=== PATIENT | female | born 1985 | race Caucasian/White ===

== ENCOUNTER 2021-12-25 09:45 | Emergency (ER) | payer OTHER, SELFPAY ==
[2021-12-25 09:48] VITALS: PULSE 94; RESP 16; TEMP 36.8; O2SAT 99; BMI 24.5
--- NOTE | 2021-12-25 09:57 | ED_ITS ---
HPI - Extremity Injury (Lower) General Time Seen by Provider: 09:57 Date Seen: 12/25/21 Chief Complaint: Extremity Pain/Injury, Lower Stated Complaint: Fell down stairs, hurt knees Time Seen by Provider: 12/25/21 09:46 Source: patient and RN notes reviewed Mode of arrival: ambulatory Limitations: no limitations History of Present Illness HPI Narrative: Patient is a very pleasant 36-year-old female denies any possibility of who comes to the emergency for evaluation regarding bilateral knee trauma. 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 She initially hit them against the next step and then fell. She states that the left knee has some bruising and is painful but the right knee is really giving her a lot more trouble. She notes that the pain in the right knee is not only over the kneecap but is radiating superiorly and inferiorly. She has been able to ambulate but was limping quite a bit when I visualized her walking into exam room 5. She denies hitting her head or any other injury. She has not taken any medication is receptive to receiving ibuprofen at this time. Movement definitely increases her discomfort. No numbness or tingling. Related Data Home Medications Medication Instructions Recorded Confirmed No Known Home Medications 12/25/21 12/25/21 Allergies Allergy/AdvReac Type Severity Reaction Status Date / Time No Known Drug Allergies Allergy Verified 12/25/21 09:52 Review of Systems Narrative: Patient denies head injury or neck pain. No numbness or tingling. Prodromal symptoms. Simply slipped going up the stairs. [facility] Social History Smoking Status: Current every day smoker What tobacco products do you use: cigarettes Do you use any of these nicotine containing products: None Second hand tobacco smoke exposure: No How often do you have a drink containing alcohol: monthly or less How many standard drinks containing alcohol do you have on a typical day: 1 or 2 How often do you have six or more drinks on one occasion: Less than monthly AUDIT-C Alcohol total score: 2 Non-prescribed substance use: denies use service: No Exam Const: Vital Signs, click to edit/add: Vital Signs - 24 hr 12/25/21 09:48 Temperature 98.2 F Pulse Rate [Left P ulse Oximeter] 94 Respiratory Rate 16 Pulse Oximetry 99 Oxygen Delivery Me thod Room Air Documenting provider has reviewed patient's vital signs: yes Common normals: average body habitus and oriented x3 General appearance: cooperative, in distress (Tearful) and limp HENMT: Common normals: normocephalic Head and scalp: normocephalic Eye: General eye: normal appearance of both eyes Neck & C-Spine: Common normals: full ROM Resp: Common normals: normal respiratory effort Extremity: Other: Left patella with area of mild and localized swelling to kneecap. Linear. No surrounding erythema edema or edema. Right patella shows an area of erythema with some swelling approximately 2 cm in horizontal length by 1 cm in vertical height. No significant effusion or surrounding erythema. Neuro: Common normals: oriented x3 Other: Distally to kneecap sensation motor intact. Course Course Hospital Course: At this time patient stumbled on the steps and had blunt trauma to both patella. Will x-ray left knee with two view and right knee with three view. I have also ordered ibuprofen 600 mg p.o. Vital Signs Vital signs: Initial Vital Signs Temperature 98.2 F 12/25/21 09:48 Temperature Source Temporal Artery Scan 12/25/21 09:48 Pulse Rate 94 12/25/21 09:48 Pulse Rhythm 12/25/21 09:48 Pulse Strength 3+ Normal 12/25/21 09:48 Respiratory Rate 16 12/25/21 09:48 Pulse Oximetry 99 12/25/21 09:48 Oxygen Delivery Method 12/25/21 09:48 Vital Signs Temperature 98.2 F 12/25/21 09:48 Pulse Rate 94 12/25/21 09:48 Respiratory Rate 16 12/25/21 09:48 Pulse Oximetry 99 12/25/21 09:48 Oxygen Delivery Method 12/25/21 09:48 Temperature 98.2 F 12/25/21 09:48 Pulse Rate 94 12/25/21 09:48 Respiratory Rate 16 12/25/21 09:48 Pulse Oximetry 99 12/25/21 09:48 Oxygen Delivery Method 12/25/21 09:48 MDM - Extremity Injury (Lower) MDM Narrative Medical decision making narrative: 1. Soft tissue injury bilateral knees-continue ibuprofen as needed for discomfort. Ice to areas of pain. Knee immobilizer to the right leg as needed for comfort. Patches as needed for comfort. No work today. 2. Disposition- home. Note for work. Follow-up with orthopedics or primary MD for worsening symptoms. Medical Records Medical records narrative: No medical records to review Imaging Data Knees bilateral: Attestation: I have reviewed the pertinent imaging results. My impression: No obvious fracture Radiologist's impression: No obvious fracture Discharge Plan Discharge Clinical Impression: Soft tissue injury of right knee, Soft tissue injury of left knee Patient Disposition: Home, Self-Care Condition: Improved Additional Instructions: Continue to ice both knees. Knee immobilizer on the right for support. Crutches as needed. Follow-up with primary MD or Orthopedics for ongoing pain or difficulty walking. Return to the emergency room as needed. Ibuprofen 600 mg every 6-8 hours as needed. Alternatively Aleve 2 tablets every 12 hours may be used. Do not use these medications in conjunction with each other. Prescriptions: No Action No Known Home Medications Stand Alone Forms: [employer] Info Instructions
--- NOTE | 2021-12-25 10:01 | CRLHL7_ITS ---
For Patients: As a result of the Cures Act, medical imaging exams and procedure reports are released immediately into your electronic medical record. You may view this report before your referring provider. If you have questions, please contact your health care provider. Indication: Fall with knee trauma right greater than left Technique: Left knee 2 views Comparison: None Findings: Bones: Alignment is normal. No fractures or bone lesions. Joint spaces: No joint effusion. Joint spaces are well maintained. No degenerative changes. Soft tissues: Unremarkable. Impression: No sign of acute injury. Dictated by Aidan Vallejo MD @ 12/25/2021 10:28:29 AM (Electronically Signed)
--- NOTE | 2021-12-25 10:01 | CRLHL7_ITS ---
For Patients: As a result of the Cures Act, medical imaging exams and procedure reports are released immediately into your electronic medical record. You may view this report before your referring provider. If you have questions, please contact your health care provider. Indication: Fall with knee trauma right greater than left Technique: Right knee two views Comparison: None Findings: Bones: Alignment is normal. No fractures or bone lesions. Joint spaces: No joint effusion. Joint spaces are well maintained. No degenerative changes. Soft tissues: Unremarkable. Impression: No sign of acute injury. Dictated by Aidan Vallejo MD @ 12/25/2021 10:29:18 AM (Electronically Signed)
[2021-12-25] MEDS: IBUPROFEN 200 MG TABLET 600 MG PO (10:09)
== END 2021-12-25 11:32 | disposition home or self-care (01) ==
PROVIDERS: Emergency Provider Family Medicine
DX: M25.562 Pain in left knee (principal); M25.561 Pain in right knee; W10.8XXA Fall (on) (from) other stairs and steps, initial encounter
CPT/HCPCS: 73560; 73562; 99283; A9270

== ENCOUNTER 2022-01-09 10:36 | Outpatient (RCR) | payer OTHER, SELFPAY | END 2022-02-19 14:28 | disposition home or self-care (01) | PROVIDERS: Visit Provider Orthopaedic Surgery Sports Medicine | DX: S89.91XA Unspecified injury of right lower leg, initial encounter (principal); Z51.89 Encounter for other specified aftercare | CPT/HCPCS: 97162 ==

== ENCOUNTER 2022-02-03 23:13 | Emergency (ER) | payer OTHER, SELFPAY ==
[2022-02-03 23:19] VITALS: BP 115/73; PULSE 105; RESP 16; TEMP 37.2; O2SAT 97; BMI 24.2
[2022-02-03 23:30] VITALS: PULSE 90; RESP 18; O2SAT 99
--- NOTE | 2022-02-03 23:30 | CRLHL7_ITS ---
For Patients: As a result of the Cures Act, medical imaging exams and procedure reports are released immediately into your electronic medical record. You may view this report before your referring provider. If you have questions, please contact your health care provider. Indication: Trauma. Technique: Right knee radiograph, 3 views. Comparison: None. Findings/Impression: Bones: Alignment is normal. No fractures or bone lesions. No sign of acute injury. Joint spaces: Unremarkable. Soft tissues: Unremarkable. Dictated by Darinel Campoverde MD @ 02/03/2022 11:47:58 PM (Electronically Signed)
--- NOTE | 2022-02-03 23:49 | ED_ITS ---
HPI - General Adult General Chief complaint: Extremity Pain/Injury, Lower Stated complaint: Knee injury, swollen and bruise Time Seen by Provider: 02/03/22 23:48 Source: patient Limitations: no limitations History of Present Illness HPI narrative: 36-year-old female coming in today complaining of right knee pain. States that her dogs tripped her up and she fell down the stairs on her hip in right knee. She complains of right knee pain. Denies any hip pain. Denies hitting her head or other injuries. She did have a previous knee injury and has an MRI scheduled this week. Related Data Home Medications Medication Instructions Recorded Confirmed acetaminophen 325 mg capsule 650 mg PO Q6H PRN 01/06/22 02/03/22 (Tylenol) ibuprofen 400 mg tablet 400 mg PO Q8H 01/06/22 02/03/22 Allergies Allergy/AdvReac Type Severity Reaction Status Date / Time No Known Drug Allergies Allergy Verified 02/03/22 23:23 Review of Systems Status of ROS: Reports: 6 or more systems reviewed and unremarkable except as noted in History and below [facility] Social History Smoking Status: Current every day smoker What tobacco products do you use: cigarettes Do you use any of these nicotine containing products: None Second hand tobacco smoke exposure: No How often do you have a drink containing alcohol: 4 or more times a week How many standard drinks containing alcohol do you have on a typical day: 3 or 4 How often do you have six or more drinks on one occasion: Daily or almost daily AUDIT-C Alcohol total score: 9 Non-prescribed substance use: denies use service: No Exam Narrative: Exam Narrative: Well-nourished well-developed patient in no acute distress. Alert and oriented. Answers questions appropriately. Mood and affect are appropriate. HEENT: Normocephalic atraumatic. Pupils are equally round reactive to light. Extraocular muscles are intact. Conjunctivae are moist without any icterus noted. Extremities: Bilateral lower extremities are without edema. Normal DP and PT pulses. Patient has superficial abrasion on the anterior right knee. She has mild swelling of the anterior right knee just distal to the patella. Patella appears to be intact without significant tenderness. She has no tenderness at the quadriceps insertion. There is not appear to be significant joint effusion present. There is no valgus or varus laxity. Anterior drawer is negative. Patient has generalized tenderness throughout the entire knee, from the patella on down. Skin: Well perfused without any obvious rashes. Const: Vital Signs, click to edit/add: Vital Signs - 24 hr 02/03/22 23:19 Temperature 99.0 F Pulse Rate [Left P ulse Oximeter] 105 H Respiratory Rate 16 Blood Pressure [Ri ght Upper Arm] 115/73 Pulse Oximetry 97 Oxygen Delivery Me thod Room Air Course Course Hospital Course: X-ray of the knee was done and was unremarkable. Vital Signs Vital signs: Initial Vital Signs Temperature 99.0 F 02/03/22 23:19 Temperature Source Temporal Artery Scan 02/03/22 23:19 Pulse Rate 105 H 02/03/22 23:19 Respiratory Rate 16 02/03/22 23:19 Blood Pressure 115/73 02/03/22 23:19 Blood Pressure Mean 87 02/03/22 23:19 Blood Pressure Position Sitting 02/03/22 23:19 Pulse Oximetry 97 02/03/22 23:19 Oxygen Delivery Method 02/03/22 23:19 Vital Signs Temperature 99.0 F 02/03/22 23:19 Pulse Rate 105 H 02/03/22 23:19 Respiratory Rate 16 02/03/22 23:19 Blood Pressure 115/73 02/03/22 23:19 Pulse Oximetry 97 02/03/22 23:19 Oxygen Delivery Method 02/03/22 23:19 Temperature 99.0 F 02/03/22 23:19 Pulse Rate 105 H 02/03/22 23:19 Respiratory Rate 16 02/03/22 23:19 Blood Pressure 115/73 02/03/22 23:19 Pulse Oximetry 97 02/03/22 23:19 Oxygen Delivery Method 02/03/22 23:19 Medical Decision Making MDM Narrative Medical decision making narrative: 36-year-old female with knee injury. We discussed symptomatic treatment. We discussed keeping her appointment as scheduled for MRI. Discussed icing [id number] NSAIDs. She had no other questions Imaging Data Knee x-ray: Attestation: I have reviewed the pertinent imaging results. My impression: No acute findings Radiologist's impression: Right knee radiograph, 3 views. Comparison: None. Findings/Impression: Bones: Alignment is normal. No fractures or bone lesions. No sign of acute injury. Joint spaces: Unremarkable. Soft tissues: Unremarkable. Discharge Plan Discharge Clinical Impression: Injury of knee Patient Disposition: Home, Self-Care Condition: Stable Additional Instructions: Elevate the knee as much as possible. Ice 20 minutes at a time 3-4 times per day, do not apply ice directly to skin. Okay to take ibuprofen or Tylenol as directed/as needed for discomfort. Activity as tolerated. Prescriptions: No Action ibuprofen 400 mg tablet 400 mg PO Q8H acetaminophen [Tylenol] 325 mg capsule 650 mg PO Q6H PRN Follow Up/Referrals: Provider,Not a Local [Primary Care Provider] - Stand Alone Forms: [employer] Info Instructions
--- OUTSIDE RECORDS SUMMARY | 2022-02-03 23:56 | XMS_ITS | Encounter Summary ---
:1985 Author Organization [facility] Address [address] [place] [address] Care Team Providers Name Role Phone Unavailable Primary Care Provider Unavailable Encounter Details Date Type Department Care Team Description 02/19/2016 Hospital Encounter HX [facility] [place] Jg Soria M.D. [address] [place] [phone] (Wo rk) Social History Tobacco Use Types Packs/Day Years Used Date Smoking Tobacco: Never Assessed Sex Assigned at Date Recorded Not on file documented as of this encounter Last Filed Vital Signs Vital Sign Reading Time Taken Comments Blood Pressure 127/88 02/19/2016 1:57 PM CDT Pulse 98 02/19/2016 1:57 PM CDT Temperature - - Respiratory Rate - - Oxygen Saturation - - Inhaled Oxygen Concentration - - Weight 90.2 kg (198 lb 13.7 oz) 02/19/2016 1:57 PM CDT Height 169 cm (5' 6.54) 02/19/2016 1:57 PM CDT Body Mass Index 31.58 02/19/2016 1:57 PM CDT documented in this encounter Progress Notes Qasim Soria M.D. - 02/19/2016 1:49 PM CDT [id number] The patient presented here today for followup of weight loss. She reports doing well with the phentermine. She has since changed her diet significantly. She does report chronic intermittent constipation. She has been using [id number] medications for improvement. She denies any difficulty with sle eping, but she does have occasional lightheadedness. No tremor. No headaches, blurry vision is reported. PAST MEDICAL/SURGICAL HISTORY GERD. MEDICATIONS Phentermine. PHYSICAL EXAMINATION VITAL SIGNS: Temp 36.4, heart rate 98, BP 127/88. Weight of 90.2 kg. IMPRESSION/REPORT/PLAN Bcnjqu-vslsz-dtew-old female, past medical history significant for obesity, is seen here today for weight management. Patient did well on the phentermine. She will be completing her last month today. We have discussed the importance of continuing with the current diet and increase her activity to avoid regaining the weight back. She voiced understanding. She will be staying off the medications for the next 2 months and we will discuss whether or not we should resume this medication in the future. Follow up as needed. Qasim Soria M.D./guillermo Electronically Signed By: QASIM SORIA MD On: 03/05/2016 10:49 AM Source: [facility] MHSDOLBEYNONRADSYS Document Id: [id number] documented in this encounter Miscellaneous Notes Miscellaneous - Conversion, Historical Provider Ser - 06/23/2016 11:27 AM MANAGER PET *PRIOR AUTH Document Contains Addenda Addendum by EVELYNE WEINBERG LPN on June 30, 2016 11:51:13 MANAGER PET called [facility] pharmacy and spoke with pharmacist, states that it has been processed through just fine. From: A[place] DUVAL To: YADIRA Wilkerson Nurse; Sent: 06/23/2016 11:27:48 MANAGER PET Subject: *PRIOR AUTH Provider: Khalif Wilkerson Pharmacy: [facility] Medication: Hydromorphone HCL Comments: Prior auth needed. Please go to [email or web address]. Gan code: YCMXJN : 1985 Source: [facility] POWERCHART Document Id: [id number] Miscellaneous - Qasim Soria M.D. - 02/19/2016 8:22 PM CDT Ambulatory Discharge Medication List [facility] [address] [place], [place] [id number] Visit Information Name: RADHA BLANCHARD [facility] Number: [id number] Current Date: 02/19/2016 20:22:41 Attending Provider: QASIM SORIA MD Primary Care Provider: QASIM SORIA MD [phone] RADHA BLANCHARD has been given the following list of medications: Your Medications It is important to take your medications as directed. Use a pill box or chart to help remind you to take your medications. Please let your doctor or nurse know if you have problems taking your medications. Medication/Strength How to Take Indications/Special Instructions/Comments/Notes for Patient Medication Changes/Routing phentermine (phentermine 37.5 mg oral tablet) 1 Tablet(s), Oral, once a day x 30 day(s) Stop Taking the Following Medications: Medication list as of 02-19-16 20:22 Attention: If you have any medications at home that are not on this list, DO NOT take them until youcontact your provider for clarification. Give a copy of your medication list to your primary care provider. Update your medication list any time medications or doses are changed and carry your medication list at all times in case of emergency. Electronically Signed By: QASIM SORIA MD Signed On:19-FEB-2016 20:22:39 Additional Information: Source: [facility] POWERCHART Document Id: [id number] Miscellaneous - Qasim Soria M.D. - 02/19/2016 8:22 PM CDT Ambulatory Patient Summary [facility] [address] [place], [place] [id number] Visit Information Name: RADHA BLANCHARDN [facility] Number: [id number] Current Date: 02/19/2016 20:22:42 Physicians Attending Provider: QASIM SORIA MD Primary Care Provider: QASIM SORIA MD [phone] RADHA BLANCHARD has been given the following list of follow-up instructions, medication list, and patient education materials: Follow-up Instructions Your Medications Here is a list of your medications. It is important to take your medications as directed. Use a pillbox or chart to help remind you to take your medications. Please let your doctor or nurse know if you have problems taking your medications. Medication/Strength How to Take Indications/Special Instructions/Comments/Notes for Patient Medication Changes/Routing phentermine (phentermine 37.5 mg oral tablet) 1 Tablet(s), Oral, once a day x 30 day(s) Stop Taking the Following Medications: Medication list as of 02-19-16 20:22 Attention: If you have any medications at home that are not on this list, DO NOT take them until youcontact your provider for clarification. Give a copy of your medication list to your primary care provider. Update your medication list any time medications or doses are changed and carry your medication list at all times in case of emergency. Electronically Signed By: QASIM SORIA MD Signed On:19-FEB-2016 20:22:39 Your Allergies & Intolerances Substance Reaction Symptoms Category Comments No Known Allergies Drug Your Problem List Problem Status Onset Comments Disease Gastroesophageal Reflux (GERD ERMELINDA) Active Your Upcoming Appointments Date Time Location Provider No Appointments found Attention: Contact your local Clinic if further appointment detail needed. Consider Using Patient Online [facility] Patient Online [employer] is a secure online and Mobile application that lets you: ?? View lab and test results ?? View portions of your medical record including clinical notes, immunizations and discharge summaries ?? Request an appointment or medication refill ?? Review your appointment schedule ?? Send secure messages to your care team Its easy to create an account if you dont have one. Go to [email or web address] and click on Create Your Account. Then, follow the directions to complete the online form. Youll be asked for your [facility] number which you can find at the top of this document. 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 Entered On: 02/19/2016 13:58 CDT Performed On: 02/19/2016 13:57 CDT by RASHMI SALTER [facility] Intake Ambulatory Intake Additional Information : 135/90, 97 127/88, 98 Peripheral Pulse Rate : 98 /min Systolic Blood Pressure : 127 mmHg Diastolic Blood Pressure : 88 mmHg NIBP Mean : 101 mmHg RASHMI SALTER [facility] - 02/19/2016 13:59 CDT Chief Complaint : weightloss update Temperature Core : 36.4 DegC(Converted to: 97.5 DegF) (LOW) BP Location : Left upper extremity Blood Pressure Cuff Size : Regular Height : 169 cm(Converted to: 5 ft 7 inch(es), 67 inch(es)) Actual Weight : 90.2 kg(Converted to: 198 lb 14 oz) Weight Source : Standing scale Dosing Weight Clinic : 90.2 kg Clinic BSA : 2.06 Body Mass Index : 31.58 kg/m2 RASHMI SALTER [facility] - 02/19/2016 13:57 CDT General Info Information Given By : Patient Preferred Communication Mode : Verbal Languages : Qatari Is Patient Female and 13-50 no hysterectomy : Yes Status : Patient denies Are you ? : No RASHMI SALTER [facility] - 02/19/2016 13:57 CDT Subjective Pain Symptoms : No RASHMI SALTER [facility] - 02/19/2016 13:57 CDT Dependent Habits Exposure to Tobacco Smoke : Patient smokes, Other: occ alcohol Smoking Status : Current every day smoker Tobacco 2A : Yes Tobacco Use/Currently Using : Yes Tobacco Use/Last 30 Days : Yes Tobacco Use/Last 12 months : Yes Type : Cigarettes: Less than 20 per day Tobacco Use/Advised to Quit : Yes RASHMI SALTER [facility] - 02/19/2016 13:57 CDT Caffeine Use Grid Caffeine Use : None RASHMI SALTER [facility] 02/19/2016 13:57 CDT Recreational Drug Use Grid Drug Use : Current Type : Alcohol Route : Oral Frequency : Other: TWICE A MONTH RASHMI SALTER [facility] 02/19/2016 13:57 CDT [facility] Document Id: [id number] CDT!7 documented in this encounter Plan of Treatment Not on filedocumented as of this encounter Visit Diagnoses Not on filedocumented in this encounter
--- OUTSIDE RECORDS SUMMARY | 2022-02-03 23:56 | XMS_ITS | Encounter Summary ---
:1985 Author Organization [facility] Address [address] [place] [address] Care Team Providers Name Role Phone Unavailable Primary Care Provider Unavailable Encounter Details Date Type Department Care Team Description 05/12/2016 Hospital Encounter HX [facility] Augusto Parks M.D. [address] [place], [place] [address] (Wo rk) Social History Tobacco Use Types Packs/Day Years Used Date Smoking Tobacco: Every Day Sex Assigned at Date Recorded Not on file documented as of this encounter Last Filed Vital Signs Vital Sign Reading Time Taken Comments Blood Pressure 129/78 05/12/2016 2:35 PM ROLL OFF DRIVER Pulse 99 05/12/2016 2:35 PM ROLL OFF DRIVER Temperature - - Respiratory Rate 20 05/12/2016 2:35 PM ROLL OFF DRIVER Oxygen Saturation - - Inhaled Oxygen Concentration - - Weight 82.3 kg (181 lb 7 oz) 05/12/2016 2:35 PM ROLL OFF DRIVER Height 169 cm (5' 6.54) 05/12/2016 2:35 PM ROLL OFF DRIVER Body Mass Index 28.82 05/12/2016 2:35 PM ROLL OFF DRIVER documented in this encounter Progress Notes Bacilio Parks M.D. - 05/12/2016 2:30 PM CST [id number] CHIEF COMPLAINT/REASON FOR VISIT Hemorrhoids. HISTORY OF PRESENT ILLNESS Silvia is a 30-year-old, G5, P5, who has battled intermittent external hemorrhoids for years. She regularly has little bit of blood when she wipes and sometimes even looks like a fair amount of bleeding. She has not felt lightheaded or woozy. She can sometimes feel bulge. She will intermittently use Preparation-H. She is wondering what else can be done for this. CHRONIC PROBLEMS Reviewed. MEDICATIONS Reviewed. ALLERGIES None. SOCIAL HISTORY Smokes daily. PAST MEDICAL/SURGICAL HISTORY Procedure history reviewed. PHYSICAL EXAMINATION GENERAL: A 30-year-old female in no acute distress. VITAL SIGNS: Temperature is 36.3 degrees Celsius, pulse 99, respiratory rate 20, blood pressure 129/78, weight 82.3 kg. Body mass index 28.9. RECTAL: There are ttarq-yt-ovvfzcpi external hemorrhoids. None are thrombosed. There are no fissures, tears, other perianal lesions. SKIN: No perianal rash. IMPRESSION/REPORT/PLAN 1. External hemorrhoids, 2. Health maintenance plan. I discussed that I think if she were to use Preparation-H at least twicea day on a scheduled basis and if she even has bleeding after wiping after that, start xfof-tdz-ttkjlap fiber supplement of her choice daily and jbyg-hjh-pmvynqs, generic MiraLAX daily titrating to 1 lo iqh-xr-jfeptfw formed bowel movement. I think these will markedly improve within 1 to 2 months. We discussed that if she starts to fall away from that regimen or starts to become more constipated, these may recur, but at this point I do not think she needs to see a surgeon about them. I also do not think the degree of blood loss she is describing is enough to warrant laboratory work at this time. Sheis comfortable with that. If after 1 to 2 months of this full court press regimen does not cause improvement, she will make an appointment with General Surgery for definitive treatment as she is donehaving children. 3. Influenza and Pneumovax administered today. Encouraged smoking cessation. Note she is due for a physical. She will schedule that at her earliest convenience with Dr. Soria. Bacilio Parks M.D./guillermo Electronically Signed By: BACILIO PARKS MD On: 05/14/2016 08:05 AM Source: [facility] MHSDOLBEYNONRADSYS Document Id: [id number] OFF DRIVER documented in this encounter Miscellaneous Notes Miscellaneous - Conversion, Historical Provider Ser - 07/01/2016 11:24 AM ROLL OFF DRIVER *PRIOR AUTHORIZATION Document Contains Addenda Addendum by GAYLE CAMARENA MD, PhD on July 03, 2016 17:39:57 ROLL OFF DRIVER From: GAYLE CAMARENA MD, PhD To: YADIRA Camarena Nurse; Sent: 07/03/2016 17:39:57 ROLL OFF DRIVER Subject: RE: *PRIOR AUTHORIZATION Yes. The hydromorphone was denied by her insurance. Thanks. 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 Do you still want this rx filled? From: JOSUE LYNN ([facility] Bobbin Cleaner) To: YADIRA Dial Nurse; Sent: 07/01/2016 11:24:06 ROLL OFF DRIVER Subject: *PRIOR AUTHORIZATION Provider:Dr Camarena Pharmacy:[facility] Medication:HYDROMORPHONE HCL Comments: Prior authorization needed. Go to [employer] - Gan: [id number] :1985 Source: [facility] POWERCHART Document Id: [id number] Miscellaneous - Janett Schofield R.N. - 06/15/2016 3:59 PM CST Addendum by TERI DONIS RN on June 16, 2016 12:01:03 ROLL OFF DRIVER noted, thank you. Addendum by GAYLE CAMARENA MD, PhD on June 16, 2016 11:58:33 ROLL OFF DRIVER From: GAYLE CAMARENA MD, PhD To: [place] [facility] Nurse Line; BOBBI ASHBY RN MILKING MACHINE OPERATOR; Cc: [place] General Surgery Nurse; Sent: 06/16/2016 11:58:33 ROLL OFF DRIVER Subject: RE: She was admited to [place] overnight. Addendum by TERI DONIS RN on June 16, 2016 08:03:12 ROLL OFF DRIVER message was left for patient to call back. I will offer f/u with bobbi today. Addendum by BOBBI ASHBY RN MILKING MACHINE OPERATOR on June 16, 2016 07:55:23 ROLL OFF DRIVER From: BOBBI ASHBY RN MILKING MACHINE OPERATOR To: [place] [facility] Nurse Line; Cc: [place] General Surgery Nurse; GAYLE CAMARENA MD, PhD; Sent: 06/16/2016 07:55:23 ROLL OFF DRIVER Subject: RE: I will see her today please. Addendum by KIN BORJAS CMA on June 15, 2016 16:36:05 ROLL OFF DRIVER From: KIN BORJAS CMA ([place] General Surgery Nurse) To: GAYLE CAMARENA MD, PhD; Sent: 06/15/2016 16:36:05 ROLL OFF DRIVER Subject: FW: From: JANETT SCHOFIELD RN ([place] [facility] Nurse Line) To: [place] General Surgery Nurse; BOBBI ASHBY RN MILKING MACHINE OPERATOR; Sent: 06/15/2016 15:59:31 ROLL OFF DRIVER Pt calls stating she had a hemorrhoidectomy with Dr. Garner 2 weeks ago. she calls wondering if itis normal to still be bleeding. menses ended two days ago which lasted for four days. When asked about how much blood there has been, pt stated that when she stands over the toilet, she can see it dripping which is a bright red, with a yellowish discharge. Denies any shortness of breath, but did stateshe became dizzy after having a bowel movement this a.m, where she was in so much pain that she became dizzy afterward and had to lay down, but denies dizziness otherwise. Denies stomach cramping or distention. Please advise. Will call pt at # [phone]. Source: [employer]nex[employer] Document Id: [id number] Electronically signed by Conversion, [facility] Chick Room Supervisor [id number] at 10/12/2016 9:55 PM CDT Miscellaneous - Conversion, Historical Provider Ser - 05/27/2016 4:25 PM ROLL OFF DRIVER *General Message Document Contains Addenda Addendum by TRLEL BUNN on May 28, 2016 12:13:49 ROLL OFF DRIVER See other msgs. Closing message. From: ERA SMITH ( Call Center Injection Operator) To: Specialty Care Analyst; Sent: 05/27/2016 16:25:18 ROLL OFF DRIVER Subject: *General Message Caller Name/Relationship Vlad Blanchard [facility]/Wing Call Back # [phone] Reason For Call returning call to schedule appt with surgeon [facility] Document Id: [id number] Miscellaneous - Conversion, Historical Provider Ser - 05/27/2016 12:23 PM ROLL OFF DRIVER Surgery Document Contains Addenda Addendum by TRELL BUNN on May 27, 2016 16:04:33 ROLL OFF DRIVER Returned call to spouse awhile back aware we need to wait for the scheduling guidelines from nurse.Added to other msg. From: NADEEM DIEGO ( Call Center Injection Operator) To: Specialty Care Analyst; Sent: 05/27/2016 12:23:07 ROLL OFF DRIVER Subject: Surgery Caller Name/Relationship Vlad Blanchard/ [facility] Facility/Wing Call Back # [phone] Reason For Call Please see previous messages States his in a lot of pain and needs this procedure tank. Please call tank Source: [facility] POWERCHART Document Id: [id number] Miscellaneous - Conversion, Historical Provider Ser - 05/27/2016 7:58 AM ROLL OFF DRIVER *General Message Document Contains Addenda Addendum by TRELL BUNN on May 27, 2016 08:10:27 ROLL OFF DRIVER Returned call. Aware we received referral and awaiting response from nurse for scheduling guidelines. Closing message. From: NADEEM DIEGO ( Call Center Injection Operator) To: Specialty Care Analyst; Sent: 05/27/2016 07:58:47 ROLL OFF DRIVER Subject: *General Message Caller Name/Relationship Vlad Blanchard/ Facility/Wing Call Back # [phone] Reason For Call Pt was in the ER for Hemorrhoids and she Needs to set up an appt. with a Surgeon Source: [facility] M[place]ie JeanCHART Document Id: [id number] Miscellaneous - Radha Otto C.M.A. - 05/12/2016 3:52 PM CST MnVFC Eligibility MnVFC Eligibility Entered On: 05/12/2016 15:52 ROLL OFF DRIVER Performed On: 05/12/2016 15:52 ROLL OFF DRIVER by RADHA OTTO CMA MnV[facility] Eligibility Provided MnVFC eligibility information : No RADHA OTTO CMA - 05/12/2016 15:52 ROLL OFF DRIVER Source: [facility] POWERCHART Document Id: [id number] ROLL OFF DRIVER!3 OFF DRIVER Miscellaneous - Radha Otto C.M.A. - 05/12/2016 3:50 PM CST MnVFC Eligibility MnVFC Eligibility Entered On: 05/12/2016 15:50 ROLL OFF DRIVER Performed On: 05/12/2016 15:50 ROLL OFF DRIVER by RADHA OTTO CMA MnVFC Eligibility Provided MnVFC eligibility information : No BIANCA OTTORA [place] [facility] - 05/12/2016 15:50 ROLL OFF DRIVER Source: [facility] POWERCHART Document Id: [id number] ROLL OFF DRIVER!3 OFF DRIVER Miscellaneous - Bacilio Parks M.D. - 05/12/2016 3:38 PM CST Ambulatory Patient Summary [facility] [address] [place], [place] [id number] Visit Information Name: SILVIA BLANCHARD [facility] Number: [id number] Current Date: 05/12/2016 15:38:56 Physicians Attending Provider: BACILIO PARKS MD Primary Care Provider: SOFIE SORIA MD [id number] SILVIA BLANCHARD has been given the following list [...] Medication Changes/Routing phentermine (phentermine 37.5 mg oral capsule) 1 cap, Oral, once a day Stop Taking the Following Medications: Medication list as of 05-12-16 15:38 Attention: If you have any medications at home that are not on this list, DO NOT take them until youcontact your provider for clarification. Give a copy of your medication list to your primary care provider. Update your medication list any time medications or doses are changed and carry your medication list at all times in case of emergency. Electronically Signed By: BACILIO PARKS MD Signed On:12-MAY-2016 15:38:52 Your Allergies & Intolerances Substance Reaction Symptoms Category Comments No Known Allergies Drug Your Problem List Problem Status Onset Comments Disease Gastroesophageal Reflux (GERD ERMELINDA) Active Hemorrhoids External NOS Active Abuse Tobacco Smoking NOS Active Your Upcoming Appointments Date Time Location [...] if you dont have one. Go to [email or web address] and click on Create Your Account. Then, follow the directions to complete the online form. Youll be asked for your [facility] number which you can find at the top of this document. Your Goals/Additional instructions: Source: [facility] POWERCHART Document Id: [id number] OFF DRIVER Miscellaneous - Bacilio Parks M.D. - 05/12/2016 3:38 PM CST Ambulatory Discharge Medication List [address] [id number] Visit Information Name: BLANCHARDSERGEISILVIAADRIENNE MALIK [facility] Number: [id number] Current Date: 05/12/2016 15:38:56 Attending Provider: BACILIO PARKS MD Primary Care Provider: SOFIE SORIA MD [id number] SILVIA BLANCHARD has been given the following list of medications: Your Medications It is important to take your medications as directed. Use a pill box or chart to help remind you to take your medications. Please let your doctor or nurse know if you have problems taking your medications. Medication/Strength How to Take Indications/Special Instructions/Comments/Notes for Patient Medication Changes/Routing phentermine (phentermine 37.5 mg oral capsule) 1 cap, Oral, once a day Stop Taking the Following Medications: Medication list as of 05-12-16 15:38 Attention: If you have any medications at home that are not on this list, DO NOT take them until youcontact your provider for clarification. Give a copy of your medication list to your primary care provider. Update your medication list any time medications or doses are changed and carry your medication list at all times in case of emergency. Electronically Signed By: BACILIO PARKS MD Signed On:12-MAY-2016 15:38:52 Additional Information: Source: [facility] POWERCHART Document Id: [id number] OFF DRIVER Miscellaneous - Radha Otto C.M.A. 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 Intake/History Entered On: 05/12/2016 14:38 ROLL OFF DRIVER Performed On: 05/12/2016 14:35 ROLL OFF DRIVER by RADHA OTTO SOFA COVER INSPECTOR Intake Chief Complaint : Hemorrhoids Temperature Core : 36.3 DegC(Converted to: 97.3 DegF) (LOW) Peripheral Pulse Rate : 99 /min Respiratory Rate : 20 /min Systolic Blood Pressure : 129 mmHg Diastolic Blood Pressure : 78 mmHg NIBP Mean : 95 mmHg BP Location : Left upper extremity Blood Pressure Cuff Size : Regular Height : 169 cm(Converted to: 5 ft 7 inch(es), 67 inch(es)) Actual Weight : 82.3 kg(Converted to: 181 lb 7 oz) Weight Source : Standing scale Dosing Weight Clinic : 82.3 kg Clinic BSA : 1.97 Body Mass Index : 28.82 kg/m2 RADHA OTTO [facility] - 05/12/2016 14:35 ROLL OFF DRIVER General Info Information Given By : Patient Languages : Amharic Is Patient Female and 13-50 no hysterectomy : Yes Status : Patient denies Are you ? : No RADHA OTTO CMA - 05/12/2016 14:35 ROLL OFF DRIVER Subjective Pain Symptoms : Yes RADHA OTTO CMA - 05/12/2016 14:35 ROLL OFF DRIVER Pain Scale Pain Scale Verbal 0-10 : Open RADHA OTTO CMA - 05/12/2016 14:35 ROLL OFF DRIVER Pain Pain Assessment Grid Pain 1 Location : Other: Hemorrhoids Intensity : 4 RADHA OTTO CMA - 05/12/2016 14:35 ROLL OFF DRIVER Dependent Habits Exposure to Tobacco Smoke : Patient smokes, Other: occ alcohol Smoking Status : Current every day smoker Tobacco 2A : Yes Tobacco Use/Currently Using : Yes Tobacco Use/Last 30 Days : Yes Tobacco Use/Last 12 months : Yes Type : Cigarettes: Less than 20 per day Tobacco Use/Advised to Quit : Yes RADHA OTTO CMA - 05/12/2016 14:35 ROLL OFF DRIVER Caffeine Use Grid Caffeine Use : None RADHA OTTO [facility] - 05/12/2016 14:35 ROLL OFF DRIVER Recreational Drug Use Grid Drug Use : Current Type : Alcohol Route : Oral Frequency : Other: TWICE A MONTH RADHA OTTO [facility] - 05/12/2016 14:35 ROLL OFF DRIVER Source: [facility] j-Grab Document Id: [id number] ROLL OFF DRIVER!50 OFF DRIVER documented in this encounter Plan of Treatment Not on filedocumented as of this encounter Visit Diagnoses Not on filedocumented in this encounter
--- OUTSIDE RECORDS SUMMARY | 2022-02-03 23:56 | XMS_ITS | Encounter Summary ---
:1985 Author Organization [facility] Address [address] [place] [address] Care Team Providers Name Role Phone Unavailable Primary Care Provider Unavailable Encounter Details Date Type Department Care Team Description 05/27/2016 Hospital Encounter HX [facility] ED Mimi Vicente D.O. [address] [place] [phone] (Wo rk) Social History Tobacco Use Types Packs/Day Years Used Date Smoking Tobacco: Every Day Sex Assigned at Date Recorded Not on file documented as of this encounter Last Filed Vital Signs Vital Sign Reading Time Taken Comments Blood Pressure 139/77 05/27/2016 3:40 AM [facility] Pulse 110 05/27/2016 3:40 AM [facility] Temperature - - Respiratory Rate 18 05/27/2016 3:40 AM [facility] [facility] Oxygen Saturation - - Inhaled Oxygen Concentration - - Weight - - Height - - Body Mass Index - - documented in this encounter Discharge Summaries Mimi Vicente D.O. - 05/30/2016 12:05 PM CST ED Discharge Instructions [facility] [address] [facility] [place] [address] Name: SILVIA BLANCHARD Date of : 1985 12:00 AM Visit Date: 05/27/2016 3:31 AM [facility] Number: [id number] Address: [address] [place] [phone] Primary Care Provider: SOFIE VÁZQUEZ MD IMPORTANT: [facility] in [place] would like to thank you for allowing us to assist youwith your healthcare needs. The following includes patient education materials and information regarding your injury/illness. Diagnosis: Follow-Up Instructions: With: Address: When: *Follow Up with Surgery Within 2 - 4 days Comments: Symptomatic external hemorrhoids With: Address: When: SOFIE VÁZQUEZ [address] [place] [address] [phone] Business (1) Within As Needed Your Upcoming Appointments: Date Time Location Provider 06/02/2016 08:30 AMADO Wilkerson MD, Khalif Lino Patient Education Materials: Hemorrhoids,External A hemorrhoid is a local swelling of the veins around the rectum. These most often occur from repeated forceful straining during bowel movements or heavy lifting. It may also occur in the last few months of . A hemorrhoid feels like a soft lump. It may itch from time to time. When it is inflamed it becomes hard and very painful. Home Care: SITZ BATHS: Sit in a tub filled with about 6 inches of hot water. Allow the water to run in order tokeep it hot for a total of 10-15 minutes. Repeat this three times a day until pain is relieved. Keep your stools soft to avoid the need to strain when having a bowel movement. Unless another medicine was prescribed, try the following: IF YOU ARE CONSTIPATED: You may use gcnn-jkk-zzrpdxo laxatives such as MILK OF MAGNESIA (mild acting) or, DULCOLAX (if stronger action is needed). IF YOU ARE NOT CONSTIPATED but stools are hard, try taking Colace (docusate sodium) which is a stoolsoftener. This will soften stools without producing diarrhea. Drinking extra fluids may also help. The use of creams applied to the hemorrhoid itself, such as ANUSOL or PREPARATION H, will be helpfulto reduce pain and itching, and speed healing. Prevention: Avoid straining on the toilet by keeping stools soft. Increasing FIBER in your diet (fruits, cereals, vegetables and grains) will promote healthy bowel movement. If this is not working, you may use METAMUCIL and similar products. These are idea-dxh-yqxvbkn fiber supplements. You must drink extra fluids when taking these to avoid constipation. Follow Up with your doctor if you do not begin to respond to the above treatment within the next few days. Get Prompt Medical Attention if any of the following occur: ?? Large amount of rectal bleeding (more than 1 cup of blood in 24 hours) ?? Increasing rectal pain or rectal pain that continues for more than three days of treatment ?? Weakness, dizziness or fainting ?? Vomiting blood (red or black color) ?? [id number] Lennie Swain, [address] [place] [address], [place] [address]. All rights reserved. This information is not intended as a substitute for professional medical care. Always follow your healthcare professional's instructions. Consider Using Patient Online Services Patient Online [...] if you dont have one. Go to [email or web address] and click on Create Your Account. Then, follow the directions to complete the online form. Youll be asked for your [facility] number which you can find at the top of this document. ED Tests and Procedures: Order Sta tus Follow Up with Surgery Completed Discharge Prescriptions & Home Medications: Medication/Strength Dose Route Frequency Indications/Special Instructions/Comments/Notes oxyCODONE-acetaminophen (oxyCODONE-acetaminophen 5 mg-325 mg oral tablet) 1 tab(s) Oral every 6 hours as needed for Pain PYXIS DISCHARGE PACK No more than 4,000mg acetaminophen/24hrs phentermine (phentermine 37.5 mg oral capsule) 37.5 mg Oral once a day Comment: Attention: If you have any medications at home that are not on this list, DO NOT take them until youcontact your provider for clarification. Give a copy of your medication list to your primary care provider. Update your medication list any time medications or doses are changed and carry your medication list at all times in case of emergency. IMPORTANT: We examined and treated you today on an emergency basis only. This was not a substitute for, or an effort to provide, complete medical care. In most cases, you must let your doctor check youagain. Tell your doctor about any new or lasting problems. We cannot recognize and treat all injuries or illnesses in one Emergency Department visit. If you had special tests, such as EKG's or X- rays, we will review them again within 24 hours. We will call you if there are any new suggestions. Please follow the instructions above carefully. If you are a patient that is being discharged from the Emergency Department after receiving narcotics or other medications that may impair your judgment you may be a risk to yourself or others if you operate a motor vehicle. We recommend that you arrange a ride home with a responsible green party. LO Ward KRISTINA LYNN , or responsible green party have received this information and my questions have been answered. I have discussed any challenges I see with this plan with the nurse or physician. Patient Signature or Responsible Republican/Relationship Date Time Provider Signature Date Time IMPORTANT: We examined and treated you today on an emergency basis only. This was not a substitute for, or an effort to provide, complete medical care. In most cases, you must let your doctor check youagain. Tell your doctor about any new or lasting problems. We cannot recognize and treat all injuries or illnesses in one Emergency Department visit. If you had special tests, such as EKG's or X- rays, we will review them again within 24 hours. We will call you if there are any new suggestions. Please follow the instructions above carefully. If you are a patient that is being discharged from the Emergency Department after receiving narcotics or other medications that may impair your judgment you may be a risk to yourself or others if you operate a motor vehicle. We recommend that you arrange a ride home with a responsible green party. LO Ward KRISTINA LYNN , or responsible green party have received this information and my questions have been answered. I have discussed any challenges I see with this plan with the nurse or physician. Patient Signature or Responsible Republican/Relationship Date Time Provider Signature Date Time This document has images extracted. Please consider using Jimmy Fairly for all your patient education needs. Source: [employer] Document Id: [id number] STS' MODEL Mimi Vicente D.O. - 05/30/2016 12:05 PM CST ED Depart Summary [facility] Emergency Department / Urgent Care Clinical Discharge Summary PERSON INFORMATION Name SILVIA BLANCHARD Age 31 Years 1985 12:00 AM Sex Female Language Welsh PCP SOFIE VÁZQUEZ MD Marital Status Visit Id Visit Reason Hemorrhoids; Hemorrhoids Specialty Enc Type Emergency Med Service Emergency Medicine Referred by Track Group [facility] ED/UC Discharge 05/27/2016 4:47 AM Tracking Id [id number] Checkout 05/27/2016 4:47 AM Checkin 05/27/2016 3:31 AM Acuity 5 -Non Urgent Dispo Type * Discharged to Home or Self Care Arrival 05/27/2016 3:31 AM Reg Status Complete LOS 000 01:16 Address: [address] [place] [phone] Comment: PROVIDER INFORMATION Provider Role Provider Contact Time DEVI RAZA RN ED Nurse 05/27/16 03:37 MIMI VICENTE DO ED Provider 05/27/16 03:38 DEEPTI FOY C.N.A. ED Wood Heel Fitter Machine 05/27/16 04:01 DIAGNOSIS Comment: PATIENT EDUCATION INFORMATION Instructions: HEMORRHOIDS Follow up: With: Address: When: *Follow Up with Surgery Within 2 - 4 days Comments: Symptomatic external hemorrhoids With: Address: When: SOFIE VÁZQUEZ [address] [place] [phone] Business (1) Within As Needed Source: [employer] Document Id: [id number] STS' MODEL documented in this encounter ED Notes Devi Raza R.N. - 05/27/2016 4:47 AM CST ED Disposition Summary ED Disposition Summary Entered On: 05/27/2016 4:52 [facility] Performed On: 05/27/2016 4:47 [facility] by DEVI RAZA READING TEACHER Disposition Summary Present in Room During Exam/Procedure : Spouse Mode of Discharge : Ambulatory Transportation : Private vehicle Discharge From ED With : Home Med List Printed Discharge Instructions Given to Patient : Yes Patient Status at Discharge from ED : Improved Comment : pt recommended to use tuck pads and prep H DEVI RAZA RN - 05/27/2016 4:51 [employer]DEL Source: [employer] Document Id: [id number] ARTISTS' MODEL!9 STS' MODEL Devi Raza R.N. - 05/27/2016 4:47 AM CST ED Pain Assessment ED Pain Assessment Entered On: 05/27/2016 4:52 [facility]DEL Performed On: 05/27/2016 4:47 [facility] by DEVI RAZA RN Pain Assessment Pain Symptoms : Yes DEVI RAZA RN - 05/27/2016 4:52 [employer]DEL Source: [employer] Document Id: [id number] ARTISTS' MODEL!3 STS' MODEL Mimi Vicente D.O. - 05/27/2016 3:49 AM CST Hemorrhoids Patient: SILVIA BLANCHARD Age: 31 years Sex: Female : 1985 Author: MIMI VICENTE DO Attachments: None Basic Information History source: Patient. Arrival mode: Private vehicle. History limitation: None. Additional information: Chief Complaint from Nursing Triage Note : Chief Complaint Description 05/27/2016 3:35 [facility]ISTS[employer] MODEL Chief Complaint Description Pt reports she has hemorrhoids. Tonight, one was bleeding. She states she has many and they are painful. She is using prepiration H . History of Present Illness The patient presents with hemorrhoids. The onset was 1 weeks ago. The course/duration of symptoms isconstant and worsening. The degree of symptoms is moderate. There are exacerbating factors includingbowel movement, bearing down and movement. Therapy today: over the counter medications. Associated symptoms: none. Review of Systems Constitutional symptoms: No fever. Gastrointestinal symptoms: Rectal bleeding and rectal pain, but no abdominal pain, no vomiting, no diarrhea or no constipation. Musculoskeletal symptoms: No back pain. Neurologic symptoms: No headache. Health Status Allergies: Allergic Reactions (Selected) NKA. Past Medical/ Family/ Social History Medical history: Reviewed as documented in chart. Surgical history: Esophagogastroduodenoscopy ([id number]) on 08/12/2015 at 30 Years. Tubal ligation ([id number]) on 07/16/2011 at 26 Years.. Family history: No family history items have been selected or recorded.. Physical Examination Vital Signs: Vital Signs 05/27/2016 3:40 [facility]ISTS[employer] [facility]DEL Temperature Core 36.4 DegC LOW Peripheral Pulse Rate 110 /min HI Respiratory Rate 18 /min SpO2 98 % Systolic Blood Pressure 139 mmHg Diastolic Blood Pressure 77 mmHg , SpO2 05/27/2016 3:40 [facility]DEL SpO2 98 % . General: Alert. Skin: Warm and dry. Head: Normocephalic and atraumatic. Gastrointestinal: Soft, Nontender, Non distended and Rectal exam: Exam deferred, hemorrhoids. Medical Decision Making Rationale:Patient present with hemorrhoid pain over the past several days. Has been using preparation H but still in pain. Does take stool softener. Has had hemorrhoids since age 16. Rectal exam reveals several enlarged inflamed hemorrhoids. Tender to external palpation, no externalexam done. Recommend continued symptomatic care. Advised adding Sitz baths as well. Pain medication provided for break through pain. Follow up with general surgeon.. Impression and Plan Diagnosis hemorrhoids Plan Condition: Stable. Disposition: Discharged: to home. Prescriptions: Prescription [employer] Sales Representative Pharmacy: oxyCODONE-acetaminophen 5 mg-325 mg oral tablet (Prescribe): 1 tab(s), PO, q6hr, PRN: Pain, 6 tab(s), 0 Refill(s) oxyCODONE (Order Processing): 5 mg, PO, Once. Patient was given the following educational materials: HEMORRHOIDS, HEMORRHOIDS. Follow up with: SOFIE VÁZQUEZ Within As Needed, SOFIE VÁZQUEZ Within As Needed; *Follow Up with Surgery Within 2 - 4 days Symptomatic external hemorrhoids. Counseled: Patient, Regarding diagnosis, Regarding diagnostic results, Regarding treatment plan, Patient indicated understanding of instructions. Orders: Launch Orders Patient Care: Discharge ED Patient (Order Processing): 05/27/2016 4:39 ARTISTS' MODEL, Once. Electronically Signed By: MIMI VICENTE DO On: 05/30/2016 12:05 PM Modified by and Electronically Signed by: MIMI VICENTE DO On: 05/27/2016 04:40 AM Source: [facility] POWER[facility]ART Document Id: [id number]} STS' MODEL Devi Raza R.N. - 05/27/2016 3:35 AM CST ED Primary Assessment Document Has Been Updated ED Primary Assessment Entered On: 05/27/2016 4:51 ARTISTS[employer] MODEL Performed On: 05/27/2016 3:35 [facility] [facility]DEL by DEVI RAZA RN Reason For Visit (As Of: 05/27/2016 04:51:40 ARTISTS' MODEL) Problems(Active) Abuse Tobacco Smoking NOS (ICD-10-CM :Z72.0 ) Name of Problem: Abuse Tobacco Smoking NOS ; Recorder:DARIUS PARKS MD; Confirmation: Confirmed ; Classification: Medical ; Code: Z72.0 ; Contributor System: PowerChart ; Last Updated: 05/12/2016 15:21 ARTISTS' MODEL ; Life Cycle Date: 05/12/2016 ; Life Cycle Status: Active ; Responsible Provider: DARIUS PARKS MD; Vocabulary: ICD-10-CM Disease Gastroesophageal Reflux (GERD ERMELINDA) (ICD-10-CM :K21.9 ) Name of Problem: Disease Gastroesophageal Reflux (GERD ERMELINDA) ; Recorder: CHEO KHAN MD; Confirmation: Confirmed ; Classification: Medical ; Code: K21.9 ; Contributor System: [employer]lex[employer] ; Last Updated: 08/12/2015 10:33 CDT ; Life Cycle Status: Active ; Responsible Provider: CHEO KHAN MD; Vocabulary: ICD-10-CM Hemorrhoids External NOS (ICD-10-CM :K64.4 ) Name of Problem: Hemorrhoids External NOS ; Recorder: DARIUS PARKS MD; Confirmation: Confirmed ; Classification: Medical ; Code: K64.4 ; Contributor System: [employer] ; Last Updated: 05/12/2016 15:20 ARTISTS' MODEL ; Life Cycle Date: 05/12/2016 ; Life Cycle Status: Active ; Responsible Provider: DARIUS PARKS MD; Vocabulary: ICD-10-CM Diagnoses(Active) Hemorrhoids Date: 05/27/2016 ; Diagnosis Type: Reason For Visit ; Confirmation: Confirmed ; ClinicalDx: Hemorrhoids ; Classification: Medical ; Clinical Service: Emergency medicine ; Code: PNED ; Probability: 0 ; Diagnosis Code: [id number] Triage Chief Complaint Description : Pt reports she has hemorrhoids. Tonight, one was bleeding. She states she has many and they are painful. She is using prepiration H Mode of Arrival ED : Private vehicle Track : Medical Languages : Welsh Treatments Prior to Arrival : None Are you ? : No Is Patient Female and 13-50 no hysterectomy : Yes Status : Patient denies DEVI RAZA RN - 05/27/2016 4:48 [facility] [facility]DEL Pain Assessment Pain Symptoms : Yes DEVI RAZA RN 05/27/2016 4:48 [facility] [facility]DEL Pain Scale Pain Scale Verbal 0-10 : Open DEVI RAZA RN 05/27/2016 4:48 [facility]ISTS[employer] MODEL Pain Pain Assessment Grid Pain 1 Location : Other: rectal Intensity : 8 DEVI RAZA RN 05/27/2016 4:48 ARTISTS' MODEL DENNY DCP GENERIC CODE Tracking Acuity : 5 -Non Urgent Tracking Group : [facility] ED/ DEVI RAZA RN - 05/27/2016 4:48 ARTISTS' MODEL Respiratory Airway : Patent Respirations : Unlabored Respiratory Pattern : Regular DEVI RAZA RN 05/27/2016 4:48 ARTISTS' MODEL Cardiovascular Heart Rhythm : Regular Skin Color : Normal for ethnicity Skin Description : Dry Skin Temperature : Warm DEVI RAZA RN - 05/27/2016 4:48 ARTISTS' MODEL Neurological Last Well Time Known : Not applicable Level of Consciousness : Alert Orientation : Oriented x 3 Characteristics of Speech : Clear Neuro Patient Stated Symptoms : None DEVI RAZA RN 05/27/2016 4:48 ARTISTS' MODEL ED Psychosocial Affect/Behavior : Calm, Cooperative, Appropriate Domestic Abuse Concerns : None Behavioral Health Screen/Safety Assmt : No DEVI RAZA RN - 05/27/2016 4:48 ARTISTS' MODEL Gastrointestinal Nutrition ED : Adequate DEVI RAZA RN - 05/27/2016 4:48 ARTISTS' MODEL Musculoskeletal Fall Prevention Education Provided : DEVI PRADO RN - 05/27/2016 4:48 ARTISTS' MODEL Social Habits Exposure to Tobacco Smoke : Patient smokes, Other: occ alcohol Smoking Status : Current every day smoker Tobacco 2A : Yes Tobacco Use/Currently Using : Yes Tobacco Use/Last 30 Days : Yes Tobacco Use/Last 12 months : Yes Type : Cigarettes: Less than 20 per day Tobacco Use/Advised to Quit : No DEVI RAZA RN - 05/27/2016 4:48 ARTISTS' MODEL Alcohol Use Grid Alcohol Use : Yes Frequency : Occasionally DEVI RAZA RN - 05/27/2016 4:48 ARTISTS' MODEL Recreational Drug Use Grid Drug Use : Current Type : Alcohol Route : Oral Frequency : Other: TWICE A MONTH DEVI RAZA RN - 05/27/2016 4:48 ARTISTS' MODEL [facility] Document Id: [id number] ARTISTS' MODEL!65 STS' MODEL documented in this encounter Miscellaneous Notes Telephone Encounter - Conversion, Historical Provider Ser - 05/27/2016 8:09 AM CST FW: Follow Up with Surgery Document Contains Addenda Addendum by TRELL BUNN on May 28, 2016 12:13:37 ARTISTS' MODEL Closing message. Addendum by EVELYNE WEINBERG LPN on May 28, 2016 12:06:26 ARTISTS' MODEL From: EVELYNE WEINBERG LPN ( Surgery Nurse) To: Specialty Garde Manger; Sent: 05/28/2016 12:06:26 ARTISTS' MODEL Subject: RE: Follow Up with Surgery yes Addendum by TIMO VEGA on May 28, 2016 11:22:16 ARTISTS' MODEL From: TIMO VEGA ( Specialty Garde Manger) To: Surgery Nurse; Sent: 05/28/2016 11:22:16 ARTISTS' MODEL Subject: RE: Follow Up with Surgery appt scheduled. is patient aware? Addendum by EVELYNE WEINBERG LPN on May 28, 2016 09:53:32 ARTISTS' MODEL From: EVELYNE WEINBERG LPN ( Surgery Nurse) To: Specialty Garde Manger; Sent: 05/28/2016 09:53:32 ARTISTS' MODEL Subject: RE: Follow Up with Surgery states would like 06/05/[address] Gilliland for consult in [place]. please add patient to schedule, thanks. Addendum by TRELL BUNN on May 27, 2016 16:05:00 ARTISTS' MODEL From: TRELL BUNN ( Specialty Garde Manger) To: Surgery Nurse; Sent: 05/27/2016 16:05:00 ARTISTS' MODEL ! Subject: FW: Follow Up with Surgery See below, patient in a lot of pain. Caller Name/Relationship Vlad Blanchard/ [facility]/ Call Back # [phone] Reason For Call Please see previous messages States his in a lot of pain and needs this procedure tank. Please call tank Addendum by TRELL BUNN on May 27, 2016 15:39:08 ARTISTS' MODEL Called patient, no answer, unable to leave a message. Addendum by ROBERT BANSAL LPN on May 27, 2016 11:11:45 ARTISTS' MODEL From: ROBERT BANSAL LPN ( Surgery Nurse) To: Specialty Garde Manger; Sent: 05/27/2016 11:11:45 ARTISTS' MODEL Subject: FW: Follow Up with Surgery Addendum by ROBERT BANSAL LPN on May 27, 2016 11:11:35 ARTISTS' MODEL NEXT AVAIL From: TRELL BUNN ( Specialty Garde Manger) To: Surgery Nurse; Sent: 05/27/2016 08:09:03 ARTISTS' MODEL Subject: FW: Follow Up with Surgery Please see below, nothing available in requested time frame. Okay to schedule next available or sooner time? Follow Up Request: Follow Up with Surgery Date Requested: May 27, 2016 04:52:46 ARTISTS' MODEL Ed Location: [facility] ED ED Attending: MIMI VICENTE DO Order placed from order screen by provider Order Provider: --- Follow Up Time Frame: --- Reason for Request: --- Special Instructions: --- Consulting Physician: --- Consulting Department: --- Rule placed order based on provider documentaton Note: Order created from documentation in the Follow Up section Documented by: MIMI VICENTE DO Follow Up Within: 2 - 4 days Follow Up On: -- Follow Up Address: -- Follow Up Comments: Symptomatic external hemorrhoids [facility] Document Id: [id number] Miscellaneous - Devi Raza, R.N. - 05/27/2016 4:52 AM CST Valuables/Belongings Valuables/Belongings Entered On: 05/27/2016 4:52 ARTISTS' MODEL Performed On: 05/27/2016 4:52 ARTISTS' MODEL by DEVI RAZA RN Valuables/Belongings Belongings Sent Home With : pt Comment : sent with a take home of DEVI Barajas RN - 05/27/2016 4:52 ARTISTS' MODEL Source: [facility] Circle Document Id: [id number] ARTISTS' MODEL!4 STS' MODEL Miscellaneous - Conversion, Historical Provider Ser - 05/27/2016 4:47 AM ARTISTS' MODEL Coding Summary-Paper Based CODING DATE: 06/03/2016 FINAL [facility] STATUS: * Discharged to Home or Self Care PAYOR: Medicaid ADMIT DX: K64.9 Unspecified hemorrhoids REASON FOR VISIT DX: K64.9 Unspecified hemorrhoids FINAL DX: PRINCIPAL: K64.9 Unspecified hemorrhoids SECONDARY: F17.210 Nicotine dependence, cigarettes, uncomplicated PROCEDURES DOCTOR NAME DATE NOTE: The code number assigned matches the documented diagnosis and / or procedure in the patient's chart. However, the narrative phrase printed from the coding software may appear abbreviated, or result in slightly different terminology. Coded By: SELMA STEINBERG Date Saved: 06/03/2016 01:08 pm Source: [facility] Circle Document Id: [id number] documented in this encounter Plan of Treatment Not on filedocumented as of this encounter Visit Diagnoses Not on filedocumented in this encounter
--- OUTSIDE RECORDS SUMMARY | 2022-02-03 23:56 | XMS_ITS | Encounter Summary ---
:1985 Author Organization [facility] Address [address] [place] [address] Care Team Providers Name Role Phone Unavailable Primary Care Provider Unavailable Encounter Details Date Type Department Care Team Description 06/02/2016 Hospital Encounter HX [facility] Jeff Murray M.D., Ph.D. [address] [place] [address] (Wo rk) Social History Tobacco Use Types Packs/Day Years Used Date Smoking Tobacco: Every Day Sex Assigned at Date Recorded Not on file documented as of this encounter Last Filed Vital Signs Vital Sign Reading Time Taken Comments Blood Pressure 136/79 06/02/2016 8:36 AM CHARRER Pulse 86 06/02/2016 8:36 AM CHARRER Temperature - - Respiratory Rate 20 06/02/2016 8:36 AM CHARRER Oxygen Saturation - - Inhaled Oxygen Concentration - - Weight 81.6 kg (179 lb 14.3 oz) 06/02/2016 8:36 AM CHARRER Height 169 cm (5' 6.54) 06/02/2016 8:36 AM CHARRER Body Mass Index 28.57 06/02/2016 8:36 AM CHARRER documented in this encounter Progress Notes Gayle Camarena M.D., Ph.D. - 06/02/2016 8:32 AM CST [place] CHIEF COMPLAINT/REASON FOR VISIT Bleeding hemorrhoids. REFERRAL SOURCE Sofie Soria M.D. HISTORY OF PRESENT ILLNESS Mrs. Vasquez is a 31-year-old female who states that she has experienced external hemorrhoids sinceage 16. She has complaints of some constipation intermittently, but her biggest concern is pain withburning and itching around the perianal area over the last month. Two and half weeks ago, she developed spontaneous bright red blood per rectum in the shower which was quite startling for her. This resolved spontaneously but happened on a number of occasions with the last occasion being just days ago.She has had no previous abdominal operations but with a concerted effort, has lost over 70 pounds inthe last several months. She has 5 children and 4 of her deliveries were vaginal with the 5th being delivery. Mrs. Vasquez is quite healthy. She suffers from gastroesophageal reflux disease, but this is markedly improved since her dramatic weight loss. She also suffers from nicotine dependence. PHYSICAL EXAMINATION GENERAL: Patient sitting comfortably in a chair in no acute distress. Awake, alert, and oriented. Appropriately interactive. HEAD: Normocephalic. Facial features symmetric. ENT: Neck supple. No palpable masses. LUNGS: Clear to auscultation bilaterally. No wheezes, rales, or rhonchi. HEART: S1, S2 normal. No murmurs, gallops, or rubs. BACK: Normal. No costovertebral angle tenderness. ABDOMEN: Soft, nontender, nondistended. Patient has redundant skin consistent with significant weight loss. RECTUM: Perianal examination reveals the presence of external hemorrhoidal skin tags. The major lesion is anteriorly and encompasses approximately 1/3 of the circumference of the anal orifice. The patient also has fullness on the left posterior aspect of the anus. Digital rectal examination reveals fullness and redundant tissue to the left posterior aspect. There is no spontaneous bleeding. IMPRESSION/REPORT/PLAN 1. Bleeding internal hemorrhoids. 2. History of gastroesophageal reflux disease. 3. Nicotine dependence. Mrs. Vasquez is a 31-year-old female with symptomatic type 4 hemorrhoids. She recently experienced spontaneous bleeding which stopped but has recurred on numerous occasions over the last several weeks. She has tried tmrx-pbt-[id number] rectal suppositories and astringents without significant improvementin her symptoms. She states that she recalls having had a perianal skin tag since age 16. She has had 5 children. Physical examination is notable for internal and external hemorrhoids (type 4) with no contact bleeding or spontaneous bleeding. There is no palpable masses. I have discussed management options with Mrs. Vasquez. At this point of time, she is very eager to proceed with surgical intervention. Hemorrhoidectomy was discussed including the risks of injury to the internal sphincter muscle, pain and hemorrhoid recurrence. The patient wishes to proceed with hemorrhoidectomy and excision of perianal skin tags. A surgical date was chosen. The remaining risks including bleeding and infection were discussed. Informed consent was obtained. All of her questions wereanswered. This is a new patient consultation, 30 minutes, greater than 50% time spent in counseling. Gayle Camarena M.D., Ph.D./aos Electronically Signed By: GAYLE CAMARENA MD, PhD On: 07/06/2016 04:37 PM Source: [facility] MHSDOLBEYNONRADSYS Document Id: [id number] RER documented in this encounter Miscellaneous Notes Miscellaneous - Gayle Camarena M.D., Ph.D. - 06/07/2016 3:48 PM CHARRER Ambulatory Patient Summary [address] [id number] Visit Information Name: SILVIA VASQUEZ [facility] Number: [id number] Current Date: 06/07/2016 15:48:09 Physicians Attending Provider: GAYLE CAMARENA MD, PhD Primary Care Provider: SOFIE SORIA MD [id number] SILVIA VASQUEZ has been given the following list of follow-up instructions, medication list, and patient education materials: Follow-up Instructions Your Medications Here is a list of your medications. It is important to take your medications as directed. Use a pillbox or chart to help remind you to take your medications. Please let your doctor or nurse know if you have problems taking your medications. Medication/Strength Dose Route Frequency Indications/Special Instructions/Comments/Notes hydrocortisone topical (Anusol-HC 25 mg rectal suppository) 25 mg Per rectum two times a day for 5 Days belladonna-opium (belladonna-opium 16.2 mg-60 mg rectal suppository) 1 supp Per rectum every 12 hours as needed for pain lidocaine topical (Lidocaine Viscous 2% mucous membrane solution) 1 gordy Topical four times a day as needed for Pain(Severe) traMADol (Ultram 50 mg oral tablet) 50 mg Oral every 6 hours as needed for Pain docusate (Colace 100 mg oral capsule) 100 mg Oral two times a day ibuprofen (ibuprofen 200 mg oral tablet) 600 mg Oral every 6 hours as needed for Pain Take as neededfor pain or headache. Take with food or milk. acetaminophen (acetaminophen 500 mg oral tablet) 1,000 mg Oral every 6 hours as needed for pain Takeas needed for pain or headache. Attention: If you have any medications at home that are not on this list, DO NOT take them until youcontact your provider for clarification. Give a copy of your medication list to your primary care provider. Update your medication list any time medications or doses are changed and carry your medication list at all times in case of emergency. Electronically Signed By: GAYLE CAMARENA MD, PhD Signed On:07-JUN-2016 15:48:07 Your Allergies & Intolerances Substance Reaction Symptoms Category Comments No Known Allergies Drug Your Problem List Problem Status Onset Comments Disease Gastroesophageal Reflux (GERD ERMELINDA) Active Hemorrhoids External NOS Active Abuse Tobacco Smoking NOS Active Your Upcoming Appointments Date Time Location Provider 06/15/2016 09:00 TYRONE Camarena MD, Gayle Lino Attention: Contact your local Clinic if further [...] if you dont have one. Go to [email or web address] and click on Create Your Account. Then, follow the directions to complete the online form. Youll be asked for your [facility] number which you can find at the top of this document. Your Goals/Additional instructions: Source: [facility] POWERCHART Document Id: [id number] RER Miscellaneous - Gayle Camarena M.D., Ph.D. - 06/07/2016 3:48 PM CHARRER Ambulatory Discharge Medication List [facility] [address] [place], [place] [id number] Visit Information Name: SILVIA VASQUEZ [facility] Number: [id number] Current Date: 06/07/2016 15:48:09 Attending Provider: GAYLE CAMARENA MD, PhD Primary Care Provider: SOFIE SORIA MD [id number] SILVIA VASQUEZ has been given the following list of medications: Your Medications It is important to take your medications as directed. Use a pill box or chart to help remind you to take your medications. Please let your doctor or nurse know if you have problems taking your medications. Medication/Strength Dose Route Frequency Indications/Special Instructions/Comments/Notes hydrocortisone topical (Anusol-HC 25 mg rectal suppository) 25 mg Per rectum two times a day for 5 Days belladonna-opium (belladonna-opium 16.2 mg-60 mg rectal suppository) 1 supp Per rectum every 12 hours as needed for pain lidocaine topical (Lidocaine Viscous 2% mucous membrane solution) 1 gordy Topical four times a day as needed for Pain(Severe) traMADol (Ultram 50 mg oral tablet) 50 mg Oral every 6 hours as needed for Pain docusate (Colace 100 mg oral capsule) 100 mg Oral two times a day ibuprofen (ibuprofen 200 mg oral tablet) 600 mg Oral every 6 hours as needed for Pain Take as neededfor pain or headache. Take with food or milk. acetaminophen (acetaminophen 500 mg oral tablet) 1,000 mg Oral every 6 hours as needed for pain Takeas needed for pain or headache. Attention: If you have any medications at home that are not on this list, DO NOT take them until youcontact your provider for clarification. Give a copy of your medication list to your primary care provider. Update your medication list any time medications or doses are changed and carry your medication list at all times in case of emergency. Electronically Signed By: GAYLE CAMARENA MD, PhD Signed On:07-JUN-2016 15:48:07 Additional Information: Source: [facility] [employer]are Document Id: [id number] RER Miscellaneous - Conversion, Historical Provider Ser - 06/04/2016 1:43 PM CHARRER PCP Yang Document Contains Addenda Addendum by JANETH LEA RN on June 04, 2016 14:00:07 CHARRER Silvia gives permission verbally for nurse to talk with spouse Vlad. Reviewed use of pain medication. Plan is to use Percocet alternating with Tylenol and/or Ibuprofen as the Tramadol was not effective for the pain. No further questions from the spouse at this time. From: ERA SMITH ( Call Center Diesel Fleet Mechanic) To: Primary Care Team RN; Sent: 06/04/2016 13:43:25 CHARRER Subject: PCP Yang Caller Name/Relationship - Vlad Rust/[place] Call Back # [phone] Reason For Call Medication question Source: [facility] [employer] Document Id: [id number] Miscellaneous - Conversion, Historical Provider Ser - 06/02/2016 1:23 PM CHARRER Insurance Verification - hemorrhoidectomy From: JEET NICOLE ([facility] Clinic Record Retrieval Specialist/Prior Authorizations) Sent: 06/02/2016 13:23:10 CHARRER Subject: Insurance Verification - hemorrhoidectomy Pt has [place] [employer] ins, verified in [employer]. No prior auth is needed for OPS hemorrhoidectomy on 06/03/16.Payment is based on med nec and current ins at time of the procedure; this is not a guarantee of payment. Source: [facility] [employer] Document Id: [id number] Miscellaneous - Cathy Weinberg R.N. - 06/02/2016 10:01 AM CST scheduled for hemorrhoidectomy on 06/03/16 in [place] From: CATHY WEINBERG LPN ([facility] Surgery Nurse) To: YADIRA PreOp Nurse; SEMN Clinic Record Retrieval Specialist/Prior Authorizations; ISABELLE General Surgery Nurse; Sent: 06/02/2016 10:01:33 CHARRER Subject: scheduled for hemorrhoidectomy on 06/03/16 in [place] surgery work sheet faxed to [place]. per Dr. Camarena hemorrhoidectomy to be scheduled 06/03/16 in [place]. [place] surgical instructions given in clinic, verbalized understanding. Source: [facility] POWERCHART Document Id: [id number] Electronically signed by Conversion, [facility] Inserter Operator [id number] at 10/13/2016 3:14 AM CDT Miscellaneous - Cathy Weinberg R.N. - 06/02/2016 8:36 AM CST Adult Crime Scene Photographer Intake/History Adult Crime Scene Photographer Intake/History Entered On: 06/02/2016 8:39 CHARRER Performed On: 06/02/2016 8:36 CHARRER by CATHY WEINBERG LPN Intake Chief Complaint : ED follow up symptomatic external hemorrhoids Temperature Core : 36.6 DegC(Converted to: 97.9 DegF) Peripheral Pulse Rate : 86 /min Respiratory Rate : 20 /min Systolic Blood Pressure : 136 mmHg Diastolic Blood Pressure : 79 mmHg NIBP Mean : 98 mmHg BP Location : Left upper extremity Blood Pressure Cuff Size : Regular SpO2 : 97 % Oxygen Therapy : Room air Height : 169 cm(Converted to: 5 ft 7 inch(es), 67 inch(es)) Actual Weight : 81.6 kg(Converted to: 179 lb 14 oz) Weight Source : Standing scale Dosing Weight Clinic : 81.6 kg Clinic BSA : 1.96 Body Mass Index : 28.57 kg/m2 CATHY WEINBERG LPN - 06/02/2016 8:36 CHARRER General Info Information Given By : Patient Preferred Communication Mode : Verbal Languages : Prydeinig Is Patient Female and 13-50 no hysterectomy : Yes Status : Patient denies Are you ? : No CATHY WEINBERG LPN - 06/02/2016 8:36 CHARRER Subjective Pain Symptoms : No CATHY WEINBERG LPN - 06/02/2016 8:36 CHARRER Dependent Habits Exposure to Tobacco Smoke : Patient smokes, Other: occ alcohol Smoking Status : Current every day smoker Tobacco 2A : Yes Tobacco Use/Currently Using : Yes Tobacco Use/Last 30 Days : Yes Tobacco Use/Last 12 months : Yes Type : Cigarettes: Less than 20 per day Tobacco Use/Advised to Quit : Yes Alcohol Use : Yes CATHY WEINBERG LPN - 06/02/2016 8:36 CHARRER Caffeine Use Grid Caffeine Use : None CATHY WEINBERG LPN - 06/02/2016 8:36 CHARRER Recreational Drug Use Grid Drug Use : Current Type : Alcohol Route : Oral Frequency : Other: TWICE A MONTH CATHY WEINBERG LPN - 06/02/2016 8:36 CHARRER Source: [facility] [employer] Document Id: [id number] RER documented in this encounter Plan of Treatment Not on filedocumented as of this encounter Visit Diagnoses Not on filedocumented in this encounter
--- OUTSIDE RECORDS SUMMARY | 2022-02-03 23:56 | XMS_ITS | Clinical Summary ---
:1985 Author Organization [facility] Address [address] [place] [address] Care Team Providers Name Role Phone Elsewhere, Pcp Primary Care Provider Unavailable Source Comments Patient records contain information from all sites at [facility]. For routine questions regarding patient records, call [phone] during business hours, M-F 8:00 AM - 5:00 PM Central Time. Record requests for emergency care only can be directed to [phone] at any time.[facility] Allergies No known active allergies Medications Medication Sig Dispensed Refills Start Date End Date Status docusate sodium Take 1 capsule by 0 06/03/2016 Active (COLACE) 100 mg mouth 2 (two) capsule times a day. UNABLE TO FIND Apply 1 0 06/06/2016 Acti ve application topically 4 (four) times a day as needed. acetaminophen Take 1,000 mg by 0 Active (TYLENOL) 500 mg mouth every 6 tablet (six) hours as needed for pain. ibuprofen Take 800 mg by 0 Activ e (ADVIL,MOTRIN) 800 mg mouth every 6 tablet (six) hours as needed for pain. cyclobenzaprine Take 1 tablet (10 15 tablet 0 11/15/2021 Active (FLEXERIL) 10 mg mg total) by mouth tablet 3 (three) times a day as needed for muscle spasms. 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 Encounters Date Type Specialty Care Team Description 11/15/2021 Emergency Emergency Medicine Efren Galdamez C.N.PEmeka Pa in Back (Primary Dx) from Last 3 Months Immunizations Name Administration Dates Next Due DT, Pediatric 12/31/1997 DTP 11/17/1988, 1987, 1987, 0312/1987 H1N1 All Forms 03/01/2009 Hib (PRP-T) (ACTHIB, HIBERIX) 01/13/1989 Influenza, Unspecified 05/12/2016, 03/01/2009 MMR 01/08/1999, 11/17/1988 OPV 11/17/1988, 1987, 1987 PPSV23 05/12/2016 Tdap 11/01/2013 Social History Tobacco Use Types Packs/Day Years Used Date Smoking Tobacco: Every Day Tobacco Cessation: Ready to Quit: Not As ked; Counseling Given: Not Answered Alcohol Use Standard Drinks/Week Comments Yes 0 (1 standard drink = 0.6 oz pure alcoho l) Sex Assigned at Date Recorded Not on file Last Filed Vital Signs Vital Sign Reading Time Taken Comments Blood Pressure 145/89 11/15/2021 10:45 PM CDT Pulse 106 11/15/2021 10:45 PM CDT Temperature 36.7 ??C (98.1 ??F) 11/15/2021 10:45 PM CDT Respiratory Rate 18 11/15/2021 10:45 PM CDT Oxygen Saturation 100% 11/15/2021 10:45 PM CDT Inhaled Oxygen Concentration - - Weight 75.9 kg (167 lb 5.3 oz) 11/15/2021 10:53 PM CDT Height 170 cm (5' 6.93) 06/22/2016 10:01 PM 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 Body Mass Index 26.26 06/22/2016 10:01 PM 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 Plan of Treatment Health Maintenance Due Date Last Done Comments Cervical Cancer Screening 1985 HIV Screening 1987 Hepatitis B Vaccines (1 of 3 - 1987 3-dose series) Hepatitis C Screening 1987 Tobacco Cessation counseling 1987 Pneumococcal vaccine (0-64 years) 05/12/2017 05/12/2016 (2 - PCV) Depression Screening (Annual 05/03/2021 PHQ-2) COVID-19 Vaccine (3 - Booster for 07/01/2021 05/06/2021, Pfizer series) Asthma Action Plan 09/24/2021 Asthma Control Test Questionnaire 09/24/2021 Influenza Vaccine (#1) 2022 05/09/2021, 03/17/2017, 05/12/2016, Additional history exists DTaP,Tdap,and Td Vaccines (9 - Td 04/08/2028 04/08/2018, , or Tdap) 07/17/2012, Additional history exists Insurance Payer Benefit Plan Subscriber ID Effective Phone Address Typ e / Group Dates ITASCA ITASCA [id number] 2021-[facility] [phone] [facility] MEDICAL CARE MEDICAL CARE ent [address] [place] [address] 2 [address] Care Teams Stripper [place] Relationship Specialty Start Date End Date Elsewhere, Pcp PCP - General 07/02/19
--- OUTSIDE RECORDS SUMMARY | 2022-02-03 23:56 | XMS_ITS | Encounter Summary ---
:1985 Author Organization [facility] Address [address] [place] [address] Care Team Providers Name Role Phone Elsewhere, Pcp Primary Care Provider Unavailable Reason for Visit Reason Comments Back Pain Lower back pain from previou s injury (3 months ago). Took tylenol/ibuprofen around 1900 and has tried ty lenol and ibuprofen and ice and heat. Feels tail bone sticks out more on right side and radiates to spine. Encounter Details Date Type Department Care Team Description 11/15/2021 Emergency [facility], Schwartz N, Pain Back (Primary Dx) Department C.N.P. [address] [place] [address] [address] [place] [id number] [phone] Social History Tobacco Use Types Packs/Day Years [...] 5.3 oz) 11/15/2021 10:53 PM CDT Height - - Body Mass Index 26.26 06/22/2016 10:01 PM HOME HEALTH [facility]ID documented in this encounter Discharge Instructions Discharge InstructionsEfren Galdamez C.NJaclyn - 11/15/2021 11:09 PM CDT For pain control: Tylenol 500 mg every 4 hours as needed. Ibuprofen 400 mg every 6 hours as needed. Over the counter lidocaine or salonpas every 12 hours as needed. Flexeril 10 mg 3 times a day as needed, however do not drink alcohol operate machinery as it does cause drowsiness. I recommend follow-up with the clinic next week for further evaluation of your back pain. If you develop fever, numbness of your buttocks, unable to control your bowel movement or urination,unable to have a bowel movement or urination, unable to walk, or worsening symptoms, go to the emergency department for further evaluation. AttachmentsThe following attachments cannot be sent through Care Everywhere. Chronic Back Pain (Telugu)documented in this encounter Medications at Time of Discharge Medication Sig Dispensed Refills Start Date End Date acetaminophen (TYLENOL) Take 1,000 mg by 0 500 mg tablet mouth every 6 (six) hours as needed for pain. cyclobenzaprine (FLEXERIL) Take 1 tablet (10 mg 15 tablet 0 11/15/2021 10 mg tablet total) by mouth 3 (three) times a day as needed for muscle spasms. docusate sodium (COLACE) Take 1 capsule by 0 05/2016 100 mg capsule mouth 2 (two) times a day. ibuprofen (ADVIL,MOTRIN) Take 800 mg by mouth 0 800 mg tablet every 6 (six) hours as needed for pain. UNABLE TO FIND Apply 1 application 0 06/06/2016 topically 4 (four) times a day as needed. documented as of this encounter ED Notes Efren Galdamez C.N.Krista. - 11/15/2021 11:05 PM CDT Images from the original note were not included. SUBJECTIVE CHIEF COMPLAINT/REASON FOR VISIT Back Pain (Lower back pain from previous injury (3 months ago). Took tylenol/ibuprofen around 1900 and has tried tylenol and ibuprofen and ice and heat. Feels tail bone sticks out more on right side and radiates to spine.) HISTORY OF PRESENT ILLNESS Silvia May is a 36 y.o. female who presents to the ED concerning for low back pain. Patientreports 3 months ago she fell down a set of stair and injured her tailbone. She has been having painsince then. She endorse pain along the right buttocks that radiates down to the right legs. She has not had follow- up with primary care regarding this. She denies any fevers or chills. Denies any saddle anesthesia. Denies any urinary or bowel issues. Denies any recent injury or trauma. REVIEW OF SYSTEMS Constitutional: Negative for chills and fever. HENT: Negative. Eyes: Negative. Respiratory: Negative. Cardiovascular: Negative. Gastrointestinal: Negative. Musculoskeletal: Positive for back pain. Psychiatric/Behavioral: Negative. OBJECTIVE Initial Vitals [11/15/21 2256] Temp Pulse Heart Rate Resp BP SpO2 -- -- -- -- -- -- Pain Score 6 PHYSICAL EXAMINATION Constitutional: She appears not lethargic. No distress. HENT: Nose: Nose normal. Eyes: Conjunctivae are normal. Pulmonary/Chest: Effort normal. Musculoskeletal: Cervical back: Normal. Thoracic back: Normal. Lumbar back: Normal. Back: Neurological: Alert and oriented to person, place, and time. Skin: Skin is normal color. She is not diaphoretic. Psychiatric: She has a normal mood and affect. ASSESSMENT/PLAN IMPRESSION AND PLAN Patient seen and examined. Life threatening differential diagnoses considered include: Cauda Equina,epidural abscess, spinal fracture, discitis, AAA, transverse myelitis, pyelonephritis, renal stone, and others considered. The patient denied saddle anesthesia, bowel or bladder incontinence or lower extremity weakness or difficulty with urinating, so I have low suspicion for Cauda equina syndrome, discitis, or transverse myelitis. No fever and neurovascularly intact, so I have low suspicion for epidural abscess. Patient d enies any flank pain. There is no abdominal pain, abdominal bruit, or abdominal mass, so I have low suspicion for AAA. Her pain more along the right buttocks. Positive straight leg test. After considering the context of the patient's history, exam, and diagnostic results, my impression is back pain with sciatica. Plan: With chronic pain, discharge home with conservative management and Flexeril. Recommend she follow up primary care for further evaluation. Strict return precaution given. The patient states understanding. Final Diagnoses: as of 11/15/212308 Pain Back Efren Galdamez, C.N.P. 11/15/212308 documented in this encounter Plan of Treatment Not on filedocumented as of this encounter Visit Diagnoses Diagnosis Pain Back - Primary documented in this encounter Administered Medications Inactive Administered Medications - up to 3 most recent administrations Medication Order MAR Action Action Date Dose Rate Site lidocaine 5 % 1 patch Medication Applied 11/15/2021 11:10 PM 1 patch Back (LIDODERM) CDT 1 patch, transdermal, Administer over 12 Hours, Once, On 11/15/21 at 2306, For 1 dose, Remove after 12 hours. documented in this encounter Active and Recently Administered Medications Times are shown in CDT. Scheduled Medication Order 11/13/2021 11/14/2021 11/15/2021 lidocaine 5 % 1 patch (LIDODERM) 2310 (Medication Applied - Provider: Dali Connor R.N.)2320 (Due: Medication Removed - Provider: Discharge Provider, Automatic - Comment: Time automatically adjusted from order being discontinued) 1 patch, transdermal, Administer over 12 Hours, Once, On 11/15/21 at 2306, For 1 dose, Remove after 12 hours. documented in this encounter Care Teams Director Emergency Relationship Specialty Start Date End Date Elsewhere, Pcp PCP - General 07/02/19 documented as of this encounter
--- OUTSIDE RECORDS SUMMARY | 2022-02-03 23:56 | XMS_ITS | Encounter Summary ---
:[address] [facility] Address [address] [place] [id number] Care Team Providers Name Role Phone Unavailable Primary Care Provider Unavailable Encounter Details Date Type Department Care Team Description 03/29/2016 Hospital Encounter HX [facility] Natalya Lipscomb M .D. Social History Tobacco Use Types Packs/Day Years Used Date Smoking Tobacco: Never Assessed Sex Assigned at Date Recorded Not on file documented as of this encounter Last Filed Vital Signs Vital Sign Reading Time Taken Comments Blood Pressure 103/62 03/29/2016 3:17 PM PHYSICAL INTEGRATION PRACTITIONER Pulse 111 03/29/2016 1:24 PM PHYSICAL INTEGRATION PRACTITIONER Temperature - - Respiratory Rate 16 03/29/2016 3:17 PM PHYSICAL INTEGRATION PRACTITIONER Oxygen Saturation - - Inhaled Oxygen Concentration - - Weight - - Height 169 cm (5' 6.54) 03/29/2016 1:24 PM PHYSICAL INTEGRATION PRACTITIONER Body Mass Index - - documented in this encounter Discharge Summaries Dayan Mccoy R.N. - 03/29/2016 3:20 PM CST ED Discharge Instructions [facility] [address] [place] [address] Name: SILVIA BLANCHARD Date of : 1985 12:00 AM Visit Date: 03/29/2016 12:[address] [facility] Number: [id number] Address: [address] [place] [phone] Primary Care Provider: SOFIE VÁZQUEZ MD IMPORTANT: [facility] in [place] would like to thank you for allowing us to assist youwith your healthcare needs. The following includes patient education materials and information regarding your injury/illness. Diagnosis: Follow-Up Instructions: With: Address: When: Return to Emergency Department Within As Needed Comments: Return to the ER for worsening abdominal pain, inability to keep fluids down, lightheadedness, or other concerning symptoms. With: Address: When: Follow Up with Primary Care Within As Needed With: Address: When: SOFIE VÁZQUEZ [address] [place] [phone] Business (1) Within As Needed Your Upcoming Appointments: Date Time Location Provider No Appointments found Patient Education Materials: Vomiting And Diarrhea, Nonspecific (Adult) Vomiting and diarrhea help the body remove harmful substances. This may be a virus (stomach flu) or bacteria (food poisoning). Allergy to a food or medication may also cause vomiting or diarrhea. They also can sometimes be triggered by severe stress or worry (anxiety). It is often hard to pinpoint an e xact cause, even with testing. Vomiting and diarrhea often resolve within a day or two without problems. If they continue, though, they can lead to dehydration (excess fluid loss). This can be serious if not treated. Home care The following guidelines will help you with your illness: ?? Be cautious with medications. Ask your health care provider before you take nausea or diarrhea medication. The body often uses diarrhea and vomiting to get rid of a substance that may be toxic or cause harm. So medications that slow or stop this may not be recommended. Certain tjrp-ovv-cuxerzd medications can help soothe stomach upset. ?? Drink or sip liquids to avoid dehydration. ?? If you are dehydrated, the doctor may suggest an oral rehydration solution (known as ORS). They can be bought without a prescription in grocery and drug stores. Use only prepared ORS. Do not try to make your own. The mix of water, salt, and electrolytes is the best at replacing what you lose when you are ill. If you cannot get ORS solution, a sports drink diluted with water in equal amounts (one cup of sports drink to one cup of water) is an okay substitute. ?? Take small sips frequently to help avoid excess fluid loss. If you stop vomiting, you can advanceyour diet, but some things can worsen diarrhea. ?? If the thought of drinking something makes you queasy, suck on ice chips. ?? Avoid sugary beverages, such as juices and sodas. These may make diarrhea worse. ?? Slowly return to your normal diet. ?? As your desire to eat returns, eat what appeals to you. You do not need to eat special foods. At first, avoid rich, fatty foods or cows milk. Do not eat too much at one time. You may be told to avoid certain foods until you feel better. ?? Wash your hands. Frequent handwashing can help prevent the spread of infection. Follow-up care Follow up as advised by the doctor or our staff. When to seek medical care Get prompt medical attention if any of the following occur: ?? Bloody or black vomit or stools. ?? Severe, steady abdominal pain or any abdominal pain that is getting worse. ?? Severe headache or stiff neck ?? An inability to hold down even sips of liquids for more than 12 hours. ?? Vomiting that lasts more than 24 hours. ?? Diarrhea that lasts more than 24 hours. ?? Fever of 100.4?F (38?C) or higher that lasts more than 48 hours, or as directed by your health care provider ?? Yellowish color to your skin or the whites of your eyes. ?? Signs of dehydration, such as dry mouth, little urine (less than every 6 hours), or very dark urine. ?? Severe weakness, dizziness or lightheadedness ?? [id number] [facility], [address] [place] [address], [place] [address]. All rights reserved. This information is not [...] if you dont have one. Go to [email or web address] and click on Create Your Account. Then, follow the directions to complete the online form. Youll be asked for your [facility] number which you can find at the top of this document. ED Tests and Procedures: Order Status Basic Metabolic Panel Completed CBC (includes Auto Differential) Completed Lactic Acid Completed Lipase Level Completed Hepatic Function Panel Completed Beta hCG Quantitative Completed Automated Diff-5 Part Completed Discharge Prescriptions & Home Medications: Medication/Strength Dose Route Frequency Indications/Special Instructions/Comments/Notes ondansetron (ondansetron 4 mg oral tablet, disintegrating) 4 mg Oral every 8 hours as needed for Nausea Comment: Attention: If you have any medications [...] ride home with a responsible green party. Sylvia, SILVIA BLANCHARD , or responsible green party have received this information and my questions have been answered. I have discussed any challenges I see with this plan with the nurse or physician. Patient Signature or Responsible Democrat/Relationship Date Time Provider Signature Date Time IMPORTANT: [...] ride home with a responsible green party. I, SILVIA BLANCHARD , or responsible green party have received this information and my questions have been answered. I have discussed any challenges I see with this plan with the nurse or physician. Patient Signature or Responsible Democrat/Relationship Date Time Provider Signature Date Time This document has images extracted. Please consider using [employer]xt[employer] for all your patient education needs. Source: [facility] Document Id: [id number] ICAL INTEGRATION PRACTITIONER Dayan Mccoy R.N. - 03/29/2016 3:20 PM CST ED Depart Summary [facility] Emergency Department / Urgent Care Clinical Discharge Summary PERSON INFORMATION Name SILVIA BLANCHARD Age 30 Years 1985 12:00 AM Sex Female Language Sammarinese PCP SOFIE VÁZQUEZ MD Marital Status Visit Id Visit Reason Vomiting; vomitting diarrhea Specialty Enc Type Emergency Med Service Emergency Medicine Referred by Track Group [facility] ED/UC Discharge 03/29/2016 3:20 PM Tracking Id [id number] Checkout 03/29/2016 3:20 PM Checkin 03/29/2016 12:31 PM Acuity 3 -Urgent Dispo Type * Discharged to Home or Self Care Arrival 03/29/2016 12:31 PM Reg Status Complete LOS 000 02:49 Address: [address] [place] [phone] Comment: PROVIDER INFORMATION Provider Role Provider Contact Time DASHAWN YADAV CNP ED Provider 03/29/16 12:44 JANETT RAMIREZ LPN ED Nurse 03/29/16 12:44 YAMINI CERDA SORTER PRICER Nurse 03/29/16 13:02 NATALYA MOSCOSO ED Provider 03/29/16 13:04 DIAGNOSIS Comment: PATIENT EDUCATION INFORMATION Instructions: VOMITING AND DIARRHEA, Nonspecific (Adult) Follow up: With: Address: When: Return to Emergency Department Within As Needed Comments: Return to the ER for worsening abdominal pain, inability to keep fluids down, lightheadedness, or other concerning symptoms. With: Address: When: Follow Up with Primary Care Within As Needed With: Address: When: SOFIE VÁZQUEZ [address] [place] [phone] Business (1) Within As Needed Source: [facility] POWERCHART Document Id: [id number] ICAL INTEGRATION PRACTITIONER documented in this encounter H&P Notes Janett Ramirez L.PEmekaN. - 03/29/2016 12:46 PM CST Urgent Care Intake Urgent Care Intake Entered On: 03/29/2016 12:50 PHYSICAL INTEGRATION PRACTITIONER Performed On: 03/29/2016 12:46 PHYSICAL INTEGRATION PRACTITIONER by JANETT RAMIREZ LPN Intake Chief Complaint : Around 0400 patient started voimiting and has dirrhea. Patient would like something for nausea. Temperature Core : 36.4 DegC(Converted to: 97.5 DegF) (LOW) Peripheral Pulse Rate : 100 /min Respiratory Rate : 22 /min (HI) Systolic Blood Pressure : 118 mmHg Diastolic Blood Pressure : 74 mmHg NIBP Mean : 89 mmHg BP Location : Left upper extremity Blood Pressure Cuff Size : Regular SpO2 : 99 % Oxygen Therapy : Room air Height : 169 cm(Converted to: 5 ft 7 inch(es), 67 inch(es)) JANETT RAMIREZ LPN - 03/29/2016 12:46 PHYSICAL INTEGRATION PRACTITIONER General Info Information Given By : Patient Languages : Sammarinese Is Patient Female and 13-50 no hysterectomy : Yes Status : Patient denies Are you ? : No ASHLEYJANETT Jess SANABRIA - 03/29/2016 12:46 PHYSICAL INTEGRATION PRACTITIONER Subjective Pain Symptoms : No SHAGUFTACHADDPetra JANETT Jess SANABRIA - 03/29/2016 12:46 PHYSICAL INTEGRATION PRACTITIONER Dependent Habits Exposure to Tobacco Smoke : Patient smokes, Other: occ alcohol Smoking Status : Current every day smoker Tobacco 2A : Yes Tobacco Use/Currently Using : Yes Tobacco Use/Last 30 Days : Yes Tobacco Use/Last 12 months : Yes Type : Cigarettes: Less than 20 per day Tobacco Use/Advised to Quit : Yes JANETT RAMIREZ LPN - 03/29/2016 12:46 PHYSICAL INTEGRATION PRACTITIONER Caffeine Use Grid Caffeine Use : None JANETT RAMIREZ LPN - 03/29/2016 12:46 PHYSICAL INTEGRATION PRACTITIONER Recreational Drug Use Grid Drug Use : Current Type : Alcohol Route : Oral Frequency : Other: TWICE A MONTH JANETT RAMIREZ LPN - 03/29/2016 12:46 PHYSICAL INTEGRATION PRACTITIONER Nutrition Nutrition Risk Factors by History Adult : None SHAGUFTACHADDPetra JANETT Jess SANABRIA - 03/29/2016 12:46 PHYSICAL INTEGRATION PRACTITIONER Functional Current Daily Living Assistance : None JANETT RAMIREZ LPN - 03/29/2016 12:46 PHYSICAL INTEGRATION PRACTITIONER Psychosocial Domestic Abuse Concerns : None Behavioral Health Screen/Safety Assmt : No Gnosticist Preference : No Gnosticist Affiliation JANETT RAMIREZ LPN - 03/29/2016 12:46 PHYSICAL INTEGRATION PRACTITIONER Advance Directive Advanced Directives : No Advance Directive Additional Information : No JANETT RAMIREZ LPN - 03/29/2016 12:46 PHYSICAL INTEGRATION PRACTITIONER Educ Needs Learning Style Preference Adult Grid Patient : None Family : Printed materials JANETT RAMIREZ LPN - 03/29/2016 12:46 PHYSICAL INTEGRATION PRACTITIONER Source: [facility] POWERCHART Document Id: [id number] PHYSICAL INTEGRATION PRACTITIONER!55 ICAL INTEGRATION PRACTITIONER documented in this encounter Nursing Notes Neal Hunter L.P.N. - 03/29/2016 1:03 PM CST orthostatics Found patient very dizzy, pale and nauseated at door of room, says she needed to use the bathroom but so dizzy. Had her lie down and orthostatic BPs done with HR elevating to 155 and became extremely dizzy. Spoke with YANELI Kc from ED and patient transferred to ED care per wheelchair. Source: [facility] [employer] Protect Document Id: [id number] ICAL INTEGRATION PRACTITIONER documented in this encounter ED Notes Dayan Mccoy R.N. - 03/29/2016 3:20 PM CST ED Pain Assessment ED Pain Assessment Entered On: 03/29/2016 15:20 PHYSICAL INTEGRATION PRACTITIONER Performed On: 03/29/2016 15:20 PHYSICAL INTEGRATION PRACTITIONER by DAYAN MCCOY RN Pain Assessment Pain Symptoms : No DAYAN MCCOY RN - 03/29/2016 15:20 PHYSICAL INTEGRATION PRACTITIONER Source: [facility] Document Id: [id number] PHYSICAL INTEGRATION PRACTITIONER!3 ICAL INTEGRATION PRACTITIONER Dayan Mccoy R.N. - 03/29/2016 3:19 PM CST ED Treatments and Procedures ED Treatments and Procedures Entered On: 03/29/2016 15:19 PHYSICAL INTEGRATION PRACTITIONER Performed On: 03/29/2016 15:19 PHYSICAL INTEGRATION PRACTITIONER by DAYAN MCCOY RN Peripheral IV Peripheral IV Assess/Intervention Grid Peripheral IV #1 IV Activity : Discontinue Removal : Catheter intact Date of Insertion : 03/29/2016 PHYSICAL INTEGRATION PRACTITIONER IV Site : Forearm Laterality : Left Catheter Size : 20 Catheter Type : Safety intima DAYAN MCCOY RN - 03/29/2016 15:19 PHYSICAL INTEGRATION PRACTITIONER [facility] Document Id: [id number] PHYSICAL INTEGRATION PRACTITIONER!11 ICAL INTEGRATION PRACTITIONER Dayan Mccoy R.N. - 03/29/2016 3:19 PM CST ED Disposition Summary ED Disposition Summary Entered On: 03/29/2016 15:20 PHYSICAL INTEGRATION PRACTITIONER Performed On: 03/29/2016 15:19 PHYSICAL INTEGRATION PRACTITIONER by DAYAN MCCOY RN ED Disposition Summary Present in Room During Exam/Procedure : Significant other Mode of Discharge : Ambulatory Transportation : Private vehicle Discharge From ED With : Home Med List Printed Discharge Instructions Given to Patient : Yes Patient Status at Discharge from ED : Improved DAYAN MCCOY RN - 03/29/2016 15:19 PHYSICAL INTEGRATION PRACTITIONER Source: [facility] [employer] Document Id: [id number] PHYSICAL INTEGRATION PRACTITIONER!8 ICAL INTEGRATION PRACTITIONER Yamini Cerda R.N. - 03/29/2016 2:51 PM CST ED Nurse Reassess ED Nurse Reassess Entered On: 03/29/2016 14:52 PHYSICAL INTEGRATION PRACTITIONER Performed On: 03/29/2016 14:51 PHYSICAL INTEGRATION PRACTITIONER by YAMINI CERDA RN Pain Assessment Pain Symptoms : Yes YAMINI CERDA RN - 03/29/2016 14:51 PHYSICAL INTEGRATION PRACTITIONER Pain Scale Pain Scale Verbal 0-10 : Open YAMINI CERDA RN - 03/29/2016 14:51 PHYSICAL INTEGRATION PRACTITIONER Pain Pain Assessment Grid Pain 1 Location : Epigastric Intensity : 3 YAMINI CERDA RN - 03/29/2016 14:51 PHYSICAL INTEGRATION PRACTITIONER GI Reassess GI Patient Stated Symptoms : Diarrhea, Nausea, Vomiting GI Note : Pt states nausea is much better, no vomiting. Eating ice chips. Pt has been up to bathroomonce to void, no stool. IV fluid infusing. YAMINI CERDA RN - 03/29/2016 14:51 PHYSICAL INTEGRATION PRACTITIONER Source: [facility] Document Id: [id number] PHYSICAL INTEGRATION PRACTITIONER!13 ICAL INTEGRATION PRACTITIONER Yamini Cerda R.N. - 03/29/2016 1:24 PM CST ED Primary Assessment Document Has Been Updated ED Primary Assessment Entered On: 03/29/2016 13:31 PHYSICAL INTEGRATION PRACTITIONER Performed On: 03/29/2016 13:24 PHYSICAL INTEGRATION PRACTITIONER by YAMINI CERDA RN Reason For Visit (As Of: 03/29/2016 13:31:17 PHYSICAL INTEGRATION PRACTITIONER) Problems(Active) Disease Gastroesophageal Reflux (GERD ERMELINDA) (ICD-10-CM :K21.9 ) Name of Problem: Disease Gastroesophageal Reflux (GERD ERMELINDA) ; Recorder: CHEO KHAN MD; Confirmation: Confirmed ; Classification: Medical ; Code: K21.9 ; Contributor System: [email or web address] ; Last Updated: 08/12/2015 10:33 CDT ; Life Cycle Status: Active ; Responsible Provider: CHEO KHAN MD; Vocabulary: ICD-10-CM Diagnoses(Active) Vomiting Date: 03/29/2016 ; Diagnosis Type: Reason For Visit ; Confirmation: Complaint of ; ClinicalDx: Vomiting ; Classification: Medical ; Clinical Service: Emergency medicine ; Code: PNED ; Probability: 0 ; Diagnosis Code: [id number] Triage Chief Complaint Description : Pt comes from for further evaluation on nausea, vomiting and diarrhea that started about 0430 this morning. Pt states she is vomiting and having diarrhea about every 30minutes. Unable to keep anything down. Pt was in UC and became dizzy and felt like (Comment: she was going to pass out. [YAMINI CERDA RN - 03/29/2016 13:24 PHYSICAL INTEGRATION PRACTITIONER] ) Information Given By : Patient Present in Room During Exam/Procedure : Alone Mode of Arrival ED : Private vehicle Track : Medical Languages : Sammarinese Patient Informed of Triage Location : Emergency department Vital Signs Assessed : Yes Treatments Prior to Arrival : None Are you ? : No Is Patient Female and 13-50 no hysterectomy : Yes Status : Patient denies YAMINI CERDA RN - 03/29/2016 13:24 PHYSICAL INTEGRATION PRACTITIONER Vital Signs Temperature Core : 36.2 DegC(Converted to: 97.2 DegF) (LOW) Peripheral Pulse Rate : 111 /min (HI) Respiratory Rate : 16 /min Systolic Blood Pressure : 124 mmHg Diastolic Blood Pressure : 77 mmHg NIBP Mean : 93 mmHg BP Location : Left upper extremity SpO2 : 97 % Oxygen Saturation Monitoring Frequency : Intermittent Oxygen Therapy : Room air Height : 169 cm(Converted to: 5 ft 7 inch(es)) YAMINI CERDA RN - 03/29/2016 13:24 PHYSICAL INTEGRATION PRACTITIONER Pain Assessment Pain Symptoms : Yes YAMINI CERDA RN - 03/29/2016 13:24 PHYSICAL INTEGRATION PRACTITIONER Pain Scale Pain Scale Verbal 0-10 : Open YAMINI CERDA RN - 03/29/2016 13:24 PHYSICAL INTEGRATION PRACTITIONER Pain Pain Assessment Grid Pain 1 Location : Epigastric Intensity : 3 YAMINI CERDA RN - 03/29/2016 13:24 PHYSICAL INTEGRATION PRACTITIONER DENNY DCP GENERIC CODE Tracking Acuity : 3 -Urgent Tracking Group : [facility] ED/UC BARBRA YAMINI Escalona RN - 03/29/2016 13:24 PHYSICAL INTEGRATION PRACTITIONER Allergy (As Of: 03/29/2016 13:31:17 PHYSICAL INTEGRATION PRACTITIONER) Allergies (Active) NKA Estimated Onset Date: Unspecified ; Created By: KATIE BRUNNER MD; Reaction Status: Active ; Category: Drug ; Substance: NKA ; Type: Allergy ; Updated By: KATIE BRUNNER MD; Reviewed Date: 03/29/2016 13:26 PHYSICAL INTEGRATION PRACTITIONER ID Screen Drug Resistant Organism : No Travel Within Last 21 Days : No Contact with someone with Ebola : No YAMINI CERDA RN - 03/29/2016 13:24 PHYSICAL INTEGRATION PRACTITIONER Respiratory Airway : Patent Respirations : Unlabored Respiratory Pattern : Regular Oxygen Therapy : Room air YAMINI CERDA RN - 03/29/2016 13:24 PHYSICAL INTEGRATION PRACTITIONER Cardiovascular Heart Rhythm : Regular Skin Color : Normal for ethnicity Skin Description : Dry Skin Temperature : Warm Cardiovascular Detailed Assessment : Yes YAMINI CERDA RN - 03/29/2016 13:24 PHYSICAL INTEGRATION PRACTITIONER CV Detailed CV Patient Stated Symptoms : Dizziness Nail Bed Color : [place] Capillary Refill : Less than 2 seconds Cardiac Rhythm : Sinus rhythm, Sinus tachycardia Edema Assessment : No Cardiovascular Note : Pt noted becoming dizzy while in UC. She got up to go to the bathroom and feltas if she could pass out. Staff states she was pale and diaphoretic. Pt denies any chest pain. YAMINI CERDA RN - 03/29/2016 13:24 PHYSICAL INTEGRATION PRACTITIONER Neurological Last Well Time Known : Not applicable Level of Consciousness : Alert Orientation : Oriented x 3 Characteristics of Speech : Clear YAMINI CERDA RN - 03/29/2016 13:24 PHYSICAL INTEGRATION PRACTITIONER ED Psychosocial Affect/Behavior : Calm, Cooperative, Appropriate Domestic Abuse Concerns : None Behavioral Health Screen/Safety Assmt : No YAMINI CERDA RN - 03/29/2016 13:24 PHYSICAL INTEGRATION PRACTITIONER Gastrointestinal Nutrition ED : Adequate GI Detailed Assessment : Yes YAMINI CERDA RN - 03/29/2016 13:24 PHYSICAL INTEGRATION PRACTITIONER GI Detailed GI Patient Stated Symptoms : Diarrhea, Nausea, Vomiting Bowel Movement Last Date : 03/29/2016 PHYSICAL INTEGRATION PRACTITIONER Stool Description : Liquid Abdomen Description : Symmetric Abdomen Palpation : Soft GI Note : Pt arrives c/o nausea, vomiting and diarrhea that started about 0430 this morning and states she is in the bathroom every 30 minutes. Noted epigastric pain. States she ate a [employer] [facility] last night. Unable to keep anything down. YAMINI CERDA RN - 03/29/2016 13:24 PHYSICAL INTEGRATION PRACTITIONER /OB Assessment Patient Stated Symptoms : None YAMINI CERDA RN - 03/29/2016 13:24 PHYSICAL INTEGRATION PRACTITIONER Musculoskeletal Fall Prevention Education Provided : Yes Standard Safety : Bed in low position, Call device within reach, ID band check YAMINI CERDA RN - 03/29/2016 13:24 PHYSICAL INTEGRATION PRACTITIONER Social Habits Exposure to Tobacco Smoke : Patient smokes, Other: occ alcohol Smoking Status : Current every day smoker Tobacco 2A : Yes Tobacco Use/Currently Using : Yes Tobacco Use/Last 30 Days : Yes Tobacco Use/Last 12 months : Yes Type : Cigarettes: Less than 20 per day Tobacco Use/Advised to Quit : No YAMINI CERDA RN - 03/29/2016 13:24 PHYSICAL INTEGRATION PRACTITIONER Alcohol Use Grid Alcohol Use : Yes Frequency : Occasionally YAMINI CERDA RN - 03/29/2016 13:24 PHYSICAL INTEGRATION PRACTITIONER Recreational Drug Use Grid Drug Use : Current Type : Alcohol Route : Oral Frequency : Other: TWICE A MONTH YAMINI CERDA RN - 03/29/2016 13:24 PHYSICAL INTEGRATION PRACTITIONER Peripheral IV Peripheral IV Assess/Intervention Grid Peripheral IV #1 IV Activity : Start Number of Attempts : 1 Date of Insertion : 03/29/2016 PHYSICAL INTEGRATION PRACTITIONER IV Site : Forearm Laterality : Left Catheter Size : 20 Catheter Type : Safety intima Site Condition : No complications Drainage Description : None Dressing/ Activity : Dry, Intact, Transparent Flow/ Patency : No complications YAMINI CERDA RN - 03/29/2016 13:24 PHYSICAL INTEGRATION PRACTITIONER Source: [facility] POWERCHART Document Id: [id number] PHYSICAL INTEGRATION PRACTITIONER!118 ICAL INTEGRATION PRACTITIONER Natalya Moscoso M.D. - 03/29/2016 1:13 PM CST Vomiting Patient: SILVIA BLANCHARD Age: 30 years Sex: Female : 1985 Author: NATALYA MOSCOSO Attachments: None Associated Diagnosis: Vomiting I Joanie Villareal, am scribing for and in the presence of, JAZMINE Baltazar. Basic Information Time seen: Date & time 03/29/2016 13:14:00. History source: Patient. Arrival mode: Private vehicle. Additional information: Chief Complaint from Nursing Triage Note : Chief Complaint Description 03/29/2016 12:32 PHYSICAL INTEGRATION PRACTITIONER Chief Complaint Description vomiting since 0400 today. Denies pain. Needs something for nausea. . History of Present Illness The patient presents with nausea and vomiting. The onset was 9 hours ago. The course/duration of symptoms is worsening. The exacerbating factor is none. Associated symptoms: abdominal pain and diarrhea. Ms. Blanchard is a 30 year old female who presents to the ED for evaluation of vomiting. The patient has a past medical history of GERD and a diaphragmatic hernia. The patient [facility]. The onset of vomiting and diarrhea was at 4:30AM this morning. She reports that she is vomiting every 20- 30 minutes. The patient ate a spicy chicken sandwich from [employer] last night. The patient complains of abdominal pain from vomiting. She describes the abdominal pain as a throbbing sensation. The abdominal pain intensifies when vomiting. She reports the abdominal pain is mild and constant. The patient is unable to eat or drink due to vomiting. She reports that she felt well yesterday. The patient denies having a fever or dysuria. She denies history of abdominal surgeries. The patient denies having any other medical complications. She denies having any allergies. Patient denies being . Review of Systems Constitutional symptoms: clammy, but no fever. Gastrointestinal symptoms: Abdominal pain, throbbing, nausea, vomiting and diarrhea. Genitourinary symptoms: No dysuria. Allergy/immunologic symptoms: Negative except as documented in HPI. Health Status Allergies: Allergic Reactions (All) NKA. Past Medical/ Family/ Social History Surgical history: Esophagogastroduodenoscopy ([id number]) on 08/12/2015 at 30 Years. Upper GI endoscopy ([id number]) on 08/12/2015 at 30 Years. Other Manually Assisted Delivery (73.59) in the week of 10/03/2004 at 19 Years. Comments: 04/15/2010 19:22 - CARMEN MORALES Hx: 73.59 - 03/21/2013 17:41 - Contributor source changed to PowerChart. Other Artificial Rupture of Membranes (73.09) in the week of 10/03/2004 at 19 Years. Comments: 04/15/2010 19:22 - CARMEN MORALES Hx: 73.09 - 03/21/2013 17:41 - Contributor source changed to PowerChart. Episiotomy (73.6) in the week of 10/03/2004 at 19 Years. Comments: 04/15/2010 19:22 - CARMEN MORALES Hx: 73.6 - 03/21/2013 17:41 - Contributor source changed to PowerChart. Repair of Other Current Obstetric Laceration (75.69) in the week of 10/03/2004 at 19 Years. Comments: 04/15/2010 19:22 - CARMEN MORALES Hx: 75.69 - 03/21/2013 17:41 - Contributor source changed to PowerChart. Cytopathology, slides, cervical or vaginal (the [facility]); manual screening under physician supervision.. ([id number]) in the week of 03/10/2004 at 18 Years. Comments: 04/18/2010 21:45 - CARMEN MORALES Hx: [id number] - LAB-CYTOPATH, SM,D/V,TDS<3SM TECH 03/21/2013 17:41 - Contributor source changed to PowerChart.. Problem list: All Problems (Selected) Disease Gastroesophageal Reflux (GERD ERMELINDA) / K21.9 / Confirmed. Physical Examination Vital Signs: Vital Signs 03/29/2016 12:46 PHYSICAL INTEGRATION PRACTITIONER Temperature Core 36.4 DegC LOW Peripheral Pulse Rate 100 /min Respiratory Rate 22 /min HI SpO2 99 % Systolic Blood Pressure 118 mmHg Diastolic Blood Pressure 74 mmHg Mean Arterial Pressure 89 mmHg BP Location Left upper Blood Pressure Cuff Size Regular , Measurements 03/29/2016 12:46 PHYSICAL INTEGRATION PRACTITIONER Height 169 cm 03/29/2016 12:33 PHYSICAL INTEGRATION PRACTITIONER Height 169 cm , SpO2 03/29/2016 12:46 PHYSICAL INTEGRATION PRACTITIONER SpO2 99 % . General: Alert and mild distress. Skin: Warm, dry and pink. Head: Atraumatic. Neck: Supple and trachea midline. Eye: Extraocular movements are intact. Ears, nose, mouth and throat: Mouth: Mild, dry mucous membranes. Cardiovascular: Regular rate and rhythm and No murmur. Respiratory: Lungs are clear to auscultation and respirations are non-labored. Gastrointestinal: Soft, Non distended and Tenderness: Moderate, epigastric. Musculoskeletal: Normal ROM Psychiatric: Cooperative. Medical Decision Making Results review:Lab results : Lab View 03/29/2016 13:16 PHYSICAL INTEGRATION PRACTITIONER Hgb 15.4 g/dL Hct 45.8 % HI WBC 10.3 x10(9)/L RBC 5.02 x10(12)/L MCV 91.2 fL RDW 13.3 % Platelet 224 x10(9)/L Neutro Absolute 9.04 10(9)/L HI Lymph Absolute 0.54 x10(9)/L LOW Drew Absolute 0.42 x10(9)/L Eos Absolute 0.26 x10(9)/L Baso Absolute 0.02 x10(9)/L Sodium Lvl 141 mmol/L Potassium Lvl 3.8 mmol/L Chloride 103 mmol/L CO2 20 mmol/L LOW AGAP 18 mmol/L HI Alkaline Phosphatase 54 U/L Glucose Lvl 114 mg/dL Creatinine 0.55 mg/dL EGFR (MDRD) >60 mL/min/1.73m2 EGFR (MDRD) >60 mL/min/1.73m2 BUN 11 mg/dL Calcium Lvl 9.3 mg/dL Protein Total 7.7 g/dL Albumin Lvl 4.5 g/dL AST 14 U/L ALT 11 U/L Bili Total 0.6 mg/dL Bili Direct <0.2 mg/dL Lipase Lvl 21 U/L Lactic Acid Lvl 1.2 mmol/L Beta hCG Qnt <0.5 IU/L . D/dx includes gastroenteritis, food-borne illness, . Appendicitis unlikely given no RLQ tenderness. Cholecystitis unlikely given no RUQ tenderness. Reexamination/ Reevaluation Patient is feeling better after IV fluids and Zofran. Labs are stable: Lipase normal, lactate normal, WBC 10. test negative. abdominal re-examined; mild discomfort at the epigastric and left mid-abdomen. No RLQ pain. No rebound tenderness or guarding. Impression and Plan Diagnosis Complaint of Vomiting (Reason For Visit, Emergency medicine, Medical) Plan Condition: Improved, Stable. Disposition: Discharged: to home. Prescriptions: Prescription Branch Service Representative Pharmacy: ondansetron 4 mg oral tablet, disintegrating (Prescribe): 4 mg, 1 tab(s), PO, q8hr, PRN: Nausea, 15 tab(s), 0 Refill(s). Patient was given the following educational materials: VOMITING AND DIARRHEA, Nonspecific (Adult). Follow up with: SOFIE VÁZQUEZ Within As Needed; Follow Up with Primary Care Within As Needed; Return to Emergency Department Within As Needed Return to the ER for worsening abdominal pain, inability to keep fluids down, lightheadedness, or other concerning symptoms.. Counseled: Patient, Family, Regarding diagnosis, Regarding diagnostic results, Regarding treatment plan, Regarding prescription, Patient indicated understanding of instructions. Electronically Signed By: NATALYA MOSCOSO On: 03/29/2016 03:14 PM Modified by and Electronically Signed by: JOANIE VILLAREAL On: 03/29/2016 01:30 PM Source: [facility] Drill MapCHART Document Id: [id number]} ICAL INTEGRATION PRACTITIONER Neal Hunter L.P.N. - 03/29/2016 12:55 PM CST ED Treatments and Procedures ED Treatments and Procedures Entered On: 03/29/2016 12:59 PHYSICAL INTEGRATION PRACTITIONER Performed On: 03/29/2016 12:55 PHYSICAL INTEGRATION PRACTITIONER by NEAL HUNTER LPN Orthostatics Systolic Blood Pressure Supine : 124 mmHg Diastolic Blood Pressure Supine : 69 mmHg Pulse Supine : 114 /min Patient Response Supine : Dizziness Systolic Blood Pressure Standing Immediate : 112 mmHg Diastolic Blood Pressure Standing Immediate : 61 mmHg Pulse Standing Immediate : 155 /min Patient Response Standing Immediate : Dizziness BP Location Orthostatics : Right upper extremity Blood Pressure Cuff Size Orthostatics : Regular NEAL HUNTER LPN - 03/29/2016 12:55 PHYSICAL INTEGRATION PRACTITIONER Source: [facility] POWERCHART Document Id: [id number] PHYSICAL INTEGRATION PRACTITIONER!12 ICAL INTEGRATION PRACTITIONER Sangita Allen R.N. - 03/29/2016 12:32 PM CST ED Triage Assessment Document Has Been Updated ED Triage Assessment Entered On: 03/29/2016 12:33 PHYSICAL INTEGRATION PRACTITIONER Performed On: 03/29/2016 12:32 PHYSICAL INTEGRATION PRACTITIONER by SANGITA ALLEN RN Reason For Visit (As Of: 03/29/2016 12:33:34 PHYSICAL INTEGRATION PRACTITIONER) Problems(Active) Disease Gastroesophageal Reflux (GERD ERMELINDA) (ICD-10-CM :K21.9 ) Name of Problem: Disease Gastroesophageal Reflux (GERD ERMELINDA) ; Recorder: CHEO KHAN MD; Confirmation: Confirmed ; Classification: Medical ; Code: K21.9 ; Contributor System: [email or web address] ; Last Updated: 08/12/2015 10:33 CDT ; Life Cycle Status: Active ; Responsible Provider: CHEO KHAN MD; Vocabulary: ICD-10-CM Diagnoses(Active) Vomiting Date: 03/29/2016 ; Diagnosis Type: Reason For Visit ; Confirmation: Complaint of ; ClinicalDx: Vomiting ; Classification: Medical ; Clinical Service: Emergency medicine ; Code: PNED ; Probability: 0 ; Diagnosis Code: [id number] Triage Chief Complaint Description : vomiting since 399 today. Denies pain. Needs something for nausea. Information Given By : Patient Present in Room During Exam/Procedure : Alone Mode of Arrival ED : Private vehicle Track : Medical Languages : Sammarinese Patient Informed of Triage Location : Urgent Care Treatments Prior to Arrival : None Is Patient Female and 13-50 no hysterectomy : Yes SANGITA ALLEN RN - 03/29/2016 12:32 PHYSICAL INTEGRATION PRACTITIONER Pain Assessment Pain Symptoms : No SANGITA ALLEN RN - 03/29/2016 12:32 PHYSICAL INTEGRATION PRACTITIONER DENNY DENNY Level 1 : No DENNY Level 2 : No DENNY Level 3 : One SANGITA ALLEN RN - 03/29/2016 12:32 PHYSICAL INTEGRATION PRACTITIONER DCP GENERIC CODE Tracking Acuity : 4 -Less Urgent Tracking Group : [facility] ED/ SANGITA ALLEN RN - 03/29/2016 12:32 PHYSICAL INTEGRATION PRACTITIONER Source: [facility] Meteo Protect Document Id: [id number] PHYSICAL INTEGRATION PRACTITIONER!20 ICAL INTEGRATION PRACTITIONER documented in this encounter Miscellaneous Notes Miscellaneous - Conversion, Historical Provider Ser - 03/29/2016 3:20 PM PHYSICAL INTEGRATION PRACTITIONER Coding Summary-Paper Based CODING DATE: 04/08/2016 FINAL [facility] STATUS: * Discharged to Home or Self Care PAYOR: Medicaid ADMIT DX: R11.2 Nausea with vomiting, unspecified REASON FOR VISIT DX: R11.2 Nausea with vomiting, unspecified FINAL DX: PRINCIPAL: R11.2 Nausea with vomiting, unspecified SECONDARY: R19.7 Diarrhea, unspecified R10.13 Epigastric pain F17.210 Nicotine dependence, cigarettes, uncomplicated PROCEDURES DOCTOR NAME DATE NOTE: The code number assigned matches the documented diagnosis and / or procedure in the patient's chart. However, the narrative phrase printed from the coding software may appear abbreviated, or result in slightly different terminology. Coded By: KATYA CHANCE Date Saved: 04/08/2016 01:38 pm Source: [facility] Document Id: [id number] documented in this encounter Plan of Treatment Not on filedocumented as of this encounter Procedures Procedure Name Priority Date/Time Associated Diagnosis Comme nts HEPATIC FUNCTION Routine 03/29/2016 1:16 PM Resul ts for this PANEL, S PHYSICAL INTEGRATION PRACTITIONER procedure are i n the results section. AUTOMATED Routine 03/29/2016 1:16 PM Results f or this DIFFERENTIAL, B PHYSICAL INTEGRATION PRACTITIONER procedure ar e in the results section. BHCG (BETA-HUMAN Routine 03/29/2016 1:16 PM Resul ts for this CHORIONIC PHYSICAL INTEGRATION PRACTITIONER procedure are i n GONADOTROPIN), the results CASIE, S section. CBC WITH Routine 03/29/2016 1:16 PM Results f or this DIFFERENTIAL, B PHYSICAL INTEGRATION PRACTITIONER procedure ar e in the results section. LIPASE, S/P Routine 03/29/2016 1:16 PM Results f or this PHYSICAL INTEGRATION PRACTITIONER procedure are i n the results section. LACTATE, B/P Routine 03/29/2016 1:16 PM Results f or this PHYSICAL INTEGRATION PRACTITIONER procedure are i n the results section. BASIC METABOLIC Routine 03/29/2016 1:16 PM Result s for this PANEL, S/P PHYSICAL INTEGRATION PRACTITIONER procedure are i n the results section. documented in this encounter Results (ABNORMAL) Automated Differential (03/29/2016 1:16 PM PHYSICAL INTEGRATION PRACTITIONER) [facility] gist Method Time Signature Absolute 9.04 (H) 1.70 - POWERCHART Neutrophils 7.00 109L Lymphocytes 0.54 (L) 0.90 - POWERCHART 2.90 X109L Monocytes 0.42 0.30 - POWERCHART 0.90 X109L Eosinophils 0.26 0.05 - POWERCHART 0.50 X109L Absolute 0.02 0.00 - POWERCHART Basophil 0.30 X109L Specimen Anatomical Collection Method Collection Time Receive d Time (Source) Location / / Volume Laterality Blood 03/29/2016 1:16 PM 6 1:16 PHYSICAL INTEGRATION PRACTITIONER PM PHYSICAL INTEGRATION PRACTITIONER Natalya Moscoso M.D. LAB BLOOD ADD-ON Performing Organization Address City/State/ZIP Code Phon e Number POWERCHART (ABNORMAL) CBC with Differential (03/29/2016 1:16 PM PHYSICAL INTEGRATION PRACTITIONER) Analysis Performed At Patho logist Time Signature Leukocytes 10.3 3.4 - 10.5 POWERCHART X109L Erythrocytes 5.02 3.90 - POWERCHART 5.03 C1978Y Hemoglobin 15.4 12.0 - POWERCHART 15.5 GDL Hematocrit 45.8 (H) 34.9 - POWERCHART 44.5 MCV 91.2 82.0 - POWERCHART 98.0 FL HX RDW 13.3 11.9 - POWERCHART 15.5 Platelet Count 224 150 - 450 POWERCHART X109L Specimen (Source) Anatomical Collection Method Collection Time Re ceived Time Location / / Volume Laterality Blood 03/29/2016 1:16 PM PHYSICAL INTEGRATION PRACTITIONER Natalya Moscoso M.D. LAB BLOOD ADD-ON Performing Organization Address City/State/ZIP Code Phon e Number POWERCHART bHCG (Beta-Human Chorionic Gonadotropin), Quantitative (03/29/2016 1:16 PM PHYSICAL INTEGRATION PRACTITIONER) P athologist Signature Beta-HCG, <0.5 <=4.9 IUL POWERCHART Quantitative, S Comment: Yoselin- and postmenopausal females >40 yea rs of age may have detectable hCG concentrations (<14 IU/L) due to pituitary production of hCG. Biotin has been identified by the dave muse as a potential interfering substance. Higher concentrations of biotin may be found in multivitamins, hair/nail supplements, and workout supplements. If the result does not match clinical observat ions, repeat testing after patient refrains from the use of supplements for at least 12 hours. Specimen (Source) Anatomical Collection Method Collection Time Re ceived Time Location / / Volume Laterality Blood 03/29/2016 1:16 PM PHYSICAL INTEGRATION PRACTITIONER Natalya Moscoso M.D. LAB BLOOD ADD-ON Performing Organization Address City/[facility] Code Phon e Number POWERCHART Hepatic Function Panel (03/29/2016 1:16 PM PHYSICAL INTEGRATION PRACTITIONER) P athologist Signature Alanine 11 7 - 45 UL POWERCHART Amniotransferas e, LD Comment: Reference values have not been established for patients that are less than 12 months of age. Albumin, S 4.5 3.5 - 5.2 GDL POWERCHART Comment: Reference values have not been established for patients that are less than 12 months of age. Alkaline Phosphatase, S 54 35 - 105 UL SMOOTH RCHART Aspartate Aminotransferase (AST), S 14 8 - 43 UL POWERCHART Comment: Reference values have not been established for patients that are less than 12 months of age. Bilirubin, Direct, S <0.2 0.0 - 0.3 MGDL SMOOTH RCHART Comment: Reference values have not been established for patients that are less than 12 months of age. Bilirubin, Total, S 0.6 <=1.2 MGDL POWERCHAR T Comment: No estab ref range for patients 84 hours to 1 month of age. Total Protein, S 7.7 6.4 - 8.3 GDL POWERCHAR T Comment: Reference values have not been established for patients that are less than 12 months of age. Specimen (Source) Anatomical Collection Method Collection Time Re ceived Time Location / / Volume Laterality Blood 03/29/2016 1:16 PM PHYSICAL INTEGRATION PRACTITIONER Natalya Moscoso M.D. LAB BLOOD ADD-ON Performing Organization Address City/[facility] Phon e Number POWERCHART Lipase (03/29/2016 1:16 PM PHYSICAL INTEGRATION PRACTITIONER) P athologist Signature Lipase, S 21 13 - 60 UL POWERCHART Comment: Reference ranges have not been established for patients that are less than 16 years of age Specimen (Source) Anatomical Collection Method Collection Time Re ceived Time Location / / Volume Laterality Blood 03/29/2016 1:16 PM PHYSICAL INTEGRATION PRACTITIONER Natalya Moscoso M.D. LAB BLOOD ADD-ON Performing Organization Address City/State/[facility] Code Phon e Number POWERCHART Lactate (03/29/2016 1:16 PM PHYSICAL INTEGRATION PRACTITIONER) P athologist Signature Lactate, P 1.2 0.5 - 2.2 POWERCHART MMOLL Specimen (Source) Anatomical Collection Method Collection Time Re ceived Time Location / / Volume Laterality Blood 03/29/2016 1:16 PM PHYSICAL INTEGRATION PRACTITIONER Natalya Moscoso M.D. LAB BLOOD NON ADD-ON Performing Organization Address City/State/ZIP Code Phon e Number POWERCHART (ABNORMAL) BMP (Basic Metabolic Panel) (03/29/2016 1:16 PM PHYSICAL INTEGRATION PRACTITIONER) P athologist Signature Sodium, S 141 135 - 145 POWERCHART MMOLL Comment: Reference values have not been established for patients that are less than 12 months of age. Potassium, S 3.8 3.6 - 5.2 MMOLL POWERCHART Comment: Reference values have not been established for patients that are less than 12 months of age. Chloride, S 103 98 - 107 MMOLL POWERCHART Comment: Reference values have not been established for patients that are less than 12 months of age. CO2 Total 20 (L) 22 - 29 MMOLL POWERCHART Comment: Reference values have not been established for patients that are less than 12 months of age. BUN (Blood Urea Nitrogen), S 11 6 - 24 MGDL POWERCHART Creatinine 0.55 0.51 - 0.95 MGDL POWERCHART Comment: Reference values have not been establish ed for patients that are <12 months of age. ESTIMATED GFR >60 mL/min/BSA Note: eGFR results will not be calculate d for patients <18 Calcium, Total, S 9.3 8.6 - 10.3 MGDL POWERC NANCE Anion Gap 18 (H) 7 - 15 MMOLL POWERCHART Comment: Less than 2 years- No establish ed reference range. HXeGFR (MDRD) >60 >=60 [id number] POWERCHART eGFR Black/ >60 >=60 [id number] POWERCHART Glucose 114 70 - 139 MGDL POWERCHART Comment: ADA Diagnostic Criteria: -Fasting glucose > or = 126 mg/dL after an 8 hr fast OR -2-Hr glucose > or = to 200 mg/dL during a 75 gram oral load OR -Glucose casual (random) glucose > or = 200 mg/dL plus typical symptoms 3-Hour Glucose Tolerance Diagnostic Cut- offs (after an 8-hour fast): Fasting >=95 mg/dL 1 Hour >=180 mg/dL 2 Hour >=155 mg/dL 3 Hour >=140 mg/dL Reference values have not been establish ed for patients that are less than 12 months of age. Specimen (Source) Anatomical Collection Method Collection Time Re ceived Time Location / / Volume Laterality Blood 03/29/2016 1:16 PM PHYSICAL INTEGRATION PRACTITIONER Natalya Moscoso M.D. LAB BLOOD ADD-ON Performing Organization Address City/State/ZIP Code Phon e Number POWERCHART documented in this encounter Visit Diagnoses Not on filedocumented in this encounter
--- OUTSIDE RECORDS SUMMARY | 2022-02-03 23:56 | XMS_ITS | Encounter Summary ---
:1985 Author Organization [facility] Address [address] [place] [address] Care Team Providers Name Role Phone Unavailable Primary Care Provider Unavailable Encounter Details Date Type Department Care Team Description 06/12/2016 Hospital Encounter HX [facility] Jeff Camarena M.D., Ph.D. [address] [place] [phone] (Wo rk) Social History Tobacco Use Types Packs/Day Years Used Date Smoking Tobacco: Every Day Sex Assigned at Date Recorded Not on file documented as of this encounter Last Filed Vital Signs Vital Sign Reading Time Taken Comments Blood Pressure 126/78 06/12/2016 3:15 PM WASTE COLLECTION DRIVER Pulse 83 06/12/2016 3:15 PM WASTE COLLECTION DRIVER Temperature - - Respiratory Rate - - Oxygen Saturation - - Inhaled Oxygen Concentration - - Weight 83.1 kg (183 lb 3.2 oz) 06/12/2016 3:15 PM WASTE COLLECTION DRIVER Height 169 cm (5' 6.54) 06/12/2016 3:15 PM WASTE COLLECTION DRIVER Body Mass Index 29.1 06/12/2016 3:15 PM WASTE COLLECTION DRIVER documented in this encounter Medications at Time of Discharge Medication Sig Dispensed Refills Start Date End Date docusate sodium Take 1 capsule by mouth 0 017 (COLACE) 100 mg capsule 2 (two) times a day. UNABLE TO FIND Apply 1 application 0 06/06/2016 topically 4 (four) times a day as needed. documented as of this encounter Progress Notes Khalif Camarena M.D., Ph.D. - 06/12/2016 3:09 PM CST [id number] CHIEF COMPLAINT/REASON FOR VISIT Status post hemorrhoidectomy. HISTORY OF PRESENT ILLNESS Mrs. Vasquez is a 27-year-old female who underwent a 2 column hemorrhoidectomy on June 03 2016. I saw her last on June. At that time she was still having significant postoperative perianal pain, but was healing appropriately. She states that yesterday she underwent a bowel movements and had prolapse of tissue concerning for recurrent hemorrhoid. This is anteriorly along her suture line. The patient was very anxious and requested a followup appointment. Mrs. Vasquez states that she is still having significant pain with bowel movements, but not having any real bleeding or signs or symptoms of systemic infection. PHYSICAL EXAMINATION GENERAL: Patient appears very uncomfortable, but in no acute distress. Awake, alert, and oriented. Appropriately interactive. Anxious. RECTUM: Perianal examination is notable for a small 4 to 5 mm skin tag that is somewhat congested and does have some anoderm associated with rectal mucosa. This is along the anterior suture line. Theredoes not appear to be extension up into the rectum. There is no evidence of infection. She is otherwise feeling well. IMPRESSION/REPORT/PLAN Bleeding internal hemorrhoids, Status post 2 column hemorrhoidectomy on June 03 2016. Mrs. Vasquez returns today with concerns of prolapse of rectal tissue. On examination, she has a small area of congested tissue that contained anoderm as well as a small amount of rectal mucosa. I suspect that this is a dog ear related to the excision of the significant perianal skin tag that is slightly prolapsed from within the anal canal. It is quite small and may be partially thrombosed. It isexquisitely tender, but there is no evidence of infection. Otherwise, she has a well-healed suture line. I reassured Mrs. Vasquez that this may be related to her operation, but that it should continueto improve as the edema from her surgery improves. I do not see that this extends up into the rectumand do not believe that it truly represent a recurrent hemorrhoid. I think that she may have a residual skin tag that should soften out over time. I do not know if this will be symptomatic for her or not. I have encouraged her to be patient with this and to continue using stool softeners as needed along with sitz baths and oral analgesics. I have prescribed her hydrocortisone rectal suppositories andencouraged her to use benzocaine or lidocaine jelly for local pain control. She has been using ice. I have refilled her oxycodone prescription, and will plan to see her back in the clinic next week forfollowup. All of her questions were answered. This is a subsequent visit, no charge. Khalif Camaerna M.D., Ph.D./aos Electronically Signed By: KHALIF CAMARENA MD, PhD On: 07/06/2016 04:33 PM Source: [facility] MHSDOLBEYNONRADSYS Document Id: [id number] E COLLECTION DRIVER documented in this encounter Miscellaneous Notes Miscellaneous - Conversion, Historical Provider Ser - 06/30/2016 3:19 PM WASTE COLLECTION DRIVER *General Message From: CHEVY ROWLAND ( Customer Service) Sent: 06/30/2016 15:19:09 WASTE COLLECTION DRIVER Subject: *General Message RX PICKED UP BY .EULOGIO 06/30 Source: [facility] POWERCHART Document Id: [id number] Miscellaneous - Conversion, Historical Provider Ser - 06/29/2016 11:02 AM WASTE COLLECTION DRIVER jarred Document Contains Addenda Addendum by KHALIF CAMARENA MD, PhD on June 30, 2016 15:24:45 WASTE COLLECTION DRIVER From: KHALIF CAMARENA MD, PhD To: [facility]; Sent: 06/30/2016 15:24:45 WASTE COLLECTION DRIVER Subject: RE: jarred Thank you. Addendum by EVELYNE WEINBERG LPN on June 30, 2016 11:46:16 WASTE COLLECTION DRIVER prescription sent to second floor registration desk to be picked up by per patient. Addendum by ROBERT BANSAL LPN on June 30, 2016 08:34:11 WASTE COLLECTION DRIVER From: ROBERT BANSAL LPN ( [facility] Nurse) To: KHALIF CAMARENA MD, PhD; Sent: 06/30/2016 08:34:11 WASTE COLLECTION DRIVER Subject: FW: jarred Addendum by ROBERT BANSAL LPN on June 30, 2016 08:33:56 WASTE COLLECTION DRIVER NEEDS REFILL ON PAIN MEDS. Addendum by EVELYNE WEINBERG LPN on June 30, 2016 08:03:38 WASTE COLLECTION DRIVER left message to return call. From: TIMO VEGA ( Call Center [employer]) To: [place] Nurse; Surgery Nurse; Sent: 06/29/2016 11:02:27 WASTE COLLECTION DRIVER Subject: jarred Caller Name/Relationship: aguilar/spouse Facility/Wing: Call Back # : [phone] Reason for call: needing med refill, in a lot of pain Source: [facility] POWERCHART Document Id: [id number] Miscellaneous - Khalif Camarena M.D., Ph.D. - 06/13/2016 2:25 PM WASTE COLLECTION DRIVER Ambulatory Patient Summary [address] [id number] Visit Information Name: SILVIA VASQUEZ [facility] Number: [id number] Current Date: 06/13/2016 14:25:31 Physicians Attending Provider: KHALIF CAMARENA MD, PhD Primary Care Provider: SOFIE VZÁQUEZ MD [phone] SILVIA VASQUEZ has been given the following [...] Take Indications/Special Instructions/Comments/Notes for Patient Medication Changes/Routing acetaminophen (acetaminophen 500 mg oral tablet) 2 Tablet(s), Oral, every 6 hours as needed for painx 7 day(s) Take as needed for pain or headache. belladonna-opium (belladonna-opium 16.2 mg-60 mg rectal suppository) 1 suppository(ies), Per rectum,every 12 hours as needed for pain docusate (Colace 100 mg oral capsule) 1 cap, Oral, two times a day hydrocortisone topical (hydrocortisone 25 mg rectal suppository) 1 suppository(ies), Per rectum, twotimes a day x 6 day(s) This is a CHANGE Routed to [address] [address] hydrocortisone topical (hydrocortisone 25 mg rectal suppository) 1 suppository(ies), Per rectum, twotimes a day x 14 day(s) ibuprofen (ibuprofen 200 mg oral tablet) 3 Tablet(s), Oral, every 6 hours as needed for Pain x 7 day(s) Take as needed for pain or headache. Take with food or milk. lidocaine topical (Lidocaine Viscous 2% mucous membrane solution) 1 gordy, Topical, four times a day as needed for Pain(Severe) magnesium citrate (magnesium citrate 1.745 g/30 mL oral liquid) 150 Milliliter, Oral, once oxyCODONE (oxyCODONE 5 mg oral tablet) 2 Tablet(s), Oral, every 4 hours as needed for pain x 5 day(s) This is a CHANGE Routed to [facility] oxyCODONE (oxyCODONE 5 mg oral tablet) 2 Tablet(s), Oral, every 4 hours as needed for pain x 7 day(s) Stop Taking the Following Medications: Medication list as of 06-13-16 14:25 Attention: If you have any medications at home that are not on this list, DO NOT take them until youcontact your provider for clarification. Give a copy of your medication list to your primary care provider. Update your medication list any time medications or doses are changed and carry your medication list at all times in case of emergency. Electronically Signed By: KHALIF CAMARENA MD, PhD Signed On:13-JUN-2016 14:25:28 Your Allergies & Intolerances Substance Reaction Symptoms Category Comments No Known Allergies Drug Your Problem List Problem Status Onset Comments Disease Gastroesophageal Reflux (GERD ERMELINDA) Active Hemorrhoids External NOS Active Abuse Tobacco Smoking NOS Active Your Upcoming Appointments Date Time Location Provider 06/15/2016 09:00 [facility] Khalif Perez MD 06/19/2016 09:15 [facility] Khalif Perez MD Attention: Contact your local Clinic if further [...] if you dont have one. Go to [email or web address] and click on Create Your Account. Then, follow the directions to complete the online form. Youll be asked for your [facility] number which you can find at the top of this document. Your Goals/Additional instructions: Source: [facility] POWERCHART Document Id: [id number] E COLLECTION DRIVER Miscellaneous - Khalif Camarena M.D., Ph.D. - 06/13/2016 2:25 PM WASTE COLLECTION DRIVER Ambulatory Discharge Medication List [facility] [address] [place], [place] [id number] Visit Information Name: SILVIA VASQUEZ [facility] Number: [id number] Current Date: 06/13/2016 14:25:30 Attending Provider: KHALIF CAMARENA MD, PhD Primary Care Provider: SOFIE VZÁQUEZ MD [phone] SILVIA VASQUEZ has been given the following list of medications: Your Medications It is important to take your medications as directed. Use a pill box or chart to help remind you to take your medications. Please let your doctor or nurse know if you have problems taking your medications. Medication/Strength How to Take Indications/Special Instructions/Comments/Notes for Patient Medication Changes/Routing acetaminophen (acetaminophen 500 mg oral tablet) 2 Tablet(s), Oral, every 6 hours as needed for painx 7 day(s) Take as needed for pain or headache. belladonna-opium (belladonna-opium 16.2 mg-60 mg rectal suppository) 1 suppository(ies), Per rectum,every 12 hours as needed for pain docusate (Colace 100 mg oral capsule) 1 cap, Oral, two times a day hydrocortisone topical (hydrocortisone 25 mg rectal suppository) 1 suppository(ies), Per rectum, twotimes a day x 6 day(s) This is a CHANGE Routed to [address] [address] hydrocortisone topical (hydrocortisone 25 mg rectal suppository) 1 suppository(ies), Per rectum, twotimes a day x 14 day(s) ibuprofen (ibuprofen 200 mg oral tablet) 3 Tablet(s), Oral, every 6 hours as needed for Pain x 7 day(s) Take as needed for pain or headache. Take with food or milk. lidocaine topical (Lidocaine Viscous 2% mucous membrane solution) 1 gordy, Topical, four times a day as needed for Pain(Severe) magnesium citrate (magnesium citrate 1.745 g/30 mL oral liquid) 150 Milliliter, Oral, once oxyCODONE (oxyCODONE 5 mg oral tablet) 2 Tablet(s), Oral, every 4 hours as needed for pain x 5 day(s) This is a CHANGE Routed to [facility] oxyCODONE (oxyCODONE 5 mg oral tablet) 2 Tablet(s), Oral, every 4 hours as needed for pain x 7 day(s) Stop Taking the Following Medications: Medication list as of 06-13-16 14:25 Attention: If you have any medications at home that are not on this list, DO NOT take them until youcontact your provider for clarification. Give a copy of your medication list to your primary care provider. Update your medication list any time medications or doses are changed and carry your medication list at all times in case of emergency. Electronically Signed By: KHALIF CAMARENA MD, PhD Signed On:13-JUN-2016 14:25:28 Additional Information: Source: [facility] POWERCHART Document Id: [id number] E COLLECTION DRIVER Miscellaneous - Yossi Cisneros L.P.N. - 06/12/2016 3:15 PM CST Adult Certified Phlebotomist Intake/History Adult Certified Phlebotomist Intake/History Entered On: 06/12/2016 15:17 WASTE COLLECTION DRIVER Performed On: 06/12/2016 15:15 WASTE COLLECTION DRIVER by YOSSI CISNEROS LPN Intake Chief Complaint : F/u hemorrhoidectomy Peripheral Pulse Rate : 83 /min Systolic Blood Pressure : 126 mmHg Diastolic Blood Pressure : 78 mmHg NIBP Mean : 94 mmHg BP Location : Left upper extremity Blood Pressure Cuff Size : Regular Height : 169 cm(Converted to: 5 ft 7 inch(es), 67 inch(es)) Actual Weight : 83.1 kg(Converted to: 183 lb 3 oz) Weight Source : Standing scale Dosing Weight Clinic : 83.1 kg Clinic BSA : 1.98 Body Mass Index : 29.1 kg/m2 YOSSI CISNEROS LPN - 06/12/2016 15:15 WASTE COLLECTION DRIVER General Info Information Given By : Patient Languages : Setswana Is Patient Female and 13-50 no hysterectomy : Yes Status : Patient denies Are you ? : No YOSSI CISNEROS LPN - 06/12/2016 15:15 WASTE COLLECTION DRIVER Subjective Pain Symptoms : Yes YOSSI CISNEROS LPN - 06/12/2016 15:15 WASTE COLLECTION DRIVER Pain Scale Pain Scale Verbal 0-10 : Open YOSSI CISNEROS LPN - 06/12/2016 15:15 WASTE COLLECTION DRIVER Effects of Pain Grid Daily Life : Moderate Sleep : Moderate YOSSI CISNEROS LPN 06/12/2016 15:15 WASTE COLLECTION DRIVER Pain Pain Assessment Grid Pain 1 Location : Other: hemorrhoids Laterality : Bilateral Intensity : 6 Quality : Burning, Throbbing YOSSI CISNEROS LPN - 06/12/2016 15:15 WASTE COLLECTION DRIVER Dependent Habits Exposure to Tobacco Smoke : Patient smokes, Other: occ alcohol Smoking Status : Current every day smoker Tobacco 2A : Yes Tobacco Use/Currently Using : Yes Tobacco Use/Last 30 Days : Yes Tobacco Use/Last 12 months : Yes Tobacco Last Use/Month : June Tobacco Last Use/Year : 2016 Type : Cigarettes: Less than 20 per day Tobacco Use/Advised to Quit : Yes YOSSI CISNEROS LPN - 06/12/2016 15:15 WASTE COLLECTION DRIVER Caffeine Use Grid Caffeine Use : None YOSSI CISNEROS LPN - 06/12/2016 15:15 WASTE COLLECTION DRIVER Recreational Drug Use Grid Drug Use : Current Type : Alcohol Route : Oral Frequency : Other: TWICE A MONTH YOSSI CISNEROS LPN - 06/12/2016 15:15 WASTE COLLECTION DRIVER [facility] Document Id: [id number] WASTE COLLECTION DRIVER!55 E COLLECTION DRIVER documented in this encounter Plan of Treatment Not on filedocumented as of this encounter Visit Diagnoses Not on filedocumented in this encounter
--- OUTSIDE RECORDS SUMMARY | 2022-02-03 23:56 | XMS_ITS | Encounter Summary ---
:1985 Author Organization [facility] Address [address] [place] [address] Care Team Providers Name Role Phone Qasim Soria M.D. Primary Care Provider Encounter Details Date Type Department Care Team Description 03/01/2017 Abstract Department of Ophthalmology in Provider, Historical Len Rodarte n [address] [place], [place] [id number] Social History Tobacco Use Types Packs/Day Years Used Date Smoking Tobacco: Every Day Sex Assigned at Date Recorded Not on file documented as of this encounter Plan of Treatment Not on filedocumented as of this encounter Visit Diagnoses Not on filedocumented in this encounter Care Teams Concrete Form Setter Relationship Specialty Start Date End Date Qasim Soria M.D. PCP - General 10/15/16 04/15/17 documented as of this encounter
--- OUTSIDE RECORDS SUMMARY | 2022-02-03 23:56 | XMS_ITS | Encounter Summary ---
:1985 Author Organization [facility] Address [address] [place] [address] Care Team Providers Name Role Phone Unavailable Primary Care Provider Unavailable Encounter Details Date Type Department Care Team Description 02/25/2016 Hospital Encounter HX [facility] Kai Longo M.D. [address] [place], [place] [address] Social History Tobacco Use Types Packs/Day Years Used Date Smoking Tobacco: Never Assessed Sex Assigned at Date Recorded Not on file documented as of this encounter Plan of Treatment Not on filedocumented as of this encounter Visit Diagnoses Not on filedocumented in this encounter
--- OUTSIDE RECORDS SUMMARY | 2022-02-03 23:56 | XMS_ITS | Encounter Summary ---
:1985 Author Organization [facility] Address [address] [place] [address] Care Team Providers Name Role Phone Unavailable Primary Care Provider Unavailable Encounter Details Date Type Department Care Team Description 06/03/2016 Hospital Encounter HX [facility] Yamilet Choe ED, M.D. [address] [place] [phone] (Wo rk) Social History Tobacco Use Types Packs/Day Years Used Date Smoking Tobacco: Every Day Sex Assigned at Date Recorded Not on file documented as of this encounter Last Filed Vital Signs Vital Sign Reading Time Taken Comments Blood Pressure 108/68 06/03/2016 10:16 PM TUBE BLOWER Pulse - - Temperature - - Respiratory Rate 16 06/03/2016 10:16 PM TUBE BLOWER Oxygen Saturation - - Inhaled Oxygen Concentration - - Weight - - Height 169 cm (5' 6.54) 06/03/2016 10:16 PM TUBE BLOWER Body Mass Index - - documented in this encounter Discharge Summaries Sangita Allen, REmekaN. - 06/03/2016 10:19 PM CST ED Discharge Instructions [facility] [address] [facility] [place] [address] Name: SILVIA BLANCHARD Date of : 1985 12:00 AM Visit Date: 06/03/2016 8:40 PM [facility] Number: [id number] Address: [address] [place] [phone] Primary Care Provider: SOFIE VÁZQUEZ MD IMPORTANT: [facility] in [place] would like to thank you for allowing us to assist youwith your healthcare needs. The following includes patient education materials and information regarding your injury/illness. Diagnosis: Pain Rectal Follow-Up Instructions: With: Address: When: KHALIF CAMARENA [address] [place] [address] [facility] (1) Within 2 weeks With: Address: When: Return to Emergency Department Within As Needed Comments: If symptoms worsen. Your Upcoming Appointments: Date Time Location Provider 06/15/2016 09:00 TYRONE Camarena MD, Khalif Lino Patient Education Materials: Treating Hemorrhoids: Surgery Your doctor may recommend surgery to remove hemorrhoids that cause severe symptoms. Your doctor can explain the procedure that will be used. Youll also be told how to get ready for surgery, and what toexpect while you recover. Getting Ready for Surgery Your surgery will be done at a hospital or surgical center. Be sure to follow all your doctors guidelines to prepare for surgery. ?? Tell your doctor what medications you take. This includes aspirin and ibuprofen. Also mention if you take any herbal remedies or supplements. In some cases, you may need to stop taking them a week or two before surgery. ?? Stop smoking. ?? Arrange for an adult family member or friend to give you a ride home after the procedure. ?? Stop eating and drinking before midnight, the night before your surgery. Risks and Complications The possible risks and complications of the treatments described on these pages include: Infection Bleeding Trouble urinating Narrowing of the anal canal (very rare) When to Call Your Doctor After surgery, call your doctor if you have any of the following: Increasing pain Persistent bleeding Fever or chills Inability to move your bowels Trouble urinating The Day of Surgery Arrive at the hospital or surgery center on time. You will be asked to sign some forms and change into a patient gown. Youll then be given an IV (intravenous line), which supplies fluids and medication. You may also be given a laxative or enema to clean stool from your rectum. Just before surgery, alona talk with an anesthesiologist. He or she can explain the type of medication used to prevent pain during surgery. ?? Local anesthesia numbs just the surgical area. ?? Monitored sedation makes you relaxed and drowsy. ?? Regional anesthesia numbs certain areas of your body. ?? General anesthesia lets you sleep during the procedure. Sutures may be used to close your incision. These help the area heal. During Surgery Your doctor will insert an anoscope to view the anal canal. Using surgical tools, the swollen hemorrhoids are then removed. In some cases, the incision is closed with sutures. In other cases, you may have a procedure that closes the incision with jose de jesus. Hemorrhoidectomy with Sutures The hemorrhoids are removed using surgical tools, such as a scalpel or cautery (sealing) device. Theincision is then closed with sutures. In some cases, the incision may be left partially open. This allows fluid to drain and helps the healing process. [place] help prevent tissue in the anal canal from sagging and prolapsing. Stapled Hemorrhoidopexy This procedure uses a special device to remove a ring of tissue from the anal canal. Removing the tissue cuts off blood supply to the hemorrhoids, causing them to shrink. The tissue ring is then secured with jose de jesus. This helps hold the tissue in place. After Surgery Youll be taken to a recovery area to rest for a while. You can usually go home the same day. But in some cases you may need to remain in the hospital overnight. For a short time after surgery you may have nausea, minor bleeding, and discharge. Youll also likely have some pain. To help you feel better,your doctor will prescribe pain medication. You may also be prescribed medications to help make bowel movements easier. ?? [id number] [place] [address]. All rights reserved. This information is not intended as a substitute for professional medical care. Always follow your healthcare professional's instructions. Hemorrhoids,External A hemorrhoid is a local swelling [...] IF YOU ARE CONSTIPATED: You may use zluh-pxu-wfoukkg laxatives such as MILK OF MAGNESIA (mild [...] use METAMUCIL and similar products. These are vxot-kdb-tpfyham fiber supplements. You must drink extra fluids [...] Vomiting blood (red or black color) ?? [id number] [facility], [address] [place] [address]. All rights reserved. This information is not [...] if you dont have one. Go to [email or web address] and click on Create Your Account. Then, follow the directions to complete the online form. Youll be asked for your [facility] number which you can find at the top of this document. ED Tests and Procedures: Order Status Discharge Prescriptions & Home Medications: Medication/Strength Dose Route Frequency Indications/Special Instructions/Comments/Notes traMADol (Ultram 50 mg oral tablet) 50 [...] pain Takeas needed for pain or headache. Comment: Attention: If you have any medications [...] arrange a ride home with a responsible democrat. LO Ward KRISTINA LYNN , or responsible democrat have received this information and my questions have been answered. I have discussed any challenges I see with this plan with the nurse or physician. Patient Signature or Responsible Libertarian/Relationship Date Time Provider Signature Date Time IMPORTANT: [...] arrange a ride home with a responsible democrat. I, SILVIA BLANCHARD , or responsible democrat have received this information and my questions have been answered. I have discussed any challenges I see with this plan with the nurse or physician. Patient Signature or Responsible Libertarian/Relationship Date Time Provider Signature Date Time This document has images extracted. Please consider using [employer] for all your patient education needs. Source: [facility] POWERCHART Document Id: [id number] BLOWER Sangita Allen R.N. - 06/03/2016 10:19 PM CST ED Depart Summary [facility] Emergency Department / Urgent Care Clinical Discharge Summary PERSON INFORMATION Name SILVIA BLANCHARD Age 31 Years 1985 12:00 AM Sex Female Language Ecuadorean PCP SOFIE VÁZQUEZ MD Marital Status Visit Id Visit Reason Rectal pain; post surgical problem Specialty Enc Type Emergency Med Service Emergency Medicine Referred by Track Group [facility] ED/UC Discharge 06/03/2016 10:18 PM Tracking Id [id number] Checkout 06/03/2016 10:18 PM Checkin 06/03/2016 8:40 PM Acuity 4 -Less Urgent Dispo Type * Discharged to Home or Self Care Arrival 06/03/2016 8:40 PM Reg Status Complete LOS 000 01:38 Address: [address] [place] [phone] Comment: PROVIDER INFORMATION Provider Role Provider Contact Time SANGITA ALLEN [employer] SAF[employer]Y OFFICER Nurse 06/03/16 20:41 ILANA CASTRO PA-C ED Provider 06/03/16 20:41 MAYLIN PAGE MD ED Provider 06/03/16 20:45 DIAGNOSIS Pain Rectal Comment: PATIENT EDUCATION INFORMATION Instructions: Treating Hemorrhoids: Surgery; HEMORRHOIDS Follow up: With: Address: When: [facility] [address] [place] [address] [facility] () Within 2 weeks With: Address: When: Return to Emergency Department Within As Needed Comments: If symptoms worsen. Source: [facility] Provident Link Document Id: [id number] BLOWER documented in this encounter Medications at Time of Discharge Medication Sig Dispensed Refills Start Date End Date docusate sodium (COLACE) Take 1 capsule by 0 05/2016 100 mg capsule mouth 2 (two) times a day. documented as of this encounter ED Notes Sangita Allen RJonathan. - 06/03/2016 10:19 PM CST ED Pain Assessment ED Pain Assessment Entered On: 06/03/2016 22:19 TUBE BLOWER Performed On: 06/03/2016 22:19 TUBE BLOWER by SANGITA ALLEN RN Pain Assessment Pain Symptoms : Yes SANGITA ALLEN RN - 06/03/2016 22:19 TUBE BLOWER Source: [facility] Provident Link Document Id: [id number] TUBE BLOWER!3 BLOWER Sangita Allen R.N. - 06/03/2016 10:18 PM CST ED Disposition Summary ED Disposition Summary Entered On: 06/03/2016 22:18 TUBE BLOWER Performed On: 06/03/2016 22:18 TUBE BLOWER by SANGITA ALLEN RN ED Disposition Summary Present in Room During Exam/Procedure : Spouse Mode of Discharge : Ambulatory Transportation : Private vehicle Discharge From ED With : Home Med List Printed Discharge Instructions Given to Patient : Yes Patient Status at Discharge from ED : Improved SANGITA ALLEN RN - 06/03/2016 22:18 TUBE BLOWER Source: [facility] Com Document Id: [id number] TUBE BLOWER!8 BLOWER Sangita Allen R.N. - 06/03/2016 10:16 PM CST ED Nurse Reassess ED Nurse Reassess Entered On: 06/03/2016 22:17 TUBE BLOWER Performed On: 06/03/2016 22:16 TUBE BLOWER by SANGITA ALLEN RN Pain Assessment Pain Symptoms : Yes SANGITA ALLEN RN - 06/03/2016 22:16 TUBE BLOWER Pain Scale Pain Scale Verbal 0-10 : Open Pain Scale Non-Verbal PainAD : Open SANGITA ALLEN RN - 06/03/2016 22:16 TUBE BLOWER Pain Pain Assessment Grid Pain 1 Location : Rectal SANGITA ALLEN RN - 06/03/2016 22:16 TUBE BLOWER PAINAD Breathing : Normal breathing Negative vocalization : Occasional moan/groan. Low level, speech & negative/disapproving quality. Facial expression : Sad, frightened, frown Body language : Tense, distressed, pacing, fidgeting. Consolability : Distracted by voice or touch PAINAD Score : 4 SANGITA ALLEN RN - 06/03/2016 22:16 TUBE BLOWER GI Reassess GI Patient Stated Symptoms : Other: epigastric pain SANGITA ALLEN RN - 06/03/2016 22:16 TUBE BLOWER Source: [facility] POWERCHART Document Id: [id number] TUBE BLOWER!19 BLOWER Maylin Page M.D. - 06/03/2016 9:08 PM CST Rectal pain Patient: SILVIA BLANCHARD Age: 31 years Sex: Female : 1985 Author: MAYLIN PAGE MD Attachments: None Associated Diagnosis: Pain Rectal I, Sudarshan Pinto, am scribing for and in the presence of, Maylin Page MD. Basic Information Time seen: Date & time 06/03/2016 21:04:00. History source: Patient, significant other. Arrival mode: Private vehicle. History limitation: None. Additional information: Chief Complaint from Nursing Triage Note : Chief Complaint Description 06/03/2016 20:43 TUBE BLOWER Chief Complaint Description rectal pain. hemorrhoid surgery today. Tramadol, motrin, tylenol and tucks are not working to relieve pain. . History of Present Illness Ms. Blanchard is a 31 year old female s/p hemorrhoidectomy today at 10:30am. She presents to the ED with complaints of constant rectal pain that is not alleviated with tramadol, 1000mg Tylenol, or 200mgibuprofen since discharge. Patient also complains of chills and shakiness. She has not had a bowel movement but she does report that the packing had fallen out when she urinated. She denies symptoms offever, nausea, vomiting, chest pain, and shortness of breath. Review of Systems Constitutional symptoms: Chills and tremulous, but no fever. Respiratory symptoms: No shortness of breath. Cardiovascular symptoms: No chest pain. Gastrointestinal symptoms: Rectal pain, but no nausea or no vomiting. Health Status Allergies: Allergic Reactions (Selected) NKA. Medications: (Selected) Inpatient Medications Ordered Cipro I.V.: 400 mg, 200 mL, 200 mL/hr, IVPB, Once Prescriptions Prescribed Colace 100 mg oral capsule: 100 mg, 1 cap(s), PO, 2xDay, 30 cap(s), 1 Refill(s) Ultram 50 mg oral tablet: 50 mg, 1 tab(s), PO, q6hr, for 5 day(s), PRN: Pain, 20 tab(s), 0 Refill(s) acetaminophen 500 mg oral tablet: 1,000 mg, 2 tab(s), PO, q6hr, for 7 day(s), Take as needed for pain or headache., PRN: pain, 56 tab(s), 3 Refill(s) ibuprofen 200 mg oral tablet: 600 mg, 3 tab(s), PO, q6hr, for 7 day(s), Take as needed for pain or headache. Take with food or milk., PRN: Pain, 84 tab(s), 1 Refill(s). Past Medical/ Family/ Social History Surgical history: Esophagogastroduodenoscopy ([id number]) on 08/12/2015 at 30 Years. Tubal ligation ([id number]) on 07/16/2011 at 26 Years.. Family history: No family history items have been selected or recorded.. Social history: Family/social situation: . Problem list: All Problems (Selected) Abuse Tobacco Smoking NOS / Z72.0 / Confirmed Disease Gastroesophageal Reflux (GERD ERMELINDA) / K21.9 / Confirmed Hemorrhoids External NOS / K64.4 / Confirmed. Physical Examination Vital Signs: Vital Signs 06/03/2016 21:00 TUBE BLOWER Temperature Core 37.1 DegC Apical Heart Rate 88 /min Respiratory Rate 18 /min SpO2 98 % Systolic Blood Pressure 116 mmHg Diastolic Blood Pressure 94 mmHg >HHI , SpO2 06/03/2016 21:00 TUBE BLOWER SpO2 98 % . CONSTITUTIONAL: --- Well developed, well nourished. PSYCHIATRIC: --- No acute distress. --- Oriented and answers all questions appropriately. EYES: --- No conjunctival pallor. --- No scleral icterus. --- PERRL, normal in size. ENT AND MOUTH: --- Ears, nose, mouth normal in appearance. --- Moist mucous membranes. --- Posterior oropharynx is clear.. NECK: --- Normal appearance and symmetric. --- Midline trachea. CARDIOVASCULAR: --- RRR --- No murmurs/rubs/gallops. --- 2+ radial pulse. RESPIRATORY: --- No increased respiratory effort. --- Clear to auscultation bilaterally. No wheezing, stridor, crackles or rales. ABDOMEN: --- Soft, non-distended, non-tender. --- No hepatomegaly/splenomegaly. --- Rectal exam: Surgical sutures in place from recent hemorrhoidectomy. There is no evidence of swelling, bleeding or drainage. MUSCULOSKELETAL: --- Extremities are warm and well perfused. --- No lower extremity edema. SKIN: --- Skin without rashes or lesions. --- No jaundice. NEUROLOGIC: --- Speech normal. --- No focal motor or sensory deficits. Medical Decision Making Differential Diagnosis:Rectal pain, external hemorrhoid not thrombosed hemorrhoid, not maryellen-rectal abscess, not rectal bleeding. Rationale:Patient presents with post procedural pain. She has only taken one dose of Tylenol 1000 mg, ibuprofen 200 mg, and Tramadol 25 mg since the procedure. I discussed with the patient and her about maximizing the medications dosages. I recommended scheduled Tylenol 1000 mg EVERY 6 hours, i buprofen 600 mg EVERY 6 hours, and Tramadol 1-2 tabs every 4 hours in between these other medications. The patient is already on a stool softener. While in the ED with also did a trial of viscous lidocaine on her rectal area which helped relieve the pain. We treated her acute pain with Dilaudid IM. Frank send her home with more viscous lidocaine to use at home. Upon discharge the patient developed some epigastric pain which is likely secondary to all of the PO meds she received. Her pain resolved with GI cocktail. Documents reviewed:Emergency department nurses' notes, prior records. OrdersLaunch Order Profile (Selected) Inpatient Orders Completed Dilaudid: 1 mg, 1 mL, IM, Once GI Cocktail: 45 mL, PO, Once Toradol: 60 mg, 2 mL, IM, Once lidocaine viscous 2% mucous membrane solution: 15 mL, Topical, Once Deleted traMADol: 100 mg, PO, Once. Impression and Plan Diagnosis Pain Rectal (Discharge, Emergency medicine, Medical) Plan Condition: Stable. Disposition: Medically cleared, Discharged: to home. Patient was given the following educational materials: Treating Hemorrhoids: Surgery, HEMORRHOIDS. Limitations: Limited activity. Follow up with: KHALIF CAMARENA Within 2 weeks; Return to Emergency Department Within As Needed If symptoms worsen.. Counseled: Patient, Family, Regarding diagnosis, Regarding diagnostic results, Regarding treatment plan, Regarding prescription, Patient indicated understanding of instructions. Electronically Signed By: MAYLIN PAGE MD On: 06/05/2016 08:49 PM Modified by and Electronically Signed by: MAYLIN PAGE MD On: 06/05/2016 08:49 PM Source: [facility] POWERCHART Document Id: [id number] BLOWER Sangita Allen R.N. - 06/03/2016 8:43 PM CST ED Primary Assessment Document Has Been Updated ED Primary Assessment Entered On: 06/03/2016 20:45 TUBE BLOWER Performed On: 06/03/2016 20:43 TUBE BLOWER by SANGITA ALLEN RN Reason For Visit (As Of: 06/03/2016 20:45:53 TUBE BLOWER) Problems(Active) Abuse Tobacco Smoking NOS (ICD-10-CM :Z72.0 ) Name of Problem: Abuse Tobacco Smoking NOS ; Recorder:DARIUS PARKS MD; Confirmation: Confirmed ; Classification: Medical ; Code: Z72.0 ; Contributor System: PowerChart ; Last Updated: 05/12/2016 15:21 TUBE BLOWER ; Life Cycle Date: 05/12/2016 ; Life Cycle Status: Active ; Responsible Provider: DARIUS PARKS MD; Vocabulary: ICD-10-CM Disease Gastroesophageal Reflux (GERD ERMELINDA) (ICD-10-CM :K21.9 ) Name of Problem: Disease Gastroesophageal Reflux (GERD ERMELINDA) ; Recorder: CHEO KHAN MD; Confirmation: Confirmed ; Classification: Medical ; Code: K21.9 ; Contributor System: PowerChart ; Last Updated: 08/12/2015 10:33 CDT ; Life Cycle Status: Active ; Responsible Provider: CHEO KHAN MD; Vocabulary: ICD-10-CM Hemorrhoids External NOS (ICD-10-CM :K64.4 ) Name of Problem: Hemorrhoids External NOS ; Recorder: DARIUS PARKS MD; Confirmation: Confirmed ; Classification: Medical ; Code: K64.4 ; Contributor System: PowerChart ; Last Updated: 05/12/2016 15:20 TUBE BLOWER ; Life Cycle Date: 05/12/2016 ; Life Cycle Status: Active ; Responsible Provider: DARIUS PARKS MD; Vocabulary: ICD-10-CM Diagnoses(Active) Rectal pain Date: 06/03/2016 ; Diagnosis Type: Reason For Visit ; Confirmation: Complaint of ; Clinical Dx: Rectal pain ; Classification: Medical ; Clinical Service: Emergency medicine ; Code: PNED ; Probability: 0 ; Diagnosis Code: [id number] Triage Chief Complaint Description : rectal pain. hemorrhoid surgery today. Tramadol, motrin, tylenol and tucks are not working to relieve pain. Information Given By : Patient Present in Room During Exam/Procedure : Significant other Mode of Arrival ED : Private vehicle Track : Medical Languages : Ecuadorean Patient Informed of Triage Location : Emergency department Treatments Prior to Arrival : Home treatments Are you ? : No Is Patient Female and 13-50 no hysterectomy : Yes Status : Patient denies SANGITA ALLEN RN - 06/03/2016 20:43 TUBE BLOWER Pain Assessment Pain Symptoms : Yes SANGITA ALLEN RN 06/03/2016 20:43 TUBE BLOWER Pain Scale Pain Scale Verbal 0-10 : Open SANGITA ALLEN RN - 06/03/2016 20:43 TUBE BLOWER Pain Pain Assessment Grid Pain 1 Location : Rectal SANGITA ALLEN RN - 06/03/2016 20:43 TUBE BLOWER DENNY DENNY Level 1 : No DENNY Level 2 : No DENNY Level 3 : None SANGITA ALLEN RN 06/03/2016 20:43 TUBE BLOWER DCP GENERIC CODE Tracking Acuity : 4 -Less Urgent Tracking Group : [facility] ED/ SANGITA ALLEN RN 06/03/2016 20:43 TUBE BLOWER Respiratory Airway : Patent Respirations : Unlabored Respiratory Pattern : Regular Oxygen Therapy : Room air SANGITA ALLEN RN - 06/03/2016 20:43 TUBE BLOWER Cardiovascular Heart Rhythm : Regular Skin Color : [place] Skin Description : Dry Skin Temperature : Warm SANGITA ALLEN RN - 06/03/2016 20:43 TUBE BLOWER Neurological Last Well Time Known : Not applicable Level of Consciousness : Alert Orientation : Oriented x 3 Characteristics of Speech : Clear SANGITA ALLEN RN - 06/03/2016 20:43 TUBE BLOWER ED Psychosocial Affect/Behavior : Calm Domestic Abuse Concerns : None Behavioral Health Screen/Safety Assmt : No Emotional Support Available : Yes SANGITA ALLEN RN - 06/03/2016 20:43 TUBE BLOWER Gastrointestinal Nutrition ED : Adequate SANGITA ALLEN RN - 06/03/2016 20:43 TUBE BLOWER Musculoskeletal Fall Prevention Education Provided : Yes SANGITA ALLEN RN - 06/03/2016 20:43 TUBE BLOWER Social Habits Exposure to Tobacco Smoke : [...] day Tobacco Use/Advised to Quit : Yes SANGITA ALLEN RN - 06/03/2016 20:43 TUBE BLOWER Alcohol Use Grid Alcohol Use : Yes Frequency : Occasionally SANGITA ALLEN RN - 06/03/2016 20:43 TUBE BLOWER Recreational Drug Use Grid Drug Use : Current Type : Alcohol Route : Oral Frequency : Other: TWICE A MONTH SANGITA ALLEN RN - 06/03/2016 20:43 TUBE BLOWER Source: [facility] Provident Link Document Id: [id number] TUBE BLOWER!73 BLOWER documented in this encounter Miscellaneous Notes Miscellaneous - Conversion, Historical Provider Ser - 06/03/2016 10:18 PM TUBE BLOWER Coding Summary-Paper Based CODING DATE: 06/11/2016 FINAL [facility] STATUS: * Discharged to Home or Self Care PAYOR: Medicaid ADMIT DX: K62.89 Other specified diseases of anus and rectum REASON FOR VISIT DX: K62.89 Other specified diseases of anus and rectum FINAL DX: PRINCIPAL: K62.89 Other specified diseases of anus and rectum SECONDARY: R68.83 Chills (without fever) F17.210 Nicotine dependence, cigarettes, uncomplicated PROCEDURES DOCTOR NAME DATE NOTE: The code number assigned matches the documented diagnosis and / or procedure in the patient's chart. However, the narrative phrase printed from the coding software may appear abbreviated, or result in slightly different terminology. Coded By: SELMA STEINBERG Date Saved: 06/11/2016 09:55 am Source: [facility] Provident Link Document Id: [id number] documented in this encounter Plan of Treatment Not on filedocumented as of this encounter Visit Diagnoses Not on filedocumented in this encounter
--- OUTSIDE RECORDS SUMMARY | 2022-02-03 23:56 | XMS_ITS | Encounter Summary ---
:1985 Author Organization [facility] Address [address] [place] [id number] Care Team Providers Name Role Phone Unavailable Primary Care Provider Unavailable Encounter Details Date Type Department Care Team Description 06/09/2016 Hospital Encounter HX [facility] Jeff Camarena M.D., Ph.D. [address] [place] [id number] (Wo rk) Social History Tobacco Use Types Packs/Day Years Used Date Smoking Tobacco: Every Day Sex Assigned at Date Recorded Not on file documented as of this encounter Last Filed Vital Signs Vital Sign Reading Time Taken Comments Blood Pressure 117/73 06/09/2016 1:10 PM LAND CLASSIFIER Pulse 82 06/09/2016 1:10 PM LAND CLASSIFIER Temperature - - Respiratory Rate - - Oxygen Saturation - - Inhaled Oxygen Concentration - - Weight 82.5 kg (181 lb 14.1 oz) 06/09/2016 1:10 PM LAND CLASSIFIER Height 169 cm (5' 6.54) 06/09/2016 1:10 PM LAND CLASSIFIER Body Mass Index 28.89 06/09/2016 1:10 PM LAND CLASSIFIER documented in this encounter Medications at Time of Discharge Medication Sig Dispensed Refills Start Date End Date docusate sodium Take 1 capsule by mouth 0 017 (COLACE) 100 mg capsule 2 (two) times a day. UNABLE TO FIND Apply 1 application 0 06/06/2016 topically 4 (four) times a day as needed. documented as of this encounter Progress Notes Khalif Camarena M.D., Ph.D. - 06/09/2016 1:00 PM CST GIGS-SV CHIEF COMPLAINT/REASON FOR VISIT Status post hemorrhoidectomy. HISTORY OF PRESENT ILLNESS Mrs. Vasquez is a 31-year-old female, who underwent 2 column hemorrhoidectomy on June 03, 2016. She returns today for postoperative followup. She states that aside from pain she continues to do well. She had a small amount of bleeding with defecation. Pain has been considerable but pain managementhas improved with addition of oxycodone to her outpatient regimen. She was seen by my colleague, Dr.Megan Gilliland to this regard on June 04, 2016. PHYSICAL EXAMINATION GENERAL: Mrs. Vasquez appears uncomfortable but otherwise well and in no acute distress. Awake, alert, and oriented. Appropriately interactive. RECTUM: Perianal examination reveals the presence of intact suture line without evidence of infection. There is a small amount of residual skin tag external to the anal verge particularly anteriorly atthe site of the most significant dissection. IMPRESSION/REPORT/PLAN Bleeding internal hemorrhoids, status post 2 column hemorrhoidectomy on June 03, 2016. Mrs. Vasquez returns today. Aside from considerable pain she seems to be making an appropriate recovery. She had a small amount of bleeding with defecation but this does seem to be improving. I have written her a prescription for the hydrocortisone suppositories and refilled her oxycodone prescription. She also did receive a prescription for topical lidocaine cream and B and O suppositories which she has been using to a limited degree. I will plan to see Mrs. Vasquez back in approximately a week to reassess her symptoms. She knows that she can contact me at any point of time in the future if she develops any changes to her symptoms or worsening, questions or concerns. All of her questions were an swered. This is a subsequent visit, no charge. Khalif Camarena M.D., Ph.D./aos Electronically Signed By: KHALIF CAMARENA MD, PhD On: 07/06/2016 04:34 PM Source: [facility] MHSDOLBEYNONRADSYS Document Id: [id number] CLASSIFIER documented in this encounter Miscellaneous Notes Miscellaneous - Khalif Camarena M.D., Ph.D. - 06/12/2016 11:20 PM LAND CLASSIFIER Ambulatory Patient Summary [facility] [address] [place], [place] [id number] Visit Information Name: SILVIA VASQUEZ [facility] Number: [id number] Current Date: 06/12/2016 23:20:50 Physicians Attending Provider: KHALIF CAMARENA MD, PhD Primary Care Provider: SOFIE VÁZQUEZ MD [id number] SILVIA VASQUEZ has been given the following [...] day(s) This is a CHANGE Routed to [facility] [address] [place] [address] hydrocortisone topical (hydrocortisone 25 mg rectal suppository) [...] day(s) This is a CHANGE Routed to [facility] oxyCODONE (oxyCODONE 5 mg oral tablet) 2 Tablet(s), Oral, every 4 hours as needed for pain x 7 day(s) Stop Taking the Following Medications: Medication list as of 06-12-16 23:20 Attention: If you have any medications at [...] Signed By: KHALIF CAMARENA MD, PhD Signed On:12-JUN-2016 23:20:46 Your Allergies & Intolerances Substance Reaction Symptoms Category Comments No Known Allergies Drug Your Problem List Problem Status Onset Comments Disease Gastroesophageal Reflux (GERD ERMELINDA) Active Hemorrhoids External NOS Active Abuse Tobacco Smoking NOS Active Your Upcoming Appointments Date Time Location Provider 06/15/2016 09:00 Khalif Neri MD 06/19/2016 09:15 Khalif Prabhakar MD Attention: Contact your local Clinic if [...] if you dont have one. Go to [email or web address] and click on Create Your Account. Then, follow the directions to complete the online form. Youll be asked for your [facility] number which you can find at the top of this document. Your Goals/Additional instructions: Source: [facility] POWERCHART Document Id: [id number] CLASSIFIER Miscellaneous - Khalif Camarena M.D., Ph.D. - 06/12/2016 11:20 PM LAND CLASSIFIER Ambulatory Discharge Medication List [facility] [address] [place], [place] [phone] Visit Information Name: SILVIA VASQUEZ [facility] Number: [id number] Current Date: 06/12/2016 23:20:49 Attending Provider: KHALIF CAMARENA MD, PhD Primary Care Provider: SOFIE VÁZQUEZ MD [id number] SILVIA VASQUEZ has been given the following [...] day(s) This is a CHANGE Routed to [facility] [address] [place] [address] hydrocortisone topical (hydrocortisone 25 mg rectal suppository) [...] day(s) This is a CHANGE Routed to [facility] oxyCODONE (oxyCODONE 5 mg oral tablet) 2 Tablet(s), Oral, every 4 hours as needed for pain x 7 day(s) Stop Taking the Following Medications: Medication list as of 06-12-16 23:20 Attention: If you have any medications at [...] Signed By: KHALIF CAMARENA MD, PhD Signed On:12-JUN-2016 23:20:46 Additional Information: Source: [facility] POWERCHART Document Id: [id number] CLASSIFIER Miscellaneous - Conversion, Historical Provider Ser - 06/12/2016 12:19 PM LAND CLASSIFIER *General Message Document Contains Addenda Addendum by TRELL BUNN on June 12, 2016 14:22:43 LAND CLASSIFIER Scheduled. Addendum by YOSSI DOWNING LPN on June 12, 2016 13:50:03 LAND CLASSIFIER Noted Addendum by KHALIF CAMARENA MD, PhD on June 12, 2016 13:31:13 LAND CLASSIFIER From: KHALIF CAMARENA MD, PhD To: YADIRA Camarena Nurse; TRELL BUNN; Sent: 06/12/2016 13:31:13 LAND CLASSIFIER Subject: RE: *General Message Please add her to the schedule at 3:15. Thanks. Addendum by YOSSI DOWNING LPN on June 12, 2016 13:24:45 LAND CLASSIFIER From: YOSSI DOWNING LPN ( [facility]) To: KHALIF CAMARENA MD, PhD; Sent: 06/12/2016 13:24:45 LAND CLASSIFIER Subject: FW: *General Message Addendum by YOSSI DOWNING LPN on June 12, 2016 13:24:15 LAND CLASSIFIER Spoke with pts spouse below. Pt recently had a hemorrhoidectomy and also had a f/u appt. Spouse now reports pt had a BM yesterday and it looks like pt has another hemorrhoid and would like to be seen today. Please advise. Addendum by YOSSI DOWNING LPN on June 12, 2016 13:16:02 LAND CLASSIFIER Called pt -line is busy. Will try back From: TIMO VEGA ( [employer] [facility] Residential Real Estate Agent) To: YADIRA Dial Nurse; Sent: 06/12/2016 12:19:32 LAND CLASSIFIER Subject: *General Message Caller Name/Relationship: aguilar/spouse Facility/Wing: Call Back # : [phone] Reason for call: had surgery over a week ago and is concerned about the surgical area, would like kelle to look at it today Source: [facility] POWERCHART Document Id: [id number] Miscellaneous - Rosario Perkins, C.M.A. - 06/09/2016 1:10 PM CST Adult Software Computer Specialist Intake/History Adult Software Computer Specialist Intake/History Entered On: 06/09/2016 13:13 LAND CLASSIFIER Performed On: 06/09/2016 13:10 LAND CLASSIFIER by ROSARIO PERKINS [facility] Intake Chief Complaint : F/u hemorrhoidectomy 06/03. C/o constant pain and bleeding. Rates pain a /10. Has only had 1 bm since surgery. Temperature Core : 36.5 DegC(Converted to: 97.7 DegF) Peripheral Pulse Rate : 82 /min Systolic Blood Pressure : 117 mmHg Diastolic Blood Pressure : 73 mmHg NIBP Mean : 88 mmHg BP Location : Left upper extremity Blood Pressure Cuff Size : Regular Oxygen Therapy : Room air Height : 169 cm(Converted to: 5 ft 7 inch(es), 67 inch(es)) Actual Weight : 82.5 kg(Converted to: 181 lb 14 oz) Weight Source : Standing scale Dosing Weight Clinic : 82.5 kg Clinic BSA : 1.97 Body Mass Index : 28.89 kg/m2 ROSARIO PERKINS [facility] 06/09/2016 13:10 LAND CLASSIFIER General Info Information Given By : Patient Preferred Communication Mode : Verbal Languages : Citizen Of [place] Is Patient Female and 13-50 no hysterectomy : Yes Status : Patient denies Are you ? : No ROSARIO PERKINS [facility] 06/09/2016 13:10 LAND CLASSIFIER Subjective Pain Symptoms : Yes ROSARIO PERKINS [facility] 06/09/2016 13:10 LAND CLASSIFIER Pain Scale Pain Scale Verbal 0-10 : Open ROSARIO PERKINS [facility] 06/09/2016 13:10 LAND CLASSIFIER Pain Pain Assessment Grid Pain 1 Location : Buttock Laterality : Bilateral Intensity : 6 ROSARIO PERKINS [facility] 06/09/2016 13:10 LAND CLASSIFIER Dependent Habits Exposure to Tobacco Smoke : [...] Quit : Yes Alcohol Use : Yes ROSARIO PERKINS [facility] 06/09/2016 13:10 LAND CLASSIFIER Caffeine Use Grid Caffeine Use : None ROSARIO PERKINS [facility] 06/09/2016 13:10 LAND CLASSIFIER Recreational Drug Use Grid Drug Use : Current Type : Alcohol Route : Oral Frequency : Other: TWICE A MONTH ROSARIO PERKINS [facility] 06/09/2016 13:10 LAND CLASSIFIER Source: [facility] POWERCHART Document Id: [id number] LAND CLASSIFIER!55 CLASSIFIER documented in this encounter Plan of Treatment Not on filedocumented as of this encounter Visit Diagnoses Not on filedocumented in this encounter
--- OUTSIDE RECORDS SUMMARY | 2022-02-03 23:56 | XMS_ITS | Encounter Summary ---
:1985 Author Organization [facility] Address [address] [place] [address] Care Team Providers Name Role Phone Unavailable Primary Care Provider Unavailable Encounter Details Date Type Department Care Team Description 06/03/2016 Hospital Encounter HX [facility] Gayle Morrison M.D., Ph.D. [address] [place], [place] [phone] (Wo rk) Social History Tobacco Use Types Packs/Day Years Used Date Smoking Tobacco: Every Day Sex Assigned at Date Recorded Not on file documented as of this encounter Last Filed Vital Signs Vital Sign Reading Time Taken Comments Blood Pressure 104/72 06/03/2016 2:30 PM SIDING STAPLER Pulse - - Temperature - - Respiratory Rate 18 06/03/2016 2:30 PM SIDING STAP[facility]ER Oxygen Saturation - - Inhaled Oxygen Concentration - - Weight 81.6 kg (179 lb 14.3 oz) 06/03/2016 8:56 AM [facility] Height 169 cm (5' 6.54) 06/03/2016 2:45 PM [facility] Body Mass Index 28.57 06/03/2016 8:56 AM SIDING STAPLER documented in this encounter Discharge Summaries Susan Cates, R.N. - 06/03/2016 2:31 PM CST Discharge Summary Discharge Summary Entered On: 06/03/2016 14:31 SIDING STAP[facility]ER Performed On: 06/03/2016 14:31 [facility]IDING [facility]ER by SUSAN CATES RN DC Information Discharged to : Home with family care Current Home Treatments : None Home Equipment : None Professional Skilled Services : None Special Services and Community Resources : None Mode of Discharge : Wheelchair Discharge Transportation : Private vehicle Accompanied By : Nurse SUSAN CATES RN - 06/03/2016 14:31 SIDING STAPLER Education General Patient Education Powergrid Topics : Discharge instructions/Medication list, Importance of follow-up visits, Medication dosage, route, scheduling, Patient rights and responsibilities, Physical limitations, Plan of care, Unit procedures, When to call health care provider, Wound care Individuals Taught : Patient Barriers to Learning : None evident Teaching Method : Explanation, Printed materials Teaching Evaluation : Verbalizes understanding SUSAN CATES RN - 06/03/2016 14:31 SIDING STAP[facility]ER Valuables/Belongings Valuables/Belongings Grid Valuables at Bedside Clothes, Patient Valuables : Jacket, Pants, Shirt, Shoes, Undergarments Jewelry : Bracelet Personal Devices : None SUSAN CATES RN - 06/03/2016 14:31 SIDING STAPLER Room Orientation/Facility Policy Reviewed : Yes Belongings Sent Home With : patient SUSAN CATES RN - 06/03/2016 14:31 SIDING STAPLER [facility] Document Id: [id number] SIDING STAPLER!26 NG STAPLER Gayle Camarena M.D., Ph.D. - 06/03/2016 12:00 AM CST [id number] ADMISSION DATE: 06/03/2016 DISCHARGE DATE: 06/03/2016 ADMITTING DIAGNOSIS Postoperative pain, status post 2 column hemorrhoidectomy on June 03, 2016. DISCHARGE DIAGNOSES 1. Postoperative pain, status post 2 column hemorrhoidectomy on June 03, 2016. 2. Nicotine dependence. 3. Gastroesophageal reflux disease. BRIEF HOSPITAL NARRATIVE Mrs. Vasquez is a 31-year-old female who underwent outpatient hemorrhoidectomy on June 03, 2016.She continued to have perianal pain and was ultimately seen in the Emergency Department on June 15, 2016 with severe pain and concerns for perianal or presacral abscess. CT imaging and laboratory studies did not support the diagnosis of presacral abscess but due to her poorly controlled pain, the decision was made to admit to the hospital. The patient did slightly better with topical agents and oral medications provided throughout her hospitalization. At the time of discharge, she was using 2 to4 tablets of oxycodone every 4 hours as well as 10 mg of Valium for anxiety and perianal spasm. Rectal suppositories were prescribed but the patient previously was unable to afford these. A high school social studies teacher was consulted to assist with financial arrangements. At the time of dismissal, Mrs. Vasquez's wounds were continuing to heal nicely and her perianal edema had improved. Arrangements were made for her to follow up with her surgeon in the clinic within 1 week's time. DISCHARGE CONDITION Stable. DISCHARGE MEDICATIONS <__IM_1: Unclear __> DISCHARGE FOLLOWUP With surgeon within 5 days. Gayle Camarena M.D., Ph.D./aos Electronically Signed By: GAYLE CAMARENA MD, PhD On: 07/06/2016 04:46 PM Source: [facility] MHSDOLBEYNONRADSYS Document Id: [id number] NG STAPLER documented in this encounter Medications at Time of Discharge Medication Sig Dispensed Refills Start Date End Date docusate sodium (COLACE) Take 1 capsule by 0 05/2016 100 mg capsule mouth 2 (two) times a day. documented as of this encounter Procedure Notes Susan Cates RJonathan. - 06/03/2016 3:30 PM CST Peripheral IV Peripheral IV Entered On: 06/03/2016 16:14 SIDING STAPLER Performed On: 06/03/2016 15:30 SIDING STAP[employer]ER by SUSAN CATES RN Peripheral IV Peripheral IV Assess/Intervention Grid Peripheral IV #1 IV Activity : Discontinue Date of Insertion : 06/03/2016 SIDING STAPLER IV Site : Antecubital Laterality : Left Catheter Size : 20 Catheter Type : Protective SUSAN CATES RN - 06/03/2016 16:14 SIDING STAPLER Source: [facility] POWERCHART Document Id: [id number] SIDING STAPLER!10 NG STAPLER Susan Cates REmekaN. - 06/03/2016 8:56 AM CST Preprocedure Checklist Document Has Been Updated Preprocedure Checklist Entered On: 06/03/2016 9:02 SIDING STAP[employer]ER Performed On: 06/03/2016 8:56 SIDING STAPLER by SUSAN CATES RN Checklist Last Fluid Intake : 06/02/2016 23:59 SIDING STAPLER Last Food Intake : 06/02/2016 18:00 SIDING STAPLER SUSAN CATES RN - 06/03/2016 8:56 SIDING STAPLER Surgery Prep Grid Contacts/Glasses Removed : NA Dentures Removed : NA Hairpins/Hairpiecies Removed : NA Hearing Aid Removed : NA Home Prep Complete : NA Jewelry/Piercing Removed : Yes Makeup/Nail Algerian Removed : NA Oral Hygiene : Yes Preop Scrub AM of Surgery : NA Preop Scrub Night Prior to Surgery : NA Prosthesis Removed : NA Tampon Removed : NA Verified - No hair products used : NA Voided solar installation helper to procedure : NA Wearing Patient Gown : Yes SUSAN CATES RN - 06/03/2016 8:56 SIDING STAPLER Pain Symptoms : No SUSAN CATES RN - 06/03/2016 8:56 SIDING STAPLER Patient Rights Grid Blood Consent Signed : ANTONIO Surgical/Procedure Consent Signed : Yes SUSAN CATES RN - 06/03/2016 8:56 SIDING STAPLER Family Location : [facility]- SUSAN CATES RN - 06/03/2016 8:56 SIDING STAPLER Checklist II Patient Safety Grid Allergy Band on and Verified : NA Anesthesia Consult : Yes Band on for Limb Alert : NA Blood Band on and Verified : NA Current H&P in Medical Record : Yes Medication Reconciliation on Chart : Yes ID Band on and Verified : Yes Preop Medications Sent With Patient : Yes Relevant Images in Medical Record : NA Review of Labs : NA Procedure/Site Verified by Patient/Family : Yes Procedure/Site Verified by RN : Yes Procedure/Site Verified by Physician : Yes Type & Screen/Type & Cross Completed : SUSAN YOUNG RN - 06/03/2016 8:56 SIDING STAPLER RN Who Verified Site : SUSAN CATES RN Physician Who Verified Site : GAYLE CAMARENA MD, PhD EHSUSAN PENA RN - 06/03/2016 8:56 SIDING STAPLER LUIS MIGUEL Screening Known Obstructive Sleep Apnea : No - NOT diagnosed with LUIS MIGUEL LUIS MIGUEL Score : No qualifying data available. LUIS MIGUEL Results : No qualifying data available. SUSAN CATES RN - 06/03/2016 8:56 SIDING STAPLER LUIS MIGUEL Assessment Do you have high blood pressure or have you been told to take medication for high blood pressure? : No Frequency of Snoring : Often (1-2 times per week) Frequency of Gasping, Choking, Snorting : Never Total Number of Historical Features : 0 Neck Circumference (cm) : 34/35 Total Sleep Apnea Clinical Score Calc : 1 SUSAN CATES RN - 06/03/2016 8:56 SIDING STAPLER Valuables/Belongings Valuables/Belongings Grid Valuables at Bedside Clothes, Patient Valuables : Jacket, Pants, Shirt, Shoes, Undergarments Jewelry : Bracelet Personal Devices : None SUSAN CATES RN - 06/03/2016 8:56 SIDING STAPLER Room Orientation/Facility Policy Reviewed : Yes SUSAN CATES RN - 06/03/2016 8:56 SIDING STAPLER Education Preprocedure Education Grid Procedure Type : hemorroidectomy Education Topics : Anesthesia/Sedation, Family instructions, Pain management, Patient rights and responsibilities, Plan of care, Tubes/Drains/IV's Individuals Taught : Patient Barriers to Learning : None evident Teaching Method : Explanation Teaching Evaluation : Verbalizes understanding SUSAN CATES RN - 06/03/2016 8:56 SIDING STAPLER Advance Directive Advanced Directives : No Advance Directive Additional Information : No SUSAN CATES RN - 06/03/2016 8:56 SIDING STAPLER Vital Signs Temperature Core : 36.3 DegC(Converted to: 97.3 DegF) (LOW) Apical Heart Rate : 75 /min Respiratory Rate : 18 /min Systolic Blood Pressure : 130 mmHg Diastolic Blood Pressure : 81 mmHg NIBP Mean : 97 mmHg SpO2 : 95 % Oxygen Saturation Monitoring Frequency : Intermittent Oxygen Therapy : Room air Height : 169 cm(Converted to: 5 ft 7 inch(es)) Actual Weight : 81.6 kg Actual Weight Conversion to Pounds : 179.52 lb Body Mass Index : 28.57 kg/m2 SUSAN CATES RN - 06/03/2016 8:56 SIDING STAPLER Allergy (As Of: 06/03/2016 09:02:22 SIDING STAPLER) Allergies (Active) NKA Estimated Onset Date: Unspecified ; Created By: KATIE BRUNNER MD; Reaction Status: Active ; Category: Drug ; Substance: NKA ; Type: Allergy ; Updated By: KATIE BRUNNER MD; Reviewed Date: 06/03/2016 9:02 SIDING STAPLER Source: [facility] POWERCHART Document Id: [id number] SIDING STAPLER!87 NG STAPLER documented in this encounter Nursing Notes Susan Cates R.N. - 06/03/2016 9:02 AM CST Day Surgery Admission History/Asmt Adult Day Surgery Admission History/Asmt Adult Entered On: 06/03/2016 9:04 SIDING STAPLER Performed On: 06/03/2016 9:02 SIDING STAPLER by SUSAN CATES RN General Info Preferred Name : jarrett Admitted From : Non-Health Care Facility Point of Origin Languages : Czech Is Patient Female and 13-50 no hysterectomy : No SUSAN CATES RN - 06/03/2016 9:02 SIDING STAPLER Nutrition Have you recently lost weight without trying? : No Decreased Appetite Nutrition : No Tube Feedings or Parenteral Nutrition : No MST Score : 0 SUSAN CATES RN - 06/03/2016 9:02 SIDING STAPLER Home Environment Current Daily Living Assistance : None Living Situation : Home independently SUSAN CATES RN - 06/03/2016 9:02 SIDING STAPLER Dependent Habits Exposure to Tobacco Smoke : [...] day Tobacco Use/Advised to Quit : Yes SUSAN CATES RN - 06/03/2016 9:02 SIDING STAPLER Caffeine Use Grid Caffeine Use : None SUSAN CATES RN - 06/03/2016 9:02 SIDING STAPLER Recreational Drug Use Grid Drug Use : Current Type : Alcohol Route : Oral Frequency : Other: TWICE A MONTH SUSAN CATES RN - 06/03/2016 9:02 SIDING STAPLER Psychosocial Adult Domestic Abuse Concerns : None Behavioral Health Screen/Safety Assmt : No Roman Catholic Preference : No Roman Catholic Affiliation SUSAN CATES RN - 06/03/2016 9:02 SIDING STAPLER Advance Directive Advanced Directives : No Advance Directive Additional Information : No SUSAN CATES RN - 06/03/2016 9:02 SIDING STAPLER Educ Needs Patient/Family Education Needs : Plan of care, Postoperative instructions, Preoperative instructions, Surgery SUSAN CATES RN - 06/03/2016 9:02 SIDING STAPLER Learning Style Preference Adult Grid Patient : Demonstration, Printed materials, Verbal explanation, Video/Educational TV Family : Demonstration, Printed materials, Verbal explanation, Video/Educational TV SUSAN CATES RN - 06/03/2016 9:02 SIDING STAPLER Education Preprocedure Education Grid Procedure Type : hemorroidectomy Education Topics : Anesthesia/Sedation, Family instructions, Pain management, Patient rights and responsibilities, Plan of care, Tubes/Drains/IV's Individuals Taught : Patient Barriers to Learning : None evident Teaching Method : Explanation Teaching Evaluation : Verbalizes understanding SUSAN CATES RN - 06/03/2016 9:02 SIDING STAPLER Outpatient Assessment Procedural Respiratory : Respirations unlabored, Respiratory pattern regular, No cough Procedural Cardiovascular : Heart rhythm regular, Skin dry and warm Procedural Neurological : Alert, Oriented x 3, Gait steady Procedural Gastrointestinal : Abdomen non-tender and soft Procedural Genitourinary : Voiding, no difficulties Procedural Integumentary : Skin integrity intact Procedural Musculoskeletal : Activity tolerance without distress SUSAN CATES RN - 06/03/2016 9:02 SIDING STAPLER Psycho/Emotional Affect/Behavior : Calm, Cooperative, Appropriate Pain Symptoms : No SUSAN CATES RN - 06/03/2016 9:02 SIDING STAPLER Peripheral IV Peripheral IV Assess/Intervention Grid Peripheral IV #1 IV Activity : Start Number of Attempts : 1 Date of Insertion : 06/03/2016 SIDING STAPLER IV Site : Antecubital Laterality : Left Catheter Size : 20 Catheter Type : Protective SUSAN CATES RN - 06/03/2016 9:28 SIDING STAPLER Lázaro Sensory Perception Lázaro : No impairment Moisture Lázaro : Rarely moist Activity Lázaro : Walks frequently Mobility Lázaro : No limitations Nutrition Lázaro : Excellent Friction and Shear Lázaro : No apparent problem Lázaro Score : 23 SUSAN CATES RN - 06/03/2016 9:11 SIDING STAPLER Source: [employer] Document Id: [id number] SIDING STAPLER!11 NG STAPLER Susan Cates R.N. - 06/03/2016 8:45 AM CST Protocol Vascular Access Adult Protocol Vascular Access Adult Entered On: 06/03/2016 8:45 SIDING STAPLER Performed On: 06/03/2016 8:45 SIDING STAPLER by SUSAN CATES logistics center manager Access Adult Protocol Age 15 years or older Adult Protocol : Yes Vascular Access Device Adult : Yes Exclusion Criteria Adult Vascular Access Protocol : Patient has none of the below exclusions Vascular Access Protocol Status Adult : Criteria Met SUSAN CATES RN - 06/03/2016 8:45 SIDING STAPLER Source: [employer] Document Id: [id number] SIDING STAPLER!6 NG STAPLER documented in this encounter OR Notes Op Note - Bacilio Hobbs M.D. - 06/03/2016 8:47 AM CST Anes, Pre Op PREANESTHESIA EVALUATION PROCEDURE INFORMATION Proceduralist Frunzac Pre-Procedure Indication Hemorrhoids Procedure Planned Hemorrhoidectomy Surgeon Requested Anesthesia Type _ HEIGHT AND WEIGHT H 169 cm W 81.6kg * Required STATUS * [x_] FINALIZED [_] PROCEDURE CANCELLED ASA PHYSICAL STATUS * _2 ANESTHETIC / SEDATION PLAN * [_] General Anesthesia [_] Combined General / Regional Anesthesia [_x] Regional Anesthesia [_] Monitored Anesthesia Care [_] Sedation Care - RN COMMENTS _ IDENTIFICATION [X] Patient identified [X] Procedure Verified [X] Site Verified [X] NPO Verified PHYSICAL ASSESSMENT Airway * Normocephalic/Atraumatic Thyromental Distance Adequate Neck ROM adequate Jaw Opening Adequate Dentition Intact Mallampati Classification: 2 Cardiovascular * Regular Rate and Rhythm No Murmur Pulmonary * Clear to Auscultation LABS WITHIN 72 HOURS No qualifying data available. No qualifying data available. ADDITIONAL FINDINGS _ HISTORY AND PHYSICAL UPDATE [X] Assessment of patient history, patient exam, medications, allergies and previous anesthetic history reviewed on this date. * [X] Patient seen, evaluated and approved for anesthesia / sedation. * Select one of the following: * [X] Discussed risks / benefits / alternatives of anesthesia / sedation and obtained informed consent. [_] Emergency exception: consent implied due to medical emergency and inability to obtain timely consent from the patient or an alternative decision maker ALLERGY LIST NKA PROBLEM LIST Abuse Tobacco Smoking NOS Disease Gastroesophageal Reflux (GERD ERMELINDA) Hemorrhoids External NOS MEDICATION LIST Medication List Active Medications Ordered ceFAZolin: 2 gm, 50 mL, 200 mL/hr, IVPB, PREOP. lactated ringers 1,000 mL: 100 mL/hr, IV. metroNIDAZOLE: 500 mg, 100 mL, 200 mL/hr, IVPB, PREOP. morphine: 1 mg-2 mg, IV Push, q30min, PRN: Pain. sodium biphosphate-sodium phosphate: 133 mL, Rectal, PREOP. Sodium Chloride 0.9%: 10 mL, IV Push, PRN, PRN: Maintain IV access. Sodium Chloride 0.9%: 10 mL, IV Push, 2xDay. Prescribed oxyCODONE-acetaminophen: 1 tab(s), PO, q6hr, PRN: Pain, 6 tab(s), 0 Refill(s). phentermine: 37.5 mg, 1 cap(s), PO, Daily, 30 cap(s), 1 Refill(s). Medications Inactivated in the Last 72 Hours No medications found. PROCEDURE LIST Esophagogastroduodenoscopy: 08/12/15 Tubal ligation: 07/16/11 LAB RESULTS CBC WBC: 10.3 03/29/16 RBC: 5.02 03/29/16 Hgb: 15.4 03/29/16 Hct: 45.8 High 03/29/16 Platelet: 224 03/29/16 BMP Sodium Lvl: 141 03/29/16 Potassium Lvl: 3.8 03/29/16 Chloride: 103 03/29/16 CO2: 20 Low 03/29/16 Glucose Lvl: 114 03/29/16 Creatinine: 0.55 03/29/16 Calcium Lvl: 9.3 03/29/16 BUN: 11 03/29/16 EGFR (MDRD): >60 03/29/16 EGFR (MDRD): >60 03/29/16 AGAP: 18 High 03/29/16 LFT Albumin Lvl: 4.5 03/29/16 Protein Total: 7.7 03/29/16 AST: 14 03/29/16 ALT: 11 03/29/16 Alkaline Phosphatase: 54 03/29/16 Bili Direct: <0.2 03/29/16 Bili Total: 0.6 03/29/16 INR INR: 1.07 05/01/10 HgbA1C No qualifying data available. THYROID No qualifying data available. Other _ DATE OF HISTORY AND PHYSICAL EXAM _ CURRENT / PAST MEDICAL AND SURGICAL HISTORY [x] Within Normal Limits Unless Otherwise Specified Cardiovascular [_] Functional Capacity over 4 mets without symptoms. [_] Hypertension [_] Hyperlipidemia/Dyslipidemia [_] Coronary Artery Disease [_] History of Myocardial Infarction Respiratory / Pulmonary [_x] Nicotine/Tobacco use [_] Asthma [_] Chronic Obstructive Lung Disease [_] Obstructive Sleep Apnea Renal / Urinary and Reproductive [_] Chronic or Acute Kidney Disease Endocrine [_] Diabetes [_] Hypothyroidism Neurologic [_] Cerebrovascular Disease [_] Parkinsons Disease Mental Status [_] Alcohol/Other Substance Abuse Musculoskeletal [_] Degenerative Joint Disease/Osteoarthritis Gastrointestinal / Hepatobilliary [x_] Gastroesophageal Reflux Disease Hematology [_] Anemia [_] Increased Risk of Hemorrhage Ophthalmologic ENT [_] History of Difficult Airway Infectious Disease [_] MRSA Anesthesia (personal and family) [_] Personal History of Anesthetic Problems [_] Family History of Malignant Hyperthermia [_] Family History of serious anesthetic problems Other _ Electronically Signed By: BACILIO HOBBS MD On: 06/03/2016 09:02 AM Modified by and Electronically Signed by: BACILIO HOBBS MD On: 06/03/2016 09:00 AM Source: [employer] POWERCHART Document Id: [id number] NG STAPLER Op Note - Gayle Camarena M.D., Ph.D. - 06/03/2016 12:00 AM CST [id number] SURGEON Gayle Camarena MD, PhD PREOPERATIVE DIAGNOSIS Symptomatic type 4 internal hemorrhoids. POSTPROCEDURE DIAGNOSIS Symptomatic type 4 internal hemorrhoids. PROCEDURE PERFORMED Two-column hemorrhoidectomy. INDICATION Treatment. BACKGROUND Mrs. Vasquez is a 31-year-old female who has had symptomatic prolapsing hemorrhoids since her teenage years. She states that recently she has began experiencing bleeding from the hemorrhoids that has not discontinued with use of ieim-ony-kdnpzeq medications and stool softeners. The decision was made to proceed to the operating room for hemorrhoidectomy. OPERATIVE NARRATIVE Mrs. Vasquez was taken to OR 3 where she was identified by name and MRN. Spinal anesthetic was placed and then she was positioned prone on the operating room table. The perineum and rectum were prepped with Betadine and draped in the usual fashion. A procedural pause was performed verifying the correct patient, procedure, administration of antibiotics and fire risk. Visual inspection of the anal orifice revealed the presence of hemorrhoidal fullness particularly localized to the patient's right anterior and directly anterior towards the perineal body. There was also significant component of external hemorrhoidal tags anteriorly. Digital examination demonstrated redundant hemorrhoid tissue anteriorly that prolapsed on examination. Speculum examination revealed friable hemorrhoidal tissue anteriorly and anteriorly into the patient's left. The procedure was undertaken with the anterior hemorrhoidal column. Skin incision was created taking caution to preserve the internal and external sphincter mus cles. The dissection was carried cephalad into the rectum until the entire column was removed. Bleeding was oversewn with 3-0 Vicryl. Hemostasis was assured. Similarly, the column on the left anterior aspect was also excised. There was 1 remaining area to the patient's right posterior that was infiltrated with local anesthetic. A mixture of bupivacaine and Exparel was circumferentially infiltrated around the anus concentrating on the areas of surgical resection. The patient tolerated the procedure well and the rectum was packed with a Kerlix gauze. The perineum was dressed with fluffs and mesh under wear was placed. The patient was then taken back to the ambulatory surgical center for ongoing recovery. Estimated blood loss was 30 mL. This was a type 2 wound, and all counts were correct at the end of procedure. Gayle Camarena M.D., Ph.D./aos Electronically Signed By: GAYLE CAMARENA MD, PhD On: 07/08/2016 04:31 PM Source: [facility] MHSDOLBEYNONRADSYS Document Id: [id number] NG STAPLER documented in this encounter Miscellaneous Notes Miscellaneous - Conversion, Historical Provider Ser - 06/03/2016 3:30 PM SIDING STAPLER Coding Summary-Paper Based CODING DATE: 06/09/2016 FINAL [place] [place] [facility] STATUS: * Discharged to Home or Self Care PAYOR: Medicaid APC DESCRIPTION 5313 Level 3 Lower GI Procedures ADMIT DX: REASON FOR VISIT DX: FINAL DX: PRINCIPAL: K64.3 Fourth degree hemorrhoids SECONDARY: Z72.0 Tobacco use PYMT PROC APC STAT DESCRIPTION DOCTOR NAME DATE [id number] T [facility] NTRNL LIG OTH THAN GAYLE CAMARENA 06/03/2016 RBBR BAND 2/> COL/GRP NOTE: The code number assigned matches the documented diagnosis and / or procedure in the patient's chart. However, the narrative phrase printed from the coding software may appear abbreviated, or result in slightly different terminology. Coded By: TUCKER ANTHONY CLOUD DEVELOPER Date Saved: 06/09/2016 07:21 am Source: [facility] POWERCHART Document Id: [id number] Miscellaneous - Susan Cates RDevendra - 06/03/2016 2:45 PM CST Adult Postprocedure Assessment Adult Postprocedure Assessment Entered On: 06/03/2016 15:02 SIDING STAPLER Performed On: 06/03/2016 14:45 SIDING STAPLER by SUSAN CATES RN Vital Signs Height : 169 cm(Converted to: 5 ft 7 inch(es)) SUSAN CATES RN - 06/03/2016 15:02 SIDING STAPLER Activity Activity Status ADL : Other: attempted to stand at bedside; more stable than previous attempt. Will reasess in 30 mins SUSAN CATES RN - 06/03/2016 15:02 SIDING STAPLER Source: [facility] POWERCHART Document Id: [id number] SIDING STAPLER!5 NG STAPLER Miscellaneous - Susan Cates R.N. - 06/03/2016 2:30 PM CST Adult Postprocedure Assessment Adult Postprocedure Assessment Entered On: 06/03/2016 14:31 SIDING STAPLER Performed On: 06/03/2016 14:30 SIDING STAPLER by SUSAN CATES RN Vital Signs Apical Heart Rate : 84 /min Respiratory Rate : 18 /min Systolic Blood Pressure : 104 mmHg Diastolic Blood Pressure : 72 mmHg NIBP Mean : 83 mmHg BP Location : Right upper extremity SpO2 : 98 % Oxygen Saturation Monitoring Frequency : Continuous Oxygen Therapy : Room air Height : 169 cm(Converted to: 5 ft 7 inch(es)) SUSAN CATES RN - 06/03/2016 14:29 SIDING STAPLER General Level of Consciousness : Alert Orientation : Oriented x 3 Skin Color : Normal for ethnicity Skin Description : Normal Skin Temperature : Warm Pain Symptoms : No SUSAN CATES RN - 06/03/2016 14:29 SIDING STAPLER Cardiovascular Nail Bed Color : Doland SUSAN CATES RN - 06/03/2016 14:29 SIDING STAPLER Respiratory Respiratory Patient Stated Symptoms : None Respirations : Unlabored Distress : None Respiratory Pattern : Regular SUSAN CATES RN - 06/03/2016 14:29 SIDING STAPLER GI/ Nausea Symptoms : No Nursing Interventions : Patient given oral fluids, Patient given food SUSAN CATES RN - 06/03/2016 14:29 SIDING STAPLER Incision/Wound Incision/Wound Care Grid Activity : Assessed Wound, Dressing intact Type : Other: hemorrhoidectomy-maryellen pad in place Drainage : Bloody Drainage Amount : Small Neurovascular Status : Neurovascular intact distal to injury, Pulses distal to injury palpable, Skindistal to injury warm and pink SUSAN CATES RN - 06/03/2016 14:29 SIDING STAPLER Peripheral IV Peripheral IV Assess/Intervention Grid Peripheral IV #1 IV Activity : Assessment Date of Insertion : 06/03/2016 SIDING STAPLER IV Site : Antecubital Laterality : Left Catheter Size : 20 Catheter Type : Protective SUSAN CATES RN - 06/03/2016 14:29 SIDING STAPLER Lower Extremity Nail Bed Color Feet Grid Left Foot : Doland Right Foot : Doland SUSAN CATES RN - 06/03/2016 14:29 SIDING STAPLER Capillary Refill Feet Grid Left Foot : < 2 seconds Right Foot : < 2 seconds SUSAN CATES RN - 06/03/2016 14:29 SIDING STAPLER NV Lower Extremity Temperature Grid Left : Warm Right : Warm SUSAN CATES RN - 06/03/2016 14:29 SIDING STAPLER Lower Extremity Peripheral Pulses Grid Dorsalis Pedis Pulse, Left : 2+ Normal Dorsalis Pedis Pulse, Right : 2+ Normal SUSAN CATES RN - 06/03/2016 14:29 SIDING STAPLER Activity Patient Position : Elevate head of bed 45 degrees SUSAN CATES RN - 06/03/2016 14:29 SIDING STAPLER Siddiqui Siddiqui Agitation Sedation Scale (RASS) : Alert and calm RASS Score : 0 SUSAN CATES RN - 06/03/2016 14:29 SIDING STAPLER Source: [facility] Document Id: [id number] SIDING STAPLER!64 NG STAPLER Miscellaneous - Susan Cates R.N. - 06/03/2016 2:02 PM CST Adult Postprocedure Assessment Document Has Been Updated Adult Postprocedure Assessment Entered On: 06/03/2016 14:03 SIDING STAPLER Performed On: 06/03/2016 14:02 SIDING STAPLER by SUSAN CATES RN Vital Signs Apical Heart Rate : 72 /min Respiratory Rate : 18 /min Systolic Blood Pressure : 104 mmHg Diastolic Blood Pressure : 56 mmHg NIBP Mean : 72 mmHg SpO2 : 95 % Oxygen Therapy : Room air Height : 169 cm(Converted to: 5 ft 7 inch(es)) SUSAN CATES RN - 06/03/2016 14:02 SIDING STAPLER General Level of Consciousness : Alert Orientation : Oriented x 3 Skin Color : Normal for ethnicity Skin Description : Normal Skin Temperature : Warm Pain Symptoms : No SUSAN CATES RN - 06/03/2016 14:02 SIDING STAPLER Cardiovascular Nail Bed Color : Doland SUSAN CATES RN - 06/03/2016 14:02 SIDING STAPLER Respiratory Respiratory Patient Stated Symptoms : None Respirations : Unlabored Distress : None Respiratory Pattern : Regular SUSAN CATES RN - 06/03/2016 14:02 SIDING STAPLER GI/ Nausea Symptoms : No Nursing Interventions : Patient given oral fluids, Patient given food SUSAN CATES RN - 06/03/2016 14:02 SIDING STAPLER Incision/Wound Incision/Wound Care Grid Activity : Assessed Wound Type : Other: hemorrhoidectomy-maryellen pad in place SUSAN CATES RN - 06/03/2016 14:02 SIDING STAPLER Peripheral IV Peripheral IV Assess/Intervention Grid Peripheral IV #1 IV Activity : Assessment Date of Insertion : 06/03/2016 SIDING STAPLER IV Site : Antecubital Laterality : Left Catheter Size : 20 Catheter Type : Protective SUSAN CATES RN - 06/03/2016 14:02 SIDING STAPLER Activity Activity Status ADL : Other: attempt standing at bedside, unsucessful. will reattempt in 30 min SUSAN CATES RN - 06/03/2016 14:09 SIDING STAPLER Source: [facility] [employer] Document Id: [id number] SIDING STAPLER!3 NG STAPLER Miscellaneous - Susan Cates R.N. - 06/03/2016 1:27 PM CST Adult Postprocedure Assessment Adult Postprocedure Assessment Entered On: 06/03/2016 13:32 SIDING STAPLER Performed On: 06/03/2016 13:27 SIDING STAPLER by SUSAN CATES RN Vital Signs Apical Heart Rate : 70 /min Respiratory Rate : 18 /min Systolic Blood Pressure : 108 mmHg Diastolic Blood Pressure : 69 mmHg NIBP Mean : 82 mmHg BP Location : Left upper extremity SpO2 : 99 % Oxygen Saturation Monitoring Frequency : Intermittent Oxygen Therapy : Room air Height : 169 cm(Converted to: 5 ft 7 inch(es)) SUSAN CATES RN - 06/03/2016 13:27 SIDING STAPLER General Level of Consciousness : Alert Orientation : Oriented x 3 Skin Color : Normal for ethnicity Skin Description : Normal Skin Temperature : Warm Pain Symptoms : No SUSAN CATES RN - 06/03/2016 13:27 SIDING STAPLER Cardiovascular Nail Bed Color : Doland SUSAN CATES RN - 06/03/2016 13:27 SIDING STAPLER Respiratory Respiratory Patient Stated Symptoms : None Respirations : Unlabored Distress : None Respiratory Pattern : Regular SUSAN CATES RN - 06/03/2016 13:27 SIDING STAPLER GI/ Nausea Symptoms : No Nursing Interventions : Patient given oral fluids, Patient given food SUSAN CATES RN - 06/03/2016 13:27 SIDING STAPLER Incision/Wound Incision/Wound Care Grid Activity : Assessed Wound Type : Other: hemorrhoidectomy-maryellen pad in place Drainage : Bloody Drainage Amount : Small Neurovascular Status : Neurovascular intact distal to injury, Pulses distal to injury palpable, Skindistal to injury warm and pink SUSAN CATES RN - 06/03/2016 13:27 SIDING STAPLER Peripheral IV Peripheral IV Assess/Intervention Grid Peripheral IV #1 IV Activity : Assessment Date of Insertion : 06/03/2016 SIDING STAPLER IV Site : Antecubital Laterality : Left Catheter Size : 20 Catheter Type : Protective SUSAN CATES RN - 06/03/2016 13:27 SIDING STAPLER Activity Patient Position : Elevate head of bed 45 degrees Activity Status ADL : Other: bed krishnamurthy SUSAN CATES RN - 06/03/2016 13:27 SIDING STAPLER Source: [facility] Document Id: [id number] SIDING STAPLER!49 NG STAPLER Miscellaneous - Miguelina West R.N. - 06/03/2016 12:59 PM CST Adult Postprocedure Assessment Adult Postprocedure Assessment Entered On: 06/03/2016 13:06 SIDING STAPLER Performed On: 06/03/2016 12:59 SIDING STAPLER by MIGUELINA WEST RN Vital Signs Temperature Core : 36.6 DegC(Converted to: 97.9 DegF) Apical Heart Rate : 65 /min Respiratory Rate : 16 /min Systolic Blood Pressure : 99 mmHg Diastolic Blood Pressure : 57 mmHg NIBP Mean : 71 mmHg BP Location : Left upper extremity SpO2 : 99 % Oxygen Saturation Monitoring Frequency : Continuous Oxygen Therapy : Room air Height : 169 cm(Converted to: 5 ft 7 inch(es)) MIGUELINA WEST I RN - 06/03/2016 12:59 SIDING STAPLER General Level of Consciousness : Alert Orientation : Oriented x 3 Skin Color : Normal for ethnicity Skin Description : Normal Skin Temperature : Warm Pain Symptoms : No MIGUELINA WEST RN - 06/03/2016 12:59 SIDING STAPLER Respiratory Respiratory Patient Stated Symptoms : None Respirations : Unlabored Distress : None Respiratory Pattern : Regular MIGUELINA WEST RN - 06/03/2016 12:59 SIDING STAPLER GI/ Nausea Symptoms : No MIGUELINA WEST RN - 06/03/2016 12:59 SIDING STAPLER Integumentary Integumentary Patient Stated Symptoms : None Skin Turgor : Elastic Skin Integrity : Not intact MIGUELINA WEST RN - 06/03/2016 12:59 SIDING STAPLER Incision/Wound Incision/Wound Care Grid Activity : Assessed Dressing Type : Other: hemorrhoidectomy-maryellen pad in place Drainage : Serosanguineous Drainage Amount : Small MIGUELINA WEST RN - 06/03/2016 12:59 SIDING STAPLER Peripheral IV Peripheral IV Assess/Intervention Grid Peripheral IV #1 IV Activity : Assessment Date of Insertion : 06/03/2016 SIDING STAPLER IV Site : Antecubital Laterality : Left Catheter Size : 20 Catheter Type : Protective Site Condition : No complications Drainage Description : None Site/Line Care : Secured with tape Dressing/ Activity : Dry, Intact, Transparent Flow/ Patency : No complications MIGUELINA WEST RN - 06/03/2016 12:59 SIDING STAPLER Neurologic Neurological Strengths Grid Left Lower Extremity Right Lower Extremity Strength : Weak Weak Tone : Normal Normal Sensation : Decreased Absent MIGUELINA WEST RN - 06/03/2016 12:59 SIDING STAPLER MIGUELINA WEST RN - 06/03/2016 12:59 SIDING STAPLER Lower Extremity Nail Bed Color Feet Grid Left Foot : Doland Right Foot : Doland MIGUELINA WEST RN - 06/03/2016 12:59 SIDING STAPLER Capillary Refill Feet Grid Left Foot : < 2 seconds Right Foot : < 2 seconds MIGUELINA WEST RN - 06/03/2016 12:59 SIDING STAPLER NV Lower Extremity Temperature Grid Left : Warm Right : Warm MIGUELINA WEST RN - 06/03/2016 12:59 SIDING STAPLER Lower Extremity Peripheral Pulses Grid Dorsalis Pedis Pulse, Left : 2+ Normal Dorsalis Pedis Pulse, Right : 2+ Normal MIGUELINA WEST RN - 06/03/2016 12:59 SIDING STAPLER Activity Patient Position : Elevate head of bed 45 degrees MIGUELINA WEST I RN - 06/03/2016 12:59 SIDING STAPLER Source: [facility] Document Id: [id number] SIDING STAPLER!77 NG STAPLER Miscellaneous - Chevy Dixon R.N. - 06/03/2016 12:40 PM CST Adult Postprocedure Assessment Adult Postprocedure Assessment Entered On: 06/03/2016 12:43 SIDING STAPLER Performed On: 06/03/2016 12:40 SIDING STAPLER by CHEVY DIXON RN Vital Signs Temperature Core : 36.6 DegC(Converted to: 97.9 DegF) Apical Heart Rate : 72 /min Respiratory Rate : 16 /min Systolic Blood Pressure : 100 mmHg Diastolic Blood Pressure : 60 mmHg NIBP Mean : 73 mmHg BP Location : Left upper extremity SpO2 : 96 % Oxygen Saturation Monitoring Frequency : Continuous Oxygen Therapy : Room air Height : 169 cm(Converted to: 5 ft 7 inch(es)) CHEVY DIXON RN - 06/03/2016 12:40 SIDING STAPLER General Level of Consciousness : Alert Orientation : Oriented x 3 Skin Color : Normal for ethnicity Skin Description : Dry Skin Temperature : Warm Pain Symptoms : No CHEVY DIXON RN - 06/03/2016 12:40 SIDING STAPLER Cardiovascular Nail Bed Color : Doland Edema Assessment : No Capillary Refill : Less than 2 seconds CHEVY DIXON RN - 06/03/2016 12:40 SIDING STAPLER Respiratory Respiratory Patient Stated Symptoms : None Respirations : Unlabored Distress : None Respiratory Pattern : Regular CHEVY DIXON RN - 06/03/2016 12:40 SIDING STAPLER GI/ Nausea Symptoms : No Nursing Interventions : Patient given oral fluids CHEVY DIXON RN - 06/03/2016 12:40 SIDING STAPLER Integumentary Integumentary Patient Stated Symptoms : None Skin Turgor : Elastic Skin Integrity : Intact Mucous Membrane Color : Doland Mucous Membrane Description : Moist Skin Color : Normal for ethnicity Skin Description : Dry Skin Temperature : Warm CHEVY DIXON RN - 06/03/2016 12:40 SIDING STAPLER Incision/Wound Incision/Wound Care Grid Activity : Assessed Dressing Type : Other: hemorrhoidectomy-maryellen pad in place Drainage : None CHEVY DIXON RN - 06/03/2016 12:40 SIDING STAPLER Peripheral IV Peripheral IV Assess/Intervention Grid Peripheral IV #1 IV Activity : Assessment Date of Insertion : 06/03/2016 SIDING STAPLER IV Site : Antecubital Laterality : Left Catheter Size : 20 Catheter Type : Protective CHEVY DIXON RN - 06/03/2016 12:40 SIDING STAPLER Neurologic Neurological Strengths Grid Left Lower Extremity Right Lower Extremity Strength : Weak Weak Sensation : Decreased Decreased CHEVY DIXON RN - 06/03/2016 12:40 SIDING STAPLER CHEVY DIXON RN - 06/03/2016 12:40 SIDING STAPLER Source: [facility] Document Id: [id number] SIDING STAPLER!64 NG STAPLER documented in this encounter Plan of Treatment Not on filedocumented as of this encounter Visit Diagnoses Not on filedocumented in this encounter
--- OUTSIDE RECORDS SUMMARY | 2022-02-03 23:56 | XMS_ITS | Encounter Summary ---
:1985 Author Organization [facility] Address [address] [place] [id number] Care Team Providers Name Role Phone Unavailable Primary Care Provider Unavailable Encounter Details Date Type Department Care Team Description 06/21/2016 - Hospital Encounter HX [facility] Gayle linares 06/22/2016 MED/SRG/PD Holland M.D., Ph.D. [address] [place] [address] Social History Tobacco Use Types Packs/Day Years Used Date Smoking Tobacco: Every Day Sex Assigned at Date Recorded Not on file documented as of this encounter Last Filed Vital Signs Vital Sign Reading Time Taken Comments Blood Pressure 111/58 06/22/2016 10:01 PM BAGGAGE AGENT Pulse 81 06/22/2016 10:01 PM BAGGAGE AGENT Temperature - - Respiratory Rate 16 06/22/2016 10:01 PM BAGGAGE AGENT Oxygen Saturation - - Inhaled Oxygen Concentration - - Weight - - Height 170 cm (5' 6.93) 06/22/2016 10:01 PM BAGGAGE AGENT Body Mass Index - - documented in this encounter Discharge Summaries Warren Santos, R.N. - 06/22/2016 11:44 PM CST Discharge Summary Discharge Summary Entered On: 06/22/2016 23:47 BAGGAGE AGENT Performed On: 06/22/2016 23:44 BAGGAGE AGENT by WARREN SANTOS RN DC Information Discharged to : Home independently Current Home Treatments : None Home Equipment : None Professional Skilled Services : None Special Services and Community Resources : None Mode of Discharge : Wheelchair Discharge Transportation : Private vehicle Accompanied By : Nurse Date/Time of Discharge : 06/22/2016 23:05 BAGGAGE AGENT WARREN SANTOS RN - 06/22/2016 23:44 BAGGAGE AGENT Education General Patient Education Powergrid Topics : Medication dosage, route, scheduling, Plan of care, Safety, fall Individuals Taught : Patient, Spouse Barriers to Learning : None evident Teaching Method : Explanation Teaching Evaluation : Verbalizes understanding WARREN SANTOS RN - 06/22/2016 23:44 BAGGAGE AGENT Valuables/Belongings Valuables/Belongings Grid Valuables at Bedside Clothes, Patient Valuables : Coat, Pants, Shirt, Shoes, Slippers, Undergarments Electronic Devices : Cell phone, Other: cell deckhand clam dredge Jewelry : Bracelet, Rings, Wedding band Miscellaneous : Games, Toys WARREN SANTOS RN - 06/22/2016 23:44 BAGGAGE AGENT Belongings Sent Home With : patient and patient spouse WARREN SANTOS RN - 06/22/2016 23:44 BAGGAGE AGENT Source: [facility] [employer]ART Document Id: [id number] BAGGAGE AGENT!27 AGE AGENT Gayle Camarena M.D., Ph.D. - 06/22/2016 12:00 AM CST [id number] ADMISSION DATE: 06/21/2016 DISCHARGE DATE: 06/22/2016 ADMITTING DIAGNOSIS Perioperative pain related to 2 column hemorrhoidectomy on June 03, 2016. DISMISSAL DIAGNOSIS 1. Perioperative pain related to 2 column hemorrhoidectomy on June 03, 2016. 2. Spastic internal anal sphincter, status post examination under anesthesia and Botox injection on June 21, 2016. 3. Nicotine dependence. BRIEF HOSPITAL SUMMARY Mrs. Blanchard returned to the Emergency Department on June 21, 2016, with persistent perianal pain. The decision was made to proceed to the operating room for examination under anesthesia. Due to the presence of hyperactive, spastic internal anal sphincter a Botox injection was pursued. The patient also received a spinal anesthetic which necessitated an overnight hospitalization. A Branch catheterwas placed and subsequently removed. Pain management was transitioned over to an oral regimen and she was tolerating this very well. The patient desired hospital dismissal. At the time of dismissal shewas tolerating an oral diet and demonstrating appropriate bowel function. Followup has already been a rranged with her outpatient surgeon. MEDICATIONS <__IM_1: unclear, no medications dictated __> DISMISSAL CONDITION Stable. DISMISSAL LOCATION Home. DISMISSAL FOLLOWUP Patient has follow up to be seen by Dr. Gayle Camarena in the outpatient setting tomorrow, June 23, 2016. Gayle Camarena M.D., Ph.D./aos Electronically Signed By: GAYLE CAMARENA MD, PhD On: 07/06/2016 04:44 PM Source: [facility] MHSDOLBEYNONRADSYS Document Id: [id number] AGE AGENT Dayan Salas R.N. - 06/21/2016 10:54 AM CST [place] [address] Name: SILVIA BLANCHARD Date of : 1985 12:00 AM Visit Date: 06/21/2016 10:27 AM [facility] Number: [id number] Address: [address] [place] [phone] Primary Care Provider: SOFIE VÁZQUEZ MD IMPORTANT: [facility] in [place] would like to thank you for allowing us to assist youwith your healthcare needs. The following includes patient education materials and information regarding your injury/illness. Diagnosis: Follow-Up Instructions: Your Upcoming Appointments: Date Time Location Provider 07/10/2016 13:00 AMADO Camarena MD, Gayle Lino Patient Education Materials: Consider Using Patient Online Services Patient Online [...] dont have one. Go to [email or web address] and click on Create Your Account. Then, follow the directions to complete the online form. Youll be asked for your [facility] number which you can find at the top of this document. ED Tests and Procedures: Order Status Discharge Prescriptions & Home Medications: Medication/Strength Dose Route Frequency Indications/Special Instructions/Comments/Notes diazePAM (diazePAM 5 mg oral tablet) 10 mg Oral every 6 hours as needed for Spasm oxyCODONE (oxyCODONE 5 mg oral tablet) 15 mg Oral every 3 hours as needed for Pain May take 4 tabs for severe pain after BM. 1 tab pain 2-3, 2 tabs pain 4-6, 3 tabs pain 7-10. lidocaine topical (Lidocaine Viscous 2% mucous membrane solution) 1 gordy Topical four times a day as needed for Pain(Severe) docusate (Colace 100 mg oral capsule) 100 mg Oral two times a day acetaminophen (acetaminophen 500 mg oral tablet) 1,000 [...] arrange a ride home with a responsible alliance party. LO Ward KRISTINA LYNN , or responsible alliance party have received this information and my questions have been answered. I have discussed any challenges I see with this plan with the nurse or physician. Patient Signature or Responsible Constitution Party/Relationship Date Time Provider Signature Date Time IMPORTANT: [...] arrange a ride home with a responsible alliance party. Sylvia, SILVIA BLANCHARD , or responsible alliance party have received this information and my questions have been answered. I have discussed any challenges I see with this plan with the nurse or physician. Patient Signature or Responsible Constitution Party/Relationship Date Time Provider Signature Date Time Source: [facility] [employer] Document Id: [id number] AGE AGENT Dayan Salas R.N. - 06/21/2016 10:54 AM CST ED Depart Summary [facility] Emergency Department / Urgent Care Clinical Discharge Summary PERSON INFORMATION Name SILVIA BLANCHARD Age 31 Years 1985 12:00 AM Sex Female Language Botswanan PCP SOFIE VÁZQUEZ MD Marital Status Visit Id Visit Reason SURGERY Specialty Enc Type Day Surgery Med Service Same Day Surgery Referred by Track Group [facility] ED/UC Discharge 06/21/2016 10:54 AM Tracking Id [id number] Checkout 06/21/2016 10:54 AM Checkin 06/21/2016 10:27 AM Acuity Dispo Type Continued Care in Another Location Arrival 06/21/2016 10:27 AM Reg Status Complete LOS 000 00:27 Address: [address] [place] [phone] Comment: PROVIDER INFORMATION Provider Role Provider Contact Time DIAGNOSIS Comment: PATIENT EDUCATION INFORMATION Instructions: Follow up: Source: [employer] Document Id: [id number] AGE AGENT documented in this encounter Medications at Time of Discharge Medication Sig Dispensed Refills Start Date End Date docusate sodium Take 1 capsule by mouth 0 017 (COLACE) 100 mg capsule 2 (two) times a day. UNABLE TO FIND Apply 1 application 0 06/06/2016 topically 4 (four) times a day as needed. documented as of this encounter Progress Notes Breann Nance - 06/22/2016 7:45 AM CST PT Screen EMR system automatically generated screening. Based on review of history, physical therapy is not indicated at this time. Patient will be followed in rounds. Falls precautions should be utilized for this patient. Electronically Signed By: BREANN NANCE PT On: 06/22/2016 07:45 AM Source: [employer] Document Id: [id number] AGE AGENT Gayle Camarena M.D., Ph.D. - 06/22/2016 12:00 AM CST [id number] SUBJECTIVE Mrs. Blanchard slept for a very short period of time last night. Her pain was initially well controlled with her spinal anesthesia, but come this morning it has started to wear off a little bit. She started taking more oral pain medications around 2 or 3:00 in the morning. She has not had a bowel movement yet but does endorse a small amount of incontinent flatus. Overall afebrile, no acute events overnight. PHYSICAL EXAMINATION GENERAL: Patient appears well and in no acute distress. Awake, alert, and oriented. Appropriately interactive. RECTUM: Perianal examination reveals no significant bleeding. Some of her perianal edema has improved. Suture lines remain intact and without evidence of infection. IMPRESSION/REPORT/PLAN 1. Bleeding internal hemorrhoids, status post 2 column hemorrhoidectomy on June 03, 2016. Returned to the operating room for examination under anesthesia and internal sphincter Botox injection on June 21, 2016. 2. Nicotine dependence. 3. Gastroesophageal reflux disease. Mrs. Blanchard is a 31-year-old female who has been struggling with perioperative pain related to 2 column hemorrhoidectomy performed on June 03, 2016. Yesterday we return to the operating room for examination under anesthesia. No considerable abnormalities were identified to explain her pain. She was noted to have a hypertonic internal anal sphincter, and therefore, the decision was made to proceed with a Botox injection. She also received a spinal anesthetic and remained in the hospital overnight for observation related to this. This morning the spinal anesthetic is wearing off and she is starting to notice escalating pain. We will plan to allow her to remain in the hospital until 2:30 at the [facility] and then we will reassess. The timing of this is more related to the spinal anesthetic. However, I did also suspect that Mrs. Blanchard will have some significant pain with her 1st bowel movement and I would like to assure that we can control this with oral medication prior to dismissal. Anticipated hospital dismissal within the next 24 hours. Gayle Camarena M.D., Ph.D./aos Electronically Signed By: GAYLE CAMARENA MD, PhD On: 07/06/2016 04:44 PM Source: [facility] MHSDOLBEYNONRADSYS Document Id: [id number] AGE AGENT Janett Lynn M.D. - 06/21/2016 2:50 PM CST Hospital Progress Note (SOAP) SUBJECTIVE Consulted by Dr. Camarena for pain control postoperatively. Patient continues to have perianal/sacral pain after a rectal exam under anesthesia. In PACU was given 1.1mg IV Dilaudid, 30mg IV toradol with 7/10 pain remianing. Patient awake and alert and able to take orals. Given 10mg PO oxycodone tablet and 4mg IV morphine as patient reports morphine works better for her than dilaudid. Also complaining of significant anxiety and patient requesting valium as this has working in the past. 2mg IV given with anxiety improvement and heartrate improvement form >110 to 80s. After discussion with Dr. Camarena, decision made to admit for pain control and request made for spinal opioid to maximize pain control as patient still having 6-7/10 pain in spite of the above opioid and benzodiazepine load. No history of bleeding issues. Risks/side effects and alternatives were discussed including ongoingIV and PO opioids. She requests intrathecal opioid. MEDICATIONS: Preservative free Bupivicaine 0.75% (0.25mL) Preservative free Morphine (200mcg) Lidocaine 1% solution 3-5 mL was used for skin and deeper tissue infiltration. SEDATION: Patient had received IV opioids and benzos in PACU. See above. Awake, alert, responsive, cooperative. TECHNIQUE: The point of needle insertion was ascertained using anatomic markers. Using a 25-gauge needle, a skin wheal was made with 1% lidocaine. Deeper tissues were then infiltrated with lidocaine. A 3.5-inch, spinal needle was inserted and advanced with intermittent checks until CSF was achieved. The needle was aspirated and revealed CSF. No blood. No paresthesias. The mixture of Bupivacaine and Morphine was injected and the needle was removed. the pateint was allowed to site for 60 seconds thenlay flat. COMPLICATIONS: None. No paresthesia during needle insertion or injection. No intravascular puncture. POST BLOCK RECOVERY: The patient was allowed to rest and observed for 30 minutes. Uneventful recovery. Intrathecal opioid order set activated. POST BLOCK PAIN SCORE: 2-3 out of 10 in the sacrum/low back location. My buttocks/vagina are completely numb. Patient discharged from PACU with continuous pulse oximetry and notification of Dr. Camarena for post op orders. REVIEW OF SYSTEMS No recent fevers/infections. VITAL SIGNS HR: 84 (Monitored) RR: 13 BP: 119 / 66 SpO2: 96% PHYSICAL EXAMINATION Low back without lesions No leg weakness/paresthesias Perianal and sacral pain to palpation diffusely. LAB RESULTS see EMR DIAGNOSTIC RESULTS see EMR ASSESSMENT/PLAN Hemorrhoids External NOS Orders: bupivacaine, 0.25 mL, Intrathecal, Once, Injection, 06/21/16 15:00:00 BAGGAGE AGENT, postoperative pain lactated ringers 1,000 mL, 100 mL/hr, IV, 06/21/16 11:22:00 BAGGAGE AGENT morphine, 2 mg = 1 mL, IV Push, q2min, PRN Pain, Injection, 06/21/16 13:44:00 BAGGAGE AGENT, 2 HR morphine, 200 mcg = 0.4 mL, Intrathecal, Once, Solution, 06/21/16 15:00:00 BAGGAGE AGENT, post operative paincontrol Continuous Pulse Oximetry Elevate Head of Bed Heat Therapy Application [facility] Nursing Task Notify Provider Oxygen Therapy (Provider) Vital Signs Spinal anesthetic provided with preservative free morphine and bupivacaine to break pain cycle. Patient reports she is numb, but still having nonfocal pain of 2-3/10 described as pressure. PROCEDURE NOTE: NAME OF PROCEDURE:Spinal anesthetic for Post operative pain FACILITY: [facility] SURGEON: Janett Lynn M.D. DETAIL MAKER AND FITTER: Yun Huddleston CRNA DIAGNOSES: 1. Perianal and sacral pain after EUA (see above), requested by surgeon. INJECTION LEVEL: L3/4 Interlaminar Epidural Space CONSENT: The procedure was described to the patient. The patient denies any recent illness, fever, cough, cold, recent antibiotic use or use of anticoagulation medications. The risks, benefits, and alternatives of this procedure were discussed in detail with the patient. The patient understands that the therapy may not work, and serious complications (including but not limited to bleeding, infection, numbness, weakness, permanent nerve damage, damage to surrounding organs/structures, exacerbation of pain, allergic reaction, lack of efficacy) could ensue following this procedure. The patient consents to the procedure. PREPROCEDURE TIME-OUT: A preprocedure time-out was performed. The patient was asked to state their full name, date of , the name of the procedure, and site and side of the procedure. The patient confirmed that the procedure, risks, and benefits were described in detail and to the patient's satisfaction. Review of the consent form, patient allergies, and anticoagulation status were performed. POSITION: The patient was seated and supported by photographer's assistant. SKIN PREPARATION: The skin over the injection site was prepped with ChloraPrep and draped with sterile towels. Electronically Signed By: JANETT LYNN MD On: 06/21/2016 08:34 PM Source: [facility] [employer] Document Id: [id number] AGE AGENT documented in this encounter H&P Notes Gayle Camarena M.D., Ph.D. - 06/21/2016 4:49 PM CST GIGS-ADM HISTORY OF PRESENT ILLNESS Mrs. Blanchard is a 31-year-old female who underwent hemorrhoidectomy on June 03, 2016. She continued to have significant perianal pain and the decision was made to return to the operating room for examination under anesthesia. A spinal anesthetic was placed and the patient was admitted for overnight observation. PHYSICAL EXAMINATION GENERAL: Patient appears uncomfortable but in no acute distress. Awake, alert, and oriented. Appropriately interactive. RECTUM: Perianal examination is notable for marked edema and discomfort with any manipulation of thebuttocks. LUNGS: Breathing comfortably on room air. No wheezes, rales or rhonchi. HEART: S1, S2 normal. No murmurs, gallops, or rubs. IMPRESSION/REPORT/PLAN 1. Bleeding internal hemorrhoids, status post 2 column hemorrhoidectomy on June 03, 2016. 2. Nicotine dependence. 3. Gastroesophageal reflux disease. Mrs. Blanchard is a 31-year-old female who continues to have pain after undergoing a 2 column hemorrhoidectomy on June 03. We will plan to proceed to the operating room for examination under anesthesia and then postoperatively she will be watched in the hospital for an observation to assure that her pain is well controlled and that she is able to void and have appropriate lower extremity functionafter spinal anesthesia. I anticipate that the patient will be in the hospital for approximately 24 to 48 hours. Gayle Camarena M.D., Ph.D./aos Electronically Signed By: GYALE CAMARENA MD, PhD On: 07/06/2016 04:45 PM Source: [facility] MHSDOLBEYNONRADSYS Document Id: [id number] AGE AGENT documented in this encounter Procedure Notes Viridiana Mckenna R.N. - 06/22/2016 8:00 PM CST Pulse Oximetry Pulse Oximetry Entered On: 06/22/2016 23:34 BAGGAGE AGENT Performed On: 06/22/2016 20:00 BAGGAGE AGENT by VIRIDIANA MCKENNA RN Pulse Oximetry SpO2 : 96 % Oxygen Saturation Monitoring Frequency : Continuous VIRIDIANA MCKENNA RN - 06/22/2016 23:34 BAGGAGE AGENT Source: [facility] [employer] Document Id: [id number] BAGGAGE AGENT!4 AGE AGENT Viridiana Mckenna R.N. - 06/22/2016 4:00 PM CST Pulse Oximetry Pulse Oximetry Entered On: 06/22/2016 20:16 BAGGAGE AGENT Performed On: 06/22/2016 16:00 BAGGAGE AGENT by VIRIDIANA MCKENNA RN Pulse Oximetry SpO2 : 96 % Oxygen Saturation Monitoring Frequency : Continuous VIRIDIANA MCKENNA RN - 06/22/2016 20:16 BAGGAGE AGENT Source: [facility] [employer] Document Id: [id number] BAGGAGE AGENT!4 AGE AGENT Viridiana Mckenna R.N. - 06/22/2016 12:00 PM CST Pulse Oximetry Pulse Oximetry Entered On: 06/22/2016 19:55 BAGGAGE AGENT Performed On: 06/22/2016 12:00 BAGGAGE AGENT by VIRIDIANA MCKENNA RN Pulse Oximetry SpO2 : 97 % Oxygen Saturation Monitoring Frequency : Continuous VIRIDIANA MCKENNA RN - 06/22/2016 19:55 BAGGAGE AGENT Source: [facility] [employer] Document Id: [id number] BAGGAGE AGENT!4 AGE AGENT Joana Kerr R.N. - 06/22/2016 4:00 AM CST Pulse Oximetry Pulse Oximetry Entered On: 06/22/2016 4:22 BAGGAGE AGENT Performed On: 06/22/2016 4:00 BAGGAGE AGENT by JOANA KERR RN Pulse Oximetry SpO2 : 96 % JOANA KERR RN - 06/22/2016 4:22 BAGGAGE AGENT Source: [facility] [employer] Document Id: [id number] BAGGAGE AGENT!3 AGE AGENT Joana Kerr RDevendra - 06/22/2016 12:00 AM CST Pulse Oximetry Pulse Oximetry Entered On: 06/22/2016 1:49 BAGGAGE AGENT Performed On: 06/22/2016 0:00 BAGGAGE AGENT by JOANA KERR RN Pulse Oximetry SpO2 : 98 % JOANA KERR RN - 06/22/2016 1:49 BAGGAGE AGENT Source: [facility] [employer] Document Id: [id number] BAGGAGE AGENT!3 AGE AGENT Gris Smith - 06/21/2016 8:35 PM CST Urinary Catheter Insertion/Discontinuation Urinary Catheter Insertion/Discontinuation Entered On: 06/22/2016 2:48 BAGGAGE AGENT Performed On: 06/21/2016 20:35 BAGGAGE AGENT by GRIS SMITH Urinary Catheter Urinary Catheter Activity Type : Insert Urinary Catheter Insertion Site : Urethral Urinary Catheter Size : 16 Telugu Urinary Catheter Type : Indwelling/Continuous Date/Time Catheter Insertion : 06/21/2016 20:35 BAGGAGE AGENT Urinary Catheter Balloon Inflation : 10 mL sterile water Urinary Catheter Secured : Tape Urinary Catheter Drainage System : Dependent drainage bag Urinary Catheter Procedure Response : Expected Urinary Catheter Procedure Tolerance : Good Urinary Catheter Comment : Bladder scan showed >890. Initial output was 1,025. GRIS SMITH - 06/22/2016 2:46 BAGGAGE AGENT Source: [employer] Document Id: [id number] BAGGAGE AGENT!13 AGE AGENT Gris Smith - 06/21/2016 8:25 PM CST Bladder Scan Bladder Scan Entered On: 06/22/2016 0:19 BAGGAGE AGENT Performed On: 06/21/2016 20:25 BAGGAGE AGENT by GRIS SMITH Bladder Scan Void Prior to Bladder Scan : No Bladder Distention : Present Patient States Need to Void : Yes Position During Bladder Scan : Supine Bladder Scan Volume : 890 mL GRIS SMITH - 06/22/2016 0:18 BAGGAGE AGENT Source: [employer] Document Id: [id number] BAGGAGE AGENT!7 AGE AGENT Joana Kerr, R.N. - 06/21/2016 8:00 PM CST Pulse Oximetry Pulse Oximetry Entered On: 06/21/2016 21:43 BAGGAGE AGENT Performed On: 06/21/2016 20:00 BAGGAGE AGENT by JOANA KERR RN Pulse Oximetry SpO2 : 98 % JOANA KERR RN - 06/21/2016 21:43 BAGGAGE AGENT Source: [employer] Document Id: [id number] BAGGAGE AGENT!3 AGE AGENT Toribio Cooley R.N. - 06/21/2016 5:10 PM CST Urinary Catheter Insertion/Discontinuation Urinary Catheter Insertion/Discontinuation Entered On: 06/21/2016 17:19 BAGGAGE AGENT Performed On: 06/21/2016 17:10 BAGGAGE AGENT by TORIBIO COOLEY RN Urinary Catheter Urinary Catheter Type : Straight/Intermittent Urinary Catheter Procedure Response : Expected Urinary Catheter Procedure Tolerance : Good Urinary Catheter Comment : see PN TORIBIO COOLEY RN - 06/21/2016 17:18 BAGGAGE AGENT Source: [employer] Document Id: [id number] BAGGAGE AGENT!6 AGE AGENT Dash Romo R.N. - 06/21/2016 11:56 AM CST Preprocedure Checklist Preprocedure Checklist Entered On: 06/21/2016 11:37 BAGGAGE AGENT Performed On: 06/21/2016 11:56 BAGGAGE AGENT by DASH ROMO RN Checklist Last Fluid Intake : 06/21/2016 9:45 BAGGAGE AGENT Last Food Intake : 06/20/2016 23:00 BAGGAGE AGENT DASH ORMO RN - 06/21/2016 11:32 BAGGAGE AGENT Surgery Prep Grid Contacts/Glasses Removed : NA Dentures Removed : NA Hairpins/Hairpiecies Removed : NA Hearing Aid Removed : NA Home Prep Complete : NA Jewelry/Piercing Removed : NA Makeup/Nail Romanian Removed : NA Oral Hygiene : NA Preop Scrub AM of Surgery : NA Preop Scrub Night Prior to Surgery : NA Prosthesis Removed : NA Tampon Removed : NA Verified - No hair products used : NA Voided technology education instructor to procedure : Yes Wearing Patient Gown : Yes DASH ROMO RN - 06/21/2016 11:32 BAGGAGE AGENT Patient Rights Grid Blood Consent Signed : NA Surgical/Procedure Consent Signed : Yes DASH ROMO RN - 06/21/2016 11:32 BAGGAGE AGENT Family Location : OPS Waiting Room DASH ROMO RN - 06/21/2016 11:32 BAGGAGE AGENT Checklist II Patient Safety Grid Allergy Band on and Verified : NA Anesthesia Consult : Yes Band on for Limb Alert : NA Blood Band on and Verified : NA Current ECG in Medical Record : NA Current H&P in Medical Record : Yes Implants Verified : NA Medication Reconciliation on Chart : Yes Pacemaker/AICD Verified : NA ID Band on and Verified : Yes Preop Medications Sent With Patient : Yes Relevant Images in Medical Record : NA Review of Labs : NA Procedure/Site Verified by Patient/Family : Yes Procedure/Site Verified by RN : Yes Procedure/Site Verified by Physician : Yes Type & Screen/Type & Cross Completed : NA DASH ROMO RN - 06/21/2016 11:32 BAGGAGE AGENT RN Who Verified Site : DASH ROMO RN Physician Who Verified Site : GAYLE CAMARENA MD, PhD DASH ROMO RN - 06/21/2016 11:32 BAGGAGE AGENT LUIS MIGUEL Screening Known Obstructive Sleep Apnea : No - NOT diagnosed with LUIS MIGUEL LUIS MIGUEL Score : Total Sleep Apnea Clinical Score: 1.00 06/03/16 LUIS MIGUEL Results : High BP or Take Medications for High BP: No 06/03/16 Known Obstructive Sleep Apnea: No - NOT diagnosed with LUIS MIGUEL 06/03/16 Neck Circumference - LUIS MIGUEL: 34/35 06/03/16 Frequency of Gasping, Choking, Snorting: Never 06/03/16 Frequency of Snoring: Often (1-2 times per week) 06/03/16 Total Number of Historical Features: 0 06/03/16 DASH ROMO RN - 06/21/2016 11:32 BAGGAGE AGENT LUIS MIGUEL Assessment Do you have high blood pressure or have you been told to take medication for high blood pressure? : No Frequency of Snoring : Occasionally (4-8 times per year) Frequency of Gasping, Choking, Snorting : Never Total Number of Historical Features : 0 Neck Circumference (cm) : 34/35 Total Sleep Apnea Clinical Score Calc : 1 DASH ROMO RN - 06/21/2016 11:32 BAGGAGE AGENT Preop Holding Mode of Arrival : Cart Preoperative Orders Complete : Yes DASH ROMO RN - 06/21/2016 11:32 BAGGAGE AGENT Advance Directive Advanced Directives : No Advance Directive Additional Information : No DASH ROMO RN - 06/21/2016 11:32 BAGGAGE AGENT Preprocedural Pause Type of Pause : Preprocedural Pause Consent Correct : Yes Correct Patient Identity : Patient wristband ID Correct Procedure Site/Side Verified By : Nurse, , Allied Health Staff Site Marking : N/A Pre-Procedure Pause Verbal Confirm. of : Procedure, Site, Side, Patient Position, Patient ID Perioperative Staff #1 : DASH ROMO checker stocker Staff #2 : GAYLE CAMARENA MD, PhD Perioperative Staff #3 : YUN HUDDLESTON CRNA checker stocker Staff #4 : ALYCE PULLIAM MONICA R RN - 06/21/2016 11:58 BAGGAGE AGENT OR Receiving And Processing Supervisor Checklist Images Present and Correct : N/A Special Equipment Present : N/A Implants Present : N/A Rep Required and Present : N/A Blood Components Present : N/A DASH ROMO RN - 06/21/2016 11:58 BAGGAGE AGENT [facility] Document Id: [id number] BAGGAGE AGENT!20 AGE AGENT documented in this encounter Nursing Notes Warren Santos RDevendra - 06/22/2016 10:07 PM CST Focused Assessment - Gastrointestinal Focused Assessment - Gastrointestinal Entered On: 06/22/2016 22:08 BAGGAGE AGENT Performed On: 06/22/2016 22:07 BAGGAGE AGENT by WARREN SANTOS RN Gastrointestinal GI Patient Stated Symptoms : Cramping Abdomen Description : Symmetric Abdomen Palpation : Non-Tender, Soft Bowel Movement Last Date : 06/22/2016 BAGGAGE AGENT Bowel Sounds All Quadrants : Present Stool Description : Liquid Passing Flatus : Yes WARREN SANTOS RN - 06/22/2016 22:07 BAGGAGE AGENT Pain Scale Pain Scale Verbal 0-10 : Open WARREN SANTOS RN - 06/22/2016 22:07 BAGGAGE AGENT Pain Pain Assessment Grid Pain 1 Location : Rectal Intensity : 6 Alleviating Factors : Medication WARREN SANTOS RN - 06/22/2016 22:10 BAGGAGE AGENT Education General Patient Education Powergrid Topics : Medication dosage, route, scheduling, Nutrition/Diet, Pain Management, Plan of care, Safety, fall Individuals Taught : Patient, Spouse Barriers to Learning : None evident Teaching Method : Explanation Teaching Evaluation : Verbalizes understanding WARREN SANTOS RN - 06/22/2016 22:10 BAGGAGE AGENT Source: [employer] Document Id: [id number] BAGGAGE AGENT!27 AGE AGENT Liliana Coleman R.N. - 06/22/2016 2:08 PM CST PRN Response PRN Response Entered On: 06/22/2016 14:37 BAGGAGE AGENT Performed On: 06/22/2016 14:08 BAGGAGE AGENT by LILIANA COLEMAN RN Intervention Information: ketorolac Performed by CHEVY KHAN RN on 06/22/2016 13:38:00 BAGGAGE AGENT ketorolac,15mg IV Push,Hand Left,Pain PRN Medication Effectiveness Evaluation PRN Medication Effective : No Post Medication Pain Assessment : 9 LILIANA COLEMAN RN - 06/22/2016 14:37 BAGGAGE AGENT Source: [employer] Document Id: [id number] BAGGAGE AGENT!6 AGE AGENT Liliana Coleman R.N. - 06/22/2016 1:36 PM CST PRN Response PRN Response Entered On: 06/22/2016 13:54 BAGGAGE AGENT Performed On: 06/22/2016 13:36 BAGGAGE AGENT by LILIANA COLEMAN RN Intervention Information: diazepam Performed by LILIANA COLEMAN RN on 06/22/2016 12:36:00 BAGGAGE AGENT diazePAM,10mg PO,Spasm PRN Medication Effectiveness Evaluation PRN Medication Effective : Yes Post Medication Pain Assessment : N/A LILIANA COLEMAN RN - 06/22/2016 13:54 BAGGAGE AGENT Source: [employer] Document Id: [id number] BAGGAGE AGENT!4 AGE AGENT Liliana Coleman R.N. - 06/22/2016 1:33 PM CST PRN Response PRN Response Entered On: 06/22/2016 13:54 BAGGAGE AGENT Performed On: 06/22/2016 13:33 BAGGAGE AGENT by LILIANA COLEMAN RN Intervention Information: oxycodone Performed by LILIANA COLEMAN RN on 06/22/2016 12:33:00 BAGGAGE AGENT oxyCODONE,15mg PO,Pain PRN Medication Effectiveness Evaluation PRN Medication Effective : No Post Medication Pain Assessment : 8 LILIANA COLEMAN RN - 06/22/2016 13:54 BAGGAGE AGENT Source: [employer] Document Id: [id number] BAGGAGE AGENT!4 AGE AGENT Liliana Coleman R.N. - 06/22/2016 10:11 AM CST PRN Response PRN Response Entered On: 06/22/2016 13:54 BAGGAGE AGENT Performed On: 06/22/2016 10:11 BAGGAGE AGENT by LILIANA COLEMAN RN Intervention Information: oxycodone Performed by LILIANA COLEMAN RN on 06/22/2016 09:11:00 BAGGAGE AGENT oxyCODONE,15mg PO,Pain PRN Medication Effectiveness Evaluation PRN Medication Effective : Yes Post Medication Pain Assessment : 5 LILIANA COLEMAN RN - 06/22/2016 13:54 BAGGAGE AGENT Source: [employer] Document Id: [id number] BAGGAGE AGENT!4 AGE AGENT Liliana Coleman R.N. - 06/22/2016 9:44 AM CST Protocol Vascular Access Adult Protocol Vascular Access Adult Entered On: 06/22/2016 9:44 BAGGAGE AGENT Performed On: 06/22/2016 9:44 BAGGAGE AGENT by LILIANA COLEMAN RN Vascular Access Adult Protocol Age 15 years or older Adult Protocol : Yes Vascular Access Device Adult : Yes Exclusion Criteria Adult Vascular Access Protocol : Patient has none of the below exclusions Vascular Access Protocol Status Adult : Criteria Met LILIANA COLEMAN RN - 06/22/2016 9:44 BAGGAGE AGENT Source: [employer] Document Id: [id number] BAGGAGE AGENT!8 AGE AGENT Gris Smith - 06/22/2016 3:04 AM CST PRN Response PRN Response Entered On: 06/22/2016 5:05 BAGGAGE AGENT Performed On: 06/22/2016 3:04 BAGGAGE AGENT by GRIS SMITH Intervention Information: oxycodone Performed by GRIS SMITH on 06/22/2016 02:04:00 BAGGAGE AGENT oxyCODONE,15mg PO,Pain PRN Medication Effectiveness Evaluation PRN Medication Effective : Yes Post Medication Pain Assessment : 5 GRIS SMITH - 06/22/2016 5:05 BAGGAGE AGENT Source: [employer] Document Id: [id number] BAGGAGE AGENT!4 AGE AGENT Gris Smith - 06/22/2016 1:03 AM CST PRN Response PRN Response Entered On: 06/22/2016 2:40 BAGGAGE AGENT Performed On: 06/22/2016 1:03 BAGGAGE AGENT by GRIS SMITH Intervention Information: ketorolac Performed by GRIS SMITH on 06/22/2016 00:33:00 BAGGAGE AGENT ketorolac,15mg IV Push,Hand Left,Pain PRN Medication Effectiveness Evaluation PRN Medication Effective : Yes Post Medication Pain Assessment : 4 GRIS SMITH - 06/22/2016 2:40 BAGGAGE AGENT Source: [facility] [employer] Document Id: [id number] BAGGAGE AGENT!4 AGE AGENT Gris Smith - 06/21/2016 9:10 PM CST PRN Response PRN Response Entered On: 06/22/2016 0:29 BAGGAGE AGENT Performed On: 06/21/2016 21:10 BAGGAGE AGENT by GRIS SMITH Intervention Information: diazepam Performed by GRIS SMITH on 06/21/2016 20:10:00 BAGGAGE AGENT diazePAM,10mg PO,Spasm PRN Medication Effectiveness Evaluation PRN Medication Effective : Yes GRIS SMITH - 06/22/2016 0:29 BAGGAGE AGENT Source: [facility] [employer] Document Id: [id number] BAGGAGE AGENT!3 AGE AGENT Royal Olson R.R.T., C.R.T. - 06/21/2016 5:43 PM CST RT Tobacco Cessation Education RT Tobacco Cessation Education Entered On: 06/21/2016 17:44 BAGGAGE AGENT Performed On: 06/21/2016 17:43 BAGGAGE AGENT by ROYAL OLSON.R.T., C.R.T. Education Smoking Education Grid Topic : Smoking cessation programs Individuals Taught : Patient, Friend Barriers to Learning : None evident Teaching Method : Printed materials Teaching Evaluation : Verbalizes understanding ROYAL OLSONR.T., C.R.T. - 06/21/2016 17:43 BAGGAGE AGENT Source: [facility] [employer] Document Id: [id number] BAGGAGE AGENT!9 AGE AGENT Toribio Cooley R.N. - 06/21/2016 5:[address] st cath for 450 cc urine, clear. Electronically Signed By: TORIBIO COOLEY RN On: 06/21/2016 05:18 PM Source: [facility] [employer] Document Id: [id number] AGE AGENT Toribio Cooley R.N. - 06/21/2016 4:10 PM CST pt c/o nausea. 4 mg zofran slow IVP. ALso c/o need to urinate. not able to go on bedpan. bladder scan for 300 cc urine. requesting nicotine inhaler. Electronically Signed By: TORIBIO COOLEY RN On: 06/21/2016 04:12 PM Source: [facility] [employer] Document Id: [id number] AGE AGENT Rosalind Ding R.N. - 06/21/2016 2:45 PM CST PRN Response PRN Response Entered On: 06/21/2016 14:00 BAGGAGE AGENT Performed On: 06/21/2016 14:45 BAGGAGE AGENT by ROSLAIND DING RN Intervention Information: oxycodone Performed by ROSALIND DING RN on 06/21/2016 13:45:00 BAGGAGE AGENT oxyCODONE,10mg PO,Pain PRN Medication Effectiveness Evaluation PRN Medication Effective : No Post Medication Pain Assessment : 7 ROSALIND DING RN - 06/21/2016 14:00 BAGGAGE AGENT Source: [facility] [employer] Document Id: [id number] BAGGAGE AGENT!4 AGE AGENT Rosalind Ding R.N. - 06/21/2016 2:35 PM CST Spinal analgesia given to pt. Electronically Signed By: ROSALIND DING RN On: 06/21/2016 02:35 PM Source: [facility] [employer] Document Id: [id number] AGE AGENT Rosalind Ding R.N. - 06/21/2016 2:[address] yLnn in at bedside to discuss plan with pt. Electronically Signed By: ROSALIND DING RN On: 06/21/2016 02:13 PM Source: [employer] Document Id: [id number] AGE AGENT Rosalind Ding R.N. - 06/21/2016 2:00 PM CST surgion called to speak with pt about plan of care. stats she could admit pt and recieve and epidural for pain control. Electronically Signed By: ROSALIND DING RN On: 06/21/2016 02:01 PM Source: [employer] Document Id: [id number] AGE AGENT Rosalind Ding R.N. - 06/21/2016 2:00 PM CST PRN Response PRN Response Entered On: 06/21/2016 14:00 BAGGAGE AGENT Performed On: 06/21/2016 14:00 BAGGAGE AGENT by ROSALIND DING RN Intervention Information: diazepam Performed by LUCA LAWLER RN on 06/21/2016 13:30:00 BAGGAGE AGENT diazePAM,2mg IV Push,Hand Left,Anxiety PRN Medication Effectiveness Evaluation PRN Medication Effective : No Post Medication Pain Assessment : 7 ROSALIND DING RN - 06/21/2016 14:00 BAGGAGE AGENT Source: [employer] Document Id: [id number] BAGGAGE AGENT!4 AGE AGENT Rosalind Ding R.N. - 06/21/2016 1:52 PM CST pt given morphine for pain control, and oral oxycodone 10mg. Electronically Signed By: ROSALIND DING RN On: 06/21/2016 01:52 PM Source: [facility] [employer] Document Id: [id number] AGE AGENT Rosalind Ding R.N. - 06/21/2016 1:48 PM CST PRN Response PRN Response Entered On: 06/21/2016 14:00 BAGGAGE AGENT Performed On: 06/21/2016 13:48 BAGGAGE AGENT by ROSALIND DING RN Intervention Information: hydromorphone Performed by LUCA LAWLER RN on 06/21/2016 13:18:00 BAGGAGE AGENT HYDROmorphone,0.5mg IV Push,Hand Left,Pain PRN Medication Effectiveness Evaluation PRN Medication Effective : No Post Medication Pain Assessment : 7 ROSALIND DING RN - 06/21/2016 14:00 BAGGAGE AGENT Source: [facility] [employer] Document Id: [id number] BAGGAGE AGENT!4 AGE AGENT Rosalind Ding R.N. - 06/21/2016 1:[address] Lynn in to assess pt and states she is going to order morphine for pt pain and oxycodone. oralto maintain her pain. Electronically Signed By: ROSALIND DING RN On: 06/21/2016 01:42 PM Source: [facility] [employer] Document Id: [id number] AGE AGENT Dash Romo R.N. - 06/21/2016 11:32 AM CST Day Surgery Admission History/Asmt Adult Document Has Been Updated Day Surgery Admission History/Asmt Adult Entered On: 06/21/2016 11:35 BAGGAGE AGENT Performed On: 06/21/2016 11:32 BAGGAGE AGENT by DASH ROMO RN General Info Preferred Name : Silvia Admitted From : Non-Health Care Facility Point of Origin Mode of Arrival : Wheelchair Present in Room During Exam/Procedure : Spouse Chief Complaint : Rectal Pain Preferred Communication Mode : Verbal Information Given By : Patient Languages : Botswanan Is Patient Female and 13-50 no hysterectomy : Yes Status : Patient denies Are you ? : No LMP Date : N/A DASH ROMO RN - 06/21/2016 11:32 BAGGAGE AGENT Allergy (As Of: 06/21/2016 11:35:44 BAGGAGE AGENT) Allergies (Active) NKA Estimated Onset Date: Unspecified ; Created By: KATIE BRUNNER MD; Reaction Status: Active ; Category: Drug ; Substance: NKA ; Type: Allergy ; Updated By: KATIE BRUNNER MD; Reviewed Date: 06/15/2016 17:35 BAGGAGE AGENT Anesth/Transfusion Anesthesia/Transfusions : Prior anesthesia Transfusion Acceptable in Emergency : Yes Gnosticist/Other Objections to Blood Transfusions : No DASH ROMO RN - 06/21/2016 11:32 BAGGAGE AGENT ID Screen Drug Resistant Organism : No Travel Within Last 21 Days : No DASH ROMO RN - 06/21/2016 11:32 BAGGAGE AGENT Nutrition Have you recently lost weight without trying? : No Decreased Appetite Nutrition : No Tube Feedings or Parenteral Nutrition : No MST Score : 0 DASH ROMO RN - 06/21/2016 11:32 BAGGAGE AGENT Home Environment Current Daily Living Assistance : None Living Situation : Home independently Home Equipment : None Sensory Deficits : None Mobility Assistance Prior to Admission : Independent DASH ROMO RN - 06/21/2016 11:32 BAGGAGE AGENT Dependent Habits Exposure to Tobacco Smoke : [...] Quit : Yes Alcohol Use : Yes DASH ROMO RN - 06/21/2016 11:32 BAGGAGE AGENT Caffeine Use Grid Caffeine Use : None DASH ROMO RN - 06/21/2016 11:32 BAGGAGE AGENT Recreational Drug Use Grid Drug Use : Current Type : Alcohol Route : Oral Frequency : Other: TWICE A MONTH DASH ROMO RN - 06/21/2016 11:32 BAGGAGE AGENT AUDIT Tool How Often Do You Have A Drink : 2 to 4 times a month How Many Drinks in a Day When Drinking : 1 or 2 Six or More Drinks On One Occassion : Never Audit Phase 1 Score : 2 DASH ROMO RN - 06/21/2016 11:32 BAGGAGE AGENT Psychosocial Adult Domestic Abuse Concerns : None Behavioral Health Screen/Safety Assmt : No Gnosticist Preference : No Gnosticist Affiliation DASH ROMO RN - 06/21/2016 11:32 BAGGAGE AGENT Advance Directive Advanced Directives : No Advance Directive Additional Information : No DASH ROMO RN - 06/21/2016 11:32 BAGGAGE AGENT Educ Needs Patient/Family Education Needs : Preoperative instructions DASH ROMO RN - 06/21/2016 11:32 BAGGAGE AGENT Learning Style Preference Adult Grid Patient : Verbal explanation Family : Verbal explanation DASH ROMO RN - 06/21/2016 11:32 BAGGAGE AGENT Psycho/Emotional Pain Symptoms : Yes DASH ROMO RN - 06/21/2016 11:32 BAGGAGE AGENT Pain Scale Pain Scale Verbal 0-10 : Open DASH ROMO RN - 06/21/2016 11:32 BAGGAGE AGENT Pain Pain Assessment Grid Pain 1 Location : Buttock DASH ROMO RN - 06/21/2016 11:32 BAGGAGE AGENT Source: [facility] [employer] Document Id: [id number] BAGGAGE AGENT!80 AGE AGENT documented in this encounter OR Notes Op Note - Gayle Camarena M.D., Ph.D. - 06/21/2016 12:00 AM CST HOPRER8 SURGEON Gayle Camarena MD, PhD PREOPERATIVE DIAGNOSIS Persistent postoperative perianal pain, status post hemorrhoidectomy on June 03, 2016. POSTPROCEDURE DIAGNOSES 1. Persistent postoperative perianal pain, status post hemorrhoidectomy on June 03, 2016. 2. Internal anal sphincter spasm. 3. Anal fissure. INDICATION Treatment. BACKGROUND Mrs. Blanchard is a 31-year-old female who underwent a 2-column hemorrhoidectomy on June 03, 2016.She has had persistent perianal pain particularly with defecation during this time. Numerous topicaland systemic analgesics have been tried with minimal success. The decision was made to return to theoperating room today for examination under anesthesia and possible Botox injection versus internal sphincterotomy. OPERATIVE NARRATIVE Mrs. Blanchard was taken OR 2 where she was identified by name and MRN. She was positioned prone on the OR table and placed under moderate sedation by our anesthesia colleagues. Her perineum was preppedand draped in the usual fashion and a procedural pause performed verifying the correct patient, procedure, administration of antibiotics and fire risk. External examination demonstrated full perianal tissues consistent with edema. The posterior hemorrhoidal column remains intact. This was not excised at her previous operation. The surgical suture lines were inspected noting to be intact as well. Speculum examination and digital rectal examination demonstrated no evidence of abscess or postoperative complication. There was an anteriorly based fissure from the anal verge extending into the rectum. The sphincter mechanism was tight. One hundred units of botulism toxin were injected into the internal sphincter complex anteriorly from the 4 o'clock to the 8 o'clock positions. A mixture of Exparel and bupivacaine were then infiltrated circumferentially around the rectum and perianal tissues. A suture on the left anterior side was removed as the tissues were felt to be well-healed and this seemed to be causing tension. The perineum was then dressed with fluff gauze and a panty was applied. The patient was allowed to awaken from her sedation and was taken to the ICU for ongoing recovery. Estimated blood loss was 2 mL. This is a type 5 wound, no incision and all counts were correct at the end of procedure. Gayle Camarena M.D., Ph.D./aos Electronically Signed By: GAYLE CAMARENA MD, PhD On: 07/06/2016 04:45 PM Source: [facility] Document Id: [id number] AGE AGENT documented in this encounter Miscellaneous Notes Miscellaneous - Conversion, Historical Provider Ser - 06/22/2016 11:00 PM BAGGAGE AGENT Coding Summary-Paper Based CODING DATE: 06/26/2016 FINAL [facility] STATUS: * Discharged to Home or Self Care PAYOR: Medicaid ADMIT DX: K62.89 Other specified diseases of anus and rectum REASON FOR VISIT DX: K62.89 Other specified diseases of anus and rectum FINAL DX: PRINCIPAL: G89.18 Other acute postprocedural pain SECONDARY: K59.4 Anal spasm K60.2 Anal fissure, unspecified K64.8 Other hemorrhoids F17.200 Nicotine dependence, unspecified, uncomplicated K21.9 Gastro-esophageal reflux disease without esophagitis PROCEDURES DOCTOR NAME DATE 38544 CHEMODENERVATION INTERNAL ANAL FRUNZAC, GAYLE W06/21/2016 SPHINCTER 64394 Injection(s), of diagnostic or SHANNA, JANETT L 06/21/2016 therapeutic substance(s) (eg, anesthetic, antispasmodic, opioid, steroid, other solution), not including neurolytic substances, including needle or catheter placement, interlaminar epidural or subarachnoid, lumbar or sacral XS Separate structure, a service that is distinct because it was performed on a separate organ/structure NOTE: The code number assigned matches the documented diagnosis and / or procedure in the patient's chart. However, the narrative phrase printed from the coding software may appear abbreviated, or result in slightly different terminology. Coded By: MARYELLEN OLIVAS [facility] Date Saved: 06/26/2016 07:50 am Source: [facility] Document Id: [id number] Miscellaneous - Letha Tafoya - 06/22/2016 3:33 PM CST Team Meeting Notes Team Meeting Notes Entered On: 06/22/2016 15:34 BAGGAGE AGENT Performed On: 06/22/2016 15:33 BAGGAGE AGENT by LETHA TAFOYA Team Notes Team Meeting Grid Discipline : Transaction Coordinator, Nurse, Pharmacist, Physical Therapist, Residential Program Manager, Utilization review Topics : Medication, Nutrition/Diet, Pain Management, Plan of care Goal of the Day : Medication for pain Patient/Team Agrees with Goal? : Yes LETHA TAFOYA - 06/22/2016 15:33 BAGGAGE AGENT Source: [facility] [employer] Document Id: [id number] BAGGAGE AGENT!8 AGE AGENT Lyssacellaneous - Liliana Coleman R.N. - 06/22/2016 2:12 PM CST Adult Activities of Daily Living Adult Activities of Daily Living Entered On: 06/22/2016 14:14 BAGGAGE AGENT Performed On: 06/22/2016 14:12 BAGGAGE AGENT by LILIANA COLEMAN RN ADLs I Patient Position : Elevate head of bed 30 degrees Activity Status ADL : Toileting at bedside Activity Assistance : Maximal 2-3 person assistance Assistive Device : None Antiembolism Device : Sequential Compression Device Antiembolism Device Laterality : Bilateral Antiembolism Device Removal Reason : Activity Anti Embolism Devices Time Applied : 06/22/2016 7:00 BAGGAGE AGENT LILIANA COLEMAN RN - 06/22/2016 14:12 BAGGAGE AGENT ADLs II Hygiene Assistance Grid Foot Care : Minimum assistance Hair Care : Independent Oral Care : Independent Yoselin Care : Moderate assistance LILIANA COLEMAN RN - 06/22/2016 14:12 BAGGAGE AGENT Branch Catheter Care Done : Yes Bowel Movement Last Date : 06/22/2016 BAGGAGE AGENT Standard Safety : Bed in low position, Call device within reach, ID band check, Non-Slip footwear, Rounds every 1 hour, Upper/Half-length side-rails up, Wheels locked LILIANA COLEMAN RN - 06/22/2016 14:12 BAGGAGE AGENT ADLs Adult Nutrition Diet Type : Diet -- 06/21/16 15:20:00 BAGGAGE AGENT, General (No Restrictions) Feeding Assistance : Independent Breakfast : 100 % Lunch : 50 % LILIANA COLEMAN RN - 06/22/2016 14:12 BAGGAGE AGENT [facility] Document Id: [id number] BAGGAGE AGENT!26 AGE AGENT Miscellaneous - Liliana Coleman R.N. - 06/22/2016 9:00 AM CST Adult Ongoing Assessment Document Has Been Updated Adult Ongoing Assessment Entered On: 06/22/2016 10:41 BAGGAGE AGENT Performed On: 06/22/2016 9:00 BAGGAGE AGENT by LILIANA COLEMAN RN Respiratory Respiratory Patient Stated Symptoms : None Respirations : Unlabored Distress : None Respiratory Pattern : Regular All Lobes Breath Sounds : Clear Cough : None LILIANA COLEMAN RN - 06/22/2016 10:38 BAGGAGE AGENT Cardiovascular CV Patient Stated Symptoms : None Heart Rhythm : Regular Antiembolism Device Yes/No : Yes Nail Bed Color : [place] Capillary Refill : Less than 2 seconds Edema Assessment : No LILIANA COLEMAN RN - 06/22/2016 10:38 BAGGAGE AGENT Radial Pulse, Left : 2+ Normal Radial Pulse, Right : 2+ Normal Dorsalis Pedis Pulse, Left : 2+ Normal Dorsalis Pedis Pulse, Right : 2+ Normal LILIANA COLEMAN RN - 06/22/2016 10:38 BAGGAGE AGENT Skin Color : [place] Skin Description : Moist Skin Temperature : Warm Activity Tolerance : Without distress LILIANA COLEMAN RN - 06/22/2016 10:38 BAGGAGE AGENT Antiembolism Device Antiembolism Device : Sequential Compression Device Antiembolism Device Laterality : Bilateral Antiembolism Device Status : On Anti Embolism Devices Time Applied : 06/22/2016 7:00 BAGGAGE AGENT LILIANA COLEMAN RN - 06/22/2016 10:38 BAGGAGE AGENT Neurological Neuro Patient Stated Symptoms : None Orientation : Oriented x 3 Level of Consciousness : Alert Gait : Unable to assess Swallowing Difficulty/Aspiration Risk : None Last Well Time Known : Not applicable LILIANA COLEMAN RN - 06/22/2016 10:38 BAGGAGE AGENT Psycho/Emotional Affect/Behavior : Calm, Cooperative, Appropriate Pain Symptoms : Yes LILIANA COLEMAN RN - 06/22/2016 10:38 BAGGAGE AGENT Coping Grid Identifies effective strategies : Yes Reports increase in psychological comfort : Yes Indicates sense of control : Yes Stressors perceived within control : Yes LILIANA COLEMAN RN - 06/22/2016 10:38 BAGGAGE AGENT Safety Grid Vision, Hearing, Mobility Adequate to Meet Safety Needs : Yes LILIANA COLEMAN RN - 06/22/2016 10:38 BAGGAGE AGENT Pain Scale Pain Scale Verbal 0-10 : Open LILIANA COLEMAN RN - 06/22/2016 10:38 BAGGAGE AGENT Pain Pain Assessment Grid Pain 1 Location : Rectal Intensity : 7 Quality : Aching, Sharp Aggravating Factors : Movement LILIANA COLEMAN RN - 06/22/2016 10:38 BAGGAGE AGENT Gastrointestinal Stool Color : Brown Stool Description : Soft Stool Amount : Large Passing Flatus : Yes LILIANA COLEMAN RN - 06/22/2016 14:16 BAGGAGE AGENT GI Patient Stated Symptoms : None Abdomen Description : Rounded Abdomen Palpation : Soft KAYLA COLEMANN Daja RN - 06/22/2016 10:38 BAGGAGE AGENT Bowel Movement Last Date : 06/22/2016 BAGGAGE AGENT KAYLA COLEMANDontrell Farnsworth RN - 06/22/2016 14:16 BAGGAGE AGENT Bowel Sounds All Quadrants : Present KAYLA COLEMANN Daja RN - 06/22/2016 10:38 BAGGAGE AGENT Nutrition Appetite : Excellent Eating Difficulties : None Feeding Ability : Complete independence KAYLA COLEMANDontrell Farnsworth RN 06/22/2016 10:38 BAGGAGE AGENT Genitourinary Patient Stated Symptoms : None Urinary Elimination : Urinary catheter Urine Color : Straw Urine Description : Clear Urine Odor : Odorless KAYLA COLEMANDontrell Farnsworth RN - 06/22/2016 10:38 BAGGAGE AGENT Urinary Catheter Details Date/Time Catheter Discontinued : 06/22/2016 15:00 BAGGAGE AGENT KAYLA COLEMANN Daja RN - 06/22/2016 15:01 BAGGAGE AGENT Urinary Catheter Clinical Indication : Status post urologic/gynecologic/rectal surgery, Urinary retention/obstruction Continued Need for Urinary Catheter : Yes KAYLA COLEMANN Daja RN - 06/22/2016 10:38 BAGGAGE AGENT Catheter discontinued : Yes KAYLA COLEMANDontrell Farnsworth RN - 06/22/2016 15:01 BAGGAGE AGENT Integumentary Integumentary Patient Stated Symptoms : None Skin Turgor : Elastic Skin Integrity : Intact Mucous Membrane Color : [place] Mucous Membrane Description : Moist Skin Color : [place] Skin Description : Moist Skin Temperature : Warm LILIANA COLEMAN RN - 06/22/2016 10:38 BAGGAGE AGENT Lázaro Sensory Perception Lázaro : No impairment Moisture Lázaro : Occasionally moist Activity Lázaro : Walks frequently Mobility Lázaro : No limitations Nutrition Lázaro : Excellent Friction and Shear Lázaro : No apparent problem Lázaro Score : 22 KAYLA COLEMANN Daja - 06/22/2016 10:38 BAGGAGE AGENT Peripheral IV Peripheral IV Assess/Intervention Grid Peripheral IV #1 IV Activity : Assessment Date of Insertion : 06/21/2016 BAGGAGE AGENT IV Site : Hand Laterality : Left Catheter Size : 18 Catheter Type : Over the needle Site Condition : No complications Infiltration Score : 0 Phlebitis Score : 0 Primary Tubing Changed : 06/21/2016 BAGGAGE AGENT Secondary Tubing Changed : 06/21/2016 BAGGAGE AGENT Flow/ Patency : No complications LILIANA COLEMAN RN - 06/22/2016 10:38 BAGGAGE AGENT Hendrich II Fall Risk Confusion/Disorientation Hendrich : No Depression Fall Risk Hendrich : No Altered Elimination Fall Risk Hendrich : Yes Dizziness/Vertigo Fall Risk Hendrich : No Gender, Male Fall Risk Hendrich : No Prescribed Antiepileptics Hendrich : No Prescribed Benzodiazepines Hendrich : No Rising From Chair Fall Risk Hendrich : Able to rise in a single movement, no loss of balance with steps Fall Risk Score Hendrich II : 1 LILIANA COLEMAN RN - 06/22/2016 10:38 BAGGAGE AGENT Safe Patient Handling Safe Pt Handling Independent : Yes - No equipment needed Safe Pt Handling Equipment Rec : No Equipment Needed Repositioning Device Recommended : No LILIANA COLEMAN RN - 06/22/2016 10:38 BAGGAGE AGENT Education General Patient Education Powergrid Topics : Activity limitations/expectations, Diagnostic results, Disease process, Medication dosage, route, scheduling, Medication precautions, side effects, food/drug interaction, Nutrition/Diet, Pain Management, Plan of care, Safety, fall, Safety, medication Individuals Taught : Patient, Spouse Barriers to Learning : None evident Teaching Method : Explanation Teaching Evaluation : Verbalizes understanding LILIANA COLEMAN RN - 06/22/2016 10:38 BAGGAGE AGENT Source: [facility] POWERCH[employer] Document Id: [id number] BAGGAGE AGENT!4 AGE AGENT Miscellaneous - Светлана Morris, R.Ph. - 06/22/2016 2:11 AM CST Pharmacy Communication Note Pharmacy Communication Note Entered On: 06/22/2016 2:12 BAGGAGE AGENT Performed On: 06/22/2016 2:11 BAGGAGE AGENT by СВЕТЛАНА MORRIS Pharmacy Communication Note Pharmacy Communication Note Status : Completed WILL ACOSTA Pharm.DEmeka, R.Ph - 06/22/2016 12:24 BAGGAGE AGENT Pharmacy Communicate Note Grid Date of Initials : 06/22/2016 BAGGAGE AGENT 06/22/2016 BAGGAGE AGENT Initials : MAYKEL GRIGGS Comments : Pt previously on oxycodone 5 mg tab; take 1 tab for pain 2-4, 2 tabs for pain 5-6, and 3 tabs for pain 7-10 Patient getting 1-3 tabs of oxycodone 15 (max=45mg). Please check on rounds if this is correct order WILL ACOSTA Pharm.D., R.Ph - 06/22/2016 12:24 BAGGAGE AGENT СВЕТЛАНА MORRIS - 06/22/2016 2:11 BAGGAGE AGENT Source: [employer] Document Id: [id number] BAGGAGE AGENT!8 AGE AGENT Olga - Gris Smith - 06/21/2016 11:00 PM CST Adult Activities of Daily Living Adult Activities of Daily Living Entered On: 06/22/2016 0:20 BAGGAGE AGENT Performed On: 06/21/2016 23:00 BAGGAGE AGENT by GRIS SMITH ADLs I Patient Position : Elevate head of bed 30 degrees Activity Status ADL : Complete bedrest Gear Shaper Repositioned : Electrode GRIS SMITH - 06/22/2016 0:19 BAGGAGE AGENT ADLs II Hygiene Assistance Grid Hair Care : Independent Oral Care : Independent Yoselin Care : Moderate assistance GRIS SMITH - 06/22/2016 0:19 BAGGAGE AGENT Branch Catheter Care Done : Yes Elimination Assistance Offered Q2H : Independent Bowel Movement Last Date : 06/20/2016 BAGGAGE AGENT Standard Safety : Bed alarm ON, Bed in low position, Call device within reach, ID band check, Night light, Non-Slip footwear, Rounds every 2 hours, Upper/Half- length side-rails up, Wheels locked GRIS SMITH - 06/22/2016 0:19 BAGGAGE AGENT Source: [employer] Document Id: [id number] BAGGAGE AGENT!14 AGE AGENT Olga - Gris Smith - 06/21/2016 11:00 PM CST Adult Ongoing Assessment Adult Ongoing Assessment Entered On: 06/22/2016 0:27 BAGGAGE AGENT Performed On: 06/21/2016 23:00 BAGGAGE AGENT by GRIS SMITH Respiratory Respiratory Patient Stated Symptoms : None Respirations : Unlabored Distress : None Respiratory Pattern : Regular All Lobes Breath Sounds : Clear Cough and Deep Breathe : Done Cough : None Sputum Amount : None Suction : None Airway : Patent GRIS SMITH 06/22/2016 0:19 BAGGAGE AGENT Cardiovascular CV Patient Stated Symptoms : None Heart Rhythm : Regular Heart Sounds ICU : S1S2 Antiembolism Device Yes/No : Yes Nail Bed Color : [place] Capillary Refill : Less than 2 seconds Edema Assessment : No Pacer : No GRIS SMITH 06/22/2016 0:19 BAGGAGE AGENT Radial Pulse, Left : 2+ Normal Radial Pulse, Right : 2+ Normal Dorsalis Pedis Pulse, Left : 2+ Normal Dorsalis Pedis Pulse, Right : 2+ Normal GRIS SMITH 06/22/2016 0:19 BAGGAGE AGENT Antiembolism Device Antiembolism Device : Sequential Compression Device Antiembolism Device Status : Patient refused GRIS SMITH 06/22/2016 0:19 BAGGAGE AGENT Neurological Neuro Patient Stated Symptoms : None Orientation : Oriented x 3 Level of Consciousness : Alert Gait : Unable to assess Swallowing Difficulty/Aspiration Risk : None Last Well Time Known : Not applicable GRIS SMITH 06/22/2016 0:19 BAGGAGE AGENT Blanco Coma Eye Opening Response [place] : Spontaneously Best Verbal Response Blanco : Oriented Best Motor Response Blanco : Obeys simple commands [place] Coma Score : 15 GRIS SMITH 06/22/2016 0:19 BAGGAGE AGENT Psycho/Emotional Affect/Behavior : Cooperative, Anxious, Restless Pain Symptoms : Yes Feels Rested : No GRIS SMITH 06/22/2016 0:19 BAGGAGE AGENT Pain Scale Pain Scale Verbal 0-10 : Open GRIS SMITH 06/22/2016 0:19 BAGGAGE AGENT Pain Pain Assessment Grid Pain 1 Location : Buttock Intensity : 4 GRIS SMITH 06/22/2016 0:19 BAGGAGE AGENT Gastrointestinal GI Patient Stated Symptoms : Abdominal pain, Gas Abdomen Description : Rounded, Symmetric Abdomen Palpation : Non-Tender, Soft Bowel Movement Last Date : 06/20/2016 BAGGAGE AGENT Bowel Sounds All Quadrants : Present Passing Flatus : Yes GRIS SMITH 06/22/2016 0:19 BAGGAGE AGENT Nutrition Appetite : Good Eating Difficulties : None Feeding Ability : Complete independence GRIS SMITH 06/22/2016 0:19 BAGGAGE AGENT Genitourinary Patient Stated Symptoms : Retention Urinary Elimination : Urinary catheter Voiding Difficulties : Retention Urine Color : Yellow Urine Description : Clear GRIS SMITH 06/22/2016 0:19 BAGGAGE AGENT Urinary Catheter Details Urinary Catheter Clinical Indication : Status post urologic/gynecologic/rectal surgery, Urinary retention/obstruction Continued Need for Urinary Catheter : Yes Urinary Catheter Insertion : During hospital stay Date/Time Catheter Insertion : 06/21/2016 20:35 BAGGAGE AGENT Catheter discontinued : No GRIS SMITH 06/22/2016 0:19 BAGGAGE AGENT Urinary Catheter Urinary Catheter Activity Type : Assessment Urinary Catheter Insertion Site : Urethral Urinary Catheter Size : 16 Telugu Urinary Catheter Type : Indwelling/Continuous Urinary Catheter Balloon Inflation : 10 mL sterile water Urinary Catheter Secured : Tape Urinary Catheter Drainage System : Dependent drainage bag GRIS SMITH 06/22/2016 0:19 BAGGAGE AGENT Integumentary Integumentary Patient Stated Symptoms : None Skin Turgor : Elastic Skin Integrity : Intact Mucous Membrane Color : [place] Mucous Membrane Description : Moist Skin Color : Normal for ethnicity Skin Description : Normal Skin Temperature : Warm GRIS SMITH 06/22/2016 0:19 BAGGAGE AGENT Incision/Wound Incision/Wound Care Grid Activity : Assessed Wound Type : Surgical acute GRIS SMITH 06/22/2016 0:19 BAGGAGE AGENT Lázaro Sensory Perception Lázaro : No impairment Moisture Lázaro : Rarely moist Activity Lázaro : Chairfast Mobility Lázaro : Slightly limited Nutrition Lázaro : Excellent Friction and Shear Lázaro : No apparent problem Lázaro Score : 20 MATA SMITHTNEY 06/22/2016 0:19 BAGGAGE AGENT Musculoskeletal Musculoskeletal Patient Stated Symptoms : None MELITAJAYEGRIS BONILLA 06/22/2016 0:19 BAGGAGE AGENT Peripheral IV Peripheral IV Assess/Intervention Grid Peripheral IV #1 IV Activity : Assessment Date of Insertion : 06/21/2016 BAGGAGE AGENT IV Site : Hand Laterality : Left Catheter Size : 18 Catheter Type : Over the needle Site Condition : No complications Drainage Description : None Infiltration Score : 0 Phlebitis Score : 0 Primary Tubing Changed : 06/21/2016 BAGGAGE AGENT Secondary Tubing Changed : 06/21/2016 BAGGAGE AGENT Dressing/ Activity : Dry, Intact Flow/ Patency : No complications GRIS SMITH P - 06/22/2016 0:19 BAGGAGE AGENT Falls Assessment Fall Injury Risk History of Falls : No Patient at Risk for Falls : Yes Fall Injury Risk Factors : None of the below Risk Factors Patient has increased Fall Injury Risk : No GRIS SMITH - 06/22/2016 0:19 BAGGAGE AGENT Hendrich II Fall Risk Confusion/Disorientation Hendrich : No Depression Fall Risk Hendrich : No Altered Elimination Fall Risk Hendrich : Yes Dizziness/Vertigo Fall Risk Hendrich : No Gender, Male Fall Risk Hendrich : No Prescribed Antiepileptics Hendrich : No Prescribed Benzodiazepines Hendrich : Yes Rising From Chair Fall Risk Hendrich : Unable to rise without assistance Fall Risk Score Hendrich II : 6 GRIS SMITH - 06/22/2016 0:19 BAGGAGE AGENT Source: [employer] Document Id: [id number] BAGGAGE AGENT!139 AGE AGENT Miscellaneous - Pearl Redd, R.N. - 06/21/2016 4:45 PM CST Adult Ongoing Assessment Adult Ongoing Assessment Entered On: 06/21/2016 17:53 BAGGAGE AGENT Performed On: 06/21/2016 16:45 BAGGAGE AGENT by PEARL REDD RN Respiratory Respiratory Patient Stated Symptoms : None Respirations : Unlabored Distress : None Respiratory Pattern : Regular All Lobes Breath Sounds : Clear Cough and Deep Breathe : Done Cough : None Sputum Amount : None Suction : None Airway : Patent PEARL REDD RN - 06/21/2016 17:39 BAGGAGE AGENT Cardiovascular CV Patient Stated Symptoms : None Heart Rhythm : Regular Antiembolism Device Yes/No : Yes Nail Bed Color : [place] Capillary Refill : Less than 2 seconds Edema Assessment : No PEARL REDD RN - 06/21/2016 17:39 BAGGAGE AGENT Radial Pulse, Left : 2+ Normal Radial Pulse, Right : 2+ Normal PEARL REDD RN - 06/21/2016 17:39 BAGGAGE AGENT Skin Color : Normal for ethnicity Skin Description : Normal Skin Temperature : Warm Activity Tolerance : Minimal distress REDD PEARL P - 06/21/2016 17:39 BAGGAGE AGENT Neurological Neuro Patient Stated Symptoms : None Orientation : Oriented x 3 Level of Consciousness : Alert Gait : Steady Swallowing Difficulty/Aspiration Risk : None PEARL REDD RN - 06/21/2016 17:39 BAGGAGE AGENT Psycho/Emotional Affect/Behavior : Cooperative, Anxious, Restless Pain Symptoms : Yes PEARL REDD RN 06/21/2016 17:39 BAGGAGE AGENT Coping Grid Identifies effective strategies : No Uses effective strategies : No Stressors perceived within control : No Stable mood with appropriate affect : No Behaviors indicate use of coping mechanism : No Family supportive and involved in care : Yes Values/Beliefs incorporated appropriately : Yes PEARL REDD RN 06/21/2016 17:39 BAGGAGE AGENT Safety Grid Vision, Hearing, Mobility Adequate to Meet Safety Needs : Yes PEARL REDD RN 06/21/2016 17:39 BAGGAGE AGENT Pain Scale Pain Scale Verbal 0-10 : Open PEARL REDD [facility] 06/21/2016 17:39 BAGGAGE AGENT Effects of Pain Grid Appetite : None Concentration : Moderate Daily Life : Mild Emotions : Moderate Relationships : Mild Sleep : Moderate PEARL REDD [facility] 06/21/2016 17:39 BAGGAGE AGENT Pain Pain Assessment Grid Pain 1 Location : Buttock Intensity : 4 Interventions : Medications, Repositioning, Rest PEARL REDD RN 06/21/2016 17:39 BAGGAGE AGENT Gastrointestinal GI Patient Stated Symptoms : Nausea Abdomen Description : Rounded, Symmetric Bowel Movement Last Date : 06/20/2016 BAGGAGE AGENT Bowel Sounds All Quadrants : Present REDDPEARL RN 06/21/2016 17:39 BAGGAGE AGENT Genitourinary Patient Stated Symptoms : None Urinary Elimination : Not voiding Bladder Scan Volume : 300 mL PEARL REDD RN 06/21/2016 17:39 BAGGAGE AGENT Integumentary Integumentary Patient Stated Symptoms : None Skin Turgor : Elastic Skin Integrity : Intact Skin Color : Normal for ethnicity Skin Description : Normal Skin Temperature : Warm PEARL REDD RN - 06/21/2016 17:39 BAGGAGE AGENT Incision/Wound Incision/Wound Care Grid Activity : Assessed Dressing Type : Surgical acute Wound Dressing : Other: kerlix with mesh panty PEARL REDD RN 06/21/2016 17:39 BAGGAGE AGENT Lázaro Sensory Perception Lázaro : No impairment Moisture Lázaro : Rarely moist Activity Lázaro : Walks occasionally Mobility Lázaro : No limitations Nutrition Lázaro : Excellent Friction and Shear Lázaro : No apparent problem Lázaro Score : 22 PEARL REDD RN - 06/21/2016 17:39 BAGGAGE AGENT Musculoskeletal Musculoskeletal Patient Stated Symptoms : None Activity Tolerance : Without distress PEARL REDD RN - 06/21/2016 17:39 BAGGAGE AGENT Peripheral IV Peripheral IV Assess/Intervention Grid Peripheral IV #1 IV Activity : Assessment Date of Insertion : 06/21/2016 BAGGAGE AGENT IV Site : Hand Laterality : Left Catheter Size : 18 Primary Tubing Changed : 06/21/2016 BAGGAGE AGENT Secondary Tubing Changed : 06/21/2016 BAGGAGE AGENT Flow/ Patency : No complications PEARL REDD RN - 06/21/2016 17:39 BAGGAGE AGENT Hendrich II Fall Risk Confusion/Disorientation Hendrich : No Depression Fall Risk Hendrich : No Altered Elimination Fall Risk Hendrich : Yes Dizziness/Vertigo Fall Risk Hendrich : No Gender, Male Fall Risk Hendrich : No Prescribed Antiepileptics Hendrich : No Prescribed Benzodiazepines Hendrich : No Rising From Chair Fall Risk Hendrich : Pushes up, successful in one attempt Fall Risk Score Hendrich II : 2 PEARL REDD RN - 06/21/2016 17:39 BAGGAGE AGENT Safe Patient Handling Safe Pt Handling Independent : Yes - No equipment needed Safe Pt Handling Equipment Rec : No Equipment Needed Repositioning Device Recommended : No PEARL REDD RN - 06/21/2016 17:39 BAGGAGE AGENT Education General Patient Education Powergrid Topics : Plan of care, Postoperative instructions Individuals Taught : Patient Barriers to Learning : Acuity of Illness, Emotional state Teaching Method : Explanation Teaching Evaluation : Needs reinforcement, Verbalizes understanding PEARL REDD RN - 06/21/2016 17:39 BAGGAGE AGENT Source: [facility] POWERCHART Document Id: [id number] BAGGAGE AGENT!126 AGE AGENT Miscellaneous - Rosalind Ding R.NEmeka - 06/21/2016 3:00 PM CST Adult Postprocedure Assessment Adult Postprocedure Assessment Entered On: 06/21/2016 14:53 BAGGAGE AGENT Performed On: 06/21/2016 15:00 BAGGAGE AGENT by ROSALIND DING RN General Skin Color : Normal for ethnicity Skin Description : Dry Skin Temperature : Warm Pain Symptoms : Yes ROSALIND DING RN - 06/21/2016 14:49 BAGGAGE AGENT Pain Scale Pain Scale Verbal 0-10 : Open ROSALIND DING 06/21/2016 14:49 BAGGAGE AGENT Pain Pain Assessment Grid Pain 1 Location : Buttock Intensity : 3 ROSALIND DING 06/21/2016 14:49 BAGGAGE AGENT Cardiovascular Heart Rhythm : Regular Nail Bed Color : [place] Edema Assessment : No Capillary Refill : Less than 2 seconds ROSALIND DING 06/21/2016 14:49 BAGGAGE AGENT Posttibial Pulse, Left : 2+ Normal Posttibial Pulse, Right : 2+ Normal ROSALIND DING 06/21/2016 14:49 BAGGAGE AGENT Respiratory Respiratory Patient Stated Symptoms : None Respirations : Unlabored Distress : None Respiratory Pattern : Regular All Lobes Breath Sounds : Clear Cough : None Sputum Amount : None Suction : None ROSALIND DING 06/21/2016 14:49 BAGGAGE AGENT GI/ Nausea Symptoms : No ROSALIND DING 06/21/2016 14:49 BAGGAGE AGENT Integumentary Integumentary Patient Stated Symptoms : None Skin Turgor : Elastic Skin Integrity : Intact Mucous Membrane Color : [place] Mucous Membrane Description : Moist Skin Color : Normal for ethnicity Skin Description : Dry Skin Temperature : Warm ROSALIND DING 06/21/2016 14:49 BAGGAGE AGENT Peripheral IV Peripheral IV Assess/Intervention Grid Peripheral IV #1 IV Activity : Assessment IV Site : Hand Laterality : Left Catheter Size : 18 Site Condition : No complications Drainage Description : None ROSALIND DING 06/21/2016 14:49 BAGGAGE AGENT I&O Incont/BR : 1 ROSALIND DING 06/21/2016 14:49 BAGGAGE AGENT Lower Extremity Nail Bed Color Feet Grid Left Foot : [place] Right Foot : [place] ROSALIND DING 06/21/2016 14:49 BAGGAGE AGENT Capillary Refill Feet Grid Left Foot : < 2 seconds Right Foot : < 2 seconds ROSALIND DING 06/21/2016 14:49 BAGGAGE AGENT NV Lower Extremity Color Grid Left : [place] Right : [place] ROSALIND DING 06/21/2016 14:49 BAGGAGE AGENT NV Lower Extremity Temperature Grid Left : Warm Right : Warm ROSALIND DING 06/21/2016 14:49 BAGGAGE AGENT Activity Patient Position : High [place], Semi-[place] Activity Status ADL : Complete bedrest Range of Motion LUE : Active Range of Motion RUE : Active Range of Motion LLE : Active Range of Motion RLE : Active ROSALIND DING RN - 06/21/2016 14:49 BAGGAGE AGENT Modified [place] Activity : Moves 2 extremities voluntarily or on command Respiratory : Able to deep breathe and cough freely Circulation : BP +/- 20% of preprocedural level or not unusually high or low Consciousness : Fully awake O2 Saturation : O2 SAT at preprocedural level [place] l Score : 9 ROSALIND DING RN - 06/21/2016 14:49 BAGGAGE AGENT Lázaro Sensory Perception Lázaro : No impairment Moisture Lázaro : Rarely moist Activity Lázaro : Bedfast Mobility Lázaro : Slightly limited Nutrition Lázaro : Excellent Friction and Shear Lázaro : No apparent problem Lázaro Score : 19 ROSALIND DING RN - 06/21/2016 14:49 BAGGAGE AGENT Falls Assessment Patient at Risk for Falls : Yes Patient has increased Fall Injury Risk : Yes ROSALIND DING RN - 06/21/2016 14:49 BAGGAGE AGENT Gabriela II Fall Risk Gender, Male Fall Risk Hendrich : No ROSALIND DING RN - 06/21/2016 14:49 BAGGAGE AGENT Safe Patient Handling Safe Pt Handling Independent : No Safe Pt Handling Supervision/Minimal Assistance : Yes - Unmotorized Equipment Safe Pt Handling Equipment Rec : No Equipment Needed ROSALIND DING RN - 06/21/2016 14:49 BAGGAGE AGENT Education General Patient Education Powergrid Topics : Pain Management, Plan of care, Postoperative instructions, Use of pain scale(s) Individuals Taught : Patient, Spouse, Parent Barriers to Learning : None evident Teaching Method : Demonstration, Explanation, Printed materials Teaching Evaluation : Able to teach back, Verbalizes understanding ROSALIND DING RN - 06/21/2016 14:49 BAGGAGE AGENT [facility] Document Id: [id number] BAGGAGE AGENT!104 AGE AGENT Miscellaneous - Rosalind Ding R.N. - 06/21/2016 2:45 PM CST Adult Postprocedure Assessment Adult Postprocedure Assessment Entered On: 06/21/2016 14:45 BAGGAGE AGENT Performed On: 06/21/2016 14:45 BAGGAGE AGENT by ROSALIND DING RN General Pain Symptoms : Yes ROSALIND DING RN - 06/21/2016 14:45 BAGGAGE AGENT Pain Scale Pain Scale Verbal 0-10 : Open ROSALIND DING RN - 06/21/2016 14:45 BAGGAGE AGENT Pain Pain Assessment Grid Pain 1 Location : Buttock Intensity : 3 ROSALIND DING RN - 06/21/2016 14:45 BAGGAGE AGENT Source: [employer] Document Id: [id number] BAGGAGE AGENT!10 AGE AGENT Miscellмарина - Rosalind Ding R.N. - 06/21/2016 2:30 PM CST Adult Postprocedure Assessment Adult Postprocedure Assessment Entered On: 06/21/2016 14:37 BAGGAGE AGENT Performed On: 06/21/2016 14:30 BAGGAGE AGENT by ROSALIND DING RN General Pain Symptoms : Yes ROSALIND DING RN - 06/21/2016 14:36 BAGGAGE AGENT Pain Scale Pain Scale Verbal 0-10 : Open ROSALIND DING RN - 06/21/2016 14:36 BAGGAGE AGENT Pain Pain Assessment Grid Pain 1 Location : Buttock Intensity : 7 ROSALIND DING RN - 06/21/2016 14:36 BAGGAGE AGENT Source: [employer] Document Id: [id number] BAGGAGE AGENT!10 AGE AGENT Miscellaneous - Rosalind Ding R.N. - 06/21/2016 2:15 PM CST Adult Postprocedure Assessment Adult Postprocedure Assessment Entered On: 06/21/2016 14:15 BAGGAGE AGENT Performed On: 06/21/2016 14:15 BAGGAGE AGENT by ROSALIND DING RN General Pain Symptoms : Yes ROSALIND DING RN - 06/21/2016 14:15 BAGGAGE AGENT Pain Scale Pain Scale Verbal 0-10 : Open ROSALIND DING RN - 06/21/2016 14:15 BAGGAGE AGENT Pain Pain Assessment Grid Pain 1 Location : Buttock Intensity : 6 ROSALIND DING RN - 06/21/2016 14:15 BAGGAGE AGENT Source: [facility] [employer] Document Id: [id number] BAGGAGE AGENT!10 AGE AGENT Miscellaneous - Rosalind Ding R.N. - 06/21/2016 2:00 PM CST Adult Postprocedure Assessment Adult Postprocedure Assessment Entered On: 06/21/2016 14:02 BAGGAGE AGENT Performed On: 06/21/2016 14:00 BAGGAGE AGENT by ROSALIND DING RN General Pain Symptoms : Yes ROSALIND DING RN - 06/21/2016 14:01 BAGGAGE AGENT Pain Scale Pain Scale Verbal 0-10 : Open ROSALIND DING RN - 06/21/2016 14:01 BAGGAGE AGENT Pain Pain Assessment Grid Pain 1 Location : Buttock Intensity : 7 ROSALIND DING RN - 06/21/2016 14:01 BAGGAGE AGENT [facility] Document Id: [id number] BAGGAGE AGENT!10 AGE AGENT Miscellмарина - Rosalind Ding R.N. - 06/21/2016 1:45 PM CST Adult Postprocedure Assessment Adult Postprocedure Assessment Entered On: 06/21/2016 13:55 BAGGAGE AGENT Performed On: 06/21/2016 13:45 BAGGAGE AGENT by ROSALIND DING RN General Pain Symptoms : Yes ROSALIND DING RN - 06/21/2016 13:55 BAGGAGE AGENT Pain Scale Pain Scale Verbal 0-10 : Open ROSALIND DING RN - 06/21/2016 13:55 BAGGAGE AGENT Pain Pain Assessment Grid Pain 1 Location : Buttock Intensity : 7 ROSALIND DING RN - 06/21/2016 13:55 BAGGAGE AGENT Source: [facility] [employer] Document Id: [id number] BAGGAGE AGENT!10 AGE AGENT Miscellaneous - Rosalind Ding R.N. - 06/21/2016 1:30 PM CST Adult Postprocedure Assessment Adult Postprocedure Assessment Entered On: 06/21/2016 13:33 BAGGAGE AGENT Performed On: 06/21/2016 13:30 BAGGAGE AGENT by ROSALIND DING RN General Pain Symptoms : Yes ROSALIND DING RN - 06/21/2016 13:33 BAGGAGE AGENT Pain Scale Pain Scale Verbal 0-10 : Open ROSALIND DING RN - 06/21/2016 13:33 BAGGAGE AGENT Pain Pain Assessment Grid Pain 1 Location : Buttock Intensity : 7 ROSALIND DING RN - 06/21/2016 13:33 BAGGAGE AGENT [facility] Document Id: [id number] BAGGAGE AGENT!12 AGE AGENT Miscellaneous - Luca Lawler R.N. - 06/21/2016 1:15 PM CST Adult Postprocedure Assessment Adult Postprocedure Assessment Entered On: 06/21/2016 13:44 BAGGAGE AGENT Performed On: 06/21/2016 13:15 BAGGAGE AGENT by LUCA LAWLER RN Vital Signs Oxygen Therapy : Room air LUCA LAWLER RN - 06/21/2016 13:42 BAGGAGE AGENT General Level of Consciousness : Alert Orientation : Oriented x 3 Pain Symptoms : Yes LUCA LAWLER RN - 06/21/2016 13:42 BAGGAGE AGENT Pain Scale Pain Scale Verbal 0-10 : Open LUCA LAWLER RN - 06/21/2016 13:42 BAGGAGE AGENT Pain Pain Assessment Grid Pain 1 Location : Buttock Intensity : 7 LUCA LAWLER RN - 06/21/2016 13:42 BAGGAGE AGENT Peripheral IV Peripheral IV Assess/Intervention Grid Peripheral IV #1 IV Site : Hand Laterality : Left Catheter Size : 18 LUCA LAWLER RN - 06/21/2016 13:42 BAGGAGE AGENT Modified [place] Activity : Moves 4 extremities voluntarily or on command Respiratory : Able to deep breathe and cough freely Circulation : BP +/- 20% of preprocedural level or not unusually high or low Consciousness : Fully awake O2 Saturation : O2 SAT at preprocedural level [place] l Score : 10 LUCA LAWLER RN - 06/21/2016 13:42 BAGGAGE AGENT PARSAP Activity Status : Moves 4 extremities voluntarily or on command Dressing : Dry and clean Respiratory Component : Able to deep breathe and cough freely Pain : Severe pain requires parenteral medication Circulation Component : BP 20% of preanesthetic level Ambulation : Able to stand up and walk straight Consciousness : Fully awake Fasting and Feeding : Able to drink fluids Oxygen Saturation - Sedation : Can maintain > 92% on room air Urine Output, PARSAP : Not assessed PARSAP Score : 18 LUCA LAWLER RN - 06/21/2016 13:42 BAGGAGE AGENT Source: [employer] Document Id: [id number] BAGGAGE AGENT!41 AGE AGENT Miscellaneous - Hernesto Waldrop R.N. - 06/21/2016 1:01 PM BAGGAGE AGENT Adult Postprocedure Assessment Adult Postprocedure Assessment Entered On: 06/21/2016 13:02 BAGGAGE AGENT Performed On: 06/21/2016 13:01 BAGGAGE AGENT by HERNESTO WALDROP RN General Level of Consciousness : Alert Orientation : Oriented x 3 Skin Color : Ethan Skin Description : Dry Skin Temperature : Warm Pain Symptoms : Yes HERNESTO WALDROP RN - 06/21/2016 13:01 BAGGAGE AGENT Pain Scale Pain Scale Verbal 0-10 : Open HERNESTO WALDROP RN - 06/21/2016 13:01 BAGGAGE AGENT Pain Pain Assessment Grid Pain 1 Location : Buttock Intensity : 7 Time Pattern : Constant Quality : Sharp Pain Radiation : Yes Interventions : MD Ty notified, Medications, Repositioning, Rest HERNESTO WALDROP RN - 06/21/2016 13:09 BAGGAGE AGENT Cardiac Rhythm Techs Monitoring Lead : II, V1/MCL1 Atrial Rhythm : Regular Ventricular Rhythm : Regular Cardiac Rhythm : Sinus rhythm HERNESTO WALDROP RN - 06/21/2016 13:09 BAGGAGE AGENT Respiratory Respiratory Patient Stated Symptoms : None Respirations : Unlabored, Tachypnea Respiratory Pattern : Regular HERNESTO WALDROP RN - 06/21/2016 13:09 BAGGAGE AGENT Integumentary Skin Turgor : Elastic Skin Integrity : Not intact Skin Color : [place] Skin Description : Normal Skin Temperature : Warm HERNESTO WALDROP RN - 06/21/2016 13:09 BAGGAGE AGENT Incision/Wound Incision/Wound Care Grid Activity : Assessed Dressing HERNESTO WALDROP RN - 06/21/2016 13:09 BAGGAGE AGENT Peripheral IV Peripheral IV Assess/Intervention Grid Peripheral IV #1 IV Activity : Assessment IV Site : Hand Laterality : Left Catheter Size : 18 Site Condition : No complications HERNESTO WALDROP - 06/21/2016 13:09 BAGGAGE AGENT Activity Patient Position : Lying on right side HERNESTO WALDROP - 06/21/2016 13:09 BAGGAGE AGENT Modified [place] Activity : Moves 4 extremities voluntarily or on command Respiratory : Able to deep breathe and cough freely Circulation : BP +/- 20% of preprocedural level or not unusually high or low Consciousness : Fully awake O2 Saturation : O2 SAT at preprocedural level [place] l Score : 10 HERNESTO WALDROP RN - 06/21/2016 13:09 BAGGAGE AGENT [facility] Document Id: [id number] BAGGAGE AGENT!57 AGE AGENT documented in this encounter Plan of Treatment Not on filedocumented as of this encounter Visit Diagnoses Not on filedocumented in this encounter
--- OUTSIDE RECORDS SUMMARY | 2022-02-03 23:56 | XMS_ITS | Encounter Summary ---
:1985 Author Organization [facility] Address [address] [place] [id number] Care Team Providers Name Role Phone Elsewhere, Pcp Primary Care Provider Unavailable Reason for Referral Outpatient (Routine) - Authorized Specialty Diagnoses / Procedures Referred By Contact Refer red To Contact Emergency Medicine Diagnoses Otitis Media Acute Left Cerumen Impacted Right Efren Galdamez, C.N.P. [facility] Region [address] [place] [id number] Referral ID Status Reason Start Date Expiration Date Visits V isits Requested Authorized [id number] Authorized 09/24/2021 09/24/2022 1 1 Reason for Visit Reason Comments Nasal Congestion Cough X 24 hours Encounter Details Date Type Department Care Team Description 09/24/2021 Emergency [facility] Efren Galdamez Otiti s Media Acute Left (Primary Dx); Department C.N.P. Cerumen Impacted Right; [address] [place] [address] [place] [address] COVID-19 [place] [id number] [phone] Social History Tobacco Use Types Packs/Day Years Used Date Smoking Tobacco: Every Day Alcohol Use Standard Drinks/Week Comments Yes 0 (1 standard drink = 0.6 oz pure alcoho l) Sex Assigned at Date Recorded Not on file documented as of this encounter Last Filed Vital Signs Vital Sign Reading Time Taken Comments Blood Pressure 109/74 09/24/2021 7:49 AM CDT Pulse 109 09/24/2021 7:49 AM CDT Temperature 36.7 ??C (98.1 ??F) 09/24/2021 7:49 AM CDT Respiratory Rate 18 09/24/2021 7:49 AM CDT Oxygen Saturation 98% 09/24/2021 7:49 AM CDT Inhaled Oxygen Concentration - - Weight 76.2 kg (167 lb 15.9 oz) 09/24/2021 7:55 AM CDT Height - - Body Mass Index 26.37 06/22/2016 10:01 PM ALUMINUM WELDER documented in this encounter Discharge Instructions Discharge InstructionsEfren Galdamez, C.N.P. - 09/24/2021 8:24 AM CDT I suspect your ear infection likely viral cause from the COVID. However, concurrent bacterial infection is a consideration. You will be sent home with cefdinir to treat for ear infection. Your urinalysis reassuring with no evidence of bladder infection. Once you are symptoms free consider follow-up with the ENT in 2-3 weeks. Return if you have worsening ear pain, nausea vomiting that you cannot control, fever, increased work of breathing, or worsening symptoms. AttachmentsThe following attachments cannot be sent through Care Everywhere. COVID-19 (Mauritanian)Earwax Buildup Adult (Mauritanian)Otitis Media Adult [facility]-On[facility] (Mauritanian)documented in this encounter Medications at Time of Discharge Medication Sig Dispensed Refills Start Date End Date docusate sodium Take 1 capsule by 0 06/03/2016 (COLACE) 100 mg mouth 2 (two) times a capsule day. UNABLE TO FIND Apply 1 application 0 06/06/2016 topically 4 (four) times a day as needed. cefdinir (OMNICEF) 300 Take 1 capsule (300 mg 14 capsule 0 0 09/24/2021 10/01/2021 mg capsule total) by mouth 2 (two) times a day before breakfast and dinner for 7 days. documented as of this encounter ED Notes Efren Galdamez, C.N.P. - 09/24/2021 7:58 AM CDT SUBJECTIVE CHIEF COMPLAINT/REASON FOR VISIT Nasal Congestion and Cough (X 24 hours) HISTORY OF PRESENT ILLNESS Silvia May is a 36 y.o. female with history of right ear deafness and ruptured tympanic membrane who presents to the ED concerning for ear pain and URI symptoms. Patient reports since yesterday she developed sinus congestion with generalized body ache, runny nose, and coughing. She reports she was recently exposed to COVID while at work. She reports she is up-to-date on vaccination. She doesendorse having left ear pain. Otherwise no other significant complaint noted. REVIEW OF SYSTEMS Constitutional: Negative for chills and fever. Generalized body ache HENT: Positive for congestion, ear pain and rhinorrhea. Negative for sore throat. Eyes: Negative. Respiratory: Positive for cough. Cardiovascular: Negative. Gastrointestinal: Negative. Psychiatric/Behavioral: Negative. OBJECTIVE Initial Vitals [09/24/21 0749] Temperature Pulse Rate Heart Rate Resp Rate Blood Pressure SpO2 36.7 ??C 109 -- 18 109/74 98 % Pain Score -- PHYSICAL EXAMINATION Constitutional: She appears not lethargic. No distress. HENT: Right Ear: There is impacted cerumen. Left Ear: Tympanic membrane is bulging. Nose: Nose normal. Eyes: Conjunctivae are normal. Cardiovascular: Capillary refill: takes less than 3 seconds, Pulmonary/Chest: Effort normal. Neurological: Alert and oriented to person, place, and time. Skin: Skin is normal color. She is not diaphoretic. Psychiatric: She has a normal mood and affect. ASSESSMENT/PLAN IMPRESSION AND PLAN On exam the patient's left ear, there is a bulging tympanic membrane with effusion noted. No significant erythema. Patient did not exhibit any mobility when as to blow the nose while holding the nose. On exam of the right ear , there is noted cerumen impaction with a plastic object stuck in the cerumen. Patient does not recall how long and does not have any right ear pain. Patient does endorse a history of complete deafness to the right ear with the multiple right ear surgery. She exhibits no mastoid tenderness on palpation bilaterally. Given the surgical history, do feel she would benefit from ENTevaluation of her right ear. Regarding the left ear, will discharge home with cefdinir for treatment. Her covid test came back positive. Plan: Discharge home with amoxicillin for otitis media, referral to ENT for cerumen impaction. Strict return precaution given. DIFFERENTIAL DIAGNOSIS Otitis media, otitis externa, mastoiditis, URI, foreign body, and others considered. I personally reviewed the lab result(s) and my interpretation is abnormal. ED Course as of 09/24/21 0842 WedSeptember 24, 2021 0822 SARS CoV-2, PCR, Rapid, V(!): Detected 0824 After completion of initial assessment of the patient, patient then states that she has been having any urinary frequency for the past week and is requesting urinalysis done. 0842 Bacteria(!): Present On cefdinir Final Diagnoses: as of 09/24/21 0842 Otitis Media Acute Left Cerumen Impacted Right COVID-19 Infection Efren Galdamez, C.N.P. 09/24/21 0839 documented in this encounter Miscellaneous Notes Result Encounter Note - Marce Kan REmekaN. - 09/24/2021 8:48 AM CDT Your patient has tested positive for SARS-CoV-2, the virus that causes COVID-19. Every patient that tests positive receives initial guidance sent via an online letter, which is sent by mail or the patient portal depending on patient preferences. ACTION NEEDED: Please update the patient's problem list and medication list to ensure an accurate and timely evaluation for COVID-19 treatments, including various medications and Remote Patient Monitoring (RPM). If eligible for COVID-19 treatments or RPM, your patient will be contacted by a designated team of nurses to coordinate the care. For questions, contact the [facility] Team ([facility]): Pager: [phone] In basket: P RST/[facility] COVID-19 POSITIVE Covid Care e-consult NOTE: At the time of testing, patients are instructed to obtain the result by calling the [employer] result line or by checking their online services account. documented in this encounter Plan of Treatment Scheduled Referrals Name Type Priority Associated Order Schedule Diagnoses POST ED VISIT Outpatient Routine Otitis Media Lef t Expected: Otorhinolaryngology Referral Cerumen Impacted 01/2022, Right Expires: 12/25/2022 documented as of this encounter Procedures Procedure Name Priority Date/Time Associated Comments Diagnosis TEST, POCT, STAT 09/24/2021 8:27 AM Results for this U (LAB) CDT procedure are i n the results section. URINALYSIS WITH STAT 09/24/2021 8:27 AM Result s for this MICROSCOPIC CDT procedure are i n the results section. IFLU A, B, SARS STAT 09/24/2021 7:50 AM Result s for this COV-2, PCR, RAPID,V CDT procedur e are in the results section. documented in this encounter Results Test, POCT, Urine (lab) (09/24/2021 8:27 AM CDT) P athologist Signature Negative 09/24/2021 [facility] Test, POCT, U 8:35 AM CDT Specimen Anatomical Collection Method Collection Time Receive d Time (Source) Location / / Volume Laterality Urine (Urine, 09/24/2021 8:27 AM 09/25/19 8:27 Midstream) CDT AM CDT Schwartz N Denice C.N.P. LAB POCT ORDERABLES - DEVICE Performing Organization Address City/State/ZIP Code Phon e Number [facility]- [address] [place] [address] [facility] [address] System [place] [address] (ABNORMAL) Urinalysis with Microscopic: Urine, Midstream (09/24/2021 8:27 AM CDT) Analysis Performed At Patho logist Time Signature Source Urine, Urine, 09/24/2021 [facility] Midstream 8:27 AM CDT Clarity Clear Clear 09/24/2021 [facility] 8:35 AM CDT Color Yellow 09/24/2021 [facility] 8:35 AM CDT Comment: ----REFERENCE VALUE---- Colorless Yellow May Blood Negative Negative 09/24/2021 8:35 AM CDT [facility] Nitrite Negative Negative 09/24/2021 8:35 AM CDT [facility] Leukocyte Esterase Negative Negative 09/24/2021 8:35 AM CD T [facility] Protein Negative mg/dL 09/24/2021 8:35 AM CDT [facility] Comment: ----REFERENCE VALUE---- Negative Trace Glucose Negative Negative mg/dL 09/24/2021 8:35 AM CDT CN FL Ketones, QI(U) Negative Negative mg/dL 09/24/2021 8:35 AM C DT [facility] Bilirubin Negative Negative 09/24/2021 8:35 AM CDT [facility] pH 8.5 (A) 5.0 - 8.0 09/24/2021 8:35 AM CDT [facility] Specific [facility] 1.020 1.001 - 1.035 09/24/2021 8:35 AM CDT [facility] Urobilinogen 0.2 0.2 - 1.0 mg/dL 09/24/2021 8:35 AM CD T [facility] White Blood Cells Occ-3 /hpf 09/24/2021 8:42 AM CDT [facility] Comment: ----REFERENCE VALUE---- Males: 0-3 Females: 0-10 Unknown: 0-10 Red Blood Cells Occ-2 0 - 2 /hpf 09/24/2021 8:42 AM CDT [facility] Squamous Cells Occ-3 /hpf 09/24/2021 8:42 AM CDT CN FL Bacteria Present (A) None Seen 09/24/2021 8:42 AM CDT [facility] Specimen Anatomical Collection Method Collection Time Receive d Time (Source) Location / / Volume Laterality Urine (Urine, 09/24/2021 8:27 AM 09/25/19 8:27 Midstream) CDT AM CDT Schwartz N Galdamez C.N.P. LAB URINE ORDERABLES Performing Organization Address City/State/ZIP Code Phon e Number [address] [address] [facility] [place] [address] System [address] (ABNORMAL) Influenza A/B, SARS CoV-2, PCR, Rapid, Varies Symptomatic (09/24/2021 7:50 AM CDT) [facility] Method Time Signature Influenza A, Negative Negative 09/24/2021 [facility] PCR, Rapid, V 8:16 AM CDT Influenza B, Negative Negative 09/24/2021 [facility] PCR, Rapid, V 8:16 AM CDT SARS CoV-2, Detected (A) Undetected 09/24/2021 [facility] PCR, Rapid, V 8:16 AM CDT Comment: A high level of SARS-CoV-2 in the sample may negatively impact the ability of this test to detec t low levels of influenza A/B. Specific testing for infl uenza A/B may be indicated. ----ADDITIONAL INFORMATION---- This RT-PCR test was performed using the Derek SARS-CoV-2 and Influenza A/B Reagent assay from [employer], which has received Emergency Use Authori zation(EUA) by the U.S. Food and Drug Administration . Fact sheets for this Emergency Use Autho rization (EUA) assay can be found at the following link s: For Healthcare Providers: https://www.fda.gov/media/391040/downloa d For Patients: https://www.fda.gov/media/251601/downloa d Infl A/B, SARS CoV-2, PCR, Source Swab, Nasopharynx 09/24/2021 7:53 AM CDT FL Specimen Anatomical Collection Method Collection Time Receive d Time (Source) Location / / Volume Laterality Varies 09/24/2021 7:50 AM 7:53 (Nasopharynx) CDT AM CDT Efren Galdamez C.N.P. LAB MICROBIOLOGY - GENERAL O RDERABLES Performing Organization Address City/State/[facility] Code Phon e Number [phone] [place] [address] [place] [address] System [address] documented in this encounter Visit Diagnoses Diagnosis Otitis Media Acute Left - Primary Cerumen Impacted Right COVID-19 Infection documented in this encounter Additional Health Concerns Infection Onset Date Last Indicated Resolved Time COVID19 Pending 09/24/2021 09/24/2021 09/24/2021 8:16 AM CDT COVID19 09/24/2021 09/24/2021 10/14/2021 5:53 AM CDT documented as of this encounter Care Teams Engraver Letter Relationship Specialty Start Date End Date Elsewhere, Pcp PCP - General 07/02/19 documented as of this encounter
--- OUTSIDE RECORDS SUMMARY | 2022-02-03 23:56 | XMS_ITS | Encounter Summary ---
:1985 Author Organization [facility] Address [address] [place] [address] Care Team Providers Name Role Phone Unavailable Primary Care Provider Unavailable Encounter Details Date Type Department Care Team Description 05/11/2016 Hospital Encounter HX [facility] Griffin Ann M.D. [address] [place], [place] [phone] (Wo rk) Social History Tobacco Use Types Packs/Day Years Used Date Smoking Tobacco: Every Day Sex Assigned at Date Recorded Not on file documented as of this encounter Last Filed Vital Signs Vital Sign Reading Time Taken Comments Blood Pressure 126/79 05/11/2016 12:53 AM SAS DEVELOPER Pulse 98 05/11/2016 12:53 AM SAS DEVELOPER Temperature - - Respiratory Rate 30 05/11/2016 12:53 AM SAS DEVELOPER Oxygen Saturation - - Inhaled Oxygen Concentration - - Weight - - Height - - Body Mass Index - - documented in this encounter Discharge Summaries Devi Raza R.N. - 05/11/2016 2:41 AM CST ED Discharge Instructions [facility] [address] [place] [address] Name: SILVIA VASQUEZ Date of : 1985 12:00 AM Visit Date: 05/11/2016 12:51 AM [facility] Number: [id number] Address: [address] [place] [phone] Primary Care Provider: SOFIE VÁZQUEZ MD IMPORTANT: [facility] in [place] would like to thank you for allowing us to assist youwith your healthcare needs. The following includes patient education materials and information regarding your injury/illness. Diagnosis: Panic Disorder Without Agoraphobia Follow-Up Instructions: With: Address: When: Return to Emergency Department Within As Needed Comments: If symptoms worsen.at anytime With: Address: When: SOFIE VÁZQUEZ [address] [place] [phone] Business (1) Within As Needed Your Upcoming Appointments: Date Time Location Provider No Appointments found Patient Education Materials: Hyperventilation Syndrome Hyperventilation Syndrome is a condition in which you lose control of your breathing. You may find yourself breathing too fast and/or too deep. This can be triggered by pain, anxiety and emotional stress. If hyperventilation continues for more than a few minutes, it can lead to a number of frighteningsymptoms, such as: ?? Numbness and tingling of the hands, feet and face ?? Clenching of the fingers or toes ?? Dizziness ?? Feeling like you cannot get enough air ?? Chest pains ?? Fainting or feeling like you are going to faint Once these symptoms begin, it is often hard to stop them because they lead to a cycle of more anxiety and more hyperventilation. It is important to understand that this is not a life-threatening condition and it will pass once you are able to relax. Relaxation and stress management methods can be learned and practiced in advance. These can help in the event of a future attack. Home Care: 1) Rest today until feeling back to normal. 2) If symptoms return: ?? Sit or lie down. Remember that what is happening to you is temporary and will pass. ?? Use the relaxation methods you have learned. ?? It is no longer recommended to breathe into a paper bag. Follow Up with your doctor or as directed by our staff if symptoms recur. Get Prompt Medical Attention if any of the following occur: ?? Increasing shortness of breath ?? Fever of 100.0? F (38? C) or higher, or as directed by your healthcare provider ?? Coughing up blood ?? Chest pain that is made worse with each breath ?? Redness, pain or swelling of the leg ?? Ringing in your ears, ?? Severe headache ?? Weakness or fainting ?? [id number] [facility], [address] [place] [address], [place] [address]. All rights reserved. This information is not intended as a substitute for professional medical care. Always follow your healthcare professional's instructions. Panic Attack A panic attack is an extreme fear reaction that comes on for no apparent reason. Symptoms may include pounding or racing heartbeat, shortness of breath, dizziness, weakness and sweating. There is usually a fear that something terrible will happen or that you may . The attack may last a few minutes up to a few hours. Between attacks things will seem quite normal. This condition has a psychological cause and can be treated with the help of a therapist or psychiatrist. Medication is often used and can be very helpful for this problem. Home Care: ?? Try to identify the sources of stress in your life. It may not be obvious! These may include: ?? Daily hassles of life which pile up (traffic jams, missed appointments, car troubles, etc.). ?? Major life changes, both good (new baby, job promotion) and bad (loss of job, loss of loved one). ?? Overload: feeling that you have too many responsibilities and can't take care of everything at once. ?? Helplessness: feeling like your problems are too much for you to handle. ?? Notice how your body reacts to stress. Learn to listen to your body signals so that you can take action before the stress becomes severe. ?? When possible, AVOID or REDUCE THE CAUSE OF STRESS. Avoid hassles, limit the amount of change that is happening in your life at one time or take a break when you feel overloaded. ?? Unfortunately, many stressful situations cannot be avoided. Therefore, it is necessary to LEARN HOW TO MANAGE STRESS better. There are many proven methods that work and will reduce your anxiety. These include simple things like exercise, good nutrition and adequate rest. Also, there are certain techniques that are helpful: relaxation and breathing exercises, visualization, biofeedback, meditation or simply taking some time-out to clear your mind. For more information about this, consult your doctor or go to a local bookstore and review the many books and tapes available on this subject. Follow Up with your doctor or a therapist as advised. Get Prompt Medical Attention if any of the following occur: ?? Worsening of your symptoms to the point of feeling [id number] ?? A change in the type of pain: if it feels different, becomes more severe, lasts longer, or beginsto spread into your shoulder, arm, neck, jaw or back ?? Shortness of breath or increased pain with breathing ?? Increasing feeling of weakness or dizziness ?? Fainting ?? Cough with dark colored sputum (phlegm) or blood ?? Fever of 100.4?F (38?C) or higher, or as directed by your healthcare provider ?? Swelling, pain or redness in one leg ?? [phone] [facility], [address] [place] [address]. All rights reserved. This information is not [...] if you dont have one. Go to [email or web address] and click on Create Your Account. Then, follow the directions to complete the online form. Youll be asked for your [facility] number which you can find at the top of this document. ED Tests and Procedures: Order Status Urine Drug Screen Medical Completed Discharge Prescriptions & Home Medications: Medication/Strength Dose Route Frequency Indications/Special Instructions/Comments/Notes phentermine (phentermine 37.5 mg oral capsule) 37.5 [...] arrange a ride home with a responsible republican. LO Ward KRISTINA LYNN , or responsible republican have received this information and my questions [...] arrange a ride home with a responsible republican. LO Ward KRISTINA LYNN , or responsible republican have received this information and my questions have been answered. I have discussed any challenges I see with this plan with the nurse or physician. Patient Signature or Responsible Republican/Relationship Date Time Provider Signature Date Time Source: [facility] Mar[employer]iss Wind PowerCHART Document Id: [id number] DEVELOPER Devi Raza R.N. - 05/11/2016 2:41 AM CST ED Depart Summary [facility] Emergency Department / Urgent Care Clinical Discharge Summary PERSON INFORMATION Name SILVIA VASQUEZ Age 30 Years 1985 12:00 AM Sex Female Language Liberian PCP SOFIE VÁZQUEZ MD Marital Status Visit Id Visit Reason Anxiety reaction; sob Specialty Enc Type Emergency Med Service Emergency Medicine Referred by Track Group [facility] ED/UC Discharge 05/11/2016 2:00 AM Tracking Id [id number] Checkout 05/11/2016 2:00 AM Checkin 05/11/2016 12:51 AM Acuity 3 -Urgent Dispo Type * Discharged to Home or Self Care Arrival 05/11/2016 12:51 AM Reg Status Complete LOS 000 01:09 Address: [address] [place] [phone] Comment: PROVIDER INFORMATION Provider Role Provider Contact Time DEVI RAZA ABSTRACTER Nurse 05/11/16 01:11 BLANCHE DAVILA MD ED Provider 05/11/16 01:52 DIAGNOSIS Panic Disorder Without Agoraphobia Comment: PATIENT EDUCATION INFORMATION Instructions: HYPERVENTILATION SYNDROME; PANIC ATTACK Follow up: With: Address: When: Return to Emergency Department Within As Needed Comments: If symptoms worsen.at anytime With: Address: When: SOFIE VÁZQUEZ [address] [place] [phone] Business (1) Within As Needed Source: [facility] [employer] PowerCHART Document Id: [id number] DEVELOPER documented in this encounter ED Notes Blanche Davila M.D. - 05/11/2016 4:09 AM CST Anxiety reaction Patient: SILVIA VASQUEZ Age: 30 years Sex: Female : 1985 Author: BLANCHE DAVILA MD Attachments: None Basic Information Additional information: Chief Complaint from Nursing Triage Note : Chief Complaint Description 05/11/2016 1:00 SAS DEVELOPER Chief Complaint Description Pt arrives via ems hyperventilating. Pt has drank this evening. She has a hx of anxiety but states it only happens when she is drinking. . History of Present Illness The patient presents with anxiety, agitation and RECENTLY USED ETOH THEN BECAME ANXIOUS & BREATHING RAPIDLY. The onset was just prior to arrival. The course/duration of symptoms is improving. Character of symptoms depressed, anxious agitated, denies suicidal thoughts. The degree of symptoms is moderate. Self injury: none. The exacerbating factor is none. The relieving factor is none. Risk factorsconsist of none. Prior episodes: occasional. Therapy today: none. Associated symptoms: none. Additional history: none. Review of Systems Constitutional symptoms: Negative except as documented in HPI. Skin symptoms: Negative except as documented in HPI. Eye symptoms: Negative except as documented in HPI. ENMT symptoms: Negative except as documented in HPI. Respiratory symptoms: Negative except as documented in HPI and RAPID BREATHING. Cardiovascular symptoms: Negative except as documented in HPI. Gastrointestinal symptoms: Negative except as documented in HPI. Musculoskeletal symptoms: Negative except as documented in HPI. Neurologic symptoms: Dizziness, numbness and tingling. Psychiatric symptoms: Anxiety and substance abuse. Additional review of systems information: All other systems reviewed and otherwise negative. Health Status Allergies: Allergic Reactions (Selected) NKA. Medications: (Selected) Prescriptions Prescribed phentermine 37.5 mg oral capsule: 37.5 mg, 1 cap(s), PO, Daily, 30 cap(s), 1 Refill(s). Immunizations: Include Immunizations Previous Adult TD: Dose #1 () 12/31/1997 CDT. Polio: Dose #1 () 1985 SAS DEVELOPER, Dose #2 () 1985 CDT, Dose #3 () 11/17/1988 CDT. influenza virus vaccine: Ad hoc dose () 03/01/2009 CDT. tetanus/diphth/pertuss (Tdap) adult/adol: Ad hoc dose (Tdapadult) 11/01/2013 CDT. MMR: Dose #1 () 11/17/1988 CDT, Dose #2 () 01/08/1999 CDT. DTaP: Dose #1 () 1985 SAS DEVELOPER, Dose #2 () 1985 CDT, Dose #3 () 1985 CDT, Dose #4 () 11/17/1988 CDT. Hib: Dose #1 () 01/13/1989 CDT. influenza virus vaccine, H1N1, live: Ad hoc dose () 03/01/2009 CDT. Future No future immunizations have been selected or recorded. . Menstrual history: Per nurse's notes. Past Medical/ Family/ Social History Surgical history: Esophagogastroduodenoscopy ([id number]) on 08/12/2015 at 30 Years. Upper GI endoscopy ([id number]) on 08/12/2015 at 30 Years. Other Manually [...] PowerChart. Cytopathology, slides, cervical or vaginal (the [place] System); manual screening under physician supervision.. ([id number]) in the week of 03/10/2004 at 18 Years. Comments: 04/18/2010 21:45 - CARMEN MORALES Hx: [id number] - LAB-CYTOPATH, SM,D/V,TDS<3SM TECH 03/21/2013 17:41 - Contributor source changed to PowerChart.. Family history: Not significant. Social history: Reviewed as documented in chart. Problem list: All Problems (Selected) Disease Gastroesophageal Reflux (GERD ERMELINDA) / K21.9 / Confirmed. Physical Examination Vital Signs: Vital Signs 05/11/2016 0:53 SAS DEVELOPER Temperature Core 36.8 DegC Peripheral Pulse Rate 98 /min Respiratory Rate 30 /min HI SpO2 94 % Systolic Blood Pressure 126 mmHg Diastolic Blood Pressure 79 mmHg BP Location Right upper , per nurse's notes. General: No acute distress. Head: Normocephalic. Neck: Supple and trachea midline. Eye: Pupils are equal, round and reactive to light and normal conjunctiva. Ears, nose, mouth and throat: Oral mucosa moist. Cardiovascular: Regular rate and rhythm, Normal peripheral perfusion and No edema. Respiratory: Lungs are clear to auscultation, respirations are non-labored, breath sounds are equal and Symmetrical chest wall expansion. Chest wall: No tenderness. Back: Nontender. Musculoskeletal: Normal ROM. normal strength. no tenderness. no swelling. no deformity. Gastrointestinal: Soft, Nontender and Non distended. Genitourinary: No tenderness. Neurological: Alert and oriented to person, place, time, and situation, No focal neurological deficit observed, CN II-XII intact, normal sensory observed, normal motor observed, normal speech observed and normal coordination observed. Lymphatics: No lymphadenopathy. Psychiatric: Cooperative. Medical Decision Making Differential Diagnosis:Anxiety, depression, alcohol intoxication. Documents reviewed:Emergency department nurses' notes. Results review:All Results 05/11/2016 2:41 SAS DEVELOPER ED Discharge Instructions ED Discharge Instructions 05/11/2016 2:41 SAS DEVELOPER ED Depart Summary ED Depart Summary 05/11/2016 2:00 SAS DEVELOPER Valuables/Belongings - Text ED Disposition Summary - Text ED Treatments and Procedures - Text ED Pain Assessment - Text 05/11/2016 1:57 SAS DEVELOPER School or Work Excuse Letter 05/11/2016 1:00 SAS DEVELOPER ED Primary Assessment - Text 05/11/2016 2:00 SAS DEVELOPER Pain Symptoms No Peripheral IV #1 Activity Discontinue Peripheral IV #1 IV Removal Catheter intact, Hemostasis within expected timeframe Peripheral IV #1 Date of Insertion 05/11/2016 Peripheral IV #1 Catheter Type Over the needle Peripheral IV #1 Catheter Size/Length 20 Peripheral IV #1 Site Antecubital Peripheral IV #1 Laterality Left Peripheral IV #1 Discontinued Date 05/11/2016 Accompanied by Spouse Belongings Sent Home With pt Mode of Discharge Ambulatory Transportation Private vehicle Discharge From ED With Home Med List Patient Status at Discharge from ED Improved ED Disposition Summary Form ED Disposition Summary Form ED Pain Assessment Form ED Pain Assessment Form ED Treatments and Procedures Form ED Treatments and Procedures Form Valuables/Belongings Form Valuables/Belongings Form 05/11/2016 1:35 SAS DEVELOPER Drug Scrn Comment See Comment U Tricyclic Scr Negative U THC Scrn Positive U Oxycodone Scrn Negative U Opiate Scrn Negative U Methamp Scr Negative U Methadone Negative U Cocaine Scrn Negative U Benzodia Scrn Negative U Barbit Scrn Negative U Amphet Scrn Positive U Phencyclidine Negative U Propoxyphene Scrn Negative U Buprenorphine Scrn Negative 05/11/2016 1:20 SAS DEVELOPER LORazepam 0.5 mg mg 05/11/2016 1:00 SAS DEVELOPER Pain Symptoms No Distress None Heart Rhythm Regular Respirations Gasping, Labored, Tachypnea Respiratory Patient Stated Symptoms Shortness of breath Respiratory Pattern Regular Respiratory Note pt is hyperventilating, a non rebreather mask not connected to oxygen is being used at this time. Pt states she is sob Left Upper Lobe Breath Sounds Clear Right Upper Lobe Breath Sounds Clear Right Middle Lobe Breath Sounds Clear Left Lower Lobe Breath Sounds Clear Right Lower Lobe Breath Sounds Clear Airway Patent Status Patient denies Are you ? No Skin Color Normal for ethnicity Skin Temperature Warm Skin Description Dry Peripheral IV #1 Activity Start Peripheral IV #1 Date of Insertion 05/11/2016 Peripheral IV #1 Number of Attempts 1 Peripheral IV #1 Catheter Type Over the needle Peripheral IV #1 Catheter Size/Length 20 Peripheral IV #1 Site Antecubital Peripheral IV #1 Laterality Left Neuro Patient Stated Symptoms Dizziness, Tingling Characteristics of Speech Clear Level of Consciousness Alert Last Well Time Known Not applicable Affect/Behavior Anxious Orientation Oriented x 3 Domestic Abuse Concerns None Nutrition ED Adequate Tracking Acuity 3 -Urgent Tracking Group [facility] ED/ Standard Safety Bed in low position, Call device within reach, ID band check, Wheels locked, Other: at bedside Tobacco Use/Currently Using Yes Tobacco Use/Advised to Quit No Exposure to Tobacco Smoke Patient smokes, Other: occ alcohol Tobacco Use/Last 30 Days Yes Tobacco Use/Last 12 months Yes Alcohol Use Grid Alcohol Use Grid Recreational Drug Use Grid Recreational Drug Use Grid Smoking Status Current every day smoker Chief Complaint Description Pt arrives via ems hyperventilating. Pt has drank this evening. She hasa hx of anxiety but states it only happens when she is drinking. Mode of Arrival ED Ambulance Track Medical Languages Liberian Treatments Prior to Arrival None Is Patient Female and 13-50 no hysterect Yes Behavioral Health Screen/Safety Assmt No Respiratory Detailed Assessment Yes Tobacco Type Cigarettes: Less than 20 per day ED Primary Assessment Form ED Primary Assessment Form 05/11/2016 0:53 SAS DEVELOPER Temperature Core 36.8 DegC Peripheral Pulse Rate 98 /min Respiratory Rate 30 /min HI SpO2 94 % Systolic Blood Pressure 126 mmHg Diastolic Blood Pressure 79 mmHg BP Location Right upper Oxygen Therapy Room air Vital Signs Form Vital Signs Form 05/11/2016 0:52 SAS DEVELOPER Is Patient Female and 13-50 no hysterect Yes . Impression and Plan Diagnosis PANIC ATTACK HYPERVENTILATION SYNDROME ETOH INTOXICATION( CLINICAL ASSESSMENT) Plan Condition: Improved. Disposition: Discharged: to home. Patient was given the following educational materials: HYPERVENTILATION SYNDROME, PANIC ATTACK. Follow up with: Return to Emergency Department Within As Needed If symptoms worsen.at anytime; SOFIE VÁZQUEZ Within As Needed. Counseled: Patient, Regarding diagnostic results, Regarding treatment plan, Regarding prescription, patient indicated understanding of instructions, not family Electronically Signed By: BLANCHE DAVILA MD On: 05/11/2016 04:16 AM Source: [facility] POWERCHART Document Id: [id number] DEVELOPER Devi Raza REmekaN. - 05/11/2016 2:00 AM CST ED Treatments and Procedures ED Treatments and Procedures Entered On: 05/11/2016 2:40 SAS DEVELOPER Performed On: 05/11/2016 2:00 SAS DEVELOPER by DEVI RAZA RN Peripheral IV Peripheral IV Assess/Intervention Grid Peripheral IV #1 IV Activity : Discontinue Removal : Catheter intact, Hemostasis within expected timeframe Date of Insertion : 05/11/2016 SAS DEVELOPER Discontinued Date : 05/11/2016 SAS DEVELOPER IV Site : Antecubital Laterality : Left Catheter Size : 20 Catheter Type : Over the needle DEVI RAZA RN - 05/11/2016 2:39 SAS DEVELOPER Source: [facility] [employer] PowerCHART Document Id: [id number] SAS DEVELOPER!12 DEVELOPER Devi Raza R.N. - 05/11/2016 2:00 AM CST ED Disposition Summary ED Disposition Summary Entered On: 05/11/2016 2:40 SAS DEVELOPER Performed On: 05/11/2016 2:00 SAS DEVELOPER by DEVI RAZA RN ED Disposition Summary Present in Room During Exam/Procedure : Spouse Mode of Discharge : Ambulatory Transportation : Private vehicle Discharge From ED With : Home Med List Printed Discharge Instructions Given to Patient : Yes Patient Status at Discharge from ED : Improved DEVI RAZA RN - 05/11/2016 2:40 SAS DEVELOPER [facility] Document Id: [id number] SAS DEVELOPER!8 DEVELOPER Devi Raza R.N. - 05/11/2016 2:00 AM CST ED Pain Assessment ED Pain Assessment Entered On: 05/11/2016 2:40 SAS DEVELOPER Performed On: 05/11/2016 2:00 SAS DEVELOPER by DEVI RAZA RN Pain Assessment Pain Symptoms : No DEVI RAZA RN - 05/11/2016 2:40 SAS DEVELOPER Source: [facility] AgFlow Document Id: [id number] SAS DEVELOPER!3 DEVELOPER Devi Raza R.N. - 05/11/2016 1:00 AM CST ED Primary Assessment Document Has Been Updated ED Primary Assessment Entered On: 05/11/2016 1:43 SAS DEVELOPER Performed On: 05/11/2016 1:00 SAS DEVELOPER by DEVI RAZA RN Reason For Visit (As Of: 05/11/2016 01:43:31 SAS DEVELOPER) Problems(Active) Disease Gastroesophageal Reflux (GERD ERMELINDA) (ICD-10-CM :K21.9 ) Name of Problem: Disease Gastroesophageal Reflux (GERD ERMELINDA) ; Recorder: CHEO KHAN MD; Confirmation: Confirmed ; Classification: Medical ; Code: K21.9 ; Contributor System: PowerChart ; Last Updated: 08/12/2015 10:33 CDT ; Life Cycle Status: Active ; Responsible Provider: CHEO KHAN MD; Vocabulary: ICD-10-CM Diagnoses(Active) Anxiety reaction Date: 05/11/2016 ; Diagnosis Type: Reason For Visit ; Confirmation: Complaint of ; Clinical Dx: Anxiety reaction ; Classification: Medical ; Clinical Service: Emergency medicine ; Code: PNED ; Probability: 0 ; Diagnosis Code: [id number] Triage Chief Complaint Description : Pt arrives via ems hyperventilating. Pt has drank this evening. She has a hx of anxiety but states it only happens when she is drinking. Mode of Arrival ED : Ambulance Track : Medical Languages : Liberian Treatments Prior to Arrival : None Are you ? : No Is Patient Female and 13-50 no hysterectomy : Yes Status : Patient denies DEVI RAZA RN - 05/11/2016 1:33 SAS DEVELOPER Pain Assessment Pain Symptoms : No DEVI RAZA RN - 05/11/2016 1:33 SAS DEVELOPER DENNY DCP GENERIC CODE Tracking Acuity : 3 -Urgent Tracking Group : [facility] ED/ DEVI RAZA RN - 05/11/2016 1:33 SAS DEVELOPER Respiratory Airway : Patent Respirations : Gasping, Labored, Tachypnea Respiratory Pattern : Regular Respiratory Detailed Assessment : Yes DEVI RAZA RN - 05/11/2016 1:33 SAS DEVELOPER Resp Detailed Respiratory Patient Stated Symptoms : Shortness of breath Distress : None DEVI RAZA RN - 05/11/2016 1:33 SAS DEVELOPER Breath Sounds Assessment Grid BRIGIDO : Clear RUL : Clear RML : Clear LLL : Clear RLL : Clear DEVI RAZA RN - 05/11/2016 1:33 SAS DEVELOPER Respiratory Note : pt is hyperventilating, a non rebreather mask not connected to oxygen is being used at this time. Pt states she is sob DEVI RAZA RN - 05/11/2016 1:33 SAS DEVELOPER Cardiovascular Heart Rhythm : Regular Skin Color : Normal for ethnicity Skin Description : Dry Skin Temperature : Warm DEVI RAZA RN - 05/11/2016 1:33 SAS DEVELOPER Neurological Last Well Time Known : Not applicable Level of Consciousness : Alert Orientation : Oriented x 3 Characteristics of Speech : Clear Neuro Patient Stated Symptoms : Dizziness, Tingling DEVI RAZA RN - 05/11/2016 1:33 SAS DEVELOPER ED Psychosocial Affect/Behavior : Anxious Domestic Abuse Concerns : None Behavioral Health Screen/Safety Assmt : No DEVI RAZA RN - 05/11/2016 1:33 SAS DEVELOPER Gastrointestinal Nutrition ED : Adequate DEVI RAAZ RN - 05/11/2016 1:33 SAS DEVELOPER Musculoskeletal Fall Prevention Education Provided : Yes Standard Safety : Bed in low position, Call device within reach, ID band check, Wheels locked, Other: at bedside DEVI RAZA RN - 05/11/2016 1:33 SAS DEVELOPER Social Habits Exposure to Tobacco Smoke : Patient smokes, Other: occ alcohol Smoking Status : Current every day smoker Tobacco 2A : Yes Tobacco Use/Currently Using : Yes Tobacco Use/Last 30 Days : Yes Tobacco Use/Last 12 months : Yes Type : Cigarettes: Less than 20 per day Tobacco Use/Advised to Quit : No DEVI RAZA RN - 05/11/2016 1:33 SAS DEVELOPER Alcohol Use Grid Alcohol Use : Yes Frequency : Occasionally DEVI RAZA RN - 05/11/2016 1:33 SAS DEVELOPER Recreational Drug Use Grid Drug Use : Current Type : Alcohol Route : Oral Frequency : Other: TWICE A MONTH DEVI RAZA RN - 05/11/2016 1:33 SAS DEVELOPER Peripheral IV Peripheral IV Assess/Intervention Grid Peripheral IV #1 IV Activity : Start Number of Attempts : 1 Date of Insertion : 05/11/2016 SAS DEVELOPER IV Site : Antecubital Laterality : Left Catheter Size : 20 Catheter Type : Over the needle DEVI RAZA RN - 05/11/2016 1:33 SAS DEVELOPER Source: [facility] POWERCHART Document Id: [id number] SAS DEVELOPER!80 DEVELOPER documented in this encounter Miscellaneous Notes Miscellaneous - Conversion, Historical Provider Ser - 05/11/2016 2:00 AM SAS DEVELOPER Coding Summary-Paper Based CODING DATE: 05/23/2016 FINAL [facility] STATUS: * Discharged to Home or Self Care PAYOR: Medicaid ADMIT DX: F41.9 Anxiety disorder, unspecified REASON FOR VISIT DX: F41.9 Anxiety disorder, unspecified FINAL DX: PRINCIPAL: F41.0 Panic disorder [episodic paroxysmal anxiety] without agoraphobia SECONDARY: F45.8 Other somatoform disorders F10.129 Alcohol abuse with intoxication, unspecified R42 Dizziness and giddiness F17.210 Nicotine dependence, cigarettes, uncomplicated PROCEDURES DOCTOR NAME DATE NOTE: The code number assigned matches the documented diagnosis and / or procedure in the patient's chart. However, the narrative phrase printed from the coding software may appear abbreviated, or result in slightly different terminology. Coded By: ANTHONY GONZALEZ Date Saved: 05/23/2016 11:15 am Source: [facility] AgFlow Document Id: [id number] Olga - Devi Raza REmekaN. - 05/11/2016 2:00 AM CST Valuables/Belongings Valuables/Belongings Entered On: 05/11/2016 2:40 SAS DEVELOPER Performed On: 05/11/2016 2:00 SAS DEVELOPER by DEVI RAZA RN Valuables/Belongings Belongings Sent Home With : pt DEVI RAZA RN - 05/11/2016 2:40 SAS DEVELOPER Source: [facility] [employer]Flow Document Id: [id number] SAS DEVELOPER!3 DEVELOPER Olga - Devi Raza R.N. - 05/11/2016 1:57 AM CST Work Excuse May 11, 2016 SILVIA VASQUEZ [address] [place] [address] [phone] Dear SILVIA VASQUEZ, You were examined in my office on: 05/11/2016 Reason for work excuse: Medical Illness ( _ ) Yes ( _ ) No Injury ( _ ) Yes ( _ ) No Is excused from all work: ( _ ) Yes ( _ ) No Has work limitations: ( _ ) Yes ( _ ) No As follows: _ Limitations apply until: _ Follow-Up Appointment : ( _ ) Return to Work date: _Pt's spouse, Vlad Vasquez, was in the ED with patient. He will need to take the day off. Please excuse him. Thank you Notes: _ Sincerely, DEVI RAZA Electronic Signature Electronically Signed By: DEVI RAZA RN On: May 11, 2016 This document has images extracted. Source: [facility] [employer] Power[employer]ART Document Id: [id number] Electronically signed by [facility] Cable Assembler [id number] at 10/12/2016 9:55 PM CDT documented in this encounter Plan of Treatment Not on filedocumented as of this encounter Procedures Procedure Name Priority Date/Time Associated Diagnosis Comme nts DRUG SCREEN URINE Routine 05/11/2016 1:35 AM Resu lts for this SAS DEVELOPER procedure are i n the results section. documented in this encounter Results Drug Screen Urine (05/11/2016 1:35 AM SAS DEVELOPER) [facility] Method Time Signature Carboxy-THC Positive POWERCHART Immunoassay Screen Comment: Screening Cutoff Concentrations: 50 ng/mL HX U Phencyclidine Negative POWERCHART Comment: Screening Cutoff Concentrations: 25 ng/mL Cocaine Negative POWERCHART Comment: Screening Cutoff Concentrations: 150 ng/mL Amphetamine/Methamphetamine, Urine Negative POWERCHART Comment: Screening Cutoff Concentrations: 500 ng/mL Opiates Negative POWERCHART Comment: Screening Cutoff Concentrations: 100 ng/mL HXU Amphet Scrn Positive POWERCHART Comment: Screening Cutoff Concentrations: 500 ng/mL HX U Benzodia Scrn Negative POWERCHART Comment: Screening Cutoff Concentrations: 150 ng/mL HXU Tricyclic Scr Negative POWERCHART Comment: Screening Cutoff Concentrations: 300 ng/mL Methadone Immunoassay Screen Negative P OWERCHART Comment: Screening Cutoff Concentrations: 200 ng/mL Barbiturates Negative POWERCHART Comment: Screening Cutoff Concentrations: 200 ng/mL Oxycodone-by LC-MS/MS Negative POWERCHA RT Comment: Screening Cutoff Concentrations: 100 ng/mL Propoxyphene Negative POWERCHART Comment: Screening Cutoff Concentrations: 300 ng/mL Buprenorphine, U Negative POWERCHART Comment: Screening Cutoff Concentrations: 10 ng/mL Comment See Comment POWERCHART Comment: For medical purposes only. Specimen (Source) Anatomical Collection Method Collection Time Re ceived Time Location / / Volume Laterality Urine 05/11/2016 1:35 AM SAS DEVELOPER Blanche Davila M.D. LAB URINE ORDERABLES Performing Organization Address City/State/ZIP Code Phon e Number POWERCHART documented in this encounter Visit Diagnoses Not on filedocumented in this encounter
--- OUTSIDE RECORDS SUMMARY | 2022-02-03 23:56 | XMS_ITS | Encounter Summary ---
:1985 Author Organization [facility] Address [address] [place] [address] Care Team Providers Name Role Phone Unavailable Primary Care Provider Unavailable Encounter Details Date Type Department Care Team Description 06/15/2016 - Hospital Encounter HX [facility] ANDREA CamarenaShannandarshan 06/17/2016 MED/SRG/PD Holland M.D., Ph.D. [address] [place] [address] Social History Tobacco Use Types Packs/Day Years Used Date Smoking Tobacco: Every Day Sex Assigned at Date Recorded Not on file documented as of this encounter Last Filed Vital Signs Vital Sign Reading Time Taken Comments Blood Pressure 118/57 06/17/2016 4:00 AM LIBRARY CIRCULATION TECHNICIAN Pulse 71 06/17/2016 4:00 AM LIBRARY CIRCULATION TECHNICIAN Temperature - - Respiratory Rate 22 06/17/2016 4:00 AM LIBRARY CIRCULATION TECHNICIAN Oxygen Saturation - - Inhaled Oxygen Concentration - - Weight 84.1 kg (185 lb 6.5 oz) 06/17/2016 3:22 AM LIBRARY CIRCULATION TECHNICIAN Height 170 cm (5' 6.93) 06/17/2016 4:00 AM LIBRARY CIRCULATION TECHNICIAN Body Mass Index 29.1 06/17/2016 3:22 AM LIBRARY CIRCULATION TECHNICIAN documented in this encounter Discharge Summaries Janice Colon, R.N. - 06/17/2016 2:18 PM CST Discharge Summary Discharge Summary Entered On: 06/17/2016 14:25 LIBRARY CIRCULATION TECHNICIAN Performed On: 06/17/2016 14:18 LIBRARY CIRCULATION TECHNICIAN by JANICE COLON RN DC Information Discharged to : Home with family care Current Home Treatments : None Home Equipment : None Professional Skilled Services : None Special Services and Community Resources : None Mode of Discharge : Wheelchair Discharge Transportation : Private vehicle Accompanied By : Nurse aide Date/Time of Discharge : 06/17/2016 14:25 LIBRARY CIRCULATION TECHNICIAN Add'l Discharge Comments : discharge instructions were discussed. Pain management was gone over and the importance of still picking up her suppositories to help with pain. JANICE COLON RN - 06/17/2016 14:18 LIBRARY CIRCULATION TECHNICIAN Education General Patient Education Powergrid Topics : Discharge instructions/Medication list, Importance of follow-up visits, Medication dosage, route, scheduling, Printed materials, When to call health care provider Individuals Taught : Patient Barriers to Learning : None evident Teaching Method : Explanation, Printed materials Teaching Evaluation : Verbalizes understanding JANICE COLON RN - 06/17/2016 14:18 LIBRARY CIRCULATION TECHNICIAN Valuables/Belongings Valuables/Belongings Grid Valuables at Bedside Clothes, Patient Valuables : Jacket, Pants, Shirt, Shoes, Undergarments, Other: t-shirt Electronic Devices : Cell phone Jewelry : Bracelet, Wedding band, Other: nose stud Monetary Items : Purse Personal Devices : None JANICE COLON RN - 06/17/2016 14:18 LIBRARY CIRCULATION TECHNICIAN Room Orientation/Facility Policy Reviewed : Yes Belongings Sent Home With : spouse will take purse home Home Medication Disposition : None brought in with patient JANICE COLON RN - 06/17/2016 14:18 LIBRARY CIRCULATION TECHNICIAN Source: iPlingCHART Document Id: [id number] LIBRARY CIRCULATION TECHNICIAN!31 ARY CIRCULATION TECHNICIAN Khalif Camarena M.D., Ph.D. - 06/17/2016 12:00 AM CST GIGS-SUM ADMISSION DATE: 06/15/2016 DISCHARGE DATE: 06/17/2016 ADMITTING DIAGNOSIS Postoperative pain. DISCHARGE DIAGNOSES 1. Postoperative pain, status post 2 column hemorrhoidectomy on June 03, 2016. 2. Nicotine dependence. 3. Gastroesophageal reflux disease. BRIEF HOSPITAL NARRATIVE Mrs. Blanchard is a 31-year-old female who underwent a 2 column hemorrhoidectomy on June 03, 2016.She had persistent postoperative pain that necessitated hospital readmission. Pain was managed with IV and then transitioned to oral and topical agents. Upon discharge her pain was improved. She was demonstrating appropriate wound healing. She was dismissed to home with planned follow up with her surgeon in the outpatient setting. DISMISSAL LOCATION To home with self cares. DISMISSAL CONDITION Stable. DISMISSAL MEDICATIONS Per ER. Khalif Camarena M.D., Ph.D./aos Electronically Signed By: KHALIF CAMARENA MD, PhD On: 07/06/2016 04:44 PM Source: [facility] MHSDOLBEYNONRADSYS Document Id: [id number] ARY CIRCULATION TECHNICIAN Frances Vásquez R.N. - 06/15/2016 8:04 PM CST ED Discharge Instructions [address] [address] Name: RADHA BLANCHARD Date of : 1985 12:00 AM Visit Date: 06/15/2016 5:00 PM [facility] Number: [id number] Address: [address] [place] [phone] Primary Care Provider: SOFIE VÁZQUEZ MD IMPORTANT: [facility] in [place] would like to thank you for allowing us to assist youwith your healthcare needs. The following includes patient education materials and information regarding your injury/illness. Diagnosis: Follow-Up Instructions: Your Upcoming Appointments: Date Time Location Provider 06/19/2016 09:15 AMADO Camarena MD, Khalif Lino Patient Education Materials: Consider Using Patient [...] if you dont have one. Go to [email or web address] and click on Create Your Account. Then, follow the directions to complete the online form. Youll be asked for your [facility] number which you can find at the top of this document. ED Tests and Procedures: Order Status Automated Diff-[address] Abdomen/Pelvis w/ contrast Ordered CBC (includes Auto Differential) Completed Discharge Prescriptions & Home Medications: Medication/Strength How to Take Indications/Special Instructions/Comments/Notes for [...] rectum, twotimes a day x 14 day(s) hydrocortisone topical (hydrocortisone 25 mg rectal suppository) 1 suppository(ies), Per rectum, twotimes a day x 6 day(s) ibuprofen (ibuprofen 200 mg oral tablet) [...] as needed for pain x 7 day(s) oxyCODONE (oxyCODONE 5 mg oral tablet) 2 Tablet(s), Oral, every 4 hours as needed for pain x 5 day(s) Stop Taking the Following Medications: Medication list as of 06-15-16 20:04 Comment: Attention: If you have any medications [...] home with a responsible green party. I, RADHA BLANCHARD , or responsible green party have received this information and my questions have been answered. I have discussed any challenges I see with this plan with the nurse or physician. Patient Signature or Responsible Democrat/Relationship Date Time Provider Signature Date Time Source: Etix Document Id: [id number] ARY CIRCULATION TECHNICIAN Frances Vásquez R.N. - 06/15/2016 8:04 PM CST ED Depart Summary [facility] Emergency Department / Urgent Care Clinical Discharge Summary PERSON INFORMATION Name RADHA BLANCHARD Age 31 Years 1985 12:00 AM Sex Female Language Argentine PCP SOFIE VÁZQUEZ MD Marital Status Visit Id Visit Reason Rectal pain; rectal pain Specialty Enc Type Observation Med Service Emergency Medicine Referred by [facility] ED/UC Discharge Tracking Id [id number] Checkout 06/15/2016 8:04 PM Checkin 06/15/2016 5:00 PM Acuity 4 -Less Urgent Dispo Type Admitted as Inpatient to this Hospital Arrival 06/15/2016 5:00 PM Reg Status Complete LOS 000 03:04 Address: [address] [place] [phone] Comment: PROVIDER INFORMATION Provider Role Provider Contact Time FRANCES VÁSQUEZ STULL INSTALLER Nurse 06/15/16 17:28 MAYLIN MOORE DO ED Provider 06/15/16 17:50 DIAGNOSIS Comment: PATIENT EDUCATION INFORMATION Instructions: Follow up: Source: [employer] Document Id: [id number] ARY CIRCULATION TECHNICIAN documented in this encounter Medications at Time of Discharge Medication Sig Dispensed Refills Start Date End Date docusate sodium Take 1 capsule by mouth 0 017 (COLACE) 100 mg capsule 2 (two) times a day. UNABLE TO FIND Apply 1 application 0 06/06/2016 topically 4 (four) times a day as needed. documented as of this encounter Progress Notes Letha Tafoya - 06/17/2016 2:20 PM CST plant nursery worker consult order for risk of readmission. plant nursery worker visit to patient with and daughter present to discuss discharge plan. Patient plans to return home with and five children (four are in school). 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 Patient's only concern regarding her discharge is the cost of suppositories. Even after insurance, patient is left with a self pay that is difficult to pay. Patient has spoken to surgeon, who has founda cheapter medication. Patient was informed [facility] medication assistance does not include her need. Patient states she will need to wait until Wednesday to obtain medication. Patient declines any further services from psychosocial rehabilitation counselor. Electronically Signed By: LETHA TAFOYA On: 06/17/2016 02:24 PM Source: Etix Document Id: [id number] ARY CIRCULATION TECHNICIAN Khalif Camarena M.D., Ph.D. - 06/17/2016 12:00 AM CST [id number] DAILY PROGRESS NOTE SUBJECTIVE Mrs. Blanchard said that she did not sleep well again last night. She had a bowel movement at around 2 a.m. and had exquisite, poorly controlled pain. It took several hours to get a ball warper tender on her pain andshe has finally started to feel a little bit better. Her pain is currently rated at a 5 which she finds comfortable. She senses that she may need to have another bowel movement this morning. She is noteager to discharge from the hospital today but recognizes that it is probably appropriate. PHYSICAL EXAMINATION GENERAL: Patient lying comfortably in bed, in no acute distress. Awake, alert, and oriented. Appropriately interactive. RECTAL: Perianal examination demonstrates marked improvement in the perianal edema. The residual skin tags have diminished in size. There is no evidence of infection. IMPRESSION/REPORT/PLAN 1. Bleeding internal hemorrhoids, status post 2 column hemorrhoidectomy on June 03, 2016. 2. Postsurgical pain. 3. Nicotine dependence. 4. Gastroesophageal reflux disease. Mrs. Blanchard is doing a little bit better today. She had a bowel movement. She stated it was liquidbut continued to have perianal burning for several hours afterwards. I suspect that she will be ready to discharge later today but I am a little concerned about outpatient pain control. I have recommended that we escalate her oxycodone and Valium to help achieve a better result so that when the patient goes home, she will be able to manage pain on her own. I have also asked the psychosocial rehabilitation counselor to meet with her to discuss financing for her outpatient medications, given her limited financial means. I will plan to see Ms. Blanchard back in about 1 week's time to reassess her symptoms and wounds. DISPOSITION Anticipate hospital dismissal later today. Khalif Camarena M.D., Ph.D./aos Electronically Signed By: KHALIF CAMARENA MD, PhD On: 07/06/2016 04:46 PM Source: [facility] MHSDOLBEYNONRADSYS Document Id: [id number] ARY CIRCULATION TECHNICIAN Khalif Camarena M.D., Ph.D. - 06/16/2016 12:00 AM CST [id number] SUBJECTIVE Mrs. Blanchard reports that she is doing a little bit better today. She did not sleep very well. Her pain is still quite severe but better with the rectal suppositories. She has no nausea or vomiting. She remains afebrile. No acute events overnight. PHYSICAL EXAMINATION GENERAL: Patient appears much better than yesterday, lying quietly in bed in no acute distress. Awake, alert, and oriented. Appropriately interactive. IMPRESSION/REPORT/PLAN 1. Postoperative perianal pain after 2 column hemorrhoidectomy on June 03, 2016. 2. Nicotine dependence. 3. Gastroesophageal reflux disease. Mrs. Blanchard is making some slow progress. She was able to demonstrate improved pain control with use of the hydrocortisone rectal suppository. She states that she did not sleep well last night. TodayI would like to see better control of her pain with the suppositories and oral medications. I would like her to use intravenous medications as little as possible in order to develop a regimen that willwork as she transitions back to home. She will require another 24 hours in the hospital, I believe. DISPOSITION Anticipate hospital dismissal to home tomorrow with self cares. Khalif Camarena M.D., Ph.D./aos Electronically Signed By: KHALIF CAMARENA MD, PhD On: 07/06/2016 04:47 PM Source: [facility] MHSDOLBEYNONRADSYS Document Id: [id number] ARY CIRCULATION TECHNICIAN documented in this encounter H&P Notes Khalif Camarena M.D., Ph.D. - 06/15/2016 8:05 PM CST GIGS-ADM CHIEF COMPLAINT/REASON FOR VISIT Postoperative pain. HISTORY OF PRESENT ILLNESS Ms. Blanchard is a 31-year-old female with a recent history of multicolumn hemorrhoidectomy who presented to the [facility] Emergency Department this evening with complaints of persistent perianal pain. The patient states that she had a large bowel movement yesterday and subsequent profuse bleeding. This has since stopped but now she has a shooting pain along her left buttock adjacent to her sacrum. The patient denies fevers or chills. She has taken oxycodone and Tylenol with no significant pain relief. PHYSICAL EXAMINATION GENERAL: Patient lying in a gurney in no acute distress but she does appear very uncomfortable and somewhat strained. Awake, alert and oriented. RECTUM: Perianal examination is notable for absence of swelling or drainage. There is visible well-healed suture line with a small residual skin tag. The remaining suture lines are also intact and withnotable swelling. There is a more perianal edema than previously on exam. Digital rectal exam was challenging but noted by a small amount of blood in the rectal wall. The patient has a tight anal orifice. IMPRESSION/REPORT/PLAN 1. Bleeding internal hemorrhoids, status post 2 column hemorrhoidectomy on June 03, 2016. 2. Nicotine dependence. 3. Gastroesophageal reflux disease. Ms. Blanchard is a 31-year-old female who presented to the emergency department today with ongoing perianal and sacral pain after undergoing a 2 column hemorrhoidectomy approximately 2 weeks ago. I suspect that the patient's pain is related to her bowel movement with some local trauma, but given the location of symptoms a CT scan of the abdomen and pelvis as well as laboratory studies were performed. The patient did not demonstrate any evidence of an abscess. She is being admitted to the hospital forpain control. This will be aggressive and will include intravenous and oral medications as well as rectal suppositories and topical agents. I anticipate that she will be in the hospital for 1 to 2 days. No deep vein thrombosis prophylaxis is necessary due to low risk. Treatment for chronic medical conditions will be continued during the hospitalization. Khalif Camarena M.D., Ph.D./andria Electronically Signed By: KHALIF CAMARENA MD, PhD On: 07/06/2016 04:30 PM Source: [facility] MHSDOLBEYNONRADSYS Document Id: [id number] ARY CIRCULATION TECHNICIAN documented in this encounter Procedure Notes Ludmila Solitario, R.N. - 06/16/2016 1:20 PM CST Peripheral IV Peripheral IV Entered On: 06/16/2016 13:21 LIBRARY CIRCULATION TECHNICIAN Performed On: 06/16/2016 13:20 LIBRARY CIRCULATION TECHNICIAN by LUDMILA SOLITARIO RN Peripheral IV Peripheral IV Assess/Intervention Grid Peripheral IV #1 Peripheral IV #2 IV Activity : Start Number of Attempts : 1 Date of Insertion : 06/16/2016 LIBRARY CIRCULATION TECHNICIAN IV Site : Forearm Laterality : Left Catheter Size : 22 Catheter Type : Over the needle Site Condition : No complications Drainage Description : None Infiltration Score : 0 Phlebitis Score : 0 Dressing/ Activity : Dry, Intact, Transparent Flow/ Patency : No complications LUDMILA SOLITARIO RN - 06/16/2016 13:20 LIBRARY CIRCULATION TECHNICIAN LUDMILA SOLITARIO RN - 06/16/2016 13:20 LIBRARY CIRCULATION TECHNICIAN Source: [facility] [employer] Document Id: [id number] LIBRARY CIRCULATION TECHNICIAN!18 ARY CIRCULATION TECHNICIAN Ludmila Solitario RDevendra - 06/16/2016 12:51 PM CST Peripheral IV Peripheral IV Entered On: 06/16/2016 12:51 LIBRARY CIRCULATION TECHNICIAN Performed On: 06/16/2016 12:51 LIBRARY CIRCULATION TECHNICIAN by LUDMILA SOLITARIO RN Peripheral IV Peripheral IV Assess/Intervention Grid Peripheral IV #1 Peripheral IV #2 IV Activity : Discontinue Removal : Catheter intact Catheter intact, Hemostasis within expected timeframe Date of Insertion : 06/15/2016 LIBRARY CIRCULATION TECHNICIAN 06/15/2016 LIBRARY CIRCULATION TECHNICIAN Discontinued Date : 06/15/2016 LIBRARY CIRCULATION TECHNICIAN 06/16/2016 LIBRARY CIRCULATION TECHNICIAN IV Site : Antecubital Forearm Laterality : Right Right Catheter Size : 20 20 Catheter Type : Over the needle Comments (Comment: per pt request [LUDMILA SOLITARIO RN - 06/16/2016 12:51 LIBRARY CIRCULATION TECHNICIAN] ) LUDMILA SOLITARIO RN - 06/16/2016 12:51 LIBRARY CIRCULATION TECHNICIAN LUDMILA SOLITARIO RN - 06/16/2016 12:51 LIBRARY CIRCULATION TECHNICIAN Source: [facility] [employer] Document Id: [id number] LIBRARY CIRCULATION TECHNICIAN!19 ARY CIRCULATION TECHNICIAN Toribio Cooley R.N. - 06/15/2016 10:16 PM CST Peripheral IV Peripheral IV Entered On: 06/15/2016 22:19 LIBRARY CIRCULATION TECHNICIAN Performed On: 06/15/2016 22:16 LIBRARY CIRCULATION TECHNICIAN by TORIBIO COOLEY RN Peripheral IV Peripheral IV Assess/Intervention Grid Peripheral IV #1 Peripheral IV #2 IV Activity : Start Removal : Catheter intact Number of Attempts : 1 Date of Insertion : 06/15/2016 LIBRARY CIRCULATION TECHNICIAN 06/15/2016 LIBRARY CIRCULATION TECHNICIAN Discontinued Date : 06/15/2016 LIBRARY CIRCULATION TECHNICIAN IV Site : Antecubital Forearm Laterality : Right Right Catheter Size : 20 20 Catheter Type : Over the needle Site Condition : No complications Drainage Description : None Dressing/ Activity : Dry, Intact, Transparent Flow/ Patency : No complications TORIBIO COOLEY RN - 06/15/2016 22:16 LIBRARY CIRCULATION TECHNICIAN TORIBIO COOLEY RN - 06/15/2016 22:16 LIBRARY CIRCULATION TECHNICIAN Source: [employer] Document Id: [id number] LIBRARY CIRCULATION TECHNICIAN!22 ARY CIRCULATION TECHNICIAN documented in this encounter Nursing Notes Janice Colon R.N. - 06/17/2016 12:30 PM CST PRN Response PRN Response Entered On: 06/17/2016 12:30 LIBRARY CIRCULATION TECHNICIAN Performed On: 06/17/2016 12:30 LIBRARY CIRCULATION TECHNICIAN by JANICE COLON RN Intervention Information: diphenhydrAMINE Performed by JANICE COLON RN on 06/17/2016 10:50:00 LIBRARY CIRCULATION TECHNICIAN diphenhydrAMINE,50mg PO,Itching PRN Medication Effectiveness Evaluation PRN Medication Effective : Yes Post Medication Pain Assessment : N/A JANICE COLON RN - 06/17/2016 12:30 LIBRARY CIRCULATION TECHNICIAN Source: [employer] Document Id: [id number] LIBRARY CIRCULATION TECHNICIAN!4 ARY CIRCULATION TECHNICIAN Janice Colon R.N. - 06/17/2016 9:53 AM CST PRN Response PRN Response Entered On: 06/17/2016 9:53 LIBRARY CIRCULATION TECHNICIAN Performed On: 06/17/2016 9:53 LIBRARY CIRCULATION TECHNICIAN by JANICE COLON RN Intervention Information: diazepam Performed by JANICE COLON RN on 06/17/2016 08:23:00 LIBRARY CIRCULATION TECHNICIAN diazePAM,10mg PO,Spasm PRN Medication Effectiveness Evaluation PRN Medication Effective : Yes Post Medication Pain Assessment : N/A JANICE COLON RN - 06/17/2016 9:53 LIBRARY CIRCULATION TECHNICIAN Source: [facility] [employer] Document Id: [id number] LIBRARY CIRCULATION TECHNICIAN!4 ARY CIRCULATION TECHNICIAN Janice Colon R.N. - 06/17/2016 9:53 AM CST PRN Response PRN Response Entered On: 06/17/2016 9:57 LIBRARY CIRCULATION TECHNICIAN Performed On: 06/17/2016 9:53 LIBRARY CIRCULATION TECHNICIAN by JANICE COLON RN Intervention Information: oxycodone Performed by JANICE COLON RN on 06/17/2016 08:37:00 LIBRARY CIRCULATION TECHNICIAN oxyCODONE,2tab(s) PO,Pain PRN Medication Effectiveness Evaluation PRN Medication Effective : Yes Post Medication Pain Assessment : 3 JANICE COLON RN - 06/17/2016 9:53 LIBRARY CIRCULATION TECHNICIAN Source: [facility] [employer] Document Id: [id number] LIBRARY CIRCULATION TECHNICIAN!4 ARY CIRCULATION TECHNICIAN Harika Jensen R.N. - 06/17/2016 6:22 AM CST PRN Response PRN Response Entered On: 06/17/2016 7:03 LIBRARY CIRCULATION TECHNICIAN Performed On: 06/17/2016 6:22 LIBRARY CIRCULATION TECHNICIAN by HARIKA JENSEN RN Intervention Information: ketorolac Performed by HARIKA JENSEN RN on 06/17/2016 05:52:00 LIBRARY CIRCULATION TECHNICIAN ketorolac,15mg IV Push,Wrist Right,Pain PRN Medication Effectiveness Evaluation PRN Medication Effective : Yes HARIKA JENSEN RN - 06/17/2016 7:03 LIBRARY CIRCULATION TECHNICIAN Source: [facility] [employer] Document Id: [id number] LIBRARY CIRCULATION TECHNICIAN!3 ARY CIRCULATION TECHNICIAN Harika Jensen R.N. - 06/17/2016 4:00 AM CST PRN Response PRN Response Entered On: 06/17/2016 6:04 LIBRARY CIRCULATION TECHNICIAN Performed On: 06/17/2016 4:00 LIBRARY CIRCULATION TECHNICIAN by HARIKA JENSEN RN Intervention Information: diazepam Performed by HARIKA JENSEN RN on 06/17/2016 02:04:00 LIBRARY CIRCULATION TECHNICIAN diazePAM,5mg PO,Spasm PRN Medication Effectiveness Evaluation PRN Medication Effective : Yes HARIKA JENSEN RN - 06/17/2016 6:04 LIBRARY CIRCULATION TECHNICIAN [facility] Document Id: [id number] LIBRARY CIRCULATION TECHNICIAN!3 ARY CIRCULATION TECHNICIAN Harika Jensen R.N. - 06/17/2016 3:04 AM CST PRN Response PRN Response Entered On: 06/17/2016 6:05 LIBRARY CIRCULATION TECHNICIAN Performed On: 06/17/2016 3:04 LIBRARY CIRCULATION TECHNICIAN by HARIKA JENSEN RN Intervention Information: oxycodone Performed by HARIKA JENSEN RN on 06/17/2016 02:04:00 LIBRARY CIRCULATION TECHNICIAN oxyCODONE,10mg PO,Pain PRN Medication Effectiveness Evaluation PRN Medication Effective : No HARIKA JENSEN RN - 06/17/2016 6:05 LIBRARY CIRCULATION TECHNICIAN Source: [employer] Document Id: [id number] LIBRARY CIRCULATION TECHNICIAN!3 ARY CIRCULATION TECHNICIAN Harika Jensen R.N. - 06/17/2016 1:32 AM CST PRN Response PRN Response Entered On: 06/17/2016 1:46 LIBRARY CIRCULATION TECHNICIAN Performed On: 06/17/2016 1:32 LIBRARY CIRCULATION TECHNICIAN by HARIKA JENSEN RN Intervention Information: hydromorphone Performed by KATYA HARVEY RN on 06/17/2016 01:02:00 LIBRARY CIRCULATION TECHNICIAN HYDROmorphone,0.5mg IV Push,Forearm Left Lower,Pain PRN Medication Effectiveness Evaluation PRN Medication Effective : No HARKIA JENSEN RN - 06/17/2016 1:46 LIBRARY CIRCULATION TECHNICIAN Source: [facility] [employer] Document Id: [id number] LIBRARY CIRCULATION TECHNICIAN!3 ARY CIRCULATION TECHNICIAN Harika Jensen R.N. - 06/16/2016 11:18 PM CST PRN Response PRN Response Entered On: 06/17/2016 1:48 LIBRARY CIRCULATION TECHNICIAN Performed On: 06/16/2016 23:18 LIBRARY CIRCULATION TECHNICIAN by HARIKA JENSEN RN Intervention Information: zolpidem Performed by HARIKA JENSEN RN on 06/16/2016 22:18:00 LIBRARY CIRCULATION TECHNICIAN zolpidem,5mg PO,Insomnia PRN Medication Effectiveness Evaluation PRN Medication Effective : No HARIKA JENSEN RN - 06/17/2016 1:48 LIBRARY CIRCULATION TECHNICIAN Source: [facility] [employer] Document Id: [id number] LIBRARY CIRCULATION TECHNICIAN!3 ARY CIRCULATION TECHNICIAN Harika Jensen R.N. - 06/16/2016 10:48 PM CST PRN Response PRN Response Entered On: 06/17/2016 1:45 LIBRARY CIRCULATION TECHNICIAN Performed On: 06/16/2016 22:48 LIBRARY CIRCULATION TECHNICIAN by HARIKA JENSEN RN Intervention Information: ketorolac Performed by HARIKA JENSEN RN on 06/16/2016 22:18:00 LIBRARY CIRCULATION TECHNICIAN ketorolac,15mg IV Push,Wrist Left,Pain PRN Medication Effectiveness Evaluation PRN Medication Effective : No HARIKA JENSEN RN - 06/17/2016 1:45 LIBRARY CIRCULATION TECHNICIAN Source: [facility] [employer] Document Id: [id number] LIBRARY CIRCULATION TECHNICIAN!3 ARY CIRCULATION TECHNICIAN Harika Jensen R.N. - 06/16/2016 10:02 PM CST PRN Response PRN Response Entered On: 06/17/2016 1:48 LIBRARY CIRCULATION TECHNICIAN Performed On: 06/16/2016 22:02 LIBRARY CIRCULATION TECHNICIAN by HARIKA JENSEN RN Intervention Information: oxycodone Performed by ROSALIND DING RN on 06/16/2016 21:02:20 LIBRARY CIRCULATION TECHNICIAN oxyCODONE,10mg PO,Pain PRN Medication Effectiveness Evaluation PRN Medication Effective : No HARIKA JENSEN RN - 06/17/2016 1:48 LIBRARY CIRCULATION TECHNICIAN Source: [employer] Document Id: [id number] LIBRARY CIRCULATION TECHNICIAN!3 ARY CIRCULATION TECHNICIAN Harika Jensen R.N. - 06/16/2016 9:15 PM CST PRN Response PRN Response Entered On: 06/16/2016 21:09 LIBRARY CIRCULATION TECHNICIAN Performed On: 06/16/2016 21:15 LIBRARY CIRCULATION TECHNICIAN by HARIKA JENSEN RN Intervention Information: diazepam Performed by HARIKA JENSEN RN on 06/16/2016 20:15:00 LIBRARY CIRCULATION TECHNICIAN diazePAM,5mg PO,Spasm PRN Medication Effectiveness Evaluation PRN Medication Effective : No HARIKA JENSEN RN - 06/16/2016 21:09 LIBRARY CIRCULATION TECHNICIAN [facility] Document Id: [id number] LIBRARY CIRCULATION TECHNICIAN!3 ARY CIRCULATION TECHNICIAN Harika Jensen R.N. - 06/16/2016 8:58 PM CST PRN Response PRN Response Entered On: 06/16/2016 20:58 LIBRARY CIRCULATION TECHNICIAN Performed On: 06/16/2016 20:58 LIBRARY CIRCULATION TECHNICIAN by HARIKA JENSEN RN Intervention Information: hydromorphone Performed by HARIKA JENSEN RN on 06/16/2016 20:15:00 LIBRARY CIRCULATION TECHNICIAN HYDROmorphone,0.5mg IV Push,Wrist Left,Pain PRN Medication Effectiveness Evaluation PRN Medication Effective : No HARIKA JENSEN RN - 06/16/2016 20:58 LIBRARY CIRCULATION TECHNICIAN Source: [facility] [employer] Document Id: [id number] LIBRARY CIRCULATION TECHNICIAN!3 ARY CIRCULATION TECHNICIAN Roopa Duarte R.N. - 06/16/2016 6:05 PM CST PRN Response PRN Response Entered On: 06/16/2016 18:45 LIBRARY CIRCULATION TECHNICIAN Performed On: 06/16/2016 18:05 LIBRARY CIRCULATION TECHNICIAN by ROOPA DUARTE RN Intervention Information: hydromorphone Performed by ROOPA DUARTE RN on 06/16/2016 17:35:00 LIBRARY CIRCULATION TECHNICIAN HYDROmorphone,0.5mg IV Push,Wrist Left,Pain PRN Medication Effectiveness Evaluation PRN Medication Effective : Yes ROOPA DUARTE RN - 06/16/2016 18:45 LIBRARY CIRCULATION TECHNICIAN Source: [facility] [employer] Document Id: [id number] LIBRARY CIRCULATION TECHNICIAN!3 ARY CIRCULATION TECHNICIAN Roopa Duarte R.N. - 06/16/2016 5:30 PM CST PRN Response PRN Response Entered On: 06/16/2016 18:00 LIBRARY CIRCULATION TECHNICIAN Performed On: 06/16/2016 17:30 LIBRARY CIRCULATION TECHNICIAN by ROOPA DAURTE RN Intervention Information: oxycodone Performed by ROOPA DUARTE RN on 06/16/2016 16:39:00 LIBRARY CIRCULATION TECHNICIAN oxyCODONE,10mg PO,Pain PRN Medication Effectiveness Evaluation PRN Medication Effective : No Post Medication Pain Assessment : 7 ROOPA DUARTE RN - 06/16/2016 18:00 LIBRARY CIRCULATION TECHNICIAN Source: [facility] [employer] Document Id: [id number] LIBRARY CIRCULATION TECHNICIAN!4 ARY CIRCULATION TECHNICIAN Roopa Duarte R.N. - 06/16/2016 4:28 PM CST PRN Response PRN Response Entered On: 06/16/2016 17:24 LIBRARY CIRCULATION TECHNICIAN Performed On: 06/16/2016 16:28 LIBRARY CIRCULATION TECHNICIAN by ROOPA DUARTE RN Intervention Information: ketorolac Performed by ROOPA DUARTE RN on 06/16/2016 15:58:00 LIBRARY CIRCULATION TECHNICIAN ketorolac,15mg IV Push,Wrist Left,Pain PRN Medication Effectiveness Evaluation PRN Medication Effective : Yes Post Medication Pain Assessment : 5 ROOPA DUARTE RN - 06/16/2016 17:24 LIBRARY CIRCULATION TECHNICIAN Source: [facility] [employer] Document Id: [id number] LIBRARY CIRCULATION TECHNICIAN!4 ARY CIRCULATION TECHNICIAN Ludmila Solitario REmekaNEmeka - 06/16/2016 2:32 PM CST PRN Response PRN Response Entered On: 06/16/2016 14:32 LIBRARY CIRCULATION TECHNICIAN Performed On: 06/16/2016 14:32 LIBRARY CIRCULATION TECHNICIAN by LUDMILA SOLITARIO RN Intervention Information: oxycodone Performed by LUDMILA SOLITARIO RN on 06/16/2016 13:15:00 LIBRARY CIRCULATION TECHNICIAN oxyCODONE,10mg PO,Pain PRN Medication Effectiveness Evaluation PRN Medication Effective : No Post Medication Pain Assessment : 7 LUDMILA SOLITARIO RN - 06/16/2016 14:32 LIBRARY CIRCULATION TECHNICIAN Source: [facility] [employer] Document Id: [id number] LIBRARY CIRCULATION TECHNICIAN!4 ARY CIRCULATION TECHNICIAN Ludmila Solitario R.N. - 06/16/2016 2:32 PM CST PRN Response PRN Response Entered On: 06/16/2016 14:32 LIBRARY CIRCULATION TECHNICIAN Performed On: 06/16/2016 14:32 LIBRARY CIRCULATION TECHNICIAN by LUDMILA SOLITARIO RN Intervention Information: hydromorphone Performed by LUDMILA SOLITARIO RN on 06/16/2016 13:58:00 LIBRARY CIRCULATION TECHNICIAN HYDROmorphone,0.5mg IV Push,Forearm Left Lower,Pain PRN Medication Effectiveness Evaluation PRN Medication Effective : Yes Post Medication Pain Assessment : 6 LUDMILA SOLITARIO RN - 06/16/2016 14:32 LIBRARY CIRCULATION TECHNICIAN Source: [facility] [employer] Document Id: [id number] LIBRARY CIRCULATION TECHNICIAN!4 ARY CIRCULATION TECHNICIAN Ludmila Solitario R.N. - 06/16/2016 2:32 PM CST PRN Response PRN Response Entered On: 06/16/2016 14:32 LIBRARY CIRCULATION TECHNICIAN Performed On: 06/16/2016 14:32 LIBRARY CIRCULATION TECHNICIAN by LUDMILA SOLITARIO RN Intervention Information: acetaminophen Performed by LUDMILA SOLITARIO RN on 06/16/2016 13:58:00 LIBRARY CIRCULATION TECHNICIAN acetaminophen,500mg PO,Pain / Fever PRN Medication Effectiveness Evaluation PRN Medication Effective : Yes Post Medication Pain Assessment : 6 LUDMILA SOLITARIO RN - 06/16/2016 14:32 LIBRARY CIRCULATION TECHNICIAN Source: [facility] [employer] Document Id: [id number] LIBRARY CIRCULATION TECHNICIAN!4 ARY CIRCULATION TECHNICIAN Ludmila Solitario REmekaN. - 06/16/2016 2:32 PM CST PRN Response PRN Response Entered On: 06/16/2016 14:32 LIBRARY CIRCULATION TECHNICIAN Performed On: 06/16/2016 14:32 LIBRARY CIRCULATION TECHNICIAN by LUDMILA SOLITARIO RN Intervention Information: diphenhydrAMINE Performed by LUDMILA SOLITARIO RN on 06/16/2016 14:19:00 LIBRARY CIRCULATION TECHNICIAN diphenhydrAMINE,50mg PO,Itching PRN Medication Effectiveness Evaluation PRN Medication Effective : Yes LUDMILA SOLITARIO RN - 06/16/2016 14:32 LIBRARY CIRCULATION TECHNICIAN Source: [facility] [employer] Document Id: [id number] LIBRARY CIRCULATION TECHNICIAN!3 ARY CIRCULATION TECHNICIAN Ludmila Solitario R.N. - 06/16/2016 11:19 AM CST PRN Response PRN Response Entered On: 06/16/2016 11:19 LIBRARY CIRCULATION TECHNICIAN Performed On: 06/16/2016 11:19 LIBRARY CIRCULATION TECHNICIAN by LUDMILA SOLITARIO RN Intervention Information: diazepam Performed by LUDMILA SOLITARIO RN on 06/16/2016 10:12:00 LIBRARY CIRCULATION TECHNICIAN diazePAM,5mg PO,Spasm PRN Medication Effectiveness Evaluation PRN Medication Effective : Yes LUDMILA SOLITARIO RN - 06/16/2016 11:19 LIBRARY CIRCULATION TECHNICIAN [facility] Document Id: [id number] LIBRARY CIRCULATION TECHNICIAN!3 ARY CIRCULATION TECHNICIAN Ludmila Solitario REmekaN. - 06/16/2016 11:19 AM CST PRN Response PRN Response Entered On: 06/16/2016 11:19 LIBRARY CIRCULATION TECHNICIAN Performed On: 06/16/2016 11:19 LIBRARY CIRCULATION TECHNICIAN by LUDMILA SOLITARIO RN Intervention Information: oxycodone Performed by LUDMILA SOLITARIO RN on 06/16/2016 10:12:00 LIBRARY CIRCULATION TECHNICIAN oxyCODONE,10mg PO,Pain PRN Medication Effectiveness Evaluation PRN Medication Effective : Yes Post Medication Pain Assessment : 5 LUDMILA SOLITARIO RN - 06/16/2016 11:19 LIBRARY CIRCULATION TECHNICIAN Source: [employer] Document Id: [id number] LIBRARY CIRCULATION TECHNICIAN!4 ARY CIRCULATION TECHNICIAN Ludmila Solitario R.N. - 06/16/2016 11:00 AM CST PRN Response PRN Response Entered On: 06/16/2016 11:19 LIBRARY CIRCULATION TECHNICIAN Performed On: 06/16/2016 11:00 LIBRARY CIRCULATION TECHNICIAN by LUDMILA SOLITARIO RN Intervention Information: ketorolac Performed by LUDMILA SOLITARIO RN on 06/16/2016 09:47:00 LIBRARY CIRCULATION TECHNICIAN ketorolac,15mg IV Push,Forearm Right Lower,Pain PRN Medication Effectiveness Evaluation PRN Medication Effective : No Post Medication Pain Assessment : 6 LUDMILA SOLITARIO RN - 06/16/2016 11:18 LIBRARY CIRCULATION TECHNICIAN Source: [facility] [employer] Document Id: [id number] LIBRARY CIRCULATION TECHNICIAN!4 ARY CIRCULATION TECHNICIAN Ludmila Solitario RJonathan. - 06/16/2016 9:20 AM CST PRN Response PRN Response Entered On: 06/16/2016 9:20 LIBRARY CIRCULATION TECHNICIAN Performed On: 06/16/2016 9:20 LIBRARY CIRCULATION TECHNICIAN by LUDMILA SOLITARIO RN Intervention Information: hydromorphone Performed by LUDMILA SOLITARIO RN on 06/16/2016 08:12:00 LIBRARY CIRCULATION TECHNICIAN HYDROmorphone,0.5mg IV Push,Forearm Right Mid,Pain PRN Medication Effectiveness Evaluation PRN Medication Effective : Yes Post Medication Pain Assessment : 5 LUDMILA SOLITARIO RN - 06/16/2016 9:20 LIBRARY CIRCULATION TECHNICIAN Source: [facility] [employer] Document Id: [id number] LIBRARY CIRCULATION TECHNICIAN!4 ARY CIRCULATION TECHNICIAN Ludmila Solitario R.N. - 06/16/2016 9:20 AM CST PRN Response PRN Response Entered On: 06/16/2016 9:20 LIBRARY CIRCULATION TECHNICIAN Performed On: 06/16/2016 9:20 LIBRARY CIRCULATION TECHNICIAN by LUDMILA SOLITARIO RN Intervention Information: acetaminophen Performed by LUDMILA SOLITARIO RN on 06/16/2016 08:12:00 LIBRARY CIRCULATION TECHNICIAN acetaminophen,500mg PO,Pain / Fever PRN Medication Effectiveness Evaluation PRN Medication Effective : Yes Post Medication Pain Assessment : 5 LUDMILA SOLITARIO RN - 06/16/2016 9:20 LIBRARY CIRCULATION TECHNICIAN Source: [facility] [employer] Document Id: [id number] LIBRARY CIRCULATION TECHNICIAN!4 ARY CIRCULATION TECHNICIAN Ludmila Solitario RDevendra - 06/16/2016 8:58 AM CST PRN Response PRN Response Entered On: 06/16/2016 8:58 LIBRARY CIRCULATION TECHNICIAN Performed On: 06/16/2016 8:58 LIBRARY CIRCULATION TECHNICIAN by LUDMILA SOLITARIO RN Intervention Information: oxycodone Performed by HERMILO ESTEVES RN on 06/16/2016 05:58:00 LIBRARY CIRCULATION TECHNICIAN oxyCODONE,10mg PO,Pain PRN Medication Effectiveness Evaluation PRN Medication Effective : No Post Medication Pain Assessment : 6 LUDMILA SOLITARIO RN - 06/16/2016 8:58 LIBRARY CIRCULATION TECHNICIAN [facility]: [facility] Document Id: [id number] LIBRARY CIRCULATION TECHNICIAN!4 ARY CIRCULATION TECHNICIAN Hermilo Esteves R.N. - 06/16/2016 6:03 AM CST PRN Response PRN Response Entered On: 06/16/2016 6:03 LIBRARY CIRCULATION TECHNICIAN Performed On: 06/16/2016 6:03 LIBRARY CIRCULATION TECHNICIAN by HERMILO ESTEVES RN Intervention Information: zolpidem Performed by HERMILO ESTEVES RN on 06/16/2016 04:40:00 LIBRARY CIRCULATION TECHNICIAN zolpidem,5mg PO,Insomnia PRN Medication Effectiveness Evaluation PRN Medication Effective : No Post Medication Pain Assessment : N/A HERMILO ESTEVES RN - 06/16/2016 6:03 LIBRARY CIRCULATION TECHNICIAN Source: [employer] Document Id: [id number] LIBRARY CIRCULATION TECHNICIAN!4 ARY CIRCULATION TECHNICIAN Hermilo Esteves I RDevendra - 06/16/2016 4:44 AM CST PRN Response PRN Response Entered On: 06/16/2016 4:44 LIBRARY CIRCULATION TECHNICIAN Performed On: 06/16/2016 4:44 LIBRARY CIRCULATION TECHNICIAN by HERMILO ESTEVES RN Intervention Information: hydromorphone Performed by HERMILO ESTEVES RN on 06/16/2016 01:44:00 LIBRARY CIRCULATION TECHNICIAN HYDROmorphone,0.5mg IV Push,Forearm Right Mid,Pain PRN Medication Effectiveness Evaluation PRN Medication Effective : No Post Medication Pain Assessment : 6 HERMILO ESTEVES RN - 06/16/2016 4:44 LIBRARY CIRCULATION TECHNICIAN Source: [facility] [employer] Document Id: [id number] LIBRARY CIRCULATION TECHNICIAN!4 ARY CIRCULATION TECHNICIAN Hermilo Esteves R.N. - 06/16/2016 4:44 AM CST PRN Response PRN Response Entered On: 06/16/2016 4:44 LIBRARY CIRCULATION TECHNICIAN Performed On: 06/16/2016 4:44 LIBRARY CIRCULATION TECHNICIAN by HERMILO ESTEVES I RN Intervention Information: oxycodone Performed by HERMILO ESTEVES I RN on 06/16/2016 01:10:00 LIBRARY CIRCULATION TECHNICIAN oxyCODONE,10mg PO,Pain PRN Medication Effectiveness Evaluation PRN Medication Effective : No Post Medication Pain Assessment : 6 HERMILO ESTEVES RN - 06/16/2016 4:44 LIBRARY CIRCULATION TECHNICIAN Source: [facility] [employer] Document Id: [id number] LIBRARY CIRCULATION TECHNICIAN!4 ARY CIRCULATION TECHNICIAN Hermilo Esteves R.N. - 06/16/2016 4:23 AM CST PRN Response PRN Response Entered On: 06/16/2016 5:51 LIBRARY CIRCULATION TECHNICIAN Performed On: 06/16/2016 4:23 LIBRARY CIRCULATION TECHNICIAN by HERMILO ESTEVES I RN Intervention Information: ketorolac Performed by HERMILO ESTEVES I RN on 06/16/2016 03:53:00 LIBRARY CIRCULATION TECHNICIAN ketorolac,15mg IV Push,Forearm Right Lower,Pain PRN Medication Effectiveness Evaluation PRN Medication Effective : No Post Medication Pain Assessment : 6 HERMILO ESTEVES RN - 06/16/2016 5:51 LIBRARY CIRCULATION TECHNICIAN Source: [facility] [employer] Document Id: [id number] LIBRARY CIRCULATION TECHNICIAN!4 ARY CIRCULATION TECHNICIAN Hermilo Esteves R.N. - 06/16/2016 12:14 AM CST PRN Response PRN Response Entered On: 06/16/2016 1:54 LIBRARY CIRCULATION TECHNICIAN Performed On: 06/16/2016 0:14 LIBRARY CIRCULATION TECHNICIAN by HERMILO ESTEVES I RN Intervention Information: diphenhydrAMINE Performed by TORIBIO COOLEY RN on 06/15/2016 23:14:00 LIBRARY CIRCULATION TECHNICIAN diphenhydrAMINE,50mg PO,Itching PRN Medication Effectiveness Evaluation PRN Medication Effective : Yes HERMILO ESTEVES I RN - 06/16/2016 1:54 LIBRARY CIRCULATION TECHNICIAN Source: [facility] [employer] Document Id: [id number] LIBRARY CIRCULATION TECHNICIAN!3 ARY CIRCULATION TECHNICIAN Hermilo Esteves R.N. - 06/15/2016 11:16 PM CST PRN Response PRN Response Entered On: 06/16/2016 1:03 LIBRARY CIRCULATION TECHNICIAN Performed On: 06/15/2016 23:16 LIBRARY CIRCULATION TECHNICIAN by HERMILO ESTEVES I RN Intervention Information: hydromorphone Performed by TORIBIO COOLEY RN on 06/15/2016 22:46:49 LIBRARY CIRCULATION TECHNICIAN HYDROmorphone,0.25mg IV Push,Arm Right,Pain PRN Medication Effectiveness Evaluation PRN Medication Effective : No HERMILO ESTEVES RN - 06/16/2016 1:03 LIBRARY CIRCULATION TECHNICIAN Source: [facility] [employer] Document Id: [id number] LIBRARY CIRCULATION TECHNICIAN!3 ARY CIRCULATION TECHNICIAN Toribio Cooley R.N. - 06/15/2016 10:52 PM CST rporting chest heavines after dilaudid injection slow IVP. nurse remaining at bedside. notifying primary nurse of patient complaint. Electronically Signed By: TORIBIO COOLEY RN On: 06/15/2016 10:54 PM Source: [facility] [employer] Document Id: [id number] ARY CIRCULATION TECHNICIAN Hermilo Esteves R.N. - 06/15/2016 10:41 PM CST PRN Response PRN Response Entered On: 06/15/2016 22:41 LIBRARY CIRCULATION TECHNICIAN Performed On: 06/15/2016 22:41 LIBRARY CIRCULATION TECHNICIAN by HERMILO ESTEVES I RN Intervention Information: ketorolac Performed by HERMILO ESTEVES I RN on 06/15/2016 21:40:00 LIBRARY CIRCULATION TECHNICIAN ketorolac,15mg IV Push,Antecubital Right,Pain PRN Medication Effectiveness Evaluation PRN Medication Effective : Yes Post Medication Pain Assessment : 5 HERMILO ESTEVES I RN - 06/15/2016 22:41 LIBRARY CIRCULATION TECHNICIAN Source: [employer] Document Id: [id number] LIBRARY CIRCULATION TECHNICIAN!4 ARY CIRCULATION TECHNICIAN Hermilo Esteves R.N. - 06/15/2016 10:41 PM CST PRN Response PRN Response Entered On: 06/15/2016 22:41 LIBRARY CIRCULATION TECHNICIAN Performed On: 06/15/2016 22:41 LIBRARY CIRCULATION TECHNICIAN by HERMILO ESTEVES RN Intervention Information: oxycodone Performed by HERMILO ESTEVES I RN on 06/15/2016 21:40:00 LIBRARY CIRCULATION TECHNICIAN oxyCODONE,10mg PO,Pain PRN Medication Effectiveness Evaluation PRN Medication Effective : Yes Post Medication Pain Assessment : 5 HERMILO ESTEVES I RN - 06/15/2016 22:41 LIBRARY CIRCULATION TECHNICIAN Source: [employer] Document Id: [id number] LIBRARY CIRCULATION TECHNICIAN!4 ARY CIRCULATION TECHNICIAN Hermilo Esteves R.N. - 06/15/2016 9:53 PM CST PRN Response PRN Response Entered On: 06/15/2016 21:53 LIBRARY CIRCULATION TECHNICIAN Performed On: 06/15/2016 21:53 LIBRARY CIRCULATION TECHNICIAN by HERMILO ESTEVES I RN Intervention Information: hydromorphone Performed by HERMILO ESTEVES I RN on 06/15/2016 20:38:00 LIBRARY CIRCULATION TECHNICIAN HYDROmorphone,0.5mg IV Push,Antecubital Right,Pain PRN Medication Effectiveness Evaluation PRN Medication Effective : No Post Medication Pain Assessment : 7 HERMILO ESTEVES I RN - 06/15/2016 21:53 LIBRARY CIRCULATION TECHNICIAN Source: [employer] Document Id: [id number] LIBRARY CIRCULATION TECHNICIAN!4 ARY CIRCULATION TECHNICIAN documented in this encounter ED Notes Frances Vásquez R.N. - 06/15/2016 8:04 PM CST ED Disposition Summary ED Disposition Summary Entered On: 06/15/2016 20:04 LIBRARY CIRCULATION TECHNICIAN Performed On: 06/15/2016 20:04 LIBRARY CIRCULATION TECHNICIAN by FRANCES VÁSQUEZ RN ED Disposition Summary Present in Room During Exam/Procedure : Alone Mode of Discharge : Stretcher Nurse Receiving Report : [facility] RN Date/Time Nurse Received Report : 06/15/2016 20:04 LIBRARY CIRCULATION TECHNICIAN Transporter : Tech Printed Discharge Instructions Given to Patient : No Reason Discharge Instructions Not Given : pt admitted to [facility] Patient Status at Discharge from ED : Improved FRANCES VÁSQUEZ RN - 06/15/2016 20:04 LIBRARY CIRCULATION TECHNICIAN Source: [employer] Document Id: [id number] LIBRARY CIRCULATION TECHNICIAN!10 ARY CIRCULATION TECHNICIAN Frances Vásquez R.N. - 06/15/2016 8:04 PM CST ED Pain Assessment ED Pain Assessment Entered On: 06/15/2016 20:04 LIBRARY CIRCULATION TECHNICIAN Performed On: 06/15/2016 20:04 LIBRARY CIRCULATION TECHNICIAN by FRANCES VÁSQUEZ RN Pain Assessment Pain Symptoms : Yes FRANCES VÁSQUEZ RN - 06/15/2016 20:04 LIBRARY CIRCULATION TECHNICIAN [facility] Document Id: [id number] LIBRARY CIRCULATION TECHNICIAN!3 ARY CIRCULATION TECHNICIAN Frances Vásquez R.N. - 06/15/2016 7:26 PM CST ED Treatments and Procedures ED Treatments and Procedures Entered On: 06/15/2016 19:26 LIBRARY CIRCULATION TECHNICIAN Performed On: 06/15/2016 19:26 LIBRARY CIRCULATION TECHNICIAN by FRANCES VÁSQUEZ RN Peripheral IV Peripheral IV Assess/Intervention Grid Peripheral IV #1 IV Activity : Start Number of Attempts : 1 Date of Insertion : 06/15/2016 LIBRARY CIRCULATION TECHNICIAN IV Site : Antecubital Laterality : Right Catheter Size : 20 Site Condition : No complications Drainage Description : None Dressing/ Activity : Intact, Semipermeable membrane, Transparent FRANCES VÁSQUEZ RN - 06/15/2016 19:26 LIBRARY CIRCULATION TECHNICIAN [facility] Document Id: [id number] LIBRARY CIRCULATION TECHNICIAN!13 ARY CIRCULATION TECHNICIAN Frances Vásquez R.N. - 06/15/2016 7:25 PM CST ED Nurse Reassess Document Has Been Updated ED Nurse Reassess Entered On: 06/15/2016 19:25 LIBRARY CIRCULATION TECHNICIAN Performed On: 06/15/2016 19:25 LIBRARY CIRCULATION TECHNICIAN by FRANCES VÁSQUEZ RN Pain Assessment Pain Symptoms : Yes FRANCES VÁSQUEZ RN - 06/15/2016 19:25 LIBRARY CIRCULATION TECHNICIAN Pain Scale Pain Scale Verbal 0-10 : Open FRANCES VÁSQUEZ RN - 06/15/2016 19:25 LIBRARY CIRCULATION TECHNICIAN Pain Pain Assessment Grid Pain 1 Location : Rectal Intensity : 7 Comments (Comment: denies pain medication until she talks to surgeon [FRANCES VÁSQUEZ RN - 06/15/2016 20:03 LIBRARY CIRCULATION TECHNICIAN] ) FRANCES VÁSQUEZ RN - 06/15/2016 19:25 LIBRARY CIRCULATION TECHNICIAN Resp Reassess Respiratory Patient Stated Symptoms : None Distress : None Airway : Patent Respiratory Pattern : Regular Respirations : Unlabored FRANCES VÁSQUEZ RN - 06/15/2016 19:25 LIBRARY CIRCULATION TECHNICIAN CV Reassess CV Patient Stated Symptoms : None Skin Color : Normal for ethnicity Skin Description : Dry Skin Temperature : Warm FRANCES VÁSQUEZ RN - 06/15/2016 19:25 LIBRARY CIRCULATION TECHNICIAN Neuro Reassess Last Well Time Known : Not applicable Orientation : Oriented x 3 Characteristics of Speech : Clear Level of Consciousness : Alert FRANCES VÁSQUEZ RN - 06/15/2016 19:25 LIBRARY CIRCULATION TECHNICIAN GI Reassess GI Patient Stated Symptoms : Other: rectal pain FRANCES VÁSQUEZ RN - 06/15/2016 19:25 LIBRARY CIRCULATION TECHNICIAN Source: [facility] [employer] Document Id: [id number] LIBRARY CIRCULATION TECHNICIAN!4 ARY CIRCULATION TECHNICIAN Frances Vásquez R.N. - 06/15/2016 5:33 PM CST ED Primary Assessment Document Has Been Updated ED Primary Assessment Entered On: 06/15/2016 17:37 LIBRARY CIRCULATION TECHNICIAN Performed On: 06/15/2016 17:33 LIBRARY CIRCULATION TECHNICIAN by FRANCES VÁSQUEZ RN Reason For Visit (As Of: 06/15/2016 17:37:17 LIBRARY CIRCULATION TECHNICIAN) Problems(Active) Abuse Tobacco Smoking NOS (ICD-10-CM :Z72.0 ) Name of Problem: Abuse Tobacco Smoking NOS ; Recorder:DARIUS PARKS MD; Confirmation: Confirmed ; Classification: Medical ; Code: Z72.0 ; Contributor System: PowerChart ; Last Updated: 05/12/2016 15:21 LIBRARY CIRCULATION TECHNICIAN ; Life Cycle Date: 05/12/2016 ; Life [...] System: PowerChart ; Last Updated: 05/12/2016 15:20 LIBRARY CIRCULATION TECHNICIAN ; Life Cycle Date: 05/12/2016 ; Life Cycle Status: Active ; Responsible Provider: DARIUS PARKS MD; Vocabulary: ICD-10-CM Diagnoses(Active) Rectal pain Date: 06/15/2016 ; Diagnosis Type: Reason For Visit ; Confirmation: Complaint of ; Clinical Dx: Rectal pain ; Classification: Medical ; Clinical Service: Emergency medicine ; Code: PNED ; Probability: 0 ; Diagnosis Code: [id number] Triage Chief Complaint Description : pt arrives with c/o rectal pain radiating to tailbone and bleeding. ptstates she had a hard BM with bright red blood. pt concerned about amount of blood with BM. took 2 oxycodone prior to arrival. pt had hemorrhoid surgery 2 days ago Information Given By : Patient, Spouse Mode of Arrival ED : Ambulatory Track : Medical Languages : [place] Treatments Prior to Arrival : Home treatments Are you ? : No Is Patient Female and 13-50 no hysterectomy : Yes Status : Patient denies FRANCES VÁSQUEZ RN - 06/15/2016 17:33 LIBRARY CIRCULATION TECHNICIAN Pain Assessment Pain Symptoms : Yes FRANCES VÁSQUEZ RN - 06/15/2016 17:33 LIBRARY CIRCULATION TECHNICIAN Pain Scale Pain Scale Verbal 0-10 : Open FRANCES VÁSQUEZ RN - 06/15/2016 17:33 LIBRARY CIRCULATION TECHNICIAN Pain Pain Assessment Grid Pain 1 Location : Rectal Intensity : 7 FRANCES VÁSQUEZ RN - 06/15/2016 17:33 LIBRARY CIRCULATION TECHNICIAN DENNY DCP GENERIC CODE Tracking Acuity : 4 -Less Urgent Tracking Group : [facility] ED/ FRANCES VÁSQUEZ RN - 06/15/2016 17:33 LIBRARY CIRCULATION TECHNICIAN Allergy (As Of: 06/15/2016 17:37:17 LIBRARY CIRCULATION TECHNICIAN) Allergies (Active) NKA Estimated Onset Date: Unspecified ; Created By: KATIE BRUNNER MD; Reaction Status: Active ; Category: Drug ; Substance: NKA ; Type: Allergy ; Updated By: KATIE BRUNNER MD; Reviewed Date: 06/15/2016 17:35 LIBRARY CIRCULATION TECHNICIAN Respiratory Airway : Patent Respirations : Unlabored Respiratory Pattern : Regular FRANCES VÁSQUEZ RN - 06/15/2016 17:33 LIBRARY CIRCULATION TECHNICIAN Cardiovascular Heart Rhythm : Regular Skin Color : Normal for ethnicity Skin Description : Dry Skin Temperature : Warm FRANCES VÁSQUEZ RN - 06/15/2016 17:33 LIBRARY CIRCULATION TECHNICIAN Neurological Last Well Time Known : Not applicable Level of Consciousness : Alert Orientation : Oriented x 3 Characteristics of Speech : Clear FRANCES VÁSQUEZ RN - 06/15/2016 17:33 LIBRARY CIRCULATION TECHNICIAN ED Psychosocial Affect/Behavior : Calm, Cooperative, Appropriate Domestic Abuse Concerns : None Behavioral Health Screen/Safety Assmt : No FRANCES VÁSQUEZ RN - 06/15/2016 17:33 LIBRARY CIRCULATION TECHNICIAN Gastrointestinal Nutrition ED : Adequate GI Detailed Assessment : Yes FRANCES VÁSQUEZ RN - 06/15/2016 17:33 LIBRARY CIRCULATION TECHNICIAN GI Detailed GI Patient Stated Symptoms : Stools, black/bloody, Other: rectal pain Bowel Movement Last Date : 06/15/2016 LIBRARY CIRCULATION TECHNICIAN Stool Description : Hard FRANCES VÁSQUEZ RN - 06/15/2016 17:33 LIBRARY CIRCULATION TECHNICIAN Musculoskeletal Fall Prevention Education Provided : Yes FRANCES VÁSQUEZ RN - 06/15/2016 17:33 LIBRARY CIRCULATION TECHNICIAN Social Habits Exposure to Tobacco Smoke : [...] day Tobacco Use/Advised to Quit : No FRANCES VÁSQUEZ RN - 06/15/2016 17:33 LIBRARY CIRCULATION TECHNICIAN Alcohol Use Grid Alcohol Use : Yes Frequency : Occasionally FRANCES VÁSQUEZ RN - 06/15/2016 17:33 LIBRARY CIRCULATION TECHNICIAN Recreational Drug Use Grid Drug Use : Current Type : Alcohol Route : Oral Frequency : Other: TWICE A MONTH FRANCES VÁSQUEZ RN - 06/15/2016 17:33 LIBRARY CIRCULATION TECHNICIAN Source: [facility] POWERCHART Document Id: [id number] LIBRARY CIRCULATION TECHNICIAN!72 ARY CIRCULATION TECHNICIAN Josue Harvey R.N. - 06/15/2016 5:01 PM CST ED Triage Assessment Document Has Been Updated ED Triage Assessment Entered On: 06/15/2016 17:07 LIBRARY CIRCULATION TECHNICIAN Performed On: 06/15/2016 17:01 LIBRARY CIRCULATION TECHNICIAN by JOSUE HARVEY RN Reason For Visit (As Of: 06/15/2016 17:07:57 LIBRARY CIRCULATION TECHNICIAN) Problems(Active) Abuse Tobacco Smoking NOS (ICD-10-CM :Z72.0 ) Name of Problem: Abuse Tobacco Smoking NOS ; Recorder:DARIUS PARKS MD; Confirmation: Confirmed ; Classification: Medical ; Code: Z72.0 ; Contributor System: PowerChart ; Last Updated: 05/12/2016 15:21 LIBRARY CIRCULATION TECHNICIAN ; Life Cycle Date: 05/12/2016 ; Life [...] System: PowerChart ; Last Updated: 05/12/2016 15:20 LIBRARY CIRCULATION TECHNICIAN ; Life Cycle Date: 05/12/2016 ; Life Cycle Status: Active ; Responsible Provider: DARIUS PARKS MD; Vocabulary: ICD-10-CM Diagnoses(Active) Rectal pain Date: 06/15/2016 ; Diagnosis Type: Reason For Visit ; Confirmation: Complaint of ; Clinical Dx: Rectal pain ; Classification: Medical ; Clinical Service: Emergency medicine ; Code: PNED ; Probability: 0 ; Diagnosis Code: [id number] Triage Chief Complaint Description : recent hemmorrhoidectomy, having increased pain and bleeding Information Given By : Patient Present in Room During Exam/Procedure : Spouse Mode of Arrival ED : Ambulatory Track : Medical Languages : [place] Patient Informed of Triage Location : Emergency department Treatments Prior to Arrival : Home treatments Is Patient Female and 13-50 no hysterectomy : Yes JOSUE HARVEY RN - 06/15/2016 17:06 LIBRARY CIRCULATION TECHNICIAN Pain Assessment Pain Symptoms : Yes JOSUE HARVEY RN - 06/15/2016 17:06 LIBRARY CIRCULATION TECHNICIAN Pain Scale Pain Scale Verbal 0-10 : Open JOSUE HARVEY RN - 06/15/2016 17:06 LIBRARY CIRCULATION TECHNICIAN Pain Pain Assessment Grid Pain 1 Location : Rectal Intensity : 7 Time Pattern : Acute JOSUE HARVEY RN - 06/15/2016 17:06 LIBRARY CIRCULATION TECHNICIAN DENNY DCP GENERIC CODE Tracking Acuity : 5 -Non Urgent Tracking Group : [facility] ED/UC JOSUE HARVEY RN - 06/15/2016 17:06 LIBRARY CIRCULATION TECHNICIAN [facility] Document Id: [id number] LIBRARY CIRCULATION TECHNICIAN!25 ARY CIRCULATION TECHNICIAN Maylin Moore D.O. - 06/15/2016 4:00 PM CST Rectal pain Patient: RADHA BLANCHARD Age: 31 years Sex: Female : 1985 Author: MAYLIN MOORE DO Attachments: None Basic Information History source: Patient. Arrival mode: Private vehicle. Additional information: Chief Complaint from Nursing Triage Note : Chief Complaint Description 06/15/2016 17:33 LIBRARY CIRCULATION TECHNICIAN Chief Complaint Description pt arrives with c/o rectal pain radiating to tailbone and bleeding. pt states she had a hard BM with bright red blood. pt concerned about amount of blood with BM. took 2 oxycodone prior to arrival. pt had hemorrhoid surgery 2 days ago 06/15/2016 17:01 LIBRARY CIRCULATION TECHNICIAN Chief Complaint Description recent hemmorrhoidectomy, having increased pain andbleeding . History of Present Illness The patient presents with rectal pain and post-surgical. The onset was with bowel movement. The course/duration of symptoms is fluctuating in intensity. The character of symptoms is sharp. The degree of symptoms is moderate. There are exacerbating factors including bowel movement and movement. There are relieving factors including analgesics, sitz baths and partial, incomplete relief. She couldn't afford the hydrocortisone suppositories. . Risk factors consist of not proctitis. Prior episodes: multiple ED visits. Therapy today: over the counter medications, prescription medications and local therapy. Associated symptoms: rectal bleeding, She feels that her constipation is controlled with medication. and denies vomiting. She hadn't taken oxycodone for about 3 days prior to needing to use it this afternoon. Review of Systems Constitutional symptoms: No fever. Skin symptoms: No rash. Gastrointestinal symptoms: Rectal bleeding and rectal pain, but no abdominal pain or no vomiting. Musculoskeletal symptoms: Back pain and presacral, which is new. Psychiatric symptoms: Sleeping problems. Endocrine symptoms: No hyperglycemia. Health Status Allergies: Allergic Reactions (Selected) NKA. Medications: (Selected) Prescriptions Prescribed Colace 100 mg oral capsule: 100 mg, 1 cap(s), PO, 2xDay, 30 cap(s), 1 Refill(s) HYDROmorphone 2 mg oral tablet: 2 mg-6 mg, PO, q4hr, for 5 day(s), PRN: Pain, 30 tab(s), 0 Refill(s) Lidocaine Viscous 2% mucous membrane solution: 1 gordy, Topical, 4xDay, PRN: Pain(Severe), 100 mL, 1 Refill(s) acetaminophen 500 mg oral tablet: 1,000 mg, 2 tab(s), PO, q6hr, for 7 day(s), Take as needed for pain or headache., PRN: pain, 56 tab(s), 3 Refill(s) ketorolac 10 mg oral tablet: 10 mg, 1 tab(s), PO, q6hr, for 5 day(s), 20 tab(s), 0 Refill(s). Past Medical/ Family/ Social History Medical history: Reviewed as documented in chart. Surgical history: Hemorrhoidectomy ([id number]) on 06/03/2016 at 31 Years. Esophagogastroduodenoscopy ([id number]) on 08/12/2015 at 30 Years. Tubal ligation ([id number]) on 07/16/2011 at 26 Years.. Family history: Reviewed as documented in chart. Social history: Family/social situation: . Physical Examination Vital Signs: Vital Signs 06/15/2016 17:21 LIBRARY CIRCULATION TECHNICIAN Temperature Core 37.0 DegC Peripheral Pulse Rate 80 /min Respiratory Rate 18 /min SpO2 95 % Systolic Blood Pressure 121 mmHg Diastolic Blood Pressure 85 mmHg , oxygen saturation. General: Appropriate for age and moderate distress. Skin: Warm, dry and Sutures at the rectum are intact, without active bleeding or wound dehiscence, but not pale. Head: Atraumatic. Eye: Pupils are equal, round and reactive to light and normal conjunctiva. Ears, nose, mouth and throat: Oral mucosa moist and no pharyngeal erythema or exudate. Cardiovascular: Regular rate and rhythm and Normal peripheral perfusion. Respiratory: Lungs are clear to auscultation and respirations are non-labored. Gastrointestinal: Soft, Nontender, Non distended and Rectal exam: Sutures at the rectum are intact, without active bleeding or wound dehiscence . Back: Normal range of motion and Tenderness with light and moderate touch to the skin overlaying thesacrum. Musculoskeletal: Normal ROM. normal strength. no tenderness. Neurological: No focal neurological deficit observed, normal coordination observed and Cranial nerves normal as tested. . Psychiatric: Cooperative and appropriate mood & affect. Medical Decision Making Differential Diagnosis:Yoselin-rectal abscess, Possible neuropathic pain, not fecal impaction. Reexamination/ Reevaluation Vital signs results included from flowsheet : Vital Signs 06/15/2016 19:12 LIBRARY CIRCULATION TECHNICIAN Pulse SpO2 98 /min SpO2 95 % Systolic Blood Pressure 118 mmHg Diastolic Blood Pressure 75 mmHg Mean Arterial Pressure 89 mmHg Course: improving. Assessment: exam improved, She had just taken her oxycodone prior to arrival and pain was reducing. . Impression and Plan Diagnosis Post-surgical pain (hemorrhoidectomy) Calls-Consults -Recommends prefers to keep overnight after bedside exam complete due to pain control issues and shehas failed the medications that she has been able to use at home. Prefers to review pelvic CT with contrast to exclude extension of any infection from the op site. Plan Condition: Improved, Stable. Disposition: Place in Observation Unit, Patient care transitioned to: Signed out awaiting transfer to 2nd floor bed, already seen by Dr Camarena who will follow CT pelvis result. Counseled: Patient, Family, Regarding diagnosis, Regarding treatment plan, Regarding prescription. Electronically Signed By: MAYLIN MOORE DO On: 06/23/2016 04:04 PM Source: [facility] POWERCHART Document Id: {[id number]} ARY CIRCULATION TECHNICIAN documented in this encounter Miscellaneous Notes Miscellaneous - Conversion, Historical Provider Ser - 06/17/2016 2:30 PM LIBRARY CIRCULATION TECHNICIAN Coding Summary-Paper Based CODING DATE: 06/18/2016 FINAL [facility] STATUS: * Discharged to Home or Self Care PAYOR: Medicaid ADMIT DX: K62.89 Other specified diseases of anus and rectum REASON FOR VISIT DX: K62.89 Other specified diseases of anus and rectum FINAL DX: PRINCIPAL: G89.18 Other acute postprocedural pain SECONDARY: K64.0 First degree hemorrhoids K64.4 Residual hemorrhoidal skin tags F17.200 Nicotine dependence, unspecified, uncomplicated K21.9 Gastro-esophageal reflux disease without esophagitis PROCEDURES DOCTOR NAME DATE NOTE: The code number assigned matches the documented diagnosis and / or procedure in the patient's chart. However, the narrative phrase printed from the coding software may appear abbreviated, or result in slightly different terminology. Coded By: MARYELLEN OLIVAS CCS Date Saved: 06/18/2016 08:22 am Source: [employer] Document Id: [id number] Miscellмарина - Julienne Lemons R.N. - 06/17/2016 1:53 PM CST *General Message Document Contains Addenda Addendum by TRELL BUNN on June 17, 2016 15:30:22 LIBRARY CIRCULATION TECHNICIAN Rescheduled and mailed. From: JULIENNE LEMONS RN To: Yojana Nurse; Specialty Care Process Manager; Sent: 06/17/2016 13:53:40 LIBRARY CIRCULATION TECHNICIAN Subject: *General Message Please reschedule patients hospital follow up. She needs to be seen in 2-3 weeks. She is being discharged from the hospital today. There was an appointment to be seen on 06/19/16 originally. Ordering Provider: Dr. Cadet. Please call patient with new appointment. Thank you. Source: [employer] Document Id: [id number] Miscellaneous - Janice oClon RDevendra - 06/17/2016 10:00 AM CST Adult Activities of Daily Living Adult Activities of Daily Living Entered On: 06/17/2016 12:26 LIBRARY CIRCULATION TECHNICIAN Performed On: 06/17/2016 10:00 LIBRARY CIRCULATION TECHNICIAN by JANICE COLON RN ADLs I Patient Position : Sitting in bed, Supine Activity Status ADL : Ambulating in room, Bathroom privileges Activity Assistance : Independent Assistive Device : None Ambulation Patient Effort : Good JANICE COLON RN - 06/17/2016 12:26 LIBRARY CIRCULATION TECHNICIAN Source: [facility] POWERCHART Document Id: [id number] LIBRARY CIRCULATION TECHNICIAN!7 ARY CIRCULATION TECHNICIAN Miscellaneous - Janice Colon R.N. - 06/17/2016 9:00 AM CST Adult Ongoing Assessment Adult Ongoing Assessment Entered On: 06/17/2016 10:02 LIBRARY CIRCULATION TECHNICIAN Performed On: 06/17/2016 9:00 LIBRARY CIRCULATION TECHNICIAN by JANICE COLON RN Respiratory Respiratory Patient Stated Symptoms : None Respirations : Unlabored Distress : None Respiratory Pattern : Regular All Lobes Breath Sounds : Clear Cough : None Sputum Amount : None Suction : None JANICE COLON RN - 06/17/2016 9:58 LIBRARY CIRCULATION TECHNICIAN Cardiovascular CV Patient Stated Symptoms : None Heart Rhythm : Regular Heart Sounds ICU : S1S2 Antiembolism Device Yes/No : No Nail Bed Color : [place] Capillary Refill : Less than 2 seconds Edema Assessment : No JANICE COLON RN - 06/17/2016 9:58 LIBRARY CIRCULATION TECHNICIAN Radial Pulse, Left : 2+ Normal Radial Pulse, Right : 2+ Normal Brachial Pulse, Left : 2+ Normal Brachial Pulse, Right : 2+ Normal JANICE COLON RN - 06/17/2016 9:58 LIBRARY CIRCULATION TECHNICIAN Skin Color : Normal for ethnicity Skin Description : Dry Skin Temperature : Warm Activity Tolerance : Without distress JANICE COLON RN - 06/17/2016 9:58 LIBRARY CIRCULATION TECHNICIAN Neurological Neuro Patient Stated Symptoms : None Orientation : Oriented x 3 Level of Consciousness : Alert Gait : Steady Swallowing Difficulty/Aspiration Risk : None JANICE COLON RN - 06/17/2016 9:58 LIBRARY CIRCULATION TECHNICIAN Blanco Coma Eye Opening Response Blanco : Spontaneously Best Verbal Response [place] : Oriented Best Motor Response Blanco : Obeys simple commands [place] Coma Score : 15 JANICE COLON RN - 06/17/2016 9:58 LIBRARY CIRCULATION TECHNICIAN Psycho/Emotional Affect/Behavior : Cooperative, Appropriate, Anxious Pain Symptoms : No Feels Rested : Yes JANICE COLON RN - 06/17/2016 9:58 LIBRARY CIRCULATION TECHNICIAN Coping Grid Identifies effective strategies : Yes Uses effective strategies : Yes Reports increase in psychological comfort : Yes Indicates sense of control : Yes Stressors perceived within control : Yes Stable mood with appropriate affect : Yes Behaviors indicate use of coping mechanism : Yes Family supportive and involved in care : Yes Values/Beliefs incorporated appropriately : Yes JANICE COLON RN - 06/17/2016 9:58 LIBRARY CIRCULATION TECHNICIAN Safety Grid Vision, Hearing, Mobility Adequate to Meet Safety Needs : Yes JANICE COLON RN - 06/17/2016 9:58 LIBRARY CIRCULATION TECHNICIAN Gastrointestinal GI Patient Stated Symptoms : None Abdomen Description : Symmetric Abdomen Palpation : Soft Bowel Movement Last Date : 06/17/2016 LIBRARY CIRCULATION TECHNICIAN JANICE COLON RN - 06/17/2016 9:58 LIBRARY CIRCULATION TECHNICIAN Nutrition Appetite : Good Eating Difficulties : None Feeding Ability : Complete independence JANICE COLON RN - 06/17/2016 9:58 LIBRARY CIRCULATION TECHNICIAN Genitourinary Patient Stated Symptoms : None Urinary Elimination : Voiding, no difficulties Urine Color : Yellow Urine Description : Clear JANICE COLON RN - 06/17/2016 9:58 LIBRARY CIRCULATION TECHNICIAN Integumentary Integumentary Patient Stated Symptoms : None Skin Turgor : Elastic Skin Integrity : Intact Mucous Membrane Color : [place] Mucous Membrane Description : Moist Skin Color : Normal for ethnicity Skin Description : Dry Skin Temperature : Warm JANICE COLON RN - 06/17/2016 9:58 LIBRARY CIRCULATION TECHNICIAN Incision/Wound Incision/Wound Care Grid Activity : Assessed Wound Type : Surgical incision Location : Other: rectum Laterality : Central Wound Dressing : Open to air JANICE COLON RN - 06/17/2016 9:58 LIBRARY CIRCULATION TECHNICIAN Lázaro Sensory Perception Lázaro : No impairment Moisture Lázaro : Rarely moist Activity Lázaro : Walks frequently Mobility Lázaro : No limitations Nutrition Lázaro : Excellent Friction and Shear Lázaro : No apparent problem Lázaro Score : 23 JANICE COLON RN - 06/17/2016 9:58 LIBRARY CIRCULATION TECHNICIAN Musculoskeletal Musculoskeletal Patient Stated Symptoms : None Activity Tolerance : Without distress JANICE COLON - 06/17/2016 9:58 LIBRARY CIRCULATION TECHNICIAN Peripheral IV Peripheral IV Assess/Intervention Grid Peripheral IV #1 IV Activity : Assessment, Saline lock Date of Insertion : 06/16/2016 LIBRARY CIRCULATION TECHNICIAN IV Site : Forearm Laterality : Left Catheter Size : 22 Catheter Type : Over the needle Infiltration Score : 0 Phlebitis Score : 0 Dressing/ Activity : Dry, Intact, Transparent JANICE COLON RN - 06/17/2016 9:58 LIBRARY CIRCULATION TECHNICIAN Falls Assessment Fall Injury Risk History of Falls : No Fall Injury Risk Factors : None of the below Risk Factors Patient has increased Fall Injury Risk : No JANICE COLON RN - 06/17/2016 9:58 LIBRARY CIRCULATION TECHNICIAN Hendrich II Fall Risk Confusion/Disorientation Hendrich : No Depression Fall Risk Hendrich : No Altered Elimination Fall Risk Hendrich : No Dizziness/Vertigo Fall Risk Hendrich : No Gender, Male Fall Risk Hendrich : No Prescribed Antiepileptics Hendrich : No Prescribed Benzodiazepines Hendrich : No Rising From Chair Fall Risk Hendrich : Able to rise in a single movement, no loss of balance with steps Fall Risk Score Hendrich II : 0 JANICE COLON RN - 06/17/2016 9:58 LIBRARY CIRCULATION TECHNICIAN Safe Patient Handling Safe Pt Handling Independent : Yes - No equipment needed Safe Pt Handling Equipment Rec : No Equipment Needed JANICE COLON RN - 06/17/2016 9:58 LIBRARY CIRCULATION TECHNICIAN Education General Patient Education Powergrid Topics : Pain Management, Plan of care, Use of pain scale(s) Individuals Taught : Patient Barriers to Learning : None evident Teaching Method : Explanation Teaching Evaluation : Verbalizes understanding JANICE COLON RN - 06/17/2016 9:58 LIBRARY CIRCULATION TECHNICIAN Source: [facility] POWERCHART Document Id: [id number] LIBRARY CIRCULATION TECHNICIAN!133 ARY CIRCULATION TECHNICIAN Miscellaneous - Harika Jensen R.N. - 06/17/2016 6:00 AM CST Adult Ongoing Assessment Adult Ongoing Assessment Entered On: 06/17/2016 8:25 LIBRARY CIRCULATION TECHNICIAN Performed On: 06/17/2016 6:00 LIBRARY CIRCULATION TECHNICIAN by HARIKA JENSEN RN Respiratory Respiratory Patient Stated Symptoms : None Respirations : Unlabored Distress : Mild Respiratory Pattern : Regular All Lobes Breath Sounds : Clear, Diminished Cough and Deep Breathe : Done Cough : None Sputum Amount : None Suction : None Airway : Patent Respiratory Detailed Assessment : Yes MALUCHADDHARIKA Peters Daja 06/17/2016 8:10 LIBRARY CIRCULATION TECHNICIAN Resp Detailed Breath Sounds Assessment Grid BRIGIDO : Clear RUL : Clear RML : Clear LLL : Clear RLL : Clear MIKEY HARIKA Daja 06/17/2016 8:10 LIBRARY CIRCULATION TECHNICIAN Cardiovascular CV Patient Stated Symptoms : None Antiembolism Device Yes/No : No Nail Bed Color : [place] Capillary Refill : Less than 2 seconds Edema Assessment : No Pacer : No Skin Color : Normal for ethnicity Skin Description : Dry Skin Temperature : Warm Activity Tolerance : Without distress HARIKA JENSEN Daja 06/17/2016 8:10 LIBRARY CIRCULATION TECHNICIAN Neurological Neuro Patient Stated Symptoms : None Orientation : Oriented x 3 Level of Consciousness : Alert Gait : Unsteady Swallowing Difficulty/Aspiration Risk : None MALUTERRAHARIKA Daja 06/17/2016 8:10 LIBRARY CIRCULATION TECHNICIAN Blanco Coma Eye Opening Response Blanco : Spontaneously Best Verbal Response Blanco : Oriented Best Motor Response [place] : Obeys simple commands Blanco Coma Score : 15 MALUTERRA HARIKA Daja 06/17/2016 8:10 LIBRARY CIRCULATION TECHNICIAN Oral Assessment Lips : Smooth, pink, moist, intact Gingiva : [place], smooth, moist, intact Tongue : Smooth, pink, moist, intact Saliva : Thin, watery, plentiful MALUTERRA HARIKA Daja 06/17/2016 8:10 LIBRARY CIRCULATION TECHNICIAN Psycho/Emotional Affect/Behavior : Cooperative, Anxious, Crying Pain Symptoms : Yes Feels Rested : No MIKEY HARIKA Farnsworth 06/17/2016 8:10 LIBRARY CIRCULATION TECHNICIAN Coping Grid Identifies effective strategies : Yes Uses effective strategies : Yes Reports increase in psychological comfort : Yes Indicates sense of control : Yes Stressors perceived within control : Yes Stable mood with appropriate affect : Yes Behaviors indicate use of coping mechanism : Yes Family supportive and involved in care : Yes Values/Beliefs incorporated appropriately : Yes HARIKA JENSEN 06/17/2016 8:10 LIBRARY CIRCULATION TECHNICIAN Safety Grid Vision, Hearing, Mobility Adequate to Meet Safety Needs : Yes HARIKA JENSEN 06/17/2016 8:10 LIBRARY CIRCULATION TECHNICIAN Pain Scale Pain Scale Verbal 0-10 : Open Pain Scale Non-Verbal PainAD : Open HARIKA JENSEN 06/17/2016 8:10 LIBRARY CIRCULATION TECHNICIAN Effects of Pain Grid Appetite : Severe Concentration : Severe Daily Life : Severe Emotions : Severe Relationships : Severe Sleep : Severe Work/School : Severe HARIKA JENSEN 06/17/2016 8:10 LIBRARY CIRCULATION TECHNICIAN Pain Pain Assessment Grid Pain 1 Location : Rectal Laterality : Bilateral Time Pattern : Acute Onset : Sudden Quality : Burning Pain Radiation : Yes (Comment: to breezy [HARIKA JENSEN RN - 06/17/2016 8:10 LIBRARY CIRCULATION TECHNICIAN] ) Aggravating Factors : Movement Alleviating Factors : Cold therapy, Medication, Moist heat, Repositioning, Rest Associated Symptoms : Nausea, Shortness of breath Interventions : Otto Crawford MD notified, Medications, Repositioning, Rest HARIKA JENSEN RN - 06/17/2016 8:10 LIBRARY CIRCULATION TECHNICIAN PAINAD Breathing : Occasional labored. Short period of hyperventilation. Negative vocalization : Repeated troubled calling out. Loud moan/groan/cry. Facial expression : Facial grimace Body language : Rigid, fists clenched. Knees up. Strikes out. Pull/push away. Consolability : Unable to console, distract or reassure PAINAD Score : 9 PAINAD Pain Interventions : Otto Crawford MD notified, Medications, Repositioning, Rest HARIKA JENSEN RN 06/17/2016 8:10 LIBRARY CIRCULATION TECHNICIAN Gastrointestinal GI Patient Stated Symptoms : Other: rectal pain Abdomen Description : Symmetric Abdomen Palpation : Soft, Tender Bowel Movement Last Date : 06/17/2016 LIBRARY CIRCULATION TECHNICIAN Bowel Sounds All Quadrants : Present Stool Color : Brown Stool Description : Liquid, Loose Stool Amount : Large Passing Flatus : Yes GI Detailed Assessment : Yes HARIKA JENSEN RN 06/17/2016 8:10 LIBRARY CIRCULATION TECHNICIAN GI Detailed Bowel Sounds Grid LUQ : Normoactive RUQ : Normoactive LLQ : Normoactive RLQ : Normoactive HARIKA JENSEN RN 06/17/2016 8:10 LIBRARY CIRCULATION TECHNICIAN Nutrition Appetite : Fair Eating Difficulties : None Feeding Ability : Complete independence HARIKA JENSEN RN 06/17/2016 8:10 LIBRARY CIRCULATION TECHNICIAN Genitourinary Patient Stated Symptoms : None Urinary Elimination : Voiding, no difficulties Urine Color : Yellow Urine Description : Sediment Bladder Distention : Absent HARIKA JENSEN RN 06/17/2016 8:10 LIBRARY CIRCULATION TECHNICIAN Integumentary Integumentary Patient Stated Symptoms : Ulcers/Sores Skin Turgor : Elastic Skin Integrity : Not intact Mucous Membrane Color : [place] Mucous Membrane Description : Moist HARIKA JENSEN RN - 06/17/2016 8:10 LIBRARY CIRCULATION TECHNICIAN Incision/Wound Incision/Wound Care Grid Activity : Assessed Wound Type : Surgical incision Location : Other: rectum Laterality : Central Description : Tender Surrounding Tissue : No signs or symptoms of localized infection Neurovascular Status : Neurovascular intact distal to injury, Pulses distal to injury palpable, Skindistal to injury warm and pink HARIKA JENSEN RN - 06/17/2016 8:10 LIBRARY CIRCULATION TECHNICIAN Lázaro Sensory Perception Lázaro : No impairment Moisture Lázaro : Rarely moist Activity Lázaro : Walks occasionally Mobility Lázaro : Slightly limited Nutrition Lázaro : Adequate Friction and Shear Lázaro : No apparent problem Lázaro Score : 20 HARIKA JENSEN RN - 06/17/2016 8:10 LIBRARY CIRCULATION TECHNICIAN Musculoskeletal Musculoskeletal Patient Stated Symptoms : Joint stiffness Activity Tolerance : Minimal distress HARIKA JENSEN RN 06/17/2016 8:10 LIBRARY CIRCULATION TECHNICIAN Peripheral IV Peripheral IV Assess/Intervention Grid Peripheral IV #1 IV Activity : Assessment Date of Insertion : 06/16/2016 LIBRARY CIRCULATION TECHNICIAN IV Site : Forearm Laterality : Left Catheter Size : 22 Catheter Type : Over the needle Site Condition : No complications Drainage Description : None Infiltration Score : 0 Phlebitis Score : 0 Dressing/ Activity : Dry, Intact, Transparent Flow/ Patency : No complications HARIKA JENSEN RN - 06/17/2016 8:10 LIBRARY CIRCULATION TECHNICIAN Falls Assessment Fall Injury Risk History of Falls : No Patient at Risk for Falls : No Fall Injury Risk Factors : None of the below Risk Factors Patient has increased Fall Injury Risk : No HARIKA JENSEN RN 06/17/2016 8:10 LIBRARY CIRCULATION TECHNICIAN Hendrich II Fall Risk Confusion/Disorientation Hendrich : No Depression Fall Risk Hendrich : No Altered Elimination Fall Risk Hendrich : Yes Dizziness/Vertigo Fall Risk Hendrich : No Gender, Male Fall Risk Hendrich : No Prescribed Antiepileptics Hendrich : No Prescribed Benzodiazepines Hendrich : Yes Rising From Chair Fall Risk Hendrich : Pushes up, successful in one attempt Fall Risk Score Hendrich II : 3 HARIKA JENSEN RN 06/17/2016 8:10 LIBRARY CIRCULATION TECHNICIAN Safe Patient Handling Safe Pt Handling Independent : Yes - No equipment needed Safe Pt Handling Equipment Rec : No Equipment Needed Repositioning Device Recommended : No HARIKA JENSEN RN - 06/17/2016 8:10 LIBRARY CIRCULATION TECHNICIAN Education General Patient Education Powergrid Topics : Activity limitations/expectations, Diagnostic results, Disease process, Equipment, Individual plan for pain management, Medication dosage, route, scheduling, Medication preadministration procedures, Medication special administration, storage, Nutrition/Diet, Oral care, Physical limitations, Plan of care, Safety, fall, Thermometer use, Treatments/Procedures/Tests, Turn/Cough/Deep breathing, Unit procedures, Use of pain scale(s), Wound care Individuals Taught : Patient Barriers to Learning : Acuity of Illness, Desire/Motivation, Emotional state, Memory problems Teaching Method : Explanation Teaching Evaluation : Needs further teaching, Needs reinforcement HARIKA JENSEN RN - 06/17/2016 8:10 LIBRARY CIRCULATION TECHNICIAN Source: [employer] Document Id: [id number] LIBRARY CIRCULATION TECHNICIAN!191 ARY CIRCULATION TECHNICIAN Miscellaneous - Harika Jensen R.N. - 06/17/2016 6:00 AM CST Adult Activities of Daily Living Adult Activities of Daily Living Entered On: 06/17/2016 8:26 LIBRARY CIRCULATION TECHNICIAN Performed On: 06/17/2016 6:00 LIBRARY CIRCULATION TECHNICIAN by HARIKA JENSEN RN ADLs I Patient Position : Lying on left side, Lying on right side, Sitting in bed Activity Status ADL : Ambulating in room, Bathroom privileges, HOB elevated intermittently, Up ad nayely Activity Assistance : Independent Repositioning/Pressure Reducing Devices : Pillow Ambulation Patient Effort : Fair HARIKA JENSEN RN - 06/17/2016 8:25 LIBRARY CIRCULATION TECHNICIAN ADLs II Hygiene Assistance Grid Back Rub : Refused Foot Care : Moderate assistance Hair Care : Independent Oral Care : Independent Yoselin Care : Minimum assistance HARIKA JENSEN RN - 06/17/2016 8:25 LIBRARY CIRCULATION TECHNICIAN Bowel Movement Last Date : 06/17/2016 LIBRARY CIRCULATION TECHNICIAN Standard Safety : Bed in low position, Call device within reach, ID band check, Night light, Non-Slip footwear, Rounds every 1 hour, Upper/Half-length side- rails up, Wheels locked HARIKA JENSEN RN - 06/17/2016 8:25 LIBRARY CIRCULATION TECHNICIAN Source: [employer] Document Id: [id number] LIBRARY CIRCULATION TECHNICIAN!16 ARY CIRCULATION TECHNICIAN Olga - Harika Jensen R.N. - 06/16/2016 8:32 PM CST Adult Activities of Daily Living Adult Activities of Daily Living Entered On: 06/16/2016 20:34 LIBRARY CIRCULATION TECHNICIAN Performed On: 06/16/2016 20:32 LIBRARY CIRCULATION TECHNICIAN by HARIKA JENSEN RN ADLs I Patient Position : Sitting in bed Activity Status ADL : HOB elevated intermittently, Up ad nayely Activity Assistance : Independent Assistive Device : None Repositioning/Pressure Reducing Devices : Pillow Ambulation Patient Effort : Good HARIKA JENSEN RN - 06/16/2016 20:32 LIBRARY CIRCULATION TECHNICIAN ADLs II Hygiene Assistance Grid Back Rub : Refused Bed Bath : Minimum assistance Foot Care : Independent Hair Care : Independent Oral Care : Independent Yoselin Care : Independent HARIKA JENSEN RN - 06/16/2016 20:32 LIBRARY CIRCULATION TECHNICIAN Bowel Movement Last Date : 06/15/2016 LIBRARY CIRCULATION TECHNICIAN Standard Safety : Bed in low position, Call device within reach, ID band check, Night light, Non-Slip footwear, Rounds every 1 hour, Upper/Half-length side- rails up, Wheels locked HARIKA JENSEN RN - 06/16/2016 20:32 LIBRARY CIRCULATION TECHNICIAN I&O Incont/BR : 4 HARIKA JENSEN RN - 06/16/2016 20:32 LIBRARY CIRCULATION TECHNICIAN ADLs Adult Nutrition Diet Type : Diet -- 06/15/16 20:09:00 LIBRARY CIRCULATION TECHNICIAN, General (No Restrictions) Dinner : 75 % HARIKA JENSEN RN - 06/16/2016 20:32 LIBRARY CIRCULATION TECHNICIAN Source: [facility] POWERCHART Document Id: [id number] LIBRARY CIRCULATION TECHNICIAN!23 ARY CIRCULATION TECHNICIAN Olga - Roopa Duarte R.N. - 06/16/2016 3:55 PM CST Adult Activities of Daily Living Adult Activities of Daily Living Entered On: 06/16/2016 18:02 LIBRARY CIRCULATION TECHNICIAN Performed On: 06/16/2016 15:55 LIBRARY CIRCULATION TECHNICIAN by ROOPA DUARTE RN ADLs I Patient Position : Elevate head of bed 45 degrees, Supine Activity Status ADL : Up ad nayely Activity Assistance : Independent Ambulation Patient Effort : Good Range of Motion LUE : Active Range of Motion RUE : Active Range of Motion LLE : Active Range of Motion RLE : Active ROPOA DUARTE RN - 06/16/2016 18:01 LIBRARY CIRCULATION TECHNICIAN ADLs II Bowel Movement Last Date : 06/15/2016 LIBRARY CIRCULATION TECHNICIAN Standard Safety : Bed in low position, Call device within reach, ID band check, Non-Slip footwear, Rounds every 2 hours, Upper/Half-length side-rails up, Wheels locked ROOPA DUARTE RN - 06/16/2016 18:01 LIBRARY CIRCULATION TECHNICIAN ADLs Adult Nutrition Diet Type : Diet -- 06/15/16 20:09:00 LIBRARY CIRCULATION TECHNICIAN, General (No Restrictions) Feeding Assistance : Independent ROOPA DUARTE RN - 06/16/2016 18:01 LIBRARY CIRCULATION TECHNICIAN Source: [employer] Document Id: [id number] LIBRARY CIRCULATION TECHNICIAN!16 ARY CIRCULATION TECHNICIAN Miscellaneous - Roopa Duarte RDevendra - 06/16/2016 3:55 PM CST Adult Ongoing Assessment Adult Ongoing Assessment Entered On: 06/16/2016 18:04 LIBRARY CIRCULATION TECHNICIAN Performed On: 06/16/2016 15:55 LIBRARY CIRCULATION TECHNICIAN by ROOPA DUARTE RN Respiratory Respiratory Patient Stated Symptoms : None Respirations : Unlabored Respiratory Pattern : Regular All Lobes Breath Sounds : Clear Cough : None Sputum Amount : None Suction : None Airway : Patent ROOPA DUARTE RN - 06/16/2016 18:02 LIBRARY CIRCULATION TECHNICIAN Cardiovascular Antiembolism Device Yes/No : No Edema Assessment : No Skin Color : Normal for ethnicity Skin Description : Normal Skin Temperature : Warm ROOPA DUARTE RN - 06/16/2016 18:02 LIBRARY CIRCULATION TECHNICIAN Neurological Neuro Patient Stated Symptoms : None Orientation : Oriented x 3 Level of Consciousness : Alert Gait : Steady Swallowing Difficulty/Aspiration Risk : None Last Well Time Known : Not applicable ROOPA DUARTE RN - 06/16/2016 18:02 LIBRARY CIRCULATION TECHNICIAN Psycho/Emotional Affect/Behavior : Calm, Cooperative Pain Symptoms : Yes ROOPA DUARTE RN - 06/16/2016 18:02 LIBRARY CIRCULATION TECHNICIAN Coping Grid Family supportive and involved in care : Yes ROOPA DUARTE RN - 06/16/2016 18:02 LIBRARY CIRCULATION TECHNICIAN Safety Grid Vision, Hearing, Mobility Adequate to Meet Safety Needs : Yes ROOPA DUARTE RN - 06/16/2016 18:02 LIBRARY CIRCULATION TECHNICIAN Pain Scale Pain Scale Verbal 0-10 : Open ROOPA DUARTE RN - 06/16/2016 18:02 LIBRARY CIRCULATION TECHNICIAN Pain Pain Assessment Grid Pain 1 Location : Rectal Intensity : 6 ROOPA DUARTE RN - 06/16/2016 18:02 LIBRARY CIRCULATION TECHNICIAN Gastrointestinal Abdomen Description : Rounded, Symmetric Abdomen Palpation : Non-Tender, Soft Bowel Movement Last Date : 06/15/2016 LIBRARY CIRCULATION TECHNICIAN Bowel Sounds All Quadrants : Present ROOPA DUARTE RN - 06/16/2016 18:02 LIBRARY CIRCULATION TECHNICIAN Genitourinary Urinary Elimination : Voiding, no difficulties ROOPA DUARTE RN - 06/16/2016 18:02 LIBRARY CIRCULATION TECHNICIAN Integumentary Skin Integrity : Not intact ROOPA DUARTE RN - 06/16/2016 18:02 LIBRARY CIRCULATION TECHNICIAN Incision/Wound Incision/Wound Care Grid Activity : Assessed Wound Type : Surgical incision Location : Other: rectum ROOPA DUARTE RN - 06/16/2016 18:02 LIBRARY CIRCULATION TECHNICIAN Lázaro Sensory Perception Lázaro : No impairment Moisture Lázaro : Rarely moist Activity Lázaro : Walks frequently Mobility Lázaro : No limitations Nutrition Lázaro : Excellent Friction and Shear Lázaro : No apparent problem Lázaro Score : 23 ROOPA DUARTE RN - 06/16/2016 18:02 LIBRARY CIRCULATION TECHNICIAN Peripheral IV Peripheral IV Assess/Intervention Grid Peripheral IV #1 IV Activity : Assessment, Saline lock Date of Insertion : 06/16/2016 LIBRARY CIRCULATION TECHNICIAN IV Site : Forearm Laterality : Left Catheter Size : 22 Catheter Type : Over the needle Site Condition : No complications Drainage Description : None Dressing/ Activity : Dry, Intact, Transparent ROOPA DUARTE RN - 06/16/2016 18:02 LIBRARY CIRCULATION TECHNICIAN Hendrich II Fall Risk Confusion/Disorientation Hendrich : No Depression Fall Risk Hendrich : No Altered Elimination Fall Risk Hendrich : No Dizziness/Vertigo Fall Risk Hendrich : No Gender, Male Fall Risk Hendrich : No Prescribed Antiepileptics Hendrich : No Prescribed Benzodiazepines Hendrich : Yes Rising From Chair Fall Risk Hendrich : Able to rise in a single movement, no loss of balance with steps Fall Risk Score Hendrich II : 1 ROOPA DUARTE RN - 06/16/2016 18:02 LIBRARY CIRCULATION TECHNICIAN Safe Patient Handling Safe Pt Handling Independent : Yes - No equipment needed Safe Pt Handling Equipment Rec : No Equipment Needed ROOPA DUARTE RN - 06/16/2016 18:02 LIBRARY CIRCULATION TECHNICIAN Education General Patient Education Powergrid Topics : Medication dosage, route, scheduling, Medication generic/brand names, purpose, action, PainManagement, Plan of care, Unit procedures, Use of pain scale(s) Individuals Taught : Patient Barriers to Learning : Acuity of Illness Teaching Method : Explanation Teaching Evaluation : Verbalizes understanding ROOPA DUARTE RN - 06/16/2016 18:02 LIBRARY CIRCULATION TECHNICIAN [facility] Document Id: [id number] LIBRARY CIRCULATION TECHNICIAN!93 ARY CIRCULATION TECHNICIAN Miscellaneous - Ludmila Solitario, R.N. - 06/16/2016 1:21 PM CST Adult Activities of Daily Living Adult Activities of Daily Living Entered On: 06/16/2016 13:22 LIBRARY CIRCULATION TECHNICIAN Performed On: 06/16/2016 13:21 LIBRARY CIRCULATION TECHNICIAN by LUDMILA SOLITARIO RN ADLs I Patient Position : Elevate head of bed 30 degrees Activity Assistance : Independent LUDMILA SOLITARIO RN - 06/16/2016 13:21 LIBRARY CIRCULATION TECHNICIAN ADLs II Hygiene Assistance Grid Shower : Minimum assistance LUDMILA SOLITARIO RN - 06/16/2016 13:21 LIBRARY CIRCULATION TECHNICIAN Bowel Movement Last Date : 06/15/2016 LIBRARY CIRCULATION TECHNICIAN Standard Safety : Bed in low position, Call device within reach, ID band check, Night light, Non-Slip footwear, Rounds every 1 hour, Upper/Half-length side- rails up, Wheels locked LUDMILA SOLITARIO RN - 06/16/2016 13:21 LIBRARY CIRCULATION TECHNICIAN I&O Oral Intake : 1,160 mL Incont/BR : 4 Stool Count : 0 LUDMILA SOLITARIO RN - 06/16/2016 13:21 LIBRARY CIRCULATION TECHNICIAN ADLs Adult Nutrition Diet Type : Diet -- 02/13/17 20:09:00 LIBRARY CIRCULATION TECHNICIAN, General (No Restrictions) Breakfast : 100 % Lunch : 75 % LUDMILA SOLITARIO RN - 06/16/2016 13:21 LIBRARY CIRCULATION TECHNICIAN Source: [facility] POWERCHART Document Id: [id number] LIBRARY CIRCULATION TECHNICIAN!17 ARY CIRCULATION TECHNICIAN Miscellaneous - Ludmila Solitario R.N. - 06/16/2016 8:00 AM CST Adult Ongoing Assessment Document Has Been Updated Adult Ongoing Assessment Entered On: 06/16/2016 9:20 LIBRARY CIRCULATION TECHNICIAN Performed On: 06/16/2016 8:00 LIBRARY CIRCULATION TECHNICIAN by LUDMILA SOLITARIO RN Respiratory Respiratory Patient Stated Symptoms : None Respirations : Unlabored Distress : None Respiratory Pattern : Regular All Lobes Breath Sounds : Clear Cough and Deep Breathe : Done Cough : None Sputum Amount : None Suction : None Airway : Patent LUDMILA SOLITARIO RN - 06/16/2016 9:13 LIBRARY CIRCULATION TECHNICIAN Cardiovascular CV Patient Stated Symptoms : None Heart Rhythm : Regular Heart Sounds ICU : S1S2 Antiembolism Device Yes/No : No Nail Bed Color : [place] Capillary Refill : Less than 2 seconds Edema Assessment : No LUDMILA SOLITARIO RN - 06/16/2016 9:13 LIBRARY CIRCULATION TECHNICIAN Radial Pulse, Left : 2+ Normal Radial Pulse, Right : 2+ Normal LUDMILA SOLITARIO RN - 06/16/2016 9:13 LIBRARY CIRCULATION TECHNICIAN Skin Color : Normal for ethnicity Skin Description : Normal Skin Temperature : Warm Activity Tolerance : Minimal distress LUDMILA SOLITARIO RN - 06/16/2016 9:13 LIBRARY CIRCULATION TECHNICIAN Neurological Neuro Patient Stated Symptoms : None Orientation : Oriented x 3 Level of Consciousness : Alert Gait : Steady Swallowing Difficulty/Aspiration Risk : None Last Well Time Known : Not applicable LUDMILA SOLITARIO RN - 06/16/2016 9:13 LIBRARY CIRCULATION TECHNICIAN [place] Coma Eye Opening Response [place] : Spontaneously Best Verbal Response [place] : Oriented Best Motor Response [place] : Obeys simple commands [place] Coma Score : 15 LUDMILA SOLITARIO RN - 06/16/2016 9:13 LIBRARY CIRCULATION TECHNICIAN Psycho/Emotional Affect/Behavior : Cooperative, Anxious, Restless Pain Symptoms : Yes Feels Rested : No LUDMILA SOLITARIO RN - 06/16/2016 9:13 LIBRARY CIRCULATION TECHNICIAN Coping Grid Reports increase in psychological comfort : No (Comment: anxious at times, emotional support, reassurance, frequent education done [LUDMILA SOLITARIO RN - 06/16/2016 9:13 LIBRARY CIRCULATION TECHNICIAN] ) Family supportive and involved in care : Yes Values/Beliefs incorporated appropriately : Yes LUDMILA SOLITARIO RN - 06/16/2016 9:13 LIBRARY CIRCULATION TECHNICIAN Safety Grid Vision, Hearing, Mobility Adequate to Meet Safety Needs : Yes LUDMILA SOLITARIO RN - 06/16/2016 9:13 LIBRARY CIRCULATION TECHNICIAN Pain Scale Pain Scale Verbal 0-10 : Open LUDMILA SOLITARIO RN - 06/16/2016 9:13 LIBRARY CIRCULATION TECHNICIAN Pain Pain Assessment Grid Pain 1 Location : Rectal Intensity : 6 Time Pattern : Constant Quality : Sharp, Other: itching Alleviating Factors : Cold therapy, Medication, Rest Interventions : Cold, Medications, Repositioning, Rest LUDMILA SOLITARIO RN - 06/16/2016 9:13 LIBRARY CIRCULATION TECHNICIAN Gastrointestinal GI Patient Stated Symptoms : None Abdomen Description : Flat Abdomen Palpation : Soft Bowel Movement Last Date : 06/15/2016 LIBRARY CIRCULATION TECHNICIAN Bowel Sounds All Quadrants : Present GI Detailed Assessment : Yes LUDMILA SOLITARIO RN - 06/16/2016 9:13 LIBRARY CIRCULATION TECHNICIAN GI Detailed GI Note : upon rectal visualization, patient noted to have nonbleeding skin tags, visible suture, nodrainage. LUDMILA SOLITARIO RN - 06/16/2016 10:35 LIBRARY CIRCULATION TECHNICIAN Nutrition Appetite : Good Eating Difficulties : None LUDMILA SOLITARIO RN - 06/16/2016 9:13 LIBRARY CIRCULATION TECHNICIAN Genitourinary Patient Stated Symptoms : None Urinary Elimination : Voiding, no difficulties Urine Color : Yellow Urine Description : Clear Urine Odor : Odorless LUDMILA SOLITARIO RN - 06/16/2016 9:13 LIBRARY CIRCULATION TECHNICIAN Integumentary Integumentary Patient Stated Symptoms : None Skin Turgor : Elastic Skin Integrity : Intact Skin Color : Normal for ethnicity Skin Description : Normal Skin Temperature : Warm LUDMILA SOLITARIO RN - 06/16/2016 9:13 LIBRARY CIRCULATION TECHNICIAN Incision/Wound Incision/Wound Care Grid Activity : Assessed Wound Type : Surgical incision Location : Other: rectum Description : Well healed Drainage : None LUDMILA SOLITARIO RN - 06/16/2016 9:13 LIBRARY CIRCULATION TECHNICIAN Lázaro Sensory Perception Lázaro : No impairment Moisture Lázaro : Rarely moist Activity Lázaro : Walks frequently Mobility Lázaro : No limitations Nutrition Lázaro : Adequate Friction and Shear Lázaro : No apparent problem Lázaro Score : 22 LUDMILA SOLITARIO RN - 06/16/2016 9:13 LIBRARY CIRCULATION TECHNICIAN Musculoskeletal Musculoskeletal Patient Stated Symptoms : None Activity Tolerance : Minimal distress LUDMILA SOLITARIO RN - 06/16/2016 9:13 LIBRARY CIRCULATION TECHNICIAN Peripheral IV Peripheral IV Assess/Intervention Grid Peripheral IV #1 Peripheral IV #2 IV Activity : Assessment Removal : Catheter intact Date of Insertion : 06/15/2016 LIBRARY CIRCULATION TECHNICIAN 06/15/2016 LIBRARY CIRCULATION TECHNICIAN Discontinued Date : 06/15/2016 LIBRARY CIRCULATION TECHNICIAN IV Site : Antecubital Forearm Laterality : Right Right Catheter Size : 20 20 Catheter Type : Over the needle Site Condition : No complications Drainage Description : None Infiltration Score : 0 Phlebitis Score : 0 Dressing/ Activity : Dry, Intact, Transparent Flow/ Patency : No complications LUDMILA SOLITARIO RN- 06/16/2016 9:13 LIBRARY CIRCULATION TECHNICIAN LUDMILA SOLITARIO RN - 06/16/2016 9:13 LIBRARY CIRCULATION TECHNICIAN Falls Assessment Fall Injury Risk History of Falls : No Patient at Risk for Falls : No Fall Injury Risk Factors : None of the below Risk Factors Patient has increased Fall Injury Risk : No LUDMILA SOLITARIO RN - 06/16/2016 9:13 LIBRARY CIRCULATION TECHNICIAN Hendrich II Fall Risk Confusion/Disorientation Hendrich : No Depression Fall Risk Hendrich : No Altered Elimination Fall Risk Hendrich : No Dizziness/Vertigo Fall Risk Hendrich : No Gender, Male Fall Risk Hendrich : No Prescribed Antiepileptics Hendrich : No Prescribed Benzodiazepines Hendrich : No Rising From Chair Fall Risk Hendrich : Able to rise in a single movement, no loss of balance with steps Fall Risk Score Hendrich II : 0 LUDMILA SOLITARIO RN - 06/16/2016 9:13 LIBRARY CIRCULATION TECHNICIAN Safe Patient Handling Safe Pt Handling Independent : Yes - No equipment needed Safe Pt Handling Equipment Rec : No Equipment Needed Repositioning Device Recommended : No LUDMILA SOLITARIO RN - 06/16/2016 9:13 LIBRARY CIRCULATION TECHNICIAN Education General Patient Education Powergrid Topics : Disease process, Medication dosage, route, scheduling, Pain Management, Plan of care, Smoking cessation, Use of pain scale(s) Individuals Taught : Patient, Parent Barriers to Learning : Acuity of Illness Teaching Method : Explanation Teaching Evaluation : Needs reinforcement, Verbalizes understanding LUDMILA SOLITARIO RN - 06/16/2016 9:13 LIBRARY CIRCULATION TECHNICIAN Source: [facility] POWERCHART Document Id: [id number] LIBRARY CIRCULATION TECHNICIAN!3 ARY CIRCULATION TECHNICIAN Miscellaneous - Hermilo Esteves R.N. - 06/16/2016 6:00 AM CST Adult Activities of Daily Living Adult Activities of Daily Living Entered On: 06/16/2016 6:08 LIBRARY CIRCULATION TECHNICIAN Performed On: 06/16/2016 6:00 LIBRARY CIRCULATION TECHNICIAN by HERMILO ESTEVES I RN ADLs I Patient Position : Elevate head of bed 45 degrees, Semi-Prince's Activity Status ADL : Bathroom privileges Activity Assistance : Independent Assistive Device : None HERMILO ESTEVES I RN - 06/16/2016 6:04 LIBRARY CIRCULATION TECHNICIAN ADLs II Hygiene Assistance Grid Back Rub : Independent Bed Bath : Independent Foot Care : Independent Hair Care : Independent Oral Care : Independent Yoselin Care : Independent Shave : Independent Shower : Independent Tub Bath/[place]irlpool : Independent Antimicrobial Wash : Independent Upper Body Dressing(Clothing) : Independent Lower Body Dressing(Clothing) : Independent HERMILO ESTEVES I RN - 06/16/2016 6:04 LIBRARY CIRCULATION TECHNICIAN Elimination Assistance Offered Q2H : Independent Bowel Movement Last Date : 06/15/2016 LIBRARY CIRCULATION TECHNICIAN Standard Safety : Bed in low position, Call device within reach, ID band check, Non-Slip footwear, Rounds every 1 hour HERMILO ESTEVES I RN - 06/16/2016 6:04 LIBRARY CIRCULATION TECHNICIAN I&O Oral Intake : 400 mL Incont/BR : 6 HERMILO ESTEVES I RN - 06/16/2016 6:04 LIBRARY CIRCULATION TECHNICIAN Source: [facility] POWERCHART Document Id: [id number] LIBRARY CIRCULATION TECHNICIAN!26 ARY CIRCULATION TECHNICIAN Miscellaneous - Hermilo Esteves R.N. - 06/16/2016 12:00 AM CST Adult Ongoing Assessment Adult Ongoing Assessment Entered On: 06/16/2016 2:30 LIBRARY CIRCULATION TECHNICIAN Performed On: 06/16/2016 0:00 LIBRARY CIRCULATION TECHNICIAN by HERMILO ESTEVES I RN Respiratory Respiratory Patient Stated Symptoms : None Respirations : Unlabored Distress : None Respiratory Pattern : Regular All Lobes Breath Sounds : Clear Cough : None HERMILO ESTEVES RN - 06/16/2016 2:25 LIBRARY CIRCULATION TECHNICIAN Cardiovascular CV Patient Stated Symptoms : None Antiembolism Device Yes/No : Yes Skin Color : Normal for ethnicity Skin Description : Normal Skin Temperature : Warm Activity Tolerance : Without distress HERMILO ESTEVES RN - 06/16/2016 2:25 LIBRARY CIRCULATION TECHNICIAN Antiembolism Device Antiembolism Device : Sequential Compression Device HERMILO ESTEVES RN 06/16/2016 2:25 LIBRARY CIRCULATION TECHNICIAN Neurological Neuro Patient Stated Symptoms : None Orientation : Oriented x 3 Level of Consciousness : Alert Gait : Steady Last Well Time Known : Not applicable HERMILO ESTEVES RN - 06/16/2016 2:25 LIBRARY CIRCULATION TECHNICIAN Psycho/Emotional Affect/Behavior : Calm, Cooperative Pain Symptoms : Yes HERMILO ESTEVES RN 06/16/2016 2:25 LIBRARY CIRCULATION TECHNICIAN Coping Grid Identifies effective strategies : Yes Uses effective strategies : Yes Reports increase in psychological comfort : Yes Indicates sense of control : Yes Stressors perceived within control : Yes Stable mood with appropriate affect : Yes Behaviors indicate use of coping mechanism : Yes Family supportive and involved in care : Yes Values/Beliefs incorporated appropriately : Yes HERMILO ESTEVES RN 06/16/2016 2:25 LIBRARY CIRCULATION TECHNICIAN Safety Grid Vision, Hearing, Mobility Adequate to Meet Safety Needs : Yes HERMILO ESTEVES RN 06/16/2016 2:25 LIBRARY CIRCULATION TECHNICIAN Pain Scale Pain Scale Verbal 0-10 : Open HERMILO ESTEVES RN 06/16/2016 2:25 LIBRARY CIRCULATION TECHNICIAN Pain Pain Assessment Grid Pain 1 Location : Rectal Intensity : 7 HERMILO ESTEVES RN 06/16/2016 2:25 LIBRARY CIRCULATION TECHNICIAN Gastrointestinal GI Patient Stated Symptoms : Abdominal pain Bowel Movement Last Date : 06/15/2016 LIBRARY CIRCULATION TECHNICIAN Bowel Sounds All Quadrants : Present HERMILO ESTEVES RN 06/16/2016 2:25 LIBRARY CIRCULATION TECHNICIAN Genitourinary Patient Stated Symptoms : None Urinary Elimination : Voiding with difficulties HERMILO ESTEVES RN 06/16/2016 2:25 LIBRARY CIRCULATION TECHNICIAN Integumentary Integumentary Patient Stated Symptoms : None Skin Turgor : Elastic Skin Integrity : Intact Mucous Membrane Color : [place] Mucous Membrane Description : Moist Skin Color : Normal for ethnicity Skin Description : Normal Skin Temperature : Warm HREMILO ESTEVES RN - 06/16/2016 2:25 LIBRARY CIRCULATION TECHNICIAN Lázaro Sensory Perception Lázaro : No impairment Moisture Lázaro : Rarely moist Activity Lázaro : Walks occasionally Mobility Lázaro : No limitations Nutrition Lázaro : Adequate Friction and Shear Lázaro : No apparent problem Lázaro Score : 21 LINN HERMILO I RN - 06/16/2016 2:25 LIBRARY CIRCULATION TECHNICIAN Musculoskeletal Musculoskeletal Patient Stated Symptoms : None Activity Tolerance : Minimal distress HERMILO ESTEVES I RN - 06/16/2016 2:25 LIBRARY CIRCULATION TECHNICIAN Peripheral IV Peripheral IV Assess/Intervention Grid Peripheral IV #1 Peripheral IV #2 IV Activity : Assessment Removal : Catheter intact Date of Insertion : 06/15/2016 LIBRARY CIRCULATION TECHNICIAN 06/15/2016 LIBRARY CIRCULATION TECHNICIAN Discontinued Date : 06/15/2016 LIBRARY CIRCULATION TECHNICIAN IV Site : Antecubital Forearm Laterality : Right Right Catheter Size : 20 20 Catheter Type : Over the needle HERMILO ESTEVES I RN - 06/16/2016 2:25 LIBRARY CIRCULATION TECHNICIAN HERMILO ESTEVES I RN - 06/16/2016 2:25 LIBRARY CIRCULATION TECHNICIAN Falls Assessment Fall Injury Risk History of Falls : No Patient at Risk for Falls : No Fall Injury Risk Factors : None of the below Risk Factors Patient has increased Fall Injury Risk : No HERMILO ESTEVES I RN - 06/16/2016 2:25 LIBRARY CIRCULATION TECHNICIAN Hendrich II Fall Risk Confusion/Disorientation Hendrich : No Depression Fall Risk Hendrich : No Altered Elimination Fall Risk Hendrich : No Dizziness/Vertigo Fall Risk Hendrich : No Gender, Male Fall Risk Hendrich : No Prescribed Antiepileptics Hendrich : No Prescribed Benzodiazepines Hendrich : No Rising From Chair Fall Risk Hendrich : Able to rise in a single movement, no loss of balance with steps Fall Risk Score Hendrich II : 0 HERMILO ESTEVES I RN - 06/16/2016 2:25 LIBRARY CIRCULATION TECHNICIAN Safe Patient Handling Safe Pt Handling Independent : Yes - No equipment needed Safe Pt Handling Equipment Rec : No Equipment Needed HERMILO ESTEVES I RN - 06/16/2016 2:25 LIBRARY CIRCULATION TECHNICIAN Education General Patient Education Powergrid Topics : Activity limitations/expectations, Medication dosage, route, scheduling, Plan of care Individuals Taught : Patient Barriers to Learning : None evident Teaching Method : Explanation Teaching Evaluation : Needs reinforcement, Verbalizes understanding HERMILO ESTEVES I RN - 06/16/2016 2:25 LIBRARY CIRCULATION TECHNICIAN Source: [facility] POWERCHART Document Id: [id number] LIBRARY CIRCULATION TECHNICIAN!114 ARY CIRCULATION TECHNICIAN Hermilo Pennington R.N. - 06/15/2016 10:00 PM CST Adult Activities of Daily Living Adult Activities of Daily Living Entered On: 06/15/2016 22:42 LIBRARY CIRCULATION TECHNICIAN Performed On: 06/15/2016 22:00 LIBRARY CIRCULATION TECHNICIAN by HERMILO ESTEVES RN ADLs I Patient Position : Lying on left side Activity Status ADL : Ambulating in room Activity Assistance : Stand-by assistance HERMILO ESTEVES I RN - 06/15/2016 22:42 LIBRARY CIRCULATION TECHNICIAN ADLs II Hygiene Assistance Grid Back Rub : Independent Bed Bath : Independent Foot Care : Independent Hair Care : Independent Oral Care : Independent Yoselin Care : Independent Shave : Independent Shower : Independent Tub Bath/Whirlpool : Independent Antimicrobial Wash : Independent Upper Body Dressing(Clothing) : Independent Lower Body Dressing(Clothing) : Independent HERMILO ESTEVES I RN - 06/15/2016 22:42 LIBRARY CIRCULATION TECHNICIAN Bowel Movement Last Date : 06/15/2016 LIBRARY CIRCULATION TECHNICIAN Standard Safety : Bed in low position, ID band check, Non-Slip footwear, Rounds every 1 hour HERMILO ESTEVES I RN - 06/15/2016 22:42 LIBRARY CIRCULATION TECHNICIAN Source: [facility] POWERCHART Document Id: [id number] LIBRARY CIRCULATION TECHNICIAN!21 ARY CIRCULATION TECHNICIAN Hermilo Pennington R.N. - 06/15/2016 9:44 PM CST Adult Admission Assessment Adult Admission Assessment Entered On: 06/15/2016 21:48 LIBRARY CIRCULATION TECHNICIAN Performed On: 06/15/2016 21:44 LIBRARY CIRCULATION TECHNICIAN by HERMILO ESTEVES RN Respiratory Respiratory Patient Stated Symptoms : None Respirations : Unlabored Distress : None All Lobes Breath Sounds : Clear HERMILO ESTEVES I RN - 06/15/2016 21:44 LIBRARY CIRCULATION TECHNICIAN Cardiovascular CV Patient Stated Symptoms : None Antiembolism Device Yes/No : Yes Nail Bed Color : [place] Capillary Refill : Less than 2 seconds Edema Assessment : No Skin Color : Normal for ethnicity Skin Description : Normal Skin Temperature : Warm Activity Tolerance : Minimal distress HERMILO ESTEVES Sylvia GROVES 06/15/2016 21:44 LIBRARY CIRCULATION TECHNICIAN Antiembolism Device Antiembolism Device : Sequential Compression Device Antiembolism Device Laterality : Bilateral HERMILO ESTEVES Sylvia GROVES 06/15/2016 21:44 LIBRARY CIRCULATION TECHNICIAN Neurological Neuro Patient Stated Symptoms : None Orientation : Oriented x 3 Level of Consciousness : Alert Gait : Steady Swallowing Difficulty/Aspiration Risk : None Last Well Time Known : Not applicable IVETTEMARTINHERMILO PHILLIPS Sylvia GROVES 06/15/2016 21:44 LIBRARY CIRCULATION TECHNICIAN Psycho/Emotional Pain Symptoms : Yes LINN HERMILO Sylvia GROVES 06/15/2016 21:44 LIBRARY CIRCULATION TECHNICIAN Coping Grid Identifies effective strategies : Yes Uses effective strategies : Yes Reports increase in psychological comfort : Yes Indicates sense of control : Yes Stressors perceived within control : Yes Stable mood with appropriate affect : Yes Behaviors indicate use of coping mechanism : Yes Family supportive and involved in care : Yes Values/Beliefs incorporated appropriately : Yes LINNHERMILO Sylvia GROVES 06/15/2016 21:44 LIBRARY CIRCULATION TECHNICIAN Safety Grid Vision, Hearing, Mobility Adequate to Meet Safety Needs : Yes LINNHERMILO Sylvia GROVES 06/15/2016 21:44 LIBRARY CIRCULATION TECHNICIAN Pain Scale Pain Scale Verbal 0-10 : Open LINNHERMILO Sylvia 06/15/2016 21:44 LIBRARY CIRCULATION TECHNICIAN Pain Pain Assessment Grid Pain 1 Location : Rectal Intensity : 7 LINNHERMILO Sylvia GROVES 06/15/2016 21:44 LIBRARY CIRCULATION TECHNICIAN Gastrointestinal GI Patient Stated Symptoms : Abdominal pain Abdomen Palpation : Tender Bowel Movement Last Date : 06/15/2016 LIBRARY CIRCULATION TECHNICIAN Bowel Sounds All Quadrants : Present FELIPAHERMILO PHILLIPS Sylvia GROVES 06/15/2016 21:44 LIBRARY CIRCULATION TECHNICIAN Genitourinary Patient Stated Symptoms : None Urinary Elimination : Voiding, no difficulties LINN HERMILO Sylvia GROVES 06/15/2016 21:44 LIBRARY CIRCULATION TECHNICIAN Integumentary Integumentary Patient Stated Symptoms : None Skin Turgor : Elastic Skin Integrity : Intact Mucous Membrane Color : [place] Mucous Membrane Description : Moist Skin Color : Normal for ethnicity Skin Description : Normal Skin Temperature : Warm FELIPAHERMILO PHILLIPS Sylvia GROVES 06/15/2016 21:44 LIBRARY CIRCULATION TECHNICIAN Lázaro Sensory Perception Lázaro : No impairment Moisture Lázaro : Rarely moist Activity Lázaro : Walks occasionally Mobility Lázaro : Slightly limited Nutrition Lázaro : Adequate Friction and Shear Lázaro : No apparent problem Lázaro Score : 20 HERMILO ESTEVES I RN - 06/15/2016 21:44 LIBRARY CIRCULATION TECHNICIAN Musculoskeletal Musculoskeletal Patient Stated Symptoms : None Activity Tolerance : Minimal distress HERMILO ESTEVES I RN - 06/15/2016 21:44 LIBRARY CIRCULATION TECHNICIAN Peripheral IV Peripheral IV Assess/Intervention Grid Peripheral IV #1 IV Activity : Assessment Date of Insertion : 06/15/2016 LIBRARY CIRCULATION TECHNICIAN IV Site : Antecubital Laterality : Right Catheter Size : 20 FELIPAALANHERMILO I RN - 06/15/2016 21:44 LIBRARY CIRCULATION TECHNICIAN Falls Assessment Fall Injury Risk History of Falls : No Patient at Risk for Falls : No Patient has increased Fall Injury Risk : No HERMILO ESTEVES I RN - 06/15/2016 21:44 LIBRARY CIRCULATION TECHNICIAN Hendrich II Fall Risk Confusion/Disorientation Hendrich : No Depression Fall Risk Hendrich : No Altered Elimination Fall Risk Hendrich : No Dizziness/Vertigo Fall Risk Hendrich : No Gender, Male Fall Risk Hendrich : No Prescribed Antiepileptics Hendrich : No Prescribed Benzodiazepines Hendrich : No Rising From Chair Fall Risk Hendrich : Pushes up, successful in one attempt Fall Risk Score Hendrich II : 1 HERMILO ESTEVES I RN - 06/15/2016 21:44 LIBRARY CIRCULATION TECHNICIAN Safe Patient Handling Safe Pt Handling Independent : Yes - No equipment needed Safe Pt Handling Equipment Rec : No Equipment Needed HERMILO ESTEVES I RN - 06/15/2016 21:44 LIBRARY CIRCULATION TECHNICIAN [facility] Document Id: [id number] LIBRARY CIRCULATION TECHNICIAN!100 ARY CIRCULATION TECHNICIAN Miscellaneous - Toribio Cooley R.N. - 06/15/2016 9:13 PM CST Adult Admission History Adult Admission History Entered On: 06/15/2016 21:20 LIBRARY CIRCULATION TECHNICIAN Performed On: 06/15/2016 21:13 LIBRARY CIRCULATION TECHNICIAN by TORIBIO COOLEY RN General Info Preferred Name : Myrna Admitted From : Non-Health Care Facility Point of Origin Mode of Arrival : Bed Present in Room During Exam/Procedure : Alone Chief Complaint : hemorhoid pain Preferred Communication Mode : Verbal Information Given By : Patient Languages : Argentine Have you received chemotherapy in last 48 hours? : No Is Patient Female and 13-50 no hysterectomy : Yes Status : Patient denies Are you ? : No TORIBIO COOLEY RN - 06/15/2016 21:13 LIBRARY CIRCULATION TECHNICIAN Nutrition Have you recently lost weight without trying? : No Decreased Appetite Nutrition : No Tube Feedings or Parenteral Nutrition : No MST Score : 0 Home Diet : Regular Appetite : Good Eating Difficulties : None Feeding Ability : Complete independence TORIBIO COOLEY RN - 06/15/2016 21:13 LIBRARY CIRCULATION TECHNICIAN Home Environment Current Daily Living Assistance : None Living Situation : Home independently Home Equipment : None Sensory Deficits : None Mobility Assistance Prior to Admission : Independent Current Home Treatments : None Professional Skilled Services : None Special Services and Community Resources : None TORIBIO COOLEY RN - 06/15/2016 21:13 LIBRARY CIRCULATION TECHNICIAN Dependent Habits Alcohol Use : Yes TORIBIO COOLEY RN - 06/15/2016 21:13 LIBRARY CIRCULATION TECHNICIAN Caffeine Use Grid Caffeine Use : None TORIBIO COOLEY RN - 06/15/2016 21:13 LIBRARY CIRCULATION TECHNICIAN Recreational Drug Use Grid Drug Use : Current Type : Alcohol Route : Oral Frequency : Other: TWICE A MONTH TORIBIO COOLEY RN - 06/15/2016 21:13 LIBRARY CIRCULATION TECHNICIAN AUDIT Tool How Often Do You Have A Drink : 2 to 4 times a month How Many Drinks in a Day When Drinking : 1 or 2 Six or More Drinks On One Occassion : Never Audit Phase 1 Score : 2 TORIBIO COOLEY RN - 06/15/2016 21:13 LIBRARY CIRCULATION TECHNICIAN Psychosocial Adult Domestic Abuse Concerns : None Concerns About Family Members at Home : No Emotional Support Available : Yes Caregiver Post Hospital Care : Yes Chronic/Terminal Illness Freq Visits : No Financial Concerns Regarding Hospitalization/Discharge : No Behavioral Health Screen/Safety Assmt : No Coping : Effective Stressors : Condition Christianity Preference : No Christianity Affiliation TORIBIO COOLEY RN - 06/15/2016 21:13 LIBRARY CIRCULATION TECHNICIAN Advance Directive Advanced Directives : No Advance Directive Additional Information : No TORIBIO COOLEY RN - 06/15/2016 21:13 LIBRARY CIRCULATION TECHNICIAN Educ Needs Patient/Family Education Needs : Pain management, Plan of care TORIBIO COOLEY RN - 06/15/2016 21:13 LIBRARY CIRCULATION TECHNICIAN Learning Style Preference Adult Grid Patient : Demonstration, Printed materials, Verbal explanation, Video/Educational TV Family : Demonstration, Printed materials, Verbal explanation, Video/Educational TV TORIBIO COOLEY RN - 06/15/2016 21:13 LIBRARY CIRCULATION TECHNICIAN Source: [facility] POWERCHART Document Id: [id number] LIBRARY CIRCULATION TECHNICIAN!67 ARY CIRCULATION TECHNICIAN Miscellaneous - Toribio Cooley REmekaN. - 06/15/2016 9:03 PM CST Basic Admission Information Document Has Been Updated Basic Admission Information Entered On: 06/15/2016 21:13 LIBRARY CIRCULATION TECHNICIAN Performed On: 06/15/2016 21:03 LIBRARY CIRCULATION TECHNICIAN by TORIBIO COOLEY RN Vital Signs Temperature Core : 37.0 DegC(Converted to: 98.6 DegF) Peripheral Pulse Rate : 92 /min Respiratory Rate : 16 /min Systolic Blood Pressure : 114 mmHg Diastolic Blood Pressure : 72 mmHg NIBP Mean : 86 mmHg BP Location : Right upper extremity SpO2 : 96 % Oxygen Saturation Monitoring Frequency : Intermittent Oxygen Therapy : Room air Height : 170 cm(Converted to: 5 ft 7 inch(es)) Actual Weight : 81.4 kg Actual Weight Conversion to Pounds : 179.08 lb Weight Source : Bed scale Prosthetic device on during patient weight : No Height Source : Estimated Body Mass Index : 28.17 kg/m2 TORIBIO COOLEY RN - 06/15/2016 21:03 LIBRARY CIRCULATION TECHNICIAN Allergy Rule (As Of: 06/15/2016 21:13:25 LIBRARY CIRCULATION TECHNICIAN) Allergies (Active) NKA Estimated Onset Date: Unspecified ; Created By: KATIE BRUNNER MD; Reaction Status: Active ; Category: Drug ; Substance: NKA ; Type: Allergy ; Updated By: KATIE BRUNNER MD; Reviewed Date: 06/15/2016 17:35 LIBRARY CIRCULATION TECHNICIAN Valuables/Belongings Valuables/Belongings Grid Valuables at Bedside Clothes, Patient Valuables : Jacket, Pants, Shirt, Shoes, Undergarments, Other: t-shirt Electronic Devices : Cell phone Jewelry : Bracelet, Wedding band, Other: nose stud Monetary Items : Purse Personal Devices : None TORIBIO COOLEY RN - 06/15/2016 21:03 LIBRARY CIRCULATION TECHNICIAN Room Orientation/Facility Policy Reviewed : Yes Belongings Sent Home With : spouse will take purse home Home Medication Disposition : None brought in with patient TORIBIO COOLEY RN - 06/15/2016 21:03 LIBRARY CIRCULATION TECHNICIAN Source: [facility] [employer] Document Id: [id number] LIBRARY CIRCULATION TECHNICIAN!30 ARY CIRCULATION TECHNICIAN Lyssacellaneous - Frances Vásquez R.N. - 06/15/2016 8:04 PM CST Valuables/Belongings Valuables/Belongings Entered On: 06/15/2016 20:04 LIBRARY CIRCULATION TECHNICIAN Performed On: 06/15/2016 20:04 LIBRARY CIRCULATION TECHNICIAN by FRANCES VÁSQUEZ RN Valuables/Belongings Belongings Sent Home With : all belongings sent with patient FRANCES VÁSQUEZ RN - 06/15/2016 20:04 LIBRARY CIRCULATION TECHNICIAN Source: [employer] Document Id: [id number] LIBRARY CIRCULATION TECHNICIAN!3 ARY CIRCULATION TECHNICIAN Olga - Frances Vásquez R.N. - 06/15/2016 7:00 PM CST Communication Note Communication Note Entered On: 06/15/2016 19:02 LIBRARY CIRCULATION TECHNICIAN Performed On: 06/15/2016 19:00 LIBRARY CIRCULATION TECHNICIAN by FRANCES VÁSQUEZ RN Communication Subject of Note : Other: patient note Assessment Communication Note : surgeon here with patient FRANCES VÁSQUEZ RN - 06/15/2016 19:00 LIBRARY CIRCULATION TECHNICIAN Source: [facility] [employer] Document Id: [id number] LIBRARY CIRCULATION TECHNICIAN!4 ARY CIRCULATION TECHNICIAN documented in this encounter Plan of Treatment Not on filedocumented as of this encounter Procedures Procedure Name Priority Date/Time Associated Diagnosis Comme nts AUTOMATED Routine 06/15/2016 7:16 PM Results f or this DIFFERENTIAL, B LIBRARY CIRCULATION TECHNICIAN procedure ar e in the results section. CBC WITH Routine 06/15/2016 7:16 PM Results f or this DIFFERENTIAL, B LIBRARY CIRCULATION TECHNICIAN procedure ar e in the results section. CT ABDOMEN PELVIS Routine 06/15/2016 7:05 PM Resu lts for this WITH IV CONTRAST LIBRARY CIRCULATION TECHNICIAN procedure a re in the results section. documented in this encounter Results Automated Differential (06/15/2016 7:16 PM LIBRARY CIRCULATION TECHNICIAN) P athologist Signature Absolute 4.36 1.70 - POWERCHART Neutrophils 7.00 109L Lymphocytes 1.79 0.90 - POWERCHART 2.90 X109L Monocytes 0.42 0.30 - POWERCHART 0.90 X109L Eosinophils 0.22 0.05 - POWERCHART 0.50 X109L Absolute 0.02 0.00 - POWERCHART Basophil 0.30 X109L Specimen Anatomical Collection Method Collection Time Receive d Time (Source) Location / / Volume Laterality Blood 06/15/2016 7:16 PM 7 7:16 LIBRARY CIRCULATION TECHNICIAN PM LIBRARY CIRCULATION TECHNICIAN Maylin Moore D.O. LAB BLOOD ADD-ON Performing Organization Address City/State/ZIP Code Phon e Number POWERCHART CBC with Differential (06/15/2016 7:16 PM LIBRARY CIRCULATION TECHNICIAN) P athologist Signature Leukocytes 6.8 3.4 - 10.5 POWERCHART X109L Erythrocytes 4.62 3.90 - 5.03 POWERCHART [id number] Hemoglobin 14.2 12.0 - 15.5 POWERCHART GDL Hematocrit 42.3 34.9 - 44.5 POWERCHART MCV 91.6 82.0 - 98.0 POWERCHART FL HX RDW 13.1 11.9 - 15.5 POWERCHART Platelet Count 205 150 - 450 POWERCHART X109L Specimen (Source) Anatomical Collection Method Collection Time Re ceived Time Location / / Volume Laterality Blood 06/15/2016 7:16 PM LIBRARY CIRCULATION TECHNICIAN Maylin Moore D.O. LAB BLOOD ADD-ON Performing Organization Address City/State/ZIP Code Phon e Number POWERCHART CT Abdomen Pelvis with IV Contrast (06/15/2016 7:05 PM LIBRARY CIRCULATION TECHNICIAN) Anatomical Region Laterality Modality Abdomen, Pelvis N/A Computed Tomography Specimen (Source) Anatomical Collection Method Collection Time Re ceived Time Location / / Volume Laterality 06/15/2016 7:05 PM LIBRARY CIRCULATION TECHNICIAN Addenda Addendum by Provider, Lupe Villanueva o laurie 06/15/2016 7:05 PM LIBRARY CIRCULATION TECHNICIAN RAD^^^AU CT Abdomen/Pelvis w/ contrast 06/15/2016 19:05:00 Impressions 06/16/2016 7:54 AM LIBRARY CIRCULATION TECHNICIAN No acute etiology identified for pelvic pain. Narrative 06/16/2016 7:54 AM LIBRARY CIRCULATION TECHNICIAN EXAM: CT Abdomen/Pelvis w/ contrast INDICATION: pelvic pain s/p hemorrhoidec krystin COMPARISON: 03/05/2015. FINDINGS: Cholecystectomy. Slight promin ence of the intrahepatic and extrahepatic bile ducts likely due to po stcholecystectomy state. Liver, spleen, adrenal glands, and pancr eas are normal in appearance. Normal appendix. No bowel obstruction. N o intra-abdominal free air or fluid. No lymphadenopathy. Patchy opacit ies in the right lower lobe have resolved since 03/05/2015. Approxima tely 5 mm nodular opacity right middle lobe (series 3, image 3). T here are no follow-up recommendations for patients less than 3 5 years of age. Diffuse disc bulges at L4-5 and L5-S1. Remainder nega tive or unchanged. Virtual radiologic preliminary radiology report reviewed. Procedure Note Ngoc Huddleston M.D. / Provider, Joao murillo M.D. - 10/19/2016 EXAM: CT Abdomen/Pelvis w/ contrast INDICATION: pelvic pain s/p hemorrhoidec krystin COMPARISON: 03/05/2015. FINDINGS: Cholecystectomy. Slight promin ence of the intrahepatic and extrahepatic bile ducts likely due to po stcholecystectomy state. Liver, spleen, adrenal glands, and pancr eas are normal in appearance. Normal appendix. No bowel obstruction. N o intra-abdominal free air or fluid. No lymphadenopathy. Patchy opacit ies in the right lower lobe have resolved since 03/05/2015. Approxima tely 5 mm nodular opacity right middle lobe (series 3, image 3). T here are no follow-up recommendations for patients less than 3 5 years of age. Diffuse disc bulges at L4-5 and L5-S1. Remainder nega tive or unchanged. Virtual radiologic preliminary radiology report reviewed. IMPRESSION: No acute etiology identified for pelvic pain. Vianney M Jerardo R.N. IMG CT PROCEDURES documented in this encounter Visit Diagnoses Not on filedocumented in this encounter
--- OUTSIDE RECORDS SUMMARY | 2022-02-03 23:57 | XMS_ITS | Encounter Summary ---
:1985 Author Organization [facility] Address [address] [place] [address] Care Team Providers Name Role Phone Unavailable Primary Care Provider Unavailable Encounter Details Date Type Department Care Team Description 11/24/2015 Hospital Encounter HX [facility] [address] Shi M.D. [address] [place] [phone] (Wo rk) Social History Tobacco Use Types Packs/Day Years Used Date Smoking Tobacco: Never Assessed Sex Assigned at Date Recorded Not on file documented as of this encounter Last Filed Vital Signs Vital Sign Reading Time Taken Comments Blood Pressure 107/67 11/24/2015 7:54 PM CDT Pulse 74 11/24/2015 7:00 PM CDT Temperature - - Respiratory Rate 16 11/24/2015 7:54 PM CDT Oxygen Saturation - - Inhaled Oxygen Concentration - - Weight - - Height - - Body Mass Index - - documented in this encounter Discharge Summaries Devi Raza R.N. - 11/24/2015 8:08 PM CDT ED Depart Summary [facility] Emergency Department / Urgent Care Clinical Discharge Summary PERSON INFORMATION Name SILVIA BLANCHARD Age 30 Years 1985 12:00 AM Sex Female Language Kosovan PCP SOFIE VÁZQUEZ MD Marital Status Visit Id Visit Reason Back pain; back pain Specialty Enc Type Emergency Med Service Emergency Medicine Referred by [facility] ED/UC Discharge 11/24/2015 8:08 PM Tracking Id [id number] Checkout 11/24/2015 8:08 PM Checkin 11/24/2015 5:47 PM Acuity 4 -Less Urgent Dispo Type * Discharged to Home or Self Care Arrival 11/24/2015 5:47 PM Reg Status Complete LOS 000 02:21 Address: [address] [place] [phone] Comment: PROVIDER INFORMATION Provider Role Provider Contact Time YAMINI CERDA LEAD GENERATION REPRESENTATIVE Nurse 11/24/15 17:49 L[address] SHI MD ED Provider 11/24/15 17:53 RENÉ BOLDEN RN ED Nurse 11/24/15 19:18 MAYLIN MOORE DO ED Provider 11/24/15 19:57 DIAGNOSIS Comment: PATIENT EDUCATION INFORMATION Instructions: BACK AND NECK PAIN, General Follow up: With: Address: When: *Follow Up with Occupational Medicine Within 1 week Comments: Clinic will call to schedule this visit regarding your back pain Call in 3 days if you do not hear back. With: Address: When: SOFIE VÁZQUEZ [address] [place] [phone] Business (1) Within 1 week Comments: If your pain control goals are not met by Occupational Health in the next week, then call your doctor for additional treatment or testing options. Return to the ED sooner if you develop numbness or weakness, fever, difficulty going to the bathroom, or other unexpected symptoms. Source: [facility] POWERCHART Document Id: [id number] Devi Raza R.N. - 11/24/2015 8:08 PM CDT ED Discharge Instructions [address] [address] Name: SILVIA BLANCHARD Date of : 1985 12:00 AM Visit Date: 11/24/2015 5:47 PM [facility] Number: [id number] Address: [address] [place] [phone] Primary Care Provider: SOFIE VÁZQUEZ MD IMPORTANT: [facility] in [place] would like to thank you for allowing us to assist youwith your healthcare needs. The following includes patient education materials and information regarding your injury/illness. Diagnosis: Follow-Up Instructions: With: Address: When: *Follow Up with Occupational Medicine Within 1 week Comments: Clinic will call to schedule this visit regarding your back pain Call in 3 days if you do not hear back. With: Address: When: SOFIE VÁZQUEZ [address] [place] [phone] Business (1) Within 1 week Comments: If your pain control goals are not met by Occupational Health in the next week, then call your doctor for additional treatment or testing options. Return to the ED sooner if you develop numbness or weakness, fever, difficulty going to the bathroom, or other unexpected symptoms. Your Upcoming Appointments: Date Time Location Provider 11/26/2015 13:10 AMADO Pradhan MD, [facility] Patient Education Materials: Neck/Back Pain [General] Both neck and back pain are usually caused by injury to the muscles or ligaments of the spine. Sometimes the disks that separate each bone of the spine may cause pain by putting pressure on a nearby nerve. Back and neck pain may appear after a sudden twisting/bending force (such as in a car accident),or sometimes after a simple awkward movement. In either case, muscle spasm is often present and addsto the pain. Acute neck and back pain usually gets better in one to two weeks. Pain related to disk disease, arthritis in the spinal joints or spinal stenosis (narrowing of the spinal canal) can become chronic and last for months or years. Home Care: ?? FOR NECK PAIN: Use a comfortable pillow that supports the head and keeps the spine in a neutral position. The position of the head should not be tilted forward or backward. ?? FOR BACK PAIN: You may need to stay in bed the first few days. But, as soon as possible, begin sitting or walking to avoid problems with prolonged bed rest (muscle weakness, worsening back stiffnessand pain, blood clots in the legs). ?? When in bed, try to find a position of comfort. A firm mattress is best. Try lying flat on your back with pillows under your knees. You can also try lying on your side with your knees bent up towards your chest and a pillow between your knees. ?? Avoid prolonged sitting. This puts more stress on the lower back than standing or walking. ?? During the first two days after injury, apply an ICE PACK to the painful area for 20 minutes every 2-4 hours. This will reduce swelling and pain. HEAT (hot shower, hot bath or heating pad) works well for muscle spasm. You can start with ice, then switch to heat after two days. Some patients feel best alternating ice and heat treatments. Use the one method that feels the best to you. ?? You may use acetaminophen (Tylenol) or ibuprofen (Motrin, Advil) to control pain, unless another pain medicine was prescribed. [NOTE: If you have chronic liver or kidney disease or ever had a stomach ulcer or GI bleeding, talk with your doctor before using these medicines.] ?? Be aware of safe lifting methods and do not lift anything over 15 pounds until all the pain is gone. Follow Up with your physician or this facility if your symptoms do not start to improve after one week. Physical therapy or further tests may be needed. [NOTE: If X-rays were taken, they will be reviewed by a radiologist. You will be notified of any newfindings that may affect your care.] Get Prompt Medical Attention if any of the following occur: ?? Pain becomes worse or spreads into your arms or legs ?? Weakness, numbness or pain in one or both arms or legs ?? Loss of bowel or bladder control ?? Numbness in the groin area ?? Difficulty walking ?? Fever of 100.4?F (38?C) or higher, or as directed by your healthcare provider ?? [id number] [place] [address]. All rights reserved. This information is not [...] if you dont have one. Go to [email or web address] and click on Create Your Account. Then, follow the directions to complete the online form. Youll be asked for your [facility] number which you can find at the top of this document. ED Tests and Procedures: Order Status Follow Up with Occupational Medicine Completed Discharge Prescriptions & Home Medications: Medication/Strength Dose Route Frequency Indications/Special Instructions/Comments/Notes lidocaine topical (lidocaine 5% topical ointment) 1 gordy Topical three times a day for 14 Days acetaminophen (acetaminophen 500 mg oral tablet) 1,000 mg Oral three times a day as needed for pain naproxen (naproxen 250 mg oral tablet) 500 mg Oral two times a day as needed for pain baclofen (baclofen 10 mg oral tablet) 10 mg Oral three times a day *omeprazole (omeprazole 40 mg oral delayed release capsule) 40 mg Oral once a day *polyethylene glycol 3350 with electrolytes (GoLYTELY oral powder for reconstitution) 240 mL Oral every 10 minutes *FLUoxetine (Prozac 10 mg oral tablet) 10 mg Oral once a day * You have let us know that you are not taking this medication as listed. Please talk with your primary care provider or the health care provider who prescribed the medication as soon as possible. Comment: Attention: If you have any medications [...] nurse or physician. Patient Signature or Responsible Green Party/Relationship Date Time Provider Signature Date Time [...] nurse or physician. Patient Signature or Responsible Green Party/Relationship Date Time Provider Signature Date Time This document has images extracted. Please consider using [employer] for all your patient education needs. Source: [facility] [employer] Document Id: [id number] documented in this encounter ED Notes Devi Raza R.N. - 11/24/2015 8:08 PM CDT ED Disposition Summary ED Disposition Summary Entered On: 11/24/2015 20:08 CDT Performed On: 11/24/2015 20:08 CDT by DEVI RAZA LEAD GENERATION REPRESENTATIVE Disposition Summary Present in Room During Exam/Procedure : Friend Mode of Discharge : Ambulatory Transportation : Private vehicle Discharge From ED With : Home Med List Printed Discharge Instructions Given to Patient : Yes Patient Status at Discharge from ED : Improved DEVI RAZA RN - 11/24/2015 20:08 CDT [facility] Document Id: [id number] CDT!8 Maylin Moore D.O. - 11/24/2015 7:26 PM CDT Addendum *ED Document Contains Addenda Patient: SILVIA BLANCHARD Age: 30 years Sex: Female : 1985 Author: MAYLIN MOORE DO Attachments: None Basic Information Addendum: Assumed care from: LANE SHI MD, Pertinent history: Patient is in need of additional medications, but would not be satisfied to be discharged after meds given thus far. Toradol 60 mg IM given 1 hour ago with 10 mg PO flexeril. She had reported taking Tylenol at work, but states that it was small tablets 400 mg (?ibuprofen) which was 3 to 4 hours ago. Of note, she has been a high frequency utilizer of the emergency department for care over the past year. She had received tramadol and oxycodone among other medications for pain relief from multiple EDproviders. Dr Shi would like her to have Vicodin tonight as the next level of pain relief, and theinjury pattern of lifting in course of normal duties would not require emergent imaging. . Medical Decision Making Documents reviewed:Emergency department records, prior records. Reexamination/ Reevaluation Interventions: Order Profile (Selected) Inpatient Orders Ordered HYDROcodone-acetaminophen 5 mg-325 mg oral tablet: 2 tab(s), PO, Once baclofen: 10 mg, 1 tab(s), PO, Once Completed Flexeril: 10 mg, PO, Once ketorolac: 60 mg, IM, Once lidocaine 5% topical film: 1 patch(es), Topical, Once Prescriptions Prescribed acetaminophen 500 mg oral tablet: 1,000 mg, 2 tab(s), PO, 3xDay, for 30 day(s), PRN: pain, 180 tab(s), 1 Refill(s) baclofen 10 mg oral tablet: 10 mg, PO, 3xDay, for 30 day(s), 90 tab(s), 1 Refill(s) lidocaine 5% topical ointment: 1 gordy, Topical, 3xDay, for 14 day(s), 50 gm, 1 Refill(s) naproxen 250 mg oral tablet: 500 mg, 2 tab(s), PO, 2xDay, for 30 day(s), PRN: pain, 120 tab(s), 1 Refill(s). Impression and Plan Diagnosis Acute back pain Plan Condition: Stable. Disposition: Discharged: to home. Patient was given the following educational materials: BACK AND NECK PAIN, General. Follow up with: *Follow Up with Occupational Medicine Within 1 week Clinic will call to schedule this visit regarding your back pain Call in 3 days if you do not hear back.; SOFIE VÁZQUEZ Within 1 week If your pain control goals are not met by Occupational Health in the next week, then call your doctor for additional treatment ortesting options. Return to the ED sooner if you develop numbness or weakness, fever, difficulty going to the bathroom, or other unexpected symptoms.. Counseled: Patient, Regarding diagnosis, Regarding treatment plan, Regarding prescription. Electronically Signed By: MAYLIN MOORE DO On: 11/26/2015 12:38 AM Source: [facility] POWERCHART Document Id: [id number]} René Bolden R.N. - 11/24/2015 7:21 PM CDT ED Pain Assessment ED Pain Assessment Entered On: 11/24/2015 19:21 CDT Performed On: 11/24/2015 19:21 CDT by RENÉ BOLDEN RN Pain Assessment Pain Symptoms : Yes RENÉ BOLDEN RN - 11/24/2015 19:21 CDT Pain Scale Pain Scale Verbal 0-10 : Open RENÉ BOLDEN RN - 11/24/2015 19:21 CDT Pain Pain Assessment Grid Pain 1 Location : Lower back Intensity : 8 RENÉ BOLDEN RN - 11/24/2015 19:21 CDT Source: [employer] Document Id: [id number] CDT!10 Yamini Cerda R.N. - 11/24/2015 6:42 PM CDT ED Nurse Reassess ED Nurse Reassess Entered On: 11/24/2015 18:42 CDT Performed On: 11/24/2015 18:42 CDT by YAMINI CERDA RN Pain Assessment Pain Symptoms : Yes YAMINI CERDA RN - 11/24/2015 18:42 CDT Musculoskeletal Reassess Musculoskeletal Note : Pt resting. States no change in pain at this time. Lidoderm patch applied to the lower back. at bedside. YAMINI CERDA RN - 11/24/2015 18:42 CDT Source: [employer] Document Id: [id number] CDT!5 Lane Shi M.D. - 11/24/2015 6:15 PM CDT Back pain Patient: SILVIA BLANCHARD Age: 30 years Sex: Female : 1985 Author: LANE SHI MD Attachments: None I, Cal Barrett am scribing for and in the presence of, Lane Shi MD. Basic Information Time seen: Date & time 11/24/2015 18:00:00. History source: Patient. Arrival mode: Private vehicle, Driven by . Additional information: Chief Complaint from Nursing Triage Note : Chief Complaint Description 11/24/2015 17:57 CDT Chief Complaint Description Pt arrives c/o lower back pain that goes to the tail bone. 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 Pt has taken Tylenol with no relief. No radiation into the legs. . History of Present Illness The patient presents with back pain and lumbar pain. The onset was earlier today. Type of injury: Bending over to standing. The location where the incident occurred was at work. Location: Bilateral lumbar Pain is more severe on left. Radiating pain: none. The degree at present is severe. The exacerbating factor is movement. The relieving factor is none. Risk factors consist of none. Prior episodes: none. Ms. Blanchard is a 30 year old female who presents to the ED with lower back pain. The patient was atwork and was going from bending over to standing up when she began to experience pain in her lower back. She describes the pain as excruciating. The patient says that the pain is worse on the left sideand that it does not radiate to elsewhere in her back. She denies any history of back problems. The patient has not attempted to go to the bathroom since the incident. She denies any numbness in her lower extremities. The patients drove her to the ED. Review of Systems Constitutional symptoms: Negative except as documented in HPI. Skin symptoms: Negative except as documented in HPI. ENMT symptoms: Negative except as documented in HPI. Respiratory symptoms: Negative except as documented in HPI. Cardiovascular symptoms: Negative except as documented in HPI. Gastrointestinal symptoms: Negative except as documented in HPI. Genitourinary symptoms: Negative except as documented in HPI. Musculoskeletal symptoms: Negative except as documented in HPI, lower back pain and No mid or upper back pain. Neurologic symptoms: no numbness in lower extremities. Psychiatric symptoms: Negative except as documented in HPI. Additional review of systems information: All other systems reviewed and otherwise negative. Health Status Allergies: Allergic Reactions (All) NKA. Medications: (Selected) Prescriptions Prescribed GoLYTELY oral powder for reconstitution: 240 mL, PO, q10min, 1 each Lidoderm 5% topical film: 1 patch(es), Topical, Daily, Apply to intact skin and remove patch after amaximum of 12 hr of application within a 24 hr period, 10 patch(es), 1 Refill(s) Prozac 10 mg oral tablet: 10 mg, 1 tab(s), PO, Daily, 30 tab(s) Work excuse: See Instructions, Please excuse from work from 11/24/15 to 11/26/15 d/t injury, 1 each, 0Refill(s) omeprazole 40 mg oral delayed release capsule: 40 mg, 1 cap(s), PO, Daily, 90 cap(s), 3 Refill(s) traMADol 50 mg oral tablet: See Instructions, 1 to 2 tab(s) PO q6hr as needed for pain, PRN: Pain, 20 tab(s), 0 Refill(s). Immunizations: Include Immunizations Previous Adult TD: Dose #1 () 12/31/1997 CDT. Polio: Dose #1 () 1985 [employer], Dose #2 () 1985 CDT, Dose #3 () 11/17/1988 CDT. influenza virus vaccine: Ad hoc dose () 03/01/2009 CDT. tetanus/diphth/pertuss (Tdap) adult/adol: Ad hoc dose (Tdapadult) 11/01/2013 CDT. MMR: Dose #1 () 11/17/1988 CDT, Dose #2 () 01/08/1999 CDT. DTaP: Dose #1 () 1985 [employer] TRA[employer], Dose #2 () 1985 CDT, Dose #3 () 1985 CDT, Dose #4 () 11/17/1988 CDT. Hib: Dose #1 () 01/13/1989 CDT. influenza virus vaccine, H1N1, live: Ad hoc dose () 03/01/2009 CDT. Future No future immunizations have been selected or recorded. . Past Medical/ Family/ Social History Surgical history: Esophagogastroduodenoscopy ([id number]) on 08/12/2015 at 30 Years. Upper GI endoscopy ([id number]) on 08/12/2015 at 30 Years. Other Manually [...] PowerChart. Cytopathology, slides, cervical or vaginal (the [facility] System); manual screening under physician supervision.. ([id number]) in the week of 03/10/2004 at 18 Years. Comments: 04/18/2010 21:45 - CARMEN MORALES Hx: [id number] - LAB-CYTOPATH, SM,D/V,TDS<3SM TECH 03/21/2013 17:41 - Contributor source changed to PowerChart.. Problem list: All Problems Disease Gastroesophageal Reflux (GERD ERMELINDA) / K21.9 / Confirmed Canceled: No Chronic Problems / NKP. Physical Examination Vital Signs: Vital Signs 11/24/2015 17:58 CDT Temperature Core 36.7 DegC Peripheral Pulse Rate 91 /min Respiratory Rate 18 /min SpO2 97 % Systolic Blood Pressure 122 mmHg Diastolic Blood Pressure 92 mmHg >HHI , SpO2 11/24/2015 17:58 CDT SpO2 97 % . General: Alert and moderate distress. Skin: Warm and dry. Head: Normocephalic and atraumatic. Neck: Trachea midline. Cardiovascular: Regular rate and rhythm. Respiratory: Lungs are clear to auscultation. Gastrointestinal: Soft, Nontender and Non distended. Back: Decreased range of motion, Lumbar: Midline, tenderness and Sacral: Midline, diffuse, mild. Musculoskeletal: Normal ROM. normal strength. no tenderness. no swelling. Neurological: Alert and oriented to person, place, time, and situation, No focal neurological deficit observed, CN II-XII intact, normal sensory observed, normal motor observed, normal speech observed and normal coordination observed. Psychiatric: Cooperative. Medical Decision Making Differential Diagnosis:Back pain, lumbar strain. Documents reviewed:Emergency department nurses' notes, emergency department records. OrdersLaunch Order Profile (Selected) Inpatient Orders Completed Flexeril: 10 mg, PO, Once ketorolac: 60 mg, IM, Once lidocaine 5% topical film: 1 patch(es), Topical, Once Prescriptions Prescribed Work excuse: See Instructions, Please excuse from work from 11/24/15 to 11/26/15 d/t injury, 1 each, 0Refill(s). Notes:seems like she strained her back at work. I do not feel any imaging is needed. I have given Toradol and hoping that will help with pain. Care handed over to Dr Jesus to follow on about pain relief.. Impression and Plan Diagnosis back pain Plan Condition: Stable. Electronically Signed By: LANE SHI MD On: 11/26/2015 09:58 PM Modified by and Electronically Signed by: CAL BARRETT On: 11/24/2015 06:31 PM Source: [facility] [employer] Document Id: [id number]} Yamini Cerda REmekaN. - 11/24/2015 5:57 PM CDT ED Primary Assessment Document Has Been Updated ED Primary Assessment Entered On: 11/24/2015 18:04 CDT Performed On: 11/24/2015 17:57 CDT by YAMINI CERDA RN Reason For Visit (As Of: 11/24/2015 18:04:10 CDT) Problems(Active) Disease Gastroesophageal Reflux (GERD ERMELINDA) (ICD-10-CM :K21.9 ) Name of Problem: Disease Gastroesophageal Reflux (GERD ERMELINDA) ; Recorder: CHEO KHAN MD; Confirmation: Confirmed ; Classification: Medical ; Code: K21.9 ; Contributor System: AXADO ; Last Updated: 08/12/2015 10:33 CDT ; Life Cycle Status: Active ; Responsible Provider: CHEO KHAN MD; Vocabulary: ICD-10-CM Diagnoses(Active) Back pain Date: 11/24/2015 ; Diagnosis Type: Reason For Visit ; Confirmation: Complaint of ; Clinical Dx: Back pain ; Classification: Medical ; Clinical Service: Emergency medicine ; Code: PNED ; Probability: 0 ; Diagnosis Code: [id number] Triage Chief Complaint Description : Pt arrives c/o lower back pain that goes to the tail bone. 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 Pt has taken Tylenol with no relief. No radiation into the legs. Information Given By : Patient Present in Room During Exam/Procedure : Alone Mode of Arrival ED : Private vehicle Track : Medical Languages : Kosovan Patient Informed of Triage Location : Emergency department Treatments Prior to Arrival : Acetaminophen Are you ? : No Is Patient Female and 13-50 no hysterectomy : Yes Status : Patient denies YAMINI CERDA RN - 11/24/2015 17:57 CDT Pain Assessment Pain Symptoms : Yes YAMINI CERDA RN - 11/24/2015 17:57 CDT Pain Scale Pain Scale Verbal 0-10 : Open YAMINI CERDA RN - 11/24/2015 17:57 CDT Pain Pain Assessment Grid Pain 1 Location : Lower back Intensity : 8 YAMINI CERDA RN - 11/24/2015 17:57 CDT DENNY DCP GENERIC CODE Tracking Acuity : 4 -Less Urgent Tracking Group : [facility] ED/ YAMINI CERDA RN - 11/24/2015 17:57 CDT Allergy (As Of: 11/24/2015 18:04:10 CDT) Allergies (Active) NKA Estimated Onset Date: Unspecified ; Created By: KATIE BRUNNER MD; Reaction Status: Active ; Category: Drug ; Substance: NKA ; Type: Allergy ; Updated By: KATIE BRUNNER MD; Reviewed Date: 11/24/2015 18:01 CDT ID Screen Drug Resistant Organism : No Travel Within Last 21 Days : No Contact with someone with Ebola : No YAMINI CERDA RN - 11/24/2015 17:57 CDT Respiratory Airway : Patent Respirations : Unlabored Respiratory Pattern : Regular YAMINI CERDA RN - 11/24/2015 17:57 CDT Cardiovascular Heart Rhythm : Regular Skin Color : Normal for ethnicity Skin Description : Dry Skin Temperature : Warm YAMINI CERDA RN - 11/24/2015 17:57 CDT Neurological Last Well Time Known : Not applicable Level of Consciousness : Alert Orientation : Oriented x 3 Characteristics of Speech : Clear YAMINI CERDA RN - 11/24/2015 17:57 CDT ED Psychosocial Affect/Behavior : Calm, Cooperative Domestic Abuse Concerns : None Behavioral Health Screen/Safety Assmt : No YAMINI CERDA RN - 11/24/2015 17:57 CDT Gastrointestinal Nutrition ED : Adequate YAMINI CERDA RN - 11/24/2015 17:57 CDT Musculoskeletal Fall Prevention Education Provided : Yes Musculoskeletal Note : Pt was at work, bending over changing a residents brief and when she stood upgot a shooting pain in the mid back to the tailbone. Pt deies pain into the legs. Pt took Tylenol with no relief. Increased pain with movement. YAMINI CERDA RN - 11/24/2015 17:57 CDT Social Habits Exposure to Tobacco Smoke : Patient smokes, Other: occ alcohol Smoking Status : Current every day smoker Tobacco 2A : Yes Tobacco Use/Currently Using : Yes Tobacco Use/Last 30 Days : Yes Tobacco Use/Last 12 months : Yes Type : Cigarettes: Less than 20 per day Tobacco Use/Advised to Quit : No YAMINI CERDA RN - 11/24/2015 17:57 CDT Alcohol Use Grid Alcohol Use : Yes Frequency : Occasionally YAMINI CERDA RN - 11/24/2015 17:57 CDT Recreational Drug Use Grid Drug Use : None YAMINI CERDA RN - 11/24/2015 17:57 CDT Source: [facility] Document Id: [id number] CDT!69 documented in this encounter Miscellaneous Notes Telephone Encounter - Megan Vaca L.P.N. - 11/27/2015 2:24 PM CDT Follow Up with Occupational Medicine Entered by MEGAN VACA LPN on November 27, 2015 14:24:55 CDT pt seen on Follow Up Request: Follow Up with Occupational Medicine Date Requested: November 24, 2015 19:26:18 CDT Ed Location: [facility] ED ED Attending: LANE SHI MD Order placed from order screen by provider Order Provider: --- Follow Up Time Frame: --- Reason for Request: --- Special Instructions: --- Consulting Physician: --- Consulting Department: --- Rule placed order based on provider documentaton Note: Order created from documentation in the Follow Up section Documented by: MAYLIN MOORE DO Follow Up Within: 1 week Follow Up On: -- Follow Up Address: -- Follow Up Comments: Clinic will call to schedule this visit regarding your back painCall in 3 days if you do not hear back. Source: [employer] Document Id: [id number] Miscellaneous - Devi Raza REmekaN. - 11/24/2015 8:08 PM CDT Valuables/Belongings Valuables/Belongings Entered On: 11/24/2015 20:08 CDT Performed On: 11/24/2015 20:08 CDT by DEVI RAZA RN Valuables/Belongings Belongings Sent Home With : pt DEVI RAZA RN - 11/24/2015 20:08 CDT Source: [employer] Document Id: [id number]!3 Miscellaneous - Conversion, Historical Provider Ser - 11/24/2015 8:08 PM CDT Coding Summary-Paper Based CODING DATE: 12/02/2015 FINAL [facility] STATUS: * Discharged to Home or Self Care PAYOR: Workers Compensation ADMIT DX: M54.5 Low back pain REASON FOR VISIT DX: M54.5 Low back pain FINAL DX: PRINCIPAL: M54.5 Low back pain SECONDARY: F17.210 Nicotine dependence, cigarettes, uncomplicated PROCEDURES DOCTOR NAME DATE NOTE: The code number assigned matches the documented diagnosis and / or procedure in the patient's chart. However, the narrative phrase printed from the coding software may appear abbreviated, or result in slightly different terminology. Coded By: KATYA CHANCE Date Saved: 12/02/2015 06:59 am Source: [facility] POWERCHART Document Id: [id number] documented in this encounter Plan of Treatment Not on filedocumented as of this encounter Visit Diagnoses Not on filedocumented in this encounter
--- OUTSIDE RECORDS SUMMARY | 2022-02-03 23:57 | XMS_ITS | Encounter Summary ---
:1985 Author Organization [facility] Address [address] [place] [address] Care Team Providers Name Role Phone Unavailable Primary Care Provider Unavailable Encounter Details Date Type Department Care Team Description 02/13/2016 Hospital Encounter HX [facility] Oleg Gunter III, P.A.-C., M.S. Social History Tobacco Use Types Packs/Day Years Used Date Smoking Tobacco: Never Assessed Sex Assigned at Date Recorded Not on file documented as of this encounter Last Filed Vital Signs Vital Sign Reading Time Taken Comments Blood Pressure 134/78 02/13/2016 3:22 PM CDT Pulse 89 02/13/2016 2:25 PM CDT Temperature - - Respiratory Rate 17 02/13/2016 3:22 PM CDT Oxygen Saturation - - Inhaled Oxygen Concentration - - Weight - - Height - - Body Mass Index - - documented in this encounter Discharge Summaries Brandie Suh R.N. - 02/13/2016 4:47 PM CDT ED Depart Summary [facility] Emergency Department / Urgent Care Clinical Discharge Summary PERSON INFORMATION Name SILVIA BLANCHARD Age 30 Years 1985 12:00 AM Sex Female Language Togolese PCP SOFIE VÁZQUEZ MD Marital Status N [id number] Visit Id Visit Reason Syncope/Near syncope; dizzy Specialty Enc Type Emergency Med Service Emergency Medicine Referred by Tamar MAY ED/UC Discharge 02/13/2016 4:44 PM Tracking Id [id number] Checkout 02/13/2016 4:44 PM Checkin 02/13/2016 1:58 PM Acuity 3 -Urgent Dispo Type * Discharged to Home or Self Care Arrival 02/13/2016 1:58 PM Reg Status Complete LOS 000 02:46 Address: [address] [place] [address] [phone] Comment: PROVIDER INFORMATION Provider Role Provider Contact Time BRISEYDA PUENTE PLANER HAND Nurse 02/13/16 14:18 OLEG BORJAS PA-C ED Provider 02/13/16 14:34 BRANDIE SUH PLANER HAND Nurse 02/13/16 15:14 DIAGNOSIS Syncope And Near Syncope Comment: PATIENT EDUCATION INFORMATION Instructions: NEAR SYNCOPE, Unknown Follow up: With: Address: When: Follow Up with Primary Care Within 2 - 4 days Comments: for follow up ER visit With: Address: When: SOFIE VÁZQUEZ [address] [place] [address] [phone] Business (1) Within 2 - 4 days Source: [employer] Document Id: [id number] Brandie Suh R.N. - 02/13/2016 4:47 PM CDT ED Discharge Instructions [facility] [address] [place] [address] Name: SILVIA BLANCHARD Date of : 1985 12:00 AM Visit Date: 02/13/2016 1:58 PM [facility] Number: [id number] Address: [address] [place] [address] [phone] Primary Care Provider: SOFIE VÁZQUEZ MD IMPORTANT: [facility] [place] would like to thank you for allowing us to assist youwith your healthcare needs. The following includes patient education materials and information regarding your injury/illness. Diagnosis: Syncope And Near Syncope Follow-Up Instructions: With: Address: When: Follow Up with Primary Care Within 2 - 4 days Comments: for follow up ER visit With: Address: When: SOFIE VÁZQUEZ [address] [place] [address] [phone] Business (1) Within 2 - 4 days Your Upcoming Appointments: Date Time Location Provider 02/19/2016 14:00 [facility] Yang MD, Sofie Patient Education Materials: Near-Fainting:Uncertain Cause Fainting (syncope) is a temporary loss of consciousness (passing out). It occurs when blood flow to the brain is reduced. Near-fainting (near-syncope) is like fainting, but you do not fully pass out. The common minor causes of near fainting include sudden fear, pain, emotional stress, overexertion, or quickly standing up after sitting or lying for a long time. The more serious causes for near fainting are due to either a very slow or very fast heart beat, dehydration, anemia, blood loss, problems related to the heart, or taking too much high blood pressure medicine. The exact cause of your episode is not certain. More tests may be required. Therefore, it is important that you follow up with your doctor as advised. Home Care: 1) Rest today. Resume your normal activities as soon as you are feeling back to normal. 2) If you become light-headed or dizzy, lie down right away or sit with your head between your knees. 3) Because we do not know the exact cause of your near fainting spell, another spell could occur without warning. Therefore, do not drive a car or use dangerous equipment. D o not take a bath alone (use a shower instead). Do not swim alone. You can resume these activities when your doctor says that you are no longer in danger of having a near fainting spell. 4) Stay well hydrated by drinking enough fluid each day. Follow Up with your doctor as instructed. Get Prompt Medical Attention if any of the following occur: -- Another fainting spell occurs, and it is not explained by the common causes listed above -- Chest, arm, neck, jaw, back or abdominal pain -- Shortness of breath -- Weakness, tingling or numbness in one side of the face, one arm or leg -- Slurred speech, confusion, trouble walking or seeing -- Seizure -- Blood in vomit, stools (black or red color) -- (In women) unexpected vaginal bleeding ?? [id number] Lennie Swain, [address] [place] [address], [place] [address]. All rights reserved. This information is not [...] if you dont have one. Go to [email or web address] and click on Create Your Account. Then, follow the directions to complete the online form. Youll be asked for your [facility] number which you can find at the top of this document. ED Tests and Procedures: Order Status Automated Diff-5 Part Completed CBC (includes Auto Differential) Completed Basic Metabolic Panel Completed Beta hCG Qualitative Urine Completed Follow Up with Primary Care Completed Urinalysis with Culture if Indicated Completed XR Abdomen 2 views w/ Chest 1 view Completed EKG-Lab Completed Discharge Prescriptions & Home Medications: Medication/Strength Dose Route Frequency Indications/Special Instructions/Comments/Notes phentermine (phentermine 37.5 mg oral tablet) 37.5 mg Oral once a day for 30 Days Comment: Attention: If you have any medications [...] arrange a ride home with a responsible constitution party. LO Ward KRISTINA LYNN , or responsible constitution party have received this information and my questions have been answered. I have discussed any challenges I see with this plan with the nurse or physician. Patient Signature or Responsible Alliance Party/Relationship Date Time Provider Signature Date Time [...] arrange a ride home with a responsible constitution party. I, SILVIA BLANCHARD , or responsible constitution party have received this information and my questions have been answered. I have discussed any challenges I see with this plan with the nurse or physician. Patient Signature or Responsible Alliance Party/Relationship Date Time Provider Signature Date Time Source: [employer] POWERCHART Document Id: [id number] documented in this encounter ED Notes Brandie Suh R.N. - 02/13/2016 4:46 PM CDT ED Disposition Summary ED Disposition Summary Entered On: 02/13/2016 16:46 CDT Performed On: 02/13/2016 16:46 CDT by BRANDIE SUH RN ED Disposition Summary Present in Room During Exam/Procedure : Alone Mode of Discharge : Ambulatory Transportation : Private vehicle Printed Discharge Instructions Given to Patient : Yes Patient Status at Discharge from ED : Improved BRANDIE SUH RN - 02/13/2016 16:46 CDT Source: [employer] Document Id: [id number] CDT!7 Brandie Suh R.N. - 02/13/2016 4:46 PM CDT ED Pain Assessment ED Pain Assessment Entered On: 02/13/2016 16:46 CDT Performed On: 02/13/2016 16:46 CDT by BRANDIE SUH RN Pain Assessment Pain Symptoms : No BRANDIE SUH RN - 02/13/2016 16:46 CDT Source: [employer] Document Id: [id number] CDT!3 Brandie Suh R.N. - 02/13/2016 4:30 PM CDT ED Nurse Reassess ED Nurse Reassess Entered On: 02/13/2016 16:45 CDT Performed On: 02/13/2016 16:30 CDT by BRANDIE SUH RN Pain Assessment Pain Symptoms : No BRANDIE SUH RN - 02/13/2016 16:45 CDT Source: [employer] Document Id: [id number] CDT!3 Brandie Suh R.N. - 02/13/2016 3:28 PM CDT ED Nurse Reassess ED Nurse Reassess Entered On: 02/13/2016 15:28 CDT Performed On: 02/13/2016 15:28 CDT by BRANDIE SUH RN Pain Assessment Pain Symptoms : No BRANDIE SUH RN - 02/13/2016 15:28 CDT Source: [employer] Document Id: [id number] CDT!3 Franca Brito R.N. - 02/13/2016 2:58 PM CDT ED Treatments and Procedures ED Treatments and Procedures Entered On: 02/13/2016 14:58 CDT Performed On: 02/13/2016 14:58 CDT by FRANCA BRITO RN Peripheral IV Peripheral IV Assess/Intervention Grid Peripheral IV #1 IV Activity : Start Number of Attempts : 1 Date of Insertion : 02/13/2016 CDT IV Site : Antecubital Laterality : Left Catheter Size : 20 Catheter Type : Over the needle Site Condition : No complications Drainage Description : None FRANCA BRITO RN - 02/13/2016 14:58 CDT Source: [employer] Document Id: [id number] CDT!13 Oleg Borjas III - 02/13/2016 2:40 PM CDT Syncope/Near syncope Patient: SILVIA BLANCHARD Age: 30 years Sex: Female : 1985 Author: OLEG BORJAS PA-C Attachments: None Associated Diagnosis: Syncope And Near Syncope I, Cal Barrett, am scribing for and in the presence ofOleg PA-C. I personally performed the services described in this documentation and as scribed in my presence; it is both accurate and complete. Basic Information Time seen: Date & time 02/13/2016 14:40:00. History source: Patient. Arrival mode: Private vehicle. Additional information: Chief Complaint from Nursing Triage Note : Chief Complaint Description 02/13/2016 14:25 CDT Chief Complaint Description Pt to ER with c/o having episodes of feeling like she is going to pass out when changing positions. Pt states she gets sweaty, dizzy and yesterday had an episode where her vision went black. Pt states denies chest pain or sob. Pt is asymptomatic at rest. 02/13/2016 14:00 CDT Chief Complaint Description Pt states she has had intermitant diziiness x 1 month and yesterday states things went black, I fell on my and I felt jerking movements. . History of Present Illness The patient presents with near syncope. The onset was 1 month ago. The course/duration of symptoms is episodic: with multiple episodes. The exacerbating factor is standing. The relieving factor is rest. Risk factors consist of weight loss medication. Prior episodes: occasional. Therapy today: none. Preceding symptoms: lightheaded, no palpitations. Associated symptoms: denies chest pain, denies shortness of breath and denies headache. Associated injury to the none. Ms. Blanchard is a 30 year old female who presents to the ED for evaluation of a near syncopal episode. Over the past month, the patient has had multiple near syncopal episodes (4-5 per day) where she feels like she is going to pass out when she stands. Yesterday, she had a more severe episode during which her vision became entirely black and she fell against her . She did not lose consciousness during the episode and was able to feel her , but lost her vision for a short period of time. Since, the episode yesterday, the patient has had two more near syncopal episodes today. However, these have milder and more similar to the ones she has had in the past. Of note, she was prescribed phe ntermine (37.5 mg daily) two months ago by her PCP for weight loss. Since then, she has lost approximately 40 pounds. At present, the patient denies chest pain, shortness of breath, and urinary symptoms and has had not history of. She has not recently been sick and has been drinking plenty of fluids. She does complains that she has not had a BM for 5 days. Review of Systems Constitutional symptoms: Negative except as documented in HPI. Skin symptoms: Negative except as documented in HPI. Eye symptoms: Negative except as documented in HPI. ENMT symptoms: Negative except as documented in HPI. Respiratory symptoms: No shortness of breath. Cardiovascular symptoms: No chest pain. Gastrointestinal symptoms: Negative except as documented in HPI. Genitourinary symptoms: No dysuria or no hematuria. Neurologic symptoms: near syncope. Psychiatric symptoms: No anxiety. Health Status Allergies: Allergic Reactions (Selected) NKA. Medications: (Selected) Prescriptions Prescribed phentermine 37.5 mg oral tablet: 37.5 mg, 1 tab(s), PO, Daily, for 30 day(s), 30 tab(s), 2 Refill(s). Immunizations: Include Immunizations Previous Adult TD: Dose #1 () 12/31/1997 CDT. Polio: Dose #1 () 1985 [employer], Dose #2 () 1985 CDT, Dose #3 () 11/17/1988 CDT. influenza virus vaccine: Ad hoc dose () 03/01/2009 CDT. tetanus/diphth/pertuss (Tdap) adult/adol: Ad hoc dose (Tdapadult) 11/01/2013 CDT. MMR: Dose #1 () 11/17/1988 CDT, Dose #2 () 01/08/1999 CDT. DTaP: Dose #1 () 1985 [employer], Dose #2 () 1985 CDT, Dose #3 () 1985 CDT, Dose #4 () 11/17/1988 CDT. Hib: Dose #1 () 01/13/1989 CDT. influenza virus vaccine, H1N1, live: Ad hoc dose () 03/01/2009 CDT. Future No future immunizations have been selected or recorded. . history: not currently . Past Medical/ Family/ Social History Surgical history: Esophagogastroduodenoscopy ([id number]) on 08/12/2015 at 30 Years. Upper GI endoscopy ([id number]) on 08/12/2015 at 30 Years. Other Manually [...] PowerChart. Cytopathology, slides, cervical or vaginal (the Sunspot System); manual screening under physician supervision.. ([id number]) in the week of 03/10/2004 at 18 Years. Comments: 04/18/2010 21:45 - CARMEN MORALES Hx: [id number] - LAB-CYTOPATH, SM,D/V,TDS<3SM TECH 03/21/2013 17:41 - Contributor source changed to PowerChart.. Social history: Alcohol use: Denies, Tobacco use: 5 cigarettes per day, Drug use: Denies, Family/social situation: . Problem list: All Problems (Selected) Disease Gastroesophageal Reflux (GERD ERMELINDA) / K21.9 / Confirmed. Physical Examination Vital Signs: Vital Signs 02/13/2016 14:25 CDT Temperature Core 37.0 DegC Peripheral Pulse Rate 89 /min Respiratory Rate 20 /min SpO2 94 % Systolic Blood Pressure 124 mmHg Diastolic Blood Pressure 79 mmHg Mean Arterial Pressure 94 mmHg 02/13/2016 14:19 CDT Heart Rate Monitored 95 /min Pulse SpO2 95 /min Respiratory Rate 25 /min HI SpO2 94 % , SpO2 02/13/2016 14:25 CDT SpO2 94 % 02/13/2016 14:19 CDT SpO2 94 % . General: Alert and no acute distress. Skin: Warm, dry and intact. Head: Atraumatic. Neck: Supple, trachea midline and no tenderness. Eye: Pupils are equal, round and reactive to light, extraocular movements are intact and normal conjunctiva. Ears, nose, mouth and throat: Oral mucosa moist. Cardiovascular: Regular rate and rhythm, No murmur and no lower extremity edema. Respiratory: Lungs are clear to auscultation, respirations are non-labored and breath sounds are equal. Gastrointestinal: Soft, Nontender and Non distended. Musculoskeletal: Normal ROM. normal strength. no tenderness. no swelling. no deformity. Neurological: Alert and oriented to person, place, time, and situation, No focal neurological deficit observed and normal speech observed. Psychiatric: Cooperative and appropriate mood & affect. Medical Decision Making Electrocardiogram:Test Reason : DIZZY Blood Pressure : / mmHG Vent. Rate : 089 BPM Atrial Rate : 089 BPM P-R Int : 182 ms QRS Dur : 076 ms QT Int : 374 ms P-R-T Axes : -03 048 028 degrees QTc Int : 455 ms Normal sinus rhythm Nonspecific T wave abnormality When compared with ECG of 21-JUL-2015 00:27, No significant change was found Referred By: GRACIELA COMBS Confirmed By:PABLO NUÑEZ MD . Results review:Lab results : Lab View 02/13/2016 16:04 CDT UA Color Yellow UA Clarity Clear UA Spec Grav 1.005 NA UA pH 7.0 UA Protein Negative mg/dL UA Glucose Negative mg/dL UA Ketones Negative mg/dL UA Bili Negative UA Urobilinogen <2.0 mg/dL UA Blood Negative UA Nitrite Negative UA Leuk Est Negative UR WBC None Seen /HPF UR RBC Occ-2 /HPF UR Squamous Epi Cells 4-10 /HPF UR Mucous Present U Beta-hCG Ql Negative 02/13/2016 15:38 CDT Hgb 13.1 g/dL Hct 38.9 % WBC 6.0 x10(9)/L RBC 4.25 x10(12)/L MCV 91.5 fL RDW 13.1 % Platelet 178 x10(9)/L Neutro Absolute 3.87 10(9)/L Lymph Absolute 1.39 x10(9)/L Wy[place] Absolute 0.51 x10(9)/L Eos Absolute 0.21 x10(9)/L Baso Absolute 0.03 x10(9)/L Sodium Lvl 139 mmol/L Potassium Lvl 4.4 mmol/L Chloride 102 mmol/L CO2 26 mmol/L AGAP 12 mmol/L Glucose Lvl 108 mg/dL Creatinine 0.58 mg/dL EGFR (MDRD) >60 mL/min/1.73m2 EGFR (MDRD) >60 mL/min/1.73m2 BUN 10 mg/dL Calcium Lvl 9.4 mg/dL . Radiology results:X-ray (increased stool present). Discuss with pt that her symptoms are likely related to her weight loss medication use and rapid weight loss. I urge her to consider discontinuing the medication as these types of medications have beenknown to cause heart arrhythmias and can could cause . Will have patient follow up with PCP tank. Impression and Plan Diagnosis Syncope And Near Syncope (Discharge, Emergency medicine, Medical) Plan Condition: Improved, Stable. Disposition: Medically cleared, Discharged: Time 02/13/2016 16:25:00, to home. Counseled: Patient, Regarding diagnosis, Regarding diagnostic results, Regarding treatment plan, Regarding prescription, Patient indicated understanding of instructions. Electronically Signed By: OLEG BORJAS PA-C On: 02/13/2016 06:57 PM Modified by and Electronically Signed by: CAL BARRETT On: 02/13/2016 02:55 PM Co-Signed By: RAYMOND JOEL MD On: 04/04/2016 07:22 PM Co-Signed By: CAL BARRETT Source: [facility] POWERCHART Document Id: [id number] Briseyda Puente REmekaNEmeka - 02/13/2016 2:25 PM CDT ED Primary Assessment Document Has Been Updated ED Primary Assessment Entered On: 02/13/2016 14:31 CDT Performed On: 02/13/2016 14:25 CDT by BRISEYDA PUENTE RN Reason For Visit (As Of: 02/13/2016 14:31:19 CDT) Problems(Active) Disease Gastroesophageal Reflux (GERD ERMELINDA) (ICD-10-CM :K21.9 ) Name of Problem: Disease Gastroesophageal Reflux (GERD ERMELINDA) ; Recorder: CHEO KHAN MD; Confirmation: Confirmed ; Classification: Medical ; Code: K21.9 ; Contributor System: Skimlinks ; Last Updated: 08/12/2015 10:33 CDT ; Life Cycle Status: Active ; Responsible Provider: CHEO KHAN MD; Vocabulary: ICD-10-CM Diagnoses(Active) Syncope/Near syncope Date: 02/13/2016 ; Diagnosis Type: Reason For Visit ; Confirmation: Complaint of ; Clinical Dx: Syncope/Near syncope ; Classification: Medical ; Clinical Service: Emergency medicine ; Code: PNED ; Probability: 0 ; Diagnosis Code: [id number] Triage Chief Complaint Description : Pt to ER with c/o having episodes of feeling like she is going to passout when changing positions. Pt states she gets sweaty, dizzy and yesterday had an episode where hervision went black. Pt states denies chest pain or sob. Pt is asymptomatic at rest. Information Given By : Patient Present in Room During Exam/Procedure : Alone Mode of Arrival ED : Private vehicle Track : Medical Languages : Togolese Vital Signs Assessed : Yes Treatments Prior to Arrival : None Are you ? : No Is Patient Female and 13-50 no hysterectomy : Yes Status : Patient denies BRISEYDA PUENTE RN - 02/13/2016 14:25 CDT Vital Signs Temperature Core : 37.0 DegC(Converted to: 98.6 DegF) Peripheral Pulse Rate : 89 /min Respiratory Rate : 20 /min Systolic Blood Pressure : 124 mmHg Diastolic Blood Pressure : 79 mmHg NIBP Mean : 94 mmHg SpO2 : 94 % Oxygen Therapy : Room air BRISEYDA PUENTE YANELI - 02/13/2016 14:25 CDT Pain Assessment Pain Symptoms : No BRISEYDA PUENTE YANELI - 02/13/2016 14:25 CDT DENNY DCP GENERIC CODE Tracking Acuity : 3 -Urgent Tracking Group : [facility] ED/ BRISEYDA PUENTE RN - 02/13/2016 14:25 CDT Allergy (As Of: 02/13/2016 14:31:19 CDT) Allergies (Active) NKA Estimated Onset Date: Unspecified ; Created By: KATIE BRUNNER MD; Reaction Status: Active ; Category: Drug ; Substance: NKA ; Type: Allergy ; Updated By: KATIE BRUNNER MD; Reviewed Date: 02/13/2016 14:29 CDT ID Screen Drug Resistant Organism : No Travel Within Last 21 Days : No BRISEYDA PUENTE YANELI - 02/13/2016 14:25 CDT Respiratory Airway : Patent Respirations : Unlabored Respiratory Pattern : Regular BRISEYDA PUENTE RN - 02/13/2016 14:25 CDT Cardiovascular Heart Rhythm : Regular Skin Color : Normal for ethnicity Skin Description : Dry Skin Temperature : Warm BRISEYDA PUENTE YANELI - 02/13/2016 14:25 CDT Neurological Last Well Time Known : Not applicable Level of Consciousness : Alert Orientation : Oriented x 3 Characteristics of Speech : Appropriate for age Neuro Patient Stated Symptoms : None Gait : Steady Swallowing Difficulty/Aspiration Risk : None Neuro Detailed Assessment : Yes BRISEYDA PUENTE RN - 02/13/2016 14:25 CDT Neuro Detailed MARY : Yes Facial Symmetry : Normal Extremity Movement : Equal Extremity Sensation : Normal Speech Characteristics : Normal BRISEYDA PUENTE RN - 02/13/2016 14:25 CDT ED Psychosocial Affect/Behavior : Calm, Cooperative, Appropriate Domestic Abuse Concerns : None Behavioral Health Screen/Safety Assmt : No BRISEYDA PUENTE YANELI - 02/13/2016 14:25 CDT Gastrointestinal Nutrition ED : Adequate BRISEYDA PUENTE - 02/13/2016 14:25 CDT Musculoskeletal Fall Prevention Education Provided : Yes BRISEYDA PUENTE RN - 02/13/2016 14:25 CDT Social Habits Exposure to Tobacco Smoke : Patient smokes, Other: occ alcohol Smoking Status : Current every day smoker Tobacco 2A : Yes Tobacco Use/Currently Using : Yes Tobacco Use/Last 30 Days : Yes Tobacco Use/Last 12 months : Yes Type : Cigarettes: Less than 20 per day Tobacco Use/Advised to Quit : Yes BRISEYDA PUENTE YANELI - 02/13/2016 14:25 CDT Alcohol Use Grid Alcohol Use : Yes Frequency : Occasionally BRISEYDA PUENTE YANELI - 02/13/2016 14:25 CDT Recreational Drug Use Grid Drug Use : Current Type : Alcohol Route : Oral Frequency : Other: TWICE A MONTH BRISEYDA PUENTE YANELI - 02/13/2016 14:25 CDT Source: [employer] Document Id: [id number] CDT!82 Dayan Mccoy R.N. - 02/13/2016 2:00 PM CDT ED Triage Assessment Document Has Been Updated ED Triage Assessment Entered On: 02/13/2016 14:02 CDT Performed On: 02/13/2016 14:00 CDT by DAYAN MCCOY RN Reason For Visit (As Of: 02/13/2016 14:02:24 CDT) Problems(Active) Disease Gastroesophageal Reflux (GERD ERMELINDA) (ICD-10-CM :K21.9 ) Name of Problem: Disease Gastroesophageal Reflux (GERD ERMELINDA) ; Recorder: CHEO KHAN MD; Confirmation: Confirmed ; Classification: Medical ; Code: K21.9 ; Contributor System: [employer]ESIODO[employer] ; Last Updated: 08/12/2015 10:33 CDT ; Life Cycle Status: Active ; Responsible Provider: CHEO KHAN MD; Vocabulary: ICD-10-CM Diagnoses(Active) Syncope/Near syncope Date: 02/13/2016 ; Diagnosis Type: Reason For Visit ; Confirmation: Complaint of ; Clinical Dx: Syncope/Near syncope ; Classification: Medical ; Clinical Service: Emergency medicine ; Code: PNED ; Probability: 0 ; Diagnosis Code: [id number] Triage Chief Complaint Description : Pt states she has had intermitant diziiness x 1 month and yesterday states things went black, I fell on my and I felt jerking movements. Information Given By : Patient Present in Room During Exam/Procedure : Alone Mode of Arrival ED : Private vehicle Track : Medical Languages : Togolese Treatments Prior to Arrival : None Are you ? : No Is Patient Female and 13-50 no hysterectomy : Yes Status : Patient denies DAYAN MCCOY RN - 02/13/2016 14:00 CDT Pain Assessment Pain Symptoms : No DAYAN MCCOY RN - 02/13/2016 14:00 CDT DENNY DCP GENERIC CODE Tracking Acuity : 3 -Urgent Tracking Group : [facility] ED/ DAAYN MCCOY RN - 02/13/2016 14:00 CDT Source: [employer] Document Id: [id number] CDT!18 documented in this encounter Miscellaneous Notes Telephone Encounter - Sivan Allred R.N. - 02/14/2016 2:08 PM CDT Follow Up with Primary Care Document Contains Addenda Addendum by CARLOS A GARCIA RN on February 16, 2016 09:09:55 CDT No answer, unable to leave message, no name Addendum by CARLOS A GARCIA RN on February 15, 2016 13:21:17 CDT No answer, unable to leave message, no name Entered by SIVAN ALLRED RN on February 14, 2016 14:08:24 CDT No answer, unable to leave message, no name Follow Up Request: Follow Up with Primary Care Date Requested: February 13, 2016 16:34:07 CDT Ed Location: [facility] ED ED Attending: OLEG BORJAS PA-C Order placed from order screen by provider Order Provider: --- Follow Up Time Frame: --- Reason for Request: --- Special Instructions: --- Consulting Physician: --- Consulting Department: --- Rule placed order based on provider documentaton Note: Order created from documentation in the Follow Up section Documented by: OLEG BORJAS PA-C Follow Up Within: 2 - 4 days Follow Up On: -- Follow Up Address: -- Follow Up Comments: for follow up [facility] visit [facility] Document Id: [id number] Miscellaneous - Brandie Suh R.N. - 02/13/2016 4:46 PM CDT Valuables/Belongings Valuables/Belongings Entered On: 02/13/2016 16:46 CDT Performed On: 02/13/2016 16:46 CDT by BRANDIE SUH RN Valuables/Belongings Belongings Sent Home With : All belonging taken home with patient. BRANDIE SUH RN - 02/13/2016 16:46 CDT Source: [facility] [employer] Document Id: [id number]!3 Miscellaneous - Conversion, Historical Provider Ser - 02/13/2016 4:44 PM CDT Coding Summary-Paper Based CODING DATE: 02/20/2016 FINAL [facility] STATUS: * Discharged to Home or Self Care PAYOR: Medicaid ADMIT DX: R55 Syncope and collapse REASON FOR VISIT DX: R55 Syncope and collapse FINAL DX: PRINCIPAL: R55 Syncope and collapse SECONDARY: F17.210 Nicotine dependence, cigarettes, uncomplicated PROCEDURES DOCTOR NAME DATE NOTE: The code number assigned matches the documented diagnosis and / or procedure in the patient's chart. However, the narrative phrase printed from the coding software may appear abbreviated, or result in slightly different terminology. Coded By: CASSANDRA ACEVES Date Saved: 02/20/2016 07:57 am [facility] Document Id: [id number] documented in this encounter Plan of Treatment Not on filedocumented as of this encounter Procedures Procedure Name Priority Date/Time Associated Diagnosis Comme nts TEST, U Routine 02/13/2016 4:04 PM Resu lts for this CDT procedure are i n the results section. URINALYSIS, Routine 02/13/2016 4:04 PM Results f or this MIDSTREAM, WITH CDT procedure ar e in CULTURE IF the results INDICATED section. DX ABDOMEN SUPINE Routine 02/13/2016 3:59 PM Resu lts for this AND UPRIGHT 2 VIEWS CDT procedur e are in the results section. AUTOMATED Routine 02/13/2016 3:38 PM Results f or this DIFFERENTIAL, B CDT procedure ar e in the results section. CBC WITH Routine 02/13/2016 3:38 PM Results f or this DIFFERENTIAL, B CDT procedure ar e in the results section. BASIC METABOLIC Routine 02/13/2016 3:38 PM Result s for this PANEL, S/P CDT procedure are i n the results section. ECG Routine 02/13/2016 2:29 PM Results f or this CDT procedure are i n the results section. documented in this encounter Results (ABNORMAL) Urinalysis, Midstream, with culture if indicated (02/13/2016 4:04 PM CDT) [facility] Method Time Signature HXUr Color Yellow Colorless POWERCHART Clarity Clear Clear POWERCHART Glucose Negative Negative MGDL POWERCHART Protein, Ur, Dip Negative Negative MGDL POWERCHAR T HXBILIRUBIN Negative Negative POWERCHART Urobilinogen <2.0 MGDL POWERCHART Comment: Reference Range Urobilinogen: 0.2-1.0 mg/dL pH, POCT, Urine 7.0 <5.0 POWERCHART Comment: Reference Range pH: 5.0-8.0 HXBLOOD Negative Negative POWERCHART Ketones, QL(U) Negative Negative MGDL POWERCHART HXNITRITE Negative Negative POWERCHART Leukocyte Esterase Negative Negative POWERCHART Specific [place], POCT, U 1.005 SMOOTH RCHART HXUR WBC. None Seen None Seen HPF POWERCHART HXUR RBC. Occ-2 None Seen HPF POWERCHART Squamous Epithelial 4-10 (A) None Seen HPF POWERC NANCE Mucus Present (A) None Seen POWERCHART Specimen (Source) Anatomical Collection Method Collection Time Re ceived Time Location / / Volume Laterality Urine, First 02/13/2016 4:04 PM Voided CDT Oleg Borjas III, P.A.-C., M.S. LAB URINE ORDERABLES Performing Organization Address City/[facility]/ZIP Code Phon e Number POWERCHART Test, Qualitative, Urine (02/13/2016 4:04 PM CDT) [facility] Method Time Signature HXBeta-hCG Negative Negative POWERCHART Qualitative Urine Specimen (Source) Anatomical Collection Method Collection Time Re ceived Time Location / / Volume Laterality Urine 02/13/2016 4:04 PM CDT Issac Javier III.Sylvie., M.S. LAB URINE ORDERABLES Performing Organization Address City/State/ZIP Code Phon e Number POWERCHART DX Abdomen Supine and Upright 2 Views with Chest 1 View (02/13/2016 3:59 PM CDT) Anatomical Region Laterality Modality Abdomen Right Radiographic Imaging Specimen (Source) Anatomical Collection Method Collection Time Re ceived Time Location / / Volume Laterality 02/13/2016 3:59 PM CDT Addenda Addendum by Provider, Lupe Villanueva o laurie 02/13/2016 3:59 PM CDT RAD^^^AU XR Abdomen 2 views w/ Chest 1 view 02/13/2016 15:59:53 Impressions 02/13/2016 4:15 PM CDT No meaningful change. Nonobstructive bowel gas pattern. Mild stool in the colon. Cholecystectomy clips. No free air. The lung bases are clear. No abnormal abdominal c alcifications. The lungs are clear. Cardiac silhouette and pulmonary vascularity are within normal limits. Narrative 02/13/2016 4:15 PM CDT EXAM: XR Abdomen 2 views w/ Chest 1 view INDICATION: constipation COMPARISON: 12/13/2013 Procedure Note Spencer Butler M.D. / ProviderStella M.D. - 09/05/2016 EXAM: XR Abdomen 2 views w/ Chest 1 view INDICATION: constipation COMPARISON: 12/13/2013 IMPRESSION: No meaningful change. Nonobs tructive bowel gas pattern. Mild stool in the colon. Cholecystectomy clips. No free air. The lung bases are clear. No abnormal abdominal c alcifications. The lungs are clear. Cardiac silhouette and pulmonary vascularity are within normal limits. Vianney Kurtz R.N. [facility]E [facility] Automated Differential (02/13/2016 3:38 PM CDT) athologist Signature Absolute 3.87 1.70 - POWERCHART Neutrophils 7.00 109L Lymphocytes 1.39 0.90 - POWERCHART 2.90 X109L Monocytes 0.51 0.30 - POWERCHART 0.90 X109L Eosinophils 0.21 0.05 - POWERCHART 0.50 X109L Absolute 0.03 0.00 - POWERCHART Basophil 0.30 X109L Specimen Anatomical Collection Method Collection Time Receive d Time (Source) Location / / Volume Laterality Blood 02/13/2016 3:38 PM 6 3:38 CDT PM CDT Oleg Borjas III, P.A.-C., M.S. LAB BLOOD ADD-ON Performing Organization Address City/State/ZIP Code Phon e Number POWERCHART CBC with Differential (02/13/2016 3:38 PM CDT) athologist Signature Leukocytes 6.0 3.4 - 10.5 POWERCHART X109L Erythrocytes 4.25 3.90 - 5.03 POWERCHART Z0850T Hemoglobin 13.1 12.0 - 15.5 POWERCHART GDL Hematocrit 38.9 34.9 - 44.5 POWERCHART MCV 91.5 82.0 - 98.0 POWERCHART FL HX RDW 13.1 11.9 - 15.5 POWERCHART Platelet Count 178 150 - 450 POWERCHART X109L Specimen (Source) Anatomical Collection Method Collection Time Re ceived Time Location / / Volume Laterality Blood 02/13/2016 3:38 PM CDT Oleg Borjas III, P.A.-C., M.S. LAB BLOOD ADD-ON Performing Organization Address City/State/ZIP Code Phon e Number POWERCHART BMP (Basic Metabolic Panel) (02/13/2016 3:38 PM CDT) P athologist Signature Sodium, S 139 135 - 145 POWERCHART MMOLL Comment: Reference values have not been established for patients that are less than 12 months of age. Potassium, S 4.4 3.6 - 5.2 MMOLL POWERCHART Comment: Reference values have not been established for patients that are less than 12 months of age. Chloride, S 102 98 - 107 MMOLL POWERCHART Comment: Reference values have not been established for patients that are less than 12 months of age. CO2 Total 26 22 - 29 MMOLL POWERCHART Comment: Reference values have not been established for patients that are less than 12 months of age. BUN (Blood Urea Nitrogen), S 10 6 - 24 MGDL POWERCHART Creatinine 0.58 0.51 - 0.95 MGDL POWERCHART Comment: Reference values have not been establish ed for patients that are <12 months of age. ESTIMATED GFR >60 mL/min/BSA Note: eGFR results will not be calculate d for patients <18 Calcium, Total, S 9.4 8.6 - 10.3 MGDL POWERC NANCE Anion Gap 12 7 - 15 MMOLL POWERCHART Comment: Less than 2 years- No establish ed reference range. HXeGFR (MDRD) >60 >=60 [id number] POWERCHART eGFR Black/ >60 >=60 [id number] POWERCHART Glucose 108 70 - 139 MGDL POWERCHART Comment: ADA [...] Time Location / / Volume Laterality Blood 02/13/2016 3:38 PM CDT Oleg Borjas III, P.A.-C., M.S. LAB BLOOD ADD-ON Performing Organization Address City/State/ZIP Code Phon e Number POWERCHART ECG 12 Lead (02/13/2016 2:29 PM CDT) Specimen (Source) Anatomical Collection Method Collection Time Re ceived Time Location / / Volume Laterality 02/13/2016 2:29 PM CDT [facility] - 02/13/2016 2:29 PM CDT Test Reason : DIZZY Blood Pressure : / mmHG Vent. Rate : 089 BPM ? Atrial Rate : 089 BPM ?? P-R Int : 182 ms ?QRS D ur : 076 ms ?QT Int : 374 ms ? P-R-T Axe s : -03 048 028 degrees ?? QTc Int : 455 ms Normal sinus rhythm Nonspecific T wave abnormality When compared with ECG of 21-JUL-2015 00 :27, No significant change was found Referred By: GRACIELA COMBS ? Confirmed By:PABLO NUÑEZ MD Procedure Note Provider, Lupe Villanueva - 09/17/2016F ormatting of this note might be different from the original. Test Reason : DIZZY Blood Pressure : / mmHG Vent. Rate : 089 BPM Atrial Rate : 089 B PM P-R Int : 182 ms QRS Dur : 076 ms QT Int : 374 ms P-R-T Axes : -03 048 02 8 degrees QTc Int : 455 ms Normal sinus rhythm Nonspecific T wave abnormality When compared with ECG of 21-JUL-2015 00 :27, No significant change was found Referred By: GRACIELA COMBS Confirmed By :PABLO NUÑEZ MD Pablo Nuñez M.D. ECG ORDERABLES Performing Organization Address City/State/ZIP Code [facility] e Number [facility] [address] [place] [phone] documented in this encounter Visit Diagnoses Not on filedocumented in this encounter
--- OUTSIDE RECORDS SUMMARY | 2022-02-03 23:57 | XMS_ITS | Encounter Summary ---
:1985 Author Organization [facility] Address [address] [place] [address] Care Team Providers Name Role Phone Unavailable Primary Care Provider Unavailable Encounter Details Date Type Department Care Team Description 07/25/2015 Hospital Encounter HX [facility] ED Lane Shi M.D. [address] [place] [phone] (Wo rk) Social History Tobacco Use Types Packs/Day Years Used Date Smoking Tobacco: Never Assessed Sex Assigned at Date Recorded Not on file documented as of this encounter Last Filed Vital Signs Vital Sign Reading Time Taken Comments Blood Pressure 131/80 07/25/2015 3:08 PM CDT Pulse 102 07/25/2015 3:08 PM CDT Temperature - - Respiratory Rate 16 07/25/2015 3:08 PM CDT Oxygen Saturation - - Inhaled Oxygen Concentration - - Weight - - Height - - Body Mass Index - - documented in this encounter Discharge Summaries Kylee Woodard, REmekaN. - 07/25/2015 3:59 PM CDT ED Depart Summary [facility] Emergency Department / Urgent Care Clinical Discharge Summary PERSON INFORMATION Name SILVIA BLANCHARD Age 30 Years 1985 12:00 AM Sex Female Language Setswana PCP SOFIE VÁZQUEZ MD Marital Status Visit Id Visit Reason Chest pain - Pleuritic; chest pain Specialty Enc Type Emergency Med Service Emergency Medicine Referred by [employer] [facility] ED/UC Discharge 07/25/2015 3:59 PM Tracking Id [id number] Checkout 07/25/2015 3:59 PM Checkin 07/25/2015 3:01 PM Acuity 3 -Urgent Dispo Type * Discharged to Home or Self Care Arrival 07/25/2015 3:01 PM Reg Status Complete LOS 000 00:58 Address: [address] [place] [phone] Comment: PROVIDER INFORMATION Provider Role Provider Contact Time LANE SHI MD ED Provider 07/25/15 15:10 KYLEE WOODARD [employer] Nurse 07/25/15 15:32 DIAGNOSIS Comment: PATIENT EDUCATION INFORMATION Instructions: CHEST WALL PAIN, Costochondritis Follow up: With: Address: When: SOFIE VÁZQUEZ [address] [place] [phone] Business (1) Within As Needed Comments: rest drink lots of fluid Ibuprofen 600 to 800 mg po three times a day or Take Aleve 2 tabs po bid , Take these meds with food and water Can take Tylenol 2 extra strength every 6 hrs in ddition to Ibuprofen Tramadol as needed in addition to this for sever pain Follow in clinic as needed Source: [facility] POWERCHART Document Id: [id number] Kylee Woodard R.N. - 07/25/2015 3:59 PM CDT ED Discharge Instructions [address] [place] [address] Name: SILVIA BLANCHARD Date of : 1985 12:00 AM Visit Date: 07/25/2015 3:01 PM [facility] Number: [id number] Address: [address] [place] [phone] Primary Care Provider: SOFIE VÁZQUEZ MD IMPORTANT: [facility] in [place] would like to thank you for allowing us to assist youwith your healthcare needs. The following includes patient education materials and information regarding your injury/illness. Diagnosis: Follow-Up Instructions: With: Address: When: SOFIE VÁZQUEZ [address] [place] [phone] Business (1) Within As Needed Comments: rest drink lots of fluid Ibuprofen 600 to 800 mg po three times a day or Take Aleve 2 tabs po bid , Take these meds with food and water Can take Tylenol 2 extra strength every 6 hrs in ddition to Ibuprofen Tramadol as needed in addition to this for sever pain Follow in clinic as needed Your Upcoming Appointments: Date Time Location Provider 07/26/2015 08:15 [facility] Family [facility] Leidy HOWARD, Bacilio Escalona Patient Education Materials: Chest Wall Pain: Costochondritis The chest pain that you have had today is caused by Costochondritis. This condition is due to an inflammation of the cartilage joining the ribs to the breastbone. It is not caused by heart or lung problems. Although the exact cause for costochondritis is not known, it often occurs during times of emotional stress. It can be painful, but it is not dangerous. It usually disappears within one to two weeks, but may recur. Rarely, a more serious condition may cause symptoms similar to costochondritis; therefore, watch for the warning signs listed below. Home Care: ?? If you feel that emotional stress is a cause of your condition, try to identify sources of that stress. It may not be obvious! Learn ways to deal with the stress in your life such as regular exercise, muscle relaxation, meditation, or simply taking time out for yourself. For more information about this, consult your doctor or go to a local bookstore and review books and tapes available on the subject of stress reduction. ?? You may use acetaminophen (Tylenol) or ibuprofen (Motrin, Advil) to control pain, unless another pain medicine was prescribed. [ NOTE: If you have liver disease or ever had a stomach ulcer, talk with your doctor before using these medicines.] ?? The use of heat (hot wet compress or heating pad) with or without local analgesic creams (Deep Heat Rub, Isaias Alcazar) will be helpful to reduce pain. Follow Up with your doctor as directed or sooner if you do not start to improve within the next two days. Get Prompt Medical Attention if any of the following occur: ?? A change in the type of pain: if it feels different, becomes more severe, lasts longer, or spreads into your shoulder, arm, neck, jaw or back ?? Shortness of breath or increased pain with breathing ?? Weakness, dizziness, or fainting ?? Cough with dark colored sputum (phlegm) or blood ?? Abdominal pain ?? Dark red or black stools ?? Fever of 100.4?F (38?C) or higher, or as directed by your healthcare provider ?? [phone] Lennie Swain, [address] [place] [address], [place] [address]. All rights reserved. This information is not [...] you dont have one. Go to [email or web address] and click on Create Your Account. Then, follow the directions to complete the online form. Youll be asked for your [facility] number which you can find at the top of this document. ED Tests and Procedures: Order Status Discharge Prescriptions & Home Medications: Medication/Strength Dose Route Frequency Indications/Special Instructions/Comments/Notes Misc Prescription (Work excuse) See Instructions Please excuse from work 07/25/15 d/t acute illness traMADol (traMADol 50 mg oral tablet) See Instructions Pain 1 to 2 tab(s) PO q6hr as needed for pain omeprazole (omeprazole 40 mg oral delayed release capsule) 40 mg Oral once a day clindamycin (clindamycin 300 mg oral capsule) 300 mg Oral every 6 hours for 14 Days lidocaine topical (Lidoderm 5% topical film) 1 patch(es) Topical once a day Apply to intact skin andremove patch after a maximum of 12 hr of application within a 24 hr period polyethylene glycol 3350 with electrolytes (GoLYTELY oral powder for reconstitution) 240 mL Oral every 10 minutes FLUoxetine (Prozac 10 mg oral tablet) 10 mg Oral once a day Comment: Attention: [...] document has images extracted. Please consider using [employer] for all your patient education needs. Source: [facility] Document Id: [id number] documented in this encounter ED Notes Kylee Woodard R.N. - 07/25/2015 3:58 PM CDT ED Pain Assessment ED Pain Assessment Entered On: 07/25/2015 15:58 CDT Performed On: 07/25/2015 15:58 CDT by KYLEE WOODARD RN Pain Assessment Pain Symptoms : Yes Pain Medication Requested : No KYLEE WOODARD RN - 07/25/2015 15:58 CDT Pain Scale Pain Scale Verbal 0-10 : Open KYLEE WOODARD RN - 07/25/2015 15:58 CDT Pain Pain Assessment Grid Pain 1 Location : Chest Intensity : 8 KYLEE WOODARD RN - 07/25/2015 15:58 CDT Source: [employer] Document Id: [id number] CDT!11 Kylee Woodard R.N. - 07/25/2015 3:57 PM CDT ED Disposition Summary ED Disposition Summary Entered On: 07/25/2015 15:58 CDT Performed On: 07/25/2015 15:57 CDT by KYLEE WOODARD RN ED Disposition Summary Present in Room During Exam/Procedure : Alone Mode of Discharge : Ambulatory Transportation : Private vehicle Printed Discharge Instructions Given to Patient : Yes Patient Status at Discharge from ED : Unchanged Comment : dc instructions given. Denies questions. KYLEE WOODARD RN - 07/25/2015 15:57 CDT Source: [facility] RoomClip Document Id: [id number] CDT!8 Lane Shi M.D. - 07/25/2015 3:38 PM CDT Chest pain - Pleuritic Patient: SILVIA BLANCHARD Age: 30 years Sex: Female : 1985 Author: LANE SHI MD Attachments: None Basic Information Additional information: Chief Complaint from Nursing Triage Note : Chief Complaint Description 07/25/2015 15:07 CDT Chief Complaint Description midsternal chest pain. pt stated it hurts to take adeep breath. sx started 6 days ago. . History of Present Illness The patient presents with chest pain. The onset was 3 days ago. The course/duration of symptoms is constant. Location: Generalized chest. Radiating pain: none. The character of symptoms is sharp. The degree at onset was moderate. The degree at maximum was moderate. The degree at present is moderate. There are exacerbating factors including movement and coughing. The relieving factor is none. Risk factors consist of none. Prior episodes: none. Associated symptoms: denies shortness of breath, denies nausea and denies vomiting. pt has 3 weeks h/o illness. first she had strep and was treated for that. was seen afew times after that. was seen in ER on 07/20 with plwuritic chest pain.. Labs and Xray werenegative. nl D dimer. was diagnosed with costochondritis. returned today with cont d chest pain. says she is very tender and every movement hurts. she has been taking Ibuprofen 800 mg Po three times ADAA and it is not helping. no new cough or fever . no SOB. . Review of Systems Constitutional symptoms: Negative except [...] except as documented in HPI. Neurologic symptoms: Negative except as documented in HPI. Psychiatric symptoms: Negative except as documented in HPI. Additional review of systems information: All other systems reviewed and otherwise negative. Health Status Allergies: Allergic Reactions (Selected) NKA. Past Medical/ Family/ Social History Medical history: No active or resolved past medical history items have been selected or recorded.. Physical Examination Vital Signs: Vital Signs 07/25/2015 15:08 CDT Temperature Core 37.5 DegC Peripheral Pulse Rate 102 /min HI Respiratory Rate 16 /min SpO2 97 % Systolic Blood Pressure 131 mmHg Diastolic Blood Pressure 80 mmHg Mean Arterial Pressure 97 mmHg , per nurse's notes. General: Alert, mild distress and anxious. Head: Normocephalic. Ears, nose, mouth and throat: Oral mucosa moist. Cardiovascular: Regular rate and rhythm. Respiratory: Lungs are clear to auscultation and respirations are non-labored. Chest wall: On exam: Bilateral, moderate, tenderness, reproduces complaint, pt is very tender to palpation. Musculoskeletal: Normal ROM. normal strength. Gastrointestinal: Soft, Nontender and Non distended. Neurological: No focal neurological deficit observed. Medical Decision Making Differential Diagnosis:Costochondritis, pleurisy, chest wall pain. Documents reviewed:Emergency department nurses' notes, emergency department records. Electrocardiogram:Normal sinus rhythm. Impression and Plan Diagnosis costochondritis Plan Condition: Stable. Disposition: Discharged: to home. Prescriptions: Prescription Certified Ophthalmic Technician Pharmacy: traMADol 50 mg oral tablet (Prescribe): See Instructions, 1 to 2 tab(s) PO q6hr as needed for pain, PRN: Pain, 20 tab(s), 0 Refill(s). Patient was given the following educational materials: CHEST WALL PAIN, Costochondritis. Follow up with: SOFIE VÁZQUEZ Within As Needed rest drink lots of fluid Ibuprofen 600 to 800 mg po three times a day or Take Aleve 2 tabs po bid , Take these meds with foodand water Can take Tylenol 2 extra strength every 6 hrs in ddition to Ibuprofen Tramadol as needed in addition to this for sever pain Follow in clinic as needed. Electronically Signed By: LANE SHI MD On: 07/25/2015 05:29 PM Modified by and Electronically Signed by: LANE SHI MD On: 07/25/2015 05:29 PM Source: [facility] POWERCHART Document Id: {[id number]} Kylee Woodard RDevendra - 07/25/2015 3:08 PM CDT ED Primary Assessment Document Has Been Updated ED Primary Assessment Entered On: 07/25/2015 15:31 CDT Performed On: 07/25/2015 15:08 CDT by KYLEE WOODARD RN Reason For Visit (As Of: 07/25/2015 15:42:21 CDT) Problems(Active) No Chronic Problems (Cerner :NKP ) Name of Problem: No Chronic Problems ; Recorder: NATY XIE MD; Confirmation: Confirmed ; Classification: Medical ; Code: NKP ; Last Updated: 05/15/2013 16:30 DIRECTOR RECORDS MANAGEMENT; Life Cycle Date: 05/15/2013 ; Life Cycle Status: Active ; Vocabulary: Cerner Diagnoses(Active) Chest pain - Pleuritic Date: 07/25/2015 ; Diagnosis Type: Reason For Visit ; Confirmation: Complaintof ; Clinical Dx: Chest pain - Pleuritic ; Classification: Medical ; Clinical Service: Emergency medicine ; Code: PNED ; Probability: 0 ; Diagnosis Code: [id number] Triage Vital Signs Assessed : Yes Are you ? : No Status : Patient denies KYLEE WOODARD RN - 07/25/2015 15:41 CDT Mode of Arrival ED : Private vehicle, Wheelchair Track : Medical Languages : Setswana Treatments Prior to Arrival : None Is Patient Female and 13-50 no hysterectomy : Yes KYLEE WOODARD RN - 07/25/2015 15:28 CDT Vital Signs Temperature Core : 37.5 DegC(Converted to: 99.5 DegF) Peripheral Pulse Rate : 102 /min (HI) Respiratory Rate : 16 /min Systolic Blood Pressure : 131 mmHg Diastolic Blood Pressure : 80 mmHg NIBP Mean : 97 mmHg SpO2 : 97 % Oxygen Therapy : Room air KYLEE WOODARD RN - 07/25/2015 15:41 CDT Pain Assessment Pain Symptoms : Yes KYLEE WOODARD YANELI - 07/25/2015 15:28 CDT Pain Scale Pain Scale Verbal 0-10 : Open KYLEE WOODARD YANELI - 07/25/2015 15:28 CDT Pain Pain Assessment Grid Pain 1 Location : Chest Intensity : 8 KYLEE WOODARD YANELI - 07/25/2015 15:28 CDT DENNY DCP GENERIC CODE Tracking Group : [facility] ED/ Tracking Acuity : 3 -Urgent KYLEE WOODARD YANELI - 07/25/2015 15:28 CDT Respiratory Airway : Patent Respirations : Unlabored Respiratory Pattern : Regular Oxygen Therapy : Room air KYLEE WOODARD YANELI - 07/25/2015 15:28 CDT Cardiovascular Heart Rhythm : Regular Skin Color : Normal for ethnicity Skin Description : Dry Skin Temperature : Warm KYLEE WOODARD YANELI - 07/25/2015 15:28 CDT Neurological Last Well Time Known : Not applicable Level of Consciousness : Alert Orientation : Oriented x 3 Characteristics of Speech : Appropriate for age Neuro Patient Stated Symptoms : None KYLEE WOODARD YANELI - 07/25/2015 15:28 CDT ED Psychosocial Affect/Behavior : Anxious Domestic Abuse Concerns : None Behavioral Health Screen/Safety Assmt : No ANTWAN WOODARDSylvia Hickey RN - 07/25/2015 15:28 CDT Gastrointestinal Nutrition ED : Adequate KYLEE WOODARD Ruperto GROVES - 07/25/2015 15:28 CDT Musculoskeletal Fall Prevention Education Provided : Yes Musculoskeletal Note : Pt presents with 6 day hx of chest wall pain that is worsening. Pt states shehas been seen recently for sore throat which has now resolved and does have an abx rx that she has not started. Anterior chest painful with touch, cough, sneeze and any (Comment: movement. Last ibuprofen at 0400 but pt states it does not work for the pain. [ANTWAN WOODARDSylvia Hickey RN - 07/25/2015 15:28 CDT] ) YAMILET KYLEE M RN - 07/25/2015 15:28 CDT Social Habits Exposure to Tobacco Smoke : Patient smokes, Other: occ alcohol Smoking Status : Current every day smoker Tobacco 2A : Yes Tobacco Use/Currently Using : Yes Tobacco Use/Last 30 Days : Yes Tobacco Use/Last 12 months : Yes Type : Cigarettes: 20-30 per day Tobacco Use/Advised to Quit : No KYLEE WOODARD RN - 07/25/2015 15:28 CDT Alcohol Use Grid Alcohol Use : Yes Frequency : Occasionally KYLEE WOODARD RN - 07/25/2015 15:28 CDT Recreational Drug Use Grid Drug Use : None KYLEE WOODARD RN - 07/25/2015 15:28 CDT Source: [facility] [employer] Document Id: [id number] CDT!14 Sangita Allen R.N. - 07/25/2015 3:07 PM CDT ED Triage Assessment Document Has Been Updated ED Triage Assessment Entered On: 07/25/2015 15:08 CDT Performed On: 07/25/2015 15:07 CDT by SANGITA ALLEN RN Reason For Visit (As Of: 07/25/2015 15:08:27 CDT) Problems(Active) No Chronic Problems (Cerner :NKP ) Name of Problem: No Chronic Problems ; Recorder: NATY XIE MD; Confirmation: Confirmed ; Classification: Medical ; Code: NKP ; Last Updated: 05/15/2013 16:30 DIRECTOR RECORDS MANAGEMENT; Life Cycle Date: 05/15/2013 ; Life Cycle Status: Active ; Vocabulary: Cerner Diagnoses(Active) Chest pain - Pleuritic Date: 07/25/2015 ; Diagnosis Type: Reason For Visit ; Confirmation: Complaintof ; Clinical Dx: Chest pain - Pleuritic ; Classification: Medical ; Clinical Service: Emergency medicine ; Code: PNED ; Probability: 0 ; Diagnosis Code: [id number] Triage Chief Complaint Description : midsternal chest pain. pt stated it hurts to take a deep breath. sx started 6 days ago. Information Given By : Patient Present in Room During Exam/Procedure : Alone Mode of Arrival ED : Private vehicle, Wheelchair Track : Medical Languages : Setswana Patient Informed of Triage Location : Emergency department Treatments Prior to Arrival : None Is Patient Female and 13-50 no hysterectomy : Yes SANGITA ALLEN RN - 07/25/2015 15:07 CDT Pain Assessment Pain Symptoms : Yes SANGITA ALLEN RN - 07/25/2015 15:07 CDT Pain Scale Pain Scale Verbal 0-10 : Open SANGITA ALLEN RN - 07/25/2015 15:07 CDT Pain Pain Assessment Grid Pain 1 Location : Chest SANGITA ALLEN RN - 07/25/2015 15:07 CDT DENNY DENNY Level 1 : No DENNY Level 2 : No DENNY Level 3 : Many SANGITA ALLEN RN - 07/25/2015 15:07 CDT DCP GENERIC CODE Tracking Acuity : 3 -Urgent Tracking Group : [facility] ED/ SANGITA ALLEN RN - 07/25/2015 15:07 CDT Source: [employer] Document Id: [id number] CDT!26 documented in this encounter Miscellaneous Notes Miscellaneous - Conversion, Historical Provider Ser - 07/25/2015 3:59 PM CDT Coding Summary-Paper Based CODING DATE: 08/01/2015 FINAL [facility] STATUS: * Discharged to Home or Self Care PAYOR: Medicaid ADMIT DX: R07.9 Chest pain, unspecified REASON FOR VISIT DX: R07.9 Chest pain, unspecified FINAL DX: PRINCIPAL: M94.0 Chondrocostal junction syndrome [Tietze] SECONDARY: F17.210 Nicotine dependence, cigarettes, uncomplicated PROCEDURES DOCTOR NAME DATE NOTE: The code number assigned matches the documented diagnosis and / or procedure in the patient's chart. However, the narrative phrase printed from the coding software may appear abbreviated, or result in slightly different terminology. Coded By: KATYA MAGANA Date Saved: 08/01/2015 08:58 am Source: [employer] Document Id: [id number] Miscellaneous - Kylee Woodard R.N. - 07/25/2015 3:58 PM CDT Valuables/Belongings Valuables/Belongings Entered On: 07/25/2015 15:58 CDT Performed On: 07/25/2015 15:58 CDT by KYLEE WOODARD RN Valuables/Belongings Comment : pt declined offer of Toradol in ER KYLEE WOODARD RN - 07/25/2015 15:58 CDT Source: [facility] [employer] Document Id: [id number] CDT!3 documented in this encounter Plan of Treatment Not on filedocumented as of this encounter Visit Diagnoses Not on filedocumented in this encounter
--- OUTSIDE RECORDS SUMMARY | 2022-02-03 23:57 | XMS_ITS | Encounter Summary ---
:1985 Author Organization [facility] Address [address] [place] [id number] Care Team Providers Name Role Phone Unavailable Primary Care Provider Unavailable Encounter Details Date Type Department Care Team Description 07/17/2015 Hospital Encounter [facility] Andrea Archibald APRN, C.N.P., R. N. [address] [place] [phone] (Wo rk) Social History Tobacco Use Types Packs/Day Years Used Date Smoking Tobacco: Never Assessed Sex Assigned at Date Recorded Not on file documented as of this encounter Last Filed Vital Signs Vital Sign Reading Time Taken Comments Blood Pressure 137/75 07/17/2015 8:44 AM CDT Pulse 96 07/17/2015 8:44 AM CDT Temperature - - Respiratory Rate 18 07/17/2015 8:44 AM CDT Oxygen Saturation - - Inhaled Oxygen Concentration - - Weight - - Height 169 cm (5' 6.54) 07/17/2015 8:44 AM CDT Body Mass Index - - documented in this encounter Discharge Summaries Niya Flynn, L.P.N. - 07/17/2015 8:55 AM CDT ED Depart Summary [facility] Emergency Department / Urgent Care Clinical Discharge Summary PERSON INFORMATION Name SILVIA STEELE Age 30 Years 1985 12:00 AM Sex Female Language Mexican PCP SOFIE VÁZQUEZ MD Marital Status Single Visit Id Visit Reason Throat pain - Adult; THROAT PROBLEMS [facility] Urgent Care Referred by [facility] ED/UC Discharge 07/17/2015 8:54 AM Tracking Id [id number] Checkout 07/17/2015 8:54 AM Checkin 07/17/2015 8:18 AM Acuity 4 -Less Urgent Dispo Type * Discharged to Home or Self Care Arrival 07/17/2015 8:18 AM Reg Status Complete LOS 000 00:36 Address: [address] [place] [address] Comment: PROVIDER INFORMATION Provider Role Provider Contact Time KAYLENE ARCHIBALD SCREEN PRINTER ED Provider 07/17/15 08:44 NIYA FLYNN LPN ED Nurse 07/17/15 08:44 DIAGNOSIS Comment: PATIENT EDUCATION INFORMATION Instructions: Follow up: Source: [facility] POWERCHART Document Id: [id number] Niya Flynn L.P.N. - 07/17/2015 8:55 AM CDT ED Discharge Instructions [facility] [address] [place] [address] Name: SILVIA STEELE Date of : 1985 12:00 AM Visit Date: 07/17/2015 8:18 AM [facility] Number: [phone] Address: [address] [place] [address] Primary Care Provider: SOFIE VÁZQUEZ MD IMPORTANT: [facility] in [place] would like to thank you for allowing us to assist youwith your healthcare needs. The following includes patient education materials and information regarding your injury/illness. Diagnosis: Follow-Up Instructions: Your Upcoming Appointments: Date Time Location Provider No Appointments found Patient Education Materials: Consider Using Patient Online [...] if you dont have one. Go to [email or web address] and click on Create Your Account. Then, follow the directions to complete the online form. Youll be asked for your [facility] number which you can find at the top of this document. ED Tests and Procedures: Order Status Discharge Prescriptions & Home Medications: Medication/Strength Dose Route Frequency Indications/Special Instructions/Comments/Notes Misc Prescription (Work excuse) See Instructions Please excuse from work from 07/11/15 to 07/13/15 d/tacute illness Misc Prescription (work excuse) See Instructions The patient was seen in the ED. Please excuse from work for the following: Seen in ED and should not be working until infection improves. dexamethasone (dexamethasone 2 mg oral tablet) 10 mg Oral once oxyCODONE (oxyCODONE 5 mg oral tablet) 5 mg Oral every 4 hours as needed for pain Take on 06/13/15 amoxicillin-clavulanate (Augmentin 875 mg-125 mg oral tablet) 1 tab(s) Oral two times a day for 10 Days penicillin V potassium (penicillin V potassium 500 mg oral tablet) 500 mg Oral two times a day for 10 Days lidocaine topical (Lidoderm 5% topical film) [...] ride home with a responsible constitution party. CEDRIC Ward KRISTINA LYNN , or responsible constitution [...] ride home with a responsible constitution party. CEDRIC Ward KRISTINA LYNN , or responsible constitution party have received this information and my questions have been answered. I have discussed any challenges I see with this plan with the nurse or physician. Patient Signature or Responsible Democrat/Relationship Date Time Provider Signature Date Time Source: [facility] POWERCHART Document Id: [id number] documented in this encounter H&P Notes Niya Flynn L.P.N. - 07/17/2015 8:44 AM CDT Urgent Care Intake Urgent Care Intake Entered On: 07/17/2015 8:46 CDT Performed On: 07/17/2015 8:44 CDT by NIYA FLYNN FURNACE OPERATOR AND TENDER Intake Chief Complaint : ST-STARTED WEDNESDAY Temperature Core : 37.3 DegC(Converted to: 99.1 DegF) Peripheral Pulse Rate : 96 /min Respiratory Rate : 18 /min Systolic Blood Pressure : 137 mmHg Diastolic Blood Pressure : 75 mmHg NIBP Mean : 96 mmHg SpO2 : 96 % Oxygen Therapy : Room air Height : 169 cm(Converted to: 5 ft 7 inch(es), 67 inch(es)) NIYA FLYNN FURNACE OPERATOR AND TENDER - 07/17/2015 8:44 CDT General Info Information Given By : Patient Languages : Mexican Is Patient Female and 13-50 no hysterectomy : Yes Status : Patient denies Are you ? : No NIYA FLYNN LPN - 07/17/2015 8:44 CDT Subjective Pain Symptoms : Yes NIYA FLYNN LPN - 07/17/2015 8:44 CDT Pain Scale Pain Scale Verbal 0-10 : Open NIYA FLYNN LPN - 07/17/2015 8:44 CDT Pain Pain Assessment Grid Pain 1 Location : Throat Intensity : 7 NIYA FLYNN LPN - 07/17/2015 8:44 CDT Dependent Habits Exposure to Tobacco Smoke : Patient smokes, Other: occ alcohol Smoking Status : Current every day smoker Tobacco 2A : Yes Tobacco Use/Currently Using : Yes Tobacco Use/Last 30 Days : Yes Tobacco Use/Last 12 months : Yes Type : Cigarettes: Less than 20 per day Tobacco Use/Advised to Quit : Yes NIYA FLYNN LPN - 07/17/2015 8:44 CDT Caffeine Use Grid Caffeine Use : None NIYA FLYNN LPN - 07/17/2015 8:44 CDT Nutrition Nutrition Risk Factors by History Adult : None NIYA FLYNN ELLY - 07/17/2015 8:44 CDT Functional Current Daily Living Assistance : None ROVERTONIYA Jess SANABRIA - 07/17/2015 8:44 CDT Psychosocial Domestic Abuse Concerns : None Behavioral Health Screen/Safety Assmt : No Confucianist Preference : No Confucianist Affiliation NIYA FLYNN Jess SANABRIA - 07/17/2015 8:44 CDT Advance Directive Advanced Directives : No Advance Directive Additional Information : No NIYA FLYNN LPN - 07/17/2015 8:44 CDT Educ Needs Learning Style Preference Adult Grid Patient : Printed materials Family : None NIYA FLYNN Jess SANABIRA - 07/17/2015 8:44 CDT Source: [employer] Document Id: [id number] CDT!54 documented in this encounter ED Notes Niya Flynn L.P.N. - 07/17/2015 8:54 AM CDT ED Disposition Summary ED Disposition Summary Entered On: 07/17/2015 8:54 CDT Performed On: 07/17/2015 8:54 CDT by NIYA FLYNN LPN ED Disposition Summary Printed Discharge Instructions Given to Patient : Yes NIYA FLYNN LPN - 07/17/2015 8:54 CDT [facility] Document Id: [id number] CDT!3 Nola La R.N. - 07/17/2015 8:21 AM CDT ED Triage Assessment Document Has Been Updated ED Triage Assessment Entered On: 07/17/2015 8:24 CDT Performed On: 07/17/2015 8:21 CDT by NOLA LA RN Reason For Visit (As Of: 07/17/2015 08:24:59 CDT) Problems(Active) No Chronic Problems (Cerner :NKP ) Name of Problem: No Chronic Problems ; Recorder: NATY XIE MD; Confirmation: Confirmed ; Classification: Medical ; Code: NKP ; Last Updated: 05/15/2013 16:30 TAR HEEL; Life Cycle Date: 05/15/2013 ; Life Cycle Status: Active ; Vocabulary: Karen Diagnoses(Active) Throat pain - Adult Date: 07/17/2015 ; Diagnosis Type: Reason For Visit ; Confirmation: Complaint of; Clinical Dx: Throat pain - Adult ; Classification: Medical ; Clinical Service: Non-Specified ; Code: PNED ; Probability: 0 ; Diagnosis Code: [id number] Triage Chief Complaint Description : Pt arrives with c/o sore throat. Pt states she has been here numerous times for this. States she has been on abx and steroids, and does not feel that she is improving. Pt placed in second triage. Information Given By : Patient Present in Room During Exam/Procedure : Alone Mode of Arrival ED : Private vehicle Track : Medical Languages : Mexican Treatments Prior to Arrival : Home treatments Are you ? : No Is Patient Female and 13-50 no hysterectomy : Yes Status : Patient denies NOLA LA RN - 07/17/2015 8:22 CDT Pain Assessment Pain Symptoms : Yes NOLA LA RN - 07/17/2015 8:22 CDT Pain Scale Pain Scale Verbal 0-10 : Open NOLA LA RN - 07/17/2015 8:22 CDT Pain Pain Assessment Grid Pain 1 Location : Throat NOLA LA RN - 07/17/2015 8:22 CDT DENNY DCP GENERIC CODE Tracking Acuity : 4 -Less Urgent Tracking Group : [facility] ED/ NOLA LA RN - 07/17/2015 8:22 CDT Source: [employer] Document Id: [id number] CDT!24 documented in this encounter Miscellaneous Notes Miscellaneous - Kaylene Archibald C.N.P., R.N. - 07/17/2015 12:00 AM CDT [id number] Into a subject which is going to put as. Silvia is a 30-year-old female who I have been asked to second triage to the Emergency Room or to Urgent Care. Patient has been seen 3 times in the last 7 days. She was diagnosed a week ago with strep pharyngitis. Started on penicillin. Was not getting any better. Had changed to amoxicillin steroids. She has had IV fluid and IV medication in the Emergency Room. At one point she was told that she would need to have the tonsils drain and so she is here today with continued tonsillar pain, throat pain rating it a 7 to 8 of 10. Difficulty swallowing although she is managing her secretions. She is taking fluids in. Has a patent airway. I did call ENT Department in [place] and our ENT provider is in surgery today and tomorrow and has no available appointments for this patient, so I have called [facility], Triage Room and spoke with YANELI Ashford. He has Silvia's information and Silvia will have her drive her to the Emergency Room at [facility] where she will be seen today by ENT for further evaluation and treatment. Silvia is very happy with this. Patient's airway is patent. She should be in no danger to drive directly or have her drive directly to [facility]. If she should have any problems with the travel,to stop the car and dial 911 for emergency response. Silvia's throat, tonsils are enlarged about a +2 to +3. No patchy exudate. Uvula is midline. No evidence of a peritonsillar abscess. Neck is supple. She does have shotty nodes in the right and left anterior cervical chain. Denies any heart pain. No shortness of breath. She is ambulatory, alert and orientated and should have no difficulty with travels to [facility]. Patient was given the last Emergency Room notes to take with her to [facility]. Patient is happy with this plan. Kaylene Archibald R.N., C.N.P./guillermo Electronically Signed By: KAYLENE ARCHIBALD CNP On: 07/17/2015 02:03 PM Source[facility] Document Id: [id number] documented in this encounter Plan of Treatment Not on filedocumented as of this encounter Visit Diagnoses Not on filedocumented in this encounter
--- OUTSIDE RECORDS SUMMARY | 2022-02-03 23:57 | XMS_ITS | Encounter Summary ---
:1985 Author Organization [facility] Address [address] [place] [id number] Care Team Providers Name Role Phone Unavailable Primary Care Provider Unavailable Encounter Details Date Type Department Care Team Description 04/02/2015 Hospital Encounter HX [facility] ED Tyson Joel M.D. Social History Tobacco Use Types Packs/Day Years Used Date Smoking Tobacco: Never Assessed Sex Assigned at Date Recorded Not on file documented as of this encounter Last Filed Vital Signs Vital Sign Reading Time Taken Comments Blood Pressure 128/83 04/02/2015 10:00 PM VENEER MARKER Pulse 93 04/02/2015 10:00 PM VENEER MARKER Temperature - - Respiratory Rate 18 04/02/2015 10:00 PM VENEER MARKER Oxygen Saturation - - Inhaled Oxygen Concentration - - Weight - - Height - - Body Mass Index - - documented in this encounter Discharge Summaries Jonas El, REmekaN. - 04/02/2015 10:42 PM CST ED [place] [address] Name: SILVIA STEELE Date of : 1985 12:00 AM Visit Date: 04/02/2015 9:46 PM [facility] Number: [id number] Address: [address] [place] [id number] Primary Care Provider: SOFIE VÁZQUEZ MD IMPORTANT: [facility] in [place] would like to thank you for allowing us to assist youwith your healthcare needs. The following includes patient education materials and information regarding your injury/illness. Diagnosis: Pharyngitis (Ph) Acute Follow-Up Instructions: With: Address: When: Return to Emergency Department Within As Needed With: Address: When: SOFIE VÁZQUEZ [address] [place] [phone] Business (1) Within As Needed Your Upcoming Appointments: Date Time Location Provider No Appointments found Patient Education Materials: Viral Pharyngitis (Sore Throat) Your throat pain is due to an infection called Viral Pharyngitis, commonly known as Sore Throat.This is a contagious illness. It is spread through the air by coughing, kissing or by touching others after touching your mouth or nose. Symptoms include throat pain worse with swallowing, aching all over, headache and fever. Unlike strep throat, which is a bacterial infection, this illness does not require treatment with an antibiotic. Home Care: If your symptoms are severe, rest at home for the first 2-3 days. Children: Use acetaminophen (Tylenol) for fever, fussiness or discomfort. In infants over six monthsof age, you may use ibuprofen (Children's Motrin) instead of Tylenol. [NOTE: If your child has chronic liver or kidney disease or ever had a stomach ulcer or GI bleeding, talk with your pebbles doctor before using these medicines.] (Aspirin should never be used in anyone under 18 years of age who is ill with a fever. It may cause severe liver damage.) Adults: You may use acetaminophen (Tylenol) or ibuprofen (Motrin, Advil) to control pain or fever, unless another medicine was prescribed. [NOTE: If you have chronic liver or kidney disease or ever hada stomach ulcer or GI bleeding, talk with your doctor before using these medicines.] Throat lozenges or sprays (Chloraseptic and others) will reduce pain. Gargling with warm salt water will also reduce throat pain. Dissolve 1/2 teaspoon of salt in 1 glass of warm water. This is especially useful just before meals. Follow Up with your doctor or as directed by our staff if you are not improving over the next week. Get Prompt Medical Attention if any of the following occur: ?? Fever over 100.5?F (38.0?C) oral, or over 101.5?F (38.6?C) rectal for more than threedays ?? New or worsening ear pain, sinus pain or headache ?? Painful lumps in the back of your neck ?? Unable to swallow liquids or open your mouth wide due to throat pain ?? Trouble breathing or noisy breathing ?? Muffled voice ?? New rash ?? [id number] Lennie Swain, [address] [place] [address], [place] [address]. All rights reserved. This information is not [...] if you dont have one. Go to [email or web address] and click on Create Your Account. Then, follow the directions to complete the online form. Youll be asked for your [facility] number which you can find at the top of this document. ED Tests and Procedures: Order Status Strep A Screen Rapid Completed Rapid Strep Confirmation Ordered Discharge Prescriptions & Home Medications: Medication/Strength Dose Route Frequency Indications/Special Instructions/Comments/Notes [id number] topical (Lidoderm 5% topical film) 1 patch(es) Topical once a day Apply to intact skin and remove patch after a maximum of 12 hr of application within a 24 hr period Misc Prescription (School excuse) See Instructions Please excuse from school from ___03/06/2015 to 03/08/2015 due to illness ketorolac (Toradol 10 mg oral tablet) 10 mg Oral four times a day Take with food. acetaminophen-codeine (Tylenol with Codeine #3 oral tablet) 1 to 2 tablets Oral every 4 hours as needed for Pain No more than 4,000mg acetaminophen/24hrs magnesium citrate (Citrate of Magnesia 1.745 g/30 mL oral liquid) 8.725 gm Oral once polyethylene glycol 3350 with electrolytes (GoLYTELY oral [...] ride home with a responsible green party. CEDRIC Ward KRISTINA LYNN , or responsible green [...] with a responsible green party. I, SILVIA STEELE , or responsible green party have received this information and my questions have been answered. I have discussed any challenges I see with this plan with the nurse or physician. Patient Signature or Responsible Green Party/Relationship Date Time Provider Signature Date Time This document has images extracted. Please consider using [employer] for all your patient education needs. Source: [facility] evOLEDCHART Document Id: [id number] ER MARKER Jonas El, REmekaN. - 04/02/2015 10:42 PM CST ED Depart Summary [facility] Emergency Department / Urgent Care Clinical Discharge Summary PERSON INFORMATION Name SILVIA STEELE Age 29 Years 1985 12:00 AM Sex Female Language Angolan PCP SOFIE VÁZQUEZ MD Marital Status Single Visit Id Visit Reason Throat pain - Adult; BODY ACHES, SORE THROAT, Specialty Enc Type Emergency Med Service Emergency Medicine Referred by Track Group [facility] ED/UC Discharge 04/02/2015 10:35 PM Tracking Id [id number] Checkout 04/02/2015 10:35 PM Checkin 04/02/2015 9:46 PM Acuity 4 -Less Urgent Dispo Type * Discharged to Home or Self Care Arrival 04/02/2015 9:46 PM Reg Status Complete LOS 000 00:49 Address: [address] [place] [address] Comment: PROVIDER INFORMATION Provider Role Provider Contact Time JONAS EL ED Nurse 04/02/15 21:55 TYSON JOEL MD ED Provider 04/02/15 21:56 DIAGNOSIS Pharyngitis (Ph) Acute Comment: PATIENT EDUCATION INFORMATION Instructions: PHARYNGITIS, Viral Follow up: With: Address: When: Return to Emergency Department Within As Needed With: Address: When: SOFIE VÁZQUEZ [address] [place] [phone] Business (1) Within As Needed Source: [employer] Document Id: [id number] ER MARKER documented in this encounter ED Notes Jonas El R.N. - 04/02/2015 10:35 PM CST ED Disposition Summary ED Disposition Summary Entered On: 04/02/2015 22:42 VENEER MARKER Performed On: 04/02/2015 22:35 VENEER MARKER by JONAS EL ED Disposition Summary Accompanied By : Alone Mode of Discharge : Ambulatory Transportation : Private vehicle Printed Discharge Instructions Given to Patient : Yes Patient Status at Discharge from ED : Improved JONAS EL - 04/02/2015 22:38 VENEER MARKER Source: [employer] Document Id: [id number] VENEER MARKER!7 ER MARKER Jonas El R.N. - 04/02/2015 10:35 PM CST ED Pain Assessment ED Pain Assessment Entered On: 04/02/2015 22:42 VENEER MARKER Performed On: 04/02/2015 22:35 VENEER MARKER by JONAS EL Pain Assessment Pain Symptoms : Yes JONAS EL - 04/02/2015 22:42 VENEER MARKER Pain Scale Pain Scale Verbal 0-10 : Open JONAS EL - 04/02/2015 22:42 VENEER MARKER Pain Pain Assessment Grid Pain 1 Location : Throat Intensity : 3 Acceptable Intensity : 3 JONAS EL - 04/02/2015 22:42 VENEER MARKER Source: [facility] POWERCHART Document Id: [id number] VENEER MARKER!11 ER MARKER Tyson Joel M.D. - 04/02/2015 10:26 PM CST Throat pain - Adult Patient: SILVIA STEELE Age: 29 years Sex: Female : 1985 Author: TYSON JOEL MD Attachments: None Associated Diagnosis: Pharyngitis (Ph) Acute Basic Information Additional information: Chief Complaint from Nursing Triage Note : Chief Complaint Description 04/02/2015 22:00 VENEER MARKER Chief Complaint Description Pt presents with sore throat for 3 days. Difficultyswallowing. Body aches but no fever. Last urination 1.5 hours ago. Cap refill less than 3. . History of Present Illness The patient presents with sore throat. The onset was 1 days ago. The course/duration of symptoms is constant. Location: Bilateral throat. The character of symptoms is pain. The degree at present is moderate. The exacerbating factor is swallowing. The relieving factor is none. Risk factors consist of none. Prior episodes: occasional. Therapy today: none. Associated symptoms: none. Additional history: none. 29 yo F presents with a sore throat and body aches. Sx started last night. Also some cough. No SOB or rhinorrhea.. Review of Systems Constitutional symptoms: Fever and chills. Skin symptoms: Negative except as documented in HPI. Eye symptoms: Negative except as documented in HPI. ENMT symptoms: Sore throat and nasal congestion. Respiratory symptoms: Cough. Cardiovascular symptoms: Negative except as documented in HPI. Gastrointestinal symptoms: Negative except as documented in HPI. Genitourinary symptoms: Negative except as documented in HPI. Musculoskeletal symptoms: Negative except as documented in HPI. Neurologic symptoms: Negative except as documented in HPI. Health Status Allergies: Allergic Reactions (All) NKA. Past Medical/ Family/ Social History Medical history: No active or resolved past medical history items have been selected or recorded.. Surgical history: Other Manually Assisted Delivery (73.59) in the [...] PowerChart. Cytopathology, slides, cervical or vaginal (the [place] System); manual screening under physician supervision.. (43804) in the week of 03/10/2004 at 18 Years. Comments: 04/18/2010 21:45 - CARMEN MORALES Hx: [id number] - LAB-CYTOPATH, SM,D/V,TDS<3SM TECH 03/21/2013 17:41 - Contributor source changed to PowerChart.. Family history: No family history items have been selected or recorded.. Physical Examination Vital Signs: Vital Signs 04/02/2015 22:00 VENEER MARKER Temperature Core 37.2 DegC Peripheral Pulse Rate 93 /min Respiratory Rate 18 /min SpO2 97 % Systolic Blood Pressure 128 mmHg Diastolic Blood Pressure 83 mmHg Mean Arterial Pressure 98 mmHg . General: Alert and no acute distress. Skin: Warm, dry and pink. Head: Normocephalic. Neck: Trachea midline. Eye: Pupils are equal, round and reactive to light and extraocular movements are intact. Ears, nose, mouth and throat: Tonsillar erythema without exudate and mild swelling. Anterior lymphadenopathy.. Respiratory: Lungs are clear to auscultation. Cardiovascular: Normal peripheral perfusion. Chest wall: No tenderness. Gastrointestinal: Soft. Genitourinary: No tenderness. Neurological: Alert and oriented to person, place, time, and situation and No focal neurological deficit observed. Medical Decision Making Differential Diagnosis:Viral pharyngitis, streptococcal pharyngitis. Notes:29 yo F presents with acute pharyngitis. NSAIDs and steroids. No antibiotics due to a negativestrep test.. Impression and Plan Diagnosis Pharyngitis (Ph) Acute (Discharge, Emergency medicine, Medical) Plan Disposition: Discharged: to home. Patient was given the following educational materials: PHARYNGITIS, Viral. Follow up with: SOFIE VÁZQUEZ Within As Needed; Return to Emergency Department Within As Needed. Orders: Launch Orders Patient Care: Discharge ED Patient (Order Processing): 04/02/2015 22:32 VENEER MARKER, Once. Electronically Signed By: TYSON JOEL MD On: 04/02/2015 10:33 PM [facility] Document Id: [id number]} ER MARKER Jonas El, R.N. - 04/02/2015 10:00 PM CST ED Primary Assessment Document Has Been Updated ED Primary Assessment Entered On: 04/02/2015 22:03 VENEER MARKER Performed On: 04/02/2015 22:00 VENEER MARKER by JONAS EL Reason For Visit (As Of: 04/02/2015 22:03:43 VENEER MARKER) Problems(Active) No Chronic Problems (Cerner :NKP ) Name of Problem: No Chronic Problems ; Recorder: NATY XIE MD; Confirmation: Confirmed ; Classification: Medical ; Code: NKP ; Last Updated: 05/15/2013 16:30 VENEER MARKER; Life Cycle Date: 05/15/2013 ; Life Cycle Status: Active ; Vocabulary: Cerner Diagnoses(Active) Throat pain - Adult Date: 04/02/2015 ; Diagnosis Type: Reason For Visit ; Confirmation: Complaint of; Clinical Dx: Throat pain - Adult ; Classification: Medical ; Clinical Service: Emergency medicine ; Code: PNED ; Probability: 0 ; Diagnosis Code: [id number] Triage Chief Complaint Description : Pt presents with sore throat for 3 days. Difficulty swallowing. Body aches but no fever. Last urination 1.5 hours ago. Cap refill less than 3. Information Given By : Patient Accompanied By : Alone Mode of Arrival ED : Private vehicle Track : Medical Languages : Angolan Patient Informed of Triage Location : Emergency department Vital Signs Assessed : Yes GCS Assessed : Yes Treatments Prior to Arrival : None Are you ? : No Is Patient Female and 13-50 no hysterectomy : Yes Status : Patient denies CRISTINA 04/02/2015 22:00 VENEER MARKER Vital Signs Temperature Core : 37.2 DegC(Converted to: 99.0 DegF) Peripheral Pulse Rate : 93 /min Respiratory Rate : 18 /min Systolic Blood Pressure : 128 mmHg Diastolic Blood Pressure : 83 mmHg NIBP Mean : 98 mmHg SpO2 : 97 % Oxygen Therapy : Room air CRISTINA 04/02/2015 22:00 VENEER MARKER [place] Coma Eye Opening Response Blanco : Spontaneously Best Verbal Response [place] : Oriented Best Motor Response [place] : Obeys simple commands Blanco Coma Score : 15 CRISTINA 04/02/2015 22:00 VENEER MARKER Pain Assessment Pain Symptoms : Yes CRISTINA 04/02/2015 22:00 VENEER MARKER Pain Scale Pain Scale Verbal 0-10 : Open CRISTINA 04/02/2015 22:00 VENEER MARKER Pain Pain Assessment Grid Pain 1 Location : Throat Intensity : 4 Acceptable Intensity : 4 CRISTINA04/02/2015 22:00 VENEER MARKER Comfort Measures Comfort Measures Grid Relaxation : Yes Rest : Yes CRISTINA 04/02/2015 22:00 VENEER MARKER Comfort Measures Response : Comfort level increased CRISTINA 04/02/2015 22:00 VENEER MARKER DENNY DENNY Level 1 : No DENNY Level 2 : No DENNY Level 3 : One CRISTINA 04/02/2015 22:00 VENEER MARKER DCP GENERIC CODE Tracking Acuity : 4 -Less Urgent Tracking Group : [facility] ED/UC CRISTINA04/02/2015 22:00 VENEER MARKER Allergy (As Of: 04/02/2015 22:03:43 VENEER MARKER) Allergies (Active) NKA Estimated Onset Date: Unspecified ; Created By: KATIE BRUNNER MD; Reaction Status: Active ; Category: Drug ; Substance: NKA ; Type: Allergy ; Updated By: KATIE BRUNNER MD; Reviewed Date: 04/02/2015 22:02 VENEER MARKER Respiratory Airway : Patent Respirations : Unlabored Respiratory Pattern : Regular Oxygen Therapy : Room air Respiratory Detailed Assessment : Yes RENETTA ELY 04/02/2015 22:00 VENEER MARKER Resp Detailed Respiratory Patient Stated Symptoms : None Distress : None Cough : None RENETTA EL04/02/2015 22:00 VENEER MARKER Breath Sounds Assessment Grid BRIGIDO : Clear RUL : Clear RML : Clear LLL : Clear RLL : Clear CRISTINA JONAS - 04/02/2015 22:00 VENEER MARKER Cardiovascular Heart Rhythm : Regular Skin Color : Normal for ethnicity Skin Description : Dry Skin Temperature : Warm JONAS EL 04/02/2015 22:00 VENEER MARKER Neurological Last Well Time Known : Not applicable Level of Consciousness : Alert Orientation : Oriented x 3 Characteristics of Speech : Clear JONAS EL 04/02/2015 22:00 VENEER MARKER ED Psychosocial Affect/Behavior : Calm Domestic Abuse Concerns : None Behavioral Health Screen/Safety Assmt : No CRISTINA JONAS 04/02/2015 22:00 VENEER MARKER Gastrointestinal Nutrition ED : Adequate GI Detailed Assessment : Yes CRISTINA JONAS 04/02/2015 22:00 VENEER MARKER GI Detailed GI Patient Stated Symptoms : Loss of appetite CRISTINA JONAS - 04/02/2015 22:00 VENEER MARKER /OB Assessment Patient Stated Symptoms : None RENETTA ELY 04/02/2015 22:00 VENEER MARKER Musculoskeletal Fall Prevention Education Provided : ANTONIO CRISTINA JONAS - 04/02/2015 22:00 VENEER MARKER EENT Mouth and Throat Symptoms : Other: Throat pain CRISTINARENETTA04/02/2015 22:00 VENEER MARKER Social Habits Exposure to Tobacco Smoke : Patient smokes, Other: occ alcohol Smoking Status : Current every day smoker Tobacco 2A : Yes Tobacco Use/Currently Using : Yes Tobacco Use/Last 30 Days : Yes Tobacco Use/Last 12 months : Yes Type : Cigarettes: Less than 20 per day Tobacco Use/Advised to Quit : Yes JONAS EL 04/02/2015 22:00 VENEER MARKER Source: [facility] POWERCHART Document Id: [id number] VENEER MARKER!101 ER MARKER documented in this encounter Miscellaneous Notes Miscellaneous - Jonas El R.N. - 04/02/2015 10:35 PM CST Valuables/Belongings Valuables/Belongings Entered On: 04/02/2015 22:42 VENEER MARKER Performed On: 04/02/2015 22:35 VENEER MARKER by JONAS EL Valuables/Belongings Valuables/Belongings Grid Valuables with Patient Clothes, Patient Valuables : Pants, Shirt, Shoes, Undergarments JONAS EL - 04/02/2015 22:42 VENEER MARKER Room Orientation/Facility Policy Reviewed : Yes Home Medication Disposition : None brought in with patient JONAS EL - 04/02/2015 22:42 VENEER MARKER Source: [employer] Document Id: [id number] VENEER MARKER!7 ER MARKER Miscellaneous - Conversion, Historical Provider Ser - 04/02/2015 10:35 PM VENEER MARKER Coding Summary-Paper Based CODING DATE: 04/10/2015 FINAL [facility] STATUS: * Discharged to Home or Self Care PAYOR: Medicaid ADMIT DX: J02.9 Acute pharyngitis, unspecified REASON FOR VISIT DX: J02.9 Acute pharyngitis, unspecified FINAL DX: PRINCIPAL: J02.9 Acute pharyngitis, unspecified SECONDARY: F17.210 Nicotine dependence, cigarettes, uncomplicated PROCEDURES DOCTOR NAME DATE NOTE: The code number assigned matches the documented diagnosis and / or procedure in the patient's chart. However, the narrative phrase printed from the coding software may appear abbreviated, or result in slightly different terminology. Coded By: KATYA MAGANA Date Saved: 04/10/2015 09:29 am Source: [employer] Document Id: [id number] documented in this encounter Plan of Treatment Not on filedocumented as of this encounter Procedures Procedure Name Priority Date/Time Associated Diagnosis Comme nts RAPID STREP A Routine 04/02/2015 10:05 PM Results for this SCREEN VENEER MARKER procedure are i n the results section. RAPID STREP A Routine 04/02/2015 10:05 PM Results for this SCREEN VENEER MARKER procedure are i n the results section. documented in this encounter Results Rapid Strep A Screen (04/02/2015 10:05 PM VENEER MARKER) [facility] Method Time Signature HXRapid Strep POWERCHART Confirmation HXPre Negative for POWERCHART Group A Strep by culture. HXFinal Negative for POWERCHART Group A Strep by culture. Specimen Anatomical Collection Method Collection Time Receive d Time (Source) Location / / Volume Laterality Throat 04/02/2015 10:05 04/02/2015 PM VENEER MARKER 10:05 PM VENEER MARKER Tyson Joel M.D. LAB MICROBIOLOGY - GENERAL [place] Performing Organization Address City/[facility] [[email or web address]] Code Phon e Number POWERCHART Rapid Strep A Screen (04/02/2015 10:05 PM VENEER MARKER) [facility] [employer] Method Time Signature HXStrep A POWERCHART Screen Rapid HXFinal Negative for POWERCHART Strep Group A by rapid screen. HXFinal Culture POWERCHART confirmation to follow. Specimen (Source) Anatomical Collection Method Collection Time Re ceived Time Location / / Volume Laterality Throat 04/02/2015 10:05 PM VENEER MARKER Tyson Joel M.D. LAB MICROBIOLOGY - GENERAL [place] Performing Organization Address City/State/ZIP Code Phon e Number POWERCHART documented in this encounter Visit Diagnoses Not on filedocumented in this encounter
--- OUTSIDE RECORDS SUMMARY | 2022-02-03 23:57 | XMS_ITS | Encounter Summary ---
:1985 Author Organization [facility] Address [address] [place] [id number] Care Team Providers Name Role Phone Unavailable Primary Care Provider Unavailable Encounter Details Date Type Department Care Team Description 07/15/2015 Hospital Encounter HX [facility] Sally Azar M.D. Social History Tobacco Use Types Packs/Day Years Used Date Smoking Tobacco: Never Assessed Sex Assigned at Date Recorded Not on file documented as of this encounter Last Filed Vital Signs Vital Sign Reading Time Taken Comments Blood Pressure 140/78 07/15/2015 6:04 AM CDT Pulse 76 07/15/2015 6:04 AM CDT Temperature - - Respiratory Rate 17 07/15/2015 6:04 AM CDT Oxygen Saturation - - Inhaled Oxygen Concentration - - Weight - - Height - - Body Mass Index - - documented in this encounter Discharge Summaries Kylee Woodard RJonathan. - 07/15/2015 6:59 AM CD[place] [address] Name: SILVIA MAY Date of : 1985 12:00 AM Visit Date: 07/15/2015 4:53 AM [facility] Number: [id number] Address: [address] [place] [address] Primary Care Provider: SOFIE VÁZQUEZ MD IMPORTANT: [facility] in [place] would like to thank you for allowing us to assist youwith your healthcare needs. The following includes patient education materials and information regarding your injury/illness. Diagnosis: Pain Chest (CP) NOS Follow-Up Instructions: With: Address: When: Follow Up with Primary Care Within 2 - 4 days With: Address: When: Follow Up with Primary Care Within As Needed With: Address: When: SOFIE VÁZQUEZ [address] [place] [phone] [facility] (1) Within As Needed Your Upcoming Appointments: Date Time Location Provider No Appointments found Patient Education Materials: Chest Pain, Uncertain Cause Chest pain can happen for a number of reasons. Sometimes the cause can not be determined. If your condition does not seem serious, and your pain does not appear to be coming from your heart, your doctor may recommend watching it closely. Sometimes the signs of a serious problem t amado more time to appear. Therefore, watch for the warning signs listed below. Home care After your visit, follow these recommendations: ?? Rest today and avoid strenuous activity. ?? Take any prescribed medicine as directed. Follow-up care Follow up with your doctor or this facility as instructed or if you do not start to feel better within 24 hours. Call 911 Get immediate medical attention if any of the following occur: ?? A change in the type of pain: if it feels different, becomes more severe, lasts longer, or beginsto spread into your shoulder, arm, neck, jaw or back ?? Shortness of breath or increased pain with breathing ?? Weakness, dizziness, or fainting ?? Rapid heart beat Get prompt medical attention Call your doctor right away if any of the following occur: ?? Cough with dark colored sputum (phlegm) or blood ?? Fever of 100.4?F (38?C) or higher, or as directed by your health care provider ?? Swelling, pain or redness in one leg ?? [id number] [place] [address]. All rights reserved. This information is not [...] if you dont have one. Go to [email or web address] and click on Create Your Account. Then, follow the directions to complete the online form. Youll be asked for your [facility] number which you can find at the top of this document. ED Tests and Procedures: Order Status XR Chest 2 Views Ordered EKG-Lab Completed Follow Up with Primary Care Completed Discharge Prescriptions & Home Medications: Medication/Strength [...] two times a day for 10 Days *lidocaine topical (Lidoderm 5% topical film) 1 patch(es) Topical once a day Apply to intact skin and remove patch after a maximum of 12 hr of application within a 24 hr period *polyethylene glycol 3350 with electrolytes (GoLYTELY oral [...] ride home with a responsible alliance party. CEDRIC Ward KRISTINA LYNN , or responsible alliance [...] ride home with a responsible alliance party. CEDRIC Ward KRISTINA LYNN , or responsible alliance party have received this information and my questions have been answered. I have discussed any challenges I see with this plan with the nurse or physician. Patient Signature or Responsible Constitution Party/Relationship Date Time Provider Signature Date Time This document has images extracted. Please consider using Expert TA for all your patient education needs. Source: [facility] POWERCHART Document Id: [id number] Kylee Woodard RJonathan. - 07/15/2015 6:59 AM CDT ED Depart Summary [facility] Emergency Department / Urgent Care Clinical Discharge Summary PERSON INFORMATION Name SILVIA MAY Age 30 Years 1985 12:00 AM Sex Female Language Honduran PCP SOFIE VÁZQUEZ MD Marital Status Single N [id number] Visit Id Visit Reason Chest pain; CHEST DISCOMFORT Specialty Enc Type Emergency Med Service Emergency Medicine Referred by Track Group [facility] ED/UC Discharge 07/15/2015 6:59 AM Tracking Id [id number] Checkout 07/15/2015 6:59 AM Checkin 07/15/2015 4:53 AM Acuity 4 -Less Urgent Dispo Type * Discharged to Home or Self Care Arrival 07/15/2015 4:53 AM Reg Status Complete LOS 000 02:06 Address: [address] [place] [id number] Comment: PROVIDER INFORMATION Provider Role Provider Contact Time SALLY LEONARDO MD ED Provider 07/15/15 05:45 KYLEE WOODARD PERFORMANCE MANAGER Nurse 07/15/15 06:02 DIAGNOSIS Pain Chest (CP) NOS Comment: PATIENT EDUCATION INFORMATION Instructions: CHEST PAIN, Uncertain Cause Follow up: With: Address: When: Follow Up with Primary Care Within 2 - 4 days With: Address: When: Follow Up with Primary Care Within As Needed With: Address: When: SOFIE VÁZQUEZ [address] [place] [phone] Business (1) Within As Needed Source: [facility] Document Id: [id number] documented in this encounter ED Notes Kylee Woodard R.N. - 07/15/2015 6:58 AM CDT ED Disposition Summary ED Disposition Summary Entered On: 07/15/2015 6:58 CDT Performed On: 07/15/2015 6:58 CDT by KYLEE WOODARD RN ED Disposition Summary Printed Discharge Instructions Given to Patient : Yes Patient Status at Discharge from ED : Improved KYLEE WOODARD RN - 07/15/2015 6:58 CDT Source: [facility] Document Id: [id number] CDT!4 Kylee Woodard R.N. - 07/15/2015 6:58 AM CDT ED Pain Assessment ED Pain Assessment Entered On: 07/15/2015 6:58 CDT Performed On: 07/15/2015 6:58 CDT by KYLEE WOODARD RN Pain Assessment Pain Symptoms : Yes Pain Medication Requested : No KYLEE WOODARD RN - 07/15/2015 6:58 CDT Pain Scale Pain Scale Verbal 0-10 : Open KYLEE WOODARD RN - 07/15/2015 6:58 CDT Pain Pain Assessment Grid Pain 1 Location : Chest Intensity : 4 KYLEE WOODARD RN - 07/15/2015 6:58 CDT Source: [facility] Document Id: [id number] CDT!11 Kylee Woodard R.N. - 07/15/2015 6:41 AM CDT ED Nurse Reassess ED Nurse Reassess Entered On: 07/15/2015 6:44 CDT Performed On: 07/15/2015 6:41 CDT by KYLEE WOODARD RN Pain Assessment Pain Symptoms : Yes Pain Medication Requested : No KYLEE WOODARD RN - 07/15/2015 6:41 CDT Resp Reassess Respiratory Note : pt denies worsening of symptoms. Awaiting MD for dc instructions. KYLEE WOODARD RN - 07/15/2015 6:41 CDT Source: [facility] Document Id: [id number] CDT!6 Sally Leonardo M.D. - 07/15/2015 6:06 AM CDT Chest Pain *ED Patient: SILVIA MAY Age: 30 years Sex: Female : 1985 Author: SALLY LEONARDO MD Attachments: None Basic Information Additional information: Chief Complaint from Nursing Triage Note : Chief Complaint Description 07/15/2015 5:01 CDT Chief Complaint Description pt presents with chest tightness since 0330 . History of Present Illness Ms. May is a 30 year old female with no cardiac history and recently treated strep pharyngitis presents with symptoms of non exertional chest tightness since 3:30 AM. She states that she was watching [employer] on TV and noted some chest tightness. She denies any fever or cough or shortness of breath. She notes that she has been compliant with treatments for her streptococcal infection and notes that she did take a steroid recently for her symptoms with improvement. She denies any chest trauma. She states that otherwise she has been feeling well on full review of systems. She denies any calf pain, denies any unilateral peripheral edema, denies any recent immobilization, is not any oral contraceptives, no recent surgical procedures, and has no history of DVT or PE. Review of Systems Constitutional symptoms: No fever or no chills. Skin symptoms: Negative except as documented in HPI. Eye symptoms: Negative except as documented in HPI. ENMT symptoms: Sore throat. Respiratory symptoms: No cough. Cardiovascular symptoms: Chest pain and tightness, but no palpitations, no syncope or no diaphoresis. Gastrointestinal symptoms: Negative except as documented in HPI. Additional review of systems information: All other systems reviewed and otherwise negative. Health Status Allergies: Allergic Reactions (Selected) NKA. Past Medical/ Family/ Social History Medical history: No active or resolved past medical history items have been selected or recorded.. Physical Examination Vital Signs: Vital Signs 07/15/2015 6:04 CDT Temperature Core 37.3 DegC Peripheral Pulse Rate 76 /min Respiratory Rate 17 /min SpO2 96 % Systolic Blood Pressure 140 mmHg Diastolic Blood Pressure 78 mmHg BP Location Right upper 07/15/2015 5:08 CDT Temperature Core 37.3 DegC Peripheral Pulse Rate 76 /min Respiratory Rate 17 /min SpO2 96 % Systolic Blood Pressure 140 mmHg Diastolic Blood Pressure 78 mmHg BP Location Right upper . General: Alert and no acute distress. Skin: Warm, dry, pink and intact. Head: Normocephalic and atraumatic. Eye: Pupils are equal, round and reactive to light and extraocular movements are intact. Ears, nose, mouth and throat: Oral mucosa moist. Cardiovascular: Regular rate and rhythm, No murmur, Normal peripheral perfusion and No edema. Respiratory: Lungs are clear to auscultation, respirations are non-labored and breath sounds are equal. Neurological: Alert and oriented to person, place, time, and situation and No focal neurological deficit observed. Psychiatric: Cooperative. Medical Decision Making Differential Diagnosis:Angina, anxiety, pulmonary embolism, atypical chest pain, costochondritis, chest wall pain. Radiology results:IMPRESSION: No change since 09/06/2013. No focal infiltrate or consolidation. No pleural effusion or pneumothorax. Heart size and pulmonary vascularity within normal limits. Abdominal surgical clips. . Impression and Plan Ms. May is a 30 year old female without any cardiac history or history of PE or DVT who presents tot ED today with chest pain that is in the anterior chest that started at 3:30 AM today. The patient denies any shortness of breath along with her symptoms. She denies any fever or cough. She recentlywas treated for strep pharyngitis and notes that this has been improving. She has no risk factors for ACS, her history is very atypical for any anginal pain/ACS presentation and I obtained an ECG which reveals a normal sinus rhythm without any evidence of ischemia so while in the differential I do not suspect this as a cause. She is PERC negative and I have a very very low pretest probability for PE as the underlying cause for her symptoms so there is <2 % chance of a PE. I have also obtained a CXR to evaluate for any evidence of pneumonia or pneumothorax and this was negative. I discharged the patient with return precautions and follow up instructions. Patient verbalized understanding and agreement to the plan as outlined above. Electronically Signed By: SALLY LEONARDO MD On: 07/15/2015 10:44 PM Modified by and Electronically Signed by: SALLY LEONARDO MD On: 07/15/2015 10:44 PM Source: [facility] POWERCHART Document Id: [id number]} Kylee Woodard, R.N. 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; Life Cycle Date: 05/15/2013 ; Life Cycle Status: Active ; Vocabulary: Cerner Diagnoses(Active) Chest pain Date: 07/15/2015 ; Diagnosis Type: Reason For Visit ; Confirmation: Complaint of ; Clinical Dx: Chest pain ; Classification: Medical ; Clinical Service: Emergency medicine ; Code: PNED ; Probability: 0 ; Diagnosis Code: [id number] Triage Chief Complaint Description : pt presents with chest tightness since 329 Information Given By : Patient Present in Room During Exam/Procedure : Alone Mode of Arrival ED : Private vehicle Track : Medical Languages : Honduran Treatments Prior to Arrival : None Are you ? : No Is Patient Female and 13-50 no hysterectomy : Yes Status : Patient denies ANTWAN WOODARDSylvia Hickey RN - 07/15/2015 5:13 CDT Pain Assessment Pain Symptoms : Yes YAMILETANTWANSylvia Hickey RN - 07/15/2015 5:13 CDT Pain Scale Pain Scale Verbal 0-10 : Open YAMILETKYLEE Ruperto RN - 07/15/2015 5:13 CDT Pain Pain Assessment Grid Pain 1 Location : Chest Intensity : 5 SERGEI WOODARDISTSylvia Hickey RN - 07/15/2015 5:13 CDT DENNY DCP GENERIC CODE Tracking Acuity : 4 -Less Urgent Tracking Group : [facility] ED/UC ANTWAN WOODARDSylvia Hickey RN - 07/15/2015 5:13 CDT Respiratory Airway : Patent Respirations : Unlabored Respiratory Pattern : Regular Oxygen Therapy : Room air Respiratory Detailed Assessment : Yes YAMILET KYLEE Hickey RN - 07/15/2015 5:13 CDT Resp Detailed Respiratory Note : pt presents with hx of being on tx for strep throat with abx and oxycodone. States 0330 began feeling like her chest was caving in Denies pain but states tightness when she tries to breath in. No resp difficulty noted. Pt states she needs a work (Comment: release because she had to leave work. [KYLEE WOODARD RN - 07/15/2015 5:13 CDT] ) KYLEE WOODARD RN - 07/15/2015 5:13 CDT Cardiovascular Heart Rhythm : Regular Skin Color : Normal for ethnicity Skin Description : Dry Skin Temperature : Warm YAMILETANTWANSylvia Hickey RN - 07/15/2015 5:13 CDT Neurological Last Well Time Known : Not applicable Level of Consciousness : Alert Orientation : Oriented x 3 Characteristics of Speech : Appropriate for age Neuro Patient Stated Symptoms : None SERGEI WOODARDISTSylvia Hickey RN - 07/15/2015 5:13 CDT ED Psychosocial Affect/Behavior : Calm, Cooperative Domestic Abuse Concerns : None Behavioral Health Screen/Safety Assmt : No KYLEE WOODARD RN - 07/15/2015 5:13 CDT Gastrointestinal Nutrition ED : Adequate KYLEE WOODARD RN - 07/15/2015 5:13 CDT Musculoskeletal Fall Prevention Education Provided : Yes KYLEE WOODARD RN - 07/15/2015 5:13 CDT Social Habits Exposure to Tobacco Smoke : Patient smokes, Other: occ alcohol Smoking Status : Current every day smoker Tobacco 2A : Yes Tobacco Use/Currently Using : No Tobacco Use/Last 30 Days : No Tobacco Use/Last 12 months : No KYLEE WOODARD RN - 07/15/2015 5:13 CDT Alcohol Use Grid Alcohol Use : Yes Frequency : Occasionally KYLEE WOODARD RN - 07/15/2015 5:13 CDT Source: [facility] Document Id: [id number]!63 documented in this encounter Miscellaneous Notes Telephone Encounter - Sivan Allred R.N. - 07/15/2015 12:34 PM CDT Follow Up with Primary Care Entered by SIVAN ALLRED RN on July 15, 2015 12:34:19 CDT Pt has an appt for 3-15 with PCP Follow Up Request: Follow Up with Primary Care Date Requested: July 15, 2015 06:41:28 CDT Ed Location: [facility] ED ED Attending: SALLY LEONARDO MD Order placed from order screen by provider Order Provider: --- Follow Up Time Frame: --- Reason for Request: --- Special Instructions: --- Consulting Physician: --- Consulting Department: --- Rule placed order based on provider documentaton Note: Order created from documentation in the Follow Up section Documented by: SALLY LEONARDO MD Follow Up Within: As Needed Follow Up On: -- Follow Up Address: -- Follow Up Comments: -- Source: [facility] Document Id: [id number] Electronically signed by James, [facility] Client Development Consultant [id number] at 09/26/2016 5:04 PM CDT Miscellaneous - Conversion, Historical Provider Ser - 07/15/2015 6:59 AM CDT Coding Summary-Paper Based CODING DATE: 07/30/2015 FINAL [facility] STATUS: * Discharged to Home or Self Care PAYOR: Medicaid ADMIT DX: R07.89 Other chest pain REASON FOR VISIT DX: R07.89 Other chest pain FINAL DX: PRINCIPAL: R07.89 Other chest pain SECONDARY: J02.9 Acute pharyngitis, unspecified F17.200 Nicotine dependence, unspecified, uncomplicated PROCEDURES DOCTOR NAME DATE NOTE: The code number assigned matches the documented diagnosis and / or procedure in the patient's chart. However, the narrative phrase printed from the coding software may appear abbreviated, or result in slightly different terminology. Coded By: KATYA MAGANA Date Saved: 07/30/2015 08:43 am [facility] Document Id: [id number] Olga - Kylee Woodard R.N. - 07/15/2015 6:58 AM CDT Valuables/Belongings Valuables/Belongings Entered On: 07/15/2015 6:58 CDT Performed On: 07/15/2015 6:58 CDT by KYLEE WOODARD RN Valuables/Belongings Home Medication Disposition : None brought in with patient KYLEE WOODARD RN - 07/15/2015 6:58 CDT Source: [facility] Document Id: [id number] CDT!3 Olga - Sally Leonardo M.D. - 07/15/2015 6:46 AM CDT Work Excuse July 15, 2015 SILVIA MAY [address] [place] [id number] Dear SILVIA MAY, You were examined in my office on: 07/15/2015 Reason for work excuse: Medical Illness (x ) Yes ( _ ) No Injury ( _ ) Yes ( x) No Is excused from all work: ( x) Yes ( _ ) No Has work limitations: ( _ ) Yes ( x ) No As follows: _ Limitations apply until: _ Follow-Up Appointment : ( _ ) Return to Work date: 07/16/2015 Notes: _ Sincerely, SALLY LEONARDO [address] [place] [address] Electronic Signature Electronically Signed By: SALLY LEONARDO MD On: July 15, 2015 This document has images extracted. Source: [facility] POWERCHART Document Id: [id number] Electronically signed by Conversion, [facility] Client Development Consultant [id number] at 09/26/2016 5:04 PM CDT documented in this encounter Plan of Treatment Not on filedocumented as of this encounter Procedures Procedure Name Priority Date/Time Associated Diagnosis Comme nts ECG Routine 07/15/2015 5:34 AM Results f or this CDT procedure are i n the results section. DX CHEST AP OR PA Routine 07/15/2015 4:44 AM Resu lts for this AND LATERAL 2 VIEWS CDT procedur e are in the results section. documented in this encounter Results ECG 12 Lead (07/15/2015 5:34 AM CDT) Specimen (Source) Anatomical Collection Method Collection Time Re ceived Time Location / / Volume Laterality 07/15/2015 5:34 AM CDT Narrative [facility] - 07/15/2015 5:34 AM CDT Test Reason : CHEST PAIN Blood Pressure : / mmHG Vent. Rate : 084 BPM ? Atrial Rate : 084 BPM ?? P-R Int : 172 ms ?QRS D ur : 078 ms ?QT Int : 390 ms ? P-R-T Axe s : 006 053 026 degrees ?? QTc Int : 460 ms Normal sinus rhythm Normal ECG No previous ECGs available Referred By: SALLY LEONARDO ? Confirmed By:DEL SHELDON MD Procedure Note Provider, Lupe Villanueva - 09/17/2016F ormatting of this note might be different from the original. Test Reason : CHEST PAIN Blood Pressure : / mmHG Vent. Rate : 084 BPM Atrial Rate : 084 B PM P-R Int : 172 ms QRS Dur : 078 ms QT Int : 390 ms P-R-T Axes : 006 053 02 6 degrees QTc Int : 460 ms Normal sinus rhythm Normal ECG No previous ECGs available Referred By: SALLY LEONARDO Confirmed B y:DEL SHELDON MD Del Sheldon M.D., M.B. ECG ORDERABLES Performing Organization Address City/State/ZIP Code Phon e Number [facility] [address] [place] [address] DX Chest Anterior Posterior or Posterior Anterior and Lateral 2 Views (07/15/2015 4:44 AM CDT) Anatomical Region Laterality Modality Chest N/A Radiographic Imaging Specimen (Source) Anatomical Collection Method Collection Time Re ceived Time Location / / Volume Laterality 07/15/2015 4:44 AM CDT Addenda Addendum by Provider, Lupe Villanueva 07/15/2015 4:44 AM CDT RAD^^^AU XR Chest 2 Views 07/15/2015 04:44:08 Impressions 07/15/2015 7:45 AM CDT No change since 09/06/2013. No focal infiltrate or consolidation. No pleural effusion or pn eumothorax. Heart size and pulmonary vascularity within normal limi ts. Abdominal surgical clips. Narrative 07/15/2015 7:45 AM CDT EXAM: XR Chest 2 Views INDICATION: chest pain COMPARISON: 09/06/2013 Procedure Note Nalini Hoskins M.D. / Provider, Amarilys velez M.D. - 09/04/2016 EXAM: XR Chest 2 Views INDICATION: chest pain COMPARISON: 09/06/2013 IMPRESSION: No change since 09/06/2013. No focal infiltrate or consolidation. No pleural effusion or pn eumothorax. Heart size and pulmonary vascularity within normal limi ts. Abdominal surgical clips. Hillary Prince(Petra)(CT), R.T.(R) IMG DIAGNOSTIC PATRICK GING PROCEDURES documented in this encounter Visit Diagnoses Not on filedocumented in this encounter
--- OUTSIDE RECORDS SUMMARY | 2022-02-03 23:57 | XMS_ITS | Encounter Summary ---
:1985 Author Organization [facility] Address [address] [place] [address] Care Team Providers Name Role Phone Unavailable Primary Care Provider Unavailable Encounter Details Date Type Department Care Team Description 03/07/2015 Hospital Encounter HX [facility] Juwan Figueroa M.D. [address] [place] [phone] (Wo rk) Social History Tobacco Use Types Packs/Day Years Used Date Smoking Tobacco: Never Assessed Sex Assigned at Date Recorded Not on file documented as of this encounter Last Filed Vital Signs Vital Sign Reading Time Taken Comments Blood Pressure 120/74 03/07/2015 8:54 AM CARBON COATING MACHINE OPERATOR Pulse 76 03/07/2015 8:54 AM CARBON COATING MACHINE OPERATOR Temperature - - Respiratory Rate 20 03/07/2015 8:54 AM CARBON COATING MACHINE OPERATOR Oxygen Saturation - - Inhaled Oxygen Concentration - - Weight - - Height - - Body Mass Index - - documented in this encounter Discharge Summaries Devi Raza R.N. - 03/07/2015 9:17 AM CST ED Discharge Instructions [facility] [address] [place] [address] Name: SILVIA MAY Date of : 1985 12:00 AM Visit Date: 03/07/2015 8:04 AM [facility] Number: [id number] Address: [address] [place] [id number] Primary Care Provider: SOFIE VÁZQUEZ MD IMPORTANT: [facility] in [place] would like to thank you for allowing us to assist youwith your healthcare needs. The following includes patient education materials and information regarding your injury/illness. Diagnosis: Pain Abdominal NOS Follow-Up Instructions: With: Address: When: SOFIE VÁZQUEZ [address] [place] [phone] Business (1) Within As Needed Comments: Call for follow up appointment Your Upcoming Appointments: Date Time Location Provider No Appointments found Patient Education Materials: Abdominal Pain, Unknown Cause (Female) The exact cause of your abdominal (stomach) pain is not certain. This does not mean that this is something to worry about, or the right tests were not done. Everyone likes to know the exact cause of the problem, but sometimes with abdominal pain, there is no clear-cut cause, and this could be a good thing. The good news is that your symptoms can be treated, and you will feel better. Your condition does not seem serious now; however, sometimes the signs of a serious problem may takemore time to appear. For this reason, it is important for you to watch for any new symptoms, problems, or worsening of your condition. Over the next few days, the abdominal pain may come and go, or be continuous. Other common symptoms can include nausea and vomiting. Sometimes it can be difficult to tell if you feel nauseous, you may just feel bad and not associate that feeling with nausea. Constipation, diarrhea, and a fever may go along with the pain. The pain may continue even if treated correctly over the following days. Depending on how things go,sometimes the cause can become clear and may require further or different treatment. Additional evaluations, medications, or tests may be needed. Home care Your health care provider may prescribe medications for pain, symptoms, or an infection. Follow the health care provider's instructions for taking these medications. General care ?? Rest until your next exam. No strenuous activities. ?? Try to find positions that ease discomfort. A small pillow placed on the abdomen may help relievepain. ?? Something warm on your abdomen (such as a heating pad) may help, but be careful not to burn yourself. Diet ?? Do not force yourself to eat, especially if having cramps, vomiting, or diarrhea. ?? Water is important so you do not get dehydrated. Soup may also be good. Sports drinks may also help, especially if they are not too acidic. Make sure you don't drink sugary drinks as this can make things worse. Take liquids in small amounts. Do not guzzle them. ?? Caffeine sometimes makes the pain and cramping worse. ?? Avoid dairy products if you have vomiting or diarrhea. ?? Don't eat large amounts at a time. Wait a few minutes between bites. ?? Eat a diet low in fiber (called a low-residue diet). Foods allowed include refined breads, white rice, fruit and vegetable juices without pulp, tender meats. These foods will pass more easily through the intestine. ?? Avoid whole-grain foods, whole fruits and vegetables, meats, seeds and nuts, fried or fatty foods, dairy, alcohol and spicy foods until your symptoms go away. Follow-up care Follow up with your health care provider as instructed, or if your pain does not begin to improve inthe next 24 hours. When to seek medical care Seek prompt medical care if any of the following occur: ?? Pain gets worse or moves to the right lower abdomen ?? New or worsening vomiting or diarrhea ?? Swelling of the abdomen ?? Unable to pass stool for more than three days ?? Fever of 100.4?F (38?C) or higher, or as directed by your healthcare provider. ?? Blood in vomit or bowel movements (dark red or black color) ?? Jaundice (yellow color of eyes and skin) ?? Weakness, dizziness ?? Chest, arm, back, neck or jaw pain ?? Unexpected vaginal bleeding or missed period Call 911 Call emergency services if any of the following occur: ?? Trouble breathing ?? Confusion ?? Fainting or loss of consciousness ?? Rapid heart rate ?? Seizure ?? [phone] [address]. All rights reserved. This information is not [...] if you dont have one. Go to [email or web address] and click on Create Your Account. Then, follow the directions to complete the online form. Youll be asked for your [facility] number which you can find at the top of this document. ED Tests and Procedures: Order Status Automated Diff-5 Part Completed Urinalysis with Culture if Indicated Completed CBC (includes Auto Differential) Completed Comprehensive Metabolic Panel Completed Culture Urine Ordered Discharge Prescriptions & Home Medications: Medication/Strength Dose Route Frequency Indications/Special Instructions/Comments/Notes lidocaine topical (Lidoderm 5% topical film) 1 [...] four times a day Take with food. levofloxacin (Levaquin 750 mg oral tablet) 750 mg Oral once a day for 5 Days acetaminophen-codeine (Tylenol with Codeine #3 oral tablet) [...] document has images extracted. Please consider using [employer] for all your patient education needs. Source: [employer] Document Id: [id number] ON COATING MACHINE OPERATOR Devi Raza R.N. - 03/07/2015 9:17 AM CST ED Depart Summary [facility] Emergency Department / Urgent Care Clinical Discharge Summary PERSON INFORMATION Name SILVIA MAY Age 29 Years 1985 12:00 AM Sex Female Language Central African PCP SOFIE VÁZQUEZ MD Marital Status Single N [id number] Visit Id Visit Reason Abdominal pain; abdominal pain-vomitting Specialty Enc Type Emergency Med Service Emergency Medicine Referred by Track Group [facility] ED/UC Discharge 03/07/2015 9:17 AM Tracking Id [id number] Checkout 03/07/2015 9:17 AM Checkin 03/07/2015 8:04 AM Acuity 3 -Urgent Dispo Type * Discharged to Home or Self Care Arrival 03/07/2015 8:04 AM Reg Status Complete LOS 000 01:13 Address: [address] [place] [address] Comment: PROVIDER INFORMATION Provider Role Provider Contact Time RAY BELLE RN ED Nurse 03/07/15 08:08 GRACIELA FIGUEROA MD ED Provider 03/07/15 08:10 DONNIE MEDRANO ED Finisher [employer] 03/07/15 08:20 DEVI RAZA RN ED Nurse 03/07/15 08:20 DIAGNOSIS Pain Abdominal NOS Comment: PATIENT EDUCATION INFORMATION Instructions: ABDOMINAL PAIN, Unknown Cause, (Female) Follow up: With: Address: When: SOFIE VÁZQUEZ [address] [place] [phone] Business (1) Within As Needed Comments: Call for follow up appointment Source: [employer] Document Id: [id number] ON COATING MACHINE OPERATOR documented in this encounter ED Notes Devi Raza R.N. - 03/07/2015 9:17 AM CST ED Disposition Summary ED Disposition Summary Entered On: 03/07/2015 9:17 CARBON COATING MACHINE OPERATOR Performed On: 03/07/2015 9:17 CARBON COATING MACHINE OPERATOR by DEVI RAZA VARNISH MIXER Disposition Summary Accompanied By : Alone Mode of Discharge : Ambulatory Transportation : Private vehicle Discharge From ED With : Home Med List Printed Discharge Instructions Given to Patient : Yes Patient Status at Discharge from ED : Improved DEVI RAZA RN - 03/07/2015 9:17 CARBON COATING MACHINE OPERATOR Source: [employer] Document Id: [id number] CARBON COATING MACHINE OPERATOR!8 ON COATING MACHINE OPERATOR Devi Raza R.N. - 03/07/2015 9:17 AM CST ED Pain Assessment ED Pain Assessment Entered On: 03/07/2015 9:17 CARBON COATING MACHINE OPERATOR Performed On: 03/07/2015 9:17 CARBON COATING MACHINE OPERATOR by DEVI RAZA RN Pain Assessment Pain Symptoms : Yes DEVI RAZA RN - 03/07/2015 9:17 CARBON COATING MACHINE OPERATOR Source: [employer] Document Id: [id number] CARBON COATING MACHINE OPERATOR!3 ON COATING MACHINE OPERATOR Devi Raza R.N. - 03/07/2015 8:22 AM CST ED Primary Assessment Document Has Been Updated ED Primary Assessment Entered On: 03/07/2015 8:28 CARBON COATING MACHINE OPERATOR Performed On: 03/07/2015 8:22 CARBON COATING MACHINE OPERATOR by DEVI RAZA RN Reason For Visit (As Of: 03/07/2015 08:28:13 CARBON COATING MACHINE OPERATOR) Problems(Active) No Chronic Problems (Cerner :NKP ) Name of Problem: No Chronic Problems ; Recorder: NATY XIE MD; Confirmation: Confirmed ; Classification: Medical ; Code: NKP ; Last Updated: 05/15/2013 16:30 CARBON COATING MACHINE OPERATOR; Life Cycle Date: 05/15/2013 ; Life Cycle Status: Active ; Vocabulary: Karen Diagnoses(Active) Abdominal pain Date: 03/07/2015 ; Diagnosis Type: Reason For Visit ; Confirmation: Complaint of ; Clinical Dx: Abdominal pain ; Classification: Medical ; Clinical Service: Emergency medicine ; Code: PNED ; Probability: 0 ; Diagnosis Code: [id number] Pain Abdominal NOS Date: 03/07/2015 ; Diagnosis Type: Discharge ; Confirmation: Confirmed ; ClinicalDx: Pain Abdominal NOS ; Classification: Medical ; Clinical Service: Emergency medicine ; Code: ICD-10-CM ; Probability: 0 ; Diagnosis Code: R10.9 Triage Chief Complaint Description : Pt presents with c/o right sided rib pain that radiates to her back. no urinary symptoms, no sob, slight cough. Pain is worse with walking. She says she had an xray and CT3 days ago and has been on atb. Mode of Arrival ED : Private vehicle Track : Medical Languages : Central African Treatments Prior to Arrival : Home treatments Are you ? : No Is Patient Female and 13-50 no hysterectomy : Yes Status : Patient denies DEVI RAZA RN - 03/07/2015 8:22 CARBON COATING MACHINE OPERATOR Pain Assessment Pain Symptoms : Yes DEVI RAZA RN - 03/07/2015 8:22 CARBON COATING MACHINE OPERATOR Pain Scale Pain Scale Verbal 0-10 : Open DEVI RAZA RN - 03/07/2015 8:22 CARBON COATING MACHINE OPERATOR Pain Pain Assessment Grid Pain 1 Location : Abdomen Laterality : Right Intensity : 7 Time Pattern : Acute, Constant Onset : Sudden Quality : Sharp Pain Radiation : Yes Aggravating Factors : Movement DEVI RAZA RN - 03/07/2015 8:22 CARBON COATING MACHINE OPERATOR ED Physician Notification Time ED Physician Notification Time : 03/07/2015 8:22 CARBON COATING MACHINE OPERATOR DEVI RAZA RN - 03/07/2015 8:22 CARBON COATING MACHINE OPERATOR DENNY DCP GENERIC CODE Tracking Acuity : 3 -Urgent Tracking Group : [facility] ED/ DEVI RAZA RN - 03/07/2015 8:22 CARBON COATING MACHINE OPERATOR Allergy (As Of: 03/07/2015 08:28:13 CARBON COATING MACHINE OPERATOR) Allergies (Active) NKA Estimated Onset Date: Unspecified ; Created By: KATIE BRUNNER MD; Reaction Status: Active ; Category: Drug ; Substance: NKA ; Type: Allergy ; Updated By: KATIE BRUNNER MD; Reviewed Date: 03/07/2015 8:26 CARBON COATING MACHINE OPERATOR Respiratory Airway : Patent Respirations : Unlabored Respiratory Pattern : Regular Oxygen Therapy : Room air Respiratory Detailed Assessment : Yes DEVI RAZA RN - 03/07/2015 8:22 CARBON COATING MACHINE OPERATOR Resp Detailed Respiratory Patient Stated Symptoms : None DEVI RAZA RN - 03/07/2015 8:22 CARBON COATING MACHINE OPERATOR Breath Sounds Assessment Grid BRIGIDO : Clear RUL : Clear RML : Clear LLL : Clear RLL : Clear DEVI RAZA RN - 03/07/2015 8:22 CARBON COATING MACHINE OPERATOR Cardiovascular Heart Rhythm : Regular Skin Color : Normal for ethnicity Skin Description : Dry, Normal Skin Temperature : Warm DEVI RAZA RN - 03/07/2015 8:22 CARBON COATING MACHINE OPERATOR Neurological Last Well Time Known : Not applicable Level of Consciousness : Alert Orientation : Oriented x 3 Characteristics of Speech : Clear Neuro Patient Stated Symptoms : None DEVI RAZA RN - 03/07/2015 8:22 CARBON COATING MACHINE OPERATOR ED Psychosocial Affect/Behavior : Calm, Cooperative, Appropriate Domestic Abuse Concerns : None Behavioral Health Screen/Safety Assmt : No DEVI RAZA RN - 03/07/2015 8:22 CARBON COATING MACHINE OPERATOR Gastrointestinal Nutrition ED : Adequate GI Detailed Assessment : Yes DEVI RAZA RN - 03/07/2015 8:22 CARBON COATING MACHINE OPERATOR GI Detailed GI Patient Stated Symptoms : Vomiting GI Note : vomited x 1 this morning DEVI RAZA RN - 03/07/2015 8:22 CARBON COATING MACHINE OPERATOR Musculoskeletal Fall Prevention Education Provided : DEVI PRADO RN - 03/07/2015 8:22 CARBON COATING MACHINE OPERATOR Social Habits Tobacco Use/Currently Using : Yes Exposure to Tobacco Smoke : Patient smokes, Other: occ alcohol Smoking Status : Current every day smoker DEVI RAZA RN - 03/07/2015 8:22 CARBON COATING MACHINE OPERATOR Tobacco Use Grid Cigarette Use Packs/Day : 0.5 DEVI RAZA RN - 03/07/2015 8:22 CARBON COATING MACHINE OPERATOR Peripheral IV Peripheral IV Assess/Intervention Grid Peripheral IV #1 IV Activity : Start Number of Attempts : 1 Date of Insertion : 03/07/2015 CARBON COATING MACHINE OPERATOR IV Site : Forearm Laterality : Right Catheter Size : 20 Catheter Type : Over the needle DEVI RAZA RN - 03/07/2015 8:22 CARBON COATING MACHINE OPERATOR Source: [facility] POWERCHART Document Id: [id number] CARBON COATING MACHINE OPERATOR!85 ON COATING MACHINE OPERATOR Graciela Figueroa M.D. - 03/07/2015 8:12 AM CST Abdominal pain Patient: SILVIA MAY Age: 29 years Sex: Female : 1985 Author: GRACIELA FIGUEROA MD Attachments: None Associated Diagnosis: Pain Abdominal NOS Basic Information Time seen: Immediately upon arrival. History source: Patient. Arrival mode: Private vehicle. History limitation: None. Additional information: Chief Complaint from Nursing Triage Note : Chief Complaint Description 03/07/2015 8:06 CARBON COATING MACHINE OPERATOR Chief Complaint Description mid upper to right abdominal pain that radiates to her back. vomiting. pt was seen for same 3 days ago and stated she was dx with pneumonia and UTI and is currently on antibiotics and pain medications. . History of Present Illness The patient presents with abdominal pain. The onset was 3 days ago. The course/duration of symptoms is constant. The character of symptoms is achy. The degree at onset was moderate. The Location of pain at onset was right, upper and abdominal. The degree at present is moderate. The Location of pain atpresent is right, lower and abdominal. Radiating pain: none. The exacerbating factor is none. The relieving factor is none. Therapy today: Toradol. Risk factors consist of none. Associated symptoms: none. CT stone protocol 3 days ago, negative for stone. Lung bases seen on CT and possible pneumonia sostarted on Levaquin UA suggestive of UTI. Review of Systems Constitutional symptoms: No fever or no chills. ENMT symptoms: No sore throat. Respiratory symptoms: No shortness of breath or no cough. Cardiovascular symptoms: No chest pain or no syncope. Gastrointestinal symptoms: Abdominal pain and nausea, but no vomiting, no diarrhea or no constipation. Genitourinary symptoms: No dysuria, no hematuria, no vaginal bleeding or no vaginal discharge. Neurologic symptoms: No headache or no dizziness. Additional review of systems information: All other systems reviewed and otherwise negative. Health Status Allergies: Allergic Reactions (Selected) NKA. Medications: Per nurse's notes. Immunizations: Per nurse's notes. Menstrual history: Per nurse's notes. Past Medical/ Family/ Social History Medical history: Reviewed as documented in chart. Surgical history: Other Manually Assisted Delivery (73.59) in the week of 10/03/2004 at 19 Years. Comments: 04/15/2010 19:22 - KAREN MORALES Hx: 73.59 - 03/21/2013 17:41 - Contributor source changed to PowerChart. Other Artificial Rupture of Membranes (73.09) in the week of 10/03/2004 at 19 Years. Comments: 04/15/2010 19:22 - KAREN MORALES Hx: 73.09 - 03/21/2013 17:41 - Contributor source changed to PowerChart. Episiotomy (73.6) in the week of 10/03/2004 at 19 Years. Comments: 04/15/2010 19:22 - KAREN MORALES Hx: 73.6 - 03/21/2013 17:41 - Contributor source changed to PowerChart. Repair of Other Current Obstetric Laceration (75.69) in the week of 10/03/2004 at 19 Years. Comments: 04/15/2010 19:22 - KAREN MORALES Hx: 75.69 - 03/21/2013 17:41 - Contributor source changed to PowerChart. Cytopathology, slides, cervical or vaginal (the [facility]); manual screening under physician supervision.. ([id number]) in the week of 03/10/2004 at 18 Years. Comments: 04/18/2010 21:45 - KAREN MORALES Hx: [id number] - LAB-CYTOPATH, SM,D/V,TDS<3SM TECH 03/21/2013 17:41 - Contributor source changed to PowerChart., Reviewed as documented in chart. Family history: Reviewed as documented in chart. Social history: Not significant. Physical Examination Vital Signs: Per nurse's notes. General: Alert and no acute distress. Skin: Warm, moist and no rash. Head: Normocephalic and atraumatic. Neck: Supple and trachea midline. Eye: Pupils are equal, round and reactive to light and extraocular movements are intact. Cardiovascular: Regular rate and rhythm and Normal peripheral perfusion. Respiratory: Respirations are non-labored and Symmetrical chest wall expansion. Chest wall: No tenderness and No deformity. Musculoskeletal: Normal ROM. normal strength. Gastrointestinal: Soft, Non distended, Tenderness: Mild, right upper quadrant, Guarding: Negative and Rebound: Negative. Neurological: Alert and oriented to person, place, time, and situation and No focal neurological deficit observed. Medical Decision Making Differential Diagnosis:Abdominal pain, Appendicitis, urinary tract infection, pyelonephritis, constipation. Rationale:29 yo female s/p cholecystectomy here for second visit in 3 days for RUQ pain. Stone protocol negative, she is not colicky appearing. She is non-toxic, mild tenderness in RUQ without rash about R flank/abdomen. No GI or symptoms, no relation to food intake. Will re-assess UA and basic labs, if reassuring discharge to home with school note for today. Recommend OTC analgesics and Lidoderm patch for possible chest wall pain given it is positional. UA still equivocal, CMP and CBC entirely benign. Discharged to follow up with PCP. . Impression and Plan Diagnosis Pain Abdominal NOS (Discharge, Emergency medicine, Medical) Plan Condition: Stable. Disposition: Medically cleared, Discharged: to home. Prescriptions: Prescription Terminal Manager Pharmacy: [facility] excuse (Prescribe): See Instructions, Please excuse from school from ___03/06/2015 to 03/08/2015 due to illness , 1 each, 0 Refill(s). Patient was given the following educational materials: ABDOMINAL PAIN, Unknown Cause, (Female). Follow up with: SOFIE VÁZQUEZ Within As Needed Call for follow up appointment. Counseled: Patient, Regarding diagnosis, Regarding diagnostic results, Regarding treatment plan, Regarding prescription, Patient indicated understanding of instructions. Electronically Signed By: GRACIELA FIGUEROA MD On: 03/07/2015 09:15 AM Modified by and Electronically Signed by: GRACIELA FIGUEROA MD On: 03/07/2015 08:26 AM Source: [facility] POWERCHART Document Id: [id number] ON COATING MACHINE OPERATOR Sangita Allen R.N. - 03/07/2015 8:06 AM CST ED Triage Assessment Document Has Been Updated ED Triage Assessment Entered On: 03/07/2015 8:07 CARBON COATING MACHINE OPERATOR Performed On: 03/07/2015 8:06 CARBON COATING MACHINE OPERATOR by SANGITA ALLEN RN Reason For Visit (As Of: 03/07/2015 08:07:53 CARBON COATING MACHINE OPERATOR) Problems(Active) No Chronic Problems (Cerner :NKP ) Name of Problem: No Chronic Problems ; Recorder: NATY XIE MD; Confirmation: Confirmed ; Classification: Medical ; Code: NKP ; Last Updated: 05/15/2013 16:30 CARBON COATING MACHINE OPERATOR; Life Cycle Date: 05/15/2013 ; Life Cycle Status: Active ; Vocabulary: Cerner Diagnoses(Active) Abdominal pain Date: 03/07/2015 ; Diagnosis Type: Reason For Visit ; Confirmation: Complaint of ; Clinical Dx: Abdominal pain ; Classification: Medical ; Clinical Service: Emergency medicine ; Code: PNED ; Probability: 0 ; Diagnosis Code: [id number] Triage Chief Complaint Description : mid upper to right abdominal pain that radiates to her back. vomiting.pt was seen for same 3 days ago and stated she was dx with pneumonia and UTI and is currently on antibiotics and pain medications. Information Given By : Patient Accompanied By : Alone Mode of Arrival ED : Private vehicle Track : Medical Languages : Central African Patient Informed of Triage Location : Emergency department Treatments Prior to Arrival : Home treatments Is Patient Female and 13-50 no hysterectomy : Yes SANGITA ALLEN RN - 03/07/2015 8:06 CARBON COATING MACHINE OPERATOR Pain Assessment Pain Symptoms : Yes SANGITA ALLEN RN - 03/07/2015 8:06 CARBON COATING MACHINE OPERATOR Pain Scale Pain Scale Verbal 0-10 : Open SANGITA ALLEN RN - 03/07/2015 8:06 CARBON COATING MACHINE OPERATOR Pain Pain Assessment Grid Pain 1 Location : Abdomen Laterality : Right SANGITA ALLEN RN - 03/07/2015 8:06 CARBON COATING MACHINE OPERATOR DENNY DENNY Level 1 : No DENNY Level 2 : No DENNY Level 3 : Many SANGITA ALLEN RN - 03/07/2015 8:06 CARBON COATING MACHINE OPERATOR DCP GENERIC CODE Tracking Acuity : 3 -Urgent Tracking Group : [facility] ED/ SANGITA ALLEN RN - 03/07/2015 8:06 CARBON COATING MACHINE OPERATOR [facility]: [facility] [employer] Document Id: [id number] CARBON COATING MACHINE OPERATOR!27 ON COATING MACHINE OPERATOR documented in this encounter Miscellaneous Notes Miscellaneous - Devi Raza R.N. - 03/07/2015 9:17 AM CST Valuables/Belongings Valuables/Belongings Entered On: 03/07/2015 9:17 CARBON COATING MACHINE OPERATOR Performed On: 03/07/2015 9:17 CARBON COATING MACHINE OPERATOR by DEVI RAZA RN Valuables/Belongings Belongings Sent Home With : pt DEVI RAZA RN - 03/07/2015 9:17 CARBON COATING MACHINE OPERATOR Source: [employer] Document Id: [id number] CARBON COATING MACHINE OPERATOR!3 ON COATING MACHINE OPERATOR Miscellaneous - Conversion, Historical Provider Ser - 03/07/2015 9:17 AM CARBON COATING MACHINE OPERATOR Coding Summary-Paper Based CODING DATE: 03/22/2015 FINAL [facility] STATUS: * Discharged to Home or Self Care PAYOR: Medicaid ADMIT DX: R10.31 Right lower quadrant pain REASON FOR VISIT DX: R10.31 Right lower quadrant pain FINAL DX: PRINCIPAL: R10.11 Right upper quadrant pain SECONDARY: R11.0 Nausea F17.210 Nicotine dependence, cigarettes, uncomplicated PROCEDURES DOCTOR NAME DATE NOTE: The code number assigned matches the documented diagnosis and / or procedure in the patient's chart. However, the narrative phrase printed from the coding software may appear abbreviated, or result in slightly different terminology. Coded By: CASSANDRA ACEVES Date Saved: 03/22/2015 09:08 am Source: [employer] Document Id: [id number] documented in this encounter Plan of Treatment Not on filedocumented as of this encounter Procedures Procedure Name Priority Date/Time Associated Comments Diagnosis BACTERIAL CULTURE, Routine 03/07/2015 8:59 AM Res ults for this AEROBIC, URINE [employer] MACHINE OPERATOR procedure are in the results section. URINALYSIS, MIDSTREAM, Routine 03/07/2015 8:50 AM Results for this WITH CULTURE IF [employer] MACHINE OPERATOR procedure ar e in INDICATED the results section. AUTOMATED Routine 03/07/2015 8:20 AM Results f or this DIFFERENTIAL, B [employer] MACHINE OPERATOR procedure ar e in the results section. CBC WITH DIFFERENTIAL, Routine 03/07/2015 8:20 AM Results for this B [employer]ATING MACHINE OPERATOR procedure are i n the results section. COMPREHENSIVE Routine 03/07/2015 8:20 AM Results for this METABOLIC PANEL, S/P [employer] MACHINE OPERATOR procedu re are in the results section. documented in this encounter Results Bacterial Culture, Aerobic, Urine (03/07/2015 8:59 AM CARBON COATING MACHINE OPERATOR) [facility] Method Time Signature Bacterial POWERCHART Culture, Aerobic, Urine HXFinal Mixed harlan. No POWERCHART further studies unless notified. [facility] POWERCHART Microbiology laboratory [phone]. Specimen Anatomical Collection Method Collection Time Receive d Time (Source) Location / / Volume Laterality Urine, First 03/07/2015 8:59 AM 5 8:59 Voided [employer]ATING MACHINE OPERATOR AM [employer]ON COATING MACHINE OPERATOR Graciela Figueroa M.D. LAB MICROBIOLOGY - GENERAL O RDERABLES Performing Organization Address City/State/ZIP Code Phon e Number POWERCHART (ABNORMAL) Urinalysis, Midstream, with culture if indicated (03/07/2015 8:50 AM CARBON COATING MACHINE OPERATOR) [facility] Method Time Signature HXUr Color Yellow Colorless POWERCHART Clarity Slightly Clear POWERCHART Cloudy (A) Glucose Negative Negative POWERCHART MGDL Protein, Ur, Negative Negative POWERCHART Dip MGDL HXBILIRUBIN Negative Negative POWERCHART Urobilinogen <2.0 MGDL POWERCHART pH, POCT, Urine 5.5 <5.0 POWERCHART HXBLOOD Small (A) Negative POWERCHART Ketones, QL(U) Negative Negative POWERCHART MGDL HXNITRITE Negative Negative POWERCHART Leukocyte Small (A) Negative POWERCHART Esterase Specific 1.022 POWERCHART [place], POCT, U HXUR WBC. Occ-3 None Seen POWERCHART HPF HXUR RBC. Occ-2 None Seen POWERCHART HPF HXUR Bacteria, Present (A) None Seen POWERCHART Squamous 4-10 (A) None Seen POWERCHART Epithelial HPF Mucus Present (A) None Seen POWERCHART Specimen (Source) Anatomical Collection Method Collection Time Re ceived Time Location / / Volume Laterality Urine, First 03/07/2015 8:50 AM Voided [employer]ATING MACHINE OPERATOR Graciela Figueroa M.D. LAB URINE ORDERABLES Performing Organization Address City/[facility] Phon e Number POWERCHART Automated Differential (03/07/2015 8:20 AM CARBON COATING MACHINE OPERATOR) P athologist Signature Absolute 3.81 1.70 - POWERCHART Neutrophils 7.00 109L Lymphocytes 2.23 0.90 - POWERCHART 2.90 X109L Monocytes 0.53 0.30 - POWERCHART 0.90 X109L Eosinophils 0.40 0.05 - POWERCHART 0.50 X109L Absolute 0.03 0.00 - POWERCHART Basophil 0.30 X109L Specimen Anatomical Collection Method Collection Time Receive d Time (Source) Location / / Volume Laterality Blood 03/07/2015 8:20 AM 5 8:20 CAR[employer]ON COATING MACHINE OPERATOR AM [employer]ON COATING MACHINE OPERATOR Graciela Figueroa M.D. LAB BLOOD ADD-ON Performing Organization Address [facility] Phon e Number POWERCHART CBC with Differential (03/07/2015 8:20 AM CARBON COATING MACHINE OPERATOR) athologist Signature Leukocytes 7.0 3.4 - 10.5 POWERCHART X109L Erythrocytes 4.53 3.90 - 5.03 POWERCHART [id number] Hemoglobin 13.8 12.0 - 15.5 POWERCHART GDL Hematocrit 41.6 34.9 - 44.5 POWERCHART MCV 91.8 82.0 - 98.0 POWERCHART FL HX RDW 12.2 11.9 - 15.5 POWERCHART Platelet Count 222 150 - 450 POWERCHART X109L Specimen (Source) Anatomical Collection Method Collection Time Re ceived Time Location / / Volume Laterality Blood 03/07/2015 8:20 AM CAR[employer]ON COATING MACHINE OPERATOR Graciela Figueroa M.D. LAB BLOOD ADD-ON Performing Organization Address City/[facility] Phon e Number POWERCHART CMP (Comprehensive Metabolic Panel) (03/07/2015 8:20 AM CARBON COATING MACHINE OPERATOR) P athologist Signature Alanine 13 7 - 45 UL POWERCHART Amniotransferas e, LD Comment: Reference values have not been established for patients that are less than 12 months of age. Albumin, S 4.2 3.5 - 5.2 GDL POWERCHART Comment: Reference values have not been established for patients that are less than 12 months of age. Alkaline Phosphatase, S 53 35 - 105 UL SMOOTH RCHART Aspartate Aminotransferase (AST), S 16 8 - 43 UL POWERCHART Comment: Reference values have not been established for patients that are less than 12 months of age. Sodium, S 142 135 - 145 MMOLL POWERCHART Comment: Reference values have not been established for patients that are less than 12 months of age. Potassium, S 3.9 3.5 - 5.1 MMOLL POWERCHART Comment: Reference values have not been established for patients that are less than 12 months of age. Chloride, S 105 98 - 107 MMOLL POWERCHART Comment: Reference values have not been established for patients that are less than 12 months of age. CO2 Total 23 22 - 29 MMOLL POWERCHART Comment: Reference values have not been established for patients that are less than 12 months of age. BUN (Blood Urea Nitrogen), S 15 6 - 24 MGDL POWERCHART Creatinine 0.62 0.51 - 0.95 MGDL POWERCHART Comment: Reference values have not been establish ed for patients that are <12 months of age. ESTIMATED GFR >60 mL/min/BSA Note: eGFR results will not be calculate d for patients <18 Calcium, Total, S 8.9 8.6 - 10.3 MGDL POWERC NANCE Anion Gap 13 7 - 15 MMOLL POWERCHART Comment: Less than 2 years- No establish ed reference range. HXeGFR (MDRD) >60 >=60 [id number] POWERCHART eGFR Black/ >60 >=60 [id number] POWERCHART Bilirubin, Total, S 0.2 <=1.2 MGDL POWERCHAR T Comment: No estab ref range for patients 84 hours to 1 month of age. Total Protein, S 7.2 6.4 - 8.3 GDL POWERCHAR T Comment: Reference values have not been established for patients that are less than 12 months of age. Glucose 97 70 - 139 MGDL POWERCHART Comment: ADA [...] Time Location / / Volume Laterality Blood 03/07/2015 8:20 AM CARBON COATING MACHINE OPERATOR Graciela Figueroa M.D. LAB BLOOD ADD-ON Performing Organization Address City/State/ZIP Code Phon e Number POWERCHART documented in this encounter Visit Diagnoses Not on filedocumented in this encounter
--- OUTSIDE RECORDS SUMMARY | 2022-02-03 23:57 | XMS_ITS | Encounter Summary ---
:1985 Author Organization [facility] Address [address] [place] [address] Care Team Providers Name Role Phone Unavailable Primary Care Provider Unavailable Encounter Details Date Type Department Care Team Description 12/09/[address] [facility] Jg Soria M.D. [address] [place] [phone] (Wo rk) Social History Tobacco Use Types Packs/Day Years Used Date Smoking Tobacco: Never Assessed Sex Assigned at Date Recorded Not on file documented as of this encounter Last Filed Vital Signs Vital Sign Reading Time Taken Comments Blood Pressure 120/77 12/09/2015 1:19 PM CDT Pulse 84 12/09/2015 1:19 PM CDT Temperature - - Respiratory Rate - - Oxygen Saturation - - Inhaled Oxygen Concentration - - Weight 107 kg (235 lb 7.2 oz) 12/09/2015 1:19 PM CDT Height 169 cm (5' 6.54) 12/09/2015 1:19 PM CDT Body Mass Index 37.39 12/09/2015 1:19 PM CDT documented in this encounter Progress Notes Sofie Soria M.D. - 12/09/2015 12:55 PM CDT [id number] Patient presented here today with concerns of weight gain. She has been trying to lose weight for over a year and was very successful in the past. Unfortunately, she finds herself at a point where she cannot lose any further weight. She has continued to be very active. She has 5 children. She has changed her diet. She is reporting episodes of anxiety which is currently controlled off medications. She is not taking any other leja-yie-tnictve medications. SOCIAL HISTORY She reports occasional ETOH intake. She does smoke under 10 cigarettes per day. No illegal drug use reported. PHYSICAL EXAMINATION VITAL SIGNS: Temp of 36.7, BP 120/77, saturating at 100%. GENERAL: No acute distress. CARDIOVASCULAR: Regular rate and rhythm. No murmur, rubs or gallops appreciated. NEUROLOGIC: No focal abnormality is noted. No tremor. EXTREMITIES: No edema. IMPRESSION/REPORT/PLAN Grgcig-aziwe-kuhp-old female who is seen here today for weight loss management. Body mass index 37.39: Patient's weight reviewed. Six weeks ago, patient was over 235. She continuously losing weight per day although not at the rate she would like. I have sent a consult to the dietitian. We discussed medications including Orlistat, phentermine, or Qsymia. We have decided on phentermine at this time. She will continue her usual diet and will follow up with us in a month for reassessment of weight, blood pressure and others. We have also discussed referral to Surgery which she has researched online. She would be willing to go there. Her goal weight would be 160 to 180 pounds. Currently, she is at 233 pounds. Patient will follow up with us accordingly. Sofie Soria M.D./guillermo Electronically Signed By: SOFIE SORIA MD On: 12/12/2015 05:03 PM Source: [facility] MHSDOLBEYNONRADSYS Document Id: [id number] documented in this encounter Miscellaneous Notes Miscellaneous - Conversion, Historical Provider Ser - 12/30/2015 1:46 PM CDT *General Message From: TRELL GARRETT ( [facility]) Sent: 12/30/2015 13:46:18 CDT Subject: *General Message Patient has a referral that is and will be cancelled. Please see following note from requestqueue. 12/16/15 Letter Mailed. [facility] 12-09-15 Ok to sched, work comp approved 6 sessions. 12-10-15 tried calling patient, phone rings many times and then cuts off to a busy signal. jla 12/12/15 tried calling again, phone rings and then goes to fast busy signal, unable to leave a message. [facility] Source: [facility] POWERCHART Document Id: [id number] Miscellaneous - Conversion, Historical Provider Ser - 12/17/2015 12:41 PM CDT PCP Yang Document Contains Addenda Addendum by SOFIE SORIA MD on December 18, 2015 10:17:54 CDT Noted Addendum by RASHMI SALTER CMA on December 18, 2015 09:44:26 CDT Pt. informed of below. Pt. states she does not want to stop the phentermine and is okay waiting til appt. to discuss further options. Addendum by SOFIE SORIA MD on December 18, 2015 09:23:10 CDT From: SOFIE SORIA MD To: YADIRA Batista/Jaime/Yang/Monica/Kelly/Iraida Nurse; Sent: 12/18/2015 09:23:10 CDT Subject: RE: PCP Yang Addendum by SOFIE SORIA MD on December 18, 2015 09:16:26 CDT Decrease energy is not a commonly reported side effect of this medication but headache is. If thosecontinue or becoming more concerning we will have to discontinue the medication and discussed other options at our next visit. Addendum by JANETH LEA RN on December 17, 2015 15:00:07 CDT From: JANETH LEA RN ( Primary Care Team RN) To: SOFIE SORIA MD; Sent: 12/17/2015 15:00:07 CDT Subject: FW: PCP Yang Patient calls to report the Phentermine is working well for appetite suppression, however since taking this, she has noted she has very little energy and has recurrent mild headaches. Asks if you have further recommendations for her regarding these symptoms? Next appt is 01/03/16. Awaiting appt with healthcare associate. From: NADEEM DIEGO ( [facility]) To: Primary Care Team RN; Sent: 12/17/2015 12:41:50 CDT Subject: PCP Yang Caller Name/Relationship Facility/Wing Call Back # [phone] Reason For Call Questions on her wt. loss medication Source: [facility] Ebuzzing and TeadsCHART Document Id: [id number] Olga - Sofie Soria M.D. - 12/09/2015 1:44 PM CDT Addendum by RASHMI SALTER CMA on December 09, 2015 14:05:10 CDT Referral sent. From: SOFIE SORIA MD To: YADIRA Batista/Jaime/Yang/Monica/Kelly/Iraida Nurse; Sent: 12/09/2015 13:44:39 CDT Consult bariatric surgery Dx: obesity Source: [facility] [employer]inite Document Id: [id number] Electronically signed by James, [facility] Auditing Control Clerk [id number] at 09/27/2016 3:00 AM CDT Olga - Sofie Soria M.D. - 12/09/2015 1:37 PM CDT Ambulatory Patient Summary [facility] [address] [place], [place] [phone] Visit Information Name: SILVIA BLANCHARD [facility] Number: [id number] Current Date: 12/09/2015 13:37:02 Physicians Attending Provider: SOFIE SORIA MD Primary Care Provider: SOFIE SORIA MD [phone] SILVIA BLANCHARD has been given the following [...] Take Indications/Special Instructions/Comments/Notes for Patient Medication Changes/Routing FLUoxetine (Prozac 10 mg oral tablet) 1 Tablet(s), Oral, once a day lidocaine topical (lidocaine 5% topical ointment) 1 gordy, Topical, three times a day x 14 day(s) Stop Taking the Following Medications: omeprazole (omeprazole 40 mg oral delayed release capsule) Medication list as of 12-09-15 13:37 Attention: If you have any medications at home that are not on this list, DO NOT take them until youcontact your provider for clarification. Give a copy of your medication list to your primary care provider. Update your medication list any time medications or doses are changed and carry your medication list at all times in case of emergency. Electronically Signed By: SOFIE SORIA MD Signed On:09-DEC-2015 13:37:00 Your Allergies & Intolerances Substance Reaction Symptoms [...] if you dont have one. Go to [email or web address] and click on Create Your Account. Then, follow the directions to complete the online form. Youll be asked for your [facility] number which you can find at the top of this document. Your Goals/Additional instructions: Source: [facility] POWERCHART Document Id: [id number] Miscellaneous - Sofie Soria M.D. - 12/09/2015 1:37 PM CDT Ambulatory Discharge Medication List [place] [address] [place], [place] [phone] Visit Information Name: SILVIA BLANCHARD [facility] Number: [id number] Visit Date: 12/09/2015 13:37:02 Attending Provider: SOFIE SORIA MD Primary Care Provider: SOFIE SORIA MD [phone] SILVIA BLANCHARD has been given the following list of medications: Your Medications It is important to take your medications as directed. Use a pill box or chart to help remind you to take your medications. Please let your doctor or nurse know if you have problems taking your medications. Medication/Strength How to Take Indications/Special Instructions/Comments/Notes for Patient Medication Changes/Routing FLUoxetine (Prozac 10 mg oral tablet) 1 Tablet(s), Oral, once a day lidocaine topical (lidocaine 5% topical ointment) 1 gordy, Topical, three times a day x 14 day(s) Stop Taking the Following Medications: omeprazole (omeprazole 40 mg oral delayed release capsule) Medication list as of 12-09-15 13:37 Attention: If you have any medications at home that are not on this list, DO NOT take them until youcontact your provider for clarification. Give a copy of your medication list to your primary care provider. Update your medication list any time medications or doses are changed and carry your medication list at all times in case of emergency. Electronically Signed By: SOFIE SORIA MD Signed On:09-DEC-2015 13:37:00 Additional Information: Source: [facility] POWERCHART Document Id: [id number] Miscellaneous - Hernesto Cruz LEmekaPEmekaN. - 12/09/2015 1:19 PM CDT Adult Leather Belt Loop Cutter Intake/History Adult Leather Belt Loop Cutter Intake/History Entered On: 12/09/2015 13:24 CDT Performed On: 12/09/2015 13:19 CDT by HERNESTO CRUZ LPN Intake Chief Complaint : WT ISSUES Temperature Core : 36.7 DegC(Converted to: 98.1 DegF) Peripheral Pulse Rate : 84 /min Systolic Blood Pressure : 120 mmHg Diastolic Blood Pressure : 77 mmHg NIBP Mean : 91 mmHg BP Location : Left upper extremity Blood Pressure Cuff Size : Large SpO2 : 100 % Oxygen Therapy : Room air Height : 169 cm(Converted to: 5 ft 7 inch(es), 67 inch(es)) Actual Weight : 106.8 kg(Converted to: 235 lb 7 oz) Weight Source : Standing scale Dosing Weight Clinic : 106.8 kg Clinic BSA : 2.24 Body Mass Index : 37.39 kg/m2 HERNESTO CRUZ [facility] - 12/09/2015 13:19 CDT General Info Information Given By : Patient Preferred Communication Mode : Verbal Languages : Singaporean Is Patient Female and 13-50 no hysterectomy : Yes Status : Patient denies Are you ? : No HERNESTO CRUZ [facility] - 12/09/2015 13:19 CDT Subjective Pain Symptoms : No HERNESTO CRUZ [facility] - 12/09/2015 13:19 CDT Dependent Habits Exposure to Tobacco Smoke : Patient smokes, Other: occ alcohol Smoking Status : Current every day smoker Tobacco 2A : Yes Tobacco Use/Currently Using : Yes Tobacco Use/Last 30 Days : Yes Tobacco Use/Last 12 months : Yes Type : Other: UNDER 10 A DAY Alcohol Use : Yes HERNESTO CRUZ [facility] - 12/09/2015 13:19 CDT Caffeine Use Grid Caffeine Use : None HERNESTO CRUZ [facility] - 12/09/2015 13:19 CDT Recreational Drug Use Grid Drug Use : Current Type : Alcohol Route : Oral Frequency : Other: TWICE A MONTH HERNESTO CRUZ [facility] 12/09/2015 13:19 CDT [facility] Document Id: [id number] CDT!45 documented in this encounter Plan of Treatment Not on filedocumented as of this encounter Visit Diagnoses Not on filedocumented in this encounter
--- OUTSIDE RECORDS SUMMARY | 2022-02-03 23:57 | XMS_ITS | Encounter Summary ---
:1985 Author Organization [facility] Address [address] [place] [address] Care Team Providers Name Role Phone Unavailable Primary Care Provider Unavailable Encounter Details Date Type Department Care Team Description 11/28/2015 Hospital Encounter HX [facility] [place], ERICKA, C.N.P. [address] [place] [id number] (Wo rk) Social History Tobacco Use Types Packs/Day Years Used Date Smoking Tobacco: Never Assessed Sex Assigned at Date Recorded Not on file documented as of this encounter Last Filed Vital Signs Vital Sign Reading Time Taken Comments Blood Pressure 125/73 11/28/2015 1:54 PM CDT Pulse 75 11/28/2015 1:54 PM CDT Temperature - - Respiratory Rate 16 11/28/2015 1:54 PM CDT Oxygen Saturation - - Inhaled Oxygen Concentration - - Weight 109 kg (240 lb 4.8 oz) 11/28/2015 1:54 PM CDT Height 166 cm (5' 5.35) 11/28/2015 1:54 PM CDT Body Mass Index 39.56 11/28/2015 1:54 PM CDT documented in this encounter Progress Notes [place], C.N.P., R.N. - 11/28/2015 2:16 PM CDT Clinic Full Note CHIEF COMPLAINT/REASON FOR VISIT fu andres avalos doi 11/24/15 HISTORY OF PRESENT ILLNESS Patient comes in today for work comp followup. She injured her back while work on 11/24/2015. Patient works at [employer]. 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 She has been employed here for 3 months now. She states she does enjoy her job. On the date of injury she was changing a residents brief and bent over to grab the strap when she bent back up she had instant pain in her lower spine area and could barely walk or bend afterwards. Since our last visit 2 days ago she did return to work however the standing and walking has been exacerbating her back pain, she is unable to stand or walk for more than 5 to 10 minutes before she feels intense pulling/tea ring sensation on the left side of her low back. She has no sharp shooting pains that radiate into her buttocks or down into her legs. She denies any numbness or tingling, she denies any weakness, she denies saddle anesthesia. She states the pain continues to be localized just over the lumbar spine and now the left-sided paraspinal musculature. She reports no leg pains and no leg weakness.For pain control she is using Hydrocodone, this does bring the pain to a manageable level 04/10. Without her pain is 7 - 10/10. She also uses baclofen and lidocaine ointment. we did also recommend ice and heat. Overall she states the pain is less intense and more manageable however she is needing her work restrictions modified to reduce the amount of time she is standing and walking.[1] MEDICATIONS acetaminophen 500 mg oral tablet, baclofen 10 mg oral tablet, GoLYTELY oral powder for reconstitution, HYDROcodone-acetaminophen 5 mg-325 mg oral tablet, lidocaine 5% topical ointment, naproxen 250 mg oral tablet, omeprazole 40 mg oral delayed release capsule, Prozac 10 mg oral tablet, List Documented Prior to Med History Completed ALLERGIES NKA PAST MEDICAL HISTORY Chronic Disease Gastroesophageal Reflux (GERD ERMELINDA) Historical No historical problems PROCEDURES/SURGICAL HISTORY Esophagogastroduodenoscopy (08/12/2015), Upper GI endoscopy (08/12/2015), Episiotomy (Week of 10/03/2004), Other Artificial Rupture of Membranes (Week of 10/03/2004), Other Manually Assisted Delivery (Week of 10/03/2004), Repair of Other Current Obstetric Laceration (Week of 10/03/2004), Cytopathology, slides, cervical or vaginal (the Truxton System); manual screening under physician supervision.. (Week of 03/10/2004). SOCIAL HISTORY Date Time: 11/28/2015 13:54 Tobacco: Smoking Status: Current every day smoker Exposure: Patient smokes, Other: occ alcohol Alcohol: Use: Yes Recreational Drugs: Use: None Type: No Results Found FAMILY HISTORY No qualifying data available. VITAL SIGNS T: 36.5 ??C (Core) HR: 75 RR: 16 BP: 125 / 73 HT: 166 cm WT: 109 kg BMI: 39.56 PHYSICAL EXAMINATION Deferred, no changes or new symptoms since last exam. DIAGNOSTIC RESULTS Reason For Exam back pain Report EXAM: XR Lumbar Spine 2 or 3 views INDICATION: back pain COMPARISON: None. IMPRESSION: Normal cervical lordosis. Subtle retrolisthesis of L5 on S1. No fracture. [2] IMPRESSION/REPORT/PLAN 1. Pain Low Back (LBP) Her light duty work restrictions were modified to limiting her standing walking to rarely, sitting frequently. She can rarely lift 5 pounds. She was also changed to 4-hour work day 5 days a week. No direct patient cares. And she is to use a walker with ambulation as needed since she is still unable to stand up straight. Ordered: OV Est Pt Level 3 - 25086 - 15 min FOOTNOTES [1]Clinic Full Note; LOLI PARK CNP 11/26/2015 17:01 CDT [2]XR Lumbar Spine 2 or 3 views; ASHLEY HERNANDEZ RT(R) 11/26/2015 17:18 CDT Electronically Signed By: LOLI PARK CNP On: 11/28/2015 02:22 PM Source: [facility] POWERCHART Document Id: [id number] documented in this encounter Miscellaneous Notes Miscellaneous - Conversion, Historical Provider Ser - 11/29/2015 10:46 AM CDT *General Message Document Contains Addenda Addendum by GROVER AVENDAÑO LPN on November 29, 2015 15:37:28 CDT Informed we do not have any clearance for the MRI at this time. When we get notification we will send an order to get the MRI. Addendum by KATERYNA GROVER Jess SANABRIA on November 29, 2015 15:35:23 CDT Informed that that seervice is not available through the clinic as she was given 2 copies. She explained that they couldn't read it very well on the fax that she sent to them. She will try again. Addendum by KATERYNA GROVER Jess SANABRIA on November 29, 2015 14:16:42 CDT Line busy. From: ERA SMITH ( Call Center Audio Narrator) To: Occupational Medicine [place] Nurse; Sent: 11/29/2015 10:46:47 CDT Subject: *General Message Caller Name/Relationship Facility/Wing Call Back # [phone] Reason For Call regarding MRI Source: [facility] [employer] Document Id: [id number] Miscellaneous - Conversion, Historical Provider Ser - 11/28/2015 4:54 PM CDT *General Message Document Contains Addenda Addendum by KATERYNA GROVER Jess SANABRIA on November 29, 2015 15:37:55 CDT Informed that that service is not available through the clinic as she was given 2 copies. She explained that they couldn't read it very well on the fax that she sent to them. She will try again. From: JORDAN MÁRQUEZ ( Call Center Audio Narrator) To: Occupational Medicine [place] [facility] Nurse; Sent: 11/28/2015 16:54:31 CDT Subject: *General Message Caller name / Relationship: self Facility / Wing: Callback number : [phone] Reason for call : pt would like paperwork faxed to Employer of the injury report restriction form Source: [facility] [employer]ART Document Id: [id number] Miscellaneous - Loli Pakr C.N.P., R.N. - 11/28/2015 2:00 PM CDT Addendum by TD STANLEY on November 28, 2015 14:14:32 CDT From: TD STANLEY ([facility] Mortgage Underwriter/Work Comp) To: LOLI PARK CNP; Sent: 11/28/2015 14:14:32 CDT Subject: RE: Request was faxed in per previous message. From: LOLI PARK CNP To: [facility] Mortgage Underwriter/Work Comp; Sent: 11/28/2015 14:00:13 CDT any work on if PT has been approved? Source: [facility] POWERCHART Document Id: [id number] Miscellaneous - Megan Nair L.P.N. 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 Intake/History Entered On: 11/28/2015 13:56 CDT Performed On: 11/28/2015 13:54 CDT by MEGAN NAIR LPN Intake Chief Complaint : fu [facility] doi 11/24/15 Temperature Core : 36.5 DegC(Converted to: 97.7 DegF) Peripheral Pulse Rate : 75 /min Respiratory Rate : 16 /min Systolic Blood Pressure : 125 mmHg Diastolic Blood Pressure : 73 mmHg NIBP Mean : 90 mmHg BP Location : Left upper extremity Blood Pressure Cuff Size : Regular Height : 166 cm(Converted to: 5 ft 5 inch(es), 65 inch(es)) Actual Weight : 109 kg(Converted to: 240 lb 5 oz) Dosing Weight Clinic : 109 kg Clinic BSA : 2.24 Body Mass Index : 39.56 kg/m2 MEGAN NAIR LPN - 11/28/2015 13:54 CDT General Info Information Given By : Patient Languages : Spanish Is Patient Female and 13-50 no hysterectomy : No MEGAN NAIR LPN - 11/28/2015 13:54 CDT Subjective Pain Symptoms : Yes MEGAN NAIR LPN - 11/28/2015 13:54 CDT Pain Scale Pain Scale Verbal 0-10 : Open MEGAN NAIR LPN - 11/28/2015 13:54 CDT Pain Pain Assessment Grid Pain 1 Location : Lower back Intensity : 7 MEGAN NAIR LPN - 11/28/2015 13:54 CDT Dependent Habits Exposure to Tobacco Smoke : Patient smokes, Other: occ alcohol Smoking Status : Current every day smoker Tobacco 2A : Yes Tobacco Use/Currently Using : Yes Tobacco Use/Last 30 Days : Yes Tobacco Use/Last 12 months : Yes Type : Cigarettes: Less than 20 per day Tobacco Use/Advised to Quit : No Alcohol Use : Yes MEGAN NAIR LPN - 11/28/2015 13:54 CDT Caffeine Use Grid Caffeine Use : None MEGAN NAIR LPN - 11/28/2015 13:54 CDT Recreational Drug Use Grid Drug Use : None MEGAN NAIR LPN - 11/28/2015 13:54 CDT [facility] Document Id: [id number] CDT!45 documented in this encounter Plan of Treatment Not on filedocumented as of this encounter Visit Diagnoses Not on filedocumented in this encounter
--- OUTSIDE RECORDS SUMMARY | 2022-02-03 23:57 | XMS_ITS | Encounter Summary ---
:1985 Author Organization [facility] Address [address] [place] [address] Care Team Providers Name Role Phone Unavailable Primary Care Provider Unavailable Encounter Details Date Type Department Care Team Description 12/26/2015 Hospital Encounter HX [facility] Kai Longo M.D. [address] [place], [place] [address] Social History Tobacco Use Types Packs/Day Years Used Date Smoking Tobacco: Never Assessed Sex Assigned at Date Recorded Not on file documented as of this encounter Plan of Treatment Not on filedocumented as of this encounter Visit Diagnoses Not on filedocumented in this encounter
--- OUTSIDE RECORDS SUMMARY | 2022-02-03 23:57 | XMS_ITS | Encounter Summary ---
:1985 Author Organization [facility] Address [address] [place] [address] Care Team Providers Name Role Phone Unavailable Primary Care Provider Unavailable Encounter Details Date Type Department Care Team Description 07/11/2015 Hospital Encounter HX [facility], M.D. [address] [place] [phone] (Wo rk) Social History Tobacco Use Types Packs/Day Years Used Date Smoking Tobacco: Never Assessed Sex Assigned at Date Recorded Not on file documented as of this encounter Last Filed Vital Signs Vital Sign Reading Time Taken Comments Blood Pressure 131/88 07/11/2015 10:02 AM FIT MODEL Pulse 101 07/11/2015 10:02 AM FIT MODEL Temperature - - Respiratory Rate 22 07/11/2015 10:02 AM FIT MODEL Oxygen Saturation - - Inhaled Oxygen Concentration - - Weight - - Height - - Body Mass Index - - documented in this encounter Discharge Summaries Jonas Evans, R.N. - 07/11/2015 11:03 AM CST ED Discharge Instructions [facility] [address] [facility] [place] [place] [address] Name: SILVIA STEELE Date of : 1985 12:00 AM Visit Date: 07/11/2015 9:53 AM [facility] Number: [id number] Address: [address] [place] [id number] Primary Care Provider: SOFIE VÁZQUEZ MD IMPORTANT: [facility] in [place] would like to thank you for allowing us to assist youwith your healthcare needs. The following includes patient education materials and information regarding your injury/illness. Diagnosis: Follow-Up Instructions: With: Address: When: SOFIE VÁZQUEZ [address] [place] [phone] Business (1) Within As Needed Comments: Continue salt water gargles 5 to6 times a day Ibuprofen and oxycodone for pain Continue abx and prednisone Return if worse follwo in clinic if concerns Your Upcoming Appointments: Date Time Location Provider No Appointments found Patient Education Materials: Pharyngitis: Strep [Confirmed] Your test for strep throat was positive. Strep throat is a contagious illness. It is spread by coughing, kissing or by touching others after touching your mouth or nose. Symptoms include throat pain which is worse with swallowing, aching all over, headache and fever. You will be treated with an antibiotic which should make you start to feel better within 1-2 days. Home Care: ?? Rest at home and drink plenty of fluids to avoid dehydration. ?? No school or work for the first two days on antibiotics. You will not be contagious after this time and if you are feeling better, you can return to school or work. ?? Take your antibiotics for a full 10 days, even if you feel better after the first few days of treatment. This is very important to prevent heart or kidney disease that can result as a complication of untreated strep throat infection. ?? Children: Use acetaminophen (Tylenol) for fever, fussiness or discomfort. In infants over six months of age, you may use ibuprofen (Children's Motrin) instead of Tylenol. [NOTE: If your child has chronic liver or kidney disease or ever had a stomach ulcer or GI bleeding, talk with your doctor before using these medicines.] (Aspirin should never be used in anyone under 18 years of age who is ill with a fever. It may cause severe liver damage.)Adults: You may use acetaminophen (Tylenol) or ibuprofen (Motrin, Advil) to control pain or fever, unless another medicine was prescribed for this. [NOTE: If you have chronic liver or kidney disease or ever had a stomach ulcer or GI bleeding, talk with yourdoctor before using these medicines.] ?? Throat lozenges or sprays (Chloraseptic and others) [...] any of the following occur: ?? Fever of 100.4?F (38?C) oral or higher, not better with fever medication ?? New or worsening ear pain, sinus pain or headache ?? Painful lumps in the back of your neck ?? Unable to swallow liquids or open your mouth wide due to throat pain ?? Trouble breathing or noisy breathing ?? Muffled voice ?? New rash ?? [phone] [facility], [address] [place] [address], [place] [address]. All rights reserved. This information is not [...] if you dont have one. Go to [email or web address] and click on Create Your Account. Then, follow the directions to complete the online form. Youll be asked for your [facility] number which you can find at the top of this document. ED Tests and Procedures: Order Status Discharge Prescriptions & Home Medications: Medication/Strength Dose Route Frequency Indications/Special Instructions/Comments/Notes 15Misc Prescription (Work excuse) See Instructions Please excuse from work from 07/11/15 to 07/13/15 d/t acute illness Misc Prescription (work excuse) See Instructions [...] arrange a ride home with a responsible libertarian. CEDRIC Ward KRISTINA LYNN , or responsible libertarian have received this information and my questions [...] arrange a ride home with a responsible libertarian. I, SILVIA STEELE , or responsible libertarian have received this information and my questions have been answered. I have discussed any challenges I see with this plan with the nurse or physician. Patient Signature or Responsible Libertarian/Relationship Date Time Provider Signature Date Time This document has images extracted. Please consider using [employer] for all your patient education needs. Source: [facility] POWERCHART Document Id: [id number] MODEL Jonas Evans, REmekaNEmeka - 07/11/2015 11:03 AM CST ED Depart Summary [facility] Emergency Department / Urgent Care Clinical Discharge Summary PERSON INFORMATION Name SILVIA STEELE Age 30 Years 1985 12:00 AM Sex Female Language [place] PCP SOFIE VÁZQUEZ MD Marital Status Single N [id number] Visit Id Visit Reason Throat pain - Adult; RECHECK Specialty Enc Type Emergency Med Service Emergency Medicine Referred by [facility] ED/UC Discharge 07/11/2015 11:03 AM Tracking Id [id number] Checkout 07/11/2015 11:03 AM Checkin 07/11/2015 9:53 AM Acuity 3 -Urgent Dispo Type * Discharged to Home or Self Care Arrival 07/11/2015 9:53 AM Reg Status Complete LOS 000 01:10 Address: [facility] [address] [address] Comment: PROVIDER INFORMATION Provider Role Provider Contact Time LANE SHI MD ED Provider 07/11/15 10:02 JONAS EVANS ED Nurse 07/11/15 10:08 DIAGNOSIS Comment: PATIENT EDUCATION INFORMATION Instructions: PHARYNGITIS, Strep (Confirmed) Follow up: With: Address: When: SOFIE VÁZQUEZ [address] [place] [phone] Business (1) Within As Needed Comments: Continue salt water gargles 5 to6 times a day Ibuprofen and oxycodone for pain Continue abx and prednisone Return if worse follwo in clinic if concerns Source: [employer] Document Id: [id number] MODEL documented in this encounter ED Notes Jonas Evans RDevendra - 07/11/2015 11:03 AM CST ED Pain Assessment ED Pain Assessment Entered On: 07/11/2015 11:03 FIT MODEL Performed On: 07/11/2015 11:03 FIT MODEL by JONAS EVANS Pain Assessment Pain Symptoms : Yes JONAS EVANS - 07/11/2015 11:03 FIT MODEL Pain Scale Pain Scale Verbal 0-10 : Open JONAS EVANS - 07/11/2015 11:03 FIT MODEL Pain Pain Assessment Grid Pain 1 Location : Throat Intensity : 6 Acceptable Intensity : 6 JONAS EVANS - 07/11/2015 11:03 FIT MODEL [facility] Document Id: [id number] FIT MODEL!11 MODEL Jonas Evans R.N. - 07/11/2015 11:02 AM CST ED Disposition Summary ED Disposition Summary Entered On: 07/11/2015 11:02 FIT MODEL Performed On: 07/11/2015 11:02 FIT MODEL by JONAS EVANS ED Disposition Summary Present in Room During Exam/Procedure : Son Mode of Discharge : Ambulatory Transportation : Private vehicle Printed Discharge Instructions Given to Patient : Yes Patient Status at Discharge from ED : Improved Comment : Encouraged to return if symptoms worsen or follow up with ENT. NO further questions at this time. Discharge in hand. JONAS EVANS - 07/11/2015 11:02 FIT MODEL Source: [employer] Document Id: [id number] FIT MODEL![address] Shi M.D. - 07/11/2015 10:38 AM CST Throat pain - Adult Patient: SILVIA STEELE Age: 30 years Sex: Female : 1985 Author: LANE SHI MD Attachments: None Basic Information Additional information: Chief Complaint from Nursing Triage Note : Chief Complaint Description 07/11/2015 10:03 FIT MODEL Chief Complaint Description Pt presents for a recheck of strep throat that she was placed on antibiotics for. Was seen yesterday morning and this nurse saw her. States, I'm feeling better, it still hurts a lot. Originally, voice was muffled and pt was crying due to pain. Now, voic 07/11/2015 10:01 FIT MODEL Chief Complaint Description Pt arrives report was seen a few days ago and was dx with strep and swollen tonsils with inability to swallow saliva. Advised if not better to come backto ED for draining of tonsils. 07/10/2015 7:24 FIT MODEL Chief Complaint Description Pt states she was dx w/strep yesterday and started on PCN, states her ST is much worse and she is crying due to pain, states pain is worse on the rt. . History of Present Illness The patient presents with throat pain. The onset was 3 days ago. The course/duration of symptoms is constant and improving. Location: pharynx. The character of symptoms is pain and redness. The degree at present is moderate. The exacerbating factor is none. Therapy today: prescription medications. pt was seen 2 days ago and was diagnosed with Strep. she was very sick from that and ws having severe pain/ she was treated with I/V fluid and abx and decadron. she also returned yesterday and received I/Vmeds. there was no peritonsillar abcess but she was instructed to come for recheck if notbetetr or gettign worse in case there is concern about peritonsilar abcess. pt is betetr today. she is still ahving lot of pain but is able to drink fluids and is talking better. low grade today. no vomiting. . Review of Systems Constitutional symptoms: Negative [...] recorded.. Physical Examination Vital Signs: Vital Signs 07/11/2015 10:02 FIT MODEL Temperature Core 37.4 DegC Peripheral Pulse Rate 101 /min HI Respiratory Rate 22 /min HI SpO2 97 % Systolic Blood Pressure 131 mmHg Diastolic Blood Pressure 88 mmHg BP Location Right upper 07/10/2015 9:08 FIT MODEL Pulse SpO2 106 /min SpO2 95 % Systolic Blood Pressure 121 mmHg Diastolic Blood Pressure 72 mmHg Mean Arterial Pressure 85 mmHg 07/10/2015 8:19 FIT MODEL Pulse SpO2 125 /min Respiratory Rate 18 /min SpO2 93 % LOW Systolic Blood Pressure 110 mmHg Diastolic Blood Pressure 82 mmHg Mean Arterial Pressure 90 mmHg 07/10/2015 7:24 FIT MODEL Temperature Core 37.6 DegC Apical Heart Rate 135 /min HI Respiratory Rate 18 /min SpO2 96 % Systolic Blood Pressure 126 mmHg Diastolic Blood Pressure 93 mmHg >HHI Mean Arterial Pressure 104 mmHg BP Location Right upper , Measurements 07/10/2015 7:24 FIT MODEL Height 169 cm , SpO2 07/11/2015 10:02 FIT MODEL SpO2 97 % 07/10/2015 9:08 FIT MODEL SpO2 95 % 07/10/2015 8:19 FIT MODEL SpO2 93 % LOW 07/10/2015 7:24 FIT MODEL SpO2 96 % . General: Alert and no acute distress. Skin: Warm, moist and no rash. Ears, nose, mouth and throat: Throat: Moderate, tonsil, with exudate, swelling, no peritonsillar abcess. No uvular swelling. tonsils are still swollen and has some exdute but betetr as noted from previous exam findings. Neck: Supple, trachea midline and no tenderness. Respiratory: Lungs are clear to auscultation and respirations are non-labored. Cardiovascular: Regular rate and rhythm. Medical Decision Making Differential Diagnosis:Streptococcal pharyngitis, exudative pharyngitis, peritonsillar abscess. Documents reviewed:Emergency department nurses' notes. Notes:at this time I am not concerned about peritonsillar abcess. reassured. her and advised to continue treatment. she is talking ok and her voice is not muffled. She is able to drinl fluid and her fever is better .. Impression and Plan Diagnosis recovering from Strep Plan Condition: Improved, Stable. Disposition: Discharged: to home. Patient was given the following educational materials: PHARYNGITIS, Strep (Confirmed). Follow up with: SOFIE Parmar As Needed Continue salt water gargles 5 to6 times a day Ibuprofen and oxycodone for pain Continue abx and prednisone Return if worse follwo in clinic if concerns. Electronically Signed By: LANE SHI MD On: 07/11/2015 04:16 PM Modified by and Electronically Signed by: LANE SHI MD On: 07/11/2015 10:43 AM Source: [facility] POWERCHART Document Id: [id number] MODEL Jonas Evans, R.NEmeka - 07/11/2015 10:03 AM CST ED Primary Assessment Document Has Been Updated ED Primary Assessment Entered On: 07/11/2015 10:22 FIT MODEL Performed On: 07/11/2015 10:03 FIT MODEL by JONAS EVANS Reason For Visit (As Of: 07/11/2015 10:22:42 FIT MODEL) Problems(Active) No Chronic Problems (Cerner :NKP ) Name of Problem: No Chronic Problems ; Recorder: NATY XIE MD; Confirmation: Confirmed ; Classification: Medical ; Code: NKP ; Last Updated: 05/15/2013 16:30 FIT MODEL; Life Cycle Date: 05/15/2013 ; Life Cycle Status: Active ; Vocabulary: [place] Diagnoses(Active) Throat pain - Adult Date: 07/11/2015 ; Diagnosis Type: Reason For Visit ; Confirmation: Complaint of; Clinical Dx: Throat pain - Adult ; Classification: Medical ; Clinical Service: Emergency medicine ; Code: PNED ; Probability: 0 ; Diagnosis Code: [id number] Triage Chief Complaint Description : Pt presents for a recheck of strep throat that she was placed on antibiotics for. Was seen yesterday morning and this nurse saw her. States, I'm feeling better, it still hurts a lot. Originally, voice was muffled and pt was crying due to pain. Now, voic (Comment: e is clear and no objective signs of discomfort although she still reports pain. [JONAS EVANS - 07/11/2015 10:13 FIT MODEL] ) Information Given By : Patient Present in Room During Exam/Procedure : Son Mode of Arrival ED : Private vehicle Track : Medical Languages : [place] Patient Informed of Triage Location : Emergency department GCS Assessed : Yes Treatments Prior to Arrival : None Are you ? : No Is Patient Female and 13-50 no hysterectomy : Yes Status : Patient denies JONAS EVANS - 07/11/2015 10:13 FIT MODEL [place] Coma Eye Opening Response Blanco : Spontaneously Best Verbal Response Blanco : Oriented Best Motor Response Blanco : Obeys simple commands [place] Coma Score : 15 JONAS EVANS 07/11/2015 10:13 FIT MODEL Pain Assessment Pain Symptoms : Yes JONAS EVANS 07/11/2015 10:13 FIT MODEL Pain Scale Pain Scale Verbal 0-10 : Open CRISTINA, 07/11/2015 10:13 FIT MODEL Pain Pain Assessment Grid Pain 1 Location : Throat Intensity : 8 Acceptable Intensity : 3 CRISTINA 07/11/2015 10:13 FIT MODEL Comfort Measures Comfort Measures Grid [place] Application : Yes Relaxation : Yes Rest : Yes CRISTINA 07/11/2015 10:13 FIT MODEL Comfort Measures Response : Comfort level increased CRISTINA 07/11/2015 10:13 FIT MODEL DENNY DENNY Level 1 : No DENNY Level 2 : No DENNY Level 3 : Many CRISTINA 07/11/2015 10:13 FIT MODEL DCP GENERIC CODE Tracking Acuity : 3 -Urgent Tracking Group : [facility] ED/UC CRISTINA 07/11/2015 10:13 FIT MODEL Allergy (As Of: 07/11/2015 10:22:42 FIT MODEL) Allergies (Active) NKA Estimated Onset Date: Unspecified ; Created By: KATIE BRUNNER MD; Reaction Status: Active ; Category: Drug ; Substance: NKA ; Type: Allergy ; Updated By: KATIE BRUNNER MD; Reviewed Date: 07/11/2015 10:15 FIT MODEL Respiratory Airway : Patent Respirations : Unlabored Respiratory Pattern : Regular Oxygen Therapy : Room air CRISTINA 07/11/2015 10:13 FIT MODEL Cardiovascular Heart Rhythm : Regular Skin Color : Normal for ethnicity Skin Description : Dry Skin Temperature : Warm Cardiovascular Detailed Assessment : Yes Monitoring Lead : II, V5/MCL5 Monitoring Lead Lingo Cleaner : Initiated CRISTINA 07/11/2015 10:13 FIT MODEL CV Detailed CV Patient Stated Symptoms : None Nail Bed Color : [place] Capillary Refill : Less than 2 seconds Heart Sounds ICU : S1S2 CRISTINA 07/11/2015 10:13 FIT MODEL Neurological Last Well Time Known : Not applicable Level of Consciousness : Alert Orientation : Oriented x 3 Characteristics of Speech : Clear Neuro Patient Stated Symptoms : None Gait : Steady Swallowing Difficulty/Aspiration Risk : None CRISTINA 07/11/2015 10:13 FIT MODEL ED Psychosocial Affect/Behavior : Calm Domestic Abuse Concerns : None Behavioral Health Screen/Safety Assmt : No CRISTINA 07/11/2015 10:13 FIT MODEL Gastrointestinal Nutrition ED : Adequate GI Detailed Assessment : Yes CRISTINA 07/11/2015 10:13 FIT MODEL GI Detailed GI Patient Stated Symptoms : Loss of appetite CRISTINA, JONAS - 07/11/2015 10:13 FIT MODEL /OB Assessment Patient Stated Symptoms : None CRISTINA JONAS - 07/11/2015 10:13 FIT MODEL Musculoskeletal Fall Prevention Education Provided : ANTONIO CRISTINA JONAS - 07/11/2015 10:13 FIT MODEL EENT Mouth and Throat Symptoms : Sore throat, Swollen tonsils CRISTINAJONAS - 07/11/2015 10:13 FIT MODEL Social Habits Exposure to Tobacco Smoke : Patient smokes, Other: occ alcohol Smoking Status : Current every day smoker Tobacco 2A : Yes Tobacco Use/Currently Using : Yes Tobacco Use/Last 30 Days : Yes Tobacco Use/Last 12 months : Yes Type : Cigarettes: Less than 20 per day Tobacco Use/Advised to Quit : No JONAS EVANS - 07/11/2015 10:13 FIT MODEL Alcohol Use Grid Alcohol Use : Yes Frequency : Occasionally JONAS EVANS - 07/11/2015 10:13 FIT MODEL Source: [facility] [employer] Document Id: [id number] FIT MODEL!96 MODEL Franca Brito R.N. - 07/11/2015 10:01 AM CST ED Triage Assessment Document Has Been Updated ED Triage Assessment Entered On: 07/11/2015 10:03 FIT MODEL Performed On: 07/11/2015 10:01 FIT MODEL by FRANCA BRITO RN Reason For Visit (As Of: 07/11/2015 10:03:26 FIT MODEL) Problems(Active) No Chronic Problems (Cerner :NKP ) Name of Problem: No Chronic Problems ; Recorder: NATY XIE MD; Confirmation: Confirmed ; Classification: Medical ; Code: NKP ; Last Updated: 05/15/2013 16:30 FIT MODEL; Life Cycle Date: 05/15/2013 ; Life Cycle Status: Active ; Vocabulary: Cerner Diagnoses(Active) Throat pain - Adult Date: 07/11/2015 ; Diagnosis Type: Reason For Visit ; Confirmation: Complaint of; Clinical Dx: Throat pain - Adult ; Classification: Medical ; Clinical Service: Emergency medicine ; Code: PNED ; Probability: 0 ; Diagnosis Code: [id number] Triage Chief Complaint Description : Pt arrives report was seen a few days ago and was dx with strep and swollen tonsils with inability to swallow saliva. Advised if not better to come back to ED for drainingof tonsils. Information Given By : Patient Mode of Arrival ED : Private vehicle Track : Medical Languages : [place] Patient Informed of Triage Location : Emergency department Treatments Prior to Arrival : None Are you ? : No Is Patient Female and 13-50 no hysterectomy : Yes Status : Patient denies FRANCA BRITO RN - 07/11/2015 10:01 FIT MODEL Pain Assessment Pain Symptoms : Yes FRANCA BRITO RN - 07/11/2015 10:01 FIT MODEL Pain Scale Pain Scale Verbal 0-10 : Open FRANCA RBITO RN - 07/11/2015 10:01 FIT MODEL Pain Pain Assessment Grid Pain 1 Location : Throat FRANCA BRITO - 07/11/2015 10:01 FIT MODEL DENNY DENNY Level 1 : No DENNY Level 2 : No DENNY Level 3 : Many Vital Signs DENNY : No FRANCA BRITO RN - 07/11/2015 10:01 FIT MODEL DCP GENERIC CODE Tracking Acuity : 3 -Urgent Tracking Group : [facility] ED/ FRANCA BRITO RN - 07/11/2015 10:01 FIT MODEL Source: [employer] Document Id: [id number] FIT MODEL!28 MODEL documented in this encounter Miscellaneous Notes Miscellaneous - Jonas Evans REmekaNEmeka - 07/11/2015 11:03 AM CST Valuables/Belongings Valuables/Belongings Entered On: 07/11/2015 11:03 FIT MODEL Performed On: 07/11/2015 11:03 FIT MODEL by JONAS EVANS/Armando Room Orientation/Facility Policy Reviewed : Yes Home Medication Disposition : None brought in with patient JONAS EVANS - 07/11/2015 11:03 FIT MODEL [facility] Document Id: [id number] FIT MODEL!4 MODEL Miscellaneous - Conversion, Historical Provider Ser - 07/11/2015 11:03 AM FIT MODEL Coding Summary-Paper Based CODING DATE: 07/26/2015 FINAL [facility] STATUS: * Discharged to Home or Self Care PAYOR: Medicaid ADMIT DX: R07.0 Pain in throat REASON FOR VISIT DX: R07.0 Pain in throat FINAL DX: PRINCIPAL: J02.0 Streptococcal pharyngitis SECONDARY: F17.210 Nicotine dependence, cigarettes, uncomplicated PROCEDURES DOCTOR NAME DATE NOTE: The code number assigned matches the documented diagnosis and / or procedure in the patient's chart. However, the narrative phrase printed from the coding software may appear abbreviated, or result in slightly different terminology. Coded By: ANTHONY GONZALEZ Date Saved: 07/26/2015 11:29 am Source: [facility] POWERCH[facility] Document Id: [id number] documented in this encounter Plan of Treatment Not on filedocumented as of this encounter Visit Diagnoses Not on filedocumented in this encounter
--- OUTSIDE RECORDS SUMMARY | 2022-02-03 23:57 | XMS_ITS | Encounter Summary ---
:1985 Author Organization [facility] Address [address] [place] [address] Care Team Providers Name Role Phone Unavailable Primary Care Provider Unavailable Encounter Details Date Type Department Care Team Description 11/26/2015 Hospital Encounter HX [facility] OCC[facility] MED [place], ERICKA, C.N.P. [address] [place] [phone] (Wo rk) Social History Tobacco Use Types Packs/Day Years Used Date Smoking Tobacco: Never Assessed Sex Assigned at Date Recorded Not on file documented as of this encounter Last Filed Vital Signs Vital Sign Reading Time Taken Comments Blood Pressure 125/72 11/26/2015 4:11 PM CDT Pulse 98 11/26/2015 4:11 PM CDT Temperature - - Respiratory Rate 18 11/26/2015 4:11 PM CDT Oxygen Saturation - - Inhaled Oxygen Concentration - - Weight 109 kg (239 lb 3.2 oz) 11/26/2015 4:11 PM CDT Height 166 cm (5' 5.35) 11/26/2015 4:11 PM CDT Body Mass Index 39.37 11/26/2015 4:11 PM CDT documented in this encounter Progress Notes Loli Park, C.N.P., R.N. - 11/26/2015 5:01 PM CDT Clinic Full Note CHIEF COMPLAINT/REASON FOR VISIT [facility]. DOI 11/24/2015. HISTORY OF PRESENT ILLNESS Patient comes in today for work comp evaluation. She injured her back while work on 11/24/2015. Patient works at [employer]. 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 She has been employed here for 3 months now. She states she does enjoy her job. On the date of injury she was changing a residents brief and bent over to grab the strap when she bent back up shehad instant pain in her lower spine area and could barely walk or bend afterwards. She reports no previous back injuries or pain before. She reports no sharp shooting pains down either leg, no numbnessno tingling, no bowel or bladder dysfunction. The pain is all localized in her lumbar spine. She states she does not feel like this radiates to the left of the right it is all localized in the middle. She states it is extremely difficult for her to sit stand walk bend, she has to reposition frequentlybecause she is not able to tolerate any position for longer than 10 to 20 minutes. For pain control she has been using Tylenol baclofen lidocaine ointment and naproxen however this is not taking the edge off of her pain. She did report to the Urgent Care after her injury, they gave her Vicodin in the ER and this did help to bring her pain level down to a 4/10. Her current pain level as an 8/10 constant this is increased with activity. Sleep is interrupted because of pain.She walks bend forward, she sits bend forward. She is unable to straighten her spine. MEDICATIONS acetaminophen 500 mg oral tablet, 1,000 mg, 2 tab(s), PO, 3xDay, PRN, 1 refills baclofen 10 mg oral tablet, 10 mg, PO, 3xDay, 1 refills GoLYTELY oral powder for reconstitution, 240 mL, PO, q10min, 0 refills lidocaine 5% topical ointment, 1 gordy, Topical, 3xDay, 1 refills naproxen 250 mg oral tablet, 500 mg, 2 tab(s), PO, 2xDay, PRN, 1 refills omeprazole 40 mg oral delayed release capsule, 40 mg, 1 cap(s), PO, Daily, 3 refills Prozac 10 mg oral tablet, 10 mg, 1 tab(s), PO, Daily, 1 refills ALLERGIES NKA PAST MEDICAL HISTORY Chronic Disease Gastroesophageal Reflux (GERD ERMELINDA) Historical No historical problems PROCEDURES/SURGICAL HISTORY Esophagogastroduodenoscopy (08/12/2015), Upper GI endoscopy (08/12/2015), Episiotomy (Week of 10/03/2004), Other Artificial Rupture of Membranes (Week of 10/03/2004), Other Manually Assisted Delivery (Week of 10/03/2004), Repair of Other Current Obstetric Laceration (Week of 10/03/2004), Cytopathology, slides, cervical or vaginal (the [facility] System); manual screening under physician supervision.. (Week of 03/10/2004). SOCIAL HISTORY Date Time: 11/26/2015 16:11 Tobacco: Smoking Status: Current every day smoker Exposure: Patient smokes, Other: occ alcohol Alcohol: Use: Yes Recreational Drugs: Use: None Type: No Results Found VITAL SIGNS T: 36.2 ??C (Core) HR: 98 RR: 18 BP: 125 / 72 HT: 166 cm WT: 108.5 kg BMI: 39.37 PHYSICAL EXAMINATION CONSTITUTIONAL: Well-nourished well-hydrated female in moderate amount of distress because of pain she is having. She is alert oriented times 3. MUSCULOSKELETAL: She ambulates to the exam room in a bent over posture. She is also seated in a bent over posture when entering the exam room. 05/05 strength in both lower extremities. Significant pain on palpation through the lumbar spine, she is tender through bilateral paraspinal musculatures in bilateral SI joints. Straight leg raise is negative for radicular features but positive for pain. Thierno's test is not cause any radicular features however does exacerbate pain in her tail bone. IMPRESSION/REPORT/PLAN 1. Pain Low Back (LBP) We will obtain x-rays for further evaluation. Prior authorization has been requested for an MRI. For pain control we will add Hydrocodone, 1 tablet for pain 1 to 5, 2 tablets for pain6-10 on a scale of 1 to 10. Light duty work restrictions were written. Follow up with occupational medicine and 1 week. Patient was agreeable with this plan. Ordered: HYDROcodone-acetaminophen, 1-2 tablets, PO, q6hr, PRN Pain, for pain on a scale 1-10 1-5 take 1 tablet 6-10 take 2 tablets, x 14 day(s), # 112 each, 0 Refill(s), Acute OV Est Pt Level 4 - 60421 - 25 min Orders: MR Lumbar Spine w/o contrast XR Lumbar Spine 2 or 3 views Electronically Signed By: LOLI PARK CNP On: 11/26/2015 05:09 PM Source: [facility] POWERCHART Document Id: [id number] documented in this encounter Miscellaneous Notes Miscellaneous - Loli Park C.N.P., R.N. - 11/26/2015 4:57 PM CDT Addendum by MALLORY MENESES on December 16, 2015 07:53:20 CDT Letter mailed today requesting patient to contact us for PT appt. Addendum by MALLORY MENESES on December 12, 2015 09:21:12 CDT Tried contacting again today to schedule PT, phone rings a couple times and then goes to fast busy signal. Unable to leave a message. Addendum by LOLI PARK CNP on December 10, 2015 14:58:54 CDT noted Addendum by MEGAN NAIR LPN on December 10, 2015 14:52:49 CDT From: MEGAN NAIR LPN ( [facility]) To: LOLI PARK CNP; Sent: 12/10/2015 14:52:49 CDT Subject: FW: YADIRA work comp Addendum by JEANCARLOS HINKLE RN on December 10, 2015 13:28:10 CDT From: JEANCARLOS HINKLE RN ([facility] Cvt Rn/Work Comp) To: YADIRA Lower Level Specialty Disability Services Coordinator; KINGSTON ROJAS; Cc: YADIRA Occupational Medicine [facility]; [facility] Cvt Rn/Work Comp; Sent: 12/10/2015 13:28:10 CDT Subject: FW: YADIRA work comp Rec'd fax with DENIAL for MRI, lumbar spine. It has been found not medically necessary d/t no radicular findings on exam and no trial of conservative care, per Claudine Christy/RTW. cl# [id number]. if patient wants to pursue MRI she will need to place it under her personal ins. Addendum by TRELL GARRETT on December 10, 2015 10:07:06 CDT noted and tried calling patient but phone rings many times and then cuts off to a busy signal. put these notes in the request queue. Addendum by LILY HOOKER on December 09, 2015 11:26:21 CDT Noted, moved referral to Auth Complete queue. Addendum by JEANCARLOS HINKLE RN on December 09, 2015 08:31:19 CDT From: JEANCARLOS HINKLE RN ([facility] Cvt Rn/Work Comp) To: LILY HOOKER; Sent: 12/09/2015 08:31:19 CDT Subject: FW: AU work comp Addendum by JEANCARLOS HINKLE RN on December 09, 2015 08:27:59 CDT From: JEANCARLOS HINKLE RN ([facility] Cvt Rn/Work Comp) To: YADIRA Occupational Medicine [place] Nurse; [facility] Cvt Rn/Work Comp; Cc: YADIRA Lower Level Specialty Disability Services Coordinator; Sent: 12/09/2015 08:27:59 CDT Subject: RE: YADIRA work comp Rec'd fax with auth for a total of 6 PT visits for the lumbar spine. Schedule patient. Addendum by LOLI PARK CNP on November 28, 2015 14:34:42 CDT noted Addendum by MEGAN NAIR LPN on November 28, 2015 14:19:57 CDT From: MEGAN NAIR LPN ( Occupational Medicine [place] Nurse) To: LOLI PARK CNP; Sent: 11/28/2015 14:19:57 CDT Subject: FW: AU work comp Addendum by JEANCARLOS HINKLE RN on November 28, 2015 12:38:18 CDT From: JEANCARLOS HINKLE RN ([facility] Cvt Rn/Work Comp) To: YADIRA Occupational Medicine [place] Nurse; [facility] Cvt Rn/Work Comp; Cc: KINGSTON ROJAS; Lower Level Specialty Disability Services Coordinator; Sent: 11/28/2015 12:38:18 CDT Subject: RE: work comp adjustor is Prashant Unger p# [phone] nurse is Sophia Lopez p# [phone] Addendum by MEGAN NAIR LPN on November 28, 2015 11:33:58 CDT notified Addendum by JEANCARLOS HINKLE RN on November 28, 2015 08:21:53 CDT From: JEANCARLOS HINKLE RN ([facility] Cvt Rn/Work Comp) To: YADIRA Occupational Medicine [place] Nurse; Cc: [facility] Cvt Rn/Work Comp; KINGSTON ROJAS; Lower Level Specialty Disability Services Coordinator; Sent: 11/28/2015 08:21:53 CDT Subject: work comp Faxed request for 1) MRI, L-spine and 2) PT eval & treat---12 sessions Comp Use Only Date of injury:_ 11/24/15 emp: [facility] Body Part:_ low back Insurance Company:_ [employer] Claim #_ [id number] Skein Bander.Isak Chu Phone:_ [phone] Fax:_ [phone] Pending:_ XX Approved: _ Denied:_ Date: _ By Whom:_ Patient notified of appointment:_ Addendum by MEGAN NAIR LPN on November 27, 2015 14:29:23 CDT From: MEGAN NAIR LPN ( [facility]) To: [facility] Cvt Rn/Work Comp; Sent: 11/27/2015 14:29:23 CDT Subject: wc PA Addendum by MEGAN NAIR LPN on November 27, 2015 14:29:10 CDT Workers Compensation Referral Referred from: Occupatioanl med Requesting Provider: Deanna Garcia Requesting Department/Facility: _MRI Date of Injury: _11/24/15 Body part Injured: _lower back Employer on date of claimed injury: _[employer] Surgery/Procedure/Test/Specialty Referring for: _MRI Diagnosis/Reason: _Back pain MRI Requested: Yes _x/No_ Patient Claustrophobic? _unknown Patient Diabetic? _n Patient ? _n From: LOLI PARK CNP To: [facility]; Sent: 11/26/2015 16:57:36 CDT please request PA for lumbar MRI, Source: [facility] POWERCHART Document Id: [id number] Miscellaneous - Megan Niar, L.P.N. - 11/26/2015 4:11 PM CDT Adult Suspender Maker Intake/History Adult Suspender Maker Intake/History Entered On: 11/26/2015 16:14 CDT Performed On: 11/26/2015 16:11 CDT by MEGAN NAIR LPN Intake Chief Complaint : wc fu femi md doi 11/24/15 lower back Temperature Core : 36.2 DegC(Converted to: 97.2 DegF) (LOW) Peripheral Pulse Rate : 98 /min Respiratory Rate : 18 /min Systolic Blood Pressure : 125 mmHg Diastolic Blood Pressure : 72 mmHg NIBP Mean : 90 mmHg BP Location : Left upper extremity Blood Pressure Cuff Size : Large Height : 166 cm(Converted to: 5 ft 5 inch(es), 65 inch(es)) Actual Weight : 108.5 kg(Converted to: 239 lb 3 oz) Weight Source : Standing scale Dosing Weight Clinic : 108.5 kg Clinic BSA : 2.24 Body Mass Index : 39.37 kg/m2 MEGAN NAIR LPN - 11/26/2015 16:11 CDT General Info Information Given By : Patient Languages : Tamazight Is Patient Female and 13-50 no hysterectomy : No MEGAN NAIR LPN - 11/26/2015 16:11 CDT Subjective Pain Symptoms : Yes MEGAN NAIR LPN - 11/26/2015 16:11 CDT Pain Scale Pain Scale Verbal 0-10 : Open MEGAN NAIR LPN - 11/26/2015 16:11 CDT Pain Pain Assessment Grid Pain 1 Location : Lower back Intensity : 8 MEGAN NAIR LPN - 11/26/2015 16:11 CDT Dependent Habits Exposure to Tobacco Smoke : Patient smokes, Other: occ alcohol Smoking Status : Current every day smoker Tobacco 2A : Yes Tobacco Use/Currently Using : Yes Tobacco Use/Last 30 Days : Yes Tobacco Use/Last 12 months : Yes Type : Cigarettes: Less than 20 per day Tobacco Use/Advised to Quit : No Alcohol Use : Yes MEGAN NAIR LPN - 11/26/2015 16:11 CDT Caffeine Use Grid Caffeine Use : None MEGAN NAIR LPN - 11/26/2015 16:11 CDT Recreational Drug Use Grid Drug Use : None MEGAN NAIR LPN - 11/26/2015 16:11 CDT Source: [facility] [employer] Document Id: [id number] CDT!46 documented in this encounter Plan of Treatment Not on filedocumented as of this encounter Visit Diagnoses Not on filedocumented in this encounter
--- OUTSIDE RECORDS SUMMARY | 2022-02-03 23:57 | XMS_ITS | Encounter Summary ---
:1985 Author Organization [facility] Address [address] [place] [address] Care Team Providers Name Role Phone Unavailable Primary Care Provider Unavailable Encounter Details Date Type Department Care Team Description 12/03/2015 Hospital Encounter HX [facility] OCCUP MED [place], ERICKA, C.N.P. [address] [place] [address] (Wo rk) Social History Tobacco Use Types Packs/Day Years Used Date Smoking Tobacco: Never Assessed Sex Assigned at Date Recorded Not on file documented as of this encounter Last Filed Vital Signs Vital Sign Reading Time Taken Comments Blood Pressure 127/67 12/03/2015 4:31 PM CDT Pulse 90 12/03/2015 4:31 PM CDT Temperature - - Respiratory Rate - - Oxygen Saturation - - Inhaled Oxygen Concentration - - Weight 108 kg (238 lb 1.6 oz) 12/03/2015 4:31 PM CDT Height 166 cm (5' 5.35) 12/03/2015 4:31 PM CDT Body Mass Index 39.19 12/03/2015 4:31 PM CDT documented in this encounter Progress Notes [place], C.N.P., R.N. - 12/03/2015 5:06 PM CDT Clinic Full Note CHIEF COMPLAINT/REASON FOR VISIT Note was created in error Electronically Signed By: LOLI PARK CNP On: 12/04/2015 07:44 AM Source: [facility] POWERCHART Document Id: [id number] Loli Park C.N.P., R.N. - 12/03/2015 4:12 PM CDT [id number] REVISION HISTORY December 05, 2015. 9:17 a.m. - Modification to the date of service. CHIEF COMPLAINT/REASON FOR VISIT [facility] DOI 0724/16 HISTORY OF PRESENT ILLNESS Patient states her pain is improved today. She would rate her pain a 2 - 4/10 depending on activity. Bending forward and kneeling increase her pain in her low back. She reports no radicular features down eitherle. No saddle anesthesia, no bowel or bladder incontinence. She is not using her Vicodin anymore. She is managed for pain with Tylenol ice and heat. She also uses lidocaine cream as well. Overall she states she is improving nicely she is very pleased with her progress. She has been compliant with work restrictions. She is no longer using her walker. She is able to walk independently. She is sleepingbetter, she is not being interrupted as much because of pain. She would rate her improvement at 70% back to baseline. Her baseline is 100% without any obvious pain or discomfort. MEDICATIONS acetaminophen 500 mg oral tablet, 1,000 mg, 2 tab(s), PO, 3xDay, PRN, 1 refills baclofen 10 mg oral tablet, 10 mg, PO, 3xDay, 1 refills GoLYTELY oral powder for reconstitution, 240 mL, PO, q10min, 0 refills Hydrocodone-acetaminophen 5 mg-325 mg oral tablet, 1-2 tablets, for pain on a scale 1-101-5 take 1 tablet6-10 take 2 tablets, PO, q6hr, PRN, 0 refills lidocaine 5% topical ointment, 1 [...] Reflux (GERD ERMELINDA) Historical No historical problems SOCIAL HISTORY Date Time: 12/03/2015 16:31 Tobacco: Smoking Status: Current every day smoker Exposure: Patient smokes, Other: occ alcohol Alcohol: Use: YesRecreational Drugs: Use: None Type: No Results Found FAMILY HISTORY No qualifying data available. VITAL SIGNS T: 36.3 ??C (Core) HR: 90 BP: 127 / 67 HT: 166 cm WT: 108 kg BMI: 39.19 pain 2-08/10 PHYSICAL EXAMINATION CONSTITUTIONAL: Well-nourished well-hydrated female in no acute distress alert and oriented times 3 MUSCULOSKELETAL: Gait is slightly antalgic still. Tender to palpation through lower paraspinal musculature bilateral sides. Forward flexion does cause pain however she does have full functional range of motion. Lateral bend is pain-free. Leg strength is 05/05 bilaterally. Reflexes are intact. Straight leg raise is negative. No calf pain or tenderness, normal light touch sensation throughout both lower extremities. IMPRESSION/REPORT/PLAN 1. Sprain Low Back Subsequent We will continue light duty restrictions, we did advance these to allow for more activities since she is feeling better. Continue to manage pain with ice heat and Tylenol and lidocaine topical ointment. Physical therapy hasbeen ordered, recommended some light stretching three to five times a day, stretching exercises werereviewed with patient. Father occupational medicine in 2 weeks or sooner if needed. Orders: lidocaine topical, 1 gordy, Topical, 3xDay, x 14 day(s), # 50 gm, 1 Refill(s), Acute, Pharmacy: [facility] Physical Therapy Referral Consult and Treat Signature Line Electronically Signed By: LOLI PARK CNP On: 12/04/2015 07:38 AM Tanya GoodmanNJaclyn/nadira Electronically Signed By: LOLI PARK CNP On: 12/05/2015 09:48 AM Source: [facility] MHSDOLBEYNONRADSYS Document Id: [id number] documented in this encounter Miscellaneous Notes Miscellaneous - Loli [place], C.N.P., R.N. - 12/03/2015 4:44 PM CDT Addendum by MEGAN NAIR LPN on December 05, 2015 08:56:14 CDT noted Addendum by TD STANLEY on December 05, 2015 08:35:06 CDT From: TD STANLEY ([facility] Specialty Manufacturing Supervisor/Work Comp) To: Lower Level Specialty Visual Associate; Occupational Medicine [place] Nurse; LILY HOOKER; [facility] Specialty Manufacturing Supervisor/Work Comp; Sent: 12/05/2015 08:35:06 CDT Subject: work comp Faxed in request for referral to physical therapy, evaluate and treat. Work Comp Use Only Date of injury:_ 11/24/2015 Emp: _ [facility] Body Part:_back Insurance Company:_ [employer] Claim #_[id number] [address] Sql Developer.Isak Chow Phone:_ [phone] Fax:_ [phone] Pending:_ xx Approved: _ Denied:_ From: LOLI PARK ONLINE BANKING SPECIALIST To: [facility] Specialty Manufacturing Supervisor/Work Comp; Sent: 12/03/2015 16:44:53 CDT Has PT been approved yet? Source: [facility] POWERCHART Document Id: [id number] Electronically signed by [facility] Catering Convention Services Manager [id number] at 09/27/2016 3:00 AM CDT Miscellaneous - Megan Nair, L.P.N. - 12/03/2015 4:31 PM CDT Adult Compensation And Benefits Administrator Intake/History Adult Compensation And Benefits Administrator Intake/History Entered On: 12/03/2015 16:33 CDT Performed On: 12/03/2015 16:31 CDT by MEGAN NAIR LPN Intake Chief Complaint : WC FU [employer] [place] DOI Temperature Core : 36.3 DegC(Converted to: 97.3 DegF) (LOW) Peripheral Pulse Rate : 90 /min Systolic Blood Pressure : 127 mmHg Diastolic Blood Pressure : 67 mmHg NIBP Mean : 87 mmHg BP Location : Left upper extremity Blood Pressure Cuff Size : Large Height : 166 cm(Converted to: 5 ft 5 inch(es), 65 inch(es)) Actual Weight : 108 kg(Converted to: 238 lb 2 oz) Weight Source : Standing scale Dosing Weight Clinic : 108 kg Clinic BSA : 2.23 Body Mass Index : 39.19 kg/m2 MEGAN NAIR LPN - 12/03/2015 16:31 CDT General Info Information Given By : Patient Languages : Ukrainian Is Patient Female and 13-50 no hysterectomy : No MEGAN NAIR LPN - 12/03/2015 16:31 CDT Subjective Pain Symptoms : Yes MEGAN NAIR LPN - 12/03/2015 16:31 CDT Pain Scale Pain Scale Verbal 0-10 : Open MEGAN NAIR LPN - 12/03/2015 16:31 CDT Pain Pain Assessment Grid Pain 1 Location : Lower back Intensity : 2 MEGAN NAIR LPN - 12/03/2015 16:31 CDT Dependent Habits Exposure to Tobacco Smoke : Patient smokes, Other: occ alcohol Smoking Status : Current every day smoker Tobacco 2A : Yes Tobacco Use/Currently Using : Yes Tobacco Use/Last 30 Days : Yes Tobacco Use/Last 12 months : Yes Type : Cigarettes: Less than 20 per day Tobacco Use/Advised to Quit : Yes Alcohol Use : Yes MEGAN NAIR LPN - 12/03/2015 16:31 CDT Caffeine Use Grid Caffeine Use : None MEGAN NAIR LPN - 12/03/2015 16:31 CDT Recreational Drug Use Grid Drug Use : None MEGAN NAIR LPN - 12/03/2015 16:31 CDT [facility] Document Id: [id number] CDT!45 documented in this encounter Plan of Treatment Not on filedocumented as of this encounter Visit Diagnoses Not on filedocumented in this encounter
--- OUTSIDE RECORDS SUMMARY | 2022-02-03 23:57 | XMS_ITS | Encounter Summary ---
:1985 Author Organization [facility] Address [address] [place] [id number] Care Team Providers Name Role Phone Unavailable Primary Care Provider Unavailable Encounter Details Date Type Department Care Team Description 04/06/2015 - Hospital Encounter HX [facility] ED Juan Carlos Mckeon, 04/07/2015 [place] [address] Social History Tobacco Use Types Packs/Day Years Used Date Smoking Tobacco: Never Assessed Sex Assigned at Date Recorded Not on file documented as of this encounter Last Filed Vital Signs Vital Sign Reading Time Taken Comments Blood Pressure 119/68 04/07/2015 1:37 AM INVESTIGATOR INTERNAL REVENUE Pulse 98 04/06/2015 11:26 PM INVESTIGATOR INTERNAL REVENUE Temperature - - Respiratory Rate 18 04/07/2015 1:37 AM INVESTIGATOR INTERNAL REVENUE Oxygen Saturation - - Inhaled Oxygen Concentration - - Weight - - Height - - Body Mass Index - - documented in this encounter Discharge Summaries Del Farfan, R.N. - 04/07/2015 2:22 AM CST ED Discharge Instructions [place] [id number] Name: SILVIA STEELE Date of : 1985 12:00 AM Visit Date: 04/06/2015 11:15 PM [facility] Number: [id number] Address: [address] [place] [address] Primary Care Provider: SOFIE VÁZQUEZ MD IMPORTANT: [facility] in [place] would like to thank you for allowing us to assist youwith your healthcare needs. The following includes patient education materials and information regarding your injury/illness. Diagnosis: Follow-Up Instructions: With: Address: When: Return to Emergency Department Within As Needed With: Address: When: SOFIE VÁZQUEZ [address] [place] [phone] Business (1) Within As Needed Your Upcoming Appointments: Date Time Location Provider No Appointments found Patient Education Materials: Viral Gastroenteritis (6Yr-Adult) Gastroenteritis is another name for the stomach flu. It is most often caused by a virus that affectsthe stomach and intestinal tract. Symptoms include stomach cramping and fever, vomiting and/or diarrhea, and can last from 2 to 7 days. The danger from repeated vomiting or diarrhea is dehydration. This is the loss of too much water andminerals from the body. When this occurs, body fluids must be replaced. Antibiotics are not effective for this illness, but simple home treatment will be helpful. Home Care ?? If symptoms are severe, rest at home for the next 24 hours. ?? Avoid tobacco, caffeine, and alcohol use, which can worsen symptoms. ?? Acetaminophen (Tylenol) or ibuprofen (Motrin, Advil) may be used for fever or pain unless anothermedication was prescribed. NOTE: If you have chronic liver or kidney disease or ever had a stomach ulcer or GI bleeding, talk with your doctor before using these medicines. Aspirin should never be usedin anyone under 18 years of age who is ill with a fever. It may cause severe liver damage. ?? If medicines for diarrhea or vomiting were prescribed, be sure they are taken only as directed. ?? If vomiting, drink small amounts of clear fluids (such as water, sports drinks, clear sodas) at frequent intervals to prevent dehydration. Start with 1 to 2 tablespoons every 10 minutes. Once vomiting stops, follow these guidelines: During The First 12 To 24 Hours follow the diet below: ?? Beverages: Sport drinks like Gatorade, soft drinks without caffeine; rand howard, mineral water (plain or flavored), decaffeinated tea and coffee. ?? Soups: Clear broth, consomm? and bouillon ?? Desserts: Plain gelatin (Jell-O), Popsicles and fruit juice bars. During The Next 24 Hours you may add the following to the above: ?? Hot cereal, plain toast, bread, rolls, crackers ?? Plain noodles, rice, mashed potatoes, chicken noodle or rice soup ?? Unsweetened canned fruit (avoid pineapple), bananas ?? Limit fat intake to less than 15 grams per day by avoiding margarine, butter, oils, mayonnaise, sauces, gravies, fried foods, peanut butter, meat, poultry, and fish. ?? Limit fiber; avoid raw or cooked vegetables, fresh fruits (except bananas), and bran cereals. ?? Limit caffeine and chocolate. Do not use spices or seasonings except salt. During The Next 24 Hours The patient can gradually resume a normal diet as symptoms lessen. Preventing Spread ?? Hand washing with soap and water is the best way to prevent the spread of viruses. Caregivers should wash their hands before and after touching the sick person. ?? The sick person, as well as everyone in the family, should wash their hands after using the toilet and before meals. ?? Clean the toilet after each use. ?? People with diarrhea should not prepare food for others. If you are preparing your own foods, wash your hands before and after. Follow Up with your doctor as advised. Call your doctor if you are not improving over the next 2 to 3 days. Ifa stool (diarrhea) sample was taken, you may call in 2 days (or as directed) for the results. Get Prompt Medical Attention if any of the following occur: ?? Increasing abdominal pain ?? Continued vomiting (unable to keep liquids down) ?? Frequent diarrhea (more than 5 times a day) ?? Blood in vomit or stool (black or red color) ?? Dark urine, reduced urine output, or extreme thirst ?? Weakness, dizziness, fainting ?? Drowsiness, confusion, stiff neck, or seizure ?? Fever of 100.4?F (38?C) oral or higher, not better with fever medication ?? New rash ?? [id number] Lennie Swain, [address] [place] [address], [place] [address]. All rights reserved. This information is not [...] if you dont have one. Go to [email or web address] and click on Create Your Account. Then, follow the directions to complete the online form. Youll be asked for your [facility] number which you can find at the top of this document. ED Tests and Procedures: Order Status Urinalysis with Culture if Indicated Completed Discharge Prescriptions & Home Medications: Medication/Strength Dose Route Frequency Indications/Special Instructions/Comments/Notes ondansetron (ondansetron 4 mg oral tablet, disintegrating) 4 mg Oral every 6 hours as needed for Nausea/vomiting PXYIS DISCHARGE PACK [facility] Prescription (work excuse) See Instructions please excuse from work until 04/07 ondansetron (Zofran 4 mg oral tablet) 4 mg Oral every 4 hours lidocaine topical (Lidoderm 5% topical film) 1 patch(es) Topical once a day Apply to intact skin andremove patch after a maximum of 12 hr of application within a 24 hr period [facility] Prescription (School excuse) See Instructions Please excuse [...] a ride home with a responsible republican. CEDRIC Ward KRISTINA LYNN , or responsible republican [...] a ride home with a responsible republican. CEDRIC Ward KRISTINA LYNN , or responsible republican have received this information and my questions have been answered. I have discussed any challenges I see with this plan with the nurse or physician. Patient Signature or Responsible Alliance Party/Relationship Date Time Provider Signature Date Time This document has images extracted. Please consider using [employer] for all your patient education needs. Source: [facility] POWERCHART Document Id: [id number] STIGATOR INTERNAL REVENUE Del Farfan, R.N. - 04/07/2015 2:22 AM CST ED Depart Summary [facility] Emergency Department / Urgent Care Clinical Discharge Summary PERSON INFORMATION Name SILVIA STEELE Age 29 Years 1985 12:00 AM Sex Female Language Sammarinese PCP SOFIE VÁZQUEZ MD Marital Status Single Visit Id Visit Reason Vomiting; vomitting Specialty Enc Type Emergency Med Service Emergency Medicine Referred by Track Group [facility] ED/UC Discharge 04/07/2015 1:50 AM Tracking Id [id number] Checkout 04/07/2015 1:50 AM Checkin 04/06/2015 11:15 PM Acuity 3 -Urgent Dispo Type * Discharged to Home or Self Care Arrival 04/06/2015 11:15 PM Reg Status Complete LOS 000 02:35 Address: [address] [place] [id number] Comment: PROVIDER INFORMATION Provider Role Provider Contact Time JUAN CARLOS MCKEON MD ED Provider 04/06/15 23:17 JUAN CARLOS MCKEON MD ED Provider 04/06/15 23:29 DEL FARFAN RESTAURANT LINE SERVER Nurse 04/07/15 00:01 DIAGNOSIS Comment: PATIENT EDUCATION INFORMATION Instructions: GASTROENTERITIS, Viral [6y-Adult] Follow up: With: Address: When: Return to Emergency Department Within As Needed With: Address: When: SOFIE VÁZQUEZ [address] [place] [address] [phone] Business (1) Within As Needed [email or web address] Document Id: [id number] STIGATOR INTERNAL REVENUE documented in this encounter ED Notes Del Farfan RJonathan. - 04/07/2015 2:20 AM CST ED Treatments and Procedures ED Treatments and Procedures Entered On: 04/07/2015 2:20 INVESTIGATOR [employer]NAL REVENUE Performed On: 04/07/2015 2:20 INVESTIGATOR [employer]NAL REVENUE by DEL FARFAN RN Peripheral IV Peripheral IV Assess/Intervention Grid Peripheral IV #1 IV Activity : Discontinue Removal : Catheter intact, Hemostasis within expected timeframe Number of Attempts : 1 Date of Insertion : 04/07/2015 INVESTIGATOR INTERNAL REVENUE Discontinued Date : 04/07/2015 INVESTIGATOR INTERNAL REVENUE IV Site : Antecubital Laterality : Left Catheter Size : 20 Catheter Type : Over the needle DEL FARFAN RN - 04/07/2015 2:20 INVESTIGATOR INTERNAL REVENUE Source: [employer] Document Id: [id number] INVESTIGATOR INTERNAL REVENUE!13 STIGATOR INTERNAL REVENUE Del Farfan, R.N. - 04/07/2015 2:20 AM CST ED Disposition Summary ED Disposition Summary Entered On: 04/07/2015 2:20 INVESTIGATOR INTERNAL REVENUE Performed On: 04/07/2015 2:20 INVESTIGATOR [employer]NAL REVENUE by DEL FARFAN [employer]ER Disposition Summary Accompanied By : Alone Mode of Discharge : Ambulatory Transportation : Private vehicle Discharge From ED With : Home Med List Printed Discharge Instructions Given to Patient : Yes Patient Status at Discharge from ED : Improved DEL FARFAN RN - 04/07/2015 2:20 INVESTIGATOR [employer]NAL REVENUE Source: [employer] Document Id: [id number] INVESTIGATOR INTERNAL REVENUE!8 STIGATOR INTERNAL REVENUE Del Farfan REmekaN. - 04/07/2015 2:20 AM CST ED Pain Assessment ED Pain Assessment Entered On: 04/07/2015 2:20 INVESTIGATOR INTERNAL REVENUE Performed On: 04/07/2015 2:20 INVESTIGATOR [employer]NAL REVENUE by DEL FARFAN RN Pain Assessment Pain Symptoms : No DEL FARFAN RN - 04/07/2015 2:20 INVESTIGATOR INTERNAL REVENUE Source: [facility] POWERCHART Document Id: [id number] INVESTIGATOR INTERNAL REVENUE!3 STIGATOR INTERNAL REVENUE Del Farfan R.N. - 04/07/2015 12:11 AM CST ED Primary Assessment Document Has Been Updated ED Primary Assessment Entered On: 04/07/2015 0:20 INVESTIGATOR INTERNAL REVENUE Performed On: 04/07/2015 0:11 INVESTIGATOR [employer]NAL REVENUE by DEL FARFAN RN Reason For Visit (As Of: 04/07/2015 00:20:17 INVESTIGATOR INTERNAL REVENUE) Problems(Active) No Chronic Problems (Cerner :NKP ) Name of Problem: No Chronic Problems ; Recorder: NATY XIE MD; Confirmation: Confirmed ; Classification: Medical ; Code: NKP ; Last Updated: 05/15/2013 16:30 INVESTIGATOR INTERNAL REVENUE; Life Cycle Date: 05/15/2013 ; Life Cycle Status: Active ; Vocabulary: Cerner Diagnoses(Active) Vomiting Date: 04/06/2015 ; Diagnosis Type: Reason For Visit ; Confirmation: Confirmed ; Clinical Dx: Vomiting ; Classification: Medical ; Clinical Service: Emergency medicine ; Code: PNED ; Probability: 0 ; Diagnosis Code: [id number] Triage Chief Complaint Description : 29 y/o female presents to ED d/t complaints of N/V Patient notes unable to any fluids or food down. Information Given By : Patient Accompanied By : Alone Mode of Arrival ED : Private vehicle Track : Medical Languages : Sammarinese Treatments Prior to Arrival : None Are you ? : No Is Patient Female and 13-50 no hysterectomy : Yes Status : Patient denies DEL FARFAN RN - 04/07/2015 0:11 INVESTIGATOR [employer]NAL REVENUE Pain Assessment Pain Symptoms : No DEL FARFAN RN - 04/07/2015 0:11 INVESTIGATOR INTERNAL REVENUE DENNY DCP GENERIC CODE Tracking Acuity : 3 -Urgent Tracking Group : [facility] ED/ DEL FARFAN RN - 04/07/2015 0:11 INVESTIGATOR [employer]NAL REVENUE Respiratory Airway : Patent Respirations : Unlabored Respiratory Pattern : Regular Oxygen Therapy : Room air DEL FARFAN RN - 04/07/2015 0:11 INVESTIGATOR INTERNAL REVENUE Cardiovascular Heart Rhythm : Regular Skin Color : Normal for ethnicity Skin Description : Dry Skin Temperature : Warm DEL FARFAN RN - 04/07/2015 0:11 INVESTIGATOR INTERNAL REVENUE Neurological Last Well Time Known : Not applicable Level of Consciousness : Alert Orientation : Oriented x 3 Characteristics of Speech : Appropriate for age Neuro Patient Stated Symptoms : None Gait : Steady DEL FARFAN RN - 04/07/2015 0:11 INVESTIGATOR INTERNAL REVENUE ED Psychosocial Affect/Behavior : Calm, Cooperative, Appropriate Domestic Abuse Concerns : None Behavioral Health Screen/Safety Assmt : No Emotional Support Available : No DEL FARFAN RN - 04/07/2015 0:11 INVESTIGATOR INTERNAL REVENUE Gastrointestinal Nutrition ED : Adequate DEL FARFAN RN - 04/07/2015 0:11 INVESTIGATOR INTERNAL REVENUE Musculoskeletal Fall Prevention Education Provided : NA Activity Lázaro : Walks frequently DEL FARFAN RN - 04/07/2015 0:11 INVESTIGATOR [employer]NAL REVENUE Social Habits Exposure to Tobacco Smoke : Patient smokes, Other: occ alcohol Smoking Status : Current every day smoker Tobacco 2A : Yes Tobacco Use/Currently Using : Yes Tobacco Use/Last 30 Days : Yes Tobacco Use/Last 12 months : Yes DEL FARFAN RN - 04/07/2015 0:11 INVESTIGATOR [employer]NAL REVENUE Peripheral IV Peripheral IV Assess/Intervention Grid Peripheral IV #1 IV Activity : Start Number of Attempts : 1 Date of Insertion : 04/07/2015 INVESTIGATOR INTERNAL REVENUE IV Site : Antecubital Laterality : Left Catheter Size : 20 Catheter Type : Over the needle Site Condition : No complications Comments (Comment: Patient tollerated well. [DEL FARFAN RN - 04/07/2015 0:11 INVESTIGATOR INTERNAL REVENUE] ) DEL FARFAN RN - 04/07/2015 0:11 INVESTIGATOR INTERNAL REVENUE Source: [facility] POWERCHART Document Id: [id number] INVESTIGATOR INTERNAL REVENUE!63 STIGATOR INTERNAL REVENUE Juan Carlos Mckeon M.D. - 04/06/2015 11:44 PM CST Vomiting Patient: SILVIA STEELE Age: 29 years Sex: Female : 1985 Author: JUAN CARLOS MCKENO MD Attachments: None Basic Information Time seen: Immediately upon arrival. History source: Patient. Arrival mode: Private vehicle. History limitation: None. History of Present Illness The patient presents with 29 yr old female without significant PMH. She arrives to the ED today for evaluation of N/V/D x 24 hours. She states she has had 10+ episodes of non bilious emesis. It has been associated with mild epigastric discomfort. No high fever, shaking chills, rash, abd distention. Norash or trauma. She denies , hematuria, or dysuruia. She reports 3 of her children and her significant other have the same symptoms. . Review of Systems Constitutional symptoms: No fever or no chills. Skin symptoms: No rash or no pruritus. ENMT symptoms: Sore throat. Gastrointestinal symptoms: Nausea, vomiting and diarrhea, but no abdominal pain, no constipation or no rectal bleeding. Genitourinary symptoms: No dysuria, no hematuria, no vaginal bleeding or no vaginal discharge. Musculoskeletal symptoms: No back pain. Neurologic symptoms: No headache. Additional review of systems information: All other [...] PowerChart. Cytopathology, slides, cervical or vaginal (the [place] System); manual screening under physician supervision.. ([id number]) in the week of 03/10/2004 at 18 Years. Comments: 04/18/2010 21:45 - GLOCARMEN EPSTEIN Hx: [id number] - LAB-CYTOPATH, SM,D/V,TDS<3SM TECH 03/21/2013 17:41 - Contributor source changed to PowerChart.. Social history: Reviewed as documented in chart. Physical Examination Vital Signs: Vital Signs 04/06/2015 23:39 INVESTIGATOR INTERNAL REVENUE Heart Rate Monitored 116 /min HI Pulse SpO2 110 /min Respiratory Rate 21 /min HI SpO2 94 % Blood Pressure Location Right upper 04/06/2015 23:26 INVESTIGATOR INTERNAL REVENUE Temperature Core 36.6 DegC Peripheral Pulse Rate 98 /min Respiratory Rate 22 /min HI SpO2 95 % Systolic Blood Pressure 100 mmHg Diastolic Blood Pressure 78 mmHg , SpO2 04/06/2015 23:39 INVESTIGATOR INTERNAL REVENUE SpO2 94 % 04/06/2015 23:26 INVESTIGATOR INTERNAL REVENUE SpO2 95 % . General: Alert and mild distress. Skin: Warm, dry, intact and no rash. Head: Normocephalic and atraumatic. Ears, nose, mouth and throat: Mouth: Dry mucous membranes. Cardiovascular: Normal peripheral perfusion, No edema and Tachycardia. Respiratory: Lungs are clear to auscultation, respirations are non-labored and breath sounds are equal. Gastrointestinal: Soft, Nontender, Non distended and Normal bowel sounds. Musculoskeletal: No swelling Neurological: Alert and oriented to person, place, time, and situation and No focal neurological deficit observed. Psychiatric: Cooperative. Medical Decision Making Differential Diagnosis:Nausea, vomiting, abdominal pain, gastroenteritis, diarrhea, food toxicity, gastritis. Documents reviewed:Prior records. vehicle monitor technician:Sinus Tachycardia. Results review:Lab results : Lab View 04/06/2015 23:30 INVESTIGATOR INTERNAL REVENUE UA Color Yellow UA Clarity Clear UA Spec Grav >=1.030 UA pH 5.5 UA Protein Trace mg/dL UA Glucose Negative mg/dL UA Ketones Negative mg/dL UA Bili Moderate UA Urobilinogen 0.2 mg/dL UA Blood Small UA Nitrite Negative UA Leuk Est Negative UR WBC Occ-3 /HPF UR RBC Occ-2 /HPF UR Hyaline Cast 1-3 /LPF UR Squamous Epi Cells 4-10 /HPF UR Mucous Present . 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 Based on symptoms, dry oral mucosa, and tachycardia at rest we did offer and administer IVF and Zofran. She has had improvement in symptoms and I believe may return to home with symptomatic control. Prescription and work excuse provided. Diagnosis Gastroenteritis Plan Condition: Improved, Stable. Disposition: Medically cleared, Discharged: to home. Patient was given the following educational materials: GASTROENTERITIS, Viral [6y-Adult], GASTROENTERITIS, Viral [6y-Adult]. Follow up with: SOFIE VÁZQUEZ Within As Needed; Return to Emergency Department Within As Needed. Counseled: Patient, Regarding diagnosis, Regarding diagnostic results, Regarding treatment plan, Regarding prescription, Patient indicated understanding of instructions. Electronically Signed By: JUAN CARLOS MCKEON MD On: 04/07/2015 12:45 AM Modified by and Electronically Signed by: JUAN CARLOS MCKEON MD On: 04/07/2015 12:45 AM Source: [employer] Document Id: [id number]} STIGATOR INTERNAL REVENUE documented in this encounter Miscellaneous Notes Miscellaneous - Del Farfan, R.N. - 04/07/2015 2:21 AM CST Valuables/Belongings Valuables/Belongings Entered On: 04/07/2015 2:21 INVESTIGATOR INTERNAL REVENUE Performed On: 04/07/2015 2:21 INVESTIGATOR INTERNAL REVENUE by DEL FARFAN RN Valuables/Belongings Belongings Sent Home With : Patient DEL FARFAN RN - 04/07/2015 2:21 INVESTIGATOR INTERNAL REVENUE Source: [employer] Document Id: [id number] INVESTIGATOR INTERNAL REVENUE!3 STIGATOR INTERNAL REVENUE Miscellaneous - Del Farfan, R.N. - 04/07/2015 2:19 AM CST Communication Note Communication Note Entered On: 04/07/2015 2:20 INVESTIGATOR INTERNAL REVENUE Performed On: 04/07/2015 2:19 INVESTIGATOR INTERNAL REVENUE by DEL FARFAN RN Communication Assessment Communication Note : Patient states she feels much inproved at discharge, Patient will follow up with her PCP or return to ED if needed. DEL FARFAN RN - 04/07/2015 2:19 INVESTIGATOR INTERNAL REVENUE [email or web address] Document Id: [id number] INVESTIGATOR INTERNAL REVENUE!3 STIGATOR INTERNAL REVENUE Miscellaneous - Conversion, Historical Provider Ser - 04/07/2015 1:50 AM INVESTIGATOR INTERNAL REVENUE Coding Summary-Paper Based CODING DATE: 04/16/2015 FINAL [facility] STATUS: * Discharged to Home or Self Care PAYOR: Medicaid ADMIT DX: R11.2 Nausea with vomiting, unspecified REASON FOR VISIT DX: R11.2 Nausea with vomiting, unspecified FINAL DX: PRINCIPAL: K52.9 Noninfective gastroenteritis and colitis, unspecified SECONDARY: R00.0 Tachycardia, unspecified PROCEDURES DOCTOR NAME DATE NOTE: The code number assigned matches the documented diagnosis and / or procedure in the patient's chart. However, the narrative phrase printed from the coding software may appear abbreviated, or result in slightly different terminology. Coded By: SELMA STEINBERG Date Saved: 04/16/2015 08:00 am Source: [email or web address] Document Id: [id number] Miscellaneous - Del Farfan, R.N. - 04/06/2015 11:15 PM CST Facility Charge Ticket 2.0 11.0 DX Facility Charge Ticket 2.0 11.0 DX Entered On: 04/07/2015 2:21 INVESTIGATOR INTERNAL REVENUE Performed On: 04/06/2015 23:15 INVESTIGATOR INTERNAL REVENUE by DEL FARFAN RN Facility Charge Ticket 2.0 11.0 DX ED Other Charges : Standard ED Encounter TVL Level Translated RTF : Vomiting TVL:4 TVL Level for Facility Charge Ticket : Level 4 Arrival Mode Calc : 1 Mode of Arrival ED : Private vehicle [place] Mode of Arrival Interpreted : Standard [place] Process Management : None Order Management RTF : Laboratory Urinalysis with Culture if Indicated,04/06/15 23:19,JUAN CARLOS MCKEON MD Completed [place] Order Management : Lab tests 30 Minutes Critical Care : No Nursing Notes RTF : Nursing Notes ED Primary Assessment,04/07/15 00:11,DEL FARFAN [employer] SERVER Pain Assessment,04/07/15 02:20,DEL FARFAN RN Communication Note,04/07/15 02:19,DEL FARFAN RN [place] Disposition : Discharge Disposition RTF : discharge Treatments Prior to Arrival : None DEL FARFAN RN - 04/07/2015 2:21 INVESTIGATOR INTERNAL REVENUE Source: [facility] POWERCHART Document Id: [id number] INVESTIGATOR INTERNAL REVENUE!16 STIGATOR INTERNAL REVENUE documented in this encounter Plan of Treatment Not on filedocumented as of this encounter Procedures Procedure Name Priority Date/Time Associated Diagnosis Comme nts URINALYSIS, Routine 04/06/2015 11:30 PM Results for this MIDSTREAM, WITH INVESTIGATOR INTERNAL REVENUE procedure ar e in CULTURE IF the results INDICATED section. documented in this encounter Results (ABNORMAL) Urinalysis, Midstream, with culture if indicated (04/06/2015 11:30 PM INVESTIGATOR INTERNAL REVENUE) [facility] Method Time Signature HXUr Color Yellow Colorless POWERCHART Clarity Clear Clear POWERCHART Glucose Negative Negative POWERCHART MGDL Protein, Ur, Trace Negative POWERCHART Dip MGDL HXBILIRUBIN Moderate Negative POWERCHART (A) Urobilinogen 0.2 0.2 MGDL POWERCHART pH, POCT, Urine 5.5 <5.0 POWERCHART HXBLOOD Small (A) Negative POWERCHART Ketones, QL(U) Negative Negative POWERCHART MGDL HXNITRITE Negative Negative POWERCHART Leukocyte Negative Negative POWERCHART Esterase Specific >=1.030 POWERCHART [place], POCT, U HXUR WBC. Occ-3 None Seen POWERCHART HPF HXUR RBC. Occ-2 None Seen POWERCHART HPF Squamous 4-10 (A) None Seen POWERCHART Epithelial HPF Mucus Present (A) None Seen POWERCHART Casts, Hyaline 1-3 (A) None Seen POWERCHART LPF Specimen (Source) Anatomical Collection Method Collection Time Re ceived Time Location / / Volume Laterality Urine, First 04/06/2015 11:30 Voided PM INVESTIGATOR INTERNAL REVENUE Juan Carlos Mckeon M.D. LAB URINE ORDERABLES Performing Organization Address City/State/ZIP Code Phon e Number POWERCHART documented in this encounter Visit Diagnoses Not on filedocumented in this encounter
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
--- OUTSIDE RECORDS SUMMARY | 2022-02-03 23:57 | XMS_ITS | Encounter Summary ---
:1985 Author Organization [facility] Address [address] [place] [id number] Care Team Providers Name Role Phone Unavailable Primary Care Provider Unavailable Encounter Details Date Type Department Care Team Description 07/10/2015 Hospital Encounter HX [facility] Janett Reyes M .D. Social History Tobacco Use Types Packs/Day Years Used Date Smoking Tobacco: Never Assessed Sex Assigned at Date Recorded Not on file documented as of this encounter Last Filed Vital Signs Vital Sign Reading Time Taken Comments Blood Pressure 121/72 07/10/2015 9:08 AM [facility] Pulse - - Temperature - - Respiratory Rate 18 07/10/2015 8:19 AM [facility] Oxygen Saturation - - Inhaled Oxygen Concentration - - Weight - - Height 169 cm (5' 6.54) 07/10/2015 7:24 AM [facility] Body Mass Index - - documented in this encounter Discharge Summaries Jonas Evans, R.N. - 07/10/2015 9:46 AM CST ED Discharge Instructions [address] [address] [place] [address] Name: SILVIA STEELE Date of : 1985 12:00 AM Visit Date: 07/10/2015 7:17 AM [facility] Number: [id number] Address: [address] [place] [address] Primary Care Provider: SOFIE VÁZQUEZ MD IMPORTANT: [facility] in [place] would like to thank you for allowing us to assist youwith your healthcare needs. The following includes patient education materials and information regarding your injury/illness. Diagnosis: Pharyngitis Streptococcal Follow-Up Instructions: Your Upcoming Appointments: Date Time [...] ?? Muffled voice ?? New rash ?? [phone] Lennie Swain, [address] [place] [address]. All rights reserved. This information is not [...] if you dont have one. Go to [email or web address] and click on Create Your Account. Then, follow the directions to complete the online form. Youll be asked for your [facility] number which you can find at the top of this document. ED Tests and Procedures: Order Status Discharge Prescriptions & Home Medications: Medication/Strength Dose Route Frequency Indications/Special Instructions/Comments/Notes Misc Prescription (work excuse) See Instructions The patient was seen in the ED. Please excuse from work for the following: Seen in ED and should not be working until infection improves. dexamethasone (dexamethasone 2 mg oral tablet) 10 mg Oral once [id number] (oxyCODONE 5 mg oral tablet) 5 mg [...] document has images extracted. Please consider using [employer] for all your patient education needs. Source: [facility] PopJam Document Id: [id number] TANNER Jonas Evans, R.N. - 07/10/2015 9:46 AM CST ED Depart Summary [facility] Emergency Department / Urgent Care Clinical Discharge Summary PERSON INFORMATION Name SILVIA STEELE Age 30 Years 1985 12:00 AM Sex Female Language Haitian PCP SOFIE VÁZQUEZ MD Marital Status Single Visit Id Visit Reason Throat pain - Complicated; sore throat Specialty Enc Type Emergency Med Service Emergency Medicine Referred by Track Group [facility] ED/UC Discharge 07/10/2015 9:39 AM Tracking Id [id number] Checkout 07/10/2015 9:39 AM Checkin 07/10/2015 7:17 AM Acuity 3 -Urgent Dispo Type * Discharged to Home or Self Care Arrival 07/10/2015 7:17 AM Reg Status Complete LOS 000 02:22 Address: [address] [place] [id number] Comment: PROVIDER INFORMATION Provider Role Provider Contact Time JONAS EVANS ED Nurse 07/10/15 07:20 JANETT LAMBERT MD ED Provider 07/10/15 07:23 JONAS EVANS ED Nurse 07/10/15 07:33 DIAGNOSIS Pharyngitis Streptococcal Comment: PATIENT EDUCATION INFORMATION Instructions: PHARYNGITIS, Strep (Confirmed) Follow up: Source: [employer] Document Id: [id number] TANNER documented in this encounter ED Notes Jonas Evans R.N. - 07/10/2015 9:39 AM CST ED Disposition Summary ED Disposition Summary Entered On: 07/10/2015 9:45 [facility] Performed On: 07/10/2015 9:39 [facility] by JONAS EVANS ED Disposition Summary Present in Room During Exam/Procedure : Spouse Mode of Discharge : Ambulatory Transportation : Private vehicle Printed Discharge Instructions Given to Patient : Yes Patient Status at Discharge from ED : Improved Comment : Scripts / discharge in hand. No further questions at this time. Will follow up with ENT tomorrow. JONAS EVANS - 07/10/2015 9:45 [facility] Source: [employer] Document Id: [id number] [facility]!8 TANNER Jonas Evans, R.NEmeka - 07/10/2015 9:39 AM CST ED Pain Assessment ED Pain Assessment Entered On: 07/10/2015 9:45 [facility] Performed On: 07/10/2015 9:39 [facility] by JONAS EVANS Pain Assessment Pain Symptoms : Yes JONAS EVANS - 07/10/2015 9:45 [facility] Pain Scale Pain Scale Verbal 0-10 : Open JONAS EVANS - 07/10/2015 9:45 [facility] Pain Pain Assessment Grid Pain 1 Location : Throat Intensity : 6 Acceptable Intensity : 6 JONAS EVANS - 07/10/2015 9:45 [facility] Source: [employer] Document Id: [id number] [facility]!11 TANNER Jonas Evans R.N. - 07/10/2015 9:09 AM CST ED Nurse Reassess ED Nurse Reassess Entered On: 07/10/2015 9:10 [facility] Performed On: 07/10/2015 9:09 [facility] by JONAS EVANS Pain Assessment Pain Symptoms : Yes JONAS EVANS - 07/10/2015 9:09 [facility] Pain Scale Pain Scale Verbal 0-10 : Open JONAS EVANS - 07/10/2015 9:09 [facility] Pain Pain Assessment Grid Pain 1 Location : Throat Intensity : 7 Acceptable Intensity : 4 Comments (Comment: Pt states she is ready to go. [JONAS EVANS - 07/10/2015 9:09 [facility]] ) JONAS EVANS - 07/10/2015 9:09 [facility] Source: [employer] Document Id: [id number] [facility]!11 TANNER oJnas Evans R.N. - 07/10/2015 8:28 AM CST ED Nurse Reassess ED Nurse Reassess Entered On: 07/10/2015 8:28 [facility] Performed On: 07/10/2015 8:28 [facility] by JONAS EVANS Pain Assessment Pain Symptoms : Yes JONAS EVANS - 07/10/2015 8:28 [facility] CV Reassess CV Patient Stated Symptoms : Dizziness JONAS EVANS - 07/10/2015 8:28 [facility] GI Reassess GI Patient Stated Symptoms : None JONAS EVANS - 07/10/2015 8:28 [facility] Source: [employer] Document Id: [id number] [facility]!7 TANNER Janett Lambert M.D. - 07/10/2015 7:32 AM CST Throat pain - Complicated Patient: SILVIA STEELE Age: 30 years Sex: Female : 1985 Author: JANETT LAMBERT MD Attachments: None Associated Diagnosis: Pharyngitis Streptococcal Basic Information Additional information: Chief Complaint from Nursing Triage Note : Chief Complaint Description 07/10/2015 7:24 [facility] Chief Complaint Description Pt states she was dx w/strep yesterday and started on PCN, states her ST is much worse and she is crying due to pain, states pain is worse on the rt. 07/09/2015 15:15 [facility] Chief Complaint Description Pt arrives with c/o sore throat. States this has been present for the past couple hours. Has not taken any medications. . History of Present Illness The patient presents with sore throat and throat pain. The onset was 2 days ago. The course/durationof symptoms is worsening. Location: Bilateral throat. The character of symptoms is pain and sharp. The degree at present is severe. There are exacerbating factors including coughing and swallowing. Therelieving factor is none. Risk factors consist of none. Prior episodes: occasional. Therapy today: over the counter medications including ibuprofen. Associated symptoms: fever, chills, dyspnea, change in voice, difficulty swallowing and ear pain. Additional history: last intake: 2 minutes ago. Review of Systems Constitutional symptoms: Fever, chills and weakness. Skin symptoms: Negative except as documented in HPI. Eye symptoms: Negative except as documented in HPI. ENMT symptoms: Ear pain and sore throat. Respiratory symptoms: Negative except as documented in HPI. Cardiovascular symptoms: No chest pain or no syncope. Gastrointestinal symptoms: No abdominal pain. Genitourinary symptoms: Negative except as documented in HPI. Musculoskeletal symptoms: Negative except as documented in HPI. Neurologic symptoms: Negative except as documented in HPI. Endocrine symptoms: Negative except as documented in HPI. [...] PowerChart. Cytopathology, slides, cervical or vaginal (the [facility]); manual screening under physician supervision.. ([id number]) in the week of 03/10/2004 at 18 Years. Comments: 04/18/2010 21:45 - CARMEN MORALES Hx: [id number] - LAB-CYTOPATH, SM,D/V,TDS<3SM TECH 03/21/2013 17:41 - Contributor source changed to PowerChart.. Family history: No family history items have been selected or recorded.. Physical Examination Vital Signs: Vital Signs 07/10/2015 7:24 [facility] Temperature Core 37.6 DegC Apical Heart Rate 135 /min HI Respiratory Rate 18 /min SpO2 96 % Systolic Blood Pressure 126 mmHg Diastolic Blood Pressure 93 mmHg >HHI Mean Arterial Pressure 104 mmHg BP Location Right upper 07/09/2015 15:21 [facility] Temperature Core 38.7 DegC HI Peripheral Pulse Rate 102 /min HI Respiratory Rate 16 /min SpO2 99 % Systolic Blood Pressure 125 mmHg Diastolic Blood Pressure 64 mmHg Mean Arterial Pressure 84 mmHg BP Location Left upper Blood Pressure Cuff Size Large , Measurements 07/10/2015 7:24 [facility] Height 169 cm 07/09/2015 15:21 [facility] Height 169 cm 07/09/2015 15:19 [facility] Height 169 cm , SpO2 07/10/2015 7:24 [facility] SpO2 96 % 07/09/2015 15:21 [facility] SpO2 99 % . General: Alert and moderate distress. Skin: Warm, intact and no rash. Head: Normocephalic and atraumatic. Neck: Supple, trachea midline and Submandubular lymph nodes with tender swelling. Eye: Pupils are equal, round and reactive to light, extraocular movements are intact and normal conjunctiva. Ears, nose, mouth and throat: Mouth and Throat: Severe, tonsil, swelling, no bleeding, no palatal petechiae. Respiratory: Lungs are clear to auscultation and respirations are non-labored. Cardiovascular: Tachycardic, regular. Chest wall: No tenderness. Back: Nontender and Normal range of motion. Musculoskeletal: Normal ROM. normal strength. Gastrointestinal: Soft, Nontender and Non distended. Neurological: Alert and oriented to person, place, time, and situation, No focal neurological deficit observed, CN II-XII intact, normal sensory observed and normal speech observed. Psychiatric: Cooperative and appropriate mood & affect. Medical Decision Making Differential Diagnosis:Streptococcal pharyngitis, peritonsillar abscess, Possible tonsilar abscess. Rationale:No soft palate swelling or unilateral swelling to give concern for [employer]. Floor of mouth notswollen. No risk for ludwigs angina. Likely sig tonsilar swelling causing the pain. Small risk of tonsilar abscess. Currently able to take PO, but painful. We will give IVF for hydration, pain control,steroids and broaden abx. Reassess after txt is complete.. Documents reviewed:Emergency department records, prior records. OrdersLaunch Orders Pharmacy: Unasyn (Order Processing): 3 gm, IVPB, Once fentaNYL (Order Processing): 75 mcg, IV Push, Once Toradol (Order Processing): 30 mg, IV Push, Once Decadron (Order Processing): 10 mg, IV Push, Once Saline bolus (Order Processing): 1,000 mL, IVPB, Once, Launch Orders Pharmacy: dexamethasone 2 mg oral tablet (Prescribe): 10 mg, 5 tab(s), PO, Once, 5 tab(s), 0 Refill(s) oxyCODONE 5 mg oral tablet (Prescribe): 5 mg, 1 tab(s), PO, q4hr, Take on 06/13/15, PRN: pain, 12 tab(s), 0 Refill(s) Augmentin 875 mg-125 mg oral tablet (Prescribe): 1 tab(s), PO, 2xDay, for 10 day(s), 20 tab(s), 0 Refill(s), Launch Orders Patient Care: Discharge ED Patient (Order Processing): 07/10/2015 9:32 [facility], Once, Launch Orders Pharmacy: work excuse (Prescribe): See Instructions, The patient was seen in the ED. Please excuse from work for the following: Seen in ED and should not be working until infection improves., 1 each, 0 Refill(s). Reexamination/ Reevaluation Course: improving. Pain status: decreased. Impression and Plan Diagnosis Pharyngitis Streptococcal (Discharge, Medical) Plan Condition: Improved. Disposition: Discharged: to home. Patient was given the following educational materials: PHARYNGITIS, Strep (Confirmed). Counseled: Patient. Notes: Pain improved. IVF given. Pt is able to drink and wants to go home. We changed abx to Augmentin to increase coverage. She should start that tonight. Unasyn given in the ED. Decadron given in 2 days. Oxy for pain. We discussed emergent reasons to return. ENT is present in tomorrow. Recommend return for eval if no improvement.. Electronically Signed By: JANETT LAMBERT MD On: 07/10/2015 07:16 PM Modified by and Electronically Signed by: JANETT LAMBERT MD On: 07/10/2015 09:24 AM Source: [facility] POWERCHART Document Id: [id number]} TANNER Dayan Mccoy R.N. - 07/10/2015 7:24 AM CST ED Primary Assessment Document Has Been Updated ED Primary Assessment Entered On: 07/10/2015 7:30 [facility] Performed On: 07/10/2015 7:24 [facility] by DAYAN MCCOY RN Reason For Visit (As Of: 07/10/2015 07:30:35 [facility]) Problems(Active) No Chronic Problems (Cerner :NKP ) Name of Problem: No Chronic Problems ; Recorder: NATY XIE MD; Confirmation: Confirmed ; Classification: Medical ; Code: NKP ; Last Updated: 05/15/2013 16:30 [facility]; Life Cycle Date: 05/15/2013 ; Life Cycle Status: Active ; Vocabulary: Carmen Diagnoses(Active) Throat pain - Complicated Date: 07/10/2015 ; Diagnosis Type: Reason For Visit ; Confirmation: Complaint of ; Clinical Dx: Throat pain - Complicated ; Classification: Medical ; Clinical Service: Emergency medicine ; Code: PNED ; Probability: 0 ; Diagnosis Code: [id number] Triage Chief Complaint Description : Pt states she was dx w/strep yesterday and started on PCN, states her ST is much worse and she is crying due to pain, states pain is worse on the rt. Information Given By : Patient Present in Room During Exam/Procedure : Alone Mode of Arrival ED : Private vehicle Track : Medical Languages : Haitian Vital Signs Assessed : Yes Treatments Prior to Arrival : Home treatments Are you ? : No Is Patient Female and 13-50 no hysterectomy : Yes Status : Patient denies DAYAN MCCOY RN - 07/10/2015 7:24 [facility] Vital Signs Temperature Core : 37.6 DegC(Converted to: 99.7 DegF) Apical Heart Rate : 135 /min (HI) Respiratory Rate : 18 /min Systolic Blood Pressure : 126 mmHg Diastolic Blood Pressure : 93 mmHg (>HHI) NIBP Mean : 104 mmHg BP Location : Right upper extremity SpO2 : 96 % Oxygen Saturation Monitoring Frequency : Intermittent Oxygen Therapy : Room air Height : 169 cm(Converted to: 5 ft 7 inch(es)) DAYAN MCCOY RN - 07/10/2015 7:24 [facility] Pain Assessment Pain Symptoms : Yes DAYAN MCCOY RN - 07/10/2015 7:24 [facility] Pain Scale Pain Scale Verbal 0-10 : Open DAYAN MCCOY RN - 07/10/2015 7:24 [facility] Pain Pain Assessment Grid Pain 1 Location : Throat Intensity : 10 DAYNA MCCOY RN - 07/10/2015 7:24 [facility] DENNY DCP GENERIC CODE Tracking Acuity : 3 -Urgent Tracking Group : [facility] ED/ DAYAN MCCOY RN - 07/10/2015 7:24 [facility] Allergy (As Of: 07/10/2015 07:30:35 [facility]) Allergies (Active) NKA Estimated Onset Date: Unspecified ; Created By: KATIE BRUNNER MD; Reaction Status: Active ; Category: Drug ; Substance: NKA ; Type: Allergy ; Updated By: KATIE BRUNNER MD; Reviewed Date: 07/10/2015 7:29 [facility] Respiratory Airway : Patent Respirations : Unlabored Respiratory Pattern : Regular Oxygen Therapy : Room air DAYAN MCCOY RN - 07/10/2015 7:24 [facility] Cardiovascular Heart Rhythm : Regular Skin Color : Normal for ethnicity Skin Description : Normal Skin Temperature : Warm DAYAN MCCOY RN - 07/10/2015 7:24 [facility] Neurological Last Well Time Known : Not applicable Level of Consciousness : Alert Orientation : Oriented x 3 Characteristics of Speech : Clear Neuro Patient Stated Symptoms : None Gait : Steady Swallowing Difficulty/Aspiration Risk : None Loss of Consciousness : No DAYAN MCCOY RN - 07/10/2015 7:24 [facility] ED Psychosocial Affect/Behavior : Calm Domestic Abuse Concerns : None Behavioral Health Screen/Safety Assmt : No DAYAN MCCOY RN - 07/10/2015 7:24 [facility] Gastrointestinal Nutrition ED : Adequate DAYAN MCCOY RN - 07/10/2015 7:24 [facility] Musculoskeletal Fall Prevention Education Provided : Yes DAYAN MCCOY RN - 07/10/2015 7:24 [facility] Social Habits Exposure to Tobacco Smoke : Patient smokes, Other: occ alcohol Smoking Status : Current every day smoker Tobacco 2A : Yes Tobacco Use/Currently Using : Yes Tobacco Use/Last 30 Days : Yes Tobacco Use/Last 12 months : Yes Type : Cigarettes: Less than 20 per day Tobacco Use/Advised to Quit : No DAYAN MCCOY RN - 07/10/2015 7:24 [facility] Source: [facility] POWERCHART Document Id: [id number] [facility]ARK TANNER!74 TANNER Jonas Evans RDevendra - 07/10/2015 7:10 AM CST ED Treatments and Procedures ED Treatments and Procedures Entered On: 07/10/2015 9:45 [facility] Performed On: 07/10/2015 7:10 [facility] by JONAS EVANS Peripheral IV Peripheral IV Assess/Intervention Grid Peripheral IV #1 IV Activity : Start Number of Attempts : 1 Date of Insertion : 07/10/2015 [facility] IV Site : Forearm Laterality : Right Catheter Size : 20 Catheter Type : Over the needle Site Condition : No complications Drainage Description : None Infiltration Score : 0 Phlebitis Score : 0 Dressing/ Activity : Dry, Intact, Transparent Flow/ Patency : No complications Patient Indicated Response : Tolerated JONAS EVANS - 07/10/2015 9:43 [facility]NER Source: [employer] Document Id: [id number] [facility] T[facility]NER!18 TANNER documented in this encounter Miscellaneous Notes Miscellaneous - Jonas Evans R.N. - 07/10/2015 9:39 AM CST Valuables/Belongings Valuables/Belongings Entered On: 07/10/2015 9:46 [facility] Performed On: 07/10/2015 9:39 [facility] by JONAS EVANS Valuables/Belongings Valuables/Belongings Grid Valuables with Patient Clothes, Patient Valuables : Pants, Shirt, Shoes, Undergarments Electronic Devices : Cell phone JONAS EVANS - 07/10/2015 9:46 [facility] Room Orientation/Facility Policy Reviewed : Yes Home Medication Disposition : None brought in with patient JONAS EVANS - 07/10/2015 9:46 [facility] Source: [employer] Document Id: [id number] [facility]NER!8 TANNER Miscellaneous - Conversion, Historical Provider Ser - 07/10/2015 9:39 AM [facility] Coding Summary-Paper Based CODING DATE: 07/24/2015 FINAL [facility] STATUS: * Discharged to Home or Self Care PAYOR: Medicaid ADMIT DX: J02.9 Acute pharyngitis, unspecified REASON FOR VISIT DX: J02.9 Acute pharyngitis, unspecified FINAL DX: PRINCIPAL: J02.0 Streptococcal pharyngitis SECONDARY: F17.210 Nicotine dependence, cigarettes, uncomplicated PROCEDURES DOCTOR NAME DATE NOTE: The code number assigned matches the documented diagnosis and / or procedure in the patient's chart. However, the narrative phrase printed from the coding software may appear abbreviated, or result in slightly different terminology. Coded By: SELMA STEINBERG Date Saved: 07/24/2015 07:48 am [facility] Document Id: [id number] documented in this encounter Plan of Treatment Not on filedocumented as of this encounter Visit Diagnoses Not on filedocumented in this encounter
--- OUTSIDE RECORDS SUMMARY | 2022-02-03 23:57 | XMS_ITS | Encounter Summary ---
:1985 Author Organization [facility] Address [address] [place] [address] Care Team Providers Name Role Phone Unavailable Primary Care Provider Unavailable Encounter Details Date Type Department Care Team Description 07/09/2015 Hospital Encounter HX [facility] Tee Niño APRN, C.N.P., D.N.P. [address] [place] [phone] (Wo rk) Social History Tobacco Use Types Packs/Day Years Used Date Smoking Tobacco: Never Assessed Sex Assigned at Date Recorded Not on file documented as of this encounter Last Filed Vital Signs Vital Sign Reading Time Taken Comments Blood Pressure 125/64 07/09/2015 3:21 PM SMOKE CONTROL SUPERVISOR Pulse 102 07/09/2015 3:21 PM SMOKE CONTROL SUPERVISOR Temperature - - Respiratory Rate 16 07/09/2015 3:21 PM SMOKE CONTROL SUPERVISOR Oxygen Saturation - - Inhaled Oxygen Concentration - - Weight - - Height 169 cm (5' 6.54) 07/09/2015 3:21 PM SMOKE CONTROL SUPERVISOR Body Mass Index - - documented in this encounter Discharge Summaries Zaheer Arthur, L.P.N. - 07/09/2015 4:00 PM CST ED Discharge Instructions [facility] [address] [place] [address] Name: SILVIA STEELE Date of : 1985 12:00 AM Visit Date: 07/09/2015 3:13 PM [facility] Number: [id number] Address: [address] [place] [address] Primary Care Provider: SOFIE VÁZQUEZ MD IMPORTANT: [facility] in [place] would like to thank you for allowing us to assist youwith your healthcare needs. The following includes patient education materials and information regarding your injury/illness. Diagnosis: Pharyngitis Streptococcal Follow-Up Instructions: With: Address: When: Follow up with primary care provider Within As Needed Your Upcoming Appointments: Date [...] ?? Muffled voice ?? New rash ?? [id number] [facility], [address] [place] [address], [place] [address]. All rights reserved. This information is not [...] if you dont have one. Go to [email or web address] and click on Create Your Account. Then, follow the directions to complete the online form. Youll be asked for your [facility] number which you can find at the top of this document. ED Tests and Procedures: Order Status Strep A Screen Rapid Completed Discharge Prescriptions & Home Medications: Medication/Strength Dose Route Frequency Indications/Special Instructions/Comments/Notes [id number] V potassium (penicillin V potassium 500 mg [...] a ride home with a responsible republican. I, SILVIA STEELE , or responsible republican have received this information and my questions have been answered. I have discussed any challenges I see with this plan with the nurse or physician. Patient Signature or Responsible Republican/Relationship Date Time Provider Signature Date Time This document has images extracted. Please consider using [employer] / ?.?? for all your patient education needs. Source: [facility] Document Id: [id number] E CONTROL SUPERVISOR Zaheer Arthur L.P.N. - 07/09/2015 4:00 PM CST ED Depart Summary [facility] Emergency Department / Urgent Care Clinical Discharge Summary PERSON INFORMATION Name SILVIA STEELE Age 30 Years 1985 12:00 AM Sex Female Language Thai PCP SOFIE VÁZQUEZ MD Marital Status Single Visit Id Visit Reason UC - Sore Throat; SORE THROAT - BODY ACHES Specialty Enc Type Hospital Outpatient Med Service Urgent Care Referred by Track Group [facility] ED/UC Discharge 07/09/2015 4:00 PM Tracking Id [id number] Checkout 07/09/2015 4:00 PM Checkin 07/09/2015 3:13 PM Acuity 4 -Less Urgent Dispo Type * Discharged to Home or Self Care Arrival 07/09/2015 3:13 PM Reg Status Complete LOS 000 00:47 Address: [address] [place] [address] Comment: PROVIDER INFORMATION Provider Role Provider Contact Time ZAHEER ARTHUR LPN ED Nurse 07/09/15 15:20 BRANDIE NIÑO CNP ED Provider 07/09/15 15:20 DIAGNOSIS Pharyngitis Streptococcal Comment: PATIENT EDUCATION INFORMATION Instructions: PHARYNGITIS, Strep (Confirmed) Follow up: With: Address: When: Follow up with primary care provider Within As Needed Source: [facility] POWERCHART Document Id: [id number] E CONTROL SUPERVISOR documented in this encounter Progress Notes Brandie Niño, ERICKA, C.N.P. - 07/09/2015 3:13 PM CST [id number] CHIEF COMPLAINT/REASON FOR VISIT Sore throat. HISTORY OF PRESENT ILLNESS Patient is a 30-year-old female who presents to Urgent Care today with sore throat. She reports thather throat started to bother her today. She has also had fever. She denies any headache or stomachache. She has not had any nasal congestion or cough. She is not sure if she has been exposed to strep. MEDICATIONS Please see EMR. ALLERGIES Please see EMR. VITAL SIGNS Noted as per nursing documentation. PHYSICAL EXAMINATION GENERAL: Patient is alert, oriented, appears to be in no distress. EYES: No conjunctival injection or drainage noted. EARS: TMs are pearly alejo and intact without effusion. NOSE: No drainage. THROAT: Posterior pharyngeal erythema and tonsillar exudate +2 bilaterally noted. NECK: Supple with anterior cervical lymphadenopathy. HEART: Regular rate and rhythm. LUNGS: Sound clear. DIAGNOSTICS Rapid strep is positive. IMPRESSION/REPORT/PLAN Strep pharyngitis. PLAN: Will treat with penicillin 2 times daily x10 days. Discussed the importance of fluids and rest. Encouraged her to continue to use some Tylenol or ibuprofen as needed for pain or fever. She shouldbe considered contagious until she has been on the antibiotic for 24 hours and she should use a new toothbrush after 24 hours on the antibiotic. Patient verbalizes understanding of our plan and agrees. Brandie Niño R.N., C.N.P./guillermo Electronically Signed By: BRANDIE NIÑO CNP On: 07/09/2015 08:16 PM Source: [facility] MHSDOLBEYNONRADSYS Document Id: [id number] E CONTROL SUPERVISOR documented in this encounter H&P Notes Zaheer Arthur L.P.N. - 07/09/2015 3:21 PM CST Urgent Care Intake Urgent Care Intake Entered On: 07/09/2015 15:25 SMOKE CONTROL SUPERVISOR Performed On: 07/09/2015 15:21 SMOKE CONTROL SUPERVISOR by ZAHEER ARTHUR REVENUE COLLECTOR Intake Chief Complaint : STATES SORE THROAT THAT HAS PROGRESSIVELY GOTTEN WORSE OVER PAST 3 HOURS- C/O CHILLS WELL. Temperature Core : 38.7 DegC(Converted to: 101.7 DegF) (HI) Peripheral Pulse Rate : 102 /min (HI) Respiratory Rate : 16 /min Systolic Blood Pressure : 125 mmHg Diastolic Blood Pressure : 64 mmHg NIBP Mean : 84 mmHg BP Location : Left upper extremity Blood Pressure Cuff Size : Large SpO2 : 99 % Height : 169 cm(Converted to: 5 ft 7 inch(es), 67 inch(es)) ZAHEER ARTHUR REVENUE COLLECTOR - 07/09/2015 15:21 SMOKE CONTROL SUPERVISOR General Info Information Given By : Patient Preferred Communication Mode : Verbal Languages : Thai Is Patient Female and 13-50 no hysterectomy : Yes Status : Patient denies Are you ? : No ZAHEER ARTHUR REVENUE COLLECTOR - 07/09/2015 15:21 SMOKE CONTROL SUPERVISOR Subjective Pain Symptoms : Yes ZAHEER ARTHUR REVENUE COLLECTOR - 07/09/2015 15:21 SMOKE CONTROL SUPERVISOR Pain Scale Pain Scale Verbal 0-10 : Open ZAHEER ARTHUR REVENUE COLLECTOR - 07/09/2015 15:21 SMOKE CONTROL SUPERVISOR Pain Pain Assessment Grid Pain 1 Location : Throat Intensity : 8 ZAHEER ARTHUR LPN - 07/09/2015 15:21 SMOKE CONTROL SUPERVISOR Dependent Habits Exposure to Tobacco Smoke : Patient smokes, Other: occ alcohol Smoking Status : Smoker, current status unknown Tobacco 2A : Yes Tobacco Use/Currently Using : Yes Tobacco Use/Last 30 Days : Yes Tobacco Use/Last 12 months : Yes Type : Cigarettes: Less than 20 per day Tobacco Use/Advised to Quit : Yes ZAHEER ARTHUR LPN - 07/09/2015 15:21 SMOKE CONTROL SUPERVISOR Caffeine Use Grid Caffeine Use : None ZAHEER ARTHUR [facility] - 07/09/2015 15:21 SMOKE CONTROL SUPERVISOR Nutrition Nutrition Risk Factors by History Adult : None ZAHEER ARTHUR REVENUE COLLECTOR - 07/09/2015 15:21 SMOKE CONTROL SUPERVISOR Functional Current Daily Living Assistance : None ZAHEER ARTHUR [facility] - 07/09/2015 15:21 SMOKE CONTROL SUPERVISOR Psychosocial Domestic Abuse Concerns : None Behavioral Health Screen/Safety Assmt : No Yazidi Preference : No Yazidi Affiliation ZAHEER ARTHUR REVENUE COLLECTOR - 07/09/2015 15:21 SMOKE CONTROL SUPERVISOR Advance Directive Advanced Directives : No Advance Directive Additional Information : No ZAHEER ARTHUR [facility] - 07/09/2015 15:21 SMOKE CONTROL SUPERVISOR Educ Needs Learning Style Preference Adult Grid Patient : Printed materials Family : None ZAHEER ARTHUR [facility] - 07/09/2015 15:21 SMOKE CONTROL SUPERVISOR Source: [employer] Document Id: [id number] SMOKE CONTROL SUPERVISOR!56 E CONTROL SUPERVISOR documented in this encounter ED Notes Zaheer Arthur L.P.NEmeka - 07/09/2015 3:59 PM CST ED Disposition Summary ED Disposition Summary Entered On: 07/09/2015 16:00 SMOKE CONTROL SUPERVISOR Performed On: 07/09/2015 15:59 SMOKE CONTROL SUPERVISOR by ZAHEER ARTHUR LPN ED Disposition Summary Present in Room During Exam/Procedure : Alone Mode of Discharge : Ambulatory Discharge From ED With : Home Med List Printed Discharge Instructions Given to Patient : Yes Patient Status at Discharge from ED : Unchanged ARIA ARTHURANTONIO Breen REVENUE COLLECTOR - 07/09/2015 15:59 SMOKE CONTROL SUPERVISOR Source: [employer] Document Id: [id number] SMOKE CONTROL SUPERVISOR!7 E CONTROL SUPERVISOR Nola La R.N. - 07/09/2015 3:15 PM CST ED Triage Assessment Document Has Been Updated ED Triage Assessment Entered On: 07/09/2015 15:19 SMOKE CONTROL SUPERVISOR Performed On: 07/09/2015 15:15 SMOKE CONTROL SUPERVISOR by NOLA LA RN Reason For Visit (As Of: 07/09/2015 15:19:41 SMOKE CONTROL SUPERVISOR) Problems(Active) No Chronic Problems (Cerner :NKP ) Name of Problem: No Chronic Problems ; Recorder: NATY XIE MD; Confirmation: Confirmed ; Classification: Medical ; Code: NKP ; Last Updated: 05/15/2013 16:30 SMOKE CONTROL SUPERVISOR; Life Cycle Date: 05/15/2013 ; Life Cycle Status: Active ; Vocabulary: Cerner Diagnoses(Active) UC - Sore Throat Date: 07/09/2015 ; Diagnosis Type: Reason For Visit ; Confirmation: Complaint of ; Clinical Dx: UC - Sore Throat ; Classification: Medical ; Clinical Service: Non-Specified ; Code: PNED ; Probability: 0 ; Diagnosis Code: [id number] Triage Chief Complaint Description : Pt arrives with c/o sore throat. States this has been present for the past couple hours. Has not taken any medications. Information Given By : Patient Present in Room During Exam/Procedure : Alone Mode of Arrival ED : Private vehicle Track : Medical Languages : Thai Patient Informed of Triage Location : Urgent Care Treatments Prior to Arrival : None Are you ? : No Is Patient Female and 13-50 no hysterectomy : Yes Status : Patient denies NOLA LA RN - 07/09/2015 15:18 SMOKE CONTROL SUPERVISOR Pain Assessment Pain Symptoms : Yes NOLA LA RN - 07/09/2015 15:18 SMOKE CONTROL SUPERVISOR Pain Scale Pain Scale Verbal 0-10 : Open NOLA LA RN - 07/09/2015 15:18 SMOKE CONTROL SUPERVISOR Pain Pain Assessment Grid Pain 1 Location : Throat NOLA LA RN - 07/09/2015 15:18 SMOKE CONTROL SUPERVISOR DENNY DCP GENERIC CODE Tracking Acuity : 4 -Less Urgent Tracking Group : [facility] NOLA LA RN - 07/09/2015 15:18 SMOKE CONTROL SUPERVISOR Source: [employer] Document Id: [id number] SMOKE CONTROL SUPERVISOR!25 E CONTROL SUPERVISOR documented in this encounter Plan of Treatment Not on filedocumented as of this encounter Procedures Procedure Name Priority Date/Time Associated Diagnosis Comme nts RAPID STREP A Routine 07/09/2015 3:27 PM Results for this SCREEN SMOKE CONTROL SUPERVISOR procedure are i n the results section. documented in this encounter Results (ABNORMAL) Rapid Strep A Screen (07/09/2015 3:27 PM SMOKE CONTROL SUPERVISOR) [facility] Method Time Signature HXStrep A (POSITIVE) POWERCHART Screen Rapid HXFinal Positive for POWERCHART Group A Strep by rapid screen. Specimen (Source) Anatomical Collection Method Collection Time Re ceived Time Location / / Volume Laterality Throat 07/09/2015 3:27 PM SMOKE CONTROL SUPERVISOR Brandie Niño APRN, C.N.P., D.N.P. LAB MICROBIOLOGY - GENERAL ORDERABLES Performing Organization Address City/State/ZIP Code Phon e Number POWERCHART documented in this encounter Visit Diagnoses Not on filedocumented in this encounter
--- OUTSIDE RECORDS SUMMARY | 2022-02-03 23:57 | XMS_ITS | Encounter Summary ---
:1985 Author Organization [facility] Address [address] [place] [address] Care Team Providers Name Role Phone Unavailable Primary Care Provider Unavailable Encounter Details Date Type Department Care Team Description 11/26/2015 Hospital Encounter HX [facility] Loli Park, ERICKA, C.N.P. [address] [place] [phone] (Wo rk) Social History Tobacco Use Types Packs/Day Years Used Date Smoking Tobacco: Never Assessed Sex Assigned at Date Recorded Not on file documented as of this encounter Last Filed Vital Signs Vital Sign Reading Time Taken Comments Blood Pressure - - Pulse - - Temperature - - Respiratory Rate - - Oxygen Saturation - - Inhaled Oxygen Concentration - - Weight - - Height 166 cm (5' 5.35) 11/26/2015 5:01 PM CDT Body Mass Index - - documented in this encounter Miscellaneous Notes Miscellaneous - Loli Park, C.N.P., R.N. - 11/27/2015 9:36 AM CDT Results Notification Document Contains Addenda Addendum by LOLI PARK CNP on November 27, 2015 12:12:50 CDT noted Addendum by DANDY NAIR LPN on November 27, 2015 11:38:24 CDT Pt states that her pain is 7 today From: LOLI PARK CNP To: YADIRA Occupational Medicine Pana Nurse; Sent: 11/27/2015 09:36:26 CDT Show up: 11/27/2015 09:36:00 CDT Subject: Results Notification back xrays look normal. no arthritis no dislocations, normal disc spaces. order has been placed for PT. how is she feeling today? Results: Date Result Type Result Name 11/27/2015 9:18 Radiology XR Lumbar Spine 2 or 3 views Source: [facility] Message SystemsCHART Document Id: [id number] Electronically signed by Conversion, [facility] Cloth Desizing Range Tender [id number] at 09/27/2016 12:21 PM CDT Miscellaneous - Loli Park C.N.P., R.N. - 11/27/2015 9:34 AM CDT Addendum by DANDY NAIR LPN on November 27, 2015 11:42:53 CDT From: DANDY NAIR LPN ( Occupational Medicine Pana Nurse) To: [facility] Chemistry Quality Control Technician/Work Comp; Sent: 11/27/2015 11:42:53 CDT Subject: WC PA Addendum by DANDY NAIR LPN on November 27, 2015 11:41:29 CDT Workers Compensation Referral Referred from:Occupatioanl med Requesting Provider: _Loli Jeff Requesting Department/Facility: _ Date of Injury: _11/24/2015 Body part Injured: _lower back Employer on date of claimed injury: _[employer] Surgery/Procedure/Test/Specialty Referring for: _Phyical Therapy Diagnosis/Reason: _Lower back pain MRI Requested: Yes _/No_x Patient Claustrophobic? _n Patient Diabetic? _n Patient n _ From: LOLI PARK ESCROW ASSISTANT To: Occupational Medicine Pana Nurse; Sent: 11/27/2015 09:34:05 CDT please request PA for PT, low back injury [facility] Document Id: [id number] Electronically signed by Conversion, [facility] Cloth Desizing Range Tender [id number] at 09/27/2016 12:21 PM CDT Miscellaneous - Conversion, Historical Provider Ser - 11/27/2015 9:15 AM CDT *General Message Document Contains Addenda Addendum by DANDY NAIR LPN on November 27, 2015 11:39:12 CDT xray report given to pt From: NADEEM DIEGO ( [employer] Center Weapons Specialist) To: Occupational Medicine [place] Nurse; Sent: 11/27/2015 09:15:13 CDT Subject: *General Message Caller Name/Relationship Facility/Wing Call Back # [phone] Reason For Call Looking for x-ray results Source: [facility] [employer] Document Id: [id number] documented in this encounter Plan of Treatment Not on filedocumented as of this encounter Procedures Procedure Name Priority Date/Time Associated Diagnosis Comme nts DX LUMBAR SPINE 2-3 Routine 11/26/2015 5:05 PM Re sults for this VIEWS CDT procedure are i n the results section. documented in this encounter Results DX Lumbar Spine 2-3 Views (11/26/2015 5:05 PM CDT) Anatomical Region Laterality Modality Lumbar Spine N/A Radiographic Imaging Specimen (Source) Anatomical Collection Method Collection Time Re ceived Time Location / / Volume Laterality 11/26/2015 5:05 PM CDT Addenda Addendum by Provider, Lupe Villanueva 11/26/2015 5:05 PM CDT RAD^^^AU XR Lumbar Spine 2 or 3 views 11/26/2015 17:05:23 Impressions 11/27/2015 9:15 AM CDT ??Normal cervical lordosis. Subtle retrolisthesis of L5 on S1. No fracture. The following findings are so common in normal, pain-free volunteers that while we report their presence, they must be interpreted with caution and in the context of the clinical situation. ??Among peop le under the age of 40 who do not have b ack pain, a plain film x-ray will find that about: 5 in 10 have disk degeneration 3 in 10 have disk height loss Note that even 3 in 10 means that the fi nding is quite common in people without back pain. Narrative 11/27/2015 9:15 AM CDT EXAM: XR Lumbar Spine 2 or 3 views INDICATION: back pain COMPARISON: None. Procedure Note Luis Dalton M.D. / Provider, Stella sin M.D. - 09/05/2016 EXAM: XR Lumbar Spine 2 or 3 views INDICATION: back pain COMPARISON: None. IMPRESSION: Normal cervical lordosis. Larois btle retrolisthesis of L5 on S1. No fracture. The following findings are so common in normal, pain-free volunteers that while we report their presence, they must be interpreted with caution and in the context of the clinical situation. Among people under the age of 40 who do not have back pain, a plain fi lm x-ray will find that about: 5 in 10 have disk degeneration 3 in 10 have disk height loss Note that even 3 in 10 means that the fi nding is quite common in people without back pain. Terry Alicia R.T.(R)(CT), R.T.(R) IMG DIAGNOSTIC IMAG ING PROCEDURES documented in this encounter Visit Diagnoses Not on filedocumented in this encounter
--- OUTSIDE RECORDS SUMMARY | 2022-02-03 23:57 | XMS_ITS | Encounter Summary ---
:1985 Author Organization [facility] Address [address] [place] [address] Care Team Providers Name Role Phone Unavailable Primary Care Provider Unavailable Encounter Details Date Type Department Care Team Description 07/21/[address] [facility] ED Mimi Hillman M. D., M.B.A. [address] [place] [phone] (Wo rk) Social History Tobacco Use Types Packs/Day Years Used Date Smoking Tobacco: Never Assessed Sex Assigned at Date Recorded Not on file documented as of this encounter Last Filed Vital Signs Vital Sign Reading Time Taken Comments Blood Pressure 119/87 07/21/2015 12:07 AM CDT Pulse 104 07/21/2015 12:07 AM CDT Temperature - - Respiratory Rate 17 07/21/2015 12:07 AM CDT Oxygen Saturation - - Inhaled Oxygen Concentration - - Weight - - Height - - Body Mass Index - - documented in this encounter Discharge Summaries Devi Raza R.N. - 07/21/2015 2:42 AM CDT ED Depart Summary [facility] Emergency Department / Urgent Care Clinical Discharge Summary PERSON INFORMATION Name SILVIA BLANCHARD Age 30 Years 1985 12:00 AM Sex Female Language [place] PCP SOFIE VÁZQUEZ MD Marital Status Visit Id Visit Reason Chest pain - Pleuritic; chest pain Specialty Enc Type Emergency Med Service Emergency Medicine Referred by Track Group [facility] ED/UC Discharge 07/21/2015 2:42 AM Tracking Id [id number] Checkout 07/21/2015 2:42 AM Checkin 07/21/2015 12:09 AM Acuity 3 -Urgent Dispo Type * Discharged to Home or Self Care Arrival 07/21/2015 12:09 AM Reg Status Complete LOS 000 02:33 Address: [address] [place] [phone] Comment: PROVIDER INFORMATION Provider Role Provider Contact Time DEVI RAZA CLOTH PRINTER HELPER Nurse 07/21/15 00:11 MIMI HILLMAN MD ED Provider 07/21/15 00:51 DIAGNOSIS Pain Chest Wall (CWP) Comment: PATIENT EDUCATION INFORMATION Instructions: CHEST PAIN, NonCardiac Follow up: With: Address: When: *Follow Up with ENT Within 5 - 7 days With: Address: When: Follow Up with Primary Care Within 5 - 7 days, only if needed Comments: ongoing throat pain, ED follow up chest pain With: Address: When: Return to Urgent Care Within As Needed With: Address: When: SOFIE VÁZQUEZ [address] [place] [phone] Business (1) Within As Needed Source: [facility] POWERCHART Document Id: [id number] Devi Raza R.N. - 07/21/2015 2:42 AM CDT ED Discharge Instructions [place] [address] [place] [address] Name: SILVIA BLANCHARD Date of : 1985 12:00 AM Visit Date: 07/21/2015 12:09 AM [facility] Number: [id number] Address: [address] [place] [phone] Primary Care Provider: SOFIE VÁZQUEZ MD IMPORTANT: [facility] in [place] would like to thank you for allowing us to assist youwith your healthcare needs. The following includes patient education materials and information regarding your injury/illness. Diagnosis: Pain Chest Wall (CWP) Follow-Up Instructions: With: Address: When: *Follow Up with ENT Within 5 - 7 days With: Address: When: Follow Up with Primary Care Within 5 - 7 days, only if needed Comments: ongoing throat pain, ED follow up chest pain With: Address: When: Return to Urgent Care Within As Needed With: Address: When: SOFIE VÁZQUEZ [address] [place] [phone] Business (1) Within As Needed Your Upcoming Appointments: Date Time Location Provider No Appointments found Patient Education Materials: Chest Pain, Noncardiac Based on your visit today, the exact cause of your chest pain is not certain. Your condition does not seem serious and your pain does not appear to be coming from your heart. However, sometimes the signs of a serious problem take more time to appear. Therefore, please watch for the warning signs listed below. Home Care: Rest today and avoid strenuous activity. Take any prescribed medicine as directed. Follow Up with your doctor or this facility as instructed or if you do not start to feel better within 24 hours. Get Prompt Medical Attention if any of the following occur: ?? A change in the type of pain: if it feels different, becomes more severe, lasts longer, or beginsto spread into your shoulder, arm, neck, jaw or back ?? Shortness of breath or increased pain with breathing ?? Cough with dark colored sputum (phlegm) or blood ?? Weakness, dizziness, or fainting ?? Fever of 100.4?F (38?C) or higher, or as directed by your healthcare provider ?? Swelling, pain or redness in one leg ?? [phone] [place] [address]. All rights reserved. This information is not [...] if you dont have one. Go to [email or web address] and click on Create Your Account. Then, follow the directions to complete the online form. Youll be asked for your [facility] number which you can find at the top of this document. ED Tests and Procedures: Order Status Follow Up with ENT Completed EKG-Lab Completed XR Chest 2 Views Ordered Basic Metabolic Panel Completed CBC (includes Auto Differential) Completed Lactic Acid Completed Hepatic Function Panel Completed Lipase Level Completed DDimer Completed Automated Diff-5 Part Completed Discharge Prescriptions & Home Medications: Medication/Strength Dose Route Frequency Indications/Special Instructions/Comments/Notes dexamethasone (dexamethasone 2 mg oral tablet) 10 mg Oral once oxyCODONE (oxyCODONE 5 mg oral tablet) 5 mg Oral every 4 hours as needed for pain Take on 06/13/15 lidocaine topical (Lidoderm 5% topical film) 1 [...] document has images extracted. Please consider using [employer] for all your patient education needs. Source: [facility] POWERCHART Document Id: [id number] documented in this encounter ED Notes Devi Raza R.N. - 07/21/2015 2:42 AM CDT ED Disposition Summary ED Disposition Summary Entered On: 07/21/2015 2:42 CDT Performed On: 07/21/2015 2:42 CDT by DEVI RAZA RN ED Disposition Summary Present in Room During Exam/Procedure : Spouse Mode of Discharge : Ambulatory Transportation : Private vehicle Discharge From ED With : Home Med List Printed Discharge Instructions Given to Patient : Yes Patient Status at Discharge from ED : Improved DEVI RAZA RN - 07/21/2015 2:42 CDT Source: Wi3 Document Id: [id number] CDT!8 eDvi Raza R.N. - 07/21/2015 2:42 AM CDT ED Pain Assessment ED Pain Assessment Entered On: 07/21/2015 2:42 CDT Performed On: 07/21/2015 2:42 CDT by DEVI RAZA RN Pain Assessment Pain Symptoms : Yes DEVI RAZA RN - 07/21/2015 2:42 CDT Source: Wi3 Document Id: [id number] CDT!3 Devi Raza R.N. - 07/21/2015 2:41 AM CDT ED Treatments and Procedures ED Treatments and Procedures Entered On: 07/21/2015 2:41 CDT Performed On: 07/21/2015 2:41 CDT by DEVI RAZA RN Peripheral IV Peripheral IV Assess/Intervention Grid Peripheral IV #1 IV Activity : Discontinue Removal : Catheter intact, Hemostasis within expected timeframe Number of Attempts : 1 Date of Insertion : 07/21/2015 CDT Discontinued Date : 07/21/2015 CDT IV Site : Antecubital Laterality : Left Catheter Size : 20 Catheter Type : Over the needle Site Condition : No complications DEVI RAZA RN - 07/21/2015 2:41 CDT Source: Wi3 Document Id: [id number] CDT!14 Mimi Hillman M.D. - 07/21/2015 1:59 AM CDT Chest pain - Pleuritic Patient: SILVIA BLANCHARD Age: 30 years Sex: Female : 1985 Author: MIMI HILLMAN MD Attachments: None Associated Diagnosis: Pain Chest Wall (CWP) Basic Information Additional information: Chief Complaint from Nursing Triage Note : Chief Complaint Description 07/21/2015 0:07 CDT Chief Complaint Description Pt reports chest pain that radiates across and occasionally to her back. Pain is worse with a deep breath and movement. Pain started 2 hours prior to arrival while sitting. She denies nausea. She is a smoker not on control. Lung sounds clear 07/20/2015 9:24 CDT Chief Complaint Description multiple sore throats recently. seen in /ED and [place]. sore throat returned. able to swallow her own secretions. breathing esay at r/a. pink in color. 07/20/2015 8:36 CDT Chief Complaint Description sore throat for a couple wks, has been seen numeroustimes. Last time was sent to [place] because ENT was not available here. She did not see ENT in [place] on July 16, but was given a steroid shot that she said helped for 2 days . History of Present Illness The patient presents with Ms. Blanchard is a pleasant 30 year old lady who comes in today with suddenonset of chest pain that occurred while she was at rest, about three hours prior to arrival. She states it is about the middle of her chest, radiates around and below both breasts and into her back. She had a little shortness of breath associated with it. no diaphoresis. No nausea, no weakness. No fevers or chills. No recent travel. No personal or family history of blood clots. No leg swelling. The pain has been constant since onset, and is about a 6.5-7 out of 10. . The onset was 3 hours ago. The course/duration of symptoms is constant. Location: Central chest. Radiating pain: around breasts and into back. The character of symptoms is pressure. The degree at onset was severe. The degree at maximum was severe. The degree at present is severe. The exacerbating factor is none. The relieving factor is none. Risk factors consist of obesity. Prior episodes: none. Therapy today None. Associated symptoms: shortness of breath, denies nausea, denies vomiting, denies diaphoresis and denies palpitations. Review of Systems Constitutional symptoms: No fever or no chills. Skin symptoms: No rash. Eye symptoms: Negative except as documented in HPI. ENMT symptoms: Sore throat. Respiratory symptoms: Shortness of breath, but no orthopnea or no cough. Cardiovascular symptoms: Chest pain, but no palpitations, no diaphoresis or no peripheral edema. Gastrointestinal symptoms: No abdominal pain, no nausea or no vomiting. Genitourinary symptoms: Negative except as documented in HPI. Musculoskeletal symptoms: No back pain. Neurologic symptoms: Negative except as documented in HPI. Psychiatric symptoms: Negative except as documented in HPI. Hematologic/Lymphatic symptoms: Negative except as documented in HPI. Additional review of systems information: All other systems reviewed and otherwise negative. Health Status Allergies: Allergic Reactions (Selected) NKA. Medications: (Selected) Inpatient Medications Ordered GI Cocktail: 45 mL, PO, Once Prescriptions Prescribed GoLYTELY oral powder for reconstitution: [...] See Instructions, Please excuse from work from 07/11/15 to 07/13/15 d/t acute illness, 1 each, 0 Refill(s) dexamethasone 2 mg oral tablet: 10 mg, 5 tab(s), PO, Once, 5 tab(s), 0 Refill(s) oxyCODONE 5 mg oral tablet: 5 mg, 1 tab(s), PO, q4hr, Take on 06/13/15, PRN: pain, 12 tab(s), 0 Refill(s) work excuse: See Instructions, The patient was seen in the ED. Please excuse from work for the following: Seen in ED and should not be working until infection improves., 1 each, 0 Refill(s). Past Medical/ Family/ Social History Medical history: Negative. Surgical history: Negative. Family history: father with chest pain problems, but no history of CA, mom healthy; grandparents with cardiac disease. Social history: Alcohol use: Occasionally, drinks 3 servings of alcohol weekly, Tobacco use: Denies,Occupation: Employed, Family/social situation: . Physical Examination Vital Signs: Vital Signs 07/21/2015 0:07 CDT Temperature Core 37.3 DegC Peripheral Pulse Rate 104 /min HI Respiratory Rate 17 /min SpO2 97 % Systolic Blood Pressure 119 mmHg Diastolic Blood Pressure 87 mmHg Mean Arterial Pressure 98 mmHg 07/20/2015 8:52 CDT Temperature Core 37.4 DegC Peripheral Pulse Rate 116 /min HI Respiratory Rate 16 /min SpO2 16 % <LLOW Systolic Blood Pressure 117 mmHg Diastolic Blood Pressure 81 mmHg BP Location Right upper , SpO2 07/21/2015 0:07 CDT SpO2 97 % 07/20/2015 8:52 CDT SpO2 16 % <LLOW . General: Alert and no acute distress. Skin: Warm, dry, pink and intact. Head: Normocephalic. Neck: Supple. Eye: Normal conjunctiva. Ears, nose, mouth and throat: Oral mucosa moist and prominent tonsils without erythema or exudate. Cardiovascular: Regular rate and rhythm and No murmur. Respiratory: Lungs are clear to auscultation and respirations are non-labored. Gastrointestinal: Soft and Nontender. Back: Normal range of motion. Musculoskeletal: Normal ROM Neurological: Alert and oriented to person, place, time, and situation. Psychiatric: Cooperative and appropriate mood & affect. Medical Decision Making Differential Diagnosis:Anxiety, pulmonary embolism, atypical chest pain, gastroesophageal reflux disease, costochondritis, pneumothorax, not aortic dissection. Rationale:Otherwise healthy 30 year old lady with sudden onset chest pain and some associated dyspnea without hypoxia. She is a little tachycardic in the ED and therefore a d-dimer was obtained which is negative, no further evaluation for PE indicated at this time. Do not suspect cardiac etiology as normal ECG and no risk factors for premature CAD. Pain is predominantly substernal, GERD/esophagitis is a possibility, with radiation to the back consideration of pancreatitis, but the pain is generally superior to this. Labs benign. Toradol given for analgesia with minimal relief. Will provide GI cocktail. Anticipate dismissal with primary care follow up for further evaluation. . OrdersLaunch Orders Pharmacy: GI Cocktail (Order Processing): 45 mL, PO, Once. Results review:Lab results : Lab View 07/20/2015 9:03 CDT Hgb 13.8 g/dL Hct 42.4 % WBC 12.0 x10(9)/L HI RBC 4.58 x10(12)/L MCV 92.6 fL RDW 13.6 % Platelet 292 x10(9)/L Neutro Absolute 7.59 10(9)/L HI Lymph Absolute 3.01 x10(9)/L HI Prowers Absolute 1.12 x10(9)/L HI Eos Absolute 0.24 x10(9)/L Baso Absolute 0.03 x10(9)/L Mononucleosis Screen Review , Lab results : Lab View 07/21/2015 1:09 CDT Hgb 13.3 g/dL Hct 40.4 % WBC 12.7 x10(9)/L HI RBC 4.37 x10(12)/L MCV 92.4 fL RDW 13.3 % Platelet 267 x10(9)/L Neutro Absolute 8.07 10(9)/L HI Lymph Absolute 3.57 x10(9)/L HI Prowers Absolute 0.76 x10(9)/L Eos Absolute 0.27 x10(9)/L Baso Absolute 0.04 x10(9)/L D-Dimer <0.27 mcg/mL FEU Sodium Lvl 138 mmol/L Potassium Lvl 4.3 mmol/L Chloride 103 mmol/L CO2 25 mmol/L AGAP 10 mmol/L Alkaline Phosphatase 56 U/L Glucose Lvl 102 mg/dL Creatinine 0.67 mg/dL EGFR (MDRD) >60 mL/min/1.73m2 EGFR (MDRD) >60 mL/min/1.73m2 BUN 16 mg/dL Calcium Lvl 9.0 mg/dL Protein Total 7.4 g/dL Albumin Lvl 3.8 g/dL AST 12 U/L ALT 17 U/L Bili Total 0.5 mg/dL Bili Direct <0.2 mg/dL Lipase Lvl 21 U/L Lactic Acid Lvl 0.6 mmol/L , Interpretation Abnormal results mild leukocytosis. Chest X-Ray:No acute disease process, interpretation by Emergency Physician. Radiology results:Computed tomography, reviewed radiologist's report, reveals no acute disease process. Reexamination/ Reevaluation Time: 07/21/2015 01:30:00 . Course: unchanged. Impression and Plan Diagnosis Pain Chest Wall (CWP) (Discharge, Medical) Plan Condition: Improved. Disposition: Discharged: to home. Patient was given the following educational materials: CHEST PAIN, NonCardiac. Follow up with: SOFIE VÁZQUEZ Within As Needed; Return to Urgent Care Within As Needed; Follow Up with Primary Care Within 5 - 7 days, only if needed ongoing throat pain, ED follow up chest pain. Counseled: Patient, Family, Regarding diagnosis, Regarding diagnostic results, Regarding treatment plan, Patient indicated understanding of instructions. Electronically Signed By: MIMI HILLMAN MD On: 07/21/2015 05:45 AM Modified by and Electronically Signed by: MIMI HILLMAN MD On: 07/21/2015 05:45 AM Source: [facility] Document Id: [id number]} Devi Raza R.N. - 07/21/2015 1:48 AM CDT ED Nurse Reassess ED Nurse Reassess Entered On: 07/21/2015 1:49 CDT Performed On: 07/21/2015 1:48 CDT by DEVI RAZA RN Pain Assessment Pain Symptoms : Yes DEVI RAZA RN - 07/21/2015 1:48 CDT Resp Reassess Respiratory Patient Stated Symptoms : None Distress : None Airway : Patent Respiratory Pattern : Regular Respirations : Unlabored Cough : None DEVI RAZA RN - 07/21/2015 1:48 CDT Source: [facility] Document Id: [id number] CDT!10 Devi Raza R.N. 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; Life Cycle Date: 05/15/2013 ; Life Cycle Status: Active ; Vocabulary: Katharinener Diagnoses(Active) Chest pain - Pleuritic Date: 07/21/2015 ; Diagnosis Type: Reason For Visit ; Confirmation: Complaintof ; Clinical Dx: Chest pain - Pleuritic ; Classification: Medical ; Clinical Service: Emergency medicine ; Code: PNED ; Probability: 0 ; Diagnosis Code: [id number] Pain Chest Wall (CWP) Date: 07/21/2015 ; Diagnosis Type: Discharge ; Confirmation: Confirmed ; Clinical Dx: Pain Chest Wall (CWP) ; Classification: Medical ; Clinical Service: Non-Specified ; Code: ICD-10-CM ; Probability: 0 ; Diagnosis Code: R07.89 Triage Chief Complaint Description : Pt reports chest pain that radiates across and occasionally to her back. Pain is worse with a deep breath and movement. Pain started 2 hours prior to arrival while sitting. She denies nausea. She is a smoker not on control. Lung sounds clear Mode of Arrival ED : Private vehicle Track : Medical Languages : [place] Vital Signs Assessed : Yes Treatments Prior to Arrival : None Are you ? : No Is Patient Female and 13-50 no hysterectomy : Yes Status : Possible unconfirmed DEVI RAZA RN - 07/21/2015 1:27 CDT Vital Signs Temperature Core : 37.3 DegC(Converted to: 99.1 DegF) Peripheral Pulse Rate : 104 /min (HI) Respiratory Rate : 17 /min Systolic Blood Pressure : 119 mmHg Diastolic Blood Pressure : 87 mmHg NIBP Mean : 98 mmHg SpO2 : 97 % DEVI RAZA RN - 07/21/2015 1:27 CDT Pain Assessment Pain Symptoms : Yes DEVI RAZA RN - 07/21/2015 1:27 CDT Pain Scale Pain Scale Verbal 0-10 : Open DEVI RAZA RN - 07/21/2015 1:27 CDT Pain Pain Assessment Grid Pain 1 Location : Chest Intensity : 7 DEVI RAZA RN - 07/21/2015 1:27 CDT DENNY DCP GENERIC CODE Tracking Group : [facility] ED/ Tracking Acuity : 3 -Urgent DEVI RAZA RN - 07/21/2015 1:27 CDT Respiratory Airway : Patent Respirations : Unlabored Respiratory Pattern : Regular DEVI RAZA RN - 07/21/2015 1:27 CDT Cardiovascular Heart Rhythm : Regular Skin Color : Normal for ethnicity Skin Description : Dry Skin Temperature : Warm Cardiovascular Detailed Assessment : Yes DEVI RAZA RN - 07/21/2015 1:27 CDT CV Detailed CV Patient Stated Symptoms : Chest pain Cardiac Rhythm : Sinus rhythm DEVI RAZA RN - 07/21/2015 1:27 CDT Neurological Last Well Time Known : Not applicable Level of Consciousness : Alert Orientation : Oriented x 3 Characteristics of Speech : Clear Neuro Patient Stated Symptoms : None DEVI RAZA RN - 07/21/2015 1:27 CDT ED Psychosocial Affect/Behavior : Calm, Cooperative, Appropriate Domestic Abuse Concerns : None Behavioral Health Screen/Safety Assmt : No DEVI RAZA RN - 07/21/2015 1:27 CDT Gastrointestinal Nutrition ED : Adequate DEVI RAZA RN - 07/21/2015 1:27 CDT Musculoskeletal Fall Prevention Education Provided : DEVI PRADO RN - 07/21/2015 1:27 CDT Social Habits Exposure to Tobacco Smoke : Patient smokes, Other: occ alcohol Smoking Status : Current every day smoker Tobacco 2A : Yes Tobacco Use/Currently Using : Yes Tobacco Use/Last 30 Days : Yes Tobacco Use/Last 12 months : Yes Type : Cigarettes: Less than 20 per day Tobacco Use/Advised to Quit : No DEVI RAZA RN - 07/21/2015 1:27 CDT Alcohol Use Grid Alcohol Use : Yes Frequency : Occasionally DEVI RAZA RN 07/21/2015 1:27 CDT Peripheral IV Peripheral IV Assess/Intervention Grid Peripheral IV #1 IV Activity : Start Removal : Catheter intact, Hemostasis within expected timeframe Number of Attempts : 1 Date of Insertion : 07/21/2015 CDT Discontinued Date : 07/21/2015 CDT IV Site : Antecubital Laterality : Left Catheter Size : 20 Catheter Type : Over the needle Site Condition : No complications DEVI RAZA RN - 07/21/2015 2:42 CDT Source: Wi3 Document Id: [id number] CDT!14 documented in this encounter Miscellaneous Notes Telephone Encounter - Conversion, Historical Provider Ser - 07/22/2015 8:25 AM CDT Follow Up with ENT Entered by CHEVY KERR on July 22, 2015 08:25:28 CDT patient scheduled for 06/24/15 Follow Up Request: Follow Up with ENT Date Requested: July 21, 2015 02:28:22 CDT Ed Location: [facility] ED ED Attending: MIMI HILLMAN MD Order placed from order screen by provider Order Provider: --- Follow Up Time Frame: --- Reason for Request: --- Special Instructions: --- Consulting Physician: --- Consulting Department: --- Rule placed order based on provider documentaton Note: Order created from documentation in the Follow Up section Documented by: MIMI HILLMAN MD Follow Up Within: 5 - 7 days Follow Up On: -- Follow Up Address: -- Follow Up Comments: -- Source: Wi3 Document Id: [id number] Miscellaneous - Conversion, Historical Provider Ser - 07/21/2015 2:42 AM CDT Coding Summary-Paper Based CODING DATE: 08/02/2015 FINAL [facility] STATUS: * Discharged to Home or Self Care PAYOR: Medicaid ADMIT DX: R78.9 Finding of unspecified substance, not normally found in blood REASON FOR VISIT DX: R07.89 Other chest pain FINAL DX: PRINCIPAL: R07.89 Other chest pain SECONDARY: R06.02 Shortness of breath R00.0 Tachycardia, unspecified J02.9 Acute pharyngitis, unspecified F17.210 Nicotine dependence, cigarettes, uncomplicated PROCEDURES DOCTOR NAME DATE NOTE: The code number assigned matches the documented diagnosis and / or procedure in the patient's chart. However, the narrative phrase printed from the coding software may appear abbreviated, or result in slightly different terminology. Coded By: ANTHONY GONZALEZ Date Saved: 08/02/2015 12:21 pm Source: Wi3 Document Id: [id number] Miscellaneous - Devi Raza R.N. - 07/21/2015 2:42 AM CDT Valuables/Belongings Valuables/Belongings Entered On: 07/21/2015 2:42 CDT Performed On: 07/21/2015 2:42 CDT by DEVI RAZA RN Valuables/Belongings Belongings Sent Home With : pt DEVI RAZA RN - 07/21/2015 2:42 CDT Source: Wi3 Document Id: [id number] CDT!3 documented in this encounter Plan of Treatment Not on filedocumented as of this encounter Procedures Procedure Name Priority Date/Time Associated Diagnosis Comme nts HEPATIC FUNCTION Routine 07/21/2015 1:09 AM Resul ts for this PANEL, S CDT procedure are i n the results section. AUTOMATED Routine 07/21/2015 1:09 AM Results f or this DIFFERENTIAL, B CDT procedure ar e in the results section. D-DIMER, P Routine 07/21/2015 1:09 AM Results f or this CDT procedure are i n the results section. CBC WITH Routine 07/21/2015 1:09 AM Results f or this DIFFERENTIAL, B CDT procedure ar e in the results section. LIPASE, S/P Routine 07/21/2015 1:09 AM Results f or this CDT procedure are i n the results section. LACTATE, B/P Routine 07/21/2015 1:09 AM Results f or this CDT procedure are i n the results section. BASIC METABOLIC Routine 07/21/2015 1:09 AM Result s for this PANEL, S/P CDT procedure are i n the results section. ECG Routine 07/21/2015 12:27 AM Results for this CDT procedure are i n the results section. DX CHEST AP OR PA Routine 07/21/2015 12:23 AM Res ults for this AND LATERAL 2 VIEWS CDT procedur e are in the results section. documented in this encounter Results (ABNORMAL) Automated Differential (07/21/2015 1:09 AM CDT) Patholo gist Method Time Signature Absolute 8.07 (H) 1.70 - POWERCHART Neutrophils 7.00 109L Lymphocytes 3.57 (H) 0.90 - POWERCHART 2.90 X109L Monocytes 0.76 0.30 - POWERCHART 0.90 X109L Eosinophils 0.27 0.05 - POWERCHART 0.50 X109L Absolute 0.04 0.00 - POWERCHART Basophil 0.30 X109L Specimen Anatomical Collection Method Collection Time Receive d Time (Source) Location / / Volume Laterality Blood 07/21/2015 1:09 AM 6 1:09 CDT AM CDT Mimi Hillman M.D., M.B.A. LAB BLOOD ADD-ON Performing Organization Address City/[facility] Phon e Number POWERCHART D-Dimer (07/21/2015 1:09 AM CDT) P athologist Signature D-Dimer, P <0.27 <=0.50 POWERCHART [id number] Comment: Results of this test should always be in terpreted in conjunction with the patient's medical history, clinical presentation and other findings. DVT and PE clinical diagnosis should not be based on the D-Dimer result alone. The measurement of D-Dimer should not be used as an aid in the diagnosis of VTE, in patients with: -Therapeutic dose anticoagulant therapy for >24 hours -Fibrinolytic therapy within previous 7 days -Trauma or surgery within previous 4 wee ks -Disseminated malignancies -Aortic aneurysm -Sepsis, severe infections, pneumonia, s evere skin infections -Liver cirrhosis - Specimen (Source) Anatomical Collection Method Collection Time Re ceived Time Location / / Volume Laterality Blood 07/21/2015 1:09 AM CDT Mimi Hillman M.D., M.B.A. LAB BLOOD ADD-ON Performing Organization Address City/[facility] Phon e Number POWERCHART (ABNORMAL) CBC with Differential (07/21/2015 1:09 AM CDT) Analysis Performed At Patho logist Time Signature Leukocytes 12.7 (H) 3.4 - 10.5 POWERCHART X109L Erythrocytes 4.37 3.90 - POWERCHART 5.03 [id number] Hemoglobin 13.3 12.0 - POWERCHART 15.5 GDL Hematocrit 40.4 34.9 - POWERCHART 44.5 MCV 92.4 82.0 - POWERCHART 98.0 FL HX RDW 13.3 11.9 - POWERCHART 15.5 Platelet Count 267 150 - 450 POWERCHART X109L Specimen (Source) Anatomical Collection Method Collection Time Re ceived Time Location / / Volume Laterality Blood 07/21/2015 1:09 AM CDT Mimi Hillman M.D., M.B.A. LAB BLOOD ADD-ON Performing Organization Address City/State/[facility] Code Phon e Number POWERCHART Lipase (07/21/2015 1:09 AM CDT) P athologist Signature Lipase, S 21 13 - 60 UL POWERCHART Comment: Reference values have not been established for patients that are <18 years of age. Specimen (Source) Anatomical Collection Method Collection Time Re ceived Time Location / / Volume Laterality Blood 07/21/2015 1:09 AM CDT Mimi Hillman M.D., M.B.A. LAB BLOOD ADD-ON Performing Organization Address City/State/[facility] Code Phon e Number POWERCHART Hepatic Function Panel (07/21/2015 1:09 AM CDT) P athologist Signature Alanine 17 7 - 45 UL POWERCHART Amniotransferas e, LD Comment: Reference values have not been established for patients that are less than 12 months of age. Albumin, S 3.8 3.5 - 5.2 GDL POWERCHART Comment: Reference values have not been established for patients that are less than 12 months of age. Alkaline Phosphatase, S 56 35 - 105 UL SMOOTH RCHART Aspartate Aminotransferase (AST), S 12 8 - 43 UL POWERCHART Comment: Reference values have not been established for patients that are less than 12 months of age. Bilirubin, Direct, S <0.2 0.0 - 0.3 MGDL SMOOTH RCHART Comment: Reference values have not been established for patients that are less than 12 months of age. Bilirubin, Total, S 0.5 <=1.2 MGDL POWERCHAR T Comment: No estab ref range for patients 84 hours to 1 month of age. Total Protein, S 7.4 6.4 - 8.3 GDL POWERCHAR T Comment: Reference values have not been established for patients that are less than 12 months of age. Specimen (Source) Anatomical Collection Method Collection Time Re ceived Time Location / / Volume Laterality Blood 07/21/2015 1:09 AM CDT Mimi Hillman M.D., M.B.A. LAB BLOOD ADD-ON Performing Organization Address City/State/ZIP Code Phon e Number POWERCHART Lactate (07/21/2015 1:09 AM CDT) P athologist Signature Lactate, P 0.6 0.5 - 2.2 POWERCHART MMOLL Specimen (Source) Anatomical Collection Method Collection Time Re ceived Time Location / / Volume Laterality Blood 07/21/2015 1:09 AM CDT Mimi Hillman M.D., M.B.A. LAB BLOOD NON ADD-ON Performing Organization Address City/State/ZIP Code Phon e Number POWERCHART BMP (Basic Metabolic Panel) (07/21/2015 1:09 AM CDT) P athologist Signature Sodium, S 138 135 - 145 POWERCHART MMOLL Comment: Reference values have not been established for patients that are less than 12 months of age. Potassium, S 4.3 3.5 - 5.1 MMOLL POWERCHART Comment: Reference values have not been established for patients that are less than 12 months of age. Chloride, S 103 98 - 107 MMOLL POWERCHART Comment: Reference values have not been established for patients that are less than 12 months of age. CO2 Total 25 22 - 29 MMOLL POWERCHART Comment: Reference values have not been established for patients that are less than 12 months of age. BUN (Blood Urea Nitrogen), S 16 6 - 24 MGDL POWERCHART Creatinine 0.67 0.51 - 0.95 MGDL POWERCHART Comment: Reference values have not been establish ed for patients that are <12 months of age. ESTIMATED GFR >60 mL/min/BSA Note: eGFR results will not be calculate d for patients <18 Calcium, Total, S 9.0 8.6 - 10.3 MGDL POWERC NANCE Anion Gap 10 7 - 15 MMOLL POWERCHART Comment: Less than 2 years- No establish ed reference range. HXeGFR (MDRD) >60 >=60 [id number] POWERCHART eGFR Black/ >60 >=60 [id number] POWERCHART Glucose 102 70 - 139 MGDL POWERCHART Comment: ADA [...] Time Location / / Volume Laterality Blood 07/21/2015 1:09 AM CDT Mimi Hillman M.D., M.B.A. LAB BLOOD ADD-ON Performing Organization Address City/State/ZIP Code Phon e Number POWERCHART ECG 12 Lead (07/21/2015 12:27 AM CDT) Specimen (Source) Anatomical Collection Method Collection Time Re ceived Time Location / / Volume Laterality 07/21/2015 12:27 AM CDT [facility] - 07/21/2015 12:27 AM CDT Test Reason : PAIN Blood Pressure : / mmHG Vent. Rate : 097 BPM ? Atrial Rate : 097 BPM ?? P-R Int : 172 ms ?QRS D ur : 078 ms ?QT Int : 366 ms ? P-R-T Axe s : 006 028 009 degrees ?? QTc Int : 464 ms Normal sinus rhythm Normal ECG When compared with ECG of 15-JUL-2015 05 :34, No significant change was found Referred By: MIMI HILLMAN ? Confirmed By:DEL SHELDON MD Procedure Note Provider, Lupe Villanueva - 09/17/2016F ormatting of this note might be different from the original. Test Reason : PAIN Blood Pressure : / mmHG Vent. Rate : 097 BPM Atrial Rate : 097 B PM P-R Int : 172 ms QRS Dur : 078 ms QT Int : 366 ms P-R-T Axes : 006 028 00 9 degrees QTc Int : 464 ms Normal sinus rhythm Normal ECG When compared with ECG of 15-JUL-2015 05 :34, No significant change was found Referred By: MIMI HILLMAN Confirmed By:Krista SHELDON MD Del Sheldon M.D., M.B. ECG ORDERABLES Performing Organization Address City/State/ZIP Code Phon e Number [facility] [address] [place] [id number] DX Chest Anterior Posterior or Posterior Anterior and Lateral 2 Views (07/21/2015 12:23 AM CDT) Anatomical Region Laterality Modality Chest N/A Radiographic Imaging Specimen (Source) Anatomical Collection Method Collection Time Re ceived Time Location / / Volume Laterality 07/21/2015 12:23 AM CDT Addenda Addendum by ProviderKay M.D. o n 07/21/2015 12:23 AM CDT RAD^^^AU XR Chest 2 Views 07/21/2015 00:23:34 Impressions 07/21/2015 12:31 PM CDT Negative. Narrative 07/21/2015 12:31 PM CDT EXAM: XR Chest 2 Views INDICATION: chest pain AGE: 30 years-old COMPARISON: 07/15/15 FINDINGS: Normal heart size. ??Lungs are clear. Procedure Note Aidan Biswas M.D. / ProviderKay M.D. - 09/04/2016 EXAM: XR Chest 2 Views INDICATION: chest pain AGE: 30 years-old COMPARISON: 07/15/15 FINDINGS: Normal heart size. Lungs are c lear. IMPRESSION: Negative. Lucy Pirnce(R)(CT), Suresh(R) IMG DIAGNOSTIC I MAGING PROCEDURES documented in this encounter Visit Diagnoses Not on filedocumented in this encounter
--- OUTSIDE RECORDS SUMMARY | 2022-02-03 23:57 | XMS_ITS | Encounter Summary ---
:1985 Author Organization [facility] Address [address] [place] [address] Care Team Providers Name Role Phone Unavailable Primary Care Provider Unavailable Encounter Details Date Type Department Care Team Description 07/17/2015 Hospital Encounter HX RST EMERGENCY Provider, Historic al TRAUMA UNI Social History Tobacco Use Types Packs/Day Years Used Date Smoking Tobacco: Never Assessed Sex Assigned at Date Recorded Not on file documented as of this encounter Plan of Treatment Not on filedocumented as of this encounter Visit Diagnoses Not on filedocumented in this encounter
--- OUTSIDE RECORDS SUMMARY | 2022-02-03 23:57 | XMS_ITS | Encounter Summary ---
:1985 Author Organization [facility] Address [address] [place] [address] Care Team Providers Name Role Phone Unavailable Primary Care Provider Unavailable Encounter Details Date Type Department Care Team Description 07/20/2015 Hospital Encounter HX [facility], M.D. [address] [place] [phone] (Wo rk) Social History Tobacco Use Types Packs/Day Years Used Date Smoking Tobacco: Never Assessed Sex Assigned at Date Recorded Not on file documented as of this encounter Last Filed Vital Signs Vital Sign Reading Time Taken Comments Blood Pressure 117/81 07/20/2015 8:52 AM CDT Pulse 116 07/20/2015 8:52 AM CDT Temperature - - Respiratory Rate 16 07/20/2015 8:52 AM CDT Oxygen Saturation - - Inhaled Oxygen Concentration - - Weight - - Height - - Body Mass Index - - documented in this encounter Discharge Summaries Sangita Allen, R.N. - 07/20/2015 9:58 AM CDT ED Discharge Instructions [facility] [address] [facility] [place] [address] Name: SILVIA BLANCHARD Date of : 1985 12:00 AM Visit Date: 07/20/2015 8:32 AM [facility] Number: [id number] Address: [address] [place] [phone] Primary Care Provider: SOFIE VÁZQUEZ MD IMPORTANT: [facility] in [place] would like to thank you for allowing us to assist youwith your healthcare needs. The following includes patient education materials and information regarding your injury/illness. Diagnosis: Follow-Up Instructions: With: Address: When: SOFIE VÁZQUEZ [address] [place] [phone] Business (1) Within As Needed Comments: drink fluids Salt water gargles Tylenol or motrin as neede for pain Follow up as needed return if concerns Your Upcoming Appointments: Date Time [...] ?? Muffled voice ?? New rash ?? [id number] [facility]ie [facility], [address] [place] [address], [place] [address]. All rights reserved. This information is not [...] if you dont have one. Go to [email or web address] and click on Create Your Account. Then, follow the directions to complete the online form. Youll be asked for your [facility] number which you can find at the top of this document. ED Tests and Procedures: Order Status CBC (includes Auto Differential) Completed Mononucleosis Screen Completed Automated Diff-5 Part Completed Discharge Prescriptions & Home Medications: Medication/Strength Dose Route Frequency Indications/Special Instructions/Comments/Notes [id number] Prescription (Work excuse) See Instructions Please excuse [...] document has images extracted. Please consider using [employer] for all your patient education needs. [facility] Document Id: [id number] Sangita Allen R.N. - 07/20/2015 9:58 AM CDT ED Depart Summary [facility] Emergency Department / Urgent Care Clinical Discharge Summary PERSON INFORMATION Name SILVIA BLANCHARD Age 30 Years 1985 12:00 AM Sex Female Language Maltese PCP SOFIE VÁZQUEZ MD Marital Status Visit Id Visit Reason Throat pain - Adult; SORE THROAT Specialty Enc Type Emergency Med Service Emergency Medicine Referred by Track Group [facility] ED/UC Discharge 07/20/2015 9:54 AM Tracking Id [id number] Checkout 07/20/2015 9:54 AM Checkin 07/20/2015 8:32 AM Acuity 4 -Less Urgent Dispo Type * Discharged to Home or Self Care Arrival 07/20/2015 8:32 AM Reg Status Complete LOS 000 01:22 Address: [address] [place], [place] [phone] Comment: PROVIDER INFORMATION Provider Role Provider Contact Time SANGITA ALLEN RN ED Nurse 07/20/15 08:43 LANE SHI MD ED Provider 07/20/15 08:48 DIAGNOSIS Comment: PATIENT EDUCATION INFORMATION Instructions: PHARYNGITIS, Viral Follow up: With: Address: When: SOFIE VÁZQUEZ [address] [place] [phone] Business (1) Within As Needed Comments: drink fluids Salt water gargles Tylenol or motrin as neede for pain Follow up as needed return if concerns Source: [employer] Document Id: [id number] documented in this encounter ED Notes Sangita Allen R.N. - 07/20/2015 9:54 AM CDT ED Disposition Summary ED Disposition Summary Entered On: 07/20/2015 9:57 CDT Performed On: 07/20/2015 9:54 CDT by SANGITA ALLEN RN ED Disposition Summary Present in Room During Exam/Procedure : Alone Mode of Discharge : Ambulatory Transportation : Private vehicle Discharge From ED With : Home Med List Printed Discharge Instructions Given to Patient : Yes Patient Status at Discharge from ED : Unchanged SANGITA ALLEN RN - 07/20/2015 9:57 CDT Source: [employer] Document Id: [id number] CDT!8 Sangita Allen R.N. - 07/20/2015 9:54 AM CDT ED Pain Assessment ED Pain Assessment Entered On: 07/20/2015 9:58 CDT Performed On: 07/20/2015 9:54 CDT by SANGITA ALLEN RN Pain Assessment Pain Symptoms : Yes SANGITA ALLEN RN - 07/20/2015 9:57 CDT Source: [employer] Document Id: [id number] CDT!3 Sangita Allen R.N. - 07/20/2015 9:24 AM CDT ED Primary Assessment Document Has Been Updated ED Primary Assessment Entered On: 07/20/2015 9:26 CDT Performed On: 07/20/2015 9:24 CDT by SANGITA ALLEN RN Reason For Visit (As Of: 07/20/2015 09:26:20 CDT) Problems(Active) No Chronic Problems (Cerner :NKP ) Name of Problem: No Chronic Problems ; Recorder: NATY XIE MD; Confirmation: Confirmed ; Classification: Medical ; Code: NKP ; Last Updated: 05/15/2013 16:30 WEAVER TIRE CORD; Life Cycle Date: 05/15/2013 ; Life Cycle Status: Active ; Vocabulary: Cerner Diagnoses(Active) Throat pain - Adult Date: 07/20/2015 ; Diagnosis Type: Reason For Visit ; Confirmation: Complaint of; Clinical Dx: Throat pain - Adult ; Classification: Medical ; Clinical Service: Emergency medicine ; Code: PNED ; Probability: 0 ; Diagnosis Code: [id number] Triage Chief Complaint Description : multiple sore throats recently. seen in /ED and [place]. sore throat returned. able to swallow her own secretions. breathing esay at r/a. pink in color. Information Given By : Patient Present in Room During Exam/Procedure : Alone Mode of Arrival ED : Ambulatory Track : Medical Languages : Maltese Patient Informed of Triage Location : Emergency department Treatments Prior to Arrival : None Are you ? : No Is Patient Female and 13-50 no hysterectomy : Yes Status : Patient denies SANGITA ALLEN RN - 07/20/2015 9:24 CDT Pain Assessment Pain Symptoms : Yes SANGITA ALLEN RN - 07/20/2015 9:24 CDT Pain Scale Pain Scale Verbal 0-10 : Open SANGITA ALLEN RN - 07/20/2015 9:24 CDT Pain Pain Assessment Grid Pain 1 Location : Throat SANGITA ALLEN RN - 07/20/2015 9:24 CDT DENNY DENNY Level 1 : No DENNY Level 2 : No DENNY Level 3 : One ROBALBERTO SANGITA Hickey RN - 07/20/2015 9:24 CDT DCP GENERIC CODE Tracking Acuity : 4 -Less Urgent Tracking Group : [facility] ED/ SANGITA ALLEN Ruperto RN - 07/20/2015 9:24 CDT Respiratory Airway : Patent Respirations : Unlabored Respiratory Pattern : Regular Oxygen Therapy : Room air SANGITA ALLEN RN - 07/20/2015 9:24 CDT Cardiovascular Heart Rhythm : Regular Skin Color : [place] Skin Description : Dry Skin Temperature : Warm ROBALBERTOSANGITA RN - 07/20/2015 9:24 CDT Neurological Last Well Time Known : Not applicable Level of Consciousness : Alert Orientation : Oriented x 3 Characteristics of Speech : Clear SANGITA ALLEN RN - 07/20/2015 9:24 CDT ED Psychosocial Affect/Behavior : Calm Domestic Abuse Concerns : None Behavioral Health Screen/Safety Assmt : No SANGITA ALLEN RN - 07/20/2015 9:24 CDT Gastrointestinal Nutrition ED : Adequate SANGITA ALLEN RN - 07/20/2015 9:24 CDT Musculoskeletal Fall Prevention Education Provided : Yes SANGITA ALLEN RN - 07/20/2015 9:24 CDT Social Habits Exposure to Tobacco Smoke : Patient smokes, Other: occ alcohol Smoking Status : Smoker, current status unknown Tobacco 2A : Yes Tobacco Use/Currently Using : Yes Tobacco Use/Last 30 Days : Yes Tobacco Use/Last 12 months : Yes Type : Cigarettes: Less than 20 per day Tobacco Use/Advised to Quit : Yes SANGITA ALLEN RN - 07/20/2015 9:24 CDT Alcohol Use Grid Alcohol Use : Yes Frequency : Occasionally SANGITA ALLEN RN - 07/20/2015 9:24 CDT Source: [employer] Document Id: [id number] CDT!64 Lane Shi M.D. - 07/20/2015 8:40 AM CDT Throat pain - Adult Patient: SILVIA BLANCHARD Age: 30 years Sex: Female : 1985 Author: LANE SHI MD Attachments: None Basic Information Time seen: Date & time 07/20/2015 08:50:00. History source: Patient. Arrival mode: Private vehicle. History limitation: None. Additional information: Chief Complaint from Nursing Triage Note : Chief Complaint Description 07/20/2015 8:36 CDT Chief Complaint Description sore throat for a couple wks, has been seen numeroustimes. Last time was sent to [place] because ENT was not available here. She did not see ENT in [place] on July 16, but was given a steroid shot that she said helped for 2 days . ISuzi, am scribing for and in the presence of, Lane Shi MD. History of Present Illness The patient presents with throat pain. The onset was 11 days ago. The course/duration of symptoms isconstant. Location: throat. The character of symptoms is pain. The degree at present is moderate. Associated symptoms: difficulty swallowing, denies fever and denies chills. Ms. Blanchard is a 30 year old female who presents to the ED for evaluation of throat pain. The patient has been experiencing throat pain for a 11 days. Patient has been seen numerous time in the ED. She was seen on July 09 and diagnosed with strep pharyngitis and was on antibiotics. The patient had a f ollow up on the next day and was advised to continue antibiotic. She was set to [place] on July 16, because ENT was not available in [place]. The patient notes that she did not see ENT, but was givena steroid shot and states that she felt better for 2 days before the pain returned. She notes that the days in between the 10th and 16th, she did not feel any relief and her pain was never lower than 6/10. The patient experiences some joint pain. She denies a fever and chills. Review of Systems Constitutional symptoms: No fever or no chills. ENMT symptoms: Sore throat. Cardiovascular symptoms: Negative except as documented in HPI. Gastrointestinal symptoms: Negative except as documented in HPI. Genitourinary symptoms: Negative except as documented in HPI. Musculoskeletal symptoms: Joint pain. Health Status Allergies: Allergic Reactions (Selected) NKA. Medications: (Selected) Prescriptions Prescribed Augmentin 875 mg-125 mg oral tablet: 1 tab(s), PO, 2xDay, for 10 day(s), 20 tab(s), 0 Refill(s) GoLYTELY oral powder for reconstitution: 240 mL, [...] PowerChart. Cytopathology, slides, cervical or vaginal (the Chicken System); manual screening under physician supervision.. ([id number]) in the week of 03/10/2004 at 18 Years. Comments: 04/18/2010 21:45 - CARMEN M[place]ALES Hx: [id number] - LAB-CYTOPATH, SM,D/V,TDS<3SM TECH 03/21/2013 17:41 - Contributor source changed to PowerChart.. Family history: No family history items have been selected or recorded.. Social history: Family/social situation: . Problem list: All Problems No Chronic Problems / NKP / Confirmed. Physical Examination Vital Signs: Time: 07/20/2015 08:52:00, oxygen saturation. General: Alert, no acute distress and hoarse voice. Skin: Warm and dry. Head: Normocephalic and atraumatic. Neck: Trachea midline. Eye: Pupils are equal, round and reactive to light and extraocular movements are intact. Ears, nose, mouth and throat: Throat: Bilateral, pharynx, erythema, no swelling. Respiratory: Respirations are non-labored. Musculoskeletal: Normal ROM. normal strength. no tenderness. no swelling. Neurological: Alert and oriented to person, place, time, and situation, No focal neurological deficit observed and normal speech observed. Lymphatics: No lymphadenopathy. Psychiatric: Cooperative and appropriate mood & affect. Medical Decision Making Differential Diagnosis:Viral pharyngitis, streptococcal pharyngitis, exudative pharyngitis, mononucleosis. Documents reviewed:Emergency department nurses' notes, emergency department records, prior records. Results review:Lab results : Lab View 07/20/2015 9:03 CDT Hgb 13.8 g/dL Hct 42.4 % WBC 12.0 x10(9)/L HI RBC 4.58 x10(12)/L MCV 92.6 fL RDW 13.6 % Platelet 292 x10(9)/L Neutro Absolute 7.59 10(9)/L HI Lymph Absolute 3.01 x10(9)/L HI Iron Absolute 1.12 x10(9)/L HI Eos Absolute 0.24 x10(9)/L Baso Absolute 0.03 x10(9)/L Mononucleosis Screen Review . Notes:her throat looks little red but I do not see any tonsillar swelling or uvular swelling. No neck masses. Her Iron is negative. I think she probably developed another viral pharngitis . advised to watch and see how things are. . Impression and Plan Diagnosis pharyngitis Plan Condition: Stable. Disposition: Discharged: to home. Patient was given the following educational materials: PHARYNGITIS, Viral. Follow up with: SOFIE VÁZQUEZ Within As Needed drink fluids Salt water gargles Tylenol or motrin as neede for pain Follow up as needed return if concerns. Counseled: Patient, Regarding diagnostic results, Regarding treatment plan, Patient indicated understanding of instructions. Electronically Signed By: LANE SHI MD On: 07/20/2015 11:28 AM Modified by and Electronically Signed by: SUZI CARMONA On: 07/20/2015 08:45 AM Source: [facility] POWERCHART Document Id: [id number]} Cynthia Harvey REmekaN. - 07/20/2015 8:36 AM CDT ED Triage Assessment Document Has Been Updated ED Triage Assessment Entered On: 07/20/2015 8:39 CDT Performed On: 07/20/2015 8:36 CDT by CYNTHIA HARVEY RN Reason For Visit (As Of: 07/20/2015 08:39:15 CDT) Problems(Active) No Chronic Problems (Cerner :NKP ) Name of Problem: No Chronic Problems ; Recorder: NATY XIE MD; Confirmation: Confirmed ; Classification: Medical ; Code: NKP ; Last Updated: 05/15/2013 16:30 WEAVER TIRE CORD; Life Cycle Date: 05/15/2013 ; Life Cycle Status: Active ; Vocabulary: Cerner Diagnoses(Active) Throat pain - Adult Date: 07/20/2015 ; Diagnosis Type: Reason For Visit ; Confirmation: Complaint of; Clinical Dx: Throat pain - Adult ; Classification: Medical ; Clinical Service: Emergency medicine ; Code: PNED ; Probability: 0 ; Diagnosis Code: [id number] Triage Chief Complaint Description : sore throat for a couple wks, has been seen numerous times. Last time was sent to [place] because ENT was not available here. She did not see ENT in [place] on July 16, but was given a steroid shot that she said helped for 2 days Information Given By : Patient Present in Room During Exam/Procedure : Alone Mode of Arrival ED : Ambulatory Track : Medical Languages : Maltese Patient Informed of Triage Location : Emergency department Treatments Prior to Arrival : None Are you ? : No Is Patient Female and 13-50 no hysterectomy : Yes Status : Patient denies CYNTHIA HARVEY RN - 07/20/2015 8:36 CDT Pain Assessment Pain Symptoms : Yes CYNTHIA HARVEY RN - 07/20/2015 8:36 CDT Pain Scale Pain Scale Verbal 0-10 : Open CYNTHIA HARVEY RN - 07/20/2015 8:36 CDT Pain Pain Assessment Grid Pain 1 Location : Throat Intensity : 6 Time Pattern : Acute, Intermittent Duration : 2 wks CYNTHIA HARVEY RN - 07/20/2015 8:36 CDT DENNY DCP GENERIC CODE Tracking Acuity : 4 -Less Urgent Tracking Group : [facility] ED/ CYNTHIA HARVEY RN - 07/20/2015 8:36 CDT Source: [employer] Document Id: [id number] CDT!28 documented in this encounter Miscellaneous Notes Miscellaneous - Conversion, Historical Provider Ser - 07/20/2015 9:54 AM CDT Coding Summary-Paper Based CODING DATE: 08/02/2015 FINAL [facility] STATUS: * Discharged to Home or Self Care PAYOR: Medicaid ADMIT DX: R07.0 Pain in throat REASON FOR VISIT DX: R07.0 Pain in throat FINAL DX: PRINCIPAL: J02.9 Acute pharyngitis, unspecified SECONDARY: F17.210 Nicotine dependence, cigarettes, uncomplicated PROCEDURES DOCTOR NAME DATE NOTE: The code number assigned matches the documented diagnosis and / or procedure in the patient's chart. However, the narrative phrase printed from the coding software may appear abbreviated, or result in slightly different terminology. Coded By: SELMA STEINBERG Date Saved: 08/02/2015 07:59 am Source: [facility] POWERCHART Document Id: [id number] documented in this encounter Plan of Treatment Not on filedocumented as of this encounter Procedures Procedure Name Priority Date/Time Associated Comments Diagnosis POCT MONONUCLEOSIS Routine 07/20/2015 9:03 AM Res ults for this SCREEN CDT procedure are i n the results section. AUTOMATED Routine 07/20/2015 9:03 AM Results f or this DIFFERENTIAL, B CDT procedure ar e in the results section. CBC WITH DIFFERENTIAL, Routine 07/20/2015 9:03 AM Results for this B CDT procedure are i n the results section. documented in this encounter Results (ABNORMAL) Automated Differential (07/20/2015 9:03 AM CDT) Patholo gist Method Time Signature Absolute 7.59 (H) 1.70 - POWERCHART Neutrophils 7.00 109L Lymphocytes 3.01 (H) 0.90 - POWERCHART 2.90 X109L Monocytes 1.12 (H) 0.30 - POWERCHART 0.90 X109L Eosinophils 0.24 0.05 - POWERCHART 0.50 X109L Absolute 0.03 0.00 - POWERCHART Basophil 0.30 X109L Specimen Anatomical Collection Method Collection Time Receive d Time (Source) Location / / Volume Laterality Blood 07/20/2015 9:03 AM 6 9:[address] Shi M.D. LAB BLOOD ADD-ON Performing Organization Address City/State/ZIP Code Phon e Number POWERCHART (ABNORMAL) CBC with Differential (07/20/2015 9:03 AM CDT) Analysis Performed At [facility] logist Time Signature Leukocytes 12.0 (H) 3.4 - 10.5 POWERCHART X109L Erythrocytes 4.58 3.90 - POWERCHART 5.03 [id number] Hemoglobin 13.8 12.0 - POWERCHART 15.5 GDL Hematocrit 42.4 34.9 - POWERCHART 44.5 MCV 92.6 82.0 - POWERCHART 98.0 FL HX RDW 13.6 11.9 - POWERCHART 15.5 Platelet Count 292 150 - 450 POWERCHART X109L Specimen (Source) Anatomical Collection Method Collection Time Re ceived Time Location / / Volume Laterality Blood 07/20/2015 9:[address] Shi M.D. LAB BLOOD ADD-ON Performing Organization Address City/State/[facility] Code Phon e Number POWERCHART Mononucleosis Screen, POCT (07/20/2015 9:03 AM CDT) [facility] gist Method Time Signature Infectious POWERCHART Iron Test, S HXFinal Negative POWERCHART HXFinal Reference: POWERCHART Negative Specimen (Source) Anatomical Collection Method Collection Time Re ceived Time Location / / Volume Laterality Blood 07/20/2015 9:[address] Shi M.D. LAB POCT ORDERABLES-MANUAL Performing Organization Address City/State/[facility] Code Phon e Number POWERCHART documented in this encounter Visit Diagnoses Not on filedocumented in this encounter
--- OUTSIDE RECORDS SUMMARY | 2022-02-03 23:57 | XMS_ITS | Encounter Summary ---
:1985 Author Organization [facility] Address [address] [place] [address] Care Team Providers Name Role Phone Unavailable Primary Care Provider Unavailable Encounter Details Date Type Department Care Team Description 07/01/2015 Hospital Encounter HX [facility] Griffin Ann M.D. [address] [place] [phone] (Wo rk) Social History Tobacco Use Types Packs/Day Years Used Date Smoking Tobacco: Never Assessed Sex Assigned at Date Recorded Not on file documented as of this encounter Last Filed Vital Signs Vital Sign Reading Time Taken Comments Blood Pressure 127/72 07/01/2015 6:18 AM SWEET GOODS MACHINE OPERATOR Pulse 94 07/01/2015 6:18 AM SWEET GOODS MACHINE OPERATOR Temperature - - Respiratory Rate 18 07/01/2015 6:18 AM SWEET GOODS MACHINE OPERATOR Oxygen Saturation - - Inhaled Oxygen Concentration - - Weight - - Height - - Body Mass Index - - documented in this encounter Discharge Summaries Yamini Cerda R.N. - 07/01/2015 7:46 AM CST ED Discharge Instructions [facility] [address] [place] [id number] Name: SILVIA MAY Date of : 1985 12:00 AM Visit Date: 07/01/2015 6:09 AM [facility] Number: [phone] Address: [address] [place] [address] Primary Care Provider: SOFIE VÁZQUEZ MD IMPORTANT: [facility] in [place] would like to thank you for allowing us to assist youwith your healthcare needs. The following includes patient education materials and information regarding your injury/illness. Diagnosis: Vertigo NOS Follow-Up Instructions: With: Address: When: Return to Emergency Department Within As Needed Comments: If symptoms worsen.AT ANYTIME With: Address: When: Follow Up with Primary Care Within As Needed Comments: Call for follow up appointment. 4-5 DAYS FOR TEST FOR CURE URINARY TRACT INFECTION With: Address: When: SOFIE VÁZQUEZ [address] [place] [phone] Business (1) Within As Needed Your Upcoming Appointments: Date Time Location Provider No Appointments found Patient Education Materials: 143 Sulfamethoxazole, Trimethoprim Oral tablet What is this medicine? SULFAMETHOXAZOLE; TRIMETHOPRIM or SMX-TMP (suhl fuh meth OK elo zohl; trye METH oh prim) is a combination of a sulfonamide antibiotic and a second antibiotic, trimethoprim. It is used to treat or prevent certain kinds of bacterial infections. It will not work for colds, flu, or other viral infections. This medicine may be used for other purposes; ask your health care provider or pharmacist if you have questions. What should I tell my health care provider before I take this medicine? They need to know if you have any of these conditions: ?? anemia ?? asthma ?? being treated with anticonvulsants ?? if you frequently drink alcohol containing drinks ?? kidney disease ?? liver disease ?? low level of folic acid or aqsynja-4-nvuwyrsvv dehydrogenase ?? poor nutrition or malabsorption ?? porphyria ?? severe allergies ?? thyroid disorder ?? an unusual or allergic reaction to sulfamethoxazole, trimethoprim, sulfa drugs, other medicines, foods, dyes, or preservatives ?? or trying to get ?? breast-feeding How should I use this medicine? Take this medicine by mouth with a full glass of water. Follow the directions on the prescription label. Take your medicine at regular intervals. Do not take it more often than directed. Do not skip doses or stop your medicine early. Talk to your ham sawyer regarding the use of this medicine in children. Special care may be needed. This medicine has been used in children as young as 2 months of age. Overdosage: If you think you have taken too much of this medicine contact a poison control center [facility] room at once. NOTE: This medicine is only for you. Do not share this medicine with others. What if I miss a dose? If you miss a dose, take it as soon as you can. If it is almost time for your next dose, take only that dose. Do not take double or extra doses. What may interact with this medicine? Do not take this medicine with any of the following medications: ?? aminobenzoate potassium ?? dofetilide ?? metronidazole This medicine may also interact with the following medications: ?? CASIMIRO inhibitors like benazepril, enalapril, lisinopril, and ramipril ?? cyclosporine ?? digoxin ?? diuretics ?? indomethacin ?? medicines for diabetes ?? methenamine ?? methotrexate ?? phenytoin ?? potassium supplements ?? pyrimethamine ?? sulfinpyrazone ?? tricyclic antidepressants ?? warfarin This list may not describe all possible interactions. Give your health care provider a list of all the medicines, herbs, non-prescription drugs, or dietary supplements you use. Also tell them if you smoke, drink alcohol, or use illegal drugs. Some items may interact with your medicine. What should I watch for while using this medicine? Tell your doctor or health childcare center director if your symptoms do not improve. Drink several glasses of water a day to reduce the risk of kidney problems. Do not treat diarrhea with over the counter products. Contact your doctor if you have diarrhea that lasts more than 2 days or if it is severe and watery. This medicine can make you more sensitive to the sun. Keep out of the sun. If you cannot avoid beingin the sun, wear protective clothing and use a sunscreen. Do not use sun lamps or tanning beds/booths. What side effects may I notice from receiving this medicine? Side effects that you should report to your doctor or health childcare center director as soon as possible: ?? allergic reactions like skin rash or hives, swelling of the face, lips, or tongue ?? breathing problems ?? fever or chills, sore throat ?? irregular heartbeat, chest pain ?? joint or muscle pain ?? pain or difficulty passing urine ?? red pinpoint spots on skin ?? redness, blistering, peeling or loosening of the skin, including inside the mouth ?? unusual bleeding or bruising ?? unusually weak or tired ?? yellowing of the eyes or skin Side effects that usually do not require medical attention (report to your doctor or health childcare center director if they continue or are bothersome): ?? diarrhea ?? dizziness ?? headache ?? loss of appetite ?? nausea, vomiting ?? nervousness This list may not describe all possible side effects. Call your doctor for medical advice about sideeffects. You may report side effects to FDA at 6-120-ZTE-5470. Where should I keep my medicine? Keep out of the reach of children. Store at room temperature between 20 to 25 degrees C (68 to 77 degrees F). Protect from light. Throwaway any unused medicine after the expiration date. NOTE:This sheet is a summary. It may not cover all possible information. If you have questions aboutthis medicine, talk to your doctor, pharmacist, or health care provider. Copyright?? 2013 Gold Standard Benign Positional Vertigo The inner ear is located behind the middle ear. It is a part of the balance center of the body. It contains small calcium particles within fluid filled canals (semi-circular canals). These particles can move out of position as a result of aging, head trauma or disease of the inner ear. Once that happens, movement of the head into certain positions may cause the particles to stimulate the inner ear and create the feeling of vertigo. Vertigo is a false feeling of motion (as if you or the room is spinning). A vertigo attack may causesudden nausea, vomiting and heavy sweating. Severe vertigo causes a loss of balance and may result in falling. During an attack of vertigo, head movement and body position changes will worsen symptoms. An episode of vertigo may last seconds, minutes or hours. Once you are over the first episode of vertigo, it may never return. Sometimes symptoms recur off and on over several weeks or longer. Home Care: ?? If symptoms are severe, rest quietly in bed. Change positions slowly. There is usually one position that will feel best, such as lying on one side or lying on your back with your head slightly raised on pillows. ?? Do not drive or work with dangerous machinery for one week after symptoms disappear, in case of asudden return of symptoms. ?? Take medicine as prescribed to relieve your symptoms. Unless another medicine was prescribed for nausea, vomiting and vertigo, you may use ttjd-bdz-ebaespt motion sickness pills, such as meclizine (Bonine, Bonamine, Antivert) or dimenhydrinate (Dramamine). Follow Up with your doctor or as directed by our staff. Report any persistent ringing in the ear or hearing loss to your doctor. [NOTE: If you had a CT or MRI scan, it will be reviewed by a specialist. You will be notified of anynew findings that may affect your care.] Get Prompt Medical Attention if any of the following occur: ?? Worsening of vertigo not controlled by the medicine prescribed ?? Repeated vomiting not controlled by the medicine prescribed ?? Increased weakness or fainting ?? Severe headache or unusual drowsiness or confusion ?? Weakness of an arm or leg or one side of the face ?? Difficulty with speech or vision ?? Seizure ?? [phone] [facility], [address] [place] [address], [place] [address]. All rights reserved. This information is not intended as a substitute for professional medical care. Always follow your healthcare professional's instructions. Bladder Infection, Female (Adult) A bladder infection (cystitis or UTI) usually causes a constant urge to urinate and a burning when passing urine. Urine may be cloudy, smelly or dark. There may be pain in the lower abdomen. A bladder infection occurs when bacteria from the vaginal area enter the bladder opening (urethra). This can occur from sexual intercourse, wearing tight clothing, dehydration and other factors. Home Care: ?? Drink lots of fluids (at least 6-8 glasses a day, unless you must restrict fluids for other medical reasons). This will force the medicine into your urinary system and flush the bacteria out of yourbody. ?? Avoid sexual intercourse until your symptoms are gone. ?? Avoid caffeine, alcohol and spicy foods. These can irritate the bladder. ?? A bladder infection is treated with antibiotics. You may also be given Pyridium (generic = phenazopyridine) to reduce the burning sensation. This medicine will cause your urine to become a bright orange color. The orange urine may stain clothing. You may wear a pad or panty-liner to protect clothing. Preventing Future Infections: ?? Always wipe from front to back after a bowel movement. ?? Keep the genital area clean and dry. ?? Drink plenty of fluids each day to avoid dehydration. ?? Both sexual partners should wash before intercourse. ?? Urinate right after intercourse to flush out the bladder. ?? Wear cotton underwear and cotton-lined panty hose; avoid tight-fitting pants. ?? If you are on control pills and are having frequent bladder infections, discuss with your doctor. Follow Up: Return to this facility or see your doctor if ALL symptoms are not gone after three days of treatment. Get Prompt Medical Attention if any of the following occur: ?? Fever of 100.4?F (38?C) or higher, or as directed by your healthcare provider ?? No improvement by the third day of treatment ?? Increasing back or abdominal pain ?? Repeated vomiting; unable to keep medicine down ?? Weakness, dizziness or fainting ?? Vaginal discharge ?? Pain, redness or swelling in the labia (outer vaginal area) ?? [phone] [facility], [address] [place] [address], [place] [address]. All rights reserved. This information is not [...] if you dont have one. Go to [email or web address] and click on Create Your Account. Then, follow the directions to complete the online form. Youll be asked for your [facility] number which you can find at the top of this document. ED Tests and Procedures: Order Status Beta hCG Qualitative Urine Completed UR % Dysmorphic RBC Completed Urinalysis with Culture if Indicated Completed Culture Urine Ordered Discharge Prescriptions & Home Medications: Medication/Strength Dose Route Frequency Indications/Special Instructions/Comments/Notes ondansetron (Zofran ODT 4 mg oral tablet, disintegrating) 4 mg Oral every 8 hours for 1 Days sulfamethoxazole-trimethoprim (Bactrim DS 800 mg-160 mg oral tablet) 1 tab(s) Oral two times a day for 5 Days ondansetron (ondansetron 4 mg oral tablet, disintegrating) 4 mg Oral every 6 hours as needed for Nausea/vomiting PXYIS DISCHARGE PACK Misc Prescription (work excuse) See Instructions please excuse [...] document has images extracted. Please consider using [employer] for all your patient education needs. Source: [employer] POWERCHART Document Id: [id number] T GOODS MACHINE OPERATOR Yamini Cerda R.N. - 07/01/2015 7:46 AM CST ED Depart Summary [facility] Emergency Department / Urgent Care Clinical Discharge Summary PERSON INFORMATION Name SILVIA MAY Age 30 Years 1985 12:00 AM Sex Female Language Belarusian PCP SOFIE VÁZQUEZ MD Marital Status Single Visit Id Visit Reason Vertigo - recurrent; dizziness and nausea Specialty Enc Type Emergency Med Service Emergency Medicine Referred by Track Group [facility] ED/UC Discharge 07/01/2015 7:16 AM Tracking Id [id number] Checkout 07/01/2015 7:16 AM Checkin 07/01/2015 6:09 AM Acuity 4 -Less Urgent Dispo Type * Discharged to Home or Self Care Arrival 07/01/2015 6:09 AM Reg Status Complete LOS 000 01:07 Address: [address] [place] [address] Comment: PROVIDER INFORMATION Provider Role Provider Contact Time BLANCHE RUIZ MD ED Provider 07/01/15 06:11 DEL FARFAN SENSITOMETRIST Nurse 07/01/15 06:11 SANDRO SERRATO ED Hr Analyst 07/01/15 06:11 DONNIE MEDRANO ED Hr Analyst 07/01/15 07:02 DIAGNOSIS Vertigo NOS Comment: PATIENT EDUCATION INFORMATION Instructions: Sulfamethoxazole, Trimethoprim Oral tablet; BENIGN POSITIONAL VERTIGO; BLADDER INFECTION, Female (Adult) Follow up: With: Address: When: Return to Emergency Department Within As Needed Comments: If symptoms worsen.AT ANYTIME With: Address: When: Follow Up with Primary Care Within As Needed Comments: Call for follow up appointment. 4-5 DAYS FOR TEST FOR CURE URINARY TRACT INFECTION With: Address: When: SOFIE VÁZQUEZ [address] [place] [phone] Business (1) Within As Needed Source: [facility] POWERCHART Document Id: [id number] T GOODS MACHINE OPERATOR documented in this encounter ED Notes Yamini Cerda R.N. - 07/01/2015 7:16 AM CST ED Disposition Summary ED Disposition Summary Entered On: 07/01/2015 7:45 SWEET GOODS MACHINE OPERATOR Performed On: 07/01/2015 7:16 SWEET GOODS MACHINE OPERATOR by YAMINI CERDA RN ED Disposition Summary Present in Room During Exam/Procedure : Alone Mode of Discharge : Ambulatory Transportation : Private vehicle Printed Discharge Instructions Given to Patient : Yes Patient Status at Discharge from ED : Improved YAMINI CERDA RN - 07/01/2015 7:45 SWEET GOODS MACHINE OPERATOR Source: [employer] Document Id: [id number] SWEET GOODS MACHINE OPERATOR!7 T GOODS MACHINE OPERATOR Yamini Cerda R.N. - 07/01/2015 7:16 AM CST ED Pain Assessment ED Pain Assessment Entered On: 07/01/2015 7:46 SWEET GOODS MACHINE OPERATOR Performed On: 07/01/2015 7:16 SWEET GOODS MACHINE OPERATOR by YAMINI CERDA RN Pain Assessment Pain Symptoms : No YAMINI CERDA RN - 07/01/2015 7:45 SWEET GOODS MACHINE OPERATOR Source: [employer] Document Id: [id number] SWEET GOODS MACHINE OPERATOR!3 T GOODS MACHINE OPERATOR Blanche Ruiz M.D. - 07/01/2015 6:31 AM CST Vertigo - recurrent Patient: SILVIA MAY Age: 30 years Sex: Female : 1985 Author: BLANCHE RUIZ MD Attachments: None Basic Information Additional information: Chief Complaint from Nursing Triage Note : Chief Complaint Description 07/01/2015 6:18 SWEET GOODS MACHINE OPERATOR Chief Complaint Description 30 y/o female persents to ED d/t complaints of nausea and vertigo, Patient states s/s have been on-going all night with no inprovment noted, Patient alsonotes to large fluid intake last night, No injuries noted . History of Present Illness The patient presents with nausea/ dizziness. The onset was 8 hours ago. The course/duration of symptoms is fluctuating in intensity. The degree at onset was minimal. The degree at maximum was moderate.The degree at present is minimal. Risk factors consist of ear problems. Review of Systems Constitutional symptoms: Negative except as documented in HPI. Skin symptoms: Negative except as documented in HPI. Eye symptoms: Negative except as documented in HPI. ENMT symptoms: Negative except as documented in HPI. Respiratory symptoms: Negative except as documented in HPI. Cardiovascular symptoms: Negative except as documented in HPI. Gastrointestinal symptoms: Nausea. Genitourinary symptoms: Negative except as documented in HPI. Musculoskeletal symptoms: Negative except as documented in HPI. Neurologic symptoms: Dizziness. Additional review of systems information: All other systems reviewed and otherwise negative. Health Status Allergies: No known allergies. Medications: (Selected) Prescriptions Prescribed Citrate of Magnesia 1.745 g/30 mL oral liquid: 8.725 gm, 150 mL, PO, Once, 300 mL GoLYTELY oral powder for reconstitution: 240 mL, PO, q10min, 1 each Lidoderm 5% topical film: 1 patch(es), Topical, Daily, Apply to intact skin and remove patch after amaximum of 12 hr of application within a 24 hr period, 10 patch(es), 1 Refill(s) Prozac 10 mg oral tablet: 10 mg, 1 tab(s), PO, Daily, 30 tab(s) School excuse: See Instructions, Please excuse from school from ___03/06/2015 to 03/08/2015 due to illness , 1 each, 0 Refill(s) Toradol 10 mg oral tablet: 10 mg, 1 tab(s), PO, 4xDay, Take with food., 20 tab(s), 0 Refill(s) Tylenol with Codeine #3 oral tablet: 1 to 2 tablets, PO, q4hr, 12 tab(s), PRN: Pain Zofran 4 mg oral tablet: 4 mg, 1 tab(s), PO, q4hr, 30 tab(s), 0 Refill(s) ondansetron 4 mg oral tablet, disintegratin mg, 1 tab(s), PO, q6hr, PRN: Nausea/vomiting, 4 tab(s), 0 Refill(s) work excuse: See Instructions, please excuse from work until 04/07, 1 each, 0 Refill(s). Immunizations: Include Immunizations Previous Adult TD: Dose #1 () 12/31/1997 CDT. Polio: Dose #1 () 1985 SWEET GOODS MACHINE OPERATOR, Dose #2 () 1985 CDT, Dose #3 () 11/17/1988 CDT. influenza virus vaccine: Ad hoc dose () 03/01/2009 CDT. tetanus/diphth/pertuss (Tdap) adult/adol: Ad hoc dose (Tdapadult) 11/01/2013 CDT. MMR: Dose #1 () 11/17/1988 CDT, Dose #2 () 01/08/1999 CDT. DTaP: Dose #1 () 1985 SWEET GOODS MACHINE OPERATOR, Dose #2 () 1985 CDT, Dose #3 [...] PowerChart. Cytopathology, slides, cervical or vaginal (the [place] System); manual screening under physician supervision.. ([id number]) in the week of 03/10/2004 at 18 Years. Comments: 04/18/2010 21:45 - CARMEN MORALES Hx: [id number] - LAB-CYTOPATH, SM,D/V,TDS<3SM TECH 03/21/2013 17:41 - Contributor source changed to PowerChart.. Family history: Not significant. Social history: Reviewed as documented in chart, Occupation: Employed. Problem list: All Problems No Chronic Problems / NKP / Confirmed, per nurse's notes. Physical Examination Vital Signs: Vital Signs 07/01/2015 6:18 SWEET GOODS MACHINE OPERATOR Temperature Core 37.0 DegC Peripheral Pulse Rate 94 /min Respiratory Rate 18 /min SpO2 96 % Systolic Blood Pressure 127 mmHg Diastolic Blood Pressure 72 mmHg Mean Arterial Pressure 90 mmHg , per nurse's notes, SpO2 07/01/2015 6:18 SWEET GOODS MACHINE OPERATOR SpO2 96 % . General: Alert, no acute distress and anxious. Skin: Warm, intact, moist, no pallor, no rash and normal for ethnicity. Head: Normocephalic and atraumatic. Neck: Supple and trachea midline. Eye: Normal conjunctiva. Ears, nose, mouth and throat: Oral mucosa moist. Cardiovascular: Regular rate and rhythm, Normal peripheral perfusion and No edema. Respiratory: Lungs are clear to auscultation, respirations are non-labored, breath sounds are equal and Symmetrical chest wall expansion. Chest wall: No tenderness and No deformity. Back: Nontender, Normal range of motion, Normal alignment and no step-offs. Musculoskeletal: Normal ROM. normal strength. no tenderness. no swelling. Gastrointestinal: Soft, Nontender, Non distended and bowel sounds quiet. Neurological: Alert and oriented to person, place, time, and situation, No focal neurological deficit observed, CN II-XII intact, normal sensory observed, normal motor observed, normal coordination observed, normal and symmetrical reflexes, Speech: Normal and Gait: Normal. Lymphatics: No lymphadenopathy. Psychiatric: Cooperative. Medical Decision Making Differential Diagnosis:Hyperglycemia, dizziness. Documents reviewed:Emergency department nurses' notes. Reexamination/ Reevaluation lab results & pertinent positive findings fromexamination were disciussed the patient will be Rx for Bactrim DS & zofran I have recommended F/U with her PMD for BRODERICK UA 4-5 days if her condition worsens to return ot the ED for reassessment the ELLIE likely is causation for her dizziness- she has no red flags for centrally mediated vertigo Procedure 1. PO ZOFRAN(4mg); 2. PO BACTRIM DS Impression and Plan Diagnosis URINARY TRACT INFECTION NONGRAVIDA ELLIE BILATERALLY Plan Condition: Unchanged. Disposition: Discharged: Time 07/01/2015 07:01:00, to home. Patient was given the following educational materials: Sulfamethoxazole, Trimethoprim Oral tablet, BENIGN POSITIONAL VERTIGO, BLADDER INFECTION, Female (Adult). Follow up with: Return to Emergency Department Within As Needed If symptoms worsen.AT ANYTIME; Follow Up with Primary Care Within As Needed Call for follow up appointment. 4-5 DAYS FOR TEST FOR CURE URINARY TRACT INFECTION; SOFIE VÁZQUEZ Within As Needed. Counseled: Patient, Regarding diagnostic results, Regarding treatment plan, Regarding prescription, Patient indicated understanding of instructions. Electronically Signed By: BLANCHE RUIZ MD On: 07/01/2015 07:07 AM Modified by and Electronically Signed by: BLANCHE RUIZ MD On: 07/01/2015 07:07 AM Source: [facility] POWERCHART Document Id: [id number]} T GOODS MACHINE OPERATOR Del Farfan, R.N. - 07/01/2015 6:18 AM CST ED Primary Assessment Document Has Been Updated ED Primary Assessment Entered On: 07/01/2015 6:23 SWEET GOODS MACHINE OPERATOR Performed On: 07/01/2015 6:18 SWEET GOODS MACHINE OPERATOR by DEL FARFAN RN Reason For Visit (As Of: 07/01/2015 06:23:47 SWEET GOODS MACHINE OPERATOR) Problems(Active) No Chronic Problems (Cerner :NKP ) Name of Problem: No Chronic Problems ; Recorder: NATY XIE MD; Confirmation: Confirmed ; Classification: Medical ; Code: NKP ; Last Updated: 05/15/2013 16:30 SWEET GOODS MACHINE OPERATOR; Life Cycle Date: 05/15/2013 ; Life Cycle Status: Active ; Vocabulary: Cerner Diagnoses(Active) Vertigo - recurrent Date: 07/01/2015 ; Diagnosis Type: Reason For Visit ; Confirmation: Complaint of; Clinical Dx: Vertigo - recurrent ; Classification: Medical ; Clinical Service: Emergency medicine ; Code: PNED ; Probability: 0 ; Diagnosis Code: [id number] Triage Chief Complaint Description : 30 y/o female persents to ED d/t complaints of nausea and vertigo, Patient states s/s have been on-going all night with no inprovment noted, Patient also notes to large fluid intake last night, No injuries noted Information Given By : Patient Present in Room During Exam/Procedure : Alone Mode of Arrival ED : Private vehicle Track : Medical Languages : Belarusian Vital Signs Assessed : Yes Treatments Prior to Arrival : None Are you ? : No Is Patient Female and 13-50 no hysterectomy : Yes Status : Patient denies DEL FARFAN RN - 07/01/2015 6:18 SWEET GOODS MACHINE OPERATOR Vital Signs Temperature Core : 37.0 DegC(Converted to: 98.6 DegF) Peripheral Pulse Rate : 94 /min Respiratory Rate : 18 /min Systolic Blood Pressure : 127 mmHg Diastolic Blood Pressure : 72 mmHg NIBP Mean : 90 mmHg SpO2 : 96 % Oxygen Therapy : Room air DEL FARFAN RN - 07/01/2015 6:18 SWEET GOODS MACHINE OPERATOR Pain Assessment Pain Symptoms : No DEL FARFAN RN - 07/01/2015 6:18 SWEET GOODS MACHINE OPERATOR DENNY DCP GENERIC CODE Tracking Acuity : 4 -Less Urgent Tracking Group : [facility] ED/ DEL FARFAN RN - 07/01/2015 6:18 SWEET GOODS MACHINE OPERATOR Respiratory Airway : Patent Respirations : Unlabored Respiratory Pattern : Regular Oxygen Therapy : Room air DEL FARFAN RN - 07/01/2015 6:18 SWEET GOODS MACHINE OPERATOR Cardiovascular Heart Rhythm : Regular Skin Color : Normal for ethnicity Skin Description : Dry Skin Temperature : Warm DEL FARFAN RN - 07/01/2015 6:18 SWEET GOODS MACHINE OPERATOR Neurological Last Well Time Known : Not applicable Level of Consciousness : Alert Orientation : Oriented x 3 Characteristics of Speech : Appropriate for age Neuro Patient Stated Symptoms : None Gait : Steady Loss of Consciousness : No DEL FARFAN RN - 07/01/2015 6:18 SWEET GOODS MACHINE OPERATOR ED Psychosocial Affect/Behavior : Calm, Cooperative, Appropriate Domestic Abuse Concerns : None Behavioral Health Screen/Safety Assmt : No Emotional Support Available : No DEL FARFAN RN - 07/01/2015 6:18 SWEET GOODS MACHINE OPERATOR Gastrointestinal Nutrition ED : Adequate DEL FARFAN RN - 07/01/2015 6:18 SWEET GOODS MACHINE OPERATOR Musculoskeletal Fall Prevention Education Provided : NA Activity Lázaro : Walks frequently DEL FARFAN RN - 07/01/2015 6:18 SWEET GOODS MACHINE OPERATOR Social Habits Exposure to Tobacco Smoke : Patient smokes, Other: occ alcohol Smoking Status : Current every day smoker Tobacco 2A : Yes Tobacco Use/Currently Using : Yes Tobacco Use/Last 30 Days : Yes Tobacco Use/Last 12 months : Yes Type : Cigarettes: Less than 20 per day Tobacco Use/Advised to Quit : No DEL FARFAN RN - 07/01/2015 6:18 SWEET GOODS MACHINE OPERATOR Source: [facility] [employer] Document Id: [id number] SWEET GOODS MACHINE OPERATOR!65 T GOODS MACHINE OPERATOR documented in this encounter Miscellaneous Notes Miscellaneous - Carlos A Garcia REmekaNEmeka - 07/02/2015 5:13 PM CST Follow Up with Primary Care Document Contains Addenda Addendum by KATHRIN BALDWIN RN on 04 July 2015 15:54:32 SWEET GOODS MACHINE OPERATOR Emergency Department Callback Second attempt Date of visit:07/01/2015 ED/UC Provider:Sara PCP:Yang Is the pt having pain? No How are they managing their pain? Not applicable Is their condition improving?Yes Have they filled their prescription (if applicable)? Yes We want to ensure that you understood your Plan of Care. Did your discharge instructions answer all of your questions? Yes Order for follow-up appointment? Yes Follow up appointment? Patient would like to make an appointment now., Call transfered to appointment desk to set up appointment. How was your overall care was? Good What is one thing you feel we could do to improve? Addendum by KATHRIN BALDWIN RN on 04 July 2015 15:50:58 SWEET GOODS MACHINE OPERATOR No answer, unable to leave message, no name Addendum by SIVAN MILLS RN on 03 July 2015 13:12:32 SWEET GOODS MACHINE OPERATOR No answer, unable to leave message, no name Entered by CARLOS A GARCIA RN on 02 July 2015 17:13:48 SWEET GOODS MACHINE OPERATOR No answer, unable to leave message, no name Follow Up Request: Follow Up with Primary Care Date Requested: July 01, 2015 07:46:45 SWEET GOODS MACHINE OPERATOR Ed Location: [facility] ED ED Attending: BLANCHE RUIZ MD Order placed from order screen by provider Order Provider: --- Follow Up Time Frame: --- Reason for Request: --- Special Instructions: --- Consulting Physician: --- Consulting Department: --- Rule placed order based on provider documentaton Note: Order created from documentation in the Follow Up section Documented by: BLANCHE RIUZ MD Follow Up Within: As Needed Follow Up On: -- Follow Up Address: -- Follow Up Comments: Call for follow up appointment. 4-5 DAYS FOR TEST FOR CURE URINARY TRACT INFECTION Source: [facility] [employer] Document Id: [id number] Miscellaneous - Yamini Cerda R.N. - 07/01/2015 7:16 AM CST Valuables/Belongings Valuables/Belongings Entered On: 07/01/2015 7:46 SWEET GOODS MACHINE OPERATOR Performed On: 07/01/2015 7:16 SWEET GOODS MACHINE OPERATOR by YAMINI CERDA RN Valuables/Belongings Belongings Sent Home With : Pt YAMINI CERDA RN - 07/01/2015 7:46 SWEET GOODS MACHINE OPERATOR Source: [facility] [employer] Document Id: [id number] SWEET GOODS MACHINE OPERATOR!3 T GOODS MACHINE OPERATOR Miscellaneous - James, Kay Provider Ser - 07/01/2015 7:16 AM SWEET GOODS MACHINE OPERATOR Coding Summary-Paper Based CODING DATE: 07/14/2015 FINAL [facility] STATUS: * Discharged to Home or Self Care PAYOR: Medicaid ADMIT DX: R11.0 Nausea REASON FOR VISIT DX: R11.0 Nausea FINAL DX: PRINCIPAL: N39.0 Urinary tract infection, site not specified SECONDARY: H74.8X3 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 However, the narrative phrase printed from the coding software may appear abbreviated, or result in slightly different terminology. Coded By: SHANNA CASTANO Date Saved: 07/14/2015 08:02 pm Source: [facility] Document Id: [id number] Miscellaneous - Blanche Ruiz M.D. - 07/01/2015 7:10 AM CST Return to Work Status Return to Work Status Entered On: 07/01/2015 7:11 SWEET GOODS MACHINE OPERATOR Performed On: 07/01/2015 7:10 SWEET GOODS MACHINE OPERATOR by BLANCHE RUIZ MD Return to Work Status Date/Time of Injury : 07/01/2015 7:10 SWEET GOODS MACHINE OPERATOR Work Injury : No Work Status : No work Return to Work Start Date : 07/03/2015 SWEET GOODS MACHINE OPERATOR Restricted Work Start Date : 07/01/2015 SWEET GOODS MACHINE OPERATOR Restricted Work Stop Date : 07/03/2015 SWEET GOODS MACHINE OPERATOR Follow Up Appointment Needed : Yes Follow Up Appointment Date : 07/06/2015 SWEET GOODS MACHINE OPERATOR BLANCHE RUIZ MD - 07/01/2015 7:10 SWEET GOODS MACHINE OPERATOR Source: [employer] Document Id: [id number] SWEET GOODS MACHINE OPERATOR!10 T GOODS MACHINE OPERATOR documented in this encounter Plan of Treatment Not on filedocumented as of this encounter Procedures Procedure Name Priority Date/Time Associated Comments Diagnosis HXUR % DYSMORPHIC Routine 07/01/2015 6:30 AM Resu lts for this RBC SWEET GOODS MACHINE OPERATOR procedure are i n the results section. TEST, U Routine 07/01/2015 6:30 AM Resu lts for this SWEET GOODS MACHINE OPERATOR procedure are i n the results section. URINALYSIS, Routine 07/01/2015 6:30 AM Results f or this MIDSTREAM, WITH SWEET GOODS MACHINE OPERATOR procedure ar e in CULTURE IF INDICATED the res ults section. BACTERIAL CULTURE, Routine 07/01/2015 6:30 AM Res ults for this AEROBIC, URINE SWEET GOODS MACHINE OPERATOR procedure are in the results section. documented in this encounter Results HXUR % DYSMORPHIC RBC (07/01/2015 6:30 AM SWEET GOODS MACHINE OPERATOR) athologist Signature Dysmorphic RBC <=25 <=25 POWERCHART Specimen Anatomical Collection Method Collection Time Receive d Time (Source) Location / / Volume Laterality Urine, First 07/01/2015 6:30 AM 6:30 Voided SWEET GOODS MACHINE OPERATOR AM SWEET GOODS MACHINE OPERATOR Blanche Ruiz M.D. LAB HISTORICAL ORDERS Performing Organization Address [facility] Phon e Number POWERCHART Test, Qualitative, Urine (07/01/2015 6:30 AM SWEET GOODS MACHINE OPERATOR) [facility] Method Time Signature HXBeta-hCG Negative Negative POWERCHART Qualitative Urine Specimen (Source) Anatomical Collection Method Collection Time Re ceived Time Location / / Volume Laterality Urine 07/01/2015 6:30 AM SWEET GOODS MACHINE OPERATOR Blanche Ruiz M.D. LAB URINE ORDERABLES Performing Organization Address City/[facility] Phon e Number POWERCHART (ABNORMAL) Urinalysis, Midstream, with culture if indicated (07/01/2015 6:30 AM SWEET GOODS MACHINE OPERATOR) [facility] Method Time Signature HXUr Color Yellow Colorless POWERCHART Clarity Slightly Clear POWERCHART Cloudy (A) Glucose Negative Negative POWERCHART MGDL Protein, Ur, Trace Negative POWERCHART Dip MGDL HXBILIRUBIN Negative Negative POWERCHART Urobilinogen <2.0 MGDL POWERCHART pH, POCT, Urine 5.0 <5.0 POWERCHART HXBLOOD Small (A) Negative POWERCHART Ketones, QL(U) Negative Negative POWERCHART MGDL HXNITRITE Negative Negative POWERCHART Leukocyte Large (A) Negative POWERCHART Esterase Specific 1.024 POWERCHART [place], POCT, U HXUR WBC. 11-20 (A) None Seen POWERCHART HPF HXUR RBC. 3-10 (A) None Seen POWERCHART HPF HXUR Bacteria, Present (A) None Seen POWERCHART Squamous 31-40 (A) None Seen POWERCHART Epithelial HPF Mucus Present (A) None Seen POWERCHART Specimen (Source) Anatomical Collection Method Collection Time Re ceived Time Location / / Volume Laterality Urine, First 07/01/2015 6:30 AM Voided SWEET GOODS MACHINE OPERATOR Blanche Ruiz M.D. LAB URINE ORDERABLES Performing Organization Address City/State/ZIP Code Phon e Number POWERCHART Bacterial Culture, Aerobic, Urine (07/01/2015 6:30 AM SWEET GOODS MACHINE OPERATOR) [facility] Method Time Signature Bacterial POWERCHART Culture, Aerobic, Urine HXPre Reincubate POWERCHART HXFinal Mixed harlan. No POWERCHART further studies unless notified. [facility] POWERCHART Microbiology laboratory [phone]. Specimen Anatomical Collection Method Collection Time Receive d Time (Source) Location / / Volume Laterality Urine, First 07/01/2015 6:30 AM 6:40 Voided SWEET GOODS MACHINE OPERATOR AM SWEET GOODS MACHINE OPERATOR Blanche Ruiz M.D. LAB MICROBIOLOGY - GENERAL O RDERABLES Performing Organization Address City/State/ZIP Code Phon e Number POWERCHART documented in this encounter Visit Diagnoses Not on filedocumented in this encounter
--- OUTSIDE RECORDS SUMMARY | 2022-02-03 23:57 | XMS_ITS | Encounter Summary ---
:1985 Author Organization [facility] Address [address] [place] [address] Care Team Providers Name Role Phone Unavailable Primary Care Provider Unavailable Encounter Details Date Type Department Care Team Description 07/23/2015 Hospital Encounter HX [facility] Ford Keenan M.D. [address] [place], [place] [address] (Wo rk) Social History Tobacco Use Types [...] - - Height 169 cm (5' 6.54) 07/23/2015 9:29 AM CDT Body Mass Index - - documented in this encounter Consult Notes Ford Keenan M.D. - 07/23/2015 9:27 AM CDT [id number] CHIEF COMPLAINT/REASON FOR VISIT Sore throat. HISTORY OF PRESENT ILLNESS The patient is a 30-year-old female who is referred to our clinic by the emergency room for evaluation of her throat. She has had throat pain for about 2 weeks. She was tested for strep throat, and shestates that it came back positive. She has been on 2 different rounds of antibiotics. Both have beentypes of penicillins. It does not seem to have helped. She has had a couple different steroids as well. She is still having the throat pain. It is severe. It is constant. It does not radiate. Nothing seems to make it better or worse. She states she usually gets 3 to 4 episodes of strep throat per year. They are always tested and come back positive. She usually responds to antibiotics. She has never had a surgery on her throat. The patient gets very severe reflux. It happens at least 3 times a week. She states the reflux is sosevere that she will force herself to throw up. This has been going on now for about 5 years. She does take Tums occasionally but is not on any medications for the reflux. She is not sure what makes the reflux happen. Nothing seems to make it any better. She notes this all started after she had her gallbladder removed. PAST MEDICAL/SURGICAL HISTORY PAST MEDICAL HISTORY: Unremarkable. PAST SURGICAL HISTORY: Tympanostomy and tubes. FAMILY HISTORY Mother with asthma. Grandparent with heart disease, cancer, and asthma. MEDICATIONS Reviewed on the EMR. ALLERGIES None. SOCIAL HISTORY The patient does use tobacco. She uses a pipe. SYSTEMS REVIEW Thirteen systems reviewed, negative except for night sweats, glasses, chest pain, shortness of breath, snoring, hearing loss, depression, sore throats, heartburn, easy bruising, and frequent ear infections. PHYSICAL EXAMINATION GENERAL: Patient is in no acute distress. No respiratory distress. No stridor. VITAL SIGNS: The most recent vitals were reviewed on the EMR. HEENT: Inspection of the head and face reveals no lesions. Extraocular movements intact. Facial nerve 1/6 bilaterally. Palpation of sinuses: No tenderness. Salivary glands normal. Examination of the ears reveals normal ear canals. Normal tympanic membranes. Dorsum of the nose is straight. Nasal mucosais moist. Oral cavity is without lesions. Oropharynx has just a little bit of residual erythema on the tonsils. There is no purulent material. NECK: The trachea is in the midline. No cervical lymphadenopathy. No neck masses. Thyroid exam is normal. HEART: Regular rate, rhythm. LUNGS: Clear to auscultation. NEUROLOGIC: No focal defect. PROCEDURE Flexible fiberoptic transnasal laryngoscopy. Verbal consent was obtained. The flexible scope was placed in the nasal cavity. No purulent debris or polypoid tissue. Nasopharynx is without lesions. The oropharynx is without specific lesions. The glottis has quite a bit of interarytenoid erythema. There are no masses on the vocal cords. There are no abnormalities to the movement. IMPRESSION/REPORT/PLAN The patient has a couple different things going on. She does have strep throat currently. We will treat her with a 2-week course of clindamycin. She has failed 2 different courses of penicillins. We will have her take probiotics with active cultures while she is on the clindamycin. The patient does get recurrent strep throat. She is having 3 to 4 episodes per year. She does qualify to have her tonsils removed. We discussed risks, benefits, indications, alternatives, and procedure. I highlighted the risks of general anesthesia, including heart attack, stroke, and . I highlighted the risks of the procedure itself, including need for additional surgery, continued sore throats, VPI, change in voice, change in swallowing, and postoperative bleeding. She will call back to schedule the procedure once her reflux gets under control. The patient has very severe reflux. It is happening multiple times a week. It is so severe the patient makes herself throw up to make it feel better. I am going to start her on omeprazole daily. We need to get her in touch with the gastroenterology team. I anticipate she may need an EGD. It sounds like she has been making herself throw up this way for about 5 years. She states this all started after her gallbladder was removed. We discussed that we definitely want to get the reflux issues under control before the tonsillectomy. We do not want to be in a situation where she is inducing herself to throw up during the weeks after surgery. That would potentially cause complications to the wound healing and would cause excruciating pain. She is going to call back after the reflux gets under control. Fodr Keenan M.D./guillermo Electronically Signed By: FORD KEENAN MD On: 07/23/2015 12:59 PM Source: [facility] [employer] Document Id: [id number] documented in this encounter Miscellaneous Notes Miscellaneous - Chevy Morales L.P.N. - 07/23/2015 10:20 AM CDT *General Message Document Contains Addenda Addendum by ROBERT BANSAL LPN on July 25, 2015 13:30:04 CDT From: ROBERT BANSAL LPN (YADIRA No Nurse) To: YADIRA PreOp Nurse; [facility] Packaging Line Operator/Prior Authorizations; Sent: 07/25/2015 13:30:04 CDT Subject: FW: *General Message EGD ON 09/11/15 Addendum by ROBERT BANSAL LPN on July 25, 2015 13:29:03 CDT PATIENT IS SCHEDULED FOR A EGD ON 09/11/[address] NO. PT OF DR. VÁZQUEZ. From: CHEVY MORALES LPN ( Ear Nose and Throat Nurse) To: YADIRA No Nurse; Sent: 07/23/2015 10:20:38 CDT Subject: *General Message Dr Keenan is referring pt. to Dr. No for an EGD and treat for severe GERD x 5 to 6 yrs.Thankyou. Source: [facility] [employer] Document Id: [id number] Electronically signed by James [facility] Order Department Supervisor [id number] at 09/26/2016 3:50 PM CDT Miscellaneous - Ford Keenan M.D. - 07/23/2015 10:15 AM CDT Ambulatory Patient Summary [address] [id number] Visit Information Name: RADHA BLANCHARD [facility] Number: [id number] Current Date: 07/23/2015 10:15:12 Physicians Attending Provider: FORD KEENAN MD Primary Care Provider: SOFIE VÁZQUEZ MD [phone] RADHA BLANCHARD has been given the following [...] Take Indications/Special Instructions/Comments/Notes for Patient Medication Changes/Routing clindamycin (clindamycin 300 mg oral capsule) 1 cap, Oral, every 6 hours x 14 day(s) New Routed to [address] [address] dexamethasone (dexamethasone 2 mg oral tablet) 5 Tablet(s), Oral, once FLUoxetine (Prozac 10 mg oral tablet) 1 Tablet(s), Oral, once a day lidocaine topical (Lidoderm 5% topical film) 1 patch(es), Topical, once a day Apply to intact skin and remove patch after a maximum of 12 hr of application within a 24 hr period omeprazole (omeprazole 40 mg oral delayed release capsule) 1 cap, Oral, once a day New Routed to [address] [address] oxyCODONE (oxyCODONE 5 mg oral tablet) 1 Tablet(s), Oral, every 4 hours as needed for pain Take on 06/13/15 polyethylene glycol 3350 with electrolytes (GoLYTELY oral powder for reconstitution) 240 Milliliter,Oral, every 10 minutes Stop Taking the Following Medications: Medication list as of 07-23-15 10:15 Attention: If you have any medications at home that are not on this list, DO NOT take them until youcontact your provider for clarification. Give a copy of your medication list to your primary care provider. Update your medication list any time medications or doses are changed and carry your medication list at all times in case of emergency. Electronically Signed By: FORD KEENAN MD Signed On:23-JUL-2015 10:15:08 Your Allergies & Intolerances Substance Reaction Symptoms Category Comments No Known Allergies Drug Your Problem List Problem Status Onset Comments No Chronic Problems Active Your Upcoming Appointments Date Time Location [...] if you dont have one. Go to [email or web address] and click on Create Your Account. Then, follow the directions to complete the online form. Youll be asked for your [facility] number which you can find at the top of this document. Your Goals/Additional instructions: Source: [facility] POWERCHART Document Id: [id number] Miscellaneous - Ford Keenan M.D. - 07/23/2015 10:15 AM CDT Ambulatory Discharge Medication List [facility] [address] [place], [place] [phone] Visit Information Name: RADHA BLANCHARD [facility] Number: [id number] Visit Date: 07/23/2015 10:15:12 Attending Provider: FORD KEENAN MD Primary Care Provider: SOFIE VÁZQUEZ MD [phone] RADHA BLANCHARD has been given the following list of medications: Your Medications It is important to take your medications as directed. Use a pill box or chart to help remind you to take your medications. Please let your doctor or nurse know if you have problems taking your medications. Medication/Strength How to Take Indications/Special Instructions/Comments/Notes for Patient Medication Changes/Routing clindamycin (clindamycin 300 mg oral capsule) 1 cap, Oral, every 6 hours x 14 day(s) New Routed to [address] [place] [address] dexamethasone (dexamethasone 2 mg oral tablet) 5 Tablet(s), Oral, once FLUoxetine (Prozac 10 mg oral tablet) 1 Tablet(s), Oral, once a day lidocaine topical (Lidoderm 5% topical film) 1 patch(es), Topical, once a day Apply to intact skin and remove patch after a maximum of 12 hr of application within a 24 hr period omeprazole (omeprazole 40 mg oral delayed release capsule) 1 cap, Oral, once a day New Routed to [address] [place], [place] [id number] oxyCODONE (oxyCODONE 5 mg oral tablet) 1 Tablet(s), Oral, every 4 hours as needed for pain Take on 06/13/15 polyethylene glycol 3350 with electrolytes (GoLYTELY oral powder for reconstitution) 240 Milliliter,Oral, every 10 minutes Stop Taking the Following Medications: Medication list as of 07-23-15 10:15 Attention: If you have any medications at home that are not on this list, DO NOT take them until youcontact your provider for clarification. Give a copy of your medication list to your primary care provider. Update your medication list any time medications or doses are changed and carry your medication list at all times in case of emergency. Electronically Signed By: FORD KEENAN MD Signed On:23-JUL-2015 10:15:08 Additional Information: Source: [facility] POWERCHART Document Id: [id number] Miscellaneous - Chevy Morales L.P.N. - 07/23/2015 9:29 AM CDT Adult Customer Operations Specialist Intake/History Adult Customer Operations Specialist Intake/History Entered On: 07/23/2015 9:31 CDT Performed On: 07/23/2015 9:29 CDT by CHEVY MORALES LPN Intake Chief Complaint : referred by ER ST x 2 weeks hoarseness started a couple days ago. Height : 169 cm(Converted to: 5 ft 7 inch(es), 67 inch(es)) CHEVY MORALES LPN - 07/23/2015 9:29 CDT General Info Information Given By : Patient Preferred Communication Mode : Verbal Languages : Samoan Is Patient Female and 13-50 no hysterectomy : Yes Status : Patient denies Are you ? : No CHEVY MORALES LPN - 07/23/2015 9:29 CDT Subjective Pain Symptoms : Yes CHEVY MORALES LPN - 07/23/2015 9:29 CDT Pain Scale Pain Scale Verbal 0-10 : Open CHEVY MORALES LPN - 07/23/2015 9:29 CDT Pain Pain Assessment Grid Pain 1 Location : Throat Laterality : Right Intensity : 6 CHEVY MORALES LPN - 07/23/2015 9:29 CDT Dependent Habits Exposure to Tobacco Smoke : Patient smokes, Other: occ alcohol Smoking Status : Current every day smoker Tobacco 2A : Yes Tobacco Use/Currently Using : Yes Tobacco Use/Last 30 Days : Yes Tobacco Use/Last 12 months : Yes Type : Cigarettes: Less than 20 per day Tobacco Use/Advised to Quit : Yes Alcohol Use : Yes CHEVY MORALES LPN - 07/23/2015 9:29 CDT Caffeine Use Grid Caffeine Use : None CHEVY MORALES LPN - 07/23/2015 9:29 CDT Recreational Drug Use Grid Drug Use : None CHEVY MORALES LPN - 07/23/2015 9:29 CDT [facility] Document Id: [id number] CDT!37 documented in this encounter Plan of Treatment Not on filedocumented as of this encounter Visit Diagnoses Not on filedocumented in this encounter
--- OUTSIDE RECORDS SUMMARY | 2022-02-03 23:57 | XMS_ITS | Encounter Summary ---
:1985 Author Organization [facility] Address [address] [place] [address] Care Team Providers Name Role Phone Unavailable Primary Care Provider Unavailable Encounter Details Date Type Department Care Team Description 08/12/2015 Hospital Encounter HX [facility] Nuha Nelson Jr, M.D. [address] [place], [place] [address] (Wo rk) Social History Tobacco Use Types Packs/Day Years Used Date Smoking Tobacco: Never Assessed Sex Assigned at Date Recorded Not on file documented as of this encounter Last Filed Vital Signs Vital Sign Reading Time Taken Comments Blood Pressure 128/77 08/12/2015 11:15 AM CDT Pulse 82 08/12/2015 11:15 AM CDT Temperature - - Respiratory Rate 16 08/12/2015 11:15 AM CDT Oxygen Saturation - - Inhaled Oxygen Concentration - - Weight 111 kg (245 lb 9.5 oz) 08/12/2015 9:38 AM CDT Height 166.5 cm (5' 5.55) 08/12/2015 11:15 AM CDT Body Mass Index 40.18 08/12/2015 9:38 AM CDT documented in this encounter Discharge Summaries Leta White, R.N. - 08/12/2015 11:30 AM CDT Discharge Summary Discharge Summary Entered On: 08/12/2015 11:10 CDT Performed On: 08/12/2015 11:30 CDT by LETA WHITE RN DC Information Discharged to : Home with family care Mode of Discharge : Wheelchair Discharge Transportation : Private vehicle Accompanied By : Nurse aidLETA Brewster RN - 08/12/2015 11:09 CDT Education General Patient Education Powergrid Topics : Postoperative instructions Individuals Taught : Patient, Spouse Barriers to Learning : None evident Teaching Method : Explanation, Printed materials Teaching Evaluation : Able to teach back, Verbalizes understanding LETA WHITE RN - 08/12/2015 11:09 CDT Valuables/Belongings Valuables/Belongings Grid Valuables Sent to Secured Storage Clothes, Patient Valuables : Jacket, Pants, Shirt, Shoes, Undergarments Electronic Devices : Cell phone Jewelry : Body rings/chains, Rings Monetary Items : None Personal Devices : Glasses Miscellaneous : None LETA WHITE RN - 08/12/2015 11:09 CDT Room Orientation/Facility Policy Reviewed : Yes Belongings Sent Home With : patient Home Medication Disposition : None brought in with patient LETA WHITE RN - 08/12/2015 11:09 CDT Source: [facility] Document Id: [id number] CDT!26 Nuha Butler M.D. - 08/12/2015 10:33 AM CDT Hospital Discharge Medication List [facility] [address] [place] [address] Discharge Medication List Name: SILVIA BLANCHARD Current Date: 08/12/2015 10:33:48 : 1985 12:00 AM [facility] Number: [id number] Patient Address: [address] [place] [phone] Patient Primary Care Provider: Name: SOFIE SORIA MD Phone: [phone] Discharge Diagnosis: [facility] [place] would like to thank you for allowing us to assist you with your healthcare needs. The following includes patient education materials and information regarding your injury/illness. Medications Medication/Strength How to Take Indications/Special Instructions/Comments/Notes for Patient Medication Changes/Routing *FLUoxetine (Prozac 10 mg oral tablet) 1 Tablet(s), Oral, once a day *lidocaine topical (Lidoderm 5% topical film) 1 patch(es), Topical, once a day Apply to intact skin and remove patch after a maximum of 12 hr of application within a 24 hr period Misc Prescription (Work excuse) See Instructions Please excuse from work 07/25/15 d/t acute illness omeprazole (omeprazole 40 mg oral delayed release capsule) 1 cap, Oral, once a day *polyethylene glycol 3350 with electrolytes (GoLYTELY oral powder for reconstitution) 240 Milliliter, Oral, every 10 minutes traMADol (traMADol 50 mg oral tablet) See Instructions, as needed for Pain 1 to 2 tab(s) PO q6hr as needed for pain * You have let us know that you are not taking this medication as listed. Please talk with your primary care provider or the health care provider who prescribed the medication as soon as possible. Stop Taking the Following Medications: Medication list as of 08-12-15 10:33 Attention: If you have any medications at home that are not on this list, DO NOT take them until youcontact your provider for clarification. Give a copy of your medication list to your primary care provider. Update your medication list any time medications or doses are changed and carry your medication list at all times in case of emergency. Comment: Electronically Signed By: CHEO BUTLER MD Signed On:12-AUG-2015 10:33:44 Source: [facility] POWERCHART Document Id: [id number] Nuha Butler M.D. - 08/12/2015 10:33 AM CDT Hospital Discharge Instructions [facility] [address] [place] [address] Patient Discharge Instructions Name: SILVIA BLANCHARD Current Date: 08/12/2015 10:33:49 : 1985 12:00 AM [facility] Number: [id number] Patient Address: [address] [place] [phone] Patient Primary Care Provider: Name: SOFIE SORIA MD Phone: [phone] Discharge Diagnosis: [facility] [place] would like to thank you for allowing us to assist you with your healthcare needs. The following includes patient education materials and information regarding your injury/illness. Comment: SILVIA BLANCHARD has been given the following list of follow-up instructions, medication list, and patient education materials: Follow-up Instructions Medications Medication/Strength How to Take Indications/Special Instructions/Comments/Notes for Patient Medication Changes/Routing *FLUoxetine (Prozac 10 mg oral tablet) 1 Tablet(s), Oral, once a day *lidocaine topical (Lidoderm 5% topical film) 1 patch(es), Topical, once a day Apply to intact skin and remove patch after a maximum of 12 hr of application within a 24 hr period Misc Prescription (Work excuse) See Instructions Please excuse from work 07/25/15 d/t acute illness omeprazole (omeprazole 40 mg oral delayed release capsule) 1 cap, Oral, once a day *polyethylene glycol 3350 with electrolytes (GoLYTELY oral powder for reconstitution) 240 Milliliter, Oral, every 10 minutes traMADol (traMADol 50 mg oral tablet) See Instructions, as needed for Pain 1 to 2 tab(s) PO q6hr as needed for pain * You have let us know that you are not taking this medication as listed. Please talk with your primary care provider or the health care provider who prescribed the medication as soon as possible. Stop Taking the Following Medications: Medication list as of 08-12-15 10:33 Attention: If you have any medications at home that are not on this list, DO NOT take them until youcontact your provider for clarification. Give a copy of your medication list to your primary care provider. Update your medication list any time medications or doses are changed and carry your medication list at all times in case of emergency. Comment: Electronically Signed By: CHEO BUTLER MD Signed On:12-AUG-2015 10:33:44 Your Upcoming Appointments Date Time Location Provider 08/23/2015 08:15 [facility] Sofie Soria MD Consider Using Patient Online Services Patient Online [...] if you dont have one. Go to [email or web address] and click on Create Your Account. Then, follow the directions to complete the online form. Youll be asked for your [facility] number which you can find at the top of this document. LO Ward SILVIA STALEYN , have received the attached patient education materials/instructions and have verbalized understanding: Patient Signature Date Time Care Provider Signature Date Time Source: [facility] Document Id: [id number] documented in this encounter Procedure Notes Liss Buckner, R.N. - 08/12/2015 10:19 AM CDT Preprocedure Checklist Document Has Been Updated Preprocedure Checklist Entered On: 08/12/2015 9:46 CDT Performed On: 08/12/2015 10:19 CDT by LISS BUCKNER RN Checklist Last Fluid Intake : 08/11/2015 11:58 CDT Last Food Intake : 08/11/2015 23:45 CDT LISS BUCKNER RN - 08/12/2015 9:38 CDT Surgery Prep Grid Contacts/Glasses Removed : NA Dentures Removed : NA Hairpins/Hairpiecies Removed : NA Hearing Aid Removed : NA Home Prep Complete : NA Jewelry/Piercing Removed : Yes Makeup/Nail Burmese Removed : NA Oral Hygiene : NA Preop Scrub AM of Surgery : NA Preop Scrub Night Prior to Surgery : NA Prosthesis Removed : NA Tampon Removed : NA Verified - No hair products used : NA Voided supervisor steel division to procedure : NA Wearing Patient Gown : Yes LISS BUCKNER RN - 08/12/2015 9:38 CDT Patient Rights Grid Blood Consent Signed : Yes Surgical/Procedure Consent Signed : Yes LISS BUCKNER RN - 08/12/2015 9:38 CDT Family Location : Spouse Pinky LISS BUCKNER RN - 08/12/2015 9:38 CDT Checklist II Patient Safety Grid Allergy Band on and Verified : Yes (Comment: nka [LISS BUCKNER RN - 08/12/2015 9:38 CDT] ) Anesthesia Consult : NA Band on for Limb Alert : NA Blood Band on and Verified : NA Current ECG in Medical Record : NA Current H&P in Medical Record : Yes Implants Verified : NA Medication Reconciliation on Chart : NA Pacemaker/AICD Verified : NA ID Band on and Verified : Yes Preop Medications Sent With Patient : NA Relevant Images in Medical Record : NA Review of Labs : NA Procedure/Site Verified by Patient/Family : Yes Procedure/Site Verified by RN : Yes Procedure/Site Verified by Physician : Yes Type & Screen/Type & Cross Completed : LISS KHAN RN - 08/12/2015 9:38 CDT RN Who Verified Site : LISS BUCKNER RN Physician Who Verified Site : CHEO BUTLER MD, BRENDA L RN - 08/12/2015 9:38 CDT LUIS MIGUEL Screening Known Obstructive Sleep Apnea : No - NOT diagnosed with LUIS MIGUEL LUIS MIGUEL Score : No qualifying data available. LUIS MIGUEL Results : No qualifying data available. LISS BUCKNER RN - 08/12/2015 9:38 CDT LUIS MIGUEL Assessment Do you have high blood pressure or have you been told to take medication for high blood pressure? : No Frequency of Snoring : Always (every night) Frequency of Gasping, Choking, Snorting : Never Total Number of Historical Features : 1 Neck Circumference - LUIS MIGUEL 1 : 38/39 Total Sleep Apnea Clinical Score 1 Calc : 4 LISS BUCKNER RN - 08/12/2015 9:38 CDT Valuables/Belongings Valuables/Belongings Grid Valuables Sent to Secured Storage Clothes, Patient Valuables : Jacket, Pants, Shirt, Shoes, Undergarments Electronic Devices : Cell phone Jewelry : Body rings/chains, Rings Monetary Items : None Personal Devices : Glasses Miscellaneous : None LISS BUCKNER RN - 08/12/2015 9:38 CDT Room Orientation/Facility Policy Reviewed : Yes Belongings Sent Home With : patient Home Medication Disposition : None brought in with patient LISS BUCKNER RN - 08/12/2015 9:38 CDT Preop Holding Mode of Arrival : Ambulatory Preoperative Orders Complete : Yes LISS BUCKNER RN - 08/12/2015 9:38 CDT Advance Directive Advanced Directives : No Advance Directive Additional Information : No LISS BUCKNER RN - 08/12/2015 9:38 CDT Vital Signs Temperature Core : 36.6 DegC(Converted to: 97.9 DegF) Apical Heart Rate : 92 /min Respiratory Rate : 16 /min Systolic Blood Pressure : 129 mmHg Diastolic Blood Pressure : 83 mmHg NIBP Mean : 98 mmHg BP Location : Right upper extremity SpO2 : 96 % Oxygen Therapy : Room air Height : 166.5 cm(Converted to: 5 ft 6 inch(es)) Actual Weight : 111.4 kg Actual Weight Conversion to Pounds : 245.08 lb Weight Source : Standing scale Height Source : Measured Body Mass Index : 40.18 kg/m2 LISS BUCKNER RN - 08/12/2015 9:38 CDT Allergy (As Of: 08/12/2015 09:46:41 CDT) Allergies (Active) NKA Estimated Onset Date: Unspecified ; Created By: KATIE BRUNNER MD; Reaction Status: Active ; Category: Drug ; Substance: NKA ; Type: Allergy ; Updated By: KATIE BRUNNER MD; Reviewed Date: 08/12/2015 9:36 CDT Preprocedural Pause Type of Pause : Preprocedural Pause Consent Correct : Yes Correct Patient Identity : Patient verbalizes self, Patient wristband ID, Patient verbalizes Correct Procedure Site/Side Verified By : Patient/responsible republican, Nurse, MD Site Marking : Yes Pre-Procedure Pause Verbal Confirm. of : Procedure, Site, Side, Patient Position, Patient ID, Special Supplies/Equipment Perioperative Staff #1 : JANICE PALACIO LPN Perioperative Staff #3 : CHEVY PAPPAS RN, JULIE M RN - 08/12/2015 11:07 CDT Source: [employer] Document Id: [id number] CDT!10 Nuha Butler M.D. - 08/12/2015 9:49 AM CDT ExamEndo Patient Name: Silvia Blanchard Procedure Date: 08/12/2015 9:49 AM Date of : 1985 Admit Type: Outpatient Age: 30 Room: [facility] Gender: Female Note Status: Finalized Attending MD: Cheo Butler MD Procedure: Upper GI endoscopy Indications: Suspected gastro-esophageal reflux disease Providers: Cheo Butler MD Referring MD: Sofie Soria MD (Referring MD) Requesting Provider: Medicines: Midazolam 4 mg IV, Meperidine 75 mg IV, Benzocaine spray Complications: No immediate complications. Procedure: Pre-Anesthesia Assessment: - Prior to the procedure, a History and Physical was performed, and patient medications, allergies and sensitivities were reviewed. The patient's tolerance of previous anesthesia was reviewed. - The risks and benefits of the procedure and the sedation options and risks were discussed with the patient. All questions were answered and informed consent was obtained. - Patient identification and proposed procedure were verified prior to the procedure by the physician, the nurse and the explosive technician. The procedure was verified in the endoscopy suite. - Pre-procedure physical examination revealed no contraindications to sedation. - ASA Grade Assessment: II - A patient with mild systemic disease. - After reviewing the risks and benefits, the patient was deemed in satisfactory condition to undergo the procedure. - The anesthesia plan was to use moderate sedation/analgesia (conscious sedation). - Immediately prior to administration of medications, the patient was re-assessed for adequacy to receive sedatives. - Sedation was administered by an endoscopy nurse. The sedation level attained was moderate. - The heart rate, respiratory rate, oxygen saturations, blood pressure, adequacy of pulmonary ventilation, and response to care were monitored throughout the procedure. - The physical status of the patient was re-assessed after the procedure. After obtaining informed consent the endoscope was passed under direct vision. Throughout the procedure the patient's blood pressure, pulse and oxygen saturations were monitored continuously. The Gastroscope was introduced through the mouth, and advanced to the third part of duodenum. The upper GI endoscopy was accomplished without difficulty. The patient tolerated the procedure well. Findings: The Z-line was regular and was found 40 cm from the incisors. A small hiatus hernia was present. Striped moderately erythematous mucosa without bleeding was found in the gastric antrum. Biopsies were taken with a cold forceps for Helicobacter pylori testing. No gross lesions were noted at 3rd part of the duodenum. Biopsies were taken with a cold forceps for evaluation of celiac disease. Impression: - Z-line regular, 40 cm from the incisors. - Hiatus hernia. - Erythematous mucosa in the antrum. Biopsied. - No gross lesions in duodenum. Biopsied. Recommendation: - Await pathology results. - Follow an antireflux regimen indefinitely. - Continue present medications. Procedure Code(s): --- Professional --- 12093, Esophagogastroduodenoscopy, flexible, transoral; with biopsy, single or multiple Diagnosis Code(s): --- Professional --- K44.9, Diaphragmatic hernia without obstruction or gangrene K31.9, Disease of stomach and duodenum, unspecified CPT copyright 2013 [employer]. All rights reserved. The codes documented in this report are preliminary and upon forensic psychiatrist review may be revised to meet current compliance requirements. Cheo Butler MD Cheo Butler MD 08/12/2015 10:38 AM Number of Addenda: 0 Note Initiated On: 08/12/2015 9:49 AM Source: [facility] Document Id: [id number] documented in this encounter Nursing Notes Liss Buckner REmekaNEmeka - 08/12/2015 9:38 AM CDT Day Surgery Admission History/Asmt Adult Document Has Been Updated Day Surgery Admission History/Asmt Adult Entered On: 08/12/2015 9:42 CDT Performed On: 08/12/2015 9:38 CDT by LISS BUCKNER RN General Info Admitted From : Born Inside This Hospital Mode of Arrival : Ambulatory Present in Room During Exam/Procedure : Spouse Chief Complaint : chronic heartburn, vomiting Preferred Communication Mode : Verbal Information Given By : Patient Languages : Ukrainian Is Patient Female and 13-50 no hysterectomy : Yes Status : Patient denies Are you ? : No LISS BUCKNER RN - 08/12/2015 9:38 CDT Allergy (As Of: 08/12/2015 09:42:58 CDT) Allergies (Active) NKA Estimated Onset Date: Unspecified ; Created By: KATIE BRUNNER MD; Reaction Status: Active ; Category: Drug ; Substance: NKA ; Type: Allergy ; Updated By: KATIE BRUNNER MD; Reviewed Date: 08/12/2015 9:36 CDT Anesth/Transfusion Anesthesia/Transfusions : Prior anesthesia Transfusion Acceptable in Emergency : Yes Mandaen/Other Objections to Blood Transfusions : No LISS BUCKNER RN - 08/12/2015 9:38 CDT ID Screen Drug Resistant Organism : No Travel Within Last 21 Days : No LISS BUCKNER RN - 08/12/2015 9:38 CDT Nutrition Have you recently lost weight without trying? : Yes If yes, how much weight have you lost? : 6-10 kg (13-22 pounds) Decreased Appetite Nutrition : No Tube Feedings or Parenteral Nutrition : No [facility] Score : 2 Home Diet : Regular Appetite : Fair Eating Difficulties : None Feeding Ability : Complete independence LISS BUCKNER RN - 08/12/2015 9:38 CDT Home Environment Current Daily Living Assistance : None Living Situation : Home independently Home Equipment : None Sensory Deficits : Hearing deficit, left ear, Hearing deficit, right ear Mobility Assistance Prior to Admission : Independent Current Home Treatments : None Professional Skilled Services : None Special Services and Community Resources : None LISS BUCKNER RN - 08/12/2015 9:38 CDT Dependent Habits Exposure to Tobacco Smoke : Patient smokes, Other: occ alcohol Smoking Status : Current every day smoker Tobacco 2A : Yes Tobacco Use/Currently Using : Yes Tobacco Use/Last 30 Days : Yes Tobacco Use/Last 12 months : Yes Type : Cigarettes: Less than 20 per day Tobacco Use/Advised to Quit : Yes Alcohol Use : Yes LISS BUCKNER RN - 08/12/2015 9:38 CDT Caffeine Use Grid Caffeine Use : None LISS BUCKNER RN - 08/12/2015 9:38 CDT Recreational Drug Use Grid Drug Use : None LISS BUCKNER RN - 08/12/2015 9:38 CDT AUDIT Tool How Often Do You Have A Drink : 2 to 4 times a month How Many Drinks in a Day When Drinking : 3 or 4 Six or More Drinks On One Occassion : Monthly Audit Phase 1 Score : 5 LISS BUCKNER RN - 08/12/2015 9:38 CDT Psychosocial Adult Domestic Abuse Concerns : None Behavioral Health Screen/Safety Assmt : No Coping : Effective Mandaen Preference : No Mandaen Affiliation LISS BUCKNER RN - 08/12/2015 9:38 CDT Advance Directive Advanced Directives : No Advance Directive Additional Information : No LISS BUCKNER RN - 08/12/2015 9:38 CDT Educ Needs Patient/Family Education Needs : Nutrition/Diet, Postoperative instructions LISS BUCKNER RN - 08/12/2015 9:38 CDT Learning Style Preference Adult Grid Patient : Printed materials, Verbal explanation Family : Printed materials, Verbal explanation LISS BUCKNER RN - 08/12/2015 9:38 CDT Education Preprocedure Education Grid Education Topics : Patient rights and responsibilities Individuals Taught : Patient, Spouse Barriers to Learning : None evident Teaching Method : Explanation, Printed materials Teaching Evaluation : Verbalizes understanding LISS BUCKNER RN - 08/12/2015 9:38 CDT Outpatient Assessment Procedural Respiratory : Respirations unlabored, Respiratory pattern regular, No cough Procedural Cardiovascular : Heart rhythm regular, Skin color normal for ethnicity, Skin dry and warm Procedural Neurological : Alert, Oriented x 3, Gait steady, No swallowing difficulty/aspiration risk Procedural Gastrointestinal : Abdomen non-tender and soft Procedural Genitourinary : Voiding, no difficulties Procedural Integumentary : Skin integrity intact LISS BUCKNER RN - 08/12/2015 9:38 CDT Psycho/Emotional Pain Symptoms : No Affect/Behavior : Calm, Cooperative, Appropriate LISS BUCKNER RN - 08/12/2015 9:38 CDT Coping Grid Identifies effective strategies : Yes Uses effective strategies : Yes Reports increase in psychological comfort : Yes Indicates sense of control : Yes Stressors perceived within control : Yes Stable mood with appropriate affect : Yes Behaviors indicate use of coping mechanism : Yes Family supportive and involved in care : Yes Values/Beliefs incorporated appropriately : Yes LISS BUCKNER RN - 08/12/2015 9:38 CDT Safety Grid Vision, Hearing, Mobility Adequate to Meet Safety Needs : Yes LISS BUCKNER RN - 08/12/2015 9:38 CDT Peripheral IV Peripheral IV Assess/Intervention Grid Peripheral IV #1 IV Activity : Start Number of Attempts : 2 Date of Insertion : 08/12/2015 CDT IV Site : Forearm Laterality : Right Catheter Size : 22 Catheter Type : Over the needle Site Condition : No complications LISS BUCKNER RN - 08/12/2015 9:46 CDT Lázaro Sensory Perception Lázaro : No impairment Moisture Lázaro : Rarely moist Activity Lázaro : Walks frequently Mobility Lázaro : No limitations Nutrition Lázaro : Excellent Friction and Shear Lázaro : No apparent problem Lázaro Score : 23 LISS BUCKNER RN - 08/12/2015 9:38 CDT Hendrich II Fall Risk Confusion/Disorientation Hendrich : No Depression Fall Risk Hendrich : No Altered Elimination Fall Risk Hendrich : No Dizziness/Vertigo Fall Risk Hendrich : Yes Gender, Male Fall Risk Hendrich : No Prescribed Antiepileptics Hendrich : No Prescribed Benzodiazepines Hendrich : Yes Rising From Chair Fall Risk Hendrich : Able to rise in a single movement, no loss of balance with steps Fall Risk Score Gabriela II : 2 LISS BUCKNER RN - 08/12/2015 9:38 CDT DC Needs Anticipated Discharge Date : 08/12/2015 CDT Discharge To, Anticipated : Home independently Home Treatments, Anticipated : None Home Equipment, Anticipated : None Professional Skilled Services, Anticipated : None Special Serv & Comm Res, Anticipated : None Needs Assistance with Transportation : No Needs Assistance at Home Upon Discharge : No LISS BUCKNER RN - 08/12/2015 9:38 CDT Source: [facility] Document Id: [id number]!12 documented in this encounter Miscellaneous Notes Miscellaneous - Nuha Butler M.D. - 08/14/2015 9:20 AM CDT Results Notification Document Contains Addenda Addendum by EVELYNE WEINBERG LPN on August 15, 2015 08:37:20 CDT noted, patient informed. voiced understanding. From: CHEO BUTLER MD To: YADIRA Butler Nurse; SOFIE SORIA MD; Sent: 08/14/2015 09:20:21 CDT Show up: 08/14/2015 09:20:00 CDT Subject: Results Notification steven please call the patient that pathology or results are normal thanks ads h pylori and celiac are normal Results: Date Result Type Result Name 08/14/2015 8:39 Document - DOC Pathology-Surg Path Source: [facility] Document Id: [id number] Electronically signed by [facility] [id number] at 09/26/2016 7:49 PM CDT Miscellaneous - Chevy Woodard RDevendra - 08/13/2015 9:40 AM CDT Discharge Follow Up Discharge Follow Up Entered On: 08/13/2015 9:40 CDT Performed On: 08/13/2015 9:40 CDT by YAMILET, CHEVY A chief meteorologist Follow Up Follow Up Completed : Via telephone Procedure Date : 08/12/2015 CDT Proceduralist : CHEO BUTLER MD Reason for Follow Up : egd followup call CHEVY WOODARD RN - 08/13/2015 9:40 CDT Uncontrolled Pain Uncontrolled Pain : No Bleeding : No Headache : No Dizziness : No Nausea/Vomiting : No Respiratory Symptoms : No Fever/Chills : No Numbness/Tingling : No Swelling : No Voiding Problems : No Do you have any questions about your discharge instructions? : No Do you have any questions or concerns regarding your medications? : No CHEVY WOODARD RN - 08/13/2015 9:40 CDT Source: [employer] Document Id: [id number] CDT!19 Miscellaneous - Conversion, Historical Provider Ser - 08/12/2015 11:30 AM CDT Coding Summary-Paper Based CODING DATE: 08/16/2015 FINAL [facility] STATUS: * Discharged to Home or Self Care PAYOR: Medicaid APC DESCRIPTION 5301 Level 1 Upper GI Procedures ADMIT DX: K31.9 Disease of stomach and duodenum, unspecified REASON FOR VISIT DX: K31.9 Disease of stomach and duodenum, unspecified FINAL DX: PRINCIPAL: K31.9 Disease of stomach and duodenum, unspecified SECONDARY: K44.9 Diaphragmatic hernia without obstruction or gangrene PYMT PROC APC STAT DESCRIPTION DOCTOR NAME DATE 29332 EGD TRANSORAL BIOPSY CHEO BUTLER MD 08/12/2015 SINGLE/MULTIPLE NOTE: The code number assigned matches the documented diagnosis and / or procedure in the patient's chart. However, the narrative phrase printed from the coding software may appear abbreviated, or result in slightly different terminology. Coded By: ROBINA HARRELL Date Saved: 08/16/2015 11:07 am Source: [employer] Document Id: [id number] Miscellaneous - Leta White RDevendra - 08/12/2015 11:15 AM CDT Adult Postprocedure Assessment Adult Postprocedure Assessment Entered On: 08/12/2015 11:19 CDT Performed On: 08/12/2015 11:15 CDT by LETA WHITE RN Vital Signs Peripheral Pulse Rate : 82 /min Respiratory Rate : 16 /min Systolic Blood Pressure : 128 mmHg Diastolic Blood Pressure : 77 mmHg NIBP Mean : 94 mmHg SpO2 : 98 % Oxygen Saturation Monitoring Frequency : Continuous Oxygen Therapy : Room air Height : 166.5 cm(Converted to: 5 ft 6 inch(es)) LETA WHITE RN - 08/12/2015 11:18 CDT PARSAP Activity Status : Moves 4 extremities voluntarily or on command Dressing : None Respiratory Component : Able to deep breathe and cough freely Pain : Pain free Circulation Component : BP 20% of preanesthetic level Ambulation : Able to stand up and walk straight Consciousness : Fully awake Fasting and Feeding : Able to drink fluids Oxygen Saturation - Sedation : Can maintain > 92% on room air Urine Output, PARSAP : Not assessed PARSAP Score : 20 LETA WHITE RN - 08/12/2015 11:18 CDT Source: [employer] Document Id: [id number] CDT!23 Miscellaneous - Leta White REmekaN. - 08/12/2015 11:09 AM CDT Hospital Patient Education The following Patient Education Materials have been given to the patient: Patient Education Materials: Ambulatory ESOPHAGEAL REFLUX (Adult) Ambulatory GERD (Adult) The esophagus is a tube that carries food from the mouth to the stomach. A valve at the lower end ofthe esophagus prevents stomach acid from flowing upward. If this valve does not work properly, acid from the stomach enters the esophagus. If this occurs over and over, the acid will injure the lining of the esophagus. This condition is called GERD (gastroesophageal reflux disease) or acid reflux. When stomach acid flows upward into the esophagus, it causes burning, pressure or sharp pain in the upper abdomen or mid to lower chest. The pain can spread to the neck, back, or shoulder, similar to heart pain (angina). There may be belching, an acid taste in the back of the throat, chronic cough, or sore throat or hoarseness. GERD symptoms often occur during the day after a big meal, but it can also occur at night whenlying down. Smoking, as well as drinking alcohol, increases the risk of GERD. GERD is a chronic condition. Once it begins, it is often lifelong. Treatment includes changes in eating habits and the use of acid mabel medications to decrease the amount of acid in the stomach. Symptoms often improve with treatment, but if treatment is stopped, the symptoms usually return after a few months. So most persons with GERD will need to continue treatment. Home Care: ?? Take the prescribed acid mabel medication for the full course of treatment even if you begin tofeel better sooner. This medication can take up to several days to fully control your symptoms. If you cant afford the prescribed medication, you can try hhve-bfi-idqzeih acid blockers, such as Pepcid AC, Tagamet, Zantac, or Aciphex. If these do not relieve your symptoms, a stronger acid-mabel can be tried, such as Prilosec OTC. ?? You can use antacids, such as Tums, Rolaids, Mylanta, or Maalox, for pain. This will be useful the first few days after starting acid blockers when the blockers havent started working yet. Follow the directions on the label. Liquid antacids may work better than tablets. Note that antacids can interfere with absorption of certain medications. Specifically, do not take Tagamet (cimetidine), Zantac (ranitidine), or Carafate (sucralfate) within 1 hour of taking an antacid. Talk with your pharmacist if you have any questions. ?? Limit or avoid fatty, fried, and spicy foods, as well as coffee, chocolate, mint, and foods with high acid content such as tomatoes and citrus fruit and juices (orange, grapefruit, lemon). ?? Avoid alcohol and smoking. ?? Dont eat large meals, especially at night. Frequent, smaller meals are best. Do not lie down right after eating. And dont eat anything 3 hours before going to bed. ?? If you are overweight, losing weight will reduce symptoms. Women should not wear corsets or girdles because this increases pressure on the stomach and worsens reflux. ?? If your symptoms occur during sleep, use a foam wedge to elevate your upper body (not just your head.) Or, place 4 blocks under the head of your bed. Follow Up with your doctor or as advised by our staff. Further testing may be needed. If you do not begin to improve over the next 4 days, contact your doctor. If you had an x-ray, CT scan, or ECG (electrocardiogram), it will be reviewed by a specialist. Youll be notified of any new findings that affect your care. Get Prompt Medical Attention if any of the following occur: ?? Stomach pain gets worse or moves to the lower right abdomen (appendix area) ?? Chest pain appears or gets worse, or spreads to the back, neck, shoulder, or arm ?? Frequent vomiting (cant keep down liquids) ?? Blood in the stool or vomit (red or black in color) ?? Feeling weak or dizzy, fainting, or trouble breathing ?? Fever of 100.4??F (38??C) or higher, or as directed by your healthcare provider ?? [id number] [place] [address]. All rights reserved. This information is not intended as a substitute for professional medical care. Always follow your healthcare professional's instructions. This document has images extracted. Please consider using [employer] for all your patient education needs. Source: [facility] Document Id: [id number] Miscellaneous - Leta White REmekaN. - 08/12/2015 11:00 AM CDT Adult Postprocedure Assessment Adult Postprocedure Assessment Entered On: 08/12/2015 11:08 CDT Performed On: 08/12/2015 11:00 CDT by LETA WHITE RN Vital Signs Peripheral Pulse Rate : 98 /min Respiratory Rate : 16 /min Systolic Blood Pressure : 128 mmHg Diastolic Blood Pressure : 85 mmHg NIBP Mean : 99 mmHg SpO2 : 98 % Oxygen Saturation Monitoring Frequency : Continuous Oxygen Therapy : Room air Height : 166.5 cm(Converted to: 5 ft 6 inch(es)) LETA WHITE RN - 08/12/2015 11:07 CDT PARSAP Activity Status : Moves 4 extremities voluntarily or on command Dressing : None Respiratory Component : Able to deep breathe and cough freely Pain : Pain free Circulation Component : BP 20% of preanesthetic level Consciousness : Fully awake Fasting and Feeding : Able to drink fluids Oxygen Saturation - Sedation : Can maintain > 92% on room air Urine Output, PARSAP : Not assessed LETA WHITE RN - 08/12/2015 11:07 CDT Source: [employer] Document Id: [id number] CDT!21 Miscellaneous - Leta White R.N. - 08/12/2015 10:45 AM CDT Adult Postprocedure Assessment Adult Postprocedure Assessment Entered On: 08/12/2015 11:07 CDT Performed On: 08/12/2015 10:45 CDT by LETA WHITE RN Vital Signs Peripheral Pulse Rate : 91 /min Respiratory Rate : 16 /min Systolic Blood Pressure : 131 mmHg Diastolic Blood Pressure : 82 mmHg NIBP Mean : 98 mmHg SpO2 : 98 % Oxygen Saturation Monitoring Frequency : Continuous Oxygen Therapy : Room air Height : 166.5 cm(Converted to: 5 ft 6 inch(es)) LETA WHITE RN - 08/12/2015 11:06 CDT Peripheral IV Peripheral IV Assess/Intervention Grid Peripheral IV #1 IV Activity : Start Removal : Catheter intact Number of Attempts : 2 Date of Insertion : 08/12/2015 CDT IV Site : Forearm Laterality : Right Catheter Size : 22 Catheter Type : Over the needle LETA WHITE RN - 08/12/2015 11:06 CDT PARSAP Activity Status : Moves 4 extremities voluntarily or on command Dressing : None Respiratory Component : Able to deep breathe and cough freely Pain : Pain free Circulation Component : BP 20% of preanesthetic level Consciousness : Fully awake Fasting and Feeding : Able to drink fluids Oxygen Saturation - Sedation : Can maintain > 92% on room air Urine Output, PARSAP : Not assessed LETA WHITE RN - 08/12/2015 11:06 CDT Source: [facility] Document Id: [id number] CDT!32 documented in this encounter Plan of Treatment Not on filedocumented as of this encounter Procedures Procedure Name Priority Date/Time Associated Diagnosis Comme nts SURGICAL PATHOLOGY Routine 08/12/2015 11:29 AM Re sults for this CDT procedure are i n the results section. documented in this encounter Results Pathology Surgical Pathology (08/12/2015 11:29 AM CDT) Specimen (Source) Anatomical Collection Method Collection Time Re ceived Time Location / / Volume Laterality 08/12/2015 11:29 AM CDT Narrative [facility] - 08/14/2015 8:39 AM CDT [facility] in [address] [place] [id number] Patient Name: SILVIA BLANCHARD Patient ID #: [id number] Collected: 08/12/2015 Address: City/State/Zip: [address] [place] [address] ??[phone] Received: Reported: 08/13/2015 08/14/2015 Soc. Sec. #: ?/Age/Sex 1985 (Age: 30) ??F Physician(s): DEJA BUTLER MD Copy To: ? [facility] [place] ??[id number] [place], ??[place] ??[id number] SURGICAL PATHOLOGY REPORT FINAL DIAGNOSIS: DUODENUM, BIOPSIES (A): --- DUODENAL MUCOSA WITHOUT DIAGNOSTIC A BNORMALITY. GASTRIC ANTRUM, BIOPSIES (B): --- GASTRIC MUCOSA WITHOUT DIAGNOSTIC AB NORMALITY. --- NEGATIVE DIFF-QUIK STAIN. praveena/08/14/2015 RICKY ALFONSO M.D. Report electronically released. Interpretation by RICKY ALFONSO M.D. SPECIMEN(S) RECEIVED: 1:A. ??DUODENUM BIOSY (R/O CELIAC) 2:B. ??ANTRUM BIOPSY (R/O H. PYLORI) CLINICAL HISTORY: EGD GROSS DESCRIPTION: A. ??Duodenum. ??Consists of mucosal fra gments to a 3 mm diameter. ??ESB, A. B. ??Antrum. ??Consists of mucosal fragm ents to a 2 mm diameter. ??ESB, B. ([id number], [id number], [id number]) DDG/PAP/08/13/2015 MICROSCOPIC DESCRIPTION: CONTROLS REVIEWED; RESULTS ACCEPTABLE. Reviewed by Ricky Alfonso M.D.; Patholo gist PRAVEENA/08/14/2015 A Lorraine Butler Jr., M.D. LAB SURG PATH ORDERABLES Performing Organization Address City/State/ZIP Code Phon e Number [facility] documented in this encounter Visit Diagnoses Not on filedocumented in this encounter
--- OUTSIDE RECORDS SUMMARY | 2022-02-03 23:57 | XMS_ITS | Encounter Summary ---
:1985 Author Organization [facility] Address [address] [place] [address] Care Team Providers Name Role Phone Unavailable Primary Care Provider Unavailable Encounter Details Date Type Department Care Team Description 11/14/2015 Hospital Encounter HX [facility] Alcides Hill M.D. [address] [place] [phone] (Wo rk) Social History Tobacco Use Types Packs/Day Years Used Date Smoking Tobacco: Never Assessed Sex Assigned at Date Recorded Not on file documented as of this encounter Last Filed Vital Signs Vital Sign Reading Time Taken Comments Blood Pressure 119/69 11/14/2015 10:50 AM CDT Pulse 83 11/14/2015 10:50 AM CDT Temperature - - Respiratory Rate 18 11/14/2015 10:50 AM CDT Oxygen Saturation - - Inhaled Oxygen Concentration - - Weight - - Height 166 cm (5' 5.35) 11/14/2015 10:50 AM CDT Body Mass Index - - documented in this encounter Discharge Summaries Isabella Kaur, L.P.N. - 11/14/2015 11:26 AM CDT ED Discharge Instructions [facility] [address] [facility] [place] [address] Name: SILVIA VASQUEZ Date of : 1985 12:00 AM Visit Date: 11/14/2015 10:38 AM [facility] Number: [phone] Address: [address] [place] [phone] Primary Care Provider: SOFIE VÁZQUEZ MD IMPORTANT: in [place] would like to thank you for allowing [...] if you dont have one. Go to [email or web address] and click on Create Your Account. Then, follow the directions to complete the online form. Youll be asked for your [facility] number which you can find at the top of this document. ED Tests and Procedures: Order Status Rapid Strep Confirmation Ordered Strep A Screen Rapid Completed Discharge Prescriptions [...] Date Time Provider Signature Date Time Source: [facility] POWERCHART Document Id: [id number] Isabella Kaur L.P.N. - 11/14/2015 11:26 AM CDT ED Depart Summary [facility] Emergency Department / Urgent Care Clinical Discharge Summary PERSON INFORMATION Name SILVIA VASQUEZ Age 30 Years 1985 12:00 AM Sex Female Language Afghan PCP SOFIE VÁZQUEZ MD Marital Status Visit Id Visit Reason UC - Sore Throat; SORE THROAT [facility] Urgent Care Referred by Track Group [facility] ED/UC Discharge 11/14/2015 11:26 AM Tracking Id [id number] Checkout 11/14/2015 11:26 AM Checkin 11/14/2015 10:38 AM Acuity 4 -Less Urgent Dispo Type * Discharged to Home or Self Care Arrival 11/14/2015 10:38 AM Reg Status Complete LOS 000 00:48 Address: [address] [place] [phone] Comment: PROVIDER INFORMATION Provider Role Provider Contact Time ALCIDES HILL MD ED Provider 11/14/15 10:42 ISABELLA KAUR LPN ED Nurse 11/14/15 10:42 DIAGNOSIS Comment: PATIENT EDUCATION INFORMATION Instructions: Follow up: Source: [facility] POWERCHART Document Id: [id number] documented in this encounter Progress Notes Alcides Hill M.D. - 11/14/2015 10:38 AM CDT [id number] CHIEF COMPLAINT/REASON FOR VISIT Sore throat. HISTORY OF PRESENT ILLNESS Ms. Vasquez is a pleasant 30-year-old female who came into Urgent Care this morning complaining of the sore throat on the left. She has noticed the pain for last 6 to 8 days. She also noticed left sided jaw pain and pain shooting to her left ear. Otherwise no fevers, no cough, runny nose. She has no allergy to medication. PHYSICAL EXAMINATION GENERAL: NAD. VITAL SIGNS: Stable, afebrile. HEENT: Oropharyngeal mucosa: Noticed that she does have slight redness of the oropharynx on the leftside and her tonsils are slightly enlarged. No exudation though. NECK: Supple. Some tenderness around the left side jaw, submandibular area, probably an enlarged cervical lymph node on left side on palpation. Trachea midline. DIAGNOSTICS Rapid strep test came back negative. IMPRESSION/REPORT/PLAN Sore throat and pharyngitis. PLAN: Discussed with the patient. She was reassured. She would really like to try a course of antibiotics, and I put her on the amoxicillin 1 g 2 times a day for 10 days. Continue observation. Take some Tylenol or Motrin as needed. Gargle with salt water as needed and recheck as needed at Urgent Care. Alcides Hill M.D./guillermo Electronically Signed By: ALCIDES HILL MD On: 11/15/2015 04:54 PM Source: [facility] MHSDOLBEYNONRADSYS Document Id: [id number] documented in this encounter H&P Notes Isabella Kaur L.PEmekaNEmeka - 11/14/2015 10:50 AM CDT Urgent Care Intake Urgent Care Intake Entered On: 11/14/2015 10:50 CDT Performed On: 11/14/2015 10:50 CDT by ISABELLA KAUR LPN Intake Chief Complaint : SORE THROAT Temperature Core : 36.8 DegC(Converted to: 98.2 DegF) Peripheral Pulse Rate : 83 /min Respiratory Rate : 18 /min Heart Rhythm : Regular Systolic Blood Pressure : 119 mmHg Diastolic Blood Pressure : 69 mmHg NIBP Mean : 86 mmHg BP Location : Left upper extremity Height : 166 cm(Converted to: 5 ft 5 inch(es), 65 inch(es)) ISABELLA KAUR [facility] 11/14/2015 10:50 CDT General Info Information Given By : Patient Languages : Afghan Is Patient Female and 13-50 no hysterectomy : Yes Status : Patient denies Are you ? : No ISABELLA KAUR [facility] 11/14/2015 10:50 CDT Subjective Pain Symptoms : Yes ISABELLA KAUR [facility] 11/14/2015 10:50 CDT Pain Scale Pain Scale Verbal 0-10 : Open ISABELLA KAUR [facility] 11/14/2015 10:50 CDT Pain Pain Assessment Grid Pain 1 Location : Throat Intensity : 6 ISABELLA KAUR L TACKER11/14/2015 10:50 CDT Dependent Habits Exposure to Tobacco Smoke : Patient smokes, Other: occ alcohol Smoking Status : Current every day smoker Tobacco 2A : Yes Tobacco Use/Currently Using : Yes Tobacco Use/Last 30 Days : Yes Tobacco Use/Last 12 months : Yes Type : Cigarettes: Less than 20 per day Tobacco Use/Advised to Quit : Yes ISABELLA KAUR L TACKER11/14/2015 10:50 CDT Caffeine Use Grid Caffeine Use : None ISABELLA KAUR [facility] 11/14/2015 10:50 CDT Recreational Drug Use Grid Drug Use : None ISABELLA KAUR L TACKER11/14/2015 10:50 CDT Nutrition Nutrition Risk Factors by History Adult : None ISABELLA KAUR [facility] 11/14/2015 10:50 CDT Functional Current Daily Living Assistance : None ISABELLA KAUR [facility] 11/14/2015 10:50 CDT Psychosocial Domestic Abuse Concerns : None Behavioral Health Screen/Safety Assmt : No Muslim Preference : No Muslim Affiliation ISABELLA KAUR [facility] 11/14/2015 10:50 CDT Advance Directive Advanced Directives : No Advance Directive Additional Information : No ISABELLA KAUR [facility] 11/14/2015 10:50 CDT Educ Needs Learning Style Preference Adult Grid Patient : Printed materials Family : None ISABELLA KAUR [facility] 11/14/2015 10:50 CDT Source: [employer] POWERCHART Document Id: [id number] CDT!57 documented in this encounter ED Notes Isabella Kaur L.P.N. - 11/14/2015 11:26 AM CDT ED Disposition Summary ED Disposition Summary Entered On: 11/14/2015 11:26 CDT Performed On: 11/14/2015 11:26 CDT by ISABELLA KAUR LPN ED Disposition Summary Present in Room During Exam/Procedure : Alone Discharge From ED With : Home Med List Printed Discharge Instructions Given to Patient : Yes ISABELLA KAUR LPN - 11/14/2015 11:26 CDT Source: [employer] Document Id: [id number] CDT!5 Sangita Allen REmekaNEmeka - 11/14/2015 10:40 AM CDT ED Triage Assessment Document Has Been Updated ED Triage Assessment Entered On: 11/14/2015 10:41 CDT Performed On: 11/14/2015 10:40 CDT by SANGITA ALLEN RN Reason For Visit (As Of: 11/14/2015 10:41:31 CDT) Problems(Active) Disease Gastroesophageal Reflux (GERD ERMELINDA) (ICD-10-CM :K21.9 ) Name of Problem: Disease Gastroesophageal Reflux (GERD ERMELINDA) ; Recorder: CHEO KHAN MD; Confirmation: Confirmed ; Classification: Medical ; Code: K21.9 ; Contributor System: [employer] ; Last Updated: 08/12/2015 10:33 CDT ; Life Cycle Status: Active ; Responsible Provider: CHEO KHAN MD; Vocabulary: ICD-10-CM Diagnoses(Active) UC - Sore Throat Date: 11/14/2015 ; Diagnosis Type: Reason For Visit ; Confirmation: Complaint of ; Clinical Dx: UC - Sore Throat ; Classification: Medical ; Clinical Service: Emergency medicine ; Code: PNED ; Probability: 0 ; Diagnosis Code: [id number] Triage Chief Complaint Description : sore throat on left side Information Given By : Patient Present in Room During Exam/Procedure : Alone Mode of Arrival ED : Private vehicle Track : Medical Languages : Afghan Patient Informed of Triage Location : Urgent Care Treatments Prior to Arrival : None Is Patient Female and 13-50 no hysterectomy : Yes SANGITA ALLEN RN - 11/14/2015 10:40 CDT Pain Assessment Pain Symptoms : Yes SANGITA ALLEN RN - 11/14/2015 10:40 CDT Pain Scale Pain Scale Verbal 0-10 : Open SANGITA ALLEN RN - 11/14/2015 10:40 CDT Pain Pain Assessment Grid Pain 1 Location : Throat SANGITA ALLEN RN - 11/14/2015 10:40 CDT DENNY DENNY Level 1 : No DENNY Level 2 : No DENNY Level 3 : One SANGITA ALLEN RN - 11/14/2015 10:40 CDT DCP GENERIC CODE Tracking Acuity : 4 -Less Urgent Tracking Group : [facility] ED/ SANGITA ALLEN RN - 11/14/2015 10:40 CDT Source: [employer] Document Id: [id number] CDT!26 documented in this encounter Miscellaneous Notes Miscellaneous - Alcides Hill M.D. - 11/14/2015 11:25 AM CDT Work Excuse November 14, 2015 SILVIA VASQUEZ [address] [place] [address] [phone] Dear SILVIA VASQUEZ, You were examined in my office on: Reason for work excuse: Medical Illness ( x ) Yes ( _ ) No Injury ( _ ) Yes ( _ ) No Is excused from all work: ( x ) Yes ( _ ) No Has work limitations: ( _ ) Yes ( _ ) No As follows: _ Limitations apply until: _ Follow-Up Appointment : ( _ ) Return to Work date: November 14. Notes: _ Sincerely, ALCIDES HILL [address] [place] [address] Electronic Signature Electronically Signed By: ALCIDES HILL MD On: November 14, 2015 This document has images extracted. Source: [facility] [employer] Document Id: [id number] Electronically signed by [facility] Technical Director [id number] at 09/26/2016 10:43 PM CDT Alcides Hernandez M.D. - 11/14/2015 11:25 AM CDT School Excuse November 14, 2015 SILVIA VASQUEZ [address] [place] [address] [phone] Dear SILVIA VASQUEZ, You were examined in my office on: To return to school today: ( _ ) Yes ( _ ) No To return to regular activity: ( _ ) Yes ( _ ) No To have modified activity: ( _ ) Yes ( _ ) No As follows: ( _ ) No contact sports ( _ ) May do upper body activities ( _ ) May do lower body activities ( _ ) May do walking program ( _ ) No physical activity ( _ ) Other: _ Duration of activity restriction: ( _ ) Days ( _ ) Weeks ( _ ) Months ( _ ) Other: _ Physical Therapy referral: ( _ ) Yes ( _ ) No School Medication / Procedure Form completed: ( _ ) Yes ( _ ) Not necessary Notes: _ Sincerely, ALCIDES HILL [facility] [place] [address] Electronic Signature Electronically Signed By: ALCIDES HILL MD On: November 14, 2015 This document has images extracted. Source: [facility] [employer] Document Id: [id number] Electronically signed by [facility], [facility] Technical Director [id number] at 09/26/2016 10:43 PM CDT Alcides Hernandez M.D. - 11/14/2015 11:24 AM CDT School Excuse November 14, 2015 SILVIA VASQUEZ [address] [place] [address] [phone] Dear SILVIA VASQUEZ, You were examined in my office on: To return to school today: ( _ ) Yes ( _ ) No To return to regular activity: ( _ ) Yes ( _ ) No To have modified activity: ( _ ) Yes ( _ ) No As follows: ( _ ) No contact sports ( _ ) May do upper body activities ( _ ) May do lower body activities ( _ ) May do walking program ( _ ) No physical activity ( _ ) Other: _ Duration of activity restriction: ( _ ) Days ( _ ) Weeks ( _ ) Months ( _ ) Other: _ Physical Therapy referral: ( _ ) Yes ( _ ) No School Medication / Procedure Form completed: ( _ ) Yes ( _ ) Not necessary Notes: _ Sincerely, ALCIDES HILL [address] [place] [address] Electronic Signature Electronically Signed By: ALCIDES HILL MD On: November 14, 2015 This document has images extracted. Source: [employer] Document Id: [id number] Miscellaneous - Alcides Hill M.D. - 11/14/2015 11:18 AM CDT Work Excuse November 14, 2015 SILVIA VASQUEZ [address] [place] [address] [phone] Dear SILVIA VASQUEZ, You were examined in my office on: Reason for work excuse: Medical Illness ( x ) Yes ( _ ) No Injury ( _ ) Yes ( _ ) No Is excused from all work: ( x ) Yes ( _ ) No Has work limitations: ( _ ) Yes ( _ ) No As follows: _ Limitations apply until: _ Follow-Up Appointment : ( _ ) Return to Work date: . Notes: _ Sincerely, ALCIDES HILL [address] [place] [address] Electronic Signature Electronically Signed By: ALCIDES HILL MD On: November 14, 2015 This document has images extracted. Source: [employer] Document Id: [id number] Electronically signed by [employer], [facility] Technical Director [id number] at 09/26/2016 10:43 PM CDT documented in this encounter Plan of Treatment Not on filedocumented as of this encounter Procedures Procedure Name Priority Date/Time Associated Diagnosis Comme nts RAPID STREP A Routine 11/14/2015 10:48 AM Results for this SCREEN CDT procedure are i n the results section. RAPID STREP A Routine 11/14/2015 10:48 AM Results for this SCREEN CDT procedure are i n the results section. documented in this encounter Results Rapid Strep A Screen (11/14/2015 10:48 AM CDT) [facility] [employer] Method Time Signature HXRapid Strep POWERCHART Confirmation HXPre Negative for POWERCHART Group A Strep by culture. HXFinal Negative for POWERCHART Group A Strep by culture. Specimen Anatomical Collection Method Collection Time Receive d Time (Source) Location / / Volume Laterality Throat 11/14/2015 10:48 11/14/2015 AM CDT 10:48 AM CDT Alcides Hill M.D. LAB MICROBIOLOGY - GENERAL [place] Performing Organization Address City/[facility] Code Phon e Number POWERCHART Rapid Strep A Screen (11/14/2015 10:48 AM CDT) [facility] [employer] Method Time Signature HXStrep A POWERCHART Screen Rapid HXFinal Negative for POWERCHART Strep Group A by rapid screen. HXFinal Culture POWERCHART confirmation to follow. Specimen (Source) Anatomical Collection Method Collection Time Re ceived Time Location / / Volume Laterality Throat 11/14/2015 10:48 AM CDT Alcides Hill M.D. LAB MICROBIOLOGY - GENERAL [place] Performing Organization Address City/State/ZIP Code Phon e Number POWERCHART documented in this encounter Visit Diagnoses Not on filedocumented in this encounter
--- OUTSIDE RECORDS SUMMARY | 2022-02-03 23:58 | XMS_ITS | Encounter Summary ---
:1985 Author Organization [facility] Address [address] [place] [address] Care Team Providers Name Role Phone Unavailable Primary Care Provider Unavailable Encounter Details Date Type Department Care Team Description 10/03/2004 Hospital Encounter HX [facility] Provider, Historical WOMENSCOUT Social History Tobacco Use Types Packs/Day Years Used Date Smoking Tobacco: Never Assessed Sex Assigned at Date Recorded Not on file documented as of this encounter Plan of Treatment Not on filedocumented as of this encounter Visit Diagnoses Not on filedocumented in this encounter
--- OUTSIDE RECORDS SUMMARY | 2022-02-03 23:58 | XMS_ITS | Encounter Summary ---
:1985 Author Organization [facility] Address [address] [place] [address] Care Team Providers Name Role Phone Unavailable Primary Care Provider Unavailable Encounter Details Date Type Department Care Team Description 03/16/2010 Hospital Encounter HX NO MAPPING Isa Casiano M.D. [address] [place] [phone] (Wo rk) Social History Tobacco Use Types Packs/Day Years Used Date Smoking Tobacco: Never Assessed Sex Assigned at Date Recorded Not on file documented as of this encounter Discharge Summaries Conversion, Historical Provider Ser - 03/16/2010 6:32 AM CST ED Discharge Instructions [facility] - [address] [address] Name: SILVIA STEELE Date of : 1985 12:00 AM Visit Date: 03/16/2010 3:42 AM FIN: Current Date: 03/16/2010 06:32:33 Address: Phone: Primary Care Provider: Name: IMPORTANT: [facility] would like to thank you for allowing us to assist you with your healthcare needs. We examined and treated you today on an emergency basis only. This was not a substitute for, or an effort to provide, complete medical care. If you had any cultures, special tests, or x-rays performed during your visit, your final reports will be reviewed and we will contact you ifthere are any new or significant findings other than what was discussed with you during your visit today. You have received patient education materials and information regarding your injury/illness. Follow these instructions and take all medications as prescribed. If you, ( SILVIA STEELE ), haveany problems that we have not discussed, please call or visit your doctor right away. If you cannot reach your doctor, return to the Emergency Department. IMPORTANTE: [facility] des[facility] agrade[facility] por permitirnos asistirlo con nai necesidades m??dicas. Hoy lo examinamos y tratamos s??lo en base a fady emergencia. [place] no constituy?? ni un sustituto ni un esfuerzo para proveer atenci??n m??dica completa. Si kaushal quintero visita se le hicieronculturas, ex??menes especiales o trent X, quintero informe final ser?? estudiado y nos pondremos en contacto con usted si hubiera cualquier informaci??n nueva o significativa diferente de lo que discutimos con usted kaushal quintero visita de kiarra. Usted campos recibido materiales educativos para pacientes e informaci??n referente a quintero lesi??n/enfermedad. Siga estas instrucciones y tome todos los medicamentos prescriptos. Si usted ( SILVIA STEELE ), tuviera cualquier otro problema que no hayamos discutido, porfavor llame o visite a quintero doctor inmediatamente. Si no puede ubicar a quintero doctor, vuelva al Departamento de Emergencias. Follow-Up Instructions: With: Address: When: Follow up with primary care provider Within As Needed Comments: If symptoms worsen or if not improving in 4-5 days. Patient Education Materials: MEDICATION: AMOXICILLIN You have been prescribed Amoxicillin. This is an antibiotic related to penicillin. DIRECTIONS FOR USE: Amoxicillin may be taken with food to prevent upset stomach. Take the medicine at regular intervals.If the label says EVERY 8 HOURS, this means THREE times per day. Doses do not have to be exactly eight hours apart, but should be spaced out evenly three times a day. Take all of the medicine until it is gone, even if you are feeling better. This will ensure that theinfection is completely cleared up. WHAT TO WATCH FOR: POSSIBLE SIDE EFFECTS: Nausea, diarrhea, abdominal pain --> (Contact your doctor if any of these symptoms persist or become severe). Vaginal itching or discharge --> (Contact your doctor). ALLERGIC REACTION: Rash, itching, swelling, trouble breathing or swallowing --> (Contact your doctor or return to this facility promptly). IMPORTANT MEDICAL CONDITIONS: Before starting this medicine, be sure your doctor knows if you have any of the following conditions: -- Allergic reaction to Cephalosporin or Penicillin-type drugs in the past -- Current infection with mononucleosis -- Breast feeding DRUG INTERACTION: If you are already taking any of the following medicines, be sure to notify your doctor before taking this drug: -- Allopurinol WARNING: In rare cases, this medicine may block the effect of CONTROL PILLS. Therefore, if youare a woman using control pills, you should use another form of contraception during the menstrual cycle(s) in which you are taking this medicine. Do not stop taking your control pills. [NOTE: This information topic may not include all directions, precautions, medical conditions, drug/food interactions and warnings for this drug. Check with your doctor, nurse or pharmacist for any questions that you may have.] SINUSITIS [Abx tx] The sinuses are air-filled spaces within the bones of the face. They connect to the inside of the nose. Sinusitis is an inflammation of the tissue lining the sinus cavity. Sinus inflammation can occur during a cold or hay-fever (allergies to pollens and other particles in the air) and cause symptoms of sinus congestion and fullness. A sinus infection causes fever, headache and facial pain. There is usually green or yellow drainage from the nose or into the back of the throat (post-nasal drip). Antibiotics are prescribed to treat this condition. HOME CARE: 1) Drink plenty of water, hot tea, and other liquids to stay well hydrated. This thins the mucus andpromotes sinus drainage. 2) Apply heat to the painful areas of the face. Use a towel soaked in hot water. Or, chain repairer the shower and direct the hot spray onto your face. This is a good way to inhale warm water vapor and get heat on your face at the same time. (Cover your mouth and nose with your hands so you can still breathe as you do this.) 3) Use a vaporizer with products such as Vicks VapoRub (contains menthol) at night. Suck on peppermint, menthol or eucalyptus hard candies during the day. 4) An expectorant containing guaifenesin such as Robitussin, helps to thin the mucus and promote drainage from the sinuses. 5) Wbys-lgw-zchebem decongestants may be used unless a similar medicine was prescribed. Nasal sprayswork the fastest. Use one that contains phenylephrine (Fran-synephrine, Sinex and others) or oxymetazoline (Afrin). First blow the nose gently to remove mucus, then apply the drops. Do not use these medicines more often than directed on the label or for more than three days or symptoms may worsen. You may also use tablets containing pseudoephedrine (Sudafed). Many sinus remedies combine ingredients, which may increase side effects. Read the labels or ask the pharmacist for help. NOTE: Persons with high blood pressure should not use decongestants. They can raise blood pressure. 6) Antihistamines are useful only if allergies are a cause of your sinusitis. The mildest one is chlorpheniramine. The dose for adults is 8-12mg three times a day. You can also use non-sedating antihistamines such as Claritin or Juju. 7) Do not use nasal rinses or irrigation during an acute sinus infection, unless advised by your doctor. Rinsing may spread the infection to other sinuses. 8) You may use acetaminophen (Tylenol) or ibuprofen (Motrin, Advil) to control pain, unless another pain medicine was prescribed. [NOTE: If you have chronic liver or kidney disease or ever had a stomach ulcer, talk with your doctor before using these medicines.] (Aspirin should never be used in anyoneunder 18 years of age who is ill with a fever. It may cause severe liver damage.) 9) Finish the full course, even if you are feeling better after a few days. FOLLOW UP with your doctor or this facility in one week or as instructed by our staff if not improving. RETURN PROMPTLY or contact your doctor if any of the following occur: -- Facial pain or headache becomes more severe or you develop a stiff neck -- Unusual drowsiness or confusion, or not acting like your normal self -- Swelling of the forehead or eyelids -- Unable to move the eye iabq-ab-intr or up-and-down -- Vision problems including blurred or double vision -- Fever over 101.5?? F (38.6 C) oral for more than three days on antibiotics -- Seizure PNEUMONIA [Adult] PNEUMONIA is an infection deep within the lung. It may be due to a virus or bacteria and is usually treated with an antibiotic. Severe cases require treatment in the hospital. Milder cases can be treated at home. Symptoms usually start to improve during the first two days of treatment. HOME CARE: 1) Rest at home for the first 2-3 days or until you feel stronger. When resuming activity, don't letyourself become overly tired. 2) Avoid exposure to cigarette smoke (yours or others). 3) You may use acetaminophen (Tylenol) or ibuprofen (Motrin, Advil) to control pain, unless another medicine was prescribed. [NOTE: If you have chronic liver or kidney disease or ever had a stomach ulcer or GI bleeding, talk with your doctor before using these medicines.] (Aspirin should never be usedin anyone under 18 years of age who is ill with a fever. It may cause severe liver damage.) 4) Your appetite may be poor so a light diet is fine. Keep well hydrated by drinking 6-8 glasses of fluids per day (water, soft drinks, juices, tea, soup, etc.). This will help loosen secretions in thelung, making it easier for you to cough up the phlegm (sputum). If you also have heart or kidney disease, check with your doctor before you drink extra amounts of fluids. 5) Finish all antibiotic medicine prescribed, even if you are feeling better after a few days. FOLLOW UP with your doctor in the next 2-3 days (or as advised) to be sure you are responding properly to the medicine. [NOTEn: If you are age 65 or older, or if you have chronic lung disease (asthma, emphysema or COPD),we recommend a PNEUMOCOCCAL VACCINATION every five years and a yearly INFLUENZA VACCINATION (flu-shot) every . Ask your doctor about this.] [NOTE: If you had an X-ray or EKG (cardiogram), it will be reviewed by a specialist. You will be notified of any new findings that may affect your care.] RETURN PROMPTLY or contact your doctor if any of the following occur: -- Not getting better within the first 48 hours of treatment -- More trouble breathing -- Coughing up blood or increasing chest pain with breathing -- Fever over 101.5??F (38.0??C) for more than two days -- Increasing weakness, dizziness or fainting -- Increasing thirst or dry mouth -- Sinus pain, headache or a stiff neck -- Chest pain not caused by coughing Discharge Prescriptions & Home Medications: Medication/Strength Dose Route Frequency Indications/Special Instructions/Comments amoxicillin (amoxicillin 500 mg oral capsule) 1,000 mg Oral two times a day Attention: If you have any medications at home that are not on this list, please contact your provider for clarification. Patient Visit Summary: SILVIA STEELE has been given the following list of patient education materials, prescriptions, Home Medications and follow-up instructions: Follow-up Instructions: With: Address: When: Follow up with primary care provider Within As Needed Comments: If symptoms worsen or if not improving in 4-5 days. Patient Education Materials: AMOXICILLIN; SINUSITIS, Abx Tx; PNEUMONIA (Adult) Discharge Prescriptions & Home Medications: Medication/Strength Dose Route Frequency Indications/Special Instructions/Comments amoxicillin (amoxicillin 500 mg oral capsule) 1,000 mg Oral two times a day Attention: If you have any medications at home that are not on this list, please contact your provider for clarification. IMPORTANT: I, ( SILVIA STEELE ), have received the above patient education materials/instructions and have verbalized understanding. My questions have been answered. I understand I may receive a follow-up call from the Emergency Department staff regarding my health. If seen for an occupational injury or illness, I understand that work-related medical information may be released to my employer or employers textile designs sales representative. I understand that restrictions apply both on and off duty, but do not prevent me from performing reasonable self-cares or prescribed exercises. Yo, ( SILVIA STEELE ), he recibido los materiales educativos/instrucciones para pacientes y heverbalizado mi entendimiento. Mis preguntas fueron contestadas. Entiendo que podr??a recibir fady llamada de seguimiento por parte del personal del Departamento de Emergencias concerniente a mi corrine. Si he sido atendido por fady lesi??n o enfermedad ocupacional, comprendo que la informaci??n m??dica relacionada con el trabajo puede ser proporcionada a mi empleador o a un representante del mismo. Comprendo que existen restricciones tanto dentro pj fuera del trabajo, vicky no previenen que efect??e ejercicios razonables prescriptos o de autocuidado. Patient Signature - Firma Date/Time - Fecha/Hora Responsible Person Signature (as appropriate) Date/Time - Fecha/Hora SILVIA STEELE or Responsible Person has received this information and tells me that all questions have been answered. Provider Signature Date/Time - Fecha/Hora This document has images extracted. Please consider using [employer] for all your patient education needs. Source: [employer] Document Id: [id number] Conversion, Historical Provider Ser - 03/16/2010 6:32 AM CST ED Depart Summary [facility] Emergency Department Clinical Discharge Summary PERSON INFORMATION Name SILVIA STEELE Age 24 Years 1985 12:00 AM Sex Female Language PCP Marital Status Phone Visit Id Visit Reason Nauseated; Dizziness; congestion, nausea Specialty Enc Type Emergency Med Service Emergency Medicine Referred by [facility] ED Discharge 03/16/2010 6:22 AM Tracking Id [id number] Checkout 03/16/2010 6:22 AM Checkin 03/16/2010 3:42 AM Acuity Dispo Type Discharged to Home or Self Care Arrival 03/16/2010 3:42 AM Reg Status LOS 000 02:40 Address: Comment: PROVIDER INFORMATION Provider Role Assigned Unassigned ISA CASIANO MD ED Provider 03/16/2010 3:50 AM MIR CABRAL SPECIAL NEEDS CAREGIVER Nurse 03/16/2010 3:50 AM DIAGNOSIS Acute sinusitis NOS; Bacterial pneumonia NOS Comment: ORDERS INFORMATION Start Time Order Type Status Stop Time Provider 03/16/2010 5:[address] Head w/o contrast Radiology Completed 03/16/2010 5:01 AM ISA CASIANO MD 03/16/2010 4:39 AM Comprehensive Metabolic Panel Laboratory Completed 03/16/2010 5:48 AM ISA CASIANO MD 03/16/2010 4:38 AM CBC (includes Auto Differential) Laboratory Completed 03/16/2010 5:01 AM ISA CASIANO MD 03/16/2010 5:06 AM ibuprofen Pharmacy Completed 03/16/2010 5:11 AM ISA CASIANO MD 03/16/2010 4:21 AM XR Chest 2 Views Radiology Completed 03/16/2010 4:21 AM ISA CASIANO MD PATIENT EDUCATION INFORMATION Instructions: AMOXICILLIN; SINUSITIS, Abx Tx; PNEUMONIA (Adult) Follow up: With: Address: When: Follow up with primary care provider Within As Needed Comments: If symptoms worsen or if not improving in 4-5 days. Source: [facility] POWERCHART Document Id: [id number] documented in this encounter Nursing Notes Conversion, Historical Provider Ser - 03/16/2010 5:19 AM CST ED Primary Assessment ED Primary Assessment Entered On: 03/16/2010 5:20 PRODUCT SUPPORT MANAGER Performed On: 03/16/2010 5:19 PRODUCT SUPPORT MANAGER by MIR CABRAL RN Reason For Visit Diagnoses(Active) Dizziness Date: 03/16/2010 4:24 PRODUCT SUPPORT MANAGER ; Diagnosis Type: Reason For Visit ; Confirmation: Complaint of ; Classification: Medical ; Clinical Service: Non- Specified ; Code: PNED ; Probability: 0 ; DiagnosisCode: [id number] Nauseated Date: 03/16/2010 4:24 PRODUCT SUPPORT MANAGER ; Diagnosis Type: Reason For Visit ; Confirmation: Complaint of ; Classification: Medical ; Clinical Service: Non- Specified ; Code: PNED ; Probability: 0 ; DiagnosisCode: [id number] Triage Chief Complaint Description: Pt has not had any emesis. States dizzyness is better Information Given By: Patient Accompanied By: Spouse Mode of Arrival ED: Private vehicle Track: Medical Languages: [place] Pain Symptoms: No Vital Signs Assessed: Yes GCS Assessed: Yes IMR CABRAL RN - 03/16/2010 5:19 PRODUCT SUPPORT MANAGER Vital Signs Peripheral Pulse Rate: 82/min Respiratory Rate: 20/min Systolic Blood Pressure: 114mmHg Diastolic Blood Pressure: 67mmHg NIBP Mean: 83mmHg BP Location: Right upper extremity SpO2: 98% Oxygen Therapy: Room air MIR CABRAL RN - 03/16/2010 5:19 PRODUCT SUPPORT MANAGER Blanco Coma Eye Opening Response Blanco: Spontaneously Best Verbal Response [place]: Oriented Best Motor Response [place]: Obeys simple commands Blanco Coma Score: 15 MIR CABRAL RN - 03/16/2010 5:19 PRODUCT SUPPORT MANAGER Allergy Allergies (Active) NKA Estimated Onset Date: Unspecified ; Created By: ISA CASIANO MD; Reaction Status: Active ; Category: Drug ; Substance: NKA ; Type: Allergy ; Updated By: ISA CASIANO MD; Reviewed Date: 03/16/2010 4:16 PRODUCT SUPPORT MANAGER Respiratory Airway: Patent Respirations: Unlabored Respiratory Pattern: Regular MIR CABRAL RN - 03/16/2010 5:19 PRODUCT SUPPORT MANAGER Cardiovascular Heart Rhythm: Regular Skin Color: Normal for ethnicity Skin Description: Dry Skin Temperature: Warm MIR CABRAL RN - 03/16/2010 5:19 PRODUCT SUPPORT MANAGER Neurological Level of Consciousness: Alert Orientation: Oriented x 3 Characteristics of Speech: Clear MIR CABRAL RN - 03/16/2010 5:19 PRODUCT SUPPORT MANAGER ED Psychosocial Affect/Behavior: Calm, Cooperative, Appropriate Domestic Concerns: None MIR CABRAL RN - 03/16/2010 5:19 PRODUCT SUPPORT MANAGER Gastrointestinal Nutrition ED: Adequate MIR CABRAL RN - 03/16/2010 5:19 PRODUCT SUPPORT MANAGER Musculoskeletal Fall Prevention Education Provided: Yes MIR CABRAL RN - 03/16/2010 5:19 PRODUCT SUPPORT MANAGER Source: [employer] Document Id: [id number] PRODUCT SUPPORT MANAGER!45 documented in this encounter ED Notes Conversion, Historical Provider Ser - 03/16/2010 6:22 AM CST ED Disposition Summary ED Disposition Summary Entered On: 03/16/2010 6:32 PRODUCT SUPPORT MANAGER Performed On: 03/16/2010 6:22 PRODUCT SUPPORT MANAGER by MIR CABRAL RN ED Disposition Summary Accompanied By: Significant other Mode of Discharge: Ambulatory Transportation: Private vehicle Patient Status at Discharge from ED: Improved Comment: Pt received ibuprofen while in ED. Pt received amoxicillin for home, prescription sent to [facility]. Verbal/written discharge instructions given to Pt. Pt verbalizes understanding. MIR CABRAL RN - 03/16/2010 6:30 PRODUCT SUPPORT MANAGER Source: [employer] Document Id: [id number] PRODUCT SUPPORT MANAGER!7 Conversion, Historical Provider Ser - 03/16/2010 4:23 AM CST ED Triage Assessment ED Triage Assessment Entered On: 03/16/2010 4:27 PRODUCT SUPPORT MANAGER Performed On: 03/16/2010 4:23 PRODUCT SUPPORT MANAGER by MIR CABRAL RN Reason For Visit Diagnoses(Active) Dizziness Date: 03/16/2010 4:24 PRODUCT SUPPORT MANAGER ; Diagnosis Type: Reason For Visit ; Confirmation: Complaint of ; Classification: Medical ; Clinical Service: Non- Specified ; Code: PNED ; Probability: 0 ; DiagnosisCode: [id number] Nauseated Date: 03/16/2010 4:24 PRODUCT SUPPORT MANAGER ; Diagnosis Type: Reason For Visit ; Confirmation: Complaint of ; Classification: Medical ; Clinical Service: Non- Specified ; Code: PNED ; Probability: 0 ; DiagnosisCode: [id number] Triage Chief Complaint Description: Pt has had nausea, sob, dizziness for about 4 hours. Does not take any medicine. Information Given By: Patient Accompanied By: Spouse Mode of Arrival ED: Private vehicle Track: Medical Languages: [place] Pain Symptoms: No Vital Signs Assessed: Yes MIR CABRAL RN - 03/16/2010 4:23 PRODUCT SUPPORT MANAGER Vital Signs Temperature Oral: 37.1C(Converted to: 98.8DegF) Peripheral Pulse Rate: 81/min Respiratory Rate: 20/min Systolic Blood Pressure: 146mmHg (HI) Diastolic Blood Pressure: 97mmHg (>HHI) NIBP Mean: 113mmHg BP Location: Right upper extremity SpO2: 97% Oxygen Therapy: Room air Height: 170.00cm(Converted to: 5ft 7in) Estimated Weight: 104.00kg(Converted to: 229lb 4oz) MIR CABRAL RN - 03/16/2010 4:23 PRODUCT SUPPORT MANAGER Allergy Latex Screening: No MIR CABRAL RN - 03/16/2010 4:23 PRODUCT SUPPORT MANAGER Allergies (Active) NKA Estimated Onset Date: Unspecified ; Created By: ISA CASIANO MD; Reaction Status: Active ; Category: Drug ; Substance: NKA ; Type: Allergy ; Updated By: ISA CASIANO MD; Reviewed Date: 03/16/2010 4:16 PRODUCT SUPPORT MANAGER Immunizations Immunizations Current: Yes Last Tetanus: < 5 years Pneumovac: None Influenza: Last year MIR CABRAL RN - 03/16/2010 4:23 PRODUCT SUPPORT MANAGER Source: [facility] POWERCHART Document Id: [id number] PRODUCT SUPPORT MANAGER!29 Isa Casiano M.D. - 03/16/2010 3:42 AM CST [id number] PRIMARY CARE PROVIDER PCP, UNASSIGNED HISTORY OF PRESENT ILLNESS Silvia is a 24-year-old female who presents to the emergency room with her fianc?? complaining of a headache on the left upper side of her head that started about four to five hours prior to presentation. She also was feeling lightheaded, dizzy, nauseous, and has had some diarrhea. She also has some discomfort in her left upper chest and feels short of breath. All of these symptoms started four to five hours prior to presentation. She was feeling fine all week and even all day the day of 03/15/2010. She has never had anything like this before. She does have a history of headaches but says they have been more like a migraine headache though she has never seen anybody for them before. Silvia also complains of some blurry vision that started about the same time as the headache. This is unusual for her. She not only has had what she calls a migraine headache but also a sinus headache and says that this headache is different from both of those things. She has not had any ill contacts. She deniesany cough. Her last menstrual period is at this time. Appetite has been okay until now. ALLERGIES No known drug allergies. MEDICATIONS List is reviewed and reconciled in the EMR. SOCIAL HISTORY Silvia is a 24-year-old female who lives with her fianc?? and four children, ages 9 months, 2 years, 3 years, and 5 years. FAMILY HISTORY No family history of migraine headaches. PAST MEDICAL HISTORY Silvia has had nine ear surgeries in the past and has a history of recurrent otitis media. REVIEW OF SYSTEMS What she does add is that she has a smelly, disgusting discharge from her right ear canal at times. She was on amoxicillin for an infection approximately August of 2009 and the ear did not improve during that time. PHYSICAL EXAM GENERAL The patient is a well appearing 24-year-old female in no acute distress. VITAL SIGNS Blood pressure 137/90, pulse 86, respirations 20, oxygen saturation 100% on room air, temperature 37.1 degrees Celsius. SKIN Warm, pink and dry; without rashes. HEENT Conjunctivae and sclerae are clear. Retinae are within normal limits bilaterally. Nasal mucosa is normal. Oral mucosa is pink and moist without erythema or exudates in the posterior pharynx. Neck is supple without lymphadenopathy. Tympanic membrane on the left shows a significant amount of tympanosclerosis. There is no erythema. There is question of fluid behind the eardrum. On the right, the ear canal is slightly erythematous with a watery, yellow discharge against the drum in the canal. Drum is somewhat thick. CHEST Heart has a regular rate and rhythm without rubs, gallops or murmurs. Lungs show slightly coarse anddecreased breath sounds at the right base. ABDOMEN Bowel sounds are normal. The abdomen is soft, nontender, nondistended, and no masses or hepatosplenomegaly are palpated. NEUROLOGICAL Cranial nerves II through XII are grossly intact. Strength is 5/5 bilaterally. Gait is within normallimits. LAB White blood count is 7200 with 62 segs, 25 lymphocytes, 8 monocytes. Hemoglobin 11.6, hematocrit 35.8% and platelets 231,000. Sodium 138, potassium 4.1, chloride 101, bicarb 28, BUN 14, creatinine 0.8, glucose 99, alkaline phosphatase 95, AST 16, ALT 33. Total bilirubin 0.3, protein 8.3, albumin 4.3. Chest x-ray has a retrocardiac infiltrate on the lateral x-ray. CT of the head shows opacified paranasal sinuses. There is chronic mastoid disease. ASSESSMENT 1. Pneumonia. 2. Sinusitis. PLAN 1. Amoxicillin 1000 mg by mouth twice a day for 10 days with one refill, if needed. 2. Recommended saline nasal rinses and Tylenol or Motrin as needed for pain and also warm compressesto the face as needed. 3. Push fluids. 4. Rest. 5. Follow up if not improving in 4 to 5 days or sooner if symptoms should worsen. 6. She may try to use the Swim-Ear ear drops for her right ear and if not improving, she should follow up either with the primary care provider or ENT to have this looked at. Isa Casiano MD//daisy #[id number] cc: Electronically Signed By:ISA CASIANO MD On 03/28/2010 10:18 AM Source: [facility] Document Id: [id number] UCT SUPPORT MANAGER documented in this encounter Miscellaneous Notes Miscellaneous - Conversion, Historical Provider Ser - 03/16/2010 6:22 AM PRODUCT SUPPORT MANAGER Valuables/Belongings Valuables/Belongings Entered On: 03/16/2010 6:32 PRODUCT SUPPORT MANAGER Performed On: 03/16/2010 6:22 PRODUCT SUPPORT MANAGER by MIR CABRAL RN Valuables/Belongings Home Medication Disposition: None brought in with patient MIR CABRAL RN - 03/16/2010 6:32 PRODUCT SUPPORT MANAGER [facility] Document Id: [id number] PRODUCT SUPPORT MANAGER!3 Miscellaneous - Conversion, Historical Provider Ser - 03/16/2010 4:30 AM PRODUCT SUPPORT MANAGER Facility Charge Ticket Facility Charge Ticket Entered On: 03/19/2010 16:23 PRODUCT SUPPORT MANAGER Performed On: 03/16/2010 4:30 PRODUCT SUPPORT MANAGER by GROVER KANG Facility Charge TVL Level for Facility Charge Ticket: Level 4 Mode of Arrival ED: Private vehicle [facility] Mode of Arrival Interpreted: Standard [facility] Process Management: None [facility] Order Management: CT/MRI/Ultrasound, Xray - plain films, Lab tests 30 Minutes Critical Care: No [facility] Nursing Assessment: Triage and 1-2 nursing assessments [facility] Disposition: Discharge [facility] Total Points with Diagnosis Control: 11 [facility] Visit Level: 61227 Level 4 GROVER KANG - 03/19/2010 16:23 PRODUCT SUPPORT MANAGER Source: [employer] Document Id: [id number] PRODUCT SUPPORT MANAGER!12 documented in this encounter Plan of Treatment Not on filedocumented as of this encounter Procedures Procedure Name Priority Date/Time Associated Diagnosis Comme nts CT HEAD WITHOUT IV Routine 03/16/2010 4:52 AM Res ults for this CONTRAST PRODUCT SUPPORT MANAGER procedure are i n the results section. DX CHEST AP OR PA Routine 03/16/2010 4:17 AM Resu lts for this AND LATERAL 2 VIEWS PRODUCT SUPPORT MANAGER procedur e are in the results section. documented in this encounter Results CT Head without IV Contrast (03/16/2010 4:52 AM PRODUCT SUPPORT MANAGER) Anatomical Region Laterality Modality Head N/A Computed Tomography Specimen (Source) Anatomical Collection Method Collection Time Re ceived Time Location / / Volume Laterality 03/16/2010 4:52 AM PRODUCT SUPPORT MANAGER Impressions 03/16/2010 5:01 AM PRODUCT SUPPORT MANAGER Findings as above. ?? Results in accordance with those origina lly described by Dr. Arias ?? Maria Esther from [facility]. ?? Transcribed by: ??ONA870 on Mar 16 2010 ??8:30A ?? Read by: ? VANNESSA BOLIVAR ??on Mar 16 2010 ??8:30A ?? Signed by: VANNESSA BOLIVAR on Mar 1719 02 10:02A ? Narrative 03/16/2010 5:01 AM PRODUCT SUPPORT MANAGER INDICATION: HEADACHE-LEFT PARIETAL. ACCESSION No: ? [id number] DATE OF EXAM: Mar 16 2010 ??05:01 EXAM CODE and DESCRIPTION: F3C ?? 9907 - ?? CT HEAD W/O CONTRAST RESULT: CT Scan of the Head without IV C ontrast Material: Ventricles ?? are midline. No mass-effect or hemorrhag e. No acute finding. ?? Partial opacification of the mastoid air cells on the right which ?? may be due to some chronic disease. ?? Procedure Note Vannessa Bolivar Jr., M.D. / Provider , Lupe Villanueva - 09/25/2016 INDICATION: HEADACHE-LEFT PARIETAL. ACCESSION No: [id number] DATE OF EXAM: Mar 16 2010 05:01 EXAM CODE and DESCRIPTION: F3C 9907 - CT HEAD W/O CONTRAST RESULT: CT Scan of the Head without IV C ontrast Material: Ventricles are midline. No mass-effect or hemorrhag e. No acute finding. Partial opacification of the mastoid air cells on the right which may be due to some chronic disease. IMPRESSION: Findings as above. Results in accordance with those ed kearney described by Dr. Juana Mayo from [facility]. Transcribed by: GUSTAVO on Mar 16 2010 8: 30A Read by: VANNESSA BOLIVAR on Mar 16 2010 8:30A Signed by: VANNESSA BOLIVAR on Mar 1719 02 10:02A Vannessa Bolivar Jr., M.D. IMG CT PROCEDURES DX Chest AP or PA and Lateral 2 Views (03/16/2010 4:17 AM PRODUCT SUPPORT MANAGER) Anatomical Region Laterality Modality Chest N/A Radiographic Imaging Specimen (Source) Anatomical Collection Method Collection Time Re ceived Time Location / / Volume Laterality 03/16/2010 4:17 AM PRODUCT SUPPORT MANAGER Impressions 03/16/2010 4:21 AM PRODUCT SUPPORT MANAGER ??The heart size is normal in the lungs are clear and ?? expanded. Transcribed by: ??GUSTAVO on Mar 16 2010 ??8:52A ?? Read by: ? VANNESSA BOLIVAR ??on Mar 16 2010 ??8:52A ?? Signed by: VANNESSA BOLIVAR on Mar 1619 02 ??8:52A ? Narrative 03/16/2010 4:21 AM PRODUCT SUPPORT MANAGER INDICATION: SHORTNESS OF BREATH; ACCESSION No: ? [id number] DATE OF EXAM: Mar 16 2010 ??04:21 EXAM CODE and DESCRIPTION: F3D ?? 1002 - ?? XR CHEST PA AND LAT RESULT: Chest with lateral ?? Procedure Note Vannessa Bolivar Jr., M.D. / Provider Kay M.D. - 09/25/2016 INDICATION: SHORTNESS OF BREATH; ACCESSION No: [id number] DATE OF EXAM: Mar 16 2010 04:21 EXAM CODE and DESCRIPTION: F3D 1002 - XR CHEST PA AND LAT RESULT: Chest with lateral IMPRESSION: The heart size is normal in the lungs are clear and expanded. Transcribed by: GUSTAVO on Mar 16 2010 8: 52A Read by: VANNESSA BOLIVAR on Mar 16 2010 8:52A Signed by: VANNESSA BOLIVAR on Mar 1619 02 8:52A Vannessa Bolivar Jr., M.D. IMG DIAGNOSTIC IMAGING [facility] OCEDURES documented in this encounter Visit Diagnoses Not on filedocumented in this encounter
--- OUTSIDE RECORDS SUMMARY | 2022-02-03 23:58 | XMS_ITS | Encounter Summary ---
:1985 Author Organization [facility] Address [address] [place] [address] Care Team Providers Name Role Phone Unavailable Primary Care Provider Unavailable Encounter Details Date Type Department Care Team Description 03/05/2015 Hospital Encounter HX [facility] ED Mimi Vicente D.O. [address] [place] [phone] (Wo rk) Social History Tobacco Use Types Packs/Day Years Used Date Smoking Tobacco: Never Assessed Sex Assigned at Date Recorded Not on file documented as of this encounter Last Filed Vital Signs Vital Sign Reading Time Taken Comments Blood Pressure 123/81 03/05/2015 11:24 AM HAT LINER Pulse 78 03/05/2015 10:23 AM HAT LINER Temperature - - Respiratory Rate 17 03/05/2015 11:24 AM HAT LINER Oxygen Saturation - - Inhaled Oxygen Concentration - - Weight - - Height - - Body Mass Index - - documented in this encounter Discharge Summaries Nola Williamson R.N. - 03/05/2015 12:50 PM CST ED Discharge Instructions [facility] [address] [facility] [place] [address] Name: SILVIA MAY Date of : 1985 12:00 AM Visit Date: 03/05/2015 9:07 AM [facility] Number: [id number] Address: [address] [place] [id number] Primary Care Provider: SOFIE VÁZQUEZ MD IMPORTANT: [facility] [place] would like to thank you for allowing us to assist youwith your healthcare needs. The following includes patient education materials and information regarding your injury/illness. Diagnosis: Follow-Up Instructions: With: Address: When: SOFIE VÁZQUEZ [address] [place] [address] [phone] Business (1) Within 3 - 5 days Your Upcoming Appointments: Date Time Location Provider No Appointments found Patient Education Materials: Bladder Infection, Female (Adult) A bladder infection [...] in the labia (outer vaginal area) ?? [phone] Lennie Swain, [address] [place] [address], [place] [address]. All rights reserved. This information is not intended as a substitute for professional medical care. Always follow your healthcare professional's instructions. Pneumonia (Adult) Pneumonia is an infection deep within the lung, in the small air sacs (alveoli). It may be due to a virus or bacteria and is usually treated with an antibiotic. Severe cases require treatment in the hospital. Milder cases can be treated at home. Symptoms usually start to improve during the first 2 days of treatment. Home Care: ?? Rest at home for the first 2--3 days or until you feel stronger. When resuming activity, dont letyourself become overly tired. ?? Avoid exposure to cigarette smoke (yours or others). ?? You may use acetaminophen (Tylenol) or ibuprofen (Motrin, Advil) to control fever or pain, unlessanother medicine was prescribed. [NOTE: If you have chronic liver or kidney disease or ever had a stomach ulcer or GI bleeding, talk with your doctor before using these medicines.] (Aspirin should never be used in anyone under 18 years of age who is ill with a fever. It may cause severe liver damage.) ?? Your appetite may be poor so a light diet is fine. ?? Keep well hydrated by drinking 6--8 glasses of fluids per day (water, sport drinks such as Gatorade, sodas without caffeine, juices, tea, soup, etc.). This will help loosen secretions in the lung, making it easier for you to cough up the phlegm (sputum). If you also have heart or kidney disease, check with your doctor before you drink extra amounts of fluids. ?? Finish all antibiotic medicine prescribed, even if you are feeling better after a few days. Follow Up with your doctor in the next 2--3 days (or as advised) to be sure you are responding properly to themedicine. [NOTE: If you are age 65 or older, or if you have chronic lung disease (asthma, emphysema or COPD), we recommend the pneumococcal vaccination and a yearly influenza vaccination (flu-shot) every .Ask your doctor about this.] Get Prompt Medical Attention if any of the following occur: ?? Not getting better within the first 48 hours of treatment ?? Increasing shortness of breath or rapid breathing (over 25 breaths/minute) ?? Coughing up blood or increasing chest pain with breathing ?? Fever of 100.4?F (38?C) oral or higher, not better with fever medication ?? Increasing weakness, dizziness or fainting ?? Increasing thirst or dry mouth ?? Sinus pain, headache or a stiff neck ?? Chest pain not caused by coughing ?? [phone] Lennie [facility], [address] [place] [address]. All rights reserved. This information is not [...] if you dont have one. Go to [email or web address] and click on Create Your Account. Then, follow the directions to complete the online form. Youll be asked for your [facility] number which you can find at the top of this document. ED Tests and Procedures: Order Status CBC (includes Auto Differential) Completed Comprehensive Metabolic Panel Completed Urinalysis with Culture if Indicated Completed Lactic Acid Completed Lipase Level Completed CT Stone Protocol Completed UR % Dysmorphic RBC Completed Automated Diff-5 Part Completed Culture Urine Ordered Discharge Prescriptions & Home Medications: Medication/Strength Dose Route Frequency Indications/Special Instructions/Comments/Notes ketorolac (Toradol 10 mg oral tablet) 10 [...] with a responsible green party. I, SILVIA MAY , or responsible green party have received this information and my questions have been answered. I have discussed any challenges I see with this plan with the nurse or physician. Patient Signature or Responsible Democrat/Relationship Date Time Provider Signature Date Time This document has images extracted. Please consider using [employer] for all your patient education needs. Source: [facility] [employer] Document Id: [id number] LINER Nola Williamson R.N. - 03/05/2015 12:50 PM CST ED Depart Summary [facility] Emergency Department / Urgent Care Clinical Discharge Summary PERSON INFORMATION Name SILVIA MAY Age 29 Years 1985 12:00 AM Sex Female Language Ugandan PCP SOFIE VÁZQUEZ MD Marital Status Single Visit Id Visit Reason Abdominal pain; PAIN ON RIGHT SIDE OF BODY Specialty Enc Type Emergency Med Service Emergency Medicine Referred by Track Group [facility] ED/UC Discharge 03/05/2015 12:50 PM Tracking Id [id number] Checkout 03/05/2015 12:50 PM Checkin 03/05/2015 9:07 AM Acuity 3 -Urgent Dispo Type * Discharged to Home or Self Care Arrival 03/05/2015 9:07 AM Reg Status Complete LOS 000 03:43 Address: [address] [place], [place] [address] Comment: PROVIDER INFORMATION Provider Role Provider Contact Time TRI SMART RN ED Nurse 03/05/15 09:24 DONNIE MEDRANO ED Garage Manager 03/05/15 09:24 MIMI VICENTE DO ED Provider 03/05/15 10:17 NOLA WILLIAMSON RN ED Nurse 03/05/15 11:33 DIAGNOSIS Comment: PATIENT EDUCATION INFORMATION Instructions: BLADDER INFECTION, Female (Adult); PNEUMONIA (Adult) Follow up: With: Address: When: SOFIE VÁZQUEZ [address] [place] [address] [phone] Business (1) Within 3 - 5 days Source: [facility] [employer] Document Id: [id number] LINER documented in this encounter ED Notes Nola Williamson R.N. - 03/05/2015 12:50 PM CST ED Pain Assessment ED Pain Assessment Entered On: 03/05/2015 12:50 HAT LINER Performed On: 03/05/2015 12:50 HAT LINER by NOLA WILLIAMSON RN Pain Assessment Pain Symptoms : Yes NOLA WILLIAMSON RN - 03/05/2015 12:50 HAT LINER Pain Scale Pain Scale Verbal 0-10 : Open NOLA WILLIAMSON RN - 03/05/2015 12:50 HAT LINER Pain Pain Assessment Grid Pain 1 Location : Abdomen Intensity : 3 NOLA WILLIAMSON RN - 03/05/2015 12:50 HAT LINER Source: [facility] [employer] Document Id: [id number] HAT LINER!10 LINER Nola Williamson R.N. - 03/05/2015 12:49 PM CST ED Disposition Summary ED Disposition Summary Entered On: 03/05/2015 12:49 HAT LINER Performed On: 03/05/2015 12:49 HAT LINER by NOLA WILLIAMSON RN ED Disposition Summary Accompanied By : Mother Mode of Discharge : Ambulatory Transportation : Private vehicle Printed Discharge Instructions Given to Patient : Yes Patient Status at Discharge from ED : Improved NOLA WILLIAMSON RN - 03/05/2015 12:49 HAT LINER Source: [employer] Document Id: [id number] HAT LINER!7 LINER Nola Williamson R.N. - 03/05/2015 11:57 AM CST ED Nurse Reassess ED Nurse Reassess Entered On: 03/05/2015 12:02 HAT LINER Performed On: 03/05/2015 11:57 HAT LINER by NOLA WILLIAMSON RN Pain Assessment Pain Symptoms : Yes NOLA WILLIAMSON RN - 03/05/2015 12:02 HAT LINER Pain Scale Pain Scale Verbal 0-10 : Open NOLA WILLIAMSON RN - 03/05/2015 12:02 HAT LINER Pain Pain Assessment Grid Pain 1 Location : Abdomen Intensity : 5 NOLA WILLIAMSON RN - 03/05/2015 12:02 HAT LINER GI Reassess GI Patient Stated Symptoms : Abdominal pain GI Note : Pt states she continues to have pain following medication. NOLA WILLIAMSON RN - 03/05/2015 12:02 HAT LINER Source: [employer] Document Id: [id number] HAT LINER!13 LINER Mimi Vicente D.O. - 03/05/2015 10:28 AM CST Abdominal pain Patient: SILVIA MAY Age: 29 years Sex: Female : 1985 Author: MIMI VICENTE DO Attachments: None Basic Information History source: Patient. Arrival mode: Private vehicle. History limitation: None. Additional information: Chief Complaint from Nursing Triage Note : Chief Complaint Description 03/05/2015 9:27 HAT LINER Chief Complaint Description pt woke up with rt upper abd pain today. Had her gallbladder removed 5 yrs ago. denies had my tubes tied. NO NAUSEA/VOMITING 03/05/2015 9:12 HAT LINER Chief Complaint Description WOKE UP WITH RT UPPER ABD PAIN TODAY. HAD HER GALLBLADDER REMOVED 5 YRS AGO . DENIES ANY INJURY. NO NAUSEA/VOMITING . History of Present Illness The patient presents with abdominal pain. The onset was 1 days ago. The course/duration of symptoms is constant. The character of symptoms is achy. The Location of pain at onset was right, upper and abdominal. The degree at present is moderate. The Location of pain at present is right, upper and abdominal. Therapy today: none. Associated symptoms: none. Review of Systems Constitutional symptoms: No fever. Skin symptoms: No rash. Eye symptoms: Vision unchanged. ENMT symptoms: No sore throat. Respiratory symptoms: No shortness of breath. Cardiovascular symptoms: No chest pain. Gastrointestinal symptoms: Abdominal pain, but no nausea, no vomiting, no diarrhea or no constipation. Genitourinary symptoms: No dysuria, no hematuria, no vaginal bleeding or no vaginal discharge. Musculoskeletal symptoms: Back pain. Neurologic symptoms: No headache or no dizziness. Health Status Allergies: Allergic Reactions (Selected) NKA. Past Medical/ Family/ Social History Surgical history: Other Manually Assisted Delivery (73.59) [...] PowerChart. Cytopathology, slides, cervical or vaginal (the [facility] System); manual screening under physician supervision.. ([id number]) in the week of 03/10/2004 at 18 Years. Comments: 04/18/2010 21:45 - CARMEN MORALES Hx: [id number] - LAB-CYTOPATH, SM,D/V,TDS<3SM TECH 03/21/2013 17:41 - Contributor source changed to PowerChart.. Family history: No family history items have been selected or recorded.. Medical history. Physical Examination Vital Signs: Vital Signs 03/05/2015 10:23 HAT LINER Peripheral Pulse Rate 78 /min Respiratory Rate 18 /min SpO2 97 % Systolic Blood Pressure 120 mmHg Diastolic Blood Pressure 73 mmHg Mean Arterial Pressure 89 mmHg 03/05/2015 9:33 HAT LINER Temperature Core 37.0 DegC Peripheral Pulse Rate 82 /min Respiratory Rate 19 /min SpO2 97 % Systolic Blood Pressure 117 mmHg Diastolic Blood Pressure 76 mmHg BP Location Left upper , SpO2 03/05/2015 10:23 HAT LINER SpO2 97 % 03/05/2015 9:33 HAT LINER SpO2 97 % . General: Alert and no acute distress. Skin: Warm and dry. Head: Normocephalic and atraumatic. Eye: Normal conjunctiva. Ears, nose, mouth and throat: Oral mucosa moist. Cardiovascular: Regular rate and rhythm. Respiratory: Lungs are clear to auscultation. Gastrointestinal: Soft, Nontender and Non distended. Back: Nontender. Neurological: Alert and oriented to person, place, time, and situation and No focal neurological deficit observed. Psychiatric: Cooperative. Medical Decision Making Differential Diagnosis:Abdominal pain, renal stone, hepatitis, pancreatitis, pyelonephritis, ischemic bowel. environmental monitoring specialist:Normal sinus rhythm. Results review:Lab results : Lab View 03/05/2015 9:40 HAT LINER Hgb 13.3 g/dL Hct 40.4 % WBC 6.1 x10(9)/L RBC 4.38 x10(12)/L MCV 92.2 fL RDW 12.3 % Platelet 213 x10(9)/L Neutro Absolute 3.06 10(9)/L Lymph Absolute 2.23 x10(9)/L [place] Absolute 0.38 x10(9)/L Eos Absolute 0.36 x10(9)/L Baso Absolute 0.03 x10(9)/L Sodium Lvl 139 mmol/L Potassium Lvl 4.2 mmol/L Chloride 103 mmol/L CO2 25 mmol/L AGAP 11 mmol/L Alkaline Phosphatase 52 U/L Glucose Lvl 98 mg/dL Creatinine 0.66 mg/dL EGFR (MDRD) >60 mL/min/1.73m2 EGFR (MDRD) >60 mL/min/1.73m2 BUN 15 mg/dL Calcium Lvl 9.4 mg/dL Protein Total 7.5 g/dL Albumin Lvl 4.4 g/dL AST 17 U/L ALT 16 U/L Bili Total 0.2 mg/dL Lipase Lvl 27 U/L Lactic Acid Lvl 1.0 mmol/L 03/05/2015 9:26 HAT LINER UA Color Yellow UA Clarity Slightly Cloudy UA Spec Grav 1.021 NA UA pH 5.0 UA Protein Trace mg/dL UA Glucose Negative mg/dL UA Ketones Negative mg/dL UA Bili Negative UA Urobilinogen <2.0 mg/dL UA Blood Large UA Nitrite Negative UA Leuk Est Small UR WBC 11-20 /HPF UR RBC 41-50 /HPF UR % Dysmorphic RBC <=25 % UR Squamous Epi Cells 4-10 /HPF UR Mucous Present . Radiology results: * Final Report * Reason For Exam right flank pain Report EXAM: CT Stone Protocol INDICATION: right flank pain COMPARISON: None. IMPRESSION: Small vague Ill-defined consolidative process in the right lower lung with linear pleural extension likely represents pneumonia/atelectasis. Short-term CT follow-up in approximately 2-3 months is recommended to document resolution. FINDINGS: Vague focus of consolidation with linear pleural extension in the right lower lung with associated bronchial thickening likely represents pneumonia / subsegmental atelectatic changes. No evidence of intrarenal calcification. Bilateral kidneys demonstrate normal attenuation with no focal masses seen. No evidence of hydronephrosis, perinephric fluid collection or renal mass. Bilateral ureters demonstrate normal caliber without evidence of intraureteral The visualized base of the heart appear unremarkable. Small hiatal hernia. Mildly prominent nonspecific mesenteric lymph nodes in the right lower abdomen. The largest lymph node is located anterior to the right psoas musculature measuring 12 x 8 mm in diameter (image 113, series 2). Possibility of mesenteric adenitis should be considered. Tiny fat containing periumbilical hernia. Normal-appearing appendix (coronal images 54 through 68). Post cholecystectomy clips. The liver is enlarged in craniocaudal diameter measuring 20 cm. No additional hepatic abnormality. The spleen, pancreas and bilateral adrenal glands demonstrate no definite abnormality. Low volume status bladder demonstrates no definite abnormality. No visualized ascites. No visualized free air. Normal caliber bowel loops throughout the abdomen and pelvis. . Impression and Plan Diagnosis pneumonia, UTI Plan Condition: Stable. Disposition: Discharged: to home. Prescriptions: Prescription [facility]: Toradol 10 mg oral tablet (Prescribe): 10 mg, 1 tab(s), PO, 4xDay, Take with food., 20 tab(s), 0 Refill(s) Levaquin 750 mg oral tablet (Prescribe): 750 mg, 1 tab(s), PO, Daily, for 5 day(s), 5 tab(s), 0 Refill(s). Patient was given the following educational materials: PNEUMONIA (Adult), BLADDER INFECTION, Female (Adult). Follow up with: SOFIE VÁZQUEZ Within 3 - 5 days. Counseled: Patient, Family, Regarding diagnosis, Regarding diagnostic results, Regarding treatment plan, Regarding prescription, Patient indicated understanding of instructions. Orders: Launch Orders Patient Care: Discharge ED Patient (Order Processing): 03/05/2015 12:20 HAT LINER, Once. Electronically Signed By: MIMI VICENTE DO On: 03/07/2015 02:25 AM Modified by and Electronically Signed by: MIMI VICENTE DO On: 03/05/2015 12:21 PM [facility] Document Id: [id number]} LINER Tri Smart, R.N. - 03/05/2015 9:27 AM CST ED Primary Assessment Document Has Been Updated ED Primary Assessment Entered On: 03/05/2015 9:30 HAT LINER Performed On: 03/05/2015 9:27 HAT LINER by TRI SMART RN Reason For Visit (As Of: 03/05/2015 09:30:43 HAT LINER) Problems(Active) No Chronic Problems (Cerner :NKP ) Name of Problem: No Chronic Problems ; Recorder: NATY XIE MD; Confirmation: Confirmed ; Classification: Medical ; Code: NKP ; Last Updated: 05/15/2013 16:30 HAT LINER; Life Cycle Date: 05/15/2013 ; Life Cycle Status: Active ; Vocabulary: Cerner Diagnoses(Active) Abdominal pain Date: 03/05/2015 ; Diagnosis Type: Reason For Visit ; Confirmation: Complaint of ; Clinical Dx: Abdominal pain ; Classification: Medical ; Clinical Service: Emergency medicine ; Code: PNED ; Probability: 0 ; Diagnosis Code: [id number] Triage Chief Complaint Description : pt woke up with rt upper abd pain today. Had her gallbladder removed 5yrs ago. denies had my tubes tied. NO NAUSEA/VOMITING Information Given By : Patient Accompanied By : Mother Mode of Arrival ED : Private vehicle Track : Medical Languages : Ugandan Patient Informed of Triage Location : Emergency department Treatments Prior to Arrival : None Are you ? : No Is Patient Female and 13-50 no hysterectomy : Yes Status : Patient denies DEON TRI Saundra GROVES - 03/05/2015 9:27 HAT LINER Pain Assessment Pain Symptoms : Yes TRI SMART RN - 03/05/2015 9:27 HAT LINER Comfort Measures Comfort Measures Grid Yellow Pine Application : Yes Positioning : Yes TRI SMART RN - 03/05/2015 9:27 HAT LINER DENNY DCP GENERIC CODE Tracking Acuity : 3 -Urgent Tracking Group : [facility] ED/ AMARILIS SMARTEEN Saundra GROVES - 03/05/2015 9:27 HAT LINER Allergy (As Of: 03/05/2015 09:30:43 HAT LINER) Allergies (Active) NKA Estimated Onset Date: Unspecified ; Created By: KATIE BRUNNER MD; Reaction Status: Active ; Category: Drug ; Substance: NKA ; Type: Allergy ; Updated By: KATIE BRUNNER MD; Reviewed Date: 03/03/2015 13:23 HAT LINER Respiratory Airway : Patent Respirations : Unlabored Respiratory Pattern : Regular Oxygen Therapy : Room air Respiratory Detailed Assessment : Yes TRI SMART RN - 03/05/2015 9:27 HAT LINER Resp Detailed Respiratory Patient Stated Symptoms : None Distress : None Cough : None TRI SMART RN - 03/05/2015 9:27 HAT LINER Cardiovascular Heart Rhythm : Regular Skin Color : Normal for ethnicity Skin Description : Dry Skin Temperature : Warm Cardiovascular Detailed Assessment : Yes TRI SMART RN - 03/05/2015 9:27 HAT LINER CV Detailed CV Patient Stated Symptoms : None TRI SMART RN - 03/05/2015 9:27 HAT LINER Neurological Last Well Time Known : Not applicable Level of Consciousness : Alert Orientation : Oriented x 3 Characteristics of Speech : Appropriate for age Neuro Patient Stated Symptoms : None TRI SMART RN - 03/05/2015 9:27 HAT LINER ED Psychosocial Affect/Behavior : Calm, Cooperative, Appropriate Domestic Abuse Concerns : None Behavioral Health Screen/Safety Assmt : No TRI SMART RN - 03/05/2015 9:27 HAT LINER Gastrointestinal Nutrition ED : Adequate GI Detailed Assessment : Yes TRI SMART RN - 03/05/2015 9:27 HAT LINER GI Detailed GI Patient Stated Symptoms : Abdominal pain GI Note : RT UPPER ABD PAIN TODAY TRI SMART RN - 03/05/2015 9:27 HAT LINER Musculoskeletal Fall Prevention Education Provided : Yes TRI SMART RN - 03/05/2015 9:27 HAT LINER Social Habits Tobacco Use/Currently Using : Yes Exposure to Tobacco Smoke : Patient smokes, Other: occ alcohol Smoking Status : Current every day smoker TRI SMART RN - 03/05/2015 9:27 HAT LINER Tobacco Use Grid Cigarette Use Packs/Day : 0.5 TRI SMART RN - 03/05/2015 9:27 HAT LINER [facility] Document Id: [id number] HAT LINER!66 LINER Tri Smart R.N. - 03/05/2015 9:12 AM CST ED Triage Assessment Document Has Been Updated ED Triage Assessment Entered On: 03/05/2015 9:17 HAT LINER Performed On: 03/05/2015 9:12 HAT LINER by TRI SMART RN Reason For Visit (As Of: 03/05/2015 09:17:31 HAT LINER) Problems(Active) No Chronic Problems (Cerner :NKP ) Name of Problem: No Chronic Problems ; Recorder: NATY XIE MD; Confirmation: Confirmed ; Classification: Medical ; Code: NKP ; Last Updated: 05/15/2013 16:30 HAT LINER; Life Cycle Date: 05/15/2013 ; Life Cycle Status: Active ; Vocabulary: Cerner Diagnoses(Active) Abdominal pain Date: 03/05/2015 ; Diagnosis Type: Reason For Visit ; Confirmation: Complaint of ; Clinical Dx: Abdominal pain ; Classification: Medical ; Clinical Service: Emergency medicine ; Code: PNED ; Probability: 0 ; Diagnosis Code: [id number] Triage Chief Complaint Description : WOKE UP WITH RT UPPER ABD PAIN TODAY. HAD HER GALLBLADDER REMOVED 5 YRS AGO . DENIES ANY INJURY. NO NAUSEA/VOMITING Information Given By : Patient Accompanied By : Mother Mode of Arrival ED : Private vehicle Track : Medical Languages : Ugandan Patient Informed of Triage Location : Emergency department Treatments Prior to Arrival : None Is Patient Female and 13-50 no hysterectomy : Yes TRI SMART RN - 03/05/2015 9:12 HAT LINER Pain Assessment Pain Symptoms : Yes TRI SMART RN - 03/05/2015 9:12 HAT LINER Pain Scale Pain Scale Verbal 0-10 : Open TRI SMART RN - 03/05/2015 9:12 HAT LINER Pain Pain Assessment Grid Pain 1 Location : Abdomen (Comment: RT UPPER [TRI SMART RN - 03/05/2015 9:12 HAT LINER] ) Laterality : Right Intensity : 9 TRI SMART RN - 03/05/2015 9:12 HAT LINER DENNY DCP GENERIC CODE Tracking Acuity : 3 -Urgent Tracking Group : [facility] ED/UC TRI SMART RN - 03/05/2015 9:12 HAT LINER Source: [facility] [employer] Document Id: [id number] HAT LINER!25 LINER documented in this encounter Miscellaneous Notes Miscellaneous - Nola Williamson R.N. - 03/05/2015 12:50 PM CST Valuables/Belongings Valuables/Belongings Entered On: 03/05/2015 12:50 HAT LINER Performed On: 03/05/2015 12:50 HAT LINER by NOLA WILLIAMSON RN Valuables/Belongings Comment : all belongings sent with pt NOLA WILLIAMSON RN - 03/05/2015 12:50 HAT LINER Source: [facility] [employer] Document Id: [id number] HAT LINER!3 LINER Miscellaneous - Conversion, Historical Provider Ser - 03/05/2015 12:50 PM HAT LINER Coding Summary-Paper Based CODING DATE: 03/21/2015 FINAL [facility] STATUS: * Discharged to Home or Self Care PAYOR: Medicaid ADMIT DX: R10.11 Right upper quadrant pain REASON FOR VISIT DX: R10.11 Right upper quadrant pain FINAL DX: PRINCIPAL: J18.9 Pneumonia, unspecified organism SECONDARY: N39.0 Urinary tract infection, site not specified F17.210 Nicotine dependence, cigarettes, uncomplicated PROCEDURES DOCTOR NAME DATE NOTE: The code number assigned matches the documented diagnosis and / or procedure in the patient's chart. However, the narrative phrase printed from the coding software may appear abbreviated, or result in slightly different terminology. Coded By: CASSANDRA ACEVES Date Saved: 03/21/2015 10:19 am Source: [employer] Document Id: [id number] documented in this encounter Plan of Treatment Not on filedocumented as of this encounter Procedures Procedure Name Priority Date/Time Associated Comments Diagnosis CT ABDOMEN KIDNEY Routine 03/05/2015 11:16 Result s for this STONE WITHOUT IV AM HAT LINER procedure a re in CONTRAST the results section. AUTOMATED Routine 03/05/2015 9:40 AM Results f or this DIFFERENTIAL, B HAT LINER procedure ar e in the results section. CBC WITH DIFFERENTIAL, Routine 03/05/2015 9:40 AM Results for this B HAT LINER procedure are i n the results section. LIPASE, S/P Routine 03/05/2015 9:40 AM Results f or this HAT LINER procedure are i n the results section. LACTATE, B/P Routine 03/05/2015 9:40 AM Results f or this HAT LINER procedure are i n the results section. COMPREHENSIVE Routine 03/05/2015 9:40 AM Results for this METABOLIC PANEL, S/P HAT LINER procedu re are in the results section. HXUR % DYSMORPHIC RBC Routine 03/05/2015 9:26 AM Results for this HAT LINER procedure are i n the results section. URINALYSIS, MIDSTREAM, Routine 03/05/2015 9:26 AM Results for this WITH CULTURE IF HAT LINER procedure ar e in INDICATED the results section. BACTERIAL CULTURE, Routine 03/05/2015 9:26 AM Res ults for this AEROBIC, URINE HAT LINER procedure are in the results section. documented in this encounter Results CT Abdomen Kidney Stone without IV Contrast (03/05/2015 11:16 AM HAT LINER) Anatomical Region Laterality Modality Abdomen, Pelvis Computed Tomography Specimen (Source) Anatomical Collection Method Collection Time Re ceived Time Location / / Volume Laterality 03/05/2015 11:16 AM HAT LINER Impressions 03/05/2015 11:54 AM HAT LINER Small vague Ill-defined consolidative process in the right lower lung with linear pleural ext ension likely represents pneumonia/atelectasis. Short-term CT fol low-up in approximately 2-3 months is recommended to document resolu tion. FINDINGS: Vague focus of consolidation w ith linear pleural extension in the right lower lung with associated bronchial thickening likely represents pneumonia / subsegmental atel ectatic changes. No evidence of intrarenal calcification. Bilateral kidneys demonstrate normal attenuation with no f ocal masses seen. No evidence of hydronephrosis, perinephric fluid col lection or renal mass. Bilateral ureters demonstrate normal merrick iber without evidence of intraureteral The visualized base of the heart appear unremarkable. Small hiatal hernia. Mildly prominent nonspecific mesenteric lymph nodes in the right lower abdomen. The largest lymph node is located anterior to the right psoas musculature measuring 12 x 8 mm in diameter (image 113, series 2). Possibility of mesenteric saida nitis should be considered. Tiny fat containing periumbilical hernia . Normal-appearing appendix (coronal image s 54 through 68). Post cholecystectomy clips. The liver is enlarged in craniocaudal di ameter measuring 20 cm. No additional hepatic abnormality. The spleen, pancreas and bilateral adren al glands demonstrate no definite abnormality. Low volume status bladder demonstrates n o definite abnormality. No visualized ascites. No visualized free a ir. ??Normal caliber bowel loops throughout the abdomen and pelvis. Narrative 03/05/2015 11:54 AM HAT LINER EXAM: CT Stone Protocol INDICATION: right flank pain COMPARISON: None. Procedure Note Geo Hernandez M.D. / Provider, His bisi M.D. - 09/10/2016 EXAM: CT Stone Protocol INDICATION: right flank pain COMPARISON: None. IMPRESSION: Small vague Ill-defined cons olidative process in the right lower lung with linear pleural ext ension likely represents pneumonia/atelectasis. Short-term CT fol low-up in approximately 2-3 months is recommended to document resolu tion. FINDINGS: Vague focus of consolidation w ith linear pleural extension in the right lower lung with associated bronchial thickening likely represents pneumonia / subsegmental atel ectatic changes. No evidence of intrarenal calcification. Bilateral kidneys demonstrate normal attenuation with no f ocal masses seen. No evidence of hydronephrosis, perinephric fluid col lection or renal mass. Bilateral ureters demonstrate normal merrick iber without evidence of intraureteral The visualized base of the heart appear unremarkable. Small hiatal hernia. Mildly prominent nonspecific mesenteric lymph nodes in the right lower abdomen. The largest lymph node is located anterior to the right psoas musculature measuring 12 x 8 mm in diameter (image 113, series 2). Possibility of mesenteric saida nitis should be considered. Tiny fat containing periumbilical hernia . Normal-appearing appendix (coronal image s 54 through 68). Post cholecystectomy clips. The liver is enlarged in craniocaudal di ameter measuring 20 cm. No additional hepatic abnormality. The spleen, pancreas and bilateral adren al glands demonstrate no definite abnormality. Low volume status bladder demonstrates n o definite abnormality. No visualized ascites. No visualized free a ir. Normal caliber bowel loops throughout the abdomen and pelvis. iVanney Kurtz R.N. IMG CT PROCEDURES Automated Differential (03/05/2015 9:40 AM HAT LINER) athologist Signature Absolute 3.06 1.70 - POWERCHART Neutrophils 7.00 109L Lymphocytes 2.23 0.90 - POWERCHART 2.90 X109L Monocytes 0.38 0.30 - POWERCHART 0.90 X109L Eosinophils 0.36 0.05 - POWERCHART 0.50 X109L Absolute 0.03 0.00 - POWERCHART Basophil 0.30 X109L Specimen Anatomical Collection Method Collection Time Receive d Time (Source) Location / / Volume Laterality Blood 03/05/2015 9:40 AM 5 9:40 HAT LINER AM HAT LINER Mimi Vicente D.O. LAB BLOOD ADD-ON Performing Organization Address City/State/ZIP Code Phon e Number POWERCHART CBC with Differential (03/05/2015 9:40 AM HAT LINER) athologist Signature Leukocytes 6.1 3.4 - 10.5 POWERCHART X109L Erythrocytes 4.38 3.90 - 5.03 POWERCHART [id number] Hemoglobin 13.3 12.0 - 15.5 POWERCHART GDL Hematocrit 40.4 34.9 - 44.5 POWERCHART MCV 92.2 82.0 - 98.0 POWERCHART FL HX RDW 12.3 11.9 - 15.5 POWERCHART Platelet Count 213 150 - 450 POWERCHART X109L Specimen (Source) Anatomical Collection Method Collection Time Re ceived Time Location / / Volume Laterality Blood 03/05/2015 9:40 AM HAT LINER Mimi Vicente D.O. LAB BLOOD ADD-ON Performing Organization Address City/State/ZIP Code Phon e Number POWERCHART Lipase (03/05/2015 9:40 AM HAT LINER) P athologist Signature Lipase, S 27 13 - 60 UL POWERCHART Comment: Reference values have not been established for patients that are <18 years of age. Specimen (Source) Anatomical Collection Method Collection Time Re ceived Time Location / / Volume Laterality Blood 03/05/2015 9:40 AM HAT LINER Mimi Vicente D.O. LAB BLOOD ADD-ON Performing Organization Address City/State/ZIP Code Phon e Number POWERCHART Lactate (03/05/2015 9:40 AM HAT LINER) P athologist Signature Lactate, P 1.0 0.5 - 2.2 POWERCHART MMOLL Specimen (Source) Anatomical Collection Method Collection Time Re ceived Time Location / / Volume Laterality Blood 03/05/2015 9:40 AM HAT LINER Mimi Vicente D.O. LAB BLOOD NON ADD-ON Performing Organization Address City/State/ZIP Code Phon e Number POWERCHART CMP (Comprehensive Metabolic Panel) (03/05/2015 9:40 AM HAT LINER) P athologist Signature Alanine 16 7 - 45 UL POWERCHART Amniotransferas e, LD Comment: Reference values have not been established for patients that are less than 12 months of age. Albumin, S 4.4 3.5 - 5.2 GDL POWERCHART Comment: Reference values have not been established for patients that are less than 12 months of age. Alkaline Phosphatase, S 52 35 - 105 UL SMOOTH RCHART Aspartate Aminotransferase (AST), S 17 8 - 43 UL POWERCHART Comment: Reference values have not been established for patients that are less than 12 months of age. Sodium, S 139 136 - 145 MMOLL POWERCHART Comment: Reference values have not been established for patients that are less than 12 months of age. Potassium, S 4.2 3.5 - 5.1 MMOLL POWERCHART Comment: Reference [...] 15 6 - 24 MGDL POWERCHART Creatinine 0.66 0.51 - 0.95 MGDL POWERCHART Comment: Reference values have not been establish ed for patients that are <12 months of age. ESTIMATED GFR >60 mL/min/BSA Note: eGFR results will not be calculate d for patients <18 Calcium, Total, S 9.4 8.6 - 10.3 MGDL POWERC NANCE Anion Gap 11 7 - 15 MMOLL POWERCHART Comment: Less than 2 years- No establish ed reference range. HXeGFR (MDRD) >60 >=60 [id number] POWERCHART eGFR Black/ >60 >=60 [id number] POWERCHART Bilirubin, Total, S 0.2 <=1.2 MGDL POWERCHAR T Comment: No estab ref range for patients 84 hours to 1 month of age. Total Protein, S 7.5 6.4 - 8.3 GDL POWERCHAR T Comment: Reference values have not been established for patients that are less than 12 months of age. Glucose 98 70 - 139 MGDL POWERCHART Comment: ADA [...] Time Location / / Volume Laterality Blood 03/05/2015 9:40 AM HAT LINER Mimi Vicente D.O. LAB BLOOD ADD-ON Performing Organization Address [facility] Code Phon e Number POWERCHART HXUR % DYSMORPHIC RBC (03/05/2015 9:26 AM HAT LINER) athologist Signature Dysmorphic RBC <=25 <=25 POWERCHART Specimen Anatomical Collection Method Collection Time Receive d Time (Source) Location / / Volume Laterality Urine, First 03/05/2015 9:26 AM 5 9:26 Voided HAT LINER AM HAT LINER Mimi Vicente D.O. LAB HISTORICAL ORDERS Performing Organization Address [facility] Phon e Number POWERCHART (ABNORMAL) Urinalysis, Midstream, with culture if indicated (03/05/2015 9:26 AM HAT LINER) [facility] Method Time Signature HXUr Color Yellow Colorless POWERCHART Clarity Slightly Clear POWERCHART Cloudy (A) Glucose Negative Negative POWERCHART MGDL Protein, Ur, Trace Negative POWERCHART Dip MGDL HXBILIRUBIN Negative Negative POWERCHART Urobilinogen <2.0 MGDL POWERCHART pH, POCT, Urine 5.0 <5.0 POWERCHART HXBLOOD Large (A) Negative POWERCHART Ketones, QL(U) Negative Negative POWERCHART MGDL HXNITRITE Negative Negative POWERCHART Leukocyte Small (A) Negative POWERCHART Esterase Specific 1.021 POWERCHART [place], POCT, U HXUR WBC. 11-20 (A) None Seen POWERCHART HPF HXUR RBC. 41-50 (A) None Seen POWERCHART HPF Squamous 4-10 (A) None Seen POWERCHART Epithelial HPF Mucus Present (A) None Seen POWERCHART Specimen (Source) Anatomical Collection Method Collection Time Re ceived Time Location / / Volume Laterality Urine, First 03/05/2015 9:26 AM Voided HAT LINER Mimi Vicente D.O. LAB URINE ORDERABLES Performing Organization Address City/[facility] Phon e Number POWERCHART (ABNORMAL) Bacterial Culture, Aerobic, Urine (03/05/2015 9:26 AM HAT LINER) [facility] Method Time Signature Bacterial ENTFAECA <=2 POWERCHART Culture, (POSITIVE) Aerobic, Urine HXPre Reincubate POWERCHART Comment: Reincubate HXPre STREPTO POWERCHART Comment: 10,000 - 50,000 cfu/mL Streptoc occi isolated with Mixed harlan (multiple species present) HXFinal ENTFAECA POWERCHART Comment: 10,000 - 50,000 cfu/mL Enterococcus faec kelly isolated with Mixed harlan (multiple spec ies present) Specimen Anatomical Collection Method Collection Time Receive d Time (Source) Location / / Volume Laterality Urine, First 03/05/2015 9:26 AM 5 9:34 Voided HAT LINER AM HAT LINER Organism Antibiotic Method Susceptibility Enterococcus faecalis Ampicillin SUSCEPTIBILITY, <=2: Susce ptible [place] (MCG/ML) Enterococcus faecalis Ciprofloxacin SUSCEPTIBILITY, <=0.5: Emilie ceptible [place] (MCG/ML) Enterococcus faecalis Daptomycin SUSCEPTIBILITY, 4: Suscept ible [place] (MCG/ML) Enterococcus faecalis Doxycycline SUSCEPTIBILITY, >=16: Resi stant [place] (MCG/ML) Enterococcus faecalis Gentamicin high level SUSCEPTIBILITY, Syn- S: Susceptible resistance [place] (MCG/ML) Enterococcus faecalis Streptomycin SUSCEPTIBILITY, Syn-S: Emilie ceptible [place] (MCG/ML) Enterococcus faecalis Levofloxacin SUSCEPTIBILITY, 1: Suscept ible [place] (MCG/ML) Enterococcus faecalis Linezolid SUSCEPTIBILITY, 2: Suscept ible [place] (MCG/ML) Enterococcus faecalis Nitrofurantoin SUSCEPTIBILITY, <=16: Susc eptible [place] (MCG/ML) Enterococcus faecalis Tetracycline SUSCEPTIBILITY, >=16: Resi stant [place] (MCG/ML) Enterococcus faecalis Vancomycin SUSCEPTIBILITY, 2: Suscept ible [place] (MCG/ML) Mimi Vicente D.O. LAB MICROBIOLOGY - GENERAL O RDERABLES Performing Organization Address City/State/ZIP Code Phon e Number POWERCHART documented in this encounter Visit Diagnoses Not on filedocumented in this encounter
--- OUTSIDE RECORDS SUMMARY | 2022-02-03 23:58 | XMS_ITS | Encounter Summary ---
:1985 Author Organization [facility] Address [address] [place] [address] Care Team Providers Name Role Phone Unavailable Primary Care Provider Unavailable Encounter Details Date Type Department Care Team Description 12/13/2013 Hospital Encounter HX [facility] Griffin Ann M.D. [address] [place], [place] [phone] (Wo rk) Social History Tobacco Use Types Packs/Day Years Used Date Smoking Tobacco: Never Assessed Sex Assigned at Date Recorded Not on file documented as of this encounter Discharge Summaries Franca Brito R.N. - 12/13/2013 6:56 PM CDT [place] [address] Name: SILVIA STEELE Date of : 1985 12:00 AM Visit Date: 12/13/2013 6:00 PM [facility] Number: [id number] Address: [address] [place] [address] Primary Care Provider: PCP, SANTOS - YADIRA IMPORTANT: [facility] in [place] would like to thank you for allowing us to assist youwith your healthcare needs. The following includes patient education materials and information regarding your injury/illness. Diagnosis: Constipation NOS Follow-Up Instructions: With: Address: When: UNASSIGNED - AU PCP Within As Needed Comments: With: Address: When: Return to Emergency Department Within As Needed Comments: If symptoms worsen AT ANYTIME Your Upcoming Appointments: Date Time Location Reason Provider No Appointments found Patient Education Materials: 10431 Treating Constipation: LENARD MAGNESIUM CITRATE Constipation is a common and often uncomfortable problem. Constipation means you have bowel movements fewer than three times per week, or strain to pass hard, dry stool. It can last a short time. Or itcan be a problem that never seems to go away. The good news is that it can often be treated and controlled. Eat More Fiber One of the best ways to help treat constipation is to increase your fiber intake. You can do this either through diet or by using fiber supplements. Fiber (in whole grains, fruits, and vegetables) addsbulk and absorbs water to soften the stool. This helps the stool pass through the colon more easily.When you increase your fiber intake, do it slowly to avoid side effects such as bloating. Also increase the amount of water that you drink, too. Eating more of the following foods can add fiber to yourdiet. ?? High-fiber cereals ?? Whole grains, bran, and brown rice ?? Vegetables such as carrots, broccoli, and greens ?? Fresh fruits (especially apples, pears, and dried fruits like raisins and apricots) ?? Nuts and legumes (especially beans such as lentils, kidney beans, and durbin beans) Get Physically Active Exercise helps improve the working of your colon. This helps ease constipation. Try to get some activity every day. If you havent been active for a while, talk to your health care provider before starting again. Avoid Overuse of Laxatives Some laxatives stimulate the colon to work more quickly. However, using laxatives too often can leadto dependency If you use laxatives often, talk to the doctor. He or she can help you ease off of them. And dont use stimulant laxatives without talking to your health care provider first. Note: Your health care provider may suggest an [id number]-[id number] product to help ease your constipation. If so, follow directions carefully when using it. ?? [id number] Lennie Swain, [address] [place] [address], [place] [address]. All rights reserved. This information is not intended as a substitute for professional medical care. Always follow your healthcare professional's instructions. ED Tests and Procedures: Order Status XR Abdomen 2 Views Ordered Discharge Prescriptions & Home Medications: Medication/Strength Dose Route Frequency Indications/Special Instructions/Comments/Notes magnesium citrate (Citrate of Magnesia 1.745 g/30 [...] at all times in case of emergency. Medication Reconciliation: Reconciliation is a process of identifying the most accurate list of all medications a patient is taking - including name, dosage, frequency, and route - and using this list to provide to the patient information about how to take those medications. SILVIA STEELE or becky has reviewed the home medications you have listed with us. Review the following instructions: You have NOT received any prescriptions and you have told us you are not currently taking any home medications You have NOT received any prescriptions. You have been provided a discharge medications list and you may CONTINUE taking your medications as previously prescribed by your regular providers. You have received the listed prescriptions and BEGIN all listed prescriptions as directed. Since you have listed no home medications, please check with your family doctor if you are taking any other medications. You have received the listed prescriptions and BEGIN all listed prescriptions as directed. Youhave been provided a discharge medications list and you may CONTINUE all home medications as previously prescribed by your regular providers. You have received the listed prescriptions and BEGIN all listed prescriptions as directed. Youhave been provided a discharge medications list. The following CHANGES have been made to your medication list; Otherwise, CONTINUE all home medications as previously prescribed by your regular provider. IMPORTANT: We examined and treated you today [...] Republican/Relationship Date Time Provider Signature Date Time Medication Reconciliation: Reconciliation is a process of identifying the most accurate list of all medications a patient is taking - including name, dosage, frequency, and route - and using this list to provide to the patient information about how to take those medications. SILVIA STEELE or becky has reviewed the home medications you have listed with us. Review the following instructions: You have NOT received any prescriptions and you have told us you are not currently taking any home medications You have NOT received any prescriptions. You have been provided a discharge medications list and you may CONTINUE taking your medications as previously prescribed by your regular providers. You have received the listed prescriptions and BEGIN all listed prescriptions as directed. Since you have listed no home medications, please check with your family doctor if you are taking any other medications. You have received the listed prescriptions and BEGIN all listed prescriptions as directed. Youhave been provided a discharge medications list and you may CONTINUE all home medications as previously prescribed by your regular providers. You have received the listed prescriptions and BEGIN all listed prescriptions as directed. Youhave been provided a discharge medications list. The following CHANGES have been made to your medication list; Otherwise, CONTINUE all home medications as previously prescribed by your regular provider. IMPORTANT: We examined and treated you today [...] document has images extracted. Please consider using [email or web address] for all your patient education needs. Source: [facility] POWERCHART Document Id: [id number] Franca Brito R.N. - 12/13/2013 6:56 PM CDT ED Depart Summary [facility] Emergency Department / Urgent Care Clinical Discharge Summary PERSON INFORMATION Name SILVIA STEELE Age 28 Years 1985 12:00 AM Sex Female Language Citizen [place] PCP PCP, UNASSIGNED - AU Marital Status Single Visit Id Visit Reason Constipation; RECTAL BLEEDING Specialty Enc Type Emergency Med Service Emergency Medicine Referred by Track Group [facility] ED/UC Discharge 12/13/2013 6:48 PM Tracking Id [id number] Checkout 12/13/2013 6:48 PM Checkin 12/13/2013 6:00 PM Acuity 3 -Urgent Dispo Type * Discharged to Home or Self Care Arrival 12/13/2013 6:00 PM Reg Status Complete LOS 000 00:48 Address: [address] [place] [address] Comment: PROVIDER INFORMATION Provider Role Provider Contact Time FRANCA BRITO OCCUPATIONAL HEALTH PROFESSIONAL Nurse 12/13/13 18:05 BLANCHE DAVILA MD ED Provider 12/13/13 18:07 DIAGNOSIS Constipation NOS Comment: PATIENT EDUCATION INFORMATION Instructions: Treating Constipation Follow up: With: Address: When: UNASSIGNED - PCP Within As Needed Comments: With: Address: When: Return to Emergency Department Within As Needed Comments: If symptoms worsen AT ANYTIME Source: [facility] POWERCHART Document Id: [id number] documented in this encounter ED Notes Blanche Davila M.D. - 12/14/2013 6:44 PM CDT Constipation Patient: SILVIA STEELE Age: 28 years Sex: Female : 1985 Author: BLANCHE DAVILA MD Attachments: None Basic Information Additional information: Chief Complaint from Nursing Triage Note : Chief Complaint Description 12/13/2013 18:05 CDT Chief Complaint Description Pt arrives c/o left side abdominal pain. Report last BM 5 days ago and reports red joaquin blood on toilet paper with wiping and pain. 12/13/2013 18:03 CDT Chief Complaint Description No BM for 5 days. rectal bleeding for one week. No hx of hemorrhoids. abdominal pain. . History of Present Illness The patient presents with constipation. The onset was 1 weeks ago. The course/duration of symptoms is constant. Last bowel movement 7 week(s) ago. Character of constipation unable to defecate. The degree at present is severe. The exacerbating factor is RECENT PRIOR DIARRHEA. The relieving factor is none. Risk factors consist of none. Prior episodes: none. Therapy today: none. Associated symptoms: abdominal pain, blood in stool and HEMORRHOIDS. Additional history: none. Review of Systems Constitutional symptoms: Negative except as documented in HPI. Skin symptoms: Negative except as documented in HPI. Eye symptoms: Negative except as documented in HPI. ENMT symptoms: Negative except as documented in HPI. Respiratory symptoms: Negative except as documented in HPI. Cardiovascular symptoms: Negative except as documented in HPI. Gastrointestinal symptoms: Abdominal pain, moderate, diffuse, colicky, dull and achy. Musculoskeletal symptoms: Negative except as documented in HPI. Neurologic symptoms: Negative except as documented in HPI. Hematologic/Lymphatic symptoms: Negative except as documented in HPI. Allergy/immunologic symptoms: Negative except as documented in [...] PowerChart. Cytopathology, slides, cervical or vaginal (the [place] System); manual screening under physician supervision (07300) in the week of 03/10/2004 at 18 Years. Comments: 04/18/2010 21:45 - [place]ALES Hx: [id number] - LAB-CYTOPATH, SM,D/V,TDS<3SM TECH 03/21/2013 17:41 - Contributor source changed to PowerChart.. Family history: No family history items have been selected or recorded.. Physical Examination Vital Signs: Per nurse's notes. General: Alert and no acute distress. Skin: Warm, intact, no pallor and no rash. Eye: Normal conjunctiva. Ears, nose, mouth and throat: Oral mucosa moist and no pharyngeal erythema or exudate. Neck: Supple, trachea midline and no tenderness. Cardiovascular: Regular rate and rhythm, No murmur, Normal peripheral perfusion and No edema. Respiratory: Lungs are clear to auscultation, respirations are non-labored, breath sounds are equal and Symmetrical chest wall expansion. Gastrointestinal: Soft, Non distended, Tenderness: Negative, Guarding: Negative, Rebound: Negative, Bowel sounds: Normal and Signs: None. Back: Nontender, Normal range of motion, Normal alignment and no step-offs. Musculoskeletal: Normal ROM. normal strength. no tenderness. no swelling. no deformity. Neurological: Alert and oriented to person, place, time, and situation, No focal neurological deficit observed, CN II-XII intact, normal sensory observed, normal motor observed, normal speech observed and normal coordination observed. Lymphatics: No lymphadenopathy. Psychiatric: Cooperative. Medical Decision Making Differential Diagnosis:: Constipation, obstipation, fecal impaction. Documents reviewed:Emergency department nurses' notes. Results review:All Results 12/13/2013 18:56 CDT ED Discharge Instructions ED Discharge Instructions 12/13/2013 18:56 CDT ED Depart Summary ED Depart Summary 12/13/2013 18:48 CDT Valuables/Belongings - Text ED Disposition Summary - Text ED Pain Assessment - Text 12/13/2013 18:24 CDT XR Abdomen 2 Views [id number] 12/13/2013 18:05 CDT ED Primary Assessment - Text 12/13/2013 18:03 CDT ED Triage Assessment - Text 12/13/2013 18:48 CDT Pain Symptoms Yes Accompanied by Alone Mode of Discharge Ambulatory Transportation Private vehicle Discharge From ED With Home Med List Patient Status at Discharge from ED Improved ED Disposition Summary Form ED Disposition Summary Form ED Pain Assessment Form ED Pain Assessment Form Valuables/Belongings Form Valuables/Belongings Form 12/13/2013 18:05 CDT Pain Symptoms Yes Pain 1 Location Abdomen Pain 1 Laterality Left Heart Rhythm Regular Respirations Unlabored Respiratory Pattern Regular Airway Patent Oxygen Therapy Room air Status Patient denies Are you ? No Skin Color Normal for ethnicity Skin Temperature Warm Skin Description Dry Neuro Patient Stated Symptoms None Gait Steady Characteristics of Speech Clear Level of Consciousness Alert Last Well Time Known Not applicable Affect/Behavior Calm, Cooperative, Appropriate Orientation Oriented x 3 Domestic Abuse Concerns None Nutrition ED Adequate GI Patient Stated Symptoms Abdominal pain, Constipation Tracking Acuity 3 -Urgent Tracking Group [facility] ED/ Bowel Movement Last Date 12/08/2013 Tobacco Use/Currently Using Yes Exposure to Tobacco Smoke Patient smokes, Other: occ alcohol Smoking Status Current every day smoker Chief Complaint Description Pt arrives c/o left side abdominal pain. Report last BM 5 days ago and reports red joaquin blood on toilet paper with wiping and pain. Mode of Arrival ED Private vehicle Track Medical Accompanied by Alone Information Given by Patient Languages Citizen [place] Treatments Prior to Arrival None DENNY Level 1 No DENNY Level 2 No DENNY Level 3 One Is Patient Female and 13-50 no hysterect Yes GI Detailed Assessment Yes ED Primary Assessment Form ED Primary Assessment Form 12/13/2013 18:03 CDT Pain Symptoms Yes Pain 1 Location Abdomen Tracking Acuity 3 -Urgent Tracking Group [facility] ED/ Chief Complaint Description No BM for 5 days. rectal bleeding for one week. No hx of hemorrhoids. abdominal pain. Mode of Arrival ED Private vehicle Track Medical Accompanied by Alone Information Given by Patient Languages Citizen [place] Treatments Prior to Arrival None DENNY Level 1 No DENNY Level 2 No DENNY Level 3 Many Is Patient Female and 13-50 no hysterect Yes ED Triage Assessment Form ED Triage Assessment Form 12/13/2013 18:00 CDT Is Patient Female and 13-50 no hysterect Yes . Radiology results:Radiologist's interpretation: : Radiology 12/13/2013 18:24 CDT XR Abdomen 2 Views [id number] . Reexamination/ Reevaluation the patient has undergone prior tubal ligation x 18 months; abdominal XR's confirm the peresence of a modest stool burden; I have recommended Golytely & mag cuitrate to relieve her constipation; ifher symptoms are unresolved I have recommended returning ot the ED for reassessment Impression and Plan Diagnosis CONSTIPATION NO EVIDENCE FOR PARTIAL MECHANICAL BOWEL OBSTRUCTION Plan Condition: Unchanged. Disposition: Discharged: to home. Patient was given the following educational materials: Treating Constipation. Follow up with: UNASSIGNED - AU PCP Within As Needed; Return to Emergency Department Within As Needed If symptoms worsen AT ANYTIME. Counseled: Patient, Regarding diagnostic results, Regarding treatment plan, Regarding prescription, Patient indicated understanding of instructions. Electronically Signed By: BLANCHE DAVILA MD On: 12/14/2013 06:50 PM Modified by and Electronically Signed by: BLANCHE DAVILA MD On: 12/14/2013 06:50 PM Source: [employer] Document Id: [id number] Franca Brito R.N. - 12/13/2013 6:48 PM CDT ED Disposition Summary ED Disposition Summary Entered On: 12/13/2013 18:55 CDT Performed On: 12/13/2013 18:48 CDT by FRANCA BRITO RN ED Disposition Summary Accompanied By : Alone Mode of Discharge : Ambulatory Transportation : Private vehicle Discharge From ED With : Home Med List Printed Discharge Instructions Given to Patient : Yes Patient Status at Discharge from ED : Improved FRANCA BRITO RN - 12/13/2013 18:54 CDT Source: [employer] Document Id: [id number] CDT!8 Franca Brito RDevendra - 12/13/2013 6:48 PM CDT ED Pain Assessment ED Pain Assessment Entered On: 12/13/2013 18:55 CDT Performed On: 12/13/2013 18:48 CDT by FRANCA BRITO RN Pain Assessment Pain Symptoms : Yes FRANCA BRITO RN - 12/13/2013 18:55 CDT Source: [employer] Document Id: [id number] CDT!3 Franca Brito R.N. - 12/13/2013 6:05 PM CDT ED Primary Assessment Document Has Been Updated ED Primary Assessment Entered On: 12/13/2013 18:54 CDT Performed On: 12/13/2013 18:05 CDT by FRANCA BRITO RN Reason For Visit (As Of: 12/13/2013 18:54:46 CDT) Problems(Active) No Chronic Problems (Cerner :NKP ) Name of Problem: No Chronic Problems ; Recorder: NATY XIE MD; Confirmation: Confirmed ; Classification: Medical ; Code: NKP ; Last Updated: 05/15/2013 16:30 [employer]; Life Cycle Date: 05/15/2013 ; Life Cycle Status: Active ; Vocabulary: Cerner Diagnoses(Active) Constipation Date: 12/13/2013 ; Diagnosis Type: Reason For Visit ; Confirmation: Complaint of ; Clinical Dx: Constipation ; Classification: Medical ; Clinical Service: Emergency medicine ; Code: PNED ;Probability: 0 ; Diagnosis Code: [id number] Constipation NOS Date: 12/13/2013 ; Diagnosis Type: Discharge ; Confirmation: Confirmed ; Clinical Dx: Constipation NOS ; Classification: Medical ; Clinical Service: Emergency medicine ; Code: ICD-9-CM; Probability: 0 ; Diagnosis Code: 564.00 Triage Chief Complaint Description : Pt arrives c/o left side abdominal pain. Report last BM 5 days ago andreports red joaquin blood on toilet paper with wiping and pain. Information Given By : Patient Accompanied By : Alone Mode of Arrival ED : Private vehicle Track : Medical Languages : Citizen [place] Is Patient Female and 13-50 no hysterectomy : Yes Status : Patient denies Are you ? : No Treatments Prior to Arrival : None FRANCA BRITO RN - 12/13/2013 18:52 CDT Pain Assessment Pain Symptoms : Yes FRANCA BRITO RN - 12/13/2013 18:52 CDT Pain Pain Assessment Grid Pain 1 Location : Abdomen Laterality : Left FRANCA BRITO RN - 12/13/2013 18:52 CDT DENNY DENNY Level 1 : No DENNY Level 2 : No DENNY Level 3 : One FRANCA BRITO RN - 12/13/2013 18:52 CDT DCP GENERIC CODE Tracking Acuity : 3 -Urgent Tracking Group : [facility] ED/ FRANCA BRITO 12/13/2013 18:52 CDT Allergy (As Of: 12/13/2013 18:54:46 CDT) Allergies (Active) NKA Estimated Onset Date: Unspecified ; Created By: KATIE BRUNNER MD; Reaction Status: Active ; Category: Drug ; Substance: NKA ; Type: Allergy ; Updated By: KATIE BRUNNER MD; Reviewed Date: 12/13/2013 18:53 CDT Respiratory Airway : Patent Respirations : Unlabored Respiratory Pattern : Regular Oxygen Therapy : Room air FRANCA BRITO 12/13/2013 18:52 CDT Cardiovascular Heart Rhythm : Regular Skin Color : Normal for ethnicity Skin Description : Dry Skin Temperature : Warm FRANCA BRITO 12/13/2013 18:52 CDT Neurological Last Well Time Known : Not applicable Level of Consciousness : Alert Orientation : Oriented x 3 Characteristics of Speech : Clear Neuro Patient Stated Symptoms : None Gait : Steady FRANCA BRITO 12/13/2013 18:52 CDT ED Psychosocial Affect/Behavior : Calm, Cooperative, Appropriate Domestic Abuse Concerns : None FRANCA BRITO 12/13/2013 18:52 CDT Gastrointestinal Nutrition ED : Adequate GI Detailed Assessment : Yes FRANCA BRITO 12/13/2013 18:52 CDT GI Detailed GI Patient Stated Symptoms : Abdominal pain, Constipation Bowel Movement Last Date : 12/08/2013 CDT FRANCA BRITO 12/13/2013 18:52 CDT Musculoskeletal Fall Prevention Education Provided : ANTONIO FRANCA BRITO 12/13/2013 18:52 CDT Social Habits Tobacco Use/Currently Using : Yes Exposure to Tobacco Smoke : Patient smokes, Other: occ alcohol Smoking Status : Current every day smoker FRANCA BRITO - 12/13/2013 18:52 CDT Source: [facility] POWERCHART Document Id: [id number] CDT!58 Sangita Allen R.NEmeka - 12/13/2013 6:03 PM CDT ED Triage Assessment Document Has Been Updated ED Triage Assessment Entered On: 12/13/2013 18:04 CDT Performed On: 12/13/2013 18:03 CDT by SANGITA ALLEN RN Reason For Visit (As Of: 12/13/2013 18:04:22 CDT) Problems(Active) No Chronic Problems (Cerner :NKP ) Name of Problem: No Chronic Problems ; Recorder: NATY XIE MD; Confirmation: Confirmed ; Classification: Medical ; Code: NKP ; Last Updated: 05/15/2013 16:30 [employer]; Life Cycle Date: 05/15/2013 ; Life Cycle Status: Active ; Vocabulary: Cerner Diagnoses(Active) Constipation Date: 12/13/2013 ; Diagnosis Type: Reason For Visit ; Confirmation: Complaint of ; Clinical Dx: Constipation ; Classification: Medical ; Clinical Service: Emergency medicine ; Code: PNED ;Probability: 0 ; Diagnosis Code: [id number] Triage Chief Complaint Description : No BM for 5 days. rectal bleeding for one week. No hx of hemorrhoids. abdominal pain. Information Given By : Patient Accompanied By : Alone Mode of Arrival ED : Private vehicle Track : Medical Languages : Citizen [place] Patient Informed of Triage Location : Emergency department Is Patient Female and 13-50 no hysterectomy : Yes Treatments Prior to Arrival : None SANGITA ALLEN RN - 12/13/2013 18:03 CDT Pain Assessment Pain Symptoms : Yes SANGITA ALLEN RN - 12/13/2013 18:03 CDT Pain Pain Assessment Grid Pain 1 Location : Abdomen SANGITA ALLEN RN - 12/13/2013 18:03 CDT DENNY DENNY Level 1 : No DENNY Level 2 : No DENNY Level 3 : Many SANGITA ALLEN RN - 12/13/2013 18:03 CDT DCP GENERIC CODE Tracking Acuity : 3 -Urgent Tracking Group : [facility] ED/ SANGITA ALLEN RN - 12/13/2013 18:03 CDT [facility] Document Id: [id number] CDT!24 documented in this encounter Miscellaneous Notes Miscellaneous - Franca Brito R.N. - 12/13/2013 6:48 PM CDT Valuables/Belongings Valuables/Belongings Entered On: 12/13/2013 18:55 CDT Performed On: 12/13/2013 18:48 CDT by FRANCA BRITO RN Valuables/Belongings Valuables/Belongings Grid Valuables with Patient Clothes, Patient Valuables : Pants, Shirt, Shoes FRANCA BRITO RN - 12/13/2013 18:55 CDT Source: [employer] Document Id: [id number]!5 documented in this encounter Plan of Treatment Not on filedocumented as of this encounter Procedures Procedure Name Priority Date/Time Associated Diagnosis Comme nts DX ABDOMEN SUPINE Routine 12/13/2013 6:17 PM Resu lts for this WITH UPRIGHT OR CDT procedure ar e in DECUBITUS 2 VIEWS the result s section. documented in this encounter Results DX Abdomen Supine with Upright or Decubitus 2 Views (12/13/2013 6:17 PM CDT) Anatomical Region Laterality Modality Abdomen Right Radiographic Imaging Specimen (Source) Anatomical Collection Method Collection Time Re ceived Time Location / / Volume Laterality 12/13/2013 6:17 PM CDT Impressions 12/13/2013 7:20 PM CDT Nonobstructive bowel gas pattern. No gross free intraperitoneal air. Cholecystectomy cli ps. Mild/moderate stool in the colon. Lung bases are clear. Narrative 12/13/2013 7:20 PM CDT EXAM: XR Abdomen 2 Views INDICATION: last BM 1 week ago? constipa tion vs obstruction COMPARISON: No prior for comparison Procedure Note Spencer Butler M.D. / ProviderStella M.D. - 09/11/2016 EXAM: XR Abdomen 2 Views INDICATION: last BM 1 week ago? constipa tion vs obstruction COMPARISON: No prior for comparison IMPRESSION: Nonobstructive bowel gas pat tern. No gross free intraperitoneal air. Cholecystectomy cli ps. Mild/moderate stool in the colon. Lung bases are clear. Kimi Prince(R)(CT), R.T.(R) IMG DIAGNOSTIC PATRICK GING PROCEDURES documented in this encounter Visit Diagnoses Not on filedocumented in this encounter
--- OUTSIDE RECORDS SUMMARY | 2022-02-03 23:58 | XMS_ITS | Encounter Summary ---
:1985 Author Organization [facility] Address [address] [place] [address] Care Team Providers Name Role Phone Unavailable Primary Care Provider Unavailable Encounter Details Date Type Department Care Team Description 03/03/2015 Hospital Encounter HX [facility] Nicole Hill M.D. [address] [place] [phone] (Wo rk) Social History Tobacco Use Types Packs/Day Years Used Date Smoking Tobacco: Never Assessed Sex Assigned at Date Recorded Not on file documented as of this encounter Last Filed Vital Signs Vital Sign Reading Time Taken Comments Blood Pressure - - Pulse 90 03/03/2015 12:12 PM GUN STRIPER Temperature - - Respiratory Rate 18 03/03/2015 12:12 PM GUN STRIPER Oxygen Saturation - - Inhaled Oxygen Concentration - - Weight - - Height 169 cm (5' 6.54) 03/03/2015 12:12 PM GUN STRIPER Body Mass Index - - documented in this encounter Discharge Summaries Isabella Currie, L.P.N. - 03/03/2015 2:15 PM CST ED Discharge Instructions [facility] [address] [place] [address] Name: SILVIA MAY Date of : 1985 12:00 AM Visit Date: 03/03/2015 11:24 AM [facility] Number: [id number] Address: [address] [place] [id number] Primary Care Provider: SOFIE VÁZQUEZ MD IMPORTANT: [facility] in [place] would like to thank you for allowing us to assist youwith your healthcare needs. The following includes patient education materials and information regarding your injury/illness. Diagnosis: Follow-Up Instructions: With: Address: When: SOFIE VÁZQUEZ [address] [place] [address] [phone] Business (1) Within As Needed Your Upcoming [...] dont have one. Go to [email or web address] and click on Create Your Account. Then, follow the directions to complete the online form. Youll be asked for your [facility] number which you can find at the top of this document. ED Tests and Procedures: Order Status XR Nasal Bones 3 or more views Ordered Discharge Prescriptions & Home Medications: Medication/Strength Dose Route Frequency Indications/Special Instructions/Comments/Notes traMADol (traMADol 50 mg oral tablet) 50 mg Oral every 12 hours as needed for Pain acetaminophen-codeine (Tylenol with Codeine #3 oral tablet) [...] Libertarian/Relationship Date Time Provider Signature Date Time Source: [employer] Document Id: [id number] STRIPER Isabella Currie L.P.N. - 03/03/2015 2:15 PM CST ED Depart Summary [facility] Emergency Department / Urgent Care Clinical Discharge Summary PERSON INFORMATION Name SILVIA MAY Age 29 Years 1985 12:00 AM Sex Female Language South Korean PCP SOFIE VÁZQUEZ MD Marital Status Single N [id number] Visit Id Visit Reason Facial pain; Nasal injury; NOSE PAIN [facility] Urgent Care Referred by Track Group [facility] ED/UC Discharge 03/03/2015 2:15 PM Tracking Id [id number] Checkout 03/03/2015 2:15 PM Checkin 03/03/2015 11:24 AM Acuity 4 -Less Urgent Dispo Type * Discharged to Home or Self Care Arrival 03/03/2015 11:24 AM Reg Status Complete LOS 000 02:51 Address: [address] [place] [id number] Comment: PROVIDER INFORMATION Provider Role Provider Contact Time DAYAN CHEUNG MECHANICAL ENGINEERING INTERN ED Provider 03/03/15 12:12 NIYA FLYNN LPN ED Nurse 03/03/15 12:12 DIAGNOSIS Comment: PATIENT EDUCATION INFORMATION Instructions: Follow up: With: Address: When: SOFIE VÁZQUEZ [address] [place] [phone] Business (1) Within As Needed [facility] Document Id: [id number] STRIPER documented in this encounter H&P Notes Niya Flynn L.P.N. - 03/03/2015 12:12 PM CST Urgent Care Intake Urgent Care Intake Entered On: 03/03/2015 12:13 GUN STRIPER Performed On: 03/03/2015 12:12 GUN STRIPER by NIYA FLYNN LPN Intake Chief Complaint : NOSE INJURY Onset of Symptoms : LAST NIGHT LMP Date : 03/03/15 Temperature Core : 36.6 DegC(Converted to: 97.9 DegF) Peripheral Pulse Rate : 90 /min Respiratory Rate : 18 /min Height : 169 cm(Converted to: 5 ft 7 inch(es), 67 inch(es)) NIYA FLYNN LPN - 03/03/2015 12:12 GUN STRIPER General Info Information Given By : Patient Languages : South Korean Is Patient Female and 13-50 no hysterectomy : Yes Status : Patient denies Are you ? : No NIYA FLYNN LPN - 03/03/2015 12:12 GUN STRIPER Subjective Pain Symptoms : Yes NIYA FLYNN LPN - 03/03/2015 12:12 GUN STRIPER Pain Scale Pain Scale Verbal 0-10 : Open NIYA FLYNN LPN - 03/03/2015 12:12 GUN STRIPER Pain Pain Assessment Grid Pain 1 Location : Nose Laterality : Right Intensity : 7 NIYA FLYNN LPN - 03/03/2015 12:12 GUN STRIPER Dependent Habits Tobacco Use/Currently Using : No Exposure to Tobacco Smoke : Patient smokes, Other: occ alcohol Smoking Status : Never smoker NIYA FLYNN LPN - 03/03/2015 12:12 GUN STRIPER Caffeine Use Grid Caffeine Use : None NIYA FLYNN LPN - 03/03/2015 12:12 GUN STRIPER Nutrition Nutrition Risk Factors by History Adult : None NIYA FLYNN LPN - 03/03/2015 12:12 GUN STRIPER Functional Current Daily Living Assistance : None NIYA FLYNN LPN - 03/03/2015 12:12 GUN STRIPER Psychosocial Domestic Abuse Concerns : None Behavioral Health Screen/Safety Assmt : No Mormonism Preference : No Mormonism Affiliation NIYA FLYNN LPN - 03/03/2015 12:12 GUN STRIPER Advance Directive Advanced Directives : No Advance Directive Additional Information : No NIYA FLYNN LPN - 03/03/2015 12:12 GUN STRIPER Educ Needs Learning Style Preference Adult Grid Patient : Printed materials Family : None NIYA FLYNN Jess SANABIRA - 03/03/2015 12:12 GUN STRIPER Source: [employer] Document Id: [id number] GUN STRIPER!47 STRIPER documented in this encounter ED Notes Isabella Currie L.P.N. - 03/03/2015 2:14 PM CST ED Disposition Summary ED Disposition Summary Entered On: 03/03/2015 14:15 GUN STRIPER Performed On: 03/03/2015 14:14 GUN STRIPER by ISABELLA CURRIE LPN ED Disposition Summary Accompanied By : Alone Discharge From ED With : Home Med List Printed Discharge Instructions Given to Patient : Yes ISABELLA CURRIE LPN - 03/03/2015 14:14 GUN STRIPER Source: [employer] Document Id: [id number] GUN STRIPER!5 STRIPER Dayan Cheung R.N., N.P. - 03/03/2015 1:23 PM CST Nasal injury, Facial pain Patient: SILVIA MAY Age: 29 years Sex: Female : 1985 Author: DAYAN CHEUNG MECHANICAL ENGINEERING INTERN Attachments: None Basic Information Additional information: Chief Complaint from Nursing Triage Note : Chief Complaint Description 03/03/2015 11:26 GUN STRIPER Chief Complaint Description Pt arrives reporting hitting nose yesterday. bruising on right side of nose. . History of Present Illness The patient presents with facial injury. The onset was 8 hours ago. Location: Midline nose. Type of injury: direct blow and She hit her nose on a DVD player. . The location where the incident occurred was at home. The character of symptoms is pain and swelling. The degree at present is moderate. The patient presents with facial pain and Midline at site of nose injury. . Review of Systems Constitutional symptoms: Negative except as documented in HPI. Skin symptoms: Abrasions and Redness and swelling over nose injury. . ENMT symptoms: Denies rhinorrhea and otorrhea. . Respiratory symptoms: Negative except as documented in [...] PowerChart. Cytopathology, slides, cervical or vaginal (the [place] [facility]); manual screening under physician supervision.. ([id number]) in the week of 03/10/2004 at 18 Years. Comments: 04/18/2010 21:45 - CARMEN MORALES Hx: [id number] - LAB-CYTOPATH, SM,D/V,TDS<3SM TECH 03/21/2013 17:41 - Contributor source changed to PowerChart.. Physical Examination Vital Signs: Vital Signs 03/03/2015 12:12 GUN STRIPER Temperature Core 36.6 DegC Peripheral Pulse Rate 90 /min Respiratory Rate 18 /min . General: Alert and no acute distress. Skin: Warm, dry, pink and Contusion over right lateral nose. . Head: Normocephalic. Neck: Supple and trachea midline. Eye: Pupils are equal, round and reactive to light. Ears, nose, mouth and throat: Tympanic membranes clear and No rhinorrhea or otorrhea noted. . Respiratory: Lungs are clear to auscultation. Chest wall: No tenderness. Back: Nontender. Medical Decision Making Differential Diagnosis:Facial fracture, nasal fracture. Radiology results: Impression and Plan Plan Prescriptions: Tramadol. Follow up with: SOFIE Parmar As Needed. Electronically Signed By: DAYAN CHEUNG On: 03/03/2015 02:14 PM Modified by and Electronically Signed by: DAYAN CHEUNG On: 03/03/2015 02:14 PM Source: [facility] POWERCHART Document Id: [id number]} STRIPER Franca Brito R.NEmeka - 03/03/2015 11:26 AM CST ED Triage Assessment Document Has Been Updated ED Triage Assessment Entered On: 03/03/2015 11:27 GUN STRIPER Performed On: 03/03/2015 11:26 GUN STRIPER by FRANCA BRITO RN Reason For Visit (As Of: 03/03/2015 11:27:57 GUN STRIPER) Problems(Active) No Chronic Problems (Cerner :NKP ) Name of Problem: No Chronic Problems ; Recorder: NATY XIE MD; Confirmation: Confirmed ; Classification: Medical ; Code: NKP ; Last Updated: 05/15/2013 16:30 GUN STRIPER; Life Cycle Date: 05/15/2013 ; Life Cycle Status: Active ; Vocabulary: Cerner Diagnoses(Active) Nasal injury Date: 03/03/2015 ; Diagnosis Type: Reason For Visit ; Confirmation: Complaint of ; Clinical Dx: Nasal injury ; Classification: Medical ; Clinical Service: Emergency medicine ; Code: PNED ;Probability: 0 ; Diagnosis Code: [id number] Triage Chief Complaint Description : Pt arrives reporting hitting nose yesterday. bruising on right side ofnose. Information Given By : Patient Accompanied By : Alone Mode of Arrival ED : Private vehicle Track : Trauma Other Languages : South Korean Patient Informed of Triage Location : Urgent Care Treatments Prior to Arrival : None Are you ? : No Is Patient Female and 13-50 no hysterectomy : Yes Status : Patient denies FRANCA BRITO RN - 03/03/2015 11:26 GUN STRIPER Pain Assessment Pain Symptoms : Yes FRANCA BRITO RN - 03/03/2015 11:26 GUN STRIPER Pain Scale Pain Scale Verbal 0-10 : Open FRANCA BRITO RN - 03/03/2015 11:26 GUN STRIPER Pain Pain Assessment Grid Pain 1 Location : Nose Laterality : Right FRANCA BRITO RN - 03/03/2015 11:26 GUN STRIPER DENNY DENNY Level 1 : No DENNY Level 2 : No DENNY Level 3 : One FRANCA BRITO RN - 03/03/2015 11:26 GUN STRIPER DCP GENERIC CODE Tracking Acuity : 4 -Less Urgent Tracking Group : [facility] ED/UC FRANCA BRITO RN - 03/03/2015 11:26 GUN STRIPER Source: [facility] [employer] Document Id: [id number] GUN STRIPER!29 STRIPER documented in this encounter Plan of Treatment Not on filedocumented as of this encounter Procedures Procedure Name Priority Date/Time Associated Diagnosis Comme nts DX NASAL BONES 3+ Routine 03/03/2015 2:39 PM Resu lts for this VIEWS GUN STRIPER procedure are i n the results section. documented in this encounter Results DX Nasal Bones 3+ Views (03/03/2015 2:39 PM GUN STRIPER) Anatomical Region Laterality Modality Skull N/A Radiographic Imaging Specimen (Source) Anatomical Collection Method Collection Time Re ceived Time Location / / Volume Laterality 03/03/2015 2:39 PM GUN STRIPER Impressions 03/04/2015 6:07 AM GUN STRIPER No fracture by plain radiography. Slight deviation of the nasal septum to the right. Narrative 03/04/2015 6:07 AM GUN STRIPER EXAM: XR Nasal Bones 3 or more views INDICATION: INJURY COMPARISON: No prior for comparison. Procedure Note Spencer Butler M.D. / ProviderStella M.D. - 09/10/2016 EXAM: XR Nasal Bones 3 or more views INDICATION: INJURY COMPARISON: No prior for comparison. IMPRESSION: No fracture by plain radiogr aphy. Slight deviation of the nasal septum to the right. Kimi Prince(R)(CT), R.T.(R) IMG DIAGNOSTIC PATRICK GING PROCEDURES documented in this encounter Visit Diagnoses Not on filedocumented in this encounter
--- OUTSIDE RECORDS SUMMARY | 2022-02-03 23:58 | XMS_ITS | Encounter Summary ---
:1985 Author Organization [facility] Address [address] [place] [address] Care Team Providers Name Role Phone Unavailable Primary Care Provider Unavailable Encounter Details Date Type Department Care Team Description 08/13/2004 Hospital Encounter HX [facility] Akilah Hyde M .D. [address] [place] [address] (Wo rk) Social History Tobacco Use Types Packs/Day Years Used Date Smoking Tobacco: Never Assessed Sex Assigned at Date Recorded Not on file documented as of this encounter Plan of Treatment Not on filedocumented as of this encounter Visit Diagnoses Not on filedocumented in this encounter
--- OUTSIDE RECORDS SUMMARY | 2022-02-03 23:58 | XMS_ITS | Encounter Summary ---
:1985 Author Organization [facility] Address [address] [place] [address] Care Team Providers Name Role Phone Unavailable Primary Care Provider Unavailable Encounter Details Date Type Department Care Team Description 08/28/2004 Hospital Encounter HX [facility] Provider, Histor ical Social History Tobacco Use Types Packs/Day Years Used Date Smoking Tobacco: Never Assessed Sex Assigned at Date Recorded Not on file documented as of this encounter Plan of Treatment Not on filedocumented as of this encounter Visit Diagnoses Not on filedocumented in this encounter
--- OUTSIDE RECORDS SUMMARY | 2022-02-03 23:58 | XMS_ITS | Encounter Summary ---
:1985 Author Organization [facility] Address [address] [place] [address] Care Team Providers Name Role Phone Unavailable Primary Care Provider Unavailable Encounter Details Date Type Department Care Team Description 09/11/2004 Hospital Encounter HX [facility] Provider, Histor ical Social History Tobacco Use Types Packs/Day Years Used Date Smoking Tobacco: Never Assessed Sex Assigned at Date Recorded Not on file documented as of this encounter Plan of Treatment Not on filedocumented as of this encounter Visit Diagnoses Not on filedocumented in this encounter
--- OUTSIDE RECORDS SUMMARY | 2022-02-03 23:58 | XMS_ITS | Encounter Summary ---
:1985 Author Organization [facility] Address [address] [place] [address] Care Team Providers Name Role Phone Unavailable Primary Care Provider Unavailable Encounter Details Date Type Department Care Team Description 2013 Hospital Encounter [facility]X [facility] Naty Xie M.D. Social History Tobacco Use Types Packs/Day Years Used Date Smoking Tobacco: Never Assessed Sex Assigned at Date Recorded Not on file documented as of this encounter Last Filed Vital Signs Vital Sign Reading Time Taken Comments Blood Pressure 108/72 2013 9:20 AM PULP MILL OPERATOR Pulse 92 2013 9:20 AM PULP MILL OPERATOR Temperature - - Respiratory Rate 18 2013 9:20 AM PULP MILL OPERATOR Oxygen Saturation - - Inhaled Oxygen Concentration - - Weight 103 kg (227 lb 11.8 oz) 2013 9:20 AM PULP MILL OPERATOR Height - - Body Mass Index - - documented in this encounter Progress Notes Naty Xie M.D. - 2013 9:14 AM CST [id number] MED DATE: 2013 A 28-year-old, who is here today for follow up of abdominal pain. I saw her actually on the andat that time it appeared that she had gastroenteritis. She did stop vomiting. No further chills. No diarrhea that she has had. She does continue to have mid upper abdominal discomfort when she eats anything, when she drinks anything. She does not feel nauseated though at this point. No fever as far she is aware. She did have fever earlier in the course, but none in the last couple of days. She has not due to the discomfort been able to return to work. She works at [employer], so she missed a total of 5 days counting today from the 13th to the 17th. Past Medical/Surgical History Significant for cholecystectomy in 2010. Her daily caffeine intake is very little. She does smoke [place] daily basis and very rare alcohol use. No dysuria symptoms. Allergies She has no known allergies. Medications Taking no medication currently. Systems Review Eleven systems review is otherwise negativ e. Vital Signs See EMR. Physical Examination General: Patient looks fairly comfortable, alert and oriented. Lungs: Clear. Cardiovascular: Regular rate and rhythm. Abdomen: Bowel sounds are present. Very minimal tenderness. No real apprehension with palpation overthe abdomen now. Extremities: No extremity edema. Impression/Report/Plan Gastroenteritis appears to be resolving slowly. I did go ahead and do some labs and the CMP and the CBC are within normal limits. Plan: We will go ahead and clear her for work absence through this. With follow up, return to work on the 22 of May the next time she is scheduled. Naty Xie MD//[facility] #[id number] cc: Electronically Signed By: NATY XIE MD On: 05/20/2013 12:07 PM Source: [facility] FSHDICTAPHONESYS Document Id: [id number] MILL OPERATOR documented in this encounter Miscellaneous Notes Miscellaneous - Naty Xie M.D. - 2013 12:42 PM CST Ambulatory Depart Summary [address] [id number] Visit Information Name: RADHA STEELE [facility] Number: [id number] Visit Date: 2013 12:42:32 Attending Provider: NATY XIE MD Primary Care Provider: PCP, ELSEWHERE RADHA STEELE has been given the following list of medications: Your Medications It is important to take your medications as directed. Use a pill box or chart to help remind you to take your medications. Please let your doctor or nurse know if you have problems taking your medications. Medication/Strength How to Take Indications/Special Instructions/Comments/Notes for Patient Medication Changes/Routing No Medications found Stop Taking the Following Medications: Medication list as of 05-19-13 12:42 Attention: If you have any medications at home that are not on this list, DO NOT take them until youcontact your provider for clarification. Give a copy of your medication list to your primary care provider. Update your medication list any time medications or doses are changed and carry your medication list at all times in case of emergency. Additional Information: Source: [facility] POWERCHART Document Id: [id number] MILL OPERATOR Miscellaneous - Naty Xie M.D. - 2013 12:42 PM CST Ambulatory [place] [address] Visit Information Name: RADHA STEELE [facility] Number: [id number] Current Date: 2013 12:42:33 Physicians Attending Provider: NATY XIE MD Primary Care Provider: PCP, RADHA MATHEW has been given the following list of [...] Take Indications/Special Instructions/Comments/Notes for Patient Medication Changes/Routing No Medications found Stop Taking the Following Medications: Medication list as of 05-19-13 12:42 Attention: If you have any medications at home that are not on this list, DO NOT take them until youcontact your provider for clarification. Give a copy of your medication list to your primary care provider. Update your medication list any time medications or doses are changed and carry your medication list at all times in case of emergency. Your Allergies & Intolerances Substance Reaction Symptoms Category Comments No Known Allergies Drug Your Problem List Problem Status Onset Comments No Chronic Problems Active Your Upcoming Appointments Date Time Location Reason Provider No Appointments found Attention: Contact your local Clinic if further appointment detail needed. Your Goals/Additional instructions: Source: [facility] POWERCHART Document Id: [id number] MILL OPERATOR Miscellaneous - Radha Herrera LEmekaP.N. - 2013 9:20 AM CST Adult Director Food And Beverage Intake/History Adult Director Food And Beverage Intake/History Entered On: 2013 9:25 PULP MILL OPERATOR Performed On: 2013 9:20 PULP MILL OPERATOR by RADHA HERRERA CONSULTING TECHNICAL MANAGER Intake Chief Complaint : Recheck Abdomen & weakness - some better Onset of Symptoms : 7 days Ambulatory Intake Additional Information : Need note for work Temperature Core : 36.9 DegC(Converted to: 98.4 DegF) Peripheral Pulse Rate : 92 /min Respiratory Rate : 18 /min Heart Rhythm : Regular Systolic Blood Pressure : 108 mmHg Diastolic Blood Pressure : 72 mmHg NIBP Mean : 84 mmHg BP Location : Right upper extremity Blood Pressure Cuff Size : Large Actual Weight : 103.3 kg(Converted to: 227 lb 12 oz) Dosing Weight Clinic : 103.3 kg RADHA HERRERA LPN - 2013 9:20 PULP MILL OPERATOR General Info Information Given By : Patient Languages : Bulgarian RADHA HERRERA LPN - 2013 9:20 PULP MILL OPERATOR Subjective Pain Symptoms : Yes RADHA HERRERA LPN - 2013 9:20 PULP MILL OPERATOR Pain Pain Assessment Grid Pain 1 Location : Abdomen Intensity : 4 RADHA HERRERA LPN - 2013 9:20 PULP MILL OPERATOR Dependent Habits Tobacco Use/Currently Using : Yes Exposure to Tobacco Smoke : Patient smokes Smoking Status : Current every day smoker Alcohol Use : Yes RADHA HERRERA LPN - 2013 9:20 PULP MILL OPERATOR [facility] P[facility] Document Id: [id number] PULP MILL OPERATOR!31 MILL OPERATOR documented in this encounter Plan of Treatment Not on filedocumented as of this encounter Procedures Procedure Name Priority Date/Time Associated Comments Diagnosis URINALYSIS, ROUTINE Routine 2013 10:24 Resu lts for this AM PULP MILL OPERATOR procedure are i n the results section. URINE MICROSCOPIC Routine 2013 10:24 Result s for this AM PULP MILL OPERATOR procedure are i n the results section. CBC WITH DIFFERENTIAL, Routine 2013 10:24 R esults for this B AM PULP MILL OPERATOR procedure are i n the results section. COMPREHENSIVE Routine 2013 10:24 Results fo r this METABOLIC PANEL, S/P AM PULP MILL OPERATOR procedu re are in the results section. documented in this encounter Results CBC with Differential (2013 10:24 AM PULP MILL OPERATOR) P athologist Signature Leukocytes 5.2 3.5 - 10.5 MISYS X109L [place] Erythrocytes 4.84 3.90 - MISYS 5.03 MUL [place] Hemoglobin 14.6 12.0 - MISYS 15.5 GDL [place] Hematocrit 42.4 34.9 - MISYS 44.5 [place] MCV 87.6 81.6 - MIS[facility] 98.3 FL [place] HX RDW 12.8 11.9 - MISYS 15.5 [place] Platelet Count 238 150 - 450 [facility] X109L [place] Absolute 3.2 1.7 - 7.0 MISYS Neutrophils X109L [place] Lymphocytes 1.4 0.9 - 2.9 MIS[facility] X109L [place] Monocytes 0.4 0.3 - 0.9 M[facility] X109L [place] Eosinophils 0.2 0.1 - 0.5 MIS[facility] X109L [place] Absolute Basophil 0.0 0.0 - 0.1 M[facility] X109L [place] Comment: PERFORMED AT [facility] , [address] [facility] [id number] Specimen (Source) Anatomical Collection Method Collection Time Re ceived Time Location / / Volume Laterality Blood 2013 10:24 AM PULP MILL OPERATOR Naty Xie M.D. LAB BLOOD ADD-ON Performing Organization Address City/State/ZIP Code Phon e Number [place] [address] [place] [address] [place] (ABNORMAL) Urine Microscopic (2013 10:24 AM PULP MILL OPERATOR) [facility] Method Time Signature HXUr WBC <6 LT6 HPF [place] [place] Red Blood Cell <3 LT3 HPF [place] Clump, Urine [place] HXUr 4+ (A) NS [facility] Epithelial [place] HXUr Bacteria SOME (A) NS [facility] [place] HX Ur Casts NOT SEEN 0 - 3 LPF [place] [place] Crystals NOT SEEN NS [facility] [place] Comment SPECIMEN [facility] UNSUITABLE FOR [place] CULTURE Comment: PERFORMED AT [facility] , [address] [place] [id number] Specimen Anatomical Collection Method Collection Time Receive d Time (Source) Location / / Volume Laterality Urine 2013 10:24 2013 AM PULP MILL OPERATOR 10:49 AM PULP MILL OPERATOR Naty Xie M.D. LAB URINE ORDERABLES Performing Organization Address [facility] Phon e Number [place] [address] [place] [address] [place] (ABNORMAL) Urinalysis, Routine (2013 10:24 AM PULP MILL OPERATOR) [facility] Method Time Signature HXUA Spec Type CLEAN VOID [place] Appearance YELLOW [facility] [place] Comment: HAZY Glucose NEGATIVE NEG MGDL [place] HXBILIRUBIN NEGATIVE NEG [place] [place] Ketones, QL(U) NEGATIVE NEG MGDL [facility] [place] Specific [place], POCT, U 1.020 1.005 - 1.03 M ISYS [place] HXBLOOD TRACE (A) NEG [facility] [place] pH, POCT, Urine 6.0 5.0 - 8.0 [facility] [place] Protein, Ur, Dip NEGATIVE NEG MGDL MISYS [place] E Urobilinogen 0.2 0.1 - 1.0 EUDL [place] [place] HXNITRITE NEGATIVE NEG [facility] [place] Leukocyte Esterase NEGATIVE NEG MISYS LA[place] SSE Specimen (Source) Anatomical Collection Method Collection Time Re ceived Time Location / / Volume Laterality Urine 2013 10:24 AM PULP MILL OPERATOR Naty Xie M.D. LAB URINE ORDERABLES Performing Organization Address [facility] Phon e Number [place] [address] [place] [address] [place] [place] CMP (Comprehensive Metabolic Panel) (2013 10:24 AM PULP MILL OPERATOR) Component Value Ref Test Analysis Performed At [facility] Range Method Time Signature Sodium, S 138 136 - MISYS 145 MML [place] Potassium, S 4.0 3.6 - MISYS 5.2 MML [place] Chloride, S 102 98 - 107 M[facility] MMOLL [place] HXTOTAL CO2 26 21 - 32 [facility] MMOLL [place] Glucose 88 70 - 139 MISYS MGDL [place] BUN (Blood Urea 8 6 - 20 MISYS Nitrogen), S MGDL [place] Creatinine 0.6 0.5 - MISYS 1.0 MGDL [place] Calcium, Total, S 10.2 8.6 - MISYS 10.2 [place] MGDL Alkaline 47 35 - 104 MISYS Phosphatase, S UNITL [place] Aspartate 15 <32 MISYS Aminotransferase UNITL [place] (AST), S Alanine 13 <33 MISYS Amniotransferase, LD UNITL [place] Bilirubin, Total, S 0.3 <1.0 MISYS MGDL [place] Total Protein, S 7.3 6.6 - MISYS 8.7 GMDL [place] Albumin, S 4.7 4.0 - MISYS 5.0 GMDL [place] HXeGFR (MDRD) >80 >80 MISYS [id number] [place] M2 eGFR Black/ >80 >80 MISYS Sudanese [id number] [place] M2 HXEGFR Note AVERAGE GFR MIS[facility] FOR 18-29 [place] YEARS OLD = 116 ML/MIN/1.73 M2 Comment: CHRONIC KIDNEY DISEASE <60 ML/MIN/1.73M2 KIDNEY FAILURE <15 ML/MIN/1.73M2 THIS ESTIMATED GFR IS CALCULATED FOR JUDIT LTS, 18 AND OLDER, WITH STABLE KIDNEY FUNCTION USING THE RECALIBRATED CREATININE VALUE AND ABBREVIATED MDRD FORMULA. ??PLEASE DIRECT QUESTIONS TO [email or web address] THE GRF RESULT SHOULD NOT BE USED FOR RE NAL DRUG DOSING ADJUSTMENTS ACCORDING TO THE NATIONAL DISEASE EDUCATION PROGRAM. PERFORMED AT [facility], [facility] [address] Specimen (Source) Anatomical Collection Method Collection Time Re ceived Time Location / / Volume Laterality Blood 2013 10:24 AM PULP MILL OPERATOR Naty Xie M.D. LAB BLOOD ADD-ON Performing Organization Address City/State/ZIP Code Phon e Number [facility] [place] [address] [place] [address] M[facility] [place] documented in this encounter Visit Diagnoses Not on filedocumented in this encounter
--- OUTSIDE RECORDS SUMMARY | 2022-02-03 23:58 | XMS_ITS | Encounter Summary ---
:1985 Author Organization [facility] Address [address] [place] [address] Care Team Providers Name Role Phone Unavailable Primary Care Provider Unavailable Encounter Details Date Type Department Care Team Description 11/17/2004 Hospital Encounter HX [facility] Provider, Histor ical Social History Tobacco Use Types Packs/Day Years Used Date Smoking Tobacco: Never Assessed Sex Assigned at Date Recorded Not on file documented as of this encounter Plan of Treatment Not on filedocumented as of this encounter Visit Diagnoses Not on filedocumented in this encounter
--- OUTSIDE RECORDS SUMMARY | 2022-02-03 23:58 | XMS_ITS | Encounter Summary ---
:1985 Author Organization [facility] Address [address] [place] [address] Care Team Providers Name Role Phone Unavailable Primary Care Provider Unavailable Encounter Details Date Type Department Care Team Description 08/14/2004 - Hospital Encounter [facility] PT ProviderLaurie 09/15/2014 Social History Tobacco Use Types Packs/Day Years Used Date Smoking Tobacco: Never Assessed Sex Assigned at Date Recorded Not on file documented as of this encounter Plan of Treatment Not on filedocumented as of this encounter Visit Diagnoses Not on filedocumented in this encounter
--- OUTSIDE RECORDS SUMMARY | 2022-02-03 23:58 | XMS_ITS | Encounter Summary ---
:1985 Author Organization [facility] Address [address] [place] [address] Care Team Providers Name Role Phone Unavailable Primary Care Provider Unavailable Encounter Details Date Type Department Care Team Description 08/17/2004 Hospital Encounter HX [facility] Provider, Historical WOMENSCOUT Social History Tobacco Use Types Packs/Day Years Used Date Smoking Tobacco: Never Assessed Sex Assigned at Date Recorded Not on file documented as of this encounter Plan of Treatment Not on filedocumented as of this encounter Visit Diagnoses Not on filedocumented in this encounter
--- OUTSIDE RECORDS SUMMARY | 2022-02-03 23:58 | XMS_ITS | Encounter Summary ---
:1985 Author Organization [facility] Address [address] [place] [address] Care Team Providers Name Role Phone Unavailable Primary Care Provider Unavailable Encounter Details Date Type Department Care Team Description 10/01/2004 Hospital Encounter HX [facility] Provider, Histor ical Social History Tobacco Use Types Packs/Day Years Used Date Smoking Tobacco: Never Assessed Sex Assigned at Date Recorded Not on file documented as of this encounter Plan of Treatment Not on filedocumented as of this encounter Visit Diagnoses Not on filedocumented in this encounter
--- OUTSIDE RECORDS SUMMARY | 2022-02-03 23:58 | XMS_ITS | Encounter Summary ---
:1985 Author Organization [facility] Address [address] [place] [address] Care Team Providers Name Role Phone Unavailable Primary Care Provider Unavailable Encounter Details Date Type Department Care Team Description 05/25/2013 Hospital Encounter HX [facility] Naty Xie M.D. Social History Tobacco Use Types Packs/Day Years Used Date Smoking Tobacco: Never Assessed Sex Assigned at Date Recorded Not on file documented as of this encounter Last Filed Vital Signs Vital Sign Reading Time Taken Comments Blood Pressure 90/62 05/25/2013 8:08 AM FOOD HANDLER Pulse 70 05/25/2013 8:08 AM FOOD HANDLER Temperature - - Respiratory Rate 18 05/25/2013 8:08 AM FOOD HANDLER Oxygen Saturation - - Inhaled Oxygen Concentration - - Weight 106 kg (232 lb 12.9 oz) 05/25/2013 8:08 AM FOOD HANDLER Height - - Body Mass Index - - documented in this encounter Progress Notes Naty Xie M.D. - 05/25/2013 7:53 AM CST [id number] MED DATE: 05/25/2013 CHIEF COMPLAINT/REASON FOR VISIT A 28-year-old [id number] who returns with abdominal pain. HISTORY OF PRESENT ILLNESS It seems to be better. The fever has gone away. No nausea, no vomiting. She does have intermittent pain though that starts in the epigastrium and kind of radiates down right and left. She is not havingany diarrhea or distention. She has not changed her diet. She eats usually 1 or 2 times a day. She may skip meals, but she does snack. She has not altered her pattern of eating. She does not have pain that she notices with meals or when she skips meals as far as she knows. Does drink some pop. She didhave her gallbladder removed in the past. SYSTEMS REVIEW Otherwise negative. ALLERGIES None. MEDICATIONS None. SOCIAL HISTORY The patient does continue to smoke. VITAL SIGNS See EMR. PHYSICAL EXAMINATION No examination today. A total of 15 minutes required for counseling, review, management and consultation arrangements. IMPRESSION/REPORT/PLAN IMPRESSION: The patient continues to have abdominal pain, I suspect gastroesophageal reflux disease. PLAN: Trial of omeprazole. We will set up gastrointestinal consult. If symptoms resolve with the omeprazole, then would cancel that gastrointestinal consult. Naty Xie MD//[facility] #[id number] cc: Electronically Signed By: NATY XIE MD On: 05/27/2013 12:11 PM Source: [facility] FSHDICTAPHONESYS Document Id: [id number] HANDLER documented in this encounter Miscellaneous Notes Miscellaneous - Naty Xie M.D. - 05/25/2013 9:29 AM CST Ambulatory Patient Summary [address] [address] Visit Information Name: RADHA STEELE [facility] Number: [id number] Current Date: 05/25/2013 09:29:31 Physicians Attending Provider: NATY XIE MD Primary Care Provider: PCP, ELSEWHERE RADHA STEELE KING has been given the following list of [...] Take Indications/Special Instructions/Comments/Notes for Patient Medication Changes/Routing omeprazole (omeprazole 40 mg oral delayed release capsule) 1 cap, Oral, once a day New Routed to [address] [address] Stop Taking the Following Medications: Medication list as of 05-25-13 09:29 Attention: If you have any medications at [...] Upcoming Appointments Date Time Location Reason Provider 06/01/2013 15:45 [facility] n[facility], abdominal pain, ref [facility] Attention: Contact your local Clinic if further appointment detail needed. Your Goals/Additional instructions: Source: [facility] POWERCHART Document Id: [id number] HANDLER Miscellaneous - Naty Xie M.D. - 05/25/2013 9:29 AM CST Ambulatory [place] [address] Visit Information Name: RADHA STEELE [facility] Number: [id number] Visit Date: 05/25/2013 09:29:29 Attending Provider: NATY XIE MD Primary Care [...] Take Indications/Special Instructions/Comments/Notes for Patient Medication Changes/Routing omeprazole (omeprazole 40 mg oral delayed release capsule) 1 cap, Oral, once a day New Routed to [facility] , Stop Taking the Following Medications: Medication list as of 05-25-13 09:29 Attention: If you have any medications at home that are not on this list, DO NOT take them until youcontact your provider for clarification. Give a copy of your medication list to your primary care provider. Update your medication list any time medications or doses are changed and carry your medication list at all times in case of emergency. Additional Information: Source: [facility] POWERCHART Document Id: [id number] HANDLER Miscellaneous - Maria Luisa Rios L.P.N. 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 Medical Coding Specialist Intake/History Adult Medical Coding Specialist Intake/History Entered On: 05/25/2013 8:09 FOOD HANDLER Performed On: 05/25/2013 8:08 FOOD HANDLER by MARIA LUISA RIOS LPN Intake Chief Complaint : abd Pain Temperature Core : 36.6 DegC(Converted to: 97.9 DegF) Peripheral Pulse Rate : 70 /min Respiratory Rate : 18 /min Heart Rhythm : Regular Systolic Blood Pressure : 90 mmHg (LOW) Diastolic Blood Pressure : 62 mmHg NIBP Mean : 71 mmHg Blood Pressure Cuff Size : Regular Oxygen Therapy : Room air Actual Weight : 105.6 kg(Converted to: 232 lb 13 oz) Weight Source : Standing scale Dosing Weight Clinic : 105.6 kg MARIA LUISA RIOS LPN - 05/25/2013 8:08 FOOD HANDLER General Info Information Given By : Patient Preferred Communication Mode : Verbal, Written Languages : Icelandic MARIA LUISA ROIS LPN - 05/25/2013 8:08 FOOD HANDLER Subjective Pain Symptoms : Yes MARIA LUISA RIOS LPN - 05/25/2013 8:08 FOOD HANDLER Pain Pain Assessment Grid Pain 1 Location : Abdomen Intensity : 7 Time Pattern : Acute, Constant Onset : Gradual Quality : Aching Pain Radiation : Yes Aggravating Factors : Breathing, Movement Alleviating Factors : None Associated Symptoms : None Interventions : MD notified MARIA LUISA RIOS LPN - 05/25/2013 8:08 FOOD HANDLER Dependent Habits Tobacco Use/Currently Using : Yes Exposure to Tobacco Smoke : Patient smokes Smoking Status : Current every day smoker MARIA LUISA RIOS LPN - 05/25/2013 8:08 FOOD HANDLER Source: [facility] POWERCHART Document Id: [id number] FOOD HANDLER!38 HANDLER documented in this encounter Plan of Treatment Not on filedocumented as of this encounter Visit Diagnoses Not on filedocumented in this encounter
--- OUTSIDE RECORDS SUMMARY | 2022-02-03 23:58 | XMS_ITS | Encounter Summary ---
:1985 Author Organization [facility] Address [address] [place] [address] Care Team Providers Name Role Phone Unavailable Primary Care Provider Unavailable Encounter Details Date Type Department Care Team Description 09/11/2004 Hospital Encounter HX [facility] Provider, Historical WOMENSCOUT Social History Tobacco Use Types Packs/Day Years Used Date Smoking Tobacco: Never Assessed Sex Assigned at Date Recorded Not on file documented as of this encounter Plan of Treatment Not on filedocumented as of this encounter Visit Diagnoses Not on filedocumented in this encounter
--- OUTSIDE RECORDS SUMMARY | 2022-02-03 23:58 | XMS_ITS | Encounter Summary ---
:[address] [facility] Address [address] [place] [address] Care Team Providers Name Role Phone Unavailable Primary Care Provider Unavailable Encounter Details Date Type Department Care Team Description 08/13/2004 Hospital Encounter [facility] Provider, Historical WOMENSCOUT Social History Tobacco Use Types Packs/Day Years Used Date Smoking Tobacco: Never Assessed Sex Assigned at Date Recorded Not on file documented as of this encounter Plan of Treatment Not on filedocumented as of this encounter Visit Diagnoses Not on filedocumented in this encounter
--- OUTSIDE RECORDS SUMMARY | 2022-02-03 23:58 | XMS_ITS | Encounter Summary ---
:1985 Author Organization [facility] Address [address] [place] [address] Care Team Providers Name Role Phone Unavailable Primary Care Provider Unavailable Encounter Details Date Type Department Care Team Description 09/04/2004 Hospital Encounter HX [facility] Provider, Histor ical Social History Tobacco Use Types Packs/Day Years Used Date Smoking Tobacco: Never Assessed Sex Assigned at Date Recorded Not on file documented as of this encounter Plan of Treatment Not on filedocumented as of this encounter Visit Diagnoses Not on filedocumented in this encounter
--- OUTSIDE RECORDS SUMMARY | 2022-02-03 23:58 | XMS_ITS | Encounter Summary ---
:1985 Author Organization [facility] Address [address] [place] [address] Care Team Providers Name Role Phone Unavailable Primary Care Provider Unavailable Encounter Details Date Type Department Care Team Description 05/15/2013 Hospital Encounter HX [facility] Naty Xie M.D. Social History Tobacco Use Types Packs/Day Years Used Date Smoking Tobacco: Never Assessed Sex Assigned at Date Recorded Not on file documented as of this encounter Last Filed Vital Signs Vital Sign Reading Time Taken Comments Blood Pressure 112/51 05/15/2013 3:39 PM [employer] SERVIC[employer] Pulse 120 05/15/2013 3:39 PM WATER [employer] SERVIC[employer] Temperature - - Respiratory Rate 28 05/15/2013 3:39 PM W[employer] SERV[employer] Oxygen Saturation - - Inhaled Oxygen Concentration - - Weight 104 kg (228 lb 6.3 oz) 05/15/2013 3:39 PM [employer] Height - - Body Mass Index - - documented in this encounter Progress Notes Naty Xie M.D. - 05/15/2013 3:14 PM CST [id number] MED DATE: 05/15/2013 A 27-year-old with about 12 hours of abdominal discomfort with body aches, fever, first vomiting then diarrhea. No eating of anything tainted as far as she knows. Her appetite has been poor. She works at [employer], so she had to call in today and needs a note for work to clear her as does her . She has no dysuria symptoms. She is taking no medications. She has no known allergies. She ispretty healthy. Does smoke, some alcohol use as well. Systems Review Otherwise negative. Vital Signs See EMR. Physical Examination General: Patient is in no acute distress. Chest: Lungs: Sound clear. Cardiovascular: Regular rate and rhythm. Abdomen: Soft, diffusely tender. No guarding or apprehension however. Impression/Report/Plan Patient has gastroenteritis. Plan: BRAT diet, plenty of hydration. Avoid sweet, fluids, or drinks if symptoms persist until tomorrow, then I would like to see her back, also she is not ready to go back t o work by the , just 48 hours from now, then I would like to see her back as well. She was cleared for work for today the to . Naty Xie MD//batsheva #[id number] cc: Electronically Signed By: NATY XIE MD On: 05/17/2013 01:43 PM Source: [facility] Document Id: [id number] R PUMP SERVICER documented in this encounter Miscellaneous Notes Miscellaneous - Naty Xie M.D. - 05/15/2013 4:15 PM CST Ambulatory Patient Summary [place] [id number] Visit Information Name: RADHA STEELE [facility] Number: [id number] Current Date: 05/15/2013 16:15:18 Physicians Attending Provider: NATY XIE MD Primary [...] the Following Medications: Medication list as of 05-15-13 16:15 Attention: If you have any medications at [...] Problem List Problem Status Onset Comments No Problems found Your Upcoming Appointments Date Time Location Reason Provider No Appointments found Attention: Contact your local Clinic if further appointment detail needed. Your Goals/Additional instructions: [facility] Document Id: [id number] R PUMP SERVICER Olga - Naty Xie M.D. - 05/15/2013 4:15 PM CST [place] [address] Visit Information Name: RADHA STEELE [facility] Number: [id number] Visit Date: 05/15/2013 16:15:17 Attending Provider: NATY XIE MD Primary Care [...] the Following Medications: Medication list as of 05-15-13 16:15 Attention: If you have any medications at home that are not on this list, DO NOT take them until youcontact your provider for clarification. Give a copy of your medication list to your primary care provider. Update your medication list any time medications or doses are changed and carry your medication list at all times in case of emergency. Additional Information: Source: [employer] Document Id: [id number] R PUMP SERVICER Miscellaneous - Radha Herrera L.P.N. - 05/15/2013 3:39 PM CST Adult Compensation And Benefits Analyst Intake/History Adult Compensation And Benefits Analyst Intake/History Entered On: 05/15/2013 15:45 W[employer] SERVICER Performed On: 05/15/2013 15:39 WATER PUMP SERVICER by RADHA HERRERA LPN Intake Chief Complaint : abdominal discomfort, bodyaches, fever, diarrhea, vomiting since 0300 this am Temperature Core : 38.2 DegC(Converted to: 100.8 DegF) Peripheral Pulse Rate : 120 /min (HI) Respiratory Rate : 28 /min (HI) Heart Rhythm : Regular Systolic Blood Pressure : 112 mmHg Diastolic Blood Pressure : 51 mmHg NIBP Mean : 71 mmHg BP Location : Left upper extremity Blood Pressure Cuff Size : Large Actual Weight : 103.6 kg(Converted to: 228 lb 6 oz) Weight Source : Standing scale Dosing Weight Clinic : 103.6 kg RADHA HERRERA LPN - 05/15/2013 15:39 WATER [employer]MP SERVICER General Info Information Given By : Patient Languages : Sinhala RADHA HERRERA LPN - 05/15/2013 15:39 WATER [employer] SERVICER Subjective Pain Symptoms : Yes RADHA HERRERA LPN - 05/15/2013 15:39 W[employer] SERVICER Pain Pain Assessment Grid Pain 1 Location : Abdomen Intensity : 7 Time Pattern : Acute Onset : Sudden Duration : since this am Quality : Sharp Pain Radiation : No Aggravating Factors : None Alleviating Factors : None Associated Symptoms : Nausea, Vomiting, Other: fever Interventions : Other: drinking water RADHA HERRERA LPN - 05/15/2013 15:39 WATER PUMP SERVICER Dependent Habits Tobacco Use/Currently Using : Yes Exposure to Tobacco Smoke : Patient smokes Smoking Status : Current every day smoker Alcohol Use : Yes RADHA HERRERA LPN - 05/15/2013 15:39 WATER PUMP SERVICER Source: [facility] Document Id: [id number] WATER PUMP SERVICER!39 R PUMP SERVICER documented in this encounter Plan of Treatment Not on filedocumented as of this encounter Visit Diagnoses Not on filedocumented in this encounter
--- OUTSIDE RECORDS SUMMARY | 2022-02-03 23:58 | XMS_ITS | Encounter Summary ---
:[address] [facility] Address [address] [place] [address] Care Team Providers Name Role Phone Unavailable Primary Care Provider Unavailable Encounter Details Date Type Department Care Team Description 09/06/2013 Hospital Encounter HX [facility], M.D. [address] [place] [phone] (Wo rk) Social History Tobacco Use Types Packs/Day Years Used Date Smoking Tobacco: Never Assessed Sex Assigned at Date Recorded Not on file documented as of this encounter Last Filed Vital Signs Vital Sign Reading Time Taken Comments Blood Pressure 127/69 09/06/2013 8:36 PM CDT Pulse 101 09/06/2013 6:57 PM CDT Temperature - - Respiratory Rate 19 09/06/2013 8:36 PM CDT Oxygen Saturation - - Inhaled Oxygen Concentration - - Weight - - Height - - Body Mass Index - - documented in this encounter Discharge Summaries Monika Rutledge, REmekaN. - 09/06/2013 9:06 PM CDT ED Discharge Instructions [facility] [address] [facility] [place] [address] Name: SILVIA MAY Date of : 1985 12:00 AM Visit Date: 09/06/2013 6:[address] [facility] Number: [id number] Address: [address] [place] [id number] Primary Care Provider: PCP, ELSEWHERE IMPORTANT: [facility] in [place] would like to thank you for allowing us to assist youwith your healthcare needs. The following includes patient education materials and information regarding your injury/illness. Follow-Up Instructions: With: Address: When: ELSEWHERE PCP Within As Needed Comments: REST SLEEP WELL dRINK FLUIDS Return if getting worse follow in clinic or return to ER if not better tomorrow Your Upcoming Appointments: Date Time Location Reason Provider No Appointments found Patient Education Materials: [id number] DYSPNEA (Shortness of Breath) Shortness of Breath (also known as Dyspnea) is the sense that you can't catch your breath or can'tget enough air. Dyspnea can be caused by many different conditions such as: ?? Acute asthma attack ?? Worsening of emphysema (also called COPD) -- a lung disease that is caused by smoking ?? A mucus plug blocks a large air passage in the lung -- this can occur with emphysema or chronic bronchitis ?? Congestive Heart Failure (CHF) -- when a weak heart muscle allows excess fluid to collect in the lungs ?? Panic attacks, anxiety -- fear can cause rapid breathing (hyperventilation) ?? Pneumonia -- infection in the lung tissue ?? Exposure to toxic fumes or smoke ?? Pulmonary embolus (blood clot to the lung) Based on your visit today, the exact cause of your shortness of breath is not certain. Your tests donot show any of the serious causes of dyspnea. Sometimes, further testing is needed to find out if aserious problem exists. Therefore, it is important for you to watch for any new symptoms or worsening of your condition and follow up with your doctor as directed. HOME CARE: ?? When your symptoms are better, resume your usual activities. ?? If you smoke, you need to stop. Join a stop-smoking program or ask your doctor for help. FOLLOW UP with your doctor or as advised by our staff. [NOTE: If you had an X-ray or EKG (cardiogram), it will be reviewed by a specialist. You will be notified of any new findings that may affect your care.] GET PROMPT MEDICAL ATTENTION if any of the following occur: ?? Increasing shortness of breath or wheezing ?? Redness, pain or swelling in one leg ?? Swelling in both legs or ankles ?? Unexpected weight gain ?? Chest, arm, shoulder, neck or upper back pain ?? Dizziness, weakness or fainting ?? Palpitations (the sense that your heart is fluttering, beating fast or hard) ?? Fever of 100.4??F (38??C) or higher, or as directed by your healthcare provider Cough with dark colored or bloody sputum (mucus) ?? [id number] Lennie Swain, [address] [place] [address], [place] [address]. All rights reserved. This information is not intended as a substitute for professional medical care. Always follow your healthcare professional's instructions. ED Tests and Procedures: Order Status Automated Diff-5 Part Completed Oxygen - ED Ordered EKG-Lab Completed XR Chest 2 Views Completed DDimer Completed Basic Metabolic Panel Completed CBC (includes Auto Differential) Completed Discharge Prescriptions & Home Medications: Medication/Strength Dose Route Frequency Indications/Special Instructions/Comments/Notes omeprazole (omeprazole 40 mg oral delayed release capsule) 40 mg Oral once a day Comment: Attention: [...] about how to take those medications. SILVIA MAY or juan joseee has reviewed the home medications you have [...] Party/Relationship Date Time Provider Signature Date Time Medication Reconciliation: Reconciliation is a process of identifying the most accurate list of all medications a patient is taking - including name, dosage, frequency, and route - and using this list to provide to the patient information about how to take those medications. SILVIA MAY or becky has reviewed the home medications [...] Date Time Provider Signature Date Time Source: Hal[place] POWERCHART Document Id: [id number] Monika Rutledge R.N. - 09/06/2013 9:06 PM CDT ED Depart Summary [facility] Emergency Department / Urgent Care Clinical Discharge Summary PERSON INFORMATION Name SILVIA MAY Age 28 Years 1985 12:00 AM Sex Female Language Gibraltarian PCP PCP, ELSEWHERE Marital Status Single Visit Id Visit Reason SOB - Shortness of breath; SOB - Shortness of breath; SOB Specialty Enc Type Emergency Med Service Emergency Medicine Referred by Track Group [facility] ED/UC Discharge 09/06/2013 9:06 PM Tracking Id [id number] Checkout 09/06/2013 9:06 PM Checkin 09/06/2013 6:48 PM Acuity 3 -Urgent Dispo Type * Discharged to Home or Self Care Arrival 09/06/2013 6:48 PM Reg Status Complete LOS 000 02:18 Address: [address] [place] [address] Comment: PROVIDER INFORMATION Provider Role Provider Contact Time DEVI RAZA RN ED Nurse 09/06/13 18:57 TIMBO JUAREZ ED Paving Crew Foreman 09/06/13 18:57 LANE SHI MD ED Provider 09/06/13 19:11 DIAGNOSIS Comment: PATIENT EDUCATION INFORMATION Instructions: DYSPNEA Follow up: With: Address: When: ELSEWHERE PCP Within As Needed Comments: REST SLEEP WELL dRINK FLUIDS Return if getting worse follow in clinic or return to ER if not better tomorrow Source: [facility] [place] Document Id: [id number] documented in this encounter ED Notes Monika Rutledge, R.N. - 09/06/2013 9:05 PM CDT ED Pain Assessment ED Pain Assessment Entered On: 09/06/2013 21:05 CDT Performed On: 09/06/2013 21:05 CDT by MONIKA RUTLEDGE RN Pain Assessment Pain Symptoms : No MONIKA RUTLEDGE RN - 09/06/2013 21:05 CDT Source: [facility] [place] Document Id: [id number] CDT!3 Monika Rutledge R.N. - 09/06/2013 9:05 PM CDT ED Disposition Summary ED Disposition Summary Entered On: 09/06/2013 21:05 CDT Performed On: 09/06/2013 21:05 CDT by MONIKA RUTLEDGE RN ED Disposition Summary Accompanied By : Alone Mode of Discharge : Ambulatory Transportation : Private vehicle Discharge From ED With : Home Med List Printed Discharge Instructions Given to Patient : Yes Patient Status at Discharge from ED : Improved MONIKA RUTLEGDE RN - 09/06/2013 21:05 CDT Source: [place] Document Id: [id number] CDT!8 Devi Raza R.N. - 09/06/2013 8:39 PM CDT ED Nurse Reassess ED Nurse Reassess Entered On: 09/06/2013 20:40 CDT Performed On: 09/06/2013 20:39 CDT by DEVI RAZA RN Pain Assessment Pain Symptoms : No DEVI RAZA RN - 09/06/2013 20:39 CDT Resp Reassess Respiratory Patient Stated Symptoms : Shortness of breath Distress : None Airway : Patent Respiratory Pattern : Regular Respirations : Unlabored Cough : None DEVI RAZA RN - 09/06/2013 20:39 CDT Neuro Reassess Last Well Time Known : Not applicable Orientation : Oriented x 3 Characteristics of Speech : Clear Level of Consciousness : Alert DEVI RAZA RN - 09/06/2013 20:39 CDT Source: [place] Document Id: [id number] CDT!15 Lane Shi M.D. - 09/06/2013 7:27 PM CDT SOB - Shortness of breath Patient: SILVIA MAY Age: 28 years Sex: Female : 1985 Author: LNAE SHI MD Attachments: None Basic Information Additional information: Chief Complaint from Nursing Triage Note : Chief Complaint Description 09/06/2013 18:52 CDT Chief Complaint Description pt arrives c/o acute SOB onset today. Reports cant catch breath, lots of yawning and deep breathing. Pt appears diaphoretic and anxious at triage. . History of Present Illness The patient presents with difficulty breathing and yawning. The onset was just prior to arrival. Thecourse/duration of symptoms is: Degree at onset moderate. Degree at present moderate. The Exacerbating factors is none. The Relieving factors is none. Risk factors consist of none. Prior episodes: none. Therapy today: none. Associated symptoms: denies chest pain, denies fever, denies chills, denies cough, denies nausea, denies vomiting, denies abdominal pain, denies back pain, denies weight gain and denies hemoptysis. pt feeling sob today. says she feels like she is not able to get deep breath. she continues to yawn. denies any chest pain,no cough or cold. no fever. no nauea or vomiting. she is a smoker. not on control pills.. Review of Systems Constitutional symptoms: Negative except [...] recorded.. Surgical history: Other Manually Assisted Delivery (ICD-9-CM 73.59) in the week of 10/03/2004 at 19 Years. Comments: 04/15/2010 19:22 - CARMEN MORALES Hx: 73.59 - 03/21/2013 17:41 - Contributor source changed to PowerChart. Other Artificial Rupture of Membranes (ICD-9-CM 73.09) in the week of 10/03/2004 at 19 Years. Comments: 04/15/2010 19:22 - CARMEN MORALES Hx: 73.09 - 03/21/2013 17:41 - Contributor source changed to PowerChart. Episiotomy (ICD-9-CM 73.6) in the week of 10/03/2004 at 19 Years. Comments: 04/15/2010 19:22 - CARMEN MORALES Hx: 73.6 - 03/21/2013 17:41 - Contributor source changed to PowerChart. Repair of Other Current Obstetric Laceration (ICD-9-CM 75.69) in the week of 10/03/2004 at 19 Years. Comments: 04/15/2010 19:22 - CARMEN MORALES Hx: 75.69 - 03/21/2013 17:41 - Contributor source changed to PowerChart. Cytopathology, slides, cervical or vaginal (the [place] System); manual screening under physician supervision (CPT4 21445) in the week of 03/10/2004 at 18 Years. Comments: 04/18/2010 21:45 - CARMEN MORALES Hx: [id number] - LAB-CYTOPATH, SM,D/V,TDS<3SM TECH 03/21/2013 17:41 - Contributor source changed to PowerChart.. Physical Examination Vital Signs: Vital Signs 09/06/2013 18:57 CDT Temperature Core 37.4 DegC Peripheral Pulse Rate 101 /min HI Respiratory Rate 20 /min SpO2 100 % Systolic Blood Pressure 102 mmHg Diastolic Blood Pressure 89 mmHg 09/06/2013 18:52 CDT Peripheral Pulse Rate 119 /min HI SpO2 100 % , SpO2 09/06/2013 18:57 CDT SpO2 100 % 09/06/2013 18:52 CDT SpO2 100 % . General: Alert, no acute distress and anxious. Skin: Warm. Head: Normocephalic. Neck: Supple. Cardiovascular: Regular rate and rhythm. Respiratory: Lungs are clear to auscultation. Chest wall: No tenderness. Back: Nontender and Normal range of motion. Gastrointestinal: Soft and Nontender. Neurological: Alert and oriented to person, place, time, and situation and No focal neurological deficit observed. Psychiatric: Cooperative. Medical Decision Making Differential Diagnosis:Pneumonia, bronchitis, pulmonary embolism, anxiety. Documents reviewed:Emergency department nurses' notes. OrdersLaunch Orders Pharmacy: albuterol 2.5 mg/3 mL neb (Order Processing): 2.5 mg, NEB, Once. baker:Normal sinus rhythm. Electrocardiogram:Rate 99, normal sinus rhythm. Results review:Lab results : Lab View 09/06/2013 19:30 CDT Hgb 14.0 g/dL Hct 41.6 % WBC 7.2 x10(9)/L RBC 4.57 x10(12)/L MCV 91.0 fL RDW 13.0 % Platelet 243 x10(9)/L Neutro % 54 % NA Lymph % 33 % NA [place] % 7 % NA Eos % 5 % NA Baso % 1 % NA Neutro Absolute 3.92 10(9)/L Lymph Absolute 2.41 x10(9)/L [place] Absolute 0.49 x10(9)/L Eos Absolute 0.33 x10(9)/L Baso Absolute 0.08 x10(9)/L D-Dimer 0.28 mcg/mL FEU Sodium Lvl 138 mmol/L Potassium Lvl 4.0 mmol/L Chloride 103 mmol/L CO2 24 mmol/L AGAP 15 mmol/L Glucose Lvl 91 mg/dL Creatinine 0.6 mg/dL EGFR (MDRD) >60 mL/min/1.73m2 EGFR (MDRD) >60 mL/min/1.73m2 BUN 16 mg/dL Calcium Lvl 9.3 mg/dL . Chest X-Ray:No acute disease process. Notes:little strange. everything looks good. she is not hypoxic. will observe and have her return ifgetting worse . Impression and Plan Diagnosis SOB EXCESSIVE YAWNING Plan Condition: Stable. Disposition: Discharged: to home. Patient was given the following educational materials: DYSPNEA. Follow up with: ELSEWHERE PCP Within As Needed REST SLEEP WELL dRINK FLUIDS Return if getting worse follow in clinic or return to ER if not better tomorrow. Counseled: Patient, Regarding diagnosis, Regarding diagnostic results, Regarding treatment plan, Regarding prescription, Patient indicated understanding of instructions. Electronically Signed By: LANE SHI MD On: 09/06/2013 11:15 PM Modified by and Electronically Signed by: LANE SHI MD On: 09/06/2013 08:19 PM Source: [facility] POWERCHART Document Id: [id number]} Franca Brito R.N. - 09/06/2013 6:52 PM CDT ED Triage Assessment Document Has Been Updated ED Triage Assessment Entered On: 09/06/2013 19:04 CDT Performed On: 09/06/2013 18:52 CDT by FRANCA BRITO RN Reason For Visit (As Of: 09/06/2013 19:04:51 CDT) Problems(Active) No Chronic Problems (Cerner :NKP ) Name of Problem: No Chronic Problems ; Recorder: NATY XIE MD; Confirmation: Confirmed ; Classification: Medical ; Code: NKP ; Last Updated: 05/15/2013 16:30 FINE ARTIST; Life Cycle Date: 05/15/2013 ; Life Cycle Status: Active ; Vocabulary: Cerner Diagnoses(Active) SOB - Shortness of breath Date: 09/06/2013 ; Diagnosis Type: Reason For Visit ; Confirmation: Complaint of ; Clinical Dx: SOB - Shortness of breath ; Classification: Medical ; Clinical Service: Non-Specified ; Code: PNED ; Probability: 0 ; Diagnosis Code: [id number] Triage Chief Complaint Description : pt arrives c/o acute SOB onset today. Reports cant catch breath, lots of yawning and deep breathing. Pt appears diaphoretic and anxious at triage. Information Given By : Patient Accompanied By : Alone Mode of Arrival ED : Private vehicle Track : Medical Languages : Gibraltarian Patient Informed of Triage Location : Emergency department Vital Signs Assessed : Yes Treatments Prior to Arrival : None FRANCA BRITO RN - 09/06/2013 18:52 CDT Vital Signs Peripheral Pulse Rate : 119 /min (HI) SpO2 : 100 % Oxygen Therapy : Room air FRANCA BRITO RN - 09/06/2013 18:52 CDT Pain Assessment Pain Symptoms : No FRANCA BRITO RN - 09/06/2013 18:52 CDT DENNY DENNY Level 1 : No DENNY Level 2 : No DENNY Level 3 : Many Vital Signs DENNY : No TRAEMABLE FRANCA RN - 09/06/2013 18:52 CDT DCP GENERIC CODE Tracking Acuity : 3 -Urgent Tracking Group : [facility] ED/ DARYL FRANCA RN - 09/06/2013 18:52 CDT Source: [facility] [place] Document Id: [id number] CDT!25 Devi Raza R.N. - 09/06/2013 6:55 AM CDT ED Primary Assessment Document Has Been Updated ED Primary Assessment Entered On: 09/06/2013 19:32 CDT Performed On: 09/06/2013 6:55 CDT by DEVI RAZA RN Reason For Visit (As Of: 09/06/2013 19:32:07 CDT) Problems(Active) No Chronic Problems (Cerner :NKP ) Name of Problem: No Chronic Problems ; Recorder: NATY XIE MD; Confirmation: Confirmed ; Classification: Medical ; Code: NKP ; Last Updated: 05/15/2013 16:30 FINE ARTIST; Life Cycle Date: 05/15/2013 ; Life Cycle Status: Active ; Vocabulary: Cerner Diagnoses(Active) SOB - Shortness of breath Date: 09/06/2013 ; Diagnosis Type: Reason For Visit ; Confirmation: Complaint of ; Clinical Dx: SOB - Shortness of breath ; Classification: Medical ; Clinical Service: Non-Specified ; Code: PNED ; Probability: 0 ; Diagnosis Code: [id number] SOB - Shortness of breath Date: 09/06/2013 ; Diagnosis Type: Reason For Visit ; Confirmation: Confirmed ; Clinical Dx: SOB - Shortness of breath ; Classification: Medical ; Clinical Service: Emergency medicine ; Code: PNED ; Probability: 0 ; Diagnosis Code: [id number] Triage Chief Complaint Description : Pt states she feels sob. No audible wheezing. Lung sounds are slight crackles in lower lobes. Pt denies cough or feeling ill recently. No temp. She is tachypneic and tachycardic. Pt is a smoker. Has had anxiety in the past but has not been diagnosed. Mode of Arrival ED : Private vehicle Track : Medical Languages : Gibraltarian Treatments Prior to Arrival : None DEVI RAZA RN - 09/06/2013 19:25 CDT Pain Assessment Pain Symptoms : No DEVI RAZA RN - 09/06/2013 19:25 CDT ED Physician Notification Time ED Physician Notification Time : 09/06/2013 6:55 CDT DEVI RAZA RN - 09/06/2013 19:25 CDT Source: [place] Document Id: [id number] CDT!11 documented in this encounter Miscellaneous Notes Miscellaneous - Monika Rutledge R.N. - 09/06/2013 9:05 PM CDT Valuables/Belongings Valuables/Belongings Entered On: 09/06/2013 21:06 CDT Performed On: 09/06/2013 21:05 CDT by MONIKA RUTLEDGE RN Valuables/Belongings Belongings Sent Home With : patient Home Medication Disposition : None brought in with patient MONIKA RUTLEDGE RN - 09/06/2013 21:05 CDT Source: [place] Document Id: [id number] CDT!4 Miscellaneous - Monika Rutledge R.N. - 09/06/2013 6:48 PM CDT Facility Charge Ticket 2.0 11.0 DX Facility Charge Ticket 2.0 11.0 DX Entered On: 09/06/2013 21:06 CDT Performed On: 09/06/2013 18:48 CDT by MONIKA RUTLEDGE RN Facility Charge Ticket 2.0 11.0 DX ED Other Charges : Standard ED Encounter TVL Level Translated RTF : SOB - Shortness of breath, SOB - Shortness of breath TVL:5 TVL Level for Facility Charge Ticket : Level 5 Arrival Mode Calc : 1 Mode of Arrival ED : Private vehicle [place] Mode of Arrival Interpreted : Standard [place] Process Management : None Order Management RTF : Laboratory EKG-Lab,09/06/13 19:14,LANE SHI MD Completed DDimer,09/06/13 19:14,LANE SHI MD Completed Basic Metabolic Panel,09/06/13 19:14,LANE SHI MD Completed CBC (includes Auto Differential),09/06/13 19:14,LANE SHI MD Completed Automated Diff-5 Part,09/06/13 19:35,LANE SHI MD Completed Xray XR Chest 2 Views,09/06/13 19:14,LANE SHI MD Completed EKG / Respiratory / Ancillary Oxygen - ED,09/06/13 19:14,LANE SHI MD Ordered [place] Order Management : EKG, RT, Ancillary Services, Lab tests, Xray - plain films 30 Minutes Critical Care : No Nursing Notes RTF : Triage Forms ED Triage Assessment,09/06/13 18:52,FRANCA BRITO RN Nursing Notes ED Primary Assessment,09/06/13 06:55,DEVI RAZA TRANSFER KNITTER Nurse Reassess,09/06/13 20:39,DEVI RAZA RN ED Pain Assessment,09/06/13 21:05,MONIKA RUTLEDGE RN Disposition : Discharge Disposition RTF : discharge Treatments Prior to Arrival : None MONIKA RUTLEDGE RN - 09/06/2013 21:06 CDT Source: [facility] POWERCHART Document Id: [id number] CDT!16 Miscellaneous - Catalina Palomo [facility] - 09/06/2013 6:48 PM CDT Facility Charge Ticket 2.0 11.0 DX Facility Charge Ticket 2.0 11.0 DX Entered On: 09/12/2013 11:22 CDT Performed On: 09/06/2013 18:48 CDT by CATALINA PALOMO Facility Charge Ticket 2.0 11.0 DX ED Other Charges : Standard ED Encounter TVL Level Translated RTF : SOB - Shortness of breath, SOB - Shortness of breath TVL:5 TVL Level for Facility Charge Ticket : Level 5 Arrival Mode Calc : 1 Mode of Arrival ED : Private vehicle [place] Mode of Arrival Interpreted : Standard [place] Process Management : None Order Management RTF : Laboratory EKG-Lab,09/06/13 19:14,LANE SHI MD Completed DDimer,09/06/13 19:14,LANE SHI MD Completed Basic Metabolic Panel,09/06/13 19:14,LANE SHI MD Completed CBC (includes Auto Differential),09/06/13 19:14,LANE SHI MD Completed Automated Diff-5 Part,09/06/13 19:35,LANE SHI MD Completed Xray XR Chest 2 Views,09/06/13 19:14,LANE SHI MD Completed EKG / Respiratory / Ancillary Oxygen - ED,09/06/13 19:14,LANE SHI MD Discontinued [place] Order Management : EKG, RT, Ancillary Services, Lab tests, Xray - plain films 30 Minutes Critical Care : No Nursing Notes RTF : Triage Forms ED Triage Assessment,09/06/13 18:52,FRANCA BRITO RN Nursing Notes ED Primary Assessment,09/06/13 06:55,DEVI RAZA RN ED Nurse Reassess,09/06/13 20:39,DEVI RAZA RN ED Pain Assessment,09/06/13 21:05,MONIKA RUTLEDGE RN [place] Nursing Assessment : Triage and 3-5 nursing assessments [facility]x Disposition : Discharge Disposition RTF : discharge [place] Total Points with Diagnosis Control : 15 [place] Visit Level : 52477 Level 5 Treatments Prior to Arrival : None CATALINA PALOMO - 09/12/2013 11:22 CDT Source: [facility] POWERCHART Document Id: [id number] CDT!19 documented in this encounter Plan of Treatment Not on filedocumented as of this encounter Procedures Procedure Name Priority Date/Time Associated Diagnosis Comme nts DX CHEST AP OR PA Routine 09/06/2013 8:35 PM Resu lts for this AND LATERAL 2 VIEWS CDT procedur e are in the results section. AUTOMATED Routine 09/06/2013 7:30 PM Results f or this DIFFERENTIAL, B CDT procedure ar e in the results section. D-DIMER, P Routine 09/06/2013 7:30 PM Results f or this CDT procedure are i n the results section. CBC WITH Routine 09/06/2013 7:30 PM Results f or this DIFFERENTIAL, B CDT procedure ar e in the results section. BASIC METABOLIC Routine 09/06/2013 7:30 PM Result s for this PANEL, S/P CDT procedure are i n the results section. documented in this encounter Results DX Chest AP or PA and Lateral 2 Views (09/06/2013 8:35 PM CDT) Anatomical Region Laterality Modality Chest N/A Radiographic Imaging Specimen (Source) Anatomical Collection Method Collection Time Re ceived Time Location / / Volume Laterality 09/06/2013 8:35 PM CDT Impressions 09/06/2013 7:49 PM CDT ??No acute findings. Narrative 09/06/2013 7:49 PM CDT EXAM: ??XR Chest 2 Views AGE: ??28 years old. GENDER: ??Female. INDICATION: ??sob. COMPARISON: ??None. FINDINGS: ??No focal areas of consolidat ion. No pneumothorax. Normal appearance of the heart, jessica and mediastinal structures. Chest otherwise negative for acute findi ngs. Procedure Note Justyn Mares M.D. / Provider, Joao murillo M.D. - 09/11/2016 EXAM: XR Chest 2 Views AGE: [age] years old. GENDER: Female. INDICATION: sob. COMPARISON: None. FINDINGS: No focal areas of consolidatio n. No pneumothorax. Normal appearance of the heart, jessica and mediastinal structures. Chest otherwise negative for acute findi ngs. IMPRESSION: No acute findings. Kimi Meredith R.TEmeka(R)(CT), R.T.(R) IMG DIAGNOSTIC PATRICK GING PROCEDURES Automated Differential (09/06/2013 7:30 PM CDT) P athologist Signature Absolute 3.92 1.70 - POWERCHART Neutrophils 7.00 109L Lymphocytes 2.41 0.90 - POWERCHART 2.90 X109L Monocytes 0.49 0.30 - POWERCHART 0.90 X109L Eosinophils 0.33 0.05 - POWERCHART 0.50 X109L Absolute 0.08 0.00 - POWERCHART Basophil 0.30 X109L Neutro % 54 POWERCHART Lymphocytes % 33 POWERCHART HX [place] % 7 POWERCHART HX Eos % 5 POWERCHART HX Baso % 1 POWERCHART Specimen Anatomical Collection Method Collection Time Receive d Time (Source) Location / / Volume Laterality Blood 09/06/2013 7:30 PM 4 7:[address] Shi M.D. LAB BLOOD ADD-ON Performing Organization Address City/State/ZIP Code Phon e Number POWERCHART CBC with Differential (09/06/2013 7:30 PM CDT) athologist Signature Leukocytes 7.2 3.4 - 10.5 POWERCHART X109L Erythrocytes 4.57 3.90 - 5.03 POWERCHART X0154E Hemoglobin 14.0 12.0 - 15.5 POWERCHART GDL Hematocrit 41.6 34.9 - 44.5 POWERCHART MCV 91.0 82.0 - 98.0 POWERCHART FL HX RDW 13.0 11.9 - 15.5 POWERCHART Platelet Count 243 150 - 450 POWERCHART X109L Specimen (Source) Anatomical Collection Method Collection Time Re ceived Time Location / / Volume Laterality Blood 09/06/2013 7:[address] Shi M.D. LAB BLOOD ADD-ON Performing Organization Address City/[facility] Code Phon e Number POWERCHART D-Dimer (09/06/2013 7:30 PM CDT) P athologist Signature D-Dimer, P 0.28 <=0.50 POWERCHART [id number] Comment: Results of this [...] Time Location / / Volume Laterality Blood 09/06/2013 7:[address] Shi M.D. LAB BLOOD ADD-ON Performing Organization Address City/State/ZIP Code Phon e Number POWERCHART BMP (Basic Metabolic Panel) (09/06/2013 7:30 PM CDT) P athologist Signature Sodium, S 138 135 - 145 POWERCHART MMOLL Comment: Reference values have not been established for patients that are less than 12 months of age. Potassium, S 4.0 3.6 - 5.2 MMOLL POWERCHART Comment: Reference values have not been established for patients that are less than 12 months of age. Chloride, S 103 98 - 107 MMOLL POWERCHART Comment: Reference values have not been established for patients that are less than 12 months of age. CO2 Total 24 22 - 29 MMOLL POWERCHART Comment: Reference values have not been established for patients that are less than 12 months of age. BUN (Blood Urea Nitrogen), S 16 6 - 21 MGDL POWERCHART Comment: Reference values have not been established for patients that are less than 12 months of age. Creatinine 0.6 0.6 - 1.1 MGDL POWERCHART Comment: Reference values have not been establish ed for patients that are <12 months of age. ESTIMATED GFR >60 mL/min/BSA Note: eGFR results will not be calculate d for patients <18 Calcium, Total, S 9.3 8.9 - 10.1 MGDL POWERC NANCE Comment: Reference values have not been established for patients that are less than 12 months of age. Anion Gap 15 6 - 20 MMOLL POWERCHART HXeGFR (MDRD) >60 >=60 [id number] POWERCHART eGFR Black/ >60 >=60 [id number] POWERCHART Glucose 91 70 - 139 MGDL POWERCHART Comment: ADA [...] Time Location / / Volume Laterality Blood 09/06/2013 7:[address] Shi M.D. LAB BLOOD ADD-ON Performing Organization Address City/State/ZIP Code Phon e Number POWERCHART documented in this encounter Visit Diagnoses Not on filedocumented in this encounter
--- OUTSIDE RECORDS SUMMARY | 2022-02-03 23:58 | XMS_ITS | Encounter Summary ---
:1985 Author Organization [facility] Address [address] [place] [address] Care Team Providers Name Role Phone Unavailable Primary Care Provider Unavailable Encounter Details Date Type Department Care Team Description 09/28/2002 - Hospital Encounter HX [facility] Surjit Rai, 09/15/2014 KENISHA Andrade Social History Tobacco Use Types Packs/Day Years Used Date Smoking Tobacco: Never Assessed Sex Assigned at Date Recorded Not on file documented as of this encounter Discharge Summaries Dhiraj Witt M.D. - 08/20/2015 5:31 PM CDT Hospital Discharge Instructions [facility] [address] [place] [address] Patient Discharge Instructions Name: SILVIA BLANCHARDN Current Date: 08/20/2015 17:31:10 : 1985 12:00 AM [facility] Number: [id number] Patient Address: [address] [place] [phone] Patient Primary Care Provider: Name: SOFIE SORIA MD Phone: [phone] Discharge Diagnosis: Sprain Finger Initial [facility] in [place] would like to thank you for allowing us to assist you with your healthcare needs. The following includes patient education materials and information regarding your injury/illness. Comment: TORIBIO BLANCHARDNuha MALIK has been given the following list of follow-up instructions, medication list, and patient education materials: Follow-up Instructions Medications Medication/Strength How to Take Indications/Special Instructions/Comments/Notes for Patient Medication Changes/Routing FLUoxetine (Prozac 10 mg oral tablet) 1 Tablet(s), Oral, once a day Routed to [facility] [address] [place], [place] [id number] lidocaine topical (Lidoderm 5% topical film) 1 patch(es), Topical, once a day Apply to intact skin and remove patch after a maximum of 12 hr of application within a 24 hr period New Routed to [facility] omeprazole (omeprazole 40 mg oral delayed release capsule) 1 cap, Oral, once a day Routed to [facility] [address] [facility] [place], [place] [address] polyethylene glycol 3350 with electrolytes (GoLYTELY oral powder for reconstitution) 240 Milliliter,Oral, every 10 minutes New Routed to [facility] traMADol (traMADol 50 mg oral tablet) See Instructions, as needed for Pain 1 to 2 tab(s) PO q6hr as needed for pain New Routed to [facility] Stop Taking the Following Medications: acetaminophen-codeine (Tylenol with Codeine #3 oral tablet) amoxicillin (amoxicillin 500 mg oral capsule) clotrimazole (Clotrimazole) dexamethasone (dexamethasone 2 mg oral tablet) ethinyl estradiol-norgestimate (Norgestimate-Ethinyl Estradiol) ketorolac (Toradol 10 mg oral tablet) magnesium citrate (Citrate of Magnesia 1.745 g/30 mL oral liquid) Misc Prescription (School excuse) Misc Prescription (work excuse) Misc Prescription (Work excuse) ondansetron (ondansetron 4 mg oral tablet, disintegrating) ondansetron (Zofran 4 mg oral tablet) oxyCODONE (oxyCODONE 5 mg oral tablet) penicillin V potassium (penicillin V potassium 500 mg oral tablet) Medication list as of 08-20-15 17:31 Attention: If you have any medications at home that are not on this list, DO NOT take them until youcontact your provider for clarification. Give a copy of your medication list to your primary care provider. Update your medication list any time medications or doses are changed and carry your medication list at all times in case of emergency. Comment: Electronically Signed By: DHIRAJ WITT MD Signed On:20-AUG-2015 17:29:10 Your Upcoming Appointments Date Time Location Provider 08/23/2015 08:15 [facility] Sofie Soria MD Consider Using Patient Online [...] if you dont have one. Go to [email or web address] and click on Create Your Account. Then, follow the directions to complete the online form. Youll be asked for your [facility] number which you can find at the top of this document. I, SILVIA BLANCHARD , have received the attached patient education materials/instructions and have verbalized understanding: Patient Signature Date Time Care Provider Signature Date Time Source: [facility] POWERCHART Document Id: [id number] Dhiraj Witt M.D. - 08/20/2015 5:31 PM CDT Hospital Discharge Medication List [facility] [address] [place] [address] Discharge Medication List Name: SILVIA BLANCHARD Current Date: 08/20/2015 17:31:09 : 1985 12:00 AM [facility] Number: [id number] Patient Address: [address] [place] [phone] Patient Primary Care Provider: Name: SOFIE SORIA MD Phone: [phone] Discharge Diagnosis: Sprain Finger Initial [facility] in [place] would like to thank you for allowing us to assist you with your healthcare needs. The following includes patient education materials and information regarding your injury/illness. Medications Medication/Strength How to Take Indications/Special Instructions/Comments/Notes for Patient Medication Changes/Routing FLUoxetine (Prozac 10 mg oral tablet) 1 Tablet(s), Oral, once a day Routed to [facility] [address] [facility] [place], [place] [address] lidocaine topical (Lidoderm 5% topical film) 1 patch(es), Topical, once a day Apply to intact skin and remove patch after a maximum of 12 hr of application within a 24 hr period New Routed to [facility] omeprazole (omeprazole 40 mg oral delayed release capsule) 1 cap, Oral, once a day Routed to [facility] [address] [place], [place] [address] polyethylene glycol 3350 with electrolytes (GoLYTELY oral powder for reconstitution) 240 Milliliter,Oral, every 10 minutes [facility]traMADol 50 mg oral tablet) See Instructions, as needed for Pain 1 to 2 tab(s) PO q6hr as needed for pain New Routed to [facility] Stop Taking the Following Medications: acetaminophen-codeine (Tylenol with Codeine #3 oral tablet) amoxicillin (amoxicillin 500 mg oral capsule) clotrimazole (Clotrimazole) dexamethasone (dexamethasone 2 mg oral tablet) ethinyl estradiol-norgestimate (Norgestimate-Ethinyl Estradiol) ketorolac (Toradol 10 mg oral tablet) magnesium citrate (Citrate of Magnesia 1.745 g/30 mL oral liquid) Misc Prescription (School excuse) Misc Prescription (work excuse) Misc Prescription (Work excuse) ondansetron (ondansetron 4 mg oral tablet, disintegrating) ondansetron (Zofran 4 mg oral tablet) oxyCODONE (oxyCODONE 5 mg oral tablet) penicillin V potassium (penicillin V potassium 500 mg oral tablet) Medication list as of 08-20-15 17:31 Attention: If you have any medications at home that are not on this list, DO NOT take them until youcontact your provider for clarification. Give a copy of your medication list to your primary care provider. Update your medication list any time medications or doses are changed and carry your medication list at all times in case of emergency. Comment: Electronically Signed By: DHIRAJ WITT MD Signed On:20-AUG-2015 17:29:10 [facility] Document Id: [id number] documented in this encounter Progress Notes Chauncey Gilliland M.D. - 06/04/2016 1:00 PM CST Free Text Note Silvia went to ER last night for pain not controlled by the ultram. Dose was increased, but stillnot helping. will give #24 percocet 5/[address] Wilkerson Electronically Signed By: CHAUNCEY GILLILAND MD On: 06/04/2016 01:01 PM Source: [facility] [employer] Document Id: [id number] R UP documented in this encounter Nursing Notes Breann Frederick R.N. - 06/02/2016 2:55 PM CST PRELIMINARY - Anesthesia - Preanesthesia Evaluation PREANESTHESIA EVALUATION PROCEDURE INFORMATION [facility] Pre-Procedure Indication Hemorroids Procedure Planned Hemorrhoidectomy Surgeon Requested Anesthesia Type SAB HEIGHT AND WEIGHT H 169 W 81.6 ALLERGY LIST NKA PROBLEM LIST Abuse Tobacco Smoking NOS Disease Gastroesophageal Reflux (GERD ERMELINDA) Hemorrhoids External NOS MEDICATION LIST Medication List Active Medications Prescribed oxyCODONE-acetaminophen: 1 tab(s), PO, q6hr, PRN: [...] data available. THYROID No qualifying data available. OTHER EKG - _ ECHO - _ PFTs - _ DATE OF HISTORY AND PHYSICAL EXAM 06/02/16 CURRENT / PAST MEDICAL AND SURGICAL HISTORY [x] Within Normal Limits Unless Otherwise Specified Cardiovascular [_] Functional Capacity under 4 mets [_] Hypertension [_] Hyperlipidemia/Dyslipidemia [_] Coronary Artery Disease [_] History of Myocardial Infarction [_] Congestive heart failure [_] Pacemaker [_] AICD [_] Dependent Last checked:_ Respiratory / Pulmonary [x] Nicotine/Tobacco use [_] Asthma [_] Chronic Obstructive Lung Disease [_] Obstructive Sleep Apnea Renal / Urinary and Reproductive [_] Chronic or Acute Kidney Disease Endocrine [_] Diabetes [_] Hypothyroidism Neurologic [_] Cerebrovascular Disease [_] Parkinsons Disease Mental Status [_] Alcohol/Other Substance Abuse [_] Anxiety/depression Musculoskeletal [_] Degenerative Joint Disease/Osteoarthritis [_] Restless leg syndrome Gastrointestinal / Hepatobilliary [x] Gastroesophageal Reflux Disease Hematology [_] Anemia [_] Increased Risk of Hemorrhage Ophthalmologic ENT [_] History of Difficult Airway Infectious Disease [_] MRSA Anesthesia (personal and family) [_] Personal History of Anesthetic Problems [_] Family History of Malignant Hyperthermia [_] Family History of serious anesthetic problems Other CRISTOBAL will Not see prior to Electronically Signed By: BREANN FREDERICK RN On: 06/02/2016 02:57 PM Source: [facility] [employer] Document Id: [id number] R UP documented in this encounter Plan of Treatment Not on filedocumented as of this encounter Visit Diagnoses Not on filedocumented in this encounter
--- OUTSIDE RECORDS SUMMARY | 2022-02-03 23:58 | XMS_ITS | Encounter Summary ---
:1985 Author Organization [facility] Address [address] [place] [address] Care Team Providers Name Role Phone Unavailable Primary Care Provider Unavailable Encounter Details Date Type Department Care Team Description 11/01/2013 Hospital Encounter HX [facility] Alcides Hill M.D. [address] [place] [phone] (Wo rk) Social History Tobacco Use Types Packs/Day Years Used Date Smoking Tobacco: Never Assessed Sex Assigned at Date Recorded Not on file documented as of this encounter Last Filed Vital Signs Vital Sign Reading Time Taken Comments Blood Pressure 151/91 11/01/2013 8:30 PM CDT Pulse 126 11/01/2013 8:30 PM CDT Temperature - - Respiratory Rate 14 11/01/2013 8:30 PM CDT Oxygen Saturation - - Inhaled Oxygen Concentration - - Weight - - Height 169 cm (5' 6.54) 11/01/2013 8:30 PM CDT Body Mass Index - - documented in this encounter Discharge Summaries Janett Dalton, L.P.N. - 11/01/2013 8:54 PM CDT ED Discharge Instructions [facility] [address] [place] [address] Name: SILVIA STEELE Date of : 1985 12:00 AM Visit Date: 11/01/2013 8:18 PM [facility] Number: [id number] Address: [address] [place] [address] Primary Care Provider: PCP, ELSEWHERE IMPORTANT: [facility] in [place] would like to thank you for allowing us to assist youwith your healthcare needs. The following includes patient education materials and information regarding your injury/illness. Diagnosis: Follow-Up Instructions: With: Address: When: Return to Urgent Care Within As Needed Comments: For suture removal in 10 days With: Address: When: ELSEWHERE PCP Within As Needed Comments: Your Upcoming Appointments: Date Time Location Reason Provider No Appointments found Patient Education Materials: [id number] LACERATION, SCALP [sutures or jose de jesus] A LACERATION is a cut through the skin. This will require stitches (sutures) or jose de jesus if it is deep. HOME CARE: ?? During the first two days you may carefully rinse your hair in the shower to remove blood, glass or dirt particles. After two days you may shower and shampoo your hair normally. ?? Have someone help you clean your wound every day: o In the shower, wash the area with soap and water. Use a wet cotton swab (Q tip) to loosen and remove any blood or crust that forms. o After cleaning, apply a thin layer of Polysporin or Bacitracin ointment. This will keep the wound clean and make it easier to remove the stitches or jose de jesus. Reapply a fresh bandage. ?? Do not put your head under water (no swimming) until the stitches or jose de jesus have been removed. ?? You may use acetaminophen (Tylenol) or ibuprofen (Motrin, Advil) to control pain, unless another pain medicine was prescribed. [ NOTE : If you have chronic liver or kidney disease or ever had a stomach ulcer or GI bleeding, talk with your doctor before using these medicines.] FOLLOW UP with your doctor as directed. Most scalp wounds heal within seven days. However, an infection can sometimes occur. Therefore, check the wound daily for the warning signs listed below. Stitches or jose de jesus should be removed from the scalp in about 5-7 days. RETURN PROMPTLY or contact your doctor if any of the following occur: ?? Increasing pain in the wound ?? Redness, swelling, pus coming from the wound ?? Fever of 100.4??F (38??C) or higher, or as directed by your healthcare provider ?? If stitches or stapes come apart or fall out before your next appointment ?? If the wound edges re-open Bleeding not controlled by direct pressure ?? [id number] [facility], [address] [place] [address], [place] [address]. All rights reserved. This information is not intended as a substitute for professional medical care. Always follow your healthcare professional's instructions. ED Tests and Procedures: Order Status Discharge Prescriptions & Home Medications: Medication/Strength Dose Route Frequency Indications/Special Instructions/Comments/Notes FLUoxetine (Prozac 10 mg oral tablet) 10 [...] a ride home with a responsible democrat. ICEDRIC KRISTINA LYNN , or responsible democrat have received this information and my questions have been answered. I have discussed any challenges I see with this plan with the nurse or physician. Patient Signature or Responsible Democrat/Relationship Date Time Provider Signature Date Time Medication [...] home with a responsible democrat. I, SILVIA STEELE KING , or responsible democrat have received this information and my questions have been answered. I have discussed any challenges I see with this plan with the nurse or physician. Patient Signature or Responsible Democrat/Relationship Date Time Provider Signature Date Time Source: [facility] POWERCHART Document Id: [id number] Janett Dalton L.P.N. - 11/01/2013 8:54 PM CDT ED Depart Summary [facility] Emergency Department / Urgent Care Clinical Discharge Summary PERSON INFORMATION Name SILVIA STEELE Age 28 Years 1985 12:00 AM Sex Female Language Lithuanian PCP PCP, ELSEWHERE Marital Status Single Visit Id Visit Reason UC - Laceration; Head Laceration Specialty [facility] Type [facility] Outpatient Med Service Urgent Care Referred by Tamar MENDEZ ED/UC Discharge 11/01/2013 8:54 PM Tracking Id [id number] Checkout 11/01/2013 8:54 PM Checkin 11/01/2013 8:18 PM Acuity 5 -Non Urgent Dispo Type * Discharged to Home or Self Care Arrival 11/01/2013 8:18 PM Reg Status Complete LOS 000 00:36 Address: [address] [place] [address] Comment: PROVIDER INFORMATION Provider Role Provider Contact Time ALCIDES HILL MD ED Provider 11/01/13 20:30 JANETT DALTON LPN ED Nurse 11/01/13 20:30 DIAGNOSIS Comment: PATIENT EDUCATION INFORMATION Instructions: LACERATION, Scalp Follow up: With: Address: When: Return to Urgent Care Within As Needed Comments: For suture removal in 10 days With: Address: When: ELSEWHERE PCP Within As Needed Comments: Source: [facility] POWERCHART Document Id: [id number] documented in this encounter Progress Notes Alcides Hill M.D. - 11/01/2013 8:18 PM CDT [id number] CHIEF COMPLAINT/REASON FOR VISIT Head laceration. HISTORY OF PRESENT ILLNESS Patient is a 28-year-old female who came into [facility]gent [facility] complaining of the top of the headinjured and lacerated about 25 minutes ago. She said that she accidentally bumped her head on the window frame and suffered a laceration on top of the head. She did lose consciousness for sure and otherwise no other concerning complaint. She has no allergy to medications. Her last tetanus shot was done long time ago, probably more than 8 years ago. PHYSICAL EXAMINATION GENERAL: NAD. VITAL SIGNS: Stable. HEAD: On examination of the scalp noted that she does have a 2 cm long laceration on top of the scalp; otherwise, no active bleeding. No gross contamination. IMPRESSION/REPORT/PLAN Scalp laceration need to be repaired. PLAN: Discussed with the patient, and decided to close the wound with a staple. The universal protocol was followed with correct procedure verified, correct patient verified, site not marked because I was continuously in the room, and a pause was done prior to the procedure. The local area was anesthetized with 1% lidocaine with infiltration, and the wound and surrounding scalp were cleaned with Shur-Clens thoroughly and 3 jose de jesus applied. She tolerated procedure very well. Make sure there is no hair entrapped in the wound, apply triple ointment antibiotic, and wound care instruction was given. Margy be back in 10 days for jose de jesus removal. Alcides Hill M.D./guillermo Electronically Signed By: ALCIDES HILL MD On: 11/07/2013 07:17 PM Source: [facility] MHSDOLBEYNONRADSYS Document Id: [id number] documented in this encounter H&P Notes Janett Dalton L.P.N. - 11/01/2013 8:30 PM CDT Urgent Care Intake Urgent Care Intake Entered On: 11/01/2013 20:32 CDT Performed On: 11/01/2013 20:30 CDT by JANETT DALTON LPN Intake Chief Complaint : pt c/o head laceration. Pt states I jumped over my neighbors flower pot and hit my head on the window that was open pt reports incident happened 20 mins prior to arrival. bleeding controlled Temperature Core : 37.0 DegC(Converted to: 98.6 DegF) Peripheral Pulse Rate : 126 /min (HI) Respiratory Rate : 14 /min Systolic Blood Pressure : 151 mmHg (HI) Diastolic Blood Pressure : 91 mmHg (>HHI) NIBP Mean : 111 mmHg BP Location : Left upper extremity Blood Pressure Cuff Size : Regular SpO2 : 99 % Oxygen Therapy : Room air Height : 169 cm(Converted to: 5 ft 7 inch(es), 67 inch(es)) JANETT DALTON LPN - 11/01/2013 20:30 CDT General Info Information Given By : Patient Preferred Communication Mode : Verbal Languages : Lithuanian JANETT DALTON LPN - 11/01/2013 20:30 CDT Subjective Pain Symptoms : Yes JANETT DALTON LPN - 11/01/2013 20:30 CDT Pain Pain Assessment Grid Pain 1 Location : Head Laterality : Right Intensity : 8 JANETT DALTON LPN - 11/01/2013 20:30 CDT Dependent Habits Tobacco Use/Currently Using : Yes Exposure to Tobacco Smoke : Patient smokes, Other: occ alcohol Smoking Status : Current every day smoker JANETT DALTON LPN - 11/01/2013 20:30 CDT Caffeine Use Grid Caffeine Use : None JANETT DALTON LPN - 11/01/2013 20:30 CDT Nutrition Nutrition Risk Factors by History Adult : None JANETT DALTON [facility] - 11/01/2013 20:30 CDT Functional Current Daily Living Assistance : None JANETT DALTON [employer] - 11/01/2013 20:30 CDT Psychosocial Domestic Abuse Concerns : None Mandaeism Preference : No Mandaeism Affiliation JANETT DALTON LPN - 11/01/2013 20:30 CDT Advance Directive Advanced Directives : No JANETT DALTON LPN - 11/01/2013 20:30 CDT Educ Needs Learning Style Preference Adult Grid Patient : Printed materials Family : None JANETT DALTON LPN - 11/01/2013 20:30 CDT Source: [employer] Document Id: [id number] CDT!46 documented in this encounter ED Notes Janett Dalton L.P.N. - 11/01/2013 8:53 PM CDT ED Disposition Summary ED Disposition Summary Entered On: 11/01/2013 20:53 CDT Performed On: 11/01/2013 20:53 CDT by JANETT DALTON LPN ED Disposition Summary Accompanied By : Alone Mode of Discharge : Ambulatory Transportation : Private vehicle Discharge From ED With : Home Med List Printed Discharge Instructions Given to Patient : Yes JANETT DALTON LPN - 11/01/2013 20:53 CDT Source: [employer] Document Id: [id number] CDT!7 Trisha Calderon R.N. - 11/01/2013 8:20 PM CDT ED Triage Assessment Document Has Been Updated ED Triage Assessment Entered On: 11/01/2013 20:28 CDT Performed On: 11/01/2013 20:20 CDT by TRISHA CALDERON RN Reason For Visit (As Of: 11/01/2013 20:29:00 CDT) Problems(Active) No Chronic Problems (Cerner :NKP ) Name of Problem: No Chronic Problems ; Recorder: NATY XIE MD; Confirmation: Confirmed ; Classification: Medical ; Code: NKP ; Last Updated: 05/15/2013 16:30 CALKER; Life Cycle Date: 05/15/2013 ; Life Cycle Status: Active ; Vocabulary: Cerner Diagnoses(Active) UC - Laceration Date: 11/01/2013 ; Diagnosis Type: Reason For Visit ; Confirmation: Complaint of ; Clinical Dx: UC - Laceration ; Classification: Medical ; Clinical Service: Emergency medicine ; Code: PNED ; Probability: 0 ; Diagnosis Code: [id number] Triage Chief Complaint Description : PT HIT THE TOP OF HER SCALP ON AN OPEN WINDOW WHILE OUTSIDE. LACERATION IS BLEEDING. NO LOC. Information Given By : Patient Accompanied By : Alone Mode of Arrival ED : Private vehicle, Ambulatory Track : Medical Languages : Lithuanian Patient Informed of Triage Location : Urgent Care Treatments Prior to Arrival : None TRISHA CALDERON RN - 11/01/2013 20:27 CDT Pain Assessment Pain Symptoms : No TRISHA CALDERON RN - 11/01/2013 20:27 CDT DENNY DCP GENERIC CODE Tracking Acuity : 5 -Non Urgent Tracking Group : [facility] ED/ TRISHA CALDERON RN - 11/01/2013 20:27 CDT Source: [facility] POWERCHART Document Id: [id number] CDT!16 documented in this encounter Plan of Treatment Not on filedocumented as of this encounter Visit Diagnoses Not on filedocumented in this encounter
--- OUTSIDE RECORDS SUMMARY | 2022-02-03 23:58 | XMS_ITS | Encounter Summary ---
:1985 Author Organization [facility] Address [address] [place] [address] Care Team Providers Name Role Phone Unavailable Primary Care Provider Unavailable Encounter Details Date Type Department Care Team Description 09/21/2004 Hospital Encounter [facility]X [facility] Bushra Flores M.D. Social History Tobacco Use Types Packs/Day Years Used Date Smoking Tobacco: Never Assessed Sex Assigned at Date Recorded Not on file documented as of this encounter Plan of Treatment Not on filedocumented as of this encounter Visit Diagnoses Not on filedocumented in this encounter
--- OUTSIDE RECORDS SUMMARY | 2022-02-03 23:58 | XMS_ITS | Encounter Summary ---
:1985 Author Organization [facility] Address [address] [place] [address] Care Team Providers Name Role Phone Unavailable Primary Care Provider Unavailable Encounter Details Date Type Department Care Team Description 09/24/2004 Hospital [facility] Social History Tobacco Use Types Packs/Day Years Used Date Smoking Tobacco: Never Assessed Sex Assigned at Date Recorded Not on file documented as of this encounter Plan of Treatment Not on filedocumented as of this encounter Visit Diagnoses Not on filedocumented in this encounter
--- OUTSIDE RECORDS SUMMARY | 2022-02-03 23:58 | XMS_ITS | Encounter Summary ---
:1985 Author Organization [facility] Address [address] [place] [address] Care Team Providers Name Role Phone Unavailable Primary Care Provider Unavailable Encounter Details Date Type Department Care Team Description 08/18/2004 Hospital Encounter HX [facility] Bushra Flores M.D. Social History Tobacco Use Types Packs/Day Years Used Date Smoking Tobacco: Never Assessed Sex Assigned at Date Recorded Not on file documented as of this encounter Plan of Treatment Not on filedocumented as of this encounter Visit Diagnoses Not on filedocumented in this encounter
--- OUTSIDE RECORDS SUMMARY | 2022-02-03 23:58 | XMS_ITS | Encounter Summary ---
:1985 Author Organization [facility] Address [address] [place] [address] Care Team Providers Name Role Phone Unavailable Primary Care Provider Unavailable Encounter Details Date Type Department Care Team Description 10/14/2004 Hospital Encounter HX [facility] Provider, [facility] Social History Tobacco Use Types Packs/Day Years Used Date Smoking Tobacco: Never Assessed Sex Assigned at Date Recorded Not on file documented as of this encounter Plan of Treatment Not on filedocumented as of this encounter Visit Diagnoses Not on filedocumented in this encounter
--- OUTSIDE RECORDS SUMMARY | 2022-02-03 23:58 | XMS_ITS | Encounter Summary ---
:1985 Author Organization [facility] Address [address] [place] [address] Care Team Providers Name Role Phone Unavailable Primary Care Provider Unavailable Encounter Details Date Type Department Care Team Description 11/11/2013 Hospital Encounter HX [facility] Zeina Cortes M.D. Social History Tobacco Use Types Packs/Day [...] - - Height 169 cm (5' 6.54) 11/11/2013 11:08 AM CDT Body Mass Index - - documented in this encounter Discharge Summaries Kimi Boyle L.P.N. - 11/11/2013 11:42 AM CDT ED Discharge Instructions [place] [id number] Name: SILVIA STEELE Date of : 1985 12:00 AM Visit Date: 11/11/2013 10:55 AM [facility] Number: [id number] Address: [address] [place] [address] Primary Care Provider: PCP, ELSEWHERE IMPORTANT: [facility] in [place] would like to thank you for allowing us to assist youwith your healthcare needs. The following includes patient education materials and information regarding your injury/illness. Diagnosis: Aftercare Suture Removal Post Operative Follow-Up Instructions: With: Address: When: ELSEWHERE PCP Within As Needed Comments: Your Upcoming Appointments: Date Time Location Reason Provider No Appointments found Patient Education Materials: [id number] SUTURE REMOVAL (No complication) You were seen today for a suture removal. Your wound is healing as expected. It is unlikely that youwill have any further problem. HOME CARE: ?? Keep the wound clean and dry. Use a Band-Aid, if needed, to keep the wound from getting dirty forthe next week. ?? Wash the wound carefully with soap and water each day during the next week. ?? You may shower and bathe as usual. Swimming is now permitted. FOLLOW UP for any problems with your own doctor. GET PROMPT MEDICAL ATTENTION if any of the following occur: ?? Increasing pain in the wound ?? Redness, swelling or pus coming from the wound ?? Fever of 100.4??F (38??C) or higher, or as directed by your healthcare provider If the wound edges re-open ?? [id number] [place] [address]. All rights reserved. This information is not [...] to take those medications. SILVIA STEELE or juan joseee has reviewed the home [...] with a responsible constitution party. I, SILVIA STEELE , or responsible constitution party have received this information and my questions have been answered. I have discussed any challenges I see with this plan with the nurse or physician. Patient Signature or Responsible Constitution Party/Relationship Date Time Provider Signature Date Time Source: [facility] POWERCHART Document Id: [id number] Kimi Boyle L.P.N. - 11/11/2013 11:42 AM CDT ED Depart Summary [facility] Emergency Department / Urgent Care Clinical Discharge Summary PERSON INFORMATION Name SILVIA STEELE Age 28 Years 1985 12:00 AM Sex Female Language Micronesian PCP PCP, ELSEWHERE Marital Status Single Visit Id Visit Reason Wound reevaluation with or without suture removal; REMOVE SUTURES Specialty [facility] Type [facility] Outpatient Med Service Urgent Care Referred by Track Group [facility] ED/UC Discharge 11/11/2013 11:42 AM Tracking Id [id number] Checkout 11/11/2013 11:42 AM Checkin 11/11/2013 10:55 AM Acuity 5 -Non Urgent Dispo Type * Discharged to Home or Self Care Arrival 11/11/2013 10:55 AM Reg Status Complete LOS 000 00:47 Address: [address] [place] [address] Comment: PROVIDER INFORMATION Provider Role Provider Contact Time KIMI BOYLE LPN ED Nurse 11/11/13 11:00 ARIANE CORTES MD ED Provider 11/11/13 11:00 DIAGNOSIS Aftercare Suture Removal Post Operative Comment: PATIENT EDUCATION INFORMATION Instructions: SUTURE REMOVAL, No Complication Follow up: With: Address: When: ELSEWHERE PCP Within As Needed Comments: Source: [facility] POWERCHART Document Id: [id number] documented in this encounter Progress Notes Ariane Cortes M.D. - 11/11/2013 10:55 AM CDT [id number] CHIEF COMPLAINT/REASON FOR VISIT Staple removal. HISTORY OF PRESENT ILLNESS Patient is a 28-year-old, who is 10 days post stapling of a scalp laceration. She denies complaints and is here for staple removal. PHYSICAL EXAMINATION GENERAL: Patient is alert and in no distress. SKIN: Scalp: On the top of the head there are [address] Wound is healing well. There is nodrainage or redness. Lizeth were removed without difficulty. IMPRESSION/REPORT/PLAN Scalp laceration with staple removal. PLAN: Post staple removal. Wound care instructions were given. Return as needed. Ariane Cortes M.D./guillermo Electronically Signed By: ARIANE CORTES MD On: 11/12/2013 04:19 PM Source: [facility] MHSDOLBEYNONRADSYS Document Id: [id number] documented in this encounter H&P Notes Kimi Boyle L.P.N. - 11/11/2013 11:08 AM CDT Urgent Care Intake Urgent Care Intake Entered On: 11/11/2013 11:09 CDT Performed On: 11/11/2013 11:08 CDT by KIMI BOYLE LPN Intake Chief Complaint : HERE TO HAVE X3 LIZETH REMOVED. NO DRAINAGE NOTED. NO PAIN NOTED AFFECT SCALP AREA. Onset of Symptoms : 10M DAYS AGO Temperature Core : 37 DegC(Converted to: 98.6 DegF) Height : 169 cm(Converted to: 5 ft 7 inch(es), 67 inch(es)) KIMI BOYLE LPN - 11/11/2013 11:08 CDT General Info Information Given By : Patient Preferred Communication Mode : Verbal Languages : Micronesian KIMI BOYLE LPN - 11/11/2013 11:08 CDT Subjective Pain Symptoms : No KIMI BOYLE LPN - 11/11/2013 11:08 CDT Dependent Habits Tobacco Use/Currently Using : Yes Exposure to Tobacco Smoke : Patient smokes, Other: occ alcohol Smoking Status : Smoker, current status unknown KIMI BOYLE LPN - 11/11/2013 11:08 CDT Caffeine Use Grid Caffeine Use : None KIMI BOYLE ELLY - 11/11/2013 11:08 CDT Nutrition Nutrition Risk Factors by History Adult : None KIMI BOYLE ELLY - 11/11/2013 11:08 CDT Functional Current Daily Living Assistance : None KIMI BOYLE ELLY - 11/11/2013 11:08 CDT Psychosocial Domestic Abuse Concerns : None Worship Preference : No Worship Affiliation KIMI BOYLE ELLY - 11/11/2013 11:08 CDT Advance Directive Advanced Directives : No BOYLEKIMI ELLY - 11/11/2013 11:08 CDT Educ Needs Learning Style Preference Adult Grid Patient : Printed materials Family : Printed materials BOYLEKIMI ELLY - 11/11/2013 11:08 CDT Source: [employer] Document Id: [id number] CDT!32 documented in this encounter ED Notes Kimi Boyle L.P.N. - 11/11/2013 11:42 AM CDT ED Disposition Summary ED Disposition Summary Entered On: 11/11/2013 11:42 CDT Performed On: 11/11/2013 11:42 CDT by KIMI BOYLE LPN ED Disposition Summary Accompanied By : Significant other Mode of Discharge : Ambulatory Transportation : Private vehicle Discharge From ED With : Home Med List Printed Discharge Instructions Given to Patient : Yes Patient Status at Discharge from ED : Improved KIMI BOYLE LPN - 11/11/2013 11:42 CDT Source: [employer] Document Id: [id number] CDT!8 Trisha Calderon R.N. - 11/11/2013 10:56 AM CDT ED Triage Assessment Document Has Been Updated ED Triage Assessment Entered On: 11/11/2013 10:56 CDT Performed On: 11/11/2013 10:56 CDT by TRISHA CALDERON RN Reason For Visit (As Of: 11/11/2013 10:56:55 CDT) Problems(Active) No Chronic Problems (Cerner :NKP ) Name of Problem: No Chronic Problems ; Recorder: NATY XIE MD; Confirmation: Confirmed ; Classification: Medical ; Code: NKP ; Last Updated: 05/15/2013 16:30 SOFTWARE DEVELOPER; Life Cycle Date: 05/15/2013 ; Life Cycle Status: Active ; Vocabulary: Karen Diagnoses(Active) Wound reevaluation with or without suture removal Date: 11/11/2013 ; Diagnosis Type: Reason For Visit ; Confirmation: Complaint of ; Clinical Dx: Wound reevaluation with or without suture removal ; Classification: Medical ; Clinical Service: Emergency medicine ; Code: PNED ; Probability: 0 ; DiagnosisCode: [id number] Triage Chief Complaint Description : PT IS HERE TO HAVE LIZETH REMOVED FROM THE TOP RIGHT SCALP. PT HAD RUN INTO AN OPEN WINDOW OUTSIDE. Information Given By : Patient Accompanied By : Significant other Mode of Arrival ED : Private vehicle, Ambulatory Track : Medical Languages : Micronesian Patient Informed of Triage Location : Urgent Care Treatments Prior to Arrival : None TRISHA CALDERON RN - 11/11/2013 10:56 CDT Pain Assessment Pain Symptoms : No RTISHA CALDERON RN - 11/11/2013 10:56 CDT DENNY DCP GENERIC CODE Tracking Acuity : 5 -Non Urgent Tracking Group : [facility] ED/ TRISHA CALDERON RN - 11/11/2013 10:56 CDT Source: [employer] Document Id: [id number] CDT!16 documented in this encounter Plan of Treatment Not on filedocumented as of this encounter Visit Diagnoses Not on filedocumented in this encounter
--- OUTSIDE RECORDS SUMMARY | 2022-02-03 23:58 | XMS_ITS | Encounter Summary ---
:1985 Author Organization [facility] Address [address] [place] [address] Care Team Providers Name Role Phone Unavailable Primary Care Provider Unavailable Encounter Details Date Type Department Care Team Description 09/24/2004 Hospital Encounter HX [facility] Skylar Burgess M.D. Social History Tobacco Use Types Packs/Day Years Used Date Smoking Tobacco: Never Assessed Sex Assigned at Date Recorded Not on file documented as of this encounter Plan of Treatment Not on filedocumented as of this encounter Visit Diagnoses Not on filedocumented in this encounter
--- OUTSIDE RECORDS SUMMARY | 2022-02-03 23:58 | XMS_ITS | Encounter Summary ---
:1985 Author Organization [facility] Address [address] [place] [address] Care Team Providers Name Role Phone Unavailable Primary Care Provider Unavailable Encounter Details Date Type Department Care Team Description 10/03/2004 - Hospital Encounter HX [facility] 10/05/2004 [facility] A, D.O. Social History Tobacco Use Types Packs/Day Years Used Date Smoking Tobacco: Never Assessed Sex Assigned at Date Recorded Not on file documented as of this encounter Plan of Treatment Not on filedocumented as of this encounter Visit Diagnoses Not on filedocumented in this encounter
--- OUTSIDE RECORDS SUMMARY | 2022-02-03 23:58 | XMS_ITS | Encounter Summary ---
:1985 Author Organization [facility] Address [address] [place] [address] Care Team Providers Name Role Phone Unavailable Primary Care Provider Unavailable Encounter Details Date Type Department Care Team Description 09/07/2004 Hospital Encounter HX [facility] Obdulio West M.D. Social History Tobacco Use Types Packs/Day Years Used Date Smoking Tobacco: Never Assessed Sex Assigned at Date Recorded Not on file documented as of this encounter Plan of Treatment Not on filedocumented as of this encounter Visit Diagnoses Not on filedocumented in this encounter
--- OUTSIDE RECORDS SUMMARY | 2022-02-03 23:58 | XMS_ITS | Encounter Summary ---
:1985 Author Organization [facility] Address [address] [place] [address] Care Team Providers Name Role Phone Unavailable Primary Care Provider Unavailable Encounter Details Date Type Department Care Team Description 08/14/2004 Hospital Encounter HX [facility] OBGYN Provider, Histor ical Social History Tobacco Use Types Packs/Day Years Used Date Smoking Tobacco: Never Assessed Sex Assigned at Date Recorded Not on file documented as of this encounter Plan of Treatment Not on filedocumented as of this encounter Visit Diagnoses Not on filedocumented in this encounter
--- OUTSIDE RECORDS SUMMARY | 2022-02-03 23:58 | XMS_ITS | Encounter Summary ---
:1985 Author Organization [facility] Address [address] [place] [address] Care Team Providers Name Role Phone Unavailable [...]
--- OUTSIDE RECORDS SUMMARY | 2022-02-03 23:58 | XMS_ITS | Encounter Summary ---
:1985 Author Organization [facility] Address [address] [place] [address] Care Team Providers Name Role Phone Unavailable Primary Care Provider Unavailable Encounter Details Date Type Department Care Team Description 03/05/2014 Hospital Encounter HX [facility] ED Maite Sterling M. D. [address] [place], [place] [address] (Wo rk) Social History Tobacco Use Types Packs/Day Years Used Date Smoking Tobacco: Never Assessed Sex Assigned at Date Recorded Not on file documented as of this encounter Last Filed Vital Signs Vital Sign Reading Time Taken Comments Blood Pressure 140/83 03/05/2014 12:56 AM GLASS FITTER Pulse 97 03/05/2014 12:56 AM GLASS FITTER Temperature - - Respiratory Rate 18 03/05/2014 12:56 AM GLASS FITTER Oxygen Saturation - - Inhaled Oxygen Concentration - - Weight - - Height - - Body Mass Index - - documented in this encounter Discharge Summaries Valentina Jurado RJonathan. - 03/05/2014 2:11 AM CST ED Discharge Instructions [facility] [address] [place] [address] Name: SILVIA STEELE Date of : 1985 12:00 AM Visit Date: 03/05/2014 12:51 AM [facility] Number: [id number] Address: [address] [place] [address] Primary Care Provider: PCP, DAVISSSMANE - YADIRA IMPORTANT: [facility] in [place] would like to thank you for allowing us to assist youwith your healthcare needs. The following includes patient education materials and information regarding your injury/illness. Diagnosis: Otitis Media (OM) L; Otitis Media (OM) R Follow-Up Instructions: With: Address: When: UNASSIGNED - PCP Within 1 - 2 weeks, only if needed Comments: For recheck Call for follow up appointment Your Upcoming Appointments: Date Time Location Provider No Appointments found Patient Education Materials: [id number] MIDDLE EAR INFECTION (Adult) You have an infection of the middle ear (the space behind the eardrum). It can occur as a result of the common cold. This is because congestion can block the internal passage (eustachian tube) that drains fluid from the middle ear. When the middle ear fills with fluid, bacteria can grow there and cause an infection. Oral antibiotics are used to treat this illness, not ear drops. Symptoms usually start to improve within 1-2 days of treatment. HOME CARE: ?? Finish all of the antibiotic medicine prescribed, even though you may feel better after the firstfew days. ?? You may use acetaminophen (Tylenol) or ibuprofen (Motrin, Advil) to control pain, unless something else was prescribed. [NOTE: If you have chronic liver or kidney disease or have ever had a stomach ulcer or GI bleeding, talk with your doctor before using these medicines.] (Do not give aspirin to anyone under 18 years of age who is ill with a fever. It may cause severe liver damage.) FOLLOW UP with your doctor or this facility in two weeks if all symptoms have not cleared, or if hearing does not return to normal within one month. GET PROMPT MEDICAL ATTENTION if any of the following occur: ?? Ear pain gets worse or does not improve after three days of treatment ?? Unusual drowsiness or confusion ?? Neck pain, stiff neck or headache ?? Fluid or blood draining from the ear canal ?? Fever of 100.4??F (38??C) or higher after 3 days of antibiotics, or as directed by your healthcare provider Convulsion (seizure) ?? [id number] Lennie [facility], [address] [place] [address], [place] [address]. All rights reserved. This information is not intended as a substitute for professional medical care. Always follow your healthcare professional's instructions. ED Tests and Procedures: Order Status Discharge Prescriptions & Home Medications: Medication/Strength Dose Route Frequency Indications/Special Instructions/Comments/Notes acetaminophen-codeine (Tylenol with Codeine #3 oral tablet) 1 to 2 tablets Oral every 4 hours as needed for Pain No more than 4,000mg acetaminophen/24hrs antipyrine-benzocaine otic (Auralgan Otic Solution) 4 drop(s) Ears (Both) four times a day as neededfor Pain amoxicillin-clavulanate (Augmentin 875 mg-125 mg oral tablet) 1 tab(s) Oral two times a day for 10 Days magnesium citrate (Citrate of Magnesia 1.745 g/30 [...] document has images extracted. Please consider using [employer] for all your patient education needs. Source: [facility] POWERCHART Document Id: [id number] S FITTER Valentina Jurado R.N. - 03/05/2014 2:11 AM CST ED Depart Summary [facility] Emergency Department / Urgent Care Clinical Discharge Summary PERSON INFORMATION Name SILVIA STEELE Age 28 Years 1985 12:00 AM Sex Female Language Danish PCP PCP, UNASSIGNED - AU Marital Status Single Visit Id Visit Reason Ear pain; EAR PAIN Specialty Enc Type Emergency Med Service Emergency Medicine Referred by Track Group [facility] ED/UC Discharge 03/05/2014 2:11 AM Tracking Id [id number] Checkout 03/05/2014 2:11 AM Checkin 03/05/2014 12:51 AM Acuity 5 -Non Urgent Dispo Type * Discharged to Home or Self Care Arrival 03/05/2014 12:51 AM Reg Status Complete LOS 000 01:20 Address: [address] [place] [address] Comment: PROVIDER INFORMATION Provider Role Provider Contact Time VALENTINA JURADO RN ED Nurse 03/05/14 00:58 MAITE STERLING MD ED Provider 03/05/14 01:14 DIAGNOSIS Otitis Media (OM) L; Otitis Media (OM) R Comment: PATIENT EDUCATION INFORMATION Instructions: OTITIS MEDIA, Abx Tx (Adult) Follow up: With: Address: When: UNASSIGNED - AU PCP Within 1 - 2 weeks, only if needed Comments: For recheck Call for follow up appointment Source: [facility] [employer] Document Id: [id number] S FITTER documented in this encounter ED Notes Valentina Jurado REmekaN. - 03/05/2014 2:10 AM CST ED Disposition Summary ED Disposition Summary Entered On: 03/05/2014 2:10 GLASS FITTER Performed On: 03/05/2014 2:10 GLASS FITTER by VALENTINA JURADO RN ED Disposition Summary Accompanied By : Alone Mode of Discharge : Ambulatory Transportation : Private vehicle Discharge From ED With : Home Med List Printed Discharge Instructions Given to Patient : Yes Patient Status at Discharge from ED : Improved VALENTINA JURADO RN - 03/05/2014 2:10 GLASS FITTER Source: [facility] POWERCHART Document Id: [id number] GLASS FITTER!8 S FITTER Valentina Jurado R.N. - 03/05/2014 2:10 AM CST ED Pain Assessment ED Pain Assessment Entered On: 03/05/2014 2:10 GLASS FITTER Performed On: 03/05/2014 2:10 GLASS FITTER by VALENTINA JURADO RN Pain Assessment Pain Symptoms : Yes VALENTINA JURADO RN - 03/05/2014 2:10 GLASS FITTER Pain Pain Assessment Grid Pain 1 Location : Ear Laterality : Right Intensity : 5 VALENTINA JURADO RN - 03/05/2014 2:10 GLASS FITTER Source: [facility] [employer] Document Id: [id number] GLASS FITTER!9 S FITTER Valentina Jurado R.N. - 03/05/2014 2:04 AM CST ED Nurse Reassess ED Nurse Reassess Entered On: 03/05/2014 2:05 GLASS FITTER Performed On: 03/05/2014 2:04 GLASS FITTER by VALENTINA JURADO RN Pain Assessment Pain Symptoms : Yes VALENTINA JURADO RN - 03/05/2014 2:04 GLASS FITTER Pain Pain Assessment Grid Pain 1 Location : Ear Laterality : Right Intensity : 5 VALENTINA JURADO RN - 03/05/2014 2:04 GLASS FITTER EENT Reassess EENT Note : pt feeling much better VALENTINA JURADO RN - 03/05/2014 2:04 GLASS FITTER Source: [facility] [employer] Document Id: [id number] GLASS FITTER!11 S FITTER Maite Sterling M.D. - 03/05/2014 1:14 AM CST Ear pain Patient: SILVIA STEELE Age: 28 years Sex: Female : 1985 Author: MAITE STERLING MD Attachments: None Associated Diagnosis: Otitis Media (OM) L; Otitis Media (OM) R History of Present Illness The patient presents with ear pain. The onset was just prior to arrival. The course/duration of symptoms is constant. Location: Right ear(s). The character of symptoms is pain. The exacerbating factor is none. The relieving factor is none. Risk factors consist of frequent otitis media. Prior episodes:frequent. Therapy today: none. Associated symptoms: denies fever, denies chills, denies nausea, denies vomiting, denies tinnitus, denies dizziness, denies cough and denies rhinorrhea. Review of Systems Constitutional symptoms: No fever or no chills. Respiratory symptoms: No shortness of breath. Cardiovascular symptoms: No chest pain. Neurologic symptoms: No headache. Psychiatric symptoms: No anxiety. Hematologic/Lymphatic symptoms: Bleeding tendency negative. Allergy/immunologic symptoms: No seasonal allergies. Health Status Allergies: Allergic Reactions (Selected) NKA. [...] PowerChart. Cytopathology, slides, cervical or vaginal (the George System); manual screening under physician supervision (00208) in the week of 03/10/2004 at 18 Years. Comments: 04/18/2010 21:45 - CARMEN MORALES Hx: [id number] - LAB-CYTOPATH, SM,D/V,TDS<3SM TECH 03/21/2013 17:41 - Contributor source changed to PowerChart.. Family history: No family history items have been selected or recorded.. Physical Examination Vital Signs: Vital Signs 03/05/2014 0:56 GLASS FITTER Temperature Core 36.7 DegC Peripheral Pulse Rate 97 /min Respiratory Rate 18 /min SpO2 98 % Systolic Blood Pressure 140 mmHg Diastolic Blood Pressure 83 mmHg BP Location Left upper , SpO2 03/05/2014 0:56 GLASS FITTER SpO2 98 % . General: Alert and mild distress. Ears, nose, mouth and throat: Tympanic membrane: Moderate, erythema, opaque, bulging, loss of landmarks. Neck: Supple, trachea midline and no tenderness. Cardiovascular: Regular rate and rhythm, No murmur and Normal peripheral perfusion. Respiratory: Lungs are clear to auscultation and respirations are non-labored. Neurological: Alert and oriented to person, place, time, and situation and No focal neurological deficit observed. Medical Decision Making Differential Diagnosis:Otitis media, otitis externa. OrdersLaunch Orders Pharmacy: Toradol (Order Processing): 60 mg, IM, Once, Launch Orders Pharmacy: Augmentin 875 mg-125 mg oral tablet (Order Processing): 1 tab(s), PO, Once. Reexamination/ Reevaluation Course: unchanged. Pain status: decreased. Impression and Plan Diagnosis Otitis Media (OM) L (Discharge, Emergency medicine, Medical) Otitis Media (OM) R (Discharge, Emergency medicine, Medical) Plan Condition: Stable. Disposition: Discharged: to home. Prescriptions: Prescription [facility]r Pharm[facility]: Tylenol with Codeine #3 oral tablet (Prescribe): 1 to 2 tablets, PO, q4hr, 12 tab(s), PRN, Pain Auralgan Otic Solution (Prescribe): 4 drop(s), Ears (Both), 4xDay, 10 mL, PRN, Pain Augmentin 875 mg-125 mg oral tablet (Prescribe): 1 tab(s), PO, 2xDay, 20 tab(s). Patient was given the following educational materials: OTITIS MEDIA, Abx Tx (Adult). Follow up with: UNASSIGNED - PCP Within 1 - 2 weeks, only if needed For recheck Call for follow up appointment. Counseled: Patient. Electronically Signed By: MAITE STERLING MD On: 03/05/2014 01:56 AM Modified by and Electronically Signed by: MAITE STERLING MD On: 03/05/2014 01:19 AM Source: [facility] POWERCHART Document Id: [id number]} S FITTER Valentina Jurado R.N. - 03/05/2014 1:03 AM CST ED Primary Assessment Document Has Been Updated ED Primary Assessment Entered On: 03/05/2014 1:19 GLASS FITTER Performed On: 03/05/2014 1:03 GLASS FITTER by VALENTINA JURADO RN Reason For Visit (As Of: 03/05/2014 01:19:50 GLASS FITTER) Problems(Active) No Chronic Problems (Cerner :NKP ) Name of Problem: No Chronic Problems ; Recorder: NATY XIE MD; Confirmation: Confirmed ; Classification: Medical ; Code: NKP ; Last Updated: 05/15/2013 16:30 GLASS FITTER; Life Cycle Date: 05/15/2013 ; Life Cycle Status: Active ; Vocabulary: Cerner Diagnoses(Active) Ear pain Date: 03/05/2014 ; Diagnosis Type: Reason For Visit ; Confirmation: Complaint of ; ClinicalDx: Ear pain ; Classification: Medical ; Clinical Service: Emergency medicine ; Code: PNED ; Probability: 0 ; Diagnosis Code: [id number] Triage Chief Complaint Description : pt arrives with c/o sudden onset of right ear pain. Information Given By : Patient Mode of Arrival ED : Private vehicle Track : Medical Languages : Danish Treatments Prior to Arrival : None Are you ? : No Is Patient Female and 13-50 no hysterectomy : Yes Status : Patient denies VALENTINA JURADO RN - 03/05/2014 1:03 GLASS FITTER Pain Assessment Pain Symptoms : Yes VALENTINA JURADO RN - 03/05/2014 1:03 GLASS FITTER Pain Pain Assessment Grid Pain 1 Location : Ear Laterality : Right Intensity : 10 VALENTINA JURADO RN - 03/05/2014 1:03 GLASS FITTER DENNY DCP GENERIC CODE Tracking Acuity : 5 -Non Urgent Tracking Group : AU ED/ VALENTINA JURADO RN - 03/05/2014 1:03 GLASS FITTER Allergy (As Of: 03/05/2014 01:19:50 GLASS FITTER) Allergies (Active) NKA Estimated Onset Date: Unspecified ; Created By: KATIE BRUNNER MD; Reaction Status: Active ; Category: Drug ; Substance: NKA ; Type: Allergy ; Updated By: KATIE BRUNNER MD; Reviewed Date: 03/05/2014 1:19 GLASS FITTER ID Screen Travel Within Last 21 Days : No VALENTINA JURADO RN - 03/05/2014 1:03 GLASS FITTER Respiratory Airway : Patent Respirations : Unlabored Respiratory Pattern : Regular VALENTINA JURADO RN - 03/05/2014 1:03 GLASS FITTER Cardiovascular Heart Rhythm : Regular Skin Color : Normal for ethnicity Skin Description : Dry Skin Temperature : Warm VALENTINA JURADO RN - 03/05/2014 1:03 GLASS FITTER Neurological Last Well Time Known : Not applicable Level of Consciousness : Alert Orientation : Oriented x 3 Characteristics of Speech : Clear VALENTINA JURADO RN - 03/05/2014 1:03 GLASS FITTER ED Psychosocial Affect/Behavior : Calm, Cooperative, Appropriate Domestic Abuse Concerns : None VALENTINA JURADO RN - 03/05/2014 1:03 GLASS FITTER Gastrointestinal Nutrition ED : Adequate VALENTINA JURADO RN - 03/05/2014 1:03 GLASS FITTER Musculoskeletal Fall Prevention Education Provided : Yes VALENTINA JURADO RN - 03/05/2014 1:03 GLASS FITTER EENT EENT Ear Grid Ear, Right Symptoms : Pain VALENTINA JURADO RN - 03/05/2014 1:03 GLASS FITTER Social Habits Tobacco Use/Currently Using : No Exposure to Tobacco Smoke : Patient smokes, Other: occ alcohol Smoking Status : Never smoker VALENTINA JURADO RN - 03/05/2014 1:03 GLASS FITTER Source: [facility] POWERCHART Document Id: [id number] GLASS FITTER!54 S FITTER documented in this encounter Miscellaneous Notes Miscellaneous - Valentina Jurado R.N. - 03/05/2014 2:10 AM CST Valuables/Belongings Valuables/Belongings Entered On: 03/05/2014 2:10 GLASS FITTER Performed On: 03/05/2014 2:10 GLASS FITTER by VALENTINA JURADO RN Valuables/Belongings Valuables/Belongings Grid Valuables with Patient Clothes, Patient Valuables : Coat, Pants, Shirt, Shoes VALENTINA JURADO RN - 03/05/2014 2:10 GLASS FITTER Source: [facility] POWERCHART Document Id: [id number] GLASS FITTER!5 S FITTER documented in this encounter Plan of Treatment Not on filedocumented as of this encounter Visit Diagnoses Not on filedocumented in this encounter
--- OUTSIDE RECORDS SUMMARY | 2022-02-03 23:58 | XMS_ITS | Encounter Summary ---
:1985 Author Organization [facility] Address [address] [place] [address] Care Team Providers Name Role Phone Unavailable Primary Care Provider Unavailable Encounter Details Date Type Department Care Team Description 04/05/2013 Hospital Encounter [facility] Amaury Baltazar, P.A.-C. [address] [place] [address] (Wo rk) Social History Tobacco Use Types Packs/Day Years Used Date Smoking Tobacco: Never Assessed Sex Assigned at Date Recorded Not on file documented as of this encounter Last Filed Vital Signs Vital Sign Reading Time Taken Comments Blood Pressure 122/76 04/05/2013 9:37 AM CHEMICAL PRODUCTION TECHNICIAN Pulse 72 04/05/2013 9:37 AM CHEMICAL PRODUCTION TECHNICIAN Temperature - - Respiratory Rate 20 04/05/2013 9:37 AM CHEMICAL PRODUCTION TECHNICIAN Oxygen Saturation - - Inhaled Oxygen Concentration - - Weight 106 kg (233 lb 0.4 oz) 04/05/2013 9:37 AM CHEMICAL PRODUCTION TECHNICIAN Height - - Body Mass Index - - documented in this encounter Progress Notes Amaury Baltazar, P.A.-C. - 04/05/2013 9:27 AM CST [id number] MED DATE: 04/05/2013 Chief Complaint/Reason for Visit Dizzy and lightheaded. History of Present Illness Radha Steele is a 27-year-old female accompanied by her significant other. Today, while working at [employer] approximately 6 a.m., she had abrupt onset of dizziness, lightheadedness, felt weak and shaky. 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 She then experienced sense of very rapid heart rate and nochest pain. No shortness of breath. She did describe some tingling with her toes. Symptoms have now subsided while here at the clinic, but initially did have a sense of more rapid heart rate; however, on nursing assessment heart rate was 72 beats per minute. She had similar events to this when she was actually occurred multiple times. She recalls an EKG, which was normal, and some type of a home monitor, which showed no abnormalities. She does not recall specifically any lab testing. She attimes has temperature intolerance, is feeling both hotter or colder than other people around her. She does not use tobacco. Very rare use of alcohol. Minimal use of caffeine. After these events did occur, she did have a can of Mountain Dew thinking perhaps she was low on sugar. Further discussion, I do find that she also regularly will skip meals and did not have breakfast this morning, and eats perhaps once a day with more poor food intake. Currently, no shortness of breath. No chest pain. No family history of sudden cardiac events or thyroid abnormalities. Allergies No known me dical allergies. Medications Updated per EMR. Vital Signs Pulse 72 regular, respirations 20 nonlabored, BP 122/76. Weight 106 kg. Height 5 feet 7 inches. Temp36.7. Physical Examination HEENT: Eyes, PERRLA. Sclerae anicteric. Nose and throat clear. Neck: Without lymphadenopathy or thyromegaly. Chest: Lungs are clear to auscultation. Heart: Regular rate and rhythm. Normal S1, S2. No S3, S4, clicks, rubs, gallops, or murmurs. Extremities: Lower extremities without edema. Diagnostics: EKG shows normal sinus rhythm. No ST-T segment changes. CBC normal. Basic metabolic panel is normal; however, potassium is at 3.6 low end of normal and glucose nonfasting is 79. Impression/Report/Plan Questionable cardiac dysrhythmia. Potential for hypoglycemic reaction. Plan: I discussed lab findings with her the fact that she quite often skips meals. Poor food intake certainly would be a marked contributor to her symptoms. I suggested more regular food intake, good source for complex carbohydrates, appropriate proteins and fats have suggested several items for a quick breakfast on the run as she does have 5 children. 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 Increase in potassium rich foods is also recommended. We will not put her on a potassium supplement. We have elected at this point to forgo any further cardiac evaluation unless she experiences additional problems. She agrees with this plan. She is given a work note for excusing work today. I will return tomorrow and follow as needed. Amaury Baltazar PA-C//batsheva #[id number] cc: Electronically Signed By: AMAURY BALTAZAR PA-C On: 11/12/2013 10:32 PM Source: [facility] FSHDICTAPHONESYS Document Id: [id number] documented in this encounter Miscellaneous Notes Miscellaneous - Amaury Baltazar P.A.-C. - 04/06/2013 5:11 PM CST Results Notification Document Contains Addenda Addendum by FRANCES CAR RN on 06 April 2013 17:32:49 CHEMICAL PRODUCTION TECHNICIAN Patient notified From: AMAURY BALTAZAR PA-C To: [facility] Nurse; Sent: 04/06/2013 17:11:19 CHEMICAL PRODUCTION TECHNICIAN Show up: 04/06/2013 17:11:00 CHEMICAL PRODUCTION TECHNICIAN Subject: Results Notification screen only. Thyroid normal. Symptoms most likely diet related. Results: Date Result Name Value Ref Range 04/05/2013 10:19 TSH 1.62 (0.3 - 4.2) Source: [facility] POWERCHART Document Id: [id number] Miscellaneous - Amaury Baltazar P.A.-C. - 04/05/2013 12:07 PM C[place] [address] Visit Information Name: RADHA STEELE [facility] Number: [id number] Visit Date: 04/05/2013 12:07:20 Attending Provider: AMAURY BALTAZAR PA-C Primary Care Provider: PCP, ELSEWHERE RADHA STEELE [...] Take Indications/Special Instructions/Comments/Notes for Patient Medication Changes/Routing Stop Taking the Following Medications: clotrimazole (Clotrimazole) ethinyl estradiol-norgestimate (Norgestimate-Ethinyl Estradiol) Medication list as of 04-05-13 12:07 Attention: If you have any medications at home that are not on this list, DO NOT take them until youcontact your provider for clarification. Give a copy of your medication list to your primary care provider. Update your medication list any time medications or doses are changed and carry your medication list at all times in case of emergency. Additional Information: Source: [facility] POWERCHART Document Id: [id number] ICAL PRODUCTION TECHNICIAN Miscellaneous - Amaury Baltazar P.A.-C. - 04/05/2013 12:07 PM CST [place] [address] Visit Information Name: RADHA STEELE [facility] Number: [id number] Current Date: 04/05/2013 12:07:21 Physicians Attending Provider: AMAURY BALTAZAR PA-C Primary Care Provider: PCP, ELSEWHERE RADHA STEELE [...] Take Indications/Special Instructions/Comments/Notes for Patient Medication Changes/Routing Stop Taking the Following Medications: clotrimazole (Clotrimazole) ethinyl estradiol-norgestimate (Norgestimate-Ethinyl Estradiol) Medication list as of 04-05-13 12:07 Attention: If you have any medications at [...] appointment detail needed. Your Goals/Additional instructions: Source: [facility] POWERCHART Document Id: [id number] ICAL PRODUCTION TECHNICIAN Miscellaneous - Conversion, Historical Provider Ser - 04/05/2013 9:37 AM CHEMICAL PRODUCTION TECHNICIAN Adult Neonatal Intensive Care Nurse Intake/History Adult Neonatal Intensive Care Nurse Intake/History Entered On: 04/05/2013 9:40 CHEMICAL PRODUCTION TECHNICIAN Performed On: 04/05/2013 9:37 CHEMICAL PRODUCTION TECHNICIAN by AMOS HASKINS LPN Intake Chief Complaint : Dizzy / Light headed Temperature Core : 36.7 DegC(Converted to: 98.1 DegF) Peripheral Pulse Rate : 72 /min Respiratory Rate : 20 /min Heart Rhythm : Regular Systolic Blood Pressure : 122 mmHg Diastolic Blood Pressure : 76 mmHg NIBP Mean : 91 mmHg BP Location : Left upper extremity Blood Pressure Cuff Size : Large Actual Weight : 105.7 kg(Converted to: 233 lb 0 oz) Weight Source : Standing scale Dosing Weight Clinic : 105.7 kg AMOS HASKINS LPN - 04/05/2013 9:37 CHEMICAL PRODUCTION TECHNICIAN General Info Information Given By : Patient Preferred Communication Mode : Verbal, Written Languages : Occitan AMOS HASKINS LPN - 04/05/2013 9:37 CHEMICAL PRODUCTION TECHNICIAN Subjective Pain Symptoms : No AMOS HASKINS LPN - 04/05/2013 9:37 CHEMICAL PRODUCTION TECHNICIAN Dependent Habits Tobacco Use/Currently Using : Yes Tobacco Use/Advised to Quit : Yes Exposure to Tobacco Smoke : Patient smokes Smoking Status : Current every day smoker AMOS HASKINS HYDRATION PLANT OPERATOR - 04/05/2013 9:37 CHEMICAL PRODUCTION TECHNICIAN Source: [facility] POWERCHART Document Id: [id number] CHEMICAL PRODUCTION TECHNICIAN!26 documented in this encounter Plan of Treatment Not on filedocumented as of this encounter Procedures Procedure Name Priority Date/Time Associated Diagnosis Comme nts ECG Routine 04/05/2013 10:32 AM Results for this CHEMICAL PRODUCTION TECHNICIAN procedure are i n the results section. CBC WITH Routine 04/05/2013 10:19 AM Results for this DIFFERENTIAL, B CHEMICAL PRODUCTION TECHNICIAN procedure ar e in the results section. THYROID-STIMULATING Routine 04/05/2013 10:19 AM R esults for this HORMONE-SENSITIVE CHEMICAL PRODUCTION TECHNICIAN procedure are in (S-TSH) the results section. BASIC METABOLIC Routine 04/05/2013 10:19 AM Resul ts for this PANEL, S/P CHEMICAL PRODUCTION TECHNICIAN procedure are i n the results section. documented in this encounter Results ECG 12 Lead (04/05/2013 10:32 AM CHEMICAL PRODUCTION TECHNICIAN) Specimen (Source) Anatomical Collection Method Collection Time Re ceived Time Location / / Volume Laterality 04/05/2013 10:32 AM CHEMICAL PRODUCTION TECHNICIAN [facility] - 04/05/2013 10:32 AM CHEMICAL PRODUCTION TECHNICIAN Ventricular Rate: 76 BPM Atrial Rate: 76 BPM P-R Interval: 188 ms QRS Duration: 78 ms Q-T Interval: 390 ms QTC Calculation(Bezet): 438 ms Calculated P Ola: 37 degrees Calculated R Ola: 57 degrees Calculated T Ola: 20 degrees Diagnosis: Normal sinus rhythm Normal ECG No previous ECGs available Confirmed by MD HAIRSTON JOHN ([id number]) on 06/06/2012 12:36:41 PM Referred By: AMAURY BALTAZAR Confirmed By: MD HAIRSTON JOHN Procedure Note Provider, Lupe Villanueva - 09/23/2016F ormatting of this note might be different from the original. Ventricular Rate: 76 BPM Atrial Rate: 76 BPM P-R Interval: 188 ms QRS Duration: 78 ms Q-T Interval: 390 ms QTC Calculation(Bezet): 438 ms Calculated P Ola: 37 degrees Calculated R Ola: 57 degrees Calculated T Ola: 20 degrees Diagnosis: Normal sinus rhythm Normal ECG No previous ECGs available Confirmed by MD HAIRSTON JOHN ([id number]) on 06/06/2012 12:36:41 PM Referred By: AMAURY BALTAZAR Confirmed By: MD HAIRSTON JOHN Surjit Hairston Jr., M.D. ECG ORDERABLES Performing Organization Address City/State/ZIP Code Phon e Number [facility] [address] [place] [id number] CBC with Differential (04/05/2013 10:19 AM CHEMICAL PRODUCTION TECHNICIAN) P athologist Signature Leukocytes 6.7 3.5 - 10.5 [place] X109L [place] Erythrocytes 4.40 3.90 - MIS[place] 5.03 MUL [place] Hemoglobin 13.2 12.0 - [place] 15.5 GDL [place] Hematocrit 38.9 34.9 - [place] 44.5 [place] MCV 88.4 81.6 - [place] 98.3 FL [place] HX RDW 12.9 11.9 - [place] 15.5 [place] Platelet Count 223 150 - 450 [facility] X109L [place] Absolute 4.2 1.7 - 7.0 [place] Neutrophils X109L [place] Lymphocytes 1.8 0.9 - 2.9 [facility] X109L [place] Monocytes 0.4 0.3 - 0.9 [facility] X109L [place] Eosinophils 0.2 0.1 - 0.5 [place] X109L [place] Absolute Basophil 0.0 0.0 - 0.1 [place] X109L [place] Comment: PERFORMED AT [facility] , [address] [place] [id number] Specimen (Source) Anatomical Collection Method Collection Time Re ceived Time Location / / Volume Laterality Blood 04/05/2013 10:19 AM CHEMICAL PRODUCTION TECHNICIAN Amaury Baltazar P.A.-C. LAB BLOOD ADD-ON Performing Organization Address City/State/ZIP Code Phon e Number [facility] [place] [address] [place] [address] [place] BMP (Basic Metabolic Panel) (04/05/2013 10:19 AM CHEMICAL PRODUCTION TECHNICIAN) Patholo gist Method Time Signature Sodium, S 137 136 - 145 [facility] MML [place] Potassium, S 3.6 3.6 - 5.2 [facility] MML [place] Chloride, S 102 98 - 107 [facility] MMOLL [place] HXTOTAL CO2 26 21 - 32 [facility] MMOLL [place] Glucose 79 70 - 139 [facility] MGDL [place] BUN (Blood Urea 15 6 - 20 [place] Nitrogen), S MGDL [place] Creatinine 0.6 0.5 - 1.0 [facility] MGDL [place] Calcium, Total, 9.6 8.6 - MISYS S 10.2 [facility] [place] HXeGFR (MDRD) >80 >80 [facility] [id number] [place] 2 eGFR >80 >80 [place] Black/ [id number] [place] Syrian 2 HXEGFR Note AVERAGE GFR [facility] FOR 18-29 [place] YEARS OLD = 116 ML/MIN/1.73 M2 Comment: CHRONIC KIDNEY DISEASE <60 ML/MIN/1.73M2 KIDNEY FAILURE <15 ML/MIN/1.73M2 THIS ESTIMATED GFR IS CALCULATED FOR JUDIT LTS, 18 AND OLDER, WITH STABLE KIDNEY FUNCTION USING THE RECALIBRATED CREATININE VALUE AND ABBREVIATED MDRD FORMULA. ??PLEASE DIRECT QUESTIONS TO [email or web address] THE GRF RESULT SHOULD NOT BE USED FOR RE NAL DRUG DOSING ADJUSTMENTS ACCORDING TO THE NATIONAL DISEASE EDUCATION PROGRAM. PERFORMED AT [facility], [address] [facility] [address] Specimen (Source) Anatomical Collection Method Collection Time Re ceived Time Location / / Volume Laterality Blood 04/05/2013 10:19 AM CHEMICAL PRODUCTION TECHNICIAN Amaury Baltazar P.A.-C. LAB BLOOD ADD-ON Performing Organization Address City/State/[facility] Phon e Number [facility] [address] [place] [address] [place] Thyroid-Stimulating Hormone-Sensitive (s-TSH) (04/05/2013 10:19 AM CHEMICAL PRODUCTION TECHNICIAN) P athologist Signature TSH 1.62 0.3 - 4.2 [place] (Thyrotropin) Comment: PERFORMED AT [facility], [address] [place] [address] Specimen (Source) Anatomical Collection Method Collection Time Re ceived Time Location / / Volume Laterality Blood 04/05/2013 10:19 AM CHEMICAL PRODUCTION TECHNICIAN Amaury Baltazar P.A.-C. LAB BLOOD ADD-ON Performing Organization Address City/[facility]/ZIP [facility] Phon e Number [place] [address] [place] [address] [place] documented in this encounter Visit Diagnoses Not on filedocumented in this encounter
--- OUTSIDE RECORDS SUMMARY | 2022-02-03 23:58 | XMS_ITS | Encounter Summary ---
:1985 Author Organization [facility] Address [address] [place] [address] Care Team Providers Name Role Phone Unavailable Primary Care Provider Unavailable Encounter Details Date Type Department Care Team Description 09/08/2013 Hospital Encounter HX [facility] [place] Holland Perrin, C.N.P. Social History Tobacco Use Types Packs/Day Years Used Date Smoking Tobacco: Never Assessed Sex Assigned at Date Recorded Not on file documented as of this encounter Last Filed Vital Signs Vital Sign Reading Time Taken Comments Blood Pressure 122/80 09/08/2013 3:16 PM CDT Pulse 105 09/08/2013 3:16 PM CDT Temperature - - Respiratory Rate - - Oxygen Saturation - - Inhaled Oxygen Concentration - - Weight 107 kg (236 lb 12.4 oz) 09/08/2013 3:16 PM CDT Height 169.3 cm (5' 6.65) 09/08/2013 3:16 PM CDT Body Mass Index 37.47 09/08/2013 3:16 PM CDT documented in this encounter Progress Notes Tiera Perrin, C.N.P. - 09/08/2013 3:10 PM CDT [id number] IMPRESSION/REPORT/PLAN Follow up ED visit for yawning. At this time, I do feel that her yawning may be related to anxiety. Patient agrees and is interested in treatment. Prescribed Prozac 10 mg daily. Advised patient to callin 2 weeks if she does not find a benefit, we will increase to 20 mg. Additionally, prescribed Ativan 0.5 mg for patient to take for her acute anxiety attacks in the interim until the Prozac is functioning better for her. Did advise the patient that there may be other factors involved as well especially related to her current GI symptoms and if no improvement noted with the Prozac and increase dose may consider hiatal hernia or other GI issues causing the problem. CHIEF COMPLAINT/REASON FOR VISIT This is a 28-year-old female, who presents today for followup ED visit. HISTORY OF PRESENT ILLNESS Patient presented to the emergency department on September 06, 2013 because of episodes of repeated continuous yawning. Patient states she is able to take a deep breath, but then when she releases the breath,she feels a tightening in her mid chest and then subsequently feels as if she has to constantly yawn. Patient does have a history in the past with her of having a rapid heart rate. She statesshe continues to have that occasionally during her she states she had a 48 hour Holter monitor placed, which did show some episodes of faster heart rates, but they were unsure at that time whether or not it was related to her . Patient states she still continues to feel this fast heart rate occasionally and does feel that sometimes it is related to her yawning sensation. Additionally, patient does have a history of indigestion. In May, she was treated with Prilosec for approximately 2 weeks and then discontinued the Prilosec and states she has not had the symptoms come back. She denies any constipation, diarrhea, or changes in her bowels except for the fact that she says that there seems to be a fatty slimy covering over her bowel movements. It has been new within the past 2 weeks. The patient denies any upper respiratory tract infection symptoms, coughing, wheezing, or true shortness of breath. The patient states she did notice that these episodes of yawning and difficulty releasing her breath happen mostly when she is anxious and nervous. She denies any sore throat at this time. Laboratory work was obtained in the emergency department including a CBC, a D-dimer and BMP all within normal limits. The JODY- 7 score is 12. Patient does feel that she is anxious most of the time. She does feel she worries quite frequently and stated when the storm was coming out, she could worry and focus on storm. She had difficulty focusing and concentrating on anything else, but the fact that the storm was coming. Patient does feel that these anxiety type symptoms have worsened in nature. MEDICATIONS Reconciled and reviewed. ALLERGIES None. SOCIAL HISTORY The patient does smoke, drinks occasional alcohol, cares for five children. VITAL SIGNS: Temperature 37 degrees Celsius, pulse 105, blood pressure 122/80, oxygenation 96% on room air. Height is 169.3 cm. Weight is 107.4 kg. BMI is 37.5. PHYSICAL EXAMINATION CONSTITUTIONAL SYMPTOMS: Patient is pleasant, not in any acute distress. RESPIRATORY: Lungs are clear to auscultation. CARDIOVASCULAR: Heart rate and rhythm is regular. GASTROINTESTINAL: Bowel sounds present x4. ABDOMEN: Soft, tender in the periumbilical and mid epigastric area. No organomegaly or masses palpated. Tiera Perrin R.N., C.N.PEmeka/guillermo Electronically Signed By: TIERA PERRIN CNP On: 09/12/2013 09:19 AM Modified by and Electronically Signed by: TIERA PERRIN CNP On: 09/12/2013 09:19 AM Source: [facility] MHSDOLBEYNCASSIUSSYTanya Document Id: [id number] documented in this encounter Miscellaneous Notes Miscellaneous - Tiera Perrin, C.N.P. - 09/08/2013 3:56 PM CDT JODY-7 JODY-7 Entered On: 09/08/2013 15:57 CDT Performed On: 09/08/2013 15:56 CDT by TIERA PERRIN CNP GAD7 GAD7 Feeling nervous : More than half the days GAD7 Not able to control worry : More than half the days GAD7 Worrying too much : Not at all GAD7 Trouble relaxing : Several days GAD7 Being so restless : Several days GAD7 Becoming easily annoyed : Nearly every day GAD7 Feeling afraid : Nearly every day GAD7 Total Score : 12 TIERA PERRIN CNP - 09/08/2013 15:56 CDT Source: [facility] Bizily Document Id: [id number] CDT!10 Miscellaneous - Dashawn Pereyra L.P.N. 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 Intake/History Entered On: 09/08/2013 15:19 CDT Performed On: 09/08/2013 15:16 CDT by DASHAWN PEREYRA Intake Chief Complaint : ER follow up shortness of breath-can't take a deep breath- Temperature Core : 37 DegC(Converted to: 98.6 DegF) Peripheral Pulse Rate : 105 /min (HI) Systolic Blood Pressure : 122 mmHg Diastolic Blood Pressure : 80 mmHg NIBP Mean : 94 mmHg BP Location : Left upper extremity Blood Pressure Cuff Size : Large SpO2 : 96 % Oxygen Therapy : Room air Height : 169.3 cm(Converted to: 5 ft 7 inch(es), 67 inch(es)) Actual Weight : 107.4 kg(Converted to: 236 lb 12 oz) Weight Source : Standing scale Dosing Weight Clinic : 107.4 kg Clinic BSA : 2.25 Body Mass Index : 37.47 kg/m2 DASHAWN PEREYRA - 09/08/2013 15:16 CDT General Info Information Given By : Patient Languages : Malawian DASHAWN PEREYRA - 09/08/2013 15:16 CDT Subjective Pain Symptoms : No DASHAWN PEREYRA - 09/08/2013 15:16 CDT Dependent Habits Tobacco Use/Currently Using : Yes Tobacco Use/Advised to Quit : Yes Exposure to Tobacco Smoke : Patient smokes, Other: occ alcohol Smoking Status : Current every day smoker Alcohol Use : No DASHAWN PEREYRA - 09/08/2013 15:16 CDT Caffeine Use Grid Caffeine Use : None DASHAWN PEREYRA - 09/08/2013 15:16 CDT Source: [employer] Document Id: [id number] CDT!32 documented in this encounter Plan of Treatment Not on filedocumented as of this encounter Visit Diagnoses Not on filedocumented in this encounter
--- OUTSIDE RECORDS SUMMARY | 2022-02-03 23:58 | XMS_ITS | Encounter Summary ---
:1985 Author Organization [facility] Address [address] [place] [address] Care Team Providers Name Role Phone Unavailable Primary Care Provider Unavailable Encounter Details Date Type Department Care Team Description 09/18/2004 Hospital Encounter HX [facility] Provider, Histor ical Social History Tobacco Use Types Packs/Day Years Used Date Smoking Tobacco: Never Assessed Sex Assigned at Date Recorded Not on file documented as of this encounter Plan of Treatment Not on filedocumented as of this encounter Visit Diagnoses Not on filedocumented in this encounter
--- OUTSIDE RECORDS SUMMARY | 2022-02-03 23:58 | XMS_ITS | Encounter Summary ---
:1985 Author Organization [facility] Address [address] [place] [id number] Care Team Providers Name Role Phone Unavailable Primary Care Provider Unavailable Encounter Details Date Type Department Care Team Description 11/09/2012 Hospital Encounter HX [facility] [facility] [place] Amaury Carbajal, P.A.-C. [address] [place] [address] (Wo rk) Social History Tobacco Use Types Packs/Day Years Used Date Smoking Tobacco: Never Assessed Sex Assigned at Date Recorded Not on file documented as of this encounter Plan of Treatment Not on filedocumented as of this encounter Visit Diagnoses Not on filedocumented in this encounter
--- OUTSIDE RECORDS SUMMARY | 2022-02-03 23:59 | XMS_ITS | Encounter Summary ---
:1985 Author Organization [facility] Address [address] [place] [address] Care Team Providers Name Role Phone Unavailable Primary Care Provider Unavailable Encounter Details Date Type Department Care Team Description 09/09/[address] [facility] ED ProviderLaurie Social History Tobacco Use Types Packs/Day Years Used Date Smoking Tobacco: Never Assessed Sex Assigned at Date Recorded Not on file documented as of this encounter Plan of Treatment Not on filedocumented as of this encounter Visit Diagnoses Not on filedocumented in this encounter
--- OUTSIDE RECORDS SUMMARY | 2022-02-03 23:59 | XMS_ITS | Encounter Summary ---
:1985 Author Organization [facility] Address [address] [place] [address] Care Team Providers Name Role Phone Unavailable Primary Care Provider Unavailable Encounter Details Date Type Department Care Team Description 09/04/2003 Hospital Encounter [facility] Asael Hernandez M.D. Social History Tobacco Use Types Packs/Day Years Used Date Smoking Tobacco: Never Assessed Sex Assigned at Date Recorded Not on file documented as of this encounter Plan of Treatment Not on filedocumented as of this encounter Visit Diagnoses Not on filedocumented in this encounter
--- OUTSIDE RECORDS SUMMARY | 2022-02-03 23:59 | XMS_ITS | Encounter Summary ---
:1985 Author Organization [facility] Address [address] [place] [address] Care Team Providers Name Role Phone Unavailable Primary Care Provider Unavailable Encounter Details Date Type Department Care Team Description 01/28/2004 Hospital Encounter [facility] Surjit Rai M.D. Social History Tobacco Use Types Packs/Day Years Used Date Smoking Tobacco: Never Assessed Sex Assigned at Date Recorded Not on file documented as of this encounter Plan of Treatment Not on filedocumented as of this encounter Visit Diagnoses Not on filedocumented in this encounter
--- OUTSIDE RECORDS SUMMARY | 2022-02-03 23:59 | XMS_ITS | Encounter Summary ---
:1985 Author Organization [facility] Address [address] [place] [address] Care Team Providers Name Role Phone Unavailable Primary Care Provider Unavailable Encounter Details Date Type Department Care Team Description 12/26/2003 Hospital Encounter [facility] Alice Goncalves, N.P., R.N. [address] [place], [place] [address] (Wo rk) Social History Tobacco Use Types Packs/Day Years Used Date Smoking Tobacco: Never Assessed Sex Assigned at Date Recorded Not on file documented as of this encounter Plan of Treatment Not on filedocumented as of this encounter Visit Diagnoses Not on filedocumented in this encounter
--- OUTSIDE RECORDS SUMMARY | 2022-02-03 23:59 | XMS_ITS | Encounter Summary ---
:1985 Author Organization [facility] Address [address] [place] [address] Care Team Providers Name Role Phone Unavailable Primary Care Provider Unavailable Encounter Details Date Type Department Care Team Description 12/27/2003 Hospital Encounter [facility] Provider, [facility] Social History Tobacco Use Types Packs/Day Years Used Date Smoking Tobacco: Never Assessed Sex Assigned at Date Recorded Not on file documented as of this encounter Plan of Treatment Not on filedocumented as of this encounter Visit Diagnoses Not on filedocumented in this encounter
--- OUTSIDE RECORDS SUMMARY | 2022-02-03 23:59 | XMS_ITS | Encounter Summary ---
:1985 Author Organization [facility] Address [address] [place] [address] Care Team Providers Name Role Phone Unavailable Primary Care Provider Unavailable Encounter Details Date Type Department Care Team Description 11/29/2001 Hospital Encounter [facility] Provider, [facility] Social History Tobacco Use Types Packs/Day Years Used Date Smoking Tobacco: Never Assessed Sex Assigned at Date Recorded Not on file documented as of this encounter Plan of Treatment Not on filedocumented as of this encounter Visit Diagnoses Not on filedocumented in this encounter
--- OUTSIDE RECORDS SUMMARY | 2022-02-03 23:59 | XMS_ITS | Encounter Summary ---
:1985 Author Organization [facility] Address [address] [place] [address] Care Team Providers Name Role Phone Unavailable Primary Care Provider Unavailable Encounter Details Date Type Department Care Team Description 12/09/2002 Hospital Encounter HX [facility] ED ProviderLaurie Social History Tobacco Use Types Packs/Day Years Used Date Smoking Tobacco: Never Assessed Sex Assigned at Date Recorded Not on file documented as of this encounter Plan of Treatment Not on filedocumented as of this encounter Visit Diagnoses Not on filedocumented in this encounter
--- OUTSIDE RECORDS SUMMARY | 2022-02-03 23:59 | XMS_ITS | Encounter Summary ---
:1985 Author Organization [facility] Address [address] [place] [address] Care Team Providers Name Role Phone Unavailable Primary Care Provider Unavailable Encounter Details Date Type Department Care Team Description 07/03/2004 Hospital Encounter [facility] OBGYN Provider, Histor ical Social History Tobacco Use Types Packs/Day Years Used Date Smoking Tobacco: Never Assessed Sex Assigned at Date Recorded Not on file documented as of this encounter Plan of Treatment Not on filedocumented as of this encounter Visit Diagnoses Not on filedocumented in this encounter
--- OUTSIDE RECORDS SUMMARY | 2022-02-03 23:59 | XMS_ITS | Encounter Summary ---
:1985 Author Organization [facility] Address [address] [place] [address] Care Team Providers Name Role Phone Unavailable Primary Care Provider Unavailable Encounter Details Date Type Department Care Team Description 10/28/2002 Hospital Encounter [facility] Provider, Historical [facility] Social History Tobacco Use Types Packs/Day Years Used Date Smoking Tobacco: Never Assessed Sex Assigned at Date Recorded Not on file documented as of this encounter Plan of Treatment Not on filedocumented as of this encounter Visit Diagnoses Not on filedocumented in this encounter
--- OUTSIDE RECORDS SUMMARY | 2022-02-03 23:59 | XMS_ITS | Encounter Summary ---
:1985 Author Organization [facility] Address [address] [place] [address] Care Team Providers Name Role Phone Unavailable Primary Care Provider Unavailable Encounter Details Date Type Department Care Team Description 10/18/2002 Hospital Encounter [facility]X [facility] Ham Gandara, N.P., R.N. [address] [place], [place] [address] (Wo rk) Social History Tobacco Use Types Packs/Day Years Used Date Smoking Tobacco: Never Assessed Sex Assigned at Date Recorded Not on file documented as of this encounter Plan of Treatment Not on filedocumented as of this encounter Visit Diagnoses Not on filedocumented in this encounter
--- OUTSIDE RECORDS SUMMARY | 2022-02-03 23:59 | XMS_ITS | Encounter Summary ---
:1985 Author Organization [facility] Address [address] [place] [address] Care Team Providers Name Role Phone Unavailable Primary Care Provider Unavailable Encounter Details Date Type Department Care Team Description 09/28/2002 Hospital Encounter HX [facility] E David Sandoval M.D. [address] [place] [address] (Wo rk) Social History Tobacco Use Types Packs/Day Years Used Date Smoking Tobacco: Never Assessed Sex Assigned at Date Recorded Not on file documented as of this encounter Plan of Treatment Not on filedocumented as of this encounter Visit Diagnoses Not on filedocumented in this encounter
--- OUTSIDE RECORDS SUMMARY | 2022-02-03 23:59 | XMS_ITS | Encounter Summary ---
:1985 Author Organization [facility] Address [address] [place] [address] Care Team Providers Name Role Phone Unavailable Primary Care Provider Unavailable Encounter Details Date Type Department Care Team Description 07/31/2004 Hospital Encounter [facility] OBGYN Provider, Histor ical Social History Tobacco Use Types Packs/Day Years Used Date Smoking Tobacco: Never Assessed Sex Assigned at Date Recorded Not on file documented as of this encounter Plan of Treatment Not on filedocumented as of this encounter Visit Diagnoses Not on filedocumented in this encounter
--- OUTSIDE RECORDS SUMMARY | 2022-02-03 23:59 | XMS_ITS | Encounter Summary ---
:1985 Author Organization [facility] Address [address] [place] [address] Care Team Providers Name Role Phone Unavailable [...]
--- OUTSIDE RECORDS SUMMARY | 2022-02-03 23:59 | XMS_ITS | Encounter Summary ---
:1985 Author Organization [facility] Address [address] [place] [address] Care Team Providers Name Role Phone Unavailable Primary Care Provider Unavailable Encounter Details Date Type Department Care Team Description 10/04/2002 Hospital Encounter [facility] Alice Goncalves, N.P., R.N. [address] [place], [place] [address] (Wo rk) Social History Tobacco Use Types Packs/Day Years Used Date Smoking Tobacco: Never Assessed Sex Assigned at Date Recorded Not on file documented as of this encounter Plan of Treatment Not on filedocumented as of this encounter Visit Diagnoses Not on filedocumented in this encounter
--- OUTSIDE RECORDS SUMMARY | 2022-02-03 23:59 | XMS_ITS | Encounter Summary ---
:1985 Author Organization [facility] Address [address] [place] [address] Care Team Providers Name Role Phone Unavailable Primary Care Provider Unavailable Encounter Details Date Type Department Care Team Description 06/03/2004 Hospital Encounter [facility] OBGYN Provider, Histor ical Social History Tobacco Use Types Packs/Day Years Used Date Smoking Tobacco: Never Assessed Sex Assigned at Date Recorded Not on file documented as of this encounter Plan of Treatment Not on filedocumented as of this encounter Visit Diagnoses Not on filedocumented in this encounter
--- OUTSIDE RECORDS SUMMARY | 2022-02-03 23:59 | XMS_ITS | Encounter Summary ---
:1985 Author Organization [facility] Address [address] [place] [address] Care Team Providers Name Role Phone Unavailable Primary Care Provider Unavailable Encounter Details Date Type Department Care Team Description 01/15/2004 Hospital Encounter [facility] Nicole Hill M.D. [address] [place] [id number] (Wo rk) Social History Tobacco Use Types Packs/Day Years Used Date Smoking Tobacco: Never Assessed Sex Assigned at Date Recorded Not on file documented as of this encounter Plan of Treatment Not on filedocumented as of this encounter Visit Diagnoses Not on filedocumented in this encounter
--- OUTSIDE RECORDS SUMMARY | 2022-02-03 23:59 | XMS_ITS | Encounter Summary ---
:1985 Author Organization [facility] Address [address] [place] [address] Care Team Providers Name Role Phone Unavailable Primary Care Provider Unavailable Encounter Details Date Type Department Care Team Description 07/15/2004 Hospital Encounter [facility] OBGYN Provider, Histor ical Social History Tobacco Use Types Packs/Day Years Used Date Smoking Tobacco: Never Assessed Sex Assigned at Date Recorded Not on file documented as of this encounter Plan of Treatment Not on filedocumented as of this encounter Visit Diagnoses Not on filedocumented in this encounter
--- OUTSIDE RECORDS SUMMARY | 2022-02-03 23:59 | XMS_ITS | Encounter Summary ---
:1985 Author Organization [facility] Address [address] [place] [address] Care Team Providers Name Role Phone Unavailable Primary Care Provider Unavailable Encounter Details Date Type Department Care Team Description 03/10/2004 Hospital Encounter [facility]BG[facility] Provider, Histor ical Social History Tobacco Use Types Packs/Day Years Used Date Smoking Tobacco: Never Assessed Sex Assigned at Date Recorded Not on file documented as of this encounter Plan of Treatment Not on filedocumented as of this encounter Visit Diagnoses Not on filedocumented in this encounter
--- OUTSIDE RECORDS SUMMARY | 2022-02-03 23:59 | XMS_ITS | Encounter Summary ---
:1985 Author Organization [facility] Address [address] [place] [address] Care Team Providers Name Role Phone Unavailable Primary Care Provider Unavailable Encounter Details Date Type Department Care Team Description 03/16/2002 Hospital Encounter [facility] Provider, Historical [facility] Social History Tobacco Use Types Packs/Day Years Used Date Smoking Tobacco: Never Assessed Sex Assigned at Date Recorded Not on file documented as of this encounter Plan of Treatment Not on filedocumented as of this encounter Visit Diagnoses Not on filedocumented in this encounter
--- OUTSIDE RECORDS SUMMARY | 2022-02-03 23:59 | XMS_ITS | Encounter Summary ---
:1985 Author Organization [facility] Address [address] [place] [address] Care Team Providers Name Role Phone Unavailable Primary Care Provider Unavailable Encounter Details Date Type Department Care Team Description 12/25/2003 Hospital Encounter [facility] Provider, Historical [facility] Social History Tobacco Use Types Packs/Day Years Used Date Smoking Tobacco: Never Assessed Sex Assigned at Date Recorded Not on file documented as of this encounter Plan of Treatment Not on filedocumented as of this encounter Visit Diagnoses Not on filedocumented in this encounter
--- OUTSIDE RECORDS SUMMARY | 2022-02-03 23:59 | XMS_ITS | Encounter Summary ---
:1985 Author Organization [facility] Address [address] [place] [address] Care Team Providers Name Role Phone Unavailable Primary Care Provider Unavailable Encounter Details Date Type Department Care Team Description 06/25/2004 Hospital Encounter [facility] Provider, Historic al Social History Tobacco Use Types Packs/Day Years Used Date Smoking Tobacco: Never Assessed Sex Assigned at Date Recorded Not on file documented as of this encounter Plan of Treatment Not on filedocumented as of this encounter Visit Diagnoses Not on filedocumented in this encounter
--- OUTSIDE RECORDS SUMMARY | 2022-02-03 23:59 | XMS_ITS | Encounter Summary ---
:1985 Author Organization [facility] Address [address] [place] [address] Care Team Providers Name Role Phone Unavailable Primary Care Provider Unavailable Encounter Details Date Type Department Care Team Description 10/04/2002 Hospital Encounter [facility] Alice Goncalves, N.P., R.N. [address] [place], [place] [address] (Wo rk) Social History Tobacco Use Types Packs/Day Years Used Date Smoking Tobacco: Never Assessed Sex Assigned at Date Recorded Not on file documented as of this encounter Plan of Treatment Not on filedocumented as of this encounter Visit Diagnoses Not on filedocumented in this encounter
--- OUTSIDE RECORDS SUMMARY | 2022-02-03 23:59 | XMS_ITS | Encounter Summary ---
:[address] [facility] Address [address] [place] [address] Care Team Providers Name Role Phone Unavailable Primary Care Provider Unavailable Encounter Details Date Type Department Care Team Description 07/08/2004 Hospital Encounter [facility] Provider, Historical [facility] Social History Tobacco Use Types Packs/Day Years Used Date Smoking Tobacco: Never Assessed Sex Assigned at Date Recorded Not on file documented as of this encounter Plan of Treatment Not on filedocumented as of this encounter Visit Diagnoses Not on filedocumented in this encounter
--- OUTSIDE RECORDS SUMMARY | 2022-02-03 23:59 | XMS_ITS | Encounter Summary ---
:1985 Author Organization [facility] Address [address] [place] [address] Care Team Providers Name Role Phone Unavailable Primary Care Provider Unavailable Encounter Details Date Type Department Care Team Description 02/08/2002 Hospital Encounter [facility] Provider, Historical [facility] Social History Tobacco Use Types Packs/Day Years Used Date Smoking Tobacco: Never Assessed Sex Assigned at Date Recorded Not on file documented as of this encounter Plan of Treatment Not on filedocumented as of this encounter Visit Diagnoses Not on filedocumented in this encounter
--- OUTSIDE RECORDS SUMMARY | 2022-02-03 23:59 | XMS_ITS | Encounter Summary ---
:1985 Author Organization [facility] Address [address] [place] [address] Care Team Providers Name Role Phone Unavailable Primary Care Provider Unavailable Encounter Details Date Type Department Care Team Description 01/15/2004 Hospital Encounter [facility] [place] Kimmy Beth, A.R.N.P., R.N. [address] [place] [address] (Wo rk) Social History Tobacco Use Types Packs/Day Years Used Date Smoking Tobacco: Never Assessed Sex Assigned at Date Recorded Not on file documented as of this encounter Plan of Treatment Not on filedocumented as of this encounter Visit Diagnoses Not on filedocumented in this encounter
--- OUTSIDE RECORDS SUMMARY | 2022-02-03 23:59 | XMS_ITS | Encounter Summary ---
:1985 Author Organization [facility] Address [address] [place] [address] Care Team Providers Name Role Phone Unavailable Primary Care Provider Unavailable Encounter Details Date Type Department Care Team Description 01/30/2004 Hospital Encounter [facility] PATIENT E Provider, Ángel casiano Social History Tobacco Use Types Packs/Day Years Used Date Smoking Tobacco: Never Assessed Sex Assigned at Date Recorded Not on file documented as of this encounter Plan of Treatment Not on filedocumented as of this encounter Visit Diagnoses Not on filedocumented in this encounter
--- OUTSIDE RECORDS SUMMARY | 2022-02-03 23:59 | XMS_ITS | Encounter Summary ---
:1985 Author Organization [facility] Address [address] [place] [address] Care Team Providers Name Role Phone Unavailable Primary Care Provider Unavailable Encounter Details Date Type Department Care Team Description 04/07/2004 Hospital Encounter [facility] OBGYN Provider, Histor ical Social History Tobacco Use Types Packs/Day Years Used Date Smoking Tobacco: Never Assessed Sex Assigned at Date Recorded Not on file documented as of this encounter Plan of Treatment Not on filedocumented as of this encounter Visit Diagnoses Not on filedocumented in this encounter
--- OUTSIDE RECORDS SUMMARY | 2022-02-03 23:59 | XMS_ITS | Encounter Summary ---
:1985 Author Organization [facility] Address [address] [place] [address] Care Team Providers Name Role Phone Unavailable Primary Care Provider Unavailable Encounter Details Date Type Department Care Team Description 05/07/2004 Hospital Encounter [facility] Provider, Histor ical Social History Tobacco Use Types Packs/Day Years Used Date Smoking Tobacco: Never Assessed Sex Assigned at Date Recorded Not on file documented as of this encounter Plan of Treatment Not on filedocumented as of this encounter Visit Diagnoses Not on filedocumented in this encounter
--- OUTSIDE RECORDS SUMMARY | 2022-02-03 23:59 | XMS_ITS | Encounter Summary ---
:1985 Author Organization [facility] Address [address] [place] [address] Care Team Providers Name Role Phone Unavailable Primary Care Provider Unavailable Encounter Details Date Type Department Care Team Description 07/04/2004 Hospital Encounter [facility] Provider, His torical Social History Tobacco Use Types Packs/Day Years Used Date Smoking Tobacco: Never Assessed Sex Assigned at Date Recorded Not on file documented as of this encounter Plan of Treatment Not on filedocumented as of this encounter Visit Diagnoses Not on filedocumented in this encounter
--- OUTSIDE RECORDS SUMMARY | 2022-02-03 23:59 | XMS_ITS | Encounter Summary ---
:1985 Author Organization [facility] Address [address] [place] [address] Care Team Providers Name Role Phone Unavailable Primary Care Provider Unavailable Encounter Details Date Type Department Care Team Description 06/25/2004 Hospital Encounter [facility] Provider, Histor ical Social History Tobacco Use Types Packs/Day Years Used Date Smoking Tobacco: Never Assessed Sex Assigned at Date Recorded Not on file documented as of this encounter Plan of Treatment Not on filedocumented as of this encounter Visit Diagnoses Not on filedocumented in this encounter
== END 2022-02-04 00:07 | disposition home or self-care (01) ==
LOC: ED 23:54
PROVIDERS: Emergency Provider Family Medicine
DX: M25.561 Pain in right knee (principal); W10.9XXA Fall (on) (from) unspecified stairs and steps, initial encounter
CPT/HCPCS: 73562; 99283; 99284

== ENCOUNTER 2022-02-12 14:26 | Outpatient (CLI) | payer OTHER, SELFPAY ==
--- OUTSIDE RECORDS SUMMARY | 2022-02-12 14:28 | XMS_ITS | Encounter Summary ---
:1985 Author Organization [facility] Address [address] [place] [id number] Care Team Providers Name Role Phone Unavailable Primary Care Provider Unavailable Encounter Details Date Type Department Care Team Description 06/21/2016 - Hospital Encounter HX [facility] Gayle linares 06/22/2016 MED/SRG/PD Holland M.D., Ph.D. [address] [place] [address] Social History Tobacco Use Types Packs/Day Years Used Date Smoking Tobacco: Every Day Sex Assigned at Date Recorded Not on file documented as of this encounter Last Filed Vital Signs Vital Sign Reading Time Taken Comments Blood Pressure 111/58 06/22/2016 10:01 PM PAY CLERK Pulse 81 06/22/2016 10:01 PM PAY CLERK Temperature - - Respiratory Rate 16 06/22/2016 10:01 PM PAY CLERK Oxygen Saturation - - Inhaled Oxygen Concentration - - Weight - - Height 170 cm (5' 6.93) 06/22/2016 10:01 PM PAY CLERK Body Mass Index - - documented in this encounter Discharge Summaries Warren Santos, R.N. - 06/22/2016 11:44 PM CST Discharge Summary Discharge Summary Entered On: 06/22/2016 23:47 PAY CLERK Performed On: 06/22/2016 23:44 PAY CLERK by WARREN SANTOS RN DC Information Discharged to : Home independently Current Home Treatments : None Home Equipment : None Professional Skilled Services : None Special Services and Community Resources : None Mode of Discharge : Wheelchair Discharge Transportation : Private vehicle Accompanied By : Nurse Date/Time of Discharge : 06/22/2016 23:05 PAY CLERK WARREN SANTOS RN - 06/22/2016 23:44 PAY CLERK Education General Patient Education Powergrid Topics : Medication dosage, route, scheduling, Plan of care, Safety, fall Individuals Taught : Patient, Spouse Barriers to Learning : None evident Teaching Method : Explanation Teaching Evaluation : Verbalizes understanding WARREN SANTOS RN - 06/22/2016 23:44 PAY CLERK Valuables/Belongings Valuables/Belongings Grid Valuables at Bedside Clothes, Patient Valuables : Coat, Pants, Shirt, Shoes, Slippers, Undergarments Electronic Devices : Cell phone, Other: cell manager urgent care Jewelry : Bracelet, Rings, Wedding band Miscellaneous : Games, Toys WARREN SANTOS RN - 06/22/2016 23:44 PAY CLERK Belongings Sent Home With : patient and patient spouse WARREN SANTOS RN - 06/22/2016 23:44 PAY CLERK Source: [facility] POWERCHART Document Id: [id number] PAY CLERK!27 CLERK Gayle Camarena M.D., Ph.D. - 06/22/2016 12:00 AM CST [id number] ADMISSION DATE: 06/21/2016 DISCHARGE DATE: 06/22/2016 ADMITTING [...] Gayle Camarena M.D., Ph.D./aos Electronically Signed By: GALYE CAMARENA MD, PhD On: 07/06/2016 04:44 PM Source: [facility] MHSDOLBEYNONRADSYS Document Id: [id number] CLERK Dayan Salas R.N. - 06/21/2016 10:54 AM CST [place] [address] Name: SILVIA BLANCHARD Date of : 1985 12:00 AM Visit Date: 06/21/2016 10:27 AM [facility] Number: [id number] Address: [address] [place] [phone] Primary Care Provider: SOFIE VÁZQUEZ MD IMPORTANT: [facility] in [place] would like to thank you for allowing [...] if you dont have one. Go to [email or web address] and click on Create Your Account. Then, follow the directions to complete the online form. Youll be asked for your [facility] number which you can find at [...] a ride home with a responsible republican. Sylvia, SILVIA BLANCHARD , or responsible republican have received this information and my questions have been answered. I have discussed any challenges I see with this plan with the nurse or physician. Patient Signature or Responsible Green Party/Relationship Date Time Provider Signature Date Time Source: [facility] ERLinkCHART Document Id: [id number] CLERK Dayan Salas R.N. - 06/21/2016 10:54 AM CST ED Depart Summary [facility] Emergency Department / Urgent Care Clinical Discharge Summary PERSON INFORMATION Name SILVIA BLANCHARD Age 31 Years 1985 12:00 AM Sex Female Language Liberian PCP SOFIE VÁZQUEZ MD Marital Status Visit Id Visit Reason SURGERY Specialty Enc Type Day Surgery Med Service Same Day Surgery Referred by Track Group [facility] ED/UC Discharge 06/21/2016 10:54 AM Tracking Id [id number] Checkout 06/21/2016 10:54 AM Checkin 06/21/2016 10:27 AM Acuity Dispo Type Continued Care in Another Location Arrival 06/21/2016 10:27 AM Reg Status Complete LOS 000 00:27 Address: [address] [place] [phone] Comment: PROVIDER INFORMATION Provider Role Provider Contact Time DIAGNOSIS Comment: PATIENT EDUCATION INFORMATION Instructions: Follow up: Source: [facility] Document Id: [id number] CLERK documented in this encounter Medications at Time [...] NANCE PT On: 06/22/2016 07:45 AM Source: [facility] Document Id: [id number] CLERK Gayle Camarena M.D., Ph.D. - 06/22/2016 12:00 AM CST [id number] SUBJECTIVE Mrs. Blanchard slept for a very [...] in the hospital until 2:30 at the [facility] and then we will reassess. The timing [...] MD, PhD On: 07/06/2016 04:44 PM Source: [facility] MHSDOLBEYNONRADSYS Document Id: [id number] CLERK Janett Lynn M.D. - 06/21/2016 2:50 PM [...] 0.25 mL, Intrathecal, Once, Injection, 06/21/16 15:00:00 PAY CLERK, postoperative pain lactated ringers 1,000 mL, 100 mL/hr, IV, 06/21/16 11:22:00 PAY CLERK morphine, 2 mg = 1 mL, IV Push, q2min, PRN Pain, Injection, 06/21/16 13:44:00 PAY CLERK, 2 HR morphine, 200 mcg = 0.4 mL, Intrathecal, Once, Solution, 06/21/16 15:00:00 PAY CLERK, post operative paincontrol Continuous Pulse Oximetry Elevate Head of Bed Heat Therapy Application [facility] Nursing Task Notify Provider Oxygen Therapy (Provider) Vital Signs Spinal anesthetic provided with preservative free morphine and bupivacaine to break pain cycle. Patient reports she is numb, but still having nonfocal pain of 2-3/10 described as pressure. PROCEDURE NOTE: NAME OF PROCEDURE:Spinal anesthetic for Post operative pain FACILITY: [facility] SURGEON: Janett Lynn M.D. DENTAL HYGIENE PROFESSOR: Yun Huddleston CRNA DIAGNOSES: 1. Perianal and [...] The patient was seated and supported by law office assistant. SKIN PREPARATION: The skin over the injection site was prepped with ChloraPrep and draped with sterile towels. Electronically Signed By: JANETT LYNN MD On: 06/21/2016 08:34 PM Source: [facility] [email or web address] Document Id: [id number] CLERK documented in this encounter H&P Notes Gayle [...] MD, PhD On: 07/06/2016 04:45 PM Source: [facility] MHSDOLBEYNONRADSYS Document Id: [id number] CLERK documented in this encounter Procedure Notes Viridiana Mckenna R.N. - 06/22/2016 8:00 PM CST Pulse Oximetry Pulse Oximetry Entered On: 06/22/2016 23:34 PAY CLERK Performed On: 06/22/2016 20:00 PAY CLERK by VIRIDIANA MCKENNA RN Pulse Oximetry SpO2 : 96 % Oxygen Saturation Monitoring Frequency : Continuous VIRIDIANA MCKENNA RN - 06/22/2016 23:34 PAY CLERK Source: [facility] Document Id: [id number] PAY CLERK!4 CLERK Viridiana Mckenna R.N. - 06/22/2016 4:00 PM CST Pulse Oximetry Pulse Oximetry Entered On: 06/22/2016 20:16 PAY CLERK Performed On: 06/22/2016 16:00 PAY CLERK by VIRIDIANA MCKENNA RN Pulse Oximetry SpO2 : 96 % Oxygen Saturation Monitoring Frequency : Continuous VIRIDIANA MCKENNA RN - 06/22/2016 20:16 PAY CLERK Source: [facility] Document Id: [id number] PAY CLERK!4 CLERK Viridiana Mckenna R.N. - 06/22/2016 12:00 PM CST Pulse Oximetry Pulse Oximetry Entered On: 06/22/2016 19:55 PAY CLERK Performed On: 06/22/2016 12:00 PAY CLERK by VIRIDIANA MCKENNA RN Pulse Oximetry SpO2 : 97 % Oxygen Saturation Monitoring Frequency : Continuous VIRIDIANA MCKENNA RN - 06/22/2016 19:55 PAY CLERK Source: [facility] Document Id: [id number] PAY CLERK!4 CLERK Joana Kerr R.N. - 06/22/2016 4:00 AM CST Pulse Oximetry Pulse Oximetry Entered On: 06/22/2016 4:22 PAY CLERK Performed On: 06/22/2016 4:00 PAY CLERK by JOANA KERR RN Pulse Oximetry SpO2 : 96 % JOANA KERR RN - 06/22/2016 4:22 PAY CLERK Source: [facility] Document Id: [id number] PAY CLERK!3 CLERK Joana Kerr RDevendra - 06/22/2016 12:00 AM CST Pulse Oximetry Pulse Oximetry Entered On: 06/22/2016 1:49 PAY CLERK Performed On: 06/22/2016 0:00 PAY CLERK by JOANA KERR RN Pulse Oximetry SpO2 : 98 % JOANA KERR RN - 06/22/2016 1:49 PAY CLERK Source: [facility]ink[facility] Document Id: [id number] PAY CLERK!3 CLERK Gris Smith - 06/21/2016 8:35 PM CST Urinary Catheter Insertion/Discontinuation Urinary Catheter Insertion/Discontinuation Entered On: 06/22/2016 2:48 PAY CLERK Performed On: 06/21/2016 20:35 PAY CLERK by GRIS SMITH Urinary Catheter Urinary Catheter Activity Type : Insert Urinary Catheter Insertion Site : Urethral Urinary Catheter Size : 16 Korean Urinary Catheter Type : Indwelling/Continuous Date/Time Catheter Insertion : 06/21/2016 20:35 PAY CLERK Urinary Catheter Balloon Inflation : 10 mL sterile water Urinary Catheter Secured : Tape Urinary Catheter Drainage System : Dependent drainage bag Urinary Catheter Procedure Response : Expected Urinary Catheter Procedure Tolerance : Good Urinary Catheter Comment : Bladder scan showed >890. Initial output was 1,025. GRIS SMITH - 06/22/2016 2:46 PAY CLERK Source: [facility] Document Id: [id number] PAY CLERK!13 CLERK Gris Smith - 06/21/2016 8:25 PM CST Bladder Scan Bladder Scan Entered On: 06/22/2016 0:19 PAY CLERK Performed On: 06/21/2016 20:25 PAY CLERK by GRIS SMITH Bladder Scan Void Prior to Bladder Scan : No Bladder Distention : Present Patient States Need to Void : Yes Position During Bladder Scan : Supine Bladder Scan Volume : 890 mL GRIS SMITH - 06/22/2016 0:18 PAY CLERK Source: [facility] Document Id: [id number] PAY CLERK!7 CLERK Joana Kerr, R.N. - 06/21/2016 8:00 PM CST Pulse Oximetry Pulse Oximetry Entered On: 06/21/2016 21:43 PAY CLERK Performed On: 06/21/2016 20:00 PAY CLERK by JOANA KERR RN Pulse Oximetry SpO2 : 98 % JOANA KERR RN - 06/21/2016 21:43 PAY CLERK Source: [facility] Document Id: [id number] PAY CLERK!3 CLERK Toribio Cooley R.N. - 06/21/2016 5:10 PM CST Urinary Catheter Insertion/Discontinuation Urinary Catheter Insertion/Discontinuation Entered On: 06/21/2016 17:19 PAY CLERK Performed On: 06/21/2016 17:10 PAY CLERK by TORIBIO COOLEY RN Urinary Catheter Urinary Catheter Type : Straight/Intermittent Urinary Catheter Procedure Response : Expected Urinary Catheter Procedure Tolerance : Good Urinary Catheter Comment : see PN TORIBIO COOLEY RN - 06/21/2016 17:18 PAY CLERK Source: [facility] Document Id: [id number] PAY CLERK!6 CLERK Dash Romo R.N. - 06/21/2016 11:56 AM CST Preprocedure Checklist Preprocedure Checklist Entered On: 06/21/2016 11:37 PAY CLERK Performed On: 06/21/2016 11:56 PAY CLERK by DASH ROMO RN Checklist Last Fluid Intake : 06/21/2016 9:45 PAY CLERK Last Food Intake : 06/20/2016 23:00 PAY CLERK DASH ROMO RN - 06/21/2016 11:32 PAY CLERK Surgery Prep Grid Contacts/Glasses Removed : NA Dentures Removed : NA Hairpins/Hairpiecies Removed : NA Hearing Aid Removed : NA Home Prep Complete : NA Jewelry/Piercing Removed : NA Makeup/Nail Turkmen Removed : NA Oral Hygiene : NA Preop Scrub AM of Surgery : NA Preop Scrub Night Prior to Surgery : NA Prosthesis Removed : NA Tampon Removed : NA Verified - No hair products used : NA Voided quarry supervisor dimension stone to procedure : Yes Wearing Patient Gown : Yes DASH ROMO RN - 06/21/2016 11:32 PAY CLERK Patient Rights Grid Blood Consent Signed : NA Surgical/Procedure Consent Signed : Yes DASH ROMO RN - 06/21/2016 11:32 PAY CLERK Family Location : OPS Waiting Room DASH ROMO RN - 06/21/2016 11:32 PAY CLERK Checklist II Patient Safety Grid Allergy Band [...] NA DASH ROMO RN - 06/21/2016 11:32 PAY CLERK RN Who Verified Site : DASH ROMO RN Physician Who Verified Site : GAYLE CAMARENA MD, PhD DASH ROMO RN - 06/21/2016 11:32 PAY CLERK LUIS MIGUEL Screening Known Obstructive Sleep Apnea [...] 06/03/16 DASH ROMO RN - 06/21/2016 11:32 PAY CLERK LUIS MIGUEL Assessment Do you have high [...] 1 DASH ROMO RN - 06/21/2016 11:32 PAY CLERK Preop Holding Mode of Arrival : Cart Preoperative Orders Complete : Yes DASH ROMO RN - 06/21/2016 11:32 PAY CLERK Advance Directive Advanced Directives : No Advance Directive Additional Information : No DASH ROMO RN - 06/21/2016 11:32 PAY CLERK Preprocedural Pause Type of Pause : Preprocedural Pause Consent Correct : Yes Correct Patient Identity : Patient wristband ID Correct Procedure Site/Side Verified By : Nurse, , Allied Health Staff Site Marking : N/A Pre-Procedure Pause Verbal Confirm. of : Procedure, Site, Side, Patient Position, Patient ID Perioperative Staff #1 : DASH ROMO retail department manager Staff #2 : GAYLE CAMARENA MD, PhD Perioperative Staff #3 : YUN HUDDLESTON CRNA retail department manager Staff #4 : ALYCE PULLIAM MONICA R RN - 06/21/2016 11:58 PAY CLERK OR [employer] Checklist Images Present and Correct : N/A Special Equipment Present : N/A Implants Present : N/A Rep Required and Present : N/A Blood Components Present : N/A DASH ROMO RN - 06/21/2016 11:58 PAY CLERK [facility] Document Id: [id number] PAY CLERK!18 CLERK documented in this encounter Nursing Notes Warren Santos RDevendra - 06/22/2016 10:07 PM CST Focused Assessment - Gastrointestinal Focused Assessment - Gastrointestinal Entered On: 06/22/2016 22:08 PAY CLERK Performed On: 06/22/2016 22:07 PAY CLERK by WARREN SANTOS RN Gastrointestinal GI Patient Stated Symptoms : Cramping Abdomen Description : Symmetric Abdomen Palpation : Non-Tender, Soft Bowel Movement Last Date : 06/22/2016 PAY CLERK Bowel Sounds All Quadrants : Present Stool Description : Liquid Passing Flatus : Yes WARREN SANTOS RN - 06/22/2016 22:07 PAY CLERK Pain Scale Pain Scale Verbal 0-10 : Open WARREN SANTOS RN - 06/22/2016 22:07 PAY CLERK Pain Pain Assessment Grid Pain 1 Location : Rectal Intensity : 6 Alleviating Factors : Medication WARREN SANTOS RN - 06/22/2016 22:10 PAY CLERK Education General Patient Education Powergrid Topics : Medication dosage, route, scheduling, Nutrition/Diet, Pain Management, Plan of care, Safety, fall Individuals Taught : Patient, Spouse Barriers to Learning : None evident Teaching Method : Explanation Teaching Evaluation : Verbalizes understanding WARREN SANTOS RN - 06/22/2016 22:10 PAY CLERK Source: [employer] Document Id: [id number] PAY CLERK!25 CLERK Liliana Coleman R.N. - 06/22/2016 2:08 PM CST PRN Response PRN Response Entered On: 06/22/2016 14:37 PAY CLERK Performed On: 06/22/2016 14:08 PAY CLERK by LILIANA COLEMAN RN Intervention Information: ketorolac Performed by CHEVY KHAN RN on 06/22/2016 13:38:00 PAY CLERK ketorolac,15mg IV Push,Hand Left,Pain PRN Medication Effectiveness Evaluation PRN Medication Effective : No Post Medication Pain Assessment : 9 LILIANA COLEMAN RN - 06/22/2016 14:37 PAY CLERK Source: [facility] Document Id: [id number] PAY CLERK!4 CLERK Liliana Coleman R.N. - 06/22/2016 1:36 PM CST PRN Response PRN Response Entered On: 06/22/2016 13:54 PAY CLERK Performed On: 06/22/2016 13:36 PAY CLERK by LILIANA COLEMAN RN Intervention Information: diazepam Performed by LILIANA COLEMAN RN on 06/22/2016 12:36:00 PAY CLERK diazePAM,10mg PO,Spasm PRN Medication Effectiveness Evaluation PRN Medication Effective : Yes Post Medication Pain Assessment : N/A LILIANA COLEMAN RN - 06/22/2016 13:54 PAY CLERK Source: [facility] Document Id: [id number] PAY CLERK!4 CLERK Liliana Coleman R.N. - 06/22/2016 1:33 PM CST PRN Response PRN Response Entered On: 06/22/2016 13:54 PAY CLERK Performed On: 06/22/2016 13:33 PAY CLERK by LILIANA COLEMAN RN Intervention Information: oxycodone Performed by LILIANA COLEMAN RN on 06/22/2016 12:33:00 PAY CLERK oxyCODONE,15mg PO,Pain PRN Medication Effectiveness Evaluation PRN Medication Effective : No Post Medication Pain Assessment : 8 LILIANA COLEMAN RN - 06/22/2016 13:54 PAY CLERK Source: [facility] Document Id: [id number] PAY CLERK!4 CLERK Liliana Coleman R.N. - 06/22/2016 10:11 AM CST PRN Response PRN Response Entered On: 06/22/2016 13:54 PAY CLERK Performed On: 06/22/2016 10:11 PAY CLERK by LILIANA COLEMAN RN Intervention Information: oxycodone Performed by LILIANA COLEMAN RN on 06/22/2016 09:11:00 PAY CLERK oxyCODONE,15mg PO,Pain PRN Medication Effectiveness Evaluation PRN Medication Effective : Yes Post Medication Pain Assessment : 5 LILIANA COLEMAN RN - 06/22/2016 13:54 PAY CLERK Source: [facility] Document Id: [id number] PAY CLERK!4 CLERK Liliana Coleman R.N. - 06/22/2016 9:44 AM CST Protocol Vascular Access Adult Protocol Vascular Access Adult Entered On: 06/22/2016 9:44 PAY CLERK Performed On: 06/22/2016 9:44 PAY CLERK by LILIANA COLEMAN RN Vascular Access Adult Protocol Age 15 years or older Adult Protocol : Yes Vascular Access Device Adult : Yes Exclusion Criteria Adult Vascular Access Protocol : Patient has none of the below exclusions Vascular Access Protocol Status Adult : Criteria Met LILIANA COLEMAN RN - 06/22/2016 9:44 PAY CLERK Source: [facility] Document Id: [id number] PAY CLERK!6 CLERK Gris Smith - 06/22/2016 3:04 AM CST PRN Response PRN Response Entered On: 06/22/2016 5:05 PAY CLERK Performed On: 06/22/2016 3:04 PAY CLERK by GRIS SMITH Intervention Information: oxycodone Performed by GRIS SMITH on 06/22/2016 02:04:00 PAY CLERK oxyCODONE,15mg PO,Pain PRN Medication Effectiveness Evaluation PRN Medication Effective : Yes Post Medication Pain Assessment : 5 GRIS SMITH - 06/22/2016 5:05 PAY CLERK Source: [facility] Document Id: [id number] PAY CLERK!4 CLERK Gris Smith - 06/22/2016 1:03 AM CST PRN Response PRN Response Entered On: 06/22/2016 2:40 PAY CLERK Performed On: 06/22/2016 1:03 PAY CLERK by GRIS SMITH Intervention Information: ketorolac Performed by GRIS SMITH on 06/22/2016 00:33:00 PAY CLERK ketorolac,15mg IV Push,Hand Left,Pain PRN Medication Effectiveness Evaluation PRN Medication Effective : Yes Post Medication Pain Assessment : 4 GRIS SMITH - 06/22/2016 2:40 PAY CLERK Source: [facility]OWERCH[facility] Document Id: [id number] PAY CLERK!4 CLERK Gris Smith - 06/21/2016 9:10 PM CST PRN Response PRN Response Entered On: 06/22/2016 0:29 PAY CLERK Performed On: 06/21/2016 21:10 PAY CLERK by GRIS SMITH Intervention Information: diazepam Performed by GRSI SMITH on 06/21/2016 20:10:00 PAY CLERK diazePAM,10mg PO,Spasm PRN Medication Effectiveness Evaluation PRN Medication Effective : Yes GRIS SMITH - 06/22/2016 0:29 PAY CLERK Source: [facility] Document Id: [id number] PAY CLERK!3 CLERK Royal Olson R.R.T., C.R.T. - 06/21/2016 5:43 PM CST RT Tobacco Cessation Education RT Tobacco Cessation Education Entered On: 06/21/2016 17:44 PAY CLERK Performed On: 06/21/2016 17:43 PAY CLERK by ROYAL OLSON.R.T., C.R.T. Education Smoking Education Grid Topic : Smoking cessation programs Individuals Taught : Patient, Friend Barriers to Learning : None evident Teaching Method : Printed materials Teaching Evaluation : Verbalizes understanding ROYAL OLSONR.T., C.R.T. - 06/21/2016 17:43 PAY CLERK Source: [facility] Document Id: [id number] PAY CLERK!9 CLERK Toribio Cooley R.N. - 06/21/2016 5:[address] st cath for 450 cc urine, clear. Electronically Signed By: TORIBIO COOLEY RN On: 06/21/2016 05:18 PM Source: [facility] Document Id: [id number] CLERK Toribio Cooley R.N. - 06/21/2016 4:10 PM CST pt c/o nausea. 4 mg zofran slow IVP. ALso c/o need to urinate. not able to go on bedpan. bladder scan for 300 cc urine. requesting nicotine inhaler. Electronically Signed By: TORIBIO COOLEY RN On: 06/21/2016 04:12 PM Source: [facility] Document Id: [id number] CLERK Rosalind Ding R.N. - 06/21/2016 2:45 PM CST PRN Response PRN Response Entered On: 06/21/2016 14:00 PAY CLERK Performed On: 06/21/2016 14:45 PAY CLERK by ROSALIND DING RN Intervention Information: oxycodone Performed by ROSALIND DING RN on 06/21/2016 13:45:00 PAY CLERK oxyCODONE,10mg PO,Pain PRN Medication Effectiveness Evaluation PRN Medication Effective : No Post Medication Pain Assessment : 7 ROSALIND DING RN - 06/21/2016 14:00 PAY CLERK Source: [facility] Document Id: [id number] PAY CLERK!4 CLERK Rosalind Ding R.N. - 06/21/2016 2:35 PM CST Spinal analgesia given to pt. Electronically Signed By: ROSALIND DING RN On: 06/21/2016 02:35 PM Source: [facility] Document Id: [id number] CLERK Rosalind Ding R.N. - 06/21/2016 2:[address] Lynn in at bedside to discuss plan with pt. Electronically Signed By: ROSALIND DING RN On: 06/21/2016 02:13 PM Source: [facility] Document Id: [id number] CLERK Rosalind Ding R.N. - 06/21/2016 2:00 PM CST surgion called to speak with pt about plan of care. stats she could admit pt and recieve and epidural for pain control. Electronically Signed By: ROSALIND DING RN On: 06/21/2016 02:01 PM Source: [facility] Document Id: [id number] CLERK Rosalind Ding R.N. - 06/21/2016 2:00 PM CST PRN Response PRN Response Entered On: 06/21/2016 14:00 PAY CLERK Performed On: 06/21/2016 14:00 PAY CLERK by ROSALIND DING RN Intervention Information: diazepam Performed by LUCA LAWLER RN on 06/21/2016 13:30:00 PAY CLERK diazePAM,2mg IV Push,Hand Left,Anxiety PRN Medication Effectiveness Evaluation PRN Medication Effective : No Post Medication Pain Assessment : 7 ROSALIND DING RN - 06/21/2016 14:00 PAY CLERK Source: [facility] Document Id: [id number] PAY CLERK!4 CLERK Rosalind Ding R.N. - 06/21/2016 1:52 PM CST pt given morphine for pain control, and oral oxycodone 10mg. Electronically Signed By: ROSALIND DING RN On: 06/21/2016 01:52 PM Source: [facility] Document Id: [id number] CLERK Rosalind Ding R.N. - 06/21/2016 1:48 PM CST PRN Response PRN Response Entered On: 06/21/2016 14:00 PAY CLERK Performed On: 06/21/2016 13:48 PAY CLERK by ROSALIND DING RN Intervention Information: hydromorphone Performed by LUCA LAWLER RN on 06/21/2016 13:18:00 PAY CLERK HYDROmorphone,0.5mg IV Push,Hand Left,Pain PRN Medication Effectiveness Evaluation PRN Medication Effective : No Post Medication Pain Assessment : 7 ROSALIND DING RN - 06/21/2016 14:00 PAY CLERK Source: [facility] Document Id: [id number] PAY CLERK!4 CLERK Rosalind Ding R.N. - 06/21/2016 1:[address] Lynn in to assess pt and states she is going to order morphine for pt pain and oxycodone. oralto maintain her pain. Electronically Signed By: ROSALIND DING RN On: 06/21/2016 01:42 PM Source: [facility] Document Id: [id number] CLERK Dash Romo R.N. - 06/21/2016 11:32 AM CST Day Surgery Admission History/Asmt Adult Document Has Been Updated Day Surgery Admission History/Asmt Adult Entered On: 06/21/2016 11:35 PAY CLERK Performed On: 06/21/2016 11:32 PAY CLERK by DASH ROMO RN General Info Preferred Name : Silvia Admitted From : Non-Health Care Facility Point of Origin Mode of Arrival : Wheelchair Present in Room During Exam/Procedure : Spouse Chief Complaint : Rectal Pain Preferred Communication Mode : Verbal Information Given By : Patient Languages : Liberian Is Patient Female and 13-50 no hysterectomy : Yes Status : Patient denies Are you ? : No LMP Date : N/A DASH ROMO RN - 06/21/2016 11:32 PAY CLERK Allergy (As Of: 06/21/2016 11:35:44 PAY CLERK) Allergies (Active) NKA Estimated Onset Date: Unspecified ; Created By: KATIE BRUNNER MD; Reaction Status: Active ; Category: Drug ; Substance: NKA ; Type: Allergy ; Updated By: KATIE BRUNNER MD; Reviewed Date: 06/15/2016 17:35 PAY CLERK Anesth/Transfusion Anesthesia/Transfusions : Prior anesthesia Transfusion Acceptable in Emergency : Yes Sabianism/Other Objections to Blood Transfusions : No DASH ROMO RN - 06/21/2016 11:32 PAY CLERK ID Screen Drug Resistant Organism : No Travel Within Last 21 Days : No DASH ROMO RN - 06/21/2016 11:32 PAY CLERK Nutrition Have you recently lost weight without trying? : No Decreased Appetite Nutrition : No Tube Feedings or Parenteral Nutrition : No MST Score : 0 DASH ROMO RN - 06/21/2016 11:32 PAY CLERK Home Environment Current Daily Living Assistance : None Living Situation : Home independently Home Equipment : None Sensory Deficits : None Mobility Assistance Prior to Admission : Independent DASH ROMO RN - 06/21/2016 11:32 PAY CLERK Dependent Habits Exposure to Tobacco Smoke : [...] Yes DASH ROMO RN - 06/21/2016 11:32 PAY CLERK Caffeine Use Grid Caffeine Use : None DASH ROMO RN - 06/21/2016 11:32 PAY CLERK Recreational Drug Use Grid Drug Use : Current Type : Alcohol Route : Oral Frequency : Other: TWICE A MONTH DASH ROMO RN - 06/21/2016 11:32 PAY CLERK AUDIT Tool How Often Do You Have A Drink : 2 to 4 times a month How Many Drinks in a Day When Drinking : 1 or 2 Six or More Drinks On One Occassion : Never Audit Phase 1 Score : 2 DASH ROMO RN - 06/21/2016 11:32 PAY CLERK Psychosocial Adult Domestic Abuse Concerns : None Behavioral Health Screen/Safety Assmt : No Sabianism Preference : No Sabianism Affiliation DASH ROMO RN - 06/21/2016 11:32 PAY CLERK Advance Directive Advanced Directives : No Advance Directive Additional Information : No DASH ROMO RN - 06/21/2016 11:32 PAY CLERK Educ Needs Patient/Family Education Needs : Preoperative instructions DASH ROMO RN - 06/21/2016 11:32 PAY CLERK Learning Style Preference Adult Grid Patient : Verbal explanation Family : Verbal explanation DASH ROMO RN - 06/21/2016 11:32 PAY CLERK Psycho/Emotional Pain Symptoms : Yes DASH ROMO RN - 06/21/2016 11:32 PAY CLERK Pain Scale Pain Scale Verbal 0-10 : Open DASH ROMO RN - 06/21/2016 11:32 PAY CLERK Pain Pain Assessment Grid Pain 1 Location : Buttock DASH ROMO RN - 06/21/2016 11:32 PAY CLERK Source: [facility] POWER[facility]ART Document Id: [id number] PAY CLERK!78 CLERK documented in this encounter OR Notes Op [...] MD, PhD On: 07/06/2016 04:45 PM Source: [facility] [email or web address] Document Id: [id number] CLERK documented in this encounter Miscellaneous Notes Miscellaneous - Conversion, Historical Provider Ser - 06/22/2016 11:00 PM PAY CLERK Coding Summary-Paper Based CODING DATE: 06/26/2016 FINAL [facility] STATUS: * Discharged to Home or Self [...] disease without esophagitis PROCEDURES DOCTOR NAME DATE 36797 CHEMODENERVATION INTERNAL ANAL FRUNZAC, GAYLE W06/21/2016 SPHINCTER 74769 Injection(s), of diagnostic or SHANNA, JANETT L [...] slightly different terminology. Coded By: MARYELLEN OLIVAS [facility] Date Saved: 06/26/2016 07:50 am Source: [facility] POWERCHART Document Id: [id number] Miscellaneous - Letha Tafoya - 06/22/2016 3:33 PM CST Team Meeting Notes Team Meeting Notes Entered On: 06/22/2016 15:34 PAY CLERK Performed On: 06/22/2016 15:33 PAY CLERK by LETHA TAFOYA Team Notes Team Meeting Grid Discipline : Assistant Professor Of Music, Nurse, Pharmacist, Physical Therapist, Mechanic Helper, Utilization review Topics : Medication, Nutrition/Diet, Pain Management, Plan of care Goal of the Day : Medication for pain Patient/Team Agrees with Goal? : Yes LETHA TAFOYA - 06/22/2016 15:33 PAY CLERK Source: [facility] ERLinkCHART Document Id: [id number] PAY CLERK!8 CLERK Lyssacellaneous - iLliana Coleman R.N. - 06/22/2016 2:12 PM CST Adult Activities of Daily Living Adult Activities of Daily Living Entered On: 06/22/2016 14:14 PAY CLERK Performed On: 06/22/2016 14:12 PAY CLERK by LILIANA COLEMAN RN ADLs I Patient Position : Elevate head of bed 30 degrees Activity Status ADL : Toileting at bedside Activity Assistance : Maximal 2-3 person assistance Assistive Device : None Antiembolism Device : Sequential Compression Device Antiembolism Device Laterality : Bilateral Antiembolism Device Removal Reason : Activity Anti Embolism Devices Time Applied : 06/22/2016 7:00 PAY CLERK LILIANA COLEMAN RN - 06/22/2016 14:12 PAY CLERK ADLs II Hygiene Assistance Grid Foot Care : Minimum assistance Hair Care : Independent Oral Care : Independent Yoselin Care : Moderate assistance LILIANA COLEMAN RN - 06/22/2016 14:12 PAY CLERK Branch Catheter Care Done : Yes Bowel Movement Last Date : 06/22/2016 PAY CLERK Standard Safety : Bed in low position, Call device within reach, ID band check, Non-Slip footwear, Rounds every 1 hour, Upper/Half-length side-rails up, Wheels locked LILIANA COLEMAN RN - 06/22/2016 14:12 PAY CLERK ADLs Adult Nutrition Diet Type : Diet -- 06/21/16 15:20:00 PAY CLERK, General (No Restrictions) Feeding Assistance : Independent Breakfast : 100 % Lunch : 50 % LILIANA COLEMAN RN - 06/22/2016 14:12 PAY CLERK [facility] Id: [id number] PAY CLERK!24 CLERK Miscellaneous - Liliana Coleman R.N. - 06/22/2016 9:00 AM CST Adult Ongoing Assessment Document Has Been Updated Adult Ongoing Assessment Entered On: 06/22/2016 10:41 PAY CLERK Performed On: 06/22/2016 9:00 PAY CLERK by LILIANA COLEMAN RN Respiratory Respiratory Patient Stated Symptoms : None Respirations : Unlabored Distress : None Respiratory Pattern : Regular All Lobes Breath Sounds : Clear Cough : None LILIANA COLEMAN RN - 06/22/2016 10:38 PAY CLERK Cardiovascular CV Patient Stated Symptoms : None Heart Rhythm : Regular Antiembolism Device Yes/No : Yes Nail Bed Color : [place] Capillary Refill : Less than 2 seconds Edema Assessment : No LILIANA COLEMAN RN - 06/22/2016 10:38 PAY CLERK Radial Pulse, Left : 2+ Normal Radial Pulse, Right : 2+ Normal Dorsalis Pedis Pulse, Left : 2+ Normal Dorsalis Pedis Pulse, Right : 2+ Normal LILIANA COLEMAN RN - 06/22/2016 10:38 PAY CLERK Skin Color : [place] Skin Description : Moist Skin Temperature : Warm Activity Tolerance : Without distress LILIANA COLEMAN RN - 06/22/2016 10:38 PAY CLERK Antiembolism Device Antiembolism Device : Sequential Compression Device Antiembolism Device Laterality : Bilateral Antiembolism Device Status : On Anti Embolism Devices Time Applied : 06/22/2016 7:00 PAY CLERK LILIANA COLEMAN RN - 06/22/2016 10:38 PAY CLERK Neurological Neuro Patient Stated Symptoms : None Orientation : Oriented x 3 Level of Consciousness : Alert Gait : Unable to assess Swallowing Difficulty/Aspiration Risk : None Last Well Time Known : Not applicable LILIANA COLEMAN RN - 06/22/2016 10:38 PAY CLERK Psycho/Emotional Affect/Behavior : Calm, Cooperative, Appropriate Pain Symptoms : Yes LILIANA COLEMAN RN - 06/22/2016 10:38 PAY CLERK Coping Grid Identifies effective strategies : Yes Reports increase in psychological comfort : Yes Indicates sense of control : Yes Stressors perceived within control : Yes LILIANA COLEMAN RN - 06/22/2016 10:38 PAY CLERK Safety Grid Vision, Hearing, Mobility Adequate to Meet Safety Needs : Yes LILIANA COLEMAN RN - 06/22/2016 10:38 PAY CLERK Pain Scale Pain Scale Verbal 0-10 : Open LILIANA COLEMAN RN - 06/22/2016 10:38 PAY CLERK Pain Pain Assessment Grid Pain 1 Location : Rectal Intensity : 7 Quality : Aching, Sharp Aggravating Factors : Movement LILIANA COLEMAN RN - 06/22/2016 10:38 PAY CLERK Gastrointestinal Stool Color : Brown Stool Description : Soft Stool Amount : Large Passing Flatus : Yes LILIANA COLEMAN RN - 06/22/2016 14:16 PAY CLERK GI Patient Stated Symptoms : None Abdomen Description : Rounded Abdomen Palpation : Soft KAYLA COLEMANN Daja RN - 06/22/2016 10:38 PAY CLERK Bowel Movement Last Date : 06/22/2016 PAY CLERK KAYLA COLEMANDontrell Farnsworth RN - 06/22/2016 14:16 PAY CLERK Bowel Sounds All Quadrants : Present KAYLA COLEMANN Daja RN - 06/22/2016 10:38 PAY CLERK Nutrition Appetite : Excellent Eating Difficulties : None Feeding Ability : Complete independence KAYLA COLEMANDontrell Farnsworth RN 06/22/2016 10:38 PAY CLERK Genitourinary Patient Stated Symptoms : None Urinary Elimination : Urinary catheter Urine Color : Straw Urine Description : Clear Urine Odor : Odorless KAYLA COLEMANDontrell Farnsworth RN - 06/22/2016 10:38 PAY CLERK Urinary Catheter Details Date/Time Catheter Discontinued : 06/22/2016 15:00 PAY CLERK KAYLA COLEMANN Daja RN - 06/22/2016 15:01 PAY CLERK Urinary Catheter Clinical Indication : Status post urologic/gynecologic/rectal surgery, Urinary retention/obstruction Continued Need for Urinary Catheter : Yes KAYLA COLEMANN Daja RN - 06/22/2016 10:38 PAY CLERK Catheter discontinued : Yes KAYLA COLEMANDontrell Farnsworth RN - 06/22/2016 15:01 PAY CLERK Integumentary Integumentary Patient Stated Symptoms : None Skin Turgor : Elastic Skin Integrity : Intact Mucous Membrane Color : [place] Mucous Membrane Description : Moist Skin Color : [place] Skin Description : Moist Skin Temperature : Warm LILIANA COLEMAN RN - 06/22/2016 10:38 PAY CLERK Lázaro Sensory Perception Lázaro : No impairment Moisture Lázaro : Occasionally moist Activity Lázaro : Walks frequently Mobility Lázaro : No limitations Nutrition Lázaro : Excellent Friction and Shear Lázaro : No apparent problem Lázaro Score : 22 KAYLA COLEMANN Daja - 06/22/2016 10:38 PAY CLERK Peripheral IV Peripheral IV Assess/Intervention Grid Peripheral IV #1 IV Activity : Assessment Date of Insertion : 06/21/2016 PAY CLERK IV Site : Hand Laterality : Left Catheter Size : 18 Catheter Type : Over the needle Site Condition : No complications Infiltration Score : 0 Phlebitis Score : 0 Primary Tubing Changed : 06/21/2016 PAY CLERK Secondary Tubing Changed : 06/21/2016 PAY CLERK Flow/ Patency : No complications LILIANA COLEMAN RN - 06/22/2016 10:38 PAY CLERK Hendrich II Fall Risk Confusion/Disorientation Hendrich : [...] 1 LILIANA COLEMAN RN - 06/22/2016 10:38 PAY CLERK Safe Patient Handling Safe Pt Handling Independent : Yes - No equipment needed Safe Pt Handling Equipment Rec : No Equipment Needed Repositioning Device Recommended : No LILIANA COLEMAN RN - 06/22/2016 10:38 PAY CLERK Education General Patient Education Powergrid Topics : Activity limitations/expectations, Diagnostic results, Disease process, Medication dosage, route, scheduling, Medication precautions, side effects, food/drug interaction, Nutrition/Diet, Pain Management, Plan of care, Safety, fall, Safety, medication Individuals Taught : Patient, Spouse Barriers to Learning : None evident Teaching Method : Explanation Teaching Evaluation : Verbalizes understanding LILIANA COLEMAN RN - 06/22/2016 10:38 PAY CLERK Source: [facility] Document Id: [id number] PAY CLERK!4 CLERK Miscellaneous - Светлана Morris, R.Ph. - 06/22/2016 2:11 AM CST Pharmacy Communication Note Pharmacy Communication Note Entered On: 06/22/2016 2:12 PAY CLERK Performed On: 06/22/2016 2:11 PAY CLERK by СВЕТЛАНА MORRIS Pharmacy Communication Note Pharmacy Communication Note Status : Completed WILL ACOSTA Pharm.DEmeka, R.Ph - 06/22/2016 12:24 PAY CLERK Pharmacy Communicate Note Grid Date of Initials : 06/22/2016 PAY CLERK 06/22/2016 PAY CLERK Initials : MAYKEL GRIGGS Comments : Pt previously on oxycodone 5 mg tab; take 1 tab for pain 2-4, 2 tabs for pain 5-6, and 3 tabs for pain 7-10 Patient getting 1-3 tabs of oxycodone 15 (max=45mg). 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 Repositioned : Electrode GRIS SMITH - 06/22/2016 0:19 PAY CLERK ADLs II Hygiene Assistance Grid Hair Care : Independent Oral Care : Independent Yoselin Care : Moderate assistance GRIS SMITH - 06/22/2016 0:19 PAY CLERK Branch Catheter Care Done : Yes Elimination Assistance Offered Q2H : Independent Bowel Movement Last Date : 06/20/2016 PAY CLERK Standard Safety : Bed alarm ON, Bed in low position, Call device within reach, ID band check, Night light, Non-Slip footwear, Rounds every 2 hours, Upper/Half- length side-rails up, Wheels locked GRIS SMITH - 06/22/2016 0:19 PAY CLERK Source: [employer] Document Id: [id number] PAY CLERK!14 CLERK Olga - Gris Smith - 06/21/2016 11:00 PM CST Adult Ongoing Assessment Adult Ongoing Assessment Entered On: 06/22/2016 0:27 PAY CLERK Performed On: 06/21/2016 23:00 PAY CLERK by GRIS SMITH Respiratory Respiratory Patient Stated Symptoms : None Respirations : Unlabored Distress : None Respiratory Pattern : Regular All Lobes Breath Sounds : Clear Cough and Deep Breathe : Done Cough : None Sputum Amount : None Suction : None Airway : Patent GRIS SMITH 06/22/2016 0:19 PAY CLERK Cardiovascular CV Patient Stated Symptoms : None Heart Rhythm : Regular Heart Sounds ICU : S1S2 Antiembolism Device Yes/No : Yes Nail Bed Color : Como Capillary Refill : Less than 2 seconds Edema Assessment : No Pacer : No GRIS SMITH 06/22/2016 0:19 PAY CLERK Radial Pulse, Left : 2+ Normal Radial Pulse, Right : 2+ Normal Dorsalis Pedis Pulse, Left : 2+ Normal Dorsalis Pedis Pulse, Right : 2+ Normal GRIS SMITH 06/22/2016 0:19 PAY CLERK Antiembolism Device Antiembolism Device : Sequential Compression Device Antiembolism Device Status : Patient refused GRIS SMITH 06/22/2016 0:19 PAY CLERK Neurological Neuro Patient Stated Symptoms : None Orientation : Oriented x 3 Level of Consciousness : Alert Gait : Unable to assess Swallowing Difficulty/Aspiration Risk : None Last Well Time Known : Not applicable GRIS SMITH 06/22/2016 0:19 PAY CLERK Blanco Coma Eye Opening Response [place] : Spontaneously Best Verbal Response Blanco : Oriented Best Motor Response Blanco : Obeys simple commands [place] Coma Score : 15 GRIS SMITH 06/22/2016 0:19 PAY CLERK Psycho/Emotional Affect/Behavior : Cooperative, Anxious, Restless Pain Symptoms : Yes Feels Rested : No GRIS SMITH 06/22/2016 0:19 PAY CLERK Pain Scale Pain Scale Verbal 0-10 : Open GRIS SMITH 06/22/2016 0:19 PAY CLERK Pain Pain Assessment Grid Pain 1 Location : Buttock Intensity : 4 GRIS SMITH 06/22/2016 0:19 PAY CLERK Gastrointestinal GI Patient Stated Symptoms : Abdominal pain, Gas Abdomen Description : Rounded, Symmetric Abdomen Palpation : Non-Tender, Soft Bowel Movement Last Date : 06/20/2016 PAY CLERK Bowel Sounds All Quadrants : Present Passing Flatus : Yes GRIS SMITH 06/22/2016 0:19 PAY CLERK Nutrition Appetite : Good Eating Difficulties : None Feeding Ability : Complete independence GRIS SMITH 06/22/2016 0:19 PAY CLERK Genitourinary Patient Stated Symptoms : Retention Urinary Elimination : Urinary catheter Voiding Difficulties : Retention Urine Color : Yellow Urine Description : Clear GRIS SMITH 06/22/2016 0:19 PAY CLERK Urinary Catheter Details Urinary Catheter Clinical Indication : Status post urologic/gynecologic/rectal surgery, Urinary retention/obstruction Continued Need for Urinary Catheter : Yes Urinary Catheter Insertion : During hospital stay Date/Time Catheter Insertion : 06/21/2016 20:35 PAY CLERK Catheter discontinued : No GRIS SMITH 06/22/2016 0:19 PAY CLERK Urinary Catheter Urinary Catheter Activity Type : Assessment Urinary Catheter Insertion Site : Urethral Urinary Catheter Size : 16 Korean Urinary Catheter Type : Indwelling/Continuous Urinary Catheter Balloon Inflation : 10 mL sterile water Urinary Catheter Secured : Tape Urinary Catheter Drainage System : Dependent drainage bag GRIS SMITH 06/22/2016 0:19 PAY CLERK Integumentary Integumentary Patient Stated Symptoms : None Skin Turgor : Elastic Skin Integrity : Intact Mucous Membrane Color : [place] Mucous Membrane Description : Moist Skin Color : Normal for ethnicity Skin Description : Normal Skin Temperature : Warm GRIS SMITH 06/22/2016 0:19 PAY CLERK Incision/Wound Incision/Wound Care Grid Activity : Assessed Wound Type : Surgical acute GRIS SMITH 06/22/2016 0:19 PAY CLERK Lázaro Sensory Perception Lázaro : No impairment Moisture Lázaro : Rarely moist Activity Lázaro : Chairfast Mobility Lázaro : Slightly limited Nutrition Lázaro : Excellent Friction and Shear Lázaro : No apparent problem Lázaro Score : 20 MATA SMITHTNEY 06/22/2016 0:19 PAY CLERK Musculoskeletal Musculoskeletal Patient Stated Symptoms : None MELITAJAYEGRIS BONILLA 06/22/2016 0:19 PAY CLERK Peripheral IV Peripheral IV Assess/Intervention Grid Peripheral IV #1 IV Activity : Assessment Date of Insertion : 06/21/2016 PAY CLERK IV Site : Hand Laterality : Left Catheter Size : 18 Catheter Type : Over the needle Site Condition : No complications Drainage Description : None Infiltration Score : 0 Phlebitis Score : 0 Primary Tubing Changed : 06/21/2016 PAY CLERK Secondary Tubing Changed : 06/21/2016 PAY CLERK Dressing/ Activity : Dry, Intact Flow/ Patency : No complications GRIS SMITH P - 06/22/2016 0:19 PAY CLERK Falls Assessment Fall Injury Risk History of Falls : No Patient at Risk for Falls : Yes Fall Injury Risk Factors : None of the below Risk Factors Patient has increased Fall Injury Risk : No GRIS SMITH - 06/22/2016 0:19 PAY CLERK Hendrich II Fall Risk Confusion/Disorientation Hendrich : [...] : 6 GRIS SMITH - 06/22/2016 0:19 PAY CLERK Source: [employer] Document Id: [id number] PAY CLERK!139 CLERK Miscellaneous - Pearl Redd, R.N. - 06/21/2016 4:45 PM CST Adult Ongoing Assessment Adult Ongoing Assessment Entered On: 06/21/2016 17:53 PAY CLERK Performed On: 06/21/2016 16:45 PAY CLERK by PEARL REDD RN Respiratory Respiratory Patient Stated Symptoms : None Respirations : Unlabored Distress : None Respiratory Pattern : Regular All Lobes Breath Sounds : Clear Cough and Deep Breathe : Done Cough : None Sputum Amount : None Suction : None Airway : Patent PEARL REDD RN - 06/21/2016 17:39 PAY CLERK Cardiovascular CV Patient Stated Symptoms : None Heart Rhythm : Regular Antiembolism Device Yes/No : Yes Nail Bed Color : Com[place] Capillary Refill : Less than 2 seconds Edema Assessment : No PEARL REDD RN - 06/21/2016 17:39 PAY CLERK Radial Pulse, Left : 2+ Normal Radial Pulse, Right : 2+ Normal PEARL REDD RN - 06/21/2016 17:39 PAY CLERK Skin Color : Normal for ethnicity Skin Description : Normal Skin Temperature : Warm Activity Tolerance : Minimal distress REDD PEARL P - 06/21/2016 17:39 PAY CLERK Neurological Neuro Patient Stated Symptoms : None Orientation : Oriented x 3 Level of Consciousness : Alert Gait : Steady Swallowing Difficulty/Aspiration Risk : None PEARL REDD RN - 06/21/2016 17:39 PAY CLERK Psycho/Emotional Affect/Behavior : Cooperative, Anxious, Restless Pain Symptoms : Yes PEARL REDD RN 06/21/2016 17:39 PAY CLERK Coping Grid Identifies effective strategies : No Uses effective strategies : No Stressors perceived within control : No Stable mood with appropriate affect : No Behaviors indicate use of coping mechanism : No Family supportive and involved in care : Yes Values/Beliefs incorporated appropriately : Yes PEARL REDD RN 06/21/2016 17:39 PAY CLERK Safety Grid Vision, Hearing, Mobility Adequate to Meet Safety Needs : Yes PEARL REDD RN 06/21/2016 17:39 PAY CLERK Pain Scale Pain Scale Verbal 0-10 : Open PEARL REDD [facility] 06/21/2016 17:39 PAY CLERK Effects of Pain Grid Appetite : None Concentration : Moderate Daily Life : Mild Emotions : Moderate Relationships : Mild Sleep : Moderate PEARL REDD [facility] 06/21/2016 17:39 PAY CLERK Pain Pain Assessment Grid Pain 1 Location : Buttock Intensity : 4 Interventions : Medications, Repositioning, Rest PEARL REDD RN 06/21/2016 17:39 PAY CLERK Gastrointestinal GI Patient Stated Symptoms : Nausea Abdomen Description : Rounded, Symmetric Bowel Movement Last Date : 06/20/2016 PAY CLERK Bowel Sounds All Quadrants : Present REDDPEARL RN 06/21/2016 17:39 PAY CLERK Genitourinary Patient Stated Symptoms : None Urinary Elimination : Not voiding Bladder Scan Volume : 300 mL PEARL REDD RN 06/21/2016 17:39 PAY CLERK Integumentary Integumentary Patient Stated Symptoms : None Skin Turgor : Elastic Skin Integrity : Intact Skin Color : Normal for ethnicity Skin Description : Normal Skin Temperature : Warm PEARL REDD RN - 06/21/2016 17:39 PAY CLERK Incision/Wound Incision/Wound Care Grid Activity : Assessed Dressing Type : Surgical acute Wound Dressing : Other: kerlix with mesh panty PEARL REDD RN 06/21/2016 17:39 PAY CLERK Lázaro Sensory Perception Lázaro : No impairment Moisture Lázaro : Rarely moist Activity Lázaro : Walks occasionally Mobility Lázaro : No limitations Nutrition Lázaro : Excellent Friction and Shear Lázaro : No apparent problem Lázaro Score : 22 PEARL REDD RN - 06/21/2016 17:39 PAY CLERK Musculoskeletal Musculoskeletal Patient Stated Symptoms : None Activity Tolerance : Without distress PEARL REDD RN - 06/21/2016 17:39 PAY CLERK Peripheral IV Peripheral IV Assess/Intervention Grid Peripheral IV #1 IV Activity : Assessment Date of Insertion : 06/21/2016 PAY CLERK IV Site : Hand Laterality : Left Catheter Size : 18 Primary Tubing Changed : 06/21/2016 PAY CLERK Secondary Tubing Changed : 06/21/2016 PAY CLERK Flow/ Patency : No complications PEARL REDD RN - 06/21/2016 17:39 PAY CLERK Hendrich II Fall Risk Confusion/Disorientation Hendrich : [...] 2 PEARL REDD RN - 06/21/2016 17:39 PAY CLERK Safe Patient Handling Safe Pt Handling Independent : Yes - No equipment needed Safe Pt Handling Equipment Rec : No Equipment Needed Repositioning Device Recommended : No PEARL REDD RN - 06/21/2016 17:39 PAY CLERK Education General Patient Education Powergrid Topics : Plan of care, Postoperative instructions Individuals Taught : Patient Barriers to Learning : Acuity of Illness, Emotional state Teaching Method : Explanation Teaching Evaluation : Needs reinforcement, Verbalizes understanding PEARL REDD RN - 06/21/2016 17:39 PAY CLERK Source: [facility] Document Id: [id number] PAY CLERK!126 CLERK Miscellaneous - Rosalind Ding R.NEmeka - 06/21/2016 3:00 PM CST Adult Postprocedure Assessment Adult Postprocedure Assessment Entered On: 06/21/2016 14:53 PAY CLERK Performed On: 06/21/2016 15:00 PAY CLERK by ROSALIND DING RN General Skin Color : Normal for ethnicity Skin Description : Dry Skin Temperature : Warm Pain Symptoms : Yes ROSALIND DING RN - 06/21/2016 14:49 PAY CLERK Pain Scale Pain Scale Verbal 0-10 : Open ROSALIND DING 06/21/2016 14:49 PAY CLERK Pain Pain Assessment Grid Pain 1 Location : Buttock Intensity : 3 ROSALIND DING 06/21/2016 14:49 PAY CLERK Cardiovascular Heart Rhythm : Regular Nail Bed Color : Como Edema Assessment : No Capillary Refill : Less than 2 seconds ROSALIND DING 06/21/2016 14:49 PAY CLERK Posttibial Pulse, Left : 2+ Normal Posttibial Pulse, Right : 2+ Normal ROSALIND DING 06/21/2016 14:49 PAY CLERK Respiratory Respiratory Patient Stated Symptoms : None Respirations : Unlabored Distress : None Respiratory Pattern : Regular All Lobes Breath Sounds : Clear Cough : None Sputum Amount : None Suction : None ROSALIND DING 06/21/2016 14:49 PAY CLERK GI/ Nausea Symptoms : No ROSALIND DING 06/21/2016 14:49 PAY CLERK Integumentary Integumentary Patient Stated Symptoms : None Skin Turgor : Elastic Skin Integrity : Intact Mucous Membrane Color : [place] Mucous Membrane Description : Moist Skin Color : Normal for ethnicity Skin Description : Dry Skin Temperature : Warm ROSALIND DING 06/21/2016 14:49 PAY CLERK Peripheral IV Peripheral IV Assess/Intervention Grid Peripheral IV #1 IV Activity : Assessment IV Site : Hand Laterality : Left Catheter Size : 18 Site Condition : No complications Drainage Description : None ROSALIND DING 06/21/2016 14:49 PAY CLERK I&O Incont/BR : 1 ROSALIND DING 06/21/2016 14:49 PAY CLERK Lower Extremity Nail Bed Color Feet Grid Left Foot : [place] Right Foot : [place] ROSALIND DING 06/21/2016 14:49 PAY CLERK Capillary Refill Feet Grid Left Foot : < 2 seconds Right Foot : < 2 seconds ROSALIND DING 06/21/2016 14:49 PAY CLERK NV Lower Extremity Color Grid Left : [place] Right : [place] ROSALIND DING 06/21/2016 14:49 PAY CLERK NV Lower Extremity Temperature Grid Left : Warm Right : Warm ROSALIND DING 06/21/2016 14:49 PAY CLERK Activity Patient Position : High Prince's, Semi-Prince's Activity Status ADL : Complete bedrest Range of Motion LUE : Active Range of Motion RUE : Active Range of Motion LLE : Active Range of Motion RLE : Active ROSALIND DING RN - 06/21/2016 14:49 PAY CLERK Modified [place] Activity : Moves 2 extremities voluntarily or on command Respiratory : Able to deep breathe and cough freely Circulation : BP +/- 20% of preprocedural level or not unusually high or low Consciousness : Fully awake O2 Saturation : O2 SAT at preprocedural level [place] l Score : 9 ROSALIND DING RN - 06/21/2016 14:49 PAY CLERK Lázaro Sensory Perception Lázaro : No impairment Moisture Lázaro : Rarely moist Activity Lázaro : Bedfast Mobility Álzaro : Slightly limited Nutrition Lázaro : Excellent Friction and Shear Lázaro : No apparent problem Lázaro Score : 19 ROSALIND DING RN - 06/21/2016 14:49 PAY CLERK Falls Assessment Patient at Risk for Falls : Yes Patient has increased Fall Injury Risk : Yes ROSALIND DING RN - 06/21/2016 14:49 PAY CLERK Gabriela II Fall Risk Gender, Male Fall Risk Hendrich : No ROSALIND DING RN - 06/21/2016 14:49 PAY CLERK Safe Patient Handling Safe Pt Handling Independent : No Safe Pt Handling Supervision/Minimal Assistance : Yes - Unmotorized Equipment Safe Pt Handling Equipment Rec : No Equipment Needed ROSALIND DING RN - 06/21/2016 14:49 PAY CLERK Education General Patient Education [employer] Topics : Pain Management, Plan of care, Postoperative instructions, Use of pain scale(s) Individuals Taught : Patient, Spouse, Parent Barriers to Learning : None evident Teaching Method : Demonstration, Explanation, Printed materials Teaching Evaluation : Able to teach back, Verbalizes understanding ROSALIND DING RN - 06/21/2016 14:49 PAY CLERK [facility] Document Id: [id number] PAY CLERK!104 CLERK Miscellaneous - Rosalind Ding R.N. - 06/21/2016 2:45 PM CST Adult Postprocedure Assessment Adult Postprocedure Assessment Entered On: 06/21/2016 14:45 PAY CLERK Performed On: 06/21/2016 14:45 PAY CLERK by ROSALIND DING RN General Pain Symptoms : Yes ROSALIND DING RN - 06/21/2016 14:45 PAY CLERK Pain Scale Pain Scale Verbal 0-10 : Open ROSALIND DING RN - 06/21/2016 14:45 PAY CLERK Pain Pain Assessment Grid Pain 1 Location : Buttock Intensity : 3 ROSALIND DING RN - 06/21/2016 14:45 PAY CLERK Source: [employer] Document Id: [id number] PAY CLERK!10 CLERK Miscellмарина - Rosalind Ding R.N. - 06/21/2016 2:30 PM CST Adult Postprocedure Assessment Adult Postprocedure Assessment Entered On: 06/21/2016 14:37 PAY CLERK Performed On: 06/21/2016 14:30 PAY CLERK by ROSALIND DING RN General Pain Symptoms : Yes ROSALIND DING RN - 06/21/2016 14:36 PAY CLERK Pain Scale Pain Scale Verbal 0-10 : Open ROSALIND DING RN - 06/21/2016 14:36 PAY CLERK Pain Pain Assessment Grid Pain 1 Location : Buttock Intensity : 7 ROSALIND DING RN - 06/21/2016 14:36 PAY CLERK Source: [employer] Document Id: [id number] PAY CLERK!10 CLERK Miscellaneous - Rosalind Ding R.N. - 06/21/2016 2:15 PM CST Adult Postprocedure Assessment Adult Postprocedure Assessment Entered On: 06/21/2016 14:15 PAY CLERK Performed On: 06/21/2016 14:15 PAY CLERK by ROSALIND DING RN General Pain Symptoms : Yes ROSALIND DING RN - 06/21/2016 14:15 PAY CLERK Pain Scale Pain Scale Verbal 0-10 : Open ROSALIND DING RN - 06/21/2016 14:15 PAY CLERK Pain Pain Assessment Grid Pain 1 Location : Buttock Intensity : 6 ROSALIND DING RN - 06/21/2016 14:15 PAY CLERK Source: [facility]ART Document Id: [id number] PAY CLERK!10 CLERK Miscellaneous - Rosalind Ding R.N. - 06/21/2016 2:00 PM CST Adult Postprocedure Assessment Adult Postprocedure Assessment Entered On: 06/21/2016 14:02 PAY CLERK Performed On: 06/21/2016 14:00 PAY CLERK by ORSALIND DING RN General Pain Symptoms : Yes ROSALIND DING RN - 06/21/2016 14:01 PAY CLERK Pain Scale Pain Scale Verbal 0-10 : Open ROSALIND DING RN - 06/21/2016 14:01 PAY CLERK Pain Pain Assessment Grid Pain 1 Location : Buttock Intensity : 7 ROSALIND DING RN - 06/21/2016 14:01 PAY CLERK [facility] Document Id: [id number] PAY CLERK!10 CLERK Miscellмарина - Rosalind Ding R.N. - 06/21/2016 1:45 PM CST Adult Postprocedure Assessment Adult Postprocedure Assessment Entered On: 06/21/2016 13:55 PAY CLERK Performed On: 06/21/2016 13:45 PAY CLERK by ROSALIND DING RN General Pain Symptoms : Yes ROSALIND DING RN - 06/21/2016 13:55 PAY CLERK Pain Scale Pain Scale Verbal 0-10 : Open ROSALIND DING RN - 06/21/2016 13:55 PAY CLERK Pain Pain Assessment Grid Pain 1 Location : Buttock Intensity : 7 ROSALIND DING RN - 06/21/2016 13:55 PAY CLERK Source: [facility] Document Id: [id number] PAY CLERK!10 CLERK Miscellaneous - Rosalind Ding R.N. - 06/21/2016 1:30 PM CST Adult Postprocedure Assessment Adult Postprocedure Assessment Entered On: 06/21/2016 13:33 PAY CLERK Performed On: 06/21/2016 13:30 PAY CLERK by ROSALIND DING RN General Pain Symptoms : Yes ROSALIND DING RN - 06/21/2016 13:33 PAY CLERK Pain Scale Pain Scale Verbal 0-10 : Open ROSALIND DING RN - 06/21/2016 13:33 PAY CLERK Pain Pain Assessment Grid Pain 1 Location : Buttock Intensity : 7 ROSALIND DING RN - 06/21/2016 13:33 PAY CLERK [facility] Document Id: [id number] PAY CLERK!10 CLERK Miscellaneous - Luca Lawler R.N. - 06/21/2016 1:15 PM CST Adult Postprocedure Assessment Adult Postprocedure Assessment Entered On: 06/21/2016 13:44 PAY CLERK Performed On: 06/21/2016 13:15 PAY CLERK by LUCA LAWLER RN Vital Signs Oxygen Therapy : Room air LUCA LAWLER RN - 06/21/2016 13:42 PAY CLERK General Level of Consciousness : Alert Orientation : Oriented x 3 Pain Symptoms : Yes LUCA LAWLER RN - 06/21/2016 13:42 PAY CLERK Pain Scale Pain Scale Verbal 0-10 : Open LUCA LAWLER RN - 06/21/2016 13:42 PAY CLERK Pain Pain Assessment Grid Pain 1 Location : Buttock Intensity : 7 LUCA LAWLER RN - 06/21/2016 13:42 PAY CLERK Peripheral IV Peripheral IV Assess/Intervention Grid Peripheral IV #1 IV Site : Hand Laterality : Left Catheter Size : 18 LUCA LAWLER RN - 06/21/2016 13:42 PAY CLERK Modified [place] Activity : Moves 4 extremities voluntarily or on command Respiratory : Able to deep breathe and cough freely Circulation : BP +/- 20% of preprocedural level or not unusually high or low Consciousness : Fully awake O2 Saturation : O2 SAT at preprocedural level [place] l Score : 10 LUCA LAWLER RN - 06/21/2016 13:42 PAY CLERK PARSAP Activity Status : Moves 4 extremities [...] 18 LUCA LAWLER RN - 06/21/2016 13:42 PAY CLERK Source: [employer] Document Id: [id number] PAY CLERK!39 CLERK Miscellaneous - Hernesto Waldrop R.N. - 06/21/2016 1:01 PM PAY CLERK Adult Postprocedure Assessment Adult Postprocedure Assessment Entered On: 06/21/2016 13:02 PAY CLERK Performed On: 06/21/2016 13:01 PAY CLERK by HERNESTO WALDROP RN General Level of Consciousness : Alert Orientation : Oriented x 3 Skin Color : Ethan Skin Description : Dry Skin Temperature : Warm Pain Symptoms : Yes HERNESTO WALDROP RN - 06/21/2016 13:01 PAY CLERK Pain Scale Pain Scale Verbal 0-10 : Open HERNESTO WALDROP RN - 06/21/2016 13:01 PAY CLERK Pain Pain Assessment Grid Pain 1 Location : Buttock Intensity : 7 Time Pattern : Constant Quality : Sharp Pain Radiation : Yes Interventions : MD Ty notified, Medications, Repositioning, Rest HERNESTO WALDROP RN - 06/21/2016 13:09 PAY CLERK Cardiac Rhythm Techs Monitoring Lead : II, V1/MCL1 Atrial Rhythm : Regular Ventricular Rhythm : Regular Cardiac Rhythm : Sinus rhythm HERNESTO WALDROP RN - 06/21/2016 13:09 PAY CLERK Respiratory Respiratory Patient Stated Symptoms : None Respirations : Unlabored, Tachypnea Respiratory Pattern : Regular HERNESTO WALDROP RN - 06/21/2016 13:09 PAY CLERK Integumentary Skin Turgor : Elastic Skin Integrity : Not intact Skin Color : [place] Skin Description : Normal Skin Temperature : Warm HERNESTO WALDROP RN - 06/21/2016 13:09 PAY CLERK Incision/Wound Incision/Wound Care Grid Activity : Assessed Dressing HERNESTO WALDROP RN - 06/21/2016 13:09 PAY CLERK Peripheral IV Peripheral IV Assess/Intervention Grid Peripheral IV #1 IV Activity : Assessment IV Site : Hand Laterality : Left Catheter Size : 18 Site Condition : No complications HERNESTO WALDROP - 06/21/2016 13:09 PAY CLERK Activity Patient Position : Lying on right side HERNESTO WALDROP - 06/21/2016 13:09 PAY CLERK Modified [place] Activity : Moves 4 extremities voluntarily or on command Respiratory : Able to deep breathe and cough freely Circulation : BP +/- 20% of preprocedural level or not unusually high or low Consciousness : Fully awake O2 Saturation : O2 SAT at preprocedural level [place] l Score : 10 HERNESTO WALDROP RN - 06/21/2016 13:09 PAY CLERK [facility] Document Id: [id number] PAY CLERK!55 CLERK documented in this encounter Plan of Treatment Not on filedocumented as of this encounter Visit Diagnoses Not on filedocumented in this encounter
--- OUTSIDE RECORDS SUMMARY | 2022-02-12 14:28 | XMS_ITS | Clinical Summary ---
:1985 Author Organization [facility] Address [address] [place] [id number] Care Team Providers Name Role Phone Elsewhere, Pcp Primary Care Provider Unavailable Source Comments Patient records contain information from all sites at [facility]. For routine questions regarding patient records, call [phone] during business hours, M-F 8:00 AM - 5:00 PM Central Time. Record requests for emergency care only can be directed to [phone] at any time.[facility] Allergies No known active allergies Medications Medication [...] 170 cm (5' 6.93) 06/22/2016 10:01 PM DIRECTOR OF SPECIAL SERVICES Body Mass Index 26.26 06/22/2016 10:01 PM DIRECTOR OF SPECIAL SERVICES Plan of Treatment Health Maintenance Due Date [...] Typ e / Group Dates ITASCA ITASCA [id number] 2021-[facility] [phone] [facility] MEDICAL CARE MEDICAL CARE ent [address] [place] [address] [address]. DIEUDONNE [address] Care Teams Costume Mistress Relationship Specialty Start Date End Date Elsewhere, Pcp PCP - General 07/02/19
--- OUTSIDE RECORDS SUMMARY | 2022-02-12 14:28 | XMS_ITS | Encounter Summary ---
:1985 Author Organization [facility] Address [address] [place] [id number] Care Team Providers Name Role Phone Unavailable Primary Care Provider Unavailable Encounter Details Date Type Department Care Team Description 06/15/2016 - Hospital Encounter HX [facility] ANDREA CamarenaShannandarshan 06/17/2016 MED/SRG/PD Holland M.D., Ph.D. [address] [place] [address] Social History Tobacco Use Types Packs/Day Years Used Date Smoking Tobacco: Every Day Sex Assigned at Date Recorded Not on file documented as of this encounter Last Filed Vital Signs Vital Sign Reading Time Taken Comments Blood Pressure 118/57 06/17/2016 4:00 AM LAP GRINDER Pulse 71 06/17/2016 4:00 AM LAP GRINDER Temperature - - Respiratory Rate 22 06/17/2016 4:00 AM LAP GRINDER Oxygen Saturation - - Inhaled Oxygen Concentration - - Weight 84.1 kg (185 lb 6.5 oz) 06/17/2016 3:22 AM LAP GRINDER Height 170 cm (5' 6.93) 06/17/2016 4:00 AM LAP GRINDER Body Mass Index 29.1 06/17/2016 3:22 AM LAP GRINDER documented in this encounter Discharge Summaries Janice Colon, R.N. - 06/17/2016 2:18 PM CST Discharge Summary Discharge Summary Entered On: 06/17/2016 14:25 LAP GRINDER Performed On: 06/17/2016 14:18 LAP GRINDER by JANICE COLON RN DC Information Discharged to : Home with family care Current Home Treatments : None Home Equipment : None Professional Skilled Services : None Special Services and Community Resources : None Mode of Discharge : Wheelchair Discharge Transportation : Private vehicle Accompanied By : Nurse aide Date/Time of Discharge : 06/17/2016 14:25 LAP GRINDER Add'l Discharge Comments : discharge instructions were discussed. Pain management was gone over and the importance of still picking up her suppositories to help with pain. JANICE COLON RN - 06/17/2016 14:18 LAP GRINDER Education General Patient Education Powergrid Topics : Discharge instructions/Medication list, Importance of follow-up visits, Medication dosage, route, scheduling, Printed materials, When to call health care provider Individuals Taught : Patient Barriers to Learning : None evident Teaching Method : Explanation, Printed materials Teaching Evaluation : Verbalizes understanding JANICE COLON RN - 06/17/2016 14:18 LAP GRINDER Valuables/Belongings Valuables/Belongings Grid Valuables at Bedside Clothes, Patient Valuables : Jacket, Pants, Shirt, Shoes, Undergarments, Other: t-shirt Electronic Devices : Cell phone Jewelry : Bracelet, Wedding band, Other: nose stud Monetary Items : Purse Personal Devices : None JANICE COLON RN - 06/17/2016 14:18 LAP GRINDER Room Orientation/Facility Policy Reviewed : Yes Belongings Sent Home With : spouse will take purse home Home Medication Disposition : None brought in with patient JANICE COLON RN - 06/17/2016 14:18 LAP GRINDER Source: [employer] Document Id: [id number] LAP GRINDER!31 GRINDER Khalif Camarena M.D., Ph.D. - 06/17/2016 12:00 [...] MD, PhD On: 07/06/2016 04:44 PM Source: [facility] MHSDOLBEYNONRADSYS Document Id: [id number] GRINDER Frances Vásquez R.N. - 06/15/2016 8:04 PM CST ED Discharge Instructions [address] [address] Name: RADHA BLANCHARD Date of : 1985 12:00 AM Visit Date: 06/15/2016 5:00 PM [facility] Number: [id number] Address: [address] [place] [phone] Primary Care Provider: SOFIE VÁZQUEZ MD IMPORTANT: [facility] in [place] would like to thank you for allowing [...] if you dont have one. Go to [email or web address] and click on Create Your [...] ride home with a responsible alliance party. I, RADHA BLANCHARD , or responsible alliance party have received this information and my questions have been answered. I have discussed any challenges I see with this plan with the nurse or physician. Patient Signature or Responsible Alliance Party/Relationship Date Time Provider Signature Date Time Source: [employer] Document Id: [id number] GRINDER Frances Vásquez R.N. - 06/15/2016 8:04 PM CST ED Depart Summary [facility] Emergency Department / Urgent Care Clinical Discharge Summary PERSON INFORMATION Name RADHA BLANCHARD Age 31 Years 1985 12:00 AM Sex Female Language Mauritian PCP SOFIE VÁZQUEZ MD Marital Status Visit Id Visit Reason Rectal pain; rectal pain Specialty Enc Type Observation Med Service Emergency Medicine Referred by [facility] ED/UC Discharge Tracking Id [id number] Checkout 06/15/2016 8:04 PM Checkin 06/15/2016 5:00 PM Acuity 4 -Less Urgent Dispo Type Admitted as Inpatient to this Hospital Arrival 06/15/2016 5:00 PM Reg Status Complete LOS 000 03:04 Address: [address] [place] [phone] Comment: PROVIDER INFORMATION Provider Role Provider Contact Time FRANCES VÁSQUEZ CHEMICAL SUPERVISOR Nurse 06/15/16 17:28 MAYLIN MOORE DO ED Provider 06/15/16 17:50 DIAGNOSIS Comment: PATIENT EDUCATION INFORMATION Instructions: Follow up: Source: [employer] Document Id: [id number] GRINDER documented in this encounter Medications at Time [...] Letha Tafoya - 06/17/2016 2:20 PM CST 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 paint factory worker visit to patient with and daughter [...] has founda cheapter medication. Patient was informed [facility] medication assistance does not include her need. Patient states she will need to wait until Wednesday to obtain medication. Patient declines any further services from social and human services assistant. Electronically Signed By: LETHA TAFOYA On: 06/17/2016 02:24 PM Source: [employer] Document Id: [id number] GRINDER Khalif Camarena M.D., Ph.D. - 06/17/2016 12:00 AM CST [id number] DAILY PROGRESS NOTE SUBJECTIVE Mrs. Blanchard said that she did not sleep well again last night. She had a bowel movement at around 2 a.m. and had exquisite, poorly controlled pain. It took several hours to get a pearl peller on her pain andshe has finally started [...] her own. I have also asked the social and human services assistant to meet with her to discuss financing for her outpatient medications, given her limited financial means. I will plan to see Ms. Blanchard back in about 1 week's time to reassess her symptoms and wounds. DISPOSITION Anticipate hospital dismissal later today. Khalif Camarena M.D., Ph.D./aos Electronically Signed By: KHALIF CAMARENA MD, PhD On: 07/06/2016 04:46 PM Source: [facility] MHSDOLBEYNONRADSYS Document Id: [id number] GRINDER Khalif Camarena M.D., Ph.D. - 06/16/2016 12:00 AM CST [id number] SUBJECTIVE Mrs. Blanchard reports that she is [...] MD, PhD On: 07/06/2016 04:47 PM Source: [facility] MHSDOLBEYNONRADSYS Document Id: [id number] GRINDER documented in this encounter H&P Notes Khalif Camarena M.D., Ph.D. - 06/15/2016 8:05 PM CST GIGS-ADM CHIEF COMPLAINT/REASON FOR VISIT Postoperative pain. HISTORY OF PRESENT ILLNESS Ms. Blanchard is a 31-year-old female with a recent history of multicolumn hemorrhoidectomy who presented to the [facility] Emergency Department this evening with complaints [...] MD, PhD On: 07/06/2016 04:30 PM Source: [facility] MHSDOLBEYNONRADSYS Document Id: [id number] GRINDER documented in this encounter Procedure Notes Ludmila Solitario, R.N. - 06/16/2016 1:20 PM CST Peripheral IV Peripheral IV Entered On: 06/16/2016 13:21 LAP GRINDER Performed On: 06/16/2016 13:20 LAP GRINDER by LUDMILA SOLITARIO RN Peripheral IV Peripheral IV Assess/Intervention Grid Peripheral IV #1 Peripheral IV #2 IV Activity : Start Number of Attempts : 1 Date of Insertion : 06/16/2016 LAP GRINDER IV Site : Forearm Laterality : Left Catheter Size : 22 Catheter Type : Over the needle Site Condition : No complications Drainage Description : None Infiltration Score : 0 Phlebitis Score : 0 Dressing/ Activity : Dry, Intact, Transparent Flow/ Patency : No complications LUDMILA SOLITARIO RN - 06/16/2016 13:20 LAP GRINDER LUDMILA SOLITARIO RN - 06/16/2016 13:20 LAP GRINDER Source: [facility] IES Document Id: [id number] LAP GRINDER!18 GRINDER Ludmila Solitario RDevendra - 06/16/2016 12:51 PM CST Peripheral IV Peripheral IV Entered On: 06/16/2016 12:51 LAP GRINDER Performed On: 06/16/2016 12:51 LAP GRINDER by LUDMILA SOLITARIO RN Peripheral IV Peripheral IV Assess/Intervention Grid Peripheral IV #1 Peripheral IV #2 IV Activity : Discontinue Removal : Catheter intact Catheter intact, Hemostasis within expected timeframe Date of Insertion : 06/15/2016 LAP GRINDER 06/15/2016 LAP GRINDER Discontinued Date : 06/15/2016 LAP GRINDER 06/16/2016 LAP GRINDER IV Site : Antecubital Forearm Laterality : Right Right Catheter Size : 20 20 Catheter Type : Over the needle Comments (Comment: per pt request [LUDMILA SOLITARIO RN - 06/16/2016 12:51 LAP GRINDER] ) LUDMILA SOLITARIO RN - 06/16/2016 12:51 LAP GRINDER LUDMILA SOLITARIO RN - 06/16/2016 12:51 LAP GRINDER Source: [facility] IES Document Id: [id number] LAP GRINDER!19 GRINDER Toribio Cooley R.N. - 06/15/2016 10:16 PM CST Peripheral IV Peripheral IV Entered On: 06/15/2016 22:19 LAP GRINDER Performed On: 06/15/2016 22:16 LAP GRINDER by TORIBIO COOLEY RN Peripheral IV Peripheral IV Assess/Intervention Grid Peripheral IV #1 Peripheral IV #2 IV Activity : Start Removal : Catheter intact Number of Attempts : 1 Date of Insertion : 06/15/2016 LAP GRINDER 06/15/2016 LAP GRINDER Discontinued Date : 06/15/2016 LAP GRINDER IV Site : Antecubital Forearm Laterality : Right Right Catheter Size : 20 20 Catheter Type : Over the needle Site Condition : No complications Drainage Description : None Dressing/ Activity : Dry, Intact, Transparent Flow/ Patency : No complications TORIBIO COOLEY RN - 06/15/2016 22:16 LAP GRINDER TORIBIO COOLEY RN - 06/15/2016 22:16 LAP GRINDER Source: [employer] Document Id: [id number] LAP GRINDER!22 GRINDER documented in this encounter Nursing Notes Janice Colon R.N. - 06/17/2016 12:30 PM CST PRN Response PRN Response Entered On: 06/17/2016 12:30 LAP GRINDER Performed On: 06/17/2016 12:30 LAP GRINDER by JANICE COLON RN Intervention Information: diphenhydrAMINE Performed by JANICE COLON RN on 06/17/2016 10:50:00 LAP GRINDER diphenhydrAMINE,50mg PO,Itching PRN Medication Effectiveness Evaluation PRN Medication Effective : Yes Post Medication Pain Assessment : N/A JANICE COLON RN - 06/17/2016 12:30 LAP GRINDER Source: [employer] Document Id: [id number] LAP GRINDER!4 GRINDER Janice Colon R.N. - 06/17/2016 9:53 AM CST PRN Response PRN Response Entered On: 06/17/2016 9:53 LAP GRINDER Performed On: 06/17/2016 9:53 LAP GRINDER by JANICE COLON RN Intervention Information: diazepam Performed by JANICE COLON RN on 06/17/2016 08:23:00 LAP GRINDER diazePAM,10mg PO,Spasm PRN Medication Effectiveness Evaluation PRN Medication Effective : Yes Post Medication Pain Assessment : N/A JANICE COLON RN - 06/17/2016 9:53 LAP GRINDER Source: [facility] IES Document Id: [id number] LAP GRINDER!4 GRINDER Janice Colon R.N. - 06/17/2016 9:53 AM CST PRN Response PRN Response Entered On: 06/17/2016 9:57 LAP GRINDER Performed On: 06/17/2016 9:53 LAP GRINDER by JANICE COLON RN Intervention Information: oxycodone Performed by JANICE COLON RN on 06/17/2016 08:37:00 LAP GRINDER oxyCODONE,2tab(s) PO,Pain PRN Medication Effectiveness Evaluation PRN Medication Effective : Yes Post Medication Pain Assessment : 3 JANICE COLON RN - 06/17/2016 9:53 LAP GRINDER Source: [facility] IES Document Id: [id number] LAP GRINDER!4 GRINDER Harika Jensen R.N. - 06/17/2016 6:22 AM CST PRN Response PRN Response Entered On: 06/17/2016 7:03 LAP GRINDER Performed On: 06/17/2016 6:22 LAP GRINDER by HARIKA JENSEN RN Intervention Information: ketorolac Performed by HARIKA JENSEN RN on 06/17/2016 05:52:00 LAP GRINDER ketorolac,15mg IV Push,Wrist Right,Pain PRN Medication Effectiveness Evaluation PRN Medication Effective : Yes HARIKA JENSEN RN - 06/17/2016 7:03 LAP GRINDER Source: [facility] IES Document Id: [id number] LAP GRINDER!3 GRINDER Harika Jensen R.N. - 06/17/2016 4:00 AM CST PRN Response PRN Response Entered On: 06/17/2016 6:04 LAP GRINDER Performed On: 06/17/2016 4:00 LAP GRINDER by HARIKA JENSEN RN Intervention Information: diazepam Performed by HARIKA JENSEN RN on 06/17/2016 02:04:00 LAP GRINDER diazePAM,5mg PO,Spasm PRN Medication Effectiveness Evaluation PRN Medication Effective : Yes HARIKA JENSEN RN - 06/17/2016 6:04 LAP GRINDER Source: [facility] Document Id: [id number] LAP GRINDER!3 GRINDER Harika Jensen R.N. - 06/17/2016 3:04 AM CST PRN Response PRN Response Entered On: 06/17/2016 6:05 LAP GRINDER Performed On: 06/17/2016 3:04 LAP GRINDER by HARIKA JENSEN RN Intervention Information: oxycodone Performed by HARIKA JENSEN RN on 06/17/2016 02:04:00 LAP GRINDER oxyCODONE,10mg PO,Pain PRN Medication Effectiveness Evaluation PRN Medication Effective : No HARIKA JENSEN RN - 06/17/2016 6:05 LAP GRINDER Source: [employer] Document Id: [id number] LAP GRINDER!3 GRINDER Harika Jensen R.N. - 06/17/2016 1:32 AM CST PRN Response PRN Response Entered On: 06/17/2016 1:46 LAP GRINDER Performed On: 06/17/2016 1:32 LAP GRINDER by HARIKA JENSEN RN Intervention Information: hydromorphone Performed by KATYA HARVEY RN on 06/17/2016 01:02:00 LAP GRINDER HYDROmorphone,0.5mg IV Push,Forearm Left Lower,Pain PRN Medication Effectiveness Evaluation PRN Medication Effective : No HARIKA JENSEN RN - 06/17/2016 1:46 LAP GRINDER Source: [facility] IES Document Id: [id number] LAP GRINDER!3 GRINDER Harika Jensen R.N. - 06/16/2016 11:18 PM CST PRN Response PRN Response Entered On: 06/17/2016 1:48 LAP GRINDER Performed On: 06/16/2016 23:18 LAP GRINDER by HARIKA JENSEN RN Intervention Information: zolpidem Performed by HARIKA JENSEN RN on 06/16/2016 22:18:00 LAP GRINDER zolpidem,5mg PO,Insomnia PRN Medication Effectiveness Evaluation PRN Medication Effective : No HARIKA JENSEN RN - 06/17/2016 1:48 LAP GRINDER Source: [facility] IES Document Id: [id number] LAP GRINDER!3 GRINDER Harika Jensen R.N. - 06/16/2016 10:48 PM CST PRN Response PRN Response Entered On: 06/17/2016 1:45 LAP GRINDER Performed On: 06/16/2016 22:48 LAP GRINDER by HARIKA JENSEN RN Intervention Information: ketorolac Performed by HARIKA JENSEN RN on 06/16/2016 22:18:00 LAP GRINDER ketorolac,15mg IV Push,Wrist Left,Pain PRN Medication Effectiveness Evaluation PRN Medication Effective : No HARIKA JENSEN RN - 06/17/2016 1:45 LAP GRINDER Source: [facility] IES Document Id: [id number] LAP GRINDER!3 GRINDER Harika Jensen R.N. - 06/16/2016 10:02 PM CST PRN Response PRN Response Entered On: 06/17/2016 1:48 LAP GRINDER Performed On: 06/16/2016 22:02 LAP GRINDER by HARIKA JENSEN RN Intervention Information: oxycodone Performed by ROSALIND DING RN on 06/16/2016 21:02:20 LAP GRINDER oxyCODONE,10mg PO,Pain PRN Medication Effectiveness Evaluation PRN Medication Effective : No HARIKA JENSEN RN - 06/17/2016 1:48 LAP GRINDER Source: [employer] Document Id: [id number] LAP GRINDER!3 GRINDER Harika Jensen R.N. - 06/16/2016 9:15 PM CST PRN Response PRN Response Entered On: 06/16/2016 21:09 LAP GRINDER Performed On: 06/16/2016 21:15 LAP GRINDER by HARIKA JENSEN RN Intervention Information: diazepam Performed by HARIKA JENSEN RN on 06/16/2016 20:15:00 LAP GRINDER diazePAM,5mg PO,Spasm PRN Medication Effectiveness Evaluation PRN Medication Effective : No HARIKA JENSEN RN - 06/16/2016 21:09 LAP GRINDER Source: [facility] Document Id: [id number] LAP GRINDER!3 GRINDER Harika Jensen R.N. - 06/16/2016 8:58 PM CST PRN Response PRN Response Entered On: 06/16/2016 20:58 LAP GRINDER Performed On: 06/16/2016 20:58 LAP GRINDER by HARIKA JENSEN RN Intervention Information: hydromorphone Performed by HARIKA JENSEN RN on 06/16/2016 20:15:00 LAP GRINDER HYDROmorphone,0.5mg IV Push,Wrist Left,Pain PRN Medication Effectiveness Evaluation PRN Medication Effective : No HARIKA JENSEN RN - 06/16/2016 20:58 LAP GRINDER Source: [facility] IES Document Id: [id number] LAP GRINDER!3 GRINDER Roopa Duarte R.N. - 06/16/2016 6:05 PM CST PRN Response PRN Response Entered On: 06/16/2016 18:45 LAP GRINDER Performed On: 06/16/2016 18:05 LAP GRINDER by ROOPA DUARTE RN Intervention Information: hydromorphone Performed by ROOPA DUARTE RN on 06/16/2016 17:35:00 LAP GRINDER HYDROmorphone,0.5mg IV Push,Wrist Left,Pain PRN Medication Effectiveness Evaluation PRN Medication Effective : Yes ROOPA DUARTE RN - 06/16/2016 18:45 LAP GRINDER Source: [facility] IES Document Id: [id number] LAP GRINDER!3 GRINDER Roopa Duarte R.N. - 06/16/2016 5:30 PM CST PRN Response PRN Response Entered On: 06/16/2016 18:00 LAP GRINDER Performed On: 06/16/2016 17:30 LAP GRINDER by ROOPA DUARTE RN Intervention Information: oxycodone Performed by ROOPA DUARTE RN on 06/16/2016 16:39:00 LAP GRINDER oxyCODONE,10mg PO,Pain PRN Medication Effectiveness Evaluation PRN Medication Effective : No Post Medication Pain Assessment : 7 ROOPA DUARTE RN - 06/16/2016 18:00 LAP GRINDER Source: [facility] IES Document Id: [id number] LAP GRINDER!4 GRINDER Roopa Duarte R.N. - 06/16/2016 4:28 PM CST PRN Response PRN Response Entered On: 06/16/2016 17:24 LAP GRINDER Performed On: 06/16/2016 16:28 LAP GRINDER by ROOPA DUARTE RN Intervention Information: ketorolac Performed by ROOPA DUARTE RN on 06/16/2016 15:58:00 LAP GRINDER ketorolac,15mg IV Push,Wrist Left,Pain PRN Medication Effectiveness Evaluation PRN Medication Effective : Yes Post Medication Pain Assessment : 5 ROOPA DUARTE RN - 06/16/2016 17:24 LAP GRINDER Source: [facility] IES Document Id: [id number] LAP GRINDER!4 GRINDER Ludmila Solitario REmekaNEmeka - 06/16/2016 2:32 PM CST PRN Response PRN Response Entered On: 06/16/2016 14:32 LAP GRINDER Performed On: 06/16/2016 14:32 LAP GRINDER by LUDMILA SOLITARIO RN Intervention Information: oxycodone Performed by LUDMILA SOLITARIO RN on 06/16/2016 13:15:00 LAP GRINDER oxyCODONE,10mg PO,Pain PRN Medication Effectiveness Evaluation PRN Medication Effective : No Post Medication Pain Assessment : 7 LUDMILA SOLITARIO RN - 06/16/2016 14:32 LAP GRINDER Source: [facility] IES Document Id: [id number] LAP GRINDER!4 GRINDER Ludmila Solitario R.N. - 06/16/2016 2:32 PM CST PRN Response PRN Response Entered On: 06/16/2016 14:32 LAP GRINDER Performed On: 06/16/2016 14:32 LAP GRINDER by LUDMILA SOLITARIO RN Intervention Information: hydromorphone Performed by LUDMILA SOLITARIO RN on 06/16/2016 13:58:00 LAP GRINDER HYDROmorphone,0.5mg IV Push,Forearm Left Lower,Pain PRN Medication Effectiveness Evaluation PRN Medication Effective : Yes Post Medication Pain Assessment : 6 LUDMILA SOLITARIO RN - 06/16/2016 14:32 LAP GRINDER Source: [facility] IES Document Id: [id number] LAP GRINDER!4 GRINDER Ludmila Solitario R.N. - 06/16/2016 2:32 PM CST PRN Response PRN Response Entered On: 06/16/2016 14:32 LAP GRINDER Performed On: 06/16/2016 14:32 LAP GRINDER by LUDMILA SOLITARIO RN Intervention Information: acetaminophen Performed by LUDMILA SOLITARIO RN on 06/16/2016 13:58:00 LAP GRINDER acetaminophen,500mg PO,Pain / Fever PRN Medication Effectiveness Evaluation PRN Medication Effective : Yes Post Medication Pain Assessment : 6 LUDMILA SOLITARIO RN - 06/16/2016 14:32 LAP GRINDER Source: [facility] IES Document Id: [id number] LAP GRINDER!4 GRINDER Ludmila Solitario REmekaN. - 06/16/2016 2:32 PM CST PRN Response PRN Response Entered On: 06/16/2016 14:32 LAP GRINDER Performed On: 06/16/2016 14:32 LAP GRINDER by LUDMILA SOLITARIO RN Intervention Information: diphenhydrAMINE Performed by LUDMILA SOLITARIO RN on 06/16/2016 14:19:00 LAP GRINDER diphenhydrAMINE,50mg PO,Itching PRN Medication Effectiveness Evaluation PRN Medication Effective : Yes LUDMILA SOLITARIO RN - 06/16/2016 14:32 LAP GRINDER Source: [facility] IES Document Id: [id number] LAP GRINDER!3 GRINDER Ludmila Solitario R.N. - 06/16/2016 11:19 AM CST PRN Response PRN Response Entered On: 06/16/2016 11:19 LAP GRINDER Performed On: 06/16/2016 11:19 LAP GRINDER by LUDMILA SOLITARIO RN Intervention Information: diazepam Performed by LUDMILA SOLITARIO RN on 06/16/2016 10:12:00 LAP GRINDER diazePAM,5mg PO,Spasm PRN Medication Effectiveness Evaluation PRN Medication Effective : Yes LUDMILA SOLITARIO RN - 06/16/2016 11:19 LAP GRINDER Source: [facility] Document Id: [id number] LAP GRINDER!3 GRINDER Ludmila Solitario REmekaN. - 06/16/2016 11:19 AM CST PRN Response PRN Response Entered On: 06/16/2016 11:19 LAP GRINDER Performed On: 06/16/2016 11:19 LAP GRINDER by LUDMILA SOLITARIO RN Intervention Information: oxycodone Performed by LUDMILA SOLITARIO RN on 06/16/2016 10:12:00 LAP GRINDER oxyCODONE,10mg PO,Pain PRN Medication Effectiveness Evaluation PRN Medication Effective : Yes Post Medication Pain Assessment : 5 LUDMILA SOLITARIO RN - 06/16/2016 11:19 LAP GRINDER Source: [employer] Document Id: [id number] LAP GRINDER!4 GRINDER Ludmila Solitario R.N. - 06/16/2016 11:00 AM CST PRN Response PRN Response Entered On: 06/16/2016 11:19 LAP GRINDER Performed On: 06/16/2016 11:00 LAP GRINDER by LUDMILA SOLITARIO RN Intervention Information: ketorolac Performed by LUDMILA SOLITARIO RN on 06/16/2016 09:47:00 LAP GRINDER ketorolac,15mg IV Push,Forearm Right Lower,Pain PRN Medication Effectiveness Evaluation PRN Medication Effective : No Post Medication Pain Assessment : 6 LUDMILA SOLITARIO RN - 06/16/2016 11:18 LAP GRINDER Source: [facility] [employer] Document Id: [id number] LAP GRINDER!4 GRINDER Ludmila Solitario RJonathan. - 06/16/2016 9:20 AM CST PRN Response PRN Response Entered On: 06/16/2016 9:20 LAP GRINDER Performed On: 06/16/2016 9:20 LAP GRINDER by LUDMILA SOLITARIO RN Intervention Information: hydromorphone Performed by LUDMILA SOLITARIO RN on 06/16/2016 08:12:00 LAP GRINDER HYDROmorphone,0.5mg IV Push,Forearm Right Mid,Pain PRN Medication Effectiveness Evaluation PRN Medication Effective : Yes Post Medication Pain Assessment : 5 LUDMILA SOLITARIO RN - 06/16/2016 9:20 LAP GRINDER Source: [facility] [employer] Document Id: [id number] LAP GRINDER!4 GRINDER Ludmila Solitario R.N. - 06/16/2016 9:20 AM CST PRN Response PRN Response Entered On: 06/16/2016 9:20 LAP GRINDER Performed On: 06/16/2016 9:20 LAP GRINDER by LUDMILA SOLITARIO RN Intervention Information: acetaminophen Performed by LUDMILA SOLITARIO RN on 06/16/2016 08:12:00 LAP GRINDER acetaminophen,500mg PO,Pain / Fever PRN Medication Effectiveness Evaluation PRN Medication Effective : Yes Post Medication Pain Assessment : 5 LUDMILA SOLITARIO RN - 06/16/2016 9:20 LAP GRINDER Source: [facility] IES Document Id: [id number] LAP GRINDER!4 GRINDER Ludmila Solitario RDevendra - 06/16/2016 8:58 AM CST PRN Response PRN Response Entered On: 06/16/2016 8:58 LAP GRINDER Performed On: 06/16/2016 8:58 LAP GRINDER by LUDMIAL SOLITARIO RN Intervention Information: oxycodone Performed by HERMILO ESTEVES RN on 06/16/2016 05:58:00 LAP GRINDER oxyCODONE,10mg PO,Pain PRN Medication Effectiveness Evaluation PRN Medication Effective : No Post Medication Pain Assessment : 6 LUDMILA SOLITARIO RN - 06/16/2016 8:58 LAP GRINDER Source: [facility] Document Id: [id number] LAP GRINDER!4 GRINDER Hermilo Esteves R.N. - 06/16/2016 6:03 AM CST PRN Response PRN Response Entered On: 06/16/2016 6:03 LAP GRINDER Performed On: 06/16/2016 6:03 LAP GRINDER by HERMLIO ESTEVES RN Intervention Information: zolpidem Performed by HERMILO ESTEVES RN on 06/16/2016 04:40:00 LAP GRINDER zolpidem,5mg PO,Insomnia PRN Medication Effectiveness Evaluation PRN Medication Effective : No Post Medication Pain Assessment : N/A HERMILO ESTEVES RN - 06/16/2016 6:03 LAP GRINDER Source: [employer] Document Id: [id number] LAP GRINDER!4 GRINDER Hermilo Esteves I RDevendra - 06/16/2016 4:44 AM CST PRN Response PRN Response Entered On: 06/16/2016 4:44 LAP GRINDER Performed On: 06/16/2016 4:44 LAP GRINDER by HERMILO ESTEVES RN Intervention Information: hydromorphone Performed by HERMILO ESTEVES RN on 06/16/2016 01:44:00 LAP GRINDER HYDROmorphone,0.5mg IV Push,Forearm Right Mid,Pain PRN Medication Effectiveness Evaluation PRN Medication Effective : No Post Medication Pain Assessment : 6 HERMILO ESTEVES RN - 06/16/2016 4:44 LAP GRINDER Source: [facility] IES Document Id: [id number] LAP GRINDER!4 GRINDER Hermilo Esteves R.N. - 06/16/2016 4:44 AM CST PRN Response PRN Response Entered On: 06/16/2016 4:44 LAP GRINDER Performed On: 06/16/2016 4:44 LAP GRINDER by HERMILO ESTEVES I RN Intervention Information: oxycodone Performed by HERMILO ESTEVES I RN on 06/16/2016 01:10:00 LAP GRINDER oxyCODONE,10mg PO,Pain PRN Medication Effectiveness Evaluation PRN Medication Effective : No Post Medication Pain Assessment : 6 HERMILO ESTEVES RN - 06/16/2016 4:44 LAP GRINDER Source: [facility] IES Document Id: [id number] LAP GRINDER!4 GRINDER Hermilo Esteves R.N. - 06/16/2016 4:23 AM CST PRN Response PRN Response Entered On: 06/16/2016 5:51 LAP GRINDER Performed On: 06/16/2016 4:23 LAP GRINDER by HERMILO ESTEVES I RN Intervention Information: ketorolac Performed by HERMILO ESTEVES I RN on 06/16/2016 03:53:00 LAP GRINDER ketorolac,15mg IV Push,Forearm Right Lower,Pain PRN Medication Effectiveness Evaluation PRN Medication Effective : No Post Medication Pain Assessment : 6 HERMILO ESTEVES RN - 06/16/2016 5:51 LAP GRINDER Source: [facility] IES Document Id: [id number] LAP GRINDER!4 GRINDER Hermilo Esteves R.N. - 06/16/2016 12:14 AM CST PRN Response PRN Response Entered On: 06/16/2016 1:54 LAP GRINDER Performed On: 06/16/2016 0:14 LAP GRINDER by HERMILO ESTEVES I RN Intervention Information: diphenhydrAMINE Performed by TORIBIO COOLEY RN on 06/15/2016 23:14:00 LAP GRINDER diphenhydrAMINE,50mg PO,Itching PRN Medication Effectiveness Evaluation PRN Medication Effective : Yes HERMILO ESTEVES I RN - 06/16/2016 1:54 LAP GRINDER Source: [facility] IES Document Id: [id number] LAP GRINDER!3 GRINDER Hermilo Esteves R.N. - 06/15/2016 11:16 PM CST PRN Response PRN Response Entered On: 06/16/2016 1:03 LAP GRINDER Performed On: 06/15/2016 23:16 LAP GRINDER by HERMILO ESTEVES I RN Intervention Information: hydromorphone Performed by TORIBIO COOLEY RN on 06/15/2016 22:46:49 LAP GRINDER HYDROmorphone,0.25mg IV Push,Arm Right,Pain PRN Medication Effectiveness Evaluation PRN Medication Effective : No HERMILO ESTEVES RN - 06/16/2016 1:03 LAP GRINDER Source: [facility] IES Document Id: [id number] LAP GRINDER!3 GRINDER Toribio Cooley R.N. - 06/15/2016 10:52 PM CST rporting chest heavines after dilaudid injection slow IVP. nurse remaining at bedside. notifying primary nurse of patient complaint. Electronically Signed By: TORIBIO COOLEY RN On: 06/15/2016 10:54 PM Source: [facility] IES Document Id: [id number] GRINDER Hermilo Esteves R.N. - 06/15/2016 10:41 PM CST PRN Response PRN Response Entered On: 06/15/2016 22:41 LAP GRINDER Performed On: 06/15/2016 22:41 LAP GRINDER by HERMILO ESTEVES I RN Intervention Information: ketorolac Performed by HERMILO ESTEVES I RN on 06/15/2016 21:40:00 LAP GRINDER ketorolac,15mg IV Push,Antecubital Right,Pain PRN Medication Effectiveness Evaluation PRN Medication Effective : Yes Post Medication Pain Assessment : 5 HERMILO ESTEVES I RN - 06/15/2016 22:41 LAP GRINDER Source: [employer] Document Id: [id number] LAP GRINDER!4 GRINDER Hermilo Esteves R.N. - 06/15/2016 10:41 PM CST PRN Response PRN Response Entered On: 06/15/2016 22:41 LAP GRINDER Performed On: 06/15/2016 22:41 LAP GRINDER by HERMILO ESTEVES RN Intervention Information: oxycodone Performed by HERMILO ESTEVES I RN on 06/15/2016 21:40:00 LAP GRINDER oxyCODONE,10mg PO,Pain PRN Medication Effectiveness Evaluation PRN Medication Effective : Yes Post Medication Pain Assessment : 5 HERMILO ESTEVES I RN - 06/15/2016 22:41 LAP GRINDER Source: [employer] Document Id: [id number] LAP GRINDER!4 GRINDER Hermilo Esteves R.N. - 06/15/2016 9:53 PM CST PRN Response PRN Response Entered On: 06/15/2016 21:53 LAP GRINDER Performed On: 06/15/2016 21:53 LAP GRINDER by HERMILO ESTEVES I RN Intervention Information: hydromorphone Performed by HERMILO ESTEVES I RN on 06/15/2016 20:38:00 LAP GRINDER HYDROmorphone,0.5mg IV Push,Antecubital Right,Pain PRN Medication Effectiveness Evaluation PRN Medication Effective : No Post Medication Pain Assessment : 7 HERMILO ESTEVES I RN - 06/15/2016 21:53 LAP GRINDER Source: [employer] Document Id: [id number] LAP GRINDER!4 GRINDER documented in this encounter ED Notes Frances Vásquez R.N. - 06/15/2016 8:04 PM CST ED Disposition Summary ED Disposition Summary Entered On: 06/15/2016 20:04 LAP GRINDER Performed On: 06/15/2016 20:04 LAP GRINDER by FRANCES VÁSQUEZ RN ED Disposition Summary Present in Room During Exam/Procedure : Alone Mode of Discharge : Stretcher Nurse [facility] RN Date/Time Nurse Received Report : 06/15/2016 20:04 LAP GRINDER Transporter : Tech Printed Discharge Instructions Given to Patient : No Reason Discharge Instructions Not Given : [facility] Patient Status at Discharge from ED : Improved FRANCES VÁSQUEZ RN - 06/15/2016 20:04 LAP GRINDER Source: [employer] Document Id: [id number] LAP GRINDER!10 GRINDER Frances Vásquez R.N. - 06/15/2016 8:04 PM CST ED Pain Assessment ED Pain Assessment Entered On: 06/15/2016 20:04 LAP GRINDER Performed On: 06/15/2016 20:04 LAP GRINDER by FRANCES VÁSQUEZ RN Pain Assessment Pain Symptoms : Yes FRANCES VÁSQUEZ RN - 06/15/2016 20:04 LAP GRINDER [facility] Document Id: [id number] LAP GRINDER!3 GRINDER Frances Vásquez R.N. - 06/15/2016 7:26 PM CST ED Treatments and Procedures ED Treatments and Procedures Entered On: 06/15/2016 19:26 LAP GRINDER Performed On: 06/15/2016 19:26 LAP GRINDER by FRANCES VÁSQUEZ RN Peripheral IV Peripheral IV Assess/Intervention Grid Peripheral IV #1 IV Activity : Start Number of Attempts : 1 Date of Insertion : 06/15/2016 LAP GRINDER IV Site : Antecubital Laterality : Right Catheter Size : 20 Site Condition : No complications Drainage Description : None Dressing/ Activity : Intact, Semipermeable membrane, Transparent FRANCES VÁSQUEZ RN - 06/15/2016 19:26 LAP GRINDER [facility] Document Id: [id number] LAP GRINDER!13 GRINDER Frances Vásquez R.N. - 06/15/2016 7:25 PM CST ED Nurse Reassess Document Has Been Updated ED Nurse Reassess Entered On: 06/15/2016 19:25 LAP GRINDER Performed On: 06/15/2016 19:25 LAP GRINDER by FRANCES VÁSQUEZ RN Pain Assessment Pain Symptoms : Yes FRANCES VÁSQUEZ RN - 06/15/2016 19:25 LAP GRINDER Pain Scale Pain Scale Verbal 0-10 : Open FRANCES VÁSQUEZ RN - 06/15/2016 19:25 LAP GRINDER Pain Pain Assessment Grid Pain 1 Location : Rectal Intensity : 7 Comments (Comment: denies pain medication until she talks to surgeon [FRANCES VÁSQUEZ RN - 06/15/2016 20:03 LAP GRINDER] ) FRANCES VÁSQUEZ RN - 06/15/2016 19:25 LAP GRINDER Resp Reassess Respiratory Patient Stated Symptoms : None Distress : None Airway : Patent Respiratory Pattern : Regular Respirations : Unlabored FRANCES VÁSQUEZ RN - 06/15/2016 19:25 LAP GRINDER CV Reassess CV Patient Stated Symptoms : None Skin Color : Normal for ethnicity Skin Description : Dry Skin Temperature : Warm FRANCES VÁSQUEZ RN - 06/15/2016 19:25 LAP GRINDER Neuro Reassess Last Well Time Known : Not applicable Orientation : Oriented x 3 Characteristics of Speech : Clear Level of Consciousness : Alert FRANCES VÁSQUEZ RN - 06/15/2016 19:25 LAP GRINDER GI Reassess GI Patient Stated Symptoms : Other: rectal pain FRANCES VÁSQUEZ RN - 06/15/2016 19:25 LAP GRINDER Source: [facility] POWERCHART Document Id: [id number] LAP GRINDER!4 GRINDER Frances Vásquez R.N. - 06/15/2016 5:33 PM CST ED Primary Assessment Document Has Been Updated ED Primary Assessment Entered On: 06/15/2016 17:37 LAP GRINDER Performed On: 06/15/2016 17:33 LAP GRINDER by FRANCES VÁSQUEZ RN Reason For Visit (As Of: 06/15/2016 17:37:17 LAP GRINDER) Problems(Active) Abuse Tobacco Smoking NOS (ICD-10-CM :Z72.0 ) Name of Problem: Abuse Tobacco Smoking NOS ; Recorder:DARIUS PARKS MD; Confirmation: Confirmed ; Classification: Medical ; Code: Z72.0 ; Contributor System: PowerChart ; Last Updated: 05/12/2016 15:21 LAP GRINDER ; Life Cycle Date: 05/12/2016 ; Life [...] System: PowerChart ; Last Updated: 05/12/2016 15:20 LAP GRINDER ; Life Cycle Date: 05/12/2016 ; Life Cycle Status: Active ; Responsible Provider: DARIUS PARKS MD; Vocabulary: ICD-10-CM Diagnoses(Active) Rectal pain Date: 06/15/2016 ; Diagnosis Type: Reason For Visit ; Confirmation: Complaint of ; Clinical Dx: Rectal pain ; Classification: Medical ; Clinical Service: Emergency medicine ; Code: PNED ; Probability: 0 ; Diagnosis Code: [id number] Triage Chief Complaint Description : pt arrives [...] : Ambulatory Track : Medical Languages : Mauritian Treatments Prior to Arrival : Home treatments Are you ? : No Is Patient Female and 13-50 no hysterectomy : Yes Status : Patient denies FRANCES VÁSQUEZ RN - 06/15/2016 17:33 LAP GRINDER Pain Assessment Pain Symptoms : Yes FRANCES VÁSQUEZ RN - 06/15/2016 17:33 LAP GRINDER Pain Scale Pain Scale Verbal 0-10 : Open FRANCES VÁSQUEZ RN - 06/15/2016 17:33 LAP GRINDER Pain Pain Assessment Grid Pain 1 Location : Rectal Intensity : 7 FRANCES VÁSQUEZ RN - 06/15/2016 17:33 LAP GRINDER [place] DCP GENERIC CODE Tracking Acuity : 4 -Less Urgent Tracking Group : [facility] ED/ FRANCES VÁSQUEZ RN - 06/15/2016 17:33 LAP GRINDER Allergy (As Of: 06/15/2016 17:37:17 LAP GRINDER) Allergies (Active) NKA Estimated Onset Date: Unspecified ; Created By: KATIE BRUNNER MD; Reaction Status: Active ; Category: Drug ; Substance: NKA ; Type: Allergy ; Updated By: KATIE BRUNNER MD; Reviewed Date: 06/15/2016 17:35 LAP GRINDER Respiratory Airway : Patent Respirations : Unlabored Respiratory Pattern : Regular FRANCES VÁSQUEZ RN - 06/15/2016 17:33 LAP GRINDER Cardiovascular Heart Rhythm : Regular Skin Color : Normal for ethnicity Skin Description : Dry Skin Temperature : Warm FRANCES VÁSQUEZ RN - 06/15/2016 17:33 LAP GRINDER Neurological Last Well Time Known : Not applicable Level of Consciousness : Alert Orientation : Oriented x 3 Characteristics of Speech : Clear FRANCES VÁSQUEZ RN - 06/15/2016 17:33 LAP GRINDER ED Psychosocial Affect/Behavior : Calm, Cooperative, Appropriate Domestic Abuse Concerns : None Behavioral Health Screen/Safety Assmt : No FRANCES VÁSQUEZ RN - 06/15/2016 17:33 LAP GRINDER Gastrointestinal Nutrition ED : Adequate GI Detailed Assessment : Yes FRANCES VÁSQUEZ RN - 06/15/2016 17:33 LAP GRINDER GI Detailed GI Patient Stated Symptoms : Stools, black/bloody, Other: rectal pain Bowel Movement Last Date : 06/15/2016 LAP GRINDER Stool Description : Hard FRANCES VÁSQUEZ RN - 06/15/2016 17:33 LAP GRINDER Musculoskeletal Fall Prevention Education Provided : Yes FRANCES VÁSQUEZ RN - 06/15/2016 17:33 LAP GRINDER Social Habits Exposure to Tobacco Smoke : [...] No FRANCES VÁSQUEZ RN - 06/15/2016 17:33 LAP GRINDER Alcohol Use Grid Alcohol Use : Yes Frequency : Occasionally FRANCES VÁSQUEZ RN - 06/15/2016 17:33 LAP GRINDER Recreational Drug Use Grid Drug Use : Current Type : Alcohol Route : Oral Frequency : Other: TWICE A MONTH FRANCES VÁSQUEZ RN - 06/15/2016 17:33 LAP GRINDER Source: [facility] POWERCHART Document Id: [id number] LAP GRINDER!72 GRINDER Josue Harvey R.N. - 06/15/2016 5:01 PM CST ED Triage Assessment Document Has Been Updated ED Triage Assessment Entered On: 06/15/2016 17:07 LAP GRINDER Performed On: 06/15/2016 17:01 LAP GRINDER by JOSUE HARVEY RN Reason For Visit (As Of: 06/15/2016 17:07:57 LAP GRINDER) Problems(Active) Abuse Tobacco Smoking NOS (ICD-10-CM :Z72.0 ) Name of Problem: Abuse Tobacco Smoking NOS ; Recorder:DARIUS PARKS MD; Confirmation: Confirmed ; Classification: Medical ; Code: Z72.0 ; Contributor System: PowerChart ; Last Updated: 05/12/2016 15:21 LAP GRINDER ; Life Cycle Date: 05/12/2016 ; Life [...] System: PowerChart ; Last Updated: 05/12/2016 15:20 LAP GRINDER ; Life Cycle Date: 05/12/2016 ; Life Cycle Status: Active ; Responsible Provider: DARIUS PARKS MD; Vocabulary: ICD-10-CM Diagnoses(Active) Rectal pain Date: 06/15/2016 ; Diagnosis Type: Reason For Visit ; Confirmation: Complaint of ; Clinical Dx: Rectal pain ; Classification: Medical ; Clinical Service: Emergency medicine ; Code: PNED ; Probability: 0 ; Diagnosis Code: [id number] Triage Chief Complaint Description : recent hemmorrhoidectomy, having increased pain and bleeding Information Given By : Patient Present in Room During Exam/Procedure : Spouse Mode of Arrival ED : Ambulatory Track : Medical Languages : Mauritian Patient Informed of Triage Location : Emergency department Treatments Prior to Arrival : Home treatments Is Patient Female and 13-50 no hysterectomy : Yes JOSUE HARVEY RN - 06/15/2016 17:06 LAP GRINDER Pain Assessment Pain Symptoms : Yes JOSUE HARVEY RN - 06/15/2016 17:06 LAP GRINDER Pain Scale Pain Scale Verbal 0-10 : Open JOSUE HARVEY RN - 06/15/2016 17:06 LAP GRINDER Pain Pain Assessment Grid Pain 1 Location : Rectal Intensity : 7 Time Pattern : Acute JOSUE HARVEY RN - 06/15/2016 17:06 LAP GRINDER [place] DCP GENERIC CODE Tracking Acuity : 5 -Non Urgent Tracking Group : [facility] ED/[facility] JOSUE HARVEY RN - 06/15/2016 17:06 LAP GRINDER [facility] Document Id: [id number] LAP GRINDER!25 GRINDER Maylin Moore D.O. - 06/15/2016 4:00 PM CST Rectal pain Patient: RADHA BLANCHARD Age: 31 years Sex: Female : 1985 Author: MAYLIN MOORE DO Attachments: None Basic Information History source: Patient. Arrival mode: Private vehicle. Additional information: Chief Complaint from Nursing Triage Note : Chief Complaint Description 06/15/2016 17:33 LAP GRINDER Chief Complaint Description pt arrives with c/o rectal pain radiating to tailbone and bleeding. pt states she had a hard BM with bright red blood. pt concerned about amount of blood with BM. took 2 oxycodone prior to arrival. pt had hemorrhoid surgery 2 days ago 06/15/2016 17:01 LAP GRINDER Chief Complaint Description recent hemmorrhoidectomy, having increased [...] as documented in chart. Surgical history: Hemorrhoidectomy ([id number]) on 06/03/2016 at 31 Years. Esophagogastroduodenoscopy ([id number]) on 08/12/2015 at 30 Years. Tubal ligation ([id number]) on 07/16/2011 at 26 Years.. Family history: Reviewed as documented in chart. Social history: Family/social situation: . Physical Examination Vital Signs: Vital Signs 06/15/2016 17:21 LAP GRINDER Temperature Core 37.0 DegC Peripheral Pulse Rate [...] from flowsheet : Vital Signs 06/15/2016 19:12 LAP GRINDER Pulse SpO2 98 /min SpO2 95 % [...] MOORE DO On: 06/23/2016 04:04 PM Source: [facility] POWERCHART Document Id: [id number]} GRINDER documented in this encounter Miscellaneous Notes Miscellaneous - Conversion, Historical Provider Ser - 06/17/2016 2:30 PM LAP GRINDER Coding Summary-Paper Based CODING DATE: 06/18/2016 FINAL [facility] STATUS: * Discharged to Home [...] CCS Date Saved: 06/18/2016 08:22 am Source: [employer] Document Id: [id number] Miscellмарина - Julienne Lemons R.N. - 06/17/2016 1:53 PM CST *General Message Document Contains Addenda Addendum by TRELL BUNN on June 17, 2016 15:30:22 LAP GRINDER Rescheduled and mailed. From: JULIENNE LEMONS RN To: Yojana Nurse; Specialty Traffic Signal Mechanic; Sent: 06/17/2016 13:53:40 LAP GRINDER Subject: *General Message Please reschedule patients hospital follow up. She needs to be seen in 2-3 weeks. She is being discharged from the hospital today. There was an appointment to be seen on 06/19/16 originally. Ordering Provider: Dr. Cadet. Please call patient with new appointment. Thank you. Source: [employer] Document Id: [id number] Electronically signed by Conversion, [facility] Regional Sales Leader [id number] at 10/12/2016 11:56 PM CDT Miscellaneous - Janice Colon RDevendra - 06/17/2016 10:00 AM CST Adult Activities of Daily Living Adult Activities of Daily Living Entered On: 06/17/2016 12:26 LAP GRINDER Performed On: 06/17/2016 10:00 LAP GRINDER by JANICE COLON RN ADLs I Patient Position : Sitting in bed, Supine Activity Status ADL : Ambulating in room, Bathroom privileges Activity Assistance : Independent Assistive Device : None Ambulation Patient Effort : Good JANICE COLON RN - 06/17/2016 12:26 LAP GRINDER Source: [facility] POWERCHART Document Id: [id number] LAP GRINDER!7 GRINDER Miscellaneous - Janice Colon R.N. - 06/17/2016 9:00 AM CST Adult Ongoing Assessment Adult Ongoing Assessment Entered On: 06/17/2016 10:02 LAP GRINDER Performed On: 06/17/2016 9:00 LAP GRINDER by JANICE COLON RN Respiratory Respiratory Patient Stated Symptoms : None Respirations : Unlabored Distress : None Respiratory Pattern : Regular All Lobes Breath Sounds : Clear Cough : None Sputum Amount : None Suction : None JANICE COLON RN - 06/17/2016 9:58 LAP GRINDER Cardiovascular CV Patient Stated Symptoms : None Heart Rhythm : Regular Heart Sounds ICU : S1S2 Antiembolism Device Yes/No : No Nail Bed Color : [place] Capillary Refill : Less than 2 seconds Edema Assessment : No JANICE COLON RN - 06/17/2016 9:58 LAP GRINDER Radial Pulse, Left : 2+ Normal Radial Pulse, Right : 2+ Normal Brachial Pulse, Left : 2+ Normal Brachial Pulse, Right : 2+ Normal JANICE COLON RN - 06/17/2016 9:58 LAP GRINDER Skin Color : Normal for ethnicity Skin Description : Dry Skin Temperature : Warm Activity Tolerance : Without distress JANICE COLON RN - 06/17/2016 9:58 LAP GRINDER Neurological Neuro Patient Stated Symptoms : None Orientation : Oriented x 3 Level of Consciousness : Alert Gait : Steady Swallowing Difficulty/Aspiration Risk : None JANICE COLON RN - 06/17/2016 9:58 LAP GRINDER Blanco Coma Eye Opening Response Blanco : Spontaneously Best Verbal Response Alto : Oriented Best Motor Response Blanco : Obeys simple commands Alto Coma Score : 15 JANICE COLON RN - 06/17/2016 9:58 LAP GRINDER Psycho/Emotional Affect/Behavior : Cooperative, Appropriate, Anxious Pain Symptoms : No Feels Rested : Yes JANICE COLON RN - 06/17/2016 9:58 LAP GRINDER Coping Grid Identifies effective strategies : Yes [...] Yes JANICE COLON RN - 06/17/2016 9:58 LAP GRINDER Safety Grid Vision, Hearing, Mobility Adequate to Meet Safety Needs : Yes JANICE COLON RN - 06/17/2016 9:58 LAP GRINDER Gastrointestinal GI Patient Stated Symptoms : None Abdomen Description : Symmetric Abdomen Palpation : Soft Bowel Movement Last Date : 06/17/2016 LAP GRINDER JANICE COLON RN - 06/17/2016 9:58 LAP GRINDER Nutrition Appetite : Good Eating Difficulties : None Feeding Ability : Complete independence JANICE COLON RN - 06/17/2016 9:58 LAP GRINDER Genitourinary Patient Stated Symptoms : None Urinary Elimination : Voiding, no difficulties Urine Color : Yellow Urine Description : Clear JANICE COLON RN - 06/17/2016 9:58 LAP GRINDER Integumentary Integumentary Patient Stated Symptoms : None Skin Turgor : Elastic Skin Integrity : Intact Mucous Membrane Color : [place] Mucous Membrane Description : Moist Skin Color : Normal for ethnicity Skin Description : Dry Skin Temperature : Warm JANICE COLON RN - 06/17/2016 9:58 LAP GRINDER Incision/Wound Incision/Wound Care Grid Activity : Assessed Wound Type : Surgical incision Location : Other: rectum Laterality : Central Wound Dressing : Open to air JANICE COLON RN - 06/17/2016 9:58 LAP GRINDER Lázaro Sensory Perception Lázaro : No impairment Moisture Lázaro : Rarely moist Activity Lázaro : Walks frequently Mobility Lázaro : No limitations Nutrition Lázaro : Excellent Friction and Shear Lázaro : No apparent problem Lázaro Score : 23 JANICE COLON RN - 06/17/2016 9:58 LAP GRINDER Musculoskeletal Musculoskeletal Patient Stated Symptoms : None Activity Tolerance : Without distress JANICE COLON - 06/17/2016 9:58 LAP GRINDER Peripheral IV Peripheral IV Assess/Intervention Grid Peripheral IV #1 IV Activity : Assessment, Saline lock Date of Insertion : 06/16/2016 LAP GRINDER IV Site : Forearm Laterality : Left Catheter Size : 22 Catheter Type : Over the needle Infiltration Score : 0 Phlebitis Score : 0 Dressing/ Activity : Dry, Intact, Transparent JANICE COLON RN - 06/17/2016 9:58 LAP GRINDER Falls Assessment Fall Injury Risk History of Falls : No Fall Injury Risk Factors : None of the below Risk Factors Patient has increased Fall Injury Risk : No JANICE COLON RN - 06/17/2016 9:58 LAP GRINDER Hendrich II Fall Risk Confusion/Disorientation Hendrich : [...] 0 JANICE COLON RN - 06/17/2016 9:58 LAP GRINDER Safe Patient Handling Safe Pt Handling Independent : Yes - No equipment needed Safe Pt Handling Equipment Rec : No Equipment Needed JANICE COLON RN - 06/17/2016 9:58 LAP GRINDER Education General Patient Education Powergrid Topics : Pain Management, Plan of care, Use of pain scale(s) Individuals Taught : Patient Barriers to Learning : None evident Teaching Method : Explanation Teaching Evaluation : Verbalizes understanding JANICE COLON RN - 06/17/2016 9:58 LAP GRINDER Source: [facility] POWERCHART Document Id: [id number] LAP GRINDER!133 GRINDER Miscellaneous - Harika Jensen R.N. - 06/17/2016 6:00 AM CST Adult Ongoing Assessment Adult Ongoing Assessment Entered On: 06/17/2016 8:25 LAP GRINDER Performed On: 06/17/2016 6:00 LAP GRINDER by HARIKA JENSEN RN Respiratory Respiratory Patient Stated Symptoms : None Respirations : Unlabored Distress : Mild Respiratory Pattern : Regular All Lobes Breath Sounds : Clear, Diminished Cough and Deep Breathe : Done Cough : None Sputum Amount : None Suction : None Airway : Patent Respiratory Detailed Assessment : Yes MALUCHADDHARIKA Peters Daja 06/17/2016 8:10 LAP GRINDER Resp Detailed Breath Sounds Assessment Grid BRIGIDO : Clear RUL : Clear RML : Clear LLL : Clear RLL : Clear MIKEY HARIKA Daja 06/17/2016 8:10 LAP GRINDER Cardiovascular CV Patient Stated Symptoms : None Antiembolism Device Yes/No : No Nail Bed Color : [place] Capillary Refill : Less than 2 seconds Edema Assessment : No Pacer : No Skin Color : Normal for ethnicity Skin Description : Dry Skin Temperature : Warm Activity Tolerance : Without distress HARIKA JENSEN Daja 06/17/2016 8:10 LAP GRINDER Neurological Neuro Patient Stated Symptoms : None Orientation : Oriented x 3 Level of Consciousness : Alert Gait : Unsteady Swallowing Difficulty/Aspiration Risk : None MALUTERRAHARIKA Daja 06/17/2016 8:10 LAP GRINDER Blanco Coma Eye Opening Response Blanco : Spontaneously Best Verbal Response Blanco : Oriented Best Motor Response Alto : Obeys simple commands Blanco Coma Score : 15 MALUTERRA HARIKA Daja 06/17/2016 8:10 LAP GRINDER Oral Assessment Lips : Smooth, pink, moist, intact Gingiva : [place], smooth, moist, intact Tongue : Smooth, pink, moist, intact Saliva : Thin, watery, plentiful MALUTERRA HARIKA Daja 06/17/2016 8:10 LAP GRINDER Psycho/Emotional Affect/Behavior : Cooperative, Anxious, Crying Pain Symptoms : Yes Feels Rested : No MIKEY HARIKA Farnsworth 06/17/2016 8:10 LAP GRINDER Coping Grid Identifies effective strategies : Yes Uses effective strategies : Yes Reports increase in psychological comfort : Yes Indicates sense of control : Yes Stressors perceived within control : Yes Stable mood with appropriate affect : Yes Behaviors indicate use of coping mechanism : Yes Family supportive and involved in care : Yes Values/Beliefs incorporated appropriately : Yes HARIKA JENSEN 06/17/2016 8:10 LAP GRINDER Safety Grid Vision, Hearing, Mobility Adequate to Meet Safety Needs : Yes HARIKA JENSEN 06/17/2016 8:10 LAP GRINDER Pain Scale Pain Scale Verbal 0-10 : Open Pain Scale Non-Verbal PainAD : Open HARIKA JENSEN 06/17/2016 8:10 LAP GRINDER Effects of Pain Grid Appetite : Severe Concentration : Severe Daily Life : Severe Emotions : Severe Relationships : Severe Sleep : Severe Work/School : Severe HARIKA JENSEN 06/17/2016 8:10 LAP GRINDER Pain Pain Assessment Grid Pain 1 Location : Rectal Laterality : Bilateral Time Pattern : Acute Onset : Sudden Quality : Burning Pain Radiation : Yes (Comment: to breezy [HARIKA JENSEN RN - 06/17/2016 8:10 LAP GRINDER] ) Aggravating Factors : Movement Alleviating Factors : Cold therapy, Medication, Moist heat, Repositioning, Rest Associated Symptoms : Nausea, Shortness of breath Interventions : Otto Crawford MD notified, Medications, Repositioning, Rest HARIKA JENSEN RN - 06/17/2016 8:10 LAP GRINDER PAINAD Breathing : Occasional labored. Short period of hyperventilation. Negative vocalization : Repeated troubled calling out. Loud moan/groan/cry. Facial expression : Facial grimace Body language : Rigid, fists clenched. Knees up. Strikes out. Pull/push away. Consolability : Unable to console, distract or reassure PAINAD Score : 9 PAINAD Pain Interventions : Otto rCawford MD notified, Medications, Repositioning, Rest HARIKA JENSEN RN 06/17/2016 8:10 LAP GRINDER Gastrointestinal GI Patient Stated Symptoms : Other: rectal pain Abdomen Description : Symmetric Abdomen Palpation : Soft, Tender Bowel Movement Last Date : 06/17/2016 LAP GRINDER Bowel Sounds All Quadrants : Present Stool Color : Brown Stool Description : Liquid, Loose Stool Amount : Large Passing Flatus : Yes GI Detailed Assessment : Yes HARIKA JENSEN RN 06/17/2016 8:10 LAP GRINDER GI Detailed Bowel Sounds Grid LUQ : Normoactive RUQ : Normoactive LLQ : Normoactive RLQ : Normoactive HARIKA JENSEN RN 06/17/2016 8:10 LAP GRINDER Nutrition Appetite : Fair Eating Difficulties : None Feeding Ability : Complete independence HARIKA JENSEN RN 06/17/2016 8:10 LAP GRINDER Genitourinary Patient Stated Symptoms : None Urinary Elimination : Voiding, no difficulties Urine Color : Yellow Urine Description : Sediment Bladder Distention : Absent HARIKA JENSEN RN 06/17/2016 8:10 LAP GRINDER Integumentary Integumentary Patient Stated Symptoms : Ulcers/Sores Skin Turgor : Elastic Skin Integrity : Not intact Mucous Membrane Color : [place] Mucous Membrane Description : Moist HARIKA JENSEN RN - 06/17/2016 8:10 LAP GRINDER Incision/Wound Incision/Wound Care Grid Activity : Assessed Wound Type : Surgical incision Location : Other: rectum Laterality : Central Description : Tender Surrounding Tissue : No signs or symptoms of localized infection Neurovascular Status : Neurovascular intact distal to injury, Pulses distal to injury palpable, Skindistal to injury warm and pink HARIKA JENSEN RN - 06/17/2016 8:10 LAP GRINDER Lázaro Sensory Perception Lázaro : No impairment Moisture Lázaro : Rarely moist Activity Lázaro : Walks occasionally Mobility Lázaro : Slightly limited Nutrition Lázaro : Adequate Friction and Shear Lázaro : No apparent problem Lázaro Score : 20 HARIKA JENSEN RN - 06/17/2016 8:10 LAP GRINDER Musculoskeletal Musculoskeletal Patient Stated Symptoms : Joint stiffness Activity Tolerance : Minimal distress HARIKA JENSEN RN 06/17/2016 8:10 LAP GRINDER Peripheral IV Peripheral IV Assess/Intervention Grid Peripheral IV #1 IV Activity : Assessment Date of Insertion : 06/16/2016 LAP GRINDER IV Site : Forearm Laterality : Left Catheter Size : 22 Catheter Type : Over the needle Site Condition : No complications Drainage Description : None Infiltration Score : 0 Phlebitis Score : 0 Dressing/ Activity : Dry, Intact, Transparent Flow/ Patency : No complications HARIKA JENSEN RN - 06/17/2016 8:10 LAP GRINDER Falls Assessment Fall Injury Risk History of Falls : No Patient at Risk for Falls : No Fall Injury Risk Factors : None of the below Risk Factors Patient has increased Fall Injury Risk : No HARIKA JENSEN RN 06/17/2016 8:10 LAP GRINDER Hendrich II Fall Risk Confusion/Disorientation Hendrich : [...] : 3 HARIKA JENSEN RN 06/17/2016 8:10 LAP GRINDER Safe Patient Handling Safe Pt Handling Independent : Yes - No equipment needed Safe Pt Handling Equipment Rec : No Equipment Needed Repositioning Device Recommended : No HARIKA JENSEN RN - 06/17/2016 8:10 LAP GRINDER Education General Patient Education Powergrid Topics : [...] reinforcement HARIKA JENSEN RN - 06/17/2016 8:10 LAP GRINDER Source: [employer] Document Id: [id number] LAP GRINDER!191 GRINDER Miscellaneous - Harika Jensen R.N. - 06/17/2016 6:00 AM CST Adult Activities of Daily Living Adult Activities of Daily Living Entered On: 06/17/2016 8:26 LAP GRINDER Performed On: 06/17/2016 6:00 LAP GRINDER by HARIKA JENSEN RN ADLs I Patient Position : Lying on left side, Lying on right side, Sitting in bed Activity Status ADL : Ambulating in room, Bathroom privileges, HOB elevated intermittently, Up ad nayely Activity Assistance : Independent Repositioning/Pressure Reducing Devices : Pillow Ambulation Patient Effort : Fair HARIKA JENSEN RN - 06/17/2016 8:25 LAP GRINDER ADLs II Hygiene Assistance Grid Back Rub : Refused Foot Care : Moderate assistance Hair Care : Independent Oral Care : Independent Yoselin Care : Minimum assistance HARIKA JENSEN RN - 06/17/2016 8:25 LAP GRINDER Bowel Movement Last Date : 06/17/2016 LAP GRINDER Standard Safety : Bed in low position, Call device within reach, ID band check, Night light, Non-Slip footwear, Rounds every 1 hour, Upper/Half-length side- rails up, Wheels locked HARIKA JENSEN RN - 06/17/2016 8:25 LAP GRINDER Source: [employer] Document Id: [id number] LAP GRINDER!16 GRINDER Olga - Harika Jensen R.N. - 06/16/2016 8:32 PM CST Adult Activities of Daily Living Adult Activities of Daily Living Entered On: 06/16/2016 20:34 LAP GRINDER Performed On: 06/16/2016 20:32 LAP GRINDER by HARIKA JENSEN RN ADLs I Patient Position : Sitting in bed Activity Status ADL : HOB elevated intermittently, Up ad nayely Activity Assistance : Independent Assistive Device : None Repositioning/Pressure Reducing Devices : Pillow Ambulation Patient Effort : Good HARIKA JENSEN RN - 06/16/2016 20:32 LAP GRINDER ADLs II Hygiene Assistance Grid Back Rub : Refused Bed Bath : Minimum assistance Foot Care : Independent Hair Care : Independent Oral Care : Independent Yoselin Care : Independent HARIKA JENSEN RN - 06/16/2016 20:32 LAP GRINDER Bowel Movement Last Date : 06/15/2016 LAP GRINDER Standard Safety : Bed in low position, Call device within reach, ID band check, Night light, Non-Slip footwear, Rounds every 1 hour, Upper/Half-length side- rails up, Wheels locked HARIKA JENSEN RN - 06/16/2016 20:32 LAP GRINDER I&O Incont/BR : 4 HARIKA JENSEN RN - 06/16/2016 20:32 LAP GRINDER ADLs Adult Nutrition Diet Type : Diet -- 06/15/16 20:09:00 LAP GRINDER, General (No Restrictions) Dinner : 75 % HARIKA JENSEN RN - 06/16/2016 20:32 LAP GRINDER Source: [facility] [employer] Document Id: [id number] LAP GRINDER!23 GRINDER Olga - Roopa Duarte R.N. - 06/16/2016 3:55 PM CST Adult Activities of Daily Living Adult Activities of Daily Living Entered On: 06/16/2016 18:02 LAP GRINDER Performed On: 06/16/2016 15:55 LAP GRINDER by ROOPA DUARTE RN ADLs I Patient Position : Elevate head of bed 45 degrees, Supine Activity Status ADL : Up ad nayely Activity Assistance : Independent Ambulation Patient Effort : Good Range of Motion LUE : Active Range of Motion RUE : Active Range of Motion LLE : Active Range of Motion RLE : Active ROOPA DUARTE RN - 06/16/2016 18:01 LAP GRINDER ADLs II Bowel Movement Last Date : 06/15/2016 LAP GRINDER Standard Safety : Bed in low position, Call device within reach, ID band check, Non-Slip footwear, Rounds every 2 hours, Upper/Half-length side-rails up, Wheels locked ROOPA DAURTE RN - 06/16/2016 18:01 LAP GRINDER ADLs Adult Nutrition Diet Type : Diet -- 06/15/16 20:09:00 LAP GRINDER, General (No Restrictions) Feeding Assistance : Independent ROOPA DUARTE RN - 06/16/2016 18:01 LAP GRINDER Source: [employer] Document Id: [id number] LAP GRINDER!16 GRINDER Miscellaneous - Roopa Duarte RDevendra - 06/16/2016 3:55 PM CST Adult Ongoing Assessment Adult Ongoing Assessment Entered On: 06/16/2016 18:04 LAP GRINDER Performed On: 06/16/2016 15:55 LAP GRINDER by ROOPA DUARTE RN Respiratory Respiratory Patient Stated Symptoms : None Respirations : Unlabored Respiratory Pattern : Regular All Lobes Breath Sounds : Clear Cough : None Sputum Amount : None Suction : None Airway : Patent ROOPA DUARTE RN - 06/16/2016 18:02 LAP GRINDER Cardiovascular Antiembolism Device Yes/No : No Edema Assessment : No Skin Color : Normal for ethnicity Skin Description : Normal Skin Temperature : Warm ROOPA DUARTE RN - 06/16/2016 18:02 LAP GRINDER Neurological Neuro Patient Stated Symptoms : None Orientation : Oriented x 3 Level of Consciousness : Alert Gait : Steady Swallowing Difficulty/Aspiration Risk : None Last Well Time Known : Not applicable ROOPA DUARTE RN - 06/16/2016 18:02 LAP GRINDER Psycho/Emotional Affect/Behavior : Calm, Cooperative Pain Symptoms : Yes ROOPA DUARTE RN - 06/16/2016 18:02 LAP GRINDER Coping Grid Family supportive and involved in care : Yes ROOPA DUARTE RN - 06/16/2016 18:02 LAP GRINDER Safety Grid Vision, Hearing, Mobility Adequate to Meet Safety Needs : Yes ROOPA DUARTE RN - 06/16/2016 18:02 LAP GRINDER Pain Scale Pain Scale Verbal 0-10 : Open ROOPA DUARTE RN - 06/16/2016 18:02 LAP GRINDER Pain Pain Assessment Grid Pain 1 Location : Rectal Intensity : 6 ROOPA DUARTE RN - 06/16/2016 18:02 LAP GRINDER Gastrointestinal Abdomen Description : Rounded, Symmetric Abdomen Palpation : Non-Tender, Soft Bowel Movement Last Date : 06/15/2016 LAP GRINDER Bowel Sounds All Quadrants : Present ROOPA DUARTE RN - 06/16/2016 18:02 LAP GRINDER Genitourinary Urinary Elimination : Voiding, no difficulties ROOPA DUARTE RN - 06/16/2016 18:02 LAP GRINDER Integumentary Skin Integrity : Not intact ROOPA DUARTE RN - 06/16/2016 18:02 LAP GRINDER Incision/Wound Incision/Wound Care Grid Activity : Assessed Wound Type : Surgical incision Location : Other: rectum ROOPA DUARTE RN - 06/16/2016 18:02 LAP GRINDER Lázaro Sensory Perception Lázaro : No impairment Moisture Lázaro : Rarely moist Activity Lázaro : Walks frequently Mobility Lázaro : No limitations Nutrition Lázaro : Excellent Friction and Shear Lázaro : No apparent problem Lázaro Score : 23 ROOPA DUARTE RN - 06/16/2016 18:02 LAP GRINDER Peripheral IV Peripheral IV Assess/Intervention Grid Peripheral IV #1 IV Activity : Assessment, Saline lock Date of Insertion : 06/16/2016 LAP GRINDER IV Site : Forearm Laterality : Left Catheter Size : 22 Catheter Type : Over the needle Site Condition : No complications Drainage Description : None Dressing/ Activity : Dry, Intact, Transparent ROOPA DUARTE RN - 06/16/2016 18:02 LAP GRINDER Hendrich II Fall Risk Confusion/Disorientation Hendrich : [...] 1 ROOPA DUARTE RN - 06/16/2016 18:02 LAP GRINDER Safe Patient Handling Safe Pt Handling Independent : Yes - No equipment needed Safe Pt Handling Equipment Rec : No Equipment Needed ROOPA DUARTE RN - 06/16/2016 18:02 LAP GRINDER Education General Patient Education Powergrid Topics : Medication dosage, route, scheduling, Medication generic/brand names, purpose, action, PainManagement, Plan of care, Unit procedures, Use of pain scale(s) Individuals Taught : Patient Barriers to Learning : Acuity of Illness Teaching Method : Explanation Teaching Evaluation : Verbalizes understanding ROOPA DUARTE RN - 06/16/2016 18:02 LAP GRINDER [facility]: [facility] Document Id: [id number] LAP GRINDER!93 GRINDER Miscellaneous - Ludmila Solitario, R.N. - 06/16/2016 1:21 PM CST Adult Activities of Daily Living Adult Activities of Daily Living Entered On: 06/16/2016 13:22 LAP GRINDER Performed On: 06/16/2016 13:21 LAP GRINDER by LUDMILA SOLITARIO RN ADLs I Patient Position : Elevate head of bed 30 degrees Activity Assistance : Independent LUDMILA SOLITARIO RN - 06/16/2016 13:21 LAP GRINDER ADLs II Hygiene Assistance Grid Shower : Minimum assistance LUDMILA SOLITARIO RN - 06/16/2016 13:21 LAP GRINDER Bowel Movement Last Date : 06/15/2016 LAP GRINDER Standard Safety : Bed in low position, Call device within reach, ID band check, Night light, Non-Slip footwear, Rounds every 1 hour, Upper/Half-length side- rails up, Wheels locked LUDMILA SOLITARIO RN - 06/16/2016 13:21 LAP GRINDER I&O Oral Intake : 1,160 mL Incont/BR : 4 Stool Count : 0 LUDMILA SOLITARIO RN - 06/16/2016 13:21 LAP GRINDER ADLs Adult Nutrition Diet Type : Diet -- 02/13/17 20:09:00 LAP GRINDER, General (No Restrictions) Breakfast : 100 % Lunch : 75 % LUDMILA SOLITARIO RN - 06/16/2016 13:21 LAP GRINDER Source: [facility] POWERCHART Document Id: [id number] LAP GRINDER!17 GRINDER Miscellaneous - Ludmila Solitario R.N. - 06/16/2016 8:00 AM CST Adult Ongoing Assessment Document Has Been Updated Adult Ongoing Assessment Entered On: 06/16/2016 9:20 LAP GRINDER Performed On: 06/16/2016 8:00 LAP GRINDER by LUDMILA SOLITARIO RN Respiratory Respiratory Patient Stated Symptoms : None Respirations : Unlabored Distress : None Respiratory Pattern : Regular All Lobes Breath Sounds : Clear Cough and Deep Breathe : Done Cough : None Sputum Amount : None Suction : None Airway : Patent LUDMILA SOLITARIO RN - 06/16/2016 9:13 LAP GRINDER Cardiovascular CV Patient Stated Symptoms : None Heart Rhythm : Regular Heart Sounds ICU : S1S2 Antiembolism Device Yes/No : No Nail Bed Color : [place] Capillary Refill : Less than 2 seconds Edema Assessment : No LUDMILA SOLITARIO RN - 06/16/2016 9:13 LAP GRINDER Radial Pulse, Left : 2+ Normal Radial Pulse, Right : 2+ Normal LUDMILA SOLITARIO RN - 06/16/2016 9:13 LAP GRINDER Skin Color : Normal for ethnicity Skin Description : Normal Skin Temperature : Warm Activity Tolerance : Minimal distress LUDMILA SOLITARIO RN - 06/16/2016 9:13 LAP GRINDER Neurological Neuro Patient Stated Symptoms : None Orientation : Oriented x 3 Level of Consciousness : Alert Gait : Steady Swallowing Difficulty/Aspiration Risk : None Last Well Time Known : Not applicable LUDMILA SOLITARIO RN - 06/16/2016 9:13 LAP GRINDER [place] Eye Opening Response [place] : Spontaneously Best Verbal Response [place] : Oriented Best Motor Response [place] : Obeys simple commands [place] Score : 15 LUDMILA SOLITARIO RN - 06/16/2016 9:13 LAP GRINDER Psycho/Emotional Affect/Behavior : Cooperative, Anxious, Restless Pain Symptoms : Yes Feels Rested : No LUDMILA SOLITARIO RN - 06/16/2016 9:13 LAP GRINDER Coping Grid Reports increase in psychological comfort : No (Comment: anxious at times, emotional support, reassurance, frequent education done [LUDMILA SOLITARIO RN - 06/16/2016 9:13 LAP GRINDER] ) Family supportive and involved in care : Yes Values/Beliefs incorporated appropriately : Yes LUDMILA SOLITARIO RN - 06/16/2016 9:13 LAP GRINDER Safety Grid Vision, Hearing, Mobility Adequate to Meet Safety Needs : Yes LUDMILA SOLITARIO RN - 06/16/2016 9:13 LAP GRINDER Pain Scale Pain Scale Verbal 0-10 : Open LUDMILA SOLITARIO RN - 06/16/2016 9:13 LAP GRINDER Pain Pain Assessment Grid Pain 1 Location : Rectal Intensity : 6 Time Pattern : Constant Quality : Sharp, Other: itching Alleviating Factors : Cold therapy, Medication, Rest Interventions : Cold, Medications, Repositioning, Rest LUDMILA SOLITARIO RN - 06/16/2016 9:13 LAP GRINDER Gastrointestinal GI Patient Stated Symptoms : None Abdomen Description : Flat Abdomen Palpation : Soft Bowel Movement Last Date : 06/15/2016 LAP GRINDER Bowel Sounds All Quadrants : Present GI Detailed Assessment : Yes LUDMILA SOLITARIO RN - 06/16/2016 9:13 LAP GRINDER GI Detailed GI Note : upon rectal visualization, patient noted to have nonbleeding skin tags, visible suture, nodrainage. LUDMILA SOLITARIO RN - 06/16/2016 10:35 LAP GRINDER Nutrition Appetite : Good Eating Difficulties : None LUDMILA SOLITARIO RN - 06/16/2016 9:13 LAP GRINDER Genitourinary Patient Stated Symptoms : None Urinary Elimination : Voiding, no difficulties Urine Color : Yellow Urine Description : Clear Urine Odor : Odorless LUDMILA SOLITARIO RN - 06/16/2016 9:13 LAP GRINDER Integumentary Integumentary Patient Stated Symptoms : None Skin Turgor : Elastic Skin Integrity : Intact Skin Color : Normal for ethnicity Skin Description : Normal Skin Temperature : Warm LUDMILA SOLITARIO RN - 06/16/2016 9:13 LAP GRINDER Incision/Wound Incision/Wound Care Grid Activity : Assessed Wound Type : Surgical incision Location : Other: rectum Description : Well healed Drainage : None LUDMILA SOLITARIO RN - 06/16/2016 9:13 LAP GRINDER Lázaro Sensory Perception Lázaro : No impairment Moisture Lázaro : Rarely moist Activity Lázaro : Walks frequently Mobility Lázaro : No limitations Nutrition Lázaro : Adequate Friction and Shear Lázaro : No apparent problem Lázaro Score : 22 LUDMILA SOLITARIO RN - 06/16/2016 9:13 LAP GRINDER Musculoskeletal Musculoskeletal Patient Stated Symptoms : None Activity Tolerance : Minimal distress LUDMILA SOLITARIO RN - 06/16/2016 9:13 LAP GRINDER Peripheral IV Peripheral IV Assess/Intervention Grid Peripheral IV #1 Peripheral IV #2 IV Activity : Assessment Removal : Catheter intact Date of Insertion : 06/15/2016 LAP GRINDER 06/15/2016 LAP GRINDER Discontinued Date : 06/15/2016 LAP GRINDER IV Site : Antecubital Forearm Laterality : Right Right Catheter Size : 20 20 Catheter Type : Over the needle Site Condition : No complications Drainage Description : None Infiltration Score : 0 Phlebitis Score : 0 Dressing/ Activity : Dry, Intact, Transparent Flow/ Patency : No complications LUDMILA SOLITARIO RN- 06/16/2016 9:13 LAP GRINDER LUDMILA SOLITARIO RN - 06/16/2016 9:13 LAP GRINDER Falls Assessment Fall Injury Risk History of Falls : No Patient at Risk for Falls : No Fall Injury Risk Factors : None of the below Risk Factors Patient has increased Fall Injury Risk : No LUDMILA SOLITARIO RN - 06/16/2016 9:13 LAP GRINDER Hendrich II Fall Risk Confusion/Disorientation Hendrich : [...] 0 LUDMILA SOLITARIO RN - 06/16/2016 9:13 LAP GRINDER Safe Patient Handling Safe Pt Handling Independent : Yes - No equipment needed Safe Pt Handling Equipment Rec : No Equipment Needed Repositioning Device Recommended : No LUDMILA SOLITARIO RN - 06/16/2016 9:13 LAP GRINDER Education General Patient Education Powergrid Topics : Disease process, Medication dosage, route, scheduling, Pain Management, Plan of care, Smoking cessation, Use of pain scale(s) Individuals Taught : Patient, Parent Barriers to Learning : Acuity of Illness Teaching Method : Explanation Teaching Evaluation : Needs reinforcement, Verbalizes understanding LUDMILA SOLITARIO RN - 06/16/2016 9:13 LAP GRINDER Source: [facility] [employer] Document Id: [id number] LAP GRINDER!3 GRINDER Miscellaneous - Hermilo Esteves R.N. - 06/16/2016 6:00 AM CST Adult Activities of Daily Living Adult Activities of Daily Living Entered On: 06/16/2016 6:08 LAP GRINDER Performed On: 06/16/2016 6:00 LAP GRINDER by HERMILO ESTEVES I RN ADLs I Patient Position : Elevate head of bed 45 degrees, Semi-Prince's Activity Status ADL : Bathroom privileges Activity Assistance : Independent Assistive Device : None HERMILO ESTEVES I RN - 06/16/2016 6:04 LAP GRINDER ADLs II Hygiene Assistance Grid Back Rub : Independent Bed Bath : Independent Foot Care : Independent Hair Care : Independent Oral Care : Independent Yoselin Care : Independent Shave : Independent Shower : Independent Tub Bath/Whirlpool : Independent Antimicrobial Wash : Independent Upper Body Dressing(Clothing) : Independent Lower Body Dressing(Clothing) : Independent HERMILO ESTEVES I RN - 06/16/2016 6:04 LAP GRINDER Elimination Assistance Offered Q2H : Independent Bowel Movement Last Date : 06/15/2016 LAP GRINDER Standard Safety : Bed in low position, Call device within reach, ID band check, Non-Slip footwear, Rounds every 1 hour HERMILO ESTEVES I RN - 06/16/2016 6:04 LAP GRINDER I&O Oral Intake : 400 mL Incont/BR : 6 HERMILO ESTEVES I RN - 06/16/2016 6:04 LAP GRINDER Source: [facility] Document Id: [id number] LAP GRINDER!26 GRINDER Miscellaneous - Hermilo Esteves R.N. - 06/16/2016 12:00 AM CST Adult Ongoing Assessment Adult Ongoing Assessment Entered On: 06/16/2016 2:30 LAP GRINDER Performed On: 06/16/2016 0:00 LAP GRINDER by HERMILO ESTEVES I RN Respiratory Respiratory Patient Stated Symptoms : None Respirations : Unlabored Distress : None Respiratory Pattern : Regular All Lobes Breath Sounds : Clear Cough : None HERMILO ESTEVES RN - 06/16/2016 2:25 LAP GRINDER Cardiovascular CV Patient Stated Symptoms : None Antiembolism Device Yes/No : Yes Skin Color : Normal for ethnicity Skin Description : Normal Skin Temperature : Warm Activity Tolerance : Without distress HERMILO ESTEVES RN - 06/16/2016 2:25 LAP GRINDER Antiembolism Device Antiembolism Device : Sequential Compression Device HERMILO ESTEVES RN 06/16/2016 2:25 LAP GRINDER Neurological Neuro Patient Stated Symptoms : None Orientation : Oriented x 3 Level of Consciousness : Alert Gait : Steady Last Well Time Known : Not applicable HERMILO ESTEVES RN - 06/16/2016 2:25 LAP GRINDER Psycho/Emotional Affect/Behavior : Calm, Cooperative Pain Symptoms : Yes HERMILO ESTEVES RN 06/16/2016 2:25 LAP GRINDER Coping Grid Identifies effective strategies : Yes [...] : Yes HERMILO ESTEVES RN 06/16/2016 2:25 LAP GRINDER Safety Grid Vision, Hearing, Mobility Adequate to Meet Safety Needs : Yes HERMILO ESTEVES RN 06/16/2016 2:25 LAP GRINDER Pain Scale Pain Scale Verbal 0-10 : Open HERMILO ESTEVES RN 06/16/2016 2:25 LAP GRINDER Pain Pain Assessment Grid Pain 1 Location : Rectal Intensity : 7 HERMILO ESTEVES RN 06/16/2016 2:25 LAP GRINDER Gastrointestinal GI Patient Stated Symptoms : Abdominal pain Bowel Movement Last Date : 06/15/2016 LAP GRINDER Bowel Sounds All Quadrants : Present HERMILO ESTEVES RN 06/16/2016 2:25 LAP GRINDER Genitourinary Patient Stated Symptoms : None Urinary Elimination : Voiding with difficulties HERMILO ESTEVES RN 06/16/2016 2:25 LAP GRINDER Integumentary Integumentary Patient Stated Symptoms : None Skin Turgor : Elastic Skin Integrity : Intact Mucous Membrane Color : [place] Mucous Membrane Description : Moist Skin Color : Normal for ethnicity Skin Description : Normal Skin Temperature : Warm HERMILO ESTEVES RN - 06/16/2016 2:25 LAP GRINDER Lázaro Sensory Perception Lázaro : No impairment Moisture Lázaro : Rarely moist Activity Lázaro : Walks occasionally Mobility Lázaro : No limitations Nutrition Lázaro : Adequate Friction and Shear Lázaro : No apparent problem Lázaro Score : 21 LINN HERMILO I RN - 06/16/2016 2:25 LAP GRINDER Musculoskeletal Musculoskeletal Patient Stated Symptoms : None Activity Tolerance : Minimal distress HERMILO ESTEVES I RN - 06/16/2016 2:25 LAP GRINDER Peripheral IV Peripheral IV Assess/Intervention Grid Peripheral IV #1 Peripheral IV #2 IV Activity : Assessment Removal : Catheter intact Date of Insertion : 06/15/2016 LAP GRINDER 06/15/2016 LAP GRINDER Discontinued Date : 06/15/2016 LAP GRINDER IV Site : Antecubital Forearm Laterality : Right Right Catheter Size : 20 20 Catheter Type : Over the needle HERMILO ESTEVES I RN - 06/16/2016 2:25 LAP GRINDER HERMILO ESTEVES I RN - 06/16/2016 2:25 LAP GRINDER Falls Assessment Fall Injury Risk History of Falls : No Patient at Risk for Falls : No Fall Injury Risk Factors : None of the below Risk Factors Patient has increased Fall Injury Risk : No HERMILO ESTEVES I RN - 06/16/2016 2:25 LAP GRINDER Hendrich II Fall Risk Confusion/Disorientation Hendrich : [...] HERMILO ESTEVES I RN - 06/16/2016 2:25 LAP GRINDER Safe Patient Handling Safe Pt Handling Independent : Yes - No equipment needed Safe Pt Handling Equipment Rec : No Equipment Needed HERMILO ESTEVES I RN - 06/16/2016 2:25 LAP GRINDER Education General Patient Education Powergrid Topics : Activity limitations/expectations, Medication dosage, route, scheduling, Plan of care Individuals Taught : Patient Barriers to Learning : None evident Teaching Method : Explanation Teaching Evaluation : Needs reinforcement, Verbalizes understanding HERMILO ESTEVES I RN - 06/16/2016 2:25 LAP GRINDER Source: [facility] POWERCHART Document Id: [id number] LAP GRINDER!114 GRINDER Hermilo Pennington R.N. - 06/15/2016 10:00 PM CST Adult Activities of Daily Living Adult Activities of Daily Living Entered On: 06/15/2016 22:42 LAP GRINDER Performed On: 06/15/2016 22:00 LAP GRINDER by HERMILO ESTEVES RN ADLs I Patient Position : Lying on left side Activity Status ADL : Ambulating in room Activity Assistance : Stand-by assistance HERMILO ESTEVES I RN - 06/15/2016 22:42 LAP GRINDER ADLs II Hygiene Assistance Grid Back Rub : Independent Bed Bath : Independent Foot Care : Independent Hair Care : Independent Oral Care : Independent Yoselin Care : Independent Shave : Independent Shower : Independent Tub Bath/Whirlpool : Independent Antimicrobial Wash : Independent Upper Body Dressing(Clothing) : Independent Lower Body Dressing(Clothing) : Independent HERMILO ESTEVES I RN - 06/15/2016 22:42 LAP GRINDER Bowel Movement Last Date : 06/15/2016 LAP GRINDER Standard Safety : Bed in low position, ID band check, Non-Slip footwear, Rounds every 1 hour HERMILO ESTEVES I RN - 06/15/2016 22:42 LAP GRINDER Source: [facility] POWERCHART Document Id: [id number] LAP GRINDER!21 GRINDER Hermilo Pennington R.N. - 06/15/2016 9:44 PM CST Adult Admission Assessment Adult Admission Assessment Entered On: 06/15/2016 21:48 LAP GRINDER Performed On: 06/15/2016 21:44 LAP GRINDER by HERMILO ESTEVES RN Respiratory Respiratory Patient Stated Symptoms : None Respirations : Unlabored Distress : None All Lobes Breath Sounds : Clear HERMILO ESTEVES I RN - 06/15/2016 21:44 LAP GRINDER Cardiovascular CV Patient Stated Symptoms : None Antiembolism Device Yes/No : Yes Nail Bed Color : [place] Capillary Refill : Less than 2 seconds Edema Assessment : No Skin Color : Normal for ethnicity Skin Description : Normal Skin Temperature : Warm Activity Tolerance : Minimal distress HERMILO ESTEVES Sylvia GROVES 06/15/2016 21:44 LAP GRINDER Antiembolism Device Antiembolism Device : Sequential Compression Device Antiembolism Device Laterality : Bilateral HERMILO ESTEVES Sylvia GROVES 06/15/2016 21:44 LAP GRINDER Neurological Neuro Patient Stated Symptoms : None Orientation : Oriented x 3 Level of Consciousness : Alert Gait : Steady Swallowing Difficulty/Aspiration Risk : None Last Well Time Known : Not applicable IVETTEMARTINHERMILO PHILLIPS Sylvia GROVES 06/15/2016 21:44 LAP GRINDER Psycho/Emotional Pain Symptoms : Yes LINN HERMILO Sylvia GROVES 06/15/2016 21:44 LAP GRINDER Coping Grid Identifies effective strategies : Yes [...] : Yes LINNHERMILO Sylvia GROVES 06/15/2016 21:44 LAP GRINDER Safety Grid Vision, Hearing, Mobility Adequate to Meet Safety Needs : Yes LINNHERMILO Sylvia GROVES 06/15/2016 21:44 LAP GRINDER Pain Scale Pain Scale Verbal 0-10 : Open LINNHERMILO Sylvia 06/15/2016 21:44 LAP GRINDER Pain Pain Assessment Grid Pain 1 Location : Rectal Intensity : 7 LINNHERMILO Sylvia GROVES 06/15/2016 21:44 LAP GRINDER Gastrointestinal GI Patient Stated Symptoms : Abdominal pain Abdomen Palpation : Tender Bowel Movement Last Date : 06/15/2016 LAP GRINDER Bowel Sounds All Quadrants : Present FELIPAHERMILO PHILLIPS Sylvia GROVES 06/15/2016 21:44 LAP GRINDER Genitourinary Patient Stated Symptoms : None Urinary Elimination : Voiding, no difficulties LINN HERMILO Sylvia GROVES 06/15/2016 21:44 LAP GRINDER Integumentary Integumentary Patient Stated Symptoms : None Skin Turgor : Elastic Skin Integrity : Intact Mucous Membrane Color : [place] Mucous Membrane Description : Moist Skin Color : Normal for ethnicity Skin Description : Normal Skin Temperature : Warm FELIPAHERMILO PHILLIPS Sylvia GROVES 06/15/2016 21:44 LAP GRINDER Lázaro Sensory Perception Lázaro : No impairment Moisture Lázaro : Rarely moist Activity Lázaro : Walks occasionally Mobility Lázaro : Slightly limited Nutrition Lázaro : Adequate Friction and Shear Lázaro : No apparent problem Lázaro Score : 20 HERMILO ESTEVES I RN - 06/15/2016 21:44 LAP GRINDER Musculoskeletal Musculoskeletal Patient Stated Symptoms : None Activity Tolerance : Minimal distress HERMILO ESTEVES I RN - 06/15/2016 21:44 LAP GRINDER Peripheral IV Peripheral IV Assess/Intervention Grid Peripheral IV #1 IV Activity : Assessment Date of Insertion : 06/15/2016 LAP GRINDER IV Site : Antecubital Laterality : Right Catheter Size : 20 FELIPAALANHERMILO I RN - 06/15/2016 21:44 LAP GRINDER Falls Assessment Fall Injury Risk History of Falls : No Patient at Risk for Falls : No Patient has increased Fall Injury Risk : No HERMILO ESTEVES I RN - 06/15/2016 21:44 LAP GRINDER Hendrich II Fall Risk Confusion/Disorientation Hendrich : [...] HERMILO ESTEVES I RN - 06/15/2016 21:44 LAP GRINDER Safe Patient Handling Safe Pt Handling Independent : Yes - No equipment needed Safe Pt Handling Equipment Rec : No Equipment Needed HERMILO ESTEVES I RN - 06/15/2016 21:44 LAP GRINDER [facility] POWERAlignMed Document Id: [id number] LAP GRINDER!100 GRINDER Miscellaneous - Toribio Cooley R.N. - 06/15/2016 9:13 PM CST Adult Admission History Adult Admission History Entered On: 06/15/2016 21:20 LAP GRINDER Performed On: 06/15/2016 21:13 LAP GRINDER by TORIBIO COOLEY RN General Info Preferred Name : Myrna Admitted From : Non-Health Care Facility Point of Origin Mode of Arrival : Bed Present in Room During Exam/Procedure : Alone Chief Complaint : hemorhoid pain Preferred Communication Mode : Verbal Information Given By : Patient Languages : Mauritian Have you received chemotherapy in last 48 hours? : No Is Patient Female and 13-50 no hysterectomy : Yes Status : Patient denies Are you ? : No TORIBIO COOLEY RN - 06/15/2016 21:13 LAP GRINDER Nutrition Have you recently lost weight without trying? : No Decreased Appetite Nutrition : No Tube Feedings or Parenteral Nutrition : No MST Score : 0 Home Diet : Regular Appetite : Good Eating Difficulties : None Feeding Ability : Complete independence TORIBIO COOLEY RN - 06/15/2016 21:13 LAP GRINDER Home Environment Current Daily Living Assistance : None Living Situation : Home independently Home Equipment : None Sensory Deficits : None Mobility Assistance Prior to Admission : Independent Current Home Treatments : None Professional Skilled Services : None Special Services and Community Resources : None TORIBIO COOLEY RN - 06/15/2016 21:13 LAP GRINDER Dependent Habits Alcohol Use : Yes TORIBIO COOLEY RN - 06/15/2016 21:13 LAP GRINDER Caffeine Use Grid Caffeine Use : None TORIBIO COOLEY RN - 06/15/2016 21:13 LAP GRINDER Recreational Drug Use Grid Drug Use : Current Type : Alcohol Route : Oral Frequency : Other: TWICE A MONTH TORIBIO COOLEY RN - 06/15/2016 21:13 LAP GRINDER AUDIT Tool How Often Do You Have A Drink : 2 to 4 times a month How Many Drinks in a Day When Drinking : 1 or 2 Six or More Drinks On One Occassion : Never Audit Phase 1 Score : 2 TORIBIO COOLEY RN - 06/15/2016 21:13 LAP GRINDER Psychosocial Adult Domestic Abuse Concerns : None Concerns About Family Members at Home : No Emotional Support Available : Yes Caregiver Post Hospital Care : Yes Chronic/Terminal Illness Freq Visits : No Financial Concerns Regarding Hospitalization/Discharge : No Behavioral Health Screen/Safety Assmt : No Coping : Effective Stressors : Condition Scientologist Preference : No Scientologist Affiliation TORIBIO COOLEY RN - 06/15/2016 21:13 LAP GRINDER Advance Directive Advanced Directives : No Advance Directive Additional Information : No TORIBIO COOLEY RN - 06/15/2016 21:13 LAP GRINDER Educ Needs Patient/Family Education Needs : Pain management, Plan of care TORIBIO COOLEY RN - 06/15/2016 21:13 LAP GRINDER Learning Style Preference Adult Grid Patient : Demonstration, Printed materials, Verbal explanation, Video/Educational TV Family : Demonstration, Printed materials, Verbal explanation, Video/Educational TV TORIBIO COOLEY RN - 06/15/2016 21:13 LAP GRINDER Source: [facility] POWERCHART Document Id: [id number] LAP GRINDER!67 GRINDER Miscellaneous - Toribio Cooley REmekaN. - 06/15/2016 9:03 PM CST Basic Admission Information Document Has Been Updated Basic Admission Information Entered On: 06/15/2016 21:13 LAP GRINDER Performed On: 06/15/2016 21:03 LAP GRINDER by TORIBIO COOLEY RN Vital Signs Temperature [...] kg/m2 TORIBIO COOLEY RN - 06/15/2016 21:03 LAP GRINDER Allergy Rule (As Of: 06/15/2016 21:13:25 LAP GRINDER) Allergies (Active) NKA Estimated Onset Date: Unspecified ; Created By: KATIE BRUNNER MD; Reaction Status: Active ; Category: Drug ; Substance: NKA ; Type: Allergy ; Updated By: KATIE BRUNNER MD; Reviewed Date: 06/15/2016 17:35 LAP GRINDER Valuables/Belongings Valuables/Belongings Grid Valuables at Bedside Clothes, Patient Valuables : Jacket, Pants, Shirt, Shoes, Undergarments, Other: t-shirt Electronic Devices : Cell phone Jewelry : Bracelet, Wedding band, Other: nose stud Monetary Items : Purse Personal Devices : None TORIBIO COOLEY RN - 06/15/2016 21:03 LAP GRINDER Room Orientation/Facility Policy Reviewed : Yes Belongings Sent Home With : spouse will take purse home Home Medication Disposition : None brought in with patient TORIBIO COOLEY RN - 06/15/2016 21:03 LAP GRINDER Source: [facility] IES Document Id: [id number] LAP GRINDER!30 GRINDER Lyssacellaneous - Frances Vásquez R.N. - 06/15/2016 8:04 PM CST Valuables/Belongings Valuables/Belongings Entered On: 06/15/2016 20:04 LAP GRINDER Performed On: 06/15/2016 20:04 LAP GRINDER by FRANCES VÁSQUEZ RN Valuables/Belongings Belongings Sent Home With : all belongings sent with patient FRANCES VÁSQUEZ RN - 06/15/2016 20:04 LAP GRINDER Source: [employer] Document Id: [id number] LAP GRINDER!3 GRINDER Olga - Frances Vásquez R.N. - 06/15/2016 7:00 PM CST Communication Note Communication Note Entered On: 06/15/2016 19:02 LAP GRINDER Performed On: 06/15/2016 19:00 LAP GRINDER by FRANCES VÁSQUEZ RN Communication Subject of Note : Other: patient note Assessment Communication Note : surgeon here with patient FRANCES VÁSQUEZ RN - 06/15/2016 19:00 LAP GRINDER Source: [facility] IES Document Id: [id number] LAP GRINDER!4 GRINDER documented in this encounter Plan of Treatment Not on filedocumented as of this encounter Procedures Procedure Name Priority Date/Time Associated Diagnosis Comme nts AUTOMATED Routine 06/15/2016 7:16 PM Results f or this DIFFERENTIAL, B LAP GRINDER procedure ar e in the results section. CBC WITH Routine 06/15/2016 7:16 PM Results f or this DIFFERENTIAL, B LAP GRINDER procedure ar e in the results section. CT ABDOMEN PELVIS Routine 06/15/2016 7:05 PM Resu lts for this WITH IV CONTRAST LAP GRINDER procedure a re in the results section. documented in this encounter Results Automated Differential (06/15/2016 7:16 PM LAP GRINDER) P athologist Signature Absolute 4.36 1.70 - POWERCHART Neutrophils 7.00 109L Lymphocytes 1.79 0.90 - POWERCHART 2.90 X109L Monocytes 0.42 0.30 - POWERCHART 0.90 X109L Eosinophils 0.22 0.05 - POWERCHART 0.50 X109L Absolute 0.02 0.00 - POWERCHART Basophil 0.30 X109L Specimen Anatomical Collection Method Collection Time Receive d Time (Source) Location / / Volume Laterality Blood 06/15/2016 7:16 PM 7 7:16 LAP GRINDER PM LAP GRINDER Maylin Moore D.O. LAB BLOOD ADD-ON Performing Organization Address City/State/ZIP Code Phon e Number POWERCHART CBC with Differential (06/15/2016 7:16 PM LAP GRINDER) P athologist Signature Leukocytes 6.8 3.4 - 10.5 POWERCHART X109L Erythrocytes 4.62 3.90 - 5.03 POWERCHART Z5965R Hemoglobin 14.2 12.0 - 15.5 POWERCHART GDL Hematocrit 42.3 34.9 - 44.5 POWERCHART MCV 91.6 82.0 - 98.0 POWERCHART FL HX RDW 13.1 11.9 - 15.5 POWERCHART Platelet Count 205 150 - 450 POWERCHART X109L Specimen (Source) Anatomical Collection Method Collection Time Re ceived Time Location / / Volume Laterality Blood 06/15/2016 7:16 PM LAP GRINDER Maylin Moore D.O. LAB BLOOD ADD-ON Performing Organization Address City/State/ZIP Code Phon e Number POWERCHART CT Abdomen Pelvis with IV Contrast (06/15/2016 7:05 PM LAP GRINDER) Anatomical Region Laterality Modality Abdomen, Pelvis N/A Computed Tomography Specimen (Source) Anatomical Collection Method Collection Time Re ceived Time Location / / Volume Laterality 06/15/2016 7:05 PM LAP GRINDER Addenda Addendum by Provider, Lupe Villanueva o laurie 06/15/2016 7:05 PM LAP GRINDER RAD^^^AU CT Abdomen/Pelvis w/ contrast 06/15/2016 19:05:00 Impressions 06/16/2016 7:54 AM LAP GRINDER No acute etiology identified for pelvic pain. Narrative 06/16/2016 7:54 AM LAP GRINDER EXAM: CT Abdomen/Pelvis w/ contrast INDICATION: pelvic [...] radiologic preliminary radiology report reviewed. Procedure Note gNoc Huddleston M.D. / Provider, Joao murillo M.D. [...] etiology identified for pelvic pain. Vianney M Jreardo R.N. IMG CT PROCEDURES documented in this encounter Visit Diagnoses Not on filedocumented in this encounter
--- OUTSIDE RECORDS SUMMARY | 2022-02-12 14:28 | XMS_ITS | Encounter Summary ---
:1985 Author Organization [facility] Address [address] [place] [address] Care Team Providers Name Role Phone Unavailable Primary Care Provider Unavailable Encounter Details Date Type Department Care Team Description 06/12/2016 Hospital Encounter HX [facility] Jeff Camarena M.D., Ph.D. [address] [place] [phone] (Wo rk) Social History Tobacco Use Types Packs/Day Years Used Date Smoking Tobacco: Every Day Sex Assigned at Date Recorded Not on file documented as of this encounter Last Filed Vital Signs Vital Sign Reading Time Taken Comments Blood Pressure 126/78 06/12/2016 3:15 PM CAP MACHINE OPERATOR Pulse 83 06/12/2016 3:15 PM CAP MACHINE OPERATOR Temperature - - Respiratory Rate - - Oxygen Saturation - - Inhaled Oxygen Concentration - - Weight 83.1 kg (183 lb 3.2 oz) 06/12/2016 3:15 PM CAP MACHINE OPERATOR Height 169 cm (5' 6.54) 06/12/2016 3:15 PM CAP MACHINE OPERATOR Body Mass Index 29.1 06/12/2016 3:15 PM CAP MACHINE OPERATOR documented in this encounter Medications at Time [...] M.D., Ph.D. - 06/12/2016 3:09 PM CST [id number] CHIEF COMPLAINT/REASON FOR VISIT Status post hemorrhoidectomy. [...] MD, PhD On: 07/06/2016 04:33 PM Source: [facility] MHSDOLBEYNONRADSYS Document Id: [id number] MACHINE OPERATOR documented in this encounter Miscellaneous Notes Miscellaneous - Conversion, Historical Provider Ser - 06/30/2016 3:19 PM CAP MACHINE OPERATOR *General Message From: CHEVY ROWLAND ( Customer Service) Sent: 06/30/2016 15:19:09 CAP MACHINE OPERATOR Subject: *General Message RX PICKED UP BY .EULOGIO 06/30 Source: [facility] POWERCHART Document Id: [id number] Miscellaneous - Conversion, Historical Provider Ser - 06/29/2016 11:02 AM CAP MACHINE OPERATOR jarred Document Contains Addenda Addendum by KHALIF CAMARENA MD, PhD on June 30, 2016 15:24:45 CAP MACHINE OPERATOR From: KHALIF CAMARENA MD, PhD To: [facility]; Sent: 06/30/2016 15:24:45 CAP MACHINE OPERATOR Subject: RE: jarred Thank you. Addendum by EVELYNE WEINBERG LPN on June 30, 2016 11:46:16 CAP MACHINE OPERATOR prescription sent to second floor registration desk to be picked up by per patient. Addendum by ROBERT BANSAL LPN on June 30, 2016 08:34:11 CAP MACHINE OPERATOR From: ROBERT BANSAL LPN ( [place] Nurse) To: KHALIF CAMARENA MD, PhD; Sent: 06/30/2016 08:34:11 CAP MACHINE OPERATOR Subject: FW: jarred Addendum by ROBERT BANSAL LPN on June 30, 2016 08:33:56 CAP MACHINE OPERATOR NEEDS REFILL ON PAIN MEDS. Addendum by EVELYNE WEINBERG LPN on June 30, 2016 08:03:38 CAP MACHINE OPERATOR left message to return call. From: TIMO VEGA ( Call Center Home Restoration Service Supervisor) To: [place] Nurse; Surgery Nurse; Sent: 06/29/2016 11:02:27 CAP MACHINE OPERATOR Subject: jarred Caller Name/Relationship: aguilar/spouse Facility/Wing: Call Back # : [phone] Reason for call: needing med refill, in a lot of pain Source: [facility] POWERCHART Document Id: [id number] Miscellaneous - Khalif Camarena M.D., Ph.D. - 06/13/2016 2:25 PM CAP MACHINE OPERATOR Ambulatory Patient Summary [address] [phone] Visit Information Name: SILVIA VASQUEZ [facility] Number: [id number] Current Date: 06/13/2016 14:25:31 Physicians Attending Provider: KHALIF CAMARENA MD, PhD Primary Care Provider: SOFIE VÁZQUEZ MD [id number] SILVIA VASQEUZ has been given the following list of [...] day(s) This is a CHANGE Routed to [address] [address] hydrocortisone topical (hydrocortisone 25 mg rectal suppository) [...] day(s) This is a CHANGE Routed to [employer] oxyCODONE (oxyCODONE 5 mg oral tablet) 2 [...] dont have one. Go to [email or web address] and click on Create Your Account. Then, follow the directions to complete the online form. Youll be asked for your [facility] number which you can find at the top of this document. Your Goals/Additional instructions: Source: [facility] POWERCHART Document Id: [id number] MACHINE OPERATOR Miscellaneous - Khalif Camarena M.D., Ph.D. - 06/13/2016 2:25 PM CAP MACHINE OPERATOR Ambulatory Discharge Medication List [facility] [address] [place], [place] [id number] Visit Information Name: SILVIA VASQUEZ [facility] Number: [id number] Current Date: 06/13/2016 14:25:30 Attending Provider: KHALIF CAMARENA MD, PhD Primary Care Provider: SOFIE VÁZQUEZ MD [id number] SILVIA VASQUEZ has been given the following [...] day(s) This is a CHANGE Routed to [address] [address] hydrocortisone topical (hydrocortisone 25 mg [...] day(s) This is a CHANGE Routed to [place] oxyCODONE (oxyCODONE 5 mg oral tablet) 2 [...] PhD Signed On:13-JUN-2016 14:25:28 Additional Information: Source: [facility] POWERCHART Document Id: [id number] MACHINE OPERATOR Miscellaneous - Yossi Cisneros L.P.N. - 06/12/2016 3:15 PM CST Adult Emergency Medical Service Manager Intake/History Adult Emergency Medical Service Manager Intake/History Entered On: 06/12/2016 15:17 CAP MACHINE OPERATOR Performed On: 06/12/2016 15:15 CAP MACHINE OPERATOR by YOSSI CISNEROS LPN Intake Chief Complaint [...] kg/m2 YOSSI CISNEROS LPN - 06/12/2016 15:15 CAP MACHINE OPERATOR General Info Information Given By : Patient Languages : Swedish Is Patient Female and 13-50 no hysterectomy : Yes Status : Patient denies Are you ? : No YOSSI CISNEROS LPN - 06/12/2016 15:15 CAP MACHINE OPERATOR Subjective Pain Symptoms : Yes YOSSI CISNEROS LPN - 06/12/2016 15:15 CAP MACHINE OPERATOR Pain Scale Pain Scale Verbal 0-10 : Open YOSSI CISNEROS LPN - 06/12/2016 15:15 CAP MACHINE OPERATOR Effects of Pain Grid Daily Life : Moderate Sleep : Moderate YOSSI CISNEROS LPN 06/12/2016 15:15 CAP MACHINE OPERATOR Pain Pain Assessment Grid Pain 1 Location : Other: hemorrhoids Laterality : Bilateral Intensity : 6 Quality : Burning, Throbbing YOSSI CISNEROS LPN - 06/12/2016 15:15 CAP MACHINE OPERATOR Dependent Habits Exposure to Tobacco Smoke : [...] Yes YOSSI CISNEROS LPN - 06/12/2016 15:15 CAP MACHINE OPERATOR Caffeine Use Grid Caffeine Use : None YOSSI CISNEROS LPN - 06/12/2016 15:15 CAP MACHINE OPERATOR Recreational Drug Use Grid Drug Use : Current Type : Alcohol Route : Oral Frequency : Other: TWICE A MONTH YOSSI CISNEROS LPN - 06/12/2016 15:15 CAP MACHINE OPERATOR [email or web address] Document Id: [id number] CAP MACHINE OPERATOR!55 MACHINE OPERATOR documented in this encounter Plan of Treatment Not on filedocumented as of this encounter Visit Diagnoses Not on filedocumented in this encounter
--- OUTSIDE RECORDS SUMMARY | 2022-02-12 14:28 | XMS_ITS | Encounter Summary ---
:1985 Author Organization [facility] Address [address] [place] [address] Care Team Providers Name Role Phone Elsewhere, Pcp Primary Care Provider Unavailable Reason for Referral Outpatient (Routine) - Authorized Specialty Diagnoses / Procedures Referred By Contact Refer red To Contact Emergency Medicine Diagnoses Otitis Media Acute Left Cerumen Impacted Right Efren Galdamez, C.N.P. [facility] Region [address] [place] [phone] Referral ID Status Reason Start Date Expiration Date Visits V isits Requested Authorized [id number] Authorized 09/24/2021 09/24/2022 1 1 Reason for Visit Reason Comments Nasal Congestion Cough X 24 hours Encounter Details Date Type Department Care Team Description 09/24/2021 Emergency [place] [facility] Efren Galdamez Otiti s Media Acute Left (Primary Dx); Department C.N.P. Cerumen Impacted Right; [address] [place] [address] [place] [address] COVID-19 [place] [phone] Social History Tobacco Use Types Packs/Day Years [...] Body Mass Index 26.37 06/22/2016 10:01 PM LGSW documented in this encounter Discharge Instructions Discharge [...] cannot be sent through Care Everywhere. COVID-19 (Algerian)Earwax Buildup Adult (Algerian)Otitis Media Adult Pyhg-dw-Tiql (Algerian)documented in this encounter Medications at Time of [...] coordinate the care. For questions, contact the [facility] Care Team ([facility]WCCT): Pager: [phone] In basket: P RST/[facility] COVID-19 POSITIVE Covid Care e-consult NOTE: At the time of testing, patients are instructed to obtain the result by calling the [employer] result line or by checking their online [...] Organization Address City/State/ZIP Code Phon e Number [facility]- [address] [place] [address] [facility] [address] System [address] (ABNORMAL) Urinalysis with Microscopic: Urine, Midstream [...] 8.0 09/24/2021 8:35 AM CDT CNFL Specific [place] 1.020 1.001 - 1.035 09/24/2021 8:35 AM [...] Organization Address City/State/ZIP Code Phon e Number [address] [address] [place] [address] (ABNORMAL) Influenza A/B, SARS CoV-2, PCR, Rapid, Varies Symptomatic (09/24/2021 7:50 AM CDT) [facility] Method Time Signature Influenza A, Negative [...] SARS-CoV-2 and Influenza A/B Reagent assay from [employer], which has received Emergency Use Authori zation(EUA) by the U.S. Food and Drug Administration . Fact sheets for this Emergency Use Autho rization (EUA) assay can be found at the following link s: For Healthcare Providers: https://www.fda.gov/media/978437/downloa d For Patients: https://www.fda.gov/media/330003/downloa d Infl A/B, SARS CoV-2, PCR, Source Swab, Nasopharynx 09/24/2021 7:53 AM CDT [place] Specimen Anatomical Collection Method Collection Time Receive d Time (Source) Location / / Volume Laterality Varies 09/24/2021 7:50 AM 7:53 (Nasopharynx) CDT AM CDT Efren Galdamez C.N.P. LAB MICROBIOLOGY - GENERAL O RDERABLES Performing Organization Address City/State/[facility] Code Phon e Number [id number] [place] [address] [place] [address] System [address] documented in this encounter Visit Diagnoses Diagnosis Otitis Media Acute Left - Primary Cerumen Impacted Right COVID-19 Infection documented in this encounter Additional Health Concerns Infection Onset Date Last Indicated Resolved Time COVID19 Pending 09/24/2021 09/24/2021 09/24/2021 8:16 AM CDT COVID19 09/24/2021 09/24/2021 10/14/2021 5:53 AM CDT documented as of this encounter Care Teams Vp Director Of Creative Strategy Relationship Specialty Start Date End Date Elsewhere, Pcp PCP - General 07/02/19 documented as of this encounter
--- OUTSIDE RECORDS SUMMARY | 2022-02-12 14:28 | XMS_ITS | Encounter Summary ---
:1985 Author Organization [facility] Address [address] [place] [address] Care Team Providers Name Role Phone Qasim Soria M.D. Primary Care Provider Encounter Details Date Type Department Care Team Description 03/01/2017 Abstract Department of Ophthalmology in Provider, Historical Len Rodarte n [address] [place], [place] [phone] Social History Tobacco Use Types Packs/Day Years Used Date Smoking Tobacco: Every Day Sex Assigned at Date Recorded Not on file documented as of this encounter Plan of Treatment Not on filedocumented as of this encounter Visit Diagnoses Not on filedocumented in this encounter Care Teams Nozzleman Relationship Specialty Start Date End Date Qasim Soria M.D. PCP - General 10/15/16 04/15/17 documented as of this encounter
--- OUTSIDE RECORDS SUMMARY | 2022-02-12 14:28 | XMS_ITS | Encounter Summary ---
:1985 Author Organization [facility] Address [address] [place] [address] Care Team Providers Name Role Phone Elsewhere, [...] Type Department Care Team Description 11/15/2021 Emergency [place] Emergency Galdamez, Schwartz N, Pain Back (Primary Dx) Department C.N.P. 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 Chronic Back Pain (Turkmen)documented in this encounter Medications at Time of [...] of this encounter ED Notes Efren Galdamez C.N.Kirsta. - 11/15/2021 11:05 PM CDT Images from [...] hours. documented in this encounter Care Teams Test Worker Relationship Specialty Start Date End Date Elsewhere, Pcp PCP - General 07/02/19 documented as of this encounter
--- OUTSIDE RECORDS SUMMARY | 2022-02-12 14:29 | XMS_ITS | Encounter Summary ---
:1985 Author Organization [facility] Address [address] [place] [address] Care Team Providers Name Role Phone Unavailable Primary Care Provider Unavailable Encounter Details Date Type Department Care Team Description 12/03/2015 Hospital Encounter [facility]X [facility] [place], ERICKA, C.N.P. [address] [place] [address] (Wo rk) Social History Tobacco Use Types [...] PARK CNP On: 12/04/2015 07:44 AM Source: [facility] POWERCHART Document Id: [id number] Loli Park C.N.P., R.N. - 12/03/2015 4:12 PM CDT [id number] REVISION HISTORY December 05, 2015. 9:17 a.m. - Modification to the date of service. CHIEF COMPLAINT/REASON FOR VISIT [facility] DOI 0724/16 HISTORY OF PRESENT ILLNESS [...] PARK CNP On: 12/05/2015 09:48 AM Source: [facility] MHSDOLBEYNONRADSYS Document Id: [id number] documented in this encounter Miscellaneous Notes Miscellaneous - Loli Park, C.N.P., R.N. - 12/03/2015 4:44 PM CDT Addendum by MEGAN NAIR LPN on December 05, 2015 08:56:14 CDT noted Addendum by TD STANLEY on December 05, 2015 08:35:06 CDT From: TD STANLEY ([facility] Mixing House Operator/Work Comp) To: Lower Level Specialty Video Rental Clerk; Occupational Medicine [place] Nurse; LILY HOOKER; [facility] Mixing House Operator/Work Comp; Sent: 12/05/2015 08:35:06 CDT Subject: work comp Faxed in request for referral to physical therapy, evaluate and treat. Work Comp Use Only Date of injury:_ 11/24/2015 Emp: _ [facility] Body Part:_back Insurance Company:_ [employer] Claim #_[id number] Shuttle Fixer.Isak Chow Phone:_ [phone] Fax:_ [phone] Pending:_ xx Approved: _ Denied:_ From: LOLI PARK ACADEMIC RECORDS SPECIALIST To: [facility] Mixing House Operator/Work Comp; Sent: 12/03/2015 16:44:53 CDT Has PT been approved yet? Source: [facility] POWERCHART Document Id: [id number] Electronically signed by James [facility] Oyster Farmer [id number] at 09/27/2016 3:00 AM CDT Miscellaneous - Megan Nair, L.P.N. - 12/03/2015 4:31 PM CDT Adult Electromechanical Assembly Technician Intake/History Adult Electromechanical Assembly Technician Intake/History Entered On: 12/03/2015 16:33 CDT Performed On: 12/03/2015 16:31 CDT by MEGAN NAIR LPN Intake Chief Complaint : WC FU [employer] [place] DOI Temperature Core : 36.3 DegC(Converted to: [...] Given By : Patient Languages : South Sudanese Is Patient Female and 13-50 no hysterectomy [...] NAIR LPN - 12/03/2015 16:31 CDT [facility] Document Id: [id number] CDT!45 documented in this encounter Plan of Treatment Not on filedocumented as of this encounter Visit Diagnoses Not on filedocumented in this encounter
--- OUTSIDE RECORDS SUMMARY | 2022-02-12 14:29 | XMS_ITS | Encounter Summary ---
:1985 Author Organization [facility] Address [address] [place] [address] Care Team Providers Name Role Phone Unavailable Primary Care Provider Unavailable Encounter Details Date Type Department Care Team Description 06/09/2016 Hospital Encounter [facility] Jeff Camarena M.D., Ph.D. [address] [place] [phone] (Wo rk) Social History Tobacco Use Types Packs/Day Years Used Date Smoking Tobacco: Every Day Sex Assigned at Date Recorded Not on file documented as of this encounter Last Filed Vital Signs Vital Sign Reading Time Taken Comments Blood Pressure 117/73 06/09/2016 1:10 PM SPECIMEN TRANSPORTER Pulse 82 06/09/2016 1:10 PM SPECIMEN TRANSPORTER Temperature - - Respiratory Rate - - Oxygen Saturation - - Inhaled Oxygen Concentration - - Weight 82.5 kg (181 lb 14.1 oz) 06/09/2016 1:10 PM SPECIMEN TRANSPORTER Height 169 cm (5' 6.54) 06/09/2016 1:10 PM SPECIMEN TRANSPORTER Body Mass Index 28.89 06/09/2016 1:10 PM SPECIMEN TRANSPORTER documented in this encounter Medications at Time [...] MD, PhD On: 07/06/2016 04:34 PM Source: [facility] MHSDOLBEYNONRADSYS Document Id: [id number] IMEN TRANSPORTER documented in this encounter Miscellaneous Notes Miscellaneous - Khalif Camarena M.D., Ph.D. - 06/12/2016 11:20 PM SPECIMEN TRANSPORTER Ambulatory Patient Summary [facility] [address] [place], [place] [id number] Visit Information Name: SILVIA VASQUEZ [facility] Number: [id number] Current Date: 06/12/2016 23:20:50 Physicians Attending Provider: KHALIF CAMARENA MD, PhD Primary Care Provider: SOFIE VÁZQUEZ MD [id number] SILVIA VASQUEZ has been given the following [...] day(s) This is a CHANGE Routed to [facility] [address] [place] [address] hydrocortisone topical (hydrocortisone 25 mg rectal suppository) [...] you dont have one. Go to [email or web address] and click on Create Your Account. Then, follow the directions to complete the online form. Youll be asked for your [facility] number which you can find at the top of this document. Your Goals/Additional instructions: Source: [facility] POWERCHART Document Id: [id number] IMEN TRANSPORTER Miscellaneous - Khalif Camarena M.D., Ph.D. - 06/12/2016 11:20 PM SPECIMEN TRANSPORTER Ambulatory Discharge Medication List [facility] [address] [place], [place] [phone] Visit Information Name: SILVIA VASQUEZ [facility] Number: [id number] Current Date: 06/12/2016 23:20:49 Attending Provider: KHALIF CAMARENA MD, PhD Primary Care Provider: SOFIE VÁZQUEZ MD [id number] SILVIA VASQUEZ has been given the following [...] day(s) This is a CHANGE Routed to [facility] [address] [place] [address] hydrocortisone topical (hydrocortisone 25 mg rectal suppository) [...] PhD Signed On:12-JUN-2016 23:20:46 Additional Information: Source: [facility] POWERCHART Document Id: [id number] IMEN TRANSPORTER Miscellaneous - Conversion, Historical Provider Ser - 06/12/2016 12:19 PM SPECIMEN TRANSPORTER *General Message Document Contains Addenda Addendum by TRELL BUNN on June 12, 2016 14:22:43 SPECIMEN TRANSPORTER Scheduled. Addendum by YOSSI DOWNING LPN on June 12, 2016 13:50:03 SPECIMEN TRANSPORTER Noted Addendum by KHALIF CAMARENA MD, PhD on June 12, 2016 13:31:13 SPECIMEN TRANSPORTER From: KHALIF CAMARENA MD, PhD To: YADIRA Camarena Nurse; TRELL BUNN; Sent: 06/12/2016 13:31:13 SPECIMEN TRANSPORTER Subject: RE: *General Message Please add her to the schedule at 3:15. Thanks. Addendum by YOSSI DOWNING LPN on June 12, 2016 13:24:45 SPECIMEN TRANSPORTER From: YOSSI DOWNING LPN ( [facility] Nurse) To: KHALIF CAMARENA MD, PhD; Sent: 06/12/2016 13:24:45 SPECIMEN TRANSPORTER Subject: FW: *General Message Addendum by YOSSI DOWNING LPN on June 12, 2016 13:24:15 SPECIMEN TRANSPORTER Spoke with pts spouse below. Pt recently had a hemorrhoidectomy and also had a f/u appt. Spouse now reports pt had a BM yesterday and it looks like pt has another hemorrhoid and would like to be seen today. Please advise. Addendum by YOSSI DOWNING LPN on June 12, 2016 13:16:02 SPECIMEN TRANSPORTER Called pt -line is busy. Will try back From: TIMO VEGA ( Call Center Manager Bench) To: YADIRA Dial Nurse; Sent: 06/12/2016 12:19:32 SPECIMEN TRANSPORTER Subject: *General Message Caller Name/Relationship: aguilar/spouse Facility/Wing: Call Back # : [phone] Reason for call: had surgery over a week ago and is concerned about the surgical area, would like kelle to look at it today Source: [facility] POWERCHART Document Id: [id number] Miscellaneous - Rosario Perkins, C.M.A. - 06/09/2016 1:10 PM CST Adult Rock Picker Intake/History Adult Rock Picker Intake/History Entered On: 06/09/2016 13:13 SPECIMEN TRANSPORTER Performed On: 06/09/2016 13:10 SPECIMEN TRANSPORTER by ROSARIO PERKINS PROCUREMENT COST COORDINATOR Intake Chief Complaint : F/u hemorrhoidectomy 06/03. [...] Mass Index : 28.89 kg/m2 ROSARIO PERKINS [facility] 06/09/2016 13:10 SPECIMEN TRANSPORTER General Info Information Given By : Patient Preferred Communication Mode : Verbal Languages : Kyrgyz Is Patient Female and 13-50 no hysterectomy : Yes Status : Patient denies Are you ? : No ROSARIO PERKINS [facility] 06/09/2016 13:10 SPECIMEN TRANSPORTER Subjective Pain Symptoms : Yes ROSARIO PERKINS [facility] 06/09/2016 13:10 SPECIMEN TRANSPORTER Pain Scale Pain Scale Verbal 0-10 : Open ROSARIO PERKINS [facility] 06/09/2016 13:10 SPECIMEN TRANSPORTER Pain Pain Assessment Grid Pain 1 Location : Buttock Laterality : Bilateral Intensity : 6 ROSARIO PERKINS [facility] 06/09/2016 13:10 SPECIMEN TRANSPORTER Dependent Habits Exposure to Tobacco Smoke : [...] Yes Alcohol Use : Yes ROSARIO PERKINS [facility] 06/09/2016 13:10 SPECIMEN TRANSPORTER Caffeine Use Grid Caffeine Use : None ROSARIO PERKINS [facility] 06/09/2016 13:10 SPECIMEN TRANSPORTER Recreational Drug Use Grid Drug Use : Current Type : Alcohol Route : Oral Frequency : Other: TWICE A MONTH ROSARIO PERKINS [facility] 06/09/2016 13:10 SPECIMEN TRANSPORTER Source: [employer] POWERCHART Document Id: [id number] SPECIMEN TRANSPORTER!55 IMEN TRANSPORTER documented in this encounter Plan of Treatment Not on filedocumented as of this encounter Visit Diagnoses Not on filedocumented in this encounter
--- OUTSIDE RECORDS SUMMARY | 2022-02-12 14:29 | XMS_ITS | Encounter Summary ---
:1985 Author Organization [facility] Address [address] [place] [address] Care Team Providers Name Role Phone Unavailable Primary Care Provider Unavailable Encounter Details Date Type Department Care Team Description 11/28/2015 Hospital Encounter HX [facility] [place], ERICKA, C.N.P. [address] [place] [address] (Wo rk) Social History Tobacco Use Types [...] while work on 11/24/2015. Patient works at [employer]. 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 She works 64 hours every 2 weeks [...] 10/03/2004), Cytopathology, slides, cervical or vaginal (the Eliot System); manual screening under physician supervision.. (Week [...] Ordered: OV Est Pt Level 3 - 81986 - 15 min FOOTNOTES [1]Clinic Full Note; LOLI PARK CNP 11/26/2015 17:01 CDT [2]XR Lumbar Spine 2 or 3 views; ASHLEY HERNANDEZ RT(R) 11/26/2015 17:18 CDT Electronically Signed By: LOLI PARK CNP On: 11/28/2015 02:22 PM Source: [facility] POWERCHART Document Id: [id number] documented in this encounter Miscellaneous Notes Miscellaneous [...] busy. From: ERA SMITH ( Call Center Family Resource Specialist) To: Occupational Medicine [employer] Nurse; Sent: 11/29/2015 10:46:47 CDT Subject: *General Message Caller Name/Relationship Facility/Wing Call Back # [phone] Reason For Call regarding MRI Source: [facility] RoverCHART Document Id: [id number] Miscellaneous - Conversion, Historical Provider Ser - [...] again. From: JORDAN MÁRQUEZ ( Call Center Family Resource Specialist) To: [facility]ational Medicine [facility]; Sent: 11/28/2015 16:54:31 CDT Subject: *General Message Caller name / Relationship: self Facility / Wing: Callback number : [phone] Reason for call : pt would like paperwork faxed to Employer of the injury report restriction form Source: [facility] RoverCHART Document Id: [id number] Miscellaneous - Loli Park C.N.P., R.N. - 11/28/2015 2:00 PM CDT Addendum by TD STANLEY on November 28, 2015 14:14:32 CDT From: TD STANLEY ([facility] Demographic Analyst/Work Comp) To: LOLI PARK CNP; Sent: 11/28/2015 14:14:32 CDT Subject: RE: Request was faxed in per previous message. From: LOLI PARK CNP To: [facility] Demographic Analyst/Work Comp; Sent: 11/28/2015 14:00:13 CDT any work on if PT has been approved? Source: [facility] POWERCHART Document Id: [id number] Miscellaneous - Megan Nair L.P.N. - 11/28/2015 1:54 PM CDT Adult Order Checker Intake/History Adult Order Checker Intake/History Entered On: 11/28/2015 13:56 CDT Performed [...] Information Given By : Patient Languages : Armenian Is Patient Female and 13-50 no hysterectomy [...] NAIR LPN - 11/28/2015 13:54 CDT [facility] Document Id: [id number] CDT!45 documented in this encounter Plan of Treatment Not on filedocumented as of this encounter Visit Diagnoses Not on filedocumented in this encounter
--- OUTSIDE RECORDS SUMMARY | 2022-02-12 14:29 | XMS_ITS | Encounter Summary ---
:1985 Author Organization [facility] Address [address] [place] [address] Care Team Providers Name Role Phone Unavailable Primary Care Provider Unavailable Encounter Details Date Type Department Care Team Description 06/03/2016 Hospital Encounter HX [facility] Gayle Morrison M.D., Ph.D. [address] [place], [place] [phone] (Wo rk) Social History Tobacco Use Types Packs/Day Years Used Date Smoking Tobacco: Every Day Sex Assigned at Date Recorded Not on file documented as of this encounter Last Filed Vital Signs Vital Sign Reading Time Taken Comments Blood Pressure 104/72 06/03/2016 2:30 PM SLIP FILLER Pulse - - Temperature - - Respiratory Rate 18 06/03/2016 2:30 PM SLIP FILLER Oxygen Saturation - - Inhaled Oxygen Concentration - - Weight 81.6 kg (179 lb 14.3 oz) 06/03/2016 8:56 AM SLIP FILLER Height 169 cm (5' 6.54) 06/03/2016 2:45 PM SLIP FILLER Body Mass Index 28.57 06/03/2016 8:56 AM SLIP FILLER documented in this encounter Discharge Summaries Susan Cates, R.N. - 06/03/2016 2:31 PM CST Discharge Summary Discharge Summary Entered On: 06/03/2016 14:31 SLIP FILLER Performed On: 06/03/2016 14:31 SLIP FILLER by SUSAN CATES RN DC Information Discharged to : Home with family care Current Home Treatments : None Home Equipment : None Professional Skilled Services : None Special Services and Community Resources : None Mode of Discharge : Wheelchair Discharge Transportation : Private vehicle Accompanied By : Nurse SUSAN CATES RN - 06/03/2016 14:31 SLIP FILLER Education General Patient Education Powergrid Topics : [...] understanding SUSAN CATES RN - 06/03/2016 14:31 SLIP FILLER Valuables/Belongings Valuables/Belongings Grid Valuables at Bedside Clothes, Patient Valuables : Jacket, Pants, Shirt, Shoes, Undergarments Jewelry : Bracelet Personal Devices : None SUSAN CATES RN - 06/03/2016 14:31 SLIP FILLER Room Orientation/Facility Policy Reviewed : Yes Belongings Sent Home With : patient SUSAN CATES RN - 06/03/2016 14:31 SLIP FILLER [facility] Document Id: [id number] SLIP FILLER!26 FILLER Gayle Camarena M.D., Ph.D. - 06/03/2016 12:00 AM CST [id number] ADMISSION DATE: 06/03/2016 DISCHARGE DATE: 06/03/2016 ADMITTING [...] previously was unable to afford these. A social media analyst was consulted to assist with financial arrangements. [...] PhD On: 07/06/2016 04:46 PM Source: [facility] MHSDOLBEYNONRADSYS Document Id: [id number] FILLER documented in this encounter Medications at Time of Discharge Medication Sig Dispensed Refills Start Date End Date docusate sodium (COLACE) Take 1 capsule by 0 05/2016 100 mg capsule mouth 2 (two) times a day. documented as of this encounter Procedure Notes Susan Cates RJonathan. - 06/03/2016 3:30 PM CST Peripheral IV Peripheral IV Entered On: 06/03/2016 16:14 SLIP FILLER Performed On: 06/03/2016 15:30 SLIP FILLER by SUSAN CATES RN Peripheral IV Peripheral IV Assess/Intervention Grid Peripheral IV #1 IV Activity : Discontinue Date of Insertion : 06/03/2016 SLIP FILLER IV Site : Antecubital Laterality : Left Catheter Size : 20 Catheter Type : Protective SUSAN CATES RN - 06/03/2016 16:14 SLIP FILLER Source: [facility] POWERCHART Document Id: [id number] SLIP FILLER!10 FILLER Susan Cates REmekaN. - 06/03/2016 8:56 AM CST Preprocedure Checklist Document Has Been Updated Preprocedure Checklist Entered On: 06/03/2016 9:02 SLIP FILLER Performed On: 06/03/2016 8:56 SLIP FILLER by SUSAN CATES RN Checklist Last Fluid Intake : 06/02/2016 23:59 SLIP FILLER Last Food Intake : 06/02/2016 18:00 SLIP FILLER SUSAN CATES RN - 06/03/2016 8:56 SLIP FILLER Surgery Prep Grid Contacts/Glasses Removed : NA Dentures Removed : NA Hairpins/Hairpiecies Removed : NA Hearing Aid Removed : NA Home Prep Complete : NA Jewelry/Piercing Removed : Yes Makeup/Nail Mexican Removed : NA Oral Hygiene : Yes Preop Scrub AM of Surgery : NA Preop Scrub Night Prior to Surgery : NA Prosthesis Removed : NA Tampon Removed : NA Verified - No hair products used : NA Voided partition setter to procedure : NA Wearing Patient Gown : Yes SUSAN CATES RN - 06/03/2016 8:56 SLIP FILLER Pain Symptoms : No SUSAN CATES RN - 06/03/2016 8:56 SLIP FILLER Patient Rights Grid Blood Consent Signed : ANTONIO Surgical/Procedure Consent Signed : Yes SUSAN CATES RN - 06/03/2016 8:56 SLIP FILLER Family Location : [facility]- SUSAN CATES RN - 06/03/2016 8:56 SLIP FILLER Checklist II Patient Safety Grid Allergy Band [...] : SUSAN YOUNG RN - 06/03/2016 8:56 SLIP FILLER RN Who Verified Site : SUSAN CATES RN Physician Who Verified Site : GAYLE CAMARENA MD, PhD EHSUSAN PENA RN - 06/03/2016 8:56 SLIP FILLER LUIS MIGUEL Screening Known Obstructive Sleep Apnea : No - NOT diagnosed with LUIS MIGUEL LUIS MIGUEL Score : No qualifying data available. LUIS MIGUEL Results : No qualifying data available. SUSAN CATES RN - 06/03/2016 8:56 SLIP FILLER LUIS MIGUEL Assessment Do you have high [...] 1 SUSAN CATES RN - 06/03/2016 8:56 SLIP FILLER Valuables/Belongings Valuables/Belongings Grid Valuables at Bedside Clothes, Patient Valuables : Jacket, Pants, Shirt, Shoes, Undergarments Jewelry : Bracelet Personal Devices : None SUSAN CATES RN - 06/03/2016 8:56 SLIP FILLER Room Orientation/Facility Policy Reviewed : Yes SUSAN CATES RN - 06/03/2016 8:56 SLIP FILLER Education Preprocedure Education Grid Procedure Type : hemorroidectomy Education Topics : Anesthesia/Sedation, Family instructions, Pain management, Patient rights and responsibilities, Plan of care, Tubes/Drains/IV's Individuals Taught : Patient Barriers to Learning : None evident Teaching Method : Explanation Teaching Evaluation : Verbalizes understanding SUSAN CATES RN - 06/03/2016 8:56 SLIP FILLER Advance Directive Advanced Directives : No Advance Directive Additional Information : No SUSAN CATES RN - 06/03/2016 8:56 SLIP FILLER Vital Signs Temperature Core : 36.3 DegC(Converted [...] kg/m2 SUSAN CATES RN - 06/03/2016 8:56 SLIP FILLER Allergy (As Of: 06/03/2016 09:02:22 SLIP FILLER) Allergies (Active) NKA Estimated Onset Date: Unspecified ; Created By: KATIE BRUNNER MD; Reaction Status: Active ; Category: Drug ; Substance: NKA ; Type: Allergy ; Updated By: KATIE BRUNNER MD; Reviewed Date: 06/03/2016 9:02 SLIP FILLER Source: [facility] POWERCHART Document Id: [id number] SLIP FILLER!87 FILLER documented in this encounter Nursing Notes Susan Cates R.N. - 06/03/2016 9:02 AM CST Day Surgery Admission History/Asmt Adult Day Surgery Admission History/Asmt Adult Entered On: 06/03/2016 9:04 SLIP FILLER Performed On: 06/03/2016 9:02 SLIP FILLER by SUSAN CATES RN General Info Preferred Name : jarrett Admitted From : Non-Health Care Facility Point of Origin Languages : Hebrew Is Patient Female and 13-50 no hysterectomy : No SUSAN CATES RN - 06/03/2016 9:02 SLIP FILLER Nutrition Have you recently lost weight without trying? : No Decreased Appetite Nutrition : No Tube Feedings or Parenteral Nutrition : No MST Score : 0 SUSAN CATES RN - 06/03/2016 9:02 SLIP FILLER Home Environment Current Daily Living Assistance : None Living Situation : Home independently SUSAN CATES RN - 06/03/2016 9:02 SLIP FILLER Dependent Habits Exposure to Tobacco Smoke : [...] Yes SUSAN CATES RN - 06/03/2016 9:02 SLIP FILLER Caffeine Use Grid Caffeine Use : None SUSAN CATES RN - 06/03/2016 9:02 SLIP FILLER Recreational Drug Use Grid Drug Use : Current Type : Alcohol Route : Oral Frequency : Other: TWICE A MONTH SUSAN CATES RN - 06/03/2016 9:02 SLIP FILLER Psychosocial Adult Domestic Abuse Concerns : None Behavioral Health Screen/Safety Assmt : No Episcopal Preference : No Episcopal Affiliation SUSAN CATES RN - 06/03/2016 9:02 SLIP FILLER Advance Directive Advanced Directives : No Advance Directive Additional Information : No SUSAN CATES RN - 06/03/2016 9:02 SLIP FILLER Educ Needs Patient/Family Education Needs : Plan of care, Postoperative instructions, Preoperative instructions, Surgery SUSAN CATES RN - 06/03/2016 9:02 SLIP FILLER Learning Style Preference Adult Grid Patient : Demonstration, Printed materials, Verbal explanation, Video/Educational TV Family : Demonstration, Printed materials, Verbal explanation, Video/Educational TV SUSAN CATES RN - 06/03/2016 9:02 SLIP FILLER Education Preprocedure Education Grid Procedure Type : hemorroidectomy Education Topics : Anesthesia/Sedation, Family instructions, Pain management, Patient rights and responsibilities, Plan of care, Tubes/Drains/IV's Individuals Taught : Patient Barriers to Learning : None evident Teaching Method : Explanation Teaching Evaluation : Verbalizes understanding SUSAN CATES RN - 06/03/2016 9:02 SLIP FILLER Outpatient Assessment Procedural Respiratory : Respirations unlabored, Respiratory pattern regular, No cough Procedural Cardiovascular : Heart rhythm regular, Skin dry and warm Procedural Neurological : Alert, Oriented x 3, Gait steady Procedural Gastrointestinal : Abdomen non-tender and soft Procedural Genitourinary : Voiding, no difficulties Procedural Integumentary : Skin integrity intact Procedural Musculoskeletal : Activity tolerance without distress SUSAN CATES RN - 06/03/2016 9:02 SLIP FILLER Psycho/Emotional Affect/Behavior : Calm, Cooperative, Appropriate Pain Symptoms : No SUSAN CATES RN - 06/03/2016 9:02 SLIP FILLER Peripheral IV Peripheral IV Assess/Intervention Grid Peripheral IV #1 IV Activity : Start Number of Attempts : 1 Date of Insertion : 06/03/2016 SLIP FILLER IV Site : Antecubital Laterality : Left Catheter Size : 20 Catheter Type : Protective SUSAN CATES RN - 06/03/2016 9:28 SLIP FILLER Lázaro Sensory Perception Lázaro : No impairment Moisture Lázaro : Rarely moist Activity Lázaro : Walks frequently Mobility Lázaro : No limitations Nutrition Lázaro : Excellent Friction and Shear Lázaro : No apparent problem Lázaro Score : 23 SUSAN CATES RN - 06/03/2016 9:11 SLIP FILLER Source: [email or web address] Document Id: [id number] SLIP FILLER!11 FILLER Susan Cates R.N. - 06/03/2016 8:45 AM CST Protocol Vascular Access Adult Protocol Vascular Access Adult Entered On: 06/03/2016 8:45 SLIP FILLER Performed On: 06/03/2016 8:45 SLIP FILLER by SUSAN CATES floral merchandiser Access Adult Protocol Age 15 years or older Adult Protocol : Yes Vascular Access Device Adult : Yes Exclusion Criteria Adult Vascular Access Protocol : Patient has none of the below exclusions Vascular Access Protocol Status Adult : Criteria Met SUSAN CATES RN - 06/03/2016 8:45 SLIP FILLER Source: [email or web address] Document Id: [id number] SLIP FILLER!6 FILLER documented in this encounter OR Notes Op [...] HOBBS MD On: 06/03/2016 09:00 AM Source: [employer] POWERCHART Document Id: [id number] FILLER Op Note - Gayle Camarena M.D., Ph.D. [...] that has not discontinued with use of [id number] medications and stool softeners. The decision was [...] MD, PhD On: 07/08/2016 04:31 PM Source: [facility] MHSDOLBEYNONRADSYS Document Id: [id number] FILLER documented in this encounter Miscellaneous Notes Miscellaneous - Conversion, Historical Provider Ser - 06/03/2016 3:30 PM SLIP FILLER Coding Summary-Paper Based CODING DATE: 06/09/2016 FINAL [place] [facility] STATUS: * Discharged to Home or Self Care PAYOR: Medicaid APC DESCRIPTION 5313 Level 3 Lower GI Procedures ADMIT DX: REASON FOR VISIT DX: FINAL DX: PRINCIPAL: K64.3 Fourth degree hemorrhoids SECONDARY: Z72.0 Tobacco use PYMT PROC APC STAT DESCRIPTION DOCTOR NAME DATE [id number] T [facility] NTRNL LIG OTH THAN GAYLE CAMARENA 06/03/2016 RBBR BAND 2/> COL/GRP NOTE: The code number assigned matches the documented diagnosis and / or procedure in the patient's chart. However, the narrative phrase printed from the coding software may appear abbreviated, or result in slightly different terminology. Coded By: TUCKER ANTHONY BLANKET BINDER Date Saved: 06/09/2016 07:21 am Source: [facility] POWERCHART Document Id: [id number] Miscellaneous - Susan Cates RDevendra - 06/03/2016 2:45 PM CST Adult Postprocedure Assessment Adult Postprocedure Assessment Entered On: 06/03/2016 15:02 SLIP FILLER Performed On: 06/03/2016 14:45 SLIP FILLER by SUSAN CATES RN Vital Signs Height : 169 cm(Converted to: 5 ft 7 inch(es)) SUSAN CATES RN - 06/03/2016 15:02 SLIP FILLER Activity Activity Status ADL : Other: attempted to stand at bedside; more stable than previous attempt. Will reasess in 30 mins SUSAN CATES RN - 06/03/2016 15:02 SLIP FILLER Source: [facility] POWERCHART Document Id: [id number] SLIP FILLER!5 FILLER Miscellaneous - Susan Cates R.N. - 06/03/2016 2:30 PM CST Adult Postprocedure Assessment Adult Postprocedure Assessment Entered On: 06/03/2016 14:31 SLIP FILLER Performed On: 06/03/2016 14:30 SLIP FILLER by SUSAN CATES RN Vital Signs Apical [...] inch(es)) SUSAN CATES RN - 06/03/2016 14:29 SLIP FILLER General Level of Consciousness : Alert Orientation : Oriented x 3 Skin Color : Normal for ethnicity Skin Description : Normal Skin Temperature : Warm Pain Symptoms : No SUSAN CATES RN - 06/03/2016 14:29 SLIP FILLER Cardiovascular Nail Bed Color : [place] SUSAN CATES RN - 06/03/2016 14:29 SLIP FILLER Respiratory Respiratory Patient Stated Symptoms : None Respirations : Unlabored Distress : None Respiratory Pattern : Regular SUSAN CATES RN - 06/03/2016 14:29 SLIP FILLER GI/ Nausea Symptoms : No Nursing Interventions : Patient given oral fluids, Patient given food SUSAN CATES RN - 06/03/2016 14:29 SLIP FILLER Incision/Wound Incision/Wound Care Grid Activity : Assessed Wound, Dressing intact Type : Other: hemorrhoidectomy-maryellen pad in place Drainage : Bloody Drainage Amount : Small Neurovascular Status : Neurovascular intact distal to injury, Pulses distal to injury palpable, Skindistal to injury warm and pink SUSAN CATES RN - 06/03/2016 14:29 SLIP FILLER Peripheral IV Peripheral IV Assess/Intervention Grid Peripheral IV #1 IV Activity : Assessment Date of Insertion : 06/03/2016 SLIP FILLER IV Site : Antecubital Laterality : Left Catheter Size : 20 Catheter Type : Protective SUSAN CATES RN - 06/03/2016 14:29 SLIP FILLER Lower Extremity Nail Bed Color Feet Grid Left Foot : [place] Right Foot : [place] SUSAN CATES RN - 06/03/2016 14:29 SLIP FILLER Capillary Refill Feet Grid Left Foot : < 2 seconds Right Foot : < 2 seconds SUSAN CATES RN - 06/03/2016 14:29 SLIP FILLER [place] Lower Extremity Temperature Grid Left : Warm Right : Warm SUSAN CATES RN - 06/03/2016 14:29 SLIP FILLER Lower Extremity Peripheral Pulses Grid Dorsalis Pedis Pulse, Left : 2+ Normal Dorsalis Pedis Pulse, Right : 2+ Normal SUSAN CATES RN - 06/03/2016 14:29 SLIP FILLER Activity Patient Position : Elevate head of bed 45 degrees SUSAN CATES RN - 06/03/2016 14:29 SLIP FILLER Siddiqui Siddiqui Agitation Sedation Scale (RASS) : Alert and calm RASS Score : 0 SUSAN CATES RN - 06/03/2016 14:29 SLIP FILLER Source: [facility] POWERCHART Document Id: [id number] SLIP FILLER!64 FILLER Miscellaneous - Susan Cates R.N. - 06/03/2016 2:02 PM CST Adult Postprocedure Assessment Document Has Been Updated Adult Postprocedure Assessment Entered On: 06/03/2016 14:03 SLIP FILLER Performed On: 06/03/2016 14:02 SLIP FILLER by SUSAN CATES RN Vital Signs Apical Heart Rate : 72 /min Respiratory Rate : 18 /min Systolic Blood Pressure : 104 mmHg Diastolic Blood Pressure : 56 mmHg NIBP Mean : 72 mmHg SpO2 : 95 % Oxygen Therapy : Room air Height : 169 cm(Converted to: 5 ft 7 inch(es)) SUSAN CATES RN - 06/03/2016 14:02 SLIP FILLER General Level of Consciousness : Alert Orientation : Oriented x 3 Skin Color : Normal for ethnicity Skin Description : Normal Skin Temperature : Warm Pain Symptoms : No SUSAN CATES RN - 06/03/2016 14:02 SLIP FILLER Cardiovascular Nail Bed Color : [place] SUSAN CATES RN - 06/03/2016 14:02 SLIP FILLER Respiratory Respiratory Patient Stated Symptoms : None Respirations : Unlabored Distress : None Respiratory Pattern : Regular SUSAN CATES RN - 06/03/2016 14:02 SLIP FILLER GI/ Nausea Symptoms : No Nursing Interventions : Patient given oral fluids, Patient given food SUSAN CATES RN - 06/03/2016 14:02 SLIP FILLER Incision/Wound Incision/Wound Care Grid Activity : Assessed Wound Type : Other: hemorrhoidectomy-maryellen pad in place SUSAN CATES RN - 06/03/2016 14:02 SLIP FILLER Peripheral IV Peripheral IV Assess/Intervention Grid Peripheral IV #1 IV Activity : Assessment Date of Insertion : 06/03/2016 SLIP FILLER IV Site : Antecubital Laterality : Left Catheter Size : 20 Catheter Type : Protective SUSAN CATES RN - 06/03/2016 14:02 SLIP FILLER Activity Activity Status ADL : Other: attempt standing at bedside, unsucessful. will reattempt in 30 min SUSAN CATES RN - 06/03/2016 14:09 SLIP FILLER Source: [employer] Document Id: [id number] SLIP FILLER!3 FILLER Miscellaneous - Susan Cates R.N. - 06/03/2016 1:27 PM CST Adult Postprocedure Assessment Adult Postprocedure Assessment Entered On: 06/03/2016 13:32 SLIP FILLER Performed On: 06/03/2016 13:27 SLIP FILLER by SUSAN CATES RN Vital Signs Apical [...] inch(es)) SUSAN CATES RN - 06/03/2016 13:27 SLIP FILLER General Level of Consciousness : Alert Orientation : Oriented x 3 Skin Color : Normal for ethnicity Skin Description : Normal Skin Temperature : Warm Pain Symptoms : No SUSAN CATES RN - 06/03/2016 13:27 SLIP FILLER Cardiovascular Nail Bed Color : [place] SUSAN CATES RN - 06/03/2016 13:27 SLIP FILLER Respiratory Respiratory Patient Stated Symptoms : None Respirations : Unlabored Distress : None Respiratory Pattern : Regular SUSAN CATES RN - 06/03/2016 13:27 SLIP FILLER GI/ Nausea Symptoms : No Nursing Interventions : Patient given oral fluids, Patient given food SUSAN CATES RN - 06/03/2016 13:27 SLIP FILLER Incision/Wound Incision/Wound Care Grid Activity : Assessed Wound Type : Other: hemorrhoidectomy-maryellen pad in place Drainage : Bloody Drainage Amount : Small Neurovascular Status : Neurovascular intact distal to injury, Pulses distal to injury palpable, Skindistal to injury warm and pink SUSAN CATES RN - 06/03/2016 13:27 SLIP FILLER Peripheral IV Peripheral IV Assess/Intervention Grid Peripheral IV #1 IV Activity : Assessment Date of Insertion : 06/03/2016 SLIP FILLER IV Site : Antecubital Laterality : Left Catheter Size : 20 Catheter Type : Protective SUSAN CATES RN - 06/03/2016 13:27 SLIP FILLER Activity Patient Position : Elevate head of bed 45 degrees Activity Status ADL : Other: bed krishnamurthy SUSAN CATES RN - 06/03/2016 13:27 SLIP FILLER Source: [facility] POWERCHART Document Id: [id number] SLIP FILLER!49 FILLER Miscellaneous - Miguelina West R.N. - 06/03/2016 12:59 PM CST Adult Postprocedure Assessment Adult Postprocedure Assessment Entered On: 06/03/2016 13:06 SLIP FILLER Performed On: 06/03/2016 12:59 SLIP FILLER by MIGUELINA WEST RN Vital Signs Temperature [...] MIGUELINA WEST I RN - 06/03/2016 12:59 SLIP FILLER General Level of Consciousness : Alert Orientation : Oriented x 3 Skin Color : Normal for ethnicity Skin Description : Normal Skin Temperature : Warm Pain Symptoms : No MIGUELINA WEST RN - 06/03/2016 12:59 SLIP FILLER Respiratory Respiratory Patient Stated Symptoms : None Respirations : Unlabored Distress : None Respiratory Pattern : Regular MIGUELINA WEST RN - 06/03/2016 12:59 SLIP FILLER GI/ Nausea Symptoms : No MIGUELINA WEST RN - 06/03/2016 12:59 SLIP FILLER Integumentary Integumentary Patient Stated Symptoms : None Skin Turgor : Elastic Skin Integrity : Not intact MIGUELINA WEST RN - 06/03/2016 12:59 SLIP FILLER Incision/Wound Incision/Wound Care Grid Activity : Assessed Dressing Type : Other: hemorrhoidectomy-maryellen pad in place Drainage : Serosanguineous Drainage Amount : Small MIGUELINA WEST RN - 06/03/2016 12:59 SLIP FILLER Peripheral IV Peripheral IV Assess/Intervention Grid Peripheral IV #1 IV Activity : Assessment Date of Insertion : 06/03/2016 SLIP FILLER IV Site : Antecubital Laterality : Left Catheter Size : 20 Catheter Type : Protective Site Condition : No complications Drainage Description : None Site/Line Care : Secured with tape Dressing/ Activity : Dry, Intact, Transparent Flow/ Patency : No complications MIGUELINA WEST RN - 06/03/2016 12:59 SLIP FILLER Neurologic Neurological Strengths Grid Left Lower Extremity Right Lower Extremity Strength : Weak Weak Tone : Normal Normal Sensation : Decreased Absent MIGUELINA WEST RN - 06/03/2016 12:59 SLIP FILLER MIGUELINA WEST RN - 06/03/2016 12:59 SLIP FILLER Lower Extremity Nail Bed Color Feet Grid Left Foot : [place] Right Foot : [place] MIGUELINA WEST RN - 06/03/2016 12:59 SLIP FILLER Capillary Refill Feet Grid Left Foot : < 2 seconds Right Foot : < 2 seconds MIGUELINA WEST RN - 06/03/2016 12:59 SLIP FILLER [place] Lower Extremity Temperature Grid Left : Warm Right : Warm MIGUELINA WEST RN - 06/03/2016 12:59 SLIP FILLER Lower Extremity Peripheral Pulses Grid Dorsalis Pedis Pulse, Left : 2+ Normal Dorsalis Pedis Pulse, Right : 2+ Normal MIGUELINA WEST RN - 06/03/2016 12:59 SLIP FILLER Activity Patient Position : Elevate head of bed 45 degrees MIGUELINA WEST I RN - 06/03/2016 12:59 SLIP FILLER Source: [facility] POWERCHART Document Id: [id number] SLIP FILLER!77 FILLER Miscellaneous - Chevy Dixon R.N. - 06/03/2016 12:40 PM CST Adult Postprocedure Assessment Adult Postprocedure Assessment Entered On: 06/03/2016 12:43 SLIP FILLER Performed On: 06/03/2016 12:40 SLIP FILLER by CHEVY DIXON RN Vital Signs Temperature [...] inch(es)) CHEVY DIXON RN - 06/03/2016 12:40 SLIP FILLER General Level of Consciousness : Alert Orientation : Oriented x 3 Skin Color : Normal for ethnicity Skin Description : Dry Skin Temperature : Warm Pain Symptoms : No CHEVY DIXON RN - 06/03/2016 12:40 SLIP FILLER Cardiovascular Nail Bed Color : [place] Edema Assessment : No Capillary Refill : Less than 2 seconds CHEVY DIXON RN - 06/03/2016 12:40 SLIP FILLER Respiratory Respiratory Patient Stated Symptoms : None Respirations : Unlabored Distress : None Respiratory Pattern : Regular CHEVY DIXON RN - 06/03/2016 12:40 SLIP FILLER GI/ Nausea Symptoms : No Nursing Interventions : Patient given oral fluids CHEVY DIXON RN - 06/03/2016 12:40 SLIP FILLER Integumentary Integumentary Patient Stated Symptoms : None Skin Turgor : Elastic Skin Integrity : Intact Mucous Membrane Color : [place] Mucous Membrane Description : Moist Skin Color : Normal for ethnicity Skin Description : Dry Skin Temperature : Warm CHEVY DIXON RN - 06/03/2016 12:40 SLIP FILLER Incision/Wound Incision/Wound Care Grid Activity : Assessed Dressing Type : Other: hemorrhoidectomy-maryellen pad in place Drainage : None CHEVY DIXON RN - 06/03/2016 12:40 SLIP FILLER Peripheral IV Peripheral IV Assess/Intervention Grid Peripheral IV #1 IV Activity : Assessment Date of Insertion : 06/03/2016 SLIP FILLER IV Site : Antecubital Laterality : Left Catheter Size : 20 Catheter Type : Protective CHEVY DIXON RN - 06/03/2016 12:40 SLIP FILLER Neurologic Neurological Strengths Grid Left Lower Extremity Right Lower Extremity Strength : Weak Weak Sensation : Decreased Decreased CHEVY DIXON RN - 06/03/2016 12:40 SLIP FILLER CHEVY DIXON RN - 06/03/2016 12:40 SLIP FILLER Source: [facility] POWERCHART Document Id: [id number] SLIP FILLER!64 FILLER documented in this encounter Plan of Treatment Not on filedocumented as of this encounter Visit Diagnoses Not on filedocumented in this encounter
--- OUTSIDE RECORDS SUMMARY | 2022-02-12 14:29 | XMS_ITS | Encounter Summary ---
:1985 Author Organization [facility] Address [address] [place] [address] Care Team Providers Name Role Phone Unavailable Primary Care Provider Unavailable Encounter Details Date Type Department Care Team Description 02/19/2016 Hospital Encounter HX [facility] Jg Soria M.D. [address] [place] [...] Soria M.D. - 02/19/2016 1:49 PM CDT [id number] The patient presented here today for followup of weight loss. She reports doing well with the phentermine. She has since changed her diet significantly. She does report chronic intermittent constipation. She has been using svpn-ojq-lunarki medications for improvement. She denies any difficulty with sle eping, but she does have occasional lightheadedness. No tremor. No headaches, blurry vision is reported. PAST MEDICAL/SURGICAL HISTORY GERD. MEDICATIONS Phentermine. PHYSICAL EXAMINATION VITAL SIGNS: Temp 36.4, heart rate 98, BP 127/88. Weight of 90.2 kg. IMPRESSION/REPORT/PLAN Njewfl-lgeyv-slrj-old female, past medical history significant for obesity, [...] SORIA MD On: 03/05/2016 10:49 AM Source: [facility] MHSDOLBEYNONRADSYS Document Id: [id number] documented in this encounter Miscellaneous Notes Miscellaneous - Conversion, Historical Provider Ser - 06/23/2016 11:27 AM NAIL PULLER *PRIOR AUTH Document Contains Addenda Addendum by EVELYNE WEINBERG LPN on June 30, 2016 11:51:13 NAIL PULLER called [facility] pharmacy and spoke with pharmacist, states that it has been processed through just fine. From: [place] DUVAL To: YADIRA Wilkerson Nurse; Sent: 06/23/2016 11:27:48 NAIL PULLER Subject: *PRIOR AUTH Provider: Khalif Wilkerson Pharmacy: [facility] Medication: Hydromorphone HCL Comments: Prior auth needed. Please go to [employer]. Gan code: [id number] : 1985 Source: [facility] POWERCHART Document Id: [id number] Miscellaneous - Qasim Soria M.D. - 02/19/2016 8:22 PM CDT Ambulatory Discharge Medication List [facility] [address] [place], [place] [phone] Visit Information Name: RADHA BLANCHARD [facility] Number: [id number] Current Date: 02/19/2016 20:22:41 Attending Provider: QASIM SORIA MD Primary Care Provider: QASIM SORIA MD [phone] RADHA BLANCHARD has been given the following [...] MD Signed On:19-FEB-2016 20:22:39 Additional Information: Source: [facility] POWERCHART Document Id: [id number] Miscellaneous - Qasim Soria M.D. - 02/19/2016 8:22 PM CDT Ambulatory Patient Summary [facility] [address] [place], [place] [phone] Visit Information Name: RADHA BLANCHARDN [facility] Number: [id number] Current Date: 02/19/2016 20:22:42 Physicians Attending Provider: QASIM SORIA MD Primary Care Provider: QASIM SORIA MD [phone] RADHA BLANCHARD has been given the following [...] if you dont have one. Go to [email or web address] and click on Create Your Account. Then, follow the directions to complete the online form. Youll be asked for your [facility] number which you can find at the top of this document. Your Goals/Additional instructions: Source: [facility] POWERCHART Document Id: [id number] Miscellaneous - Rashmi Salter C.MEmekaAEmeka - 02/19/2016 1:57 PM CDT Adult Senior Internet Sales Consultant Intake/History Adult Senior Internet Sales Consultant Intake/History Entered On: 02/19/2016 13:58 CDT Performed On: 02/19/2016 13:57 CDT by RASHMI SALTER [facility] Intake Ambulatory Intake Additional Information : 135/90, 97 127/88, 98 Peripheral Pulse Rate : 98 /min Systolic Blood Pressure : 127 mmHg Diastolic Blood Pressure : 88 mmHg NIBP Mean : 101 mmHg RASHMI SALTER [facility] - 02/19/2016 13:59 CDT Chief Complaint : [...] Mass Index : 31.58 kg/m2 RASHMI SALTER [facility] - 02/19/2016 13:57 CDT General Info Information Given By : Patient Preferred Communication Mode : Verbal Languages : Gabonese Is Patient Female and 13-50 no hysterectomy : Yes Status : Patient denies Are you ? : No RASHMI SALTER [facility] - 02/19/2016 13:57 CDT Subjective Pain Symptoms : No RASHMI SALTER [facility] - 02/19/2016 13:57 CDT Dependent Habits Exposure to Tobacco Smoke : Patient smokes, Other: occ alcohol Smoking Status : Current every day smoker Tobacco 2A : Yes Tobacco Use/Currently Using : Yes Tobacco Use/Last 30 Days : Yes Tobacco Use/Last 12 months : Yes Type : Cigarettes: Less than 20 per day Tobacco Use/Advised to Quit : Yes RASHMI SALTER [facility] - 02/19/2016 13:57 CDT Caffeine Use Grid Caffeine Use : None RASHMI SALTER [facility] 02/19/2016 13:57 CDT Recreational Drug Use Grid Drug Use : Current Type : Alcohol Route : Oral Frequency : Other: TWICE A MONTH RASHMI SALTER [facility] 02/19/2016 13:57 CDT [facility] POWERCHART Document Id: [id number] CDT!7 documented in this encounter Plan of Treatment Not on filedocumented as of this encounter Visit Diagnoses Not on filedocumented in this encounter
--- OUTSIDE RECORDS SUMMARY | 2022-02-12 14:29 | XMS_ITS | Encounter Summary ---
:1985 Author Organization [facility] Address [address] [place] [address] Care Team Providers Name Role Phone Unavailable Primary Care Provider Unavailable Encounter Details Date Type Department Care Team Description 12/26/2015 Hospital Encounter HX [facility] Kai Longo M.D. [address] [place], [place] [address] Social History Tobacco Use Types Packs/Day Years Used Date Smoking Tobacco: Never Assessed Sex Assigned at Date Recorded Not on file documented as of this encounter Plan of Treatment Not on filedocumented as of this encounter Visit Diagnoses Not on filedocumented in this encounter
--- OUTSIDE RECORDS SUMMARY | 2022-02-12 14:29 | XMS_ITS | Encounter Summary ---
:1985 Author Organization [facility] Address [address] [place] [address] Care Team Providers Name Role Phone Unavailable Primary Care Provider Unavailable Encounter Details Date Type Department Care Team Description 06/03/2016 Hospital Encounter HX [facility] Yamilet Choe ED, M.D. [address] [place] [phone] (Wo rk) Social History Tobacco Use Types Packs/Day Years Used Date Smoking Tobacco: Every Day Sex Assigned at Date Recorded Not on file documented as of this encounter Last Filed Vital Signs Vital Sign Reading Time Taken Comments Blood Pressure 108/68 06/03/2016 10:16 PM CREW LEADER Pulse - - Temperature - - Respiratory Rate 16 06/03/2016 10:16 PM CREW LEADER Oxygen Saturation - - Inhaled Oxygen Concentration - - Weight - - Height 169 cm (5' 6.54) 06/03/2016 10:16 PM CREW LEADER Body Mass Index - - documented in this encounter Discharge Summaries Sangita Allen, REmekaN. - 06/03/2016 10:19 PM CST ED Discharge Instructions [facility] [address] [facility] [place] [address] Name: SILVIA BLANCHARD Date of : 1985 12:00 AM Visit Date: 06/03/2016 8:40 PM [facility] Number: [id number] Address: [address] [place] [phone] Primary Care Provider: SOFIE VÁZQUEZ MD IMPORTANT: [facility] in [place] would like to thank you for allowing us to assist youwith your healthcare needs. The following includes patient education materials and information regarding your injury/illness. Diagnosis: Pain Rectal Follow-Up Instructions: With: Address: When: KHALIF CAMARENA [address] [place] [address] [facility] (1) Within 2 weeks With: Address: When: [...] to drain and helps the healing process. [place] help prevent tissue in the anal canal [...] to help make bowel movements easier. ?? [phone] [place] [address]. All rights reserved. This information is not [...] IF YOU ARE CONSTIPATED: You may use cnbu-doa-qsbdwep laxatives such as MILK OF MAGNESIA (mild [...] use METAMUCIL and similar products. These are ihwi-wch-yqhlaxj fiber supplements. You must drink extra fluids [...] Vomiting blood (red or black color) ?? [phone] [facility], [address] [place] [address]. All rights reserved. This information is not [...] you dont have one. Go to [email or web address] and click on Create Your Account. Then, follow the directions to complete the online form. Youll be asked for your [facility] number which you can find at [...] home with a responsible alliance party. I, SILVIA BLANCHARD , or responsible alliance party have received this information and my questions have been answered. I have discussed any challenges I see with this plan with the nurse or physician. Patient Signature or Responsible Constitution Party/Relationship Date Time Provider Signature Date Time This document has images extracted. Please consider using [employer] for all your patient education needs. Source: [facility] POWERCHART Document Id: [id number] LEADER Sangita Allen R.N. - 06/03/2016 10:19 PM CST ED Depart Summary [facility] Emergency Department / Urgent Care Clinical Discharge Summary PERSON INFORMATION Name SILVIA BLANCHARD Age 31 Years 1985 12:00 AM Sex Female Language Bermudian PCP SOFIE VÁZQUEZ MD Marital Status Visit Id Visit Reason Rectal pain; post surgical problem Specialty Enc Type Emergency Med Service Emergency Medicine Referred by Track Group [facility] ED/UC Discharge 06/03/2016 10:18 PM Tracking Id [id number] Checkout 06/03/2016 10:18 PM Checkin 06/03/2016 8:40 PM Acuity 4 -Less Urgent Dispo Type * Discharged to Home or Self Care Arrival 06/03/2016 8:40 PM Reg Status Complete LOS 000 01:38 Address: [address] [place] [phone] Comment: PROVIDER INFORMATION Provider Role Provider Contact Time SANGITA ALLEN CLAY TEMPERER Nurse 06/03/16 20:41 ILANA CASTRO PA-C ED Provider 06/03/16 20:41 MAYLIN PAGE MD ED Provider 06/03/16 20:45 DIAGNOSIS Pain Rectal Comment: PATIENT EDUCATION INFORMATION Instructions: Treating Hemorrhoids: Surgery; HEMORRHOIDS Follow up: With: Address: When: [facility] [address] [place] [address] [facility] () Within 2 weeks With: Address: When: Return to Emergency Department Within As Needed Comments: If symptoms worsen. Source: [facility] [employer] Document Id: [id number] LEADER documented in this encounter Medications at Time of Discharge Medication Sig Dispensed Refills Start Date End Date docusate sodium (COLACE) Take 1 capsule by 0 05/2016 100 mg capsule mouth 2 (two) times a day. documented as of this encounter ED Notes Sangita Allen RJonathan. - 06/03/2016 10:19 PM CST ED Pain Assessment ED Pain Assessment Entered On: 06/03/2016 22:19 CREW LEADER Performed On: 06/03/2016 22:19 CREW LEADER by SANGITA ALLNE RN Pain Assessment Pain Symptoms : Yes SANGITA ALLEN RN - 06/03/2016 22:19 CREW LEADER Source: [facility] [employer] Document Id: [id number] CREW LEADER!3 LEADER Sangita Allen R.N. - 06/03/2016 10:18 PM CST ED Disposition Summary ED Disposition Summary Entered On: 06/03/2016 22:18 CREW LEADER Performed On: 06/03/2016 22:18 CREW LEADER by SANGITA ALLEN RN ED Disposition Summary Present in Room During Exam/Procedure : Spouse Mode of Discharge : Ambulatory Transportation : Private vehicle Discharge From ED With : Home Med List Printed Discharge Instructions Given to Patient : Yes Patient Status at Discharge from ED : Improved SANGITA ALLEN RN - 06/03/2016 22:18 CREW LEADER Source: [employer] Document Id: [id number] CREW LEADER!8 LEADER Sangita Allen R.N. - 06/03/2016 10:16 PM CST ED Nurse Reassess ED Nurse Reassess Entered On: 06/03/2016 22:17 CREW LEADER Performed On: 06/03/2016 22:16 CREW LEADER by SANGITA ALLEN RN Pain Assessment Pain Symptoms : Yes SANGITA ALLEN RN - 06/03/2016 22:16 CREW LEADER Pain Scale Pain Scale Verbal 0-10 : Open Pain Scale Non-Verbal PainAD : Open SANGITA ALLEN RN - 06/03/2016 22:16 CREW LEADER Pain Pain Assessment Grid Pain 1 Location : Rectal SANGITA ALLEN RN - 06/03/2016 22:16 CREW LEADER PAINAD Breathing : Normal breathing Negative vocalization : Occasional moan/groan. Low level, speech & negative/disapproving quality. Facial expression : Sad, frightened, frown Body language : Tense, distressed, pacing, fidgeting. Consolability : Distracted by voice or touch PAINAD Score : 4 SANGITA ALLEN RN - 06/03/2016 22:16 CREW LEADER GI Reassess GI Patient Stated Symptoms : Other: epigastric pain SANGITA ALLEN RN - 06/03/2016 22:16 CREW LEADER Source: [facility] POWERCHART Document Id: [id number] CREW LEADER!19 LEADER Maylin Page M.D. - 06/03/2016 9:08 PM [...] Note : Chief Complaint Description 06/03/2016 20:43 CREW LEADER Chief Complaint Description rectal pain. hemorrhoid surgery today. Tramadol, motrin, tylenol and tucks are not working to relieve pain. . History of Present Illness Ms. Blancahrd is a 31 year old female s/p [...] Medical/ Family/ Social History Surgical history: Esophagogastroduodenoscopy ([id number]) on 08/12/2015 at 30 Years. Tubal ligation ([id number]) on 07/16/2011 at 26 Years.. Family history: No family history items have been selected or recorded.. Social history: Family/social situation: . Problem list: All Problems (Selected) Abuse Tobacco Smoking NOS / Z72.0 / Confirmed Disease Gastroesophageal Reflux (GERD ERMELINDA) / K21.9 / Confirmed Hemorrhoids External NOS / K64.4 / Confirmed. Physical Examination Vital Signs: Vital Signs 06/03/2016 21:00 CREW LEADER Temperature Core 37.1 DegC Apical Heart Rate 88 /min Respiratory Rate 18 /min SpO2 98 % Systolic Blood Pressure 116 mmHg Diastolic Blood Pressure 94 mmHg >HHI , SpO2 06/03/2016 21:00 CREW LEADER SpO2 98 % . CONSTITUTIONAL: --- Well [...] PAGE MD On: 06/05/2016 08:49 PM Source: [facility] POWERCHART Document Id: [id number]} LEADER Sangita Allen R.N. - 06/03/2016 8:43 PM CST ED Primary Assessment Document Has Been Updated ED Primary Assessment Entered On: 06/03/2016 20:45 CREW LEADER Performed On: 06/03/2016 20:43 CREW LEADER by SANGITA ALLEN RN Reason For Visit (As Of: 06/03/2016 20:45:53 CREW LEADER) Problems(Active) Abuse Tobacco Smoking NOS (ICD-10-CM :Z72.0 ) Name of Problem: Abuse Tobacco Smoking NOS ; Recorder:DARIUS PARKS MD; Confirmation: Confirmed ; Classification: Medical ; Code: Z72.0 ; Contributor System: PowerChart ; Last Updated: 05/12/2016 15:21 CREW LEADER ; Life Cycle Date: 05/12/2016 ; Life [...] System: PowerChart ; Last Updated: 05/12/2016 15:20 CREW LEADER ; Life Cycle Date: 05/12/2016 ; Life Cycle Status: Active ; Responsible Provider: DARIUS PARKS MD; Vocabulary: ICD-10-CM Diagnoses(Active) Rectal pain Date: 06/03/2016 ; Diagnosis Type: Reason For Visit ; Confirmation: Complaint of ; Clinical Dx: Rectal pain ; Classification: Medical ; Clinical Service: Emergency medicine ; Code: PNED ; Probability: 0 ; Diagnosis Code: [id number] Triage Chief Complaint Description : rectal pain. hemorrhoid surgery today. Tramadol, motrin, tylenol and tucks are not working to relieve pain. Information Given By : Patient Present in Room During Exam/Procedure : Significant other Mode of Arrival ED : Private vehicle Track : Medical Languages : Bermudian Patient Informed of Triage Location : Emergency department Treatments Prior to Arrival : Home treatments Are you ? : No Is Patient Female and 13-50 no hysterectomy : Yes Status : Patient denies SANGITA ALLEN RN - 06/03/2016 20:43 CREW LEADER Pain Assessment Pain Symptoms : Yes SANGITA ALLEN RN 06/03/2016 20:43 CREW LEADER Pain Scale Pain Scale Verbal 0-10 : Open SANGITA ALLEN RN - 06/03/2016 20:43 CREW LEADER Pain Pain Assessment Grid Pain 1 Location : Rectal SANGITA ALLEN RN - 06/03/2016 20:43 CREW LEADER DENNY DENNY Level 1 : No DENNY Level 2 : No DENNY Level 3 : None SANGITA ALLEN RN 06/03/2016 20:43 CREW LEADER DCP GENERIC CODE Tracking Acuity : 4 -Less Urgent Tracking Group : [facility] ED/ SANGITA ALLEN RN 06/03/2016 20:43 CREW LEADER Respiratory Airway : Patent Respirations : Unlabored Respiratory Pattern : Regular Oxygen Therapy : Room air SANGITA ALLEN RN - 06/03/2016 20:43 CREW LEADER Cardiovascular Heart Rhythm : Regular Skin Color : [place] Skin Description : Dry Skin Temperature : Warm SANGITA ALLEN RN - 06/03/2016 20:43 CREW LEADER Neurological Last Well Time Known : Not applicable Level of Consciousness : Alert Orientation : Oriented x 3 Characteristics of Speech : Clear SANGITA ALLEN RN - 06/03/2016 20:43 CREW LEADER ED Psychosocial Affect/Behavior : Calm Domestic Abuse Concerns : None Behavioral Health Screen/Safety Assmt : No Emotional Support Available : Yes SANGITA ALLEN RN - 06/03/2016 20:43 CREW LEADER Gastrointestinal Nutrition ED : Adequate SANGITA ALLEN RN - 06/03/2016 20:43 CREW LEADER Musculoskeletal Fall Prevention Education Provided : Yes SANGITA ALLEN RN - 06/03/2016 20:43 CREW LEADER Social Habits Exposure to Tobacco Smoke : [...] Yes SANGITA ALLEN RN - 06/03/2016 20:43 CREW LEADER Alcohol Use Grid Alcohol Use : Yes Frequency : Occasionally SANGITA ALLEN RN - 06/03/2016 20:43 CREW LEADER Recreational Drug Use Grid Drug Use : Current Type : Alcohol Route : Oral Frequency : Other: TWICE A MONTH SANGITA ALLEN RN - 06/03/2016 20:43 CREW LEADER Source: [facility] [employer] Document Id: [id number] CREW LEADER!73 LEADER documented in this encounter Miscellaneous Notes Miscellaneous - Conversion, Historical Provider Ser - 06/03/2016 10:18 PM CREW LEADER Coding Summary-Paper Based CODING DATE: 06/11/2016 FINAL [facility] STATUS: * Discharged to Home or Self [...] STEINBERG Date Saved: 06/11/2016 09:55 am Source: [facility] [employer] Document Id: [id number] documented in this encounter Plan of Treatment Not on filedocumented as of this encounter Visit Diagnoses Not on filedocumented in this encounter
--- OUTSIDE RECORDS SUMMARY | 2022-02-12 14:29 | XMS_ITS | Encounter Summary ---
:1985 Author Organization [facility] Address [address] [place] [address] Care Team Providers Name Role Phone Unavailable Primary Care Provider Unavailable Encounter Details Date Type Department Care Team Description 06/02/2016 Hospital Encounter HX [facility] Jeff Murray M.D., Ph.D. [address] [place] [address] (Wo rk) Social History Tobacco Use Types Packs/Day Years Used Date Smoking Tobacco: Every Day Sex Assigned at Date Recorded Not on file documented as of this encounter Last Filed Vital Signs Vital Sign Reading Time Taken Comments Blood Pressure 136/79 06/02/2016 8:36 AM PROPERTY INSURANCE CLAIMS EXAMINER Pulse 86 06/02/2016 8:36 AM PROPERTY INSURANCE CLAIMS EXAMINER Temperature - - Respiratory Rate 20 06/02/2016 8:36 AM PROPERTY INSURANCE CLAIMS EXAMINER Oxygen Saturation - - Inhaled Oxygen Concentration - - Weight 81.6 kg (179 lb 14.3 oz) 06/02/2016 8:36 AM PROPERTY INSURANCE CLAIMS EXAMINER Height 169 cm (5' 6.54) 06/02/2016 8:36 AM PROPERTY INSURANCE CLAIMS EXAMINER Body Mass Index 28.57 06/02/2016 8:36 AM PROPERTY INSURANCE CLAIMS EXAMINER documented in this encounter Progress Notes Gayle Camarena M.D., Ph.D. - 06/02/2016 8:32 AM CST [place]ET[place] CHIEF COMPLAINT/REASON FOR VISIT Bleeding hemorrhoids. REFERRAL [...] the last several weeks. She has tried pqlq-rjy-kbbcnxx rectal suppositories and astringents without significant improvementin [...] MD, PhD On: 07/06/2016 04:37 PM Source: [facility] MHSDOLBEYNONRADSYS Document Id: [id number] ERTY INSURANCE CLAIMS EXAMINER documented in this encounter Miscellaneous Notes Miscellaneous - Gayle Camarena M.D., Ph.D. - 06/07/2016 3:48 PM PROPERTY INSURANCE CLAIMS EXAMINER Ambulatory Patient Summary [address] [id number] Visit Information Name: SILVIA VASQUEZ [facility] Number: [id number] Current Date: 06/07/2016 15:48:09 Physicians Attending Provider: GAYLE CAMARENA MD, PhD Primary Care Provider: SOFIE SORIA MD [phone] SILVIA VASQUEZ has been given the following [...] you dont have one. Go to [email or web address] and click on Create Your Account. Then, follow the directions to complete the online form. Youll be asked for your [facility] number which you can find at the top of this document. Your Goals/Additional instructions: Source: [facility] POWERCHART Document Id: [id number] ERTY INSURANCE CLAIMS EXAMINER Miscellaneous - Gayle Camarena M.D., Ph.D. - 06/07/2016 3:48 PM PROPERTY INSURANCE CLAIMS EXAMINER Ambulatory Discharge Medication List [facility] [address] [place], [place] [phone] Visit Information Name: SILVIA VASQUEZ [facility] Number: [id number] Current Date: 06/07/2016 15:48:09 Attending Provider: GAYLE CAMARENA MD, PhD Primary Care Provider: SOFIE SORIA MD [phone] SILVIA VASQUEZ has been given the following [...] PhD Signed On:07-JUN-2016 15:48:07 Additional Information: Source: [facility] [email or web address] Document Id: [id number] ERTY INSURANCE CLAIMS EXAMINER Miscellaneous - Conversion, Historical Provider Ser - 06/04/2016 1:43 PM PROPERTY INSURANCE CLAIMS EXAMINER PCP Yang Document Contains Addenda Addendum by JANETH LEA RN on June 04, 2016 14:00:07 PROPERTY INSURANCE CLAIMS EXAMINER Silvia gives permission verbally for nurse to talk with spouse Vlad. Reviewed use of pain medication. Plan is to use Percocet alternating with Tylenol and/or Ibuprofen as the Tramadol was not effective for the pain. No further questions from the spouse at this time. From: ERA SMITH ( Call Center Finishing Trimmer) To: Primary Care Team RN; Sent: 06/04/2016 13:43:25 PROPERTY INSURANCE CLAIMS EXAMINER Subject: PCP Yang Caller Name/Relationship - Vlad [facility] Call Back # [phone] Reason For Call Medication question Source: [facility] [email or web address] Document Id: [id number] Miscellaneous - Conversion, Historical Provider Ser - 06/02/2016 1:23 PM PROPERTY INSURANCE CLAIMS EXAMINER Insurance Verification - hemorrhoidectomy From: JEET NICOLE ([facility] Clinic Vending Route Driver/Prior Authorizations) Sent: 06/02/2016 13:23:10 PROPERTY INSURANCE CLAIMS EXAMINER Subject: Insurance Verification - hemorrhoidectomy Pt has [place] [employer] ins, verified in [employer]. No prior auth is needed for OPS hemorrhoidectomy on 06/03/16.Payment is based on med nec and current ins at time of the procedure; this is not a guarantee of payment. Source: [facility] [email or web address] Document Id: [id number] Miscellaneous - Cathy Weinberg R.N. - 06/02/2016 10:01 AM CST scheduled for hemorrhoidectomy on 06/03/16 in [place] From: CATHY WEINBERG LPN ([facility] Surgery Nurse) To: YADIRA PreOp Nurse; [facility] Clinic Vending Route Driver/Prior Authorizations; ISABELLE General Surgery Nurse; Sent: 06/02/2016 10:01:33 PROPERTY INSURANCE CLAIMS EXAMINER Subject: scheduled for hemorrhoidectomy on 06/03/16 in [place] surgery work sheet faxed to [place]. per Dr. Camarena hemorrhoidectomy to be scheduled 06/03/16 in [place]. [place] surgical instructions given in clinic, verbalized understanding. Source: [facility] POWERCHART Document Id: [id number] Electronically signed by Conversion, [facility] Preassembler And Inspector [id number] at 10/13/2016 3:14 AM CDT Miscellaneous - Cathy Weinberg R.N. - 06/02/2016 8:36 AM CST Adult Moss Picker Intake/History Adult Moss Picker Intake/History Entered On: 06/02/2016 8:39 PROPERTY INSURANCE CLAIMS EXAMINER Performed On: 06/02/2016 8:36 PROPERTY INSURANCE CLAIMS EXAMINER by CATHY WEINBERG LPN Intake Chief Complaint [...] kg/m2 CATHY WEINBERG LPN - 06/02/2016 8:36 PROPERTY INSURANCE CLAIMS EXAMINER General Info Information Given By : Patient Preferred Communication Mode : Verbal Languages : Egyptian Is Patient Female and 13-50 no hysterectomy : Yes Status : Patient denies Are you ? : No CATHY WEINBERG LPN - 06/02/2016 8:36 PROPERTY INSURANCE CLAIMS EXAMINER Subjective Pain Symptoms : No CATHY WEINBERG LPN - 06/02/2016 8:36 PROPERTY INSURANCE CLAIMS EXAMINER Dependent Habits Exposure to Tobacco Smoke : [...] Yes CATHY WEINBERG LPN - 06/02/2016 8:36 PROPERTY INSURANCE CLAIMS EXAMINER Caffeine Use Grid Caffeine Use : None CATHY WEINBERG LPN - 06/02/2016 8:36 PROPERTY INSURANCE CLAIMS EXAMINER Recreational Drug Use Grid Drug Use : Current Type : Alcohol Route : Oral Frequency : Other: TWICE A MONTH CATHY WEINBERG LPN - 06/02/2016 8:36 PROPERTY INSURANCE CLAIMS EXAMINER Source: [facility] [email or web address] Document Id: [id number] PROPERTY INSURANCE CLAIMS EXAMINER!47 ERTY INSURANCE CLAIMS EXAMINER documented in this encounter Plan of Treatment Not on filedocumented as of this encounter Visit Diagnoses Not on filedocumented in this encounter
--- OUTSIDE RECORDS SUMMARY | 2022-02-12 14:29 | XMS_ITS | Encounter Summary ---
:1985 Author Organization [facility] Address [address] [place] [address] Care Team Providers Name Role Phone Unavailable Primary Care Provider Unavailable Encounter Details Date Type Department Care Team Description 11/26/2015 Hospital Encounter HX [facility] Loli Park, ERICKA, C.N.P. [address] [place] [phone] (Wo rk) Social History Tobacco Use [...] LOLI PARK CNP To: [facility]IR[facility] Occupational Medicine [place] Nurse; Sent: 11/27/2015 09:36:26 CDT Show up: 11/27/2015 09:36:00 CDT Subject: Results Notification back xrays look normal. no arthritis no dislocations, normal disc spaces. order has been placed for PT. how is she feeling today? Results: Date Result Type Result Name 11/27/2015 9:18 Radiology XR Lumbar Spine 2 or 3 views Source: [facility] Ambition, IncCHART Document Id: [id number] Electronically signed by Conversion, [facility] Retail Service Representative [id number] at 09/27/2016 12:21 PM CDT Miscellaneous - Loli Park C.N.P., R.N. - 11/27/2015 9:34 AM CDT Addendum by DANDY NAIR LPN on November 27, 2015 11:42:53 CDT From: DANDY NAIR LPN ( Occupational [facility] [place] Nurse) To: [facility] Dial Marker/Work Comp; Sent: 11/27/2015 11:42:53 CDT Subject: WC PA Addendum by DANDY NAIR LPN on November 27, 2015 11:41:29 CDT Workers Compensation Referral Referred from:Occupatioanl med Requesting Provider: _Loli Jeff Requesting Department/Facility: _ Date of Injury: _11/24/2015 Body part Injured: _lower back Employer on date of claimed injury: _[employer] Surgery/Procedure/Test/Specialty Referring for: _Phyical Therapy Diagnosis/Reason: _Lower back pain MRI Requested: Yes _/No_x Patient Claustrophobic? _n Patient Diabetic? _n Patient n _ From: LOLI PARK DOFFER To: Occupational Medicine [place] Nurse; Sent: 11/27/2015 09:34:05 CDT please request PA for PT, low back injury [facility] Document Id: [id number] Electronically signed by Conversion, [facility] Retail Service Representative [id number] at 09/27/2016 12:21 PM CDT Miscellaneous - Conversion, Historical Provider Ser - 11/27/2015 9:15 AM CDT *General Message Document Contains Addenda Addendum by DANDY NAIR LPN on November 27, 2015 11:39:12 CDT xray report given to pt From: NADEEM DIEGO ( Call Center Consumer Electronic Retail Specialist) To: Occupational Medicine [place] Nurse; Sent: 11/27/2015 09:15:13 CDT Subject: *General Message Caller Name/Relationship Facility/Wing Call Back # [phone] Reason For Call Looking for x-ray results Source: [facility] FilmBreak Document Id: [id number] documented in this encounter Plan of Treatment [...] pain COMPARISON: None. IMPRESSION: Normal cervical lordosis. Larios btle retrolisthesis of L5 on S1. No [...]
--- OUTSIDE RECORDS SUMMARY | 2022-02-12 14:29 | XMS_ITS | Encounter Summary ---
:1985 Author Organization [facility] Address [address] [place] [address] Care Team Providers Name Role Phone Unavailable Primary Care Provider Unavailable Encounter Details Date Type Department Care Team Description 11/14/2015 Hospital Encounter HX [facility] Alcides Hill M.D. [address] [place] [phone] (Wo rk) Social History Tobacco Use Types [...] 11/14/2015 11:26 AM CDT ED Discharge Instructions [facility] [address] [facility] [place] [address] Name: SILVIA VASQUEZ Date of : 1985 12:00 AM Visit Date: 11/14/2015 10:38 AM [facility] Number: [id number] Address: [address] [place] [phone] Primary Care Provider: SOFIE VÁZQUEZ MD IMPORTANT: [facility] in [place] would like to thank you for allowing [...] if you dont have one. Go to [email or web address] and click on Create Your Account. Then, follow the directions to complete the online form. Youll be asked for your [facility] number which you can find [...] Date Time Provider Signature Date Time Source: [facility] POWERCHART Document Id: [id number] Isabella Kaur L.P.N. - 11/14/2015 11:26 AM CDT ED Depart Summary [facility] Emergency Department / Urgent Care Clinical Discharge Summary PERSON INFORMATION Name SILVIA VASQUEZ Age 30 Years 1985 12:00 AM Sex Female Language Bhutanese PCP SOFIE VÁZQUEZ MD Marital Status Visit Id Visit Reason UC - Sore Throat; SORE THROAT Specialty [facility] Outpatient Med Service Urgent Care Referred by Track Group [facility] ED/UC Discharge 11/14/2015 11:26 AM Tracking Id [id number] Checkout 11/14/2015 11:26 AM Checkin 11/14/2015 10:38 AM Acuity 4 -Less Urgent Dispo Type * Discharged to Home or Self Care Arrival 11/14/2015 10:38 AM Reg Status Complete LOS 000 00:48 Address: [address] [place] [phone] Comment: PROVIDER INFORMATION Provider Role Provider Contact Time ALCIDES HILL MD ED Provider 11/14/15 10:42 ISABELLA KAUR LPN ED Nurse 11/14/15 10:42 DIAGNOSIS Comment: PATIENT EDUCATION INFORMATION Instructions: Follow up: Source: [facility] POWERCHART Document Id: [id number] documented in this encounter Progress Notes Alcides Hill M.D. - 11/14/2015 10:38 AM CDT [id number] CHIEF COMPLAINT/REASON FOR VISIT Sore throat. HISTORY [...] HILL MD On: 11/15/2015 04:54 PM Source: [facility] MHSDOLBEYNONRADSYS Document Id: [id number] documented in this encounter H&P Notes Isabella Kuar L.PEmekaNEmeka - 11/14/2015 10:50 AM CDT Urgent [...] ft 5 inch(es), 65 inch(es)) ISABELLA KAUR [facility] 11/14/2015 10:50 CDT General Info Information Given By : Patient Languages : Bhutanese Is Patient Female and 13-50 no hysterectomy : Yes Status : Patient denies Are you ? : No ISABELLA KAUR [facility] 11/14/2015 10:50 CDT Subjective Pain Symptoms : Yes ISABELLA KAUR [facility] 11/14/2015 10:50 CDT Pain Scale Pain Scale Verbal 0-10 : Open ISABELLA KAUR [facility] 11/14/2015 10:50 CDT Pain Pain Assessment Grid Pain 1 Location : Throat Intensity : 6 ISABELLA KAUR CUTTER OPERATOR HELPER11/14/2015 10:50 CDT Dependent Habits Exposure to Tobacco Smoke : Patient smokes, Other: occ alcohol Smoking Status : Current every day smoker Tobacco 2A : Yes Tobacco Use/Currently Using : Yes Tobacco Use/Last 30 Days : Yes Tobacco Use/Last 12 months : Yes Type : Cigarettes: Less than 20 per day Tobacco Use/Advised to Quit : Yes ISABELLA KAUR CUTTER OPERATOR HELPER11/14/2015 10:50 CDT Caffeine Use Grid Caffeine Use : None ISABELLA KAUR [facility] 11/14/2015 10:50 CDT Recreational Drug Use Grid Drug Use : None ISABELLA KAUR CUTTER OPERATOR HELPER11/14/2015 10:50 CDT Nutrition Nutrition Risk Factors by History Adult : None ISABELLA KAUR [facility] 11/14/2015 10:50 CDT Functional Current Daily Living Assistance : None ISABELLA KAUR [facility] 11/14/2015 10:50 CDT Psychosocial Domestic Abuse Concerns : None Behavioral Health Screen/Safety Assmt : No Faith Preference : No Faith Affiliation ISABELLA KAUR [facility] 11/14/2015 10:50 CDT Advance Directive Advanced Directives : No Advance Directive Additional Information : No ISABELLA KAUR [facility] 11/14/2015 10:50 CDT Educ Needs Learning Style Preference Adult Grid Patient : Printed materials Family : None ISABELLA KAUR [facility] 11/14/2015 10:50 CDT Source: [email or web address] POWERCHART Document Id: [id number] CDT!57 documented in this encounter ED Notes [...] KAUR LPN - 11/14/2015 11:26 CDT Source: [employer] Document Id: [id number] CDT!5 Sangita Allen REmekaNEmeka - 11/14/2015 10:40 [...] Medical ; Code: K21.9 ; Contributor System: O[employer] MORGAN ; Last Updated: 08/12/2015 10:33 CDT ; Life Cycle Status: Active ; Responsible Provider: CHEO KHAN MD; Vocabulary: ICD-10-CM Diagnoses(Active) UC - Sore Throat Date: 11/14/2015 ; Diagnosis Type: Reason For Visit ; Confirmation: Complaint of ; Clinical Dx: UC - Sore Throat ; Classification: Medical ; Clinical Service: Emergency medicine ; Code: PNED ; Probability: 0 ; Diagnosis Code: [id number] Triage Chief Complaint Description : sore throat on left side Information Given By : Patient Present in Room During Exam/Procedure : Alone Mode of Arrival ED : Private vehicle Track : Medical Languages : Bhutanese Patient Informed of Triage Location : Urgent [...] 4 -Less Urgent Tracking Group : [facility] ED/ SANGITA ALLEN RN - 11/14/2015 10:40 CDT Source: [employer] Document Id: [id number] CDT!26 documented in this encounter Miscellaneous Notes Miscellaneous - Alcides Hill M.D. - 11/14/2015 11:25 AM CDT Work Excuse November 14, 2015 SILVIA VASQUEZ [address] [place] [id number] Dear SILVIA VASQUEZ, You were examined in [...] _ Sincerely, ALCIDES HILL [address] [place] [address] Electronic Signature Electronically Signed By: ALCIDES HILL MD On: November 14, 2015 This document has images extracted. Source: [facility] Omniso[employer] ServicesCHART Document Id: [id number] Electronically signed by [facility] Hogshead Head Matcher [id number] at 09/26/2016 10:43 PM CDT Alcides Hernandez M.D. - 11/14/2015 11:25 AM CDT School Excuse November 14, 2015 SILVIA VASQUEZ [address] [place] [phone] Dear SILVIA VASQUEZ, You were examined in [...] Not necessary Notes: _ Sincerely, ALCIDES HILL [facility] [place] [address] Electronic Signature Electronically Signed By: ALCIDES HILL MD On: November 14, 2015 This document has images extracted. Source: [facility] [employer] ServicesCHART Document Id: [id number] Electronically signed by [facility], [facility] Hogshead Head Matcher [id number] at 09/26/2016 10:43 PM CDT Alcides Hernandez M.D. - 11/14/2015 11:24 AM CDT School Excuse November 14, 2015 SILVIA VASQUEZ [address] [place] [address] [id number] Dear SILVIA VASQUEZ, You were examined in [...] _ Sincerely, ALCIDES HILL [address] [place] [address] Electronic Signature Electronically Signed By: ALCIDES HILL MD On: November 14, 2015 This document has images extracted. Source: [employer] Document Id: [id number] Miscellaneous - Alcides Hill M.D. - 11/14/2015 11:18 AM CDT Work Excuse November 14, 2015 SILVIA VASQUEZ [address] [place] [id number] Dear SILVIA VASQUEZ, You were examined in [...] _ Sincerely, ALCIDES HILL [address] [place] [address] Electronic Signature Electronically Signed By: ALCIDES HILL MD On: November 14, 2015 This document has images extracted. Source: [employer] Document Id: [id number] Electronically signed by Patience, [facility] Hogshead Head Matcher [id number] at 09/26/2016 10:43 PM CDT documented in [...] Strep A Screen (11/14/2015 10:48 AM CDT) [facility] Authentic Response Method Time Signature HXRapid Strep POWERCHART Confirmation HXPre Negative for POWERCHART Group A Strep by culture. HXFinal Negative for POWERCHART Group A Strep by culture. Specimen Anatomical Collection Method Collection Time Receive d Time (Source) Location / / Volume Laterality Throat 11/14/2015 10:48 11/14/2015 AM CDT 10:48 AM CDT Alcides Hill M.D. LAB MICROBIOLOGY - GENERAL O [place] Performing Organization Address City/[facility] Code Phon e Number POWERCHART Rapid Strep A Screen (11/14/2015 10:48 AM CDT) [facility] Authentic Response Method Time Signature HXStrep A POWERCHART Screen [...]
--- OUTSIDE RECORDS SUMMARY | 2022-02-12 14:29 | XMS_ITS | Encounter Summary ---
:1985 Author Organization [facility] Address [address] [place] [address] Care Team Providers Name Role Phone Unavailable Primary Care Provider Unavailable Encounter Details Date Type Department Care Team Description 08/20/2015 Hospital Encounter HX [facility] Bruce Miller M.D. [address] (Wo rk) Social History Tobacco [...] 08/20/2015 5:17 PM CDT ED Depart Summary [facility] Emergency Department / Urgent Care Clinical Discharge Summary PERSON INFORMATION Name SILVIA BLANCHARD Age 30 Years 1985 12:00 AM Sex Female Language Romanian PCP SOFIE SORIA MD Marital Status Visit Id Visit Reason Finger pain-swelling; lt hand 4th digit injury Specialty Enc Type Hospital Outpatient Med Service Urgent Care Referred by Track Group [facility] ED/UC Discharge 08/20/2015 5:17 PM Tracking Id [id number] Checkout 08/20/2015 5:17 PM Checkin 08/20/2015 4:25 PM Acuity 4 -Less Urgent Dispo Type * Discharged to Home or Self Care Arrival 08/20/2015 4:25 PM Reg Status Complete LOS 000 00:52 Address: [address] [place] [phone] Comment: PROVIDER INFORMATION Provider Role Provider Contact Time DHIRAJ MILLER MD ED Provider 08/20/15 16:31 ISABELLA CURRIE LPN ED Nurse 08/20/15 16:31 DIAGNOSIS Comment: PATIENT EDUCATION INFORMATION Instructions: Follow up: Source: [facility] POWERCHART Document Id: [id number] Neal Hunter L.P.N. - 08/20/2015 5:17 PM CDT ED Discharge Instructions [address] [address] Name: SILVIA BLANCHARD Date of : 1985 12:00 AM Visit Date: 08/20/2015 4:25 PM [facility] Number: [id number] Address: [address] [place] [phone] Primary Care Provider: SOFIE SORIA MD IMPORTANT: [facility] in [place] would like to thank you for allowing us to assist youwith your healthcare needs. The following includes patient education materials and information regarding your injury/illness. Diagnosis: Follow-Up Instructions: Your Upcoming Appointments: Date Time Location Provider 08/23/2015 08:15 [facility] Sofie Soria MD Patient Education Materials: Consider [...] if you dont have one. Go to [email or web address] and click on Create Your Account. Then, follow the directions to complete the online form. Youll be asked for your [facility] number which you can find at [...] ride home with a responsible constitution party. Sylvia, SILVIA BLANCHARD , or responsible constitution party have received this information and my questions have been answered. I have discussed any challenges I see with this plan with the nurse or physician. Patient Signature or Responsible Libertarian/Relationship Date Time Provider Signature Date Time Source: [facility] POWERCHART Document Id: [id number] documented in this encounter Progress Notes Dhiraj Miller M.D. - 08/20/2015 4:25 PM CDT [id number] CHIEF COMPLAINT/REASON FOR VISIT Finger injury. Silvia [...] MILLER MD On: 08/27/2015 06:48 PM Source: [facility] MHSDOLBEYNONRADSYS Document Id: [id number] documented in this encounter H&P Notes Isabella Currie L.PEmekaN. - 08/20/2015 4:49 PM CDT Urgent Care Intake Urgent Care Intake Entered On: 08/20/2015 16:51 CDT Performed On: 08/20/2015 16:49 CDT by ISABELLA CURRIE EXAM PROCTOR Intake Chief Complaint : LEFT RING FINGER INJURY PRIOR TO ARRIVAL. Temperature Core : 37.1 DegC(Converted to: 98.8 DegF) Peripheral Pulse Rate : 88 /min Respiratory Rate : 16 /min Heart Rhythm : Regular Height : 166 cm(Converted to: 5 ft 5 inch(es), 65 inch(es)) ISABELLA CURRIE [facility] 08/20/2015 16:49 CDT General Info Information Given By : Patient Languages : Romanian Is Patient Female and 13-50 no hysterectomy : Yes Status : Patient denies Are you ? : No ISABELLA CURRIE [facility] 08/20/2015 16:49 CDT Subjective Pain Symptoms : Yes ISABELLA CURRIE [facility] 08/20/2015 16:49 CDT Pain Scale Pain Scale Verbal 0-10 : Open ISABELLA CURRIE [facility] 08/20/2015 16:49 CDT Pain Pain Assessment Grid Pain 1 Location : Finger Laterality : Left Intensity : 5 ISABELLA CURRIE [facility] 08/20/2015 16:49 CDT Dependent Habits Exposure to Tobacco Smoke : Patient smokes, Other: occ alcohol Smoking Status : Current every day smoker Tobacco 2A : Yes Tobacco Use/Currently Using : Yes Tobacco Use/Last 30 Days : Yes Tobacco Use/Last 12 months : Yes Type : Cigarettes: Less than 20 per day Tobacco Use/Advised to Quit : Yes ISABELLA CURRIE [facility] 08/20/2015 16:49 CDT Caffeine Use Grid Caffeine Use : None ISABELLA CURRIE [facility] 08/20/2015 16:49 CDT Recreational Drug Use Grid Drug Use : None ISABELLA CURRIE [facility] 08/20/2015 16:49 CDT Nutrition Nutrition Risk Factors by History Adult : None ISABELLA CURRIE [facility] 08/20/2015 16:49 CDT Functional Current Daily Living Assistance : None ISABELLA CURRIE [facility] 08/20/2015 16:49 CDT Psychosocial Domestic Abuse Concerns : None Behavioral Health Screen/Safety Assmt : No Church Preference : No Church Affiliation ISABELLA CURRIE [facility] 08/20/2015 16:49 CDT Advance Directive Advanced Directives : No Advance Directive Additional Information : No ISABELLA CURRIE [facility] 08/20/2015 16:49 CDT Educ Needs Learning Style Preference Adult Grid Patient : Printed materials Family : None ISABELLA CURRIE LPN - 08/20/2015 16:49 CDT Source: [facility] MatchbookCHART Document Id: [id number] CDT!54 documented in this encounter ED Notes [...] HUNTER LPN - 08/20/2015 17:16 CDT Source: [facility] MatchbookCHART Document Id: [id number] CDT!6 Franca Brito R.N. - 08/20/2015 4:26 [...] Medical ; Code: K21.9 ; Contributor System: [employer] ; Last Updated: 08/12/2015 10:33 CDT ; Life Cycle Status: Active ; Responsible Provider: CHEO KHAN MD; Vocabulary: ICD-10-CM Diagnoses(Active) Finger pain-swelling Date: 08/20/2015 ; Diagnosis Type: Reason For Visit ; Confirmation: Complaint of ; Clinical Dx: Finger pain-swelling ; Classification: Medical ; Clinical Service: Emergency medicine ; Code: PNED ; Probability: 0 ; Diagnosis Code: [id number] Triage Chief Complaint Description : pt arrives c/o left 4th finger pain onset 1 hour prior to arrival. Information Given By : Patient Present in Room During Exam/Procedure : Alone Mode of Arrival ED : Private vehicle Track : Trauma Other Languages : Romanian Patient Informed of Triage Location : Urgent [...] : 4 -Less Urgent Tracking Group : [facility] ED/ FRANCA BRITO 08/20/2015 16:26 CDT Allergy (As Of: 08/20/2015 16:27:44 CDT) Allergies (Active) NKA Estimated Onset Date: Unspecified ; Created By: KATIE BRUNNER MD; Reaction Status: Active ; Category: Drug ; Substance: NKA ; Type: Allergy ; Updated By: KATIE BRUNNER MD; Reviewed Date: 08/12/2015 9:36 CDT [facility] Document Id: [id number] CDT!29 documented in this encounter Plan of [...]
--- OUTSIDE RECORDS SUMMARY | 2022-02-12 14:29 | XMS_ITS | Encounter Summary ---
:1985 Author Organization [facility] Address [address] [place] [address] Care Team Providers Name Role Phone Unavailable Primary Care Provider Unavailable Encounter Details Date Type Department Care Team Description 11/26/2015 Hospital Encounter HX [facility] [place], ERICKA, C.N.P. [address] [place] [phone] (Wo rk) Social History Tobacco Use Types [...] Clinic Full Note CHIEF COMPLAINT/REASON FOR VISIT [facility]. DOI 11/24/2015. HISTORY OF PRESENT ILLNESS Patient comes in today for work comp evaluation. She injured her back while work on 11/24/2015. Patient works at [employer]. 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 (Week [...] Acute OV Est Pt Level 4 - 32756 - 25 min Orders: MR Lumbar Spine w/o contrast XR Lumbar Spine 2 or 3 views Electronically Signed By: LOLI PARK CNP On: 11/26/2015 05:09 PM Source: [facility] POWERCHART Document Id: [id number] documented in this encounter Miscellaneous Notes Miscellaneous [...] From: MEGAN NAIR LPN ( [facility]) To: LOLI PARK CNP; Sent: 12/10/2015 14:52:49 CDT Subject: FW: YADIRA work comp Addendum by JEANCARLOS HINKLE RN on December 10, 2015 13:28:10 CDT From: JEANCARLOS HINKLE RN ([facility] Drill Sergeant/Work Comp) To: YADIRA Lower Level Specialty Treatment Coordinator; KINGSTON ROJAS; Cc: YADIRA Occupational Medicine [facility] Nurse; [facility] Drill Sergeant/Work Comp; Sent: 12/10/2015 13:28:10 CDT Subject: FW: YADIRA work comp Rec'd fax with DENIAL for MRI, lumbar spine. It has been found not medically necessary d/t no radicular findings on exam and no trial of conservative care, per Claudine Christy/RTW. cl# [id number]. if patient wants to pursue MRI she [...] 2015 08:31:19 CDT From: JEANCARLOS HINKLE RN ([facility] Drill Sergeant/Work Comp) To: LILY HOOKER; Sent: 12/09/2015 08:31:19 CDT Subject: FW: AU work comp Addendum by JEANCARLOS HINKLE RN on December 09, 2015 08:27:59 CDT From: JEANCARLOS HINKLE RN ([facility] Drill Sergeant/Work Comp) To: YADIRA Occupational Medicine [place] Nurse; [facility] Drill Sergeant/Work Comp; Cc: YADIRA Lower Level Specialty Treatment Coordinator; Sent: 12/09/2015 08:27:59 CDT Subject: RE: YADIRA work comp Rec'd fax with auth for a total of 6 PT visits for the lumbar spine. Schedule patient. Addendum by LOLI PARK CNP on November 28, 2015 14:34:42 CDT noted Addendum by MEGAN NAIR LPN on November 28, 2015 14:19:57 CDT From: MEGAN NAIR LPN ( Occupational Medicine [place] Nurse) To: LOLI PARK CNP; Sent: 11/28/2015 14:19:57 CDT Subject: FW: AU work comp Addendum by JEANCARLOS HINKLE RN on November 28, 2015 12:38:18 CDT From: JEANCARLOS HINKLE RN ([facility] Drill Sergeant/Work Comp) To: YADIRA Occupational Medicine [place] Nurse; [facility] Drill Sergeant/Work Comp; Cc: KINGSTON ROJAS; Lower Level Specialty Treatment Coordinator; Sent: 11/28/2015 12:38:18 CDT Subject: RE: work comp adjustor is Prashant Unger p# [phone] nurse is Sophia Lopez p# [phone] Addendum by MEGAN NAIR LPN on November 28, 2015 11:33:58 CDT notified Addendum by JEANCARLOS HINKLE RN on November 28, 2015 08:21:53 CDT From: JEANCARLOS HINKLE RN ([facility] Drill Sergeant/Work Comp) To: YADIRA Occupational Medicine [place] Nurse; Cc: [facility] Drill Sergeant/Work Comp; KINGSTON ROJAS; Lower Level Specialty Treatment Coordinator; Sent: 11/28/2015 08:21:53 CDT Subject: work comp Faxed request for 1) MRI, L-spine and 2) PT eval & treat---12 sessions Comp Use Only Date of injury:_ 11/24/15 emp: [employer] Body Part:_ low back Insurance Company:_ [employer] Claim #_ [id number] Director [place] [employer].Isak Chu Phone:_ [phone] Fax:_ [phone] Pending:_ XX Approved: _ Denied:_ Date: _ By Whom:_ Patient notified of appointment:_ Addendum by MEGAN NAIR LPN on November 27, 2015 14:29:23 CDT From: MEGAN NAIR LPN ( [facility]) To: [facility] Drill Sergeant/Work Comp; Sent: 11/27/2015 14:29:23 CDT Subject: wc PA Addendum by MEGAN NAIR LPN on November 27, 2015 14:29:10 CDT Workers Compensation Referral Referred from: Occupatioanl med Requesting Provider: Deanna Garcia Requesting Department/Facility: _MRI Date of Injury: _11/24/15 Body part Injured: _lower back Employer on date of claimed injury: _[employer] Surgery/Procedure/Test/Specialty Referring for: _MRI Diagnosis/Reason: _Back pain MRI Requested: Yes _x/No_ Patient Claustrophobic? _unknown Patient Diabetic? _n Patient ? _n From: LOLI PARK CNP To: [facility]; Sent: 11/26/2015 16:57:36 CDT please request PA for lumbar MRI, Source: [facility] POWERCHART Document Id: [id number] Miscellaneous - Megan Nair, L.P.N. 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 Machine Operator Intake/History Adult Cooky Machine Operator Intake/History Entered On: 11/26/2015 16:14 CDT Performed On: 11/26/2015 16:11 CDT by MEGAN NAIR LPN Intake Chief Complaint : wc fu femi ne doi 11/24/15 lower back Temperature Core : [...] Information Given By : Patient Languages : Indonesian Is Patient Female and 13-50 no hysterectomy [...] NAIR LPN - 11/26/2015 16:11 CDT [facility] Document Id: [id number] CDT!46 documented in this encounter Plan of Treatment Not on filedocumented as of this encounter Visit Diagnoses Not on filedocumented in this encounter
--- OUTSIDE RECORDS SUMMARY | 2022-02-12 14:29 | XMS_ITS | Encounter Summary ---
:1985 Author Organization [facility] Address [address] [place] [address] Care Team Providers Name Role Phone Unavailable Primary Care Provider Unavailable Encounter Details Date Type Department Care Team Description 05/27/2016 Hospital Encounter HX [facility] ED Mimi Vicente D.O. [address] [place] [address] [id number] (Wo rk) Social History Tobacco Use Types Packs/Day Years Used Date Smoking Tobacco: Every Day Sex Assigned at Date Recorded Not on file documented as of this encounter Last Filed Vital Signs Vital Sign Reading Time Taken Comments Blood Pressure 139/77 05/27/2016 3:40 AM MULE DEVELOPER Pulse 110 05/27/2016 3:40 AM MULE DEVELOPER Temperature - - Respiratory Rate 18 05/27/2016 3:40 AM MULE DEVELOPER Oxygen Saturation - - Inhaled Oxygen Concentration - - Weight - - Height - - Body Mass Index - - documented in this encounter Discharge Summaries Mimi Vicente D.O. - 05/30/2016 12:05 PM CST ED Discharge Instructions [facility] [address] [facility] [place] [address] Name: SILVIA BLANCHARD Date of : 1985 12:00 AM Visit Date: 05/27/2016 3:31 AM [facility] Number: [id number] Address: [address] [place] [phone] Primary Care Provider: SOFIE VÁZQUEZ MD IMPORTANT: [facility] in [place] would like to thank you for allowing us to assist youwith your healthcare needs. The following includes patient education materials and information regarding your injury/illness. Diagnosis: Follow-Up Instructions: With: Address: When: *Follow Up with Surgery Within 2 - 4 days Comments: Symptomatic external hemorrhoids With: Address: When: SOFIE VÁZQUEZ [address] [place] [phone] Business (1) Within As Needed Your Upcoming [...] IF YOU ARE CONSTIPATED: You may use ynsj-ppv-updsboe laxatives such as MILK OF MAGNESIA (mild [...] use METAMUCIL and similar products. These are ahyx-wtp-vegqaet fiber supplements. You must drink extra fluids [...] Vomiting blood (red or black color) ?? [id number] Lennie Swain, [address] [place] [address], [place] [address]. All rights reserved. This information is not [...] if you dont have one. Go to [email or web address] and click on Create Your Account. Then, follow the directions to complete the online form. Youll be asked for your [facility] number which you can find [...] document has images extracted. Please consider using [facility] for all your patient education needs. Source: [employer] Document Id: [id number] DEVELOPER Mimi Vicente D.O. - 05/30/2016 12:05 PM CST ED Depart Summary [facility] Emergency Department / Urgent Care Clinical Discharge Summary PERSON INFORMATION Name SILVIA BLANCHARD Age 31 Years 1985 12:00 AM Sex Female Language Spanish PCP SOFIE VÁZQUEZ MD Marital Status Visit Id Visit Reason Hemorrhoids; Hemorrhoids Specialty Enc Type Emergency Med Service Emergency Medicine Referred by Track Group [facility] ED/UC Discharge 05/27/2016 4:47 AM Tracking Id [id number] Checkout 05/27/2016 4:47 AM Checkin 05/27/2016 3:31 AM Acuity 5 -Non Urgent Dispo Type * Discharged to Home or Self Care Arrival 05/27/2016 3:31 AM Reg Status Complete LOS 000 01:16 Address: [address] [place] [phone] Comment: PROVIDER INFORMATION Provider Role Provider Contact Time DEVI RAZA RN ED Nurse 05/27/16 03:37 MIMI VICENTE DO ED Provider 05/27/16 03:38 DEEPTI FOY C.N.A. ED Bin Piler 05/27/16 04:01 DIAGNOSIS Comment: PATIENT EDUCATION INFORMATION Instructions: HEMORRHOIDS Follow up: With: Address: When: *Follow Up with Surgery Within 2 - 4 days Comments: Symptomatic external hemorrhoids With: Address: When: SOFIE VÁZQUEZ [address] [place] [address] [phone] Business (1) Within As Needed Source: [employer] Document Id: [id number] DEVELOPER documented in this encounter ED Notes Devi Raza R.N. - 05/27/2016 4:47 AM CST ED Disposition Summary ED Disposition Summary Entered On: 05/27/2016 4:52 MULE DEVELOPER Performed On: 05/27/2016 4:47 MULE DEVELOPER by DEVI RAZA BUTTERMAKER CONTINUOUS CHURN Disposition Summary Present in Room During Exam/Procedure : Spouse Mode of Discharge : Ambulatory Transportation : Private vehicle Discharge From ED With : Home Med List Printed Discharge Instructions Given to Patient : Yes Patient Status at Discharge from ED : Improved Comment : pt recommended to use tuck pads and prep H DEVI RAZA RN - 05/27/2016 4:51 MULE DEVELOPER Source: [employer] Document Id: [id number] MULE DEVELOPER!9 DEVELOPER Devi Raza R.N. - 05/27/2016 4:47 AM CST ED Pain Assessment ED Pain Assessment Entered On: 05/27/2016 4:52 MULE DEVELOPER Performed On: 05/27/2016 4:47 MULE DEVELOPER by DEVI RAZA RN Pain Assessment Pain Symptoms : Yes DEVI RAZA RN - 05/27/2016 4:52 MULE DEVELOPER Source: [employer] Document Id: [id number] MULE DEVELOPER!3 DEVELOPER Mimi Vicente D.O. - 05/27/2016 3:49 AM CST Hemorrhoids Patient: SILVIA BLANCHARD Age: 31 years Sex: Female : 1985 Author: MIMI VICENTE DO Attachments: None Basic Information History source: Patient. Arrival mode: Private vehicle. History limitation: None. Additional information: Chief Complaint from Nursing Triage Note : Chief Complaint Description 05/27/2016 3:35 MULE DEVELOPER Chief Complaint Description Pt reports she has [...] as documented in chart. Surgical history: Esophagogastroduodenoscopy ([id number]) on 08/12/2015 at 30 Years. Tubal ligation ([id number]) on 07/16/2011 at 26 Years.. Family history: No family history items have been selected or recorded.. Physical Examination Vital Signs: Vital Signs 05/27/2016 3:40 MULE DEVELOPER Temperature Core 36.4 DegC LOW Peripheral Pulse Rate 110 /min HI Respiratory Rate 18 /min SpO2 98 % Systolic Blood Pressure 139 mmHg Diastolic Blood Pressure 77 mmHg , SpO2 05/27/2016 3:40 MULE DEVELOPER SpO2 98 % . General: Alert. Skin: [...] Stable. Disposition: Discharged: to home. Prescriptions: Prescription [facility]: oxyCODONE-acetaminophen 5 mg-325 mg oral tablet [...] Discharge ED Patient (Order Processing): 05/27/2016 4:39 MULE DEVELOPER, Once. Electronically Signed By: MIMI VICENTE DO On: 05/30/2016 12:05 PM Modified by and Electronically Signed by: MIMI VICENTE DO On: 05/27/2016 04:40 AM Source: [facility] POWERCHART Document Id: [id number]} DEVELOPER Devi Raza R.N. - 05/27/2016 3:35 AM CST ED Primary Assessment Document Has Been Updated ED Primary Assessment Entered On: 05/27/2016 4:51 MULE DEVELOPER Performed On: 05/27/2016 3:35 MULE DEVELOPER by DEVI RAZA RN Reason For Visit (As Of: 05/27/2016 04:51:40 MULE DEVELOPER) Problems(Active) Abuse Tobacco Smoking NOS (ICD-10-CM :Z72.0 ) Name of Problem: Abuse Tobacco Smoking NOS ; Recorder:DARIUS PARKS MD; Confirmation: Confirmed ; Classification: Medical ; Code: Z72.0 ; Contributor System: PowerChart ; Last Updated: 05/12/2016 15:21 MULE DEVELOPER ; Life Cycle Date: 05/12/2016 ; Life Cycle Status: Active ; Responsible Provider: DARIUS PARKS MD; Vocabulary: ICD-10-CM Disease Gastroesophageal Reflux (GERD ERMELINDA) (ICD-10-CM :K21.9 ) Name of Problem: Disease Gastroesophageal Reflux (GERD ERMELINDA) ; Recorder: CHEO KHAN MD; Confirmation: Confirmed ; Classification: Medical ; Code: K21.9 ; Contributor System: Rov[employer] EntertainmentChart ; Last Updated: 08/12/2015 10:33 CDT ; Life Cycle Status: Active ; Responsible Provider: CHEO KHAN MD; Vocabulary: ICD-10-CM Hemorrhoids External NOS (ICD-10-CM :K64.4 ) Name of Problem: Hemorrhoids External NOS ; Recorder: DARIUS PARKS MD; Confirmation: Confirmed ; Classification: Medical ; Code: K64.4 ; Contributor System: Mobile Captain ; Last Updated: 05/12/2016 15:20 MULE DEVELOPER ; Life Cycle Date: 05/12/2016 ; Life Cycle Status: Active ; Responsible Provider: DARIUS PARKS MD; Vocabulary: ICD-10-CM Diagnoses(Active) Hemorrhoids Date: 05/27/2016 ; Diagnosis Type: Reason For Visit ; Confirmation: Confirmed ; ClinicalDx: Hemorrhoids ; Classification: Medical ; Clinical Service: Emergency medicine ; Code: PNED ; Probability: 0 ; Diagnosis Code: [id number] Triage Chief Complaint Description : Pt reports she has hemorrhoids. Tonight, one was bleeding. She states she has many and they are painful. She is using prepiration H Mode of Arrival ED : Private vehicle Track : Medical Languages : Spanish Treatments Prior to Arrival : None Are you ? : No Is Patient Female and 13-50 no hysterectomy : Yes Status : Patient denies DEVI RAZA RN - 05/27/2016 4:48 MULE DEVELOPER Pain Assessment Pain Symptoms : Yes DEVI RAZA RN 05/27/2016 4:48 MULE DEVELOPER Pain Scale Pain Scale Verbal 0-10 : Open DEVI RAZA RN 05/27/2016 4:48 MULE DEVELOPER Pain Pain Assessment Grid Pain 1 Location : Other: rectal Intensity : 8 DEVI RAZA RN 05/27/2016 4:48 MULE DEVELOPER DENNY DCP GENERIC CODE Tracking Acuity : 5 -Non Urgent Tracking Group : [facility] ED/ DEVI RAZA RN - 05/27/2016 4:48 MULE DEVELOPER Respiratory Airway : Patent Respirations : Unlabored Respiratory Pattern : Regular DEVI RAZA RN 05/27/2016 4:48 MULE DEVELOPER Cardiovascular Heart Rhythm : Regular Skin Color : Normal for ethnicity Skin Description : Dry Skin Temperature : Warm DEVI RAZA RN - 05/27/2016 4:48 MULE DEVELOPER Neurological Last Well Time Known : Not applicable Level of Consciousness : Alert Orientation : Oriented x 3 Characteristics of Speech : Clear Neuro Patient Stated Symptoms : None DEVI RAZA RN 05/27/2016 4:48 MULE DEVELOPER ED Psychosocial Affect/Behavior : Calm, Cooperative, Appropriate Domestic Abuse Concerns : None Behavioral Health Screen/Safety Assmt : No DEVI RAZA RN - 05/27/2016 4:48 MULE DEVELOPER Gastrointestinal Nutrition ED : Adequate DEVI RAZA RN - 05/27/2016 4:48 MULE DEVELOPER Musculoskeletal Fall Prevention Education Provided : DEVI PRADO RN - 05/27/2016 4:48 MULE DEVELOPER Social Habits Exposure to Tobacco Smoke : Patient smokes, Other: occ alcohol Smoking Status : Current every day smoker Tobacco 2A : Yes Tobacco Use/Currently Using : Yes Tobacco Use/Last 30 Days : Yes Tobacco Use/Last 12 months : Yes Type : Cigarettes: Less than 20 per day Tobacco Use/Advised to Quit : No DEVI RAZA RN - 05/27/2016 4:48 MULE DEVELOPER Alcohol Use Grid Alcohol Use : Yes Frequency : Occasionally DEVI RAZA RN - 05/27/2016 4:48 MULE DEVELOPER Recreational Drug Use Grid Drug Use : Current Type : Alcohol Route : Oral Frequency : Other: TWICE A MONTH DEVI RAZA RN - 05/27/2016 4:48 MULE DEVELOPER [facility] Document Id: [id number] MULE DEVELOPER!65 DEVELOPER documented in this encounter Miscellaneous Notes Telephone Encounter - Conversion, Historical Provider Ser - 05/27/2016 8:09 AM CST FW: Follow Up with Surgery Document Contains Addenda Addendum by TRELL BUNN on May 28, 2016 12:13:37 MULE DEVELOPER Closing message. Addendum by EVELYNE WEINBERG LPN on May 28, 2016 12:06:26 MULE DEVELOPER From: EVELYNE WEINBERG LPN ( Surgery Nurse) To: Specialty Ux Information Architect; Sent: 05/28/2016 12:06:26 MULE DEVELOPER Subject: RE: Follow Up with Surgery yes Addendum by TIMO VEGA on May 28, 2016 11:22:16 MULE DEVELOPER From: TIMO VEGA ( Specialty Ux Information Architect) To: Surgery Nurse; Sent: 05/28/2016 11:22:16 MULE DEVELOPER Subject: RE: Follow Up with Surgery appt scheduled. is patient aware? Addendum by EVELYNE WEINBERG LPN on May 28, 2016 09:53:32 MULE DEVELOPER From: EVELYNE WEINBERG LPN ( Surgery Nurse) To: Specialty Ux Information Architect; Sent: 05/28/2016 09:53:32 MULE DEVELOPER Subject: RE: Follow Up with Surgery states would like 06/05/[address] Gilliland for consult in [place]. please add patient to schedule, thanks. Addendum by TRELL BUNN on May 27, 2016 16:05:00 MULE DEVELOPER From: TRELL BUNN ( Specialty Ux Information Architect) To: Surgery Nurse; Sent: 05/27/2016 16:05:00 MULE DEVELOPER ! Subject: FW: Follow Up with Surgery See below, patient in a lot of pain. Caller Name/Relationship Vlad Blanchard/ [facility]/ Call Back # [phone] Reason For Call Please see previous messages States his in a lot of pain and needs this procedure tank. Please call tank Addendum by TRELL BUNN on May 27, 2016 15:39:08 MULE DEVELOPER Called patient, no answer, unable to leave a message. Addendum by ROBERT BANSAL LPN on May 27, 2016 11:11:45 MULE DEVELOPER From: ROBERT BANSAL LPN ( Surgery Nurse) To: Specialty Ux Information Architect; Sent: 05/27/2016 11:11:45 MULE DEVELOPER Subject: FW: Follow Up with Surgery Addendum by ROBERT BANSAL LPN on May 27, 2016 11:11:35 MULE DEVELOPER NEXT AVAIL From: TRELL BUNN ( Specialty Ux Information Architect) To: Surgery Nurse; Sent: 05/27/2016 08:09:03 MULE DEVELOPER Subject: FW: Follow Up with Surgery Please see below, nothing available in requested time frame. Okay to schedule next available or sooner time? Follow Up Request: Follow Up with Surgery Date Requested: May 27, 2016 04:52:46 MULE DEVELOPER Ed Location: [facility] ED ED Attending: MIMI VICENTE DO Order [...] Follow Up Comments: Symptomatic external hemorrhoids [facility] Document Id: [id number] Miscellaneous - Devi Raza, R.N. - 05/27/2016 4:52 AM CST Valuables/Belongings Valuables/Belongings Entered On: 05/27/2016 4:52 MULE DEVELOPER Performed On: 05/27/2016 4:52 MULE DEVELOPER by DEVI RAZA RN Valuables/Belongings Belongings Sent Home With : pt Comment : sent with a take home of DEVI Barajas RN - 05/27/2016 4:52 MULE DEVELOPER Source: [facility] [employer] Document Id: [id number] MULE DEVELOPER!4 DEVELOPER Miscellaneous - Conversion, Historical Provider Ser - 05/27/2016 4:47 AM MULE DEVELOPER Coding Summary-Paper Based CODING DATE: 06/03/2016 FINAL [facility] STATUS: * Discharged to Home [...] STEINBERG Date Saved: 06/03/2016 01:08 pm Source: [facility] [employer] Document Id: [id number] documented in this encounter Plan of Treatment Not on filedocumented as of this encounter Visit Diagnoses Not on filedocumented in this encounter
--- OUTSIDE RECORDS SUMMARY | 2022-02-12 14:29 | XMS_ITS | Encounter Summary ---
:1985 Author Organization [facility] Address [address] [place] [address] Care Team Providers Name Role Phone Unavailable Primary Care Provider Unavailable Encounter Details Date Type Department Care Team Description 05/12/2016 Hospital Encounter HX [facility] Augusto Parks M.D. [address] [place], [place] [address] (Wo rk) Social History Tobacco Use Types Packs/Day Years Used Date Smoking Tobacco: Every Day Sex Assigned at Date Recorded Not on file documented as of this encounter Last Filed Vital Signs Vital Sign Reading Time Taken Comments Blood Pressure 129/78 05/12/2016 2:35 PM BODY SANDER Pulse 99 05/12/2016 2:35 PM BODY SANDER Temperature - - Respiratory Rate 20 05/12/2016 2:35 PM BODY SANDER Oxygen Saturation - - Inhaled Oxygen Concentration - - Weight 82.3 kg (181 lb 7 oz) 05/12/2016 2:35 PM BODY SANDER Height 169 cm (5' 6.54) 05/12/2016 2:35 PM BODY SANDER Body Mass Index 28.82 05/12/2016 2:35 PM BODY SANDER documented in this encounter Progress Notes Bacilio Parks M.D. - 05/12/2016 2:30 PM CST [id number] CHIEF COMPLAINT/REASON FOR VISIT Hemorrhoids. HISTORY OF [...] Body mass index 28.9. RECTAL: There are ckddq-ep-lzibqubo external hemorrhoids. None are thrombosed. There are no fissures, tears, other perianal lesions. SKIN: No perianal rash. IMPRESSION/REPORT/PLAN 1. External hemorrhoids, 2. Health maintenance plan. I discussed that I think if she were to use Preparation-H at least twicea day on a scheduled basis and if she even has bleeding after wiping after that, start yduw-oxe-ngiqjwl fiber supplement of her choice daily and tonj-vdy-yxhsurx, generic MiraLAX daily titrating to 1 lo lio-qc-dblsoag formed bowel movement. I think these will [...] PARKS MD On: 05/14/2016 08:05 AM Source: [facility] MHSDOLBEYNONRADSYS Document Id: [id number] SANDER documented in this encounter Miscellaneous Notes Miscellaneous - Conversion, Historical Provider Ser - 07/01/2016 11:24 AM BODY SANDER *PRIOR AUTHORIZATION Document Contains Addenda Addendum by GAYLE CAMARENA MD, PhD on July 03, 2016 17:39:57 BODY SANDER From: GAYLE CAMARENA MD, PhD To: YADIRA Camarena Nurse; Sent: 07/03/2016 17:39:57 BODY SANDER Subject: RE: *PRIOR AUTHORIZATION Yes. The hydromorphone was denied by her insurance. Thanks. 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 Do you still want this rx filled? From: JOSUE LYNN ([place] Health Rating Examiner) To: YADIRA Dial Nurse; Sent: 07/01/2016 11:24:06 BODY SANDER Subject: *PRIOR AUTHORIZATION Provider:Dr Camarena Pharmacy:[facility] Medication:HYDROMORPHONE HCL Comments: Prior authorization needed. Go to [employer] [place]: [id number] :1985 Source: [facility] POWERCHART Document Id: [id number] Miscellaneous - Janett Schofield R.N. - 06/15/2016 3:59 PM CST Addendum by TERI DONIS RN on June 16, 2016 12:01:03 BODY SANDER noted, thank you. Addendum by GAYLE CAMARENA MD, PhD on June 16, 2016 11:58:33 BODY SANDER From: GAYLE CAMARENA MD, PhD To: [place] Surgical Specialty Nurse Line; BOBBI ASHBY RN ELECTRONIC COURT RECORDER; Cc: SD General Surgery Nurse; Sent: 06/16/2016 11:58:33 BODY SANDER Subject: RE: She was admited to [place] overnight. Addendum by TERI DONIS RN on June 16, 2016 08:03:12 BODY SANDER message was left for patient to call back. I will offer f/u with bobbi today. Addendum by BOBBI ASHBY RN ELECTRONIC COURT RECORDER on June 16, 2016 07:55:23 BODY SANDER From: BOBBI ASHBY RN ELECTRONIC COURT RECORDER To: SD Surgical Specialty Nurse Line; Cc: SD General Surgery Nurse; GAYLE CAMARENA MD, PhD; Sent: 06/16/2016 07:55:23 BODY SANDER Subject: RE: I will see her today please. Addendum by KIN BORJAS CMA on June 15, 2016 16:36:05 BODY SANDER From: KIN BORJAS CMA ([facility] General Surgery Nurse) To: GAYLE CAMARENA MD, PhD; Sent: 06/15/2016 16:36:05 BODY SANDER Subject: FW: From: JANETT SCHOFIELD RN ([facility] Surgical Specialty Nurse Line) To: [place] General Surgery Nurse; BOBBI ASHBY RN ELECTRONIC COURT RECORDER; Sent: 06/15/2016 15:59:31 BODY SANDER Pt calls stating she had a hemorrhoidectomy [...] Please advise. Will call pt at # [phone]. Source: [employer] Document Id: [id number] Electronically signed by Conversion, [facility] Grain Loader [id number] at 10/12/2016 9:55 PM CDT Miscellaneous - Conversion, Historical Provider Ser - 05/27/2016 4:25 PM BODY SANDER *General Message Document Contains Addenda Addendum by TRELL BUNN on May 28, 2016 12:13:49 BODY SANDER See other msgs. Closing message. From: ERA SMITH ( Call Center Shoe Laster) To: Specialty Internal Affairs Commander; Sent: 05/27/2016 16:25:18 BODY SANDER Subject: *General Message Caller Name/Relationship Vlad Blanchard [facility]/Wing Call Back # [phone] Reason For Call returning call to schedule appt with surgeon [facility] [employer] Document Id: [id number] Miscellaneous - Conversion, Historical Provider Ser - 05/27/2016 12:23 PM BODY SANDER Surgery Document Contains Addenda Addendum by TRELL BUNN on May 27, 2016 16:04:33 BODY SANDER Returned call to spouse awhile back aware we need to wait for the scheduling guidelines from nurse.Added to other msg. From: NADEEM DIEGO ( Call Center Shoe Laster) To: Specialty Internal Affairs Commander; Sent: 05/27/2016 12:23:07 BODY SANDER Subject: Surgery Caller Name/Relationship Vlad Blanchard/ [facility] Facility/Wing Call Back # [phone] Reason For Call Please see previous messages States his in a lot of pain and needs this procedure tank. Please call tank Source: [facility] POWERCHART Document Id: [id number] Miscellaneous - Conversion, Historical Provider Ser - 05/27/2016 7:58 AM BODY SANDER *General Message Document Contains Addenda Addendum by TRELL BUNN on May 27, 2016 08:10:27 BODY SANDER Returned call. Aware we received referral and awaiting response from nurse for scheduling guidelines. Closing message. From: NADEEM DIEGO ( Call Center Shoe Laster) To: Specialty Internal Affairs Commander; Sent: 05/27/2016 07:58:47 BODY SANDER Subject: *General Message Caller Name/Relationship Vlad Blanchard/ Facility/Wing Call Back # [phone] Reason For Call Pt was in the ER for Hemorrhoids and she Needs to set up an appt. with a Surgeon Source: [facility] [employer]CHART Document Id: [id number] Miscellaneous - Radha Otto C.M.A. - 05/12/2016 3:52 PM CST MnVFC Eligibility MnVFC Eligibility Entered On: 05/12/2016 15:52 BODY SANDER Performed On: 05/12/2016 15:52 BODY SANDER by RADHA OTTO CMA MnV[facility] Eligibility Provided MnVFC eligibility information : No RADHA OTTO CMA - 05/12/2016 15:52 BODY SANDER Source: [facility] POWERCHART Document Id: [id number] BODY SANDER!3 SANDER Miscellaneous - Radha Otto C.M.A. - 05/12/2016 3:50 PM CST MnVFC Eligibility MnVFC Eligibility Entered On: 05/12/2016 15:50 BODY SANDER Performed On: 05/12/2016 15:50 BODY SANDER by RADHA OTTO CMA MnVFC Eligibility Provided MnVFC eligibility information : No BIANCA OTTORA [place] [facility] - 05/12/2016 15:50 BODY SANDER Source: [facility] POWERCHART Document Id: [id number] BODY SANDER!3 SANDER Miscellaneous - Bacilio Parks M.D. - 05/12/2016 3:38 PM CST Ambulatory Patient Summary [facility] [address] [place], [place] [phone] Visit Information Name: SILVIA BLANCHARD [facility] Number: [id number] Current Date: 05/12/2016 15:38:56 Physicians Attending Provider: BACILIO PARKS MD Primary Care Provider: SOFIE SORIA MD [phone] SILVIA BLANCHARD has been given the following [...] if you dont have one. Go to [email or web address] and click on Create Your Account. Then, follow the directions to complete the online form. Youll be asked for your [facility] number which you can find at the top of this document. Your Goals/Additional instructions: Source: [facility] POWERCHART Document Id: [id number] SANDER Miscellaneous - Bacilio Parks M.D. - 05/12/2016 3:38 PM CST Ambulatory Discharge Medication List [address] [id number] Visit Information Name: BLANCHARDSERGEISILVIAADRIENNE MALIK [facility] Number: [id number] Current Date: 05/12/2016 15:38:56 Attending Provider: BACILIO PARKS MD Primary Care Provider: SOFIE SORIA MD [phone] SILVIA BLANCHARD has been given the following [...] MD Signed On:12-MAY-2016 15:38:52 Additional Information: Source: [facility] POWERCHART Document Id: [id number] SANDER Miscellaneous - Radha Otto C.M.A. - 05/12/2016 2:35 PM CST Adult Casting Machine Service Operator Intake/History Adult Casting Machine Service Operator Intake/History Entered On: 05/12/2016 14:38 BODY SANDER Performed On: 05/12/2016 14:35 BODY SANDER by RADHA OTTO MARSHMALLOW MACHINE OPERATOR Intake Chief Complaint : Hemorrhoids Temperature Core [...] Mass Index : 28.82 kg/m2 RADHA OTTO [facility] - 05/12/2016 14:35 BODY SANDER General Info Information Given By : Patient Languages : Ukrainian Is Patient Female and 13-50 no hysterectomy : Yes Status : Patient denies Are you ? : No RADHA OTTO CMA - 05/12/2016 14:35 BODY SANDER Subjective Pain Symptoms : Yes RADHA OTTO CMA - 05/12/2016 14:35 BODY SANDER Pain Scale Pain Scale Verbal 0-10 : Open RADHA OTTO CMA - 05/12/2016 14:35 BODY SANDER Pain Pain Assessment Grid Pain 1 Location : Other: Hemorrhoids Intensity : 4 RADHA OTTO CMA - 05/12/2016 14:35 BODY SANDER Dependent Habits Exposure to Tobacco Smoke : Patient smokes, Other: occ alcohol Smoking Status : Current every day smoker Tobacco 2A : Yes Tobacco Use/Currently Using : Yes Tobacco Use/Last 30 Days : Yes Tobacco Use/Last 12 months : Yes Type : Cigarettes: Less than 20 per day Tobacco Use/Advised to Quit : Yes RADHA OTTO CMA - 05/12/2016 14:35 BODY SANDER Caffeine Use Grid Caffeine Use : None RADHA OTTO [facility] - 05/12/2016 14:35 BODY SANDER Recreational Drug Use Grid Drug Use : Current Type : Alcohol Route : Oral Frequency : Other: TWICE A MONTH RADHA OTTO [facility] - 05/12/2016 14:35 BODY SANDER Source: [facility] [employer] Document Id: [id number] BODY SANDER!50 SANDER documented in this encounter Plan of Treatment Not on filedocumented as of this encounter Visit Diagnoses Not on filedocumented in this encounter
--- OUTSIDE RECORDS SUMMARY | 2022-02-12 14:29 | XMS_ITS | Encounter Summary ---
:1985 Author Organization [facility] Address [address] [place] [address] Care Team Providers Name Role Phone Unavailable Primary Care Provider Unavailable Encounter Details Date Type Department Care Team Description 12/09/2015 Hospital Encounter HX [facility] [place] Jg Soria M.D. [address] [place] [...] Soria M.D. - 12/09/2015 12:55 PM CDT [id number] Patient presented here today with concerns of [...] medications. She is not taking any other pgel-fpt-hahtnxm medications. SOCIAL HISTORY She reports occasional ETOH intake. She does smoke under 10 cigarettes per day. No illegal drug use reported. PHYSICAL EXAMINATION VITAL SIGNS: Temp of 36.7, BP 120/77, saturating at 100%. GENERAL: No acute distress. CARDIOVASCULAR: Regular rate and rhythm. No murmur, rubs or gallops appreciated. NEUROLOGIC: No focal abnormality is noted. No tremor. EXTREMITIES: No edema. IMPRESSION/REPORT/PLAN Nnedue-dskmq-mddp-old female who is seen here today for [...] SORIA MD On: 12/12/2015 05:03 PM Source: [facility] MHSDOLBEYNONRADSYS Document Id: [id number] documented in this encounter Miscellaneous Notes Miscellaneous - Conversion, Historical Provider Ser - 12/30/2015 1:46 PM CDT *General Message From: TRELL GARRETT ( Lower Level Specialty Air Compressor Engineer) Sent: 12/30/2015 13:46:18 CDT Subject: *General Message Patient has a referral that is and will be cancelled. Please see following note from requestqueue. 12/16/15 Letter Mailed. [facility] 12-09-15 Ok to sched, work comp approved 6 sessions. 12-10-15 tried calling patient, phone rings many times and then cuts off to a busy signal. jla 12/12/15 tried calling again, phone rings and then goes to fast busy signal, unable to leave a message. [facility] Source: [facility] POWERCHART Document Id: [id number] Miscellaneous - Conversion, Historical Provider Ser - [...] Next appt is 01/03/16. Awaiting appt with nursing teacher. From: NADEEM DIEGO ( Call Center Air Compressor Engineer) To: Primary Care Team RN; Sent: 12/17/2015 12:41:50 CDT Subject: PCP Yang Caller Name/Relationship Facility/Wing Call Back # [phone] Reason For Call Questions on her wt. loss medication Source: [facility] CommonTimeCHART Document Id: [id number] Olga - Sofie Soria M.D. - 12/09/2015 1:44 PM CDT Addendum by RASHMI SALTER CMA on December 09, 2015 14:05:10 CDT Referral sent. From: SOFIE SORIA MD To: YADIRA Batista/Jaime/Yang/Monica/Kelly/Iraida Nurse; Sent: 12/09/2015 13:44:39 CDT Consult bariatric surgery Dx: obesity Source: [facility] [employer] Document Id: [id number] Olga - Sofie Soria M.D. - 12/09/2015 1:37 PM CDT Ambulatory Patient Summary [facility] [address] [place], [place] [phone] Visit Information Name: SILVIA BLANCHARD [facility] Number: [id number] Current Date: 12/09/2015 13:37:02 Physicians Attending Provider: SOFIE SORIA MD Primary Care Provider: SOFIE SORIA MD [phone] SILVIA BLANCHARD has been given the following [...] if you dont have one. Go to [email or web address] and click on Create Your Account. Then, follow the directions to complete the online form. Youll be asked for your [facility] number which you can find at the top of this document. Your Goals/Additional instructions: Source: [facility] POWERCHART Document Id: [id number] Miscellaneous - Sofie Soria M.D. - 12/09/2015 1:37 PM CDT Ambulatory Discharge Medication List [place] [address] [place], [place] [phone] Visit Information Name: SILVIA BLANCHARD [facility] Number: [id number] Visit Date: 12/09/2015 13:37:02 Attending Provider: OSFIE SORIA MD Primary Care Provider: SOFIE SORIA MD [phone] SILVIA BLANCHARD has been given the following [...] MD Signed On:09-DEC-2015 13:37:00 Additional Information: Source: [facility] POWERCHART Document Id: [id number] Miscellaneous - Hernesto Cruz LEmekaPEmekaN. - 12/09/2015 1:19 PM CDT Adult Health Education Aide Intake/History Adult Health Education Aide Intake/History Entered On: 12/09/2015 13:24 CDT Performed [...] Mass Index : 37.39 kg/m2 HERNESTO CRUZ [facility] - 12/09/2015 13:19 CDT General Info Information Given By : Patient Preferred Communication Mode : Verbal Languages : South Sudanese Is Patient Female and 13-50 no hysterectomy : Yes Status : Patient denies Are you ? : No [facility]NESTO CRU[facility] - 12/09/2015 13:19 CDT Subjective Pain Symptoms : No HERNESTO CRUZ [facility] - 12/09/2015 13:19 CDT Dependent Habits Exposure to Tobacco Smoke : Patient smokes, Other: occ alcohol Smoking Status : Current every day smoker Tobacco 2A : Yes Tobacco Use/Currently Using : Yes Tobacco Use/Last 30 Days : Yes Tobacco Use/Last 12 months : Yes Type : Other: UNDER 10 A DAY Alcohol Use : Yes HERNESTO CRUZ [facility] - 12/09/2015 13:19 CDT Caffeine Use Grid Caffeine Use : None [facility]NESTO CRUZ [facility] - 12/09/2015 13:19 CDT Recreational Drug Use Grid Drug Use : Current Type : Alcohol Route : Oral Frequency : Other: TWICE A MONTH [facility]NESTO CRUZ [facility] 12/09/2015 13:19 CDT [facility] Document Id: [id number] CDT!45 documented in this encounter Plan of Treatment Not on filedocumented as of this encounter Visit Diagnoses Not on filedocumented in this encounter
--- OUTSIDE RECORDS SUMMARY | 2022-02-12 14:29 | XMS_ITS | Encounter Summary ---
:1985 Author Organization [facility] Address [address] [place] [address] Care Team Providers Name Role Phone Unavailable Primary Care Provider Unavailable Encounter Details Date Type Department Care Team Description 07/25/2015 Hospital Encounter HX [facility] ED Lane Shi M.D. [address] [place] [phone] (Wo rk) Social History Tobacco Use [...] 07/25/2015 3:59 PM CDT ED Depart Summary [facility] Emergency Department / Urgent Care Clinical Discharge Summary PERSON INFORMATION Name SILVIA BLANCHARD Age 30 Years 1985 12:00 AM Sex Female Language Danish PCP SOFIE VÁZQUEZ MD Marital Status Visit Id Visit Reason Chest pain - Pleuritic; chest pain Specialty Enc Type Emergency Med Service Emergency Medicine Referred by [employer] [facility] ED/UC Discharge 07/25/2015 3:59 PM Tracking Id [id number] Checkout 07/25/2015 3:59 PM Checkin 07/25/2015 3:01 PM Acuity 3 -Urgent Dispo Type * Discharged to Home or Self Care Arrival 07/25/2015 3:01 PM Reg Status Complete LOS 000 00:58 Address: [address] [place] [phone] Comment: PROVIDER INFORMATION Provider Role Provider Contact Time LANE SHI MD ED Provider 07/25/15 15:10 KYLEE WOODARD WET PAN OPERATOR Nurse 07/25/15 15:32 DIAGNOSIS Comment: PATIENT EDUCATION INFORMATION Instructions: CHEST WALL PAIN, Costochondritis Follow up: With: Address: When: SOFIE VÁZQUEZ [address] [place] [phone] Business (1) Within As Needed Comments: rest [...] pain Follow in clinic as needed Source: [facility] POWERCHART Document Id: [id number] Kylee Woodard R.N. - 07/25/2015 3:59 PM CDT ED Discharge Instructions [address] [place] [address] Name: SILVIA BLANCHARD Date of : 1985 12:00 AM Visit Date: 07/25/2015 3:01 PM [facility] Number: [id number] Address: [address] [place] [phone] Primary Care Provider: SOFIE VÁZQUEZ MD IMPORTANT: [facility] in [place] would like to thank you for allowing us to assist youwith your healthcare needs. The following includes patient education materials and information regarding your injury/illness. Diagnosis: Follow-Up Instructions: With: Address: When: SOFIE VÁZQUEZ [address] [place] [phone] Business (1) Within As Needed Comments: rest [...] Appointments: Date Time Location Provider 07/26/2015 08:15 [facility] Family [facility] Leidy HOWARD, Bacilio Escalona Patient Education Materials: [...] as directed by your healthcare provider ?? [phone] Lennie Swain, [address] [place] [address], [place] [address]. All rights reserved. This information is not [...] if you dont have one. Go to [email or web address] and click on Create Your Account. Then, follow the directions to complete the online form. Youll be asked for your [facility] number which you can find at [...] document has images extracted. Please consider using [employer] for all your patient education needs. [facility] Document Id: [id number] documented in this encounter ED Notes Kylee [...] WOODARD RN - 07/25/2015 15:58 CDT Source: [employer] Document Id: [id number] CDT!11 Kylee Woodard R.N. - 07/25/2015 3:57 [...] WOODARD RN - 07/25/2015 15:57 CDT Source: [facility] [employer] Document Id: [id number] CDT!8 Lane Shi M.D. - 07/25/2015 3:38 [...] Stable. Disposition: Discharged: to home. 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 Machine Operator Pharmacy: traMADol 50 mg oral tablet (Prescribe): [...] SHI MD On: 07/25/2015 05:29 PM Source: [facility] POWERCHART Document Id: [id number]} Kylee Woodard RDevendra - 07/25/2015 3:08 PM [...] Code: NKP ; Last Updated: 05/15/2013 16:30 CLAMP FORKLIFT OPERATOR; Life Cycle Date: 05/15/2013 ; Life Cycle Status: Active ; Vocabulary: Cerner Diagnoses(Active) Chest pain - Pleuritic Date: 07/25/2015 ; Diagnosis Type: Reason For Visit ; Confirmation: Complaintof ; Clinical Dx: Chest pain - Pleuritic ; Classification: Medical ; Clinical Service: Emergency medicine ; Code: PNED ; Probability: 0 ; Diagnosis Code: [id number] Triage Vital Signs Assessed : Yes Are you ? : No Status : Patient denies KYLEE WOODARD RN - 07/25/2015 15:41 CDT Mode of Arrival ED : Private vehicle, Wheelchair Track : Medical Languages : Danish Treatments Prior to Arrival : None Is [...] ED/ Tracking Acuity : 3 -Urgent KYLEE OWODARD YANELI - 07/25/2015 15:28 CDT Respiratory Airway [...] WOODARD RN - 07/25/2015 15:28 CDT Source: [facility] [employer]CHART Document Id: [id number] CDT!14 Sangita Allen R.N. - 07/25/2015 3:07 [...] Code: NKP ; Last Updated: 05/15/2013 16:30 CLAMP FORKLIFT OPERATOR; Life Cycle Date: 05/15/2013 ; Life Cycle Status: Active ; Vocabulary: Cerner Diagnoses(Active) Chest pain - Pleuritic Date: 07/25/2015 ; Diagnosis Type: Reason For Visit ; Confirmation: Complaintof ; Clinical Dx: Chest pain - Pleuritic ; Classification: Medical ; Clinical Service: Emergency medicine ; Code: PNED ; Probability: 0 ; Diagnosis Code: [id number] Triage Chief Complaint Description : midsternal chest pain. pt stated it hurts to take a deep breath. sx started 6 days ago. Information Given By : Patient Present in Room During Exam/Procedure : Alone Mode of Arrival ED : Private vehicle, Wheelchair Track : Medical Languages : Danish Patient Informed of Triage Location : Emergency [...] Acuity : 3 -Urgent Tracking Group : [facility] ED/ SANGITA ALLEN RN - 07/25/2015 15:07 CDT Source: [employer] Document Id: [id number] CDT!26 documented in this encounter Miscellaneous Notes Miscellaneous - Conversion, Historical Provider Ser - 07/25/2015 3:59 PM CDT Coding Summary-Paper Based CODING DATE: 08/01/2015 FINAL [facility] STATUS: * Discharged [...] MAGANA Date Saved: 08/01/2015 08:58 am Source: [employer] Document Id: [id number] Miscellaneous - Kylee Woodard R.N. - 07/25/2015 3:58 PM CDT Valuables/Belongings Valuables/Belongings Entered On: 07/25/2015 15:58 CDT Performed On: 07/25/2015 15:58 CDT by KYLEE WOODARD RN Valuables/Belongings Comment : pt declined offer of Toradol in ER KYLEE WOODARD RN - 07/25/2015 15:58 CDT Source: [facility] [employer] Document Id: [id number] CDT!3 documented in this encounter Plan of Treatment Not on filedocumented as of this encounter Visit Diagnoses Not on filedocumented in this encounter
--- OUTSIDE RECORDS SUMMARY | 2022-02-12 14:29 | XMS_ITS | Encounter Summary ---
:1985 Author Organization [facility] Address [address] [place] [address] Care Team Providers Name Role Phone Unavailable Primary Care Provider Unavailable Encounter Details Date Type Department Care Team Description 05/11/2016 Hospital Encounter HX [facility] Griffin Ann M.D. [address] [place], [place] [phone] (Wo rk) Social History Tobacco Use Types Packs/Day Years Used Date Smoking Tobacco: Every Day Sex Assigned at Date Recorded Not on file documented as of this encounter Last Filed Vital Signs Vital Sign Reading Time Taken Comments Blood Pressure 126/79 05/11/2016 12:53 AM DOOR INSTALLER Pulse 98 05/11/2016 12:53 AM DOOR INSTALLER Temperature - - Respiratory Rate 30 05/11/2016 12:53 AM DOOR INSTALLER Oxygen Saturation - - Inhaled Oxygen Concentration - - Weight - - Height - - Body Mass Index - - documented in this encounter Discharge Summaries Devi Raza R.N. - 05/11/2016 2:41 AM CST ED Discharge Instructions [facility] [address] [place] [address] Name: SILVIA VASQUEZ Date of : 1985 12:00 AM Visit Date: 05/11/2016 12:51 AM [facility] Number: [id number] Address: [address] [place] [phone] Primary Care Provider: SOFIE VÁZQUEZ MD IMPORTANT: [facility] in [place] would like to thank you for allowing us to assist youwith your healthcare needs. The following includes patient education materials and information regarding your injury/illness. Diagnosis: Panic Disorder Without Agoraphobia Follow-Up Instructions: With: Address: When: Return to Emergency Department Within As Needed Comments: If symptoms worsen.at anytime With: Address: When: SOFIE VÁZQUEZ [address] [place] [address] [phone] Business (1) Within As Needed Your Upcoming [...] Severe headache ?? Weakness or fainting ?? [phone] [facility], [address] [place] [address], [place] [address]. All rights reserved. This information is not [...] your symptoms to the point of feeling now-lk-[id number] ?? A change in the type of [...] pain or redness in one leg ?? [phone] [facility], [address] [place] [address]. All rights reserved. This information is not [...] you dont have one. Go to [email or web address] and click on Create Your Account. Then, follow the directions to complete the online form. Youll be asked for your [facility] number which you can find at [...] Date Time Provider Signature Date Time Source: [facility] GTxCHART Document Id: [id number] INSTALLER Devi Raza R.N. - 05/11/2016 2:41 AM CST ED Depart Summary [facility] Emergency Department / Urgent Care Clinical Discharge Summary PERSON INFORMATION Name SILVIA VASQUEZ Age 30 Years 1985 12:00 AM Sex Female Language Bahamian PCP SOFIE VÁZQUEZ MD Marital Status Visit Id Visit Reason Anxiety reaction; sob Specialty Enc Type Emergency Med Service Emergency Medicine Referred by Track Group [facility] ED/UC Discharge 05/11/2016 2:00 AM Tracking Id [id number] Checkout 05/11/2016 2:00 AM Checkin 05/11/2016 12:51 AM Acuity 3 -Urgent Dispo Type * Discharged to Home or Self Care Arrival 05/11/2016 12:51 AM Reg Status Complete LOS 000 01:09 Address: [address] [place] [phone] Comment: PROVIDER INFORMATION Provider Role Provider Contact Time DEVI RAZA WOOL WASHER Nurse 05/11/16 01:11 BLANCHE DAVILA MD ED Provider 05/11/16 01:52 DIAGNOSIS Panic Disorder Without Agoraphobia Comment: PATIENT EDUCATION INFORMATION Instructions: HYPERVENTILATION SYNDROME; PANIC ATTACK Follow up: With: Address: When: Return to Emergency Department Within As Needed Comments: If symptoms worsen.at anytime With: Address: When: SOFIE VÁZQUEZ [address] [place] [address] [phone] Business (1) Within As Needed Source: [facility] GTxCHART Document Id: [id number] INSTALLER documented in this encounter ED Notes Blanche Davila M.D. - 05/11/2016 4:09 AM CST Anxiety reaction Patient: SILVIA VASQUEZ Age: 30 years Sex: Female : 1985 Author: BLANCHE DAVILA MD Attachments: None Basic Information Additional information: Chief Complaint from Nursing Triage Note : Chief Complaint Description 05/11/2016 1:00 DOOR INSTALLER Chief Complaint Description Pt arrives via ems [...] 12/31/1997 CDT. Polio: Dose #1 () 1985 DOOR INSTALLER, Dose #2 () 1985 CDT, Dose #3 () 11/17/1988 CDT. influenza virus vaccine: Ad hoc dose () 03/01/2009 CDT. tetanus/diphth/pertuss (Tdap) adult/adol: Ad hoc dose (Tdapadult) 11/01/2013 CDT. MMR: Dose #1 () 11/17/1988 CDT, Dose #2 () 01/08/1999 CDT. DTaP: Dose #1 () 1985 DOOR INSTALLER, Dose #2 () 1985 CDT, Dose #3 () 1985 CDT, Dose #4 () 11/17/1988 CDT. Hib: Dose #1 () 01/13/1989 CDT. influenza virus vaccine, H1N1, live: Ad hoc dose () 03/01/2009 CDT. Future No future immunizations have been selected or recorded. . Menstrual history: Per nurse's notes. Past Medical/ Family/ Social History Surgical history: Esophagogastroduodenoscopy ([id number]) on 08/12/2015 at 30 Years. Upper GI endoscopy ([id number]) on 08/12/2015 at 30 Years. Other Manually [...] PowerChart. Cytopathology, slides, cervical or vaginal (the [place] System); manual screening under physician supervision.. ([id number]) in the week of 03/10/2004 at 18 Years. Comments: 04/18/2010 21:45 - CARMEN MORALES Hx: [id number] - LAB-CYTOPATH, SM,D/V,TDS<3SM TECH 03/21/2013 17:41 - Contributor source changed to PowerChart.. Family history: Not significant. Social history: Reviewed as documented in chart. Problem list: All Problems (Selected) Disease Gastroesophageal Reflux (GERD ERMELINDA) / K21.9 / Confirmed. Physical Examination Vital Signs: Vital Signs 05/11/2016 0:53 DOOR INSTALLER Temperature Core 36.8 DegC Peripheral Pulse Rate [...] nurses' notes. Results review:All Results 05/11/2016 2:41 DOOR INSTALLER ED Discharge Instructions ED Discharge Instructions 05/11/2016 2:41 DOOR INSTALLER ED Depart Summary ED Depart Summary 05/11/2016 2:00 DOOR INSTALLER Valuables/Belongings - Text ED Disposition Summary - Text ED Treatments and Procedures - Text ED Pain Assessment - Text 05/11/2016 1:57 DOOR INSTALLER School or Work Excuse Letter 05/11/2016 1:00 DOOR INSTALLER ED Primary Assessment - Text 05/11/2016 2:00 DOOR INSTALLER Pain Symptoms No Peripheral IV #1 Activity [...] Form Valuables/Belongings Form Valuables/Belongings Form 05/11/2016 1:35 DOOR INSTALLER Drug Scrn Comment See Comment U Tricyclic Scr Negative U THC Scrn Positive U Oxycodone Scrn Negative U Opiate Scrn Negative U Methamp Scr Negative U Methadone Negative U Cocaine Scrn Negative U Benzodia Scrn Negative U Barbit Scrn Negative U Amphet Scrn Positive U Phencyclidine Negative U Propoxyphene Scrn Negative U Buprenorphine Scrn Negative 05/11/2016 1:20 DOOR INSTALLER LORazepam 0.5 mg mg 05/11/2016 1:00 DOOR INSTALLER Pain Symptoms No Distress None Heart Rhythm [...] Adequate Tracking Acuity 3 -Urgent Tracking Group [facility] ED/ Standard Safety Bed in [...] of Arrival ED Ambulance Track Medical Languages Bahamian Treatments Prior to Arrival None Is Patient Female and 13-50 no hysterect Yes Behavioral Health Screen/Safety Assmt No Respiratory Detailed Assessment Yes Tobacco Type Cigarettes: Less than 20 per day ED Primary Assessment Form ED Primary Assessment Form 05/11/2016 0:53 DOOR INSTALLER Temperature Core 36.8 DegC Peripheral Pulse Rate 98 /min Respiratory Rate 30 /min HI SpO2 94 % Systolic Blood Pressure 126 mmHg Diastolic Blood Pressure 79 mmHg BP Location Right upper Oxygen Therapy Room air Vital Signs Form Vital Signs Form 05/11/2016 0:52 DOOR INSTALLER Is Patient Female and 13-50 no hysterect [...] DAVILA MD On: 05/11/2016 04:16 AM Source: [facility] POWERCHART Document Id: [id number]} INSTALLER Devi Raza REmekaN. - 05/11/2016 2:00 AM CST ED Treatments and Procedures ED Treatments and Procedures Entered On: 05/11/2016 2:40 DOOR INSTALLER Performed On: 05/11/2016 2:00 DOOR INSTALLER by DEVI RAZA RN Peripheral IV Peripheral IV Assess/Intervention Grid Peripheral IV #1 IV Activity : Discontinue Removal : Catheter intact, Hemostasis within expected timeframe Date of Insertion : 05/11/2016 DOOR INSTALLER Discontinued Date : 05/11/2016 DOOR INSTALLER IV Site : Antecubital Laterality : Left Catheter Size : 20 Catheter Type : Over the needle DEVI RAZA RN - 05/11/2016 2:39 DOOR INSTALLER Source: [facility] GTxCHART Document Id: [id number] DOOR INSTALLER!12 INSTALLER Devi Raza R.N. - 05/11/2016 2:00 AM CST ED Disposition Summary ED Disposition Summary Entered On: 05/11/2016 2:40 DOOR INSTALLER Performed On: 05/11/2016 2:00 DOOR INSTALLER by DEVI RAZA RN ED Disposition Summary Present in Room During Exam/Procedure : Spouse Mode of Discharge : Ambulatory Transportation : Private vehicle Discharge From ED With : Home Med List Printed Discharge Instructions Given to Patient : Yes Patient Status at Discharge from ED : Improved DEVI RAZA RN - 05/11/2016 2:40 DOOR INSTALLER [facility] Document Id: [id number] DOOR INSTALLER!8 INSTALLER Devi Raza R.N. - 05/11/2016 2:00 AM CST ED Pain Assessment ED Pain Assessment Entered On: 05/11/2016 2:40 DOOR INSTALLER Performed On: 05/11/2016 2:00 DOOR INSTALLER by DEVI RAZA RN Pain Assessment Pain Symptoms : No DEVI RAZA RN - 05/11/2016 2:40 DOOR INSTALLER Source: [facility] [employer] Document Id: [id number] DOOR INSTALLER!3 INSTALLER Devi Raza R.N. - 05/11/2016 1:00 AM CST ED Primary Assessment Document Has Been Updated ED Primary Assessment Entered On: 05/11/2016 1:43 DOOR INSTALLER Performed On: 05/11/2016 1:00 DOOR INSTALLER by DEVI RAZA RN Reason For Visit (As Of: 05/11/2016 01:43:31 DOOR INSTALLER) Problems(Active) Disease Gastroesophageal Reflux (GERD ERMELINDA) (ICD-10-CM [...] PNED ; Probability: 0 ; Diagnosis Code: [id number] Triage Chief Complaint Description : Pt arrives via ems hyperventilating. Pt has drank this evening. She has a hx of anxiety but states it only happens when she is drinking. Mode of Arrival ED : Ambulance Track : Medical Languages : Bahamian Treatments Prior to Arrival : None Are you ? : No Is Patient Female and 13-50 no hysterectomy : Yes Status : Patient denies DEVI RAZA RN - 05/11/2016 1:33 DOOR INSTALLER Pain Assessment Pain Symptoms : No DEVI RAZA RN - 05/11/2016 1:33 DOOR INSTALLER DENNY DCP GENERIC CODE Tracking Acuity : 3 -Urgent Tracking Group : [facility] ED/ DEVI RAZA RN - 05/11/2016 1:33 DOOR INSTALLER Respiratory Airway : Patent Respirations : Gasping, Labored, Tachypnea Respiratory Pattern : Regular Respiratory Detailed Assessment : Yes DEVI RAZA RN - 05/11/2016 1:33 DOOR INSTALLER Resp Detailed Respiratory Patient Stated Symptoms : Shortness of breath Distress : None DEVI RAZA RN - 05/11/2016 1:33 DOOR INSTALLER Breath Sounds Assessment Grid BRIGIDO : Clear RUL : Clear RML : Clear LLL : Clear RLL : Clear DEVI RAZA RN - 05/11/2016 1:33 DOOR INSTALLER Respiratory Note : pt is hyperventilating, a non rebreather mask not connected to oxygen is being used at this time. Pt states she is sob DEVI RAZA RN - 05/11/2016 1:33 DOOR INSTALLER Cardiovascular Heart Rhythm : Regular Skin Color : Normal for ethnicity Skin Description : Dry Skin Temperature : Warm DEVI RAZA RN - 05/11/2016 1:33 DOOR INSTALLER Neurological Last Well Time Known : Not applicable Level of Consciousness : Alert Orientation : Oriented x 3 Characteristics of Speech : Clear Neuro Patient Stated Symptoms : Dizziness, Tingling DEVI RAZA RN - 05/11/2016 1:33 DOOR INSTALLER ED Psychosocial Affect/Behavior : Anxious Domestic Abuse Concerns : None Behavioral Health Screen/Safety Assmt : No DEVI RAZA RN - 05/11/2016 1:33 DOOR INSTALLER Gastrointestinal Nutrition ED : Adequate DEVI RAZA RN - 05/11/2016 1:33 DOOR INSTALLER Musculoskeletal Fall Prevention Education Provided : Yes Standard Safety : Bed in low position, Call device within reach, ID band check, Wheels locked, Other: at bedside DEVI RAZA RN - 05/11/2016 1:33 DOOR INSTALLER Social Habits Exposure to Tobacco Smoke : Patient smokes, Other: occ alcohol Smoking Status : Current every day smoker Tobacco 2A : Yes Tobacco Use/Currently Using : Yes Tobacco Use/Last 30 Days : Yes Tobacco Use/Last 12 months : Yes Type : Cigarettes: Less than 20 per day Tobacco Use/Advised to Quit : No DEVI RAZA RN - 05/11/2016 1:33 DOOR INSTALLER Alcohol Use Grid Alcohol Use : Yes Frequency : Occasionally DEVI RAZA RN - 05/11/2016 1:33 DOOR INSTALLER Recreational Drug Use Grid Drug Use : Current Type : Alcohol Route : Oral Frequency : Other: TWICE A MONTH DEVI RAZA RN - 05/11/2016 1:33 DOOR INSTALLER Peripheral IV Peripheral IV Assess/Intervention Grid Peripheral IV #1 IV Activity : Start Number of Attempts : 1 Date of Insertion : 05/11/2016 DOOR INSTALLER IV Site : Antecubital Laterality : Left Catheter Size : 20 Catheter Type : Over the needle DEVI RAZA RN - 05/11/2016 1:33 DOOR INSTALLER Source: [facility] POWERCHART Document Id: [id number] DOOR INSTALLER!80 INSTALLER documented in this encounter Miscellaneous Notes Miscellaneous - Conversion, Historical Provider Ser - 05/11/2016 2:00 AM DOOR INSTALLER Coding Summary-Paper Based CODING DATE: 05/23/2016 FINAL [facility] STATUS: * Discharged to Home or [...] GONZALEZ Date Saved: 05/23/2016 11:15 am Source: [facility] [employer] Document Id: [id number] Olga - Devi Raza REmekaN. - 05/11/2016 2:00 AM CST Valuables/Belongings Valuables/Belongings Entered On: 05/11/2016 2:40 DOOR INSTALLER Performed On: 05/11/2016 2:00 DOOR INSTALLER by DEVI RAZA RN Valuables/Belongings Belongings Sent Home With : pt DEVI RAZA RN - 05/11/2016 2:40 DOOR INSTALLER Source: [facility] [employer] Document Id: [id number] DOOR INSTALLER!3 INSTALLER Olga - Devi Raza R.N. - 05/11/2016 1:57 AM CST Work Excuse May 11, 2016 SILVIA VASQUEZ [address] [place] [phone] Dear SILVIA VASQUEZ, You were examined in [...] 2016 This document has images extracted. Source: [facility] GTxCHART Document Id: [id number] Electronically signed by [facility] Packing Line Worker [id number] at 10/12/2016 9:55 PM CDT documented in this encounter Plan of Treatment Not on filedocumented as of this encounter Procedures Procedure Name Priority Date/Time Associated Diagnosis Comme nts DRUG SCREEN URINE Routine 05/11/2016 1:35 AM Resu lts for this DOOR INSTALLER procedure are i n the results section. documented in this encounter Results Drug Screen Urine (05/11/2016 1:35 AM DOOR INSTALLER) [facility] Method Time Signature Carboxy-THC Positive POWERCHART [...] / Volume Laterality Urine 05/11/2016 1:35 AM DOOR INSTALLER Blanche Davila M.D. LAB URINE ORDERABLES Performing Organization Address City/State/ZIP Code Phon e Number POWERCHART documented in this encounter Visit Diagnoses Not on filedocumented in this encounter
--- OUTSIDE RECORDS SUMMARY | 2022-02-12 14:29 | XMS_ITS | Encounter Summary ---
:1985 Author Organization [facility] Address [address] [place] [address] Care Team Providers Name Role Phone Unavailable Primary Care Provider Unavailable Encounter Details Date Type Department Care Team Description 02/13/2016 Hospital Encounter HX [facility] Oleg Gunter III, P.A.-C., M.S. [...] 02/13/2016 4:47 PM CDT ED Depart Summary [facility] Emergency Department / Urgent Care Clinical Discharge Summary PERSON INFORMATION Name SILVIA BLANCHARD Age 30 Years 1985 12:00 AM Sex Female Language Thai PCP SOFIE VÁZQUEZ MD Marital Status N [id number] Visit Id Visit Reason Syncope/Near syncope; dizzy Specialty Enc Type Emergency Med Service Emergency Medicine Referred by [facility] ED/UC Discharge 02/13/2016 4:44 PM Tracking Id [id number] Checkout 02/13/2016 4:44 PM Checkin 02/13/2016 1:58 PM Acuity 3 -Urgent Dispo Type * Discharged to Home or Self Care Arrival 02/13/2016 1:58 PM Reg Status Complete LOS 000 02:46 Address: [address] [place] [phone] Comment: PROVIDER INFORMATION Provider Role Provider Contact Time BRISEYDA PUENTE PREDICTIVE MAINTENANCE SPECIALIST Nurse 02/13/16 14:18 OLEG BORJAS PA-C ED Provider 02/13/16 14:34 BRANDIE SUH PREDICTIVE MAINTENANCE SPECIALIST Nurse 02/13/16 15:14 DIAGNOSIS Syncope And Near Syncope Comment: PATIENT EDUCATION INFORMATION Instructions: NEAR SYNCOPE, Unknown Follow up: With: Address: When: Follow Up with Primary Care Within 2 - 4 days Comments: for follow up ER visit With: Address: When: SOFIE VÁZQUEZ [address] [place] [address] [phone] Business (1) Within 2 - 4 days Source: [employer] Document Id: [id number] Brandie Suh R.N. - 02/13/2016 4:47 PM CDT ED Discharge Instructions [facility] [address] [place] [address] Name: SILVIA BLANCHARD Date of : 1985 12:00 AM Visit Date: 02/13/2016 1:58 PM [facility] Number: [id number] Address: [address] [place] [phone] Primary Care Provider: SOFIE VÁZQUEZ MD IMPORTANT: [facility] in [place] would like to thank you for allowing us to assist youwith your healthcare needs. The following includes patient education materials and information regarding your injury/illness. Diagnosis: Syncope And Near Syncope Follow-Up Instructions: With: Address: When: Follow Up with Primary Care Within 2 - 4 days Comments: for follow up ER visit With: Address: When: SOFIE VÁZQUEZ [address] [place] [address] [phone] Business (1) Within 2 - 4 days Your Upcoming Appointments: Date Time Location Provider 02/19/2016 14:00 [facility] Yang MD, Sofie Patient Education Materials: Near-Fainting:Uncertain [...] -- (In women) unexpected vaginal bleeding ?? [id number] Lennie Swain, [address] [place] [address], [place] [address]. All rights reserved. This information is not [...] Date Time Provider Signature Date Time Source: [employer] POWERCHART Document Id: [id number] documented in this encounter ED Notes Brandie [...] SUH RN - 02/13/2016 16:46 CDT Source: [employer] Document Id: [id number] CDT!7 Brandie Suh R.N. - 02/13/2016 4:46 PM CDT ED Pain Assessment ED Pain Assessment Entered On: 02/13/2016 16:46 CDT Performed On: 02/13/2016 16:46 CDT by BRANDIE SUH RN Pain Assessment Pain Symptoms : No BRANDIE SUH RN - 02/13/2016 16:46 CDT Source: [employer] Document Id: [id number] CDT!3 Brandie Suh R.N. - 02/13/2016 4:30 PM CDT ED Nurse Reassess ED Nurse Reassess Entered On: 02/13/2016 16:45 CDT Performed On: 02/13/2016 16:30 CDT by BRANDIE SUH RN Pain Assessment Pain Symptoms : No BRANDIE SUH RN - 02/13/2016 16:45 CDT Source: [employer] Document Id: [id number] CDT!3 Brandie Suh R.N. - 02/13/2016 3:28 PM CDT ED Nurse Reassess ED Nurse Reassess Entered On: 02/13/2016 15:28 CDT Performed On: 02/13/2016 15:28 CDT by BRANDIE SUH RN Pain Assessment Pain Symptoms : No BRANDIE SUH RN - 02/13/2016 15:28 CDT Source: [employer] Document Id: [id number] CDT!3 Franca Brito R.N. - 02/13/2016 2:58 [...] BRITO RN - 02/13/2016 14:58 CDT Source: [employer] Document Id: [id number] CDT!13 Oleg Borjas III - 02/13/2016 2:40 [...] 12/31/1997 CDT. Polio: Dose #1 () 1985 [employer] [place], Dose #2 () 1985 CDT, Dose #3 () 11/17/1988 CDT. influenza virus vaccine: Ad hoc dose () 03/01/2009 CDT. tetanus/diphth/pertuss (Tdap) adult/adol: Ad hoc dose (Tdapadult) 11/01/2013 CDT. MMR: Dose #1 () 11/17/1988 CDT, Dose #2 () 01/08/1999 CDT. DTaP: Dose #1 () 1985 [employer] [place], Dose #2 () 1985 CDT, Dose #3 () 1985 CDT, Dose #4 () 11/17/1988 CDT. Hib: Dose #1 () 01/13/1989 CDT. influenza virus vaccine, H1N1, live: Ad hoc dose () 03/01/2009 CDT. Future No future immunizations have been selected or recorded. . history: not currently . Past Medical/ Family/ Social History Surgical history: Esophagogastroduodenoscopy ([id number]) on 08/12/2015 at 30 Years. Upper GI endoscopy ([id number]) on 08/12/2015 at 30 Years. Other Manually [...] PowerChart. Cytopathology, slides, cervical or vaginal (the [facility] System); manual screening under physician supervision.. ([id number]) in the week of 03/10/2004 at 18 Years. Comments: 04/18/2010 21:45 - CARMEN MORALES Hx: [id number] - LAB-CYTOPATH, SM,D/V,TDS<3SM TECH 03/21/2013 17:41 - [...] Absolute 3.87 10(9)/L Lymph Absolute 1.39 x10(9)/L [place] Absolute 0.51 x10(9)/L Eos Absolute 0.21 x10(9)/L [...] 07:22 PM Co-Signed By: CAL BARRETT Source: [facility] POWERCHART Document Id: [id number]} Briseyda Puente REmekaNEmeka - 02/13/2016 2:25 PM [...] Medical ; Code: K21.9 ; Contributor System: VoltDB ; Last Updated: 08/12/2015 10:33 CDT ; Life Cycle Status: Active ; Responsible Provider: CHEO KHAN MD; Vocabulary: ICD-10-CM Diagnoses(Active) Syncope/Near syncope Date: 02/13/2016 ; Diagnosis Type: Reason For Visit ; Confirmation: Complaint of ; Clinical Dx: Syncope/Near syncope ; Classification: Medical ; Clinical Service: Emergency medicine ; Code: PNED ; Probability: 0 ; Diagnosis Code: [id number] Triage Chief Complaint Description : Pt to [...] vehicle Track : Medical Languages : Thai Vital Signs Assessed : Yes Treatments Prior [...] Acuity : 3 -Urgent Tracking Group : [facility] ED/ BRISEYDA PUENTE RN - [...] PUENTE YANELI - 02/13/2016 14:25 CDT Source: [employer] Document Id: [id number] CDT!82 Dayan Mccoy R.N. - 02/13/2016 2:00 [...] Medical ; Code: K21.9 ; Contributor System: MicroblrChart ; Last Updated: 08/12/2015 10:33 CDT ; Life Cycle Status: Active ; Responsible Provider: CHEO KHAN MD; Vocabulary: ICD-10-CM Diagnoses(Active) Syncope/Near syncope Date: 02/13/2016 ; Diagnosis Type: Reason For Visit ; Confirmation: Complaint of ; Clinical Dx: Syncope/Near syncope ; Classification: Medical ; Clinical Service: Emergency medicine ; Code: PNED ; Probability: 0 ; Diagnosis Code: [id number] Triage Chief Complaint Description : Pt states she has had intermitant diziiness x 1 month and yesterday states things went black, I fell on my and I felt jerking movements. Information Given By : Patient Present in Room During Exam/Procedure : Alone Mode of Arrival ED : Private vehicle Track : Medical Languages : Thai Treatments Prior to Arrival : None Are you ? : No Is Patient Female and 13-50 no hysterectomy : Yes Status : Patient denies DAYAN MCCOY RN - 02/13/2016 14:00 CDT Pain Assessment Pain Symptoms : No DAYAN MCCOY RN - 02/13/2016 14:00 CDT DENNY DCP GENERIC CODE Tracking Acuity : 3 -Urgent Tracking Group : [facility] ED/ DAYAN MCCOY RN - 02/13/2016 14:00 CDT Source: [employer] Document Id: [id number] CDT!18 documented in this encounter Miscellaneous Notes Telephone Encounter - Sivan Allred R.N. - 02/14/2016 2:08 PM CDT Follow Up with Primary Care Document Contains Addenda Addendum by CARLOS A GARCIA RN on February 16, 2016 09:09:55 CDT No answer, unable to leave message, no name Addendum by CARLO SA GARCIA RN on February 15, 2016 13:21:17 CDT No answer, unable to leave message, no name Entered by SIVAN ALLRED RN on February 14, 2016 14:08:24 CDT No answer, unable to leave message, no name Follow Up Request: Follow Up with Primary Care Date Requested: February 13, 2016 16:34:07 CDT Ed Location: [facility] ED ED Attending: OLEG BORJAS [...] Comments: for follow up ER visit [facility] Document Id: [id number] Miscellaneous - Brandie Suh R.N. - 02/13/2016 4:46 PM CDT Valuables/Belongings Valuables/Belongings Entered On: 02/13/2016 16:46 CDT Performed On: 02/13/2016 16:46 CDT by BRANDIE SUH RN Valuables/Belongings Belongings Sent Home With : All belonging taken home with patient. BRANDIE SUH RN - 02/13/2016 16:46 CDT Source: [facility] [employer] Document Id: [id number] CDT!3 Miscellaneous - Conversion, Historical Provider Ser - 02/13/2016 4:44 PM CDT Coding Summary-Paper Based CODING DATE: 02/20/2016 FINAL [facility] STATUS: * Discharged to Home [...] ACEVES Date Saved: 02/20/2016 07:57 am Source[facility] Document Id: [id number] documented in this encounter Plan of Treatment [...] culture if indicated (02/13/2016 4:04 PM CDT) [facility] [employer] Method Time Signature HXUr Color Yellow Colorless [...] POWERCHART Leukocyte Esterase Negative Negative POWERCHART Specific [place], POCT, U 1.005 SMOOTH RCHART HXUR WBC. [...] M.S. LAB URINE ORDERABLES Performing Organization Address City/[facility]/ZIP Code Phon e Number POWERCHART Test, Qualitative, Urine (02/13/2016 4:04 PM CDT) [employer] Method Time Signature HXBeta-hCG Negative Negative POWERCHART [...] Vianney Kurtz R.N. [facility]E [facility] Automated Differential (02/13/2016 3:38 PM CDT) [...] X109L Erythrocytes 4.25 3.90 - 5.03 POWERCHART Z8288Q Hemoglobin 13.1 12.0 - 15.5 POWERCHART GDL [...] ed reference range. HXeGFR (MDRD) >60 >=60 [id number] POWERCHART eGFR Black/ >60 >=60 [id number] POWERCHART Glucose 108 70 - 139 MGDL [...] / Volume Laterality 02/13/2016 2:29 PM CDT [facility] - 02/13/2016 2:29 PM CDT [...] ECG ORDERABLES Performing Organization Address City/State/ZIP Code [facility] e Number [facility] [address] [place] [id number] documented in this encounter Visit Diagnoses Not on filedocumented in this encounter
--- OUTSIDE RECORDS SUMMARY | 2022-02-12 14:29 | XMS_ITS | Encounter Summary ---
:1985 Author Organization [facility] Address [address] [place] [id number] Care Team Providers Name Role Phone Unavailable Primary Care Provider Unavailable Encounter Details Date Type Department Care Team Description 03/29/2016 Hospital Encounter HX [facility] Natalya Lipscomb M .D. Social History Tobacco Use Types Packs/Day Years Used Date Smoking Tobacco: Never Assessed Sex Assigned at Date Recorded Not on file documented as of this encounter Last Filed Vital Signs Vital Sign Reading Time Taken Comments Blood Pressure 103/62 03/29/2016 3:17 PM [employer] Pulse 111 03/29/2016 1:24 PM [employer] Temperature - - Respiratory Rate 16 03/29/2016 3:17 PM [employer] Oxygen Saturation - - Inhaled Oxygen Concentration - - Weight - - Height 169 cm (5' 6.54) 03/29/2016 1:24 PM [employer] Body Mass Index - - documented in this encounter Discharge Summaries Dayan Mccoy R.N. - 03/29/2016 3:20 PM CST ED Discharge Instructions [facility] [address] [place] [address] Name: SILVIA BLANCHARD Date of : 1985 12:00 AM Visit Date: 03/29/2016 12:31 PM [facility] Number: [id number] Address: [address] [place] [phone] Primary Care Provider: SOFIE VÁZQUEZ MD IMPORTANT: [facility] [place] would like to thank you for allowing [...] Address: When: SOFIE VÁZQUEZ [address] [place] [address] [phone] Business (1) Within As Needed Your Upcoming [...] stop this may not be recommended. Certain [id number] medications can help soothe stomach upset. ?? [...] ?? Severe weakness, dizziness or lightheadedness ?? [id number] [facility], [address] [place] [address], [place] [address]. All rights reserved. This information is not [...] if you dont have one. Go to [email or web address] and click on Create Your Account. Then, follow the directions to complete the online form. Youll be asked for your [facility] number which you can find at [...] document has images extracted. Please consider using YelloYello for all your patient education needs. Source: [facility] Document Id: [id number] [employer] Dayan Mccoy R.N. - 03/29/2016 3:20 PM CST ED Depart Summary [facility] Emergency Department / Urgent Care Clinical Discharge Summary PERSON INFORMATION Name SILVIA BLANCHARD Age 30 Years 1985 12:00 AM Sex Female Language South Korean PCP SOFIE VÁZQUEZ MD Marital Status Visit Id Visit Reason Vomiting; vomitting diarrhea Specialty Enc Type Emergency Med Service Emergency Medicine Referred by Track Group [facility] ED/UC Discharge 03/29/2016 3:20 PM Tracking Id [id number] Checkout 03/29/2016 3:20 PM Checkin 03/29/2016 12:31 PM Acuity 3 -Urgent Dispo Type * Discharged to Home or Self Care Arrival 03/29/2016 12:31 PM Reg Status Complete LOS 000 02:49 Address: [address] [place] [phone] Comment: PROVIDER INFORMATION Provider Role Provider Contact Time DASHAWN YADAV CNP ED Provider 03/29/16 12:44 JANETT RAMIREZ LPN ED Nurse 03/29/16 12:44 YAMINI CERDA ELECTRONICS LEAD Nurse 03/29/16 13:02 NATALYA MOSCOSO ED Provider [...] Address: When: SOFIE VÁZQUEZ [address] [place] [address] [phone] Business (1) Within As Needed Source: [facility] POWERCHART Document Id: [id number] [employer] documented in this encounter H&P Notes Janett Ramirez L.PEmekaN. - 03/29/2016 12:46 PM CST Urgent Care Intake Urgent Care Intake Entered On: 03/29/2016 12:50 [employer] Performed On: 03/29/2016 12:46 [employer] by JANETT RAMIREZ LPN Intake Chief Complaint [...] inch(es)) JANETT RAMIREZ LPN - 03/29/2016 12:46 [employer] General Info Information Given By : Patient Languages : South Korean Is Patient Female and 13-50 no hysterectomy : Yes Status : Patient denies Are you ? : No ASHLEYJANETT Jess SANABRIA - 03/29/2016 12:46 [employer] Subjective Pain Symptoms : No SHAGUFTACHADDPetra JANETT Jess SANABRIA - 03/29/2016 12:46 [employer] Dependent Habits Exposure to Tobacco Smoke : Patient smokes, Other: occ alcohol Smoking Status : Current every day smoker Tobacco 2A : Yes Tobacco Use/Currently Using : Yes Tobacco Use/Last 30 Days : Yes Tobacco Use/Last 12 months : Yes Type : Cigarettes: Less than 20 per day Tobacco Use/Advised to Quit : Yes JANETT RAMIREZ LPN - 03/29/2016 12:46 [employer] Caffeine Use Grid Caffeine Use : None JANETT RAMIREZ LPN - 03/29/2016 12:46 [employer] Recreational Drug Use Grid Drug Use : Current Type : Alcohol Route : Oral Frequency : Other: TWICE A MONTH JANETT RAMIREZ LPN - 03/29/2016 12:46 [employer] Nutrition Nutrition Risk Factors by History Adult : None SHAGUFTACHADDPetra JANETT Jess SANABRIA - 03/29/2016 12:46 [employer] Functional Current Daily Living Assistance : None JANETT RAMIREZ LPN - 03/29/2016 12:46 [employer] Psychosocial Domestic Abuse Concerns : None Behavioral Health Screen/Safety Assmt : No Methodist Preference : No Methodist Affiliation JANETT RAMIREZ LPN - 03/29/2016 12:46 [employer] Advance Directive Advanced Directives : No Advance Directive Additional Information : No JANETT RAMIREZ LPN - 03/29/2016 12:46 [employer] Educ Needs Learning Style Preference Adult Grid Patient : None Family : Printed materials JANETT RAMIREZ LPN - 03/29/2016 12:46 [employer] Source: [facility] POWERCHART Document Id: [id number] [employer]!55 [employer] documented in this encounter Nursing Notes Neal [...] transferred to ED care per wheelchair. Source: [facility] [employer]house Document Id: [id number] [employer] documented in this encounter ED Notes Dayan Mccoy R.N. - 03/29/2016 3:20 PM CST ED Pain Assessment ED Pain Assessment Entered On: 03/29/2016 15:20 [employer] Performed On: 03/29/2016 15:20 [employer] by DAYAN MCCOY RN Pain Assessment Pain Symptoms : No DAYAN MCCOY RN - 03/29/2016 15:20 [employer] Source: [employer] Document Id: [id number] [employer]!3 [employer] Dayan Mccoy R.N. - 03/29/2016 3:19 PM CST ED Treatments and Procedures ED Treatments and Procedures Entered On: 03/29/2016 15:19 [employer] Performed On: 03/29/2016 15:19 [employer] by DAYAN MCCOY RN Peripheral IV Peripheral IV Assess/Intervention Grid Peripheral IV #1 IV Activity : Discontinue Removal : Catheter intact Date of Insertion : 03/29/2016 [employer] IV Site : Forearm Laterality : Left Catheter Size : 20 Catheter Type : Safety intima DAYAN MCCOY RN - 03/29/2016 15:19 [employer] Source: [facility] Document Id: [id number] [employer]!11 [employer] Dayan Mccoy R.N. - 03/29/2016 3:19 PM CST ED Disposition Summary ED Disposition Summary Entered On: 03/29/2016 15:20 [employer] Performed On: 03/29/2016 15:19 [employer] by DAYAN MCCOY RN ED Disposition Summary Present in Room During Exam/Procedure : Significant other Mode of Discharge : Ambulatory Transportation : Private vehicle Discharge From ED With : Home Med List Printed Discharge Instructions Given to Patient : Yes Patient Status at Discharge from ED : Improved DAYAN MCCOY RN - 03/29/2016 15:19 [employer] Source: [facility] [employer] Document Id: [id number] [employer]!8 [employer] Yamini Cerda R.N. - 03/29/2016 2:51 PM CST ED Nurse Reassess ED Nurse Reassess Entered On: 03/29/2016 14:52 [employer] Performed On: 03/29/2016 14:51 [employer] by YAMINI CERDA RN Pain Assessment Pain Symptoms : Yes YAMINI CERDA RN - 03/29/2016 14:51 [employer] Pain Scale Pain Scale Verbal 0-10 : Open YAMINI CERDA RN - 03/29/2016 14:51 [employer] Pain Pain Assessment Grid Pain 1 Location : Epigastric Intensity : 3 YAMINI CERDA RN - 03/29/2016 14:51 [employer] GI Reassess GI Patient Stated Symptoms : Diarrhea, Nausea, Vomiting GI Note : Pt states nausea is much better, no vomiting. Eating ice chips. Pt has been up to bathroomonce to void, no stool. IV fluid infusing. YAMINI CERDA RN - 03/29/2016 14:51 [employer] Source: [employer] Document Id: [id number] [employer]!13 [employer] Yamini Cerda R.N. - 03/29/2016 1:24 PM CST ED Primary Assessment Document Has Been Updated ED Primary Assessment Entered On: 03/29/2016 13:31 [employer] Performed On: 03/29/2016 13:24 [employer] by YAMINI CERDA RN Reason For Visit (As Of: 03/29/2016 13:31:17 [employer]) Problems(Active) Disease Gastroesophageal Reflux (GERD ERMELINDA) (ICD-10-CM :K21.9 ) Name of Problem: Disease Gastroesophageal Reflux (GERD ERMELINDA) ; Recorder: CHEO KHAN MD; Confirmation: Confirmed ; Classification: Medical ; Code: K21.9 ; Contributor System: NewsBasis ; Last Updated: 08/12/2015 10:33 CDT ; Life Cycle Status: Active ; Responsible Provider: CHEO KHAN MD; Vocabulary: ICD-10-CM Diagnoses(Active) Vomiting Date: 03/29/2016 ; Diagnosis Type: Reason For Visit ; Confirmation: Complaint of ; ClinicalDx: Vomiting ; Classification: Medical ; Clinical Service: Emergency medicine ; Code: PNED ; Probability: 0 ; Diagnosis Code: [id number] Triage Chief Complaint Description : Pt comes from for further evaluation on nausea, vomiting and diarrhea that started about 0430 this morning. Pt states she is vomiting and having diarrhea about every 30minutes. Unable to keep anything down. Pt was in UC and became dizzy and felt like (Comment: she was going to pass out. [YAMINI CERDA RN - 03/29/2016 13:24 [employer]] ) Information Given By : Patient Present in Room During Exam/Procedure : Alone Mode of Arrival ED : Private vehicle Track : Medical Languages : South Korean Patient Informed of Triage Location : Emergency department Vital Signs Assessed : Yes Treatments Prior to Arrival : None Are you ? : No Is Patient Female and 13-50 no hysterectomy : Yes Status : Patient denies YAMINI CERDA RN - 03/29/2016 13:24 [employer] Vital Signs Temperature Core : 36.2 DegC(Converted [...] inch(es)) YAMINI CERDA RN - 03/29/2016 13:24 [employer] Pain Assessment Pain Symptoms : Yes YAMINI CERDA RN - 03/29/2016 13:24 [employer] Pain Scale Pain Scale Verbal 0-10 : Open YAMINI CERDA RN - 03/29/2016 13:24 [employer] Pain Pain Assessment Grid Pain 1 Location : Epigastric Intensity : 3 YAMINI CERDA RN - 03/29/2016 13:24 [employer] DENNY DCP GENERIC CODE Tracking Acuity : 3 -Urgent Tracking Group : [facility] ED/UC BARBRA YAMINI Escalona RN - 03/29/2016 13:24 [employer] Allergy (As Of: 03/29/2016 13:31:17 [employer]) Allergies (Active) NKA Estimated Onset Date: Unspecified ; Created By: KATIE BRUNNER MD; Reaction Status: Active ; Category: Drug ; Substance: NKA ; Type: Allergy ; Updated By: KATIE BRUNNER MD; Reviewed Date: 03/29/2016 13:26 [employer] ID Screen Drug Resistant Organism : No Travel Within Last 21 Days : No Contact with someone with Ebola : No YAMINI CERDA RN - 03/29/2016 13:24 [employer] Respiratory Airway : Patent Respirations : Unlabored Respiratory Pattern : Regular Oxygen Therapy : Room air YAMINI CERDA RN - 03/29/2016 13:24 [employer] Cardiovascular Heart Rhythm : Regular Skin Color : Normal for ethnicity Skin Description : Dry Skin Temperature : Warm Cardiovascular Detailed Assessment : Yes YAMINI CERDA RN - 03/29/2016 13:24 [employer] CV Detailed CV Patient Stated Symptoms : Dizziness Nail Bed Color : [place] Capillary Refill : Less than 2 seconds Cardiac Rhythm : Sinus rhythm, Sinus tachycardia Edema Assessment : No Cardiovascular Note : Pt noted becoming dizzy while in UC. She got up to go to the bathroom and feltas if she could pass out. Staff states she was pale and diaphoretic. Pt denies any chest pain. YAMINI CERDA RN - 03/29/2016 13:24 [employer] Neurological Last Well Time Known : Not applicable Level of Consciousness : Alert Orientation : Oriented x 3 Characteristics of Speech : Clear YAMINI CERDA RN - 03/29/2016 13:24 [employer] ED Psychosocial Affect/Behavior : Calm, Cooperative, Appropriate Domestic Abuse Concerns : None Behavioral Health Screen/Safety Assmt : No YAMINI CERDA RN - 03/29/2016 13:24 [employer] Gastrointestinal Nutrition ED : Adequate GI Detailed Assessment : Yes YAMINI CERDA RN - 03/29/2016 13:24 [employer] GI Detailed GI Patient Stated Symptoms : Diarrhea, Nausea, Vomiting Bowel Movement Last Date : 03/29/2016 [employer] Stool Description : Liquid Abdomen Description : Symmetric Abdomen Palpation : Soft GI Note : Pt arrives c/o nausea, vomiting and diarrhea that started about 0430 this morning and states she is in the bathroom every 30 minutes. Noted epigastric pain. States she ate a [employer] [facility] [place] last night. Unable to keep anything down. YAMINI CERDA RN - 03/29/2016 13:24 [employer] /OB Assessment Patient Stated Symptoms : None YAMINI CERDA RN - 03/29/2016 13:24 [employer] Musculoskeletal Fall Prevention Education Provided : Yes Standard Safety : Bed in low position, Call device within reach, ID band check YAMINI CERDA RN - 03/29/2016 13:24 [employer] Social Habits Exposure to Tobacco Smoke : Patient smokes, Other: occ alcohol Smoking Status : Current every day smoker Tobacco 2A : Yes Tobacco Use/Currently Using : Yes Tobacco Use/Last 30 Days : Yes Tobacco Use/Last 12 months : Yes Type : Cigarettes: Less than 20 per day Tobacco Use/Advised to Quit : No YAMINI CERDA RN - 03/29/2016 13:24 [employer] Alcohol Use Grid Alcohol Use : Yes Frequency : Occasionally YAMINI CERDA RN - 03/29/2016 13:24 [employer] Recreational Drug Use Grid Drug Use : Current Type : Alcohol Route : Oral Frequency : Other: TWICE A MONTH YAMINI CERDA RN - 03/29/2016 13:24 [employer] Peripheral IV Peripheral IV Assess/Intervention Grid Peripheral IV #1 IV Activity : Start Number of Attempts : 1 Date of Insertion : 03/29/2016 [employer] IV Site : Forearm Laterality : Left Catheter Size : 20 Catheter Type : Safety intima Site Condition : No complications Drainage Description : None Dressing/ Activity : Dry, Intact, Transparent Flow/ Patency : No complications YAMINI CERDA RN - 03/29/2016 13:24 [employer] Source: [facility] POWERCHART Document Id: [id number] [employer]!118 [employer] Natalya Moscoso M.D. - 03/29/2016 1:13 PM [...] Note : Chief Complaint Description 03/29/2016 12:32 [employer] Chief Complaint Description vomiting since 0400 today. [...] patient ate a spicy chicken sandwich from [employer] last night. The patient complains of abdominal [...] Medical/ Family/ Social History Surgical history: Esophagogastroduodenoscopy ([id number]) on 08/12/2015 at 30 Years. Upper GI endoscopy ([id number]) on 08/12/2015 at 30 Years. Other Manually [...] PowerChart. Cytopathology, slides, cervical or vaginal (the [place] System); manual screening under physician supervision.. ([id number]) in the week of 03/10/2004 at 18 Years. Comments: 04/18/2010 21:45 - CARMEN MORALES Hx: [id number] - LAB-CYTOPATH, SM,D/V,TDS<3SM TECH 03/21/2013 17:41 - Contributor source changed to PowerChart.. Problem list: All Problems (Selected) Disease Gastroesophageal Reflux (GERD ERMELINDA) / K21.9 / Confirmed. Physical Examination Vital Signs: Vital Signs 03/29/2016 12:46 [employer] Temperature Core 36.4 DegC LOW Peripheral Pulse Rate 100 /min Respiratory Rate 22 /min HI SpO2 99 % Systolic Blood Pressure 118 mmHg Diastolic Blood Pressure 74 mmHg Mean Arterial Pressure 89 mmHg BP Location Left upper Blood Pressure Cuff Size Regular , Measurements 03/29/2016 12:46 [employer] Height 169 cm 03/29/2016 12:33 [employer] Height 169 cm , SpO2 03/29/2016 12:46 [employer] SpO2 99 % . General: Alert and [...] review:Lab results : Lab View 03/29/2016 13:16 [employer] Hgb 15.4 g/dL Hct 45.8 % HI WBC 10.3 x10(9)/L RBC 5.02 x10(12)/L MCV 91.2 fL RDW 13.3 % Platelet 224 x10(9)/L Neutro Absolute 9.04 10(9)/L HI Lymph Absolute 0.54 x10(9)/L LOW Terry Absolute 0.42 x10(9)/L Eos Absolute 0.26 x10(9)/L [...] Stable. Disposition: Discharged: to home. Prescriptions: Prescription National Business Director Pharmacy: ondansetron 4 mg oral tablet, disintegrating [...] JOANIE VILLAREAL On: 03/29/2016 01:30 PM Source: [facility] [employer] SoundCHART Document Id: [id number]} [employer] Neal Hunter L.P.N. - 03/29/2016 12:55 PM CST ED Treatments and Procedures ED Treatments and Procedures Entered On: 03/29/2016 12:59 [employer] Performed On: 03/29/2016 12:55 [employer] by NEAL HUNTER LPN Orthostatics Systolic Blood [...] Regular NEAL HUNTER LPN - 03/29/2016 12:55 [employer]TING Source: [facility] POWERCHART Document Id: [id number] [employer]TING!12 [employer]TING Sangita Allen R.N. - 03/29/2016 12:32 PM CST ED Triage Assessment Document Has Been Updated ED Triage Assessment Entered On: 03/29/2016 12:33 [employer] Performed On: 03/29/2016 12:32 [employer] by SANGITA ALLEN RN Reason For Visit (As Of: 03/29/2016 12:33:34 [employer]) Problems(Active) Disease Gastroesophageal Reflux (GERD ERMELINDA) (ICD-10-CM :K21.9 ) Name of Problem: Disease Gastroesophageal Reflux (GERD ERMELINDA) ; Recorder: CHEO KHAN MD; Confirmation: Confirmed ; Classification: Medical ; Code: K21.9 ; Contributor System: NewsBasis ; Last Updated: 08/12/2015 10:33 CDT ; Life Cycle Status: Active ; Responsible Provider: CHEO KHAN MD; Vocabulary: ICD-10-CM Diagnoses(Active) Vomiting Date: 03/29/2016 ; Diagnosis Type: Reason For Visit ; Confirmation: Complaint of ; ClinicalDx: Vomiting ; Classification: Medical ; Clinical Service: Emergency medicine ; Code: PNED ; Probability: 0 ; Diagnosis Code: [id number] Triage Chief Complaint Description : vomiting since 399 today. Denies pain. Needs something for nausea. Information Given By : Patient Present in Room During Exam/Procedure : Alone Mode of Arrival ED : Private vehicle Track : Medical Languages : South Korean Patient Informed of Triage Location : Urgent Care Treatments Prior to Arrival : None Is Patient Female and 13-50 no hysterectomy : Yes SANGITA ALLEN RN - 03/29/2016 12:32 [employer] Pain Assessment Pain Symptoms : No SANGITA ALLEN RN - 03/29/2016 12:32 [employer] DENNY DENNY Level 1 : No DENNY Level 2 : No DENNY Level 3 : One SANGITA ALLEN RN - 03/29/2016 12:32 [employer] DCP GENERIC CODE Tracking Acuity : 4 -Less Urgent Tracking Group : [facility] ED/ SANGITA ALLEN RN - 03/29/2016 12:32 [employer]TING Source: [facility] [employer] Document Id: [id number] [employer]TING!20 [employer] documented in this encounter Miscellaneous Notes Miscellaneous - Conversion, Historical Provider Ser - 03/29/2016 3:20 PM [employer] Coding Summary-Paper Based CODING DATE: 04/08/2016 FINAL [facility] STATUS: [...] CHANCE Date Saved: 04/08/2016 01:38 pm Source: [employer] Document Id: [id number] documented in this encounter Plan of Treatment Not on filedocumented as of this encounter Procedures Procedure Name Priority Date/Time Associated Diagnosis Comme nts HEPATIC FUNCTION Routine 03/29/2016 1:16 PM Resul ts for this PANEL, S [employer] procedure are i n the results section. AUTOMATED Routine 03/29/2016 1:16 PM Results f or this DIFFERENTIAL, B [employer] procedure ar e in the results section. BHCG (BETA-HUMAN Routine 03/29/2016 1:16 PM Resul ts for this CHORIONIC [employer] procedure are i n GONADOTROPIN), the results CASIE, S section. CBC WITH Routine 03/29/2016 1:16 PM Results f or this DIFFERENTIAL, B [employer] procedure ar e in the results section. LIPASE, S/P Routine 03/29/2016 1:16 PM Results f or this [employer] procedure are i n the results section. LACTATE, B/P Routine 03/29/2016 1:16 PM Results f or this [employer] procedure are i n the results section. BASIC METABOLIC Routine 03/29/2016 1:16 PM Result s for this PANEL, S/P [employer] procedure are i n the results section. documented in this encounter Results (ABNORMAL) Automated Differential (03/29/2016 1:16 PM [employer]) [facility] gist Method Time Signature Absolute 9.04 (H) [...] Laterality Blood 03/29/2016 1:16 PM 6 1:16 [employer] PM [employer] Natalya Moscoso M.D. LAB BLOOD ADD-ON Performing Organization Address City/State/ZIP Code Phon e Number POWERCHART (ABNORMAL) CBC with Differential (03/29/2016 1:16 PM [employer]) Analysis Performed At Patho logist Time Signature Leukocytes 10.3 3.4 - 10.5 POWERCHART X109L Erythrocytes 5.02 3.90 - POWERCHART 5.03 E0847G Hemoglobin 15.4 12.0 - POWERCHART 15.5 GDL Hematocrit 45.8 (H) 34.9 - POWERCHART 44.5 MCV 91.2 82.0 - POWERCHART 98.0 FL HX RDW 13.3 11.9 - POWERCHART 15.5 Platelet Count 224 150 - 450 POWERCHART X109L Specimen (Source) Anatomical Collection Method Collection Time Re ceived Time Location / / Volume Laterality Blood 03/29/2016 1:16 PM [employer] Natalya Moscoso M.D. LAB BLOOD ADD-ON Performing Organization Address City/State/ZIP Code Phon e Number POWERCHART bHCG (Beta-Human Chorionic Gonadotropin), Quantitative (03/29/2016 1:16 PM [employer]) P athologist Signature Beta-HCG, <0.5 <=4.9 IUL [...] / Volume Laterality Blood 03/29/2016 1:16 PM [employer] Natalya Moscoso M.D. LAB BLOOD ADD-ON Performing Organization Address City/[facility] Code Phon e Number POWERCHART Hepatic Function Panel (03/29/2016 1:16 PM [employer]) P athologist Signature Alanine 11 7 - [...] / Volume Laterality Blood 03/29/2016 1:16 PM [employer] Natalya Moscoso M.D. LAB BLOOD ADD-ON Performing Organization Address City/[facility] Phon e Number POWERCHART Lipase (03/29/2016 1:16 PM [employer]TING) P athologist Signature Lipase, S 21 13 - 60 UL POWERCHART Comment: Reference ranges have not been established for patients that are less than 16 years of age Specimen (Source) Anatomical Collection Method Collection Time Re ceived Time Location / / Volume Laterality Blood 03/29/2016 1:16 PM [employer] Natalya Moscoso M.D. LAB BLOOD ADD-ON Performing Organization Address City/State/[facility] Code Phon e Number POWERCHART Lactate (03/29/2016 1:16 PM [employer]) P athologist Signature Lactate, P 1.2 0.5 - 2.2 POWERCHART MMOLL Specimen (Source) Anatomical Collection Method Collection Time Re ceived Time Location / / Volume Laterality Blood 03/29/2016 1:16 PM [employer] Natalya Moscoso M.D. LAB BLOOD NON ADD-ON Performing Organization Address City/State/ZIP Code Phon e Number POWERCHART (ABNORMAL) BMP (Basic Metabolic Panel) (03/29/2016 1:16 PM [employer]) P athologist Signature Sodium, S 141 135 [...] ed reference range. HXeGFR (MDRD) >60 >=60 [id number] POWERCHART eGFR Black/ >60 >=60 [id number] POWERCHART Glucose 114 70 - 139 MGDL [...] / Volume Laterality Blood 03/29/2016 1:16 PM [employer] Natalya Moscoso M.D. LAB BLOOD ADD-ON Performing Organization Address City/State/ZIP Code Phon e Number POWERCHART documented in this encounter Visit Diagnoses Not on filedocumented in this encounter
--- OUTSIDE RECORDS SUMMARY | 2022-02-12 14:29 | XMS_ITS | Encounter Summary ---
:1985 Author Organization [facility] Address [address] [place] [address] Care Team Providers Name Role Phone Unavailable Primary Care Provider Unavailable Encounter Details Date Type Department Care Team Description 08/12/2015 Hospital Encounter HX [facility] Nuha Nelson Jr, M.D. [address] [place], [place] [address] (Wo rk) Social History Tobacco Use [...] WHITE RN - 08/12/2015 11:09 CDT Source: [facility] [employer] ScientificCHART Document Id: [id number] CDT!26 Nuha Butler M.D. - 08/12/2015 10:33 AM CDT Hospital Discharge Medication List [facility] [address] [place] [address] Discharge Medication List Name: SILVIA BLANCHARD Current Date: 08/12/2015 10:33:48 : 1985 12:00 AM [facility] Number: [id number] Patient Address: [address] [place] [phone] Patient Primary Care Provider: Name: SOFIE SORIA MD Phone: [phone] Discharge Diagnosis: [facility] in [place] would like to thank you for allowing [...] CHEO BUTLER MD Signed On:12-AUG-2015 10:33:44 Source: [facility] POWERCHART Document Id: [id number] Nuha Butler M.D. - 08/12/2015 10:33 AM CDT Hospital Discharge Instructions [facility] [address] [place] [address] Patient Discharge Instructions Name: SILVIA BLANCHARD Current Date: 08/12/2015 10:33:49 : 1985 12:00 AM [facility] Number: [id number] Patient Address: [address] [place] [phone] Patient Primary Care Provider: Name: SOFIE SORIA MD Phone: [phone] Discharge Diagnosis: [facility] in [place] would like to thank you for allowing [...] Appointments Date Time Location Provider 08/23/2015 08:15 [facility] Sofie Soria MD Consider Using Patient [...] you dont have one. Go to [email or web address] and click on Create Your Account. Then, follow the directions to complete the online form. Youll be asked for your [facility] number which you can find at the top of this document. LO Ward SILVIA STALEYN , have received the attached patient education materials/instructions and have verbalized understanding: Patient Signature Date Time Care Provider Signature Date Time Source: [facility] [employer] Document Id: [id number] documented in this encounter Procedure Notes Liss [...] : NA Jewelry/Piercing Removed : Yes Makeup/Nail Japanese Removed : NA Oral Hygiene : NA Preop Scrub AM of Surgery : NA Preop Scrub Night Prior to Surgery : NA Prosthesis Removed : NA Tampon Removed : NA Verified - No hair products used : NA Voided twenty one dealer to procedure : NA Wearing Patient Gown [...] M RN - 08/12/2015 11:07 CDT Source: [employer] Document Id: [id number] CDT!10 Nuha Butler M.D. - 08/12/2015 9:49 AM CDT ExamEndo Patient Name: Silvai Blanchard Procedure Date: 08/12/2015 9:49 AM Date of : 1985 Admit Type: Outpatient Age: 30 Room: [facility] Gender: Female Note Status: Finalized Attending MD: [...] by the physician, the nurse and the electro mechanical solar technician. The procedure was verified in the [...] present medications. Procedure Code(s): --- Professional --- 87579, Esophagogastroduodenoscopy, flexible, transoral; with biopsy, single or multiple Diagnosis Code(s): --- Professional --- K44.9, Diaphragmatic hernia without obstruction or gangrene K31.9, Disease of stomach and duodenum, unspecified CPT copyright 2013 [employer]. All rights reserved. The codes documented in this report are preliminary and upon airplane electrician review may be revised to meet current compliance requirements. Cheo Butler MD Cheo Butler MD 08/12/2015 10:38 AM Number of Addenda: 0 Note Initiated On: 08/12/2015 9:49 AM Source[facility] Document Id: [id number] documented in this encounter Nursing Notes Liss [...] Information Given By : Patient Languages : Frisian Is Patient Female and 13-50 no hysterectomy [...] anesthesia Transfusion Acceptable in Emergency : Yes Zoroastrian/Other Objections to Blood Transfusions : No LISS [...] Tube Feedings or Parenteral Nutrition : No [facility] Score : 2 Home Diet : Regular [...] Screen/Safety Assmt : No Coping : Effective Zoroastrian Preference : No Zoroastrian Affiliation LISS BUCKNER RN - 08/12/2015 9:38 CDT Advance Directive Advanced Directives : No Advance Directive Additional Information : No LISS UBCKNER RN - 08/12/2015 9:38 CDT Educ Needs [...] : No Affect/Behavior : Calm, Cooperative, Appropriate ILSS BUCKNER RN - 08/12/2015 9:38 CDT Coping [...] BUCKNER RN - 08/12/2015 9:38 CDT Source: [facility] [employer] Document Id: [id number] CDT!12 documented in this encounter Miscellaneous Notes [...] 8:39 Document - DOC Pathology-Surg Path Source: [facility] [employer] Document Id: [id number] Electronically signed by James [facility] Networkandria Mud Analysis Supervisor [id number] at 09/26/2016 7:49 PM CDT Miscellaneous - Chevy Woodard RDevendra - 08/13/2015 9:40 AM CDT Discharge Follow Up Discharge Follow Up Entered On: 08/13/2015 9:40 CDT Performed On: 08/13/2015 9:40 CDT by YAMILET, CHEVY A mid level java developer Follow Up Follow Up Completed : Via [...] WOODARD RN - 08/13/2015 9:40 CDT Source: [employer] Document Id: [id number] CDT!19 Miscellaneous - Conversion, Historical Provider Ser - 08/12/2015 11:30 AM CDT Coding Summary-Paper Based CODING DATE: 08/16/2015 FINAL [facility] STATUS: * Discharged to Home or [...] PROC APC STAT DESCRIPTION DOCTOR NAME DATE 53341 EGD TRANSORAL BIOPSY CHEO BUTLER MD 08/12/2015 SINGLE/MULTIPLE NOTE: The code number assigned matches the documented diagnosis and / or procedure in the patient's chart. However, the narrative phrase printed from the coding software may appear abbreviated, or result in slightly different terminology. Coded By: ROBINA HARRELL Date Saved: 08/16/2015 11:07 am Source: [employer] Document Id: [id number] Miscellaneous - Leta White RDevendra - 08/12/2015 [...] WHITE RN - 08/12/2015 11:18 CDT Source: [employer] Document Id: [id number] CDT!23 Miscellaneous - Leta White REmekaN. - [...] afford the prescribed medication, you can try viak-mlp-ubpstry acid blockers, such as Pepcid AC, Tagamet, [...] as directed by your healthcare provider ?? [phone] [place] [address]. All rights reserved. This information is not intended as a substitute for professional medical care. Always follow your healthcare professional's instructions. This document has images extracted. Please consider using [employer] for all your patient education needs. Source: [facility] POWERCHART Document Id: [id number] Miscellaneous - Leta White REmekaN. - 08/12/2015 [...] WHITE RN - 08/12/2015 11:07 CDT Source: [employer] Document Id: [id number] CDT!21 Miscellaneous - Leta White R.N. - [...] WHITE RN - 08/12/2015 11:06 CDT Source: [facility] POWERCHART Document Id: [id number] CDT!32 documented in this encounter Plan of [...] LCM LAB - 08/14/2015 8:39 AM CDT [facility] in [address] [place] [id number] Patient Name: SILVIA BLANCHARD Patient ID #: [id number] Collected: 08/12/2015 Address: City/State/Zip: [address] [place] [address] ??[phone] Received: Reported: 08/13/2015 08/14/2015 Soc. Sec. #: ?/Age/Sex 1985 (Age: 30) ??F Physician(s): DEJA BUTLER MD Copy To: ? [facility] BRANDO MOE DIALLO ??[id number] [address] [place], ??[place] ??[address] SURGICAL PATHOLOGY REPORT FINAL DIAGNOSIS: DUODENUM, BIOPSIES [...] to a 2 mm diameter. ??ESB, B. (36920, 65488K, 28438) DDG/PAP/08/13/2015 MICROSCOPIC DESCRIPTION: CONTROLS REVIEWED; RESULTS ACCEPTABLE. Reviewed by Ricky Alfonso M.D.; Patholo gist PRAVEENA/08/14/2015 A Lorraine Butler Jr., M.D. LAB SURG PATH ORDERABLES Performing Organization Address City/State/ZIP Code Phon e Number LCM LAB documented in this encounter Visit Diagnoses Not on filedocumented in this encounter
--- OUTSIDE RECORDS SUMMARY | 2022-02-12 14:29 | XMS_ITS | Encounter Summary ---
:1985 Author Organization [facility] Address [address] [place] [address] Care Team Providers Name Role Phone Unavailable Primary Care Provider Unavailable Encounter Details Date Type Department Care Team Description 11/24/2015 Hospital Encounter HX [facility] Lane Shi M.D. [address] [place] [phone] (Wo rk) Social History Tobacco Use [...] 11/24/2015 8:08 PM CDT ED Depart Summary [facility] Emergency Department / Urgent Care Clinical Discharge Summary PERSON INFORMATION Name SILVIA BLANCHARD Age 30 Years 1985 12:00 AM Sex Female Language East Timorese PCP SOFIE VÁZQUEZ MD Marital Status Visit Id Visit Reason Back pain; back pain Specialty Enc Type Emergency Med Service Emergency Medicine Referred by [employer] [facility] ED/UC Discharge 11/24/2015 8:08 PM Tracking Id [id number] Checkout 11/24/2015 8:08 PM Checkin 11/24/2015 5:47 PM Acuity 4 -Less Urgent Dispo Type * Discharged to Home or Self Care Arrival 11/24/2015 5:47 PM Reg Status Complete LOS 000 02:21 Address: [address] [place] [phone] Comment: PROVIDER INFORMATION Provider Role Provider Contact Time YAMINI CERDA TILE SORTER Nurse 11/24/15 17:[address] L[address] SHI MD ED [...] hear back. With: Address: When: SOFIE VÁZQUEZ [address] [place] [phone] Business (1) Within 1 week Comments: If your pain control goals are not met by Occupational Health in the next week, then call your doctor for additional treatment or testing options. Return to the ED sooner if you develop numbness or weakness, fever, difficulty going to the bathroom, or other unexpected symptoms. Source: [facility] POWERCHART Document Id: [id number] Devi Raza R.N. - 11/24/2015 8:08 PM CDT ED Discharge Instructions [address] [address] Name: SILVIA BLANCHARD Date of : 1985 12:00 AM Visit Date: 11/24/2015 5:47 PM [facility] Number: [id number] Address: [address] [place] [phone] Primary Care Provider: SOFIE VÁZQUEZ MD IMPORTANT: [facility] in [place] would like to thank you for allowing [...] Address: When: SOFIE VÁZQUEZ [address] [place] [phone] Business (1) Within 1 week Comments: If [...] as directed by your healthcare provider ?? [phone] [place] [address]. All rights reserved. This information is not [...] form. Youll be asked for your [facility] number which you can find at the [...] document has images extracted. Please consider using [employer] for all your patient education needs. Source: [facility] Your Office AgentCHART Document Id: [id number] documented in this encounter ED Notes Devi Raza R.N. - 11/24/2015 8:08 PM CDT ED Disposition Summary ED Disposition Summary Entered On: 11/24/2015 20:08 CDT Performed On: 11/24/2015 20:08 CDT by DEVI RAZA TILE SORTER Disposition Summary Present in Room During Exam/Procedure : Friend Mode of Discharge : Ambulatory Transportation : Private vehicle Discharge From ED With : Home Med List Printed Discharge Instructions Given to Patient : Yes Patient Status at Discharge from ED : Improved DEVI RAZA RN - 11/24/2015 20:08 CDT [facility] Document Id: [id number] CDT!8 Maylin Moore D.O. - 11/24/2015 7:26 [...] MOORE DO On: 11/26/2015 12:38 AM Source: [facility] POWERCHART Document Id: [id number]} René Bolden R.N. - 11/24/2015 7:21 PM [...] BOLDEN RN - 11/24/2015 19:21 CDT Source: [employer] Document Id: [id number] CDT!10 Yamini Cerda R.N. - 11/24/2015 6:42 [...] CERDA RN - 11/24/2015 18:42 CDT Source: [employer] Document Id: [id number] CDT!5 Lane Shi M.D. - 11/24/2015 6:15 [...] 12/31/1997 CDT. Polio: Dose #1 () 1985 CORN GRINDER, Dose #2 () 1985 CDT, Dose #3 () 11/17/1988 CDT. influenza virus vaccine: Ad hoc dose () 03/01/2009 CDT. tetanus/diphth/pertuss (Tdap) adult/adol: Ad hoc dose (Tdapadult) 11/01/2013 CDT. MMR: Dose #1 () 11/17/1988 CDT, Dose #2 () 01/08/1999 CDT. DTaP: Dose #1 () 1985 CORN GRINDER, Dose #2 () 1985 CDT, Dose #3 () 1985 CDT, Dose #4 () 11/17/1988 CDT. Hib: Dose #1 () 01/13/1989 CDT. influenza virus vaccine, H1N1, live: Ad hoc dose () 03/01/2009 CDT. Future No future immunizations have been selected or recorded. . Past Medical/ Family/ Social History Surgical history: Esophagogastroduodenoscopy ([id number]) on 08/12/2015 at 30 Years. Upper GI endoscopy ([id number]) on 08/12/2015 at 30 Years. Other Manually [...] PowerChart. Cytopathology, slides, cervical or vaginal (the Manteca System); manual screening under physician supervision.. (38321) in the week of 03/10/2004 at 18 Years. Comments: 04/18/2010 21:45 - CARMEN MORALES Hx: [address]90 - LAB-CYTOPATH, SM,D/V,TDS<3SM TECH 03/21/2013 17:41 - [...] CAL BARRETT On: 11/24/2015 06:31 PM Source: [facility] [employer] Document Id: [id number]} Yamini Cerda REmekaN. - 11/24/2015 5:57 PM [...] Medical ; Code: K21.9 ; Contributor System: Mister Mario ; Last Updated: 08/12/2015 10:33 CDT ; Life Cycle Status: Active ; Responsible Provider: CHEO KHAN MD; Vocabulary: ICD-10-CM Diagnoses(Active) Back pain Date: 11/24/2015 ; Diagnosis Type: Reason For Visit ; Confirmation: Complaint of ; Clinical Dx: Back pain ; Classification: Medical ; Clinical Service: Emergency medicine ; Code: PNED ; Probability: 0 ; Diagnosis Code: [id number] Triage Chief Complaint Description : Pt arrives [...] Private vehicle Track : Medical Languages : East Timorese Patient Informed of Triage Location : Emergency [...] : 4 -Less Urgent Tracking Group : [facility] ED/ YAMINI CERDA RN - 11/24/2015 17:57 [...] CERDA RN - 11/24/2015 17:57 CDT [facility] Document Id: [id number] CDT!69 documented in this encounter Miscellaneous Notes Telephone Encounter - Megan Vaca L.P.N. - 11/27/2015 2:24 PM CDT Follow Up with Occupational Medicine Entered by MEGAN VACA LPN on November 27, 2015 14:24:55 CDT pt seen on Follow Up Request: Follow Up with Occupational Medicine Date Requested: November 24, 2015 19:26:18 CDT Ed Location: [facility] ED ED Attending: LANE SHI MD Order [...] if you do not hear back. Source: [employer] Document Id: [id number] Electronically signed by James [facility] Director Of Partnerships [id number] at 09/27/2016 12:21 PM CDT Miscellaneous - Devi Raza REmekaN. - 11/24/2015 8:08 PM CDT Valuables/Belongings Valuables/Belongings Entered On: 11/24/2015 20:08 CDT Performed On: 11/24/2015 20:08 CDT by DEVI RAZA RN Valuables/Belongings Belongings Sent Home With : pt DEVI RAZA RN - 11/24/2015 20:08 CDT Source: [employer] Document Id: [id number] CDT!3 Miscellaneous - Conversion, Historical Provider Ser - 11/24/2015 8:08 PM CDT Coding Summary-Paper Based CODING DATE: 12/02/2015 FINAL [facility] STATUS: * Discharged to Home or Self [...] CHANCE Date Saved: 12/02/2015 06:59 am Source: [facility] POWERCHART Document Id: [id number] documented in this encounter Plan of Treatment Not on filedocumented as of this encounter Visit Diagnoses Not on filedocumented in this encounter
--- OUTSIDE RECORDS SUMMARY | 2022-02-12 14:29 | XMS_ITS | Encounter Summary ---
:1985 Author Organization [facility] Address [address] [place] [address] Care Team Providers Name Role Phone Unavailable Primary Care Provider Unavailable Encounter Details Date Type Department Care Team Description 02/25/2016 Hospital Encounter HX [facility] Kai Longo M.D. [address] [place], [place] [address] Social History Tobacco Use Types Packs/Day Years Used Date Smoking Tobacco: Never Assessed Sex Assigned at Date Recorded Not on file documented as of this encounter Plan of Treatment Not on filedocumented as of this encounter Visit Diagnoses Not on filedocumented in this encounter
--- NOTE | 2022-02-12 14:30 | MR_ITS ---
[address] [address] Phone:?[phone] Fax:?[phone] Referring Physician Information: Ricco Marin M.D. [address] [facility] [address] Phone:?[phone] Fax:?[phone] Patient:Chani May D.O.B:?1985 Sex:?Female Phone:?[phone] [facility] MRN:?[id number] Exam Date:?02/12/2022 ? EXAM: MRI of the RIGHT KNEE, without contrast CLINICAL HISTORY: Acute right knee pain. Fall injury while going upstairs. Evaluate for internal derangement. COMPARISONS: None available. TECHNICAL: MR sequences of the right knee: sagittals: PD, PDFS coronals: PD, STIR axials: PD, T2 FS CONTRAST: None SEDATION: None FINDINGS: Bones: No fracture, bone marrow contusion, or other suspicious bone marrow signal abnormality. Patellofemoral joint: Cartilage: Intact. Retinacula: The medial and lateral retinacula are intact. Fat pads: The infrapatellar, quadriceps, and prefemoral fat pads are unremarkable. Knee joint: Effusion: Physiologic amount of joint fluid. Popliteal cyst: None. Intra-articular bodies: None. Medial compartment: Medial meniscus: Intact. Cartilage: Intact. Lateral compartment: Lateral meniscus: Intact. Cartilage: Intact. Ligaments: Anterior cruciate ligament: Intact. Posterior cruciate ligament: Intact. Medial collateral ligament: Intact. Posterior oblique ligament: Intact. Fibular collateral ligament: Intact. Posterolateral corner: The distal biceps femoris tendon, iliotibial band, popliteus tendon, popliteus muscle, popliteofibular ligament, and arcuate ligament are intact. Posteromedial corner: The semimembranosus and pes anserine tendons are intact. Extensor mechanism: Patellar tendon: Intact. Quadriceps tendon: Intact. Soft tissue swelling over the anterior and anterolateral aspects of the right knee is best seen on axial series 4 images 8 through 31. IMPRESSION: 1. Soft tissue swelling over the anterior and anterolateral aspects of the right knee likely reflects soft tissue contusion but is nonspecific. 2. Otherwise, unremarkable MRI of the right knee without osseous pathology, ligamentous injury, tendinous pathology, meniscal tear, or chondral pathology. RCB Electronically signed on 02/12/2022 6:28:00 PM by Nelson Flores M.D.
--- OUTSIDE RECORDS SUMMARY | 2022-02-12 14:30 | XMS_ITS | Encounter Summary ---
:1985 Author Organization [facility] Address [address] [place] [address] Care Team Providers Name Role Phone Unavailable [...]
--- OUTSIDE RECORDS SUMMARY | 2022-02-12 14:30 | XMS_ITS | Encounter Summary ---
:1985 Author Organization [facility] Address [address] [place] [address] Care Team Providers Name Role Phone Unavailable Primary Care Provider Unavailable Encounter Details Date Type Department Care Team Description 07/23/2015 Hospital Encounter HX [facility] Ford Keenan M.D. [address] [place], [place] [address] (Wo rk) Social History [...] Keenan M.D. - 07/23/2015 9:27 AM CDT [id number] CHIEF COMPLAINT/REASON FOR VISIT Sore throat. HISTORY [...] back after the reflux gets under control. Ford Keenan M.D./guillermo Electronically Signed By: FORD KEENAN MD On: 07/23/2015 12:59 PM Source: [facility] MHSDOLBEYNONRADSYS Document Id: [id number] documented in this encounter Miscellaneous Notes Miscellaneous - Chevy Morales L.P.N. - 07/23/2015 10:20 AM CDT *General Message Document Contains Addenda Addendum by ROBERT BANSAL LPN on July 25, 2015 13:30:04 CDT From: ROBERT BANSAL LPN (YADIRA No Nurse) To: YADIRA PreOp Nurse; [facility] Sales Person/Prior Authorizations; Sent: 07/25/2015 13:30:04 CDT Subject: FW: [...] GERD x 5 to 6 yrs.Thankyou. Source: [facility] POWERCHART Document Id: [id number] Miscellaneous - Ford Keenan M.D. - 07/23/2015 10:15 AM CDT Ambulatory Patient Summary [address] [phone] Visit Information Name: RADHA BLANCHARD [facility] Number: [id number] Current Date: 07/23/2015 10:15:12 Physicians Attending Provider: FORD KEENAN MD Primary Care Provider: SOFIE VÁZQUEZ MD [phone] RADHA BLANCHARD has been given the following [...] hours x 14 day(s) New Routed to [address] [address] dexamethasone (dexamethasone 2 mg oral [...] Oral, once a day New Routed to [address] [address] oxyCODONE (oxyCODONE 5 mg oral [...] Youll be asked for your [facility] number which you can find at the top of this document. Your Goals/Additional instructions: Source: [facility] POWERCHART Document Id: [id number] Miscellaneous - Ford Keenan M.D. - 07/23/2015 10:15 AM CDT Ambulatory Discharge Medication List [facility] [address] [place], [place] [phone] Visit Information Name: RADHA BLANCHARD [facility] Number: [id number] Visit Date: 07/23/2015 10:15:12 Attending Provider: FORD KEENAN MD Primary Care Provider: SOFIE VÁZQUEZ MD [phone] RADHA BLANCHARD has been given the following [...] hours x 14 day(s) New Routed to [address] [place] [address] dexamethasone (dexamethasone 2 mg oral [...] Oral, once a day New Routed to [address] [place], [place] [id number] oxyCODONE (oxyCODONE 5 mg oral tablet) 1 [...] MD Signed On:23-JUL-2015 10:15:08 Additional Information: Source: [facility] POWERCHART Document Id: [id number] Miscellaneous - Chevy Morales L.P.N. - 07/23/2015 9:29 AM CDT Adult Marketing Clerk Intake/History Adult Marketing Clerk Intake/History Entered On: 07/23/2015 9:31 CDT Performed [...] Preferred Communication Mode : Verbal Languages : Kuwaiti Is Patient Female and 13-50 no hysterectomy [...] MORALES LPN - 07/23/2015 9:29 CDT [email or web address] Document Id: [id number] CDT!37 documented in this encounter Plan of Treatment Not on filedocumented as of this encounter Visit Diagnoses Not on filedocumented in this encounter
--- OUTSIDE RECORDS SUMMARY | 2022-02-12 14:30 | XMS_ITS | Encounter Summary ---
:1985 Author Organization [facility] Address [address] [place] [id number] Care Team Providers Name Role Phone Unavailable Primary Care Provider Unavailable Encounter Details Date Type Department Care Team Description 07/17/2015 Hospital Encounter [facility] Andrea Archibald APRN, C.N.P., R. N. [address] [place] [phone] (Wo rk) Social History Tobacco Use Types [...] 07/17/2015 8:55 AM CDT ED Depart Summary [facility] Emergency Department / Urgent Care Clinical Discharge Summary PERSON INFORMATION Name SILVIA STEELE Age 30 Years 1985 12:00 AM Sex Female Language Maldivian PCP SOFIE VÁZQUEZ MD Marital Status Single Visit Id Visit Reason Throat pain - Adult; THROAT PROBLEMS Specialty [facility] Outpatient Med Service Urgent Care Referred by [facility] ED/UC Discharge 07/17/2015 8:54 AM Tracking Id [id number] Checkout 07/17/2015 8:54 AM Checkin 07/17/2015 8:18 AM Acuity 4 -Less Urgent Dispo Type * Discharged to Home or Self Care Arrival 07/17/2015 8:18 AM Reg Status Complete LOS 000 00:36 Address: [address] [place] [address] Comment: PROVIDER INFORMATION Provider Role Provider Contact Time KAYLENE ARCHIBALD ADJUNCT PHYSICS INSTRUCTOR ED Provider 07/17/15 08:44 NIYA FLYNN LPN ED Nurse 07/17/15 08:44 DIAGNOSIS Comment: PATIENT EDUCATION INFORMATION Instructions: Follow up: Source: [facility] POWERCHART Document Id: [id number] Niya Flynn L.P.N. - 07/17/2015 8:55 AM CDT ED Discharge Instructions [facility] [address] [place] [address] Name: SILVIA STEELE Date of : 1985 12:00 AM Visit Date: 07/17/2015 8:18 AM [facility] Number: [id number] Address: [address] [place] [address] Primary Care Provider: SOFIE VÁZQUEZ MD IMPORTANT: [facility] in [place] would like to thank you for allowing [...] if you dont have one. Go to [email or web address] and click on Create Your Account. Then, follow the directions to complete the online form. Youll be asked for your [facility] number which you can find at the [...] Date Time Provider Signature Date Time Source: [facility] POWERCHART Document Id: [id number] documented in this encounter H&P Notes Niya Flynn L.P.N. - 07/17/2015 8:44 AM CDT Urgent Care Intake Urgent Care Intake Entered On: 07/17/2015 8:46 CDT Performed On: 07/17/2015 8:44 CDT by NIYA FLYNN MANAGER NEWS Intake Chief Complaint : ST-STARTED WEDNESDAY Temperature [...] ft 7 inch(es), 67 inch(es)) NIYA FLYNN MANAGER NEWS - 07/17/2015 8:44 CDT General Info Information Given By : Patient Languages : Maldivian Is Patient Female and 13-50 no hysterectomy [...] None Behavioral Health Screen/Safety Assmt : No Mandaeism Preference : No Mandaeism Affiliation NIYA FLYNN Jess SANABRIA - 07/17/2015 8:44 CDT Advance Directive Advanced Directives : No Advance Directive Additional Information : No NIYA FLYNN LPN - 07/17/2015 8:44 CDT Educ Needs Learning Style Preference Adult Grid Patient : Printed materials Family : None NIYA FLYNN Jess SANABRIA - 07/17/2015 8:44 CDT Source: [facility] Document Id: [id number] CDT!54 documented in this encounter ED Notes Niya Flynn L.P.N. - 07/17/2015 8:54 AM CDT ED Disposition Summary ED Disposition Summary Entered On: 07/17/2015 8:54 CDT Performed On: 07/17/2015 8:54 CDT by NIYA FLYNN LPN ED Disposition Summary Printed Discharge Instructions Given to Patient : Yes NIYA FLYNN LPN - 07/17/2015 8:54 CDT [facility] Document Id: [id number] CDT!3 Nola La R.N. - 07/17/2015 8:21 [...] Code: NKP ; Last Updated: 05/15/2013 16:30 WAREHOUSE ADMINISTRATIVE ASSISTANT; Life Cycle Date: 05/15/2013 ; Life Cycle Status: Active ; Vocabulary: Karen Diagnoses(Active) Throat pain - Adult Date: 07/17/2015 ; Diagnosis Type: Reason For Visit ; Confirmation: Complaint of; Clinical Dx: Throat pain - Adult ; Classification: Medical ; Clinical Service: Non-Specified ; Code: PNED ; Probability: 0 ; Diagnosis Code: [id number] Triage Chief Complaint Description : Pt arrives [...] Private vehicle Track : Medical Languages : Maldivian Treatments Prior to Arrival : Home treatments [...] 4 -Less Urgent Tracking Group : ED/ NOLA LA RN - 07/17/2015 8:22 CDT Source: [facility] Document Id: [id number] CDT!24 documented in this encounter Miscellaneous Notes Miscellaneous - Kaylene Archibald C.N.P., R.N. - 07/17/2015 12:00 AM CDT [id number] Into a subject which is going to [...] airway. I did call ENT Department in [place] and our ENT provider is in surgery today and tomorrow and has no available appointments for this patient, so I have called [facility], Triage Room and spoke with YANELI Ashford. He has Silvia's information and Silvia will have her drive her to the Emergency Room at [facility] where she will be seen today by ENT for further evaluation and treatment. Silvia is very happy with this. Patient's airway is patent. She should be in no danger to drive directly or have her drive directly to [facility]. If she should have any problems with [...] should have no difficulty with travels to [facility]. Patient was given the last Emergency Room notes to take with her to [facility]. Patient is happy with this plan. Kaylene Archibald R.N., C.N.P./guillermo Electronically Signed By: KAYLENE ARCHIBALD CNP On: 07/17/2015 02:03 PM Source: [facility] Document Id: [id number] documented in this encounter Plan of Treatment Not on filedocumented as of this encounter Visit Diagnoses Not on filedocumented in this encounter
--- OUTSIDE RECORDS SUMMARY | 2022-02-12 14:30 | XMS_ITS | Encounter Summary ---
:1985 Author Organization [facility] Address [address] [place] [address] Care Team Providers Name Role Phone Unavailable Primary Care Provider Unavailable Encounter Details Date Type Department Care Team Description 03/03/2015 Hospital Encounter HX [facility] Nicole Hill M.D. [address] [place] [phone] (Wo rk) Social History Tobacco Use Types Packs/Day Years Used Date Smoking Tobacco: Never Assessed Sex Assigned at Date Recorded Not on file documented as of this encounter Last Filed Vital Signs Vital Sign Reading Time Taken Comments Blood Pressure - - Pulse 90 03/03/2015 12:12 PM VEHICLE UPHOLSTERER Temperature - - Respiratory Rate 18 03/03/2015 12:12 PM VEHICLE UPHOLSTERER Oxygen Saturation - - Inhaled Oxygen Concentration - - Weight - - Height 169 cm (5' 6.54) 03/03/2015 12:12 PM VEHICLE UPHOLSTERER Body Mass Index - - documented in this encounter Discharge Summaries Isabella Currie, L.P.N. - 03/03/2015 2:15 PM CST ED Discharge Instructions [facility] [address] [place] [address] Name: SILVIA MAY Date of : 1985 12:00 AM Visit Date: 03/03/2015 11:24 AM [facility] Number: [id number] Address: [address] [place] [address] Primary Care Provider: SOFIE VÁZQUEZ MD IMPORTANT: [facility] in [place] would like to thank you for allowing us to assist youwith your healthcare needs. The following includes patient education materials and information regarding your injury/illness. Diagnosis: Follow-Up Instructions: With: Address: When: SOFIE VÁZQUEZ [address] [place] [phone] Business (1) Within As Needed Your Upcoming [...] you dont have one. Go to [email or web address] and click on Create Your Account. Then, follow the directions to complete the online form. Youll be asked for your [facility] number which you can find at [...] Date Time Provider Signature Date Time Source: [employer] Document Id: [id number] CLE UPHOLSTERER Isabella Currie L.P.N. - 03/03/2015 2:15 PM CST ED Depart Summary [facility] Emergency Department / Urgent Care Clinical Discharge Summary PERSON INFORMATION Name SILVIA MAY Age 29 Years 1985 12:00 AM Sex Female Language Slovenian PCP SOFIE VÁZQUEZ MD Marital Status Single N [id number] Visit Id Visit Reason Facial pain; Nasal injury; NOSE PAIN Specialty [facility] Outpatient Med Service Urgent Care Referred by [facility] ED/UC Discharge 03/03/2015 2:15 PM Tracking Id [id number] Checkout 03/03/2015 2:15 PM Checkin 03/03/2015 11:24 AM Acuity 4 -Less Urgent Dispo Type * Discharged to Home or Self Care Arrival 03/03/2015 11:24 AM Reg Status Complete LOS 000 02:51 Address: [address] [place] [address] Comment: PROVIDER INFORMATION Provider Role Provider Contact Time DAYAN CHEUNG HOUSING MANAGEMENT OFFICER ED Provider 03/03/15 12:12 NIYA FLYNN LPN ED Nurse 03/03/15 12:12 DIAGNOSIS Comment: PATIENT EDUCATION INFORMATION Instructions: Follow up: With: Address: When: SOFIE VÁZQUEZ [address] [place] [phone] Business (1) Within As Needed [facility] Document Id: [id number] CLE UPHOLSTERER documented in this encounter H&P Notes Niya Flynn L.P.N. - 03/03/2015 12:12 PM CST Urgent Care Intake Urgent Care Intake Entered On: 03/03/2015 12:13 VEHICLE UPHOLSTERER Performed On: 03/03/2015 12:12 VEHICLE UPHOLSTERER by NIYA FLYNN LPN Intake Chief Complaint : NOSE INJURY Onset of Symptoms : LAST NIGHT LMP Date : 03/03/15 Temperature Core : 36.6 DegC(Converted to: 97.9 DegF) Peripheral Pulse Rate : 90 /min Respiratory Rate : 18 /min Height : 169 cm(Converted to: 5 ft 7 inch(es), 67 inch(es)) NIYA FLYNN LPN - 03/03/2015 12:12 VEHICLE UPHOLSTERER General Info Information Given By : Patient Languages : Slovenian Is Patient Female and 13-50 no hysterectomy : Yes Status : Patient denies Are you ? : No NIYA FLYNN LPN - 03/03/2015 12:12 VEHICLE UPHOLSTERER Subjective Pain Symptoms : Yes NIYA FLYNN LPN - 03/03/2015 12:12 VEHICLE UPHOLSTERER Pain Scale Pain Scale Verbal 0-10 : Open NIYA FLYNN LPN - 03/03/2015 12:12 VEHICLE UPHOLSTERER Pain Pain Assessment Grid Pain 1 Location : Nose Laterality : Right Intensity : 7 NIYA FLYNN LPN - 03/03/2015 12:12 VEHICLE UPHOLSTERER Dependent Habits Tobacco Use/Currently Using : No Exposure to Tobacco Smoke : Patient smokes, Other: occ alcohol Smoking Status : Never smoker NIYA FLYNN LPN - 03/03/2015 12:12 VEHICLE UPHOLSTERER Caffeine Use Grid Caffeine Use : None NIYA FLYNN LPN - 03/03/2015 12:12 VEHICLE UPHOLSTERER Nutrition Nutrition Risk Factors by History Adult : None NIYA FLYNN LPN - 03/03/2015 12:12 VEHICLE UPHOLSTERER Functional Current Daily Living Assistance : None NIYA FLYNN LPN - 03/03/2015 12:12 VEHICLE UPHOLSTERER Psychosocial Domestic Abuse Concerns : None Behavioral Health Screen/Safety Assmt : No Yazdanism Preference : No Yazdanism Affiliation NIYA FLYNN LPN - 03/03/2015 12:12 VEHICLE UPHOLSTERER Advance Directive Advanced Directives : No Advance Directive Additional Information : No NIYA FLYNN LPN - 03/03/2015 12:12 VEHICLE UPHOLSTERER Educ Needs Learning Style Preference Adult Grid Patient : Printed materials Family : None NIYA FLYNN Jess SANABRIA - 03/03/2015 12:12 VEHICLE UPHOLSTERER Source: [employer] Document Id: [id number] VEHICLE UPHOLSTERER!47 CLE UPHOLSTERER documented in this encounter ED Notes Isabella Currie L.P.N. - 03/03/2015 2:14 PM CST ED Disposition Summary ED Disposition Summary Entered On: 03/03/2015 14:15 VEHICLE UPHOLSTERER Performed On: 03/03/2015 14:14 VEHICLE UPHOLSTERER by ISABELLA CURRIE LPN ED Disposition Summary Accompanied By : Alone Discharge From ED With : Home Med List Printed Discharge Instructions Given to Patient : Yes ISABELLA CURRIE LPN - 03/03/2015 14:14 VEHICLE UPHOLSTERER Source: [employer] Document Id: [id number] VEHICLE UPHOLSTERER!5 CLE UPHOLSTERER Dyaan Cheung R.N., N.P. - 03/03/2015 1:23 PM CST Nasal injury, Facial pain Patient: SILVIA MAY Age: 29 years Sex: Female : 1985 Author: DAYAN CHEUNG HOUSING MANAGEMENT OFFICER Attachments: None Basic Information Additional information: Chief Complaint from Nursing Triage Note : Chief Complaint Description 03/03/2015 11:26 VEHICLE UPHOLSTERER Chief Complaint Description Pt arrives reporting hitting [...] PowerChart. Cytopathology, slides, cervical or vaginal ([facility]); manual screening under physician supervision.. (05408) in the week of 03/10/2004 at 18 Years. Comments: 04/18/2010 21:45 - [place] Hx: [id number] - LAB-CYTOPATH, SM,D/V,TDS<3SM TECH 03/21/2013 17:41 - Contributor source changed to PowerChart.. Physical Examination Vital Signs: Vital Signs 03/03/2015 12:12 VEHICLE UPHOLSTERER Temperature Core 36.6 DegC Peripheral Pulse Rate [...] DAYAN CHEUNG On: 03/03/2015 02:14 PM Source: [facility] POWERCHART Document Id: [id number] CLE UPHOLSTERER Franca Brito R.NEmeka - 03/03/2015 11:26 AM CST ED Triage Assessment Document Has Been Updated ED Triage Assessment Entered On: 03/03/2015 11:27 VEHICLE UPHOLSTERER Performed On: 03/03/2015 11:26 VEHICLE UPHOLSTERER by FRANCA BRITO RN Reason For Visit (As Of: 03/03/2015 11:27:57 VEHICLE UPHOLSTERER) Problems(Active) No Chronic Problems (Cerner :NKP ) Name of Problem: No Chronic Problems ; Recorder: NATY XIE MD; Confirmation: Confirmed ; Classification: Medical ; Code: NKP ; Last Updated: 05/15/2013 16:30 VEHICLE UPHOLSTERER; Life Cycle Date: 05/15/2013 ; Life Cycle Status: Active ; Vocabulary: Cerner Diagnoses(Active) Nasal injury Date: 03/03/2015 ; Diagnosis Type: Reason For Visit ; Confirmation: Complaint of ; Clinical Dx: Nasal injury ; Classification: Medical ; Clinical Service: Emergency medicine ; Code: PNED ;Probability: 0 ; Diagnosis Code: [id number] Triage Chief Complaint Description : Pt arrives reporting hitting nose yesterday. bruising on right side ofnose. Information Given By : Patient Accompanied By : Alone Mode of Arrival ED : Private vehicle Track : Trauma Other Languages : Slovenian Patient Informed of Triage Location : Urgent Care Treatments Prior to Arrival : None Are you ? : No Is Patient Female and 13-50 no hysterectomy : Yes Status : Patient denies FRANCA BRITO RN - 03/03/2015 11:26 VEHICLE UPHOLSTERER Pain Assessment Pain Symptoms : Yes FRANCA BRITO RN - 03/03/2015 11:26 VEHICLE UPHOLSTERER Pain Scale Pain Scale Verbal 0-10 : Open FRANCA BRITO RN - 03/03/2015 11:26 VEHICLE UPHOLSTERER Pain Pain Assessment Grid Pain 1 Location : Nose Laterality : Right FRANCA BRITO RN - 03/03/2015 11:26 VEHICLE UPHOLSTERER DENNY DENNY Level 1 : No DENNY Level 2 : No DENNY Level 3 : One FRANCA BRITO RN - 03/03/2015 11:26 VEHICLE UPHOLSTERER DCP GENERIC CODE Tracking Acuity : 4 -Less Urgent Tracking Group : [facility] ED/UC FRANCA BRITO RN - 03/03/2015 11:26 VEHICLE UPHOLSTERER Source: [facility] [employer] Document Id: [id number] VEHICLE UPHOLSTERER!29 CLE UPHOLSTERER documented in this encounter Plan of Treatment Not on filedocumented as of this encounter Procedures Procedure Name Priority Date/Time Associated Diagnosis Comme nts DX NASAL BONES 3+ Routine 03/03/2015 2:39 PM Resu lts for this VIEWS VEHICLE UPHOLSTERER procedure are i n the results section. documented in this encounter Results DX Nasal Bones 3+ Views (03/03/2015 2:39 PM VEHICLE UPHOLSTERER) Anatomical Region Laterality Modality Skull N/A Radiographic Imaging Specimen (Source) Anatomical Collection Method Collection Time Re ceived Time Location / / Volume Laterality 03/03/2015 2:39 PM VEHICLE UPHOLSTERER Impressions 03/04/2015 6:07 AM VEHICLE UPHOLSTERER No fracture by plain radiography. Slight deviation of the nasal septum to the right. Narrative 03/04/2015 6:07 AM VEHICLE UPHOLSTERER EXAM: XR Nasal Bones 3 or more [...]
--- OUTSIDE RECORDS SUMMARY | 2022-02-12 14:30 | XMS_ITS | Encounter Summary ---
:1985 Author Organization [facility] Address [address] [place] [id number] Care Team Providers Name Role Phone Unavailable Primary Care Provider Unavailable Encounter Details Date Type Department Care Team Description 04/02/2015 Hospital Encounter HX [facility] ED Tyson Joel M.D. Social History Tobacco Use Types Packs/Day Years Used Date Smoking Tobacco: Never Assessed Sex Assigned at Date Recorded Not on file documented as of this encounter Last Filed Vital Signs Vital Sign Reading Time Taken Comments Blood Pressure 128/83 04/02/2015 10:00 PM [employer] Pulse 93 04/02/2015 10:00 PM [employer] Temperature - - Respiratory Rate 18 04/02/2015 10:00 PM [employer] Oxygen Saturation - - Inhaled Oxygen Concentration - - Weight - - Height - - Body Mass Index - - documented in this encounter Discharge Summaries Jonas El, REmekaN. - 04/02/2015 10:42 PM CST [place] [address] Name: SILVIA STEELE Date of : 1985 12:00 AM Visit Date: 04/02/2015 9:46 PM [facility] Number: [id number] Address: [address] [place] [id number] Primary Care Provider: SOFIE VÁZQUEZ MD IMPORTANT: [facility] in [place] would like to thank you for allowing us to assist youwith your healthcare needs. The following includes patient education materials and information regarding your injury/illness. Diagnosis: Pharyngitis (Ph) Acute Follow-Up Instructions: With: Address: When: Return to Emergency Department Within As Needed With: Address: When: SOFIE VÁZQUEZ [address] [place] [address] [phone] Business (1) Within As Needed Your Upcoming [...] ?? Muffled voice ?? New rash ?? [id number] Lennie Swain, [address] [place] [address], [place] [address]. All rights reserved. This information is not [...] you dont have one. Go to [email or web address] and click on Create Your Account. Then, follow the directions to complete the online form. Youll be asked for your [facility] number which you can find at the top of this document. ED Tests and Procedures: Order Status Strep A Screen Rapid Completed Rapid Strep Confirmation Ordered Discharge Prescriptions & Home Medications: Medication/Strength Dose Route Frequency Indications/Special Instructions/Comments/Notes [id number] topical (Lidoderm 5% topical film) 1 patch(es) [...] document has images extracted. Please consider using [employer] for all your patient education needs. Source: [facility] Indicative SoftwareCHART Document Id: [id number] [employer] Jonas El, REmekaN. - 04/02/2015 10:42 PM CST ED Depart Summary [facility] Emergency Department / Urgent Care Clinical Discharge Summary PERSON INFORMATION Name SILVIA STEELE Age 29 Years 1985 12:00 AM Sex Female Language Filipino PCP SOFIE VÁZQUEZ MD Marital Status Single Visit Id Visit Reason Throat pain - Adult; BODY ACHES, SORE THROAT, Specialty Enc Type Emergency Med Service Emergency Medicine Referred by Track Group [facility] ED/UC Discharge 04/02/2015 10:35 PM Tracking Id [id number] Checkout 04/02/2015 10:35 PM Checkin 04/02/2015 9:46 PM Acuity 4 -Less Urgent Dispo Type * Discharged to Home or Self Care Arrival 04/02/2015 9:46 PM Reg Status Complete LOS 000 00:49 Address: [address] [place] [id number] Comment: PROVIDER INFORMATION Provider Role Provider Contact Time JONAS EL ED Nurse 04/02/15 21:55 TYSON JOEL MD ED Provider 04/02/15 21:56 DIAGNOSIS Pharyngitis (Ph) Acute Comment: PATIENT EDUCATION INFORMATION Instructions: PHARYNGITIS, Viral Follow up: With: Address: When: Return to Emergency Department Within As Needed With: Address: When: SOFIE VÁZQUEZ [address] [place] [address] [phone] Business (1) Within As Needed Source: [employer] Document Id: [id number] [employer] documented in this encounter ED Notes Jonas El R.N. - 04/02/2015 10:35 PM CST ED Disposition Summary ED Disposition Summary Entered On: 04/02/2015 22:42 [employer] Performed On: 04/02/2015 22:35 [employer] by JONAS EL ED Disposition Summary Accompanied By : Alone Mode of Discharge : Ambulatory Transportation : Private vehicle Printed Discharge Instructions Given to Patient : Yes Patient Status at Discharge from ED : Improved JONAS EL - 04/02/2015 22:38 [employer] Source: [employer] Document Id: [id number] [employer] Jonas El R.N. - 04/02/2015 10:35 PM CST ED Pain Assessment ED Pain Assessment Entered On: 04/02/2015 22:42 [employer] Performed On: 04/02/2015 22:35 [employer] by JONAS EL Pain Assessment Pain Symptoms : Yes JONAS EL - 04/02/2015 22:42 [employer] Pain Scale Pain Scale Verbal 0-10 : Open JONAS EL - 04/02/2015 22:42 [employer] Pain Pain Assessment Grid Pain 1 Location : Throat Intensity : 3 Acceptable Intensity : 3 JONAS EL - 04/02/2015 22:42 [employer] Source: [facility] POWERCHART Document Id: [id number] [employer] Tyson Joel M.D. - 04/02/2015 10:26 PM CST Throat pain - Adult Patient: SILVIA STEELE Age: 29 years Sex: Female : 1985 Author: TYSON JOEL MD Attachments: None Associated Diagnosis: Pharyngitis (Ph) Acute Basic Information Additional information: Chief Complaint from Nursing Triage Note : Chief Complaint Description 04/02/2015 22:00 [employer] Chief Complaint Description Pt presents with sore [...] PowerChart. Cytopathology, slides, cervical or vaginal (the Tenstrike System); manual screening under physician supervision.. ([id number]) in the week of 03/10/2004 at 18 Years. Comments: 04/18/2010 21:45 - CARMEN MORALES Hx: [id number] - LAB-CYTOPATH, SM,D/V,TDS<3SM TECH 03/21/2013 17:41 - Contributor source changed to PowerChart.. Family history: No family history items have been selected or recorded.. Physical Examination Vital Signs: Vital Signs 04/02/2015 22:00 [employer] Temperature Core 37.2 DegC Peripheral Pulse Rate [...] Discharge ED Patient (Order Processing): 04/02/2015 22:32 [employer], Once. Electronically Signed By: TYSON JOEL MD On: 04/02/2015 10:33 PM [facility] Document Id: [id number]} [employer] Jonas El, R.N. - 04/02/2015 10:00 PM CST ED Primary Assessment Document Has Been Updated ED Primary Assessment Entered On: 04/02/2015 22:03 [employer] Performed On: 04/02/2015 22:00 [employer] by JONAS EL Reason For Visit (As Of: 04/02/2015 22:03:43 [employer]) Problems(Active) No Chronic Problems (Cerner :NKP ) Name of Problem: No Chronic Problems ; Recorder: NATY XIE MD; Confirmation: Confirmed ; Classification: Medical ; Code: NKP ; Last Updated: 05/15/2013 16:30 [employer]; Life Cycle Date: 05/15/2013 ; Life Cycle Status: Active ; Vocabulary: Cerner Diagnoses(Active) Throat pain - Adult Date: 04/02/2015 ; Diagnosis Type: Reason For Visit ; Confirmation: Complaint of; Clinical Dx: Throat pain - Adult ; Classification: Medical ; Clinical Service: Emergency medicine ; Code: PNED ; Probability: 0 ; Diagnosis Code: [id number] Triage Chief Complaint Description : Pt presents with sore throat for 3 days. Difficulty swallowing. Body aches but no fever. Last urination 1.5 hours ago. Cap refill less than 3. Information Given By : Patient Accompanied By : Alone Mode of Arrival ED : Private vehicle Track : Medical Languages : Filipino Patient Informed of Triage Location : Emergency department Vital Signs Assessed : Yes GCS Assessed : Yes Treatments Prior to Arrival : None Are you ? : No Is Patient Female and 13-50 no hysterectomy : Yes Status : Patient denies CRISTINA 04/02/2015 22:00 [employer] Vital Signs Temperature Core : 37.2 DegC(Converted to: 99.0 DegF) Peripheral Pulse Rate : 93 /min Respiratory Rate : 18 /min Systolic Blood Pressure : 128 mmHg Diastolic Blood Pressure : 83 mmHg NIBP Mean : 98 mmHg SpO2 : 97 % Oxygen Therapy : Room air CRISTINA 04/02/2015 22:00 [employer] [place] Coma Eye Opening Response Blanco : Spontaneously Best Verbal Response [place] : Oriented Best Motor Response [place] : Obeys simple commands Blanco Coma Score : 15 CRISTINA 04/02/2015 22:00 [employer] Pain Assessment Pain Symptoms : Yes CRISTINA 04/02/2015 22:00 [employer] Pain Scale Pain Scale Verbal 0-10 : Open CRISTINA 04/02/2015 22:00 [employer] Pain Pain Assessment Grid Pain 1 Location : Throat Intensity : 4 Acceptable Intensity : 4 CRISTINA04/02/2015 22:00 [employer] Comfort Measures Comfort Measures Grid Relaxation : Yes Rest : Yes CRISTINA 04/02/2015 22:00 [employer] Comfort Measures Response : Comfort level increased CRISTINA 04/02/2015 22:00 [employer] DENNY DENNY Level 1 : No DENNY Level 2 : No DENNY Level 3 : One CRISTINA 04/02/2015 22:00 [employer] DCP GENERIC CODE Tracking Acuity : 4 -Less Urgent Tracking Group : [facility] ED/UC CRISTINA04/02/2015 22:00 [employer] Allergy (As Of: 04/02/2015 22:03:43 [employer]) Allergies (Active) NKA Estimated Onset Date: Unspecified ; Created By: KATIE BRUNNER MD; Reaction Status: Active ; Category: Drug ; Substance: NKA ; Type: Allergy ; Updated By: KATIE BRUNNER MD; Reviewed Date: 04/02/2015 22:02 [employer] Respiratory Airway : Patent Respirations : Unlabored Respiratory Pattern : Regular Oxygen Therapy : Room air Respiratory Detailed Assessment : Yes RENETTA ELY 04/02/2015 22:00 [employer] Resp Detailed Respiratory Patient Stated Symptoms : None Distress : None Cough : None RENETTA EL04/02/2015 22:00 [employer] Breath Sounds Assessment Grid BRIGIDO : Clear RUL : Clear RML : Clear LLL : Clear RLL : Clear CRISTINA JONAS - 04/02/2015 22:00 [employer] Cardiovascular Heart Rhythm : Regular Skin Color : Normal for ethnicity Skin Description : Dry Skin Temperature : Warm JONAS EL 04/02/2015 22:00 [employer] Neurological Last Well Time Known : Not applicable Level of Consciousness : Alert Orientation : Oriented x 3 Characteristics of Speech : Clear JONAS EL 04/02/2015 22:00 [employer] ED Psychosocial Affect/Behavior : Calm Domestic Abuse Concerns : None Behavioral Health Screen/Safety Assmt : No CRISTINA JONAS 04/02/2015 22:00 [employer] Gastrointestinal Nutrition ED : Adequate GI Detailed Assessment : Yes CRISTINA JONAS 04/02/2015 22:00 [employer] GI Detailed GI Patient Stated Symptoms : Loss of appetite CRISTINA JONAS - 04/02/2015 22:00 [employer] /OB Assessment Patient Stated Symptoms : None RENETTA ELY 04/02/2015 22:00 [employer] Musculoskeletal Fall Prevention Education Provided : ANTONIO CRISTINA JONAS - 04/02/2015 22:00 [employer] EENT Mouth and Throat Symptoms : Other: Throat pain CRISTINARENETTA04/02/2015 22:00 [employer] Social Habits Exposure to Tobacco Smoke : Patient smokes, Other: occ alcohol Smoking Status : Current every day smoker Tobacco 2A : Yes Tobacco Use/Currently Using : Yes Tobacco Use/Last 30 Days : Yes Tobacco Use/Last 12 months : Yes Type : Cigarettes: Less than 20 per day Tobacco Use/Advised to Quit : Yes JONAS EL 04/02/2015 22:00 [employer] Source: [facility] POWERCHART Document Id: [id number] [employer] documented in this encounter Miscellaneous Notes Miscellaneous - Jonas El R.N. - 04/02/2015 10:35 PM CST Valuables/Belongings Valuables/Belongings Entered On: 04/02/2015 22:42 [employer] Performed On: 04/02/2015 22:35 [employer] by JONAS EL Valuables/Belongings Valuables/Belongings Grid Valuables with Patient Clothes, Patient Valuables : Pants, Shirt, Shoes, Undergarments JONAS EL - 04/02/2015 22:42 [employer] Room Orientation/Facility Policy Reviewed : Yes Home Medication Disposition : None brought in with patient JONAS EL - 04/02/2015 22:42 [employer] Source: [employer] Document Id: [id number] [employer] Miscellaneous - Conversion, Historical Provider Ser - 04/02/2015 10:35 PM [employer] Coding Summary-Paper Based CODING DATE: 04/10/2015 FINAL [facility] STATUS: * Discharged to [...] MAGANA Date Saved: 04/10/2015 09:29 am Source: [employer] Document Id: [id number] documented in this encounter Plan of Treatment Not on filedocumented as of this encounter Procedures Procedure Name Priority Date/Time Associated Diagnosis Comme nts RAPID STREP A Routine 04/02/2015 10:05 PM Results for this SCREEN [employer] procedure are i n the results section. RAPID STREP A Routine 04/02/2015 10:05 PM Results for this SCREEN [employer] procedure are i n the results section. documented in this encounter Results Rapid Strep A Screen (04/02/2015 10:05 PM [employer]) [facility] Method Time Signature HXRapid Strep POWERCHART Confirmation HXPre Negative for POWERCHART Group A Strep by culture. HXFinal Negative for POWERCHART Group A Strep by culture. Specimen Anatomical Collection Method Collection Time Receive d Time (Source) Location / / Volume Laterality Throat 04/02/2015 10:05 04/02/2015 PM [employer] 10:05 PM [employer] Tyson Joel M.D. LAB MICROBIOLOGY - GENERAL [place] Performing Organization Address City/[facility] Code Phon e Number POWERCHART Rapid Strep A Screen (04/02/2015 10:05 PM [employer]) [facility] Method Time Signature HXStrep A POWERCHART Screen Rapid HXFinal Negative for POWERCHART Strep Group A by rapid screen. HXFinal Culture POWERCHART confirmation to follow. Specimen (Source) Anatomical Collection Method Collection Time Re ceived Time Location / / Volume Laterality Throat 04/02/2015 10:05 PM [employer] Tyson Joel M.D. LAB MICROBIOLOGY - GENERAL [place] Performing Organization Address City/State/ZIP Code Phon e Number POWERCHART documented in this encounter Visit Diagnoses Not on filedocumented in this encounter
--- OUTSIDE RECORDS SUMMARY | 2022-02-12 14:30 | XMS_ITS | Encounter Summary ---
:1985 Author Organization [facility] Address [address] [place] [address] Care Team Providers Name Role Phone Unavailable Primary Care Provider Unavailable Encounter Details Date Type Department Care Team Description 07/11/2015 Hospital Encounter HX [facility] [address] Pepper ED, M.D. [address] [place] [phone] (Wo rk) Social History Tobacco Use Types Packs/Day Years Used Date Smoking Tobacco: Never Assessed Sex Assigned at Date Recorded Not on file documented as of this encounter Last Filed Vital Signs Vital Sign Reading Time Taken Comments Blood Pressure 131/88 07/11/2015 10:02 AM ENROLLMENT PROCESSOR Pulse 101 07/11/2015 10:02 AM ENROLLMENT PROCESSOR Temperature - - Respiratory Rate 22 07/11/2015 10:02 AM ENROLLMENT PROCESSOR Oxygen Saturation - - Inhaled Oxygen Concentration - - Weight - - Height - - Body Mass Index - - documented in this encounter Discharge Summaries Jonas Evans, R.N. - 07/11/2015 11:03 AM CST ED Discharge Instructions [facility] [address] [facility] [place] [address] Name: SILVIA STEELE Date of : 1985 12:00 AM Visit Date: 07/11/2015 9:53 AM [facility] Number: [id number] Address: [address] [place] [address] Primary Care Provider: SOFIE VÁZQUEZ MD IMPORTANT: [facility] in [place] would like to thank you for allowing us to assist youwith your healthcare needs. The following includes patient education materials and information regarding your injury/illness. Diagnosis: Follow-Up Instructions: With: Address: When: SOFIE VÁZQUEZ [address] [place] [phone] Business (1) Within As Needed Comments: Continue [...] ?? Muffled voice ?? New rash ?? [id number] [facility], [address] [place] [address], [place] [address]. All rights reserved. This information is not [...] have one. Go to [email or web address] and click on Create Your Account. Then, follow the directions to complete the online form. Youll be asked for your [facility] number which you can find [...] document has images extracted. Please consider using [employer] for all your patient education needs. Source: [facility] POWERCHART Document Id: [id number] LLMENT PROCESSOR Jonas Evans, REmekaNEmeka - 07/11/2015 11:03 AM CST ED Depart Summary [facility] Emergency Department / Urgent Care Clinical Discharge Summary PERSON INFORMATION Name SILVIA STEELE Age 30 Years 1985 12:00 AM Sex Female Language Cambodian PCP SOFIE VÁZQUEZ MD Marital Status Single N [id number] Visit Id Visit Reason Throat pain - Adult; RECHECK Specialty Enc Type Emergency Med Service Emergency Medicine Referred by [facility] [facility] ED/UC Discharge 07/11/2015 11:03 AM Tracking Id [id number] Checkout 07/11/2015 11:03 AM Checkin 07/11/2015 9:53 AM Acuity 3 -Urgent Dispo Type * Discharged to Home or Self Care Arrival 07/11/2015 9:53 AM Reg Status Complete LOS 000 01:10 Address: [facility] [address] [place] [address] Comment: PROVIDER INFORMATION Provider Role Provider Contact Time LANE SHI MD ED Provider 07/11/15 10:02 JONAS EVANS ED Nurse 07/11/15 10:08 DIAGNOSIS Comment: PATIENT EDUCATION INFORMATION Instructions: PHARYNGITIS, Strep (Confirmed) Follow up: With: Address: When: SOFIE VÁZQUEZ [address] [place] [phone] Business (1) Within As Needed Comments: Continue salt water gargles 5 to6 times a day Ibuprofen and oxycodone for pain Continue abx and prednisone Return if worse follwo in clinic if concerns Source: [employer] Document Id: [id number] LLMENT PROCESSOR documented in this encounter ED Notes Jonas Evans RDevendra - 07/11/2015 11:03 AM CST ED Pain Assessment ED Pain Assessment Entered On: 07/11/2015 11:03 ENROLLMENT PROCESSOR Performed On: 07/11/2015 11:03 ENROLLMENT PROCESSOR by JONAS EVANS Pain Assessment Pain Symptoms : Yes JONAS EVANS - 07/11/2015 11:03 ENROLLMENT PROCESSOR Pain Scale Pain Scale Verbal 0-10 : Open JONAS EVANS - 07/11/2015 11:03 ENROLLMENT PROCESSOR Pain Pain Assessment Grid Pain 1 Location : Throat Intensity : 6 Acceptable Intensity : 6 JONAS EVANS - 07/11/2015 11:03 ENROLLMENT PROCESSOR [facility] Document Id: [id number] ENROLLMENT PROCESSOR!11 LLMENT PROCESSOR Jonas Evans R.N. - 07/11/2015 11:02 AM CST ED Disposition Summary ED Disposition Summary Entered On: 07/11/2015 11:02 ENROLLMENT PROCESSOR Performed On: 07/11/2015 11:02 ENROLLMENT PROCESSOR by JONAS EVANS ED Disposition Summary Present [...] in hand. JONAS EVANS - 07/11/2015 11:02 ENROLLMENT PROCESSOR Source: [employer] Document Id: [id number] ENROLLMENT PROCESSOR![address] Shi M.D. - 07/11/2015 10:38 AM CST Throat pain - Adult Patient: SILVIA STEELE Age: 30 years Sex: Female : 1985 Author: LANE SHI MD Attachments: None Basic Information Additional information: Chief Complaint from Nursing Triage Note : Chief Complaint Description 07/11/2015 10:03 ENROLLMENT PROCESSOR Chief Complaint Description Pt presents for a recheck of strep throat that she was placed on antibiotics for. Was seen yesterday morning and this nurse saw her. States, I'm feeling better, it still hurts a lot. Originally, voice was muffled and pt was crying due to pain. Now, voic 07/11/2015 10:01 ENROLLMENT PROCESSOR Chief Complaint Description Pt arrives report was seen a few days ago and was dx with strep and swollen tonsils with inability to swallow saliva. Advised if not better to come backto ED for draining of tonsils. 07/10/2015 7:24 ENROLLMENT PROCESSOR Chief Complaint Description Pt states she was [...] Examination Vital Signs: Vital Signs 07/11/2015 10:02 ENROLLMENT PROCESSOR Temperature Core 37.4 DegC Peripheral Pulse Rate 101 /min HI Respiratory Rate 22 /min HI SpO2 97 % Systolic Blood Pressure 131 mmHg Diastolic Blood Pressure 88 mmHg BP Location Right upper 07/10/2015 9:08 ENROLLMENT PROCESSOR Pulse SpO2 106 /min SpO2 95 % Systolic Blood Pressure 121 mmHg Diastolic Blood Pressure 72 mmHg Mean Arterial Pressure 85 mmHg 07/10/2015 8:19 ENROLLMENT PROCESSOR Pulse SpO2 125 /min Respiratory Rate 18 /min SpO2 93 % LOW Systolic Blood Pressure 110 mmHg Diastolic Blood Pressure 82 mmHg Mean Arterial Pressure 90 mmHg 07/10/2015 7:24 ENROLLMENT PROCESSOR Temperature Core 37.6 DegC Apical Heart Rate 135 /min HI Respiratory Rate 18 /min SpO2 96 % Systolic Blood Pressure 126 mmHg Diastolic Blood Pressure 93 mmHg >HHI Mean Arterial Pressure 104 mmHg BP Location Right upper , Measurements 07/10/2015 7:24 ENROLLMENT PROCESSOR Height 169 cm , SpO2 07/11/2015 10:02 ENROLLMENT PROCESSOR SpO2 97 % 07/10/2015 9:08 ENROLLMENT PROCESSOR SpO2 95 % 07/10/2015 8:19 ENROLLMENT PROCESSOR SpO2 93 % LOW 07/10/2015 7:24 ENROLLMENT PROCESSOR SpO2 96 % . General: Alert and [...] SHI MD On: 07/11/2015 10:43 AM Source: [facility] POWERCHART Document Id: [id number]} LLMENT PROCESSOR Jonas Evans, R.NEmeka - 07/11/2015 10:03 AM CST ED Primary Assessment Document Has Been Updated ED Primary Assessment Entered On: 07/11/2015 10:22 ENROLLMENT PROCESSOR Performed On: 07/11/2015 10:03 ENROLLMENT PROCESSOR by JONAS EVANS Reason For Visit (As Of: 07/11/2015 10:22:42 ENROLLMENT PROCESSOR) Problems(Active) No Chronic Problems (Cerner :NKP ) Name of Problem: No Chronic Problems ; Recorder: NATY XIE MD; Confirmation: Confirmed ; Classification: Medical ; Code: NKP ; Last Updated: 05/15/2013 16:30 ENROLLMENT PROCESSOR; Life Cycle Date: 05/15/2013 ; Life Cycle Status: Active ; Vocabulary: Katharinener Diagnoses(Active) Throat pain - Adult Date: 07/11/2015 ; Diagnosis Type: Reason For Visit ; Confirmation: Complaint of; Clinical Dx: Throat pain - Adult ; Classification: Medical ; Clinical Service: Emergency medicine ; Code: PNED ; Probability: 0 ; Diagnosis Code: [id number] Triage Chief Complaint Description : Pt presents [...] reports pain. [JONAS EVANS - 07/11/2015 10:13 ENROLLMENT PROCESSOR] ) Information Given By : Patient Present in Room During Exam/Procedure : Son Mode of Arrival ED : Private vehicle Track : Medical Languages : Cambodian Patient Informed of Triage Location : Emergency department [facility]CS Assessed : Yes Treatments Prior to Arrival : None Are you ? : No Is Patient Female and 13-50 no hysterectomy : Yes Status : Patient denies JONAS EVANS - 07/11/2015 10:13 ENROLLMENT PROCESSOR [place] Coma Eye Opening Response Blanco : Spontaneously Best Verbal Response Blanco : Oriented Best Motor Response Blanco : Obeys simple commands [place] Coma Score : 15 JONAS EVANS 07/11/2015 10:13 ENROLLMENT PROCESSOR Pain Assessment Pain Symptoms : Yes JONAS EVANS 07/11/2015 10:13 ENROLLMENT PROCESSOR Pain Scale Pain Scale Verbal 0-10 : Open CRISTINA, 07/11/2015 10:13 ENROLLMENT PROCESSOR Pain Pain Assessment Grid Pain 1 Location : Throat Intensity : 8 Acceptable Intensity : 3 CRISTINA 07/11/2015 10:13 ENROLLMENT PROCESSOR Comfort Measures Comfort Measures Grid [place] Application : Yes Relaxation : Yes Rest : Yes CRISTINA 07/11/2015 10:13 ENROLLMENT PROCESSOR Comfort Measures Response : Comfort level increased CRISTINA 07/11/2015 10:13 ENROLLMENT PROCESSOR DENNY DENNY Level 1 : No DENNY Level 2 : No DENNY Level 3 : Many CRISTINA 07/11/2015 10:13 ENROLLMENT PROCESSOR DCP GENERIC CODE Tracking Acuity : 3 -Urgent Tracking Group : [facility] ED/UC CRISTINA 07/11/2015 10:13 ENROLLMENT PROCESSOR Allergy (As Of: 07/11/2015 10:22:42 ENROLLMENT PROCESSOR) Allergies (Active) NKA Estimated Onset Date: Unspecified ; Created By: KATIE BRUNNER MD; Reaction Status: Active ; Category: Drug ; Substance: NKA ; Type: Allergy ; Updated By: KATIE BRUNNER MD; Reviewed Date: 07/11/2015 10:15 ENROLLMENT PROCESSOR Respiratory Airway : Patent Respirations : Unlabored Respiratory Pattern : Regular Oxygen Therapy : Room air CRISTINA 07/11/2015 10:13 ENROLLMENT PROCESSOR Cardiovascular Heart Rhythm : Regular Skin Color : Normal for ethnicity Skin Description : Dry Skin Temperature : Warm Cardiovascular Detailed Assessment : Yes Monitoring Lead : II, V5/MCL5 Monitoring Lead Machine Tech : Initiated CRISTINA 07/11/2015 10:13 ENROLLMENT PROCESSOR CV Detailed CV Patient Stated Symptoms : None Nail Bed Color : Pe Ell Capillary Refill : Less than 2 seconds Heart Sounds ICU : S1S2 CRISTINA 07/11/2015 10:13 ENROLLMENT PROCESSOR Neurological Last Well Time Known : Not applicable Level of Consciousness : Alert Orientation : Oriented x 3 Characteristics of Speech : Clear Neuro Patient Stated Symptoms : None Gait : Steady Swallowing Difficulty/Aspiration Risk : None CRISTINA 07/11/2015 10:13 ENROLLMENT PROCESSOR ED Psychosocial Affect/Behavior : Calm Domestic Abuse Concerns : None Behavioral Health Screen/Safety Assmt : No CRISTINA 07/11/2015 10:13 ENROLLMENT PROCESSOR Gastrointestinal Nutrition ED : Adequate GI Detailed Assessment : Yes CRISTINA 07/11/2015 10:13 ENROLLMENT PROCESSOR GI Detailed GI Patient Stated Symptoms : Loss of appetite CRISTINA, JONAS - 07/11/2015 10:13 ENROLLMENT PROCESSOR /OB Assessment Patient Stated Symptoms : None CRISTINA JONAS - 07/11/2015 10:13 ENROLLMENT PROCESSOR Musculoskeletal Fall Prevention Education Provided : ANTONIO CRISTINA JONAS - 07/11/2015 10:13 ENROLLMENT PROCESSOR EENT Mouth and Throat Symptoms : Sore throat, Swollen tonsils CRISTINAJONAS - 07/11/2015 10:13 ENROLLMENT PROCESSOR Social Habits Exposure to Tobacco Smoke : Patient smokes, Other: occ alcohol Smoking Status : Current every day smoker Tobacco 2A : Yes Tobacco Use/Currently Using : Yes Tobacco Use/Last 30 Days : Yes Tobacco Use/Last 12 months : Yes Type : Cigarettes: Less than 20 per day Tobacco Use/Advised to Quit : No JONAS EVANS - 07/11/2015 10:13 ENROLLMENT PROCESSOR Alcohol Use Grid Alcohol Use : Yes Frequency : Occasionally JONAS EVANS - 07/11/2015 10:13 ENROLLMENT PROCESSOR Source: [facility] [employer] Document Id: [id number] ENROLLMENT PROCESSOR!96 LLMENT PROCESSOR Franca Brito R.N. - 07/11/2015 10:01 AM CST ED Triage Assessment Document Has Been Updated ED Triage Assessment Entered On: 07/11/2015 10:03 ENROLLMENT PROCESSOR Performed On: 07/11/2015 10:01 ENROLLMENT PROCESSOR by FRANCA BRITO RN Reason For Visit (As Of: 07/11/2015 10:03:26 ENROLLMENT PROCESSOR) Problems(Active) No Chronic Problems (Cerner :NKP ) Name of Problem: No Chronic Problems ; Recorder: NATY XIE MD; Confirmation: Confirmed ; Classification: Medical ; Code: NKP ; Last Updated: 05/15/2013 16:30 ENROLLMENT PROCESSOR; Life Cycle Date: 05/15/2013 ; Life Cycle Status: Active ; Vocabulary: Cerner Diagnoses(Active) Throat pain - Adult Date: 07/11/2015 ; Diagnosis Type: Reason For Visit ; Confirmation: Complaint of; Clinical Dx: Throat pain - Adult ; Classification: Medical ; Clinical Service: Emergency medicine ; Code: PNED ; Probability: 0 ; Diagnosis Code: [id number] Triage Chief Complaint Description : Pt arrives report was seen a few days ago and was dx with strep and swollen tonsils with inability to swallow saliva. Advised if not better to come back to ED for drainingof tonsils. Information Given By : Patient Mode of Arrival ED : Private vehicle Track : Medical Languages : Cambodian Patient Informed of Triage Location : Emergency department Treatments Prior to Arrival : None Are you ? : No Is Patient Female and 13-50 no hysterectomy : Yes Status : Patient denies FRANCA BRITO RN - 07/11/2015 10:01 ENROLLMENT PROCESSOR Pain Assessment Pain Symptoms : Yes FRANCA BRITO RN - 07/11/2015 10:01 ENROLLMENT PROCESSOR Pain Scale Pain Scale Verbal 0-10 : Open FRANCA BRITO RN - 07/11/2015 10:01 ENROLLMENT PROCESSOR Pain Pain Assessment Grid Pain 1 Location : Throat FRANCA BRITO - 07/11/2015 10:01 ENROLLMENT PROCESSOR DENNY DENNY Level 1 : No DENNY Level 2 : No DENNY Level 3 : Many Vital Signs DENNY : No FRANCA BRITO RN - 07/11/2015 10:01 ENROLLMENT PROCESSOR DCP GENERIC CODE Tracking Acuity : 3 -Urgent Tracking Group : [facility] ED/ FRANCA BRITO RN - 07/11/2015 10:01 ENROLLMENT PROCESSOR Source: [employer] Document Id: [id number] ENROLLMENT PROCESSOR!28 LLMENT PROCESSOR documented in this encounter Miscellaneous Notes Miscellaneous - Jonas Evans REmekaNEmeka - 07/11/2015 11:03 AM CST Valuables/Belongings Valuables/Belongings Entered On: 07/11/2015 11:03 ENROLLMENT PROCESSOR Performed On: 07/11/2015 11:03 ENROLLMENT PROCESSOR by JONAS EVANS/Armando Room Orientation/Facility Policy Reviewed : Yes Home Medication Disposition : None brought in with patient JONAS EVANS - 07/11/2015 11:03 ENROLLMENT PROCESSOR [facility] Document Id: [id number] ENROLLMENT PROCESSOR!4 LLMENT PROCESSOR Miscellaneous - Conversion, Historical Provider Ser - 07/11/2015 11:03 AM ENROLLMENT PROCESSOR Coding Summary-Paper Based CODING DATE: 07/26/2015 FINAL [facility] STATUS: * Discharged to [...] GONZALEZ Date Saved: 07/26/2015 11:29 am Source: [facility] POWERCHART Document Id: [id number] documented in this encounter Plan of Treatment Not on filedocumented as of this encounter Visit Diagnoses Not on filedocumented in this encounter
--- OUTSIDE RECORDS SUMMARY | 2022-02-12 14:30 | XMS_ITS | Encounter Summary ---
:1985 Author Organization [facility] Address [address] [place] [address] Care Team Providers Name Role Phone Unavailable Primary Care Provider Unavailable Encounter Details Date Type Department Care Team Description 07/15/2015 Hospital Encounter HX [facility] Sally Azar M.D. Social History Tobacco [...] 07/15/2015 6:59 AM CDT [place] [address] Name: SILVIA MAY Date of : 1985 12:00 AM Visit Date: 07/15/2015 4:53 AM [facility] Number: [id number] Address: [address] [place] [address] Primary Care Provider: SOFIE VÁZQUEZ MD IMPORTANT: [facility] in [place] would like to thank you for allowing [...] Address: When: SOFIE VÁZQUEZ [address] [place] [phone] [facility] (1) Within As Needed Your Upcoming [...] pain or redness in one leg ?? [id number] [place] [address]. All rights reserved. This information is not [...] you dont have one. Go to [email or web address] and click on Create Your Account. Then, follow the directions to complete the online form. Youll be asked for your [facility] number which you can find [...] document has images extracted. Please consider using [employer] for all your patient education needs. Source: [facility] POWERCHART Document Id: [id number] Kylee Woodard RJonathan. - 07/15/2015 6:59 AM CDT ED Depart Summary [facility] Emergency Department / Urgent Care Clinical Discharge Summary PERSON INFORMATION Name SILVIA MAY Age 30 Years 1985 12:00 AM Sex Female Language Zimbabwean PCP SOFIE VÁZQUEZ MD Marital Status Single N [id number] Visit Id Visit Reason Chest pain; CHEST DISCOMFORT Specialty Enc Type Emergency Med Service Emergency Medicine Referred by [facility] Group [facility] ED/UC Discharge 07/15/2015 6:59 AM Tracking Id [id number] Checkout 07/15/2015 6:59 AM Checkin 07/15/2015 4:53 AM Acuity 4 -Less Urgent Dispo Type * Discharged to Home or Self Care Arrival 07/15/2015 4:53 AM Reg Status Complete LOS 000 02:06 Address: [address] [place] [address] Comment: PROVIDER INFORMATION Provider Role Provider Contact Time SALLY LEONARDO MD ED Provider 07/15/15 05:45 KYLEE WOODARD SLICE PLUG CUTTER OPERATOR HELPER Nurse 07/15/15 06:02 DIAGNOSIS Pain Chest (CP) NOS Comment: PATIENT EDUCATION INFORMATION Instructions: CHEST PAIN, Uncertain Cause Follow up: With: Address: When: Follow Up with Primary Care Within 2 - 4 days With: Address: When: Follow Up with Primary Care Within As Needed With: Address: When: SOFIE VÁZQUEZ [address] [place] [phone] Business (1) Within As Needed Source: [employer] [facility] Document Id: [id number] documented in this encounter ED Notes Kylee Woodard R.N. - 07/15/2015 6:58 AM CDT ED Disposition Summary ED Disposition Summary Entered On: 07/15/2015 6:58 CDT Performed On: 07/15/2015 6:58 CDT by KYLEE WOODARD RN ED Disposition Summary Printed Discharge Instructions Given to Patient : Yes Patient Status at Discharge from ED : Improved KYLEE WOODARD RN - 07/15/2015 6:58 CDT Source: [facility] Document Id: [id number] CDT!4 Kylee Woodard R.N. - 07/15/2015 6:58 [...] WOODARD RN - 07/15/2015 6:58 CDT Source: [facility] Document Id: [id number] CDT!11 Kylee Woodard R.N. - 07/15/2015 6:41 [...] WOODARD RN - 07/15/2015 6:41 CDT Source: [facility] Document Id: [id number] CDT!6 Sally Leonardo M.D. - 07/15/2015 6:06 [...] LEONARDO MD On: 07/15/2015 10:44 PM Source: [facility] POWERCHART Document Id: [id number]} Kylee Woodard, R.N. - 07/15/2015 5:01 AM [...] Code: NKP ; Last Updated: 05/15/2013 16:30 PIPED POCKET MACHINE OPERATOR; Life Cycle Date: 05/15/2013 ; Life Cycle Status: Active ; Vocabulary: Cerner Diagnoses(Active) Chest pain Date: 07/15/2015 ; Diagnosis Type: Reason For Visit ; Confirmation: Complaint of ; Clinical Dx: Chest pain ; Classification: Medical ; Clinical Service: Emergency medicine ; Code: PNED ; Probability: 0 ; Diagnosis Code: [id number] Triage Chief Complaint Description : pt presents with chest tightness since 329 Information Given By : Patient Present in Room During Exam/Procedure : Alone Mode of Arrival ED : Private vehicle Track : Medical Languages : Zimbabwean Treatments Prior to Arrival : None Are [...] WOODARD RN - 07/15/2015 5:13 CDT Source: [facility] Document Id: [id number] CDT!63 documented in this encounter Miscellaneous Notes Telephone Encounter - Sivan Allred R.N. - 07/15/2015 12:34 PM CDT Follow Up with Primary Care Entered by SIVAN ALLRED RN on July 15, 2015 12:34:19 CDT Pt has an appt for 3-15 with PCP Follow Up Request: Follow Up with Primary Care Date Requested: July 15, 2015 06:41:28 CDT Ed Location: [facility] ED ED Attending: SALLY LEONARDO MD [...] Address: -- Follow Up Comments: -- Source: [facility] Document Id: [id number] Electronically signed by James, [facility] Senior Sql Server Database Developer [id number] at 09/26/2016 5:04 PM CDT Miscellaneous - Conversion, Historical Provider Ser - 07/15/2015 6:59 AM CDT Coding Summary-Paper Based CODING DATE: 07/30/2015 FINAL [facility] STATUS: * Discharged to Home [...] MAGANA Date Saved: 07/30/2015 08:43 am [facility]: [facility] Document Id: [id number] Olga - Kylee Woodard R.N. - 07/15/2015 6:58 AM CDT Valuables/Belongings Valuables/Belongings Entered On: 07/15/2015 6:58 CDT Performed On: 07/15/2015 6:58 CDT by KYLEE WOODARD RN Valuables/Belongings Home Medication Disposition : None brought in with patient KYLEE WOODARD RN - 07/15/2015 6:58 CDT Source: [facility] Document Id: [id number] CDT!3 Olga - Sally Leonardo M.D. - 07/15/2015 6:46 AM CDT Work Excuse July 15, 2015 [address] MAY [address] [place] [address] Dear SILVIA MAY, You were examined in [...] _ Sincerely, SALLY LEONARDO [address] [place] [address] Electronic Signature Electronically Signed By: SALLY LEONARDO MD On: July 15, 2015 This document has images extracted. Source: [facility] POWERCHART Document Id: [id number] Electronically signed by Conversion, [facility] Senior Sql Server Database Developer [id number] at 09/26/2016 5:04 PM CDT documented in [...] Volume Laterality 07/15/2015 5:34 AM CDT Narrative [employer] [facility] - 07/15/2015 5:34 AM CDT [...] Organization Address City/State/ZIP Code Phon e Number [facility] [address] [place] [address] DX Chest Anterior Posterior or Posterior Anterior [...]
--- OUTSIDE RECORDS SUMMARY | 2022-02-12 14:30 | XMS_ITS | Encounter Summary ---
:1985 Author Organization [facility] Address [address] [place] [address] Care Team Providers Name Role Phone Unavailable Primary Care Provider Unavailable Encounter Details Date Type Department Care Team Description 07/01/2015 [facility] Griffin Ann M.D. [address] [place] [address] (Wo rk) Social History Tobacco Use Types Packs/Day Years Used Date Smoking Tobacco: Never Assessed Sex Assigned at Date Recorded Not on file documented as of this encounter Last Filed Vital Signs Vital Sign Reading Time Taken Comments Blood Pressure 127/72 07/01/2015 6:18 AM DIRECTOR SEARCH Pulse 94 07/01/2015 6:18 AM DIRECTOR SEARCH Temperature - - Respiratory Rate 18 07/01/2015 6:18 AM DIRECTOR SEARCH Oxygen Saturation - - Inhaled Oxygen Concentration - - Weight - - Height - - Body Mass Index - - documented in this encounter Discharge Summaries Yamini Cerda R.N. - 07/01/2015 7:46 AM CST ED Discharge Instructions [facility] [address] [place] [phone] Name: SILVIA MAY Date of : 1985 12:00 AM Visit Date: 07/01/2015 6:09 AM [facility] Number: [id number] Address: [address] [place] [address] Primary Care Provider: SOFIE VÁZQUEZ MD IMPORTANT: [facility] in [place] would like to thank you for allowing [...] Address: When: SOFIE VÁZQUEZ [address] [place] [address] [phone] Business (1) Within As Needed Your Upcoming [...] ?? low level of folic acid or rmshugx-6-phbtiurva dehydrogenase ?? poor nutrition or malabsorption ?? [...] stop your medicine early. Talk to your student accounts manager regarding the use of this medicine in children. Special care may be needed. This medicine has been used in children as young as 2 months of age. Overdosage: If you think you have taken too much of this medicine contact a poison control center [facility] room at once. NOTE: This medicine [...] this medicine? Tell your doctor or health cattle care worker if your symptoms do not improve. Drink [...] should report to your doctor or health cattle care worker as soon as possible: ?? allergic reactions [...] attention (report to your doctor or health cattle care worker if they continue or are bothersome): ?? diarrhea ?? dizziness ?? headache ?? loss of appetite ?? nausea, vomiting ?? nervousness This list may not describe all possible side effects. Call your doctor for medical advice about sideeffects. You may report side effects to FDA at 2-006-NNY-1368. Where should I keep my medicine? Keep [...] nausea, vomiting and vertigo, you may use rdlx-fzs-gxfluuo motion sickness pills, such as meclizine (Bonine, [...] with speech or vision ?? Seizure ?? [phone] [facility], [address] [place] [address], [place] [address]. All rights reserved. This information is not [...] in the labia (outer vaginal area) ?? [phone] [facility], [address] [place] [address], [place] [address]. All rights reserved. This information is not [...] you dont have one. Go to [email or web address] and click on Create Your Account. Then, follow the directions to complete the online form. Youll be asked for your [facility] number which you can find at the [...] document has images extracted. Please consider using [employer] for all your patient education needs. Source: [employer] POWERCHART Document Id: [id number] CTOR SEARCH Yamini Cerda R.N. - 07/01/2015 7:46 AM CST ED Depart Summary [facility] Emergency Department / Urgent Care Clinical Discharge Summary PERSON INFORMATION Name SILVIA MAY Age 30 Years 1985 12:00 AM Sex Female Language Georgian PCP SOFIE VÁZQUEZ MD Marital Status Single Visit Id Visit Reason Vertigo - recurrent; dizziness and nausea Specialty Enc Type Emergency Med Service Emergency Medicine Referred by Track Group [facility] ED/UC Discharge 07/01/2015 7:16 AM Tracking Id [id number] Checkout 07/01/2015 7:16 AM Checkin 07/01/2015 6:09 AM Acuity 4 -Less Urgent Dispo Type * Discharged to Home or Self Care Arrival 07/01/2015 6:09 AM Reg Status Complete LOS 000 01:07 Address: [address] [place] [address] Comment: PROVIDER INFORMATION Provider Role Provider Contact Time BLANCHE RUIZ MD ED Provider 07/01/15 06:11 DEL FARFAN SEED PACKER Nurse 07/01/15 06:11 SANDRO SERRATO ED Orthopedic Shoe Maker 07/01/15 06:11 DONNIE MEDRANO ED Orthopedic Shoe Maker 07/01/15 07:02 DIAGNOSIS Vertigo NOS Comment: PATIENT [...] Address: When: SOFIE VÁZQUEZ [address] [place] [address] [phone] Business (1) Within As Needed Source: [facility] POWERCHART Document Id: [id number] CTOR SEARCH documented in this encounter ED Notes Yamini Cerda R.N. - 07/01/2015 7:16 AM CST ED Disposition Summary ED Disposition Summary Entered On: 07/01/2015 7:45 DIRECTOR SEARCH Performed On: 07/01/2015 7:16 DIRECTOR SEARCH by YAMINI CERDA RN ED Disposition Summary Present in Room During Exam/Procedure : Alone Mode of Discharge : Ambulatory Transportation : Private vehicle Printed Discharge Instructions Given to Patient : Yes Patient Status at Discharge from ED : Improved YAMINI CERDA RN - 07/01/2015 7:45 DIRECTOR SEARCH Source: [employer] Document Id: [id number] DIRECTOR SEARCH!7 CTOR SEARCH Yamini Cerda R.N. - 07/01/2015 7:16 AM CST ED Pain Assessment ED Pain Assessment Entered On: 07/01/2015 7:46 DIRECTOR SEARCH Performed On: 07/01/2015 7:16 DIRECTOR SEARCH by YAMINI CERDA RN Pain Assessment Pain Symptoms : No YAMINI CERDA RN - 07/01/2015 7:45 DIRECTOR SEARCH Source: [employer] Document Id: [id number] DIRECTOR SEARCH!3 CTOR SEARCH Blanche Ruiz M.D. - 07/01/2015 6:31 AM CST Vertigo - recurrent Patient: SILVIA MAY Age: 30 years Sex: Female : 1985 Author: BLANCHE RUIZ MD Attachments: None Basic Information Additional information: Chief Complaint from Nursing Triage Note : Chief Complaint Description 07/01/2015 6:18 DIRECTOR SEARCH Chief Complaint Description 30 y/o female persents [...] 12/31/1997 CDT. Polio: Dose #1 () 1985 DIRECTOR SEARCH, Dose #2 () 1985 CDT, Dose #3 () 11/17/1988 CDT. influenza virus vaccine: Ad hoc dose () 03/01/2009 CDT. tetanus/diphth/pertuss (Tdap) adult/adol: Ad hoc dose (Tdapadult) 11/01/2013 CDT. MMR: Dose #1 () 11/17/1988 CDT, Dose #2 () 01/08/1999 CDT. DTaP: Dose #1 () 1985 DIRECTOR SEARCH, Dose #2 () 1985 CDT, Dose #3 [...] PowerChart. Cytopathology, slides, cervical or vaginal (the [place] System); manual screening under physician supervision.. ([id number]) in the week of 03/10/2004 at 18 Years. Comments: 04/18/2010 21:45 - CARMEN MORALES Hx: [id number] - LAB-CYTOPATH, SM,D/V,TDS<3SM TECH 03/21/2013 17:41 - Contributor source changed to PowerChart.. Family history: Not significant. Social history: Reviewed as documented in chart, Occupation: Employed. Problem list: All Problems No Chronic Problems / NKP / Confirmed, per nurse's notes. Physical Examination Vital Signs: Vital Signs 07/01/2015 6:18 DIRECTOR SEARCH Temperature Core 37.0 DegC Peripheral Pulse Rate 94 /min Respiratory Rate 18 /min SpO2 96 % Systolic Blood Pressure 127 mmHg Diastolic Blood Pressure 72 mmHg Mean Arterial Pressure 90 mmHg , per nurse's notes, SpO2 07/01/2015 6:18 DIRECTOR SEARCH SpO2 96 % . General: Alert, no [...] RUIZ MD On: 07/01/2015 07:07 AM Source: [facility] POWERCHART Document Id: [id number]} CTOR SEARCH Del Farfan, R.N. - 07/01/2015 6:18 AM CST ED Primary Assessment Document Has Been Updated ED Primary Assessment Entered On: 07/01/2015 6:23 DIRECTOR SEARCH Performed On: 07/01/2015 6:18 DIRECTOR SEARCH by DEL FARFAN RN Reason For Visit (As Of: 07/01/2015 06:23:47 DIRECTOR SEARCH) Problems(Active) No Chronic Problems (Cerner :NKP ) Name of Problem: No Chronic Problems ; Recorder: NATY XIE MD; Confirmation: Confirmed ; Classification: Medical ; Code: NKP ; Last Updated: 05/15/2013 16:30 DIRECTOR SEARCH; Life Cycle Date: 05/15/2013 ; Life Cycle Status: Active ; Vocabulary: Cerner Diagnoses(Active) Vertigo - recurrent Date: 07/01/2015 ; Diagnosis Type: Reason For Visit ; Confirmation: Complaint of; Clinical Dx: Vertigo - recurrent ; Classification: Medical ; Clinical Service: Emergency medicine ; Code: PNED ; Probability: 0 ; Diagnosis Code: [id number] Triage Chief Complaint Description : 30 y/o [...] Private vehicle Track : Medical Languages : Georgian Vital Signs Assessed : Yes Treatments Prior to Arrival : None Are you ? : No Is Patient Female and 13-50 no hysterectomy : Yes Status : Patient denies DEL FARFAN RN - 07/01/2015 6:18 DIRECTOR SEARCH Vital Signs Temperature Core : 37.0 DegC(Converted to: 98.6 DegF) Peripheral Pulse Rate : 94 /min Respiratory Rate : 18 /min Systolic Blood Pressure : 127 mmHg Diastolic Blood Pressure : 72 mmHg NIBP Mean : 90 mmHg SpO2 : 96 % Oxygen Therapy : Room air DEL FARFAN RN - 07/01/2015 6:18 DIRECTOR SEARCH Pain Assessment Pain Symptoms : No DEL FARFAN RN - 07/01/2015 6:18 DIRECTOR SEARCH DENNY DCP GENERIC CODE Tracking Acuity : 4 -Less Urgent Tracking Group : [facility] ED/ DEL FARFAN RN - 07/01/2015 6:18 DIRECTOR SEARCH Respiratory Airway : Patent Respirations : Unlabored Respiratory Pattern : Regular Oxygen Therapy : Room air DEL FARFAN RN - 07/01/2015 6:18 DIRECTOR SEARCH Cardiovascular Heart Rhythm : Regular Skin Color : Normal for ethnicity Skin Description : Dry Skin Temperature : Warm DEL FARFAN RN - 07/01/2015 6:18 DIRECTOR SEARCH Neurological Last Well Time Known : Not applicable Level of Consciousness : Alert Orientation : Oriented x 3 Characteristics of Speech : Appropriate for age Neuro Patient Stated Symptoms : None Gait : Steady Loss of Consciousness : No DEL FARFAN RN - 07/01/2015 6:18 DIRECTOR SEARCH ED Psychosocial Affect/Behavior : Calm, Cooperative, Appropriate Domestic Abuse Concerns : None Behavioral Health Screen/Safety Assmt : No Emotional Support Available : No DEL FARFAN RN - 07/01/2015 6:18 DIRECTOR SEARCH Gastrointestinal Nutrition ED : Adequate DEL FARFAN RN - 07/01/2015 6:18 DIRECTOR SEARCH Musculoskeletal Fall Prevention Education Provided : NA Activity Lázaro : Walks frequently DEL FARFAN RN - 07/01/2015 6:18 DIRECTOR SEARCH Social Habits Exposure to Tobacco Smoke : Patient smokes, Other: occ alcohol Smoking Status : Current every day smoker Tobacco 2A : Yes Tobacco Use/Currently Using : Yes Tobacco Use/Last 30 Days : Yes Tobacco Use/Last 12 months : Yes Type : Cigarettes: Less than 20 per day Tobacco Use/Advised to Quit : No DEL FARFAN RN - 07/01/2015 6:18 DIRECTOR SEARCH Source: [facility] [employer] Document Id: [id number] DIRECTOR SEARCH!65 CTOR SEARCH documented in this encounter Miscellaneous Notes Miscellaneous - Carlos A Garcia REmekaNEmeka - 07/02/2015 5:13 PM CST Follow Up with Primary Care Document Contains Addenda Addendum by KATHRIN BALDWIN RN on 04 July 2015 15:54:32 DIRECTOR SEARCH Emergency Department Callback Second attempt Date of [...] BALDWIN RN on 04 July 2015 15:50:58 DIRECTOR SEARCH No answer, unable to leave message, no name Addendum by SIVAN MILLS RN on 03 July 2015 13:12:32 DIRECTOR SEARCH No answer, unable to leave message, no name Entered by CARLOS A GARCIA RN on 02 July 2015 17:13:48 DIRECTOR SEARCH No answer, unable to leave message, no name Follow Up Request: Follow Up with Primary Care Date Requested: July 01, 2015 07:46:45 DIRECTOR SEARCH Ed Location: [facility] ED ED Attending: BLANCHE RUIZ MD Order placed from order screen by provider Order Provider: --- Follow Up Time Frame: --- Reason for Request: --- Special Instructions: --- Consulting Physician: --- Consulting Department: --- Rule placed order based on provider documentaton Note: Order created from documentation in the Follow Up section Documented by: BLANCHE RUIZ MD Follow Up Within: As Needed Follow Up On: -- Follow Up Address: -- Follow Up Comments: Call for follow up appointment. 4-5 DAYS FOR TEST FOR CURE URINARY TRACT INFECTION Source: [facility] [employer] Document Id: [id number] Electronically signed by Shania Ramirez Supervisor Customer Complaint Service [id number] at 09/26/2016 8:44 AM CDT Miscellaneous - Yamini Cerda R.N. - 07/01/2015 7:16 AM CST Valuables/Belongings Valuables/Belongings Entered On: 07/01/2015 7:46 DIRECTOR SEARCH Performed On: 07/01/2015 7:16 DIRECTOR SEARCH by YAMINI CERDA RN Valuables/Belongings Belongings Sent Home With : Pt YAMINI CERDA RN - 07/01/2015 7:46 DIRECTOR SEARCH Source: [facility] [employer] Document Id: [id number] DIRECTOR SEARCH!3 CTOR SEARCH Miscellaneous - James, Kay Provider Ser - 07/01/2015 7:16 AM DIRECTOR SEARCH Coding Summary-Paper Based CODING DATE: 07/14/2015 FINAL [facility] STATUS: * Discharged [...] CASTANO Date Saved: 07/14/2015 08:02 pm Source: [facility] Document Id: [id number] Miscellaneous - Blanche Ruiz M.D. - 07/01/2015 7:10 AM CST Return to Work Status Return to Work Status Entered On: 07/01/2015 7:11 DIRECTOR SEARCH Performed On: 07/01/2015 7:10 DIRECTOR SEARCH by BLANCHE RUIZ MD Return to Work Status Date/Time of Injury : 07/01/2015 7:10 DIRECTOR SEARCH Work Injury : No Work Status : No work Return to Work Start Date : 07/03/2015 DIRECTOR SEARCH Restricted Work Start Date : 07/01/2015 DIRECTOR SEARCH Restricted Work Stop Date : 07/03/2015 DIRECTOR SEARCH Follow Up Appointment Needed : Yes Follow Up Appointment Date : 07/06/2015 DIRECTOR SEARCH BLANCHE RUIZ MD - 07/01/2015 7:10 DIRECTOR SEARCH Source: [employer] Document Id: [id number] DIRECTOR SEARCH!10 CTOR SEARCH documented in this encounter Plan of Treatment Not on filedocumented as of this encounter Procedures Procedure Name Priority Date/Time Associated Comments Diagnosis HXUR % DYSMORPHIC Routine 07/01/2015 6:30 AM Resu lts for this RBC DIRECTOR SEARCH procedure are i n the results section. TEST, U Routine 07/01/2015 6:30 AM Resu lts for this DIRECTOR SEARCH procedure are i n the results section. URINALYSIS, Routine 07/01/2015 6:30 AM Results f or this MIDSTREAM, WITH DIRECTOR SEARCH procedure ar e in CULTURE IF INDICATED the res ults section. BACTERIAL CULTURE, Routine 07/01/2015 6:30 AM Res ults for this AEROBIC, URINE DIRECTOR SEARCH procedure are in the results section. documented in this encounter Results HXUR % DYSMORPHIC RBC (07/01/2015 6:30 AM DIRECTOR SEARCH) athologist Signature Dysmorphic RBC <=25 <=25 POWERCHART Specimen Anatomical Collection Method Collection Time Receive d Time (Source) Location / / Volume Laterality Urine, First 07/01/2015 6:30 AM 6:30 Voided DIRECTOR SEARCH AM DIRECTOR SEARCH Blanche Ruiz M.D. LAB HISTORICAL ORDERS Performing Organization Address [facility] Phon e Number POWERCHART Test, Qualitative, Urine (07/01/2015 6:30 AM DIRECTOR SEARCH) [facility] Method Time Signature HXBeta-hCG Negative Negative POWERCHART Qualitative Urine Specimen (Source) Anatomical Collection Method Collection Time Re ceived Time Location / / Volume Laterality Urine 07/01/2015 6:30 AM DIRECTOR SEARCH Blanche Ruiz M.D. LAB URINE ORDERABLES Performing Organization Address City/[facility] Phon e Number POWERCHART (ABNORMAL) Urinalysis, Midstream, with culture if indicated (07/01/2015 6:30 AM DIRECTOR SEARCH) [facility] Method Time Signature HXUr Color Yellow [...] (A) Negative POWERCHART Esterase Specific 1.024 POWERCHART [place], POCT, U HXUR WBC. 11-20 (A) None Seen POWERCHART HPF HXUR RBC. 3-10 (A) None Seen POWERCHART HPF HXUR Bacteria, Present (A) None Seen POWERCHART Squamous 31-40 (A) None Seen POWERCHART Epithelial HPF Mucus Present (A) None Seen POWERCHART Specimen (Source) Anatomical Collection Method Collection Time Re ceived Time Location / / Volume Laterality Urine, First 07/01/2015 6:30 AM Voided DIRECTOR SEARCH Blanche Ruiz M.D. LAB URINE ORDERABLES Performing Organization Address City/State/ZIP Code Phon e Number POWERCHART Bacterial Culture, Aerobic, Urine (07/01/2015 6:30 AM DIRECTOR SEARCH) [facility] Method Time Signature Bacterial POWERCHART Culture, Aerobic, Urine HXPre Reincubate POWERCHART HXFinal Mixed harlan. No POWERCHART further studies unless notified. [facility] POWERCHART Microbiology laboratory [phone]. Specimen Anatomical Collection Method Collection Time Receive d Time (Source) Location / / Volume Laterality Urine, First 07/01/2015 6:30 AM 6:40 Voided DIRECTOR SEARCH AM DIRECTOR SEARCH Blanche Ruiz M.D. LAB MICROBIOLOGY - GENERAL O RDERABLES Performing Organization Address City/State/ZIP Code Phon e Number POWERCHART documented in this encounter Visit Diagnoses Not on filedocumented in this encounter
--- OUTSIDE RECORDS SUMMARY | 2022-02-12 14:30 | XMS_ITS | Encounter Summary ---
:1985 Author Organization [facility] Address [address] [place] [address] Care Team Providers Name Role Phone Unavailable Primary Care Provider Unavailable Encounter Details Date Type Department Care Team Description 09/28/2002 - Hospital Encounter HX [facility] Surjit Rai, 09/15/2014 KENISHA Andrade Social History Tobacco Use Types Packs/Day Years Used Date Smoking Tobacco: Never Assessed Sex Assigned at Date Recorded Not on file documented as of this encounter Discharge Summaries Dhiraj Witt M.D. - 08/20/2015 5:31 PM CDT Hospital Discharge Instructions [facility] [address] [place] [address] Patient Discharge Instructions Name: SILVIA BLANCHARDN Current Date: 08/20/2015 17:31:10 : 1985 12:00 AM [facility] Number: [id number] Patient Address: [address] [place] [phone] Patient Primary Care Provider: Name: SOFIE SORIA MD Phone: [phone] Discharge Diagnosis: Sprain Finger Initial [facility] in [place] would like to thank you for allowing [...] once a day Routed to [facility] [address] [place], [place] [address] lidocaine topical (Lidoderm 5% topical film) 1 patch(es), Topical, once a day Apply to intact skin and remove patch after a maximum of 12 hr of application within a 24 hr period New Routed to [facility] omeprazole (omeprazole 40 mg oral delayed release capsule) 1 cap, Oral, once a day Routed to [facility] [address] [facility] [place], [place] [address] polyethylene glycol 3350 with electrolytes (GoLYTELY oral [...] Appointments Date Time Location Provider 08/23/2015 08:15 [facility] Sofie Soria MD Consider Using [...] form. Youll be asked for your [facility] number which you can find at the top of this document. I, SILVIA BLANCHARD , have received the attached patient education materials/instructions and have verbalized understanding: Patient Signature Date Time Care Provider Signature Date Time Source: [facility] POWERCHART Document Id: [id number] Dhiraj Witt M.D. - 08/20/2015 5:31 PM CDT Hospital Discharge Medication List [facility] [address] [place] [address] Discharge Medication List Name: SILVIA BLANCHARD Current Date: 08/20/2015 17:31:09 : 1985 12:00 AM [facility] Number: [id number] Patient Address: [address] [place] [phone] Patient Primary Care Provider: Name: SOFIE SORIA MD Phone: [phone] Discharge Diagnosis: Sprain Finger Initial [facility] in [place] would like to thank you for allowing us to assist you with your healthcare needs. The following includes patient education materials and information regarding your injury/illness. Medications Medication/Strength How to Take Indications/Special Instructions/Comments/Notes for Patient Medication Changes/Routing FLUoxetine (Prozac 10 mg oral tablet) 1 Tablet(s), Oral, once a day Routed to [facility] [address] [facility] [place], [place] [address] lidocaine topical (Lidoderm 5% topical film) 1 patch(es), Topical, once a day Apply to intact skin and remove patch after a maximum of 12 hr of application within a 24 hr period New Routed to [facility] omeprazole (omeprazole 40 mg oral delayed release capsule) 1 cap, Oral, once a day Routed to [facility] [address] [place], [place] [address] polyethylene glycol 3350 with electrolytes (GoLYTELY oral powder for reconstitution) 240 Milliliter,Oral, every 10 minutes [facility] (traMADol 50 mg oral tablet) See [...] DHIRAJ WITT MD Signed On:20-AUG-2015 17:29:10 [facility] Document Id: [id number] documented in this encounter Progress Notes Chauncey Gilliland M.D. - 06/04/2016 1:00 PM CST Free Text Note Silvia went to ER last night for pain not controlled by the ultram. Dose was increased, but stillnot helping. will give #24 percocet 5/[address] Wilkerson Electronically Signed By: CHAUNCEY GILLILAND MD On: 06/04/2016 01:01 PM Source: [facility] [employer] Document Id: [id number] MAN documented in this encounter Nursing Notes Breann [...] FREDERICK RN On: 06/02/2016 02:57 PM Source: [facility] [employer] Document Id: [id number] MAN documented in this encounter Plan of Treatment Not on filedocumented as of this encounter Visit Diagnoses Not on filedocumented in this encounter
--- OUTSIDE RECORDS SUMMARY | 2022-02-12 14:30 | XMS_ITS | Encounter Summary ---
:1985 Author Organization [facility] Address [address] [place] [address] Care Team Providers Name Role Phone Unavailable Primary Care Provider Unavailable Encounter Details Date Type Department Care Team Description 08/14/2004 - Hospital Encounter HX [facility] PT ProviderLaurie 09/15/2014 Social History Tobacco Use Types Packs/Day Years Used Date Smoking Tobacco: Never Assessed Sex Assigned at Date Recorded Not on file documented as of this encounter Plan of Treatment Not on filedocumented as of this encounter Visit Diagnoses Not on filedocumented in this encounter
--- OUTSIDE RECORDS SUMMARY | 2022-02-12 14:30 | XMS_ITS | Encounter Summary ---
:1985 Author Organization [facility] Address [address] [place] [address] Care Team Providers Name Role Phone Unavailable Primary Care Provider Unavailable Encounter Details Date Type Department Care Team Description 03/07/2015 Hospital Encounter HX [facility] Juwan Figueroa M.D. [address] [place] [phone] (Wo rk) Social History Tobacco Use Types Packs/Day Years Used Date Smoking Tobacco: Never Assessed Sex Assigned at Date Recorded Not on file documented as of this encounter Last Filed Vital Signs Vital Sign Reading Time Taken Comments Blood Pressure 120/74 03/07/2015 8:54 AM PUMP AND STILL OPERATOR Pulse 76 03/07/2015 8:54 AM PUMP AND STILL OPERATOR Temperature - - Respiratory Rate 20 03/07/2015 8:54 AM PUMP AND STILL OPERATOR Oxygen Saturation - - Inhaled Oxygen Concentration - - Weight - - Height - - Body Mass Index - - documented in this encounter Discharge Summaries Devi Raza R.N. - 03/07/2015 9:17 AM CST ED Discharge Instructions [facility] [address] [place] [address] Name: SILVIA MAY Date of : 1985 12:00 AM Visit Date: 03/07/2015 8:04 AM [facility] Number: [id number] Address: [address] [place] [id number] Primary Care Provider: SOFIE VÁZQUEZ MD IMPORTANT: [facility] in [place] would like to thank you for allowing us to assist youwith your healthcare needs. The following includes patient education materials and information regarding your injury/illness. Diagnosis: Pain Abdominal NOS Follow-Up Instructions: With: Address: When: SOFIE VÁZQUEZ [address] [place] [phone] Business (1) Within As Needed Comments: Call [...] ?? Rapid heart rate ?? Seizure ?? [phone] [address]. All rights reserved. This information is not [...] online form. Youll be asked for your [facility] number which you can [...] document has images extracted. Please consider using [employer] for all your patient education needs. Source: ClearSlide Document Id: [id number] AND STILL OPERATOR Devi Raza R.N. - 03/07/2015 9:17 AM CST ED Depart Summary [facility] Emergency Department / Urgent Care Clinical Discharge Summary PERSON INFORMATION Name SILVIA MAY Age 29 Years 1985 12:00 AM Sex Female Language Belizean PCP SOFIE VÁZQUEZ MD Marital Status Single N [id number] Visit Id Visit Reason Abdominal pain; abdominal pain-vomitting Specialty Enc Type Emergency Med Service Emergency Medicine Referred by Track Group [facility] ED/UC Discharge 03/07/2015 9:17 AM Tracking Id [id number] Checkout 03/07/2015 9:17 AM Checkin 03/07/2015 8:04 AM Acuity 3 -Urgent Dispo Type * Discharged to Home or Self Care Arrival 03/07/2015 8:04 AM Reg Status Complete LOS 000 01:13 Address: [address] [place] [id number] Comment: PROVIDER INFORMATION Provider Role Provider Contact Time RAY BELLE RN ED Nurse 03/07/15 08:08 GRACIELA FIGUEROA MD ED Provider 03/07/15 08:10 DONNIE MEDRANO ED Highway Patrol Officer 03/07/15 08:20 DEVI RAZA RN ED Nurse 03/07/15 08:20 DIAGNOSIS Pain Abdominal NOS Comment: PATIENT EDUCATION INFORMATION Instructions: ABDOMINAL PAIN, Unknown Cause, (Female) Follow up: With: Address: When: SOFIE VÁZQUEZ [address] [place] [phone] Business (1) Within As Needed Comments: Call for follow up appointment Source: ClearSlide Document Id: [id number] AND STILL OPERATOR documented in this encounter ED Notes Devi Raza R.N. - 03/07/2015 9:17 AM CST ED Disposition Summary ED Disposition Summary Entered On: 03/07/2015 9:17 PUMP AND STILL OPERATOR Performed On: 03/07/2015 9:17 PUMP AND STILL OPERATOR by DEVI RAZA DIE TESTER Disposition Summary Accompanied By : Alone Mode of Discharge : Ambulatory Transportation : Private vehicle Discharge From ED With : Home Med List Printed Discharge Instructions Given to Patient : Yes Patient Status at Discharge from ED : Improved DEVI RAZA RN - 03/07/2015 9:17 PUMP AND STILL OPERATOR Source: ClearSlide Document Id: [id number] PUMP AND STILL OPERATOR!8 AND STILL OPERATOR Devi Raza R.N. - 03/07/2015 9:17 AM CST ED Pain Assessment ED Pain Assessment Entered On: 03/07/2015 9:17 PUMP AND STILL OPERATOR Performed On: 03/07/2015 9:17 PUMP AND STILL OPERATOR by DEVI RAZA RN Pain Assessment Pain Symptoms : Yes DEVI RAZA RN - 03/07/2015 9:17 PUMP AND STILL OPERATOR Source: ClearSlide Document Id: [id number] PUMP AND STILL OPERATOR!3 AND STILL OPERATOR Devi Raza R.N. - 03/07/2015 8:22 AM CST ED Primary Assessment Document Has Been Updated ED Primary Assessment Entered On: 03/07/2015 8:28 PUMP AND STILL OPERATOR Performed On: 03/07/2015 8:22 PUMP AND STILL OPERATOR by DEVI RAZA RN Reason For Visit (As Of: 03/07/2015 08:28:13 PUMP AND STILL OPERATOR) Problems(Active) No Chronic Problems (Cerner :NKP ) Name of Problem: No Chronic Problems ; Recorder: NATY XIE MD; Confirmation: Confirmed ; Classification: Medical ; Code: NKP ; Last Updated: 05/15/2013 16:30 PUMP AND STILL OPERATOR; Life Cycle Date: 05/15/2013 ; Life Cycle Status: Active ; Vocabulary: Karen Diagnoses(Active) Abdominal pain Date: 03/07/2015 ; Diagnosis Type: Reason For Visit ; Confirmation: Complaint of ; Clinical Dx: Abdominal pain ; Classification: Medical ; Clinical Service: Emergency medicine ; Code: PNED ; Probability: 0 ; Diagnosis Code: [id number] Pain Abdominal NOS Date: 03/07/2015 ; Diagnosis [...] Private vehicle Track : Medical Languages : Belizean Treatments Prior to Arrival : Home treatments Are you ? : No Is Patient Female and 13-50 no hysterectomy : Yes Status : Patient denies DEVI RAZA RN - 03/07/2015 8:22 PUMP AND STILL OPERATOR Pain Assessment Pain Symptoms : Yes DEVI RAZA RN - 03/07/2015 8:22 PUMP AND STILL OPERATOR Pain Scale Pain Scale Verbal 0-10 : Open DEVI RAZA RN - 03/07/2015 8:22 PUMP AND STILL OPERATOR Pain Pain Assessment Grid Pain 1 Location : Abdomen Laterality : Right Intensity : 7 Time Pattern : Acute, Constant Onset : Sudden Quality : Sharp Pain Radiation : Yes Aggravating Factors : Movement DEVI RAZA RN - 03/07/2015 8:22 PUMP AND STILL OPERATOR ED Physician Notification Time ED Physician Notification Time : 03/07/2015 8:22 PUMP AND STILL OPERATOR DEVI RAZA RN - 03/07/2015 8:22 PUMP AND STILL OPERATOR DENNY DCP GENERIC CODE Tracking Acuity : 3 -Urgent Tracking Group : [facility] ED/ DEVI RAZA RN - 03/07/2015 8:22 PUMP AND STILL OPERATOR Allergy (As Of: 03/07/2015 08:28:13 PUMP AND STILL OPERATOR) Allergies (Active) NKA Estimated Onset Date: Unspecified ; Created By: KATIE BRUNNER MD; Reaction Status: Active ; Category: Drug ; Substance: NKA ; Type: Allergy ; Updated By: KATIE BRUNNER MD; Reviewed Date: 03/07/2015 8:26 PUMP AND STILL OPERATOR Respiratory Airway : Patent Respirations : Unlabored Respiratory Pattern : Regular Oxygen Therapy : Room air Respiratory Detailed Assessment : Yes DEVI RAZA RN - 03/07/2015 8:22 PUMP AND STILL OPERATOR Resp Detailed Respiratory Patient Stated Symptoms : None DEVI RAZA RN - 03/07/2015 8:22 PUMP AND STILL OPERATOR Breath Sounds Assessment Grid BRIGIDO : Clear RUL : Clear RML : Clear LLL : Clear RLL : Clear DEVI RAZA RN - 03/07/2015 8:22 PUMP AND STILL OPERATOR Cardiovascular Heart Rhythm : Regular Skin Color : Normal for ethnicity Skin Description : Dry, Normal Skin Temperature : Warm DEVI RAZA RN - 03/07/2015 8:22 PUMP AND STILL OPERATOR Neurological Last Well Time Known : Not applicable Level of Consciousness : Alert Orientation : Oriented x 3 Characteristics of Speech : Clear Neuro Patient Stated Symptoms : None DEVI RAZA RN - 03/07/2015 8:22 PUMP AND STILL OPERATOR ED Psychosocial Affect/Behavior : Calm, Cooperative, Appropriate Domestic Abuse Concerns : None Behavioral Health Screen/Safety Assmt : No DEVI RAZA RN - 03/07/2015 8:22 PUMP AND STILL OPERATOR Gastrointestinal Nutrition ED : Adequate GI Detailed Assessment : Yes DEVI RAZA RN - 03/07/2015 8:22 PUMP AND STILL OPERATOR GI Detailed GI Patient Stated Symptoms : Vomiting GI Note : vomited x 1 this morning DEVI RAZA RN - 03/07/2015 8:22 PUMP AND STILL OPERATOR Musculoskeletal Fall Prevention Education Provided : DEVI PRADO RN - 03/07/2015 8:22 PUMP AND STILL OPERATOR Social Habits Tobacco Use/Currently Using : Yes Exposure to Tobacco Smoke : Patient smokes, Other: occ alcohol Smoking Status : Current every day smoker DEVI RAZA RN - 03/07/2015 8:22 PUMP AND STILL OPERATOR Tobacco Use Grid Cigarette Use Packs/Day : 0.5 DEVI RAZA RN - 03/07/2015 8:22 PUMP AND STILL OPERATOR Peripheral IV Peripheral IV Assess/Intervention Grid Peripheral IV #1 IV Activity : Start Number of Attempts : 1 Date of Insertion : 03/07/2015 PUMP AND STILL OPERATOR IV Site : Forearm Laterality : Right Catheter Size : 20 Catheter Type : Over the needle DEVI RAZA RN - 03/07/2015 8:22 PUMP AND STILL OPERATOR Source: [facility] POWERCHART Document Id: [id number] PUMP AND STILL OPERATOR!85 AND STILL OPERATOR Graciela Figueroa M.D. - 03/07/2015 8:12 AM CST Abdominal pain Patient: SILVIA MAY Age: 29 years Sex: Female : 1985 Author: GRACIELA FIGUEROA MD Attachments: None Associated Diagnosis: Pain Abdominal NOS Basic Information Time seen: Immediately upon arrival. History source: Patient. Arrival mode: Private vehicle. History limitation: None. Additional information: Chief Complaint from Nursing Triage Note : Chief Complaint Description 03/07/2015 8:06 PUMP AND STILL OPERATOR Chief Complaint Description mid upper to [...] PowerChart. Cytopathology, slides, cervical or vaginal (the [place] System); manual screening under physician supervision.. ([id number]) in the week of 03/10/2004 at 18 Years. Comments: 04/18/2010 21:45 - [place] Hx: [id number] - LAB-CYTOPATH, SM,D/V,TDS<3SM TECH 03/21/2013 17:41 - [...] Medically cleared, Discharged: to home. Prescriptions: Prescription [facility]: [facility] excuse (Prescribe): See Instructions, Please excuse [...] FIGUEROA MD On: 03/07/2015 08:26 AM Source: [facility] POWERCHART Document Id: {[id number]} AND STILL OPERATOR Sangita Allen R.N. - 03/07/2015 8:06 AM CST ED Triage Assessment Document Has Been Updated ED Triage Assessment Entered On: 03/07/2015 8:07 PUMP AND STILL OPERATOR Performed On: 03/07/2015 8:06 PUMP AND STILL OPERATOR by SANGITA ALLEN RN Reason For Visit (As Of: 03/07/2015 08:07:53 PUMP AND STILL OPERATOR) Problems(Active) No Chronic Problems (Cerner :NKP ) Name of Problem: No Chronic Problems ; Recorder: NATY XIE MD; Confirmation: Confirmed ; Classification: Medical ; Code: NKP ; Last Updated: 05/15/2013 16:30 PUMP AND STILL OPERATOR; Life Cycle Date: 05/15/2013 ; Life Cycle Status: Active ; Vocabulary: Cerner Diagnoses(Active) Abdominal pain Date: 03/07/2015 ; Diagnosis Type: Reason For Visit ; Confirmation: Complaint of ; Clinical Dx: Abdominal pain ; Classification: Medical ; Clinical Service: Emergency medicine ; Code: PNED ; Probability: 0 ; Diagnosis Code: [id number] Triage Chief Complaint Description : mid upper to right abdominal pain that radiates to her back. vomiting.pt was seen for same 3 days ago and stated she was dx with pneumonia and UTI and is currently on antibiotics and pain medications. Information Given By : Patient Accompanied By : Alone Mode of Arrival ED : Private vehicle Track : Medical Languages : Belizean Patient Informed of Triage Location : Emergency department Treatments Prior to Arrival : Home treatments Is Patient Female and 13-50 no hysterectomy : Yes SANGITA ALLEN RN - 03/07/2015 8:06 PUMP AND STILL OPERATOR Pain Assessment Pain Symptoms : Yes SANGITA ALLEN RN - 03/07/2015 8:06 PUMP AND STILL OPERATOR Pain Scale Pain Scale Verbal 0-10 : Open SANGITA ALLEN RN - 03/07/2015 8:06 PUMP AND STILL OPERATOR Pain Pain Assessment Grid Pain 1 Location : Abdomen Laterality : Right SANGITA ALLEN RN - 03/07/2015 8:06 PUMP AND STILL OPERATOR DENNY DENNY Level 1 : No DENNY Level 2 : No DENNY Level 3 : Many SANGITA ALLEN RN - 03/07/2015 8:06 PUMP AND STILL OPERATOR DCP GENERIC CODE Tracking Acuity : 3 -Urgent Tracking Group : [facility] ED/ SANGITA ALLEN RN - 03/07/2015 8:06 PUMP AND STILL OPERATOR [facility] Document Id: [id number] PUMP AND STILL OPERATOR!27 AND STILL OPERATOR documented in this encounter Miscellaneous Notes Miscellaneous - Devi Raza R.N. - 03/07/2015 9:17 AM CST Valuables/Belongings Valuables/Belongings Entered On: 03/07/2015 9:17 PUMP AND STILL OPERATOR Performed On: 03/07/2015 9:17 PUMP AND STILL OPERATOR by DEVI RAZA RN Valuables/Belongings Belongings Sent Home With : pt DEVI RAZA RN - 03/07/2015 9:17 PUMP AND STILL OPERATOR Source: [employer]ide Document Id: [id number] PUMP AND STILL OPERATOR!3 AND STILL OPERATOR Miscellaneous - Conversion, Historical Provider Ser - 03/07/2015 9:17 AM PUMP AND STILL OPERATOR Coding Summary-Paper Based CODING DATE: 03/22/2015 FINAL [facility] STATUS: * Discharged to Home [...] ACEVES Date Saved: 03/22/2015 09:08 am Source: ClearSlide Document Id: [id number] documented in this encounter Plan of Treatment Not on filedocumented as of this encounter Procedures Procedure Name Priority Date/Time Associated Comments Diagnosis BACTERIAL CULTURE, Routine 03/07/2015 8:59 AM Res ults for this AEROBIC, URINE PUMP AND STILL OPERATOR procedure are in the results section. URINALYSIS, MIDSTREAM, Routine 03/07/2015 8:50 AM Results for this WITH CULTURE IF PUMP AND STILL OPERATOR procedure ar e in INDICATED the results section. AUTOMATED Routine 03/07/2015 8:20 AM Results f or this DIFFERENTIAL, B PUMP AND STILL OPERATOR procedure ar e in the results section. CBC WITH DIFFERENTIAL, Routine 03/07/2015 8:20 AM Results for this B PUMP AND STILL OPERATOR procedure are i n the results section. COMPREHENSIVE Routine 03/07/2015 8:20 AM Results for this METABOLIC PANEL, S/P PUMP AND STILL OPERATOR procedu re are in the results section. documented in this encounter Results Bacterial Culture, Aerobic, Urine (03/07/2015 8:59 AM PUMP AND STILL OPERATOR) [facility] Method Time Signature Bacterial POWERCHART Culture, Aerobic, Urine HXFinal Mixed harlan. No POWERCHART further studies unless notified. [facility] POWERCHART Microbiology laboratory [phone]. Specimen Anatomical Collection Method Collection Time Receive d Time (Source) Location / / Volume Laterality Urine, First 03/07/2015 8:59 AM 5 8:59 Voided PUMP AND STILL OPERATOR AM PUMP AND STILL OPERATOR Graciela Figueroa M.D. LAB MICROBIOLOGY - GENERAL O RDERABLES Performing Organization Address City/State/ZIP Code Phon e Number POWERCHART (ABNORMAL) Urinalysis, Midstream, with culture if indicated (03/07/2015 8:50 AM PUMP AND STILL OPERATOR) [facility] Method Time Signature HXUr Color Yellow Colorless [...] (A) Negative POWERCHART Esterase Specific 1.022 POWERCHART [place], POCT, U HXUR WBC. Occ-3 None Seen POWERCHART HPF HXUR RBC. Occ-2 None Seen POWERCHART HPF HXUR Bacteria, Present (A) None Seen POWERCHART Squamous 4-10 (A) None Seen POWERCHART Epithelial HPF Mucus Present (A) None Seen POWERCHART Specimen (Source) Anatomical Collection Method Collection Time Re ceived Time Location / / Volume Laterality Urine, First 03/07/2015 8:50 AM Voided PUMP AND STILL OPERATOR Graciela Figueroa M.D. LAB URINE ORDERABLES Performing Organization Address City/[facility] Phon e Number POWERCHART Automated Differential (03/07/2015 8:20 AM PUMP AND STILL OPERATOR) P athologist Signature Absolute 3.81 1.70 - POWERCHART Neutrophils 7.00 109L Lymphocytes 2.23 0.90 - POWERCHART 2.90 X109L Monocytes 0.53 0.30 - POWERCHART 0.90 X109L Eosinophils 0.40 0.05 - POWERCHART 0.50 X109L Absolute 0.03 0.00 - POWERCHART Basophil 0.30 X109L Specimen Anatomical Collection Method Collection Time Receive d Time (Source) Location / / Volume Laterality Blood 03/07/2015 8:20 AM 5 8:20 PUMP AND STILL OPERATOR AM PUMP AND STILL OPERATOR Graciela Figueroa M.D. LAB BLOOD ADD-ON Performing Organization Address [facility] Phon e Number POWERCHART CBC with Differential (03/07/2015 8:20 AM PUMP AND STILL OPERATOR) athologist Signature Leukocytes 7.0 3.4 - 10.5 POWERCHART X109L Erythrocytes 4.53 3.90 - 5.03 POWERCHART Y8347V Hemoglobin 13.8 12.0 - 15.5 POWERCHART GDL Hematocrit 41.6 34.9 - 44.5 POWERCHART MCV 91.8 82.0 - 98.0 POWERCHART FL HX RDW 12.2 11.9 - 15.5 POWERCHART Platelet Count 222 150 - 450 POWERCHART X109L Specimen (Source) Anatomical Collection Method Collection Time Re ceived Time Location / / Volume Laterality Blood 03/07/2015 8:20 AM PUMP AND STILL OPERATOR Graciela Figueroa M.D. LAB BLOOD ADD-ON Performing Organization Address City/[facility] Phon e Number POWERCHART CMP (Comprehensive Metabolic Panel) (03/07/2015 8:20 AM PUMP AND STILL OPERATOR) P athologist Signature Alanine 13 7 [...] ed reference range. HXeGFR (MDRD) >60 >=60 [id number] POWERCHART eGFR Black/ >60 >=60 [id number] POWERCHART Bilirubin, Total, S 0.2 <=1.2 MGDL [...] / Volume Laterality Blood 03/07/2015 8:20 AM PUMP AND STILL OPERATOR Graciela Figueroa M.D. LAB BLOOD ADD-ON Performing Organization Address City/State/ZIP Code Phon e Number POWERCHART documented in this encounter Visit Diagnoses Not on filedocumented in this encounter
--- OUTSIDE RECORDS SUMMARY | 2022-02-12 14:30 | XMS_ITS | Encounter Summary ---
:1985 Author Organization [facility] Address [address] [place] [address] Care Team Providers Name Role Phone Unavailable Primary Care Provider Unavailable Encounter Details Date Type Department Care Team Description 03/05/2015 Hospital Encounter HX [facility] ED Mimi Vicente D.O. [address] [place] [address] (Wo rk) Social History Tobacco Use Types Packs/Day Years Used Date Smoking Tobacco: Never Assessed Sex Assigned at Date Recorded Not on file documented as of this encounter Last Filed Vital Signs Vital Sign Reading Time Taken Comments Blood Pressure 123/81 03/05/2015 11:24 AM ELECTRONIC COMPONENTS ASSEMBLER Pulse 78 03/05/2015 10:23 AM ELECTRONIC COMPONENTS ASSEMBLER Temperature - - Respiratory Rate 17 03/05/2015 11:24 AM ELECTRONIC COMPONENTS ASSEMBLER Oxygen Saturation - - Inhaled Oxygen Concentration - - Weight - - Height - - Body Mass Index - - documented in this encounter Discharge Summaries Nola Williamson R.N. - 03/05/2015 12:50 PM CST ED Discharge Instructions [facility] [address] [facility] [place] [address] Name: SILVIA MAY Date of : 1985 12:00 AM Visit Date: 03/05/2015 9:07 AM [facility] Number: [id number] Address: [address] [place] [id number] Primary Care Provider: SOFIE VÁZQUEZ MD IMPORTANT: [facility] in [place] would like to thank you for allowing us to assist youwith your healthcare needs. The following includes patient education materials and information regarding your injury/illness. Diagnosis: Follow-Up Instructions: With: Address: When: SOFIE VÁZQUEZ [address] [place] [phone] Business (1) Within 3 - 5 days [...] in the labia (outer vaginal area) ?? [id number] Lennie Swain, [address] [place] [address], [place] [address]. All rights reserved. This information is not [...] Chest pain not caused by coughing ?? [phone] [facility], [address] [place] [address]. All rights reserved. This information is not [...] dont have one. Go to [email or web address] and click on Create Your Account. Then, follow the directions to complete the online form. Youll be asked for your [facility] number which you can find at [...] home with a responsible libertarian. I, SILVIA MAY , or responsible libertarian have received this information and my questions have been answered. I have discussed any challenges I see with this plan with the nurse or physician. Patient Signature or Responsible Green Party/Relationship Date Time Provider Signature Date Time This document has images extracted. Please consider using [employer] for all your patient education needs. Source: [facility] [employer] Document Id: [id number] TRONIC COMPONENTS ASSEMBLER Nola Williamson R.N. - 03/05/2015 12:50 PM CST ED Depart Summary [facility] Emergency Department / Urgent Care Clinical Discharge Summary PERSON INFORMATION Name SILVIA MAY Age 29 Years 1985 12:00 AM Sex Female Language Equ[place]an PCP SOFIE VÁZQUEZ MD Marital Status Single Visit Id Visit Reason Abdominal pain; PAIN ON RIGHT SIDE OF BODY Specialty Enc Type Emergency Med Service Emergency Medicine Referred by Track Group [facility] ED/UC Discharge 03/05/2015 12:50 PM Tracking Id [id number] Checkout 03/05/2015 12:50 PM Checkin 03/05/2015 9:07 AM Acuity 3 -Urgent Dispo Type * Discharged to Home or Self Care Arrival 03/05/2015 9:07 AM Reg Status Complete LOS 000 03:43 Address: [address] [place], [place] [address] Comment: PROVIDER INFORMATION Provider Role Provider Contact Time TRI SMART RN ED Nurse 03/05/15 09:24 DONNIE MEDRANO ED Director Religious Education 03/05/15 09:24 MIMI VICENTE DO ED Provider 03/05/15 10:17 NOLA WILLIAMSON RN ED Nurse 03/05/15 11:33 DIAGNOSIS Comment: PATIENT EDUCATION INFORMATION Instructions: BLADDER INFECTION, Female (Adult); PNEUMONIA (Adult) Follow up: With: Address: When: SOFIE VÁZQUEZ [address] [place] [address] [phone] Business (1) Within 3 - 5 days Source: [facility] [employer] Document Id: [id number] TRONIC COMPONENTS ASSEMBLER documented in this encounter ED Notes Nola Williamson R.N. - 03/05/2015 12:50 PM CST ED Pain Assessment ED Pain Assessment Entered On: 03/05/2015 12:50 ELECTRONIC COMPONENTS ASSEMBLER Performed On: 03/05/2015 12:50 ELECTRONIC COMPONENTS ASSEMBLER by NOLA WILLIAMSON RN Pain Assessment Pain Symptoms : Yes NOLA WILLIAMSON RN - 03/05/2015 12:50 ELECTRONIC COMPONENTS ASSEMBLER Pain Scale Pain Scale Verbal 0-10 : Open NOLA WILLIAMSON RN - 03/05/2015 12:50 ELECTRONIC COMPONENTS ASSEMBLER Pain Pain Assessment Grid Pain 1 Location : Abdomen Intensity : 3 NOLA WILLIAMSON RN - 03/05/2015 12:50 ELECTRONIC COMPONENTS ASSEMBLER Source: [facility] [employer] Document Id: [id number] ELECTRONIC COMPONENTS ASSEMBLER!10 TRONIC COMPONENTS ASSEMBLER Nola Williamson R.N. - 03/05/2015 12:49 PM CST ED Disposition Summary ED Disposition Summary Entered On: 03/05/2015 12:49 ELECTRONIC COMPONENTS ASSEMBLER Performed On: 03/05/2015 12:49 ELECTRONIC COMPONENTS ASSEMBLER by NOLA WILLIAMSON RN ED Disposition Summary Accompanied By : Mother Mode of Discharge : Ambulatory Transportation : Private vehicle Printed Discharge Instructions Given to Patient : Yes Patient Status at Discharge from ED : Improved NOLA WILLIAMSON RN - 03/05/2015 12:49 ELECTRONIC COMPONENTS ASSEMBLER Source: [employer] Document Id: [id number] ELECTRONIC COMPONENTS ASSEMBLER!7 TRONIC COMPONENTS ASSEMBLER Nola Williamson R.N. - 03/05/2015 11:57 AM CST ED Nurse Reassess ED Nurse Reassess Entered On: 03/05/2015 12:02 ELECTRONIC COMPONENTS ASSEMBLER Performed On: 03/05/2015 11:57 ELECTRONIC COMPONENTS ASSEMBLER by NOLA WILLIAMSON RN Pain Assessment Pain Symptoms : Yes NOLA WILLIAMSON RN - 03/05/2015 12:02 ELECTRONIC COMPONENTS ASSEMBLER Pain Scale Pain Scale Verbal 0-10 : Open NOLA WILLIAMSON RN - 03/05/2015 12:02 ELECTRONIC COMPONENTS ASSEMBLER Pain Pain Assessment Grid Pain 1 Location : Abdomen Intensity : 5 NOLA WILLIAMSON RN - 03/05/2015 12:02 ELECTRONIC COMPONENTS ASSEMBLER GI Reassess GI Patient Stated Symptoms : Abdominal pain GI Note : Pt states she continues to have pain following medication. NOLA WILLIAMSON RN - 03/05/2015 12:02 ELECTRONIC COMPONENTS ASSEMBLER Source: [employer] Document Id: [id number] ELECTRONIC COMPONENTS ASSEMBLER!13 TRONIC COMPONENTS ASSEMBLER Mimi Vicente D.O. - 03/05/2015 10:28 AM CST Abdominal pain Patient: SILVIA MAY Age: 29 years Sex: Female : 1985 Author: MIMI VICENTE DO Attachments: None Basic Information History source: Patient. Arrival mode: Private vehicle. History limitation: None. Additional information: Chief Complaint from Nursing Triage Note : Chief Complaint Description 03/05/2015 9:27 ELECTRONIC COMPONENTS ASSEMBLER Chief Complaint Description pt woke up with rt upper abd pain today. Had her gallbladder removed 5 yrs ago. denies had my tubes tied. NO NAUSEA/VOMITING 03/05/2015 9:12 ELECTRONIC COMPONENTS ASSEMBLER Chief Complaint Description WOKE UP WITH RT [...] PowerChart. Cytopathology, slides, cervical or vaginal (the [place] System); manual screening under physician supervision.. ([id number]) in the week of 03/10/2004 at 18 Years. Comments: 04/18/2010 21:45 - [place]AL[place] Hx: [id number] - LAB-CYTOPATH, SM,D/V,TDS<3SM TECH 03/21/2013 17:41 - Contributor source changed to PowerChart.. Family history: No family history items have been selected or recorded.. Medical history. Physical Examination Vital Signs: Vital Signs 03/05/2015 10:23 ELECTRONIC COMPONENTS ASSEMBLER Peripheral Pulse Rate 78 /min Respiratory Rate 18 /min SpO2 97 % Systolic Blood Pressure 120 mmHg Diastolic Blood Pressure 73 mmHg Mean Arterial Pressure 89 mmHg 03/05/2015 9:33 ELECTRONIC COMPONENTS ASSEMBLER Temperature Core 37.0 DegC Peripheral Pulse Rate 82 /min Respiratory Rate 19 /min SpO2 97 % Systolic Blood Pressure 117 mmHg Diastolic Blood Pressure 76 mmHg BP Location Left upper , SpO2 03/05/2015 10:23 ELECTRONIC COMPONENTS ASSEMBLER SpO2 97 % 03/05/2015 9:33 ELECTRONIC COMPONENTS ASSEMBLER SpO2 97 % . General: Alert and [...] renal stone, hepatitis, pancreatitis, pyelonephritis, ischemic bowel. awake overnight monitor:Normal sinus rhythm. Results review:Lab results : Lab View 03/05/2015 9:40 ELECTRONIC COMPONENTS ASSEMBLER Hgb 13.3 g/dL Hct 40.4 % WBC 6.1 x10(9)/L RBC 4.38 x10(12)/L MCV 92.2 fL RDW 12.3 % Platelet 213 x10(9)/L Neutro Absolute 3.06 10(9)/L Lymph Absolute 2.23 x10(9)/L [place] Absolute 0.38 x10(9)/L Eos Absolute 0.36 x10(9)/L [...] Lactic Acid Lvl 1.0 mmol/L 03/05/2015 9:26 ELECTRONIC COMPONENTS ASSEMBLER UA Color Yellow UA Clarity Slightly Cloudy [...] Stable. Disposition: Discharged: to home. Prescriptions: Prescription [facility]cer[facility] Super[facility] Pharmacy: Toradol 10 mg oral tablet (Prescribe): [...] Discharge ED Patient (Order Processing): 03/05/2015 12:20 ELECTRONIC COMPONENTS ASSEMBLER, Once. Electronically Signed By: MIMI VICENTE DO On: 03/07/2015 02:25 AM Modified by and Electronically Signed by: MIMI VICENTE DO On: 03/05/2015 12:21 PM Source[facility] Document Id: [id number]} TRONIC COMPONENTS ASSEMBLER Tri Smart, R.N. - 03/05/2015 9:27 AM CST ED Primary Assessment Document Has Been Updated ED Primary Assessment Entered On: 03/05/2015 9:30 ELECTRONIC COMPONENTS ASSEMBLER Performed On: 03/05/2015 9:27 ELECTRONIC COMPONENTS ASSEMBLER by TRI SMART RN Reason For Visit (As Of: 03/05/2015 09:30:43 ELECTRONIC COMPONENTS ASSEMBLER) Problems(Active) No Chronic Problems (Cerner :NKP ) Name of Problem: No Chronic Problems ; Recorder: NATY XIE MD; Confirmation: Confirmed ; Classification: Medical ; Code: NKP ; Last Updated: 05/15/2013 16:30 ELECTRONIC COMPONENTS ASSEMBLER; Life Cycle Date: 05/15/2013 ; Life Cycle Status: Active ; Vocabulary: Cerner Diagnoses(Active) Abdominal pain Date: 03/05/2015 ; Diagnosis Type: Reason For Visit ; Confirmation: Complaint of ; Clinical Dx: Abdominal pain ; Classification: Medical ; Clinical Service: Emergency medicine ; Code: PNED ; Probability: 0 ; Diagnosis Code: [id number] Triage Chief Complaint Description : pt woke up with rt upper abd pain today. Had her gallbladder removed 5yrs ago. denies had my tubes tied. NO NAUSEA/VOMITING Information Given By : Patient Accompanied By : Mother Mode of Arrival ED : Private vehicle Track : Medical Languages : [place] Patient Informed of Triage Location : Emergency department Treatments Prior to Arrival : None Are you ? : No Is Patient Female and 13-50 no hysterectomy : Yes Status : Patient denies DEON TRI Saundra GROVES - 03/05/2015 9:27 ELECTRONIC COMPONENTS ASSEMBLER Pain Assessment Pain Symptoms : Yes TRI SMART RN - 03/05/2015 9:27 ELECTRONIC COMPONENTS ASSEMBLER Comfort Measures Comfort Measures Grid [place] Application : Yes Positioning : Yes TRI SMART RN - 03/05/2015 9:27 ELECTRONIC COMPONENTS ASSEMBLER DENNY DCP GENERIC CODE Tracking Acuity : 3 -Urgent Tracking Group : [facility] ED/ AMARILIS SMARTEEN Saundra GROVES - 03/05/2015 9:27 ELECTRONIC COMPONENTS ASSEMBLER Allergy (As Of: 03/05/2015 09:30:43 ELECTRONIC COMPONENTS ASSEMBLER) Allergies (Active) NKA Estimated Onset Date: Unspecified ; Created By: KATIE BRUNNER MD; Reaction Status: Active ; Category: Drug ; Substance: NKA ; Type: Allergy ; Updated By: KATIE BRUNNER MD; Reviewed Date: 03/03/2015 13:23 ELECTRONIC COMPONENTS ASSEMBLER Respiratory Airway : Patent Respirations : Unlabored Respiratory Pattern : Regular Oxygen Therapy : Room air Respiratory Detailed Assessment : Yes TRI SMART RN - 03/05/2015 9:27 ELECTRONIC COMPONENTS ASSEMBLER Resp Detailed Respiratory Patient Stated Symptoms : None Distress : None Cough : None TIR SMART RN - 03/05/2015 9:27 ELECTRONIC COMPONENTS ASSEMBLER Cardiovascular Heart Rhythm : Regular Skin Color : Normal for ethnicity Skin Description : Dry Skin Temperature : Warm Cardiovascular Detailed Assessment : Yes TRI SMART RN - 03/05/2015 9:27 ELECTRONIC COMPONENTS ASSEMBLER CV Detailed CV Patient Stated Symptoms : None TRI SMART RN - 03/05/2015 9:27 ELECTRONIC COMPONENTS ASSEMBLER Neurological Last Well Time Known : Not applicable Level of Consciousness : Alert Orientation : Oriented x 3 Characteristics of Speech : Appropriate for age Neuro Patient Stated Symptoms : None TRI SMART RN - 03/05/2015 9:27 ELECTRONIC COMPONENTS ASSEMBLER ED Psychosocial Affect/Behavior : Calm, Cooperative, Appropriate Domestic Abuse Concerns : None Behavioral Health Screen/Safety Assmt : No TRI SMART RN - 03/05/2015 9:27 ELECTRONIC COMPONENTS ASSEMBLER Gastrointestinal Nutrition ED : Adequate GI Detailed Assessment : Yes TRI SMART RN - 03/05/2015 9:27 ELECTRONIC COMPONENTS ASSEMBLER GI Detailed GI Patient Stated Symptoms : Abdominal pain GI Note : RT UPPER ABD PAIN TODAY TRI SMART RN - 03/05/2015 9:27 ELECTRONIC COMPONENTS ASSEMBLER Musculoskeletal Fall Prevention Education Provided : Yes TRI SMART RN - 03/05/2015 9:27 ELECTRONIC COMPONENTS ASSEMBLER Social Habits Tobacco Use/Currently Using : Yes Exposure to Tobacco Smoke : Patient smokes, Other: occ alcohol Smoking Status : Current every day smoker TRI SMART RN - 03/05/2015 9:27 ELECTRONIC COMPONENTS ASSEMBLER Tobacco Use Grid Cigarette Use Packs/Day : 0.5 TRI SMART RN - 03/05/2015 9:27 ELECTRONIC COMPONENTS ASSEMBLER Source: [facility] Document Id: [id number] ELECTRONIC COMPONENTS ASSEMBLER!66 TRONIC COMPONENTS ASSEMBLER Tri Smart R.N. - 03/05/2015 9:12 AM CST ED Triage Assessment Document Has Been Updated ED Triage Assessment Entered On: 03/05/2015 9:17 ELECTRONIC COMPONENTS ASSEMBLER Performed On: 03/05/2015 9:12 ELECTRONIC COMPONENTS ASSEMBLER by TRI SMART RN Reason For Visit (As Of: 03/05/2015 09:17:31 ELECTRONIC COMPONENTS ASSEMBLER) Problems(Active) No Chronic Problems (Cerner :NKP ) Name of Problem: No Chronic Problems ; Recorder: NATY XIE MD; Confirmation: Confirmed ; Classification: Medical ; Code: NKP ; Last Updated: 05/15/2013 16:30 ELECTRONIC COMPONENTS ASSEMBLER; Life Cycle Date: 05/15/2013 ; Life Cycle Status: Active ; Vocabulary: Cerner Diagnoses(Active) Abdominal pain Date: 03/05/2015 ; Diagnosis Type: Reason For Visit ; Confirmation: Complaint of ; Clinical Dx: Abdominal pain ; Classification: Medical ; Clinical Service: Emergency medicine ; Code: PNED ; Probability: 0 ; Diagnosis Code: [id number] Triage Chief Complaint Description : WOKE UP WITH RT UPPER ABD PAIN TODAY. HAD HER GALLBLADDER REMOVED 5 YRS AGO . DENIES ANY INJURY. NO NAUSEA/VOMITING Information Given By : Patient Accompanied By : Mother Mode of Arrival ED : Private vehicle Track : Medical Languages : [place] Patient Informed of Triage Location : Emergency department Treatments Prior to Arrival : None Is Patient Female and 13-50 no hysterectomy : Yes TRI SMART RN - 03/05/2015 9:12 ELECTRONIC COMPONENTS ASSEMBLER Pain Assessment Pain Symptoms : Yes TRI SMART RN - 03/05/2015 9:12 ELECTRONIC COMPONENTS ASSEMBLER Pain Scale Pain Scale Verbal 0-10 : Open TRI SMART RN - 03/05/2015 9:12 ELECTRONIC COMPONENTS ASSEMBLER Pain Pain Assessment Grid Pain 1 Location : Abdomen (Comment: RT UPPER [TRI SMART RN - 03/05/2015 9:12 ELECTRONIC COMPONENTS ASSEMBLER] ) Laterality : Right Intensity : 9 TRI SMART RN - 03/05/2015 9:12 ELECTRONIC COMPONENTS ASSEMBLER DENNY DCP GENERIC CODE Tracking Acuity : 3 -Urgent Tracking Group : [facility] ED/[facility] TRI SMART RN - 03/05/2015 9:12 ELECTRONIC COMPONENTS ASSEMBLER Source: [facility] [employer] Document Id: [id number] ELECTRONIC COMPONENTS ASSEMBLER!25 TRONIC COMPONENTS ASSEMBLER documented in this encounter Miscellaneous Notes Miscellaneous - Nola Williamson R.N. - 03/05/2015 12:50 PM CST Valuables/Belongings Valuables/Belongings Entered On: 03/05/2015 12:50 ELECTRONIC COMPONENTS ASSEMBLER Performed On: 03/05/2015 12:50 ELECTRONIC COMPONENTS ASSEMBLER by NOLA WILLIAMSON RN Valuables/Belongings Comment : all belongings sent with pt NOLA WILLIAMSON RN - 03/05/2015 12:50 ELECTRONIC COMPONENTS ASSEMBLER Source: [facility] [employer] Document Id: [id number] ELECTRONIC COMPONENTS ASSEMBLER!3 TRONIC COMPONENTS ASSEMBLER Miscellaneous - Conversion, Historical Provider Ser - 03/05/2015 12:50 PM ELECTRONIC COMPONENTS ASSEMBLER Coding Summary-Paper Based CODING DATE: 03/21/2015 FINAL [facility] STATUS: * Discharged to Home [...] ACEVES Date Saved: 03/21/2015 10:19 am Source: [employer] Document Id: [id number] documented in this encounter Plan of Treatment Not on filedocumented as of this encounter Procedures Procedure Name Priority Date/Time Associated Comments Diagnosis CT ABDOMEN KIDNEY Routine 03/05/2015 11:16 Result s for this STONE WITHOUT IV AM ELECTRONIC COMPONENTS ASSEMBLER procedure a re in CONTRAST the results section. AUTOMATED Routine 03/05/2015 9:40 AM Results f or this DIFFERENTIAL, B ELECTRONIC COMPONENTS ASSEMBLER procedure ar e in the results section. CBC WITH DIFFERENTIAL, Routine 03/05/2015 9:40 AM Results for this B ELECTRONIC COMPONENTS ASSEMBLER procedure are i n the results section. LIPASE, S/P Routine 03/05/2015 9:40 AM Results f or this ELECTRONIC COMPONENTS ASSEMBLER procedure are i n the results section. LACTATE, B/P Routine 03/05/2015 9:40 AM Results f or this ELECTRONIC COMPONENTS ASSEMBLER procedure are i n the results section. COMPREHENSIVE Routine 03/05/2015 9:40 AM Results for this METABOLIC PANEL, S/P ELECTRONIC COMPONENTS ASSEMBLER procedu re are in the results section. HXUR % DYSMORPHIC RBC Routine 03/05/2015 9:26 AM Results for this ELECTRONIC COMPONENTS ASSEMBLER procedure are i n the results section. URINALYSIS, MIDSTREAM, Routine 03/05/2015 9:26 AM Results for this WITH CULTURE IF ELECTRONIC COMPONENTS ASSEMBLER procedure ar e in INDICATED the results section. BACTERIAL CULTURE, Routine 03/05/2015 9:26 AM Res ults for this AEROBIC, URINE ELECTRONIC COMPONENTS ASSEMBLER procedure are in the results section. documented in this encounter Results CT Abdomen Kidney Stone without IV Contrast (03/05/2015 11:16 AM ELECTRONIC COMPONENTS ASSEMBLER) Anatomical Region Laterality Modality Abdomen, Pelvis Computed Tomography Specimen (Source) Anatomical Collection Method Collection Time Re ceived Time Location / / Volume Laterality 03/05/2015 11:16 AM ELECTRONIC COMPONENTS ASSEMBLER Impressions 03/05/2015 11:54 AM ELECTRONIC COMPONENTS ASSEMBLER Small vague Ill-defined consolidative process in the [...] abdomen and pelvis. Narrative 03/05/2015 11:54 AM ELECTRONIC COMPONENTS ASSEMBLER EXAM: CT Stone Protocol INDICATION: right flank [...] bowel loops throughout the abdomen and pelvis. Vianney Kurtz R.N. IMG CT PROCEDURES Automated Differential (03/05/2015 9:40 AM ELECTRONIC COMPONENTS ASSEMBLER) athologist Signature Absolute 3.06 1.70 - POWERCHART Neutrophils 7.00 109L Lymphocytes 2.23 0.90 - POWERCHART 2.90 X109L Monocytes 0.38 0.30 - POWERCHART 0.90 X109L Eosinophils 0.36 0.05 - POWERCHART 0.50 X109L Absolute 0.03 0.00 - POWERCHART Basophil 0.30 X109L Specimen Anatomical Collection Method Collection Time Receive d Time (Source) Location / / Volume Laterality Blood 03/05/2015 9:40 AM 5 9:40 ELECTRONIC COMPONENTS ASSEMBLER AM ELECTRONIC COMPONENTS ASSEMBLER Mimi Vicente D.O. LAB BLOOD ADD-ON Performing Organization Address City/State/ZIP Code Phon e Number POWERCHART CBC with Differential (03/05/2015 9:40 AM ELECTRONIC COMPONENTS ASSEMBLER) athologist Signature Leukocytes 6.1 3.4 - 10.5 POWERCHART X109L Erythrocytes 4.38 3.90 - 5.03 POWERCHART [id number] Hemoglobin 13.3 12.0 - 15.5 POWERCHART GDL Hematocrit 40.4 34.9 - 44.5 POWERCHART MCV 92.2 82.0 - 98.0 POWERCHART FL HX RDW 12.3 11.9 - 15.5 POWERCHART Platelet Count 213 150 - 450 POWERCHART X109L Specimen (Source) Anatomical Collection Method Collection Time Re ceived Time Location / / Volume Laterality Blood 03/05/2015 9:40 AM ELECTRONIC COMPONENTS ASSEMBLER Mimi Vicente D.O. LAB BLOOD ADD-ON Performing Organization Address City/State/ZIP Code Phon e Number POWERCHART Lipase (03/05/2015 9:40 AM ELECTRONIC COMPONENTS ASSEMBLER) P athologist Signature Lipase, S 27 13 - 60 UL POWERCHART Comment: Reference values have not been established for patients that are <18 years of age. Specimen (Source) Anatomical Collection Method Collection Time Re ceived Time Location / / Volume Laterality Blood 03/05/2015 9:40 AM ELECTRONIC COMPONENTS ASSEMBLER Mimi Vicente D.O. LAB BLOOD ADD-ON Performing Organization Address City/State/ZIP Code Phon e Number POWERCHART Lactate (03/05/2015 9:40 AM ELECTRONIC COMPONENTS ASSEMBLER) P athologist Signature Lactate, P 1.0 0.5 - 2.2 POWERCHART MMOLL Specimen (Source) Anatomical Collection Method Collection Time Re ceived Time Location / / Volume Laterality Blood 03/05/2015 9:40 AM ELECTRONIC COMPONENTS ASSEMBLER Mimi Vicente D.O. LAB BLOOD NON ADD-ON Performing Organization Address City/State/ZIP Code Phon e Number POWERCHART CMP (Comprehensive Metabolic Panel) (03/05/2015 9:40 AM ELECTRONIC COMPONENTS ASSEMBLER) P athologist Signature Alanine 16 7 - [...] ed reference range. HXeGFR (MDRD) >60 >=60 [id number] POWERCHART eGFR Black/ >60 >=60 [id number] POWERCHART Bilirubin, Total, S 0.2 <=1.2 MGDL [...] / Volume Laterality Blood 03/05/2015 9:40 AM ELECTRONIC COMPONENTS ASSEMBLER Mimi Vicente D.O. LAB BLOOD ADD-ON Performing Organization Address [facility] Code Phon e Number POWERCHART HXUR % DYSMORPHIC RBC (03/05/2015 9:26 AM ELECTRONIC COMPONENTS ASSEMBLER) athologist Signature Dysmorphic RBC <=25 <=25 POWERCHART Specimen Anatomical Collection Method Collection Time Receive d Time (Source) Location / / Volume Laterality Urine, First 03/05/2015 9:26 AM 5 9:26 Voided ELECTRONIC COMPONENTS ASSEMBLER AM ELECTRONIC COMPONENTS ASSEMBLER Mimi Vicente D.O. LAB HISTORICAL ORDERS Performing Organization Address [facility] Phon e Number POWERCHART (ABNORMAL) Urinalysis, Midstream, with culture if indicated (03/05/2015 9:26 AM ELECTRONIC COMPONENTS ASSEMBLER) [employer] Method Time [...] (A) Negative POWERCHART Esterase Specific 1.021 POWERCHART Donaldson, POCT, U HXUR WBC. 11-20 (A) None Seen POWERCHART HPF HXUR RBC. 41-50 (A) None Seen POWERCHART HPF Squamous 4-10 (A) None Seen POWERCHART Epithelial HPF Mucus Present (A) None Seen POWERCHART Specimen (Source) Anatomical Collection Method Collection Time Re ceived Time Location / / Volume Laterality Urine, First 03/05/2015 9:26 AM Voided ELECTRONIC COMPONENTS ASSEMBLER Mimi Vicente D.O. LAB URINE ORDERABLES Performing Organization Address City/[facility] Phon e Number POWERCHART (ABNORMAL) Bacterial Culture, Aerobic, Urine (03/05/2015 9:26 AM ELECTRONIC COMPONENTS ASSEMBLER) [employer] Method Time Signature Bacterial ENTFAECA <=2 POWERCHART [...] First 03/05/2015 9:26 AM 5 9:34 Voided ELECTRONIC COMPONENTS ASSEMBLER AM ELECTRONIC COMPONENTS ASSEMBLER Organism Antibiotic Method Susceptibility Enterococcus faecalis Ampicillin [...]
--- OUTSIDE RECORDS SUMMARY | 2022-02-12 14:30 | XMS_ITS | Encounter Summary ---
:1985 Author Organization [facility] Address [address] [place] [address] Care Team Providers Name Role Phone Unavailable Primary Care Provider Unavailable Encounter Details Date Type Department Care Team Description 03/05/2014 Hospital Encounter HX [facility] ED Maite Sterling M. D. [address] [place], [place] [address] (Wo rk) Social History Tobacco Use Types Packs/Day Years Used Date Smoking Tobacco: Never Assessed Sex Assigned at Date Recorded Not on file documented as of this encounter Last Filed Vital Signs Vital Sign Reading Time Taken Comments Blood Pressure 140/83 03/05/2014 12:56 AM VACCINE CUSTOMER REPRESENTATIVE Pulse 97 03/05/2014 12:56 AM VACCINE CUSTOMER REPRESENTATIVE Temperature - - Respiratory Rate 18 03/05/2014 12:56 AM VACCINE CUSTOMER REPRESENTATIVE Oxygen Saturation - - Inhaled Oxygen Concentration - - Weight - - Height - - Body Mass Index - - documented in this encounter Discharge Summaries Valentina Jurado RJonathan. - 03/05/2014 2:11 AM CST ED Discharge Instructions [facility] [address] [place] [address] Name: SILVIA STEELE Date of : 1985 12:00 AM Visit Date: 03/05/2014 12:51 AM [facility] Number: [id number] Address: [address] [place] [id number] Primary Care Provider: PCP, DAVISSSMANE - YADIRA IMPORTANT: [facility] in [place] would like to thank you for allowing [...] Provider No Appointments found Patient Education Materials: [id number] MIDDLE EAR INFECTION (Adult) You have an [...] by your healthcare provider Convulsion (seizure) ?? [phone] [facility], [address] [place] [address], [place] [address]. All rights reserved. This information is not [...] home with a responsible green party. CEDRIC Wadr KRISTINA LYNN , or responsible green party have received this information and my questions have been answered. I have discussed any challenges I see with this plan with the nurse or physician. Patient Signature or Responsible Libertarian/Relationship Date Time Provider Signature Date Time Medication [...] document has images extracted. Please consider using [employer] for all your patient education needs. Source: [facility] POWERCHART Document Id: [id number] INE CUSTOMER REPRESENTATIVE Valentina Jurado R.N. - 03/05/2014 2:11 AM CST ED Depart Summary [facility] Emergency Department / Urgent Care Clinical Discharge Summary PERSON INFORMATION Name SILVIA STEELE Age 28 Years 1985 12:00 AM Sex Female Language Estonian PCP PCP, UNASSIGNED - [place] Marital Status Single Visit Id Visit Reason Ear pain; EAR PAIN Specialty Enc Type Emergency Med Service Emergency Medicine Referred by Track Group [facility] ED/[facility] Discharge 03/05/2014 2:11 AM Tracking Id [id number] Checkout 03/05/2014 2:11 AM Checkin 03/05/2014 12:51 AM Acuity 5 -Non Urgent Dispo Type * Discharged to Home or Self Care Arrival 03/05/2014 12:51 AM Reg Status Complete LOS 000 01:20 Address: [address] [place] [address] Comment: PROVIDER INFORMATION Provider Role Provider Contact [...] recheck Call for follow up appointment Source: [facility] NextUser Document Id: [id number] INE CUSTOMER REPRESENTATIVE documented in this encounter ED Notes Valentina Jurado REmekaN. - 03/05/2014 2:10 AM CST ED Disposition Summary ED Disposition Summary Entered On: 03/05/2014 2:10 VACCINE CUSTOMER REPRESENTATIVE Performed On: 03/05/2014 2:10 VACCINE CUSTOMER REPRESENTATIVE by VALENTINA JURADO RN ED Disposition Summary Accompanied By : Alone Mode of Discharge : Ambulatory Transportation : Private vehicle Discharge From ED With : Home Med List Printed Discharge Instructions Given to Patient : Yes Patient Status at Discharge from ED : Improved VALENTINA JURADO RN - 03/05/2014 2:10 VACCINE CUSTOMER REPRESENTATIVE Source: [facility] POWERCHART Document Id: [id number] VACCINE CUSTOMER REPRESENTATIVE!8 INE CUSTOMER REPRESENTATIVE Valentina Jurado R.N. - 03/05/2014 2:10 AM CST ED Pain Assessment ED Pain Assessment Entered On: 03/05/2014 2:10 VACCINE CUSTOMER REPRESENTATIVE Performed On: 03/05/2014 2:10 VACCINE CUSTOMER REPRESENTATIVE by VALENTINA JURADO RN Pain Assessment Pain Symptoms : Yes VALENTINA JURADO RN - 03/05/2014 2:10 VACCINE CUSTOMER REPRESENTATIVE Pain Pain Assessment Grid Pain 1 Location : Ear Laterality : Right Intensity : 5 VALENTINA JURADO RN - 03/05/2014 2:10 VACCINE CUSTOMER REPRESENTATIVE Source: [facility] NextUser Document Id: [id number] VACCINE CUSTOMER REPRESENTATIVE!9 INE CUSTOMER REPRESENTATIVE Valentina Jurado R.N. - 03/05/2014 2:04 AM CST ED Nurse Reassess ED Nurse Reassess Entered On: 03/05/2014 2:05 VACCINE CUSTOMER REPRESENTATIVE Performed On: 03/05/2014 2:04 VACCINE CUSTOMER REPRESENTATIVE by VALENTINA JURADO RN Pain Assessment Pain Symptoms : Yes VALENTINA JURADO RN - 03/05/2014 2:04 VACCINE CUSTOMER REPRESENTATIVE Pain Pain Assessment Grid Pain 1 Location : Ear Laterality : Right Intensity : 5 VALENTINA JURADO RN - 03/05/2014 2:04 VACCINE CUSTOMER REPRESENTATIVE EENT Reassess EENT Note : pt feeling much better VALENTINA JURADO RN - 03/05/2014 2:04 VACCINE CUSTOMER REPRESENTATIVE Source: [facility] NextUser Document Id: [id number] VACCINE CUSTOMER REPRESENTATIVE!11 INE CUSTOMER REPRESENTATIVE Maite Sterling M.D. - 03/05/2014 1:14 AM [...] PowerChart. Cytopathology, slides, cervical or vaginal (the Sodus System); manual screening under physician supervision ([id number]) in the week of 03/10/2004 at 18 Years. Comments: 04/18/2010 21:45 - CARMEN MORALES Hx: [id number] - LAB-CYTOPATH, SM,D/V,TDS<3SM TECH 03/21/2013 17:41 - Contributor source changed to PowerChart.. Family history: No family history items have been selected or recorded.. Physical Examination Vital Signs: Vital Signs 03/05/2014 0:56 VACCINE CUSTOMER REPRESENTATIVE Temperature Core 36.7 DegC Peripheral Pulse Rate 97 /min Respiratory Rate 18 /min SpO2 98 % Systolic Blood Pressure 140 mmHg Diastolic Blood Pressure 83 mmHg BP Location Left upper , SpO2 03/05/2014 0:56 VACCINE CUSTOMER REPRESENTATIVE SpO2 98 % . General: Alert and [...] Stable. Disposition: Discharged: to home. Prescriptions: Prescription [facility]: Tylenol with Codeine #3 oral tablet [...] STERLING MD On: 03/05/2014 01:19 AM Source: [facility] POWERCHART Document Id: [id number]} INE CUSTOMER REPRESENTATIVE Valentina Jurado R.N. - 03/05/2014 1:03 AM CST ED Primary Assessment Document Has Been Updated ED Primary Assessment Entered On: 03/05/2014 1:19 VACCINE CUSTOMER REPRESENTATIVE Performed On: 03/05/2014 1:03 VACCINE CUSTOMER REPRESENTATIVE by VALENTINA JURADO RN Reason For Visit (As Of: 03/05/2014 01:19:50 VACCINE CUSTOMER REPRESENTATIVE) Problems(Active) No Chronic Problems (Cerner :NKP ) Name of Problem: No Chronic Problems ; Recorder: NATY XIE MD; Confirmation: Confirmed ; Classification: Medical ; Code: NKP ; Last Updated: 05/15/2013 16:30 VACCINE CUSTOMER REPRESENTATIVE; Life Cycle Date: 05/15/2013 ; Life Cycle Status: Active ; Vocabulary: Cerner Diagnoses(Active) Ear pain Date: 03/05/2014 ; Diagnosis Type: Reason For Visit ; Confirmation: Complaint of ; ClinicalDx: Ear pain ; Classification: Medical ; Clinical Service: Emergency medicine ; Code: PNED ; Probability: 0 ; Diagnosis Code: [id number] Triage Chief Complaint Description : pt arrives with c/o sudden onset of right ear pain. Information Given By : Patient Mode of Arrival ED : Private vehicle Track : Medical Languages : Estonian Treatments Prior to Arrival : None Are you ? : No Is Patient Female and 13-50 no hysterectomy : Yes Status : Patient denies VALENTINA JURADO RN - 03/05/2014 1:03 VACCINE CUSTOMER REPRESENTATIVE Pain Assessment Pain Symptoms : Yes VALENTINA JURADO RN - 03/05/2014 1:03 VACCINE CUSTOMER REPRESENTATIVE Pain Pain Assessment Grid Pain 1 Location : Ear Laterality : Right Intensity : 10 VALENTINA JURADO RN - 03/05/2014 1:03 VACCINE CUSTOMER REPRESENTATIVE DENNY DCP GENERIC CODE Tracking Acuity : 5 -Non Urgent Tracking Group : [facility] ED/ VALENTINA JURADO RN - 03/05/2014 1:03 VACCINE CUSTOMER REPRESENTATIVE Allergy (As Of: 03/05/2014 01:19:50 VACCINE CUSTOMER REPRESENTATIVE) Allergies (Active) NKA Estimated Onset Date: Unspecified ; Created By: KATIE BRUNNER MD; Reaction Status: Active ; Category: Drug ; Substance: NKA ; Type: Allergy ; Updated By: KATIE BRUNNER MD; Reviewed Date: 03/05/2014 1:19 VACCINE CUSTOMER REPRESENTATIVE ID Screen Travel Within Last 21 Days : No VALENTINA JURADO RN - 03/05/2014 1:03 VACCINE CUSTOMER REPRESENTATIVE Respiratory Airway : Patent Respirations : Unlabored Respiratory Pattern : Regular VALENTINA JURADO RN - 03/05/2014 1:03 VACCINE CUSTOMER REPRESENTATIVE Cardiovascular Heart Rhythm : Regular Skin Color : Normal for ethnicity Skin Description : Dry Skin Temperature : Warm VALENTINA JURADO RN - 03/05/2014 1:03 VACCINE CUSTOMER REPRESENTATIVE Neurological Last Well Time Known : Not applicable Level of Consciousness : Alert Orientation : Oriented x 3 Characteristics of Speech : Clear VALENTINA JURADO RN - 03/05/2014 1:03 VACCINE CUSTOMER REPRESENTATIVE ED Psychosocial Affect/Behavior : Calm, Cooperative, Appropriate Domestic Abuse Concerns : None VALENTINA JURADO RN - 03/05/2014 1:03 VACCINE CUSTOMER REPRESENTATIVE Gastrointestinal Nutrition ED : Adequate VALENTINA JURADO RN - 03/05/2014 1:03 VACCINE CUSTOMER REPRESENTATIVE Musculoskeletal Fall Prevention Education Provided : Yes VALENTINA JURADO RN - 03/05/2014 1:03 VACCINE CUSTOMER REPRESENTATIVE EENT EENT Ear Grid Ear, Right Symptoms : Pain VALENTINA JURADO RN - 03/05/2014 1:03 VACCINE CUSTOMER REPRESENTATIVE Social Habits Tobacco Use/Currently Using : No Exposure to Tobacco Smoke : Patient smokes, Other: occ alcohol Smoking Status : Never smoker VALENTINA JURADO RN - 03/05/2014 1:03 VACCINE CUSTOMER REPRESENTATIVE Source: [facility] POWERCHART Document Id: [id number] VACCINE CUSTOMER REPRESENTATIVE!54 INE CUSTOMER REPRESENTATIVE documented in this encounter Miscellaneous Notes Miscellaneous - Valentina Jurado R.N. - 03/05/2014 2:10 AM CST Valuables/Belongings Valuables/Belongings Entered On: 03/05/2014 2:10 VACCINE CUSTOMER REPRESENTATIVE Performed On: 03/05/2014 2:10 VACCINE CUSTOMER REPRESENTATIVE by VALENTINA JURADO RN Valuables/Belongings Valuables/Belongings Grid Valuables with Patient Clothes, Patient Valuables : Coat, Pants, Shirt, Shoes VALENTINA JURADO RN - 03/05/2014 2:10 VACCINE CUSTOMER REPRESENTATIVE Source: [facility] POWERCHART Document Id: [id number] VACCINE CUSTOMER REPRESENTATIVE!5 INE CUSTOMER REPRESENTATIVE documented in this encounter Plan of Treatment Not on filedocumented as of this encounter Visit Diagnoses Not on filedocumented in this encounter
--- OUTSIDE RECORDS SUMMARY | 2022-02-12 14:30 | XMS_ITS | Encounter Summary ---
:1985 Author Organization [facility] Address [address] [place] [id number] Care Team Providers Name Role Phone Unavailable Primary Care Provider Unavailable Encounter Details Date Type Department Care Team Description 04/06/2015 - Hospital Encounter HX [facility] ED Juan Carlos Mckeon, 04/07/2015 [place] [address] Social History Tobacco Use Types Packs/Day Years Used Date Smoking Tobacco: Never Assessed Sex Assigned at Date Recorded Not on file documented as of this encounter Last Filed Vital Signs Vital Sign Reading Time Taken Comments Blood Pressure 119/68 04/07/2015 1:37 AM CONTRACT CLERK Pulse 98 04/06/2015 11:26 PM CONTRACT CLERK Temperature - - Respiratory Rate 18 04/07/2015 1:37 AM CONTRACT CLERK Oxygen Saturation - - Inhaled Oxygen Concentration - - Weight - - Height - - Body Mass Index - - documented in this encounter Discharge Summaries Del Farfan, R.N. - 04/07/2015 2:22 AM CST ED Discharge Instructions [place] [phone] Name: SILVIA STEELE Date of : 1985 12:00 AM Visit Date: 04/06/2015 11:15 PM [facility] Number: [id number] Address: [address] [place] [address] Primary Care Provider: SOFIE VÁZQUEZ MD IMPORTANT: [facility] in [place] would like to thank you for allowing us to assist youwith your healthcare needs. The following includes patient education materials and information regarding your injury/illness. Diagnosis: Follow-Up Instructions: With: Address: When: Return to Emergency Department Within As Needed With: Address: When: SOFIE VÁZQUEZ [address] [place] [address] [phone] Business (1) Within As Needed Your Upcoming [...] with fever medication ?? New rash ?? [id number] Lennie Swain, [address] [place] [address], [place] [address]. All rights reserved. This information is not [...] if you dont have one. Go to [email or web address] and click on Create Your Account. Then, follow the directions to complete the online form. Youll be asked for your [facility] number which you can find at the top of this document. ED Tests and Procedures: Order Status Urinalysis with Culture if Indicated Completed Discharge Prescriptions & Home Medications: Medication/Strength Dose Route Frequency Indications/Special Instructions/Comments/Notes ondansetron (ondansetron 4 mg oral tablet, disintegrating) 4 mg Oral every 6 hours as needed for Nausea/vomiting PXYIS DISCHARGE PACK [facility] Prescription (work excuse) See Instructions please excuse from work until 04/07 ondansetron (Zofran 4 mg oral tablet) 4 mg Oral every 4 hours lidocaine topical (Lidoderm 5% topical film) 1 patch(es) Topical once a day Apply to intact skin andremove patch after a maximum of 12 hr of application within a 24 hr period [facility] Prescription (School excuse) See Instructions Please excuse [...] document has images extracted. Please consider using [employer] for all your patient education needs. Source: [facility] POWERCHART Document Id: [id number] RACT CLERK Del Farfan, R.N. - 04/07/2015 2:22 AM CST ED Depart Summary [facility] Emergency Department / Urgent Care Clinical Discharge Summary PERSON INFORMATION Name SILVIA STEELE Age 29 Years 1985 12:00 AM Sex Female Language British PCP SOFIE VÁZQUEZ MD Marital Status Single Visit Id Visit Reason Vomiting; vomitting Specialty Enc Type Emergency Med Service Emergency Medicine Referred by Track Group [facility] ED/UC Discharge 04/07/2015 1:50 AM Tracking Id [id number] Checkout 04/07/2015 1:50 AM Checkin 04/06/2015 11:15 PM Acuity 3 -Urgent Dispo Type * Discharged to Home or Self Care Arrival 04/06/2015 11:15 PM Reg Status Complete LOS 000 02:35 Address: [address] [place] [id number] Comment: PROVIDER INFORMATION Provider Role Provider Contact Time JUAN CARLOS MCKEON MD ED Provider 04/06/15 23:17 JUAN CARLOS MCKEON MD ED Provider 04/06/15 23:29 DEL FARFAN FIRE INSPECTOR Nurse 04/07/15 00:01 DIAGNOSIS Comment: PATIENT EDUCATION INFORMATION Instructions: GASTROENTERITIS, Viral [6y-Adult] Follow up: With: Address: When: Return to Emergency Department Within As Needed With: Address: When: SOFIE VÁZQUEZ [address] [place] [address] [phone] Business (1) Within As Needed [facility] Document Id: [id number] RACT CLERK documented in this encounter ED Notes Del Farfan RJonathan. - 04/07/2015 2:20 AM CST ED Treatments and Procedures ED Treatments and Procedures Entered On: 04/07/2015 2:20 CONTRACT CLERK Performed On: 04/07/2015 2:20 CONTRACT CLERK by DEL FARFAN RN Peripheral IV Peripheral IV Assess/Intervention Grid Peripheral IV #1 IV Activity : Discontinue Removal : Catheter intact, Hemostasis within expected timeframe Number of Attempts : 1 Date of Insertion : 04/07/2015 CONTRACT CLERK Discontinued Date : 04/07/2015 CONTRACT CLERK IV Site : Antecubital Laterality : Left Catheter Size : 20 Catheter Type : Over the needle DEL FARFAN RN - 04/07/2015 2:20 CONTRACT CLERK Source: [facility] Document Id: [id number] CONTRACT CLERK!13 RACT CLERK Del Farfan, R.N. - 04/07/2015 2:20 AM CST ED Disposition Summary ED Disposition Summary Entered On: 04/07/2015 2:20 CONTRACT CLERK Performed On: 04/07/2015 2:20 CONTRACT CLERK by DEL FARFAN FIRE INSPECTOR Disposition Summary Accompanied By : Alone Mode of Discharge : Ambulatory Transportation : Private vehicle Discharge From ED With : Home Med List Printed Discharge Instructions Given to Patient : Yes Patient Status at Discharge from ED : Improved DEL FARFAN RN - 04/07/2015 2:20 CONTRACT CLERK Source: [facility] Document Id: [id number] CONTRACT CLERK!8 RACT CLERK Del Farfan REmekaN. - 04/07/2015 2:20 AM CST ED Pain Assessment ED Pain Assessment Entered On: 04/07/2015 2:20 CONTRACT CLERK Performed On: 04/07/2015 2:20 CONTRACT CLERK by DEL FARFAN RN Pain Assessment Pain Symptoms : No DEL FARFAN RN - 04/07/2015 2:20 CONTRACT CLERK Source: [facility] POWERCHART Document Id: [id number] CONTRACT CLERK!3 RACT CLERK Del Farfan R.N. - 04/07/2015 12:11 AM CST ED Primary Assessment Document Has Been Updated ED Primary Assessment Entered On: 04/07/2015 0:20 CONTRACT CLERK Performed On: 04/07/2015 0:11 CONTRACT CLERK by DEL FARFAN RN Reason For Visit (As Of: 04/07/2015 00:20:17 CONTRACT CLERK) Problems(Active) No Chronic Problems (Cerner :NKP ) Name of Problem: No Chronic Problems ; Recorder: NATY XIE MD; Confirmation: Confirmed ; Classification: Medical ; Code: NKP ; Last Updated: 05/15/2013 16:30 CONTRACT CLERK; Life Cycle Date: 05/15/2013 ; Life Cycle Status: Active ; Vocabulary: Cerner Diagnoses(Active) Vomiting Date: 04/06/2015 ; Diagnosis Type: Reason For Visit ; Confirmation: Confirmed ; Clinical Dx: Vomiting ; Classification: Medical ; Clinical Service: Emergency medicine ; Code: PNED ; Probability: 0 ; Diagnosis Code: [id number] Triage Chief Complaint Description : 29 y/o female presents to ED d/t complaints of N/V Patient notes unable to any fluids or food down. Information Given By : Patient Accompanied By : Alone Mode of Arrival ED : Private vehicle Track : Medical Languages : British Treatments Prior to Arrival : None Are you ? : No Is Patient Female and 13-50 no hysterectomy : Yes Status : Patient denies DEL FARFAN RN - 04/07/2015 0:11 CONTRACT CLERK Pain Assessment Pain Symptoms : No DEL FARFAN RN - 04/07/2015 0:11 CONTRACT CLERK DENNY DCP GENERIC CODE Tracking Acuity : 3 -Urgent Tracking Group : [facility] ED/ DEL FARFAN RN - 04/07/2015 0:11 CONTRACT CLERK Respiratory Airway : Patent Respirations : Unlabored Respiratory Pattern : Regular Oxygen Therapy : Room air DEL FARFAN RN - 04/07/2015 0:11 CONTRACT CLERK Cardiovascular Heart Rhythm : Regular Skin Color : Normal for ethnicity Skin Description : Dry Skin Temperature : Warm DEL FARFAN RN - 04/07/2015 0:11 CONTRACT CLERK Neurological Last Well Time Known : Not applicable Level of Consciousness : Alert Orientation : Oriented x 3 Characteristics of Speech : Appropriate for age Neuro Patient Stated Symptoms : None Gait : Steady DEL FARFAN RN - 04/07/2015 0:11 CONTRACT CLERK ED Psychosocial Affect/Behavior : Calm, Cooperative, Appropriate Domestic Abuse Concerns : None Behavioral Health Screen/Safety Assmt : No Emotional Support Available : No DEL FARFAN RN - 04/07/2015 0:11 CONTRACT CLERK Gastrointestinal Nutrition ED : Adequate DEL FARFAN RN - 04/07/2015 0:11 CONTRACT CLERK Musculoskeletal Fall Prevention Education Provided : NA Activity Lázaro : Walks frequently DEL FARFAN RN - 04/07/2015 0:11 CONTRACT CLERK Social Habits Exposure to Tobacco Smoke : Patient smokes, Other: occ alcohol Smoking Status : Current every day smoker Tobacco 2A : Yes Tobacco Use/Currently Using : Yes Tobacco Use/Last 30 Days : Yes Tobacco Use/Last 12 months : Yes DEL FARFAN RN - 04/07/2015 0:11 CONTRACT CLERK Peripheral IV Peripheral IV Assess/Intervention Grid Peripheral IV #1 IV Activity : Start Number of Attempts : 1 Date of Insertion : 04/07/2015 CONTRACT CLERK IV Site : Antecubital Laterality : Left Catheter Size : 20 Catheter Type : Over the needle Site Condition : No complications Comments (Comment: Patient tollerated well. [DEL FARFAN RN - 04/07/2015 0:11 CONTRACT CLERK] ) DEL FARFAN RN - 04/07/2015 0:11 CONTRACT CLERK Source: [facility] POWERCHART Document Id: [id number] CONTRACT CLERK!63 RACT CLERK Juan Carlos Mckeon M.D. - 04/06/2015 11:44 PM CST Vomiting Patient: SILVIA STEELE Age: 29 years Sex: Female : 1985 Author: JUAN CARLOS MCKEON MD Attachments: None Basic Information Time seen: [...] PowerChart. Cytopathology, slides, cervical or vaginal (the Paoli System); manual screening under physician supervision.. ([id number]) in the week of 03/10/2004 at 18 Years. Comments: 04/18/2010 21:45 - GLOCARMEN EPSTEIN Hx: [id number] - LAB-CYTOPATH, SM,D/V,TDS<3SM TECH 03/21/2013 17:41 - Contributor source changed to PowerChart.. Social history: Reviewed as documented in chart. Physical Examination Vital Signs: Vital Signs 04/06/2015 23:39 CONTRACT CLERK Heart Rate Monitored 116 /min HI Pulse SpO2 110 /min Respiratory Rate 21 /min HI SpO2 94 % Blood Pressure Location Right upper 04/06/2015 23:26 CONTRACT CLERK Temperature Core 36.6 DegC Peripheral Pulse Rate 98 /min Respiratory Rate 22 /min HI SpO2 95 % Systolic Blood Pressure 100 mmHg Diastolic Blood Pressure 78 mmHg , SpO2 04/06/2015 23:39 CONTRACT CLERK SpO2 94 % 04/06/2015 23:26 CONTRACT CLERK SpO2 95 % . General: Alert and [...] diarrhea, food toxicity, gastritis. Documents reviewed:Prior records. correctional security officer:Sinus Tachycardia. Results review:Lab results : Lab View 04/06/2015 23:30 CONTRACT CLERK UA Color Yellow UA Clarity Clear UA [...] with low suspicion for acute abdominal, , CONTENT ASSISTANT pathology warranting further emergent work up. Based [...] MCKEON MD On: 04/07/2015 12:45 AM Source: [facility] Document Id: [id number]} RACT CLERK documented in this encounter Miscellaneous Notes Miscellaneous - Del Farfan, R.N. - 04/07/2015 2:21 AM CST Valuables/Belongings Valuables/Belongings Entered On: 04/07/2015 2:21 CONTRACT CLERK Performed On: 04/07/2015 2:21 CONTRACT CLERK by DEL FARFAN RN Valuables/Belongings Belongings Sent Home With : Patient DEL FARFAN RN - 04/07/2015 2:21 CONTRACT CLERK Source: [facility] Document Id: [id number] CONTRACT CLERK!3 RACT CLERK Miscellaneous - Del Farfan, R.N. - 04/07/2015 2:19 AM CST Communication Note Communication Note Entered On: 04/07/2015 2:20 CONTRACT CLERK Performed On: 04/07/2015 2:19 CONTRACT CLERK by DEL FARFAN RN Communication Assessment Communication Note : Patient states she feels much inproved at discharge, Patient will follow up with her PCP or return to ED if needed. DEL FARFAN RN - 04/07/2015 2:19 CONTRACT CLERK [facility] Document Id: [id number] CONTRACT CLERK!3 RACT CLERK Miscellaneous - Conversion, Historical Provider Ser - 04/07/2015 1:50 AM CONTRACT CLERK Coding Summary-Paper Based CODING DATE: 04/16/2015 FINAL [facility] STATUS: * [...] STEINBERG Date Saved: 04/16/2015 08:00 am [facility] Document Id: [id number] Miscellaneous - Del Farfan, R.N. - 04/06/2015 11:15 PM CST Facility Charge Ticket 2.0 11.0 DX Facility Charge Ticket 2.0 11.0 DX Entered On: 04/07/2015 2:21 CONTRACT CLERK Performed On: 04/06/2015 23:15 CONTRACT CLERK by DEL FARFAN RN Facility Charge Ticket [...] Nursing Notes ED Primary Assessment,04/07/15 00:11,DEL FARFAN FIRE INSPECTOR Pain Assessment,04/07/15 02:20,DEL FARFAN RN Communication Note,04/07/15 02:19,DEL FARFAN RN Lynx Disposition : Discharge Disposition RTF : discharge Treatments Prior to Arrival : None DEL FARFAN RN - 04/07/2015 2:21 CONTRACT CLERK Source: [facility] POWERCHART Document Id: [id number] CONTRACT CLERK!16 RACT CLERK documented in this encounter Plan of Treatment Not on filedocumented as of this encounter Procedures Procedure Name Priority Date/Time Associated Diagnosis Comme nts URINALYSIS, Routine 04/06/2015 11:30 PM Results for this MIDSTREAM, WITH CONTRACT CLERK procedure ar e in CULTURE IF the results INDICATED section. documented in this encounter Results (ABNORMAL) Urinalysis, Midstream, with culture if indicated (04/06/2015 11:30 PM CONTRACT CLERK) [facility] Method Time Signature HXUr Color Yellow [...] Negative Negative POWERCHART Esterase Specific >=1.030 POWERCHART [place], POCT, U HXUR WBC. Occ-3 None Seen POWERCHART HPF HXUR RBC. Occ-2 None Seen POWERCHART HPF Squamous 4-10 (A) None Seen POWERCHART Epithelial HPF Mucus Present (A) None Seen POWERCHART Casts, Hyaline 1-3 (A) None Seen POWERCHART LPF Specimen (Source) Anatomical Collection Method Collection Time Re ceived Time Location / / Volume Laterality Urine, First 04/06/2015 11:30 Voided PM CONTRACT CLERK Juan Carlos Mckeon M.D. LAB URINE ORDERABLES Performing Organization Address City/State/ZIP Code Phon e Number POWERCHART documented in this encounter Visit Diagnoses Not on filedocumented in this encounter
--- OUTSIDE RECORDS SUMMARY | 2022-02-12 14:30 | XMS_ITS | Encounter Summary ---
:1985 Author Organization [facility] Address [address] [place] [address] Care Team Providers Name Role Phone Unavailable Primary Care Provider Unavailable Encounter Details Date Type Department Care Team Description 07/09/2015 Hospital Encounter HX [facility] Tee Niño APRN, C.N.P., D.N.P. [address] [place] [phone] (Wo rk) Social History Tobacco Use Types Packs/Day Years Used Date Smoking Tobacco: Never Assessed Sex Assigned at Date Recorded Not on file documented as of this encounter Last Filed Vital Signs Vital Sign Reading Time Taken Comments Blood Pressure 125/64 07/09/2015 3:21 PM DEPARTMENT MGR Pulse 102 07/09/2015 3:21 PM DEPARTMENT MGR Temperature - - Respiratory Rate 16 07/09/2015 3:21 PM DEPARTMENT MGR Oxygen Saturation - - Inhaled Oxygen Concentration - - Weight - - Height 169 cm (5' 6.54) 07/09/2015 3:21 PM DEPARTMENT MGR Body Mass Index - - documented in this encounter Discharge Summaries Zaheer Arthur, L.P.N. - 07/09/2015 4:00 PM CST ED Discharge Instructions [facility] [address] [place] [address] Name: SILVIA STEELE Date of : 1985 12:00 AM Visit Date: 07/09/2015 3:13 PM [facility] Number: [id number] Address: [address] [place] [address] Primary Care Provider: SOFIE VÁZQUEZ MD IMPORTANT: [facility] in [place] would like to thank you for allowing [...] ?? Muffled voice ?? New rash ?? [id number] [facility], [address] [place] [address], [place] [address]. All rights reserved. This information is not [...] if you dont have one. Go to [email or web address] and click on Create Your Account. Then, follow the directions to complete the online form. Youll be asked for your [facility] number which you can find at the top of this document. ED Tests and Procedures: Order Status Strep A Screen Rapid Completed Discharge Prescriptions & Home Medications: Medication/Strength Dose Route Frequency Indications/Special Instructions/Comments/Notes [id number] V potassium (penicillin V potassium 500 mg [...] document has images extracted. Please consider using [employer] for all your patient education needs. Source: [facility] Document Id: [id number] RTMENT MGR Zaheer Arthur L.P.N. - 07/09/2015 4:00 PM CST ED Depart Summary [facility] Emergency Department / Urgent Care Clinical Discharge Summary PERSON INFORMATION Name SILVIA STEELE Age 30 Years 1985 12:00 AM Sex Female Language Micronesian PCP SOFIE VÁZQUEZ MD Marital Status Single Visit Id Visit Reason UC - Sore Throat; SORE THROAT - BODY ACHES Specialty Enc Type Hospital Outpatient Med Service Urgent Care Referred by Track Group [facility] ED/UC Discharge 07/09/2015 4:00 PM Tracking Id [id number] Checkout 07/09/2015 4:00 PM Checkin 07/09/2015 3:13 PM Acuity 4 -Less Urgent Dispo Type * Discharged to Home or Self Care Arrival 07/09/2015 3:13 PM Reg Status Complete LOS 000 00:47 Address: [address] [place] [address] Comment: PROVIDER INFORMATION Provider Role Provider Contact Time ZAHEER ARTHUR LPN ED Nurse 07/09/15 15:20 BRANDIE NIÑO CNP ED Provider 07/09/15 15:20 DIAGNOSIS Pharyngitis Streptococcal Comment: PATIENT EDUCATION INFORMATION Instructions: PHARYNGITIS, Strep (Confirmed) Follow up: With: Address: When: Follow up with primary care provider Within As Needed Source: [facility] POWERCHART Document Id: [id number] RTMENT MGR documented in this encounter Progress Notes Brandie Niño, ERICKA, C.N.P. - 07/09/2015 3:13 PM CST [id number] CHIEF COMPLAINT/REASON FOR VISIT Sore throat. HISTORY [...] NIÑO CNP On: 07/09/2015 08:16 PM Source: [facility] MHSDOLBEYNONRADSYS Document Id: [id number] RTMENT MGR documented in this encounter H&P Notes Zaheer Arthur L.P.N. - 07/09/2015 3:21 PM CST Urgent Care Intake Urgent Care Intake Entered On: 07/09/2015 15:25 DEPARTMENT MGR Performed On: 07/09/2015 15:21 DEPARTMENT MGR by ZAHEER ARTHUR FLUX CORE WELDER Intake Chief Complaint : STATES SORE THROAT [...] ft 7 inch(es), 67 inch(es)) ZAHEER ARTHUR FLUX CORE WELDER - 07/09/2015 15:21 DEPARTMENT MGR General Info Information Given By : Patient Preferred Communication Mode : Verbal Languages : Micronesian Is Patient Female and 13-50 no hysterectomy : Yes Status : Patient denies Are you ? : No ZAHEER ARTHUR FLUX CORE WELDER - 07/09/2015 15:21 DEPARTMENT MGR Subjective Pain Symptoms : Yes ZAHEER ARTHUR FLUX CORE WELDER - 07/09/2015 15:21 DEPARTMENT MGR Pain Scale Pain Scale Verbal 0-10 : Open ZAHEER ARTHUR FLUX CORE WELDER - 07/09/2015 15:21 DEPARTMENT MGR Pain Pain Assessment Grid Pain 1 Location : Throat Intensity : 8 ZAHEER ARTHUR LPN - 07/09/2015 15:21 DEPARTMENT MGR Dependent Habits Exposure to Tobacco Smoke : Patient smokes, Other: occ alcohol Smoking Status : Smoker, current status unknown Tobacco 2A : Yes Tobacco Use/Currently Using : Yes Tobacco Use/Last 30 Days : Yes Tobacco Use/Last 12 months : Yes Type : Cigarettes: Less than 20 per day Tobacco Use/Advised to Quit : Yes ZAHEER ARTHUR LPN - 07/09/2015 15:21 DEPARTMENT MGR Caffeine Use Grid Caffeine Use : None ZAHEER ARTHUR [facility] - 07/09/2015 15:21 DEPARTMENT MGR Nutrition Nutrition Risk Factors by History Adult : None ZAHEER ARTHUR FLUX CORE WELDER - 07/09/2015 15:21 DEPARTMENT MGR Functional Current Daily Living Assistance : None ZAHEER ARTHUR [facility] - 07/09/2015 15:21 DEPARTMENT MGR Psychosocial Domestic Abuse Concerns : None Behavioral Health Screen/Safety Assmt : No Moravian Preference : No Moravian Affiliation ZAHEER ARTHUR FLUX CORE WELDER - 07/09/2015 15:21 DEPARTMENT MGR Advance Directive Advanced Directives : No Advance Directive Additional Information : No ZAHEER ARTHUR [facility] - 07/09/2015 15:21 DEPARTMENT MGR Educ Needs Learning Style Preference Adult Grid Patient : Printed materials Family : None ZAHEER ARTHUR [facility] - 07/09/2015 15:21 DEPARTMENT MGR Source: [employer] Document Id: [id number] DEPARTMENT MGR!56 RTMENT MGR documented in this encounter ED Notes Zaheer Arthur L.P.NEmeka - 07/09/2015 3:59 PM CST ED Disposition Summary ED Disposition Summary Entered On: 07/09/2015 16:00 DEPARTMENT MGR Performed On: 07/09/2015 15:59 DEPARTMENT MGR by ZAHEER ARTHUR LPN ED Disposition Summary Present in Room During Exam/Procedure : Alone Mode of Discharge : Ambulatory Discharge From ED With : Home Med List Printed Discharge Instructions Given to Patient : Yes Patient Status at Discharge from ED : Unchanged ARIA ARTHURANTONIO Breen FLUX CORE WELDER - 07/09/2015 15:59 DEPARTMENT MGR Source: [employer] Document Id: [id number] DEPARTMENT MGR!7 RTMENT MGR Nola La R.N. - 07/09/2015 3:15 PM CST ED Triage Assessment Document Has Been Updated ED Triage Assessment Entered On: 07/09/2015 15:19 DEPARTMENT MGR Performed On: 07/09/2015 15:15 DEPARTMENT MGR by NOLA LA RN Reason For Visit (As Of: 07/09/2015 15:19:41 DEPARTMENT MGR) Problems(Active) No Chronic Problems (Cerner :NKP ) Name of Problem: No Chronic Problems ; Recorder: NATY XIE MD; Confirmation: Confirmed ; Classification: Medical ; Code: NKP ; Last Updated: 05/15/2013 16:30 DEPARTMENT MGR; Life Cycle Date: 05/15/2013 ; Life Cycle Status: Active ; Vocabulary: Cerner Diagnoses(Active) UC - Sore Throat Date: 07/09/2015 ; Diagnosis Type: Reason For Visit ; Confirmation: Complaint of ; Clinical Dx: UC - Sore Throat ; Classification: Medical ; Clinical Service: Non-Specified ; Code: PNED ; Probability: 0 ; Diagnosis Code: [id number] Triage Chief Complaint Description : Pt arrives with c/o sore throat. States this has been present for the past couple hours. Has not taken any medications. Information Given By : Patient Present in Room During Exam/Procedure : Alone Mode of Arrival ED : Private vehicle Track : Medical Languages : Micronesian Patient Informed of Triage Location : Urgent Care Treatments Prior to Arrival : None Are you ? : No Is Patient Female and 13-50 no hysterectomy : Yes Status : Patient denies NOLA LA RN - 07/09/2015 15:18 DEPARTMENT MGR Pain Assessment Pain Symptoms : Yes NOLA LA RN - 07/09/2015 15:18 DEPARTMENT MGR Pain Scale Pain Scale Verbal 0-10 : Open NOLA LA RN - 07/09/2015 15:18 DEPARTMENT MGR Pain Pain Assessment Grid Pain 1 Location : Throat NOLA LA RN - 07/09/2015 15:18 DEPARTMENT MGR DENNY DCP GENERIC CODE Tracking Acuity : 4 -Less Urgent Tracking Group : [facility] ED/UC NOLA LA RN - 07/09/2015 15:18 DEPARTMENT MGR Source: [employer] Document Id: [id number] DEPARTMENT MGR!25 RTMENT MGR documented in this encounter Plan of Treatment Not on filedocumented as of this encounter Procedures Procedure Name Priority Date/Time Associated Diagnosis Comme nts RAPID STREP A Routine 07/09/2015 3:27 PM Results for this SCREEN DEPARTMENT MGR procedure are i n the results section. documented in this encounter Results (ABNORMAL) Rapid Strep A Screen (07/09/2015 3:27 PM DEPARTMENT MGR) [facility] Method Time Signature HXStrep A (POSITIVE) POWERCHART Screen Rapid HXFinal Positive for POWERCHART Group A Strep by rapid screen. Specimen (Source) Anatomical Collection Method Collection Time Re ceived Time Location / / Volume Laterality Throat 07/09/2015 3:27 PM DEPARTMENT MGR Brandie Niño APRN, C.N.P., D.N.P. LAB MICROBIOLOGY - GENERAL ORDERABLES Performing Organization Address City/State/ZIP Code Phon e Number POWERCHART documented in this encounter Visit Diagnoses Not on filedocumented in this encounter
--- OUTSIDE RECORDS SUMMARY | 2022-02-12 14:30 | XMS_ITS | Encounter Summary ---
:1985 Author Organization [facility] Address [address] [place] [address] Care Team Providers Name Role Phone Unavailable Primary Care Provider Unavailable Encounter Details Date Type Department Care Team Description 12/13/2013 Hospital Encounter [facility] Griffin Ann M.D. [address] [place], [place] [phone] (Wo rk) Social History Tobacco Use Types Packs/Day Years Used Date Smoking Tobacco: Never Assessed Sex Assigned at Date Recorded Not on file documented as of this encounter Discharge Summaries Franca Brito R.N. - 12/13/2013 6:56 PM CDT ED [place] [address] Name: SILVIA STEELE Date of : 1985 12:00 AM Visit Date: 12/13/2013 6:00 PM [facility] Number: [id number] Address: [address] [place] [address] Primary Care Provider: PCP, SANTOS - YADIRA IMPORTANT: [facility] in [place] would like to thank you for allowing [...] Provider No Appointments found Patient Education Materials: 62475 Treating Constipation: LENARD MAGNESIUM CITRATE Constipation is [...] Your health care provider may suggest an okcm-bts-gmegupu product to help ease your constipation. If so, follow directions carefully when using it. ?? [id number] Lennie Swain, [address] [place] [address], [place] [address]. All rights reserved. This information is not [...] with a responsible alliance party. I, SILVIA STEELE , or responsible alliance party have received [...] with a responsible alliance party. I, SILVIA STEELE , or responsible alliance party have received this information and my questions have been answered. I have discussed any challenges I see with this plan with the nurse or physician. Patient Signature or Responsible Democrat/Relationship Date Time Provider Signature Date Time This document has images extracted. Please consider using [employer] for all your patient education needs. Source: [facility] POWERCHART Document Id: [id number] Franca Brito R.N. - 12/13/2013 6:56 PM CDT ED Depart Summary [facility] Emergency Department / Urgent Care Clinical Discharge Summary PERSON INFORMATION Name SILVIA STEELE Age 28 Years 1985 12:00 AM Sex Female Language Citizen Of [place] PCP PCP, UNASSIGNED - AU Marital Status Single Visit Id Visit Reason Constipation; RECTAL BLEEDING Specialty Enc Type Emergency Med Service Emergency Medicine Referred by Track Group [facility] ED/UC Discharge 12/13/2013 6:48 PM Tracking Id [id number] Checkout 12/13/2013 6:48 PM Checkin 12/13/2013 6:00 PM Acuity 3 -Urgent Dispo Type * Discharged to Home or Self Care Arrival 12/13/2013 6:00 PM Reg Status Complete LOS 000 00:48 Address: [address] [place] [address] Comment: PROVIDER INFORMATION Provider Role Provider Contact Time FRANCA BRITO TREASURER Nurse 12/13/13 18:05 BLANCHE DAVILA MD ED Provider 12/13/13 18:07 DIAGNOSIS Constipation NOS Comment: PATIENT EDUCATION INFORMATION Instructions: Treating Constipation Follow up: With: Address: When: UNASSIGNED - PCP Within As Needed Comments: With: Address: When: Return to Emergency Department Within As Needed Comments: If symptoms worsen AT ANYTIME Source: [facility] POWERCHART Document Id: [id number] documented in this encounter ED Notes Blanche [...] PowerChart. Cytopathology, slides, cervical or vaginal (the [employer] System); manual screening under physician supervision ([id number]) in the week of 03/10/2004 at 18 Years. Comments: 04/18/2010 21:45 - CARMEN MORALES Hx: [id number] - LAB-CYTOPATH, SM,D/V,TDS<3SM TECH 03/21/2013 17:41 - [...] 12/13/2013 18:24 CDT XR Abdomen 2 Views [id number] 12/13/2013 18:05 CDT ED Primary Assessment - [...] Constipation Tracking Acuity 3 -Urgent Tracking Group [facility] ED/ Bowel Movement Last Date 12/08/2013 Tobacco [...] Information Given by Patient Languages Citizen Of [place] Treatments Prior to Arrival None DENNY Level 1 No DENNY Level 2 No DENNY Level 3 One Is Patient Female and 13-50 no hysterect Yes GI Detailed Assessment Yes ED Primary Assessment Form ED Primary Assessment Form 12/13/2013 18:03 CDT Pain Symptoms Yes Pain 1 Location Abdomen Tracking Acuity 3 -Urgent Tracking Group [facility] ED/ Chief Complaint Description No BM for 5 days. rectal bleeding for one week. No hx of hemorrhoids. abdominal pain. Mode of Arrival ED Private vehicle Track Medical Accompanied by Alone Information Given by Patient Languages Citizen Of [place] Treatments Prior to Arrival None DENNY Level 1 No DENNY Level 2 No DENNY Level 3 Many Is Patient Female and 13-50 no hysterect Yes ED Triage Assessment Form ED Triage Assessment Form 12/13/2013 18:00 CDT Is Patient Female and 13-50 no hysterect Yes . Radiology results:Radiologist's interpretation: : Radiology 12/13/2013 18:24 CDT XR Abdomen 2 Views [id number] . Reexamination/ Reevaluation the patient has undergone [...] DAVILA MD On: 12/14/2013 06:50 PM Source: [employer] Document Id: [id number] Franca Brito R.N. - 12/13/2013 6:48 PM [...] BRITO RN - 12/13/2013 18:54 CDT Source: [employer] Document Id: [id number] CDT!8 Franca Brito RDevendra - 12/13/2013 6:48 PM CDT ED Pain Assessment ED Pain Assessment Entered On: 12/13/2013 18:55 CDT Performed On: 12/13/2013 18:48 CDT by FRANCA BRITO RN Pain Assessment Pain Symptoms : Yes FRANCA BRITO RN - 12/13/2013 18:55 CDT Source: [employer] Document Id: [id number] CDT!3 Franca Brito R.N. 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; Life Cycle Date: 05/15/2013 ; Life Cycle Status: Active ; Vocabulary: Cerner Diagnoses(Active) Constipation Date: 12/13/2013 ; Diagnosis Type: Reason For Visit ; Confirmation: Complaint of ; Clinical Dx: Constipation ; Classification: Medical ; Clinical Service: Emergency medicine ; Code: PNED ;Probability: 0 ; Diagnosis Code: [id number] Constipation NOS Date: 12/13/2013 ; Diagnosis Type: [...] Track : Medical Languages : Citizen Of [place] Is Patient Female and 13-50 no hysterectomy [...] Acuity : 3 -Urgent Tracking Group : [facility] ED/ FRANCA BRITO 12/13/2013 18:52 CDT Allergy [...] FRANCA BRITO - 12/13/2013 18:52 CDT Source: [facility] POWERCHART Document Id: [id number] CDT!58 Sangita Allen R.NEmeka - 12/13/2013 6:03 [...] Code: NKP ; Last Updated: 05/15/2013 16:30 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 rectal bleeding for one week. No hx of hemorrhoids. abdominal pain. Information Given By : Patient Accompanied By : Alone Mode of Arrival ED : Private vehicle Track : Medical Languages : Citizen Of [place] Patient Informed of Triage Location : Emergency [...] Acuity : 3 -Urgent Tracking Group : [facility] ED/ SANGITA ALLEN RN - 12/13/2013 18:03 CDT [facility] Document Id: [id number] CDT!24 documented in this encounter Miscellaneous Notes Miscellaneous - rFanca Brito R.N. - 12/13/2013 6:48 PM CDT Valuables/Belongings Valuables/Belongings Entered On: 12/13/2013 18:55 CDT Performed On: 12/13/2013 18:48 CDT by FRANCA BRITO RN Valuables/Belongings Valuables/Belongings Grid Valuables with Patient Clothes, Patient Valuables : Pants, Shirt, Shoes FRANCA BRITO RN - 12/13/2013 18:55 CDT Source: [employer] Document Id: [id number] CDT!5 documented in this encounter Plan of [...]
--- OUTSIDE RECORDS SUMMARY | 2022-02-12 14:30 | XMS_ITS | Encounter Summary ---
:1985 Author Organization [facility] Address [address] [place] [address] Care Team Providers Name Role Phone Unavailable Primary Care Provider Unavailable Encounter Details Date Type Department Care Team Description 07/20/2015 Hospital Encounter HX [facility] N[facility] ED, M.D. [address] [place] [phone] (Wo rk) Social History Tobacco Use [...] 07/20/2015 9:58 AM CDT ED Discharge Instructions [facility] [address] [facility] [place] [address] Name: SILVIA BLANCHARD Date of : 1985 12:00 AM Visit Date: 07/20/2015 8:32 AM [facility] Number: [phone] Address: [address] [place] [phone] Primary Care Provider: SOFIE VÁZQUEZ MD IMPORTANT: [facility] in [place] would like to thank you for allowing us to assist youwith your healthcare needs. The following includes patient education materials and information regarding your injury/illness. Diagnosis: Follow-Up Instructions: With: Address: When: SOFIE VÁZQUEZ [address] [place] [phone] Business (1) Within As Needed Comments: drink [...] ?? Muffled voice ?? New rash ?? [phone] [facility], [address] [place] [address], [place] [address]. All rights reserved. This information is not [...] Youll be asked for your [facility] number which you can find at the top of this document. ED Tests and Procedures: Order Status CBC (includes Auto Differential) Completed Mononucleosis Screen Completed Automated Diff-5 Part Completed Discharge Prescriptions & Home Medications: Medication/Strength Dose Route Frequency Indications/Special Instructions/Comments/Notes [id number] Prescription (Work excuse) See Instructions Please excuse [...] a ride home with a responsible libertarian. LO Ward KRISTINA LYNN , or responsible libertarian [...] home with a responsible libertarian. I, SILVIA BLANCHARD , or responsible libertarian have received this information and my questions have been answered. I have discussed any challenges I see with this plan with the nurse or physician. Patient Signature or Responsible Alliance Party/Relationship Date Time Provider Signature Date Time This document has images extracted. Please consider using [employer] for all your patient education needs. Source[facility] Document Id: [id number] Sangita Allen R.N. - 07/20/2015 9:58 AM CDT ED Depart Summary [facility] Emergency Department / Urgent Care Clinical Discharge Summary PERSON INFORMATION Name SILVIA BLANCHARD Age 30 Years 1985 12:00 AM Sex Female Language Romansh PCP SOFIE VÁZQUEZ MD Marital Status Visit Id Visit Reason Throat pain - Adult; SORE THROAT Specialty Enc Type Emergency Med Service Emergency Medicine Referred by Track Group [facility] ED/UC Discharge 07/20/2015 9:54 AM Tracking Id [id number] Checkout 07/20/2015 9:54 AM Checkin 07/20/2015 8:32 AM Acuity 4 -Less Urgent Dispo Type * Discharged to Home or Self Care Arrival 07/20/2015 8:32 AM Reg Status Complete LOS 000 01:22 Address: [address] [place], [place] [id number] Comment: PROVIDER INFORMATION Provider Role Provider Contact Time SANGITA ALLEN RN ED Nurse 07/20/15 08:43 LANE SHI MD ED Provider 07/20/15 08:48 DIAGNOSIS Comment: PATIENT EDUCATION INFORMATION Instructions: PHARYNGITIS, Viral Follow up: With: Address: When: SOFIE VÁZQUEZ [address] [place] [phone] Business (1) Within As Needed Comments: drink fluids Salt water gargles Tylenol or motrin as neede for pain Follow up as needed return if concerns Source: judo Document Id: [id number] documented in this encounter ED Notes Sangita [...] ALLEN RN - 07/20/2015 9:57 CDT Source: judo Document Id: [id number] CDT!8 Sangita Allen R.N. - 07/20/2015 9:54 AM CDT ED Pain Assessment ED Pain Assessment Entered On: 07/20/2015 9:58 CDT Performed On: 07/20/2015 9:54 CDT by SANGITA ALLEN RN Pain Assessment Pain Symptoms : Yes SANGITA ALLEN RN - 07/20/2015 9:57 CDT Source: judo Document Id: [id number] CDT!3 Sangita Allen R.N. 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 seen in /ED and [place]. sore throat returned. able to swallow her own secretions. breathing esay at r/a. pink in color. Information Given By : Patient Present in Room During Exam/Procedure : Alone Mode of Arrival ED : Ambulatory Track : Medical Languages : Romansh Patient Informed of Triage Location : Emergency [...] 4 -Less Urgent Tracking Group : [facility] ED/ SANGITA ALLEN Ruperto RN - 07/20/2015 9:24 CDT Respiratory Airway : Patent Respirations : Unlabored Respiratory Pattern : Regular Oxygen Therapy : Room air SANGITA ALLEN RN - 07/20/2015 9:24 CDT Cardiovascular Heart Rhythm : Regular Skin Color : [place] Skin Description : Dry Skin Temperature : [...] ALLEN RN - 07/20/2015 9:24 CDT Source: judo Document Id: [id number] CDT!64 Lane Shi M.D. - 07/20/2015 8:40 [...] seen numeroustimes. Last time was sent to [place] because ENT was not available here. She did not see ENT in [place] on July 16, but was given a [...] to continue antibiotic. She was set to [place] on July 16, because ENT was not available in [place]. The patient notes that she did not [...] PowerChart. Cytopathology, slides, cervical or vaginal (the [place] System); manual screening under physician supervision.. ([id number]) in the week of 03/10/2004 at 18 Years. Comments: 04/18/2010 21:45 - CARMEN MORALES Hx: [id number] - LAB-CYTOPATH, SM,D/V,TDS<3SM TECH 03/21/2013 17:41 - [...] 10(9)/L HI Lymph Absolute 3.01 x10(9)/L HI Dolores Absolute 1.12 x10(9)/L HI Eos Absolute 0.24 x10(9)/L Baso Absolute 0.03 x10(9)/L Mononucleosis Screen Review . Notes:her throat looks little red but I do not see any tonsillar swelling or uvular swelling. No neck masses. Her Dolores is negative. I think she probably developed [...] SUZI CARMONA On: 07/20/2015 08:45 AM Source: [facility] POWERCHART Document Id: [id number]} Cynthia Harvey REmekaN. 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 Last time was sent to [place] because ENT was not available here. She did not see ENT in [place] on July 16, but was given a steroid shot that she said helped for 2 days Information Given By : Patient Present in Room During Exam/Procedure : Alone Mode of Arrival ED : Ambulatory Track : Medical Languages : Romansh Patient Informed of Triage Location : Emergency [...] 4 -Less Urgent Tracking Group : [facility] ED/ CYNTHIA HARVEY RN - 07/20/2015 8:36 CDT Source: judo Document Id: [id number] CDT!28 documented in this encounter Miscellaneous Notes Miscellaneous - Conversion, Historical Provider Ser - 07/20/2015 9:54 AM CDT Coding Summary-Paper Based CODING DATE: 08/02/2015 FINAL [facility] STATUS: * Discharged to Home or [...] STEINBERG Date Saved: 08/02/2015 07:59 am Source: [facility] POWERCHART Document Id: [id number] documented in this encounter Plan of Treatment [...] (07/20/2015 9:03 AM CDT) Analysis Performed At [facility] logist Time Signature Leukocytes 12.0 (H) 3.4 - 10.5 POWERCHART X109L Erythrocytes 4.58 3.90 - POWERCHART 5.03 V9457M Hemoglobin 13.8 12.0 - POWERCHART 15.5 GDL [...] M.D. LAB BLOOD ADD-ON Performing Organization Address City/State/[facility] Code Phon e Number POWERCHART Mononucleosis Screen, POCT (07/20/2015 9:03 AM CDT) [facility] gist Method Time Signature Infectious POWERCHART Dolores Test, S HXFinal Negative POWERCHART HXFinal Reference: POWERCHART Negative Specimen (Source) Anatomical Collection Method Collection Time Re ceived Time Location / / Volume Laterality Blood 07/20/2015 9:[address] Shi M.D. LAB POCT ORDERABLES-MANUAL Performing Organization Address City/State/[facility] Code Phon e Number POWERCHART documented in this encounter Visit Diagnoses Not on filedocumented in this encounter
--- OUTSIDE RECORDS SUMMARY | 2022-02-12 14:30 | XMS_ITS | Encounter Summary ---
:1985 Author Organization [facility] Address [address] [place] [address] Care Team Providers Name Role Phone Unavailable Primary Care Provider Unavailable Encounter Details Date Type Department Care Team Description 07/10/2015 Hospital En[facility] Janett Reyes M .D. Social History Tobacco Use Types Packs/Day Years Used Date Smoking Tobacco: Never Assessed Sex Assigned at Date Recorded Not on file documented as of this encounter Last Filed Vital Signs Vital Sign Reading Time Taken Comments Blood Pressure 121/72 07/10/2015 9:08 AM COAL PULVERIZING OPERATOR Pulse - - Temperature - - Respiratory Rate 18 07/10/2015 8:19 AM COAL PULVERIZING OPERATOR Oxygen Saturation - - Inhaled Oxygen Concentration - - Weight - - Height 169 cm (5' 6.54) 07/10/2015 7:24 AM COAL PULVERIZING OPERATOR Body Mass Index - - documented in this encounter Discharge Summaries Jonas Evans, R.N. - 07/10/2015 9:46 AM CST ED Discharge Instructions [place] [address] [place] [address] Name: SILVIA STEELE Date of : 1985 12:00 AM Visit Date: 07/10/2015 7:17 AM [facility] Number: [id number] Address: [address] [place] [address] Primary Care Provider: SOFIE VÁZQUEZ MD IMPORTANT: [facility] in [place] would like to thank you for allowing [...] ?? Muffled voice ?? New rash ?? [phone] Lennie Swain, [address] [place] [address]. All rights reserved. This information is not [...] if you dont have one. Go to [email or web address] and click on Create Your Account. Then, follow the directions to complete the online form. Youll be asked for your [facility] number which you can find at [...] mg oral tablet) 10 mg Oral once [id number] (oxyCODONE 5 mg oral tablet) 5 mg [...] document has images extracted. Please consider using [employer] for all your patient education needs. Source: [facility] [employer] Document Id: [id number] PULVERIZING OPERATOR Jonas Evans, R.N. - 07/10/2015 9:46 AM CST ED Depart Summary [facility] Emergency Department / Urgent Care Clinical Discharge Summary PERSON INFORMATION Name SILVIA STEELE Age 30 Years 1985 12:00 AM Sex Female Language Monegasque PCP SOFIE VÁZQUEZ MD Marital Status Single Visit Id Visit Reason Throat pain - Complicated; sore throat Specialty Enc Type Emergency Med Service Emergency Medicine Referred by Track Group [facility] ED/UC Discharge 07/10/2015 9:39 AM Tracking Id [id number] Checkout 07/10/2015 9:39 AM Checkin 07/10/2015 7:17 AM Acuity 3 -Urgent Dispo Type * Discharged to Home or Self Care Arrival 07/10/2015 7:17 AM Reg Status Complete LOS 000 02:22 Address: [address] [place] [address] Comment: PROVIDER INFORMATION Provider Role Provider Contact Time JONAS EVANS ED Nurse 07/10/15 07:20 JANETT LAMBERT MD ED Provider 07/10/15 07:23 JONAS EVANS ED Nurse 07/10/15 07:33 DIAGNOSIS Pharyngitis Streptococcal Comment: PATIENT EDUCATION INFORMATION Instructions: PHARYNGITIS, Strep (Confirmed) Follow up: Source: [employer] Document Id: [id number] PULVERIZING OPERATOR documented in this encounter ED Notes Jonas Evans R.N. - 07/10/2015 9:39 AM CST ED Disposition Summary ED Disposition Summary Entered On: 07/10/2015 9:45 COAL PULVERIZING OPERATOR Performed On: 07/10/2015 9:39 COAL PULVERIZING OPERATOR by JONAS EVANS ED Disposition Summary Present in Room During Exam/Procedure : Spouse Mode of Discharge : Ambulatory Transportation : Private vehicle Printed Discharge Instructions Given to Patient : Yes Patient Status at Discharge from ED : Improved Comment : Scripts / discharge in hand. No further questions at this time. Will follow up with ENT tomorrow. JONAS EVANS - 07/10/2015 9:45 COAL PULVERIZING OPERATOR Source: [employer] Document Id: [id number] COAL PULVERIZING OPERATOR!8 PULVERIZING OPERATOR Jonas Evans, R.NEmeka - 07/10/2015 9:39 AM CST ED Pain Assessment ED Pain Assessment Entered On: 07/10/2015 9:45 COAL PULVERIZING OPERATOR Performed On: 07/10/2015 9:39 COAL PULVERIZING OPERATOR by JONAS EVANS Pain Assessment Pain Symptoms : Yes JONAS EVANS - 07/10/2015 9:45 COAL PULVERIZING OPERATOR Pain Scale Pain Scale Verbal 0-10 : Open JONAS EVANS - 07/10/2015 9:45 COAL PULVERIZING OPERATOR Pain Pain Assessment Grid Pain 1 Location : Throat Intensity : 6 Acceptable Intensity : 6 JONAS EVANS - 07/10/2015 9:45 COAL PULVERIZING OPERATOR Source: [employer] Document Id: [id number] COAL PULVERIZING OPERATOR!11 PULVERIZING OPERATOR Jonas Evans R.N. - 07/10/2015 9:09 AM CST ED Nurse Reassess ED Nurse Reassess Entered On: 07/10/2015 9:10 COAL PULVERIZING OPERATOR Performed On: 07/10/2015 9:09 COAL PULVERIZING OPERATOR by JONAS EVANS Pain Assessment Pain Symptoms : Yes JONAS EVANS - 07/10/2015 9:09 COAL PULVERIZING OPERATOR Pain Scale Pain Scale Verbal 0-10 : Open JONAS EVANS - 07/10/2015 9:09 COAL PULVERIZING OPERATOR Pain Pain Assessment Grid Pain 1 Location : Throat Intensity : 7 Acceptable Intensity : 4 Comments (Comment: Pt states she is ready to go. [JONAS EVANS - 07/10/2015 9:09 COAL PULVERIZING OPERATOR] ) JONAS EVANS - 07/10/2015 9:09 COAL PULVERIZING OPERATOR Source: [employer] Document Id: [id number] COAL PULVERIZING OPERATOR!11 PULVERIZING OPERATOR Jonas Evans R.N. - 07/10/2015 8:28 AM CST ED Nurse Reassess ED Nurse Reassess Entered On: 07/10/2015 8:28 COAL PULVERIZING OPERATOR Performed On: 07/10/2015 8:28 COAL PULVERIZING OPERATOR by JONAS EVANS Pain Assessment Pain Symptoms : Yes JONAS EVANS - 07/10/2015 8:28 COAL PULVERIZING OPERATOR CV Reassess CV Patient Stated Symptoms : Dizziness JONAS EVANS - 07/10/2015 8:28 COAL PULVERIZING OPERATOR GI Reassess GI Patient Stated Symptoms : None JONAS EVANS - 07/10/2015 8:28 COAL PULVERIZING OPERATOR Source: [employer] Document Id: [id number] COAL PULVERIZING OPERATOR!7 PULVERIZING OPERATOR Janett Lambert M.D. - 07/10/2015 7:32 AM CST Throat pain - Complicated Patient: SILVIA STEELE Age: 30 years Sex: Female : 1985 Author: JANETT LAMBERT MD Attachments: None Associated Diagnosis: Pharyngitis Streptococcal Basic Information Additional information: Chief Complaint from Nursing Triage Note : Chief Complaint Description 07/10/2015 7:24 COAL PULVERIZING OPERATOR Chief Complaint Description Pt states she was dx w/strep yesterday and started on PCN, states her ST is much worse and she is crying due to pain, states pain is worse on the rt. 07/09/2015 15:15 COAL PULVERIZING OPERATOR Chief Complaint Description Pt arrives with c/o [...] PowerChart. Cytopathology, slides, cervical or vaginal (the [place] System); manual screening under physician supervision.. ([id number]) in the week of 03/10/2004 at 18 Years. Comments: 04/18/2010 21:45 - CARMEN MORALES Hx: [id number] - LAB-CYTOPATH, SM,D/V,TDS<3SM TECH 03/21/2013 17:41 - Contributor source changed to PowerChart.. Family history: No family history items have been selected or recorded.. Physical Examination Vital Signs: Vital Signs 07/10/2015 7:24 COAL PULVERIZING OPERATOR Temperature Core 37.6 DegC Apical Heart Rate 135 /min HI Respiratory Rate 18 /min SpO2 96 % Systolic Blood Pressure 126 mmHg Diastolic Blood Pressure 93 mmHg >HHI Mean Arterial Pressure 104 mmHg BP Location Right upper 07/09/2015 15:21 COAL PULVERIZING OPERATOR Temperature Core 38.7 DegC HI Peripheral Pulse Rate 102 /min HI Respiratory Rate 16 /min SpO2 99 % Systolic Blood Pressure 125 mmHg Diastolic Blood Pressure 64 mmHg Mean Arterial Pressure 84 mmHg BP Location Left upper Blood Pressure Cuff Size Large , Measurements 07/10/2015 7:24 COAL PULVERIZING OPERATOR Height 169 cm 07/09/2015 15:21 COAL PULVERIZING OPERATOR Height 169 cm 07/09/2015 15:19 COAL PULVERIZING OPERATOR Height 169 cm , SpO2 07/10/2015 7:24 COAL PULVERIZING OPERATOR SpO2 96 % 07/09/2015 15:21 COAL PULVERIZING OPERATOR SpO2 99 % . General: Alert and [...] or unilateral swelling to give concern for KETTLE GIRL. Floor of mouth notswollen. No risk for [...] Discharge ED Patient (Order Processing): 07/10/2015 9:32 COAL PULVERIZING OPERATOR, Once, Launch Orders Pharmacy: work excuse (Prescribe): [...] LAMBERT MD On: 07/10/2015 09:24 AM Source: [facility] POWERCHART Document Id: [id number]} PULVERIZING OPERATOR Dayan Mccoy R.N. - 07/10/2015 7:24 AM CST ED Primary Assessment Document Has Been Updated ED Primary Assessment Entered On: 07/10/2015 7:30 COAL PULVERIZING OPERATOR Performed On: 07/10/2015 7:24 COAL PULVERIZING OPERATOR by DAYAN MCCOY RN Reason For Visit (As Of: 07/10/2015 07:30:35 COAL PULVERIZING OPERATOR) Problems(Active) No Chronic Problems (Cerner :NKP ) Name of Problem: No Chronic Problems ; Recorder: NATY XIE MD; Confirmation: Confirmed ; Classification: Medical ; Code: NKP ; Last Updated: 05/15/2013 16:30 COAL PULVERIZING OPERATOR; Life Cycle Date: 05/15/2013 ; Life Cycle Status: Active ; Vocabulary: Carmen Diagnoses(Active) Throat pain - Complicated Date: 07/10/2015 ; Diagnosis Type: Reason For Visit ; Confirmation: Complaint of ; Clinical Dx: Throat pain - Complicated ; Classification: Medical ; Clinical Service: Emergency medicine ; Code: PNED ; Probability: 0 ; Diagnosis Code: [id number] Triage Chief Complaint Description : Pt states she was dx w/strep yesterday and started on PCN, states her ST is much worse and she is crying due to pain, states pain is worse on the rt. Information Given By : Patient Present in Room During Exam/Procedure : Alone Mode of Arrival ED : Private vehicle Track : Medical Languages : Monegasque Vital Signs Assessed : Yes Treatments Prior to Arrival : Home treatments Are you ? : No Is Patient Female and 13-50 no hysterectomy : Yes Status : Patient denies DAYAN MCCOY RN - 07/10/2015 7:24 COAL PULVERIZING OPERATOR Vital Signs Temperature Core : 37.6 DegC(Converted [...] inch(es)) DAYAN MCCOY RN - 07/10/2015 7:24 COAL PULVERIZING OPERATOR Pain Assessment Pain Symptoms : Yes DAYAN MCCOY RN - 07/10/2015 7:24 COAL PULVERIZING OPERATOR Pain Scale Pain Scale Verbal 0-10 : Open DAYAN MCCOY RN - 07/10/2015 7:24 COAL PULVERIZING OPERATOR Pain Pain Assessment Grid Pain 1 Location : Throat Intensity : 10 DAYAN MCCOY RN - 07/10/2015 7:24 COAL PULVERIZING OPERATOR DENNY DCP GENERIC CODE Tracking Acuity : 3 -Urgent Tracking Group : [facility] ED/ DAYAN MCCOY RN - 07/10/2015 7:24 COAL PULVERIZING OPERATOR Allergy (As Of: 07/10/2015 07:30:35 COAL PULVERIZING OPERATOR) Allergies (Active) NKA Estimated Onset Date: Unspecified ; Created By: KATIE BRUNNER MD; Reaction Status: Active ; Category: Drug ; Substance: NKA ; Type: Allergy ; Updated By: KATIE BRUNNER MD; Reviewed Date: 07/10/2015 7:29 COAL PULVERIZING OPERATOR Respiratory Airway : Patent Respirations : Unlabored Respiratory Pattern : Regular Oxygen Therapy : Room air DAYAN MCCOY RN - 07/10/2015 7:24 COAL PULVERIZING OPERATOR Cardiovascular Heart Rhythm : Regular Skin Color : Normal for ethnicity Skin Description : Normal Skin Temperature : Warm DAYAN MCCOY RN - 07/10/2015 7:24 COAL PULVERIZING OPERATOR Neurological Last Well Time Known : Not applicable Level of Consciousness : Alert Orientation : Oriented x 3 Characteristics of Speech : Clear Neuro Patient Stated Symptoms : None Gait : Steady Swallowing Difficulty/Aspiration Risk : None Loss of Consciousness : No DAYAN MCCOY RN - 07/10/2015 7:24 COAL PULVERIZING OPERATOR ED Psychosocial Affect/Behavior : Calm Domestic Abuse Concerns : None Behavioral Health Screen/Safety Assmt : No DAYAN MCCOY RN - 07/10/2015 7:24 COAL PULVERIZING OPERATOR Gastrointestinal Nutrition ED : Adequate DAYAN MCCOY RN - 07/10/2015 7:24 COAL PULVERIZING OPERATOR Musculoskeletal Fall Prevention Education Provided : Yes DAYAN MCCOY RN - 07/10/2015 7:24 COAL PULVERIZING OPERATOR Social Habits Exposure to Tobacco Smoke : Patient smokes, Other: occ alcohol Smoking Status : Current every day smoker Tobacco 2A : Yes Tobacco Use/Currently Using : Yes Tobacco Use/Last 30 Days : Yes Tobacco Use/Last 12 months : Yes Type : Cigarettes: Less than 20 per day Tobacco Use/Advised to Quit : No DAYAN MCCOY RN - 07/10/2015 7:24 COAL PULVERIZING OPERATOR Source: [facility] POWERCHART Document Id: [id number] COAL PULVERIZING OPERATOR!74 PULVERIZING OPERATOR Jonas Evans RDevendra - 07/10/2015 7:10 AM CST ED Treatments and Procedures ED Treatments and Procedures Entered On: 07/10/2015 9:45 COAL PULVERIZING OPERATOR Performed On: 07/10/2015 7:10 COAL PULVERIZING OPERATOR by JONAS EVANS Peripheral IV Peripheral IV Assess/Intervention Grid Peripheral IV #1 IV Activity : Start Number of Attempts : 1 Date of Insertion : 07/10/2015 COAL PULVERIZING OPERATOR IV Site : Forearm Laterality : Right Catheter Size : 20 Catheter Type : Over the needle Site Condition : No complications Drainage Description : None Infiltration Score : 0 Phlebitis Score : 0 Dressing/ Activity : Dry, Intact, Transparent Flow/ Patency : No complications Patient Indicated Response : Tolerated JONAS EVANS - 07/10/2015 9:43 COAL PULVERIZING OPERATOR Source: [employer] Document Id: [id number] COAL PULVERIZING OPERATOR!18 PULVERIZING OPERATOR documented in this encounter Miscellaneous Notes Miscellaneous - Jonas Evans R.N. - 07/10/2015 9:39 AM CST Valuables/Belongings Valuables/Belongings Entered On: 07/10/2015 9:46 COAL PULVERIZING OPERATOR Performed On: 07/10/2015 9:39 COAL PULVERIZING OPERATOR by JONAS EVANS Valuables/Belongings Valuables/Belongings Grid Valuables with Patient Clothes, Patient Valuables : Pants, Shirt, Shoes, Undergarments Electronic Devices : Cell phone JONAS EVANS - 07/10/2015 9:46 COAL PULVERIZING OPERATOR Room Orientation/Facility Policy Reviewed : Yes Home Medication Disposition : None brought in with patient JONAS EVANS - 07/10/2015 9:46 COAL PULVERIZING OPERATOR Source: [employer] Document Id: [id number] COAL PULVERIZING OPERATOR!8 PULVERIZING OPERATOR Miscellaneous - Conversion, Historical Provider Ser - 07/10/2015 9:39 AM COAL PULVERIZING OPERATOR Coding Summary-Paper Based CODING DATE: 07/24/2015 FINAL [facility] STATUS: * [...] STEINBERG Date Saved: 07/24/2015 07:48 am [facility] Document Id: [id number] documented in this encounter Plan of Treatment Not on filedocumented as of this encounter Visit Diagnoses Not on filedocumented in this encounter
--- OUTSIDE RECORDS SUMMARY | 2022-02-12 14:30 | XMS_ITS | Encounter Summary ---
:1985 Author Organization [facility] Address [address] [place] [address] Care Team Providers Name Role Phone Unavailable Primary Care Provider Unavailable Encounter Details Date Type Department Care Team Description 07/21/2015 Hospital Encounter HX [facility] ED Mimi Hillman M. D., M.B.A. [address] [place] [phone] (Wo rk) Social History Tobacco Use [...] 07/21/2015 2:42 AM CDT ED Depart Summary [facility] Emergency Department / Urgent Care Clinical Discharge Summary PERSON INFORMATION Name SILVIA BLANCHARD Age 30 Years 1985 12:00 AM Sex Female Language Norwegian PCP SOFIE VÁZQUEZ MD Marital Status Visit Id Visit Reason Chest pain - Pleuritic; chest pain Specialty Enc Type Emergency Med Service Emergency Medicine Referred by Track Group [facility] ED/UC Discharge 07/21/2015 2:42 AM Tracking Id [id number] Checkout 07/21/2015 2:42 AM Checkin 07/21/2015 12:09 AM Acuity 3 -Urgent Dispo Type * Discharged to Home or Self Care Arrival 07/21/2015 12:09 AM Reg Status Complete LOS 000 02:33 Address: [address] [place] [phone] Comment: PROVIDER INFORMATION Provider Role Provider Contact Time DEVI RAZA GRID CASTING MACHINE OPERATOR HELPER Nurse 07/21/15 00:11 MIMI HILLMAN MD [...] As Needed With: Address: When: SOFIE VÁZQUEZ [address] [place] [phone] Business (1) Within As Needed Source: [facility] POWERCHART Document Id: [id number] Devi Raza R.N. - 07/21/2015 2:42 AM CDT ED Discharge Instructions [address] [address] [place] [address] Name: SILVIA BLANCHARD Date of : 1985 12:00 AM Visit Date: 07/21/2015 12:09 AM [facility] Number: [phone] Address: [address] [place] [phone] Primary Care Provider: SOFIE VÁZQUEZ MD IMPORTANT: [facility] in [place] would like to thank you for allowing [...] Address: When: SOFIE VÁZQUEZ [address] [place] [phone] Business (1) Within As Needed Your Upcoming [...] pain or redness in one leg ?? [phone] [place] [address]. All rights reserved. This information is not [...] if you dont have one. Go to [email or web address](TM) by [email or web address] and click on Create Your Account. Then, follow the directions to complete the online form. Youll be asked for your [facility] number which you can find at the [...] a ride home with a responsible libertarian. Sylvia, SILVIA BLANCHARD , or responsible libertarian have received this information and my questions have been answered. I have discussed any challenges I see with this plan with the nurse or physician. Patient Signature or Responsible Alliance Party/Relationship Date Time Provider Signature Date Time This document has images extracted. Please consider using GridPoint for all your patient education needs. Source: [facility] POWERCHART Document Id: [id number] documented in this encounter ED Notes Devi [...] RAZA RN - 07/21/2015 2:42 CDT Source: WedWu Document Id: [id number] CDT!8 Devi Raza R.N. - 07/21/2015 2:42 AM CDT ED Pain Assessment ED Pain Assessment Entered On: 07/21/2015 2:42 CDT Performed On: 07/21/2015 2:42 CDT by DEVI RAZA RN Pain Assessment Pain Symptoms : Yes DEVI RAZA RN - 07/21/2015 2:42 CDT Source: WedWu Document Id: [id number] CDT!3 Devi Raza R.N. - 07/21/2015 2:41 [...] RAZA RN - 07/21/2015 2:41 CDT Source: WedWu Document Id: [id number] CDT!14 Mimi Hillman M.D. - 07/21/2015 1:59 [...] sore throats recently. seen in /ED and [place]. sore throat returned. able to swallow her own secretions. breathing esay at r/a. pink in color. 07/20/2015 8:36 CDT Chief Complaint Description sore throat for a couple wks, has been seen numeroustimes. Last time was sent to [place] because ENT was not available here. She did not see ENT in [place] on July 16, but was given a [...] chest pain problems, but no history of [place], mom healthy; grandparents with cardiac disease. Social [...] 10(9)/L HI Lymph Absolute 3.01 x10(9)/L HI Aiken Absolute 1.12 x10(9)/L HI Eos Absolute 0.24 x10(9)/L Baso Absolute 0.03 x10(9)/L Mononucleosis Screen Review , Lab results : Lab View 07/21/2015 1:09 CDT Hgb 13.3 g/dL Hct 40.4 % WBC 12.7 x10(9)/L HI RBC 4.37 x10(12)/L MCV 92.4 fL RDW 13.3 % Platelet 267 x10(9)/L Neutro Absolute 8.07 10(9)/L HI Lymph Absolute 3.57 x10(9)/L HI Aiken Absolute 0.76 x10(9)/L Eos Absolute 0.27 x10(9)/L [...] HILLMAN MD On: 07/21/2015 05:45 AM Source: [facility] CodigamesCHART Document Id: [id number]} Devi Raza R.N. - 07/21/2015 1:48 AM [...] RAZA RN - 07/21/2015 1:48 CDT Source: [facility] CodigamesCHART Document Id: [id number] CDT!10 Devi Raza R.N. - 07/21/2015 12:07 [...] Code: NKP ; Last Updated: 05/15/2013 16:30 MANUFACTURING TECHNOLOGY ANALYST; Life Cycle Date: 05/15/2013 ; Life Cycle Status: Active ; Vocabulary: Katharinener Diagnoses(Active) Chest pain - Pleuritic Date: 07/21/2015 ; Diagnosis Type: Reason For Visit ; Confirmation: Complaintof ; Clinical Dx: Chest pain - Pleuritic ; Classification: Medical ; Clinical Service: Emergency medicine ; Code: PNED ; Probability: 0 ; Diagnosis Code: [id number] Pain Chest Wall (CWP) Date: 07/21/2015 ; [...] Private vehicle Track : Medical Languages : Norwegian Vital Signs Assessed : Yes Treatments Prior [...] DENNY DCP GENERIC CODE Tracking Group : [facility] ED/ Tracking Acuity : 3 -Urgent DEVI [...] RAZA RN - 07/21/2015 2:42 CDT Source: WedWu Document Id: [id number] CDT!14 documented in this encounter Miscellaneous Notes Telephone Encounter - Conversion, Historical Provider Ser - 07/22/2015 8:25 AM CDT Follow Up with ENT Entered by CHEVY KERR on July 22, 2015 08:25:28 CDT patient scheduled for 06/24/15 Follow Up Request: Follow Up with ENT Date Requested: July 21, 2015 02:28:22 CDT Ed Location: [facility] ED ED Attending: MIMI HILLMAN MD Order [...] Address: -- Follow Up Comments: -- Source: WedWu Document Id: [id number] Miscellaneous - Conversion, Historical Provider Ser - 07/21/2015 2:42 AM CDT Coding Summary-Paper Based CODING DATE: 08/02/2015 FINAL [facility] STATUS: * Discharged to [...] GONZALEZ Date Saved: 08/02/2015 12:21 pm Source: WedWu Document Id: [id number] Miscellaneous - Devi Raza R.N. - 07/21/2015 2:42 AM CDT Valuables/Belongings Valuables/Belongings Entered On: 07/21/2015 2:42 CDT Performed On: 07/21/2015 2:42 CDT by DEVI RAZA RN Valuables/Belongings Belongings Sent Home With : pt DEVI RAAZ RN - 07/21/2015 2:42 CDT Source: WedWu Document Id: [id number] CDT!3 documented in this encounter Plan of [...] M.B.A. LAB BLOOD ADD-ON Performing Organization Address City/[facility] Phon e Number POWERCHART D-Dimer (07/21/2015 1:09 [...] M.B.A. LAB BLOOD ADD-ON Performing Organization Address City/[facility] Phon e Number POWERCHART (ABNORMAL) CBC with Differential (07/21/2015 1:09 AM CDT) Analysis Performed At Patho logist Time Signature Leukocytes 12.7 (H) 3.4 - 10.5 POWERCHART X109L Erythrocytes 4.37 3.90 - POWERCHART 5.03 [id number] Hemoglobin 13.3 12.0 - POWERCHART 15.5 GDL [...] M.B.A. LAB BLOOD ADD-ON Performing Organization Address City/State/[facility] Code Phon e Number POWERCHART Lipase (07/21/2015 [...] M.B.A. LAB BLOOD ADD-ON Performing Organization Address City/State/[facility] Code Phon e Number POWERCHART Hepatic Function [...] ed reference range. HXeGFR (MDRD) >60 >=60 [id number] POWERCHART eGFR Black/ >60 >=60 [id number] POWERCHART Glucose 102 70 - 139 MGDL [...] / Volume Laterality 07/21/2015 12:27 AM CDT [facility] - 07/21/2015 12:27 AM CDT [...] Organization Address City/State/ZIP Code Phon e Number [facility] [address] [place] [address] DX Chest Anterior Posterior or Posterior Anterior [...] Lungs are c lear. IMPRESSION: Negative. Lucy Prince(R)(CT), Suresh(R) IMG DIAGNOSTIC I MAGING PROCEDURES documented in this encounter Visit Diagnoses Not on filedocumented in this encounter
--- OUTSIDE RECORDS SUMMARY | 2022-02-12 14:31 | XMS_ITS | Encounter Summary ---
:1985 Author Organization [facility] Address [address] [place] [address] Care Team Providers Name Role Phone Unavailable [...]
--- OUTSIDE RECORDS SUMMARY | 2022-02-12 14:31 | XMS_ITS | Encounter Summary ---
:1985 Author Organization [facility] Address [address] [place] [address] Care Team Providers Name Role Phone Unavailable [...]
--- OUTSIDE RECORDS SUMMARY | 2022-02-12 14:31 | XMS_ITS | Encounter Summary ---
:1985 Author Organization [facility] Address [address] [place] [address] Care Team Providers Name Role Phone Unavailable Primary Care Provider Unavailable Encounter Details Date Type Department Care Team Description 04/05/2013 Hospital Encounter HX [facility] Amaury Baltazar, P.A.-C. [address] [place] [phone] (Wo rk) Social History Tobacco Use Types Packs/Day Years Used Date Smoking Tobacco: Never Assessed Sex Assigned at Date Recorded Not on file documented as of this encounter Last Filed Vital Signs Vital Sign Reading Time Taken Comments Blood Pressure 122/76 04/05/2013 9:37 AM TRAPEZE ARTIST Pulse 72 04/05/2013 9:37 AM TRAPEZE ARTIST Temperature - - Respiratory Rate 20 04/05/2013 9:37 AM TRAPEZE ARTIST Oxygen Saturation - - Inhaled Oxygen Concentration - - Weight 106 kg (233 lb 0.4 oz) 04/05/2013 9:37 AM TRAPEZE ARTIST Height - - Body Mass Index - - documented in this encounter Progress Notes Amaury Baltazar, P.A.-C. - 04/05/2013 9:27 AM CST [id number] MED DATE: 04/05/2013 Chief Complaint/Reason for Visit Dizzy and lightheaded. History of Present Illness Radha Steele is a 27-year-old female accompanied by her significant other. Today, while working at [employer] approximately 6 a.m., she had abrupt onset [...] as she does have 5 children. Works [employer]. Increase in potassium rich foods is also recommended. We will not put her on a potassium supplement. We have elected at this point to forgo any further cardiac evaluation unless she experiences additional problems. She agrees with this plan. She is given a work note for excusing work today. I will return tomorrow and follow as needed. Amaury Baltazar PA-C//batsheva #[id number] cc: Electronically Signed By: AMAURY BALTAZAR PA-C On: 11/12/2013 10:32 PM Source: [facility] FSHDICTAPHONESYS Document Id: [id number] documented in this encounter Miscellaneous Notes Miscellaneous - Amaury Baltazar P.A.-C. - 04/06/2013 5:11 PM CST Results Notification Document Contains Addenda Addendum by FRANCES CAR RN on 06 April 2013 17:32:49 TRAPEZE ARTIST Patient notified From: AMAURY BALTAZAR PA-C To: [facility] Nurse; Sent: 04/06/2013 17:11:19 TRAPEZE ARTIST Show up: 04/06/2013 17:11:00 TRAPEZE ARTIST Subject: Results Notification screen only. Thyroid normal. Symptoms most likely diet related. Results: Date Result Name Value Ref Range 04/05/2013 10:19 TSH 1.62 (0.3 - 4.2) Source: [facility] POWERCHART Document Id: [id number] Miscellaneous - Amaury Baltazar P.A.-C. - 04/05/2013 12:07 PM CST [place] [address] Visit Information Name: RADHA STEELE [facility] Number: [phone] Visit Date: 04/05/2013 12:07:20 Attending [...] in case of emergency. Additional Information: Source: [facility] POWERCHART Document Id: [id number] EZE ARTIST Miscellaneous - Amaury Baltazar P.A.-C. - 04/05/2013 12:07 PM CST [place] [address] Visit Information Name: RADHA STEELE [facility] Number: [phone] Current Date: 04/05/2013 12:07:21 Physicians [...] appointment detail needed. Your Goals/Additional instructions: Source: [facility] POWERCHART Document Id: [id number] EZE ARTIST Miscellaneous - Conversion, Historical Provider Ser - 04/05/2013 9:37 AM TRAPEZE ARTIST Adult Gmat Tutor Intake/History Adult Gmat Tutor Intake/History Entered On: 04/05/2013 9:40 TRAPEZE ARTIST Performed On: 04/05/2013 9:37 TRAPEZE ARTIST by AMOS HASKINS LPN Intake Chief Complaint [...] kg AMOS HASKINS LPN - 04/05/2013 9:37 TRAPEZE ARTIST General Info Information Given By : Patient Preferred Communication Mode : Verbal, Written Languages : Mongolian AMOS HASKINS LPN - 04/05/2013 9:37 TRAPEZE ARTIST Subjective Pain Symptoms : No AMOS HASKINS LPN - 04/05/2013 9:37 TRAPEZE ARTIST Dependent Habits Tobacco Use/Currently Using : Yes Tobacco Use/Advised to Quit : Yes Exposure to Tobacco Smoke : Patient smokes Smoking Status : Current every day smoker AMOS HASKINS TIRE WRAPPER - 04/05/2013 9:37 TRAPEZE ARTIST Source: [facility] POWERCHART Document Id: [id number] TRAPEZE ARTIST!26 documented in this encounter Plan of Treatment Not on filedocumented as of this encounter Procedures Procedure Name Priority Date/Time Associated Diagnosis Comme nts ECG Routine 04/05/2013 10:32 AM Results for this TRAPEZE ARTIST procedure are i n the results section. CBC WITH Routine 04/05/2013 10:19 AM Results for this DIFFERENTIAL, B TRAPEZE ARTIST procedure ar e in the results section. THYROID-STIMULATING Routine 04/05/2013 10:19 AM R esults for this HORMONE-SENSITIVE TRAPEZE ARTIST procedure are in (S-TSH) the results section. BASIC METABOLIC Routine 04/05/2013 10:19 AM Resul ts for this PANEL, S/P TRAPEZE ARTIST procedure are i n the results section. documented in this encounter Results ECG 12 Lead (04/05/2013 10:32 AM TRAPEZE ARTIST) Specimen (Source) Anatomical Collection Method Collection Time Re ceived Time Location / / Volume Laterality 04/05/2013 10:32 AM TRAPEZE ARTIST [facility] - 04/05/2013 10:32 AM TRAPEZE ARTIST Ventricular Rate: 76 BPM Atrial Rate: 76 BPM P-R Interval: 188 ms QRS Duration: 78 ms Q-T Interval: 390 ms QTC Calculation(Bezet): 438 ms Calculated P [place]: 37 degrees Calculated R [place]: 57 degrees Calculated T [place]: 20 degrees Diagnosis: Normal sinus rhythm Normal ECG No previous ECGs available Confirmed by MD HAIRSTON JOHN ([id number]) on 06/06/2012 12:36:41 PM Referred By: AMAURY BALTZAAR Confirmed By: MD HAIRSTON JOHN Procedure Note Provider, Lupe Villanueva - 09/23/2016F ormatting of this note might be different from the original. Ventricular Rate: 76 BPM Atrial Rate: 76 BPM P-R Interval: 188 ms QRS Duration: 78 ms Q-T Interval: 390 ms QTC Calculation(Bezet): 438 ms Calculated P [place]: 37 degrees Calculated R [place]: 57 degrees Calculated T [place]: 20 degrees Diagnosis: Normal sinus rhythm Normal ECG No previous ECGs available Confirmed by MD HAIRSTON JOHN ([id number]) on 06/06/2012 12:36:41 PM Referred By: AMAURY BALTAZAR Confirmed By: MD HAIRSTON JOHN Surjit Hairston Jr., M.D. ECG ORDERABLES Performing Organization Address City/State/ZIP Code Phon e Number [facility] [address] [place] [address] CBC with Differential (04/05/2013 10:19 AM TRAPEZE ARTIST) P athologist Signature Leukocytes 6.7 3.5 - [...] 0.1 MISYS X109L [place] Comment: PERFORMED AT [facility] , [address] [place] [address] Specimen (Source) Anatomical Collection Method Collection Time Re ceived Time Location / / Volume Laterality Blood 04/05/2013 10:19 AM TRAPEZE ARTIST Amaury Baltazar P.A.-C. LAB BLOOD ADD-ON Performing Organization Address City/State/ZIP Code Phon e Number [facility] [place] [address] [place] [address] [facility] [place] BMP (Basic Metabolic Panel) (04/05/2013 10:19 AM TRAPEZE ARTIST) Patholo gist Method Time Signature Sodium, S [...] MGDL [place] HXeGFR (MDRD) >80 >80 MISYS [id number] [place] 2 eGFR >80 >80 M[facility] Black/ [id number] [place] British 2 HXEGFR Note AVERAGE GFR MISYS FOR 18-29 [place] YEARS OLD = 116 ML/MIN/1.73 M2 Comment: CHRONIC KIDNEY DISEASE <60 ML/MIN/1.73M2 KIDNEY FAILURE <15 ML/MIN/1.73M2 THIS ESTIMATED GFR IS CALCULATED FOR JUDIT LTS, 18 AND OLDER, WITH STABLE KIDNEY FUNCTION USING THE RECALIBRATED CREATININE VALUE AND ABBREVIATED MDRD FORMULA. ??PLEASE DIRECT QUESTIONS TO [email or web address] THE GRF RESULT SHOULD NOT BE USED FOR RE NAL DRUG DOSING ADJUSTMENTS ACCORDING TO THE NATIONAL DISEASE EDUCATION PROGRAM. PERFORMED AT [facility], [address] [facility] [address] Specimen (Source) Anatomical Collection Method Collection Time Re ceived Time Location / / Volume Laterality Blood 04/05/2013 10:19 AM TRAPEZE ARTIST Amaury Baltazar P.A.-C. LAB BLOOD ADD-ON Performing Organization Address City/State/[facility] Phon e Number [facility] [place] [address] [place] [address] [place] [place] Thyroid-Stimulating Hormone-Sensitive (s-TSH) (04/05/2013 10:19 AM TRAPEZE ARTIST) P athologist Signature TSH 1.62 0.3 - 4.2 [facility] [place] (Thyrotropin) Comment: PERFORMED AT [facility], [address] [place] [address] Specimen (Source) Anatomical Collection Method Collection Time Re ceived Time Location / / Volume Laterality Blood 04/05/2013 10:19 AM TRAPEZE ARTIST Amaury Baltazar P.A.-C. LAB BLOOD ADD-ON Performing Organization Address City/[facility]/ZIP [facility] Phon e Number [facility] [place] [address] [place] [address] [facility] [place] documented in this encounter Visit Diagnoses Not on filedocumented in this encounter
--- OUTSIDE RECORDS SUMMARY | 2022-02-12 14:31 | XMS_ITS | Encounter Summary ---
:1985 Author Organization [facility] Address [address] [place] [address] Care Team Providers Name Role Phone Unavailable Primary Care Provider Unavailable Encounter Details Date Type Department Care Team Description 09/21/2004 Hospital Encounter HX [facility] Bushra Flores M.D. Social History Tobacco Use Types Packs/Day Years Used Date Smoking Tobacco: Never Assessed Sex Assigned at Date Recorded Not on file documented as of this encounter Plan of Treatment Not on filedocumented as of this encounter Visit Diagnoses Not on filedocumented in this encounter
--- OUTSIDE RECORDS SUMMARY | 2022-02-12 14:31 | XMS_ITS | Encounter Summary ---
:1985 Author Organization [facility] Address [address] [place] [address] Care Team Providers Name Role Phone Unavailable [...]
--- OUTSIDE RECORDS SUMMARY | 2022-02-12 14:31 | XMS_ITS | Encounter Summary ---
:1985 Author Organization [facility] Address [address] [place] [address] Care Team Providers Name Role Phone Unavailable [...]
--- OUTSIDE RECORDS SUMMARY | 2022-02-12 14:31 | XMS_ITS | Encounter Summary ---
:1985 Author Organization [facility] Address [address] [place] [address] Care Team Providers Name Role Phone Unavailable Primary Care Provider Unavailable Encounter Details Date Type Department Care Team Description 10/03/2004 Hospital Encounter HX [facility] Provider, Historical WOMENSCOUT Social History Tobacco Use Types Packs/Day Years Used Date Smoking Tobacco: Never Assessed Sex Assigned at Date Recorded Not on file documented as of this encounter Plan of Treatment Not on filedocumented as of this encounter Visit Diagnoses Not on filedocumented in this encounter
--- OUTSIDE RECORDS SUMMARY | 2022-02-12 14:31 | XMS_ITS | Encounter Summary ---
:1985 Author Organization [facility] Address [address] [place] [address] Care Team Providers Name Role Phone Unavailable [...]
--- OUTSIDE RECORDS SUMMARY | 2022-02-12 14:31 | XMS_ITS | Encounter Summary ---
:1985 Author Organization [facility] Address [address] [place] [address] Care Team Providers Name Role Phone Unavailable Primary Care Provider Unavailable Encounter Details Date Type Department Care Team Description 11/11/2013 Hospital Encounter HX [facility] Zeina Cortes M.D. Social History Tobacco Use [...] 11/11/2013 11:42 AM CDT ED Discharge Instructions [place] [id number] Name: SILVIA STEELE Date of : 1985 12:00 AM Visit Date: 11/11/2013 10:55 AM [facility] Number: [id number] Address: [address] [place] [address] Primary Care Provider: PCP, ELSEWHERE IMPORTANT: [facility] in [place] would like to thank you for allowing us to assist youwith your healthcare needs. The following includes patient education materials and information regarding your injury/illness. Diagnosis: Aftercare Suture Removal Post Operative Follow-Up Instructions: With: Address: When: ELSEWHERE PCP Within As Needed Comments: Your Upcoming Appointments: Date Time Location Reason Provider No Appointments found Patient Education Materials: [id number] SUTURE REMOVAL (No complication) You were seen [...] provider If the wound edges re-open ?? [phone] [place] [address]. All rights reserved. This information is not [...] a ride home with a responsible democrat. CEDRIC Ward KRISTINA LYNN , or responsible democrat [...] with a responsible democrat. I, SILVIA STEELE , or responsible democrat have received this information and my questions have been answered. I have discussed any challenges I see with this plan with the nurse or physician. Patient Signature or Responsible Republican/Relationship Date Time Provider Signature Date Time Source: [facility] POWERCHART Document Id: [id number] Kimi Boyle L.P.N. - 11/11/2013 11:42 AM CDT ED Depart Summary [facility] Emergency Department / Urgent Care Clinical Discharge Summary PERSON INFORMATION Name SILVIA STEELE Age 28 Years 1985 12:00 AM Sex Female Language Dutch PCP PCP, ELSEWHERE Marital Status Single Visit Id Visit Reason Wound reevaluation with or without suture removal; REMOVE SUTURES Specialty [facility] Type [facility] Outpatient Med Service Urgent Care Referred by Track Group [facility] ED/UC Discharge 11/11/2013 11:42 AM Tracking Id [id number] Checkout 11/11/2013 11:42 AM Checkin 11/11/2013 10:55 AM Acuity 5 -Non Urgent Dispo Type * Discharged to Home or Self Care Arrival 11/11/2013 10:55 AM Reg Status Complete LOS 000 00:47 Address: [address] [place] [address] Comment: PROVIDER INFORMATION Provider Role Provider Contact Time KIMI BOYLE LPN ED Nurse 11/11/13 11:00 ARIANE CORTES MD ED Provider 11/11/13 11:00 DIAGNOSIS Aftercare Suture Removal Post Operative Comment: PATIENT EDUCATION INFORMATION Instructions: SUTURE REMOVAL, No Complication Follow up: With: Address: When: ELSEWHERE PCP Within As Needed Comments: Source: [facility] POWERCHART Document Id: [id number] documented in this encounter Progress Notes Ariane Cortes M.D. - 11/11/2013 10:55 AM CDT [id number] CHIEF COMPLAINT/REASON FOR VISIT Staple removal. HISTORY [...] CORTES MD On: 11/12/2013 04:19 PM Source: [facility] MHSDOLBEYNONRADSYS Document Id: [id number] documented in this encounter H&P Notes Kimi [...] Preferred Communication Mode : Verbal Languages : Dutch KIMI BOYLE LPN - 11/11/2013 11:08 CDT [...] CDT Psychosocial Domestic Abuse Concerns : None Bahai Preference : No Bahai Affiliation KIMI BOYLE ELLY - 11/11/2013 11:08 CDT Advance Directive Advanced Directives : No BOYLEKIMI ELLY - 11/11/2013 11:08 CDT Educ Needs Learning Style Preference Adult Grid Patient : Printed materials Family : Printed materials BOYLEKIMI ELLY - 11/11/2013 11:08 CDT Source: [facility] Document Id: [id number] CDT!32 documented in this encounter ED Notes [...] BOYLE LPN - 11/11/2013 11:42 CDT Source: [facility] Document Id: [id number] CDT!8 Trisha Calderon R.N. - 11/11/2013 10:56 [...] Code: NKP ; Last Updated: 05/15/2013 16:30 WELLNESS COACH; Life Cycle Date: 05/15/2013 ; Life Cycle Status: Active ; Vocabulary: Karen Diagnoses(Active) Wound reevaluation with or without suture removal Date: 11/11/2013 ; Diagnosis Type: Reason For Visit ; Confirmation: Complaint of ; Clinical Dx: Wound reevaluation with or without suture removal ; Classification: Medical ; Clinical Service: Emergency medicine ; Code: PNED ; Probability: 0 ; DiagnosisCode: [id number] Triage Chief Complaint Description : PT IS HERE TO HAVE LIZETH REMOVED FROM THE TOP RIGHT SCALP. PT HAD RUN INTO AN OPEN WINDOW OUTSIDE. Information Given By : Patient Accompanied By : Significant other Mode of Arrival ED : Private vehicle, Ambulatory Track : Medical Languages : Dutch Patient Informed of Triage Location : Urgent Care Treatments Prior to Arrival : None TRISHA CALDERON RN - 11/11/2013 10:56 CDT Pain Assessment Pain Symptoms : No TRISHA CALDERON RN - 11/11/2013 10:56 CDT DENNY DCP GENERIC CODE Tracking Acuity : 5 -Non Urgent Tracking Group : [facility] ED/ TRISHA CALDERON RN - 11/11/2013 10:56 CDT Source: [facility] Document Id: [id number] CDT!16 documented in this encounter Plan of Treatment Not on filedocumented as of this encounter Visit Diagnoses Not on filedocumented in this encounter
--- OUTSIDE RECORDS SUMMARY | 2022-02-12 14:31 | XMS_ITS | Encounter Summary ---
:1985 Author Organization [facility] Address [address] [place] [address] Care Team Providers Name Role Phone Unavailable Primary Care Provider Unavailable Encounter Details Date Type Department Care Team Description 07/04/2004 Hospital Encounter HX [facility] Provider, His torical Social History Tobacco Use Types Packs/Day Years Used Date Smoking Tobacco: Never Assessed Sex Assigned at Date Recorded Not on file documented as of this encounter Plan of Treatment Not on filedocumented as of this encounter Visit Diagnoses Not on filedocumented in this encounter
--- OUTSIDE RECORDS SUMMARY | 2022-02-12 14:31 | XMS_ITS | Encounter Summary ---
:1985 Author Organization [facility] Address [address] [place] [address] Care Team Providers Name Role Phone Unavailable [...]
--- OUTSIDE RECORDS SUMMARY | 2022-02-12 14:31 | XMS_ITS | Encounter Summary ---
:1985 Author Organization [facility] Address [address] [place] [address] Care Team Providers Name Role Phone Unavailable [...]
--- OUTSIDE RECORDS SUMMARY | 2022-02-12 14:31 | XMS_ITS | Encounter Summary ---
:1985 Author Organization [facility] Address [address] [place] [address] Care Team Providers Name Role Phone Unavailable [...]
--- OUTSIDE RECORDS SUMMARY | 2022-02-12 14:31 | XMS_ITS | Encounter Summary ---
:1985 Author Organization [facility] Address [address] [place] [address] Care Team Providers Name Role Phone Unavailable Primary Care Provider Unavailable Encounter Details Date Type Department Care Team Description 08/13/2004 Hospital Encounter HX [facility] Akilah Hyde M .D. [address] [place] [address] (Wo rk) Social History Tobacco Use Types Packs/Day Years Used Date Smoking Tobacco: Never Assessed Sex Assigned at Date Recorded Not on file documented as of this encounter Plan of Treatment Not on filedocumented as of this encounter Visit Diagnoses Not on filedocumented in this encounter
--- OUTSIDE RECORDS SUMMARY | 2022-02-12 14:31 | XMS_ITS | Encounter Summary ---
:1985 Author Organization [facility] Address [address] [place] [address] Care Team Providers Name Role Phone Unavailable Primary Care Provider Unavailable Encounter Details Date Type Department Care Team Description 10/03/2004 - Hospital Encounter HX [facility] 10/05/2004 SC A, D.O. Social History Tobacco Use Types Packs/Day Years Used Date Smoking Tobacco: Never Assessed Sex Assigned at Date Recorded Not on file documented as of this encounter Plan of Treatment Not on filedocumented as of this encounter Visit Diagnoses Not on filedocumented in this encounter
--- OUTSIDE RECORDS SUMMARY | 2022-02-12 14:31 | XMS_ITS | Encounter Summary ---
:1985 Author Organization [facility] Address [address] [place] [address] Care Team Providers Name Role Phone Unavailable Primary Care Provider Unavailable Encounter Details Date Type Department Care Team Description 09/24/2004 [facility] Social History Tobacco Use Types Packs/Day Years Used Date Smoking Tobacco: Never Assessed Sex Assigned at Date Recorded Not on file documented as of this encounter Plan of Treatment Not on filedocumented as of this encounter Visit Diagnoses Not on filedocumented in this encounter
--- OUTSIDE RECORDS SUMMARY | 2022-02-12 14:31 | XMS_ITS | Encounter Summary ---
:1985 Author Organization [facility] Address [address] [place] [address] Care Team Providers Name Role Phone Unavailable Primary Care Provider Unavailable Encounter Details Date Type Department Care Team Description 09/07/2004 Hospital Encounter HX [facility] Obdulio West M.D. Social History Tobacco Use Types Packs/Day Years Used Date Smoking Tobacco: Never Assessed Sex Assigned at Date Recorded Not on file documented as of this encounter Plan of Treatment Not on filedocumented as of this encounter Visit Diagnoses Not on filedocumented in this encounter
--- OUTSIDE RECORDS SUMMARY | 2022-02-12 14:31 | XMS_ITS | Encounter Summary ---
:1985 Author Organization [facility] Address [address] [place] [address] Care Team Providers Name Role Phone Unavailable [...]
--- OUTSIDE RECORDS SUMMARY | 2022-02-12 14:31 | XMS_ITS | Encounter Summary ---
:1985 Author Organization [facility] Address [address] [place] [address] Care Team Providers Name Role Phone Unavailable Primary Care Provider Unavailable Encounter Details Date Type Department Care Team Description 08/17/2004 Hospital Encounter HX [facility] Provider, Historical WOMENSCOUT Social History Tobacco Use Types Packs/Day Years Used Date Smoking Tobacco: Never Assessed Sex Assigned at Date Recorded Not on file documented as of this encounter Plan of Treatment Not on filedocumented as of this encounter Visit Diagnoses Not on filedocumented in this encounter
--- OUTSIDE RECORDS SUMMARY | 2022-02-12 14:31 | XMS_ITS | Encounter Summary ---
:1985 Author Organization [facility] Address [address] [place] [address] Care Team Providers Name Role Phone Unavailable Primary Care Provider Unavailable Encounter Details Date Type Department Care Team Description 06/30/2005 Hospital Encounter HX [facility] Provider, Historical [facility] Social History Tobacco Use Types Packs/Day Years Used Date Smoking Tobacco: Never Assessed Sex Assigned at Date Recorded Not on file documented as of this encounter Plan of Treatment Not on filedocumented as of this encounter Visit Diagnoses Not on filedocumented in this encounter
--- OUTSIDE RECORDS SUMMARY | 2022-02-12 14:31 | XMS_ITS | Encounter Summary ---
:1985 Author Organization [facility] Address [address] [place] [address] Care Team Providers Name Role Phone Unavailable Primary Care Provider Unavailable Encounter Details Date Type Department Care Team Description 2013 Hospital Encounter HX [facility] Naty Xie M.D. Social History Tobacco Use Types Packs/Day Years Used Date Smoking Tobacco: Never Assessed Sex Assigned at Date Recorded Not on file documented as of this encounter Last Filed Vital Signs Vital Sign Reading Time Taken Comments Blood Pressure 108/72 2013 9:20 AM HIGH SPEED WARPER TENDER Pulse 92 2013 9:20 AM HIGH SPEED WARPER TENDER Temperature - - Respiratory Rate 18 2013 9:20 AM HIGH SPEED WARPER TENDER Oxygen Saturation - - Inhaled Oxygen Concentration - - Weight 103 kg (227 lb 11.8 oz) 2013 9:20 AM HIGH SPEED WARPER TENDER Height - - Body Mass Index - - documented in this encounter Progress Notes Naty Xie M.D. - 2013 9:14 AM CST [id number] MED DATE: 2013 A 28-year-old, who is [...] to return to work. She works at [employer], so she missed a total of 5 [...] time she is scheduled. Naty Xie MD//batsheva #[id number] cc: Electronically Signed By: NATY XIE MD On: 05/20/2013 12:07 PM Source: [facility] FSHDICTAPHONESYS Document Id: [id number] SPEED WARPER TENDER documented in this encounter Miscellaneous Notes Miscellaneous - Naty Xie M.D. - 2013 12:42 PM CST Ambulatory Depart Summary [address] [id number] Visit Information Name: RADHA STEELE [facility] Number: [id number] Visit Date: 2013 12:42:32 Attending [...] in case of emergency. Additional Information: Source: [facility] POWERCHART Document Id: [id number] SPEED WARPER TENDER Miscellaneous - Naty Xie M.D. - 2013 12:42 PM CST [place] [address] Visit Information Name: RADHA STEELE [facility] Number: [id number] Current Date: 2013 12:42:33 Physicians [...] appointment detail needed. Your Goals/Additional instructions: Source: [facility] POWERCHART Document Id: [id number] SPEED WARPER TENDER Miscellaneous - Radha Herrera LEmekaP.N. - 2013 9:20 AM CST Adult Filter Tip Catcher Intake/History Adult Filter Tip Catcher Intake/History Entered On: 2013 9:25 HIGH SPEED WARPER TENDER Performed On: 2013 9:20 HIGH SPEED WARPER TENDER by RADHA HERRERA OIL DERRICK OPERATOR Intake Chief Complaint : Recheck Abdomen & [...] kg RADHA HERRERA LPN - 2013 9:20 HIGH SPEED WARPER TENDER General Info Information Given By : Patient Languages : Swedish RADHA HERRERA LPN - 2013 9:20 HIGH SPEED WARPER TENDER Subjective Pain Symptoms : Yes RADHA HERRERA LPN - 2013 9:20 HIGH SPEED WARPER TENDER Pain Pain Assessment Grid Pain 1 Location : Abdomen Intensity : 4 RADHA HERRERA LPN - 2013 9:20 HIGH SPEED WARPER TENDER Dependent Habits Tobacco Use/Currently Using : Yes Exposure to Tobacco Smoke : Patient smokes Smoking Status : Current every day smoker Alcohol Use : Yes RADHA HERRERA LPN - 2013 9:20 HIGH SPEED WARPER TENDER [facility] POWERCHART Document Id: [id number] HIGH SPEED WARPER TENDER!31 SPEED WARPER TENDER documented in this encounter Plan of Treatment Not on filedocumented as of this encounter Procedures Procedure Name Priority Date/Time Associated Comments Diagnosis URINALYSIS, ROUTINE Routine 2013 10:24 Resu lts for this AM HIGH SPEED WARPER TENDER procedure are i n the results section. URINE MICROSCOPIC Routine 2013 10:24 Result s for this AM HIGH SPEED WARPER TENDER procedure are i n the results section. CBC WITH DIFFERENTIAL, Routine 2013 10:24 R esults for this B AM HIGH SPEED WARPER TENDER procedure are i n the results section. COMPREHENSIVE Routine 2013 10:24 Results fo r this METABOLIC PANEL, S/P AM HIGH SPEED WARPER TENDER procedu re are in the results section. documented in this encounter Results CBC with Differential (2013 10:24 AM HIGH SPEED WARPER TENDER) P athologist Signature Leukocytes 5.2 3.5 - [...] 0.1 MISYS [id number] [place] Comment: PERFORMED AT [facility] , [address] [facility] [place] [id number] Specimen (Source) Anatomical Collection Method Collection Time Re ceived Time Location / / Volume Laterality Blood 2013 10:24 AM HIGH SPEED WARPER TENDER Naty Xie M.D. LAB BLOOD ADD-ON Performing Organization Address City/State/ZIP Code Phon e Number MISYS [place] [address] [place] [address] [facility] [place] (ABNORMAL) Urine Microscopic (2013 10:24 AM HIGH SPEED WARPER TENDER) [facility] Method Time Signature HXUr WBC <6 LT6 HPF [facility] [place] Red Blood Cell <3 LT3 HPF MISYS Clump, Urine [place] HXUr 4+ (A) NS MISYS Epithelial [place] HXUr Bacteria SOME (A) NS [facility] [place] HX Ur Casts NOT SEEN 0 - 3 LPF [facility] [place] Crystals NOT SEEN NS MISYS [place] Comment SPECIMEN MISYS UNSUITABLE FOR [place] CULTURE Comment: PERFORMED AT [facility] , [address] [place] [address] Specimen Anatomical Collection Method Collection Time Receive d Time (Source) Location / / Volume Laterality Urine 2013 10:24 2013 AM HIGH SPEED WARPER TENDER 10:49 AM HIGH SPEED WARPER TENDER Naty Xie M.D. LAB URINE ORDERABLES Performing Organization Address [facility] Phon e Number [facility] [place] [address] [place] [address] MISYS [place] (ABNORMAL) Urinalysis, Routine (2013 10:24 AM HIGH SPEED WARPER TENDER) [facility]tera Method Time Signature HXUA Spec Type CLEAN VOID [facility] [place] Appearance YELLOW [facility] [place] Comment: HAZY Glucose NEGATIVE NEG MGDL [facility] [place] HXBILIRUBIN NEGATIVE NEG [facility] [place] Ketones, QL(U) NEGATIVE NEG MGDL [facility] [place] Specific [place], POCT, U 1.020 1.005 - 1.03 M [...] / Volume Laterality Urine 2013 10:24 AM HIGH SPEED WARPER TENDER Naty Xie M.D. LAB URINE ORDERABLES Performing Organization Address [facility] Phon e Number M[facility]YS [place] [address] [place] [address] [facility] [place] CMP (Comprehensive Metabolic Panel) (2013 10:24 AM HIGH SPEED WARPER TENDER) Component Value Ref Test Analysis Performed At [facility] Range Method Time Signature Sodium, S 138 [...] GMDL [place] HXeGFR (MDRD) >80 >80 MISYS [id number] [place] M2 eGFR Black/ >80 >80 MISYS [place] [id number] [place] M2 HXEGFR Note AVERAGE GFR MISYS FOR 18-29 [place] YEARS OLD = 116 ML/MIN/1.73 M2 Comment: CHRONIC KIDNEY DISEASE <60 ML/MIN/1.73M2 KIDNEY FAILURE <15 ML/MIN/1.73M2 THIS ESTIMATED GFR IS CALCULATED FOR JUDIT LTS, 18 AND OLDER, WITH STABLE KIDNEY FUNCTION USING THE RECALIBRATED CREATININE VALUE AND ABBREVIATED MDRD FORMULA. ??PLEASE DIRECT QUESTIONS TO [email or web address] THE GRF RESULT SHOULD NOT BE USED FOR RE NAL DRUG DOSING ADJUSTMENTS ACCORDING TO THE NATIONAL DISEASE EDUCATION PROGRAM. PERFORMED AT [facility], [facility] [place] [address] Specimen (Source) Anatomical Collection Method Collection Time Re ceived Time Location / / Volume Laterality Blood 2013 10:24 AM HIGH SPEED WARPER TENDER Naty Xie M.D. LAB BLOOD ADD-ON Performing Organization Address City/State/ZIP Code Phon e Number [facility] [place] [address] [place] [address] MISYS [place] documented in this encounter Visit Diagnoses Not on filedocumented in this encounter
--- OUTSIDE RECORDS SUMMARY | 2022-02-12 14:31 | XMS_ITS | Encounter Summary ---
:1985 Author Organization [facility] Address [address] [place] [address] Care Team Providers Name Role Phone Unavailable Primary Care Provider Unavailable Encounter Details Date Type Department Care Team Description 09/06/2013 Hospital Encounter HX [facility] N[facility] ED, M.D. [address] [place] [phone] (Wo rk) Social History Tobacco Use [...] 09/06/2013 9:06 PM CDT ED Discharge Instructions [facility] [address] [facility] [place] [address] Name: SILVIA MAY Date of : 1985 12:00 AM Visit Date: 09/06/2013 6:48 PM [facility] Number: [id number] Address: [address] [place] [address] Primary Care Provider: PCP, ELSEWHERE IMPORTANT: [facility] in [place] would like to thank you for allowing [...] Provider No Appointments found Patient Education Materials: [id number] DYSPNEA (Shortness of Breath) Shortness of Breath [...] dark colored or bloody sputum (mucus) ?? [id number] Lennie Swain, [address] [place] [address], [place] [address]. All rights reserved. This information is not [...] Date Time Provider Signature Date Time Source: [employer] POWERCHART Document Id: [id number] Monika Rutledge R.N. - 09/06/2013 9:06 PM CDT ED Depart Summary [facility] Emergency Department / Urgent Care Clinical Discharge Summary PERSON INFORMATION Name SILVIA MAY Age 28 Years 1985 12:00 AM Sex Female Language Zambian PCP PCP, ELSEWHERE Marital Status Single Visit Id Visit Reason SOB - Shortness of breath; SOB - Shortness of breath; SOB Specialty Enc Type Emergency Med Service Emergency Medicine Referred by Track Group [facility] ED/UC Discharge 09/06/2013 9:06 PM Tracking Id [id number] Checkout 09/06/2013 9:06 PM Checkin 09/06/2013 6:48 PM Acuity 3 -Urgent Dispo Type * Discharged to Home or Self Care Arrival 09/06/2013 6:48 PM Reg Status Complete LOS 000 02:18 Address: [address] [place] [address] Comment: PROVIDER INFORMATION Provider Role Provider Contact Time DEVI RAZA RN ED Nurse 09/06/13 18:57 TIMBO JUAREZ ED Barrel Lathe Operator Outside 09/06/13 18:57 LANE SHI MD ED Provider 09/06/13 19:11 DIAGNOSIS Comment: PATIENT EDUCATION INFORMATION Instructions: DYSPNEA Follow up: With: Address: When: ELSEWHERE PCP Within As Needed Comments: REST SLEEP WELL dRINK FLUIDS Return if getting worse follow in clinic or return to ER if not better tomorrow Source: [facility] Localist Document Id: [id number] documented in this encounter ED Notes Monika Rutledge, R.N. - 09/06/2013 9:05 PM CDT ED Pain Assessment ED Pain Assessment Entered On: 09/06/2013 21:05 CDT Performed On: 09/06/2013 21:05 CDT by MONIKA RUTLEDGE RN Pain Assessment Pain Symptoms : No MONIKA RUTLEDGE RN - 09/06/2013 21:05 CDT Source: [facility] Localist Document Id: [id number] CDT!3 Monika Rutledge R.N. - 09/06/2013 9:05 [...] at Discharge from ED : Improved MONIKA RUTLEDGE RN - 09/06/2013 21:05 CDT Source: [employer] Document Id: [id number] CDT!8 Devi Raza R.N. - 09/06/2013 8:39 [...] RAZA RN - 09/06/2013 20:39 CDT Source: [employer] Document Id: [id number] CDT!15 Lane Shi M.D. - 09/06/2013 7:27 PM CDT SOB - Shortness of breath Patient: SILVIA MAY Age: 28 years Sex: Female : 1985 Author: LANE [...] PowerChart. Cytopathology, slides, cervical or vaginal (the Darden System); manual screening under physician supervision (CPT4 99339) in the week of 03/10/2004 at 18 Years. Comments: 04/18/2010 21:45 - CARMEN MORALES Hx: [id number] - LAB-CYTOPATH, SM,D/V,TDS<3SM TECH 03/21/2013 17:41 - [...] neb (Order Processing): 2.5 mg, NEB, Once. 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 Electrocardiogram:Rate 99, normal sinus rhythm. Results review:Lab results : Lab View 09/06/2013 19:30 CDT Hgb 14.0 g/dL Hct 41.6 % WBC 7.2 x10(9)/L RBC 4.57 x10(12)/L MCV 91.0 fL RDW 13.0 % Platelet 243 x10(9)/L Neutro % 54 % NA Lymph % 33 % NA Amite % 7 % NA Eos % 5 % NA Baso % 1 % NA Neutro Absolute 3.92 10(9)/L Lymph Absolute 2.41 x10(9)/L Amite Absolute 0.49 x10(9)/L Eos Absolute 0.33 x10(9)/L [...] SHI MD On: 09/06/2013 08:19 PM Source: [facility] POWERCHART Document Id: [id number]} Franca Brito R.N. - 09/06/2013 6:52 PM [...] Code: NKP ; Last Updated: 05/15/2013 16:30 EMISSION SPECIALIST; Life Cycle Date: 05/15/2013 ; Life Cycle Status: Active ; Vocabulary: Cerner Diagnoses(Active) SOB - Shortness of breath Date: 09/06/2013 ; Diagnosis Type: Reason For Visit ; Confirmation: Complaint of ; Clinical Dx: SOB - Shortness of breath ; Classification: Medical ; Clinical Service: Non-Specified ; Code: PNED ; Probability: 0 ; Diagnosis Code: [id number] Triage Chief Complaint Description : pt arrives c/o acute SOB onset today. Reports cant catch breath, lots of yawning and deep breathing. Pt appears diaphoretic and anxious at triage. Information Given By : Patient Accompanied By : Alone Mode of Arrival ED : Private vehicle Track : Medical Languages : Zambian Patient Informed of Triage Location : Emergency [...] : 3 -Urgent Tracking Group : [facility] ED/ DARYL FRANCA RN - 09/06/2013 18:52 CDT Source: [facility] Localist Document Id: [id number] CDT!25 Devi Raza R.N. - 09/06/2013 6:55 [...] Code: NKP ; Last Updated: 05/15/2013 16:30 EMISSION SPECIALIST; Life Cycle Date: 05/15/2013 ; Life Cycle Status: Active ; Vocabulary: Cerner Diagnoses(Active) SOB - Shortness of breath Date: 09/06/2013 ; Diagnosis Type: Reason For Visit ; Confirmation: Complaint of ; Clinical Dx: SOB - Shortness of breath ; Classification: Medical ; Clinical Service: Non-Specified ; Code: PNED ; Probability: 0 ; Diagnosis Code: [id number] SOB - Shortness of breath Date: 09/06/2013 ; Diagnosis Type: Reason For Visit ; Confirmation: Confirmed ; Clinical Dx: SOB - Shortness of breath ; Classification: Medical ; Clinical Service: Emergency medicine ; Code: PNED ; Probability: 0 ; Diagnosis Code: [id number] Triage Chief Complaint Description : Pt states she feels sob. No audible wheezing. Lung sounds are slight crackles in lower lobes. Pt denies cough or feeling ill recently. No temp. She is tachypneic and tachycardic. Pt is a smoker. Has had anxiety in the past but has not been diagnosed. Mode of Arrival ED : Private vehicle Track : Medical Languages : Zambian Treatments Prior to Arrival : None DEVI RAZA RN - 09/06/2013 19:25 CDT Pain Assessment Pain Symptoms : No DEVI RAZA RN - 09/06/2013 19:25 CDT ED Physician Notification Time ED Physician Notification Time : 09/06/2013 6:55 CDT DEVI RAZA RN - 09/06/2013 19:25 CDT Source: [employer] Document Id: [id number] CDT!11 documented in this encounter Miscellaneous Notes Miscellaneous - Monika Rutledge R.N. - 09/06/2013 9:05 PM CDT Valuables/Belongings Valuables/Belongings Entered On: 09/06/2013 21:06 CDT Performed On: 09/06/2013 21:05 CDT by MONIKA RUTLEDGE RN Valuables/Belongings Belongings Sent Home With : patient Home Medication Disposition : None brought in with patient MONIKA RUTLEDGE RN - 09/06/2013 21:05 CDT Source: [employer] Document Id: [id number] CDT!4 Miscellaneous - Monika Rutledge R.N. - [...] Nursing Notes ED Primary Assessment,09/06/13 06:55,DEVI RAZA BONE DRIER OPERATOR Nurse Reassess,09/06/13 20:39,DEVI RAZA RN ED Pain Assessment,09/06/13 21:05,MONIKA RUTLEDGE RN Disposition : Discharge Disposition RTF : discharge Treatments Prior to Arrival : None MONIKA RUTLEDGE RN - 09/06/2013 21:06 CDT Source: [facility] POWERCHART Document Id: [id number] CDT!16 Miscellaneous - Catalina Palomo [facility] - 09/06/2013 6:48 PM CDT Facility [...] Control : 15 Lynx Visit Level : 27085 Level 5 Treatments Prior to Arrival : None CATALINA PALOMO - 09/12/2013 11:22 CDT Source: [facility] POWERCHART Document Id: [id number] CDT!19 documented in this encounter Plan of [...] 54 POWERCHART Lymphocytes % 33 POWERCHART HX Amite % 7 POWERCHART HX Eos % 5 [...] X109L Erythrocytes 4.57 3.90 - 5.03 POWERCHART C6897E Hemoglobin 14.0 12.0 - 15.5 POWERCHART GDL [...] M.D. LAB BLOOD ADD-ON Performing Organization Address City/[facility] Code Phon e Number POWERCHART D-Dimer (09/06/2013 [...] 20 MMOLL POWERCHART HXeGFR (MDRD) >60 >=60 [id number] POWERCHART eGFR Black/ >60 >=60 [id number] POWERCHART Glucose 91 70 - 139 MGDL [...]
--- OUTSIDE RECORDS SUMMARY | 2022-02-12 14:31 | XMS_ITS | Encounter Summary ---
:1985 Author Organization [facility] Address [address] [place] [address] Care Team Providers Name Role Phone Unavailable [...]
--- OUTSIDE RECORDS SUMMARY | 2022-02-12 14:31 | XMS_ITS | Encounter Summary ---
:1985 Author Organization [facility] Address [address] [place] [address] Care Team Providers Name Role Phone Unavailable [...]
--- OUTSIDE RECORDS SUMMARY | 2022-02-12 14:31 | XMS_ITS | Encounter Summary ---
:1985 Author Organization [facility] Address [address] [place] [address] Care Team Providers Name Role Phone Unavailable [...]
--- OUTSIDE RECORDS SUMMARY | 2022-02-12 14:31 | XMS_ITS | Encounter Summary ---
:1985 Author Organization [facility] Address [address] [place] [address] Care Team Providers Name Role Phone Unavailable [...]
--- OUTSIDE RECORDS SUMMARY | 2022-02-12 14:31 | XMS_ITS | Encounter Summary ---
:1985 Author Organization [facility] Address [address] [place] [address] Care Team Providers Name Role Phone Unavailable Primary Care Provider Unavailable Encounter Details Date Type Department Care Team Description 05/15/2013 Hospital Encounter HX [facility] Naty Xie M.D. Social History Tobacco Use Types Packs/Day Years Used Date Smoking Tobacco: Never Assessed Sex Assigned at Date Recorded Not on file documented as of this encounter Last Filed Vital Signs Vital Sign Reading Time Taken Comments Blood Pressure 112/51 05/15/2013 3:39 PM CONICAL MIXER Pulse 120 05/15/2013 3:39 PM CONICAL MIXER Temperature - - Respiratory Rate 28 05/15/2013 3:39 PM CONICAL MIXER Oxygen Saturation - - Inhaled Oxygen Concentration - - Weight 104 kg (228 lb 6.3 oz) 05/15/2013 3:39 PM CONICAL MIXER Height - - Body Mass Index - - documented in this encounter Progress Notes Naty Xie M.D. - 05/15/2013 3:14 PM CST [id number] MED DATE: 05/15/2013 A 27-year-old with about 12 hours of abdominal discomfort with body aches, fever, first vomiting then diarrhea. No eating of anything tainted as far as she knows. Her appetite has been poor. She works at [employer], so she had to call in today [...] today the to . Naty Xie MD//batsheva #[id number] cc: Electronically Signed By: NATY XIE MD On: 05/17/2013 01:43 PM Source: [facility] Document Id: [id number] CAL MIXER documented in this encounter Miscellaneous Notes Miscellaneous - Naty Xie M.D. - 05/15/2013 4:15 PM CST Ambulatory Patient Summary [place] [id number] Visit Information Name: RADHA STEELE [facility] Number: [id number] Current Date: 05/15/2013 16:15:18 [...] appointment detail needed. Your Goals/Additional instructions: [facility] Document Id: [id number] CAL MIXER Olga - Naty Xie M.D. - 05/15/2013 4:15 PM CST Ambulatory [place] [address] Visit Information Name: RADHA STEELE [facility] Number: [id number] Visit Date: 05/15/2013 16:15:17 [...] in case of emergency. Additional Information: Source: [employer] Document Id: [id number] CAL MIXER Miscellaneous - Radha Herrera L.P.N. 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 Intake/History Adult Wood Tool Maker Intake/History Entered On: 05/15/2013 15:45 CONICAL MIXER Performed On: 05/15/2013 15:39 CONICAL MIXER by RADHA HERRERA LPN Intake Chief Complaint [...] kg RADHA HERRERA LPN - 05/15/2013 15:39 CONICAL MIXER General Info Information Given By : Patient Languages : Greenlandic RADHA HERRERA LPN - 05/15/2013 15:39 CONICAL MIXER Subjective Pain Symptoms : Yes RADHA HERRERA LPN - 05/15/2013 15:39 CONICAL MIXER Pain Pain Assessment Grid Pain 1 Location : Abdomen Intensity : 7 Time Pattern : Acute Onset : Sudden Duration : since this am Quality : Sharp Pain Radiation : No Aggravating Factors : None Alleviating Factors : None Associated Symptoms : Nausea, Vomiting, Other: fever Interventions : Other: drinking water RADHA HERRERA LPN - 05/15/2013 15:39 CONICAL MIXER Dependent Habits Tobacco Use/Currently Using : Yes Exposure to Tobacco Smoke : Patient smokes Smoking Status : Current every day smoker Alcohol Use : Yes RADHA HERRERA LPN - 05/15/2013 15:39 CONICAL MIXER Source: [facility] POWERCHART Document Id: [id number] CONICAL MIXER!39 CAL MIXER documented in this encounter Plan of Treatment Not on filedocumented as of this encounter Visit Diagnoses Not on filedocumented in this encounter
--- OUTSIDE RECORDS SUMMARY | 2022-02-12 14:31 | XMS_ITS | Encounter Summary ---
:1985 Author Organization [facility] Address [address] [place] [address] Care Team Providers Name Role Phone Unavailable Primary Care Provider Unavailable Encounter Details Date Type Department Care Team Description 11/09/2012 Hospital Encounter HX [facility] Amaury Carbajal, P.A.-C. [address] [place] [address] (Wo rk) Social History Tobacco Use Types Packs/Day Years Used Date Smoking Tobacco: Never Assessed Sex Assigned at Date Recorded Not on file documented as of this encounter Plan of Treatment Not on filedocumented as of this encounter Visit Diagnoses Not on filedocumented in this encounter
--- OUTSIDE RECORDS SUMMARY | 2022-02-12 14:31 | XMS_ITS | Encounter Summary ---
:1985 Author Organization [facility] Address [address] [place] [address] Care Team Providers Name Role Phone Unavailable Primary Care Provider Unavailable Encounter Details Date Type Department Care Team Description 03/16/2010 Hospital Encounter HX NO MAPPING Isa Casiano M.D. [address] [place] [phone] (Wo rk) Social History Tobacco Use Types Packs/Day Years Used Date Smoking Tobacco: Never Assessed Sex Assigned at Date Recorded Not on file documented as of this encounter Discharge Summaries Conversion, Historical Provider Ser - 03/16/2010 6:32 AM CST ED Discharge Instructions [facility] - [address] [address] Name: SILVIA STEELE Date of : 1985 12:00 AM Visit Date: 03/16/2010 3:42 AM FIN: Current Date: 03/16/2010 06:32:33 Address: Phone: Primary Care Provider: Name: IMPORTANT: [facility] would like to thank you for [...] return to the Emergency Department. IMPORTANTE: [facility] por permitirnos asistirlo con nai necesidades m??dicas. Hoy lo examinamos y tratamos s??lo en base a fady emergencia. [place] no constituy?? ni un sustituto ni un [...] a towel soaked in hot water. Or, feed grinder the shower and direct the hot spray [...] and promote drainage from the sinuses. 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 I understand that restrictions apply [...] document has images extracted. Please consider using [employer] for all your patient education needs. Source: [employer] Document Id: [id number] Conversion, Historical Provider Ser - 03/16/2010 6:32 AM CST ED Depart Summary [facility] [place] Emergency Department Clinical Discharge Summary PERSON INFORMATION Name SILVIA STEELE Age 24 Years 1985 12:00 AM Sex Female Language PCP Marital Status Phone Visit Id Visit Reason Nauseated; Dizziness; congestion, nausea Specialty Enc Type Emergency Med Service Emergency Medicine Referred by Tamar LY ED Discharge 03/16/2010 6:22 AM Tracking Id [id number] Checkout 03/16/2010 6:22 AM Checkin 03/16/2010 3:42 AM Acuity Dispo Type Discharged to Home or Self Care Arrival 03/16/2010 3:42 AM Reg Status LOS 000 02:40 Address: Comment: PROVIDER INFORMATION Provider Role Assigned Unassigned ISA CASIANO MD ED Provider 03/16/2010 3:50 AM MIR CABRAL OPERATOR MAINTAINER Nurse 03/16/2010 3:50 AM DIAGNOSIS Acute sinusitis [...] if not improving in 4-5 days. Source: [facility] POWERCHART Document Id: [id number] documented in this encounter Nursing Notes Conversion, Historical Provider Ser - 03/16/2010 5:19 AM CST ED Primary Assessment ED Primary Assessment Entered On: 03/16/2010 5:20 CASING MACHINE OPERATOR Performed On: 03/16/2010 5:19 CASING MACHINE OPERATOR by MIR CABRAL RN Reason For Visit Diagnoses(Active) Dizziness Date: 03/16/2010 4:24 CASING MACHINE OPERATOR ; Diagnosis Type: Reason For Visit ; Confirmation: Complaint of ; Classification: Medical ; Clinical Service: Non- Specified ; Code: PNED ; Probability: 0 ; DiagnosisCode: [id number] Nauseated Date: 03/16/2010 4:24 CASING MACHINE OPERATOR ; Diagnosis Type: Reason For Visit ; Confirmation: Complaint of ; Classification: Medical ; Clinical Service: Non- Specified ; Code: PNED ; Probability: 0 ; DiagnosisCode: [id number] Triage Chief Complaint Description: Pt has not had any emesis. States dizzyness is better Information Given By: Patient Accompanied By: Spouse Mode of Arrival ED: Private vehicle Track: Medical Languages: Tajik Pain Symptoms: No Vital Signs Assessed: Yes GCS Assessed: Yes MIR CABRAL RN - 03/16/2010 5:19 CASING MACHINE OPERATOR Vital Signs Peripheral Pulse Rate: 82/min Respiratory Rate: 20/min Systolic Blood Pressure: 114mmHg Diastolic Blood Pressure: 67mmHg NIBP Mean: 83mmHg BP Location: Right upper extremity SpO2: 98% Oxygen Therapy: Room air MIR CABRAL RN - 03/16/2010 5:19 CASING MACHINE OPERATOR Blanco Coma Eye Opening Response Blanco: Spontaneously Best Verbal Response Hecker: Oriented Best Motor Response Hecker: Obeys simple commands Blanco Coma Score: 15 MIR CABRAL RN - 03/16/2010 5:19 CASING MACHINE OPERATOR Allergy Allergies (Active) NKA Estimated Onset Date: Unspecified ; Created By: ISA CASIANO MD; Reaction Status: Active ; Category: Drug ; Substance: NKA ; Type: Allergy ; Updated By: ISA CASIANO MD; Reviewed Date: 03/16/2010 4:16 CASING MACHINE OPERATOR Respiratory Airway: Patent Respirations: Unlabored Respiratory Pattern: Regular MIR CABRAL RN - 03/16/2010 5:19 CASING MACHINE OPERATOR Cardiovascular Heart Rhythm: Regular Skin Color: Normal for ethnicity Skin Description: Dry Skin Temperature: Warm MIR CABRAL RN - 03/16/2010 5:19 CASING MACHINE OPERATOR Neurological Level of Consciousness: Alert Orientation: Oriented x 3 Characteristics of Speech: Clear MIR CABRAL RN - 03/16/2010 5:19 CASING MACHINE OPERATOR ED Psychosocial Affect/Behavior: Calm, Cooperative, Appropriate Domestic Concerns: None MIR CABRAL RN - 03/16/2010 5:19 CASING MACHINE OPERATOR Gastrointestinal Nutrition ED: Adequate MIR CABRAL RN - 03/16/2010 5:19 CASING MACHINE OPERATOR Musculoskeletal Fall Prevention Education Provided: Yes MIR CABRAL RN - 03/16/2010 5:19 CASING MACHINE OPERATOR Source: [employer] Document Id: [id number] CASING MACHINE OPERATOR!45 documented in this encounter ED Notes Conversion, Historical Provider Ser - 03/16/2010 6:22 AM CST ED Disposition Summary ED Disposition Summary Entered On: 03/16/2010 6:32 CASING MACHINE OPERATOR Performed On: 03/16/2010 6:22 CASING MACHINE OPERATOR by MIR CABRAL RN ED Disposition Summary Accompanied By: Significant other Mode of Discharge: Ambulatory Transportation: Private vehicle Patient Status at Discharge from ED: Improved Comment: Pt received ibuprofen while in ED. Pt received amoxicillin for home, prescription sent to [facility]. Verbal/written discharge instructions given to Pt. Pt verbalizes understanding. MIR CABARL RN - 03/16/2010 6:30 CASING MACHINE OPERATOR Source: [employer] Document Id: [id number] CASING MACHINE OPERATOR!7 Conversion, Historical Provider Ser - 03/16/2010 4:23 AM CST ED Triage Assessment ED Triage Assessment Entered On: 03/16/2010 4:27 CASING MACHINE OPERATOR Performed On: 03/16/2010 4:23 CASING MACHINE OPERATOR by MIR CABRAL RN Reason For Visit Diagnoses(Active) Dizziness Date: 03/16/2010 4:24 CASING MACHINE OPERATOR ; Diagnosis Type: Reason For Visit ; Confirmation: Complaint of ; Classification: Medical ; Clinical Service: Non- Specified ; Code: PNED ; Probability: 0 ; DiagnosisCode: [id number] Nauseated Date: 03/16/2010 4:24 CASING MACHINE OPERATOR ; Diagnosis Type: Reason For Visit ; Confirmation: Complaint of ; Classification: Medical ; Clinical Service: Non- Specified ; Code: PNED ; Probability: 0 ; DiagnosisCode: [id number] Triage Chief Complaint Description: Pt has had nausea, sob, dizziness for about 4 hours. Does not take any medicine. Information Given By: Patient Accompanied By: Spouse Mode of Arrival ED: Private vehicle Track: Medical Languages: Tajik Pain Symptoms: No Vital Signs Assessed: Yes MIR CABRAL RN - 03/16/2010 4:23 CASING MACHINE OPERATOR Vital Signs Temperature Oral: 37.1C(Converted to: 98.8DegF) Peripheral Pulse Rate: 81/min Respiratory Rate: 20/min Systolic Blood Pressure: 146mmHg (HI) Diastolic Blood Pressure: 97mmHg (>HHI) NIBP Mean: 113mmHg BP Location: Right upper extremity SpO2: 97% Oxygen Therapy: Room air Height: 170.00cm(Converted to: 5ft 7in) Estimated Weight: 104.00kg(Converted to: 229lb 4oz) MIR CABRAL RN - 03/16/2010 4:23 CASING MACHINE OPERATOR Allergy Latex Screening: No MIR CABRAL RN - 03/16/2010 4:23 CASING MACHINE OPERATOR Allergies (Active) NKA Estimated Onset Date: Unspecified ; Created By: ISA CASIANO MD; Reaction Status: Active ; Category: Drug ; Substance: NKA ; Type: Allergy ; Updated By: ISA CASIANO MD; Reviewed Date: 03/16/2010 4:16 CASING MACHINE OPERATOR Immunizations Immunizations Current: Yes Last Tetanus: < 5 years Pneumovac: None Influenza: Last year MIR CABRAL RN - 03/16/2010 4:23 CASING MACHINE OPERATOR Source: [facility] POWERCHART Document Id: [id number] CASING MACHINE OPERATOR!29 Isa Casiano M.D. - 03/16/2010 3:42 AM [...] have this looked at. Isa Casiano MD//daisy #[id number] cc: Electronically Signed By:ISA CASIANO MD On 03/28/2010 10:18 AM Source: [facility] [employer] Document Id: [id number] NG MACHINE OPERATOR documented in this encounter Miscellaneous Notes Miscellaneous - Conversion, Historical Provider Ser - 03/16/2010 6:22 AM CASING MACHINE OPERATOR Valuables/Belongings Valuables/Belongings Entered On: 03/16/2010 6:32 CASING MACHINE OPERATOR Performed On: 03/16/2010 6:22 CASING MACHINE OPERATOR by MIR CABRAL RN Valuables/Belongings Home Medication Disposition: None brought in with patient MIR CABRAL RN - 03/16/2010 6:32 CASING MACHINE OPERATOR [facility] Document Id: [id number] CASING MACHINE OPERATOR!3 Miscellaneous - Conversion, Historical Provider Ser - 03/16/2010 4:30 AM CASING MACHINE OPERATOR Facility Charge Ticket Facility Charge Ticket Entered On: 03/19/2010 16:23 CASING MACHINE OPERATOR Performed On: 03/16/2010 4:30 CASING MACHINE OPERATOR by GROVER KANG Facility Charge TVL Level [...] with Diagnosis Control: 11 Lynx Visit Level: 37074 Level 4 GROVER KANG - 03/19/2010 16:23 CASING MACHINE OPERATOR Source: [employer] Document Id: [id number] CASING MACHINE OPERATOR!12 documented in this encounter Plan of Treatment Not on filedocumented as of this encounter Procedures Procedure Name Priority Date/Time Associated Diagnosis Comme nts CT HEAD WITHOUT IV Routine 03/16/2010 4:52 AM Res ults for this CONTRAST CASING MACHINE OPERATOR procedure are i n the results section. DX CHEST AP OR PA Routine 03/16/2010 4:17 AM Resu lts for this AND LATERAL 2 VIEWS CASING MACHINE OPERATOR procedur e are in the results section. documented in this encounter Results CT Head without IV Contrast (03/16/2010 4:52 AM CASING MACHINE OPERATOR) Anatomical Region Laterality Modality Head N/A Computed Tomography Specimen (Source) Anatomical Collection Method Collection Time Re ceived Time Location / / Volume Laterality 03/16/2010 4:52 AM CASING MACHINE OPERATOR Impressions 03/16/2010 5:01 AM CASING MACHINE OPERATOR Findings as above. ?? Results in accordance with those origina lly described by Dr. Arias ?? Maria Esther from [facility]. ?? Transcribed by: ??[email or web address] on Mar 16 2010 ??8:30A ?? Read by: ? VANNESSA BOLIVAR ??on Mar 16 2010 ??8:30A ?? Signed by: VANNESSA BOLIVAR on Mar 1719 02 10:02A ? Narrative 03/16/2010 5:01 AM CASING MACHINE OPERATOR INDICATION: HEADACHE-LEFT PARIETAL. ACCESSION No: ? [id number] DATE OF EXAM: Mar 16 2010 ??05:01 [...] - 09/25/2016 INDICATION: HEADACHE-LEFT PARIETAL. ACCESSION No: [id number] DATE OF EXAM: Mar 16 2010 05:01 [...] kearney described by Dr. Juana Mayo from [facility]. Transcribed by: GUSTAVO on Mar 16 2010 8: 30A Read by: VANNESSA BOLIVAR on Mar 16 2010 8:30A Signed by: VANNESSA BOLIVAR on Mar 1719 02 10:02A Vannessa Bolivar Jr., M.D. IMG CT PROCEDURES DX Chest AP or PA and Lateral 2 Views (03/16/2010 4:17 AM CASING MACHINE OPERATOR) Anatomical Region Laterality Modality Chest N/A Radiographic Imaging Specimen (Source) Anatomical Collection Method Collection Time Re ceived Time Location / / Volume Laterality 03/16/2010 4:17 AM CASING MACHINE OPERATOR Impressions 03/16/2010 4:21 AM CASING MACHINE OPERATOR ??The heart size is normal in the lungs are clear and ?? expanded. Transcribed by: ??GUSTAVO on Mar 16 2010 ??8:52A ?? Read by: ? VANNESSA BOLIVAR ??on Mar 16 2010 ??8:52A ?? Signed by: VANNESSA BOLIVAR on Mar 1619 02 ??8:52A ? Narrative 03/16/2010 4:21 AM CASING MACHINE OPERATOR INDICATION: SHORTNESS OF BREATH; ACCESSION No: ? [id number] DATE OF EXAM: Mar 16 2010 ??04:21 EXAM CODE and DESCRIPTION: F3D ?? 1002 - ?? XR CHEST PA AND LAT RESULT: Chest with lateral ?? Procedure Note Vannessa Bolivar Jr., M.D. / Provider Kay M.D. - 09/25/2016 INDICATION: SHORTNESS OF BREATH; ACCESSION No: [id number] DATE OF EXAM: Mar 16 2010 04:21 [...] Vannessa Bolivar Jr., M.D. IMG DIAGNOSTIC IMAGING DC OCEDURES documented in this encounter Visit Diagnoses Not on filedocumented in this encounter
--- OUTSIDE RECORDS SUMMARY | 2022-02-12 14:31 | XMS_ITS | Encounter Summary ---
:1985 Author Organization [facility] Address [address] [place] [address] Care Team Providers Name Role Phone Unavailable Primary Care Provider Unavailable Encounter Details Date Type Department Care Team Description 08/18/2004 Hospital Encounter [facility]X [facility] Bushra Flores M.D. Social History Tobacco Use Types Packs/Day Years Used Date Smoking Tobacco: Never Assessed Sex Assigned at Date Recorded Not on file documented as of this encounter Plan of Treatment Not on filedocumented as of this encounter Visit Diagnoses Not on filedocumented in this encounter
--- OUTSIDE RECORDS SUMMARY | 2022-02-12 14:31 | XMS_ITS | Encounter Summary ---
:1985 Author Organization [facility] Address [address] [place] [address] Care Team Providers Name Role Phone Unavailable [...]
--- OUTSIDE RECORDS SUMMARY | 2022-02-12 14:31 | XMS_ITS | Encounter Summary ---
:1985 Author Organization [facility] Address [address] [place] [address] Care Team Providers Name Role Phone Unavailable Primary Care Provider Unavailable Encounter Details Date Type Department Care Team Description 09/11/2004 Hospital Encounter HX [facility] Provider, Historical WOMENSCOUT Social History Tobacco Use Types Packs/Day Years Used Date Smoking Tobacco: Never Assessed Sex Assigned at Date Recorded Not on file documented as of this encounter Plan of Treatment Not on filedocumented as of this encounter Visit Diagnoses Not on filedocumented in this encounter
--- OUTSIDE RECORDS SUMMARY | 2022-02-12 14:31 | XMS_ITS | Encounter Summary ---
:1985 Author Organization [facility] Address [address] [place] [address] Care Team Providers Name Role Phone Unavailable Primary Care Provider Unavailable Encounter Details Date Type Department Care Team Description 11/01/2013 Hospital Encounter [facility]X [facility] Alcides Hill M.D. [address] [place] [phone] (Wo rk) Social History Tobacco Use Types [...] 11/01/2013 8:54 PM CDT ED Discharge Instructions [facility] [address] [place] [address] Name: SILVIA STEELE Date of : 1985 12:00 AM Visit Date: 11/01/2013 8:18 PM [facility] Number: [id number] Address: [address] [place] [address] Primary Care Provider: PCP, ELSEWHERE IMPORTANT: [facility] in [place] would like to thank you for allowing [...] Provider No Appointments found Patient Education Materials: [id number] LACERATION, SCALP [sutures or jose de jesus] [...] Bleeding not controlled by direct pressure ?? [id number] [facility], [address] [place] [address], [place] [address]. All rights reserved. This information is not [...] ride home with a responsible constitution party. ICEDRIC KRISTINA LYNN , or responsible constitution party [...] a responsible constitution party. I, SILVIA STEELE KING , or responsible constitution party have received this information and my questions have been answered. I have discussed any challenges I see with this plan with the nurse or physician. Patient Signature or Responsible Republican/Relationship Date Time Provider Signature Date Time Source: [facility] POWERCHART Document Id: [id number] Janett Dalton L.P.N. - 11/01/2013 8:54 PM CDT ED Depart Summary [facility] Emergency Department / Urgent Care Clinical Discharge Summary PERSON INFORMATION Name SILVIA STEELE Age 28 Years 1985 12:00 AM Sex Female Language Maltese PCP PCP, ELSEWHERE Marital Status Single Visit Id Visit Reason UC - Laceration; Head Laceration Specialty [facility] Type [facility] Outpatient Med Service Urgent Care Referred by Tamar MENDEZ ED/UC Discharge 11/01/2013 8:54 PM Tracking Id [id number] Checkout 11/01/2013 8:54 PM Checkin 11/01/2013 8:18 PM Acuity 5 -Non Urgent Dispo Type * Discharged to Home or Self Care Arrival 11/01/2013 8:18 PM Reg Status Complete LOS 000 00:36 Address: [address] [place] [address] Comment: PROVIDER INFORMATION Provider Role Provider Contact Time ALCIDES HILL MD ED Provider 11/01/13 20:30 JANETT DALTON LPN ED Nurse 11/01/13 20:30 DIAGNOSIS Comment: PATIENT EDUCATION INFORMATION Instructions: LACERATION, Scalp Follow up: With: Address: When: Return to Urgent Care Within As Needed Comments: For suture removal in 10 days With: Address: When: ELSEWHERE PCP Within As Needed Comments: Source: [facility] POWERCHART Document Id: [id number] documented in this encounter Progress Notes Alcides Hill M.D. - 11/01/2013 8:18 PM CDT [id number] CHIEF COMPLAINT/REASON FOR VISIT Head laceration. HISTORY OF PRESENT ILLNESS Patient is a 28-year-old female who came into Urgent [facility] complaining of the top of the headinjured [...] HILL MD On: 11/07/2013 07:17 PM Source: [facility] MHSDOLBEYNONRADSYS Document Id: [id number] documented in this encounter H&P Notes Janett [...] Preferred Communication Mode : Verbal Languages : Maltese JANETT DALTON LPN - 11/01/2013 20:30 CDT [...] by History Adult : None [facility]T DALTON [facility] - 11/01/2013 20:30 CDT Functional Current Daily Living Assistance : None JANETT DALTON SAMPLE DISTRIBUTOR - 11/01/2013 20:30 CDT Psychosocial Domestic Abuse Concerns : None Gnosticism Preference : No Gnosticism Affiliation JANETT DALTON LPN - 11/01/2013 20:30 CDT Advance Directive Advanced Directives : No JANETT DALTON LPN - 11/01/2013 20:30 CDT Educ Needs Learning Style Preference Adult Grid Patient : Printed materials Family : None JANETT DALTON LPN - 11/01/2013 20:30 CDT Source: [employer] Document Id: [id number] CDT!46 documented in this encounter ED Notes [...] DALTON LPN - 11/01/2013 20:53 CDT Source: [employer] Document Id: [id number] CDT!7 Trisha Calderon R.N. - 11/01/2013 8:20 [...] Code: NKP ; Last Updated: 05/15/2013 16:30 MOLDER HELPER; Life Cycle Date: 05/15/2013 ; Life Cycle Status: Active ; Vocabulary: Cerner Diagnoses(Active) UC - Laceration Date: 11/01/2013 ; Diagnosis Type: Reason For Visit ; Confirmation: Complaint of ; Clinical Dx: UC - Laceration ; Classification: Medical ; Clinical Service: Emergency medicine ; Code: PNED ; Probability: 0 ; Diagnosis Code: [id number] Triage Chief Complaint Description : PT HIT THE TOP OF HER SCALP ON AN OPEN WINDOW WHILE OUTSIDE. LACERATION IS BLEEDING. NO LOC. Information Given By : Patient Accompanied By : Alone Mode of Arrival ED : Private vehicle, Ambulatory Track : Medical Languages : Maltese Patient Informed of Triage Location : Urgent Care Treatments Prior to Arrival : None TRISHA CALDERON RN - 11/01/2013 20:27 CDT Pain Assessment Pain Symptoms : No TRISHA CALDERON RN - 11/01/2013 20:27 CDT DENNY DCP GENERIC CODE Tracking Acuity : 5 -Non Urgent Tracking Group : [facility] ED/ TRISHA CALDERON RN - 11/01/2013 20:27 CDT Source: [facility] POWERCHART Document Id: [id number] CDT!16 documented in this encounter Plan of Treatment Not on filedocumented as of this encounter Visit Diagnoses Not on filedocumented in this encounter
--- OUTSIDE RECORDS SUMMARY | 2022-02-12 14:31 | XMS_ITS | Encounter Summary ---
:1985 Author Organization [facility] Address [address] [place] [address] Care Team Providers Name Role Phone Unavailable Primary Care Provider Unavailable Encounter Details Date Type Department Care Team Description 08/13/2004 Hospital Encounter HX [facility] Provider, Historical WOMENSCOUT Social History Tobacco Use Types Packs/Day Years Used Date Smoking Tobacco: Never Assessed Sex Assigned at Date Recorded Not on file documented as of this encounter Plan of Treatment Not on filedocumented as of this encounter Visit Diagnoses Not on filedocumented in this encounter
--- OUTSIDE RECORDS SUMMARY | 2022-02-12 14:31 | XMS_ITS | Encounter Summary ---
:1985 Author Organization [facility] Address [address] [place] [address] Care Team Providers Name Role Phone Unavailable [...]
--- OUTSIDE RECORDS SUMMARY | 2022-02-12 14:31 | XMS_ITS | Encounter Summary ---
:1985 Author Organization [facility] Address [address] [place] [address] Care Team Providers Name Role Phone Unavailable [...] Perrin, C.N.P. - 09/08/2013 3:10 PM CDT [id number] IMPRESSION/REPORT/PLAN Follow up ED visit for yawning. [...] PERRIN CNP On: 09/12/2013 09:19 AM Source: [facility] MHSDOLBEYNCASSIUSSYTanya Document Id: [id number] documented in this encounter Miscellaneous Notes Miscellaneous [...] PERRIN CNP - 09/08/2013 15:56 CDT Source: [facility] [employer] Document Id: [id number] CDT!10 Miscellaneous - Dashawn Pereyra L.P.N. - 09/08/2013 3:16 PM CDT Adult Talent Rep Intake/History Adult Talent Rep Intake/History Entered On: 09/08/2013 15:19 CDT Performed [...] Information Given By : Patient Languages : North Korean DASHAWN PEREYRA - 09/08/2013 15:16 CDT Subjective [...] DASHAWN PEREYRA - 09/08/2013 15:16 CDT Source: [employer] Document Id: [id number] CDT!32 documented in this encounter Plan of Treatment Not on filedocumented as of this encounter Visit Diagnoses Not on filedocumented in this encounter
--- OUTSIDE RECORDS SUMMARY | 2022-02-12 14:31 | XMS_ITS | Encounter Summary ---
:1985 Author Organization [facility] Address [address] [place] [address] Care Team Providers Name Role Phone Unavailable Primary Care Provider Unavailable Encounter Details Date Type Department Care Team Description 05/25/2013 Hospital Encounter HX [facility] Naty Xie M.D. Social History Tobacco Use Types Packs/Day Years Used Date Smoking Tobacco: Never Assessed Sex Assigned at Date Recorded Not on file documented as of this encounter Last Filed Vital Signs Vital Sign Reading Time Taken Comments Blood Pressure 90/62 05/25/2013 8:08 AM BIOSECURITY OFFICER Pulse 70 05/25/2013 8:08 AM BIOSECURITY OFFICER Temperature - - Respiratory Rate 18 05/25/2013 8:08 AM BIOSECURITY OFFICER Oxygen Saturation - - Inhaled Oxygen Concentration - - Weight 106 kg (232 lb 12.9 oz) 05/25/2013 8:08 AM BIOSECURITY OFFICER Height - - Body Mass Index - - documented in this encounter Progress Notes Naty Xie M.D. - 05/25/2013 7:53 AM CST [id number] MED DATE: 05/25/2013 CHIEF COMPLAINT/REASON FOR VISIT A 28-year-old [id number] who returns with abdominal pain. HISTORY OF [...] would cancel that gastrointestinal consult. Naty Xie MD//[facility] #[id number] cc: Electronically Signed By: NATY XIE MD On: 05/27/2013 12:11 PM Source: [facility] FSHDICTAPHONESYS Document Id: [id number] ECURITY OFFICER documented in this encounter Miscellaneous Notes Miscellaneous - Naty Xie M.D. - 05/25/2013 9:29 AM CST Ambulatory Patient Summary [address] [address] Visit Information Name: RADHA STEELE [facility] Number: [id number] Current Date: 05/25/2013 09:29:31 Physicians [...] Oral, once a day New Routed to [address] [address] Stop Taking the Following Medications: [...] appointment detail needed. Your Goals/Additional instructions: Source: [facility] POWERCHART Document Id: [id number] ECURITY OFFICER Miscellaneous - Naty Xie M.D. - 05/25/2013 9:29 AM CST [place] [address] Visit Information Name: RADHA STEELE [facility] Number: [id number] Visit Date: 05/25/2013 09:29:29 Attending [...] in case of emergency. Additional Information: Source: [facility] POWERCHART Document Id: [id number] ECURITY OFFICER Miscellaneous - Maria Luisa Rios L.P.N. 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 Intake/History Adult Binder And Wrapper Packer Intake/History Entered On: 05/25/2013 8:09 BIOSECURITY OFFICER Performed On: 05/25/2013 8:08 BIOSECURITY OFFICER by MARIA LUISA RIOS LPN Intake Chief [...] MARIA LUISA RIOS LPN - 05/25/2013 8:08 BIOSECURITY OFFICER General Info Information Given By : Patient Preferred Communication Mode : Verbal, Written Languages : Kiswahili MARIA LUISA RIOS LPN - 05/25/2013 8:08 BIOSECURITY OFFICER Subjective Pain Symptoms : Yes MARIA LUISA RIOS LPN - 05/25/2013 8:08 BIOSECURITY OFFICER Pain Pain Assessment Grid Pain 1 Location : Abdomen Intensity : 7 Time Pattern : Acute, Constant Onset : Gradual Quality : Aching Pain Radiation : Yes Aggravating Factors : Breathing, Movement Alleviating Factors : None Associated Symptoms : None Interventions : MD notified MARIA LUISA RIOS LPN - 05/25/2013 8:08 BIOSECURITY OFFICER Dependent Habits Tobacco Use/Currently Using : Yes Exposure to Tobacco Smoke : Patient smokes Smoking Status : Current every day smoker MARI ALUISA RIOS LPN - 05/25/2013 8:08 BIOSECURITY OFFICER Source: [facility] POWERCHART Document Id: [id number] BIOSECURITY OFFICER!38 ECURITY OFFICER documented in this encounter Plan of Treatment Not on filedocumented as of this encounter Visit Diagnoses Not on filedocumented in this encounter
--- OUTSIDE RECORDS SUMMARY | 2022-02-12 14:31 | XMS_ITS | Encounter Summary ---
:1985 Author Organization [facility] Address [address] [place] [address] Care Team Providers Name Role Phone Unavailable [...]
--- OUTSIDE RECORDS SUMMARY | 2022-02-12 14:31 | XMS_ITS | Encounter Summary ---
:1985 Author Organization [facility] Address [address] [place] [address] Care Team Providers Name Role Phone Unavailable [...]
--- OUTSIDE RECORDS SUMMARY | 2022-02-12 14:32 | XMS_ITS | Encounter Summary ---
:1985 Author Organization [facility] Address [address] [place] [address] Care Team Providers Name Role Phone Unavailable Primary Care Provider Unavailable Encounter Details Date Type Department Care Team Description 01/15/2004 Hospital Encounter HX [facility] Kimmy Beth, A.R.N.P., R.N. [address] [place] [address] (Wo rk) Social History Tobacco Use Types Packs/Day Years Used Date Smoking Tobacco: Never Assessed Sex Assigned at Date Recorded Not on file documented as of this encounter Plan of Treatment Not on filedocumented as of this encounter Visit Diagnoses Not on filedocumented in this encounter
--- OUTSIDE RECORDS SUMMARY | 2022-02-12 14:32 | XMS_ITS | Encounter Summary ---
:1985 Author Organization [facility] Address [address] [place] [address] Care Team Providers Name Role Phone Unavailable [...]
--- OUTSIDE RECORDS SUMMARY | 2022-02-12 14:32 | XMS_ITS | Encounter Summary ---
:1985 Author Organization [facility] Address [address] [place] [address] Care Team Providers Name Role Phone Unavailable Primary Care Provider Unavailable Encounter Details Date Type Department Care Team Description 05/22/2004 Hospital Encounter HX [facility] Provider, Histor ical Social History Tobacco Use Types Packs/Day Years Used Date Smoking Tobacco: Never Assessed Sex Assigned at Date Recorded Not on file documented as of this encounter Plan of Treatment Not on filedocumented as of this encounter Visit Diagnoses Not on filedocumented in this encounter
--- OUTSIDE RECORDS SUMMARY | 2022-02-12 14:32 | XMS_ITS | Encounter Summary ---
:1985 Author Organization [facility] Address [address] [place] [address] Care Team Providers Name Role Phone Unavailable [...]
--- OUTSIDE RECORDS SUMMARY | 2022-02-12 14:32 | XMS_ITS | Encounter Summary ---
:1985 Author Organization [facility] Address [address] [place] [address] Care Team Providers Name Role Phone Unavailable Primary Care Provider Unavailable Encounter Details Date Type Department Care Team Description 01/15/2004 Hospital Encounter HX [facility] Nicole Hill M.D. [address] [place] [phone] (Wo rk) Social History Tobacco Use Types Packs/Day Years Used Date Smoking Tobacco: Never Assessed Sex Assigned at Date Recorded Not on file documented as of this encounter Plan of Treatment Not on filedocumented as of this encounter Visit Diagnoses Not on filedocumented in this encounter
--- OUTSIDE RECORDS SUMMARY | 2022-02-12 14:32 | XMS_ITS | Encounter Summary ---
:1985 Author Organization [facility] Address [address] [place] [address] Care Team Providers Name Role Phone Unavailable Primary Care Provider Unavailable Encounter Details Date Type Department Care Team Description 12/26/2003 Hospital Encounter HX [facility] Alice Goncalves, N.P., R.N. [address] [place], [place] [address] (Wo rk) Social History Tobacco Use Types Packs/Day Years Used Date Smoking Tobacco: Never Assessed Sex Assigned at Date Recorded Not on file documented as of this encounter Plan of Treatment Not on filedocumented as of this encounter Visit Diagnoses Not on filedocumented in this encounter
--- OUTSIDE RECORDS SUMMARY | 2022-02-12 14:32 | XMS_ITS | Encounter Summary ---
:1985 Author Organization [facility] Address [address] [place] [address] Care Team Providers Name Role Phone Unavailable [...]
--- OUTSIDE RECORDS SUMMARY | 2022-02-12 14:32 | XMS_ITS | Encounter Summary ---
:1985 Author Organization [facility] Address [address] [place] [address] Care Team Providers Name Role Phone Unavailable [...]
--- OUTSIDE RECORDS SUMMARY | 2022-02-12 14:32 | XMS_ITS | Encounter Summary ---
:1985 Author Organization [facility] Address [address] [place] [address] Care Team Providers Name Role Phone Unavailable [...]
--- OUTSIDE RECORDS SUMMARY | 2022-02-12 14:32 | XMS_ITS | Encounter Summary ---
:1985 Author Organization [facility] Address [address] [place] [address] Care Team Providers Name Role Phone Unavailable Primary Care Provider Unavailable Encounter Details Date Type Department Care Team Description 04/28/2004 Hospital Encounter HX [facility] Provider, Ángel casiano Social History Tobacco Use Types Packs/Day Years Used Date Smoking Tobacco: Never Assessed Sex Assigned at Date Recorded Not on file documented as of this encounter Plan of Treatment Not on filedocumented as of this encounter Procedures Procedure Name Priority Date/Time Associated Diagnosis Comme nts US OB GREATER THAN Routine 04/28/2004 11:01 AM Re sults for this 14 WEEKS PRODUCTION GRADER procedure are i n the results section. documented in this encounter Results US OB Greater than 14 weeks (04/28/2004 11:01 AM PRODUCTION GRADER) Anatomical Region Laterality Modality Ultrasound Specimen (Source) Anatomical Collection Method Collection Time Re ceived Time Location / / Volume Laterality 04/28/2004 11:01 AM PRODUCTION GRADER Narrative 04/28/2004 11:01 AM PRODUCTION GRADER Originally Signed By Contributor_system, [facility]_HX_RAD_SYS OB ULTRASOUND Indication: Supervise first . Fetus: ??Number: 1 ?? Position: Variable EDC: August, ??LMP: 25 December 2003 Heart Activity: Heart rate, 153 beats pe r minute Activity: Present Amniotic Fluid: Adequate Placenta Position/Location: Anterior Estimated Weight: 250 +/- 33 gm. BPD: ?4.1 cm ??weeks: 18 , 2 days Head Circ: ??15.1 cm ??weeks: 18 , one d ay Abd Circ: ??12.4 cm ??weeks: 18 , 0 days Femur: ?? 2.7 cm ??weeks: 18 , one day Impression: Single live intrauterine fet us present in a variable presentation with size compatible with p atient's age. Electronically Signed 04/28/2004 Reported By: Geo Hernandez ? Transcribed: 04/28/2004 ([id number]) ??[facility].AU CC: Breann Pereyra ??CNRuperto Procedure Note Provider, Historical - 10/09/2016Formatt ing of this note might be different from the original. Originally Signed By Contributor_system, [facility]_HX_RAD_SYS OB ULTRASOUND Indication: Supervise first . Fetus: Number: 1 Position: Variable EDC: August, LMP: 25 December 2003 Heart Activity: Heart rate, 153 beats pe r minute Activity: Present Amniotic Fluid: Adequate Placenta Position/Location: Anterior Estimated Weight: 250 +/- 33 gm. BPD: 4.1 cm weeks: 18 , 2 days Head Circ: 15.1 cm weeks: 18 , one day Abd Circ: 12.4 cm weeks: 18 , 0 days Femur: 2.7 cm weeks: 18 , one day Impression: Single live intrauterine fet us present in a variable presentation with size compatible with p atient's age. Electronically Signed 04/28/2004 Reported By: Geo Hernandez MD Transcribed: 04/28/2004 (1231) [facility].AU CC: Breann Pereyra CNM Historical Provider IMG OB US PROCEDURES documented in this encounter Visit Diagnoses Not on filedocumented in this encounter
--- OUTSIDE RECORDS SUMMARY | 2022-02-12 14:32 | XMS_ITS | Encounter Summary ---
:1985 Author Organization [facility] Address [address] [place] [address] Care Team Providers Name Role Phone Unavailable [...]
--- OUTSIDE RECORDS SUMMARY | 2022-02-12 14:32 | XMS_ITS | Encounter Summary ---
:1985 Author Organization [facility] Address [address] [place] [address] Care Team Providers Name Role Phone Unavailable [...]
--- OUTSIDE RECORDS SUMMARY | 2022-02-12 14:32 | XMS_ITS | Encounter Summary ---
:1985 Author Organization [facility] Address [address] [place] [address] Care Team Providers Name Role Phone Unavailable Primary Care Provider Unavailable Encounter Details Date Type Department Care Team Description 10/17/2003 Hospital Encounter HX [facility] Celia Le D.O. Social History Tobacco Use Types Packs/Day Years Used Date Smoking Tobacco: Never Assessed Sex Assigned at Date Recorded Not on file documented as of this encounter Plan of Treatment Not on filedocumented as of this encounter Visit Diagnoses Not on filedocumented in this encounter
--- OUTSIDE RECORDS SUMMARY | 2022-02-12 14:32 | XMS_ITS | Encounter Summary ---
:1985 Author Organization [facility] Address [address] [place] [address] Care Team Providers Name Role Phone Unavailable [...]
--- OUTSIDE RECORDS SUMMARY | 2022-02-12 14:33 | XMS_ITS | Encounter Summary ---
:1985 Author Organization [facility] Address [address] [place] [address] Care Team Providers Name Role Phone Unavailable Primary Care Provider Unavailable Encounter Details Date Type Department Care Team Description 09/20/2002 Hospital Encounter HX [facility] Provider, Historical [facility] Social History Tobacco Use Types Packs/Day Years Used Date Smoking Tobacco: Never Assessed Sex Assigned at Date Recorded Not on file documented as of this encounter Plan of Treatment Not on filedocumented as of this encounter Visit Diagnoses Not on filedocumented in this encounter
--- OUTSIDE RECORDS SUMMARY | 2022-02-12 14:33 | XMS_ITS | Encounter Summary ---
:1985 Author Organization [facility] Address [address] [place] [address] Care Team Providers Name Role Phone Unavailable Primary Care Provider Unavailable Encounter Details Date Type Department Care Team Description 10/04/2002 Hospital Encounter HX [facility] Alice Goncalves, N.P., R.N. [address] [place], [place] [address] (Wo rk) Social History Tobacco Use Types Packs/Day Years Used Date Smoking Tobacco: Never Assessed Sex Assigned at Date Recorded Not on file documented as of this encounter Plan of Treatment Not on filedocumented as of this encounter Visit Diagnoses Not on filedocumented in this encounter
--- OUTSIDE RECORDS SUMMARY | 2022-02-12 14:33 | XMS_ITS | Encounter Summary ---
:1985 Author Organization [facility] Address [address] [place] [address] Care Team Providers Name Role Phone Unavailable Primary Care Provider Unavailable Encounter Details Date Type Department Care Team Description 09/09/2002 Hospital Encounter HX [facility] ED ProviderLaurie Social History Tobacco Use Types Packs/Day Years Used Date Smoking Tobacco: Never Assessed Sex Assigned at Date Recorded Not on file documented as of this encounter Plan of Treatment Not on filedocumented as of this encounter Visit Diagnoses Not on filedocumented in this encounter
--- OUTSIDE RECORDS SUMMARY | 2022-02-12 14:33 | XMS_ITS | Encounter Summary ---
:1985 Author Organization [facility] Address [address] [place] [address] Care Team Providers Name Role Phone Unavailable [...]
--- OUTSIDE RECORDS SUMMARY | 2022-02-12 14:33 | XMS_ITS | Encounter Summary ---
:1985 Author Organization [facility] Address [address] [place] [address] Care Team Providers Name Role Phone Unavailable [...]
--- OUTSIDE RECORDS SUMMARY | 2022-02-12 14:33 | XMS_ITS | Encounter Summary ---
:1985 Author Organization [facility] Address [address] [place] [address] Care Team Providers Name Role Phone Unavailable [...]
--- OUTSIDE RECORDS SUMMARY | 2022-02-12 14:33 | XMS_ITS | Encounter Summary ---
:1985 Author Organization [facility] Address [address] [place] [address] Care Team Providers Name Role Phone Unavailable Primary Care Provider Unavailable Encounter Details Date Type Department Care Team Description 09/04/2003 Hospital Encounter [facility]X [facility] Asael Hernandez M.D. Social History Tobacco Use Types Packs/Day Years Used Date Smoking Tobacco: Never Assessed Sex Assigned at Date Recorded Not on file documented as of this encounter Plan of Treatment Not on filedocumented as of this encounter Visit Diagnoses Not on filedocumented in this encounter
--- OUTSIDE RECORDS SUMMARY | 2022-02-12 14:33 | XMS_ITS | Encounter Summary ---
:1985 Author Organization [facility] Address [address] [place] [address] Care Team Providers Name Role Phone Unavailable [...]
--- OUTSIDE RECORDS SUMMARY | 2022-02-12 14:33 | XMS_ITS | Encounter Summary ---
:1985 Author Organization [facility] Address [address] [place] [address] Care Team Providers Name Role Phone Unavailable Primary Care Provider Unavailable Encounter Details Date Type Department Care Team Description 10/18/2002 Hospital Encounter HX [facility] Ham Gandara, N.P., R.N. [address] [place], [place] [address] (Wo rk) Social History Tobacco Use Types Packs/Day Years Used Date Smoking Tobacco: Never Assessed Sex Assigned at Date Recorded Not on file documented as of this encounter Plan of Treatment Not on filedocumented as of this encounter Visit Diagnoses Not on filedocumented in this encounter
--- OUTSIDE RECORDS SUMMARY | 2022-02-12 14:33 | XMS_ITS | Encounter Summary ---
:1985 Author Organization [facility] Address [address] [place] [address] Care Team Providers Name Role Phone Unavailable Primary Care Provider Unavailable Encounter Details Date Type Department Care Team Description 09/28/[address] [facility] David Sandoval M.D. [address] [place] [address] (Wo rk) Social History Tobacco Use Types Packs/Day Years Used Date Smoking Tobacco: Never Assessed Sex Assigned at Date Recorded Not on file documented as of this encounter Plan of Treatment Not on filedocumented as of this encounter Visit Diagnoses Not on filedocumented in this encounter
--- OUTSIDE RECORDS SUMMARY | 2022-02-12 14:33 | XMS_ITS | Encounter Summary ---
:1985 Author Organization [facility] Address [address] [place] [address] Care Team Providers Name Role Phone Unavailable Primary Care Provider Unavailable Encounter Details Date Type Department Care Team Description 12/09/2002 Hospital Encounter HX [facility] ED ProviderLaurie Social History Tobacco Use Types Packs/Day Years Used Date Smoking Tobacco: Never Assessed Sex Assigned at Date Recorded Not on file documented as of this encounter Plan of Treatment Not on filedocumented as of this encounter Visit Diagnoses Not on filedocumented in this encounter
--- OUTSIDE RECORDS SUMMARY | 2022-02-12 14:33 | XMS_ITS | Encounter Summary ---
:1985 Author Organization [facility] Address [address] [place] [address] Care Team Providers Name Role Phone Unavailable Primary Care Provider Unavailable Encounter Details Date Type Department Care Team Description 10/04/2002 Hospital Encounter HX [facility] Alice Goncalves, N.P., R.N. [address] [place], [place] [address] (Wo rk) Social History Tobacco Use Types Packs/Day Years Used Date Smoking Tobacco: Never Assessed Sex Assigned at Date Recorded Not on file documented as of this encounter Plan of Treatment Not on filedocumented as of this encounter Visit Diagnoses Not on filedocumented in this encounter
== END 2022-02-12 14:27 | disposition home or self-care (01) ==
LOC: MRI 14:27
PROVIDERS: Visit Provider Orthopaedic Surgery Sports Medicine
DX: M25.561 Pain in right knee (principal); S80.01XD Contusion of right knee, subsequent encounter
CPT/HCPCS: 73721

== ENCOUNTER 2023-01-26 10:03 | Outpatient (CLI) | payer SELFPAY | END 2023-01-26 10:04 | disposition home or self-care (01) | PROVIDERS: Visit Provider Nurse Practitioner Family | DX: R05.9 Cough, unspecified (principal); T14.8XXA Other injury of unspecified body region, initial encounter | CPT/HCPCS: 85025; 85610; 85651; 85730; 86140 ==

== ENCOUNTER 2023-01-29 16:34 | Outpatient (CLI) | payer SELFPAY ==
--- NOTE | 2023-02-04 13:01 | ONC.NURNOTE ---
Patient was referred to us for bruising on 02/01/2023 by PCP. This was discussed with global transportation manager and she agrees with workup from PCP, but does not see need for hematology referral at this time. If something changes with patient labs in the future, she can refer at that time. Left message for PCP and notified patient as well.
== END 2023-01-29 16:35 | disposition home or self-care (01) ==
PROVIDERS: PCP Nurse Practitioner Family; Visit Provider Nurse Practitioner Family
DX: T14.8XXA Other injury of unspecified body region, initial encounter (principal)
CPT/HCPCS: 85610

== ENCOUNTER 2023-02-01 09:33 | Outpatient (CLI) | payer OTHER, SELFPAY ==
--- NOTE | 2023-02-01 09:45 | MR_ITS ---
[facility] [address] [facility] [address] Phone:?[phone] Fax:?[phone] Referring Physician Information: Bridgette Ledesma [address] [facility] [address] Phone:?[phone] Fax:?[phone] Patient:Chani May D.O.B:?1985 Sex:?Female Phone:?[phone] [facility] MRN:?[id number] Exam Date:?02/01/2023 EXAM: MRI of the LEFT KNEE, without contrast CLINICAL HISTORY: Left knee pain. Evaluate for meniscal injury. Worker's Compensation. COMPARISONS: Plain radiographs 10/20/2022. Plain radiographs 12/25/2021. TECHNICAL: MR sequences of the left knee: sagittals: PD, PDFS coronals: PD, STIR axials: PD, T2 FS CONTRAST: None SEDATION: None FINDINGS: Bones: No fracture, bone marrow contusion, or other suspicious bone marrow signal abnormality. Patellofemoral joint: Cartilage: Intact. Retinacula: The medial and lateral retinacula are intact. Fat pads: The infrapatellar, quadriceps, and prefemoral fat pads are unremarkable. Knee joint: Effusion: Physiologic amount of joint fluid. Popliteal cyst: None. Intra-articular bodies: None. Posteromedial corner: The semimembranosus and pes anserine tendons are intact. Medial compartment: Medial meniscus: Intact. Cartilage: Intact. Lateral compartment: Lateral meniscus: Intact. Cartilage: Intact. Ligaments: Anterior cruciate ligament: Intact. Posterior cruciate ligament: Intact. Medial collateral ligament: Intact. Posterior oblique ligament: Intact. Fibular collateral ligament: Intact. Posterolateral corner: The distal biceps femoris tendon, iliotibial band, popliteus tendon, popliteus muscle, popliteofibular ligament, and arcuate ligament are intact. Extensor mechanism: Patellar tendon: Intact. Quadriceps tendon: Intact. IMPRESSION: Unremarkable MRI of the left knee without osseous, ligamentous, tendinous, meniscal, or chondral pathology. RCB Electronically signed on 02/01/2023 3:30:00 PM by Nelson Flores M.D.
== END 2023-02-01 09:34 | disposition home or self-care (01) ==
LOC: MRI 09:34
PROVIDERS: PCP Nurse Practitioner Family; Visit Provider Nurse Practitioner Family
DX: M25.562 Pain in left knee (principal)
CPT/HCPCS: 73721

== ENCOUNTER 2023-06-30 07:51 | Outpatient (CLI) | payer OTHER, SELFPAY ==
--- NOTE | 2023-06-30 09:15 | MR_ITS ---
Patient: RADHA WELLER Facility:?[facility] Patient ID:?[id number] Site Patient ID:?[id number]. Site :?1985 Study:?MRI-Head MRA W/O-06/30/2023 12:24:32 PM Ordering Physician:?EVELYNE KENNEDY Final Report: INDICATION: Paresthesia of skin. TECHNIQUE: MRA head: Pedn-ot-xusspd imaging acquired. MRA neck: Irut-cc-graors imaging acquired. COMPARISON: None. FINDINGS MRA head: The internal carotid, middle cerebral, and anterior cerebral arteries are widely patent. The vertebral, basilar, and posterior cerebral arteries are widely patent. No intracranial aneurysm or high-flow vascular malformation. MRA neck: The visualized common carotid arteries are widely patent. The visualized internal carotid arteries are widely patent. The right vertebral artery is dominant. The visualized vertebral arteries are widely patent. IMPRESSION: Unremarkable MRA of the head and neck. Dictated by Ian Rangel MD @ 06/30/2023 4:54:50 PM Signed by:?Ian Rangel MD @06/30/2023 4:54:50 PM (Electronic Signature)
--- NOTE | 2023-06-30 10:00 | MR_ITS ---
Patient: RADHA WELLER Facility:?[facility] Patient ID:?[id number] Site Patient ID:?[id number]. Site :?1985 Study:?MRI-Neck Angio W/O-06/30/2023 12:25:53 PM Ordering Physician:?EVELYNE KENNEDY Final Report: INDICATION: Paresthesia of skin. TECHNIQUE: MRA head: Tcqc-en-zxfhse imaging acquired. MRA neck: Dmhb-si-uflydg imaging acquired. COMPARISON: None. FINDINGS MRA head: The internal carotid, middle cerebral, and anterior cerebral arteries are widely patent. The vertebral, basilar, and posterior cerebral arteries are widely patent. No intracranial aneurysm or high-flow vascular malformation. MRA neck: The visualized common carotid arteries are widely patent. The visualized internal carotid arteries are widely patent. The right vertebral artery is dominant. The visualized vertebral arteries are widely patent. IMPRESSION: Unremarkable MRA of the head and neck. Dictated by Ian Rangel MD @ 06/30/2023 4:55:22 PM Signed by:?Ian Rangel MD @06/30/2023 4:55:22 PM (Electronic Signature)
== END 2023-06-30 07:52 | disposition home or self-care (01) ==
LOC: RAD 07:52
PROVIDERS: PCP Nurse Practitioner Family; Visit Provider Nurse Practitioner Family
DX: R55 Syncope and collapse (principal); R20.2 Paresthesia of skin; R42 Dizziness and giddiness
CPT/HCPCS: 70544; 70547; 93225; 93226; 93306

== ENCOUNTER 2024-08-08 10:08 | Outpatient (CLI) | payer OTHER, SELFPAY | END 2024-08-08 10:09 | disposition home or self-care (01) | PROVIDERS: PCP Nurse Practitioner Family; Visit Provider Nurse Practitioner Family | DX: R42 Dizziness and giddiness (principal); R53.1 Weakness; R35.0 Frequency of micturition; R41.3 Other amnesia | CPT/HCPCS: 80053; 80306; 82306; 82607; 84443; 85025; 87086 ==

== ENCOUNTER 2024-08-17 08:54 | Outpatient (CLI) | payer MEDICAID, SELFPAY ==
--- NOTE | 2024-08-17 09:15 | CRLHL7_ITS ---
For Patients: As a result of the Century Cures Act, medical imaging exams and procedure reports are released immediately into your electronic medical record. You may view this report before your referring provider. If you have questions, please contact your health care provider. INDICATION: Weakness. Memory loss. Comparison none. Technique: Multiplanar T1, T2, FLAIR and diffusion-weighted imaging. FINDINGS: Normal brain parenchymal morphology and signal intensity. No intracranial hemorrhage. No abnormal ventricular dilatation. Intracranial vascular flow voids are preserved. No mass or mass effect. No midline shift. No restricted diffusion to suggest acute ischemia. No susceptibility artifact of remote hemorrhage. Bilateral orbits are unremarkable. Normal appearing sella. Visualized paranasal sinuses are unremarkable. Right mastoid effusion IMPRESSION: 1. No acute intracranial abnormality. 2. Normal brain parenchymal morphology and signal intensity. 3. Right mastoid effusion Dictated by Lyle Escalante MD @ 08/17/2024 11:13:14 AM (Electronically Signed)
== END 2024-08-17 08:55 | disposition home or self-care (01) ==
LOC: MRI 08:56
PROVIDERS: PCP Nurse Practitioner Family; Visit Provider Nurse Practitioner Family
DX: R29.90 Unspecified symptoms and signs involving the nervous system (principal); R53.1 Weakness
CPT/HCPCS: 70551

== ENCOUNTER 2024-09-04 14:57 | Outpatient (CLI) | payer MEDICAID, SELFPAY | END 2024-09-04 14:58 | disposition home or self-care (01) | PROVIDERS: PCP Nurse Practitioner Family; Visit Provider Nurse Practitioner Family | DX: M25.50 Pain in unspecified joint (principal); M79.10 Myalgia, unspecified site; M54.2 Cervicalgia | CPT/HCPCS: 82550; 83735; 84550; 85651; 86038; 86140; 86200; 86431 ==